=== PATIENT | female | born 1965 | race Caucasian/White ===

== ENCOUNTER 2020-07-16 18:09 | Emergency (ER) | payer OTHER, SELFPAY ==
[2020-07-17 07:05] LABS: Glucose, Whole Blood 120 mg/dL (60-115)
== END 2020-07-16 18:28 | disposition left against medical advice (07) ==
PROVIDERS: Internal Medicine; Emergency Provider Emergency Medicine
DX: F41.9 Anxiety disorder, unspecified (principal); E16.2 Hypoglycemia, unspecified
CPT/HCPCS: 82947; 99281

== ENCOUNTER → 2020-08-09 10:41 | Outpatient (BNVA) | payer OTHER, SELFPAY | PROVIDERS: PCP Hospitalist; Referring Provider Hospitalist; Visit Provider Nurse Practitioner | DX: K59.04 Chronic idiopathic constipation (principal); K21.9 Gastro-esophageal reflux disease without esophagitis; Z79.899 Other long term (current) drug therapy | CPT/HCPCS: 99212 ==

== ENCOUNTER 2020-08-14 15:49 | Emergency (ER) | payer OTHER, SELFPAY ==
[2020-08-14 16:59] VITALS: BP 134/55; PULSE 75; RESP 18; TEMP 36.1; BMI 38.9
--- NOTE | 2020-08-14 17:08 | ECG_ITS ---
Test Reason : CHEST PAIN Blood Pressure : / mmHG Vent. Rate : 066 BPM Atrial Rate : 066 BPM P-R Int : 134 ms QRS Dur : 080 ms QT Int : 432 ms P-R-T Axes : -13 -05 005 degrees QTc Int : 452 ms Normal sinus rhythm Minimal voltage criteria for LVH, may be normal variant Borderline ECG When compared with ECG of 08-JAN-2020 12:45, No significant change was found Referred By: Opal Thomson Electronically Signed By:VINNIE MCKINLEY MD
[2020-08-14 19:42] VITALS: BP 147/72; PULSE 76; RESP 18; O2SAT 94
--- NOTE | 2020-08-14 19:43 | XR_ITS ---
EXAMINATION: XR CHEST CLINICAL INFORMATION: Chest pain COMPARISON: Chest x-ray 01/08/2020 TECHNIQUE: Frontal portable view of the chest was obtained. 7:58 PM FINDINGS: Asymmetric elevation of right diaphragm compared to left. No pulmonary vascular congestion. No airspace opacity or pleural effusion. Cardiac and mediastinal contours are unchanged. XR/XR chest 1V IMPRESSION: No acute abnormality the chest.
[2020-08-14 19:56] LABS: MANUAL DIFF FLAG NO
[2020-08-14 19:58] LABS: Basophils Percent Auto 0.4 % (0-2); Eosinophils Absolute Auto 0.4 X10*3/uL (0.0-0.4); Eosinophils Percent Auto 3.4 % (0-4); Hematocrit 42.5 % (37-47); Hemoglobin 12.8 g/dl (12.0-16.0); Imm Gran Abs Auto 0.03 X10*3/uL (0.00-0.03); Imm Gran Pct Auto 0.3 % (0.0-0.4); Lymphocytes Absolute Auto 2.7 X10*3/uL (1.2-4.9); Lymphocytes Percent Auto 25.1 % (20-40); Mean Corpuscular HGB Conc 30.1 g/dl (31.0-35.0); Mean Corpuscular Hemoglobin 23.8 pg (27.0-33.0); Mean Corpuscular Volume 79.1 fL (80-98); Mean Platelet Volume 11.1 fL (9.4-12.3); Monocytes Absolute Auto 0.7 X10*3/uL (0.1-1.2); Monocytes Percent Auto 6.2 % (2-11); Neutrophils Absolute Auto 6.8 X10*3/uL (2.0-8.3); Neutrophils Percent Auto 64.6 % (45-73); Platelet Count 233 X10*3/uL (160-400); Red Blood Count 5.37 X10*6/uL (4.20-5.50); Red Cell Distribution Width 16.9 % (11.0-16.0); White Blood Count 10.6 X10*3/uL (4.8-10.8)
[2020-08-14 20:31] LABS: Anion Gap 19 (12-20); Blood Urea Nitrogen 20 mg/dL (9-16); Calcium 8.2 mg/dL (8.4-10.2); Carbon Dioxide 23 mmol/L (22-29); Chloride 102 mmol/L (96-108); Creatinine Clr Calc Pharmacy 102.9; Estimated Glomerular Filt Rate > 60; Glucose Random 89 mg/dL (60-115); Potassium 4.1 mmol/l (3.3-5.1); Sodium 140 mmol/L (135-145)
[2020-08-14 20:39] LABS: Troponin-I High Sensitivity < 3.5 ng/L (<3.5-17.0)
--- NOTE | 2020-08-14 21:27 | CT_ITS ---
EXAMINATION: CT ABDOMEN AND PELVIS WITHOUT CONTRAST CLINICAL INFORMATION: Right upper quadrant pain and flank pain COMPARISON: Ultrasound abdomen 06/06/2020 CT abdomen pelvis 03/09/2018 TECHNIQUE: Multidetector volumetric imaging was performed from the superior aspect of the liver through the pubic symphysis. Sagittal and coronal reformatted images were obtained on the technologist's workstation. This CT examination was performed using dose optimization techniques as appropriate, variously including the following: *Automated exposure control *Adjustment of mA and/or kV according to patient size (this includes techniques or standardized protocols for targeted exams where dose is matched to indication/reason for exam; i.e. extremities or head) *Use of iterative reconstruction technique DLP: 1033 mGy-cm FINDINGS: LUNG BASES: The visualized lung bases are unremarkable. LIVER, GALLBLADDER, AND BILIARY TREE: The liver is enlarged measuring almost 19 cm in length and demonstrates marked hepatic steatosis. No focal liver mass or bile duct dilatation is seen. Status post cholecystectomy with clips in the gallbladder fossa. PANCREAS: Unremarkable. SPLEEN: Unremarkable. ADRENAL GLANDS: Unremarkable. KIDNEYS AND URETERS: The kidneys are normal in size, shape, and attenuation. No hydronephrosis, hydroureter, or calculi seen. No perinephric stranding. BLADDER: Empty and cannot be evaluated GASTROINTESTINAL TRACT: The small and large bowel are unremarkable. The appendix is unremarkable. ABDOMINAL WALL: No significant hernia is appreciated. LYMPH NODES: No retroperitoneal lymphadenopathy. VASCULAR: No aortic aneurysm. The left renal vein is retroaortic. PELVIC VISCERA: Unremarkable. OSSEOUS STRUCTURES: Mild degenerative changes noted in the visualized lower thoracic spine. CT/CT abdomen pelvis wo con IMPRESSION: 1. A cause for the patient's right upper quadrant pain and flank pain has not been found. 2. Mildly enlarged fatty liver.
[2020-08-14 21:42] VITALS: BP 145/77; PULSE 77; RESP 16
[2020-08-14 21:56] LABS: Glucose Urine UA NEG (NEG); Leukocyte Esterase Urine NEG (NEG); Nitrite Urine NEG (NEG); PH 5.5 (5.0-8.0); Specific Gravity - Urine >= 1.030 (1.005-1.025); Urine Blood NEG (NEG); Urine Ketones NEG (NEG); Urine Protein NEG (NEG-TRACE)
[2020-08-14 21:57] LABS: Appearance Urine CLEAR; Color Urine YELLOW
[2020-08-14 22:00] VITALS: PULSE 86; RESP 18; O2SAT 100
[2020-08-14 22:25] LABS: Alanine Aminotransferase 39 U/L (0-31); Alkaline Phosphatase 126 U/L (39-117); Aspartate Amino Transferase 28 U/L (5-31); Bilirubin Direct 0.2 mg/dL (0.0-0.5); Bilirubin Total 0.5 mg/dL (0.0-1.0); Lipase 53 U/L (8-78); Total Protein 7.2 g/dL (6.5-8.0)
--- NOTE | 2020-08-14 22:25 | ED_ITS ---
HPI - General Adult General Chief complaint: General Medical Stated complaint: chest pain Time Seen by Provider: 08/14/20 19:57 Source: patient Mode of arrival: ambulatory Limitations: language barrier History of Present Illness HPI narrative: 55-year-old female with past medical history of GERD, vertigo, edema, anxiety, migraines, hypertension, chronic pain, asthma and small-bowel motility disorder presents with chest pain, right upper quadrant abdominal pain, and right flank pain. she has had this pain for several days states the pain comes and goes, and cannot differentiate if the chest pain precedes the abdominal pain. She does have chronic history of abdominal pain and chest pain. she does not report any palpitations, shortness of breath, abdominal distention, dysuria, hematuria, fevers, chills, headaches and changes in vision. Onset (ago): day(s) Location: abdomen Radiation: non-radiation Severity: moderate and similar to prior episodes Severity scale (1-10): 6 Quality: aching Pain Consistency: constant Relieving factors: none Exacerbating factors: movement Associated symptoms: denies other symptoms Treatments prior to arrival: none Related Data Home Medications Medication Instructions Recorded Confirmed albuterol sulfate mg INHALATION TID PRN 07/04/20 07/04/20 buspirone 15 mg tablet 15 mg PO BID 07/04/20 07/04/20 diphenhydramine HCl 25 mg capsule 25 mg PO BEDTIME 07/04/20 07/04/20 fluticasone propionate 110 INHALATION 07/04/20 07/04/20 mcg/actuation HFA aerosol inhaler fluticasone propionate 50 INTRANASAL 07/04/20 07/04/20 mcg/actuation nasal spray,suspension hydrochlorothiazide 12.5 mg capsule 12.5 mg PO DAILY 07/04/20 07/04/20 hydrocortisone 1 % topical cream 1 applic TOPICAL TID PRN 07/04/20 07/04/20 loratadine 10 mg tablet 10 mg PO DAILY 07/04/20 07/04/20 metoprolol tartrate 50 mg tablet 50 mg PO BID 07/04/20 07/04/20 simethicone 180 mg capsule mg PO 07/04/20 07/04/20 zolmitriptan 5 mg tablet mg PO 07/04/20 07/04/20 famotidine 40 mg tablet 40 mg PO BID 08/09/20 08/09/20 metoclopramide HCl 10 mg tablet mg PO .tidac tab 08/09/20 08/09/20 Previous Rx's Medication Instructions Recorded metformin 500 mg tablet 500 mg PO BID 30 Days #60 tab 07/09/20 ondansetron HCl 8 mg tablet 8 mg PO DAILY PRN 30 Days #30 tab 07/10/20 furosemide 40 mg tablet 40 mg PO DAILY 30 Days #30 tab 07/19/20 meclizine 25 mg tablet 25 mg PO TID 30 Days #90 tab 08/05/20 hyoscyamine sulfate 0.125 mg tablet 0.125 mg PO QID #120 tab 08/09/20 Allergies Allergy/AdvReac Type Severity Reaction Status Date / Time Penicillins Allergy Severe swelling Verified 08/09/20 10:43 adhesive tape [ADHESIVE TAPE] Allergy Intermediate RASH Verified 08/09/20 10:43 amoxicillin [AMOXICILLIN] Allergy Intermediate RASH,SWELLING, Verified 08/09/20 10:43 RASH/SWELLING latex Allergy Intermediate Rash Verified 08/09/20 10:43 Motrin Allergy Intermediate hypertensio Verified 08/09/20 10:43 n ibuprofen [Ibuprofen] AdvReac Intermediate BP GOES UP Verified 08/09/20 10:43 Review of Systems Review of Systems: Constitutional: No Weight loss, No Fever, No Chills, No Night Sweats, No Fatigue, No Malaise ENT/Mouth: No Hearing loss, No Ear Pain, No Nasal Congestion, No Sinus Pain, No Hoarseness, No sore throat, No Rhinorrhea, No Swallowing Difficulty Eyes: No Eye Pain, No Swelling, No Redness, No Foreign Body, No Discharge, No Vision Changes Cardiovascular: pos Chest Pain, No SOB, no Dyspnea on Exertion, No Orthopnea, No Edema, No Palpitations Respiratory: No Cough, No Sputum, No Wheezing, No Smoke Exposure, No Dyspnea Gastrointestinal: no Nausea, No Vomiting, No Diarrhea, pos abdominal Pain, No Hematochezia, No Melena Genitourinary: No irregular bleeding, No Dysuria, No Urinary Frequency, No Hematuria, No Urinary Incontinence, No Urgency, pos right Flank Pain, No Urinary Flow Changes, No Hesitancy Musculoskeletal: No joint pain, No Myalgias, No Joint Swelling Skin: No Skin Lesions, No rash Neuro: No Weakness, No Numbness, No Paresthesias, No Loss of Consciousness, No Dizziness, No Headache Psych: No Anxiety/Panic, No Depression, No SI/HI/AH/VH Heme/Lymph: No Bruising, No Bleeding,No Lymphadenopathy Endocrine: No Polyuria, No Polydipsia, No Temperature Intolerance Yes all other systems are reviewed and are negative [facility] Past Medical History Attestation statement: The following information was validated with the patient. Medical History Asthma Chronic pain (Unknown) Surgical History Delivery by section History of cholecystectomy History of esophagogastroduodenoscopy (EGD) History of hysterectomy Hx of colonoscopy Family History Family History Father Past heart attack Anxiety Mother MOF (multiple organ failure) Brother HIV (human immunodeficiency virus infection) Sister Ovarian cancer Uterine cancer Bone cancer Lupus Daughter Guillain-Battiest Sister Lupus History of open heart surgery Family/Other FH: mental illness Depression Maternal Aunt Breast cancer Maternal Aunt Tumor Social History Social History Alcohol intake: current Alcohol intake frequency: holidays/special occasions only Smoking Status: Unknown if ever smoked Use of substances other than those prescribed or required for medical reasons: No Advance Directives: No Advance Directives Information Provided: No Physical Exam Vital Signs: Vital Signs: Last Vital Signs Temp 97 F 08/14/20 16:59 Pulse 86 08/14/20 22:00 Resp 18 08/14/20 22:00 BP 145/77 H 08/14/20 21:42 Pulse Ox 100 08/14/20 22:00 Body Mass Index 38.9 Appearance: Alert. Oriented X3. No acute distress. Eyes: Pupils equal, round and reactive to light. ENT: Pharynx normal. Neck: Normal inspection. Neck supple. CVS: Normal heart rate and rhythm. Pulses normal. Respiratory: No respiratory distress. Breath sounds normal. Abdomen: Soft and tender to deep palpation to the right upper quadrant, positive CVA tenderness to the right side. Skin: Skin warm and dry. Normal skin color. Normal skin turgor. Extremities: No lower extremity edema. Neuro: No motor deficit. No sensory deficit. Course Course Course Narrative: 55-year-old female with chronic abdominal and chest pain, hypertension, anxiety, asthma, and edema presents with chest pain, and right upper quadrant and right flank pain. Plan of care is to rule out ACS, and acute abdomen. CBC and Chem 7 are unremarkable, BUN elevated at 20 which could possibly be due to dehydration, patient was resuscitated with 1 L of fluid, ALT and alkaline phos mildly elevated, troponins are negative, EKG is normal sinus, CT scan of the abdomen is negative for acute findings needing emergent intervention at this time. Highly unlikely this is ACS, we ruled out acute abdomen with CT of abdomen. Plan of care is to discharge home and for patient to follow-up with primary care physician. Patient verbalized understanding of and agrees to plan of care to discharge home. Medical Decision Making Differential Diagnosis Differential Diagnosis: ACS, acute abdomen, renal colic, pneumonia Medical Records Medical records reviewed: Yes I reviewed the patient's medical records. Lab Data Lab results reviewed: Yes I reviewed the patient's lab results. Result diagrams: 08/14/20 19:45 08/14/20 19:45 Labs: Lab Results 08/14/20 08/14/20 08/14/20 Range/Units 19:45 19:45 19:45 WBC 10.6 (4.8-10.8) X10*3/uL RBC 5.37 (4.20-5.50) X10*6/uL Hgb 12.8 (12.0-16.0) g/dl Hct 42.5 (37-47) % MCV 79.1 L (80-98) fL MCH 23.8 L (27.0-33.0) pg MCHC 30.1 L (31.0-35.0) g/dl RDW 16.9 H (11.0-16.0) % Plt Count 233 (160-400) X10*3/uL MPV 11.1 (9.4-12.3) fL Immature Gran % (Auto) 0.3 (0.0-0.4) % Neut % (Auto) 64.6 (45-73) % Lymph % (Auto) 25.1 (20-40) % [place] % (Auto) 6.2 (2-11) % Eos % (Auto) 3.4 (0-4) % Baso % (Auto) 0.4 (0-2) % Lymph # (Auto) 2.7 (1.2-4.9) X10*3/uL [place] # (Auto) 0.7 (0.1-1.2) X10*3/uL Eos # (Auto) 0.4 (0.0-0.4) X10*3/uL Baso # (Auto) 0.0 (0.0-0.2) X10*3/uL Abs Immat Gran (auto) 0.03 (0.00-0.03) X10*3/uL Absolute Neuts (auto) 6.8 (2.0-8.3) X10*3/uL Absolute Nucleated RBC 0.000 (0.0-0.012) X10*3/uL Nucleated RBC % (auto) 0.0 (0.0-0.2) /100WBC Hold Blue Top SEE NOTE Sodium 140 (135-145) mmol/L Potassium 4.1 (3.3-5.1) mmol/l Chloride 102 (96-108) mmol/L Carbon Dioxide 23 (22-29) mmol/L Anion Gap 19 (12-20) BUN 20 H (9-16) mg/dL Creatinine 0.81 (0.5-1.4) mg/dL Estim Creat Clear Calc 102.9 Estimated GFR > 60 Random Glucose 89 (60-115) mg/dL Calcium 8.2 L (8.4-10.2) mg/dL Total Bilirubin 0.5 (0.0-1.0) mg/dL Direct Bilirubin 0.2 (0.0-0.5) mg/dL AST 28 (5-31) U/L ALT 39 H (0-31) U/L Alkaline Phosphatase 126 H (39-117) U/L Troponin I High Sens (<3.5-17.0) ng/L Total Protein 7.2 (6.5-8.0) g/dL Albumin 4.0 (3.5-5.0) g/dL Lipase 53 (8-78) U/L Urine Color Urine Appearance Urine pH (5.0-8.0) Ur Specific [place] (1.005-1.025) Urine Protein (NEG-TRACE) MG/DL Urine Glucose (UA) (NEG) MG/DL Urine Ketones (NEG) MG/DL Urine Blood (NEG) Urine Nitrite (NEG) Ur Leukocyte Esterase (NEG) 08/14/20 08/14/20 Range/Units 19:45 21:45 WBC (4.8-10.8) X10*3/uL RBC (4.20-5.50) X10*6/uL Hgb (12.0-16.0) g/dl Hct (37-47) % MCV (80-98) fL MCH (27.0-33.0) pg MCHC (31.0-35.0) g/dl RDW (11.0-16.0) % Plt Count (160-400) X10*3/uL MPV (9.4-12.3) fL Immature Gran % (Auto) (0.0-0.4) % Neut % (Auto) (45-73) % Lymph % (Auto) (20-40) % [place] % (Auto) (2-11) % Eos % (Auto) (0-4) % Baso % (Auto) (0-2) % Lymph # (Auto) (1.2-4.9) X10*3/uL [place] # (Auto) (0.1-1.2) X10*3/uL Eos # (Auto) (0.0-0.4) X10*3/uL Baso # (Auto) (0.0-0.2) X10*3/uL Abs Immat Gran (auto) (0.00-0.03) X10*3/uL Absolute Neuts (auto) (2.0-8.3) X10*3/uL Absolute Nucleated RBC (0.0-0.012) X10*3/uL Nucleated RBC % (auto) (0.0-0.2) /100WBC Hold Blue Top Sodium (135-145) mmol/L Potassium (3.3-5.1) mmol/l Chloride (96-108) mmol/L Carbon Dioxide (22-29) mmol/L Anion Gap (12-20) BUN (9-16) mg/dL Creatinine (0.5-1.4) mg/dL Estim Creat Clear Calc Estimated GFR Random Glucose (60-115) mg/dL Calcium (8.4-10.2) mg/dL Total Bilirubin (0.0-1.0) mg/dL Direct Bilirubin (0.0-0.5) mg/dL AST (5-31) U/L ALT (0-31) U/L Alkaline Phosphatase (39-117) U/L Troponin I High Sens < 3.5 (<3.5-17.0) ng/L Total Protein (6.5-8.0) g/dL Albumin (3.5-5.0) g/dL Lipase (8-78) U/L Urine Color YELLOW Urine Appearance CLEAR Urine pH 5.5 (5.0-8.0) Ur Specific [place] >= 1.030 H (1.005-1.025) Urine Protein NEG (NEG-TRACE) MG/DL Urine Glucose (UA) NEG (NEG) MG/DL Urine Ketones NEG (NEG) MG/DL Urine Blood NEG (NEG) Urine Nitrite NEG (NEG) Ur Leukocyte Esterase NEG (NEG) Imaging Data CT scan - abdomen: Attestation: I personally reviewed and interpreted this imaging study as follows: Radiologist's impression: FINDINGS: LUNG BASES: The visualized lung bases are unremarkable. LIVER, GALLBLADDER, AND BILIARY TREE: The liver is enlarged measuring almost 19 cm in length and demonstrates marked hepatic steatosis. No focal liver mass or bile duct dilatation is seen. Status post cholecystectomy with clips in the gallbladder fossa. PANCREAS: Unremarkable. SPLEEN: Unremarkable. ADRENAL GLANDS: Unremarkable. KIDNEYS AND URETERS: The kidneys are normal in size, shape, and attenuation. No hydronephrosis, hydroureter, or calculi seen. No perinephric stranding. BLADDER: Empty and cannot be evaluated GASTROINTESTINAL TRACT: The small and large bowel are unremarkable. The appendix is unremarkable. ABDOMINAL WALL: No significant hernia is appreciated. LYMPH NODES: No retroperitoneal lymphadenopathy. VASCULAR: No aortic aneurysm. The left renal vein is retroaortic. PELVIC VISCERA: Unremarkable. OSSEOUS STRUCTURES: Mild degenerative changes noted in the visualized lower thoracic spine. CT/CT abdomen pelvis wo con IMPRESSION: 1. A cause for the patient's right upper quadrant pain and flank pain has not been found. 2. Mildly enlarged fatty liver. Chest x-ray: Attestation: I personally reviewed and interpreted this imaging study as follows: Radiologist's impression: COMPARISON: Chest x-ray 01/08/2020 TECHNIQUE: Frontal portable view of the chest was obtained. 7:58 PM FINDINGS: Asymmetric elevation of right diaphragm compared to left. No pulmonary vascular congestion. No airspace opacity or pleural effusion. Cardiac and mediastinal contours are unchanged. XR/XR chest 1V IMPRESSION: No acute abnormality the chest. ECG Data Attestation: I personally reviewed and interpreted this ECG as follows: Prior ECG tracings: available for review Interpretation: Vent. rate 66 BPM OK interval 134 ms QRS duration 80 ms QT/QTc 432/452 ms P-R-T axes -13 -5 5 Normal sinus rhythm Minimal voltage criteria for LVH, may be normal variant Borderline ECG When compared with ECG of 08-JAN-2020 12:45, No significant change was found date August 14, 2020, time 5:08 p.m. Scores Heart Score History: -0- slightly suspicious ECG: -1- non specific repolarization disturbance Age: -1- >45 - <65 Risk factory: -1- 1 or 2 risk factors Troponin: -0- < or = normal limit Score: 3 Risk: 1.7% Discharge Plan Discharge Clinical Impression: Right sided abdominal pain, Atypical chest pain Patient Disposition: Home, Self-Care Instructions: Chest Pain (ED), Flank Pain (ED), Chronic Abdominal Pain (ED) Additional Instructions: you were evaluated for chest and abdominal pain. EKG is normal sinus rhythm, troponins are negative, lab values are normal. CT scan of the abdomen is negative for acute findings requiring emergent intervention at this time, chest x-ray is negative for acute findings. Thank you for choosing this emergency department for evaluation. Please fol low-up with primary care physician as needed. Return to the emergency department for any new, concerning, or worsening symptoms. Prescriptions: No Action metformin 500 mg tablet 500 mg PO BID 30 Days Qty: 60 RF: 6 ondansetron HCl 8 mg tablet 8 mg PO DAILY PRN (Reason: nausea and vomiting) 30 Days Qty: 30 RF: 3 furosemide 40 mg tablet 40 mg PO DAILY 30 Days Qty: 30 RF: 6 meclizine 25 mg tablet 25 mg PO TID 30 Days Qty: 90 RF: 5 buspirone 15 mg tablet 15 mg PO BID RF: 0 hydrochlorothiazide 12.5 mg capsule 12.5 mg PO DAILY RF: 0 albuterol sulfate 2.5 mg /3 mL (0.083 %) solution for nebulization inhalation TID PRNRF: 0 loratadine 10 mg tablet 10 mg PO DAILY RF: 0 simethicone 180 mg capsule PO RF: 0 fluticasone propionate 50 mcg/actuation spray,suspension intranasal RF: 0 metoprolol tartrate 50 mg tablet 50 mg PO BID RF: 0 zolmitriptan 5 mg tablet PO RF: 0 Flovent HFA 110 mcg/actuation HFA aerosol inhaler inhalation RF: 0 hydrocortisone [Anti-Itch (HC)] 1 % cream 1 applic topical TID PRNRF: 0 diphenhydramine HCl [Banophen] 25 mg capsule 25 mg PO BEDTIME RF: 0 famotidine 40 mg tablet 40 mg PO BID RF: 0 hyoscyamine sulfate [Levsin] 0.125 mg tablet 0.125 mg PO QID Qty: 120 RF: 4 metoclopramide HCl 10 mg tablet PO .tidac RF: 0 Interventions: ED Discharge Assessment Last Done: 08/14/20 23:25 Discharge Date/Time: 08/14/20 23:31
== END 2020-08-14 23:31 | disposition home or self-care (01) ==
PROVIDERS: Nurse Practitioner Family; Emergency Provider Emergency Medicine Emergency Medical Services; PCP Hospitalist
DX: R07.9 Chest pain, unspecified (principal); R10.11 Right upper quadrant pain; I10 Essential (primary) hypertension; Z79.899 Other long term (current) drug therapy
CPT/HCPCS: 36415; 71045; 74176; 80048; 80076; 81003; 83690; 84484; 85025; 93005; 99284

== ENCOUNTER → 2020-09-17 14:12 | Outpatient (BNVA) | payer OTHER, SELFPAY | PROVIDERS: PCP Hospitalist; Referring Provider Hospitalist; Visit Provider Nurse Practitioner | DX: Z76.89 Persons encountering health services in other specified circumstances (principal) ==

== ENCOUNTER → 2020-09-19 14:57 | Outpatient (BNVA) | payer OTHER, SELFPAY | PROVIDERS: PCP Hospitalist; Visit Provider Student in an Organized Health Care Education/Training Program | DX: Z76.89 Persons encountering health services in other specified circumstances (principal) ==

== ENCOUNTER → 2020-09-25 14:00 | Outpatient (BNVA) | payer OTHER, SELFPAY | PROVIDERS: PCP Hospitalist; Visit Provider Anesthesiology | DX: M79.7 Fibromyalgia (principal); M47.816 Spondylosis without myelopathy or radiculopathy, lumbar region; G89.4 Chronic pain syndrome; E66.01 Morbid (severe) obesity due to excess calories; Z68.38 Body mass index [BMI] 38.0-38.9, adult | CPT/HCPCS: 99212 ==

== ENCOUNTER 2021-02-17 18:18 | Emergency (ER) | payer OTHER, SELFPAY ==
--- NOTE | ~2021-02-17 | XR_ITS ---
EXAMINATION: XR CHEST CLINICAL INFORMATION: Cough. COMPARISON: Chest done on 08/14/2020. TECHNIQUE: 2 views of the chest were obtained. FINDINGS: Asymmetric elevated right hemidiaphragm and nonspecific linear airspace disease at right lung base appears stable since 08/14/2020. The aerated lung mac bilaterally otherwise appear clear, unchanged. The cardiac mediastinal silhouette is within normal limit. No evidence of any pleural effusion or pneumothorax. The visualized upper abdomen is unremarkable. XR/XR chest 2V IMPRESSION: Stable radiographic appearance of the chest. Specifically, previously identified asymmetric elevated right hemidiaphragm and nonspecific linear right lung base airspace disease appear unchanged since 08/14/2020. No new abnormalities.
[2021-02-17 20:06] VITALS: BP 174/92; PULSE 77; RESP 18; TEMP 37.2; O2SAT 96; BMI 39.9
[2021-02-17 21:59] VITALS: BP 156/76; PULSE 81; RESP 23; TEMP 36.9; O2SAT 96
--- NOTE | 2021-02-17 22:06 | ED.GENADULT ---
HPI - General Adult General Chief complaint: Upper Respiratory Symptoms Stated complaint: covid symptoms Time Seen by Provider: 02/17/21 21:56 Source: patient Mode of arrival: ambulatory Limitations: no limitations History of Present Illness HPI narrative: Patient comes to emergency room complaining diffuse body ache, cough for 5 days, subjective fevers, feeling weak and tired. Patient states she called her primary care physician she was instructed to come to the emergency room for further evaluation. Patient also states she has been having diffuse diarrhea for 5 days, she has been trying to take Pepto-Bismol but is not slow no diarrhea. Also, patient complaining of a migraine headache for which she has not taking any medication. Patient complaining of diffuse pain, states everything hurts from head to toe. Denies numbness and tingling of extremities Related Data Home Medications Medication Instructions Recorded Confirmed quetiapine 100 mg tablet 100 mg PO BEDTIME 10/10/20 11/14/20 quetiapine 50 mg tablet 50 mg PO BEDTIME 10/10/20 11/14/20 vaporizers #1 ea 10/10/20 11/14/20 alcohol swabs pad TOPICAL .3-4 times daily ea 11/14/20 11/14/20 miscellaneous medical supply #1 ea 12/11/20 Previous Rx's Medication Instructions Recorded blood pressure test kit-wrist #1 ea 09/13/20 water for irrigation, sterile 1 irrig IRRIGATION DAILY #8000 ml 09/13/20 acetaminophen 650 mg 650 mg PO Q12H PRN #60 tab 11/14/20 tablet,extended release albuterol sulfate 2.5 mg INHALATION TID PRN 30 Days 11/14/20 #180 ml baclofen 10 mg tablet 10 mg PO TID 30 Days #90 tab 11/14/20 buspirone 15 mg tablet 15 mg PO BID #60 tab 11/14/20 cyclobenzaprine 10 mg tablet 10 mg PO BID 30 Days #60 tab 11/14/20 diphenhydramine HCl 25 mg capsule 25 mg PO BEDTIME 90 Days #90 cap 11/14/20 duloxetine 60 mg capsule,delayed 60 mg PO DAILY 90 Days #90 cap 11/14/20 release famotidine 40 mg tablet 40 mg PO BEDTIME 30 Days #30 tab 11/14/20 fluticasone propionate 110 2 puff INHALATION BID 30 Days #12 g 11/14/20 mcg/actuation HFA aerosol inhaler fluticasone propionate 50 2 spray INTRANASAL DAILY 30 Days 11/14/20 mcg/actuation nasal #16 g spray,suspension furosemide 40 mg tablet 40 mg PO DAILY 30 Days #30 tab 11/14/20 gabapentin 300 mg capsule 300 mg PO TID 30 Days #90 cap 11/14/20 hydrochlorothiazide 12.5 mg capsule 12.5 mg PO DAILY 90 Days #90 cap 11/14/20 hydrocortisone 2.5 % topical cream 1 appl RI BID PRN #30 g 11/14/20 with perineal applicator hyoscyamine sulfate 0.125 mg tablet 0.125 mg PO QID #120 tab 11/14/20 loratadine 10 mg tablet 10 mg PO DAILY 90 Days #90 tab 11/14/20 meclizine 25 mg tablet 25 mg PO TID 30 Days #90 tab 11/14/20 metformin 500 mg tablet 500 mg PO BID 30 Days #60 tab 11/14/20 metoclopramide HCl 10 mg tablet 10 mg PO .tidac 90 Days #90 tab 11/14/20 metoprolol tartrate 50 mg tablet 50 mg PO BID 90 Days #180 tab 11/14/20 nabumetone 500 mg tablet 500 mg PO BID #60 tab 11/14/20 prochlorperazine maleate 10 mg 10 mg PO Q8H PRN #60 tab 11/14/20 tablet simethicone 180 mg capsule 180 mg PO .q 8 hours 30 Days #90 11/14/20 cap zolmitriptan 5 mg tablet 5 mg PO Q2-4H 30 Days #20 tab 11/14/20 miscellaneous medical supply #1 ea 12/11/20 hydroxyzine HCl 25 mg tablet 25 mg PO TID PRN 30 Days #90 tab 12/19/20 loperamide 2 mg PO Q4H PRN #10 cap 02/18/21 Allergies Allergy/AdvReac Type Severity Reaction Status Date / Time Penicillins Allergy Severe swelling Verified 02/17/21 22:04 adhesive tape [ADHESIVE TAPE] Allergy Intermediate RASH Verified 02/17/21 22:04 amoxicillin [AMOXICILLIN] Allergy Intermediate RASH,SWELLING, Verified 02/17/21 22:04 RASH/SWELLING latex Allergy Intermediate Rash Verified 02/17/21 22:04 Motrin Allergy Intermediate hypertensio Verified 02/17/21 22:04 n ibuprofen [Ibuprofen] AdvReac Intermediate BP GOES UP Verified 02/17/21 22:04 Review of Systems Review of Systems: Constitutional : No Weight loss, subjective fever, chills, fatigue, general malaise ENT/Mouth : No Hearing loss, No Ear Pain, No Nasal Congestion, No Sinus Pain, No Hoarseness, mild sore throat, No Rhinorrhea, No Swallowing Difficulty Eyes: No Eye Pain, No Swelling, No Redness, No Foreign Body, No Discharge, No Vision Changes Cardiovascular : No Chest Pain, No SOB, No Dyspnea on Exertion, No Orthopnea, No Edema, No Palpitations Respiratory : Dry Cough, No Sputum, No Wheezing, No Smoke Exposure, No Dyspnea Gastrointestinal : Complaining of Nausea, No Vomiting, complaining of Diarrhea, No Constipation, No abdominal Pain, No Hematochezia, No Melena Genitourinary : no irregular bleeding, No Dysuria, No Urinary Frequency, No Hematuria, No Urinary Incontinence, No Urgency, No Flank Pain, No Urinary Flow Changes, No Hesitancy Musculoskeletal : No joint pain, acute on chronic Myalgias, No Joint Swelling Skin : No Skin Lesions, No rash Neuro : No Weakness, No Numbness, No Paresthesias, No Loss of Consciousness, No Dizziness, No Headache Psych : No Anxiety/Panic, No Depression, No SI/HI/AH/VH, No Social Issues, Heme/Lymph: No Bruising, No Bleeding,No Lymphadenopathy Endocrine : No Polyuria, No Polydipsia, No Temperature Intolerance PMFSH Past Medical History Medical History Asthma Chronic pain (Unknown) Chronic pain syndrome Fibromyalgia Morbid (severe) obesity due to excess calories Spondylosis of lumbar region without myelopathy or radiculopathy Surgical History Delivery by section History of cholecystectomy History of esophagogastroduodenoscopy (EGD) History of hysterectomy Hx of colonoscopy Family History Family History Father Past heart attack Anxiety Mother MOF (multiple organ failure) Brother HIV (human immunodeficiency virus infection) Sister Ovarian cancer Uterine cancer Bone cancer Lupus Daughter Guillain-[place] Sister Lupus History of open heart surgery Family/Other FH: mental illness Depression Maternal Aunt Breast cancer Maternal Aunt Tumor Social History Social History Alcohol intake: current Alcohol intake frequency: holidays/special occasions only Smoking Status: Never smoker Second Hand Smoke Exposure: Yes Advance Directives: No Advance Directives Information Provided: Yes Patient : No Physical Exam Vital Signs: Vital Signs: Last Vital Signs Temp 98.2 F 02/17/21 23:39 Pulse 85 02/17/21 23:39 Resp 16 02/17/21 23:39 BP 122/74 02/17/21 23:39 Pulse Ox 96 02/17/21 23:39 Body Mass Index 39.9 Appearance: Alert. Oriented X3. No acute distress. Patient is well-appearing but anxious Eyes: Pupils equal, round and reactive to light. ENT: Pharynx normal. Palpation to the left side of the neck, patient able to flex and extend the neck with normal range of motion Neck: Normal inspection. Neck supple. No lymph nodes noted. No crepitus CVS: Normal heart rate and rhythm. Pulses normal. Normal S1 and S2 Respiratory: No respiratory distress. Breath sounds normal. No Wheezing. No rales Abdomen: Soft and nontender. No rigidity. No distention. good BS x4 Skin: Skin warm and dry. Normal skin color. Normal skin turgor. Extremities: No lower extremity edema. Pain to palpation in all extremities, states it is chronic Neuro: Oriented X 3. No motor deficit. No sensory deficit. Moving all extermities. No slurred speech. Course Course Course Narrative: I discussed the labs with the patient, patient tested negative for COVID, white blood cell count is elevated likely secondary to a viral infection causing vomiting and diarrhea. Chest x-ray remains unchanged. Patient did not have any diarrhea here in the emergency room. As mentioned above, patient does not have numbness and tingling of upper or lower extremities, only diffuse acute on chronic pain. Patient states that is the same say station that she has throughout her whole body, not specifically to extremities. At this time, Guillain-[place] is not suspected Medical Decision Making Lab Data Result diagrams: 02/17/21 22:27 02/17/21 22:27 Labs: Lab Results 02/17/21 02/17/21 02/17/21 Range/Units 22:08 22:27 22:27 WBC 13.5 H (4.8-10.8) X10*3/uL RBC 5.63 H (4.20-5.50) X10*6/uL Hgb 13.3 (12.0-16.0) g/dl Hct 45.0 (37-47) % MCV 79.9 L (80-98) fL MCH 23.6 L (27.0-33.0) pg MCHC 29.6 L (31.0-35.0) g/dl RDW 16.6 H (11.0-16.0) % Plt Count 292 D (160-400) X10*3/uL MPV 11.1 (9.4-12.3) fL Immature Gran % (Auto) 0.9 H (0.0-0.4) % Neut % (Auto) 70.4 (45-73) % Lymph % (Auto) 19.4 L (20-40) % [place] % (Auto) 5.3 (2-11) % Eos % (Auto) 3.6 (0-4) % Baso % (Auto) 0.4 (0-2) % Lymph # (Auto) 2.6 (1.2-4.9) X10*3/uL [place] # (Auto) 0.7 (0.1-1.2) X10*3/uL Eos # (Auto) 0.5 H (0.0-0.4) X10*3/uL Baso # (Auto) 0.1 (0.0-0.2) X10*3/uL Abs Immat Gran (auto) 0.12 H (0.00-0.03) X10*3/uL Absolute Neuts (auto) 9.5 H (2.0-8.3) X10*3/uL Absolute Nucleated RBC 0.000 (0.0-0.012) X10*3/uL Nucleated RBC % (auto) 0.0 (0.0-0.2) /100WBC Sodium 139 (135-145) mmol/L Potassium 4.6 (3.3-5.1) mmol/L Chloride 103 (96-108) mmol/L Carbon Dioxide 24 (22-29) mmol/L Anion Gap 17 (12-20) BUN 13 (9-16) mg/dL Creatinine 0.74 (0.5-1.4) mg/dL Estim Creat Clear Calc 114.2 Estimated GFR > 60 Random Glucose 79 (60-115) mg/dL Calcium 9.4 D (8.4-10.2) mg/dL Total Bilirubin 0.5 (0.0-1.0) mg/dL Direct Bilirubin 0.2 (0.0-0.5) mg/dL AST 25 (5-31) U/L ALT 44 H (0-31) U/L Alkaline Phosphatase 130 H (39-117) U/L Total Protein 8.0 (6.5-8.0) g/dL Albumin 4.4 (3.5-5.0) g/dL Urine Color Urine Appearance Urine pH (5.0-8.0) Ur Specific [place] (1.005-1.025) Urine Protein (NEG-TRACE) MG/DL Urine Glucose (UA) (NEG) MG/DL Urine Ketones (NEG) MG/DL Urine Blood (NEG) Urine Nitrite (NEG) Ur Leukocyte Esterase (NEG) Coronavirus (PCR) NEGATIVE (Negative) Influenza Type A (PCR) NEGATIVE (Negative) Influenza Type B (PCR) NEGATIVE (Negative) RSV RNA Qual (PCR) NEGATIVE (Negative) 02/17/21 Range/Units 22:39 WBC (4.8-10.8) X10*3/uL RBC (4.20-5.50) X10*6/uL Hgb (12.0-16.0) g/dl Hct (37-47) % MCV (80-98) fL MCH (27.0-33.0) pg MCHC (31.0-35.0) g/dl RDW (11.0-16.0) % Plt Count (160-400) X10*3/uL MPV (9.4-12.3) fL Immature Gran % (Auto) (0.0-0.4) % Neut % (Auto) (45-73) % Lymph % (Auto) (20-40) % [place] % (Auto) (2-11) % Eos % (Auto) (0-4) % Baso % (Auto) (0-2) % Lymph # (Auto) (1.2-4.9) X10*3/uL [place] # (Auto) (0.1-1.2) X10*3/uL Eos # (Auto) (0.0-0.4) X10*3/uL Baso # (Auto) (0.0-0.2) X10*3/uL Abs Immat Gran (auto) (0.00-0.03) X10*3/uL Absolute Neuts (auto) (2.0-8.3) X10*3/uL Absolute Nucleated RBC (0.0-0.012) X10*3/uL Nucleated RBC % (auto) (0.0-0.2) /100WBC Sodium (135-145) mmol/L Potassium (3.3-5.1) mmol/L Chloride (96-108) mmol/L Carbon Dioxide (22-29) mmol/L Anion Gap (12-20) BUN (9-16) mg/dL Creatinine (0.5-1.4) mg/dL Estim Creat Clear Calc Estimated GFR Random Glucose (60-115) mg/dL Calcium (8.4-10.2) mg/dL Total Bilirubin (0.0-1.0) mg/dL Direct Bilirubin (0.0-0.5) mg/dL AST (5-31) U/L ALT (0-31) U/L Alkaline Phosphatase (39-117) U/L Total Protein (6.5-8.0) g/dL Albumin (3.5-5.0) g/dL Urine Color YELLOW Urine Appearance CLEAR Urine pH 5.5 (5.0-8.0) Ur Specific [place] >= 1.030 H (1.005-1.025) Urine Protein NEG (NEG-TRACE) MG/DL Urine Glucose (UA) NEG (NEG) MG/DL Urine Ketones NEG (NEG) MG/DL Urine Blood NEG (NEG) Urine Nitrite NEG (NEG) Ur Leukocyte Esterase NEG (NEG) Coronavirus (PCR) (Negative) Influenza Type A (PCR) (Negative) Influenza Type B (PCR) (Negative) RSV RNA Qual (PCR) (Negative) Discharge Plan Discharge Clinical Impression: Malaise and fatigue, Acute viral syndrome Diarrhea Qualifiers: Diarrhea type: unspecified type Qualified Code(s): R19.7 - Diarrhea, unspecified Headache Qualifiers: Headache type: unspecified Headache chronicity pattern: unspecified pattern Patient Disposition: Home, Self-Care Instructions: Acute Headache (ED), Acute Diarrhea (ED) Additional Instructions: Please follow-up with your primary care physician tomorrow. If you have any worsening or new symptoms, please return to the emergency room or call 911 Prescriptions: New loperamide 2 mg capsule 2 mg PO Q4H PRN (Reason: loose stool) Qty: 10 RF: 0 No Action (DME) miscellaneous medical supply Misc See Rx Instructions .ROUTE .MEDSUPPLY Qty: 1 RF: 0 (DME) miscellaneous medical supply Misc See Rx Instructions .ROUTE .MEDSUPPLY Qty: 1 RF: 0 hydroxyzine HCl 25 mg tablet 25 mg PO TID PRN (Reason: anxiety) 30 Days Qty: 90 RF: 6 acetaminophen [Tylenol Arthritis Pain] 650 mg tablet extended release 650 mg PO Q12H PRN (Reason: pain) Qty: 60 RF: 3 albuterol sulfate 2.5 mg /3 mL (0.083 %) solution for nebulization 2.5 mg inhalation TID PRN (Reason: shortness of breath or wheezing) 30 Days Qty: 180 RF: 1 alcohol swabs Pads, Medicated topical .3-4 times daily RF: 0 baclofen 10 mg tablet 10 mg PO TID 30 Days Qty: 90 RF: 3 buspirone 15 mg tablet 15 mg PO BID Qty: 60 RF: 2 cyclobenzaprine 10 mg tablet 10 mg PO BID 30 Days Qty: 60 RF: 11 diphenhydramine HCl [Banophen] 25 mg capsule 25 mg PO BEDTIME 90 Days Qty: 90 RF: 1 duloxetine 60 mg capsule,delayed release(DR/EC) 60 mg PO DAILY 90 Days Qty: 90 RF: 1 famotidine 40 mg tablet 40 mg PO BEDTIME 30 Days Qty: 30 RF: 0 fluticasone propionate 50 mcg/actuation spray,suspension 2 spray intranasal DAILY 30 Days Qty: 16 RF: 4 fluticasone propionate 110 mcg/actuation HFA aerosol inhaler 2 puff inhalation BID 30 Days Qty: 12 RF: 5 furosemide 40 mg tablet 40 mg PO DAILY 30 Days Qty: 30 RF: 6 gabapentin 300 mg capsule 300 mg PO TID 30 Days Qty: 90 RF: 4 hydrochlorothiazide 12.5 mg capsule 12.5 mg PO DAILY 90 Days Qty: 90 RF: 1 hydrocortisone [Proctosol HC] 2.5 % cream with perineal applicator 1 appl RI BID PRN (Reason: hemorrhoids) Qty: 30 RF: 3 hyoscyamine sulfate [Levsin] 0.125 mg tablet 0.125 mg PO QID Qty: 120 RF: 4 loratadine 10 mg tablet 10 mg PO DAILY 90 Days Qty: 90 RF: 3 meclizine 25 mg tablet 25 mg PO TID 30 Days Qty: 90 RF: 5 metformin 500 mg tablet 500 mg PO BID 30 Days Qty: 60 RF: 6 metoclopramide HCl 10 mg tablet 10 mg PO .tidac 90 Days Qty: 90 RF: 1 metoprolol tartrate 50 mg tablet 50 mg PO BID 90 Days Qty: 180 RF: 1 nabumetone 500 mg tablet 500 mg PO BID Qty: 60 RF: 1 prochlorperazine maleate [Compazine] 10 mg tablet 10 mg PO Q8H PRN (Reason: nausea and vomiting) Qty: 60 RF: 1 simethicone 180 mg capsule 180 mg PO .q 8 hours 30 Days Qty: 90 RF: 1 zolmitriptan 5 mg tablet 5 mg PO Q2-4H 30 Days Qty: 20 RF: 4 water for irrigation, sterile Solution 1 irrig irrigation DAILY Qty: 8000 RF: 8 (DME) blood pressure test kit-wrist [Blood Pressure Unit-Wrist] Kit See Rx Instructions .ROUTE .MEDSUPPLY Qty: 1 RF: 0 quetiapine 100 mg tablet 100 mg PO BEDTIME RF: 0 quetiapine 50 mg tablet 50 mg PO BEDTIME RF: 0 (DME) vaporizers Misc See Rx Instructions ea .ROUTE .MEDSUPPLY Qty: 1 RF: 0
[2021-02-17 22:34] LABS: MANUAL DIFF FLAG NO
[2021-02-17 22:38] LABS: Basophils Absolute Auto 0.1 X10*3/uL (0.0-0.2); Basophils Percent Auto 0.4 % (0-2); Eosinophils Absolute Auto 0.5 X10*3/uL (0.0-0.4); Eosinophils Percent Auto 3.6 % (0-4); Hemoglobin 13.3 g/dl (12.0-16.0); Imm Gran Abs Auto 0.12 X10*3/uL (0.00-0.03); Imm Gran Pct Auto 0.9 % (0.0-0.4); Lymphocytes Absolute Auto 2.6 X10*3/uL (1.2-4.9); Lymphocytes Percent Auto 19.4 % (20-40); Mean Corpuscular HGB Conc 29.6 g/dl (31.0-35.0); Mean Corpuscular Hemoglobin 23.6 pg (27.0-33.0); Mean Corpuscular Volume 79.9 fL (80-98); Mean Platelet Volume 11.1 fL (9.4-12.3); Monocytes Absolute Auto 0.7 X10*3/uL (0.1-1.2); Monocytes Percent Auto 5.3 % (2-11); Neutrophils Absolute Auto 9.5 X10*3/uL (2.0-8.3); Neutrophils Percent Auto 70.4 % (45-73); Platelet Count 292 X10*3/uL (160-400); Red Blood Count 5.63 X10*6/uL (4.20-5.50); Red Cell Distribution Width 16.6 % (11.0-16.0); White Blood Count 13.5 X10*3/uL (4.8-10.8)
[2021-02-17] MEDS: Ketorolac Tromethamine 30 MG/ML VIAL IVPUSH (22:38)
[2021-02-17] MEDS: diphenhydrAMINE HCL 50 MG/ML VIAL IVPUSH (22:38)
[2021-02-17] MEDS: Metoclopramide HCl 10 MG/2 ML VIAL IVPUSH (22:38)
[2021-02-17] MEDS: Loperamide HCl 2 MG CAPSULE 4 MG PO (22:39)
[2021-02-17] MEDS: 0.9 % Sodium Chloride 1,000 ML 999 ML IVCONT (22:41)
[2021-02-17 23:04] LABS: Glucose Urine UA NEG (NEG); Leukocyte Esterase Urine NEG (NEG); Nitrite Urine NEG (NEG); PH 5.5 (5.0-8.0); Specific Gravity - Urine >= 1.030 (1.005-1.025); Urine Blood NEG (NEG); Urine Ketones NEG (NEG); Urine Protein NEG (NEG-TRACE)
[2021-02-17 23:04] LABS: Alanine Aminotransferase 44 U/L (0-31); Albumin Level 4.4 g/dL (3.5-5.0); Alkaline Phosphatase 130 U/L (39-117); Anion Gap 17 (12-20); Aspartate Amino Transferase 25 U/L (5-31); Bilirubin Direct 0.2 mg/dL (0.0-0.5); Bilirubin Total 0.5 mg/dL (0.0-1.0); Blood Urea Nitrogen 13 mg/dL (9-16); Calcium 9.4 mg/dL (8.4-10.2); Carbon Dioxide 24 mmol/L (22-29); Chloride 103 mmol/L (96-108); Creatinine Clr Calc Pharmacy 114.2; Estimated Glomerular Filt Rate > 60; Glucose Random 79 mg/dL (60-115); Potassium 4.6 mmol/L (3.3-5.1); Sodium 139 mmol/L (135-145)
[2021-02-17 23:17] LABS: Appearance Urine CLEAR; Color Urine YELLOW
[2021-02-17 23:18] LABS: Influenza A PCR NEGATIVE (Negative); Influenza B PCR NEGATIVE (Negative); Resp Syncy Virus RNA Qual PCR NEGATIVE (Negative); SARS COV2 PCR INHOUSE NEGATIVE (Negative)
[2021-02-17 23:39] VITALS: BP 122/74; PULSE 85; RESP 16; TEMP 36.8; O2SAT 96
== END 2021-02-18 00:43 | disposition home or self-care (01) ==
PROVIDERS: Emergency Provider Emergency Medicine; PCP Hospitalist
DX: B34.9 Viral infection, unspecified (principal); R05 Cough; R51.9 Headache, unspecified; R53.83 Other fatigue; Z20.822 Contact with and (suspected) exposure to COVID-19
CPT/HCPCS: 0241U; 36415; 71046; 80048; 80076; 81003; 85025; 96365; 96375; 99284; J1200; J1885; J2765

== ENCOUNTER 2021-02-19 07:50 | Outpatient (REF) | payer OTHER, SELFPAY ==
[2021-02-19 09:58] LABS: Free T4 (Free Thyroxine) 0.87 ng/dL (0.71-1.85)
== END 2021-02-19 07:51 | disposition home or self-care (01) ==
LOC: HO.LAB 07:50
PROVIDERS: Visit Provider Nurse Practitioner
DX: K59.04 Chronic idiopathic constipation (principal)
CPT/HCPCS: 36415; 84439

== ENCOUNTER 2021-04-23 11:40 | Outpatient (REF) | payer OTHER, SELFPAY ==
--- NOTE | ~2021-04-23 | XR_ITS ---
EXAMINATION: XR ABDOMEN WITH DECUBITUS VIEWS CLINICAL INDICATION: Abdominal pain COMPARISON: Previous CT of the abdomen and pelvis August 2020 TECHNIQUE: Supine and upright views of the abdomen and pelvis FINDINGS: There is a nonspecific bowel gas pattern. There are slightly distended loops of small bowel and colon/splenic flexure in the left upper and mid abdomen with air-fluid levels. There is no evidence of free air. There are no calcifications. There are surgical clips in the right upper quadrant suggestive of previous cholecystectomy. There are degenerative changes of the spine and hip joints. XR/XR abdomen w decubitus IMPRESSION: Nonspecific bowel gas pattern with slightly distended loops of small bowel and colon in the left upper and mid abdomen with air-fluid levels.
[2021-04-23 13:26] LABS: Thyroid Stimulating Hormone 1.89 uIU/mL (0.32-4.0)
== END 2021-04-23 11:41 | disposition home or self-care (01) ==
LOC: HO.XRAY 11:40
PROVIDERS: PCP Internal Medicine; Referring Provider Internal Medicine; Visit Provider Nurse Practitioner
DX: R10.9 Unspecified abdominal pain (principal); E03.9 Hypothyroidism, unspecified; K59.04 Chronic idiopathic constipation
CPT/HCPCS: 36415; 74021; 84443

== ENCOUNTER → 2021-05-06 09:24 | Outpatient (BNVA) | payer OTHER, SELFPAY | PROVIDERS: PCP Internal Medicine; Visit Provider Nurse Practitioner ==

== ENCOUNTER 2021-05-20 09:14 | Outpatient (REF) | payer OTHER, SELFPAY ==
[2021-05-21 09:43] LABS: BV Int Neg Control Negative (Negative); BV Int Pos Control Positive (Positive)
== END 2021-05-20 09:15 | disposition home or self-care (01) ==
LOC: HO.LAB 09:14
PROVIDERS: PCP Internal Medicine; Visit Provider Advanced Practice Midwife
DX: Z01.411 Encounter for gynecological examination (general) (routine) with abnormal findings (principal); R10.2 Pelvic and perineal pain; N90.89 Other specified noninflammatory disorders of vulva and perineum
CPT/HCPCS: 87480; 87510; 87660

== ENCOUNTER 2021-07-10 12:53 | Outpatient (REF) | payer OTHER, SELFPAY ==
--- NOTE | ~2021-07-10 | US_ITS ---
EXAMINATION: US PELVIS CLINICAL INFORMATION: Pain. The uterus has been removed. COMPARISON: Previous CT of the abdomen and pelvis August 2020, MR of the pelvis June 2020 and pelvic ultrasound November 2013 TECHNIQUE: Ultrasound of the pelvis is performed using both transabdominal and transvaginal transducers along with Doppler. Transvaginal imaging is performed due to inadequate visualization transabdominally. FINDINGS: The uterus has been removed. There are small nabothian cysts seen in the cervix. The right ovary is normal and measures 6 x 6 x 7 mm. The left ovary is not seen. There is no fluid in the pelvis. US/US pelvic and transvaginal IMPRESSION: Post supracervical hysterectomy. Normal-appearing right ovary. Left ovary not seen.
== END 2021-07-10 12:54 | disposition home or self-care (01) ==
LOC: HO.US 12:53
PROVIDERS: Visit Provider Advanced Practice Midwife
DX: R10.2 Pelvic and perineal pain (principal)
CPT/HCPCS: 76830; 76856

== ENCOUNTER 2021-07-23 12:42 | Outpatient (REF) | payer OTHER, SELFPAY | END 2021-07-23 12:43 | disposition home or self-care (01) | LOC: HO.MRI 12:42 | PROVIDERS: Visit Provider Internal Medicine | DX: M54.50 Low back pain, unspecified (principal) | CPT/HCPCS: 72148 ==

== ENCOUNTER → 2021-07-25 10:55 | Outpatient (BNVA) | payer OTHER, SELFPAY | PROVIDERS: PCP Internal Medicine; Visit Provider Advanced Practice Midwife ==

== ENCOUNTER → 2021-09-08 14:14 | Outpatient (BNVA) | payer OTHER, SELFPAY | PROVIDERS: PCP Internal Medicine; Visit Provider Anesthesiology | DX: M47.819 Spondylosis without myelopathy or radiculopathy, site unspecified (principal); M47.816 Spondylosis without myelopathy or radiculopathy, lumbar region; M51.36 Other intervertebral disc degeneration, lumbar region; G89.4 Chronic pain syndrome | CPT/HCPCS: 99212 ==

== ENCOUNTER 2021-09-19 13:00 | Outpatient (REF) | payer OTHER, SELFPAY ==
[2021-09-19 15:22] LABS: Alanine Aminotransferase 32 U/L (0-31); Albumin Level 4.1 g/dL (3.5-5.0); Alkaline Phosphatase 130 U/L (39-117); Anion Gap 14 (12-20); Aspartate Amino Transferase 21 U/L (5-31); Bilirubin Total 0.6 mg/dL (0.0-1.0); Blood Urea Nitrogen 13 mg/dL (9-16); Calcium 9.2 mg/dL (8.4-10.2); Carbon Dioxide 26 mmol/L (22-29); Chloride 106 mmol/L (96-108); Cholesterol 159 mg/dL; Estimated Glomerular Filt Rate > 60; Glucose Fasting 77 mg/dL (60-99); HDL Cholesterol 38 mg/dL; LDL Cholesterol Calculated 95 mg/dl; Potassium 4.8 mmol/L (3.3-5.1); Sodium 141 mmol/L (135-145); Total Protein 7.5 g/dL (6.5-8.0); Triglycerides 132 mg/dL
[2021-09-19 15:43] LABS: Free T4 (Free Thyroxine) 1.17 ng/dL (0.71-1.85); Thyroid Stimulating Hormone 0.89 uIU/mL (0.32-4.0)
[2021-09-22 17:02] LABS: Thyroid Peroxidase Antibodies 2 IU/mL (<9)
[2021-09-22 21:10] LABS: Thyroglobulin Antibodies <1 IU/mL (< or = 1)
[2021-09-24 14:15] LABS: Vitamin D 25-OH, D2 <4 ng/mL; Vitamin D 25-OH, D3 8 ng/mL; Vitamin D 25-OH, Total 8 ng/mL (30-100)
== END 2021-09-19 13:01 | disposition home or self-care (01) ==
LOC: HO.LAB 13:00
PROVIDERS: PCP Internal Medicine; Visit Provider Internal Medicine
DX: M79.7 Fibromyalgia (principal); M47.816 Spondylosis without myelopathy or radiculopathy, lumbar region; M25.561 Pain in right knee; M25.562 Pain in left knee; E55.9 Vitamin D deficiency, unspecified; E11.9 Type 2 diabetes mellitus without complications; E78.5 Hyperlipidemia, unspecified; E66.01 Morbid (severe) obesity due to excess calories; E03.9 Hypothyroidism, unspecified
CPT/HCPCS: 36415; 80053; 80061; 82306; 84439; 84443; 86376; 86800; 99212

== ENCOUNTER → 2021-09-24 12:52 | Outpatient (BNVA) | payer OTHER, SELFPAY | PROVIDERS: PCP Internal Medicine; Visit Provider Anesthesiology ==

== ENCOUNTER 2021-10-03 20:07 | Emergency (ER) | payer OTHER, SELFPAY ==
[2021-10-03 20:21] VITALS: BP 188/91; PULSE 92; RESP 15; TEMP 37; O2SAT 98; BMI 42.0
--- NOTE | 2021-10-03 21:29 | ED_ITS ---
HPI - Back Pain/Injury General Chief Complaint: Back Pain/Injury Stated Complaint: Back pain Time Seen by Provider: 10/03/21 21:21 Source: patient Mode of arrival: ambulatory Limitations: no limitations History of Present Illness HPI Narrative: Patient comes to the emergency room complaining of chronic back pain. Patient states that in the past used to follow up, patient has been seen by the Pain [facility], has an appointment coming up for back injections. Patient states that she has been diagnosed with osteoarthritis and sciatica. Patient states the pain is intense radiating down words to both legs. Patient states in time she flexes her hips, she has intense pain radiating all the way down. Patient denies urinary/fecal incontinence/retention Related Data Home Medications Medication Instructions Recorded Confirmed vaporizers #1 ea 10/10/20 09/24/21 miscellaneous medical supply #1 ea 12/11/20 09/24/21 zolpidem 10 mg tablet mg PO 05/08/21 09/24/21 buspirone 15 mg tablet 30 mg PO BID tab 09/19/21 09/24/21 clonidine HCl 0.1 mg tablet 0.1 mg PO DAILY tab 09/19/21 09/24/21 duloxetine 60 mg capsule,delayed 60 mg PO DAILY 09/19/21 09/24/21 release meclizine 25 mg tablet 25 mg PO BID tab 09/19/21 09/24/21 nabumetone 500 mg tablet 500 mg PO BID 09/19/21 09/24/21 Previous Rx's Medication Instructions Recorded blood pressure test kit-wrist #1 ea 09/13/20 (Blood Pressure Unit-Wrist) water for irrigation, sterile 1 irrig IRRIGATION DAILY #8000 ml 09/13/20 fluticasone propionate 50 2 spray INTRANASAL DAILY 30 Days 11/14/20 mcg/actuation nasal #16 g spray,suspension furosemide 40 mg tablet 40 mg PO DAILY 30 Days #30 tab 11/14/20 loratadine 10 mg tablet 10 mg PO DAILY 90 Days #90 tab 11/14/20 metoprolol tartrate 50 mg tablet 50 mg PO BID 90 Days #180 tab 11/14/20 prochlorperazine maleate 10 mg 10 mg PO Q8H PRN #60 tab 11/14/20 tablet (Compazine) fluticasone propionate 110 2 puff INHALATION BID 30 Days #12 g 05/22/21 mcg/actuation HFA aerosol inhaler alcohol swabs 2 pad TOPICAL BID #100 ea 05/23/21 lancets 28 gauge (FreeStyle #100 ea 05/23/21 Lancets) levothyroxine 112 mcg tablet 112 mcg PO DAILY #30 tab 06/12/21 pantoprazole 40 mg tablet,delayed 40 mg PO DAILY 30 Days #30 tab 06/30/21 release (Protonix) sennosides 8.6 mg capsule (senna) 17.2 mg PO BEDTIME 30 Days #60 cap 07/01/21 clotrimazole-betamethasone 1 1 appl TOPICAL BID PRN 7 Days #45 g 07/25/21 %-0.05 % topical cream luzwzd-mugttolr-ktoupdx 1 cap PO QID 30 Days #120 cap 08/08/21 24,000-76,000-120,000 unit capsule,delayed rel (Creon) metformin 500 mg tablet 500 mg PO BID #180 tab 08/26/21 albuterol sulfate 90 mcg/actuation 2 puff INHALATION Q6H PRN 30 Days 09/16/21 aerosol inhaler (Ventolin HFA) #6.7 g blood sugar diagnostic (FreeStyle #100 ea 09/16/21 Lite Strips) blood-glucose meter (FreeStyle #1 ea 09/16/21 Lite Meter) lancets 28 gauge (FreeStyle #100 ea 09/16/21 Lancets) acetaminophen 650 mg 650 mg PO Q12H PRN #60 tab 09/24/21 tablet,extended release (Tylenol Arthritis Pain) albuterol sulfate 2.5 mg (3 mL) INHALATION TID PRN 09/24/21 30 Days #180 ml ergocalciferol (vitamin D2) 1,250 1,250 mcg PO QWEEK 90 Days #13 cap 09/24/21 mcg (50,000 unit) capsule tramadol 50 mg tablet 50 mg PO BID PRN #6 tab 10/03/21 Allergies Allergy/AdvReac Type Severity Reaction Status Date / Time Penicillins Allergy Severe swelling Verified 09/24/21 12:53 adhesive tape [ADHESIVE TAPE] Allergy Intermediate RASH Verified 09/24/21 12:53 amoxicillin [AMOXICILLIN] Allergy Intermediate RASH,SWELLING, Verified 09/24/21 12:53 RASH/SWELLING latex Allergy Intermediate Rash Verified 09/24/21 12:53 Motrin Allergy Intermediate hypertensio Verified 09/24/21 12:53 n Review of Systems Review of Systems: Constitutional : No Weight loss, No Fever, No Chills, No Night Sweats, No Fatigue, No Malaise ENT/Mouth : No Hearing loss, No Ear Pain, No Nasal Congestion, No Sinus Pain, No Hoarseness, No sore throat, No Rhinorrhea, No Swallowing Difficulty Eyes: No Eye Pain, No Swelling, No Redness, No Foreign Body, No Discharge, No Vision Changes Cardiovascular : No Chest Pain, No SOB, No Dyspnea on Exertion, No Orthopnea, No Edema, No Palpitations Respiratory : No Cough, No Sputum, No Wheezing, No Smoke Exposure, No Dyspnea Gastrointestinal : No Nausea, No Vomiting, No Diarrhea, No Constipation, No abdominal Pain, No Hematochezia, No Melena Genitourinary : no irregular bleeding, No Dysuria, No Urinary Frequency, No Hematuria, No Urinary Incontinence, No Urgency, No Flank Pain, No Urinary Flow Changes, No Hesitancy Musculoskeletal : Complaining of lower back pain radiating towards bilateral heels. No joint pain, No Myalgias, No Joint Swelling Skin : No Skin Lesions, No rash Neuro : No Weakness, No Numbness, No Paresthesias, No Loss of Consciousness, No Dizziness, No Headache Psych : No Anxiety/Panic, No Depression, No SI/HI/AH/VH, No Social Issues, Heme/Lymph: No Bruising, No Bleeding,No Lymphadenopathy Endocrine : No Polyuria, No Polydipsia, No Temperature Intolerance PMFSH Past Medical History Medical History Arthropathy of facet joint Asthma Chronic pain (Unknown) Chronic pain syndrome Chronic pain syndrome Diabetes mellitus Disc degeneration, lumbar Fibromyalgia LUDY (generalized anxiety disorder) Goiter Incontinence Insomnia Lumbar pain Moderately severe recurrent major depression Morbid (severe) obesity due to excess calories Multiple air fluid levels of small intestine determined by X-ray Spondylosis of lumbar region without myelopathy or radiculopathy Spondylosis of lumbar region without myelopathy or radiculopathy Surgical History Delivery by section History of cholecystectomy History of esophagogastroduodenoscopy (EGD) History of hysterectomy Hx of colonoscopy Family History Family History Father Past heart attack Anxiety Mother MOF (multiple organ failure) Brother HIV (human immunodeficiency virus infection) Sister Ovarian cancer Uterine cancer Bone cancer Lupus Daughter Guillain-[place] Sister Lupus History of open heart surgery Family/Other FH: mental illness Depression Maternal Aunt Breast cancer Maternal Aunt Tumor Social History Social History Household Members Other:: Housing: Apartment Alcohol intake: current Alcohol intake frequency: holidays/special occasions only Alcohol type: wine Patient Tobacco Use Status: Never used Tobacco e-Cigarette/Vaping Use: Never Used Second Hand Smoke Exposure: Yes Advance Directives: No Patient : No service: No Current occupational status: disabled Physical Exam Vital Signs: Vital Signs: Last Vital Signs Temp 98.6 F 10/03/21 20:21 Pulse 92 10/03/21 20:21 Resp 15 10/03/21 20:21 BP 188/91 H 10/03/21 20:21 Pulse Ox 98 10/03/21 20:21 BMI result Body Mass Index 42.0 Const: Other: Appearance: Alert. Oriented X3. No acute distress. Eyes: Pupils equal, round and reactive to light. ENT: Pharynx normal. Neck: Normal inspection. Neck supple. No lymph nodes noted. No crepitus CVS: Normal heart rate and rhythm. Pulses normal. Normal S1 and S2 Respiratory: No respiratory distress. Breath sounds normal. No Wheezing. No rales Abdomen: Soft and nontender. No rigidity. No distention. Back: No pain to palpation over lumbar area or paraspinal muscles, frozen with straight leg raise test bilaterally. Patient has good E, uses a cane at baseline. Skin: Skin warm and dry. Normal skin color. Normal skin turgor. Extremities: No lower extremity edema. No lower extremity edema. No Lacerations. No Rash Neuro: Oriented X 3. No motor deficit. No sensory deficit. Moving all extermities. No slurred speech. Course Course Course Narrative: Patient was given 1 dose of IM hydromorphone in IM dexamethasone. Patient instructed to follow-up with the Pain Clinic as scheduled. Discharge Plan Discharge Clinical Impression: Bulging lumbar disc Patient Disposition: Home, Self-Care Instructions: Lumbar Radiculopathy (ED) Additional Instructions: Please follow-up with your primary care physician tomorrow. If you have any worsening or new symptoms, please return to the emergency room or call 911 Prescriptions: New tramadol 50 mg tablet 50 mg PO BID PRN (Reason: pain) Qty: 6 RF: 0 No Action (DME) miscellaneous medical supply Misc See Rx Instructions .ROUTE .MEDSUPPLY Qty: 1 RF: 0 fluticasone propionate 110 mcg/actuation HFA aerosol inhaler 2 puff inhalation BID 30 Days Qty: 12 RF: 5 alcohol swabs Pads, Medicated 2 pad topical BID Qty: 100 RF: 6 (DME) lancets [FreeStyle Lancets] 28 gauge misc See Rx Instructions .Route Qty: 100 RF: 6 levothyroxine 112 mcg tablet 112 mcg PO DAILY Qty: 30 RF: 2 pantoprazole [Protonix] 40 mg tablet,delayed release (DR/EC) 40 mg PO DAILY 30 Days Qty: 30 RF: 0 Creon 24,000-76,000 -120,000 unit capsule,delayed release(DR/EC) 1 cap PO QID 30 Days Qty: 120 RF: 0 metformin 500 mg tablet 500 mg PO BID Qty: 180 RF: 2 albuterol sulfate 2.5 mg /3 mL (0.083 %) solution for nebulization 2.5 mg inhalation TID PRN (Reason: shortness of breath or wheezing) 30 Days Qty: 180 RF: 1 ergocalciferol (vitamin D2) 1,250 mcg (50,000 unit) capsule 1,250 mcg PO QWEEK 90 Days Qty: 13 RF: 1 acetaminophen [Tylenol Arthritis Pain] 650 mg tablet extended release 650 mg PO Q12H PRN (Reason: pain) Qty: 60 RF: 3 fluticasone propionate 50 mcg/actuation spray,suspension 2 spray intranasal DAILY 30 Days Qty: 16 RF: 4 furosemide 40 mg tablet 40 mg PO DAILY 30 Days Qty: 30 RF: 6 loratadine 10 mg tablet 10 mg PO DAILY 90 Days Qty: 90 RF: 3 metoprolol tartrate 50 mg tablet 50 mg PO BID 90 Days Qty: 180 RF: 1 prochlorperazine maleate [Compazine] 10 mg tablet 10 mg PO Q8H PRN (Reason: nausea and vomiting) Qty: 60 RF: 1 zolpidem 10 mg tablet PO RF: 0 water for irrigation, sterile Solution 1 irrig irrigation DAILY Qty: 8000 RF: 8 (DME) blood pressure test kit-wrist [Blood Pressure Unit-Wrist] Kit See Rx Instructions .ROUTE .MEDSUPPLY Qty: 1 RF: 0 (DME) vaporizers Misc See Rx Instructions ea .ROUTE .MEDSUPPLY Qty: 1 RF: 0 albuterol sulfate [Ventolin HFA] 90 mcg/actuation HFA aerosol inhaler 2 puff inhalation Q6H PRN (Reason: shortness of breath or wheezing) 30 Days Qty: 6.7 RF: 1 (DME) lancets [FreeStyle Lancets] 28 gauge misc See Rx Instructions .Route Qty: 100 RF: 3 (DME) blood-glucose meter [FreeStyle Lite Meter] Kit See Rx Instructions .Route Qty: 1 RF: 0 (DME) FreeStyle Lite Strips Strip See Rx Instructions .Route Qty: 100 RF: 3 duloxetine 60 mg capsule,delayed release(DR/EC) 60 mg PO DAILY RF: 0 buspirone 15 mg tablet 30 mg PO BID RF: 0 meclizine 25 mg tablet 25 mg PO BID RF: 0 clonidine HCl 0.1 mg tablet 0.1 mg PO DAILY RF: 0 nabumetone 500 mg tablet 500 mg PO BID RF: 0 senna 8.6 mg capsule 17.2 mg PO BEDTIME 30 Days Qty: 60 RF: 3 clotrimazole-betamethasone 1-0.05 % cream 1 appl topical BID PRN (Reason: itching) 7 Days Qty: 45 RF: 0
[2021-10-03] MEDS: dexAMETHasone sod phosphate 4 MG/ML VIAL IM (22:10)
[2021-10-03 22:11] VITALS: RESP 17
[2021-10-03] MEDS: HYDROmorphone HCl 1 MG/ML SYRINGE IM (22:11)
[2021-10-03 22:20] VITALS: BP 154/76; PULSE 80; RESP 17; O2SAT 96
== END 2021-10-03 22:45 | disposition home or self-care (01) ==
PROVIDERS: Emergency Provider Emergency Medicine; PCP Internal Medicine
DX: M51.26 Other intervertebral disc displacement, lumbar region (principal); E11.9 Type 2 diabetes mellitus without complications; I10 Essential (primary) hypertension
CPT/HCPCS: 96372; 99284; J1100; J1170

== ENCOUNTER → 2021-10-09 09:36 | Outpatient (BNVA) | payer OTHER, SELFPAY | PROVIDERS: PCP Internal Medicine; Visit Provider Anesthesiology | DX: M47.819 Spondylosis without myelopathy or radiculopathy, site unspecified (principal); M47.816 Spondylosis without myelopathy or radiculopathy, lumbar region; M51.36 Other intervertebral disc degeneration, lumbar region; G89.4 Chronic pain syndrome | CPT/HCPCS: 99212 ==

== ENCOUNTER → 2021-10-29 08:58 | Outpatient (BNVA) | payer OTHER, SELFPAY | PROVIDERS: PCP Internal Medicine; Visit Provider Anesthesiology | DX: Z51.81 Encounter for therapeutic drug level monitoring (principal); F11.20 Opioid dependence, uncomplicated; M47.819 Spondylosis without myelopathy or radiculopathy, site unspecified; M47.816 Spondylosis without myelopathy or radiculopathy, lumbar region; M51.36 Other intervertebral disc degeneration, lumbar region; G89.4 Chronic pain syndrome | CPT/HCPCS: 99212 ==

== ENCOUNTER 2021-10-29 10:15 | Outpatient (REF) | payer OTHER, SELFPAY ==
[2021-10-29 10:43] LABS: MANUAL DIFF FLAG NO
[2021-10-29 10:47] LABS: Basophils Absolute Auto 0.1 X10*3/uL (0.0-0.2); Basophils Percent Auto 0.5 % (0-2); Eosinophils Absolute Auto 0.7 X10*3/uL (0.0-0.4); Eosinophils Percent Auto 5.3 % (0-4); Hematocrit 45.3 % (37.0-47.0); Hemoglobin 13.6 g/dl (12.0-16.0); Imm Gran Abs Auto 0.13 X10*3/uL (0.00-0.03); Lymphocytes Absolute Auto 2.8 X10*3/uL (1.2-4.9); Mean Corpuscular Hemoglobin 24.2 pg (27.0-33.0); Mean Corpuscular Volume 80.5 fL (80.0-98.0); Mean Platelet Volume 10.8 fL (9.4-12.3); Monocytes Absolute Auto 0.6 X10*3/uL (0.1-1.2); Monocytes Percent Auto 4.5 % (2-11); Neutrophils Absolute Auto 8.4 x10*3/uL (2.0-8.3); Neutrophils Percent Auto 66.7 % (45-73); Platelet Count 358 X10*3/uL (160-400); Red Blood Count 5.63 X10*6/uL (4.20-5.50); Red Cell Distribution Width 18.6 % (11.0-16.0); White Blood Count 12.6 X10*3/uL (4.8-10.8)
[2021-10-29 10:58] LABS: Estimated Average Glucose 151 mg/dL; Hemoglobin A1c % 6.9 %
[2021-10-29 11:39] LABS: Alanine Aminotransferase 48 U/L (0-31); Albumin Level 4.3 g/dL (3.5-5.0); Alkaline Phosphatase 131 U/L (39-117); Anion Gap 13 (12-20); Aspartate Amino Transferase 32 U/L (5-31); Bilirubin Total 0.4 mg/dL (0.0-1.0); Blood Urea Nitrogen 14 mg/dL (9-16); Carbon Dioxide 30 mmol/L (22-29); Chloride 103 mmol/L (96-108); Cholesterol 163 mg/dL; Estimated Glomerular Filt Rate > 60; Glucose Fasting 126 mg/dL (60-99); HDL Cholesterol 47 mg/dL; LDL Cholesterol Calculated 94 mg/dl; Potassium 4.4 mmol/L (3.3-5.1); Sodium 142 mmol/L (135-145); Triglycerides 114 mg/dL
[2021-10-29 12:06] LABS: Thyroid Stimulating Hormone 3.12 uIU/mL (0.32-4.0)
[2021-10-29 14:35] LABS: Appearance Urine CLEAR; Color Urine YELLOW; Glucose Urine UA NEG (NEG); Leukocyte Esterase Urine NEG (NEG); Nitrite Urine NEG (NEG); PH 5.5 (5.0-8.0); Urine Blood NEG (NEG); Urine Ketones NEG (NEG); Urine Protein NEG (NEG-TRACE)
[2021-10-29 14:48] LABS: Creatinine Urine 70.84 mg/dL; Microalbum/Creatinine Ratio Ur 43.7 ug/mg cr
[2021-11-03 14:22] LABS: Vitamin D 25-OH, D2 21 ng/mL; Vitamin D 25-OH, D3 6 ng/mL; Vitamin D 25-OH, Total 27 ng/mL (30-100)
== END 2021-10-29 10:16 | disposition home or self-care (01) ==
LOC: HO.10HDL 10:15
PROVIDERS: Absent Provider Internal Medicine; Visit Provider Nurse Practitioner Family
DX: R93.3 Abnormal findings on diagnostic imaging of other parts of digestive tract (principal); E55.9 Vitamin D deficiency, unspecified; E78.5 Hyperlipidemia, unspecified; E11.9 Type 2 diabetes mellitus without complications; E03.9 Hypothyroidism, unspecified
CPT/HCPCS: 36415; 80053; 80061; 81003; 82043; 82306; 83036; 84443; 85025

== ENCOUNTER 2021-11-17 07:59 | Outpatient (REF) | payer OTHER, SELFPAY ==
--- NOTE | ~2021-11-17 | MR_ITS ---
EXAMINATION: MR CERVICAL SPINE WITHOUT CONTRAST CLINICAL INFORMATION: 56-year-old with complaints of left-sided neck pain radiating to the left arm and left chest. Spondylosis without myelopathy or radiculopathy. COMPARISON: None TECHNIQUE: MRI of the cervical spine was obtained using routine sequences without contrast. Technical note: Axial images are degraded by motion artifact which limits the study. FINDINGS: ALIGNMENT: Slight lordotic reversal centered at C5-C6. Trace anterolisthesis at C5-C6 and C4-C5. CRANIOCERVICAL JUNCTION/C1-C2 ARTICULATIONS: Intact and aligned. VISUALIZED INTRACRANIAL STRUCTURES: Within normal limits. VERTEBRAL BODIES: Normal height. DISC SPACES AND ENDPLATES: Moderate disc space height loss at C5-C6 and C6-C7 with mild degrees of anterior marginal spondylosis. Minimal disc desiccation at these levels and at C2-C3. Endplates appear intact. BONE MARROW: No significant marrow-replacing process or bone marrow edema. C2-C3: Central to right paramedian disc osteophyte complex noted with slight flattening of the dural sac asymmetric to the right without cord impingement or significant canal stenosis. Mild facet arthropathy noted on the right without significant bony neural foraminal stenosis. C3-C4: Minimal posterior disc osteophyte complex noted with minimal flattening of the ventral dural sac without cord impingement or canal stenosis. Mild uncovertebral spurring is noted with minor facet arthropathy on the right and [id number] facet arthropathy on the left. There is moderate left-sided neural foraminal stenosis. Mild right-sided neural foraminal stenosis. C4-C5: Small left paramedian disc herniation noted with minimal indentation of the left ventral thecal sac. Uncovertebral spurring noted, right more than left without significant facet arthropathy. No significant canal stenosis. There is mild left-sided and [id number] right-sided neural foraminal stenosis. C5-C6: Posterolateral disc osteophyte complex noted with mild flattening of the ventral dural sac with associated anterolisthesis without significant spinal canal stenosis or cord impingement. There is uncovertebral spurring bilaterally with moderate right-sided and mild left-sided neural foraminal stenosis. C6-C7: Broad-based disc protrusion and mild flattening of the ventral dural sac without cord impingement or canal stenosis. No significant neural foraminal stenosis. C7-T1: No disc herniation. No significant DJD, canal or neural foraminal stenosis. The cervical and visualized upper thoracic spinal cord is normal in morphology, caliber and signal intensity throughout. Normal signal voids are seen in the visualized major arterial neck vessels. MR/MR cervical spine wo con IMPRESSION: 1. Mild lordotic reversal at C5-C6, with trace anterolisthesis at C4-C5 and C5-C6 and discogenic degenerative changes primarily at C5-C6 and C6-C7 with spondylosis. 2. Multilevel disc osteophyte complexes without cord impingement or significant spinal canal stenosis. Small left subarticular disc herniation at C4-C5 encroaching on the proximal left neural foramen. 3. Multilevel uncovertebral and facet arthropathy as described above, with multilevel mild, [id number] and moderate degrees of neural foraminal stenosis as detailed by level above.
[2021-11-17 08:58] LABS: Cholesterol 181 mg/dL; HDL Cholesterol 51 mg/dL; Iron 55 mcg/dL (30-160); LDL Cholesterol Calculated 100 mg/dl; Percent Iron Saturation 14 % (15-50); Total Iron Binding Capacity 407 mcg/dL (228-428); Triglycerides 153 mg/dL; Unsaturated Iron Binding 352 ug/dL
[2021-11-17 09:13] LABS: Ferritin 157 ng/mL (10-250)
[2021-11-17 10:36] LABS: Microalbum/Creatinine Ratio Ur 49.1 ug/mg cr
[2021-11-20 22:11] LABS: Hematocrit 46.2 % (35.0-45.0); Hemoglobin 14.4 g/dL (11.7-15.5); MCH 23.9 pg (27.0-33.0); MCV 76.6 fL (80.0-100.0); RBC 6.03 Million/uL (3.80-5.10); RDW 17.2 % (11.0-15.0)
== END 2021-11-17 08:00 | disposition home or self-care (01) ==
LOC: HO.MRI 07:59
PROVIDERS: Absent Provider Nurse Practitioner Family; PCP Nurse Practitioner Family; Visit Provider Anesthesiology
DX: Z13.220 Encounter for screening for lipoid disorders (principal); M47.812 Spondylosis without myelopathy or radiculopathy, cervical region; R71.8 Other abnormality of red blood cells; E11.9 Type 2 diabetes mellitus without complications
CPT/HCPCS: 36415; 72141; 80061; 82043; 82728; 83020; 83540; 85014; 85018; 85041

== ENCOUNTER 2021-12-05 10:55 | Day surgery (SDC) | payer OTHER, SELFPAY ==
[2021-12-01 10:23] VITALS: BMI 42.3
--- NOTE | ~2021-12-05 | FL_ITS ---
EXAMINATION: XR FLUOROSCOPY WITH IMAGES CLINICAL INFORMATION: Low back pain. COMPARISON: MRI lumbar spine 07/23/2021 TECHNIQUE: Fluoroscopy performed by Dr. Zeferino Yun. Fluoroscopy time: 0.7 minutes DAP: 16.1 Gycm2 Images: 5 FINDINGS: There are spinal needles overlying the bilateral outer L4 and L5 neural foramen. There is contrast seen in the respective nerve sheaths. Some early transforaminal epidural extension is suggested. No visible vascular communication. FL/FL guidance in OR IMPRESSION: Fluoroscopy for pain management procedures.
[2021-12-05 10:58] VITALS: BP 183/87; PULSE 70; RESP 18; TEMP 36.8; O2SAT 94
[2021-12-05 11:07] LABS: Glucose, Whole Blood 95 mg/dL (60-115)
--- NOTE | 2021-12-05 11:30 | MHC.SHP ---
Pre-Procedural Eval Section A Date of Service: 12/05/21 Section B Chief Complaint: Arthopathy of facet joint Details of Present Illness: as above Relevant Family History (Specify if Yes): No Relevant Social History: None Present Medications: see Short Stay Collaborative assessment Medical History: No relevant PMH History of Previous Operations: No relevant previous surgery Allergies: Allergies Allergy/AdvReac Type Severity Reaction Status Date / Time Penicillins Allergy Severe swelling Verified 11/18/21 11:12 adhesive tape [ADHESIVE TAPE] Allergy Intermediate RASH Verified 11/18/21 11:12 amoxicillin [AMOXICILLIN] Allergy Intermediate RASH,SWELLING, Verified 11/18/21 11:12 RASH/SWELLING latex Allergy Intermediate Rash Verified 11/18/21 11:12 Motrin Allergy Intermediate hypertensio Verified 11/18/21 11:12 n Review of Systems Sugical H&P ROS: Negative: Constitution, Cardiovascular, Respiratory, Neurological, Psychiatric, Hem-Onc, Allergic/Immunologic, Gastrointestinal, Genitourinary, Musculoskeletal, Integumentary, Endocrine and Eyes/Ears/Nose/Throat Exam Surgical H&P Exam: Normal: HEENT, Normal: Heart, Normal: Lungs, Normal: Extremities, Normal: Abdomen, Normal: Skin and Normal: Neurological Plan Diagnosis/Plan: Unchanged I have reviewed the history and physical and performed a pertinent physical examination on my patient. No changes have occurred unless specified.
--- NOTE | 2021-12-05 11:35 | HO.ANESPROP2 ---
[facility] Active Problems Active Problems: All Active Problems (Updated 12/04/21 @ 10:54 by Corrine Sorot RN) Hypertension (Acute) Migraine (Acute) Seasonal allergies (Acute) Anxiety with depression (Acute) Edema (Acute) Vertigo (Acute) Chronic idiopathic constipation (Acute) GERD (gastroesophageal reflux disease) (Acute) Right sided abdominal pain (Acute) Abdominal cramping (Acute) Small bowel motility disorder (Acute) Sleep apnea (Acute) Physical deconditioning (Acute) Hypothyroid (Acute) Abdominal bloating (Acute) Encounter for annual routine gynecological examination (Acute) Pelvic pain in female (Acute) Vulvar irritation (Acute) Chronic pain syndrome (Acute) Screening for hyperlipidemia (Acute) Elevated red blood cell count (Acute) Spondylosis of cervical spine at multiple levels without myelopathy (Acute) Renal calculi (Acute) Incontinence (Acute) Goiter (Acute) Disc degeneration, lumbar (Acute) Spondylosis of lumbar region without myelopathy or radiculopathy (Acute) Arthropathy of facet joint (Acute) Lumbar pain (Acute) Insomnia (Acute) LUDY (generalized anxiety disorder) (Acute) Moderately severe recurrent major depression (Acute) Multiple air fluid levels of small intestine determined by X-ray (Acute) Diabetes mellitus (Acute) Chronic pain syndrome (Acute) Morbid (severe) obesity due to excess calories (Acute) Spondylosis of lumbar region without myelopathy or radiculopathy (Acute) Fibromyalgia (Acute) Chronic pain (Acute Unknown) Asthma (Acute) Past Medical History Medical History Arthropathy of facet joint Asthma Chronic pain (Unknown) Chronic pain syndrome Diabetes mellitus Disc degeneration, lumbar Fibromyalgia LUDY (generalized anxiety disorder) Goiter Incontinence Insomnia Lumbar pain Moderately severe recurrent major depression Morbid (severe) obesity due to excess calories Multiple air fluid levels of small intestine determined by X-ray Renal calculi Sleep apnea Spondylosis of cervical spine at multiple levels without myelopathy Spondylosis of lumbar region without myelopathy or radiculopathy Family History Family History Father Past heart attack Anxiety Mother MOF (multiple organ failure) Brother HIV (human immunodeficiency virus infection) Sister Ovarian cancer Uterine cancer Bone cancer Lupus Daughter Guillain-[place] Sister Lupus History of open heart surgery Family/Other FH: mental illness Depression Maternal Aunt Breast cancer Maternal Aunt Tumor Surgical History Surgical History Delivery by section History of cholecystectomy History of esophagogastroduodenoscopy (EGD) History of hysterectomy Hx of colonoscopy History of Problems with Anesthesia: No Social History Social History Household Members Other:: Housing: Apartment Alcohol intake: current Alcohol intake frequency: holidays/special occasions only Alcohol type: wine Patient Tobacco Use Status: Never used Tobacco e-Cigarette/Vaping Use: Never Used Second Hand Smoke Exposure: Yes Advance Directives: Yes Advance Directives Information Provided: Yes Advance Directives on File: Yes Advance Directives Date on File: 07/03/15 service: No Current occupational status: disabled Meds Allergies Allergy/AdvReac Type Severity Reaction Status Date / Time Penicillins Allergy Severe swelling Verified 11/18/21 11:12 adhesive tape [ADHESIVE TAPE] Allergy Intermediate RASH Verified 11/18/21 11:12 amoxicillin [AMOXICILLIN] Allergy Intermediate RASH,SWELLING, Verified 11/18/21 11:12 RASH/SWELLING latex Allergy Intermediate Rash Verified 11/18/21 11:12 Motrin Allergy Intermediate hypertensio Verified 11/18/21 11:12 n Home Medications Medication Instructions Recorded Confirmed Last Taken Type vaporizers #1 ea 10/10/20 11/18/21 Unknown History miscellaneous medical supply #1 ea 12/11/20 11/18/21 Unknown History zolpidem 10 mg tablet 10 mg PO BEDTIME 05/08/21 12/01/21 Unknown History buspirone 15 mg tablet 30 mg PO BID tab 09/19/21 11/18/21 Unknown History clonidine HCl 0.1 mg tablet 0.1 mg PO DAILY tab 09/19/21 12/01/21 12/05/21 History duloxetine 60 mg capsule,delayed 60 mg PO DAILY 09/19/21 12/01/21 Unknown History release nabumetone 500 mg tablet 500 mg PO BID 09/19/21 12/01/21 Unknown History mirtazapine 7.5 mg tablet 7.5 mg PO BEDTIME 10/09/21 12/01/21 Unknown History buspirone 30 mg tablet 30 mg PO BID 10/29/21 12/01/21 Unknown History Exam Exam Date and Time: December 05, 2021 1135 Height,Weight and Vital Signs: Height 5 ft 7 in Weight 122.47 kg Last Vital Signs Temp 98.3 F 12/05/21 10:58 Pulse 70 12/05/21 10:58 Resp 18 12/05/21 10:58 BP 183/87 H 12/05/21 10:58 Pulse Ox 94 12/05/21 10:58 Pertinent Lab Results Pertinent Lab Results: Laboratory Tests 12/05/21 11:04 POC Glucose 95 Airway Mallampati Class: III TM Dist: >3cm Neck ROM: Full Loose/Missing/Broken Teeth: No Heart: RRR Lungs: CTA Assessment and Plan Assessment Anesthesia Assessment: Anesthesia Plan Discussed and Chart Reviewed Final Anesthetic Review History of Problems with Anesthesia: No NPO: Yes ASA Class: III Final Preanesthetic Review: Meds/Allgs Chart Reviewed, Consent Obtained/Reviewed and Anes Risks/Benef Reviewed Patient Risk: Intermediate Procedure Risk: Intermediate Anesthetic Plan Anesthetic Plan: MAC: Disposition: Standard PACU
--- NOTE | 2021-12-05 12:53 | P.BOP_ITS ---
Brief Operative Note Date of Service: 12/05/21 Pre-op diagnosis: facet joint arthritis Post-op diagnosis: same Procedure: L4- L5 and L5- S1 bilateral facet joint injection. Implants: none Surgeon: Zeferino Yun MD Anesthesia: MAC Was an Day Care Teacher used for this Procedure?: No Estimated blood loss (mL): 0 Pathology: none sent Condition: stable Disposition: PACU
[2021-12-05 13:00] VITALS: BP 158/71; PULSE 67; RESP 20; TEMP 36.4; O2SAT 99
[2021-12-05 13:15] VITALS: BP 129/68; PULSE 70; RESP 18; O2SAT 99
--- NOTE | 2021-12-05 14:01 | W.PM.OPN ---
Operative Note Operative Note Date of Service: 12/05/21 Narrative: Bonnie is very pleasant 56 years old female who came to OR for the bilateral intra-articular facet joint injections L4-5 and L5-S1 in the attempt to treat spondylosis of the lumbar spine and facet joint degeneration. After obtaining informed consent patient was brought to the operating room, HE was positioned prone on operating table, [employer] [employer] monitors were applied and patient was moderate sedated. ? Time-out was performed delineating correct site, side, the nature of the procedure, patient's allergy, preoperative antibiotic if needed.? All operating room staff was participating in OR time-out procedure. He received preoperatively clindamycin 900 mg IV approximately 20 minutes before the procedure. Patient's entire back was prepped with ChloraPrep twice and draped with sterile utility drapes.? Sterilely draped C-arm was brought over operating field and square picture of L4 and L5 vertebra as well as sacral bone were demonstrated on the screen.? The point of interest were determined as the articular spaces of L4-5 and L5-S1 bilateral vertebras. Each point of interest projection to the skin was injected with small amount of lidocaine 2%. After that 22 gauge 5 inch needle was driven to the each joint in tunnel vision fashion on anterior posterior and lateral views. Lateral views was used to determine that the needle did not advance to were the foramina or spinal canal. When tip of the needle was sense to enter the joint injection of the contrast was performed demonstrating intra-articular spread of the contrast. The injection of the Kenalog mixed with bupivacaine was followed. Total dose of Kenalog was 40 mg. The patient tolerated procedure well. Upon completion of the injections needle was removed sterile dressing was applied. The patient was taken to the recovery room where she recovered uneventfully. She went home without immediate complications.
== END 2021-12-05 14:01 | disposition home or self-care (01) ==
PROVIDERS: PCP Internal Medicine; Visit Provider Anesthesiology
PROC: (CPT 64493; principal; 2021-12-05 12:20)
DX: M47.816 Spondylosis without myelopathy or radiculopathy, lumbar region (principal); M51.36 Other intervertebral disc degeneration, lumbar region; G89.4 Chronic pain syndrome; M54.2 Cervicalgia; J45.909 Unspecified asthma, uncomplicated; E11.9 Type 2 diabetes mellitus without complications; E66.01 Morbid (severe) obesity due to excess calories; Z68.41 Body mass index [BMI] 40.0-44.9, adult; Z79.891 Long term (current) use of opiate analgesic; Z79.84 Long term (current) use of oral hypoglycemic drugs; Z79.51 Long term (current) use of inhaled steroids; Z88.0 Allergy status to penicillin; Z91.040 Latex allergy status; Z88.8 Allergy status to other drugs, medicaments and biological substances; Z96.651 Presence of right artificial knee joint
CPT/HCPCS: 64493; 64494; 82947; J2250; J3300; J3301

== ENCOUNTER → 2021-12-10 17:15 | Outpatient (BNVA) | payer OTHER, SELFPAY | PROVIDERS: PCP Internal Medicine; Visit Provider Anesthesiology ==

== ENCOUNTER 2022-01-08 14:07 | Outpatient (REF) | payer OTHER, SELFPAY ==
--- NOTE | ~2022-01-08 | US_ITS ---
EXAMINATION: US THYROID CLINICAL INFORMATION: Nontoxic goiter, unspecified. COMPARISON: Thyroid ultrasound 03/21/2013. TECHNIQUE: Linear transducer grayscale and color Doppler examination with attention to the region of the thyroid. FINDINGS: SIZE: Measurements of the thyroid lobes and nodules are given in sagittal, anteroposterior and transverse dimensions respectively. Right Thyroid Lobe: 3.79 x 1.27 x 1.49 cm, volume 3.77 mL. Previously 4.4 x 1.4 x 1.2 cm, volume 3.9 mL. Parenchyma: The gland echotexture is homogeneous. Thyroid vascularity is normal. Left Thyroid Lobe: 3.23 x 0.95 x 1.63 cm, volume 2.64 mL. Previously 3.3 x 1.0 x 1.2 cm, volume 2.1 mL. Parenchyma: The gland echotexture is homogeneous. Thyroid vascularity is normal. Isthmus: 0.31 cm in maximum AP dimension. Previously 0.14 cm. Estimated total number of nodules greater than or equal to 1 cm: 0. Torch Straightener nodules are described as follows: 1. Location: Right mid. Size: 0.42 x 0.20 x 0.19 cm, volume 0.19 mL. Previously Not seen on the previous study. Nodule characteristics: Composition: Cystic(0). ACR TI-RADS total points: 0 ACR TI-RADS category: 1 NODES: No lymphadenopathy is seen in the tissue surrounding the thyroid gland. US/US thyroid IMPRESSION: Unremarkable-appearing thyroid gland with a small cyst in the midpole right lobe. ACR TI-RADS RECOMMENDATION REFERENCE: Ultrasound-guided fine-needle aspiration, followup ultrasound, no further follow up. * TR1 (0 point) and TR 2 (2 points): No FNA or follow up * TR3 (3 points): FNA if more than or equal to 2.5 cm in maximum dimension, followup ultrasound in 1, 3 and 5 years if 1.5 to 2.4 cm in maximum dimension. * TR4 (4-6 points): FNA if more than or equal to 1.5 cm in maximum dimension, followup ultrasound in 1, 2, 3 and 5 years if 1 to 1.4 cm in maximum dimension. * TR5 (more than or equal to 7 points): FNA if more than or equal to 1 cm in maximum dimension, followup ultrasound every year for 5 years if 0.5 to 0.9 cm in maximum dimension. * TR3, TR4 or TR5 nodules that are below the size threshold for follow up receive no follow up.
== END 2022-01-08 14:08 | disposition home or self-care (01) ==
LOC: HO.HMGCX 14:07
PROVIDERS: PCP Internal Medicine; Visit Provider Internal Medicine
DX: E04.9 Nontoxic goiter, unspecified (principal)
CPT/HCPCS: 76536

== ENCOUNTER 2022-01-15 12:45 | Emergency (ER) | payer OTHER, SELFPAY ==
[2022-01-15] VITALS (11 sets, daily range): BP systolic 166–223; BP diastolic 80–116; PULSE 72–92; RESP 12–22; TEMP 36.6–37.2; O2SAT 90–99; BMI 42.3
--- NOTE | 2022-01-15 | ECG_ITS ---
Test Reason : Chest pain Blood Pressure : / mmHG Vent. Rate : 083 BPM Atrial Rate : 083 BPM P-R Int : 140 ms QRS Dur : 084 ms QT Int : 394 ms P-R-T Axes : 029 033 044 degrees QTc Int : 462 ms Sinus rhythm with frequent Premature ventricular complexes and Premature atrial complexes Otherwise normal ECG When compared with ECG of 14-AUG-2020 17:08, Premature ventricular complexes are now Present Premature atrial complexes are now Present Referred By: Generic ED Physician Electronically Signed By:Antonio Espinosa
--- NOTE | ~2022-01-15 | CT_ITS ---
EXAMINATION: CT HEAD WITHOUT CONTRAST CLINICAL INFORMATION: Dizziness and headache COMPARISON: None TECHNIQUE: Contiguous axial imaging was performed from the skull base to vertex without intravenous administration of contrast. This CT examination was performed using dose optimization techniques as appropriate, variously including the following: *Automated exposure control *Adjustment of mA and/or kV according to patient size (this includes techniques or standardized protocols for targeted exams where dose is matched to indication/reason for exam; i.e. extremities or head) *Use of iterative reconstruction technique DLP: 795 mGy-cm FINDINGS: There is no evidence of acute intracranial hemorrhage or territorial infarction. No abnormal mass effect or midline shift is seen. Harris to white matter differentiation is well preserved. No extra-axial fluid collections are identified. The ventricles are normal in size. There is no abnormal attenuation within the brain parenchyma. The osseous structures and soft tissues are normal. The mastoid air cells and visualized portions of the paranasal sinuses are well aerated. CT/CT head/brain wo con IMPRESSION: No acute intracranial process seen.
--- NOTE | ~2022-01-15 | XR_ITS ---
EXAMINATION: XR CHEST CLINICAL INFORMATION: Chest pain. COMPARISON: Chest 02/17/2021 TECHNIQUE: Frontal view of the chest was obtained. FINDINGS: There is elevated right hemidiaphragm with hypoexpanded lungs. There is mild atelectatic changes in the right lung base. Heart size and progress clarities normal. No gross bony abnormality seen. XR/XR chest 1V IMPRESSION: Hypoexpanded lungs with elevated right hemidiaphragm. Platelike atelectatic changes right lung base.
[2022-01-15] MEDS: Ondansetron ODT 4 MG TAB.RAPDIS TRANSLINGU (12:52)
--- NOTE | 2022-01-15 13:17 | ED.CHESTPAIN ---
HPI - Chest Pain General Chief Complaint: Chest Pain Stated Complaint: chest pain ,vomitting Time Seen by Provider: 01/15/22 13:03 Source: patient Mode of arrival: ambulatory Limitations: no limitations History of Present Illness HPI narrative: 56-year-old female came in for evaluation of multiple complaints. Feeling lightheadedness with headache since yesterday, patient feels like going to pass out, with this feeling feeling nauseous and patient vomited few times since yesterday. Chest pain started since this morning pain is localized to the left side of the chest, pain described as constant, moderate 5/10, radiate to the left shoulder and left arm, no shortness of breath. No aggravating factor, no relieving factors. Patient feels very anxious never had this symptoms in the past. Related Data Home Medications Medication Instructions Recorded Confirmed vaporizers #1 ea 10/10/20 12/10/21 miscellaneous medical supply #1 ea 12/11/20 12/10/21 zolpidem 10 mg tablet 10 mg PO BEDTIME 05/08/21 12/10/21 buspirone 15 mg tablet 30 mg PO BID tab 09/19/21 12/10/21 clonidine HCl 0.1 mg tablet 0.1 mg PO DAILY tab 09/19/21 12/10/21 duloxetine 60 mg capsule,delayed 60 mg PO DAILY 09/19/21 12/10/21 release nabumetone 500 mg tablet 500 mg PO BID 09/19/21 12/10/21 mirtazapine 7.5 mg tablet 7.5 mg PO BEDTIME 10/09/21 12/10/21 buspirone 30 mg tablet 30 mg PO BID 10/29/21 12/10/21 Previous Rx's Medication Instructions Recorded blood pressure test kit-wrist #1 ea 09/13/20 (Blood Pressure Unit-Wrist) fluticasone propionate 50 2 spray INTRANASAL DAILY 30 Days 11/14/20 mcg/actuation nasal #16 g spray,suspension prochlorperazine maleate 10 mg 10 mg PO Q8H PRN #60 tab 11/14/20 tablet (Compazine) fluticasone propionate 110 2 puff INHALATION BID 30 Days #12 g 05/22/21 mcg/actuation HFA aerosol inhaler alcohol swabs 2 pad TOPICAL BID #100 ea 05/23/21 lancets 28 gauge (FreeStyle #100 ea 05/23/21 Lancets) pantoprazole 40 mg tablet,delayed 40 mg PO DAILY 30 Days #30 tab 06/30/21 release (Protonix) sennosides 8.6 mg capsule (senna) 17.2 mg PO BEDTIME 30 Days #60 cap 07/01/21 clotrimazole-betamethasone 1 1 appl TOPICAL BID PRN 7 Days #45 g 07/25/21 %-0.05 % topical cream blood sugar diagnostic (FreeStyle #100 ea 09/16/21 Lite Strips) blood-glucose meter (FreeStyle #1 ea 09/16/21 Lite Meter) ergocalciferol (vitamin D2) 1,250 1,250 mcg PO QWEEK 90 Days #13 cap 09/24/21 mcg (50,000 unit) capsule metoprolol tartrate 50 mg tablet 50 mg PO BID 90 Days #180 tab 10/08/21 acetaminophen 650 mg 650 mg PO Q12H PRN #60 tab 10/11/21 tablet,extended release (Tylenol Arthritis Pain) water for irrigation, sterile 1 irrig IRRIGATION DAILY #8000 ml 10/14/21 levothyroxine 112 mcg tablet 112 mcg PO DAILY #30 tab 10/23/21 blood pressure monitor #1 ea 10/24/21 pyridoxine (vitamin B6) 100 mg 100 mg PO DAILY 90 Days #90 tab 10/27/21 tablet sumatriptan succinate 25 mg tablet See Rx Instructions PO .COMPLEX 11/10/21 #14 tab estradiol (Estrace) See Rx Instructions .ROUTE DAILY 11/11/21 30 Days #42.5 g furosemide 40 mg tablet 40 mg PO DAILY 30 Days #30 tab 11/12/21 lancets 28 gauge (FreeStyle #100 ea 11/12/21 Lancets) loratadine 10 mg tablet 10 mg PO DAILY 90 Days #90 tab 11/13/21 metformin 500 mg tablet 500 mg PO BID #180 tab 11/15/21 albuterol sulfate 2.5 mg (3 mL) INHALATION TID PRN 11/18/21 30 Days #180 ml albuterol sulfate 90 mcg/actuation 2 puff INHALATION Q6H PRN 30 Days 11/18/21 aerosol inhaler (Ventolin HFA) #6.7 g dulaglutide 0.75 mg/0.5 mL 0.75 mg (0.5 mL) SUBCUT QWEEK #2 ml 11/18/21 subcutaneous pen injector (Trulicity) meclizine 25 mg tablet 25 mg PO BID PRN #30 tab 11/18/21 diabetic supplies, miscellan. #1 ea 12/03/21 flash glucose sensor (FreeStyle #1 ea 12/03/21 Julianne 2 Sensor) oxycodone-acetaminophen 5 mg-325 1 tab PO BID PRN 28 Days #36 tab 12/08/21 mg tablet (Percocet) ojytih-ijdqrneu-ddtnwqa 1 cap PO QID #120 cap 12/10/21 24,000-76,000-120,000 unit capsule,delayed rel (Creon) baclofen 10 mg tablet 10 mg PO TID 30 Days #90 tab 01/03/22 Allergies Allergy/AdvReac Type Severity Reaction Status Date / Time Penicillins Allergy Severe swelling Verified 12/10/21 17:17 adhesive tape [ADHESIVE TAPE] Allergy Intermediate RASH Verified 12/10/21 17:17 amoxicillin [AMOXICILLIN] Allergy Intermediate RASH,SWELLING, Verified 12/10/21 17:17 RASH/SWELLING latex Allergy Intermediate Rash Verified 12/10/21 17:17 Motrin Allergy Intermediate hypertensio Verified 12/10/21 17:17 n Review of Systems Review of Systems: All other systems are reviewed and are negative Constitutional: Reports as per HPI and Reports no additional constitutional complaints Eyes: Reports as per HPI and Reports no additional eye complaints Reports system reviewed and no additional complaints, except as documented Cardiovascular: Reports as per HPI and Reports no additional cardiovascular complaints Respiratory: Reports as per HPI and Reports no additional respiratory complaints Gastrointestinal: Reports as per HPI and Reports no additional gastrointestinal complaints Genitourinary: Reports no additional female genitourinary complaints Musculoskeletal: Reports no additional musculoskeletal complaints Skin/Breast: Reports system reviewed and no additional complaints, except as docu Psychiatric: Reports no additional psychiatric complaints Endocrine: Reports no additional endocrine complaints Hematologic/Lymphatic: Reports no additional hematologic/lymphatic complaints Allergic/Immunologic: Reports no additional allergic/immunologic complaints Reports system reviewed and no additional complaints, except as documented and Reports Abnormal speech present [facility] Past Medical History Medical History Arthropathy of facet joint Asthma Chronic pain (Unknown) Chronic pain syndrome Degeneration, intervertebral disc, cervical Diabetes mellitus Disc degeneration, lumbar Fibromyalgia LUDY (generalized anxiety disorder) Goiter Incontinence Insomnia Lumbar pain Moderately severe recurrent major depression Morbid (severe) obesity due to excess calories Multiple air fluid levels of small intestine determined by X-ray Renal calculi Sleep apnea Spondylosis of cervical spine at multiple levels without myelopathy Spondylosis of cervical spine at multiple levels without myelopathy Spondylosis of lumbar region without myelopathy or radiculopathy Surgical History Delivery by section History of cholecystectomy History of esophagogastroduodenoscopy (EGD) History of hysterectomy Hx of colonoscopy Family History Family History Father Past heart attack Anxiety Mother MOF (multiple organ failure) Brother HIV (human immunodeficiency virus infection) Sister Ovarian cancer Uterine cancer Bone cancer Lupus Daughter Guillain-[place] Sister Lupus History of open heart surgery Family/Other FH: mental illness Depression Maternal Aunt Breast cancer Maternal Aunt Tumor Social History Social History Household Members Other:: Housing: Apartment Alcohol intake: current Alcohol intake frequency: holidays/special occasions only Alcohol type: wine Patient Tobacco Use Status: Never used Tobacco e-Cigarette/Vaping Use: Never Used Second Hand Smoke Exposure: Yes Advance Directives: Yes Advance Directives on File: Yes Advance Directives Date on File: 07/03/15 service: No Current occupational status: disabled Physical Exam Vital Signs: Vital Signs: Last Vital Signs Pulse 73 01/15/22 14:20 Resp 16 01/15/22 14:20 BP 204/116 H 01/15/22 14:20 Pulse Ox 94 01/15/22 14:20 BMI result Body Mass Index 42.3 Vital signs have been reviewed as appeared to be correct. Blood pressure elevated.Heart rate normal. Respiration rate normal. Temperature normal. Oxygen saturation normal. Appearance: Anxious, Alert. Oriented X3. No acute distress. Head: Normal external exam. Normocephalic. Atraumatic. No Hanson signs noted. No raccoon eyes noted Eyes: PERRLA. EOMI. Conjunctiva and sclera normal. Eyelids normal. ENT: TM's Normal. Pharynx normal. Uvula midline. Moist mucous membranes. No trismus noted. No drooling noted. No muffled voice noted. Neck: Normal inspection. Neck supple. FROM. No adenopathy. Thyroid Normal. No meningeal signs. No neck mass noted. CVS: Normal heart rate and rhythm. Heart sound normal. No murmurs noted. Pulses normal throughout. Respiratory: No respiratory distress. Painless inspiration. Breath sounds normal. No wheezes/rales/rhonchi noted. Chest nontender. No accessory muscle usage noted or decreased air movement noted. Abdomen: Soft and nontender. Bowel sounds normal in all 4 quadrants. No distention noted. No organomegaly noted. No visible injury noted. Back: No CVA tenderness. Full range of motion noted. Skin: Skin warm and dry. Normal skin color. Normal skin turgor. No rashes/lesions/lacerations noted. Extremities: No lower extremity edema. Extremities exhibit normal range of motion. Extremities nontender. Neuro: Oriented X 3. Cranial nerve exam: II-XII are grossly intact No motor deficit. No sensory deficit. Reflexes normal. Course Course Course Narrative: Assessment and plan. A 56-year-old female presented with headache, dizziness, chest pain since yesterday, patient with history of hypertension taking metoprolol 50 mg b.i.d. patient stated that she is compliant with her medication and took her medicine in the morning, found to have a high blood pressure thought to be underlying cause of patient's symptoms. Leukocytosis (patient did not produce urine for UA yet) patient was given amlodipine for high blood pressure need to be monitored in the ED , signed out to Dr. Neal to re-evaluate and this but accordingly. MDM - Chest Pain Lab Data Attestation: I reviewed the patient's lab results. Result diagrams: 01/15/22 13:44 01/15/22 13:44 Labs: Lab Results 01/15/22 01/15/22 01/15/22 Range/Units 13:44 13:44 13:44 WBC 18.3 H (4.8-10.8) X10*3/uL RBC 5.89 H (4.20-5.50) X10*6/uL Hgb 14.2 (12.0-16.0) g/dl Hct 46.1 (37.0-47.0) % MCV 78.3 L (80.0-98.0) fL MCH 24.1 L (27.0-33.0) pg MCHC 30.8 L (31.0-35.0) g/dl RDW 17.3 H (11.0-16.0) % Plt Count 355 (160-400) X10*3/uL MPV 10.8 (9.4-12.3) fL Immature Gran % (Auto) 0.7 H (0.0-0.4) % Neut % (Auto) 88.2 H (45-73) % Lymph % (Auto) 8.8 L (20-40) % [place] % (Auto) 2.0 (2-11) % Eos % (Auto) 0.1 (0-4) % Baso % (Auto) 0.2 (0-2) % Lymph # (Auto) 1.6 (1.2-4.9) X10*3/uL [place] # (Auto) 0.4 (0.1-1.2) X10*3/uL Eos # (Auto) 0.0 (0.0-0.4) X10*3/uL Baso # (Auto) 0.0 (0.0-0.2) X10*3/uL Abs Immat Gran (auto) 0.12 H (0.00-0.03) X10*3/uL Absolute Neuts (auto) 16.2 H (2.0-8.3) x10*3/uL Absolute Nucleated RBC 0.000 (0.0-0.012) X10*3/uL Nucleated RBC % (auto) 0.0 (0.0-0.2) /100WBC D-Dimer High Sensitivty NG/ML Sodium 142 (135-145) mmol/L Potassium 4.2 (3.3-5.1) mmol/L Chloride 105 (96-108) mmol/L Carbon Dioxide 22 (22-29) mmol/L Anion Gap 19 (12-20) BUN 11 (9-16) mg/dL Creatinine 0.72 (0.5-1.4) mg/dL Estim Creat Clear Calc 119.8 Estimated GFR > 60 Random Glucose 185 H (60-115) mg/dL Calcium 9.9 (8.4-10.2) mg/dL Total Bilirubin 0.7 (0.0-1.0) mg/dL Direct Bilirubin 0.3 (0.0-0.5) mg/dL AST 26 (5-31) U/L ALT 46 H (0-31) U/L Alkaline Phosphatase 125 H (39-117) U/L Troponin I High Sens < 3.5 (<3.5-17.0) ng/L Total Protein 8.4 H (6.5-8.0) g/dL Albumin 4.5 (3.5-5.0) g/dL Lipase 40 (8-78) U/L 01/15/22 Range/Units 13:44 WBC (4.8-10.8) X10*3/uL RBC (4.20-5.50) X10*6/uL Hgb (12.0-16.0) g/dl Hct (37.0-47.0) % MCV (80.0-98.0) fL MCH (27.0-33.0) pg MCHC (31.0-35.0) g/dl RDW (11.0-16.0) % Plt Count (160-400) X10*3/uL MPV (9.4-12.3) fL Immature Gran % (Auto) (0.0-0.4) % Neut % (Auto) (45-73) % Lymph % (Auto) (20-40) % [place] % (Auto) (2-11) % Eos % (Auto) (0-4) % Baso % (Auto) (0-2) % Lymph # (Auto) (1.2-4.9) X10*3/uL [place] # (Auto) (0.1-1.2) X10*3/uL Eos # (Auto) (0.0-0.4) X10*3/uL Baso # (Auto) (0.0-0.2) X10*3/uL Abs Immat Gran (auto) (0.00-0.03) X10*3/uL Absolute Neuts (auto) (2.0-8.3) x10*3/uL Absolute Nucleated RBC (0.0-0.012) X10*3/uL Nucleated RBC % (auto) (0.0-0.2) /100WBC D-Dimer High Sensitivty 190 NG/ML Sodium (135-145) mmol/L Potassium (3.3-5.1) mmol/L Chloride (96-108) mmol/L Carbon Dioxide (22-29) mmol/L Anion Gap (12-20) BUN (9-16) mg/dL Creatinine (0.5-1.4) mg/dL Estim Creat Clear Calc Estimated GFR Random Glucose (60-115) mg/dL Calcium (8.4-10.2) mg/dL Total Bilirubin (0.0-1.0) mg/dL Direct Bilirubin (0.0-0.5) mg/dL AST (5-31) U/L ALT (0-31) U/L Alkaline Phosphatase (39-117) U/L Troponin I High Sens (<3.5-17.0) ng/L Total Protein (6.5-8.0) g/dL Albumin (3.5-5.0) g/dL Lipase (8-78) U/L Imaging Data CT scan - head: Attestation: I personally reviewed and interpreted this imaging study as follows: Radiologist's impression: No acute intracranial process Chest x-ray: Attestation: I personally reviewed and interpreted this imaging study as follows: Radiologist's impression: Hypoexpanded lungs with elevated right hemidiaphragm. Platelike atelectatic changes right lung base. ? ECG Data ECG #1: Attestation: I personally reviewed and interpreted this ECG as follows: Interpretation: Normal sinus rhythm at 83 beats per minutes with frequent PVCs and PACs, normal intervals, nonspecific ST-T changes. Discharge Plan Discharge Clinical Impression: Hypertension, Dizziness Patient Disposition: Still a Patient Prescriptions: No Action (DME) miscellaneous medical supply Misc See Rx Instructions .ROUTE .MEDSUPPLY Qty: 1 0RF Rx Instructions: As directed fluticasone propionate 110 mcg/actuation HFA aerosol inhaler 2 puff inhalation BID 30 Days Qty: 12 5RF alcohol swabs Pads, Medicated 2 pad topical BID Qty: 100 6RF (DME) lancets [FreeStyle Lancets] 28 gauge misc See Rx Instructions .Route Qty: 100 6RF Rx Instructions: BID pantoprazole [Protonix] 40 mg tablet,delayed release (DR/EC) 40 mg PO DAILY 30 Days Qty: 30 0RF ergocalciferol (vitamin D2) 1,250 mcg (50,000 unit) capsule 1,250 mcg PO QWEEK 90 Days Qty: 13 1RF metoprolol tartrate 50 mg tablet 50 mg PO BID 90 Days Qty: 180 1RF acetaminophen [Tylenol Arthritis Pain] 650 mg tablet extended release 650 mg PO Q12H PRN (Reason: pain) Qty: 60 3RF water for irrigation, sterile Solution 1 irrig irrigation DAILY Qty: 8000 8RF levothyroxine 112 mcg tablet 112 mcg PO DAILY Qty: 30 2RF (DME) blood pressure monitor Kit See Rx Instructions .Route Qty: 1 0RF Rx Instructions: As directed sumatriptan succinate 25 mg tablet See Rx Instructions PO .COMPLEX Qty: 14 0RF Rx Instructions: take 1 tab at onset of headache; if no relief may repeat 1 tab after at least 2 hrs; max = 4 tabs/24 hr PO estradiol [Estrace] 0.01 % (0.1 mg/gram) cream See Rx Instructions .Route DAILY 30 Days Qty: 42.5 0RF Rx Instructions: pea sized amount per urethra daily; furosemide 40 mg tablet 40 mg PO DAILY 30 Days Qty: 30 6RF (DME) lancets [FreeStyle Lancets] 28 gauge misc See Rx Instructions .Route Qty: 100 3RF Rx Instructions: Use 1 lancet once a day loratadine 10 mg tablet 10 mg PO DAILY 90 Days Qty: 90 3RF metformin 500 mg tablet 500 mg PO BID Qty: 180 2RF albuterol sulfate [Ventolin HFA] 90 mcg/actuation HFA aerosol inhaler 2 puff inhalation Q6H PRN (Reason: shortness of breath or wheezing) 30 Days Qty: 6.7 1RF albuterol sulfate 2.5 mg /3 mL (0.083 %) solution for nebulization 2.5 mg inhalation TID PRN (Reason: shortness of breath or wheezing) 30 Days Qty: 180 1RF meclizine 25 mg tablet 25 mg PO BID PRN (Reason: vertigo) Qty: 30 0RF (DME) FreeStyle Julianne 2 Sensor Kit See Rx Instructions .Route Qty: 1 2RF Rx Instructions: As directed (DME) diabetic supplies, miscellan. Misc See Rx Instructions .Route Qty: 1 0RF Rx Instructions: As directed oxycodone-acetaminophen [Percocet] 5-325 mg tablet 1 tab PO BID PRN (Reason: pain) 28 Days Qty: 36 0RF Rx Instructions: taper down the medication dose by taking 2 pills a day for 1 week, 1.5 pills a day following week, 1 pill a day week after that and 0.5 pill a day at the final week Creon 24,000-76,000 -120,000 unit capsule,delayed release(DR/EC) 1 cap PO QID Qty: 120 0RF baclofen 10 mg tablet 10 mg PO TID 30 Days Qty: 90 1RF fluticasone propionate 50 mcg/actuation spray,suspension 2 spray intranasal DAILY 30 Days Qty: 16 4RF prochlorperazine maleate [Compazine] 10 mg tablet 10 mg PO Q8H PRN (Reason: nausea and vomiting) Qty: 60 1RF zolpidem 10 mg tablet 10 mg PO BEDTIME 0RF (DME) blood pressure test kit-wrist [Blood Pressure Unit-Wrist] Kit See Rx Instructions .ROUTE .MEDSUPPLY Qty: 1 0RF Rx Instructions: to check blood pressure (DME) vaporizers [facility] See Rx Instructions ea .ROUTE .MEDSUPPLY Qty: 1 0RF Rx Instructions: As directed (DME) blood-glucose meter [FreeStyle Lite Meter] Kit See Rx Instructions .Route Qty: 1 0RF Rx Instructions: As directed (DME) FreeStyle Lite Strips Strip See Rx Instructions .Route Qty: 100 3RF Rx Instructions: use 1 test strip once a day Trulicity 0.75 mg/0.5 mL pen injector 0.75 mg subcut QWEEK Qty: 2 2RF duloxetine 60 mg capsule,delayed release(DR/EC) 60 mg PO DAILY 0RF buspirone 15 mg tablet 30 mg PO BID 0RF clonidine HCl 0.1 mg tablet 0.1 mg PO DAILY 0RF nabumetone 500 mg tablet 500 mg PO BID 0RF senna 8.6 mg capsule 17.2 mg PO BEDTIME 30 Days Qty: 60 3RF clotrimazole-betamethasone 1-0.05 % cream 1 appl topical BID PRN (Reason: itching) 7 Days Qty: 45 0RF buspirone 30 mg tablet 30 mg PO BID 0RF pyridoxine (vitamin B6) 100 mg tablet 100 mg PO DAILY 90 Days Qty: 90 1RF mirtazapine 7.5 mg tablet 7.5 mg PO BEDTIME 0RF
[2022-01-15] MEDS: LORazepam 2 MG/ML VIAL 1 MG IVPUSH (13:44)
[2022-01-15] MEDS: amLODIPine Besylate 2.5 MG TABLET PO (13:46)
[2022-01-15] MEDS: Meclizine HCl 25 MG TABLET PO (13:46)
[2022-01-15] MEDS: 0.9 % Sodium Chloride 1,000 ML 999 ML IV (13:47)
[2022-01-15 14:01] LABS: MANUAL DIFF FLAG NO
[2022-01-15 14:03] LABS: Basophils Percent Auto 0.2 % (0-2); Eosinophils Percent Auto 0.1 % (0-4); Hematocrit 46.1 % (37.0-47.0); Hemoglobin 14.2 g/dl (12.0-16.0); Imm Gran Abs Auto 0.12 X10*3/uL (0.00-0.03); Imm Gran Pct Auto 0.7 % (0.0-0.4); Lymphocytes Absolute Auto 1.6 X10*3/uL (1.2-4.9); Lymphocytes Percent Auto 8.8 % (20-40); Mean Corpuscular HGB Conc 30.8 g/dl (31.0-35.0); Mean Corpuscular Hemoglobin 24.1 pg (27.0-33.0); Mean Corpuscular Volume 78.3 fL (80.0-98.0); Mean Platelet Volume 10.8 fL (9.4-12.3); Monocytes Absolute Auto 0.4 X10*3/uL (0.1-1.2); Neutrophils Absolute Auto 16.2 x10*3/uL (2.0-8.3); Neutrophils Percent Auto 88.2 % (45-73); Platelet Count 355 X10*3/uL (160-400); Red Blood Count 5.89 X10*6/uL (4.20-5.50); Red Cell Distribution Width 17.3 % (11.0-16.0); White Blood Count 18.3 X10*3/uL (4.8-10.8)
[2022-01-15 14:19] LABS: D Dimer High Sensitivity 190 NG/ML
[2022-01-15 14:21] LABS: Alanine Aminotransferase 46 U/L (0-31); Albumin Level 4.5 g/dL (3.5-5.0); Alkaline Phosphatase 125 U/L (39-117); Anion Gap 19 (12-20); Aspartate Amino Transferase 26 U/L (5-31); Bilirubin Direct 0.3 mg/dL (0.0-0.5); Bilirubin Total 0.7 mg/dL (0.0-1.0); Blood Urea Nitrogen 11 mg/dL (9-16); Calcium 9.9 mg/dL (8.4-10.2); Carbon Dioxide 22 mmol/L (22-29); Chloride 105 mmol/L (96-108); Creatinine Clr Calc Pharmacy 119.8; Estimated Glomerular Filt Rate > 60; Glucose Random 185 mg/dL (60-115); Lipase 40 U/L (8-78); Potassium 4.2 mmol/L (3.3-5.1); Sodium 142 mmol/L (135-145); Total Protein 8.4 g/dL (6.5-8.0)
[2022-01-15 14:24] LABS: Troponin-I High Sensitivity < 3.5 ng/L (<3.5-17.0)
[2022-01-15] MEDS: Acetaminophen 325 MG TABLET 650 MG PO (15:23)
[2022-01-15] MEDS: ondansetron HCL 4 MG/2 ML VIAL IVPUSH (15:23)
[2022-01-15] MEDS: amLODIPine Besylate 5 MG TABLET PO ×2 (15:23→16:57)
[2022-01-15 16:26] LABS: Appearance Urine CLEAR; Color Urine YELLOW; Glucose Urine UA NEG (NEG); Leukocyte Esterase Urine NEG (NEG); Nitrite Urine NEG (NEG); UACC Culture Trigger NO; Urine Blood NEG (NEG); Urine Ketones 15 MG/DL (NEG); Urine Protein 2+ MG/DL (NEG-TRACE)
[2022-01-15 16:44] LABS: Bacteria Urine 1+ /LPF; Squamous Epithelial Cell Urine 2+ /LPF
[2022-01-15] MEDS: Labetalol HCL 100 MG/20 ML VIAL 10 MG IVPUSH (17:54)
[2022-01-15] MEDS: Prochlorperazine Edisylate 10 MG/2 ML VIAL IVPUSH (17:54)
[2022-01-15 20:26] LABS: Troponin-I High Sensitivity < 3.5 ng/L (<3.5-17.0)
[2022-01-15] MEDS: Labetalol HCL 100 MG TABLET PO (22:08)
--- NOTE | 2022-01-16 00:05 | ED.CHESTPAIN ---
HPI - Chest Pain General Chief Complaint: Chest Pain Stated Complaint: chest pain ,vomitting Time Seen by Provider: 01/15/22 13:03 Source: patient Mode of arrival: ambulatory Limitations: no limitations Related Data Home Medications Medication Instructions Recorded Confirmed vaporizers #1 ea 10/10/20 12/10/21 miscellaneous medical supply #1 ea 12/11/20 12/10/21 zolpidem 10 mg tablet 10 mg PO BEDTIME 05/08/21 12/10/21 buspirone 15 mg tablet 30 mg PO BID tab 09/19/21 12/10/21 clonidine HCl 0.1 mg tablet 0.1 mg PO DAILY tab 09/19/21 12/10/21 duloxetine 60 mg capsule,delayed 60 mg PO DAILY 09/19/21 12/10/21 release nabumetone 500 mg tablet 500 mg PO BID 09/19/21 12/10/21 mirtazapine 7.5 mg tablet 7.5 mg PO BEDTIME 10/09/21 12/10/21 buspirone 30 mg tablet 30 mg PO BID 10/29/21 12/10/21 Previous Rx's Medication Instructions Recorded blood pressure test kit-wrist #1 ea 09/13/20 (Blood Pressure Unit-Wrist) fluticasone propionate 50 2 spray INTRANASAL DAILY 30 Days 11/14/20 mcg/actuation nasal #16 g spray,suspension prochlorperazine maleate 10 mg 10 mg PO Q8H PRN #60 tab 11/14/20 tablet (Compazine) fluticasone propionate 110 2 puff INHALATION BID 30 Days #12 g 05/22/21 mcg/actuation HFA aerosol inhaler alcohol swabs 2 pad TOPICAL BID #100 ea 05/23/21 lancets 28 gauge (FreeStyle #100 ea 05/23/21 Lancets) pantoprazole 40 mg tablet,delayed 40 mg PO DAILY 30 Days #30 tab 06/30/21 release (Protonix) sennosides 8.6 mg capsule (senna) 17.2 mg PO BEDTIME 30 Days #60 cap 07/01/21 clotrimazole-betamethasone 1 1 appl TOPICAL BID PRN 7 Days #45 g 07/25/21 %-0.05 % topical cream blood sugar diagnostic (FreeStyle #100 ea 09/16/21 Lite Strips) blood-glucose meter (FreeStyle #1 ea 09/16/21 Lite Meter) ergocalciferol (vitamin D2) 1,250 1,250 mcg PO QWEEK 90 Days #13 cap 09/24/21 mcg (50,000 unit) capsule metoprolol tartrate 50 mg tablet 50 mg PO BID 90 Days #180 tab 10/08/21 acetaminophen 650 mg 650 mg PO Q12H PRN #60 tab 10/11/21 tablet,extended release (Tylenol Arthritis Pain) water for irrigation, sterile 1 irrig IRRIGATION DAILY #8000 ml 10/14/21 levothyroxine 112 mcg tablet 112 mcg PO DAILY #30 tab 10/23/21 blood pressure monitor #1 ea 10/24/21 pyridoxine (vitamin B6) 100 mg 100 mg PO DAILY 90 Days #90 tab 10/27/21 tablet sumatriptan succinate 25 mg tablet See Rx Instructions PO .COMPLEX 11/10/21 #14 tab estradiol (Estrace) See Rx Instructions .ROUTE DAILY 11/11/21 30 Days #42.5 g furosemide 40 mg tablet 40 mg PO DAILY 30 Days #30 tab 11/12/21 lancets 28 gauge (FreeStyle #100 ea 11/12/21 Lancets) loratadine 10 mg tablet 10 mg PO DAILY 90 Days #90 tab 11/13/21 metformin 500 mg tablet 500 mg PO BID #180 tab 11/15/21 albuterol sulfate 2.5 mg (3 mL) INHALATION TID PRN 11/18/21 30 Days #180 ml albuterol sulfate 90 mcg/actuation 2 puff INHALATION Q6H PRN 30 Days 11/18/21 aerosol inhaler (Ventolin HFA) #6.7 g dulaglutide 0.75 mg/0.5 mL 0.75 mg (0.5 mL) SUBCUT QWEEK #2 ml 11/18/21 subcutaneous pen injector (Trulicity) meclizine 25 mg tablet 25 mg PO BID PRN #30 tab 11/18/21 diabetic supplies, miscellan. #1 ea 12/03/21 flash glucose sensor (FreeStyle #1 ea 12/03/21 Julianne 2 Sensor) oxycodone-acetaminophen 5 mg-325 1 tab PO BID PRN 28 Days #36 tab 12/08/21 mg tablet (Percocet) lohrls-ixrdlwhc-kgwpdch 1 cap PO QID #120 cap 12/10/21 24,000-76,000-120,000 unit capsule,delayed rel (Creon) baclofen 10 mg tablet 10 mg PO TID 30 Days #90 tab 01/03/22 Allergies Allergy/AdvReac Type Severity Reaction Status Date / Time Penicillins Allergy Severe swelling Verified 12/10/21 17:17 adhesive tape [ADHESIVE TAPE] Allergy Intermediate RASH Verified 12/10/21 17:17 amoxicillin [AMOXICILLIN] Allergy Intermediate RASH,SWELLING, Verified 12/10/21 17:17 RASH/SWELLING latex Allergy Intermediate Rash Verified 12/10/21 17:17 Motrin Allergy Intermediate hypertensio Verified 12/10/21 17:17 n PMFSH Past Medical History Medical History Arthropathy of facet joint Asthma Chronic pain (Unknown) Chronic pain syndrome Degeneration, intervertebral disc, cervical Diabetes mellitus Disc degeneration, lumbar Fibromyalgia LUDY (generalized anxiety disorder) Goiter Incontinence Insomnia Lumbar pain Moderately severe recurrent major depression Morbid (severe) obesity due to excess calories Multiple air fluid levels of small intestine determined by X-ray Renal calculi Sleep apnea Spondylosis of cervical spine at multiple levels without myelopathy Spondylosis of cervical spine at multiple levels without myelopathy Spondylosis of lumbar region without myelopathy or radiculopathy Surgical History Delivery by section History of cholecystectomy History of esophagogastroduodenoscopy (EGD) History of hysterectomy Hx of colonoscopy Family History Family History Father Past heart attack Anxiety Mother MOF (multiple organ failure) Brother HIV (human immunodeficiency virus infection) Sister Ovarian cancer Uterine cancer Bone cancer Lupus Daughter Guillain-Spring Sister Lupus History of open heart surgery Family/Other FH: mental illness Depression Maternal Aunt Breast cancer Maternal Aunt Tumor Social History Social History Household Members Other:: Housing: Apartment Alcohol intake: current Alcohol intake frequency: holidays/special occasions only Alcohol type: wine Patient Tobacco Use Status: Never used Tobacco e-Cigarette/Vaping Use: Never Used Second Hand Smoke Exposure: Yes Advance Directives: Yes Advance Directives on File: Yes Advance Directives Date on File: 07/03/15 service: No Current occupational status: disabled Physical Exam Vital Signs: Vital Signs: Last Vital Signs Temp 98.7 F 01/15/22 23:59 Pulse 88 01/15/22 23:59 Resp 12 01/15/22 23:59 BP 181/93 H 01/15/22 23:59 Pulse Ox 95 01/15/22 23:59 BMI result Body Mass Index 42.3 Course Course Course Narrative: Patient's blood pressure has been consistently above 180, complaining of headache as well. Patient received MDM - Chest Pain Lab Data Result diagrams: 01/15/22 13:44 01/15/22 13:44 Labs: Lab Results 01/15/22 01/15/22 01/15/22 Range/Units 13:44 13:44 13:44 WBC 18.3 H (4.8-10.8) X10*3/uL RBC 5.89 H (4.20-5.50) X10*6/uL Hgb 14.2 (12.0-16.0) g/dl Hct 46.1 (37.0-47.0) % MCV 78.3 L (80.0-98.0) fL MCH 24.1 L (27.0-33.0) pg MCHC 30.8 L (31.0-35.0) g/dl RDW 17.3 H (11.0-16.0) % Plt Count 355 (160-400) X10*3/uL MPV 10.8 (9.4-12.3) fL Immature Gran % (Auto) 0.7 H (0.0-0.4) % Neut % (Auto) 88.2 H (45-73) % Lymph % (Auto) 8.8 L (20-40) % Stevens % (Auto) 2.0 (2-11) % Eos % (Auto) 0.1 (0-4) % Baso % (Auto) 0.2 (0-2) % Lymph # (Auto) 1.6 (1.2-4.9) X10*3/uL Stevens # (Auto) 0.4 (0.1-1.2) X10*3/uL Eos # (Auto) 0.0 (0.0-0.4) X10*3/uL Baso # (Auto) 0.0 (0.0-0.2) X10*3/uL Abs Immat Gran (auto) 0.12 H (0.00-0.03) X10*3/uL Absolute Neuts (auto) 16.2 H (2.0-8.3) x10*3/uL Absolute Nucleated RBC 0.000 (0.0-0.012) X10*3/uL Nucleated RBC % (auto) 0.0 (0.0-0.2) /100WBC D-Dimer High Sensitivty NG/ML Sodium 142 (135-145) mmol/L Potassium 4.2 (3.3-5.1) mmol/L Chloride 105 (96-108) mmol/L Carbon Dioxide 22 (22-29) mmol/L Anion Gap 19 (12-20) BUN 11 (9-16) mg/dL Creatinine 0.72 (0.5-1.4) mg/dL Estim Creat Clear Calc 119.8 Estimated GFR > 60 Random Glucose 185 H (60-115) mg/dL Calcium 9.9 (8.4-10.2) mg/dL Total Bilirubin 0.7 (0.0-1.0) mg/dL Direct Bilirubin 0.3 (0.0-0.5) mg/dL AST 26 (5-31) U/L ALT 46 H (0-31) U/L Alkaline Phosphatase 125 H (39-117) U/L Troponin I High Sens < 3.5 (<3.5-17.0) ng/L Total Protein 8.4 H (6.5-8.0) g/dL Albumin 4.5 (3.5-5.0) g/dL Lipase 40 (8-78) U/L Urine Color Urine Appearance Urine pH (5.0-8.0) Ur Specific [place] (1.005-1.025) Urine Protein (NEG-TRACE) MG/DL Urine Glucose (UA) (NEG) MG/DL Urine Ketones (NEG) MG/DL Urine Blood (NEG) Urine Nitrite (NEG) Ur Leukocyte Esterase (NEG) Urine RBC (0) /HPF Urine WBC (0-4) /HPF Ur Squamous Epith Cells /LPF Urine Bacteria /LPF 0401/15/22 01/15/22 Range/Units 13:44 16:20 19:55 WBC (4.8-10.8) X10*3/uL RBC (4.20-5.50) X10*6/uL Hgb (12.0-16.0) g/dl Hct (37.0-47.0) % MCV (80.0-98.0) fL MCH (27.0-33.0) pg MCHC (31.0-35.0) g/dl RDW (11.0-16.0) % Plt Count (160-400) X10*3/uL MPV (9.4-12.3) fL Immature Gran % (Auto) (0.0-0.4) % Neut % (Auto) (45-73) % Lymph % (Auto) (20-40) % Stevens % (Auto) (2-11) % Eos % (Auto) (0-4) % Baso % (Auto) (0-2) % Lymph # (Auto) (1.2-4.9) X10*3/uL Stevens # (Auto) (0.1-1.2) X10*3/uL Eos # (Auto) (0.0-0.4) X10*3/uL Baso # (Auto) (0.0-0.2) X10*3/uL Abs Immat Gran (auto) (0.00-0.03) X10*3/uL Absolute Neuts (auto) (2.0-8.3) x10*3/uL Absolute Nucleated RBC (0.0-0.012) X10*3/uL Nucleated RBC % (auto) (0.0-0.2) /100WBC D-Dimer High Sensitivty 190 NG/ML Sodium (135-145) mmol/L Potassium (3.3-5.1) mmol/L Chloride (96-108) mmol/L Carbon Dioxide (22-29) mmol/L Anion Gap (12-20) BUN (9-16) mg/dL Creatinine (0.5-1.4) mg/dL Estim Creat Clear Calc Estimated GFR Random Glucose (60-115) mg/dL Calcium (8.4-10.2) mg/dL Total Bilirubin (0.0-1.0) mg/dL Direct Bilirubin (0.0-0.5) mg/dL AST (5-31) U/L ALT (0-31) U/L Alkaline Phosphatase (39-117) U/L Troponin I High Sens < 3.5 (<3.5-17.0) ng/L Total Protein (6.5-8.0) g/dL Albumin (3.5-5.0) g/dL Lipase (8-78) U/L Urine Color YELLOW Urine Appearance CLEAR Urine pH 8.0 (5.0-8.0) Ur Specific [place] 1.020 (1.005-1.025) Urine Protein 2+ H (NEG-TRACE) MG/DL Urine Glucose (UA) NEG (NEG) MG/DL Urine Ketones 15 (NEG) MG/DL Urine Blood NEG (NEG) Urine Nitrite NEG (NEG) Ur Leukocyte Esterase NEG (NEG) Urine RBC 1-4 (0) /HPF Urine WBC 1-4 (0-4) /HPF Ur Squamous Epith Cells 2+ /LPF Urine Bacteria 1+ /LPF Discharge Plan Discharge Clinical Impression: Hypertension, Dizziness Patient Disposition: Still a Patient Prescriptions: No Action (DME) miscellaneous medical supply Misc See Rx Instructions .ROUTE .MEDSUPPLY Qty: 1 0RF Rx Instructions: As directed fluticasone propionate 110 mcg/actuation HFA aerosol inhaler 2 puff inhalation BID 30 Days Qty: 12 5RF alcohol swabs Pads, Medicated 2 pad topical BID Qty: 100 6RF (DME) lancets [FreeStyle Lancets] 28 gauge misc See Rx Instructions .Route Qty: 100 6RF Rx Instructions: BID pantoprazole [Protonix] 40 mg tablet,delayed release (DR/EC) 40 mg PO DAILY 30 Days Qty: 30 0RF ergocalciferol (vitamin D2) 1,250 mcg (50,000 unit) capsule 1,250 mcg PO QWEEK 90 Days Qty: 13 1RF metoprolol tartrate 50 mg tablet 50 mg PO BID 90 Days Qty: 180 1RF acetaminophen [Tylenol Arthritis Pain] 650 mg tablet extended release 650 mg PO Q12H PRN (Reason: pain) Qty: 60 3RF water for irrigation, sterile Solution 1 irrig irrigation DAILY Qty: 8000 8RF levothyroxine 112 mcg tablet 112 mcg PO DAILY Qty: 30 2RF (DME) blood pressure monitor Kit See Rx Instructions .Route Qty: 1 0RF Rx Instructions: As directed sumatriptan succinate 25 mg tablet See Rx Instructions PO .COMPLEX Qty: 14 0RF Rx Instructions: take 1 tab at onset of headache; if no relief may repeat 1 tab after at least 2 hrs; max = 4 tabs/24 hr PO estradiol [Estrace] 0.01 % (0.1 mg/gram) cream See Rx Instructions .Route DAILY 30 Days Qty: 42.5 0RF Rx Instructions: pea sized amount per urethra daily; furosemide 40 mg tablet 40 mg PO DAILY 30 Days Qty: 30 6RF (DME) lancets [FreeStyle Lancets] 28 gauge misc See Rx Instructions .Route Qty: 100 3RF Rx Instructions: Use 1 lancet once a day loratadine 10 mg tablet 10 mg PO DAILY 90 Days Qty: 90 3RF metformin 500 mg tablet 500 mg PO BID Qty: 180 2RF albuterol sulfate [Ventolin HFA] 90 mcg/actuation HFA aerosol inhaler 2 puff inhalation Q6H PRN (Reason: shortness of breath or wheezing) 30 Days Qty: 6.7 1RF albuterol sulfate 2.5 mg /3 mL (0.083 %) solution for nebulization 2.5 mg inhalation TID PRN (Reason: shortness of breath or wheezing) 30 Days Qty: 180 1RF meclizine 25 mg tablet 25 mg PO BID PRN (Reason: vertigo) Qty: 30 0RF (DME) FreeStyle Julianne 2 Sensor Kit See Rx Instructions .Route Qty: 1 2RF Rx Instructions: As directed (DME) diabetic supplies, [facility]ellan. [facility] See Rx Instructions .Route Qty: 1 0RF Rx Instructions: As directed oxycodone-acetaminophen [Percocet] 5-325 mg tablet 1 tab PO BID PRN (Reason: pain) 28 Days Qty: 36 0RF Rx Instructions: taper down the medication dose by taking 2 pills a day for 1 week, 1.5 pills a day following week, 1 pill a day week after that and 0.5 pill a day at the final week Creon 24,000-76,000 -120,000 unit capsule,delayed release(DR/EC) 1 cap PO QID Qty: 120 0RF baclofen 10 mg tablet 10 mg PO TID 30 Days Qty: 90 1RF fluticasone propionate 50 mcg/actuation spray,suspension 2 spray intranasal DAILY 30 Days Qty: 16 4RF prochlorperazine maleate [Compazine] 10 mg tablet 10 mg PO Q8H PRN (Reason: nausea and vomiting) Qty: 60 1RF zolpidem 10 mg tablet 10 mg PO BEDTIME 0RF (DME) blood pressure test kit-wrist [Blood Pressure Unit-Wrist] Kit See Rx Instructions .ROUTE .MEDSUPPLY Qty: 1 0RF Rx Instructions: to check blood pressure (DME) vaporizers Misc See Rx Instructions ea .ROUTE .MEDSUPPLY Qty: 1 0RF Rx Instructions: As directed (DME) blood-glucose meter [FreeStyle Lite Meter] Kit See Rx Instructions .Route Qty: 1 0RF Rx Instructions: As directed (DME) FreeStyle Lite Strips Strip See Rx Instructions .Route Qty: 100 3RF Rx Instructions: use 1 test strip once a day Trulicity 0.75 mg/0.5 mL pen injector 0.75 mg subcut QWEEK Qty: 2 2RF duloxetine 60 mg capsule,delayed release(DR/EC) 60 mg PO DAILY 0RF buspirone 15 mg tablet 30 mg PO BID 0RF clonidine HCl 0.1 mg tablet 0.1 mg PO DAILY 0RF nabumetone 500 mg tablet 500 mg PO BID 0RF senna 8.6 mg capsule 17.2 mg PO BEDTIME 30 Days Qty: 60 3RF clotrimazole-betamethasone 1-0.05 % cream 1 appl topical BID PRN (Reason: itching) 7 Days Qty: 45 0RF buspirone 30 mg tablet 30 mg PO BID 0RF pyridoxine (vitamin B6) 100 mg tablet 100 mg PO DAILY 90 Days Qty: 90 1RF mirtazapine 7.5 mg tablet 7.5 mg PO BEDTIME 0RF
[2022-01-16] MEDS: hydrALAZINE HCl 20 MG/ML VIAL IVPUSH (00:13)
== END 2022-01-16 01:22 | disposition home or self-care (01) ==
PROVIDERS: Emergency Medicine; Emergency Provider Emergency Medicine; PCP Internal Medicine
DX: I10 Essential (primary) hypertension (principal); R42 Dizziness and giddiness; R51.9 Headache, unspecified; E11.9 Type 2 diabetes mellitus without complications
CPT/HCPCS: 36415; 70450; 71045; 80048; 80076; 81001; 83690; 84484; 85025; 85379; 93005; 96361; 96374; 96375; 99284; J2060; J2405

== ENCOUNTER 2022-01-18 17:19 | Emergency (ER) | payer OTHER, SELFPAY ==
--- NOTE | ~2022-01-18 | XR_ITS ---
EXAMINATION: XR CHEST CLINICAL INFORMATION: Chest pain COMPARISON: 01/15/2022 TECHNIQUE: Frontal view of the chest was obtained. FINDINGS: No focal consolidation, pulmonary edema, or pleural effusion. Chronic elevation of the right hemidiaphragm. Stable cardiomediastinal silhouette. XR/XR chest 1V IMPRESSION: No acute cardiopulmonary findings. No significant change.
[2022-01-18 17:23] VITALS: BP 172/77; PULSE 76; RESP 12; TEMP 36.3; O2SAT 95; BMI 42.3
--- NOTE | 2022-01-18 17:28 | ECG_ITS ---
Test Reason : CHEST PAIN Blood Pressure : / mmHG Vent. Rate : 072 BPM Atrial Rate : 072 BPM P-R Int : 130 ms QRS Dur : 080 ms QT Int : 410 ms P-R-T Axes : 010 -07 006 degrees QTc Int : 448 ms Normal sinus rhythm Moderate voltage criteria for LVH, may be normal variant ( R in aVL , Sam product ) Borderline ECG When compared with ECG of 15-JAN-2022 12:59, Premature ventricular complexes are no longer Present Premature atrial complexes are no longer Present Nonspecific T wave abnormality now evident in Inferior leads Referred By: Generic ED Physician Electronically Signed By:MARISA SCHAFER MD
[2022-01-18 18:01] LABS: MANUAL DIFF FLAG NO
[2022-01-18 18:02] LABS: Basophils Percent Auto 0.1 % (0-2); Hematocrit 44.4 % (37.0-47.0); Hemoglobin 13.7 g/dl (12.0-16.0); Imm Gran Abs Auto 0.17 X10*3/uL (0.00-0.03); Imm Gran Pct Auto 0.8 % (0.0-0.4); Lymphocytes Absolute Auto 2.5 X10*3/uL (1.2-4.9); Lymphocytes Percent Auto 11.6 % (20-40); Mean Corpuscular HGB Conc 30.9 g/dl (31.0-35.0); Mean Corpuscular Hemoglobin 24.2 pg (27.0-33.0); Mean Corpuscular Volume 78.6 fL (80.0-98.0); Mean Platelet Volume 10.5 fL (9.4-12.3); Monocytes Absolute Auto 0.9 X10*3/uL (0.1-1.2); Monocytes Percent Auto 4.3 % (2-11); Neutrophils Absolute Auto 18.2 x10*3/uL (2.0-8.3); Neutrophils Percent Auto 83.2 % (45-73); Platelet Count 347 X10*3/uL (160-400); Red Blood Count 5.65 X10*6/uL (4.20-5.50); Red Cell Distribution Width 16.7 % (11.0-16.0); White Blood Count 21.9 X10*3/uL (4.8-10.8)
[2022-01-18 18:17] LABS: Anion Gap 18 (12-20); Blood Urea Nitrogen 34 mg/dL (9-16); Calcium 9.4 mg/dL (8.4-10.2); Carbon Dioxide 26 mmol/L (22-29); Chloride 99 mmol/L (96-108); Creatinine Clr Calc Pharmacy 76.2; Estimated Glomerular Filt Rate 50; Glucose Random 167 mg/dL (60-115); Potassium 3.9 mmol/L (3.3-5.1); Sodium 139 mmol/L (135-145)
[2022-01-18 18:17] LABS: COVID-19 Test Negative (Negative); IDNOW Serial# 16C4AD1C; Influenza A Negative (Negative); Influenza B2 Negative (Negative)
[2022-01-18 18:25] VITALS: BP 167/85; PULSE 73; RESP 24; O2SAT 97
[2022-01-18 18:25] LABS: Troponin-I High Sensitivity 7.7 ng/L (<3.5-17.0)
--- NOTE | 2022-01-18 19:10 | ED_ITS ---
HPI - Chest Pain General Chief Complaint: Chest Pain Stated Complaint: chest pain, n/v Time Seen by Provider: 01/18/22 19:10 Source: patient Mode of arrival: ambulatory Limitations: no limitations History of Present Illness HPI narrative: 56-year-old female who presents emergency department for evaluation of chest pain, palpitations, neck pain headache shortness of breath. The patient was seen in the emergency department on 01/16/2022 with similar presentation. The patient states that today she was sitting in a recliner chair and was laughing with her grand children when she had a gradual onset of chest pain. She points to her anterior chest and sternum when asked to localize the pain. The pain is a constant, sharp pain which is 10/10 at its worst. She also points to her clavicular notch and states that she can feel like her heart is beating fast and that area. She states that the pain did radiate to her left arm into the back of her neck. She had nausea with 2 episodes of emesis. She felt diaphoretic and lightheaded. She states that the pain was still present at time of my evaluation (5.5 hours). She did not take any medications for the pain at home. She states she has been compliant with her other medications. She denied fever but she did have chills, rhinorrhea, shortness of breath and dyspnea on exertion. She denied sore throat or cough. Related Data Home Medications Medication Instructions Recorded Confirmed vaporizers #1 ea 10/10/20 12/10/21 miscellaneous medical supply #1 ea 12/11/20 12/10/21 zolpidem 10 mg tablet 10 mg PO BEDTIME 05/08/21 12/10/21 buspirone 15 mg tablet 30 mg PO BID tab 09/19/21 12/10/21 clonidine HCl 0.1 mg tablet 0.1 mg PO DAILY tab 09/19/21 12/10/21 duloxetine 60 mg capsule,delayed 60 mg PO DAILY 09/19/21 12/10/21 release nabumetone 500 mg tablet 500 mg PO BID 09/19/21 12/10/21 mirtazapine 7.5 mg tablet 7.5 mg PO BEDTIME 10/09/21 12/10/21 buspirone 30 mg tablet 30 mg PO BID 10/29/21 12/10/21 Previous Rx's Medication Instructions Recorded blood pressure test kit-wrist #1 ea 09/13/20 (Blood Pressure Unit-Wrist) fluticasone propionate 50 2 spray INTRANASAL DAILY 30 Days 11/14/20 mcg/actuation nasal #16 g spray,suspension prochlorperazine maleate 10 mg 10 mg PO Q8H PRN #60 tab 11/14/20 tablet (Compazine) fluticasone propionate 110 2 puff INHALATION BID 30 Days #12 g 05/22/21 mcg/actuation HFA aerosol inhaler alcohol swabs 2 pad TOPICAL BID #100 ea 05/23/21 lancets 28 gauge (FreeStyle #100 ea 05/23/21 Lancets) pantoprazole 40 mg tablet,delayed 40 mg PO DAILY 30 Days #30 tab 06/30/21 release (Protonix) sennosides 8.6 mg capsule (senna) 17.2 mg PO BEDTIME 30 Days #60 cap 07/01/21 clotrimazole-betamethasone 1 1 appl TOPICAL BID PRN 7 Days #45 g 07/25/21 %-0.05 % topical cream blood sugar diagnostic (FreeStyle #100 ea 09/16/21 Lite Strips) blood-glucose meter (FreeStyle #1 ea 09/16/21 Lite Meter) ergocalciferol (vitamin D2) 1,250 1,250 mcg PO QWEEK 90 Days #13 cap 09/24/21 mcg (50,000 unit) capsule metoprolol tartrate 50 mg tablet 50 mg PO BID 90 Days #180 tab 10/08/21 acetaminophen 650 mg 650 mg PO Q12H PRN #60 tab 10/11/21 tablet,extended release (Tylenol Arthritis Pain) water for irrigation, sterile 1 irrig IRRIGATION DAILY #8000 ml 10/14/21 levothyroxine 112 mcg tablet 112 mcg PO DAILY #30 tab 10/23/21 blood pressure monitor #1 ea 10/24/21 pyridoxine (vitamin B6) 100 mg 100 mg PO DAILY 90 Days #90 tab 10/27/21 tablet sumatriptan succinate 25 mg tablet See Rx Instructions PO .COMPLEX 11/10/21 #14 tab estradiol (Estrace) See Rx Instructions .ROUTE DAILY 11/11/21 30 Days #42.5 g furosemide 40 mg tablet 40 mg PO DAILY 30 Days #30 tab 11/12/21 lancets 28 gauge (FreeStyle #100 ea 11/12/21 Lancets) loratadine 10 mg tablet 10 mg PO DAILY 90 Days #90 tab 11/13/21 metformin 500 mg tablet 500 mg PO BID #180 tab 11/15/21 albuterol sulfate 2.5 mg (3 mL) INHALATION TID PRN 11/18/21 30 Days #180 ml albuterol sulfate 90 mcg/actuation 2 puff INHALATION Q6H PRN 30 Days 11/18/21 aerosol inhaler (Ventolin HFA) #6.7 g dulaglutide 0.75 mg/0.5 mL 0.75 mg (0.5 mL) SUBCUT QWEEK #2 ml 11/18/21 subcutaneous pen injector (Trulicity) meclizine 25 mg tablet 25 mg PO BID PRN #30 tab 11/18/21 diabetic supplies, miscellan. #1 ea 12/03/21 flash glucose sensor (FreeStyle #1 ea 12/03/21 Julianne 2 Sensor) oxycodone-acetaminophen 5 mg-325 1 tab PO BID PRN 28 Days #36 tab 12/08/21 mg tablet (Percocet) dycebt-qhahvfrc-uhbynev 1 cap PO QID #120 cap 12/10/21 24,000-76,000-120,000 unit capsule,delayed rel (Creon) baclofen 10 mg tablet 10 mg PO TID 30 Days #90 tab 01/03/22 amlodipine 10 mg tablet 10 mg PO DAILY #30 tab 01/16/22 acetaminophen 500 mg tablet 500 mg PO Q6H PRN #30 tab 01/18/22 (Tylenol Extra Strength) ondansetron 4 mg disintegrating 4 mg PO Q6-8H PRN #14 tab 01/18/22 tablet oxycodone 5 mg tablet 5 mg PO Q4H PRN #14 tab 01/18/22 Allergies Allergy/AdvReac Type Severity Reaction Status Date / Time Penicillins Allergy Severe swelling Verified 12/10/21 17:17 adhesive tape [ADHESIVE TAPE] Allergy Intermediate RASH Verified 12/10/21 17:17 amoxicillin [AMOXICILLIN] Allergy Intermediate RASH,SWELLING, Verified 12/10/21 17:17 RASH/SWELLING latex Allergy Intermediate Rash Verified 12/10/21 17:17 Motrin Allergy Intermediate hypertensio Verified 12/10/21 17:17 n Review of Systems Review of Systems: Yes all other systems are reviewed and are negative [facility] Past Medical History [facility] Narrative: Social history: She denies tobacco, alcohol and drug use. Medical History Arthropathy of facet joint Asthma Chronic pain (Unknown) Chronic pain syndrome Degeneration, intervertebral disc, cervical Diabetes mellitus Disc degeneration, lumbar Fibromyalgia LUDY (generalized anxiety disorder) Goiter Incontinence Insomnia Lumbar pain Moderately severe recurrent major depression Morbid (severe) obesity due to excess calories Multiple air fluid levels of small intestine determined by X-ray Renal calculi Sleep apnea Spondylosis of cervical spine at multiple levels without myelopathy Spondylosis of cervical spine at multiple levels without myelopathy Spondylosis of lumbar region without myelopathy or radiculopathy Surgical History Delivery by section History of cholecystectomy History of esophagogastroduodenoscopy (EGD) History of hysterectomy Hx of colonoscopy Family History Family History Father Past heart attack Anxiety Mother MOF (multiple organ failure) Brother HIV (human immunodeficiency virus infection) Sister Ovarian cancer Uterine cancer Bone cancer Lupus Daughter Guillain-[place] Sister Lupus History of open heart surgery Family/Other FH: mental illness Depression Maternal Aunt Breast cancer Maternal Aunt Tumor Social History Social History Household Members Other:: Housing: Apartment Alcohol intake: current Alcohol intake frequency: holidays/special occasions only Alcohol type: wine Patient Tobacco Use Status: Never used Tobacco e-Cigarette/Vaping Use: Never Used Second Hand Smoke Exposure: Yes Advance Directives: Yes Advance Directives on File: Yes Advance Directives Date on File: 07/03/15 Patient : No service: No Current occupational status: disabled Physical Exam Vital Signs: Vital Signs: Last Vital Signs Temp 97.4 F 01/18/22 17:23 Pulse 77 01/18/22 21:06 Resp 22 H 01/18/22 21:06 BP 124/62 01/18/22 21:06 Pulse Ox 95 01/18/22 21:06 BMI result Body Mass Index 42.3 Const: General: cooperative and no acute distress Orientation/consciousness: oriented to person and oriented to place Limitations: no limitations HEENT: Head: Yes normal to inspection, Yes normocephalic and Yes atraumatic Ears: external ears normal General nose exam: Normal external nose present Face and sinus: Yes normal facial exam Mouth: Normal oral and palatal mucosa present Throat: Yes posterior oropharynx normal Eyes: General: appearance normal, both eyes and all related structures Pupils: Equal, round and reactive pupils present Neck: Neck: Yes normal visual inspection, Yes no lymphadenopathy, Yes trachea midline and Yes supple Chest: Chest palpation & inspection: normal inspection of the chest and tenderness (Moderate costochondral tenderness and sternal tenderness) Resp: Effort & Inspection: normal respiratory effort and able to speak in complete sentences Auscultation: clear to auscultation bilaterally Cardio: Rate: regular rate Rhythm: regular rhythm Heart sounds: S1 normal heart sound present, S2 normal heart sound present and no murmurs GI: Inspection: Yes normal to inspection Palpation (GI): Soft to palpation, nontender and no guarding Auscultation: normal bowel sounds : General: Yes no CVA tenderness Back/Spine/Pelvis: Back: no CVA tenderness Skin: General skin exam: no rashes or lesions noted Neuro: General: oriented to person and oriented to place Cranial nerves: Yes CN's II-XII intact bilaterally and Yes Equal, round and reactive pupils present Cognition (Neuro): normal cognition Motor exam (neuro): 5/5 motor strength present throughout Extrem: General: Yes normal to inspection Psych: Appearance: grossly normal Speech and movement: Normal speech and movement present Affect: normal affect Attitude: cooperative Thought process: Normal thought process present Thought content: Normal thought content present Course Course Course Narrative: 56-year-old female who presents emergency department for evaluation chest pain, palpitations, lightheadedness, dizziness, nausea, vomiting, diaphoresis with symptoms beginning at 13:00 hours while she was sitting in a reclining chair laughing with her grand children. Patient had a similar presentation on 01/15/2022 and was seen here in the emergency department with an unremarkable workup. The patient was noted to have an elevated blood pressure and amlodipine 10 mg was added to her BP regimen. At that time she had a CT scan of the head which was negative, 2 negative high sensitivity troponin I's, negative high sensitive the D-dimer and unremarkable chest x-ray. Vital signs today did revealed elevated blood pressure of 172/77 otherwise were unremarkable. Exam did reveal costochondral and sternal tenderness otherwise was unremarkable. 1957: Laboratory evaluation: WBC elevated 21,900, BUN elevated 34 with normal creatinine 1.13. Glucose elevated 167. COVID negative, influenza negative. Troponin at 17:45 was 7.7 (elevated but not detectable). Radiology evaluation: Chest x-ray no acute disease on my review. EKG: No acute STEMI or ischemic abnormalities. Patient was ordered to get morphine 4 mg IV and Zofran 4 mg IV. 2130: Patient's repeat high sensitivity troponin I was unchanged at 6.9. Fredrick mace got some relief with the above medications. She is still having pain so she was given oxycodone 10 mg orally and I believe she is anxious so she was treated with Ativan 1 mg orally. Presentation is consistent with costochondritis with anxiety. She was given prescriptions for oxycodone, onda nsetron ODT and Tylenol. MDM - Chest Pain Lab Data Result diagrams: 01/18/22 17:47 01/18/22 17:47 Labs: Lab Results 01/18/22 01/18/22 01/18/22 Range/Units 17:47 17:47 17:47 WBC 21.9 H (4.8-10.8) X10*3/uL RBC 5.65 H (4.20-5.50) X10*6/uL Hgb 13.7 (12.0-16.0) g/dl Hct 44.4 (37.0-47.0) % MCV 78.6 L (80.0-98.0) fL MCH 24.2 L (27.0-33.0) pg MCHC 30.9 L (31.0-35.0) g/dl RDW 16.7 H (11.0-16.0) % Plt Count 347 (160-400) X10*3/uL MPV 10.5 (9.4-12.3) fL Immature Gran % (Auto) 0.8 H (0.0-0.4) % Neut % (Auto) 83.2 H (45-73) % Lymph % (Auto) 11.6 L (20-40) % Sequoyah % (Auto) 4.3 (2-11) % Eos % (Auto) 0.0 (0-4) % Baso % (Auto) 0.1 (0-2) % Lymph # (Auto) 2.5 (1.2-4.9) X10*3/uL Sequoyah # (Auto) 0.9 (0.1-1.2) X10*3/uL Eos # (Auto) 0.0 (0.0-0.4) X10*3/uL Baso # (Auto) 0.0 (0.0-0.2) X10*3/uL Abs Immat Gran (auto) 0.17 H (0.00-0.03) X10*3/uL Absolute Neuts (auto) 18.2 H (2.0-8.3) x10*3/uL Absolute Nucleated RBC 0.000 (0.0-0.012) X10*3/uL Nucleated RBC % (auto) 0.0 (0.0-0.2) /100WBC PT (9.9-13.0) SEC INR (0.9-1.1) Sodium 139 (135-145) mmol/L Potassium 3.9 (3.3-5.1) mmol/L Chloride 99 (96-108) mmol/L Carbon Dioxide 26 (22-29) mmol/L Anion Gap 18 (12-20) BUN 34 H D (9-16) mg/dL Creatinine 1.13 (0.5-1.4) mg/dL Estim Creat Clear Calc 76.2 Estimated GFR 50 Random Glucose 167 H (60-115) mg/dL Calcium 9.4 (8.4-10.2) mg/dL Troponin I High Sens 7.7 D (<3.5-17.0) ng/L Lipase (8-78) U/L COVID-19 (CORNELL) (Negative) COVID-19 Clin Com Influenza Type A (TAL) (Negative) Influenza Type B (TAL) (Negative) Influenza A & B Note 01/18/22 01/18/22 01/18/22 Range/Units 17:53 17:53 19:26 WBC (4.8-10.8) X10*3/uL RBC (4.20-5.50) X10*6/uL Hgb (12.0-16.0) g/dl Hct (37.0-47.0) % MCV (80.0-98.0) fL MCH (27.0-33.0) pg MCHC (31.0-35.0) g/dl RDW (11.0-16.0) % Plt Count (160-400) X10*3/uL MPV (9.4-12.3) fL Immature Gran % (Auto) (0.0-0.4) % Neut % (Auto) (45-73) % Lymph % (Auto) (20-40) % Sequoyah % (Auto) (2-11) % Eos % (Auto) (0-4) % Baso % (Auto) (0-2) % Lymph # (Auto) (1.2-4.9) X10*3/uL Sequoyah # (Auto) (0.1-1.2) X10*3/uL Eos # (Auto) (0.0-0.4) X10*3/uL Baso # (Auto) (0.0-0.2) X10*3/uL Abs Immat Gran (auto) (0.00-0.03) X10*3/uL Absolute Neuts (auto) (2.0-8.3) x10*3/uL Absolute Nucleated RBC (0.0-0.012) X10*3/uL Nucleated RBC % (auto) (0.0-0.2) /100WBC PT 12.9 (9.9-13.0) SEC INR 1.1 (0.9-1.1) Sodium (135-145) mmol/L Potassium (3.3-5.1) mmol/L Chloride (96-108) mmol/L Carbon Dioxide (22-29) mmol/L Anion Gap (12-20) BUN (9-16) mg/dL Creatinine (0.5-1.4) mg/dL Estim Creat Clear Calc Estimated GFR Random Glucose (60-115) mg/dL Calcium (8.4-10.2) mg/dL Troponin I High Sens (<3.5-17.0) ng/L Lipase (8-78) U/L COVID-19 (CORNELL) Negative (Negative) COVID-19 Clin Com See Note Influenza Type A (TAL) Negative (Negative) Influenza Type B (TAL) Negative (Negative) Influenza A & B Note See Note 01/18/22 01/18/22 Range/Units 20:13 20:13 WBC (4.8-10.8) X10*3/uL RBC (4.20-5.50) X10*6/uL Hgb (12.0-16.0) g/dl Hct (37.0-47.0) % MCV (80.0-98.0) fL MCH (27.0-33.0) pg MCHC (31.0-35.0) g/dl RDW (11.0-16.0) % Plt Count (160-400) X10*3/uL MPV (9.4-12.3) fL Immature Gran % (Auto) (0.0-0.4) % Neut % (Auto) (45-73) % Lymph % (Auto) (20-40) % Sequoyah % (Auto) (2-11) % Eos % (Auto) (0-4) % Baso % (Auto) (0-2) % Lymph # (Auto) (1.2-4.9) X10*3/uL Sequoyah # (Auto) (0.1-1.2) X10*3/uL Eos # (Auto) (0.0-0.4) X10*3/uL Baso # (Auto) (0.0-0.2) X10*3/uL Abs Immat Gran (auto) (0.00-0.03) X10*3/uL Absolute Neuts (auto) (2.0-8.3) x10*3/uL Absolute Nucleated RBC (0.0-0.012) X10*3/uL Nucleated RBC % (auto) (0.0-0.2) /100WBC PT (9.9-13.0) SEC INR (0.9-1.1) Sodium (135-145) mmol/L Potassium (3.3-5.1) mmol/L Chloride (96-108) mmol/L Carbon Dioxide (22-29) mmol/L Anion Gap (12-20) BUN (9-16) mg/dL Creatinine (0.5-1.4) mg/dL Estim Creat Clear Calc Estimated GFR Random Glucose (60-115) mg/dL Calcium (8.4-10.2) mg/dL Troponin I High Sens 6.9 (<3.5-17.0) ng/L Lipase 112 H (8-78) U/L COVID-19 (CORNELL) (Negative) COVID-19 Clin Com Influenza Type A (TAL) (Negative) Influenza Type B (TAL) (Negative) Influenza A & B Note ECG Data ECG #1: Interpretation: 1729: Normal sinus rhythm with a rate of 72, normal DE interval, QRS duration and QTC interval, no ST segment elevation, no ST segment depression. Compared to EKG dated 01/15/2022, no significant changes. Discharge Plan Discharge Clinical Impression: Acute costochondritis, Anxiety, Palpitations Patient Disposition: Home, Self-Care Instructions: Costochondritis (ED) Additional Instructions: Your chest pain is caused by inflammation of the joints of your chest (costochondritis). Your blood work did reveal an elevated white blood count of 21,900. Your other labs were consistent with dehydration with an elevated BUN and creatinine. Your treated here in the emergency department with normal saline IV x1 L, morphine 4 mg IV, Ativan 1 mg orally and oxycodone 10 mg orally. Take Zofran ODT 4 mg pills, 1 pill dissolved in your mouth every 8 hours as needed for nausea and vomiting. Take Tylenol (acetaminophen) 500 mg pills, 2 pills every 4-6 hours as needed for pain. For pain not relieved by ibuprofen or Tylenol take oxycodone 5 mg pills, 1 pill every 4 hours as needed for pain. Do not drive or work while taking this medication since they can cause sleepiness. Oxycodone is a narcotic medication that can be addicting. If you are concerned about addiction you can ask the pharmacist for less pills or do not get this prescription filled. Follow-up with your doctor in 2 days. Please return to the emergency department if your symptoms get worse or if you develop any symptoms that are concerning to you. Prescriptions: New acetaminophen [Tylenol Extra Strength] 500 mg tablet 500 mg PO Q6H PRN (Reason: fever or pain) Qty: 30 0RF ondansetron 4 mg tablet,disintegrating 4 mg PO Q6-8H PRN (Reason: nausea and vomiting) Qty: 14 0RF oxycodone 5 mg tablet 5 mg PO Q4H PRN (Reason: pain) Qty: 14 0RF Rx Instructions: Patient may request partial fill No Action (DME) miscellaneous medical supply [facility] See Rx Instructions .ROUTE .MEDSUPPLY Qty: 1 0RF Rx Instructions: As directed fluticasone propionate 110 mcg/actuation HFA aerosol inhaler 2 puff inhalation BID 30 Days Qty: 12 5RF alcohol swabs Pads, Medicated 2 pad topical BID Qty: 100 6RF (DME) lancets [FreeStyle Lancets] 28 gauge misc See Rx Instructions .Route Qty: 100 6RF Rx Instructions: BID pantoprazole [Protonix] 40 mg tablet,delayed release (DR/EC) 40 mg PO DAILY 30 Days Qty: 30 0RF ergocalciferol (vitamin D2) 1,250 mcg (50,000 unit) capsule 1,250 mcg PO QWEEK 90 Days Qty: 13 1RF metoprolol tartrate 50 mg tablet 50 mg PO BID 90 Days Qty: 180 1RF acetaminophen [Tylenol Arthritis Pain] 650 mg tablet extended release 650 mg PO Q12H PRN (Reason: pain) Qty: 60 3RF water for irrigation, sterile Solution 1 irrig irrigation DAILY Qty: 8000 8RF levothyroxine 112 mcg tablet 112 mcg PO DAILY Qty: 30 2RF (DME) blood pressure monitor Kit See Rx Instructions .Route Qty: 1 0RF Rx Instructions: As directed sumatriptan succinate 25 mg tablet See Rx Instructions PO .COMPLEX Qty: 14 0RF Rx Instructions: take 1 tab at onset of headache; if no relief may repeat 1 tab after at least 2 hrs; max = 4 tabs/24 hr PO estradiol [Estrace] 0.01 % (0.1 mg/gram) cream See Rx Instructions .Route DAILY 30 Days Qty: 42.5 0RF Rx Instructions: pea sized amount per urethra daily; furosemide 40 mg tablet 40 mg PO DAILY 30 Days Qty: 30 6RF (DME) lancets [FreeStyle Lancets] 28 gauge misc See Rx Instructions .Route Qty: 100 3RF Rx Instructions: Use 1 lancet once a day loratadine 10 mg tablet 10 mg PO DAILY 90 Days Qty: 90 3RF metformin 500 mg tablet 500 mg PO BID Qty: 180 2RF albuterol sulfate [Ventolin HFA] 90 mcg/actuation HFA aerosol inhaler 2 puff inhalation Q6H PRN (Reason: shortness of breath or wheezing) 30 Days Qty: 6.7 1RF albuterol sulfate 2.5 mg /3 mL (0.083 %) solution for nebulization 2.5 mg inhalation TID PRN (Reason: shortness of breath or wheezing) 30 Days Qty: 180 1RF meclizine 25 mg tablet 25 mg PO BID PRN (Reason: vertigo) Qty: 30 0RF (DME) FreeStyle Julianne 2 Sensor Kit See Rx Instructions .Route Qty: 1 2RF Rx Instructions: As directed (DME) diabetic supplies, miscellan. [facility] See Rx Instructions .Route Qty: 1 0RF Rx Instructions: As directed oxycodone-acetaminophen [Percocet] 5-325 mg tablet 1 tab PO BID PRN (Reason: pain) 28 Days Qty: 36 0RF Rx Instructions: taper down the medication dose by taking 2 pills a day for 1 week, 1.5 pills a day following week, 1 pill a day week after that and 0.5 pill a day at the final week Creon 24,000-76,000 -120,000 unit capsule,delayed release(DR/EC) 1 cap PO QID Qty: 120 0RF baclofen 10 mg tablet 10 mg PO TID 30 Days Qty: 90 1RF amlodipine 10 mg tablet 10 mg PO DAILY Qty: 30 0RF fluticasone propionate 50 mcg/actuation spray,suspension 2 spray intranasal DAILY 30 Days Qty: 16 4RF prochlorperazine maleate [Compazine] 10 mg tablet 10 mg PO Q8H PRN (Reason: nausea and vomiting) Qty: 60 1RF zolpidem 10 mg tablet 10 mg PO BEDTIME 0RF (DME) blood pressure test kit-wrist [Blood Pressure Unit-Wrist] Kit See Rx Instructions .ROUTE .MEDSUPPLY Qty: 1 0RF Rx Instructions: to check blood pressure (DME[place] [facility] [place] Instructions ea .ROUTE .MEDSUPPLY Qty: 1 0RF Rx Instructions: As directed (DME) blood-glucose meter [FreeStyle Lite Meter] Kit See Rx Instructions .Route Qty: 1 0RF Rx Instructions: As directed (DME) FreeStyle Lite Strips Strip See Rx Instructions .Route Qty: 100 3RF Rx Instructions: use 1 test strip once a day Trulicity 0.75 mg/0.5 mL pen injector 0.75 mg subcut QWEEK Qty: 2 2RF duloxetine 60 mg capsule,delayed release(DR/EC) 60 mg PO DAILY 0RF buspirone 15 mg tablet 30 mg PO BID 0RF clonidine HCl 0.1 mg tablet 0.1 mg PO DAILY 0RF nabumetone 500 mg tablet 500 mg PO BID 0RF senna 8.6 mg capsule 17.2 mg PO BEDTIME 30 Days Qty: 60 3RF clotrimazole-betamethasone 1-0.05 % cream 1 appl topical BID PRN (Reason: itching) 7 Days Qty: 45 0RF buspirone 30 mg tablet 30 mg PO BID 0RF pyridoxine (vitamin B6) 100 mg tablet 100 mg PO DAILY 90 Days Qty: 90 1RF mirtazapine 7.5 mg tablet 7.5 mg PO BEDTIME 0RF
[2022-01-18 19:42] LABS: INTERNATIONAL NORM RATIO 1.1 (0.9-1.1); Prothrombin Time 12.9 SEC (9.9-13.0)
[2022-01-18] MEDS: ondansetron HCL 4 MG/2 ML VIAL IVPUSH (20:10)
[2022-01-18] MEDS: 0.9 % Sodium Chloride 1,000 ML 999 ML IV (20:10)
[2022-01-18] MEDS: Morphine Sulfate 4 MG/ML CARTRIDGE IVPUSH (20:10)
--- NOTE | 2022-01-18 20:12 | PC.NURSE ---
IV established, pt medicated per MAR, IVF infusing. Call reyes within reach, continue to monitor.
[2022-01-18 20:45] LABS: Troponin-I High Sensitivity 6.9 ng/L (<3.5-17.0)
[2022-01-18 20:48] LABS: Lipase 112 U/L (8-78)
[2022-01-18 21:06] VITALS: BP 124/62; PULSE 77; RESP 22; O2SAT 95
[2022-01-18 21:24] LABS: Appearance Urine CLEAR; Color Urine YELLOW; Glucose Urine UA NEG (NEG); Leukocyte Esterase Urine NEG (NEG); Nitrite Urine NEG (NEG); Urine Blood NEG (NEG); Urine Ketones NEG (NEG); Urine Protein NEG (NEG-TRACE)
[2022-01-18] MEDS: LORazepam 1 MG TABLET PO (21:42)
[2022-01-18] MEDS: oxyCODONE HCl Immed Release 5 MG TABLET 10 MG PO (21:42)
== END 2022-01-18 22:55 | disposition home or self-care (01) ==
PROVIDERS: Emergency Provider Emergency Medicine Emergency Medical Services; PCP Internal Medicine
DX: M94.0 Chondrocostal junction syndrome [Tietze] (principal); F41.9 Anxiety disorder, unspecified; R00.2 Palpitations; E11.9 Type 2 diabetes mellitus without complications; J45.909 Unspecified asthma, uncomplicated; Z20.822 Contact with and (suspected) exposure to COVID-19
CPT/HCPCS: 36415; 71045; 80048; 81003; 83690; 84484; 85025; 85610; 87502; 87635; 93005; 96361; 96374; 96375; 99284; J2270; J2405

== ENCOUNTER 2022-01-25 16:16 | Emergency (ER) | payer OTHER, SELFPAY ==
[2022-01-25 16:26] VITALS: BP 112/67; PULSE 80; RESP 18; TEMP 37; O2SAT 96; BMI 41.5
[2022-01-25 16:40] LABS: MANUAL DIFF FLAG NO
[2022-01-25 16:45] LABS: Eosinophils Percent Auto 0.1 % (0-4); Hematocrit 41.7 % (37.0-47.0); Hemoglobin 12.8 g/dl (12.0-16.0); Imm Gran Abs Auto 0.12 X10*3/uL (0.00-0.03); Imm Gran Pct Auto 1.3 % (0.0-0.4); Lymphocytes Absolute Auto 1.8 X10*3/uL (1.2-4.9); Mean Corpuscular HGB Conc 30.7 g/dl (31.0-35.0); Mean Corpuscular Hemoglobin 24.3 pg (27.0-33.0); Mean Corpuscular Volume 79.3 fL (80.0-98.0); Mean Platelet Volume 11.1 fL (9.4-12.3); Monocytes Absolute Auto 0.6 X10*3/uL (0.1-1.2); Monocytes Percent Auto 6.5 % (2-11); Neutrophils Absolute Auto 6.8 x10*3/uL (2.0-8.3); Neutrophils Percent Auto 73.1 % (45-73); Platelet Count 302 X10*3/uL (160-400); Red Blood Count 5.26 X10*6/uL (4.20-5.50); White Blood Count 9.3 X10*3/uL (4.8-10.8)
[2022-01-25 17:06] LABS: Alanine Aminotransferase 80 U/L (0-31); Albumin Level 3.8 g/dL (3.5-5.0); Alkaline Phosphatase 89 U/L (39-117); Anion Gap 11 (12-20); Aspartate Amino Transferase 31 U/L (5-31); Bilirubin Total 0.3 mg/dL (0.0-1.0); Blood Urea Nitrogen 17 mg/dL (9-16); Calcium 8.7 mg/dL (8.4-10.2); Carbon Dioxide 32 mmol/L (22-29); Chloride 100 mmol/L (96-108); Creatinine Clr Calc Pharmacy 110.8; Estimated Glomerular Filt Rate > 60; Glucose Random 146 mg/dL (60-115); Potassium 4.1 mmol/L (3.3-5.1); Sodium 139 mmol/L (135-145); Total Protein 7.1 g/dL (6.5-8.0)
--- NOTE | 2022-01-25 20:23 | ED_ITS ---
HPI - General Adult General Chief complaint: General Medical Stated complaint: back pain/liver pain/weakness Time Seen by Provider: 01/25/22 20:23 Source: patient Mode of arrival: ambulatory Limitations: no limitations History of Present Illness HPI narrative: Patient with history of chronic constipation fatty liver depression coming here for right upper quadrant pain for last 1 week patient been here 3 times already for in last 10 days for different problems parent also complaining of nausea. No vomiting no fever no chills also patient has chronic back pain complaining of pain in the back no recent trauma no focal deficit patient had normal bowel movement today patient is status post cholecystectomy Related Data Home Medications Medication Instructions Recorded Confirmed vaporizers #1 ea 10/10/20 01/22/22 miscellaneous medical supply #1 ea 12/11/20 01/22/22 zolpidem 10 mg tablet 10 mg PO BEDTIME 05/08/21 01/22/22 buspirone 15 mg tablet 30 mg PO BID tab 09/19/21 01/25/22 clonidine HCl 0.1 mg tablet 0.1 mg PO DAILY tab 09/19/21 01/25/22 duloxetine 60 mg capsule,delayed 60 mg PO DAILY 09/19/21 01/25/22 release nabumetone 500 mg tablet 500 mg PO BID 09/19/21 01/22/22 mirtazapine 7.5 mg tablet 15 mg PO BEDTIME 10/09/21 01/25/22 buspirone 30 mg tablet 30 mg PO BID 10/29/21 01/22/22 Previous Rx's Medication Instructions Recorded blood pressure test kit-wrist #1 ea 09/13/20 (Blood Pressure Unit-Wrist) fluticasone propionate 50 2 spray INTRANASAL DAILY 30 Days 11/14/20 mcg/actuation nasal #16 g spray,suspension prochlorperazine maleate 10 mg 10 mg PO Q8H PRN #60 tab 11/14/20 tablet (Compazine) fluticasone propionate 110 2 puff INHALATION BID 30 Days #12 g 05/22/21 mcg/actuation HFA aerosol inhaler alcohol swabs 2 pad TOPICAL BID #100 ea 05/23/21 lancets 28 gauge (FreeStyle #100 ea 05/23/21 Lancets) pantoprazole 40 mg tablet,delayed 40 mg PO DAILY 30 Days #30 tab 06/30/21 release (Protonix) sennosides 8.6 mg capsule (senna) 17.2 mg PO BEDTIME 30 Days #60 cap 07/01/21 clotrimazole-betamethasone 1 1 appl TOPICAL BID PRN 7 Days #45 g 07/25/21 %-0.05 % topical cream blood sugar diagnostic (FreeStyle #100 ea 09/16/21 Lite Strips) blood-glucose meter (FreeStyle #1 ea 09/16/21 Lite Meter) ergocalciferol (vitamin D2) 1,250 1,250 mcg PO QWEEK 90 Days #13 cap 09/24/21 mcg (50,000 unit) capsule metoprolol tartrate 50 mg tablet 50 mg PO BID 90 Days #180 tab 10/08/21 acetaminophen 650 mg 650 mg PO Q12H PRN #60 tab 10/11/21 tablet,extended release (Tylenol Arthritis Pain) water for irrigation, sterile 1 irrig IRRIGATION DAILY #8000 ml 10/14/21 levothyroxine 112 mcg tablet 112 mcg PO DAILY #30 tab 10/23/21 pyridoxine (vitamin B6) 100 mg 100 mg PO DAILY 90 Days #90 tab 10/27/21 tablet sumatriptan succinate 25 mg tablet See Rx Instructions PO .COMPLEX 11/10/21 #14 tab estradiol (Estrace) See Rx Instructions .ROUTE DAILY 11/11/21 30 Days #42.5 g furosemide 40 mg tablet 40 mg PO DAILY 30 Days #30 tab 11/12/21 lancets 28 gauge (FreeStyle #100 ea 11/12/21 Lancets) loratadine 10 mg tablet 10 mg PO DAILY 90 Days #90 tab 11/13/21 metformin 500 mg tablet 500 mg PO BID #180 tab 11/15/21 albuterol sulfate 2.5 mg (3 mL) INHALATION TID PRN 11/18/21 30 Days #180 ml albuterol sulfate 90 mcg/actuation 2 puff INHALATION Q6H PRN 30 Days 11/18/21 aerosol inhaler (Ventolin HFA) #6.7 g dulaglutide 0.75 mg/0.5 mL 0.75 mg (0.5 mL) SUBCUT QWEEK #2 ml 11/18/21 subcutaneous pen injector (Trulicity) meclizine 25 mg tablet 25 mg PO BID PRN #30 tab 11/18/21 diabetic supplies, miscellan. #1 ea 12/03/21 flash glucose sensor (FreeStyle #1 ea 12/03/21 Julianne 2 Sensor) baclofen 10 mg tablet 10 mg PO TID 30 Days #90 tab 01/03/22 amlodipine 10 mg tablet 10 mg PO DAILY #30 tab 01/16/22 acetaminophen 500 mg tablet 500 mg PO Q6H PRN #30 tab 01/18/22 (Tylenol Extra Strength) ondansetron 4 mg disintegrating 4 mg PO Q6-8H PRN #14 tab 01/18/22 tablet heating pads #1 ea 01/21/22 prednisone 10 mg tablet 10 mg PO DAILY PRN 6 Days #12 tab 01/22/22 Shower Chair #1 ea 01/23/22 blood pressure monitor #1 ea 01/23/22 [id number] 1 cap PO QID #120 cap 01/23/22 24,000-76,000-120,000 unit capsule,delayed rel (Creon) Allergies Allergy/AdvReac Type Severity Reaction Status Date / Time Penicillins Allergy Severe swelling Verified 01/22/22 13:42 adhesive tape [ADHESIVE TAPE] Allergy Intermediate RASH Verified 01/22/22 13:42 amoxicillin [AMOXICILLIN] Allergy Intermediate RASH,SWELLING, Verified 01/22/22 13:42 RASH/SWELLING latex Allergy Intermediate Rash Verified 01/22/22 13:42 Motrin Allergy Intermediate hypertensio Verified 01/22/22 13:42 n Review of Systems Review of Systems: Yes all other systems are reviewed and are negative PMFSH Past Medical History Medical History Arthropathy of facet joint Asthma Chronic pain (Unknown) Chronic pain syndrome Degeneration, intervertebral disc, cervical Diabetes mellitus Disc degeneration, lumbar Fibromyalgia LUDY (generalized anxiety disorder) Goiter Incontinence Insomnia Lumbar pain Moderately severe recurrent major depression Morbid (severe) obesity due to excess calories Multiple air fluid levels of small intestine determined by X-ray Renal calculi Sleep apnea Spondylosis of cervical spine at multiple levels without myelopathy Spondylosis of cervical spine at multiple levels without myelopathy Spondylosis of lumbar region without myelopathy or radiculopathy Surgical History Delivery by section History of cholecystectomy History of esophagogastroduodenoscopy (EGD) History of hysterectomy Hx of colonoscopy Family History Family History Father Past heart attack Anxiety Mother MOF (multiple organ failure) Brother HIV (human immunodeficiency virus infection) Sister Ovarian cancer Uterine cancer Bone cancer Lupus Daughter Guillain-Luling Sister Lupus History of open heart surgery Family/Other FH: mental illness Depression Maternal Aunt Breast cancer Maternal Aunt Tumor Social History Social History Household Members Other:: Housing: Apartment Alcohol intake: current Alcohol intake frequency: holidays/special occasions only Alcohol type: wine Patient Tobacco Use Status: Never used Tobacco e-Cigarette/Vaping Use: Never Used Second Hand Smoke Exposure: Yes Advance Directives: Yes Advance Directives on File: Yes Advance Directives Date on File: 12/08/21 service: No Current occupational status: disabled Cognitive needs: No Hearing needs: No Vision needs: No Physical Exam ED Vital Signs: Vital Signs - 24 hr 01/25/22 16:26 01/25/22 20:26 Temperature 98.6 F 98.0 F Pulse Rate 80 81 Respiratory Rate 18 20 Blood Pressure 112/67 128/75 Pulse Oximetry 96 94 BMI result Body Mass Index 41.5 Appearance: Alert. Oriented X3. No acute distress. Eyes: No pallor or icterus ENT: Pharynx normal. Oral Mucosa moist Neck: Normal inspection. Neck supple. CVS: Normal heart rate and rhythm. Pulses normal. Respiratory: No respiratory distress. Equal air entry bilateral, no wheezing/rales/rhonchi Abdomen: Soft and slight tenderness right upper quadrant no rebound tenderness or guarding Bowel sounds are present, no mass palpable, no CVA tenderness Skin: Skin warm and dry. Normal skin color. Normal skin turgor. Extremities: No lower extremity edema. No calf tenderness back: Diffuse tenderness in the back no focal tenderness Neuro: Oriented X 3. Medical Decision Making MDM Narrative Medical decision making narrative: Patient with stable labs multiple visits for different reasons status post cholecystectomy discharge patient home for nonspecific abdominal pain Lab Data Lab results reviewed: Yes I reviewed the patient's lab results. Result diagrams: 01/25/22 16:35 01/25/22 16:35 Labs: Lab Results 01/25/22 01/25/22 Range/Units 16:35 16:35 WBC 9.3 (4.8-10.8) X10*3/uL RBC 5.26 (4.20-5.50) X10*6/uL Hgb 12.8 (12.0-16.0) g/dl Hct 41.7 (37.0-47.0) % MCV 79.3 L (80.0-98.0) fL MCH 24.3 L (27.0-33.0) pg MCHC 30.7 L (31.0-35.0) g/dl RDW 17.0 H (11.0-16.0) % Plt Count 302 (160-400) X10*3/uL MPV 11.1 (9.4-12.3) fL Immature Gran % (Auto) 1.3 H (0.0-0.4) % Neut % (Auto) 73.1 H (45-73) % Lymph % (Auto) 19.0 L (20-40) % [place] % (Auto) 6.5 (2-11) % Eos % (Auto) 0.1 (0-4) % Baso % (Auto) 0.0 (0-2) % Lymph # (Auto) 1.8 (1.2-4.9) X10*3/uL [place] # (Auto) 0.6 (0.1-1.2) X10*3/uL Eos # (Auto) 0.0 (0.0-0.4) X10*3/uL Baso # (Auto) 0.0 (0.0-0.2) X10*3/uL Abs Immat Gran (auto) 0.12 H (0.00-0.03) X10*3/uL Absolute Neuts (auto) 6.8 (2.0-8.3) x10*3/uL Absolute Nucleated RBC 0.000 (0.0-0.012) X10*3/uL Nucleated RBC % (auto) 0.0 (0.0-0.2) /100WBC Sodium 139 (135-145) mmol/L Potassium 4.1 (3.3-5.1) mmol/L Chloride 100 (96-108) mmol/L Carbon Dioxide 32 H (22-29) mmol/L Anion Gap 11 L (12-20) BUN 17 H (9-16) mg/dL Creatinine 0.77 (0.5-1.4) mg/dL Estim Creat Clear Calc 110.8 Estimated GFR > 60 Random Glucose 146 H (60-115) mg/dL Calcium 8.7 D (8.4-10.2) mg/dL Total Bilirubin 0.3 (0.0-1.0) mg/dL AST 31 (5-31) U/L ALT 80 H (0-31) U/L Alkaline Phosphatase 89 D (39-117) U/L Total Protein 7.1 (6.5-8.0) g/dL Albumin 3.8 (3.5-5.0) g/dL Discharge Plan Discharge Clinical Impression: Abdominal pain Patient Disposition: Home, Self-Care Instructions: Abdominal Pain (ED) Additional Instructions: Follow-up with a dairy equipment specialist/PCP Continue your medications Prescriptions: No Action (DME) miscellaneous medical supply Misc See Rx Instructions .ROUTE .MEDSUPPLY Qty: 1 0RF Rx Instructions: As directed fluticasone propionate 110 mcg/actuation HFA aerosol inhaler 2 puff inhalation BID 30 Days Qty: 12 5RF alcohol swabs Pads, Medicated 2 pad topical BID Qty: 100 6RF (DME) lancets [FreeStyle Lancets] 28 gauge misc See Rx Instructions .Route Qty: 100 6RF Rx Instructions: BID pantoprazole [Protonix] 40 mg tablet,delayed release (DR/EC) 40 mg PO DAILY 30 Days Qty: 30 0RF ergocalciferol (vitamin D2) 1,250 mcg (50,000 unit) capsule 1,250 mcg PO QWEEK 90 Days Qty: 13 1RF metoprolol tartrate 50 mg tablet 50 mg PO BID 90 Days Qty: 180 1RF acetaminophen [Tylenol Arthritis Pain] 650 mg tablet extended release 650 mg PO Q12H PRN (Reason: pain) Qty: 60 3RF water for irrigation, sterile Solution 1 irrig irrigation DAILY Qty: 8000 8RF levothyroxine 112 mcg tablet 112 mcg PO DAILY Qty: 30 2RF sumatriptan succinate 25 mg tablet See Rx Instructions PO .COMPLEX Qty: 14 0RF Rx Instructions: take 1 tab at onset of headache; if no relief may repeat 1 tab after at least 2 hrs; max = 4 tabs/24 hr PO estradiol [Estrace] 0.01 % (0.1 mg/gram) cream See Rx Instructions .Route DAILY 30 Days Qty: 42.5 0RF Rx Instructions: pea sized amount per urethra daily; furosemide 40 mg tablet 40 mg PO DAILY 30 Days Qty: 30 6RF (DME) lancets [FreeStyle Lancets] 28 gauge misc See Rx Instructions .Route Qty: 100 3RF Rx Instructions: Use 1 lancet once a day loratadine 10 mg tablet 10 mg PO DAILY 90 Days Qty: 90 3RF metformin 500 mg tablet 500 mg PO BID Qty: 180 2RF albuterol sulfate [Ventolin HFA] 90 mcg/actuation HFA aerosol inhaler 2 puff inhalation Q6H PRN (Reason: shortness of breath or wheezing) 30 Days Qty: 6.7 1RF albuterol sulfate 2.5 mg /3 mL (0.083 %) solution for nebulization 2.5 mg inhalation TID PRN (Reason: shortness of breath or wheezing) 30 Days Qty: 180 1RF meclizine 25 mg tablet 25 mg PO BID PRN (Reason: vertigo) Qty: 30 0RF (DME) FreeStyle Julianne 2 Sensor Kit See Rx Instructions .Route Qty: 1 2RF Rx Instructions: As directed (DME) diabetic supplies, miscellan. [facility] [place] Instructions .Route Qty: 1 0RF Rx Instructions: As directed baclofen 10 mg tablet 10 mg PO TID 30 Days Qty: 90 1RF (DME) heating pads Pad See Rx Instructions .Route Qty: 1 0RF Rx Instructions: As directed (DME) blood pressure monitor Kit See Rx Instructions .Route Qty: 1 0RF Rx Instructions: Use as needed (DME) Shower Chair [facility] [place] See Rx Instructions .Route Qty: 1 0RF Rx Instructions: As directed Creon 24,000-76,000 -120,000 unit capsule,delayed release(DR/EC) 1 cap PO QID Qty: 120 1RF acetaminophen [Tylenol Extra Strength] 500 mg tablet 500 mg PO Q6H PRN (Reason: fever or pain) Qty: 30 0RF ondansetron 4 mg tablet,disintegrating 4 mg PO Q6-8H PRN (Reason: nausea and vomiting) Qty: 14 0RF amlodipine 10 mg tablet 10 mg PO DAILY Qty: 30 0RF fluticasone propionate 50 mcg/actuation spray,suspension 2 spray intranasal DAILY 30 Days Qty: 16 4RF prochlorperazine maleate [Compazine] 10 mg tablet 10 mg PO Q8H PRN (Reason: nausea and vomiting) Qty: 60 1RF zolpidem 10 mg tablet 10 mg PO BEDTIME 0RF (DME) blood pressure test kit-wrist [Blood Pressure Unit-Wrist] Kit See Rx Instructions .ROUTE .MEDSUPPLY Qty: 1 0RF Rx Instructions: to check blood pressure (DME) vaporizers Misc See Rx Instructions ea .ROUTE .MEDSUPPLY Qty: 1 0RF Rx Instructions: As directed (DME) blood-glucose meter [FreeStyle Lite Meter] Kit See Rx Instructions .Route Qty: 1 0RF Rx Instructions: As directed (DME) FreeStyle Lite Strips Strip See Rx Instructions .Route Qty: 100 3RF Rx Instructions: use 1 test strip once a day prednisone 10 mg tablet 10 mg PO DAILY PRN (Reason: bronchospasm) 6 Days Qty: 12 0RF Rx Instructions: Take 3 tabs the first 2 days, then 2 tabs the next 2 days, then 1 tab the next 2 days Trulicity 0.75 mg/0.5 mL pen injector 0.75 mg subcut QWEEK Qty: 2 2RF duloxetine 60 mg capsule,delayed release(DR/EC) 60 mg PO DAILY 0RF buspirone 15 mg tablet 30 mg PO BID 0RF clonidine HCl 0.1 mg tablet 0.1 mg PO DAILY 0RF nabumetone 500 mg tablet 500 mg PO BID 0RF senna 8.6 mg capsule 17.2 mg PO BEDTIME 30 Days Qty: 60 3RF clotrimazole-betamethasone 1-0.05 % cream 1 appl topical BID PRN (Reason: itching) 7 Days Qty: 45 0RF buspirone 30 mg tablet 30 mg PO BID 0RF pyridoxine (vitamin B6) 100 mg tablet 100 mg PO DAILY 90 Days Qty: 90 1RF mirtazapine 7.5 mg tablet 15 mg PO BEDTIME 0RF Interventions: ED Discharge Assessment Last Done: 01/25/22 21:47 Discharge Date/Time: 01/25/22 21:47
[2022-01-25 20:26] VITALS: BP 128/75; PULSE 81; RESP 20; TEMP 36.7; O2SAT 94
[2022-01-25] MEDS: Ondansetron ODT 4 MG TAB.RAPDIS TRANSLINGU (20:46)
[2022-01-25] MEDS: oxyCODONE HCl Immed Release 5 MG TABLET 10 MG PO (20:47)
== END 2022-01-25 21:47 | disposition home or self-care (01) ==
PROVIDERS: Emergency Provider Internal Medicine; PCP Internal Medicine
DX: M54.50 Low back pain, unspecified (principal); K76.9 Liver disease, unspecified; R10.11 Right upper quadrant pain; Z79.899 Other long term (current) drug therapy
CPT/HCPCS: 36415; 80053; 85025; 99283; 99284

== ENCOUNTER → 2022-01-29 13:45 | Outpatient (BNVA) | payer OTHER, SELFPAY | PROVIDERS: PCP Internal Medicine; Referring Provider Internal Medicine; Visit Provider Internal Medicine Pulmonary Disease | DX: J40 Bronchitis, not specified as acute or chronic (principal); R91.8 Other nonspecific abnormal finding of lung field | CPT/HCPCS: 99202 ==

== ENCOUNTER 2022-02-06 08:46 | Emergency (ER) | payer OTHER, SELFPAY ==
--- NOTE | ~2022-02-06 | XR_ITS ---
EXAMINATION: XR SHOULDER, LEFT CLINICAL INFORMATION: Left shoulder pain. COMPARISON: None TECHNIQUE: Three views of the left shoulder. FINDINGS: The bones and soft tissues are normal. No fracture. Glenohumeral and acromioclavicular alignment is anatomic with normal joint space. No abnormal soft tissue calcifications. XR/XR shoulder LT min 2V IMPRESSION: Unremarkable left shoulder.
--- NOTE | ~2022-02-06 | NM_ITS ---
EXAMINATION: NM LUNG IMAGE PERFUSION CLINICAL INFORMATION: SOB, chest pain and leg swelling. COMPARISON: Chest x-ray 02/06/2022. TECHNIQUE: Following intravenous administration of 4 mCi of 99m Tc DTPA, imaging of both lungs were obtained in multiple projections. FINDINGS: There is normal perfusion seen to the entire left lung and the right upper lung. There is elevated right hemidiaphragm with likely atelectasis of right lower lobe hence no perfusion seen in the right lower lung. NM/NM pul perfusion IMPRESSION: No segmental or subsegmental defect seen in the left lung or the right upper lung.
--- NOTE | ~2022-02-06 | XR_ITS ---
EXAMINATION: XR CHEST CLINICAL INFORMATION: Chest discomfort. COMPARISON: 01/18/2022 chest radiographs. TECHNIQUE: Frontal view of the chest was obtained. FINDINGS: There is mild to moderate elevation of the right hemidiaphragm without significant change. The lungs are clear. The heart and mediastinal structures are unremarkable. XR/XR chest 1V IMPRESSION: No acute cardiopulmonary process.
--- NOTE | ~2022-02-06 | US_ITS ---
EXAMINATION: US VENOUS ULTRASOUND WITH DOPPLER LOWER EXTREMITY, BILATERAL CLINICAL INFORMATION: Bilateral leg swelling. COMPARISON: None TECHNIQUE: Ultrasound of the deep veins is performed from the hip to the calf with compression sonography and color and pulse Doppler assessment. Spectral analysis with color-flow imaging is performed. FINDINGS: RIGHT: There is normal venous compression and respiratory variation and augmented flow. The visualized common femoral vein, superficial femoral vein, profunda femoral vein, popliteal vein, and the trifurcation region shows no evidence of deep venous thrombosis. No right popliteal cyst. The subcutaneous soft tissues are unremarkable. LEFT: There is normal venous compression and respiratory variation and augmented flow. The visualized common femoral vein, superficial femoral vein, profunda femoral vein, popliteal vein, and the trifurcation region shows no evidence of deep venous thrombosis. No left popliteal cyst. The subcutaneous soft tissues are unremarkable. If the patient's symptoms persist, followup ultrasound in 5 days 7 days might be of value to exclude proximal propagation from a non-visualized calf vein. US/US venous duplex LE BI IMPRESSION: No evidence for deep venous thrombosis in the visualized veins of the bilateral lower extremities.
--- NOTE | ~2022-02-06 | XR_ITS ---
EXAMINATION: XR SHOULDER, RIGHT CLINICAL INFORMATION: Right shoulder pain. COMPARISON: None TECHNIQUE: Three views of the right shoulder. FINDINGS: The bones and soft tissues are normal. No fracture. Glenohumeral and acromioclavicular alignment is anatomic with normal joint space. No abnormal soft tissue calcifications. XR/XR shoulder RT min 2V IMPRESSION: Unremarkable right shoulder.
[2022-02-06 08:49] VITALS: BP 151/83; PULSE 110; RESP 16; TEMP 36.1; O2SAT 97; BMI 41.8
--- NOTE | 2022-02-06 08:54 | ECG_ITS ---
Test Reason : BILAT ARM PAIN Blood Pressure : / mmHG Vent. Rate : 105 BPM Atrial Rate : 105 BPM P-R Int : 150 ms QRS Dur : 074 ms QT Int : 340 ms P-R-T Axes : 027 010 013 degrees QTc Int : 449 ms Sinus tachycardia Otherwise normal ECG When compared with ECG of 18-JAN-2022 17:29, No significant change was found Referred By: Generic ED Physician Electronically Signed By:MARISA SCHAFER MD
[2022-02-06 09:08] LABS: MANUAL DIFF FLAG NO
[2022-02-06 09:11] LABS: Basophils Absolute Auto 0.1 X10*3/uL (0.0-0.2); Basophils Percent Auto 0.4 % (0-2); Eosinophils Absolute Auto 0.2 X10*3/uL (0.0-0.4); Eosinophils Percent Auto 1.9 % (0-4); Hematocrit 41.7 % (37.0-47.0); Hemoglobin 12.8 g/dl (12.0-16.0); Imm Gran Abs Auto 0.05 X10*3/uL (0.00-0.03); Imm Gran Pct Auto 0.4 % (0.0-0.4); Lymphocytes Absolute Auto 2.6 X10*3/uL (1.2-4.9); Mean Corpuscular HGB Conc 30.7 g/dl (31.0-35.0); Mean Corpuscular Hemoglobin 24.2 pg (27.0-33.0); Mean Platelet Volume 10.6 fL (9.4-12.3); Monocytes Absolute Auto 0.7 X10*3/uL (0.1-1.2); Monocytes Percent Auto 5.8 % (2-11); Neutrophils Absolute Auto 8.8 x10*3/uL (2.0-8.3); Neutrophils Percent Auto 70.5 % (45-73); Platelet Count 279 X10*3/uL (160-400); Red Blood Count 5.28 X10*6/uL (4.20-5.50); Red Cell Distribution Width 16.9 % (11.0-16.0); White Blood Count 12.4 X10*3/uL (4.8-10.8)
[2022-02-06 09:28] LABS: Anion Gap 14 (12-20); Blood Urea Nitrogen 16 mg/dL (9-16); Calcium 9.3 mg/dL (8.4-10.2); Carbon Dioxide 24 mmol/L (22-29); Chloride 107 mmol/L (96-108); Creatinine Clr Calc Pharmacy 112.7; Estimated Glomerular Filt Rate > 60; Glucose Random 142 mg/dL (60-115); Potassium 4.3 mmol/L (3.3-5.1); Sodium 141 mmol/L (135-145)
[2022-02-06 09:32] LABS: Troponin-I High Sensitivity < 3.5 ng/L (<3.5-17.0)
[2022-02-06] MEDS: traMADoL HCL 50 MG TABLET PO (10:02)
[2022-02-06 10:09] LABS: Alanine Aminotransferase 42 U/L (0-31); Alkaline Phosphatase 93 U/L (39-117); Aspartate Amino Transferase 21 U/L (5-31); Bilirubin Direct 0.2 mg/dL (0.0-0.5); Bilirubin Total 0.5 mg/dL (0.0-1.0); Total Protein 7.5 g/dL (6.5-8.0)
[2022-02-06 10:19] LABS: B Type Natriuretic Peptide < 10 pg/mL (<100)
[2022-02-06 11:07] VITALS: BP 131/59; PULSE 84; RESP 18; TEMP 37; O2SAT 96
[2022-02-06 11:37] LABS: COVID-19 Test Negative (Negative); IDNOW Serial# 16C4AD1C; Influenza A Negative (Negative); Influenza B2 Negative (Negative)
--- NOTE | 2022-02-06 11:54 | ED_ITS ---
HPI - Chest Pain General Chief Complaint: General Medical Stated Complaint: R&L arm pain/Swollen feet/Back pain Time Seen by Provider: 02/06/22 09:47 Source: patient Mode of arrival: ambulatory Limitations: no limitations History of Present Illness HPI narrative: 56-year-old female with a past medical history of GERD, vertigo, edema, anxiety, migraine headaches, hypertension, chronic pain syndrome, asthma and small-bowel motility disorder presenting to the ED with multiple complaints which include midsternal chest pain with associated shortness of breath/dyspnea on exertion/orthopnea since Wednesday 2 days ago worse today that has been constant. She also reports body aches/joint pain which include her bilateral shoulders, lower back and bilateral hips. She reports that she normally has chronic lower back and hip pain and she gets injections from pain management although that her shoulder pain is different and she reports that she is unable to lift her shoulders up because they hurt so much and she feels like her both arms and legs are swollen. She denies any fevers, chills, dizziness, headaches, neck pain/stiffness, trouble swallowing, palpitations, paresthesias, numbness/tingling, worsening back pain and her prior, urinary or bowel incontinence or retention, saddle anesthesia, dysuria, hematuria, abnormal vaginal discharge, recent travel or sick contacts, recent immobilization or surgery, history of PVD disease, recent illness, history of gout, history of PE or DVT, history of hypercoagulation disorder that she is aware or any other symptoms complaints or concerns at this time. Patient has been seen here in the past for chest pain. MD complaint: chest pain Pertinent past history: other (See above) Onset (ago): day(s) (2) Timing of current episode: constant Prior episodes: Yes Onset: other (Cannot recall) Pain location: other (She reports the entire anterior chest aspect) Pain radiation: none Severity: moderate Quality: aching Relieving factors: nothing Exacerbating factors: inspiration, palpation and movement Associated symptoms: cough and leg swelling Treatment prior to arrival: none Risk Factors Coronary artery disease risk factors: hypertension Thoracic aortic dissection risk factors: none Related Data Home Medications Medication Instructions Recorded Confirmed vaporizers #1 ea 10/10/20 01/22/22 miscellaneous medical supply #1 ea 12/11/20 01/22/22 zolpidem 10 mg tablet 10 mg PO BEDTIME 05/08/21 01/22/22 buspirone 15 mg tablet 30 mg PO BID tab 09/19/21 01/25/22 clonidine HCl 0.1 mg tablet 0.1 mg PO DAILY tab 09/19/21 01/25/22 duloxetine 60 mg capsule,delayed 60 mg PO DAILY 09/19/21 01/25/22 release nabumetone 500 mg tablet 500 mg PO BID 09/19/21 01/22/22 mirtazapine 7.5 mg tablet 15 mg PO BEDTIME 10/09/21 01/25/22 buspirone 30 mg tablet 30 mg PO BID 10/29/21 01/22/22 Previous Rx's Medication Instructions Recorded blood pressure test kit-wrist #1 ea 09/13/20 (Blood Pressure Unit-Wrist) fluticasone propionate 50 2 spray INTRANASAL DAILY 30 Days 11/14/20 mcg/actuation nasal #16 g spray,suspension prochlorperazine maleate 10 mg 10 mg PO Q8H PRN #60 tab 11/14/20 tablet (Compazine) fluticasone propionate 110 2 puff INHALATION BID 30 Days #12 g 05/22/21 mcg/actuation HFA aerosol inhaler alcohol swabs 2 pad TOPICAL BID #100 ea 05/23/21 lancets 28 gauge (FreeStyle #100 ea 05/23/21 Lancets) pantoprazole 40 mg tablet,delayed 40 mg PO DAILY 30 Days #30 tab 06/30/21 release (Protonix) clotrimazole-betamethasone 1 1 appl TOPICAL BID PRN 7 Days #45 g 07/25/21 %-0.05 % topical cream blood sugar diagnostic (FreeStyle #100 ea 09/16/21 Lite Strips) blood-glucose meter (FreeStyle #1 ea 09/16/21 Lite Meter) ergocalciferol (vitamin D2) 1,250 1,250 mcg PO QWEEK 90 Days #13 cap 09/24/21 mcg (50,000 unit) capsule metoprolol tartrate 50 mg tablet 50 mg PO BID 90 Days #180 tab 10/08/21 water for irrigation, sterile 1 irrig IRRIGATION DAILY #8000 ml 10/14/21 levothyroxine 112 mcg tablet 112 mcg PO DAILY #30 tab 10/23/21 pyridoxine (vitamin B6) 100 mg 100 mg PO DAILY 90 Days #90 tab 10/27/21 tablet sumatriptan succinate 25 mg tablet See Rx Instructions PO .COMPLEX 11/10/21 #14 tab estradiol (Estrace) See Rx Instructions .ROUTE DAILY 11/11/21 30 Days #42.5 g furosemide 40 mg tablet 40 mg PO DAILY 30 Days #30 tab 11/12/21 lancets 28 gauge (FreeStyle #100 ea 11/12/21 Lancets) loratadine 10 mg tablet 10 mg PO DAILY 90 Days #90 tab 11/13/21 metformin 500 mg tablet 500 mg PO BID #180 tab 11/15/21 albuterol sulfate 2.5 mg (3 mL) INHALATION TID PRN 11/18/21 30 Days #180 ml albuterol sulfate 90 mcg/actuation 2 puff INHALATION Q6H PRN 30 Days 11/18/21 aerosol inhaler (Ventolin HFA) #6.7 g dulaglutide 0.75 mg/0.5 mL 0.75 mg (0.5 mL) SUBCUT QWEEK #2 ml 11/18/21 subcutaneous pen injector (Trulicity) meclizine 25 mg tablet 25 mg PO BID PRN #30 tab 11/18/21 diabetic supplies, miscellan. #1 ea 12/03/21 flash glucose sensor (FreeStyle #1 ea 12/03/21 Julianne 2 Sensor) amlodipine 10 mg tablet 10 mg PO DAILY #30 tab 01/16/22 acetaminophen 500 mg tablet 500 mg PO Q6H PRN #30 tab 01/18/22 (Tylenol Extra Strength) ondansetron 4 mg disintegrating 4 mg PO Q6-8H PRN #14 tab 01/18/22 tablet heating pads #1 ea 01/21/22 prednisone 10 mg tablet 10 mg PO DAILY PRN 6 Days #12 tab 01/22/22 Shower Chair #1 ea 01/23/22 blood pressure monitor #1 ea 01/23/22 [id number] 1 cap PO QID #120 cap 01/23/22 24,000-76,000-120,000 unit capsule,delayed rel (Creon) sennosides 8.6 mg tablet (senna) 17.2 mg PO BEDTIME #60 tab 01/26/22 Gel mattress overlay #1 ea 01/28/22 levofloxacin 750 mg tablet 750 mg PO DAILY 7 Days #7 tab 01/29/22 baclofen 10 mg tablet 10 mg PO TID 30 Days #90 tab 02/04/22 cyclobenzaprine 10 mg tablet 10 mg PO Q8H PRN #14 tab 02/06/22 naproxen 500 mg tablet 500 mg PO BID PRN #14 tab 02/06/22 Allergies Allergy/AdvReac Type Severity Reaction Status Date / Time Penicillins Allergy Severe swelling Verified 01/29/22 13:47 adhesive tape [ADHESIVE TAPE] Allergy Intermediate RASH Verified 01/29/22 13:47 amoxicillin [AMOXICILLIN] Allergy Intermediate RASH,SWELLING, Verified 01/29/22 13:47 RASH/SWELLING latex Allergy Intermediate Rash Verified 01/29/22 13:47 Motrin Allergy Intermediate hypertensio Verified 01/29/22 13:47 n Review of Systems Review of Systems: Constitutional : No Weight loss, No Fever, No Chills, No Night Sweats, No Fatigue, No Malaise ENT/Mouth : No Hearing loss, No Ear Pain, No Nasal Congestion, No Sinus Pain, No Hoarseness, No sore throat, No Rhinorrhea, No Swallowing Difficulty Eyes: No Eye Pain, No Swelling, No Redness, No Foreign Body, No Discharge, No Vision Changes Cardiovascular : + Chest Pain, + SOB, + Dyspnea on Exertion, + Orthopnea, + Edema, No Palpitations Respiratory : + Cough, No Sputum, No Wheezing, No Smoke Exposure, No Dyspnea Gastrointestinal : No Nausea, No Vomiting, No Diarrhea, No Constipation, No abdominal Pain, No Hematochezia, No Melena Genitourinary : no irregular bleeding, No Dysuria, No Urinary Frequency, No Hematuria, No Urinary Incontinence, No Urgency, No Flank Pain, No Urinary Flow Changes, No Hesitancy Musculoskeletal : + joint pain, + Chronic back pain and hip pain, No Myalgias Skin : No Skin Lesions, No rash Neuro : No Weakness, No Numbness, No Paresthesias, No Loss of Consciousness, No Dizziness, No Headache Psych : No Anxiety/Panic, No Depression, No SI/HI/AH/VH, No Social Issues, Heme/Lymph: No Bruising, No Bleeding,No Lymphadenopathy Endocrine : No Polyuria, No Polydipsia, No Temperature Intolerance Yes all other systems are reviewed and are negative [facility] Past Medical History Attestation statement: The following information was validated with the patient. Medical History Arthropathy of facet joint Asthma Chronic pain (Unknown) Chronic pain syndrome Degeneration, intervertebral disc, cervical Diabetes mellitus Disc degeneration, lumbar Fibromyalgia LUDY (generalized anxiety disorder) Goiter Incontinence Insomnia Lumbar pain Moderately severe recurrent major depression Morbid (severe) obesity due to excess calories Multiple air fluid levels of small intestine determined by X-ray Renal calculi Sleep apnea Spondylosis of cervical spine at multiple levels without myelopathy Spondylosis of cervical spine at multiple levels without myelopathy Spondylosis of lumbar region without myelopathy or radiculopathy Surgical History Delivery by section History of cholecystectomy History of esophagogastroduodenoscopy (EGD) History of hysterectomy Hx of colonoscopy Family History Family History Father Past heart attack Anxiety Mother MOF (multiple organ failure) Brother HIV (human immunodeficiency virus infection) Sister Ovarian cancer Uterine cancer Bone cancer Lupus Daughter Guillain-[place] Sister Lupus History of open heart surgery Family/Other FH: mental illness Depression Maternal Aunt Breast cancer Maternal Aunt Tumor Social History Social History Household Members Other:: Housing: Apartment Alcohol intake: current Alcohol intake frequency: holidays/special occasions only Alcohol type: wine Patient Tobacco Use Status: Never used Tobacco e-Cigarette/Vaping Use: Never Used Second Hand Smoke Exposure: Yes Advance Directives: Yes Advance Directives on File: Yes Advance Directives Date on File: 12/08/21 Patient : No service: No Current occupational status: disabled Cognitive needs: No Hearing needs: No Vision needs: No Physical Exam Vital Signs: Vital Signs: Last Vital Signs Temp 98.6 F 02/06/22 11:07 Pulse 84 02/06/22 11:07 Resp 18 02/06/22 11:07 BP 131/59 L 02/06/22 11:07 Pulse Ox 96 02/06/22 11:07 BMI result Body Mass Index 41.8 vital signs have been reviewed as normal and appeared to be correct. Blood pressure normal. Heart rate normal. Respiration rate normal. Temperature normal. Oxygen saturation normal. Appearance: Alert. Oriented X3. No acute distress. Head: Normal external exam. Normocephalic. Atraumatic. No Hanson signs noted. No raccoon eyes noted Eyes: PERRLA. EOMI. Conjunctiva and sclera normal. Eyelids normal. ENT: EAC normal. TM's Normal. No septal hematoma noted. No hemotympanum noted. Pharynx normal. Uvula midline. Moist mucous membranes. No lesions/ulcerations or masses noted on the tongue. Normal voice. No trismus noted. No drooling noted. No muffled voice noted. Neck: Normal inspection. Neck supple. FROM. No adenopathy. Thyroid Normal. No tracheal deviation noted. No crepitus is noted. No meningeal signs. No neck mass noted. No signs of trauma noted. CVS: Normal heart rate and rhythm. Heart sound normal. Pulses normal throughout. No murmurs/rales/gallops. Respiratory: No respiratory distress. Painless inspiration. Breath sounds normal. No wheezes/rales/rhonchi noted. Chest nontender. No crepitus is noted. No signs of trauma noted. No accessory muscle usage noted or decreased air movement noted. No signs of trauma. Abdomen: Soft and nontender. Bowel sounds normal in all 4 quadrants. No distention noted. No organomegaly noted. No visible injury noted. Back: No CVA tenderness. Full range of motion noted. Nontender. No signs of trauma. Patient neuro intact bilaterally and distally on all 4 extremities. Patient's reflexes intact bilaterally and distally on all 4 extremities. No rashes/lesion/induration/fluctuance or signs of infection noted. Skin: Skin warm and dry. Normal skin color. Normal skin turgor. No rashes/lesions/lacerations noted. Extremities: No lower extremity edema. No calf tenderness is noted. Extremities exhibit normal range of motion and nontender. Neuro: Oriented X 3. No motor deficit. No sensory deficit. Reflexes normal. Normal steady gait. No focal neuro deficits noted. CN's II-XII intact bilaterally? Vascular: + radial pulses/+ 2 distal pedal pulses/+2 dorsalis pedis b/l. Normal cap refill. No cyanosis noted to upper extremity nails and lower extremity toes nails. Course Course Course Narrative: 10am - 56-year-old female with a past medical history of GERD, vertigo, edema, anxiety, migraine headaches, hypertension, chronic pain syndrome, asthma and small-bowel motility disorder presenting to the ED with multiple complaints which include midsternal chest pain with associated shortness of breath/dyspnea on exertion/orthopnea since Wednesday 2 days ago worse today that has been constant. She also reports body aches/joint pain which include her bilateral shoulders, lower back and bilateral hips. She reports that she normally has chronic lower back and hip pain although that her shoulder pain is different and she reports that she is unable to lift her shoulders up because they hurt so much and she feels like her both arms and legs are swollen. I reviewed the patient's chart and it appears that she was seen on 12/10/2021 by her pain management and they reported that she did not show up for her pill count and they instructed her to go to the ED for COVID testing due to she reported that she was not feeling well and she refused therefore they suspended her narcotic contract for 1 year. Patient had labs while she was in the waiting room she has an elevated white blood cell count at 12,000. Random glucose 142. Otherwise all other labs including troponin and BNP within normal limits. Patient negative for COVID and flu. Chest x-ray within normal limits no acute processes are noted. Plan: Will obtain a V/Q scan to evaluate for possible PE, duplex ultrasound of bilateral lower extremity to evaluate for possible DVT and x-rays of bilateral shoulders as patient continues to complain of shoulder pain provide some symptomatic relief and re-evaluate Reevaluation(s) Reevaluation #1: - bilateral x-ray imaging within normal limits no acute processes noted. Chest x-ray within normal limits. Venous duplex ultrasound of bilateral lower extremity negative for DVT. V/Q scan negative for PE or any other acute processes - therefore at this time patient most likely muscular skeletal pain. Every time I go into the patient's room she complains of another complaint where hurts I explained to her that there is nothing broken it is all muscular skeletal and there is no indication to give her a narcotic. Will DC home with symptomatic treatment will not sent home with any narcotics as per the pain management notes she was suspended for 1 year and should not receive any narcotics therefore I will not provide any further narcotics as well. Explained to follow-up with PCP and to return if any new or worsening symptoms. Patient understands agrees with this plan. Time: 14:40 MDM - Chest Pain Medical Records Data Attestation: I reviewed the patient's medical records. Lab Data Attestation: I reviewed the patient's lab results. Result diagrams: 02/06/22 09:05 02/06/22 09:05 Labs: Lab Results 02/06/22 02/06/22 02/06/22 Range/Units 09:05 09:05 09:05 WBC 12.4 H (4.8-10.8) X10*3/uL RBC 5.28 (4.20-5.50) X10*6/uL Hgb 12.8 (12.0-16.0) g/dl Hct 41.7 (37.0-47.0) % MCV 79.0 L (80.0-98.0) fL MCH 24.2 L (27.0-33.0) pg MCHC 30.7 L (31.0-35.0) g/dl RDW 16.9 H (11.0-16.0) % Plt Count 279 (160-400) X10*3/uL MPV 10.6 (9.4-12.3) fL Immature Gran % (Auto) 0.4 (0.0-0.4) % Neut % (Auto) 70.5 (45-73) % Lymph % (Auto) 21.0 (20-40) % [place] % (Auto) 5.8 (2-11) % Eos % (Auto) 1.9 (0-4) % Baso % (Auto) 0.4 (0-2) % Lymph # (Auto) 2.6 (1.2-4.9) X10*3/uL [place] # (Auto) 0.7 (0.1-1.2) X10*3/uL Eos # (Auto) 0.2 (0.0-0.4) X10*3/uL Baso # (Auto) 0.1 (0.0-0.2) X10*3/uL Abs Immat Gran (auto) 0.05 H (0.00-0.03) X10*3/uL Absolute Neuts (auto) 8.8 H (2.0-8.3) x10*3/uL Absolute Nucleated RBC 0.000 (0.0-0.012) X10*3/uL Nucleated RBC % (auto) 0.0 (0.0-0.2) /100WBC Sodium 141 (135-145) mmol/L Potassium 4.3 (3.3-5.1) mmol/L Chloride 107 (96-108) mmol/L Carbon Dioxide 24 (22-29) mmol/L Anion Gap 14 (12-20) BUN 16 (9-16) mg/dL Creatinine 0.76 (0.5-1.4) mg/dL Estim Creat Clear Calc 112.7 Estimated GFR > 60 Random Glucose 142 H (60-115) mg/dL Calcium 9.3 D (8.4-10.2) mg/dL Total Bilirubin 0.5 (0.0-1.0) mg/dL Direct Bilirubin 0.2 (0.0-0.5) mg/dL AST 21 (5-31) U/L ALT 42 H (0-31) U/L Alkaline Phosphatase 93 (39-117) U/L Troponin I High Sens < 3.5 (<3.5-17.0) ng/L B-Natriuretic Peptide < 10 (<100) pg/mL Total Protein 7.5 (6.5-8.0) g/dL Albumin 4.0 (3.5-5.0) g/dL COVID-19 (CORNELL) (Negative) COVID-19 Clin Com Influenza Type A (TAL) (Negative) Influenza Type B (TAL) (Negative) Influenza A & B Note 02/06/22 02/06/22 Range/Units 11:06 11:06 WBC (4.8-10.8) X10*3/uL RBC (4.20-5.50) X10*6/uL Hgb (12.0-16.0) g/dl Hct (37.0-47.0) % MCV (80.0-98.0) fL MCH (27.0-33.0) pg MCHC (31.0-35.0) g/dl RDW (11.0-16.0) % Plt Count (160-400) X10*3/uL MPV (9.4-12.3) fL Immature Gran % (Auto) (0.0-0.4) % Neut % (Auto) (45-73) % Lymph % (Auto) (20-40) % [place] % (Auto) (2-11) % Eos % (Auto) (0-4) % Baso % (Auto) (0-2) % Lymph # (Auto) (1.2-4.9) X10*3/uL [place] # (Auto) (0.1-1.2) X10*3/uL Eos # (Auto) (0.0-0.4) X10*3/uL Baso # (Auto) (0.0-0.2) X10*3/uL Abs Immat Gran (auto) (0.00-0.03) X10*3/uL Absolute Neuts (auto) (2.0-8.3) x10*3/uL Absolute Nucleated RBC (0.0-0.012) X10*3/uL Nucleated RBC % (auto) (0.0-0.2) /100WBC Sodium (135-145) mmol/L Potassium (3.3-5.1) mmol/L Chloride (96-108) mmol/L Carbon Dioxide (22-29) mmol/L Anion Gap (12-20) BUN (9-16) mg/dL Creatinine (0.5-1.4) mg/dL Estim Creat Clear Calc Estimated GFR Random Glucose (60-115) mg/dL Calcium (8.4-10.2) mg/dL Total Bilirubin (0.0-1.0) mg/dL Direct Bilirubin (0.0-0.5) mg/dL AST (5-31) U/L ALT (0-31) U/L Alkaline Phosphatase (39-117) U/L Troponin I High Sens (<3.5-17.0) ng/L B-Natriuretic Peptide (<100) pg/mL Total Protein (6.5-8.0) g/dL Albumin (3.5-5.0) g/dL COVID-19 (CORNELL) Negative (Negative) COVID-19 Clin Com See Note Influenza Type A (TAL) Negative (Negative) Influenza Type B (TAL) Negative (Negative) Influenza A & B Note See Note Imaging Data Chest x-ray: Attestation: I personally reviewed and interpreted this imaging study as follows: Radiologist's impression: FINDINGS: There is mild to moderate elevation of the right hemidiaphragm without significant change. The lungs are clear. The heart and mediastinal structures are unremarkable. XR/XR chest 1V IMPRESSION: No acute cardiopulmonary process. Ventilation/perfusion scan: Attestation: I personally reviewed and interpreted this imaging study as follows: Radiologist's impression: FINDINGS: There is normal perfusion seen to the entire left lung and the right upper lung. There is elevated right hemidiaphragm with likely atelectasis of right lower lobe hence no perfusion seen in the right lower lung. NM/NM pul perfusion IMPRESSION: No segmental or subsegmental defect seen in the left lung or the right upper lung. Bilateral shoulder x-rays: Attestation: I personally reviewed and interpreted this imaging study as follows: Radiologist's impression: FINDINGS: The bones and soft tissues are normal. No fracture. Glenohumeral and acromioclavicular alignment is anatomic with normal joint space. No abnormal soft tissue calcifications.? XR/XR shoulder RT min 2V IMPRESSION: Unremarkable right shoulder. ECG Data ECG #1: Attestation: I personally reviewed and interpreted this ECG as follows: ECG interpretation date: 02/06/22 ECG interpretation time: 08:50 Interpretation: Sinus tachycardia with ventricular rate of 105 with a normal NM interval normal QRS duration normal QT/QTC interval. No acute ischemic changes are noted. Similar compared to prior EKG on 01/18/2022. Critical Care Time Critical Care Time Critical Care Time: Yes Total Critical Care Time: 60 Attestation: I personally attest to this time spent taking care of the patient Discharge Plan Discharge Clinical Impression: Atypical chest pain, Pain on movement of skeletal muscle, Pedal edema Patient Disposition: Home, Self-Care Prescriptions: New naproxen 500 mg tablet 500 mg PO BID PRN (Reason: pain) Qty: 14 0RF cyclobenzaprine 10 mg tablet 10 mg PO Q8H PRN (Reason: Muscle spasm) Qty: 14 0RF No Action (DME) miscellaneous medical supply Misc See Rx Instructions .ROUTE .MEDSUPPLY Qty: 1 0RF Rx Instructions: As directed fluticasone propionate 110 mcg/actuation HFA aerosol inhaler 2 puff inhalation BID 30 Days Qty: 12 5RF alcohol swabs Pads, Medicated 2 pad topical BID Qty: 100 6RF (DME) lancets [FreeStyle Lancets] 28 gauge misc See Rx Instructions .Route Qty: 100 6RF Rx Instructions: BID pantoprazole [Protonix] 40 mg tablet,delayed release (DR/EC) 40 mg PO DAILY 30 Days Qty: 30 0RF ergocalciferol (vitamin D2) 1,250 mcg (50,000 unit) capsule 1,250 mcg PO QWEEK 90 Days Qty: 13 1RF metoprolol tartrate 50 mg tablet 50 mg PO BID 90 Days Qty: 180 1RF water for irrigation, sterile Solution 1 irrig irrigation DAILY Qty: 8000 8RF levothyroxine 112 mcg tablet 112 mcg PO DAILY Qty: 30 2RF sumatriptan succinate 25 mg tablet See Rx Instructions PO .COMPLEX Qty: 14 0RF Rx Instructions: take 1 tab at onset of headache; if no relief may repeat 1 tab after at least 2 hrs; max = 4 tabs/24 hr PO estradiol [Estrace] 0.01 % (0.1 mg/gram) cream See Rx Instructions .Route DAILY 30 Days Qty: 42.5 0RF Rx Instructions: pea sized amount per urethra daily; furosemide 40 mg tablet 40 mg PO DAILY 30 Days Qty: 30 6RF (DME) lancets [FreeStyle Lancets] 28 gauge misc See Rx Instructions .Route Qty: 100 3RF Rx Instructions: Use 1 lancet once a day loratadine 10 mg tablet 10 mg PO DAILY 90 Days Qty: 90 3RF metformin 500 mg tablet 500 mg PO BID Qty: 180 2RF albuterol sulfate [Ventolin HFA] 90 mcg/actuation HFA aerosol inhaler 2 puff inhalation Q6H PRN (Reason: shortness of breath or wheezing) 30 Days Qty: 6.7 1RF albuterol sulfate 2.5 mg /3 mL (0.083 %) solution for nebulization 2.5 mg inhalation TID PRN (Reason: shortness of breath or wheezing) 30 Days Qty: 180 1RF meclizine 25 mg tablet 25 mg PO BID PRN (Reason: vertigo) Qty: 30 0RF (DME) FreeStyle Julianne 2 Sensor Kit See Rx Instructions .Route Qty: 1 2RF Rx Instructions: As directed (DME) diabetic supplies, [place]an. [facility] Instructions .Route Qty: 1 0RF Rx Instructions: As directed (DME) heating pads Pad See Rx Instructions .Route Qty: 1 0RF Rx Instructions: As directed (DME) blood pressure monitor Kit See Rx Instructions .Route Qty: 1 0RF Rx Instructions: Use as needed (DME) Shower Chair [facility] [place] Rx Instructions .Route Qty: 1 0RF Rx Instructions: As directed Creon 24,000-76,000 -120,000 unit capsule,delayed release(DR/EC) 1 cap PO QID Qty: 120 1RF sennosides [senna] 8.6 mg tablet 17.2 mg PO BEDTIME Qty: 60 3RF (DME) Gel mattress overlay [facility] [place] [place] Rx Instructions .Route Qty: 1 0RF Rx Instructions: As directed baclofen 10 mg tablet 10 mg PO TID 30 Days Qty: 90 1RF acetaminophen [Tylenol Extra Strength] 500 mg tablet 500 mg PO Q6H PRN (Reason: fever or pain) Qty: 30 0RF ondansetron 4 mg tablet,disintegrating 4 mg PO Q6-8H PRN (Reason: nausea and vomiting) Qty: 14 0RF amlodipine 10 mg tablet 10 mg PO DAILY Qty: 30 0RF fluticasone propionate 50 mcg/actuation spray,suspension 2 spray intranasal DAILY 30 Days Qty: 16 4RF prochlorperazine maleate [Compazine] 10 mg tablet 10 mg PO Q8H PRN (Reason: nausea and vomiting) Qty: 60 1RF zolpidem 10 mg tablet 10 mg PO BEDTIME 0RF (DME) blood pressure test kit-wrist [Blood Pressure Unit-Wrist] Kit See Rx Instructions .ROUTE .MEDSUPPLY Qty: 1 0RF Rx Instructions: to check blood pressure (DME) vaporizers [facility] [place] Rx Instructions ea .ROUTE .MEDSUPPLY Qty: 1 0RF Rx Instructions: As directed (DME) blood-glucose meter [FreeStyle Lite Meter] Kit See Rx Instructions .Route Qty: 1 0RF Rx Instructions: As directed (DME) FreeStyle Lite Strips Strip See Rx Instructions .Route Qty: 100 3RF Rx Instructions: use 1 test strip once a day prednisone 10 mg tablet 10 mg PO DAILY PRN (Reason: bronchospasm) 6 Days Qty: 12 0RF Rx Instructions: Take 3 tabs the first 2 days, then 2 tabs the next 2 days, then 1 tab the next 2 days Trulicity 0.75 mg/0.5 mL pen injector 0.75 mg subcut QWEEK Qty: 2 2RF duloxetine 60 mg capsule,delayed release(DR/EC) 60 mg PO DAILY 0RF buspirone 15 mg tablet 30 mg PO BID 0RF clonidine HCl 0.1 mg tablet 0.1 mg PO DAILY 0RF nabumetone 500 mg tablet 500 mg PO BID 0RF clotrimazole-betamethasone 1-0.05 % cream 1 appl topical BID PRN (Reason: itching) 7 Days Qty: 45 0RF buspirone 30 mg tablet 30 mg PO BID 0RF pyridoxine (vitamin B6) 100 mg tablet 100 mg PO DAILY 90 Days Qty: 90 1RF mirtazapine 7.5 mg tablet 15 mg PO BEDTIME 0RF levofloxacin 750 mg tablet 750 mg PO DAILY 7 Days Qty: 7 0RF Referrals: Jenny Mendosa MD [Primary Care Provider] - 2 days Print Language: Thai
[2022-02-06] MEDS: diazePAM 2 MG TABLET 5 MG PO (14:15)
== END 2022-02-06 14:57 | disposition home or self-care (01) ==
PROVIDERS: Physician Assistant Medical; Emergency Provider Emergency Medicine Emergency Medical Services; PCP Internal Medicine
DX: R07.89 Other chest pain (principal); R60.0 Localized edema; R06.02 Shortness of breath; I10 Essential (primary) hypertension; E11.9 Type 2 diabetes mellitus without complications; G89.4 Chronic pain syndrome; J45.909 Unspecified asthma, uncomplicated; Z20.822 Contact with and (suspected) exposure to COVID-19
CPT/HCPCS: 36415; 71045; 73030; 78580; 80048; 80076; 83880; 84484; 85025; 87502; 87635; 93005; 93970; 99284; 99291; A9540

== ENCOUNTER → 2022-02-11 13:45 | Outpatient (BNV) | payer OTHER, SELFPAY | PROVIDERS: PCP Internal Medicine; Referring Provider Nurse Practitioner Family; Visit Provider Internal Medicine | DX: D72.829 Elevated white blood cell count, unspecified (principal) | CPT/HCPCS: 99204; 99212; 99213; 99214 ==

== ENCOUNTER 2022-03-03 12:40 | Outpatient (REF) | payer OTHER, SELFPAY ==
--- NOTE | ~2022-03-03 | CT_ITS ---
EXAMINATION: CT CHEST WITHOUT CONTRAST CLINICAL INFORMATION: Pulmonary nodule. COMPARISON: CTA chest 08/02/2016. TECHNIQUE: Multidetector volumetric CT imaging of the chest was done. Axial MIP volume rendering provided. Sagittal and coronal reformatted images were obtained. This CT examination was performed using dose optimization techniques as appropriate, variously including the following: *Automated exposure control *Adjustment of mA and/or kV according to patient size (this includes techniques or standardized protocols for targeted exams where dose is matched to indication/reason for exam; i.e. 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 The left lung is expanded. LUNGS: There is moderately elevated right hemidiaphragm with right basilar atelectasis. The left lung is expanded and clear of acute process. There is a 2 mm nodule along the right superior major fissure axial image 83/6 likely lymph node, 4 mm nodule left lower lobe superior segment axial image 184/6. No additional nodule seen. No acute consolidation. MEDIASTINUM: The thyroid lobes are symmetric and normal. The central trachea and the bronchi are widely patent. The heart size and the great vessels are normal caliber. No pericardial effusion seen. PLEURA: There is no pleural effusion. No pleural mass or thickening. AXILLA: No abnormal size axillary lymph node seen. UPPER ABDOMEN: Visualized liver is diffusely attenuated with mild hepatomegaly. The gallbladder has been surgically removed. Visualized spleen, pancreas and bilateral adrenal glands are unremarkable. OSSEOUS STRUCTURES: No aggressive lytic or sclerotic process seen. There is mild ventral spondylosis lower dorsal spine. CT/CT chest wo con IMPRESSION: Punctate nodule right superior major fissure is likely a fissural lymph node. 4 mm nodule left lower lobe superior segment. Fleischner guidelines were followed.
[2022-03-03 13:29] LABS: MANUAL DIFF FLAG NO
[2022-03-03 14:01] LABS: Basophils Absolute Auto 0.1 X10*3/uL (0.0-0.2); Basophils Percent Auto 0.4 % (0-2); Eosinophils Absolute Auto 0.4 X10*3/uL (0.0-0.4); Eosinophils Percent Auto 2.8 % (0-4); Hematocrit 41.2 % (37.0-47.0); Hemoglobin 12.4 g/dl (12.0-16.0); Imm Gran Abs Auto 0.19 X10*3/uL (0.00-0.03); Imm Gran Pct Auto 1.3 % (0.0-0.4); Lymphocytes Absolute Auto 2.3 X10*3/uL (1.2-4.9); Mean Corpuscular HGB Conc 30.1 g/dl (31.0-35.0); Mean Corpuscular Hemoglobin 24.3 pg (27.0-33.0); Mean Corpuscular Volume 80.6 fL (80.0-98.0); Mean Platelet Volume 10.9 fL (9.4-12.3); Monocytes Absolute Auto 0.5 X10*3/uL (0.1-1.2); Monocytes Percent Auto 3.5 % (2-11); Neutrophils Absolute Auto 10.8 x10*3/uL (2.0-8.3); Platelet Count 334 X10*3/uL (160-400); Red Blood Count 5.11 X10*6/uL (4.20-5.50); Red Cell Distribution Width 17.2 % (11.0-16.0); White Blood Count 14.2 X10*3/uL (4.8-10.8)
[2022-03-03 14:44] LABS: Alanine Aminotransferase 43 U/L (0-31); Alkaline Phosphatase 113 U/L (39-117); Anion Gap 16 (12-20); Aspartate Amino Transferase 32 U/L (5-31); Bilirubin Total 0.7 mg/dL (0.0-1.0); Blood Urea Nitrogen 15 mg/dL (9-16); Calcium 9.8 mg/dL (8.4-10.2); Carbon Dioxide 25 mmol/L (22-29); Chloride 104 mmol/L (96-108); Cholesterol 171 mg/dL; Estimated Glomerular Filt Rate > 60; Glucose Fasting 159 mg/dL (60-99); HDL Cholesterol 47 mg/dL; Potassium 4.8 mmol/L (3.3-5.1); Sodium 140 mmol/L (135-145); Total Protein 7.7 g/dL (6.5-8.0)
[2022-03-03 14:49] LABS: Estimated Average Glucose 151 mg/dL; Hemoglobin A1c % 6.9 %
[2022-03-03 14:51] LABS: LDL Cholesterol Calculated 99 mg/dl; Triglycerides 129 mg/dL
[2022-03-03 15:00] LABS: Vitamin D 25-OH Total 21.3 ng/mL (>30)
[2022-03-03 15:48] LABS: Creatinine Urine 184.83 mg/dL; Microalbum/Creatinine Ratio Ur 16.2 ug/mg cr
== END 2022-03-03 12:41 | disposition home or self-care (01) ==
LOC: HO.CT 12:40
PROVIDERS: PCP Internal Medicine; Referring Provider Nurse Practitioner Family; Visit Provider Internal Medicine Pulmonary Disease
DX: E11.9 Type 2 diabetes mellitus without complications (principal); E66.01 Morbid (severe) obesity due to excess calories; R91.8 Other nonspecific abnormal finding of lung field; E55.9 Vitamin D deficiency, unspecified; E78.5 Hyperlipidemia, unspecified; D64.9 Anemia, unspecified; R71.8 Other abnormality of red blood cells
CPT/HCPCS: 36415; 71250; 80053; 80061; 82043; 82306; 83036; 85025

== ENCOUNTER 2022-03-23 11:53 | Outpatient (REF) | payer OTHER, SELFPAY | END 2022-03-23 11:54 | disposition home or self-care (01) | LOC: HO.HOSX 11:53 | PROVIDERS: Visit Provider Orthopaedic Surgery | DX: Z13.89 Encounter for screening for other disorder (principal) ==

== ENCOUNTER 2022-04-02 01:04 | Emergency (ER) | payer OTHER, SELFPAY ==
--- NOTE | ~2022-04-02 | XR_ITS ---
EXAMINATION: XR CHEST CLINICAL INFORMATION: Short of breath COMPARISON: 02/06/2022 TECHNIQUE: Frontal view of the chest was obtained. FINDINGS: Chronic elevation of the diaphragm. No consolidation, edema, or effusion. No pneumothorax. The cardiomediastinal silhouette is within normal limits. No osseous abnormality. XR/XR chest 1V IMPRESSION: No acute pulmonary finding.
--- NOTE | ~2022-04-02 | CT_ITS ---
EXAMINATION: CT ABDOMEN AND PELVIS WITHOUT CONTRAST CLINICAL INFORMATION: Abdominal pain, lower COMPARISON: 08/14/2020 TECHNIQUE: Multidetector volumetric imaging was performed from the superior aspect of the liver through the pubic symphysis. Sagittal and coronal reformatted images were obtained on the technologist's workstation. This CT examination was performed using dose optimization techniques as appropriate, variously including the following: *Automated exposure control *Adjustment of mA and/or kV according to patient size (this includes techniques or standardized protocols for targeted exams where dose is matched to indication/reason for exam; i.e. extremities or head) *Use of iterative reconstruction technique DLP: 1364 mGy-cm FINDINGS: LUNG BASES: Right basilar opacity with air bronchograms, favoring atelectasis. Elevated right hemidiaphragm. LIVER, GALLBLADDER, AND BILIARY TREE: The liver is normal in size and shape with decreased attenuation. No focal hepatic lesion or biliary ductal dilatation is present. Cholecystectomy. PANCREAS: Unremarkable. SPLEEN: Unremarkable. ADRENAL GLANDS: Unremarkable. KIDNEYS AND URETERS: The kidneys are normal in size, shape, and attenuation. No hydronephrosis, hydroureter, or calculi seen. No perinephric stranding. BLADDER: Unremarkable. GASTROINTESTINAL TRACT: The stomach is unremarkable. Normal caliber small bowel. No obstruction. No colonic wall thickening or acute inflammation. Normal appendix. No free air or free fluid. ABDOMINAL WALL: No significant hernia is appreciated. LYMPH NODES: Normal. VASCULAR: Normal caliber aorta. Retroaortic left renal vein. PELVIC VISCERA: Unremarkable. OSSEOUS STRUCTURES: No acute or suspicious osseous abnormality. Mild degenerative change throughout the spine. CT/CT abdomen pelvis wo con IMPRESSION: Hepatic steatosis. Elevated right hemidiaphragm with overlying lung opacity favoring atelectasis. No acute inflammatory change in the abdomen or pelvis. Fleischner guidelines were followed.
[2022-04-02 01:16] VITALS: BP 188/88; PULSE 93; RESP 24; TEMP 36.6; O2SAT 97; BMI 42.5
[2022-04-02 01:28] LABS: Glucose, Whole Blood 233 mg/dL (60-115)
[2022-04-02] MEDS: Ondansetron ODT 4 MG TAB.RAPDIS TRANSLINGU (01:28)
--- NOTE | 2022-04-02 01:41 | ED.DIZZY ---
HPI - Dizziness General Chief Complaint: Abdominal Pain Stated Complaint: Vomiting/Dizziness Time Seen by Provider: 04/02/22 01:36 Source: patient Mode of arrival: ambulatory Limitations: no limitations History of Present Illness HPI Narrative: patient diabetic came here for sudden onset of dizziness started yesterday 1600 got worse today vomited several times feels more dizzy when turns her head to left side no headaches no focal weakness patient feel off balance has tinnitus in the right ear pt. had similar episodes in the past some of the complaining of diffuse abdominal pain no fever no chills no earache no sore throat Related Data Home Medications Medication Instructions Recorded Confirmed vaporizers #1 ea 10/10/20 03/16/22 zolpidem 10 mg tablet 10 mg PO BEDTIME 05/08/21 03/16/22 clonidine HCl 0.1 mg tablet 0.1 mg PO DAILY 09/19/21 03/16/22 duloxetine 60 mg capsule,delayed 60 mg PO DAILY 09/19/21 03/16/22 release mirtazapine 7.5 mg tablet 15 mg PO BEDTIME 10/09/21 03/16/22 Previous Rx's Medication Instructions Recorded blood pressure test kit-wrist #1 ea 09/13/20 (Blood Pressure Unit-Wrist) fluticasone propionate 50 2 spray intranasal DAILY 1 month 11/14/20 mcg/actuation nasal #16 grams spray,suspension fluticasone propionate 110 2 puff inhalation BID 1 month #12 05/22/21 mcg/actuation HFA aerosol inhaler grams alcohol swabs 2 pad topical BID #100 ea 05/23/21 lancets 28 gauge (FreeStyle #100 ea 05/23/21 Lancets) pantoprazole 40 mg tablet,delayed 40 mg PO DAILY 30 days #30 tabs 06/30/21 release (Protonix) blood sugar diagnostic (FreeStyle #100 ea 09/16/21 Lite Strips) blood-glucose meter (FreeStyle #1 ea 09/16/21 Lite Meter) ergocalciferol (vitamin D2) 1,250 1,250 mcg PO QWEEK 90 days #13 caps 09/24/21 mcg (50,000 unit) capsule metoprolol tartrate 50 mg tablet 50 mg PO BID 3 months #180 tabs 10/08/21 water for irrigation, sterile 1 irrig irrigation DAILY for use 10/14/21 with cpap #8,000 mL pyridoxine (vitamin B6) 100 mg 100 mg PO DAILY 90 days #90 tabs 10/27/21 tablet sumatriptan succinate 25 mg tablet See Rx Instructions PO .COMPLEX 11/10/21 #14 tabs furosemide 40 mg tablet 40 mg PO DAILY 1 month #30 tabs 11/12/21 lancets 28 gauge (FreeStyle #100 ea 11/12/21 Lancets) metformin 500 mg tablet 500 mg PO BID #180 tabs 11/15/21 albuterol sulfate 90 mcg/actuation 2 puff inhalation Q6H PRN 11/18/21 aerosol inhaler (Ventolin HFA) shortness of breath or wheezing 30 days #6.7 grams diabetic supplies, miscellan. #1 ea 12/03/21 flash glucose sensor (FreeStyle #1 ea 12/03/21 Julianne 2 Sensor) ondansetron 4 mg disintegrating 4 mg PO Q6-8H PRN nausea and 01/18/22 tablet vomiting #14 tabs heating pads #1 ea 01/21/22 [id number]-[id number]-[id number] 1 cap PO QID #120 caps 01/23/22 24,000-76,000-120,000 unit capsule,delayed rel (Creon) sennosides 8.6 mg tablet (senna) 17.2 mg PO BEDTIME #60 tabs 01/26/22 Gel mattress overlay #1 ea 01/28/22 baclofen 10 mg tablet 10 mg PO TID 30 days #90 tabs 02/04/22 cyclobenzaprine 10 mg tablet 10 mg PO Q8H PRN Muscle spasm #14 02/06/22 tabs albuterol sulfate 2.5 mg (3 mL) inhalation TID PRN 02/10/22 shortness of breath or wheezing 1 month #180 mL ferrous sulfate 325 mg (65 mg 325 mg PO BID #60 tabs 02/11/22 iron) tablet levothyroxine 112 mcg tablet 112 mcg PO DAILY #30 tabs 02/16/22 lidocaine 5 % topical patch 1 patch topical DAILY 30 days #30 02/16/22 ea dulaglutide 0.75 mg/0.5 mL 0.75 mg (0.5 mL) subcut QWEEK #2 mL 02/17/22 subcutaneous pen injector (Trulicity) Toilet seat riser #1 ea 03/05/22 walker #1 ea 03/05/22 Shower Chair #1 ea 03/09/22 meclizine 25 mg tablet 25 mg PO BID PRN vertigo #30 tabs 03/09/22 acetaminophen 500 mg tablet 500 mg PO Q6H PRN fever or pain 30 03/10/22 (Tylenol Extra Strength) days #120 tabs blood pressure monitor #1 ea 03/10/22 miscellaneous medical supply #1 ea 03/10/22 amlodipine 10 mg tablet 10 mg PO DAILY #90 tabs 03/12/22 atorvastatin 10 mg tablet 10 mg PO BEDTIME 90 days #90 tabs 03/16/22 tizanidine 4 mg tablet 4 mg PO BEDTIME PRN muscle 03/16/22 spasticity 7 days #7 tabs meclizine 25 mg tablet 25 mg PO TID PRN dizziness #20 tabs 04/02/22 Allergies Allergy/AdvReac Type Severity Reaction Status Date / Time Penicillins Allergy Severe swelling Verified 03/16/22 08:11 adhesive tape [ADHESIVE TAPE] Allergy Intermediate RASH Verified 03/16/22 08:11 amoxicillin [AMOXICILLIN] Allergy Intermediate RASH,SWELLING, Verified 03/16/22 08:11 RASH/SWELLING latex Allergy Intermediate Rash Verified 03/16/22 08:11 Motrin Allergy Intermediate hypertensio Verified 03/16/22 08:11 n Review of Systems Review of Systems: Yes all other systems are reviewed and are negative [facility] Past Medical History Medical History (Updated 04/02/22 @ 06:48 by Saul Chino MD) Arthropathy of facet joint Asthma Bilateral shoulder pain Chronic pain (Unknown) Chronic pain syndrome Degeneration, intervertebral disc, cervical Diabetes mellitus Disc degeneration, lumbar Fibromyalgia LUDY (generalized anxiety disorder) Goiter Hyperlipidemia LDL goal <70 Hypothyroidism Incontinence Insomnia Left knee pain Lumbar pain Moderately severe recurrent major depression Morbid (severe) obesity due to excess calories Multiple air fluid levels of small intestine determined by X-ray Renal calculi Sleep apnea Spondylosis of cervical spine at multiple levels without myelopathy Spondylosis of cervical spine at multiple levels without myelopathy Spondylosis of lumbar region without myelopathy or radiculopathy Surgical History Delivery by section History of cholecystectomy History of esophagogastroduodenoscopy (EGD) History of hernia surgery History of hysterectomy History of knee replacement procedure of right knee Hx of colonoscopy Family History Family History Father Past heart attack Anxiety Mother MOF (multiple organ failure) Brother HIV (human immunodeficiency virus infection) Sister Ovarian cancer Lupus Bone cancer Uterine cancer Tumor Daughter Guillain-[place] Sister Lupus History of open heart surgery Family/Other Depression FH: mental illness Maternal Aunt Breast cancer Maternal Aunt Tumor Social History Social History Household Members: None Household Members Other:: Housing: Apartment Are you a primary residential care officer to a significant other at home: No Do you presently have visiting nurse or other home services: Yes (manager of transportation) Alcohol intake: never Patient Tobacco Use Status: Never used Tobacco e-Cigarette/Vaping Use: Never Used Second Hand Smoke Exposure: Yes Use of substances other than those prescribed or required for medical reasons: No Advance Directives: Yes Advance Directives on File: Yes Advance Directives Date on File: 12/08/21 service: No Current occupational status: disabled Cognitive needs: No Hearing needs: No Vision needs: No Physical Exam Vital Signs: Vital Signs: Last Vital Signs Temp 97.9 F 04/02/22 01:16 Pulse 106 H 04/02/22 06:11 Resp 14 04/02/22 04:36 BP 145/63 H 04/02/22 06:11 Pulse Ox 94 04/02/22 06:11 O2 Del Method 04/02/22 06:11 BMI result Body Mass Index 42.5 Appearance: Alert. Oriented X3. No acute distress. obese feel nauseated Eyes: no pallor no nystagmus ENT: Pharynx normal. Oral Mucosa moist Neck: Normal inspection. Neck supple. CVS: Normal heart rate and rhythm. Pulses normal. Respiratory: No respiratory distress. Equal air entry bilateral, no wheezing/rales/rhonchi Abdomen: Soft and mild tenderness suprapubic area Bowel sounds are present, no mass palpable, no CVA tenderness Skin: Skin warm and dry. Normal skin color. Normal skin turgor. Extremities: No lower extremity edema. No calf tenderness Neuro: Oriented X 3. No motor deficit. No sensory deficit.No cerebellar signs , cranial nerves II-XII intact MDM - Dizziness MDM Narrative Medical decision making narrative: 06:00 patient with significant dizziness with multiple times patient vomited lab workup showed leukocytosis no signs of infection chest x-ray and CT abdomen is negative urine also negative likely from volume loss and demargination. Will continue to give more fluid and IV Zofran Medical Records Attestation: I reviewed the patient's medical records. Lab Data Attestation: I reviewed the patient's lab results. Result diagrams: 04/02/22 01:30 04/02/22 01:30 Labs: Lab Results 04/02/22 04/02/22 04/02/22 Range/Units 01:24 01:30 01:30 WBC 22.8 H (4.8-10.8) X10*3/uL RBC 5.46 (4.20-5.50) X10*6/uL Hgb 13.1 (12.0-16.0) g/dl Hct 42.5 (37.0-47.0) % MCV 77.8 L (80.0-98.0) fL MCH 24.0 L (27.0-33.0) pg MCHC 30.8 L (31.0-35.0) g/dl RDW 16.7 H (11.0-16.0) % Plt Count 326 (160-400) X10*3/uL MPV 10.7 (9.4-12.3) fL Immature Gran % (Auto) 0.6 H (0.0-0.4) % Neut % (Auto) 90.3 H (45-73) % Lymph % (Auto) 7.1 L (20-40) % [place] % (Auto) 1.6 L (2-11) % Eos % (Auto) 0.1 (0-4) % Baso % (Auto) 0.3 (0-2) % Lymph # (Auto) 1.6 (1.2-4.9) X10*3/uL [place] # (Auto) 0.4 (0.1-1.2) X10*3/uL Eos # (Auto) 0.0 (0.0-0.4) X10*3/uL Baso # (Auto) 0.1 (0.0-0.2) X10*3/uL Abs Immat Gran (auto) 0.13 H (0.00-0.03) X10*3/uL Absolute Neuts (auto) 20.6 H (2.0-8.3) x10*3/uL Absolute Nucleated RBC 0.000 (0.0-0.012) X10*3/uL Nucleated RBC % (auto) 0.0 (0.0-0.2) /100WBC Smear Tech's Comments VERIFIED Sodium 139 (135-145) mmol/L Potassium 4.1 (3.3-5.1) mmol/L Chloride 105 (96-108) mmol/L Carbon Dioxide 19 L (22-29) mmol/L Anion Gap 19 (12-20) BUN 14 (9-16) mg/dL Creatinine 0.81 (0.5-1.4) mg/dL Estim Creat Clear Calc 105.7 Estimated GFR > 60 POC Glucose 233 H (60-115) mg/dL Random Glucose 258 H (60-115) mg/dL Calcium 9.6 (8.4-10.2) mg/dL Total Bilirubin 0.6 (0.0-1.0) mg/dL Direct Bilirubin 0.4 (0.0-0.5) mg/dL AST 34 H (5-31) U/L ALT 52 H (0-31) U/L Alkaline Phosphatase 129 H (39-117) U/L Total Protein 8.1 H (6.5-8.0) g/dL Albumin 4.3 (3.5-5.0) g/dL Urine Color Urine Appearance Urine pH (5.0-8.0) Ur Specific Organ (1.005-1.025) Urine Protein (NEG-TRACE) MG/DL Urine Glucose (UA) (NEG) MG/DL Urine Ketones (NEG) MG/DL Urine Blood (NEG) Urine Nitrite (NEG) Ur Leukocyte Esterase (NEG) COVID-19 (CORNELL) (Negative) COVID-19 Clin Com Influenza Type A (TAL) (Negative) Influenza Type B (TAL) (Negative) Influenza A & B Note 04/02/22 04/02/22 04/02/22 Range/Units 01:30 01:30 03:43 WBC (4.8-10.8) X10*3/uL RBC (4.20-5.50) X10*6/uL Hgb (12.0-16.0) g/dl Hct (37.0-47.0) % MCV (80.0-98.0) fL MCH (27.0-33.0) pg MCHC (31.0-35.0) g/dl RDW (11.0-16.0) % Plt Count (160-400) X10*3/uL MPV (9.4-12.3) fL Immature Gran % (Auto) (0.0-0.4) % Neut % (Auto) (45-73) % Lymph % (Auto) (20-40) % [place] % (Auto) (2-11) % Eos % (Auto) (0-4) % Baso % (Auto) (0-2) % Lymph # (Auto) (1.2-4.9) X10*3/uL [place] # (Auto) (0.1-1.2) X10*3/uL Eos # (Auto) (0.0-0.4) X10*3/uL Baso # (Auto) (0.0-0.2) X10*3/uL Abs Immat Gran (auto) (0.00-0.03) X10*3/uL Absolute Neuts (auto) (2.0-8.3) x10*3/uL Absolute Nucleated RBC (0.0-0.012) X10*3/uL Nucleated RBC % (auto) (0.0-0.2) /100WBC Smear Tech's Comments Sodium (135-145) mmol/L Potassium (3.3-5.1) mmol/L Chloride (96-108) mmol/L Carbon Dioxide (22-29) mmol/L Anion Gap (12-20) BUN (9-16) mg/dL Creatinine (0.5-1.4) mg/dL Estim Creat Clear Calc Estimated GFR POC Glucose (60-115) mg/dL Random Glucose (60-115) mg/dL Calcium (8.4-10.2) mg/dL Total Bilirubin (0.0-1.0) mg/dL Direct Bilirubin (0.0-0.5) mg/dL AST (5-31) U/L ALT (0-31) U/L Alkaline Phosphatase (39-117) U/L Total Protein (6.5-8.0) g/dL Albumin (3.5-5.0) g/dL Urine Color YELLOW Urine Appearance CLEAR Urine pH 6.0 (5.0-8.0) Ur Specific Organ 1.015 (1.005-1.025) Urine Protein NEG (NEG-TRACE) MG/DL Urine Glucose (UA) NEG (NEG) MG/DL Urine Ketones >=80 (NEG) MG/DL Urine Blood NEG (NEG) Urine Nitrite NEG (NEG) Ur Leukocyte Esterase NEG (NEG) COVID-19 (CORNELL) Negative (Negative) COVID-19 Clin Com See Note Influenza Type A (TAL) Negative (Negative) Influenza Type B (TAL) Negative (Negative) Influenza A & B Note See Note Discharge Plan Discharge Clinical Impression: Benign paroxysmal positional vertigo Patient Disposition: Still a Patient Instructions: Benign Paroxysmal Positional Vertigo (ED) Additional Instructions: rest at home take medication as prescribed for severe dizziness follow with PCP if not better Prescriptions: New meclizine 25 mg tablet 25 mg PO TID PRN (Reason: dizziness) Qty: 20 0RF No Action fluticasone propionate 110 mcg/actuation HFA aerosol inhaler 2 puff inhalation BID 30 Days Qty: 12 5RF alcohol swabs Pads, Medicated 2 pad topical BID Qty: 100 6RF (DME) lancets [FreeStyle Lancets] 28 gauge misc See Rx Instructions .Route Qty: 100 6RF Rx Instructions: BID pantoprazole [Protonix] 40 mg tablet,delayed release (DR/EC) 40 mg PO DAILY 30 Days Qty: 30 0RF ergocalciferol (vitamin D2) 1,250 mcg (50,000 unit) capsule 1,250 mcg PO QWEEK 90 Days Qty: 13 1RF metoprolol tartrate 50 mg tablet 50 mg PO BID 90 Days Qty: 180 1RF water for irrigation, sterile Solution 1 irrig irrigation DAILY Qty: 8000 8RF sumatriptan succinate 25 mg tablet See Rx Instructions PO .COMPLEX Qty: 14 0RF Rx Instructions: take 1 tab at onset of headache; if no relief may repeat 1 tab after at least 2 hrs; max = 4 tabs/24 hr PO furosemide 40 mg tablet 40 mg PO DAILY 30 Days Qty: 30 6RF (DME) lancets [FreeStyle Lancets] 28 gauge misc See Rx Instructions .Route Qty: 100 3RF Rx Instructions: Use 1 lancet once a day metformin 500 mg tablet 500 mg PO BID Qty: 180 2RF albuterol sulfate [Ventolin HFA] 90 mcg/actuation HFA aerosol inhaler 2 puff inhalation Q6H PRN (Reason: shortness of breath or wheezing) 30 Days Qty: 6.7 1RF (DME) FreeStyle Julianne 2 Sensor Kit See Rx Instructions .Route Qty: 1 2RF Rx Instructions: As directed (DME) diabetic supplies[facility]. [facility] .Route Qty: 1 0RF Rx Instructions: As directed (DME) heating pads Pad See Rx Instructions .Route Qty: 1 0RF Rx Instructions: As directed Creon 24,000-76,000 -120,000 unit capsule,delayed release(DR/EC) 1 cap PO QID Qty: 120 1RF sennosides [senna] 8.6 mg tablet 17.2 mg PO BEDTIME Qty: 60 3RF (DME) Gel mattress overlay [facility] See [facility] Instructions .Route Qty: 1 0RF Rx Instructions: As directed baclofen 10 mg tablet 10 mg PO TID 30 Days Qty: 90 1RF Hold Instructions: Doctor's Order albuterol sulfate 2.5 mg /3 mL (0.083 %) solution for nebulization 2.5 mg inhalation TID PRN (Reason: shortness of breath or wheezing) 30 Days Qty: 180 1RF levothyroxine 112 mcg tablet 112 mcg PO DAILY Qty: 30 2RF lidocaine 5 % adhesive patch,medicated 1 patch topical DAILY 30 Days Qty: 30 1RF Rx Instructions: leave on most painful area for up to 12 hrs Trulicity 0.75 mg/0.5 mL pen injector 0.75 mg subcut QWEEK Qty: 2 2RF (DME) Toilet seat riser See Rx Instructions .Route .MEDSUPPLY Qty: 1 0RF Rx Instructions: As directed (DME) walker [facility] See Rx Instructions .Route Qty: 1 0RF Rx Instructions: As directed meclizine 25 mg tablet 25 mg PO BID PRN (Reason: vertigo) Qty: 30 0RF (DME) Shower Chair [facility] See Rx Instructions .Route Qty: 1 0RF Rx Instructions: As directed acetaminophen [Tylenol Extra Strength] 500 mg tablet 500 mg PO Q6H PRN (Reason: fever or pain) 30 Days Qty: 120 1RF (DME) miscellaneous medical supply [facility] See Rx Instructions .ROUTE .MEDSUPPLY Qty: 1 0RF Rx Instructions: toilet seat elevator (DME) blood pressure monitor Kit See Rx Instructions .Route Qty: 1 0RF Rx Instructions: Use as needed amlodipine 10 mg tablet 10 mg PO DAILY Qty: 90 1RF ferrous sulfate 325 mg (65 mg iron) Tablet 325 mg PO BID Qty: 60 3RF ondansetron 4 mg tablet,disintegrating 4 mg PO Q6-8H PRN (Reason: nausea and vomiting) Qty: 14 0RF cyclobenzaprine 10 mg tablet 10 mg PO Q8H PRN (Reason: Muscle spasm) Qty: 14 0RF Hold Instructions: Doctor's Order fluticasone propionate 50 mcg/actuation spray,suspension 2 spray intranasal DAILY 30 Days Qty: 16 4RF zolpidem 10 mg tablet 10 mg PO BEDTIME (DME) blood pressure test kit-wrist [Blood Pressure Unit-Wrist] Kit See Rx Instructions .ROUTE .MEDSUPPLY Qty: 1 0RF Rx Instructions: to check blood pressure ([facility]) vaporizers [facility] See Rx Instructions .ROUTE .MEDSUPPLY Qty: 1 Rx Instructions: As directed (DME) blood-glucose meter [FreeStyle Lite Meter] Kit See Rx Instructions .Route Qty: 1 0RF Rx Instructions: As directed (DME) FreeStyle Lite Strips Strip See Rx Instructions .Route Qty: 100 3RF Rx Instructions: use 1 test strip once a day tizanidine 4 mg tablet 4 mg PO BEDTIME PRN (Reason: muscle spasticity) 7 Days Qty: 7 0RF atorvastatin 10 mg tablet 10 mg PO BEDTIME 90 Days Qty: 90 1RF duloxetine 60 mg capsule,delayed release(DR/EC) 60 mg PO DAILY clonidine HCl 0.1 mg tablet 0.1 mg PO DAILY pyridoxine (vitamin B6) 100 mg tablet 100 mg PO DAILY 90 Days Qty: 90 1RF mirtazapine 7.5 mg tablet 15 mg PO BEDTIME
[2022-04-02 01:43] LABS: Basophils Absolute Auto 0.1 X10*3/uL (0.0-0.2); Basophils Percent Auto 0.3 % (0-2); Eosinophils Percent Auto 0.1 % (0-4); Hematocrit 42.5 % (37.0-47.0); Hemoglobin 13.1 g/dl (12.0-16.0); Imm Gran Abs Auto 0.13 X10*3/uL (0.00-0.03); Imm Gran Pct Auto 0.6 % (0.0-0.4); Lymphocytes Absolute Auto 1.6 X10*3/uL (1.2-4.9); Lymphocytes Percent Auto 7.1 % (20-40); MANUAL DIFF FLAG SCAN; Mean Corpuscular HGB Conc 30.8 g/dl (31.0-35.0); Mean Corpuscular Volume 77.8 fL (80.0-98.0); Mean Platelet Volume 10.7 fL (9.4-12.3); Monocytes Absolute Auto 0.4 X10*3/uL (0.1-1.2); Monocytes Percent Auto 1.6 % (2-11); Neutrophils Absolute Auto 20.6 x10*3/uL (2.0-8.3); Neutrophils Percent Auto 90.3 % (45-73); Platelet Count 326 X10*3/uL (160-400); Red Blood Count 5.46 X10*6/uL (4.20-5.50); Red Cell Distribution Width 16.7 % (11.0-16.0); SCAN SMEAR FLAG 1; White Blood Count 22.8 X10*3/uL (4.8-10.8)
[2022-04-02 02:00] LABS: COVID-19 Test Negative (Negative); IDNOW Serial# 16C4AD1C; Influenza A Negative (Negative); Influenza B2 Negative (Negative)
[2022-04-02] MEDS: Meclizine HCl 25 MG TABLET PO (02:03)
[2022-04-02] MEDS: 0.9 % Sodium Chloride 1,000 ML 999 ML IV ×2 (02:03→06:05)
[2022-04-02] MEDS: LORazepam 2 MG/ML VIAL 1 MG IVPUSH (02:03)
--- NOTE | 2022-04-02 02:07 | PC.NURSE ---
pt drowsy, orientedx3, vss, pt experiencing dizziness starting yesterday - near syncopal episodes, 20G IV placed right forearm, medicated per provider order, ivf running.
[2022-04-02 02:10] VITALS: BP 149/75; PULSE 97; RESP 16; O2SAT 93
[2022-04-02 02:31] LABS: SLIDE REVIEW VERIFIED
[2022-04-02 03:19] LABS: Alanine Aminotransferase 52 U/L (0-31); Albumin Level 4.3 g/dL (3.5-5.0); Alkaline Phosphatase 129 U/L (39-117); Anion Gap 19 (12-20); Aspartate Amino Transferase 34 U/L (5-31); Bilirubin Direct 0.4 mg/dL (0.0-0.5); Bilirubin Total 0.6 mg/dL (0.0-1.0); Blood Urea Nitrogen 14 mg/dL (9-16); Calcium 9.6 mg/dL (8.4-10.2); Carbon Dioxide 19 mmol/L (22-29); Chloride 105 mmol/L (96-108); Creatinine Clr Calc Pharmacy 105.7; Estimated Glomerular Filt Rate > 60; Glucose Random 258 mg/dL (60-115); Potassium 4.1 mmol/L (3.3-5.1); Sodium 139 mmol/L (135-145); Total Protein 8.1 g/dL (6.5-8.0)
[2022-04-02 03:49] LABS: Appearance Urine CLEAR; Color Urine YELLOW; Glucose Urine UA NEG (NEG); Leukocyte Esterase Urine NEG (NEG); Nitrite Urine NEG (NEG); Specific Gravity - Urine 1.015 (1.005-1.025); Urine Blood NEG (NEG); Urine Ketones >=80 MG/DL (NEG); Urine Protein NEG (NEG-TRACE)
[2022-04-02 04:08] VITALS: BP 143/75; PULSE 98; RESP 22; O2SAT 91
[2022-04-02] MEDS: Albuterol/Iprat 2.5/0.5MG 3 ML AMPUL.NEB INHALE (04:29)
[2022-04-02 04:36] VITALS: PULSE 95; RESP 14; O2SAT 93
[2022-04-02] MEDS: ondansetron HCL 4 MG/2 ML VIAL IVPUSH (05:18)
--- NOTE | 2022-04-02 05:20 | PC.NURSE ---
Per interventional tech, pt spitting into an emesis bag, reporting nausea, interventional tech requesting pt be medicated prior to CT. Pt sitting upright in bed, spitting saliva into emesis bag, -vomitus noted. Pt reporting nausea, medicated with Zofran per MAR. Pt aware of plan for CT and probable discharge. Continue to monitor.
[2022-04-02 06:11] VITALS: BP 145/63; PULSE 106; O2SAT 94
== END 2022-04-02 07:34 | disposition home or self-care (01) ==
PROVIDERS: Emergency Provider Internal Medicine; PCP Internal Medicine
DX: H81.11 Benign paroxysmal vertigo, right ear (principal); R10.9 Unspecified abdominal pain; R11.10 Vomiting, unspecified; Z20.822 Contact with and (suspected) exposure to COVID-19; E11.9 Type 2 diabetes mellitus without complications; E78.5 Hyperlipidemia, unspecified
CPT/HCPCS: 71045; 74176; 80053; 81003; 82248; 82947; 85025; 87502; 87635; 94640; 96361; 96374; 96375; 99284; J2060; J2405

== ENCOUNTER 2022-04-02 12:16 | Outpatient (REF) | payer OTHER, SELFPAY | END 2022-04-02 12:17 | disposition home or self-care (01) | LOC: HO.HOSX 12:16 | PROVIDERS: Visit Provider Orthopaedic Surgery | DX: Z13.89 Encounter for screening for other disorder (principal) ==

== ENCOUNTER → 2022-05-06 14:01 | Outpatient (BNVA) | payer OTHER, SELFPAY | PROVIDERS: PCP Internal Medicine; Visit Provider Internal Medicine Pulmonary Disease | DX: J45.40 Moderate persistent asthma, uncomplicated (principal); R91.8 Other nonspecific abnormal finding of lung field; Z91.09 Other allergy status, other than to drugs and biological substances | CPT/HCPCS: 99212 ==

== ENCOUNTER 2022-05-07 13:51 | Observation (INO) | payer OTHER, SELFPAY ==
--- NOTE | ~2022-05-07 | CT_ITS ---
EXAMINATION: CT ABDOMEN AND PELVIS WITH CONTRAST CLINICAL INFORMATION: Persistent nausea and vomiting. COMPARISON: None TECHNIQUE: Multidetector volumetric images were obtained from the superior aspect of the liver through the pubic symphysis following administration 85 mL of Omnipaque 350 intravenous contrast. Sagittal and coronal reformatted images were obtained on the technologist's workstation. Oral contrast: No This CT examination was performed using dose optimization techniques as appropriate, variously including the following: *Automated exposure control *Adjustment of mA and/or kV according to patient size (this includes techniques or standardized protocols for targeted exams where dose is matched to indication/reason for exam; i.e. extremities or head) *Use of iterative reconstruction technique DLP: 1116 mGy-cm FINDINGS: LUNG BASES: The lung bases are clear. The heart size is normal. LIVER, GALLBLADDER, AND BILIARY TREE: The liver is normal in size, shape, and diffuse hypoattenuation. No focal hepatic lesion or biliary ductal dilatation is present. The gallbladder has been surgically removed. PANCREAS: Unremarkable. SPLEEN: Unremarkable. ADRENAL GLANDS: There is a right adrenal 9 mm hypodense nodule likely adrenal myolipoma. The left adrenal gland is unremarkable.. KIDNEYS AND URETERS: The kidneys are normal in size, shape, and attenuation. No hydronephrosis, hydroureter, or calculi seen. No perinephric stranding. BLADDER: Unremarkable. GASTROINTESTINAL TRACT: There is scattered stool throughout the colon without any distention. The appendix and the small bowel loops are normal caliber. No inflammatory process, free air or free fluid. ABDOMINAL WALL: No significant hernia is appreciated. LYMPH NODES: Normal. VASCULAR: Unremarkable. PELVIC VISCERA: The uterus is midline. There is no adnexal mass. There is no free fluid or abnormal lymphadenopathy. OSSEOUS STRUCTURES: Degenerative disc changes with vacuum disc phenomena at L5-S1 disc level and mild ventral spondylosis lower dorsal spine. CT/CT abdomen pelvis w con IMPRESSION: No acute intra-abdominal process seen. Mild hepatic steatosis. 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 Fleischner guidelines were followed.
--- NOTE | ~2022-05-07 | NM_ITS ---
EXAMINATION: RI RADIONUCLIDE SOLID FOOD GASTRIC EMPTYING 4-HOUR STUDY CLINICAL INFORMATION: Nausea and vomiting. History of diabetes. COMPARISON: None TECHNIQUE: A standard meal consisting of 2 egg whites tagged with 0.7 mCi of Tc99 FSC, one slice of toast with jelly and 6 ounces of water was administered to the patient. Images were obtained using a dual head gamma camera in the anterior and posterior projections over of the stomach immediately post ingestion and at hourly intervals up to 4 hours post ingestion. The anterior and posterior counts at each time interval were averaged using the geometric mean and expressed as percentage of the immediate post ingestion counts. FINDINGS: There is good visualization of activity in the stomach immediately post ingestion. As the study progresses, there is delayed clearance of radiotracer from the stomach. Retention in the stomach at each time interval was: 1 hour 83% (normal 37%-90%) 2 hours 64% (normal 30%-60%) 3 hours 44% 4 hours 27% (normal 0%-10%) RI/RI gastric emptying study IMPRESSION: Delayed gastric emptying as described.
--- NOTE | ~2022-05-07 | CT_ITS ---
EXAMINATION: CT head/brain wo con CLINICAL INFORMATION: Reason for Exam continued dizziness COMPARISON: CT brain 01/15/2022 TECHNIQUE: Contiguous axial imaging was performed from the skull base to vertex without intravenous contrast. Sagittal and coronal reformatted images were obtained. This CT examination was performed using dose optimization techniques as appropriate, variously including the following: * Automated exposure control * Adjustment of mA and/or kV according to patient size (this includes techniques or standardized protocols for targeted exams where dose is matched to indication/reason for exam; i.e. extremities or head) Use of iterative reconstruction technique DLP: 852 mGy-cm FINDINGS: No acute osseous or soft tissue abnormality. The mastoid air cells and visualized portions of the paranasal sinuses are well aerated. There is no evidence of acute intracranial hemorrhage or territorial infarction. No abnormal mass effect or midline shift is seen. Harris to white matter differentiation is well preserved. No extra-axial fluid collections are identified. No hydrocephalus. Proportional prominence of the ventricles and sulcal spaces is consistent with mild volume loss. Patchy periventricular and deep white matter hypoattenuation is consistent with mild small vessel ischemic changes. CT/CT head/brain wo con IMPRESSION: 1. No acute intracranial abnormality.
--- NOTE | ~2022-05-07 | XR_ITS ---
EXAMINATION: XR CHEST CLINICAL INFORMATION: Shortness of breath, hypoxia. COMPARISON: 04/02/2022 chest radiograph. TECHNIQUE: Frontal view of the chest was obtained. FINDINGS: Moderate elevation right hemidiaphragm with mild superjacent atelectasis. The right upper lung field and left lung are clear. The heart and mediastinal structures are unremarkable. XR/XR chest 1V IMPRESSION: No acute cardiopulmonary process.
[2022-05-07 13:54] VITALS: BP 158/93; PULSE 108; RESP 20; TEMP 36.3; O2SAT 94; BMI 42.5
--- NOTE | 2022-05-07 14:42 | ED_ITS ---
HPI - General Adult General Chief complaint: Nausea/Vomiting/Diarrhea <KAYLA Ramos - Last Filed: 05/07/22 17:45> Stated complaint: Vommiting <KAYLA Ramos - Last Filed: 05/07/22 17:45> Time Seen by Provider: 05/07/22 14:42 <KAYLA Ramos Last Filed: 05/07/22 17:45> Source: patient <KAYLA Ramos Last Filed: 05/07/22 17:45> Mode of arrival: ambulatory <KAYLA Ramos Last Filed: 05/07/22 17:45> Limitations: no limitations <KAYLA Ramos Last Filed: 05/07/22 17:45> History of Present Illness HPI narrative: Patient is a 57 year old female presenting to the emergency department today with dizziness and nausea. Patient states that she has this happens at least once a month and is following up with her GI provider next week. Patient states that she usually takes Zoafran and Meclazine at home but she recently ran out of Zofran. Patient denies any lightheadedness, fever, chills, blurry vision, double vision, loss of vision, chest pain, difficulty breathing, shortness of breath, back pain, night sweats, pain with urination, increased urinary frequency, increased urinary urgency, blood in her urine or stool, syncope or a near syncopal episode, recent trauma or falls, bowel incontinence, bladder incontinence, bowel retention, bladder retention, or any other complaints at this time. <KAYLA Ramos - Last Filed: 05/07/22 17:45> Onset (ago): hour(s) <KAYLA Ramos - Last Filed: 05/07/22 17:45> Severity: mild <KAYLA Ramos Last Filed: 05/07/22 17:45> Severity scale (1-10): 2 <KAYLA Ramos Last Filed: 05/07/22 17:45> Relieving factors: none <KAYLA Ramos Last Filed: 05/07/22 17:45> Exacerbating factors: none <KAYLA Ramos Last Filed: 05/07/22 17:45> Associated symptoms: nausea/vomiting <KAYLA Ramos - Last Filed: 05/07/22 17:45> Treatments prior to arrival: none <KAYLA Ramos - Last Filed: 05/07/22 17:45> Related Data Home medications: Home Medications Medication Instructions Recorded Confirmed vaporizers #1 ea 10/10/20 04/09/22 zolpidem 10 mg tablet 10 mg PO BEDTIME 05/08/21 04/09/22 clonidine HCl 0.1 mg tablet 0.1 mg PO DAILY 09/19/21 04/09/22 duloxetine 60 mg capsule,delayed 60 mg PO DAILY 09/19/21 04/09/22 release lorazepam 0.5 mg tablet 0.5 mg PO DAILY PRN 04/09/22 04/09/22 mirtazapine 15 mg tablet 15 mg PO BEDTIME insomnia 04/09/22 04/09/22 prochlorperazine maleate 10 mg 10 mg PO Q8H PRN 04/09/22 04/09/22 tablet Previous Rx's Medication Instructions Recorded blood pressure test kit-wrist #1 ea 09/13/20 (Blood Pressure Unit-Wrist kit) fluticasone propionate 50 2 spray intranasal DAILY 1 month 11/14/20 mcg/actuation nasal #16 grams spray,suspension alcohol swabs 2 pad topical BID #100 ea 05/23/21 lancets 28 gauge (FreeStyle #100 ea 05/23/21 Lancets) pantoprazole 40 mg tablet,delayed 40 mg PO DAILY 30 days #30 tabs 06/30/21 release (Protonix) blood sugar diagnostic (FreeStyle #100 ea 09/16/21 Lite Strips) blood-glucose meter (FreeStyle #1 ea 09/16/21 Lite Meter kit) metoprolol tartrate 50 mg tablet 50 mg PO BID 3 months #180 tabs 10/08/21 furosemide 40 mg tablet 40 mg PO DAILY 1 month #30 tabs 11/12/21 lancets 28 gauge (FreeStyle #100 ea 11/12/21 Lancets) metformin 500 mg tablet 500 mg PO BID #180 tabs 11/15/21 diabetic supplies, miscellan. #1 ea 12/03/21 flash glucose sensor (FreeStyle #1 ea 12/03/21 Julianne 2 Sensor kit) heating pads #1 ea 01/21/22 sennosides 8.6 mg tablet (senna) 17.2 mg PO BEDTIME #60 tabs 01/26/22 Gel mattress overlay #1 ea 01/28/22 baclofen 10 mg tablet 10 mg PO TID 30 days #90 tabs 02/04/22 cyclobenzaprine 10 mg tablet 10 mg PO Q8H PRN Muscle spasm #14 02/06/22 tabs albuterol sulfate 2.5 mg/3 mL 2.5 mg (3 mL) inhalation TID PRN 02/10/22 (0.083 %) solution for nebulization shortness of breath or wheezing 1 month #180 mL levothyroxine 112 mcg tablet 112 mcg PO DAILY #30 tabs 02/16/22 Toilet seat riser #1 ea 03/05/22 walker #1 ea 03/05/22 Shower Chair #1 ea 03/09/22 acetaminophen 500 mg tablet 500 mg PO Q6H PRN fever or pain 30 03/10/22 (Tylenol Extra Strength) days #120 tabs blood pressure monitor #1 ea 03/10/22 miscellaneous medical supply #1 ea 03/10/22 amlodipine 10 mg tablet 10 mg PO DAILY #90 tabs 03/12/22 atorvastatin 10 mg tablet 10 mg PO BEDTIME 90 days #90 tabs 03/16/22 tizanidine 4 mg tablet 4 mg PO BEDTIME PRN muscle 03/16/22 spasticity 7 days #7 tabs ergocalciferol (vitamin D2) 1,250 1,250 mcg PO QWEEK 90 days #13 caps 04/08/22 mcg (50,000 unit) capsule albuterol sulfate 90 mcg/actuation 2 puff inhalation Q6H PRN 04/09/22 aerosol inhaler (Ventolin HFA) shortness of breath or wheezing 30 days #6.7 grams ferrous sulfate 325 mg (65 mg 325 mg PO DAILY 90 days #90 tabs 04/09/22 iron) tablet fluticasone propionate 110 2 puff inhalation BID 1 month #12 04/09/22 mcg/actuation HFA aerosol inhaler grams insulin lispro 100 unit/mL 5 unit (0.05 mL) subcut TID 30 04/09/22 subcutaneous solution (Humalog days #4.5 mL U-100 Insulin) lidocaine 5 % topical patch 1 patch topical DAILY 30 days #30 04/09/22 ea pen needle, diabetic 31 gauge x #100 ea 04/10/22 3/16 (BD Ultra-Fine Mini Pen Needle) insulin syringe-needle U-100 0.5 #100 ea 04/13/22 mL 31 gauge x 5/16 (BD Insulin Syringe Ultra-Fine) pyridoxine (vitamin B6) 100 mg 100 mg PO DAILY 90 days #90 tabs 04/20/22 tablet meclizine 25 mg tablet 25 mg PO TID PRN dizziness #20 tabs 04/29/22 water for irrigation, sterile 1 irrig irrigation DAILY for use 04/29/22 with cpap #8,000 mL dulaglutide 0.75 mg/0.5 mL 0.75 mg (0.5 mL) subcut QWEEK #2 mL 04/30/22 subcutaneous pen injector (Trulicity) sumatriptan succinate 25 mg tablet See Rx Instructions PO .COMPLEX 05/05/22 #14 tabs diabetic shoes and inserts #1 ea 05/06/22 ondansetron 4 mg disintegrating 4 mg PO Q6-8H PRN nausea and 05/07/22 tablet vomiting #14 tabs <KAYLA Ramos - Last Filed: 05/07/22 17:45> Allergies/adverse reactions: Allergies Allergy/AdvReac Type Severity Reaction Status Date / Time Penicillins Allergy Severe swelling Verified 05/07/22 13:58 adhesive tape [ADHESIVE TAPE] Allergy Intermediate RASH Verified 05/07/22 13:58 amoxicillin [AMOXICILLIN] Allergy Intermediate RASH,SWELLING, Verified 05/07/22 13:58 RASH/SWELLING latex Allergy Intermediate Rash Verified 05/07/22 13:58 Motrin Allergy Intermediate hypertensio Verified 05/07/22 13:58 n <KAYLA Ramos - Last Filed: 05/07/22 17:45> Review of Systems Constitutional: Constitutional: Reports no additional constitutional complaints, Denies chills, Denies fever(s) and Denies night sweats <KAYLA Ramos - Last Filed: 05/07/22 17:45> Eyes: Eyes: Reports no additional eye complaints, Denies blurry vision, Denies change in vision, Denies diplopia, Denies eye discharge, Denies loss of vision and Denies eye pain <KAYLA Ramos - Last Filed: 05/07/22 17:45> ENT: Reports dizziness <KAYLA Ramos - Last Filed: 05/07/22 17:45> Cardiovascular: Cardiovascular: Reports no additional cardiovascular complaints, Denies chest pain, Denies lightheadedness, Denies Loss of Consciousness and Denies dyspnea <KAYLA Ramos Last Filed: 05/07/22 17:45> Respiratory: Respiratory: Reports no additional respiratory complaints and Den ies dyspnea <KAYLA Ramos - Last Filed: 05/07/22 17:45> Gastrointestinal: Gastrointestinal: Reports no additional gastrointestinal complaints, Denies abdominal pain, Denies melena, Denies hematochezia, Denies ch surya in bowel habits, Denies change in stool character, Reports nausea and Reports vomiting <KAYLA Ramos Last Filed: 05/07/22 17:45> Genitourinary: Genitourinary: Denies hematuria, Denies urinary frequency, D enies dysuria, Denies urinary incontinence, Denies urinary hesitancy and Denies urinary urgency <KAYLA Ramos Last Filed: 05/07/22 17:45> Musculoskeletal: Musculoskeletal: Reports no additional musculoskeletal complaints, Denies numbness and Denies tingling <KAYLA Ramos Last Filed: 05/07/22 17:45> Neurologic: Reports dizziness, Denies loss of vision, Denies numbness and Denies tingling <KAYLA Ramos Last Filed: 05/07/22 17:45> Psychiatric: Psychiatric: Reports no additional psychiatric complaints <KAYLA Ramos Last Filed: 05/07/22 17:45> Endocrine: Endocrine: Reports no additional endocrine complaints <KAYLA Ramos Last Filed: 05/07/22 17:45> Hematologic/Lymphatic: Hematologic/Lymphatic: Reports no additional hematologic/lymphatic complaints <KAYLA Ramos - Last Filed: 05/07/22 17:45> Allergic/Immunologic: Allergic/Immunologic: Reports no additional allergic/immunologic complaints <KAYLA Ramos Last Filed: 05/07/22 17:45> PMFSH Past Medical History Attestation statement: The following information was validated with the patient. <KAYLA Ramos - Last Filed: 05/07/22 17:45> Source: old records reviewed <KAYLA Ramos - Last Filed: 05/07/22 17:45> Medical History: Medical History Arthropathy of facet joint Asthma Bilateral shoulder pain Chronic pain (Unknown) Chronic pain syndrome Degeneration, intervertebral disc, cervical Diabetes mellitus Disc degeneration, lumbar Fibromyalgia LUDY (generalized anxiety disorder) Goiter Hyperlipidemia LDL goal <70 Hypothyroidism Incontinence Insomnia Left knee pain Lumbar pain Moderately severe recurrent major depression Morbid (severe) obesity due to excess calories Multiple air fluid levels of small intestine determined by X-ray Renal calculi Sleep apnea Spondylosis of cervical spine at multiple levels without myelopathy Spondylosis of cervical spine at multiple levels without myelopathy Spondylosis of lumbar region without myelopathy or radiculopathy <KAYLA Ramos - Last Filed: 05/07/22 17:45> Surgical History: Surgical History Delivery by section History of cholecystectomy History of esophagogastroduodenoscopy (EGD) History of hernia surgery History of hysterectomy History of knee replacement procedure of right knee Hx of colonoscopy <KAYLA Ramos - Last Filed: 05/07/22 17:45> Family History Family History: Family History Father Past heart attack Anxiety Mother MOF (multiple organ failure) Brother HIV (human immunodeficiency virus infection) Sister Ovarian cancer Lupus Bone cancer Uterine cancer Tumor Daughter Guillain-Rayland Sister Lupus History of open heart surgery Family/Other Depression FH: mental illness Maternal Aunt Breast cancer Maternal Aunt Tumor <KAYLA Ramos - Last Filed: 05/07/22 17:45> Social History Social History: Social History Household Members: None Household Members Other:: Housing: Apartment Are you a primary career technical supervisor to a significant other at home: No 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) Alcohol intake: never Patient Tobacco Use Status: Never used Tobacco e-Cigarette/Vaping Use: Never Used Second Hand Smoke Exposure: Yes Advance Directives: Yes Advance Directives on File: Yes Advance Directives Date on File: 12/08/21 service: No Current occupational status: disabled Cognitive needs: No Hearing needs: No Vision needs: No <KAYLA Ramos - Last Filed: 05/07/22 17:45> Physical Exam ED Vital Signs: Vital Signs - 24 hr 05/07/22 13:54 05/07/22 23:22 Temperature 97.3 F 98.7 F Pulse Rate 108 H 113 H Respiratory Rate 20 20 Blood Pressure 158/93 H 156/79 H Pulse Oximetry 94 97 Oxygen Delivery Method Room Air Room Air BMI result Body Mass Index 42.5 <KAYLA Ramos Last Filed: 05/07/22 17:45> Vital Signs - 24 hr 05/07/22 13:54 05/07/22 23:22 Temperature 97.3 F 98.7 F Pulse Rate 108 H 113 H Respiratory Rate 20 20 Blood Pressure 158/93 H 156/79 H Pulse Oximetry 94 97 Oxygen Delivery Method Room Air Room Air BMI result Body Mass Index 42.5 <KAYLA Alcantara - Last Filed: 05/07/22 21:09> Vital Signs - 24 hr 05/07/22 13:54 05/07/22 23:22 Temperature 97.3 F 98.7 F Pulse Rate 108 H 113 H Respiratory Rate 20 20 Blood Pressure 158/93 H 156/79 H Pulse Oximetry 94 97 Oxygen Delivery Method Room Air Room Air BMI result Body Mass Index 42.5 <Elizabeth Rudd MD - Last Filed: 05/08/22 00:04> Const General: cooperative, no acute distress, alert and awake <KAYLA Ramos - Last Filed: 05/07/22 17:45> Nutritional Appearance: well nourished <KAYLA Ramos Last Filed: 05/07/22 17:45> Orientation/consciousness: patient oriented x3 <KAYLA Ramos Last Filed: 05/07/22 17:45> Limitations: no limitations <KAYLA Ramos Last Filed: 05/07/22 17:45> HENMT Head: Yes normal to inspection and Yes atraumatic <KAYLA Ramos Last Filed: 05/07/22 17:45> Ears: hearing grossly normal bilaterally and external ears normal <KAYLA Ramos Last Filed: 05/07/22 17:45> General nose exam: Normal external nose present, no nasal discharge noted and no epistaxis <KAYLA Ramos Last Filed: 05/07/22 17:45> Face and sinus: Yes normal facial exam, No abrasion and No laceration <Malgorzata Post [facility] Last Filed: 05/07/22 17:45> Mouth: Normal oral and palatal mucosa present, no drooling and no muffled voice <Malgorzata Post [facility] Last Filed: 05/07/22 17:45> Eyes General: appearance normal, both eyes and all related structures <KAYLA Ramos Last Filed: 05/07/22 17:45> Periorbital: periorbital findings normal <Malgorzata Post [facility] Last Filed: 05/07/22 17:45> Eyelids: Yes eyelids normal <KAYLA Ramos Last Filed: 05/07/22 17:45> Conjunctivae: conjunctivae normal <Malgorzata Post [facility] Last Filed: 05/07/22 17:45> Pupils: Equal, round and reactive pupils present <Malgorzata Post [facility] Last Filed: 05/07/22 17:45> EOM: EOMs intact bilaterally <KAYLA Ramos Last Filed: 05/07/22 17:45> Neck Neck: Yes normal visual inspection, Yes full ROM and Yes no lymphadenopathy <KAYLA Ramos Last Filed: 05/07/22 17:45> Chest Chest palpation & inspection: normal inspection of the chest <Malgorzata Post [facility] Last Filed: 05/07/22 17:45> Resp Effort & Inspection: normal respiratory effort and able to speak in complete sentences <KAYLA Ramos Last Filed: 05/07/22 17:45> Auscultation: clear to auscultation bilaterally <KAYLA Ramos Last Filed: 05/07/22 17:45> Cardio Rate: regular rate <KAYLA Ramos Last Filed: 05/07/22 17:45> Rhythm: regular rhythm <KAYLA Ramos Last Filed: 05/07/22 17:45> GI Inspection: Yes normal to inspection <Malgorzata PostKAYLA - Last Filed: 05/07/22 17:45> Palpation (GI): Soft to palpation, not firm, nontender, no guarding and not rigid <Malgorzata PostKAYLA - Last Filed: 05/07/22 17:45> Neuro General: patient oriented x3 and moves all extremities <Malgorzata AngelKAYLA hill - Last Filed: 05/07/22 17:45> Cranial nerves: Yes Equal, round and reactive pupils present <Malgorzata Post PA - Last Filed: 05/07/22 17:45> Cognition (Neuro): normal cognition <Malgorzata AngelKAYLA hill - Last Filed: 05/07/22 17:45> Motor exam (neuro): 5/5 motor strength present throughout <Malgorzata PostKAYLA - Last Filed: 05/07/22 17:45> Sensory Exam: Normal double simultaneous stimulation for sensation <Malgorzatabhargav AngelKAYLA hill - Last Filed: 05/07/22 17:45> Coordination: [id number] test normal <Malgorzata PostKAYLA - Last Filed: 05/07/22 17:45> Extrem General: Yes normal to inspection, Yes full ROM and Yes capillary refill normal <Malgorzata AngelKAYLA hill - Last Filed: 05/07/22 17:45> Psych Appearance: grossly normal <Malgorzata AngelKAYLA hill - Last Filed: 05/07/22 17:45> Mental Status: mental status grossly normal <Malgorzatabhargav AngelKAYLA hill - Last Filed: 05/07/22 17:45> Affect: normal affect <Malgorzatabhargav AngelKAYLA hill - Last Filed: 05/07/22 17:45> Attitude: cooperative <Malgorzata AngelKAYLA hill - Last Filed: 05/07/22 17:45> Thought process: Normal thought process present <KAYLA Ramos - Last Filed: 05/07/22 17:45> Thought content: Normal thought content present <Malgorzata KAYLA Post - Last Filed: 05/07/22 17:45> Insight: Good insight present (Psych) <KAYLA Ramos - Last Filed: 05/07/22 17:45> NIH Stroke Scale Internal: Initial- Upon Arrival <KAYLA Ramos - Last Filed: 05/07/22 17:45> Time: 14:42 <Malgorzata Post PA - Last Filed: 05/07/22 17:45> Level of Consciousness: Alert <Malgorzata Post PA - Last Filed: 05/07/22 17:45> Level of Consciousness Questions: Answers both questions correctly <Malgorzata Post PA - Last Filed: 05/07/22 17:45> Level of Consciousness Commands: Performs both tasks correctly <Malgorzata Post PA - Last Filed: 05/07/22 17:45> Best Gaze: Normal <Malgorzatabhargav Post PA - Last Filed: 05/07/22 17:45> Visual: No visual loss <Malgorzata Post PA - Last Filed: 05/07/22 17:45> Facial Palsy: Normal <Malgorzata Post PA - Last Filed: 05/07/22 17:45> Motor Arm (Right): No drift <Malgorzata Post PA - Last Filed: 05/07/22 17:45> Motor Arm (Left): No drift <Malgorzatabhargav Post PA - Last Filed: 05/07/22 17:45> Motor Leg (Right): No drift <Malgorzata Post PA - Last Filed: 05/07/22 17:45> Motor Leg (Left): No drift <Malgorzata Post PA - Last Filed: 05/07/22 17:45> Limb Ataxia: Absent <Malgorzata Post PA - Last Filed: 05/07/22 17:45> Sensory: Normal <Malgorzata Post PA - Last Filed: 05/07/22 17:45> Best Language: No aphasia <Malgorzata Post PA - Last Filed: 05/07/22 17:45> Dysarthia: Normal <Malgorzata Post PA - Last Filed: 05/07/22 17:45> Extinction and Inattention: No abnormality <Malgorzata Post PA - Last Filed: 05/07/22 17:45> Score: 0 <Malgorzata Post PA - Last Filed: 05/07/22 17:45> 0 <Chichi Sommers PA - Last Filed: 05/07/22 21:09> 0 <Elizabeth Rudd MD - Last Filed: 05/08/22 00:04> Course Course Course Narrative: -2008--on re-evaluation patient reports continued nausea and emesis. Patient is actively vomiting during my evaluation. Abdomen is soft with mild or LQ tenderness which patient reports is chronic, and per prior notes reported similar symptoms. >On review of labs there is noted leukocytosis which appears chronic and likely reactive from nausea/vomiting rather than severe sepsis. Slight anion gap of 21 likely from ketoacidosis/dehydration. Transaminitis appears chronic. Troponin negative. CT head/brain wo con IMPRESSION: 1.? No acute intracranial abnormality. > patient appears to be vomiting bile. CT scan reviewed from March 2020, due to continued symptoms since ED arrival will obtain repeat CT with IV contrast, give additional IVF, Reglan, and Ativan. Plan will be for admission for intractable nausea/vomiting -2108--lipase WNL. CT abdomen/pelvis pending. ED care transferred to [facility] pending CT and admission for intractable nausea/vomiting <KAYLA Alcantara - Last Filed: 05/07/22 21:09> Medical Decision Making MDM Narrative Medical decision making narrative: Patient is a 57 year old female presenting to the emergency department today with dizziness, nausea, and vomiting. Patient's physical exam was unremarkable. Patient's blood work was unremarkable. Patient's urine showed is pending. Patient's EKG was unremarkable. Patient's head CT is pending. I explained my physical exam findings as well as all test results to the patient. I answered all questions asked by the patient. Patient received IV Zofran, fluids, benadryl, and protonix which she stated helped her symptoms significantly. Patient signed out to [facility], pending head CT and PO challenge for discharge. <KAYLA Ramos - Last Filed: 05/07/22 17:45> Patient is a 57 year old female presenting to the emergency department today with dizziness, nausea, and vomiting. Patient's physical exam was unremarkable. Patient's blood work was unremarkable. Patient's urine showed is pending. Patient's EKG was unremarkable. Patient's head CT is pending. I explained my physical exam findings as well as all test results to the patient. I answered all questions asked by the patient. Patient received IV Zofran, fluids, benadryl, and protonix which she stated helped her symptoms significantly. Patient signed out to [facility], pending head CT and PO challenge for discharge. Took over patient's case when notified by nursing at 23:00 patient is still not disposed. Patient's CT scan of the abdomen pelvis wall grossly negative for any acute evidence of obstruction, abscess, perforation. CT scan of the head was grossly negative for any acute evidence of bleeding. Patient's electrolytes however showed an anion gap of 21. Only on Trulicity, metformin, insulin for diabetes. Patient's venous pH was 7.49. No evidence for euglycemic diabetic ketoacidosis. Additional electrolytes was sent. Given additional nausea medication. Patient will be admitted for possible gastroparesis. Case discussed with hospitalist team. Agree with plan. In stable condition. <Elizabeth Rudd MD - Last Filed: 05/08/22 00:04> Differential Diagnosis Differential Diagnosis: BPPV, chronic nausea and vomiting <KAYLA Ramos - Last Filed: 05/07/22 17:45> Medical Records Medical records reviewed: Yes I reviewed the patient's medical records. <KAYLA Ramos - Last Filed: 05/07/22 17:45> Lab Data Lab results reviewed: Yes I reviewed the patient's lab results. <KAYLA Ramos - Last Filed: 05/07/22 17:45> Result diagrams: : 05/07/22 15:13 05/07/22 15:13 <KAYLA Ramos - Last Filed: 05/07/22 17:45> Labs: Lab Results 05/07/22 05/07/22 05/07/22 Range/Units 15:13 15:13 15:13 WBC 16.1 H (4.8-10.8) X10*3/uL RBC 5.60 H (4.20-5.50) X10*6/uL Hgb 13.5 (12.0-16.0) g/dl Hct 43.8 (37.0-47.0) % MCV 78.2 L (80.0-98.0) fL MCH 24.1 L (27.0-33.0) pg MCHC 30.8 L (31.0-35.0) g/dl RDW 16.2 H (11.0-16.0) % Plt Count 341 (160-400) X10*3/uL MPV 10.8 (9.4-12.3) fL Immature Gran % (Auto) 0.6 H (0.0-0.4) % Neut % (Auto) 86.9 H (45-73) % Lymph % (Auto) 8.8 L (20-40) % Broome % (Auto) 3.2 (2-11) % Eos % (Auto) 0.2 (0-4) % Baso % (Auto) 0.3 (0-2) % Lymph # (Auto) 1.4 (1.2-4.9) X10*3/uL Broome # (Auto) 0.5 (0.1-1.2) X10*3/uL Eos # (Auto) 0.0 (0.0-0.4) X10*3/uL Baso # (Auto) 0.1 (0.0-0.2) X10*3/uL Abs Immat Gran (auto) 0.09 H (0.00-0.03) X10*3/uL Absolute Neuts (auto) 14.0 H (2.0-8.3) x10*3/uL Absolute Nucleated RBC 0.000 (0.0-0.012) X10*3/uL Nucleated RBC % (auto) 0.0 (0.0-0.2) /100WBC Cord VBG pH Sodium 143 (135-145) mmol/L Potassium 4.2 (3.3-5.1) mmol/L Chloride 103 (96-108) mmol/L Carbon Dioxide 23 (22-29) mmol/L Anion Gap 21 H (12-20) BUN 17 H (9-16) mg/dL Creatinine 0.87 (0.5-1.4) mg/dL Estim Creat Clear Calc 98.3 Estimated GFR > 60 Random Glucose 221 H (60-115) mg/dL Calcium 10.0 (8.4-10.2) mg/dL Magnesium 1.6 (1.6-2.6) mg/dL Total Bilirubin 0.8 (0.0-1.0) mg/dL AST 40 H (5-31) U/L ALT 50 H (0-31) U/L Alkaline Phosphatase 124 H (39-117) U/L Troponin I High Sens < 3.5 (<3.5-17.0) ng/L Total Protein 8.4 H (6.5-8.0) g/dL Albumin 4.7 (3.5-5.0) g/dL Lipase 79 H (8-78) U/L COVID-19 ([facility]) (Negative) COVID-19 Clin Com 05/07/22 05/07/22 Range/Units 15:21 23:29 WBC (4.8-10.8) X10*3/uL RBC (4.20-5.50) X10*6/uL Hgb (12.0-16.0) g/dl Hct (37.0-47.0) % MCV (80.0-98.0) fL MCH (27.0-33.0) pg MCHC (31.0-35.0) g/dl RDW (11.0-16.0) % Plt Count (160-400) X10*3/uL MPV (9.4-12.3) fL Immature Gran % (Auto) (0.0-0.4) % Neut % (Auto) (45-73) % Lymph % (Auto) (20-40) % Broome % (Auto) (2-11) % Eos % (Auto) (0-4) % Baso % (Auto) (0-2) % Lymph # (Auto) (1.2-4.9) X10*3/uL Broome # (Auto) (0.1-1.2) X10*3/uL Eos # (Auto) (0.0-0.4) X10*3/uL Baso # (Auto) (0.0-0.2) X10*3/uL Abs Immat Gran (auto) (0.00-0.03) X10*3/uL Absolute Neuts (auto) (2.0-8.3) x10*3/uL Absolute Nucleated RBC (0.0-0.012) X10*3/uL Nucleated RBC % (auto) (0.0-0.2) /100WBC Cord VBG pH 7.49 Sodium (135-145) mmol/L Potassium (3.3-5.1) mmol/L Chloride (96-108) mmol/L Carbon Dioxide (22-29) mmol/L Anion Gap (12-20) BUN (9-16) mg/dL Creatinine (0.5-1.4) mg/dL Estim Creat Clear Calc Estimated GFR Random Glucose (60-115) mg/dL Calcium (8.4-10.2) mg/dL Magnesium (1.6-2.6) mg/dL Total Bilirubin (0.0-1.0) mg/dL AST (5-31) U/L ALT (0-31) U/L Alkaline Phosphatase (39-117) U/L Troponin I High Sens (<3.5-17.0) ng/L Total Protein (6.5-8.0) g/dL Albumin (3.5-5.0) g/dL Lipase (8-78) U/L COVID-19 ([facility]) Negative (Negative) COVID-19 Clin Com See Note <KAYLA Ramos - Last Filed: 05/07/22 17:45> Lab Results 05/07/22 05/07/22 05/07/22 Range/Units 15:13 15:13 15:13 WBC 16.1 H (4.8-10.8) X10*3/uL RBC 5.60 H (4.20-5.50) X10*6/uL Hgb 13.5 (12.0-16.0) g/dl Hct 43.8 (37.0-47.0) % MCV 78.2 L (80.0-98.0) fL MCH 24.1 L (27.0-33.0) pg MCHC 30.8 L (31.0-35.0) g/dl RDW 16.2 H (11.0-16.0) % Plt Count 341 (160-400) X10*3/uL MPV 10.8 (9.4-12.3) fL Immature Gran % (Auto) 0.6 H (0.0-0.4) % Neut % (Auto) 86.9 H (45-73) % Lymph % (Auto) 8.8 L (20-40) % [place] % (Auto) 3.2 (2-11) % Eos % (Auto) 0.2 (0-4) % Baso % (Auto) 0.3 (0-2) % Lymph # (Auto) 1.4 (1.2-4.9) X10*3/uL [place] # (Auto) 0.5 (0.1-1.2) X10*3/uL Eos # (Auto) 0.0 (0.0-0.4) X10*3/uL Baso # (Auto) 0.1 (0.0-0.2) X10*3/uL Abs Immat Gran (auto) 0.09 H (0.00-0.03) X10*3/uL Absolute Neuts (auto) 14.0 H (2.0-8.3) x10*3/uL Absolute Nucleated RBC 0.000 (0.0-0.012) X10*3/uL Nucleated RBC % (auto) 0.0 (0.0-0.2) /100WBC Cord VBG pH Sodium 143 (135-145) mmol/L Potassium 4.2 (3.3-5.1) mmol/L Chloride 103 (96-108) mmol/L Carbon Dioxide 23 (22-29) mmol/L Anion Gap 21 H (12-20) BUN 17 H (9-16) mg/dL Creatinine 0.87 (0.5-1.4) mg/dL Estim Creat Clear Calc 98.3 Estimated GFR > 60 Random Glucose 221 H (60-115) mg/dL Calcium 10.0 (8.4-10.2) mg/dL Magnesium 1.6 (1.6-2.6) mg/dL Total Bilirubin 0.8 (0.0-1.0) mg/dL AST 40 H (5-31) U/L ALT 50 H (0-31) U/L Alkaline Phosphatase 124 H (39-117) U/L Troponin I High Sens < 3.5 (<3.5-17.0) ng/L Total Protein 8.4 H (6.5-8.0) g/dL Albumin 4.7 (3.5-5.0) g/dL Lipase 79 H (8-78) U/L COVID-19 ([facility]) (Negative) COVID-19 Clin Com 05/07/22 05/07/22 Range/Units 15:21 23:29 WBC (4.8-10.8) X10*3/uL RBC (4.20-5.50) X10*6/uL Hgb (12.0-16.0) g/dl Hct (37.0-47.0) % MCV (80.0-98.0) fL MCH (27.0-33.0) pg MCHC (31.0-35.0) g/dl RDW (11.0-16.0) % Plt Count (160-400) X10*3/uL MPV (9.4-12.3) fL Immature Gran % (Auto) (0.0-0.4) % Neut % (Auto) (45-73) % Lymph % (Auto) (20-40) % [place] % (Auto) (2-11) % Eos % (Auto) (0-4) % Baso % (Auto) (0-2) % Lymph # (Auto) (1.2-4.9) X10*3/uL [place] # (Auto) (0.1-1.2) X10*3/uL Eos # (Auto) (0.0-0.4) X10*3/uL Baso # (Auto) (0.0-0.2) X10*3/uL Abs Immat Gran (auto) (0.00-0.03) X10*3/uL Absolute Neuts (auto) (2.0-8.3) x10*3/uL Absolute Nucleated RBC (0.0-0.012) X10*3/uL Nucleated RBC % (auto) (0.0-0.2) /100WBC Cord VBG pH 7.49 Sodium (135-145) mmol/L Potassium (3.3-5.1) mmol/L Chloride (96-108) mmol/L Carbon Dioxide (22-29) mmol/L Anion Gap (12-20) BUN (9-16) mg/dL Creatinine (0.5-1.4) mg/dL Estim Creat Clear Calc Estimated GFR Random Glucose (60-115) mg/dL Calcium (8.4-10.2) mg/dL Magnesium (1.6-2.6) mg/dL Total Bilirubin (0.0-1.0) mg/dL AST (5-31) U/L ALT (0-31) U/L Alkaline Phosphatase (39-117) U/L Troponin I High Sens (<3.5-17.0) ng/L Total Protein (6.5-8.0) g/dL Albumin (3.5-5.0) g/dL Lipase (8-78) U/L COVID-19 ([facility]) Negative (Negative) COVID-19 Clin Com See Note <KAYLA Alcantara - Last Filed: 05/07/22 21:09> Lab Results 05/07/22 05/07/22 05/07/22 Range/Units 15:13 15:13 15:13 WBC 16.1 H (4.8-10.8) X10*3/uL RBC 5.60 H (4.20-5.50) X10*6/uL Hgb 13.5 (12.0-16.0) g/dl Hct 43.8 (37.0-47.0) % MCV 78.2 L (80.0-98.0) fL MCH 24.1 L (27.0-33.0) pg MCHC 30.8 L (31.0-35.0) g/dl RDW 16.2 H (11.0-16.0) % Plt Count 341 (160-400) X10*3/uL MPV 10.8 (9.4-12.3) fL Immature Gran % (Auto) 0.6 H (0.0-0.4) % Neut % (Auto) 86.9 H (45-73) % Lymph % (Auto) 8.8 L (20-40) % [place] % (Auto) 3.2 (2-11) % Eos % (Auto) 0.2 (0-4) % Baso % (Auto) 0.3 (0-2) % Lymph # (Auto) 1.4 (1.2-4.9) X10*3/uL [place] # (Auto) 0.5 (0.1-1.2) X10*3/uL Eos # (Auto) 0.0 (0.0-0.4) X10*3/uL Baso # (Auto) 0.1 (0.0-0.2) X10*3/uL Abs Immat Gran (auto) 0.09 H (0.00-0.03) X10*3/uL Absolute Neuts (auto) 14.0 H (2.0-8.3) x10*3/uL Absolute Nucleated RBC 0.000 (0.0-0.012) X10*3/uL Nucleated RBC % (auto) 0.0 (0.0-0.2) /100WBC Cord VBG pH Sodium 143 (135-145) mmol/L Potassium 4.2 (3.3-5.1) mmol/L Chloride 103 (96-108) mmol/L Carbon Dioxide 23 (22-29) mmol/L Anion Gap 21 H (12-20) BUN 17 H (9-16) mg/dL Creatinine 0.87 (0.5-1.4) mg/dL Estim Creat Clear Calc 98.3 Estimated GFR > 60 Random Glucose 221 H (60-115) mg/dL Calcium 10.0 (8.4-10.2) mg/dL Magnesium 1.6 (1.6-2.6) mg/dL Total Bilirubin 0.8 (0.0-1.0) mg/dL AST 40 H (5-31) U/L ALT 50 H (0-31) U/L Alkaline Phosphatase 124 H (39-117) U/L Troponin I High Sens < 3.5 (<3.5-17.0) ng/L Total Protein 8.4 H (6.5-8.0) g/dL Albumin 4.7 (3.5-5.0) g/dL Lipase 79 H (8-78) U/L COVID-19 ([facility]) (Negative) COVID-19 Clin Com 05/07/22 05/07/22 Range/Units 15:21 23:29 WBC (4.8-10.8) X10*3/uL RBC (4.20-5.50) X10*6/uL Hgb (12.0-16.0) g/dl Hct (37.0-47.0) % MCV (80.0-98.0) fL MCH (27.0-33.0) pg MCHC (31.0-35.0) g/dl RDW (11.0-16.0) % Plt Count (160-400) X10*3/uL MPV (9.4-12.3) fL Immature Gran % (Auto) (0.0-0.4) % Neut % (Auto) (45-73) % Lymph % (Auto) (20-40) % [place] % (Auto) (2-11) % Eos % (Auto) (0-4) % Baso % (Auto) (0-2) % Lymph # (Auto) (1.2-4.9) X10*3/uL [place] # (Auto) (0.1-1.2) X10*3/uL Eos # (Auto) (0.0-0.4) X10*3/uL Baso # (Auto) (0.0-0.2) X10*3/uL Abs Immat Gran (auto) (0.00-0.03) X10*3/uL Absolute Neuts (auto) (2.0-8.3) x10*3/uL Absolute Nucleated RBC (0.0-0.012) X10*3/uL Nucleated RBC % (auto) (0.0-0.2) /100WBC Cord VBG pH 7.49 Sodium (135-145) mmol/L Potassium (3.3-5.1) mmol/L Chloride (96-108) mmol/L Carbon Dioxide (22-29) mmol/L Anion Gap (12-20) BUN (9-16) mg/dL Creatinine (0.5-1.4) mg/dL Estim Creat Clear Calc Estimated GFR Random Glucose (60-115) mg/dL Calcium (8.4-10.2) mg/dL Magnesium (1.6-2.6) mg/dL Total Bilirubin (0.0-1.0) mg/dL AST (5-31) U/L ALT (0-31) U/L Alkaline Phosphatase (39-117) U/L Troponin I High Sens (<3.5-17.0) ng/L Total Protein (6.5-8.0) g/dL Albumin (3.5-5.0) g/dL Lipase (8-78) U/L COVID-19 ([facility]) Negative (Negative) COVID-19 Clin Com See Note <Elizabeth Rudd MD - Last Filed: 05/08/22 00:04> ECG Data Attestation: I personally reviewed and interpreted this ECG as follows: <KAYLA Ramos - Last Filed: 05/07/22 17:45> Prior ECG tracings: available for review <KAYLA Ramos - Last Filed: 05/07/22 17:45> Interpretation: Vent. Rate: 096 BPM ? ? Atrial Rate: 096 BPM P-R Int: 138 ms? QRS Dur: 076 ms QT Int: 384 ms ? ? ? P-R-T Axes: 016 013 004 degrees QTc Int: 485 ms ? Normal sinus rhythm Prolonged QT Abnormal ECG When compared with ECG of 06-FEB-2022 08:50, No significant change was found DD/ 1506 <KAYLA Ramos - Last Filed: 05/07/22 17:45> Discharge Plan Discharge Clinical Impression: Intractable nausea and vomiting, Vertigo <KAYLA Ramos - Last Filed: 05/07/22 17:45> Patient Disposition: Still a Patient <KAYLA Ramos - Last Filed: 05/07/22 17:45> Prescriptions: No Action alcohol swabs Pads, Medicated 2 pad topical BID Qty: 100 6RF (DME) lancets [FreeStyle Lancets] 28 gauge misc See Rx Instructions .Route Qty: 100 6RF Rx Instructions: BID pantoprazole [Protonix] 40 mg tablet,delayed release (DR/EC) 40 mg PO DAILY 30 Days Qty: 30 0RF metoprolol tartrate 50 mg tablet 50 mg PO BID 90 Days Qty: 180 1RF furosemide 40 mg tablet 40 mg PO DAILY 30 Days Qty: 30 6RF (DME) lancets [FreeStyle Lancets] 28 gauge misc See Rx Instructions .Route Qty: 100 3RF Rx Instructions: Use 1 lancet once a day metformin 500 mg tablet 500 mg PO BID Qty: 180 2RF (DME) FreeStyle Julianne 2 Sensor Kit See Rx Instructions .Route Qty: 1 2RF Rx Instructions: As directed (DME) diabetic supplies, miscellan. Misc See Rx Instructions .Route Qty: 1 0RF Rx Instructions: As directed (DME) heating pads Pad See Rx Instructions .Route Qty: 1 0RF Rx Instructions: As directed sennosides [senna] 8.6 mg tablet 17.2 mg PO BEDTIME Qty: 60 3RF (DME) Gel mattress overlay Misc See Rx Instructions .Route Qty: 1 0RF Rx Instructions: As directed baclofen 10 mg tablet 10 mg PO TID 30 Days Qty: 90 1RF Hold Instructions: Doctor's Order albuterol sulfate 2.5 mg /3 mL (0.083 %) solution for nebulization 2.5 mg inhalation TID PRN (Reason: shortness of breath or wheezing) 30 Days Qty: 180 1RF levothyroxine 112 mcg tablet 112 mcg PO DAILY Qty: 30 2RF (DME) Toilet seat riser See Rx Instructions .Route .MEDSUPPLY Qty: 1 0RF Rx Instructions: As directed (DME) walker Misc See Rx Instructions .Route Qty: 1 0RF Rx Instructions: As directed (DME) Shower Chair Misc See Rx Instructions .Route Qty: 1 0RF Rx Instructions: As directed acetaminophen [Tylenol Extra Strength] 500 mg tablet 500 mg PO Q6H PRN (Reason: fever or pain) 30 Days Qty: 120 1RF (DME) miscellaneous medical supply Misc See Rx Instructions .ROUTE .MEDSUPPLY Qty: 1 0RF Rx Instructions: toilet seat elevator (DME) blood pressure monitor Kit See Rx Instructions .Route Qty: 1 0RF Rx Instructions: Use as needed amlodipine 10 mg tablet 10 mg PO DAILY Qty: 90 1RF ergocalciferol (vitamin D2) 1,250 mcg (50,000 unit) capsule 1,250 mcg PO QWEEK 90 Days Qty: 13 1RF (DME) pen needle, diabetic [BD Ultra-Fine Mini Pen Needle] 31 gauge x 3/16 needle See Rx Instructions .Route Qty: 100 0RF Rx Instructions: As directed (DME) insulin syringe-needle U-100 [BD Insulin Syringe Ultra-Fine] 0.5 mL 31 gauge x 5/16 syringe See Rx Instructions .Route Qty: 100 3RF Rx Instructions: Use 1 three times a day pyridoxine (vitamin B6) 100 mg tablet 100 mg PO DAILY 90 Days Qty: 90 1RF water for irrigation, sterile Solution 1 irrig irrigation DAILY Qty: 8000 8RF meclizine 25 mg tablet 25 mg PO TID PRN (Reason: dizziness) Qty: 20 0RF Trulicity 0.75 mg/0.5 mL pen injector 0.75 mg subcut QWEEK Qty: 2 2RF sumatriptan succinate 25 mg tablet See Rx Instructions PO .COMPLEX Qty: 14 0RF Rx Instructions: take 1 tab at onset of headache; if no relief may repeat 1 tab after at least 2 hrs; max = 4 tabs/24 hr PO (DME) diabetic shoes and inserts See Rx Instructions .Route .MEDSUPPLY Qty: 1 1RF Rx Instructions: As directed ondansetron 4 mg tablet,disintegrating 4 mg PO Q6-8H PRN (Reason: nausea and vomiting) Qty: 14 0RF cyclobenzaprine 10 mg tablet 10 mg PO Q8H PRN (Reason: Muscle spasm) Qty: 14 0RF Hold Instructions: Doctor's Order fluticasone propionate 50 mcg/actuation spray,suspension 2 spray intranasal DAILY 30 Days Qty: 16 4RF zolpidem 10 mg tablet 10 mg PO BEDTIME (DME) blood pressure test kit-wrist [Blood Pressure Unit-Wrist] Kit See Rx Instructions .ROUTE .MEDSUPPLY Qty: 1 0RF Rx Instructions: to check blood pressure (DME) vaporizers Misc See Rx Instructions .ROUTE .MEDSUPPLY Qty: 1 Rx Instructions: As directed (DME) blood-glucose meter [FreeStyle Lite Meter] Kit See Rx Instructions .Route Qty: 1 0RF Rx Instructions: As directed (DME) FreeStyle Lite Strips Strip See Rx Instructions .Route Qty: 100 3RF Rx Instructions: use 1 test strip once a day lorazepam 0.5 mg tablet 0.5 mg PO DAILY PRN mirtazapine 15 mg tablet 15 mg PO BEDTIME prochlorperazine maleate 10 mg tablet 10 mg PO Q8H PRN ferrous sulfate 325 mg (65 mg iron) tablet 325 mg PO DAILY 90 Days Qty: 90 1RF insulin lispro [Humalog U-100 Insulin] 100 unit/mL solution 5 unit subcut TID 30 Days Qty: 4.5 2RF lidocaine 5 % adhesive patch,medicated 1 patch topical DAILY 30 Days Qty: 30 1RF Rx Instructions: leave on most painful area for up to 12 hrs fluticasone propionate 110 mcg/actuation HFA aerosol inhaler 2 puff inhalation BID 30 Days Qty: 12 5RF albuterol sulfate [Ventolin HFA] 90 mcg/actuation HFA aerosol inhaler 2 puff inhalation Q6H PRN (Reason: shortness of breath or wheezing) 30 Days Qty: 6.7 1RF tizanidine 4 mg tablet 4 mg PO BEDTIME PRN (Reason: muscle spasticity) 7 Days Qty: 7 0RF atorvastatin 10 mg tablet 10 mg PO BEDTIME 90 Days Qty: 90 1RF duloxetine 60 mg capsule,delayed release(DR/EC) 60 mg PO DAILY clonidine HCl 0.1 mg tablet 0.1 mg PO DAILY <KAYLA Ramos - Last Filed: 05/07/22 17:45>
--- NOTE | 2022-05-07 14:45 | ECG_ITS ---
Test Reason : DIZZINESS Blood Pressure : / mmHG Vent. Rate : 096 BPM Atrial Rate : 096 BPM P-R Int : 138 ms QRS Dur : 076 ms QT Int : 384 ms P-R-T Axes : 016 013 004 degrees QTc Int : 485 ms Normal sinus rhythm Prolonged QT Abnormal ECG When compared with ECG of 06-FEB-2022 08:50, No significant change was found Referred By: Malgorzata Post Electronically Signed By:MARISA SCHAFER MD
[2022-05-07] MEDS: 0.9 % Sodium Chloride 1,000 ML 999 ML IV ×2 (15:16→20:32)
[2022-05-07] MEDS: ondansetron HCL 4 MG/2 ML VIAL IVPUSH ×2 (15:18→23:26)
[2022-05-07 15:21] LABS: MANUAL DIFF FLAG NO
[2022-05-07 15:24] LABS: Basophils Absolute Auto 0.1 X10*3/uL (0.0-0.2); Basophils Percent Auto 0.3 % (0-2); Eosinophils Percent Auto 0.2 % (0-4); Hematocrit 43.8 % (37.0-47.0); Hemoglobin 13.5 g/dl (12.0-16.0); Imm Gran Abs Auto 0.09 X10*3/uL (0.00-0.03); Imm Gran Pct Auto 0.6 % (0.0-0.4); Lymphocytes Absolute Auto 1.4 X10*3/uL (1.2-4.9); Lymphocytes Percent Auto 8.8 % (20-40); Mean Corpuscular HGB Conc 30.8 g/dl (31.0-35.0); Mean Corpuscular Hemoglobin 24.1 pg (27.0-33.0); Mean Corpuscular Volume 78.2 fL (80.0-98.0); Mean Platelet Volume 10.8 fL (9.4-12.3); Monocytes Absolute Auto 0.5 X10*3/uL (0.1-1.2); Monocytes Percent Auto 3.2 % (2-11); Neutrophils Percent Auto 86.9 % (45-73); Platelet Count 341 X10*3/uL (160-400); Red Cell Distribution Width 16.2 % (11.0-16.0); White Blood Count 16.1 X10*3/uL (4.8-10.8)
[2022-05-07 15:42] LABS: Alanine Aminotransferase 50 U/L (0-31); Albumin Level 4.7 g/dL (3.5-5.0); Alkaline Phosphatase 124 U/L (39-117); Anion Gap 21 (12-20); Aspartate Amino Transferase 40 U/L (5-31); Bilirubin Total 0.8 mg/dL (0.0-1.0); Blood Urea Nitrogen 17 mg/dL (9-16); Carbon Dioxide 23 mmol/L (22-29); Chloride 103 mmol/L (96-108); Creatinine Clr Calc Pharmacy 98.3; Estimated Glomerular Filt Rate > 60; Glucose Random 221 mg/dL (60-115); Magnesium 1.6 mg/dL (1.6-2.6); Potassium 4.2 mmol/L (3.3-5.1); Sodium 143 mmol/L (135-145); Total Protein 8.4 g/dL (6.5-8.0); Troponin-I High Sensitivity < 3.5 ng/L (<3.5-17.0)
[2022-05-07 15:42] LABS: COVID-19 Test Negative (Negative); IDNOW Serial# 9DB6401D
[2022-05-07] MEDS: Magnesium Hydrox/Alum Hydrox 30 ML ORAL.SUSP PO (17:57)
[2022-05-07] MEDS: Sucralfate 1 GM TABLET PO (17:57)
[2022-05-07] MEDS: Pantoprazole Sodium 40 MG/10 ML VIAL IVPUSH (17:57)
[2022-05-07] MEDS: diphenhydrAMINE HCL 50 MG/ML VIAL IVPUSH (17:58)
[2022-05-07] MEDS: Meclizine HCl 12.5 MG TABLET PO (18:36)
[2022-05-07] MEDS: LORazepam 1 MG TABLET PO (20:31)
[2022-05-07] MEDS: Metoclopramide HCl 10 MG/2 ML VIAL IVPUSH (20:31)
[2022-05-07 20:46] LABS: Lipase 79 U/L (8-78)
[2022-05-07] MEDS: iohexoL 350 MG/ML 100 ML INFUS..BTL IV (21:15)
[2022-05-07 23:22] VITALS: BP 156/79; PULSE 113; RESP 20; TEMP 37.1; O2SAT 97
--- NOTE | 2022-05-07 23:26 | PC.NURSE ---
pt still nauseous, vomiting. diaphoretic. appears very uncomfortable. MD notified. 4mg zofran and 1000mL NS given per MD orders. pt tachycardic, HR 120. labs to be redrawn.
--- NOTE | 2022-05-07 23:58 | PM.IMHP ---
History of Present Illness Date of Service: 05/07/22 Chief Complaint: nausea/vomiting 57-year-old female with a past medical history of hypertension, hyperlipidemia, diabetes, generalized anxiety disorder, degenerative spine disease, depression, history of kidney stones, hypothyroidism, insomnia, fibromyalgia, goiter, asthma, arthritis; presented to the hospital today with a chief complaint of nausea / vomiting. Patient reports that over the past couple days she has been having multiple episodes of nausea and vomiting. Denies any blood in the vomitus. Denies any diarrhea. Mentions that she has poor oral intake. Denies any alcohol or illicit drug use. Denies any chest pain palpitations. Reports intermittent episodes of dizziness. Denies any loss of consciousness or falls or trauma. Review of all other systems is negative except mentioned above ER course: Per ER team patient noted to have benign abdominal examination; CT abdomen showed no acute findings; on labs noted to have elevated anion gap; does not seem to be in DKA. Presumed to be starvation ketosis in the setting of poor oral intake. Patient was given IV fluids and Zofran. Patient failed to tolerate p.o.. Admitted to the hospital for further management. [facility] Medical History Arthropathy of facet joint Asthma Bilateral shoulder pain Chronic pain (Unknown) Chronic pain syndrome Degeneration, intervertebral disc, cervical Diabetes mellitus Disc degeneration, lumbar Fibromyalgia LUDY (generalized anxiety disorder) Goiter Hyperlipidemia LDL goal <70 Hypothyroidism Incontinence Insomnia Left knee pain Lumbar pain Moderately severe recurrent major depression Morbid (severe) obesity due to excess calories Multiple air fluid levels of small intestine determined by X-ray Renal calculi Sleep apnea Spondylosis of cervical spine at multiple levels without myelopathy Spondylosis of cervical spine at multiple levels without myelopathy Spondylosis of lumbar region without myelopathy or radiculopathy Family History Father Past heart attack Anxiety Mother MOF (multiple organ failure) Brother HIV (human immunodeficiency virus infection) Sister Ovarian cancer Lupus Bone cancer Uterine cancer Tumor Daughter Guillain-Sebring Sister Lupus History of open heart surgery Family/Other Depression FH: mental illness Maternal Aunt Breast cancer Maternal Aunt Tumor Surgical History Delivery by section History of cholecystectomy History of esophagogastroduodenoscopy (EGD) History of hernia surgery History of hysterectomy History of knee replacement procedure of right knee Hx of colonoscopy Social History Household Members: None Household Members Other:: Housing: Apartment Are you a primary wound care coordinator to a significant other at home: No Do you presently have 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) Alcohol intake: never Patient Tobacco Use Status: Never used Tobacco e-Cigarette/Vaping Use: Never Used Second Hand Smoke Exposure: Yes Advance Directives Date on File: 12/08/21 service: No Current occupational status: disabled Cognitive needs: No Hearing needs: No Vision needs: No Meds Allergies Allergy/AdvReac Type Severity Reaction Status Date / Time Penicillins Allergy Severe swelling Verified 05/07/22 13:58 adhesive tape [ADHESIVE TAPE] Allergy Intermediate RASH Verified 05/07/22 13:58 amoxicillin [AMOXICILLIN] Allergy Intermediate RASH,SWELLING, Verified 05/07/22 13:58 RASH/SWELLING latex Allergy Intermediate Rash Verified 05/07/22 13:58 Motrin Allergy Intermediate hypertensio Verified 05/07/22 13:58 n Home Medications Medication Instructions Recorded Confirmed Last Taken Type vaporizers #1 ea 10/10/20 04/09/22 Unknown History zolpidem 10 mg tablet 10 mg PO BEDTIME PRN Insomnia 05/08/21 05/08/22 Unknown History clonidine HCl 0.1 mg tablet 0.1 mg PO DAILY 09/19/21 05/08/22 01/25/22 10:00 History duloxetine 60 mg capsule,delayed 60 mg PO DAILY 09/19/21 05/08/22 01/25/22 10:00 History release lorazepam 0.5 mg tablet 0.5 mg PO DAILY PRN Anxiety 04/09/22 05/08/22 Unknown History mirtazapine 15 mg tablet 15 mg PO BEDTIME insomnia 04/09/22 05/08/22 Unknown History prochlorperazine maleate 10 mg 10 mg PO Q8H PRN unknown 04/09/22 05/08/22 Unknown History tablet Physical Exam Vital Signs and Narrative: Vital Signs: Last Vital Signs Temp 98.7 F 05/07/22 23:22 Pulse 113 H 05/07/22 23:22 Resp 20 05/07/22 23:22 BP 156/79 H 05/07/22 23:22 Pulse Ox 97 05/07/22 23:22 O2 Del Method 05/07/22 23:22 BMI result Body Mass Index 42.5 Gen: Appears be in no acute distress HEENT: NCAT, Moist mucosa. Pulmonary: Vesicular breath sounds, fair air entry CVS: Normal S1-S2 Abdomen: BS+, Soft, Nontender Extremities: Warm well perfused Neuro: Alert and awake. Results Labs CBC and Chem 7: 05/08/22 05:58 05/08/22 05:58 Labs: Laboratory Results - last 24 hr 05/07/22 05/07/22 05/07/22 15:13 15:13 15:21 MCV 78.2 L MCH 24.1 L MCHC 30.8 L RDW 16.2 H Plt Count 341 MPV 10.8 Immature Gran % (Auto) 0.6 H Neut % (Auto) 86.9 H Lymph % (Auto) 8.8 L [place] % (Auto) 3.2 Eos % (Auto) 0.2 Baso % (Auto) 0.3 Lymph # (Auto) 1.4 [place] # (Auto) 0.5 Eos # (Auto) 0.0 Baso # (Auto) 0.1 Abs Immat Gran (auto) 0.09 H Absolute Neuts (auto) 14.0 H Absolute Nucleated RBC 0.000 Nucleated RBC % (auto) 0.0 Cord VBG pH Anion Gap 21 H Estim Creat Clear Calc 98.3 Estimated GFR > 60 Random Glucose 221 H Calcium 10.0 Magnesium 1.6 Total Bilirubin 0.8 AST 40 H ALT 50 H Alkaline Phosphatase 124 H Total Protein 8.4 H Albumin 4.7 Lipase 79 H COVID-19 ([facility]) Negative COVID-19 Clin Com See Note 05/07/22 23:29 MCV MCH MCHC RDW Plt Count MPV Immature Gran % (Auto) Neut % (Auto) Lymph % (Auto) [place] % (Auto) Eos % (Auto) Baso % (Auto) Lymph # (Auto) [place] # (Auto) Eos # (Auto) Baso # (Auto) Abs Immat Gran (auto) Absolute Neuts (auto) Absolute Nucleated RBC Nucleated RBC % (auto) Cord VBG pH 7.49 Anion Gap Estim Creat Clear Calc Estimated GFR Random Glucose Calcium Magnesium Total Bilirubin AST ALT Alkaline Phosphatase Total Protein Albumin Lipase COVID-19 ([facility]) COVID-19 Clin Com Imaging Radiologist's Impressions: Impressions Head CT 05/07/22 17:43 IMPRESSION: 1. No acute intracranial abnormality. Abdomen/Pelvis CT 05/07/22 21:30 IMPRESSION: No acute intra-abdominal process seen. Mild hepatic steatosis. 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 Fleischner guidelines were followed. Assessment and Plan (1) Intractable nausea and vomiting: Status: Acute Plan 57-year-old female with a past medical history of hypertension, hyperlipidemia, diabetes, generalized anxiety disorder, degenerative spine disease, depression, history of kidney stones, hypothyroidism, insomnia, fibromyalgia, goiter, asthma, arthritis; presented to the hospital today with a chief complaint of nausea / vomiting. Nausea/ vomiting: CT abdomen showed no acute intra-abdominal process Likely gastroparesis given history longstanding diabetes. will obtain gastric emptying study NPO Advanced diet as tolerated Supportive care Reglan p.r.n. starvation ketosis: Gentle IV fluids. History of hypertension /hyperlipidemia: Continue home Metoprolol, clonidine, statin . Hold home amlodipine for now. History of diabetes: Hold home insulin regimen. Continue insulin sliding scale History of hypothyroidism: Continue home levothyroxine DVT prophylaxis: Lovenox Code status: Full code Quality Stroke Does the patient have a stroke diagnosis?: No VTE Prior VTE?: No VTE Risk Level:: Medical - moderate - high VTE Device Contraindication: Treatment Not Indicated VTE Drug Contraindication: N/A - Med Ordered
[2022-05-08 00:02] LABS: Anion Gap 19 (12-20); Blood Urea Nitrogen 16 mg/dL (9-16); Calcium 9.2 mg/dL (8.4-10.2); Carbon Dioxide 23 mmol/L (22-29); Chloride 106 mmol/L (96-108); Creatinine Clr Calc Pharmacy 111.1; Estimated Glomerular Filt Rate > 60; Glucose Random 202 mg/dL (60-115); Potassium 3.9 mmol/L (3.3-5.1); Sodium 144 mmol/L (135-145)
[2022-05-08 00:06] LABS: Appearance Urine CLEAR; Color Urine YELLOW; Glucose Urine UA NEG (NEG); Leukocyte Esterase Urine NEG (NEG); Nitrite Urine NEG (NEG); PH 6.5 (5.0-8.0); Specific Gravity - Urine <= 1.005 (1.005-1.025); Urine Blood NEG (NEG); Urine Ketones 15 MG/DL (NEG); Urine Protein NEG (NEG-TRACE)
[2022-05-08] MEDS: 0.9 % Sodium Chloride Flush 3 ML SYRINGE IVFLUSH ×3 (00:40→20:54)
[2022-05-08] MEDS: Enoxaparin Sodium 40 MG/0.4 ML SYRINGE SUBCUT ×2 (00:40→23:22)
[2022-05-08] MEDS: ondansetron HCL 4 MG/2 ML VIAL IVPUSH (02:24)
[2022-05-08 04:21] VITALS: BP 122/64; PULSE 64; RESP 16; TEMP 36.6; O2SAT 94
[2022-05-08 06:11] LABS: MANUAL DIFF FLAG NO
[2022-05-08 06:14] LABS: Basophils Percent Auto 0.1 % (0-2); Hemoglobin 12.1 g/dl (12.0-16.0); Imm Gran Abs Auto 0.09 X10*3/uL (0.00-0.03); Imm Gran Pct Auto 0.5 % (0.0-0.4); Lymphocytes Absolute Auto 1.7 X10*3/uL (1.2-4.9); Lymphocytes Percent Auto 9.5 % (20-40); Mean Corpuscular HGB Conc 31.8 g/dl (31.0-35.0); Mean Corpuscular Hemoglobin 25.2 pg (27.0-33.0); Mean Platelet Volume 10.4 fL (9.4-12.3); Monocytes Absolute Auto 0.6 X10*3/uL (0.1-1.2); Monocytes Percent Auto 3.1 % (2-11); Neutrophils Absolute Auto 15.8 x10*3/uL (2.0-8.3); Neutrophils Percent Auto 86.8 % (45-73); Platelet Count 291 X10*3/uL (160-400); Red Blood Count 4.81 X10*6/uL (4.20-5.50); Red Cell Distribution Width 17.9 % (11.0-16.0); White Blood Count 18.3 X10*3/uL (4.8-10.8)
[2022-05-08 06:41] LABS: Anion Gap 17 (12-20); Blood Urea Nitrogen 10 mg/dL (9-16); Calcium 8.9 mg/dL (8.4-10.2); Carbon Dioxide 23 mmol/L (22-29); Chloride 107 mmol/L (96-108); Creatinine Clr Calc Pharmacy 131.7; Estimated Glomerular Filt Rate > 60; Glucose Random 173 mg/dL (60-115); Potassium 3.5 mmol/L (3.3-5.1); Sodium 143 mmol/L (135-145)
[2022-05-08 07:16] LABS: Glucose, Whole Blood 166 mg/dL (60-115)
[2022-05-08] MEDS: Insulin Lispro 100 UNIT/ML 3 ML VIAL SUBCUT (07:34)
--- NOTE | 2022-05-08 07:39 | PHA.MEDREC ---
Pharmacy Consult ? Medication Reconciliation Pharmacy has reviewed the medication reconciliation completed by Mona. Patient is on Flovent per David's note. Patient no longer filling baclofen, furosemide or pantoprazole. Ambien is also prn instead of racheal. Provider updated on changes. Jazmine Polanco, PharmD
[2022-05-08] MEDS: Lidocaine 4 % Patch ADH..PATCH 1 PATCH TRANSDERMA (08:54)
[2022-05-08 08:57] LABS: VBG Base Excess 0.3 mmol/L; VBG HCO3 22 mmol/L (22-26); VBG pCO2 28 mmHg; VBG pH 7.49 (7.32-7.43); VBG pO2 169 mmHg
[2022-05-08 09:19] VITALS: BP 154/82; PULSE 120; RESP 16; O2SAT 89
[2022-05-08 11:09] LABS: Glucose, Whole Blood 160 mg/dL (60-115)
[2022-05-08] MEDS: LORazepam 0.5 MG TABLET PO (11:10)
[2022-05-08] MEDS: Meclizine HCl 25 MG TABLET PO ×2 (11:10→20:52)
[2022-05-08] MEDS: Metoclopramide HCl 10 MG/2 ML VIAL 5 MG IVPUSH ×2 (11:34→20:53)
[2022-05-08] MEDS: Acetaminophen 325 MG TABLET 650 MG PO (12:08)
[2022-05-08 12:09] VITALS: BP 150/58; PULSE 113; RESP 22; TEMP 37.4; O2SAT 95
--- NOTE | 2022-05-08 12:21 | P.PNIM_ITS ---
Subjective Subjective Date of Service: 05/08/22 Interval History: cc: n/v interval history:now sob Cardiovascular Cardiovascular: Reports no additional cardiovascular complaints Respiratory Respiratory: Reports no additional respiratory complaints Physical Exam Vital Signs: Vital Signs: Last Vital Signs Temp 99.4 F 05/08/22 12:09 Pulse 113 H 05/08/22 12:09 Resp 22 H 05/08/22 12:09 BP 150/58 H 05/08/22 12:09 Pulse Ox 95 05/08/22 12:09 O2 Del Method 05/08/22 12:09 O2 Flow Rate 2 05/08/22 12:09 BMI result Body Mass Index 42.5 General: AO X 3, no acute distress Resp: CTA bilateral, no accessory muscles used CVS: S1,S2,RRR GI: soft, non tender, non distended Neuro: motor grossly intact, alert Psych: appropriate affect, appropriate insight Objective Data Active Medications Acetaminophen (Acetaminophen 325 Mg Tablet) 650 mg PO Q6H PRN PRN Reason: Pain, Mild (Pain Scale 1-3) Last Admin: 05/08/22 12:08 Dose: 650 mg Documented By: KIERAN Albuterol Sulfate (Albuterol Sulfate (0.083%) 2.5 Mg/3 Ml Vial.Neb) 2.5 mg INHALE TID PRN PRN Reason: shortness of breath or wheezing Albuterol Sulfate (Albuterol Sulfate 90 Mcg 8 Gm Inhaler) 2 puff INHALE Q6H PRN PRN Reason: shortness of breath or wheezing Atorvastatin Calcium (Atorvastatin Calcium 10 Mg Tablet) 10 mg PO BEDTIME RADHA Clonidine HCl (Clonidine Hcl 0.1 Mg Tablet) 0.1 mg PO DAILY [facility]; Protocol Last Admin: 05/08/22 08:24 Dose: Not Given Documented By: KIERAN Non-Admin Reason: NPO Dextrose (Dextrose 50 % 25 Gm/50 Ml Syringe) 25 gm IVPUSH Q15M PRN; Protocol PRN Reason: per Hypoglycemia Standing Ord. Duloxetine HCl (Duloxetine Hcl 60 Mg Capsule.Dr) 60 mg PO DAILY [facility] Last Admin: 05/08/22 08:24 Dose: Not Given Documented By: KIERAN Non-Admin Reason: NPO Enoxaparin Sodium (Enoxaparin Sodium 40 Mg/0.4 Ml Syringe) 40 mg SUBCUT Q24H [facility] Last Admin: 05/08/22 00:40 Dose: 40 mg Documented By: HERIBERTO Ferrous Sulfate (Ferrous Sulfate 324 Mg Tablet.Dr) 324 mg PO DAILY [facility] Last Admin: 05/08/22 08:24 Dose: Not Given Documented By: KIERAN Non-Admin Reason: NPO Fluticasone Propionate (Fluticasone Propionate 100 Mcg Blst.W.Dev) 2 puff INHALE RBID [facility] Last Admin: 05/08/22 08:27 Dose: Not Given Documented By: ROGER Non-Admin Reason: Med Not Available Glucose (Glucose Gel 15 Gm Gel..Gram.) 15 gm PO Q15M PRN; Protocol PRN Reason: per Hypoglycemia Standing Ord. Insulin Human Lispro (Insulin Lispro 100 Unit/Ml 3 Ml Vial) 0.1 - 10 unit SUBCUT QIDACHS [facility]; Protocol Last Admin: 05/08/22 12:02 Dose: Not Given Documented By: KIERAN Non-Admin Reason: NPO Levothyroxine Sodium (Levothyroxine Sodium 112 Mcg Tablet) 112 mcg PO DAILY@0600 [facility] Last Admin: 05/08/22 08:24 Dose: Not Given Documented By: KIERAN Non-Admin Reason: NPO Lidocaine (Lidocaine 4 % Patch Adh..Patch) 1 patch TRANSDERMA DAILY [facility] Last Admin: 05/08/22 08:54 Dose: 1 patch Documented By: ELVIN Lorazepam (Lorazepam 0.5 Mg Tablet) 0.5 mg PO DAILY PRN PRN Reason: Anxiety Last Admin: 05/08/22 11:10 Dose: 0.5 mg Documented By: KIERAN Meclizine HCl (Meclizine Hcl 25 Mg Tablet) 25 mg PO TID PRN PRN Reason: dizziness Last Admin: 05/08/22 11:10 Dose: 25 mg Documented By: KIERAN Melatonin (Melatonin 3 Mg Tablet) 6 mg PO BEDTIME PRN PRN Reason: Insomnia Metoclopramide HCl (Metoclopramide Hcl 10 Mg/2 Ml Vial) 5 mg IVPUSH Q6H PRN PRN Reason: Nausea and Vomiting Last Admin: 05/08/22 11:34 Dose: 5 mg Documented By: KIERAN Metoprolol Tartrate (Metoprolol Tartrate 50 Mg Tablet) 50 mg PO BID [facility]; Protocol Last Admin: 05/08/22 08:24 Dose: Not Given Documented By: KIERAN Non-Admin Reason: NPO Mirtazapine (Mirtazapine 15 Mg Tablet) 15 mg PO BEDTIME [facility] Omeprazole (Omeprazole 20 Mg Capsule.Dr) 20 mg PO DAILY [facility] Last Admin: 05/08/22 08:24 Dose: Not Given Documented By: KIERAN Non-Admin Reason: NPO Pyridoxine HCl (Pyridoxine Hcl (Vitamin B6) 50 Mg Tablet) 100 mg PO DAILY [facility] Last Admin: 05/08/22 08:25 Dose: Not Given Documented By: KIERAN Non-Admin Reason: NPO Senna (Sennosides 8.6 Mg Tablet) 17.2 mg PO BEDTIME PRN PRN Reason: Constipation Sodium Chloride (0.9 % Sodium Chloride Flush 3 Ml Syringe) 3 ml IVFLUSH QSHIFT [facility] Last Admin: 05/08/22 08:24 Dose: 3 ml Documented By: KIERAN Sumatriptan Succinate (Sumatriptan Succinate 25 Mg Tablet) 25 mg PO DAILY MRX1 PRN PRN Reason: Migraine Headache Tizanidine HCl (Tizanidine Hcl 4 Mg Tablet) 4 mg PO BEDTIME PRN PRN Reason: muscle spasticity Zolpidem Tartrate (Zolpidem Tartrate 5 Mg Tablet) 5 mg PO BEDTIME PRN PRN Reason: insomnia Labs CBC & Chem 7: 05/08/22 05:58 05/08/22 05:58 Labs: Laboratory Results - last 24 hr 05/07/22 05/07/22 05/07/22 15:13 15:13 15:21 MCV 78.2 L MCH 24.1 L MCHC 30.8 L RDW 16.2 H Plt Count 341 MPV 10.8 Immature Gran % (Auto) 0.6 H Neut % (Auto) 86.9 H Lymph % (Auto) 8.8 L Donley % (Auto) 3.2 Eos % (Auto) 0.2 Baso % (Auto) 0.3 Lymph # (Auto) 1.4 Donley # (Auto) 0.5 Eos # (Auto) 0.0 Baso # (Auto) 0.1 Abs Immat Gran (auto) 0.09 H Absolute Neuts (auto) 14.0 H Absolute Nucleated RBC 0.000 Nucleated RBC % (auto) 0.0 VBG pH VBG pCO2 VBG pO2 VBG HCO3 VBG O2 Saturation VBG Base Excess Cord VBG pH Anion Gap 21 H Estim Creat Clear Calc 98.3 Estimated GFR > 60 POC Glucose Random Glucose 221 H Calcium 10.0 Magnesium 1.6 Total Bilirubin 0.8 AST 40 H ALT 50 H Alkaline Phosphatase 124 H Total Protein 8.4 H Albumin 4.7 Lipase 79 H Urine Color Urine Appearance Urine pH Ur Specific Morgan Urine Protein Urine Glucose (UA) Urine Ketones Urine Blood Urine Nitrite Ur Leukocyte Esterase COVID-19 ([facility]) Negative COVID-19 Clin Com See Note 05/07/22 05/07/22 05/07/22 23:25 23:29 23:38 MCV MCH MCHC RDW Plt Count MPV Immature Gran % (Auto) Neut % (Auto) Lymph % (Auto) Donley % (Auto) Eos % (Auto) Baso % (Auto) Lymph # (Auto) Donley # (Auto) Eos # (Auto) Baso # (Auto) Abs Immat Gran (auto) Absolute Neuts (auto) Absolute Nucleated RBC Nucleated RBC % (auto) VBG pH 7.49 H VBG pCO2 28 VBG pO2 169 VBG HCO3 22 VBG O2 Saturation 99.0 VBG Base Excess 0.3 Cord VBG pH TNP Anion Gap 19 Estim Creat Clear Calc 111.1 Estimated GFR > 60 POC Glucose Random Glucose 202 H Calcium 9.2 D Magnesium Total Bilirubin AST ALT Alkaline Phosphatase Total Protein Albumin Lipase Urine Color Urine Appearance Urine pH Ur Specific Morgan Urine Protein Urine Glucose (UA) Urine Ketones Urine Blood Urine Nitrite Ur Leukocyte Esterase COVID-19 ([facility]) COVID-19 Clin Com 05/07/22 05/08/22 05/08/22 23:56 05:58 05:58 MCV 79.0 L MCH 25.2 L MCHC 31.8 RDW 17.9 H Plt Count 291 MPV 10.4 Immature Gran % (Auto) 0.5 H Neut % (Auto) 86.8 H Lymph % (Auto) 9.5 L Donley % (Auto) 3.1 Eos % (Auto) 0.0 Baso % (Auto) 0.1 Lymph # (Auto) 1.7 Donley # (Auto) 0.6 Eos # (Auto) 0.0 Baso # (Auto) 0.0 Abs Immat Gran (auto) 0.09 H Absolute Neuts (auto) 15.8 H Absolute Nucleated RBC 0.000 Nucleated RBC % (auto) 0.0 VBG pH VBG pCO2 VBG pO2 VBG HCO3 VBG O2 Saturation VBG Base Excess Cord VBG pH Anion Gap 17 Estim Creat Clear Calc 131.7 Estimated GFR > 60 POC Glucose Random Glucose 173 H Calcium 8.9 Magnesium Total Bilirubin AST ALT Alkaline Phosphatase Total Protein Albumin Lipase Urine Color YELLOW Urine Appearance CLEAR Urine pH 6.5 Ur Specific Morgan <= 1.005 Urine Protein NEG Urine Glucose (UA) NEG Urine Ketones 15 Urine Blood NEG Urine Nitrite NEG Ur Leukocyte Esterase NEG COVID-19 ([facility]) COVID-19 Clin Com 05/08/22 05/08/22 07:12 11:05 MCV MCH MCHC RDW Plt Count MPV Immature Gran % (Auto) Neut % (Auto) Lymph % (Auto) Donley % (Auto) Eos % (Auto) Baso % (Auto) Lymph # (Auto) Donley # (Auto) Eos # (Auto) Baso # (Auto) Abs Immat Gran (auto) Absolute Neuts (auto) Absolute Nucleated RBC Nucleated RBC % (auto) VBG pH VBG pCO2 VBG pO2 VBG HCO3 VBG O2 Saturation VBG Base Excess Cord VBG pH Anion Gap Estim Creat Clear Calc Estimated GFR POC Glucose 166 H 160 H Random Glucose Calcium Magnesium Total Bilirubin AST ALT Alkaline Phosphatase Total Protein Albumin Lipase Urine Color Urine Appearance Urine pH Ur Specific Morgan Urine Protein Urine Glucose (UA) Urine Ketones Urine Blood Urine Nitrite Ur Leukocyte Esterase COVID-19 ([facility]) COVID-19 Clin Com Assessment and Plan (1) Intractable nausea and vomiting: Status: Acute Plan 56F with pmh of MARY, DM, moderate persistent asthma, depression/anxiety, hypothryoid, morbid obesity, presented with N/V, now with acute hypoxia N/V suspect DM related gastroparesis follow up gastric emptying study reglan acute hypoxic respiratory failure suspect due to aspiration pneumonitis wean o2, monitor MARY cpap at night morbid obesity weight loss DM insulin htn metoprolol, clonidine, amlodipine hypothyroid synthroid hld statin chronic iron defeciency anemia ferrous sulfate dvt prophylaxis - Lovenox full code reason for continued hospitalization: hypoxia, not toelrating po Quality Stroke Does the patient have a stroke diagnosis?: No VTE Prior VTE?: No VTE Risk Level:: Medical - moderate - high VTE Device Contraindication: Treatment Not Indicated VTE Drug Contraindication: N/A - Med Ordered
[2022-05-08 19:01] LABS: Glucose, Whole Blood 125 mg/dL (60-115)
[2022-05-08] MEDS: Fluticasone Propionate 100 MCG BLST.W.DEV 2 PUFF INHALE (19:24)
[2022-05-08] MEDS: Mirtazapine 15 MG TABLET PO (19:29)
[2022-05-08] MEDS: Atorvastatin Calcium 10 MG TABLET PO (19:29)
[2022-05-08] MEDS: Metoprolol Tartrate 50 MG TABLET PO (19:29)
[2022-05-08] MEDS: Cyclobenzaprine HCl 10 MG TABLET PO (20:51)
[2022-05-08] MEDS: Zolpidem Tartrate 5 MG TABLET PO (20:52)
[2022-05-09] VITALS (8 sets, daily range): BP systolic 86–180; BP diastolic 49–85; PULSE 66–100; RESP 16–18; TEMP 36–36.9; O2SAT 90–97
[2022-05-09] MEDS: SUMAtriptan succinate 25 MG TABLET PO (03:32)
[2022-05-09] MEDS: Metoclopramide HCl 10 MG/2 ML VIAL 5 MG IVPUSH ×4 (04:14→17:31)
[2022-05-09] MEDS: Levothyroxine Sodium 112 MCG TABLET PO (05:11)
[2022-05-09] MEDS: Lidocaine 4 % Patch ADH..PATCH 1 PATCH TRANSDERMA ×2 (05:55→14:21)
[2022-05-09 06:56] LABS: B Type Natriuretic Peptide 28 pg/mL (<100)
[2022-05-09] MEDS: Fluticasone Propionate 100 MCG BLST.W.DEV 2 PUFF INHALE ×2 (08:10→19:22)
[2022-05-09 08:19] LABS: Glucose, Whole Blood 142 mg/dL (60-115)
[2022-05-09] MEDS: Ferrous Sulfate 324 MG TABLET.DR PO (08:27)
[2022-05-09] MEDS: Pyridoxine HCl (Vitamin B6) 50 MG TABLET 100 MG PO (08:27)
[2022-05-09] MEDS: amLODIPine Besylate 10 MG TABLET PO (08:27)
[2022-05-09] MEDS: Metoprolol Tartrate 50 MG TABLET PO ×2 (08:27→20:11)
[2022-05-09] MEDS: Omeprazole 20 MG CAPSULE.DR PO (08:27)
[2022-05-09] MEDS: DULoxetine HCl 60 MG CAPSULE.DR PO (08:27)
[2022-05-09] MEDS: cloNIDine HCL 0.1 MG TABLET PO (08:27)
[2022-05-09] MEDS: 0.9 % Sodium Chloride Flush 3 ML SYRINGE IVFLUSH ×2 (08:28→17:32)
--- NOTE | 2022-05-09 09:28 | P.PNIM_ITS ---
Subjective Subjective Date of Service: 05/09/22 Interval History: cc: n/v interval history:ongoing nausea Cardiovascular Cardiovascular: Reports no additional cardiovascular complaints Respiratory Respiratory: Reports no additional respiratory complaints Physical Exam Vital Signs: Vital Signs: Last Vital Signs Temp 98.5 F 05/09/22 08:00 Pulse 98 05/09/22 08:11 Resp 18 05/09/22 08:11 BP 180/85 H 05/09/22 08:00 Pulse Ox 97 05/09/22 08:00 O2 Del Method 05/09/22 08:00 O2 Flow Rate 3 05/09/22 08:00 BMI result Body Mass Index 42.5 General: AO X 3, no acute distress Resp: CTA bilateral, no accessory muscles used CVS: S1,S2,RRR GI: soft, non tender, non distended Neuro: motor grossly intact, alert Psych: appropriate affect, appropriate insight Objective Data Active Medications Acetaminophen (Acetaminophen 325 Mg Tablet) 650 mg PO Q6H PRN PRN Reason: Pain, Mild (Pain Scale 1-3) Last Admin: 05/08/22 12:08 Dose: 650 mg Documented By: KIERAN Albuterol Sulfate (Albuterol Sulfate (0.083%) 2.5 Mg/3 Ml Vial.Neb) 2.5 mg INHALE TID PRN PRN Reason: shortness of breath or wheezing Albuterol Sulfate (Albuterol Sulfate 90 Mcg 8 Gm Inhaler) 2 puff INHALE Q6H PRN PRN Reason: shortness of breath or wheezing Amlodipine Besylate (Amlodipine Besylate 10 Mg Tablet) 10 mg PO DAILY [facility]; Protocol Last Admin: 05/09/22 08:27 Dose: 10 mg Documented By: VERONICA Atorvastatin Calcium (Atorvastatin Calcium 10 Mg Tablet) 10 mg PO BEDTIME RADHA Last Admin: 05/08/22 19:29 Dose: 10 mg Documented By: PURA Clonidine HCl (Clonidine Hcl 0.1 Mg Tablet) 0.1 mg PO DAILY [facility]; Protocol Last Admin: 05/09/22 08:27 Dose: 0.1 mg Documented By: VERONICA Cyclobenzaprine HCl (Cyclobenzaprine Hcl 10 Mg Tablet) 10 mg PO Q8H PRN PRN Reason: Muscle spasm Last Admin: 05/08/22 20:51 Dose: 10 mg Documented By: PURA Dextrose (Dextrose 50 % 25 Gm/50 Ml Syringe) 25 gm IVPUSH Q15M PRN; Protocol PRN Reason: per Hypoglycemia Standing Ord. Duloxetine HCl (Duloxetine Hcl 60 Mg Capsule.) 60 mg PO DAILY [facility] Last Admin: 05/09/22 08:27 Dose: 60 mg Documented By: VERONICA Enoxaparin Sodium (Enoxaparin Sodium 40 Mg/0.4 Ml Syringe) 40 mg SUBCUT Q24H [facility] Last Admin: 05/08/22 23:22 Dose: 40 mg Documented By: PURA Ferrous Sulfate (Ferrous Sulfate 324 Mg Tablet.) 324 mg PO DAILY [facility] Last Admin: 05/09/22 08:27 Dose: 324 mg Documented By: VERONICA Fluticasone Propionate (Fluticasone Propionate 100 Mcg Blst.W.Dev) 2 puff INHALE RBID [facility] Last Admin: 05/09/22 08:10 Dose: 2 puff Documented By: LEIA Glucose (Glucose Gel 15 Gm Gel..Gram.) 15 gm PO Q15M PRN; Protocol PRN Reason: per Hypoglycemia Standing Ord. Insulin Human Lispro (Insulin Lispro 100 Unit/Ml 3 Ml Vial) 0.1 - 10 unit SUBCUT QIDACHS [facility]; Protocol Last Admin: 05/09/22 08:26 Dose: Not Given Documented By: VERONICA Non-Admin Reason: No Insulin Coverage Levothyroxine Sodium (Levothyroxine Sodium 112 Mcg Tablet) 112 mcg PO DAILY@0600 [facility] Last Admin: 05/09/22 05:11 Dose: 112 mcg Documented By: PURA Lidocaine (Lidocaine 4 % Patch Adh..Patch) 1 patch TRANSDERMA DAILY [facility] Last Admin: 05/09/22 05:55 Dose: 1 patch Documented By: PURA Lorazepam (Lorazepam 0.5 Mg Tablet) 0.5 mg PO Q8H PRN PRN Reason: Anxiety Meclizine HCl (Meclizine Hcl 25 Mg Tablet) 25 mg PO TID PRN PRN Reason: dizziness Last Admin: 05/08/22 20:52 Dose: 25 mg Documented By: PURA Melatonin (Melatonin 3 Mg Tablet) 6 mg PO BEDTIME PRN PRN Reason: Insomnia Metoclopramide HCl (Metoclopramide Hcl 10 Mg/2 Ml Vial) 5 mg IVPUSH TIDAC [facility] Last Admin: 05/09/22 08:28 Dose: 5 mg Documented By: VERONICA Metoprolol Tartrate (Metoprolol Tartrate 50 Mg Tablet) 50 mg PO BID [facility]; Protocol Last Admin: 05/09/22 08:27 Dose: 50 mg Documented By: VERONICA Mirtazapine (Mirtazapine 15 Mg Tablet) 15 mg PO BEDTIME [facility] Last Admin: 05/08/22 19:29 Dose: 15 mg Documented By: PURA Omeprazole (Omeprazole 20 Mg Capsule.Dr) 20 mg PO DAILY [facility] Last Admin: 05/09/22 08:27 Dose: 20 mg Documented By: VERONICA Pyridoxine HCl (Pyridoxine Hcl (Vitamin B6) 50 Mg Tablet) 100 mg PO DAILY [facility] Last Admin: 05/09/22 08:27 Dose: 100 mg Documented By: VERONICA Senna (Sennosides 8.6 Mg Tablet) 17.2 mg PO BEDTIME PRN PRN Reason: Constipation Sodium Chloride (0.9 % Sodium Chloride Flush 3 Ml Syringe) 3 ml IVFLUSH QSHIFT [facility] Last Admin: 05/09/22 08:28 Dose: 3 ml Documented By: VERONICA Sumatriptan Succinate (Sumatriptan Succinate 25 Mg Tablet) 25 mg PO DAILY MRX1 PRN PRN Reason: Migraine Headache Last Admin: 05/09/22 03:32 Dose: 25 mg Documented By: PURA Tizanidine HCl (Tizanidine Hcl 4 Mg Tablet) 4 mg PO BEDTIME PRN PRN Reason: muscle spasticity Zolpidem Tartrate (Zolpidem Tartrate 5 Mg Tablet) 5 mg PO BEDTIME PRN PRN Reason: insomnia Last Admin: 05/08/22 20:52 Dose: 5 mg Documented By: PURA Labs CBC & Chem 7: 05/08/22 05:58 05/08/22 05:58 Labs: Laboratory Results - last 24 hr 05/07/22 05/08/22 05/08/22 23:29 11:05 18:43 Cord VBG pH TNP POC Glucose 160 H 125 H B-Natriuretic Peptide 05/09/22 05/09/22 05:56 08:09 Cord VBG pH POC Glucose 142 H B-Natriuretic Peptide 28 Assessment and Plan (1) Intractable nausea and vomiting: Status: Acute Plan 56F with pmh of MARY, DM, moderate persistent asthma, depression/anxiety, hypothryoid, morbid obesity, presented with N/V, now with acute hypoxia N/V gastric emptying study positive for gastroparesis reglan tidac diabetes control small frequent meals acute hypoxic respiratory failure cxr with no significant pneumonitis, may be more related to obesity hypoventilation wean o2, monitor MARY cpap at night morbid obesity weight loss DM insulin htn metoprolol, clonidine, amlodipine hypothyroid synthroid hld statin chronic iron defeciency anemia ferrous sulfate dvt prophylaxis - Lovenox full code reason for continued hospitalization: hypoxia, not tolerating po Quality Stroke Does the patient have a stroke diagnosis?: No VTE Prior VTE?: No VTE Risk Level:: Medical - moderate - high VTE Device Contraindication: Treatment Not Indicated VTE Drug Contraindication: N/A - Med Ordered
[2022-05-09] MEDS: LORazepam 0.5 MG TABLET PO ×2 (11:06→22:55)
[2022-05-09 11:29] LABS: Glucose, Whole Blood 127 mg/dL (60-115)
[2022-05-09] MEDS: Acetaminophen 325 MG TABLET 650 MG PO ×2 (12:11→18:32)
[2022-05-09] MEDS: Cyclobenzaprine HCl 10 MG TABLET PO (14:20)
[2022-05-09] MEDS: Meclizine HCl 25 MG TABLET PO (14:25)
[2022-05-09 17:15] LABS: Glucose, Whole Blood 99 mg/dL (60-115)
[2022-05-09] MEDS: TiZANidine HCL 4 MG TABLET PO (20:10)
[2022-05-09] MEDS: Atorvastatin Calcium 10 MG TABLET PO (20:10)
[2022-05-09] MEDS: Mirtazapine 15 MG TABLET PO (20:11)
[2022-05-09 20:36] LABS: Glucose, Whole Blood 123 mg/dL (60-115)
[2022-05-09] MEDS: Enoxaparin Sodium 40 MG/0.4 ML SYRINGE SUBCUT (22:48)
[2022-05-10] MEDS: 0.9 % Sodium Chloride Flush 3 ML SYRINGE IVFLUSH ×3 (01:09→17:13)
[2022-05-10] MEDS: Levothyroxine Sodium 112 MCG TABLET PO (05:08)
[2022-05-10] MEDS: LORazepam 0.5 MG TABLET PO ×3 (05:14→21:38)
[2022-05-10] MEDS: Meclizine HCl 25 MG TABLET PO ×2 (05:23→20:04)
[2022-05-10] MEDS: Cyclobenzaprine HCl 10 MG TABLET PO ×2 (05:29→20:04)
[2022-05-10] MEDS: Acetaminophen 325 MG TABLET 650 MG PO ×3 (05:30→20:05)
[2022-05-10 06:40] LABS: Anion Gap 12 (12-20); Blood Urea Nitrogen 14 mg/dL (9-16); Calcium 8.5 mg/dL (8.4-10.2); Carbon Dioxide 26 mmol/L (22-29); Chloride 104 mmol/L (96-108); Creatinine Clr Calc Pharmacy 104.3; Estimated Glomerular Filt Rate > 60; Glucose Fasting 182 mg/dL (60-99); Potassium 3.3 mmol/L (3.3-5.1); Sodium 139 mmol/L (135-145)
[2022-05-10 06:45] LABS: Hematocrit 36.2 % (37.0-47.0); Mean Corpuscular HGB Conc 30.4 g/dl (31.0-35.0); Mean Corpuscular Hemoglobin 24.2 pg (27.0-33.0); Mean Corpuscular Volume 79.6 fL (80.0-98.0); Mean Platelet Volume 11.3 fL (9.4-12.3); Platelet Count 261 X10*3/uL (160-400); Red Blood Count 4.55 X10*6/uL (4.20-5.50); Red Cell Distribution Width 16.3 % (11.0-16.0); White Blood Count 11.5 X10*3/uL (4.8-10.8)
[2022-05-10 07:51] VITALS: BP 115/65; PULSE 97; RESP 16
[2022-05-10 07:53] LABS: Glucose, Whole Blood 115 mg/dL (60-115)
[2022-05-10] MEDS: Metoprolol Tartrate 50 MG TABLET PO ×2 (08:29→20:04)
[2022-05-10] MEDS: Pyridoxine HCl (Vitamin B6) 50 MG TABLET 100 MG PO (08:29)
[2022-05-10] MEDS: Lidocaine 4 % Patch ADH..PATCH 1 PATCH TRANSDERMA (08:30)
[2022-05-10] MEDS: amLODIPine Besylate 10 MG TABLET PO (08:30)
[2022-05-10] MEDS: Potassium Chloride ER 20 MEQ TAB.ER.PRT 40 MEQ PO (08:30)
[2022-05-10] MEDS: Omeprazole 20 MG CAPSULE.DR PO (08:30)
[2022-05-10] MEDS: DULoxetine HCl 60 MG CAPSULE.DR PO (08:30)
[2022-05-10] MEDS: Ferrous Sulfate 324 MG TABLET.DR PO (08:30)
[2022-05-10] MEDS: cloNIDine HCL 0.1 MG TABLET PO (08:30)
[2022-05-10] MEDS: Metoclopramide HCl 10 MG/2 ML VIAL 5 MG IVPUSH ×3 (08:31→17:13)
[2022-05-10 08:34] VITALS: PULSE 89; RESP 18; O2SAT 94
[2022-05-10] MEDS: Fluticasone Propionate 100 MCG BLST.W.DEV 2 PUFF INHALE ×2 (08:34→19:33)
--- NOTE | 2022-05-10 09:35 | HO.PM.IMPN ---
Subjective Subjective Date of Service: 05/10/22 Interval History: cc: n/v interval history:diarrhea Cardiovascular Cardiovascular: Reports no additional cardiovascular complaints Respiratory Respiratory: Reports no additional respiratory complaints Physical Exam Vital Signs: Vital Signs: Last Vital Signs Temp 96.8 F 05/09/22 23:09 Pulse 89 05/10/22 08:34 Resp 18 05/10/22 08:34 BP 115/65 05/10/22 07:51 Pulse Ox 92 05/09/22 23:15 O2 Del Method 05/10/22 07:51 O2 Flow Rate 2 05/10/22 07:51 BMI result Body Mass Index 42.5 General: AO X 3, no acute distress Resp: CTA bilateral, no accessory muscles used CVS: S1,S2,RRR GI: soft, non tender, non distended Neuro: motor grossly intact, alert Psych: appropriate affect, appropriate insight Objective Data Active Medications Acetaminophen (Acetaminophen 325 Mg Tablet) 650 mg PO Q6H PRN PRN Reason: Pain, Mild (Pain Scale 1-3) Last Admin: 05/10/22 05:30 Dose: 650 mg Documented By: PURA Albuterol Sulfate (Albuterol Sulfate (0.083%) 2.5 Mg/3 Ml Vial.Neb) 2.5 mg INHALE TID PRN PRN Reason: shortness of breath or wheezing Albuterol Sulfate (Albuterol Sulfate 90 Mcg 8 Gm Inhaler) 2 puff INHALE Q6H PRN PRN Reason: shortness of breath or wheezing Amlodipine Besylate (Amlodipine Besylate 10 Mg Tablet) 10 mg PO DAILY [facility]; Protocol Last Admin: 05/10/22 08:30 Dose: 10 mg Documented By: VERONICA Atorvastatin Calcium (Atorvastatin Calcium 10 Mg Tablet) 10 mg PO BEDTIME RADHA Last Admin: 05/09/22 20:10 Dose: 10 mg Documented By: PURA Clonidine HCl (Clonidine Hcl 0.1 Mg Tablet) 0.1 mg PO DAILY [facility]; Protocol Last Admin: 05/10/22 08:30 Dose: 0.1 mg Documented By: VERONICA Cyclobenzaprine HCl (Cyclobenzaprine Hcl 10 Mg Tablet) 10 mg PO Q8H PRN PRN Reason: Muscle spasm Last Admin: 05/10/22 05:29 Dose: 10 mg Documented By: PURA Dextrose (Dextrose 50 % 25 Gm/50 Ml Syringe) 25 gm IVPUSH Q15M PRN; Protocol PRN Reason: per Hypoglycemia Standing Ord. Duloxetine HCl (Duloxetine Hcl 60 Mg Capsule.) 60 mg PO DAILY [facility] Last Admin: 05/10/22 08:30 Dose: 60 mg Documented By: VERONICA Enoxaparin Sodium (Enoxaparin Sodium 40 Mg/0.4 Ml Syringe) 40 mg SUBCUT Q24H [facility] Last Admin: 05/09/22 22:48 Dose: 40 mg Documented By: PURA Ferrous Sulfate (Ferrous Sulfate 324 Mg Tablet.) 324 mg PO DAILY [facility] Last Admin: 05/10/22 08:30 Dose: 324 mg Documented By: VERONICA Fluticasone Propionate (Fluticasone Propionate 100 Mcg Blst.W.Dev) 2 puff INHALE RBID [facility] Last Admin: 05/10/22 08:34 Dose: 2 puff Documented By: LEIA Glucose (Glucose Gel 15 Gm Gel..Gram.) 15 gm PO Q15M PRN; Protocol PRN Reason: per Hypoglycemia Standing Ord. Insulin Human Lispro (Insulin Lispro 100 Unit/Ml 3 Ml Vial) 0.1 - 10 unit SUBCUT QIDACHS [facility]; Protocol Last Admin: 05/10/22 08:00 Dose: Not Given Documented By: VERONICA Non-Admin Reason: No Insulin Coverage Levothyroxine Sodium (Levothyroxine Sodium 112 Mcg Tablet) 112 mcg PO DAILY@0600 [facility] Last Admin: 05/10/22 05:08 Dose: 112 mcg Documented By: PURA Lidocaine (Lidocaine 4 % Patch Adh..Patch) 1 patch TRANSDERMA DAILY [facility] Last Admin: 05/10/22 08:30 Dose: 1 patch Documented By: VERONICA Lorazepam (Lorazepam 0.5 Mg Tablet) 0.5 mg PO Q8H PRN PRN Reason: Anxiety Last Admin: 05/10/22 05:14 Dose: 0.5 mg Documented By: PURA Meclizine HCl (Meclizine Hcl 25 Mg Tablet) 25 mg PO TID PRN PRN Reason: dizziness Last Admin: 05/10/22 05:23 Dose: 25 mg Documented By: PURA Melatonin (Melatonin 3 Mg Tablet) 6 mg PO BEDTIME PRN PRN Reason: Insomnia Metoclopramide HCl (Metoclopramide Hcl 10 Mg/2 Ml Vial) 5 mg IVPUSH TIDAC [facility] Last Admin: 05/10/22 08:31 Dose: 5 mg Documented By: VERONICA Metoprolol Tartrate (Metoprolol Tartrate 50 Mg Tablet) 50 mg PO BID [facility]; Protocol Last Admin: 05/10/22 08:29 Dose: 50 mg Documented By: VERONICA Mirtazapine (Mirtazapine 15 Mg Tablet) 15 mg PO BEDTIME [facility] Last Admin: 05/09/22 20:11 Dose: 15 mg Documented By: PURA Omeprazole (Omeprazole 20 Mg Capsule.Dr) 20 mg PO DAILY [facility] Last Admin: 05/10/22 08:30 Dose: 20 mg Documented By: VERONICA Pyridoxine HCl (Pyridoxine Hcl (Vitamin B6) 50 Mg Tablet) 100 mg PO DAILY [facility] Last Admin: 05/10/22 08:29 Dose: 100 mg Documented By: VERONICA Senna (Sennosides 8.6 Mg Tablet) 17.2 mg PO BEDTIME PRN PRN Reason: Constipation Sodium Chloride (0.9 % Sodium Chloride Flush 3 Ml Syringe) 3 ml IVFLUSH QSHIFT [facility] Last Admin: 05/10/22 08:31 Dose: 3 ml Documented By: VERONICA Sumatriptan Succinate (Sumatriptan Succinate 25 Mg Tablet) 25 mg PO DAILY MRX1 PRN PRN Reason: Migraine Headache Last Admin: 05/09/22 03:32 Dose: 25 mg Documented By: PURA Tizanidine HCl (Tizanidine Hcl 4 Mg Tablet) 4 mg PO BEDTIME PRN PRN Reason: muscle spasticity Last Admin: 05/09/22 20:10 Dose: 4 mg Documented By: PURA Zolpidem Tartrate (Zolpidem Tartrate 5 Mg Tablet) 5 mg PO BEDTIME PRN PRN Reason: insomnia Last Admin: 05/08/22 20:52 Dose: 5 mg Documented By: PURA Labs CBC & Chem 7: 05/10/22 06:07 05/10/22 06:07 Labs: Laboratory Results - last 24 hr 05/09/22 05/09/22 05/09/22 11:24 16:51 20:26 MCV MCH MCHC RDW Plt Count MPV Absolute Nucleated RBC Nucleated RBC % (auto) Anion Gap Estim Creat Clear Calc Estimated GFR POC Glucose 127 H 99 123 H Fasting Glucose Calcium 05/10/22 05/10/22 05/10/22 06:07 06:07 07:48 MCV 79.6 L MCH 24.2 L MCHC 30.4 L RDW 16.3 H Plt Count 261 MPV 11.3 Absolute Nucleated RBC 0.000 Nucleated RBC % (auto) 0.0 Anion Gap 12 Estim Creat Clear Calc 104.3 Estimated GFR > 60 POC Glucose 115 Fasting Glucose 182 H Calcium 8.5 Assessment and Plan (1) Intractable nausea and vomiting: Status: Acute Plan 56F with pmh of MARY, DM, moderate persistent asthma, depression/anxiety, hypothryoid, morbid obesity, presented with N/V, now with acute hypoxia N/V gastric emptying study positive for gastroparesis reglan tidac diabetes control small frequent meals reporting improved tolerance diarrhea ?due to reglan check cdif, gi panel acute hypoxic respiratory failure cxr with no significant pneumonitis, may be more related to obesity hypoventilation wean o2, monitor MARY cpap at night morbid obesity weight loss DM insulin htn metoprolol, clonidine, amlodipine hypothyroid synthroid hld statin chronic iron defeciency anemia ferrous sulfate dvt prophylaxis - Lovenox full code reason for continued hospitalization: ongoing abdominal pain and diarrhea requiring further work up and symptom control Quality Stroke Does the patient have a stroke diagnosis?: No VTE Prior VTE?: No VTE Risk Level:: Medical - moderate - high VTE Device Contraindication: Treatment Not Indicated VTE Drug Contraindication: N/A - Med Ordered
[2022-05-10 12:11] LABS: Glucose, Whole Blood 96 mg/dL (60-115)
[2022-05-10 13:08] LABS: CDiff Gene PCR NEGATIVE (Negative)
[2022-05-10 14:45] LABS: Adenovirus F 40/41 Not Detected (Not Detect.); Astrovirus Not Detected (Not Detect.); Campylobacter Not Detected (Not Detect.); Cryptosporidium Not Detected (Not Detect.); Cyclospora cayetanensis Not Detected (Not Detect.); E. coli EAEC Not Detected (Not Detect.); E. coli EPEC Not Detected (Not Detect.); E. coli ETEC Not Detected (Not Detect.); E. coli STEC Not Detected (Not Detect.); Entamoeba histolytica Not Detected (Not Detect.); Giardia lamblia Not Detected (Not Detect.); Norovirus GI/GII Not Detected (Not Detect.); Plesiomonas shigelloides Not Detected (Not Detect.); Rotavirus A Not Detected (Not Detect.); Salmonella Not Detected (Not Detect.); Sapovirus Not Detected (Not Detect.); Shigella sp./EIEC Not Detected (Not Detect.); Vibrio Not Detected (Not Detect.); Vibrio Cholerae Not Detected (Not Detect.); Yersinia enterocolitica Not Detected (Not Detect.)
[2022-05-10 15:06] VITALS: BP 104/56; PULSE 78; RESP 16; TEMP 36.3; O2SAT 95
--- NOTE | 2022-05-10 16:02 | MHC.CM.PN ---
PT REPORTS SHE LIVES ALONE AND HAS DAILY [employer] PT REPORTS SHE HAS A TUB BENCH, WALKER, CANE, CPAP, AND TOILET RISER AT HOME HCP ON FILE PT REPORTS SHE IS VACCINATED WITH PFIZER AND HAS RECEIVED TWO BOOSTERS PCP: CARLOS KRISHNAMURTHY CURRENT DC PLAN IS HOME WITH RESUMPTION OF [employer] FAMILY TO TRANSPORT
[2022-05-10] MEDS: HYDROmorphone HCl 0.5 MG/0.5 ML SYRINGE IVPUSH ×2 (16:14→20:35)
[2022-05-10 16:31] LABS: Glucose, Whole Blood 112 mg/dL (60-115)
[2022-05-10 19:51] VITALS: BP 106/59; PULSE 80; RESP 18; TEMP 36.2; O2SAT 94
[2022-05-10] MEDS: Mirtazapine 15 MG TABLET PO (20:04)
[2022-05-10] MEDS: Atorvastatin Calcium 10 MG TABLET PO (20:04)
[2022-05-10 20:18] LABS: Glucose, Whole Blood 122 mg/dL (60-115)
[2022-05-10 23:25] VITALS: BP 106/56; PULSE 78; RESP 17; TEMP 36; O2SAT 91
[2022-05-10] MEDS: Enoxaparin Sodium 40 MG/0.4 ML SYRINGE SUBCUT (23:59)
[2022-05-11] MEDS: 0.9 % Sodium Chloride Flush 3 ML SYRINGE IVFLUSH ×2 (00:01→07:54)
[2022-05-11] MEDS: HYDROmorphone HCl 0.5 MG/0.5 ML SYRINGE IVPUSH ×2 (01:17→06:18)
[2022-05-11 03:19] VITALS: BP 111/62; PULSE 75; RESP 19; TEMP 36.2; O2SAT 93
[2022-05-11] MEDS: Levothyroxine Sodium 112 MCG TABLET PO (05:23)
[2022-05-11 05:49] LABS: Hematocrit 34.5 % (37.0-47.0); Hemoglobin 10.5 g/dl (12.0-16.0); Mean Corpuscular HGB Conc 30.4 g/dl (31.0-35.0); Mean Corpuscular Hemoglobin 24.4 pg (27.0-33.0); Mean Platelet Volume 10.8 fL (9.4-12.3); Platelet Count 219 X10*3/uL (160-400); Red Blood Count 4.31 X10*6/uL (4.20-5.50); White Blood Count 12.1 X10*3/uL (4.8-10.8)
[2022-05-11 06:22] LABS: Anion Gap 14 (12-20); Blood Urea Nitrogen 14 mg/dL (9-16); Calcium 8.4 mg/dL (8.4-10.2); Carbon Dioxide 27 mmol/L (22-29); Chloride 103 mmol/L (96-108); Estimated Glomerular Filt Rate > 60; Glucose Fasting 93 mg/dL (60-99); Potassium 3.7 mmol/L (3.3-5.1); Sodium 140 mmol/L (135-145)
[2022-05-11 07:22] LABS: Glucose, Whole Blood 123 mg/dL (60-115)
[2022-05-11 07:23] VITALS: BP 125/59; PULSE 72; RESP 16; TEMP 35.9; O2SAT 92
[2022-05-11] MEDS: Metoclopramide HCl 10 MG/2 ML VIAL 5 MG IVPUSH (07:52)
[2022-05-11] MEDS: Acetaminophen 325 MG TABLET 650 MG PO (07:53)
[2022-05-11] MEDS: amLODIPine Besylate 10 MG TABLET PO (07:53)
[2022-05-11] MEDS: Pyridoxine HCl (Vitamin B6) 50 MG TABLET 100 MG PO (07:53)
[2022-05-11] MEDS: Meclizine HCl 25 MG TABLET PO (07:53)
[2022-05-11] MEDS: Metoprolol Tartrate 50 MG TABLET PO (07:53)
[2022-05-11] MEDS: DULoxetine HCl 60 MG CAPSULE.DR PO (07:54)
[2022-05-11] MEDS: Cyclobenzaprine HCl 10 MG TABLET PO (07:54)
[2022-05-11] MEDS: Omeprazole 20 MG CAPSULE.DR PO (07:54)
[2022-05-11] MEDS: cloNIDine HCL 0.1 MG TABLET PO (07:54)
[2022-05-11] MEDS: Ferrous Sulfate 324 MG TABLET.DR PO (07:54)
[2022-05-11] MEDS: Fluticasone Propionate 100 MCG BLST.W.DEV 2 PUFF INHALE (08:27)
[2022-05-11 08:30] VITALS: PULSE 77; RESP 18; O2SAT 96
[2022-05-11] MEDS: Lidocaine 4 % Patch ADH..PATCH 1 PATCH TRANSDERMA (09:20)
[2022-05-11] MEDS: Gabapentin 100 MG CAPSULE PO (09:20)
[2022-05-11] MEDS: SUMAtriptan succinate 25 MG TABLET PO (09:24)
--- NOTE | 2022-05-11 09:41 | PM.DS ---
DS: Providers Provider Date of Service: 05/11/22 Date of admission: 05/07/22 23:55 Primary care physician: Jenny Bell MD DS: Diagnosis Discharge Diagnosis (1) Intractable nausea and vomiting: Status: Acute DS: Summary Hospital Course Hospital Course: from initial hpi: Chief Complaint:? nausea/vomiting ?57-year-old female with a past medical history of hypertension, hyperlipidemia, diabetes, generalized anxiety disorder, degenerative spine disease, depression, history of kidney stones, hypothyroidism, insomnia, fibromyalgia, goiter, asthma, arthritis; presented to the hospital today with a chief complaint of nausea / vomiting.? Patient reports that over the past couple days she has been having multiple episodes of nausea and vomiting.? Denies any blood in the vomitus.? Denies any diarrhea.? Mentions that she has poor oral intake.? Denies any alcohol or illicit drug use.? Denies any chest pain palpitations. Reports intermittent episodes of dizziness.? Denies any loss of consciousness or falls or trauma.? Review of all other systems is negative except mentioned above ER course: Per ER team patient noted to have benign abdominal examination; CT abdomen showed no acute findings; on labs noted to have elevated anion gap; does not seem to be in DKA.? Presumed to be starvation ketosis in the setting of poor oral intake.? Patient was given IV fluids and Zofran.? Patient failed to tolerate p.o..? Admitted to the hospital for further management. hospital course: Patient was admitted for intractable nausea vomiting. she underwent gastric emptying study that was positive for gastroparesis related to her diabetes. She was started on Reglan and eventually was able to tolerate solid diet. Will continue Reglan pre meals and have small frequent meals instead of large once. Patient did start having diarrhea once on the Reglan, C diff and GI panel were negative. Course was complicated by hypoxic respiratory failure,probably from poor inspiratory effor t from her abd pain, on discharge no need for home o2. For her obstructive sleep apnea related to morbid obesity she was continue on CPAP at night and weight loss is recommended. For diabetes should continue on insulin, Her diabetes is complicated by diabetic neuropathy and will be started on gabapentin. For hypertension continue metoprolol, clonidine, amlodipine. For hypothyroidism she was continued on Synthroid. For hyperlipidemia she was continued on statin. For chronic iron deficiency anemia she was continued on iron supplement. patient is tolerating diet and feeling better she will be discharged home. Time Spent with Patient Time attestation: Total time spent providing and/or coordinating discharge services: Discharge coordination time: Greater than 30 minutes Quality: Safe Use of Opioids Does Pt have an Active Cancer Diagnosis on the Problem List?: No Quality: Stroke Does the patient have a stroke diagnosis?: No Physical Exam Vital Signs: Vital Signs: Last Vital Signs Temp 96.6 F L 05/11/22 07:23 Pulse 77 05/11/22 08:30 Resp 18 05/11/22 08:30 BP 125/59 L 05/11/22 07:23 Pulse Ox 92 05/11/22 07:23 O2 Del Method 05/11/22 07:23 O2 Flow Rate 2.0 05/11/22 07:23 BMI result Body Mass Index 42.5 General: AO X 3, no acute distress Resp: CTA bilateral, no accessory muscles used CVS: S1,S2,RRR GI: soft, non tender, non distended Neuro: motor grossly intact, alert Psych: appropriate affect, appropriate insight DS: Data Data Completed and Pending Labs on day of discharge: Laboratory Results - last 24 hr 05/10/22 05/10/22 05/10/22 10:11 10:11 11:21 WBC RBC Hgb Hct MCV MCH MCHC RDW Plt Count MPV Absolute Nucleated RBC Nucleated RBC % (auto) Sodium Potassium Chloride Carbon Dioxide Anion Gap BUN Creatinine Estim Creat Clear Calc Estimated GFR POC Glucose 96 Fasting Glucose Calcium Magnesium Stl C. cayetanensis PCR Not Detected Stool Rotavirus A PCR Not Detected Stl Adenov F 40/41 PCR Not Detected Stool Astrovirus (PCR) Not Detected Stool Campylobacter PCR Not Detected Stool Cryptosporidium PCR Not Detected Stl Sh Tox Pr E STEC PCR Not Detected Stool E coli O157 PCR Not applicable Stl Enterotoxigenic E PCR Not Detected Stool EPEC (PCR) Not Detected Stool EAEC (PCR) Not Detected Stl E. histolytica PCR Not Detected Stool Giardia Lamblia PCR Not Detected Stl P. shigelloides PCR Not Detected Stool Salmonella PCR Not Detected Stool Sapovirus (PCR) Not Detected Stl Shigella/EIEC PCR Not Detected St Y.enterocolitica PCR Not Detected Stool Vibrio (PCR) Not Detected Stl Vibrio cholerae PCR Not Detected Stl Norovirus GI/GII PCR Not Detected C. difficile Tox B Gene NEGATIVE 05/10/22 05/10/22 05/11/22 15:13 19:57 05:01 WBC 12.1 H RBC 4.31 Hgb 10.5 L Hct 34.5 L MCV 80.0 MCH 24.4 L MCHC 30.4 L RDW 16.0 Plt Count 219 MPV 10.8 Absolute Nucleated RBC 0.000 Nucleated RBC % (auto) 0.0 Sodium Potassium Chloride Carbon Dioxide Anion Gap BUN Creatinine Estim Creat Clear Calc Estimated GFR POC Glucose 112 122 H Fasting Glucose Calcium Magnesium Stl C. cayetanensis PCR Stool Rotavirus A PCR Stl Adenov F 40/ PCR Stool Astrovirus (PCR) Stool Campylobacter PCR Stool Cryptosporidium PCR Stl Sh Tox Pr E STEC PCR Stool E coli O157 PCR Stl Enterotoxigenic E PCR Stool EPEC (PCR) Stool EAEC (PCR) Stl E. histolytica PCR Stool Giardia Lamblia PCR Stl P. shigelloides PCR Stool Salmonella PCR Stool Sapovirus (PCR) Stl Shigella/EIEC PCR St Y.enterocolitica PCR Stool Vibrio (PCR) Stl Vibrio cholerae PCR Stl Norovirus GI/GII PCR C. difficile Tox B Gene 05/11/22 05/11/22 05:01 07:07 WBC RBC Hgb Hct MCV MCH MCHC RDW Plt Count MPV Absolute Nucleated RBC Nucleated RBC % (auto) Sodium 140 Potassium 3.7 Chloride 103 Carbon Dioxide 27 Anion Gap 14 BUN 14 Creatinine 0.69 Estim Creat Clear Calc 124.0 Estimated GFR > 60 POC Glucose 123 H Fasting Glucose 93 Calcium 8.4 Magnesium 2.0 Stl C. cayetanensis PCR Stool Rotavirus A PCR Stl Adenov F PCR Stool Astrovirus (PCR) Stool Campylobacter PCR Stool Cryptosporidium PCR Stl Sh Tox Pr E STEC PCR Stool E coli O157 PCR Stl Enterotoxigenic E PCR Stool EPEC (PCR) Stool EAEC (PCR) Stl E. histolytica PCR Stool Giardia Lamblia PCR Stl P. shigelloides PCR Stool Salmonella PCR Stool Sapovirus (PCR) Stl Shigella/EIEC PCR St Y.enterocolitica PCR Stool Vibrio (PCR) Stl Vibrio cholerae PCR Stl Norovirus GI/GII PCR C. difficile Tox B Gene Discharge Plan Discharge Patient Disposition: Home, Self-Care Discharge Diagnosis: gastroparesis Referrals: Jenny Mendosa MD [Primary Care Provider] - 1 Week Discharge Medications: New gabapentin 100 mg Capsule 100 mg PO TID Qty: 90 0RF metoclopramide HCl [Reglan] 5 mg tablet 5 mg PO TIDAC Qty: 90 0RF oxycodone 5 mg capsule 5 mg PO TID PRN (Reason: moderate pain (scale score 5-6)) Qty: 14 0RF Rx Instructions: Partial Fill upon patient request. lidocaine 5 % adhesive patch,medicated 1 patch topical DAILY Qty: 30 0RF Rx Instructions: leave on most painful area for up to 12 hrs Continued (DME) lancets [FreeStyle Lancets] 28 gauge misc See Rx Instructions .Route Qty: 100 6RF Rx Instructions: BID metoprolol tartrate 50 mg tablet 50 mg PO BID 90 Days Qty: 180 1RF (DME) lancets [FreeStyle Lancets] 28 gauge misc See Rx Instructions .Route Qty: 100 3RF Rx Instructions: Use 1 lancet once a day metformin 500 mg tablet 500 mg PO BID Qty: 180 2RF (DME) FreeStyle Julianne 2 Sensor Kit See Rx Instructions .Route Qty: 1 2RF Rx Instructions: As directed (DME) diabetic supplies, miscellan. Misc See Rx Instructions .Route Qty: 1 0RF Rx Instructions: As directed (DME) heating pads Pad See Rx Instructions .Route Qty: 1 0RF Rx Instructions: As directed sennosides [senna] 8.6 mg tablet 17.2 mg PO BEDTIME Qty: 60 3RF (DME) Gel mattress overlay Misc See Rx Instructions .Route Qty: 1 0RF Rx Instructions: As directed albuterol sulfate 2.5 mg /3 mL (0.083 %) solution for nebulization 2.5 mg inhalation TID PRN (Reason: shortness of breath or wheezing) 30 Days Qty: 180 1RF levothyroxine 112 mcg tablet 112 mcg PO DAILY Qty: 30 2RF (DME) Toilet seat riser See Rx Instructions .Route .MEDSUPPLY Qty: 1 0RF Rx Instructions: As directed (DME) walker Misc See Rx Instructions .Route Qty: 1 0RF Rx Instructions: As directed acetaminophen [Tylenol Extra Strength] 500 mg tablet 500 mg PO Q6H PRN (Reason: fever or pain) 30 Days Qty: 120 1RF (DME) miscellaneous medical supply [facility] See Rx Instructions .ROUTE .MEDSUPPLY Qty: 1 0RF Rx Instructions: toilet seat elevator (DME) blood pressure monitor Kit See Rx Instructions .Route Qty: 1 0RF Rx Instructions: Use as needed amlodipine 10 mg tablet 10 mg PO DAILY Qty: 90 1RF ergocalciferol (vitamin D2) 1,250 mcg (50,000 unit) capsule 1,250 mcg PO QWEEK 90 Days Qty: 13 1RF (DME) pen needle, diabetic [BD Ultra-Fine Mini Pen Needle] 31 gauge x 3/16 needle See Rx Instructions .Route Qty: 100 0RF Rx Instructions: As directed ([facility]) insulin syringe-needle U-100 [BD Insulin Syringe Ultra-Fine] 0.5 mL 31 gauge x 5/16 syringe See Rx Instructions .Route Qty: 100 3RF Rx Instructions: Use 1 three times a day pyridoxine (vitamin B6) 100 mg tablet 100 mg PO DAILY 90 Days Qty: 90 1RF meclizine 25 mg tablet 25 mg PO TID PRN (Reason: dizziness) Qty: 20 0RF Trulicity 0.75 mg/0.5 mL pen injector 0.75 mg subcut QWEEK Qty: 2 2RF sumatriptan succinate 25 mg tablet See Rx Instructions PO .COMPLEX Qty: 14 0RF Rx Instructions: take 1 tab at onset of headache; if no relief may repeat 1 tab after at least 2 hrs; max = 4 tabs/24 hr PO (DME) diabetic shoes and inserts See Rx Instructions .Route .MEDSUPPLY Qty: 1 1RF Rx Instructions: As directed ondansetron 4 mg tablet,disintegrating 4 mg PO Q6-8H PRN (Reason: nausea and vomiting) Qty: 14 0RF cyclobenzaprine 10 mg tablet 10 mg PO Q8H PRN (Reason: Muscle spasm) Qty: 14 0RF Hold Instructions: Doctor's Order ([facility]) Shower Chair Misc See Rx Instructions .Route Qty: 1 0RF Rx Instructions: As directed zolpidem 10 mg tablet 10 mg PO BEDTIME PRN (Reason: Insomnia) (DME) blood pressure test kit-wrist [Blood Pressure Unit-Wrist] Kit See Rx Instructions .ROUTE .MEDSUPPLY Qty: 1 0RF Rx Instructions: to check blood pressure (DME) vaporizers Misc See Rx Instructions .ROUTE .MEDSUPPLY Qty: 1 Rx Instructions: As directed (DME) blood-glucose meter [FreeStyle Lite Meter] Kit See Rx Instructions .Route Qty: 1 0RF Rx Instructions: As directed (DME) FreeStyle Lite Strips Strip See Rx Instructions .Route Qty: 100 3RF Rx Instructions: use 1 test strip once a day lorazepam 0.5 mg tablet 0.5 mg PO DAILY PRN (Reason: Anxiety) mirtazapine 15 mg tablet 15 mg PO BEDTIME prochlorperazine maleate 10 mg tablet 10 mg PO Q8H PRN (Reason: unknown) ferrous sulfate 325 mg (65 mg iron) tablet 325 mg PO DAILY 90 Days Qty: 90 1RF insulin lispro [Humalog U-100 Insulin] 100 unit/mL solution 5 unit subcut TID 30 Days Qty: 4.5 2RF lidocaine 5 % adhesive patch,medicated 1 patch topical DAILY 30 Days Qty: 30 1RF Rx Instructions: leave on most painful area for up to 12 hrs fluticasone propionate 110 mcg/actuation HFA aerosol inhaler 2 puff inhalation BID 30 Days Qty: 12 5RF albuterol sulfate [Ventolin HFA] 90 mcg/actuation HFA aerosol inhaler 2 puff inhalation Q6H PRN (Reason: shortness of breath or wheezing) 30 Days Qty: 6.7 1RF tizanidine 4 mg tablet 4 mg PO BEDTIME PRN (Reason: muscle spasticity) 7 Days Qty: 7 0RF atorvastatin 10 mg tablet 10 mg PO BEDTIME 90 Days Qty: 90 1RF duloxetine 60 mg capsule,delayed release(DR/EC) 60 mg PO DAILY clonidine HCl 0.1 mg tablet 0.1 mg PO DAILY Discharge Orders: Discharge Order (Routine); Ordered 05/11/22 Ordered By: Lucas Clark Diet: diabetic diet, small meal Activity on Discharge: As tolerated Stand Alone Forms: Patient Portal Discharge page Care Plan Goals: tolerate po Health Concerns: gastroparesis Plan of Treatment: reglan before meals, diabetes control, small meals Assessment: see above
[2022-05-11 10:48] VITALS: PULSE 77; PULSE 96; O2SAT 90; O2SAT 93
--- NOTE | 2022-05-11 11:06 | MHC.CM.PN ---
Patient has been medically cleared for discharge today; discharge is Home (self-care).
[2022-05-11 11:10] LABS: Glucose, Whole Blood 102 mg/dL (60-115)
== END 2022-05-11 11:38 | disposition home or self-care (01) ==
LOC: HO.ED 23:25 → HO.EDOVER 05-08 00:08 → HO.S3 05-08 12:51
PROVIDERS: Physician Assistant; Physician Assistant Medical; Admitting Provider Hospitalist; Emergency Provider Emergency Medicine Emergency Medical Services; PCP Internal Medicine; Visit Provider Internal Medicine
DX: E11.43 Type 2 diabetes mellitus with diabetic autonomic (poly)neuropathy (principal); K31.84 Gastroparesis; R11.2 Nausea with vomiting, unspecified; J96.91 Respiratory failure, unspecified with hypoxia; R42 Dizziness and giddiness; D50.9 Iron deficiency anemia, unspecified; R10.30 Lower abdominal pain, unspecified; D72.829 Elevated white blood cell count, unspecified; Z20.822 Contact with and (suspected) exposure to COVID-19; I10 Essential (primary) hypertension; E11.9 Type 2 diabetes mellitus without complications; E78.5 Hyperlipidemia, unspecified; F41.1 Generalized anxiety disorder; E03.9 Hypothyroidism, unspecified; M47.812 Spondylosis without myelopathy or radiculopathy, cervical region; M47.816 Spondylosis without myelopathy or radiculopathy, lumbar region; E66.01 Morbid (severe) obesity due to excess calories; Z68.41 Body mass index [BMI] 40.0-44.9, adult; Z87.442 Personal history of urinary calculi; Z79.899 Other long term (current) drug therapy; Z79.4 Long term (current) use of insulin; Z79.02 Long term (current) use of antithrombotics/antiplatelets
CPT/HCPCS: 36415; 70450; 71045; 74177; 78264; 80048; 80053; 81003; 82010; 82800; 82803; 82947; 83690; 83735; 83880; 84484; 85025; 85027; 87493; 87507; 87635; 93005; 96361; 96372; 96374; 96375; 96376; 99218; 99285; A9541; J1170; J1200; J1650; J1790; J2405; J2765; Q9967

== ENCOUNTER → 2022-05-12 12:19 | Outpatient (REF) | payer OTHER, SELFPAY ==
--- NOTE | ~2022-05-12 | XR_ITS ---
EXAMINATION: XR THORACOLUMBAR SPINE CLINICAL INFORMATION: Pain. COMPARISON: None TECHNIQUE: 2 views. FINDINGS: There is normal thoracic kyphosis. The vertebral heights, alignment and disc heights are normal. There is mild ventral spondylosis. There is an elevated right hemidiaphragm with likely diaphragmatic pleural calcification. No lytic or sclerotic process seen. XR/XR thoracic spine 2V IMPRESSION: Elevated right hemidiaphragm with decreased right lung volume. There is no visible acute fracture or dislocation dorsal spine except for mild ventral spondylosis. No lytic or sclerotic process.
[2022-05-12 12:56] LABS: MANUAL DIFF FLAG NO
[2022-05-12 13:00] LABS: Basophils Percent Auto 0.3 % (0-2); Eosinophils Absolute Auto 0.3 X10*3/uL (0.0-0.4); Eosinophils Percent Auto 2.2 % (0-4); Hematocrit 36.7 % (37.0-47.0); Hemoglobin 11.1 g/dl (12.0-16.0); Imm Gran Abs Auto 0.13 X10*3/uL (0.00-0.03); Imm Gran Pct Auto 0.9 % (0.0-0.4); Lymphocytes Absolute Auto 2.1 X10*3/uL (1.2-4.9); Lymphocytes Percent Auto 15.3 % (20-40); Mean Corpuscular HGB Conc 30.2 g/dl (31.0-35.0); Mean Corpuscular Volume 79.3 fL (80.0-98.0); Mean Platelet Volume 10.8 fL (9.4-12.3); Monocytes Absolute Auto 0.6 X10*3/uL (0.1-1.2); Monocytes Percent Auto 4.3 % (2-11); Neutrophils Absolute Auto 10.7 x10*3/uL (2.0-8.3); Platelet Count 265 X10*3/uL (160-400); Red Blood Count 4.63 X10*6/uL (4.20-5.50); Red Cell Distribution Width 16.1 % (11.0-16.0); White Blood Count 13.9 X10*3/uL (4.8-10.8)
[2022-05-13 13:44] LABS: Estimated Average Glucose 148 mg/dL; Hemoglobin A1c % 6.8 %
[2022-05-14 07:55] LABS: Rast Allergen SEE COMMENTS
== END ==
LOC: HO.SL 12:19
PROVIDERS: Absent Provider Nurse Practitioner; PCP Internal Medicine; Referring Provider Internal Medicine Pulmonary Disease; Visit Provider Internal Medicine
DX: G47.33 Obstructive sleep apnea (adult) (pediatric) (principal); M54.6 Pain in thoracic spine; J45.40 Moderate persistent asthma, uncomplicated; K31.84 Gastroparesis; E11.9 Type 2 diabetes mellitus without complications; R19.7 Diarrhea, unspecified; E03.9 Hypothyroidism, unspecified
CPT/HCPCS: 36415; 72070; 82785; 83036; 85025; 86003; 95806; 99212

== ENCOUNTER 2022-05-20 14:23 | Outpatient (REF) | payer OTHER, SELFPAY ==
--- NOTE | 2022-05-20 15:58 | PFT_ITS ---
FLOWS: FEV1 56% of predicted at 1.66 L. FVC 50% of predicted at 1.85 L. FEV1 to FVC ratio of 0.90. No bronchodilator response. LUNG VOLUMES: Total lung capacity 60% of predicted at 3.31 L. Residual volume 60% of predicted at 1.24 L. Slow vital capacity 60% of predicted at 2.07 L. Expiratory reserve volume 2% of predicted at 0.02 L. Diffusion capacity is mildly decreased, diffusion capacity corrects to normal after adjustment for alveolar ventilation. IMPRESSION: Moderate restrictive ventilatory defect with no bronchodilator response. Decreased expiratory reserve volume suggests extrathoracic restriction likely secondary to abdominal obesity. Kyle Hernandez MD AP/MODL / [id number]
== END 2022-05-20 14:24 | disposition home or self-care (01) ==
LOC: HO.RESP 14:23
PROVIDERS: PCP Internal Medicine; Visit Provider Internal Medicine Pulmonary Disease
DX: J45.40 Moderate persistent asthma, uncomplicated (principal)
CPT/HCPCS: 94060; 94727; 94729

== ENCOUNTER → 2022-05-29 13:07 | Outpatient (BNVA) | payer OTHER, SELFPAY | PROVIDERS: PCP Internal Medicine; Visit Provider Internal Medicine Pulmonary Disease | DX: J45.40 Moderate persistent asthma, uncomplicated (principal); R91.8 Other nonspecific abnormal finding of lung field; G47.34 Idiopathic sleep related nonobstructive alveolar hypoventilation; R06.01 Orthopnea; J40 Bronchitis, not specified as acute or chronic; Z79.899 Other long term (current) drug therapy | CPT/HCPCS: 99212 ==

== ENCOUNTER 2022-06-02 17:12 | Emergency (ER) | payer OTHER, SELFPAY ==
--- NOTE | ~2022-06-02 | CT_ITS ---
EXAMINATION: CT ABDOMEN AND PELVIS WITHOUT CONTRAST CLINICAL INFORMATION: Pain COMPARISON: Previous CT 05/07/2022 TECHNIQUE: Multidetector volumetric imaging was performed from the superior aspect of the liver through the pubic symphysis. Sagittal and coronal reformatted images were obtained on the technologist's workstation. This CT examination was performed using dose optimization techniques as appropriate, variously including the following: *Automated exposure control *Adjustment of mA and/or kV according to patient size (this includes techniques or standardized protocols for targeted exams where dose is matched to indication/reason for exam; i.e. extremities or head) *Use of iterative reconstruction technique DLP: 1090 mGy-cm FINDINGS: LUNG BASES: There is elevation of the right hemidiaphragm. There is subsegmental atelectasis at the right lung base. LIVER, GALLBLADDER, AND BILIARY TREE: The liver is enlarged. The liver is low in attenuation suggestive of fatty infiltration. Gallbladder is been removed. No focal liver lesion or biliary duct dilatation. PANCREAS: Unremarkable. SPLEEN: Unremarkable. ADRENAL GLANDS: Unremarkable. KIDNEYS AND URETERS: The kidneys are normal in size, shape, and attenuation. No hydronephrosis, hydroureter, or calculi seen. No perinephric stranding. BLADDER: Unremarkable. GASTROINTESTINAL TRACT: The small and large bowel are unremarkable. The appendix is unremarkable. ABDOMINAL WALL: No significant hernia is appreciated. LYMPH NODES: Normal. VASCULAR: Unremarkable. PELVIC VISCERA: Unremarkable. OSSEOUS STRUCTURES: There are degenerative changes of the spine. CT/CT abdomen pelvis wo IV con IMPRESSION: No acute findings. Enlarged fatty liver. Fleischner guidelines were followed.
--- NOTE | ~2022-06-02 | XR_ITS ---
EXAMINATION: XR CHEST CLINICAL INFORMATION: Chest pain COMPARISON: Chest x-ray 05/08/2022 TECHNIQUE: Frontal view of the chest was obtained. 5:41 PM FINDINGS: Asymmetric elevation of right diaphragm above the left. Linear atelectasis at the right lung base. Lungs are otherwise normally aerated. There is no pulmonary vascular congestion. There is no pleural effusion and no pneumothorax. XR/XR chest 1V IMPRESSION: No acute abnormality of the chest.
[2022-06-02 17:25] VITALS: BP 141/75; PULSE 111; RESP 18; TEMP 36.9; O2SAT 96; BMI 41.0
--- NOTE | 2022-06-02 17:27 | ECG_ITS ---
Test Reason : CP Blood Pressure : / mmHG Vent. Rate : 101 BPM Atrial Rate : 101 BPM P-R Int : 132 ms QRS Dur : 080 ms QT Int : 350 ms P-R-T Axes : 020 001 010 degrees QTc Int : 453 ms Sinus tachycardia Minimal voltage criteria for LVH, may be normal variant ( [place] product ) Borderline ECG When compared with ECG of 07-MAY-2022 15:06, QT has shortened Heart rate has increased Referred By: Generic ED Physician Electronically Signed By:CARLOS ARCEO
[2022-06-02 17:37] LABS: MANUAL DIFF FLAG NO
[2022-06-02 17:38] LABS: Basophils Absolute Auto 0.1 X10*3/uL (0.0-0.2); Basophils Percent Auto 0.4 % (0-2); Eosinophils Absolute Auto 0.4 X10*3/uL (0.0-0.4); Hematocrit 42.9 % (37.0-47.0); Hemoglobin 13.4 g/dl (12.0-16.0); Imm Gran Abs Auto 0.35 X10*3/uL (0.00-0.03); Imm Gran Pct Auto 1.6 % (0.0-0.4); Lymphocytes Absolute Auto 3.7 X10*3/uL (1.2-4.9); Mean Corpuscular HGB Conc 31.2 g/dl (31.0-35.0); Mean Corpuscular Hemoglobin 23.9 pg (27.0-33.0); Mean Corpuscular Volume 76.5 fL (80.0-98.0); Mean Platelet Volume 10.3 fL (9.4-12.3); Monocytes Percent Auto 4.7 % (2-11); Neutrophils Absolute Auto 15.9 x10*3/uL (2.0-8.3); Neutrophils Percent Auto 74.3 % (45-73); Platelet Count 410 X10*3/uL (160-400); Red Blood Count 5.61 X10*6/uL (4.20-5.50); Red Cell Distribution Width 17.4 % (11.0-16.0); White Blood Count 21.5 X10*3/uL (4.8-10.8)
[2022-06-02 17:58] LABS: Troponin-I High Sensitivity < 3.5 ng/L (<3.5-17.0)
[2022-06-02 18:26] VITALS: BP 120/76; PULSE 109; RESP 17; O2SAT 98
[2022-06-02 18:36] LABS: Anion Gap 21 (12-20); Blood Urea Nitrogen 18 mg/dL (9-16); Calcium 9.8 mg/dL (8.4-10.2); Carbon Dioxide 25 mmol/L (22-29); Chloride 98 mmol/L (96-108); Creatinine Clr Calc Pharmacy 80.5; Estimated Glomerular Filt Rate 55; Glucose Random 147 mg/dL (60-115); Potassium 3.8 mmol/L (3.3-5.1); Sodium 140 mmol/L (135-145)
--- NOTE | 2022-06-02 18:55 | ED_ITS ---
HPI - General Adult General Chief complaint: General Medical Stated complaint: chest pain/SOB/R side abd pain Time Seen by Provider: 06/02/22 18:31 Source: patient Mode of arrival: ambulatory Limitations: no limitations History of Present Illness HPI narrative: Patient comes to the emergency room complaining of headache, body aches, right upper and left upper abdominal pain, complaining of nausea, no vomiting or diarrhea. Occasional dysuria. No fever or chills. Patient states all her symptoms have been ongoing for about 2-3 days. Related Data Home Medications Medication Instructions Recorded Confirmed vaporizers #1 ea 10/10/20 04/09/22 zolpidem 10 mg tablet 10 mg PO BEDTIME PRN Insomnia 05/08/21 05/08/22 clonidine HCl 0.1 mg tablet 0.1 mg PO DAILY 09/19/21 05/08/22 duloxetine 60 mg capsule,delayed 60 mg PO DAILY 09/19/21 05/08/22 release lorazepam 0.5 mg tablet 0.5 mg PO DAILY PRN Anxiety 04/09/22 05/08/22 mirtazapine 15 mg tablet 15 mg PO BEDTIME insomnia 04/09/22 05/08/22 prochlorperazine maleate 10 mg 10 mg PO Q8H PRN unknown 04/09/22 05/08/22 tablet Previous Rx's Medication Instructions Recorded blood pressure test kit-wrist #1 ea 09/13/20 (Blood Pressure Unit-Wrist kit) lancets 28 gauge (FreeStyle #100 ea 05/23/21 Lancets) blood-glucose meter (FreeStyle #1 ea 09/16/21 Lite Meter kit) metoprolol tartrate 50 mg tablet 50 mg PO BID 3 months #180 tabs 10/08/21 lancets 28 gauge (FreeStyle #100 ea 11/12/21 Lancets) metformin 500 mg tablet 500 mg PO BID #180 tabs 11/15/21 diabetic supplies, [employer]. #1 ea 12/03/21 flash glucose sensor (FreeStyle #1 ea 12/03/21 Julianne 2 Sensor kit) heating pads #1 ea 01/21/22 sennosides 8.6 mg tablet (senna) 17.2 mg PO BEDTIME #60 tabs 01/26/22 Gel mattress overlay #1 ea 04/27/22 cyclobenzaprine 10 mg tablet 10 mg PO Q8H PRN Muscle spasm #14 02/06/22 tabs albuterol sulfate 2.5 mg/3 mL 2.5 mg (3 mL) inhalation TID PRN 02/10/22 (0.083 %) solution for nebulization shortness of breath or wheezing 1 month #180 mL levothyroxine 112 mcg tablet 112 mcg PO DAILY #30 tabs 02/16/22 Toilet seat riser #1 ea 03/05/22 walker #1 ea 03/05/22 acetaminophen 500 mg tablet 500 mg PO Q6H PRN fever or pain 30 03/10/22 (Tylenol Extra Strength) days #120 tabs blood pressure monitor #1 ea 03/10/22 miscellaneous medical supply #1 ea 03/10/22 amlodipine 10 mg tablet 10 mg PO DAILY #90 tabs 03/12/22 atorvastatin 10 mg tablet 10 mg PO BEDTIME 90 days #90 tabs 03/16/22 tizanidine 4 mg tablet 4 mg PO BEDTIME PRN muscle 03/16/22 spasticity 7 days #7 tabs ergocalciferol (vitamin D2) 1,250 1,250 mcg PO QWEEK 90 days #13 caps 04/08/22 mcg (50,000 unit) capsule albuterol sulfate 90 mcg/actuation 2 puff inhalation Q6H PRN 04/09/22 aerosol inhaler (Ventolin HFA) shortness of breath or wheezing 30 days #6.7 grams ferrous sulfate 325 mg (65 mg 325 mg PO DAILY 90 days #90 tabs 04/09/22 iron) tablet insulin lispro 100 unit/mL 5 unit (0.05 mL) subcut TID 30 04/09/22 subcutaneous solution (Humalog days #4.5 mL U-100 Insulin) pen needle, diabetic 31 gauge x #100 ea 04/10/22 3/16 (BD Ultra-Fine Mini Pen Needle) insulin syringe-needle U-100 0.5 #100 ea 04/13/22 mL 31 gauge x 5/16 (BD Insulin Syringe Ultra-Fine) pyridoxine (vitamin B6) 100 mg 100 mg PO DAILY 90 days #90 tabs 04/20/22 tablet dulaglutide 0.75 mg/0.5 mL 0.75 mg (0.5 mL) subcut QWEEK #2 mL 04/30/22 subcutaneous pen injector (Trulicity) sumatriptan succinate 25 mg tablet See Rx Instructions PO .COMPLEX 05/05/22 #14 tabs diabetic shoes and inserts #1 ea 05/06/22 ondansetron 4 mg disintegrating 4 mg PO Q6-8H PRN nausea and 05/07/22 tablet vomiting #14 tabs Shower Chair #1 ea 05/11/22 gabapentin 100 mg capsule 100 mg PO TID #90 caps 05/11/22 lidocaine 5 % topical patch 1 patch topical DAILY #30 ea 05/11/22 oxycodone 5 mg capsule 5 mg PO TID PRN moderate pain 05/11/22 (scale score 5-6) #14 caps [id number]-rlopjaqq-qksunxi 1 cap PO QID 30 days #120 caps 05/12/22 24,000-76,000-120,000 unit capsule,delayed rel (Creon) metoclopramide HCl 5 mg tablet 5 mg PO TIDAC #90 tabs 05/12/22 (Reglan) pantoprazole 40 mg tablet,delayed 40 mg PO DAILY 30 days #30 tabs 05/12/22 release (Protonix) guaifenesin 600 mg tablet, 600 mg PO Q12H PRN congestion 5 05/25/22 extended release 12 hr (Mucinex) days #10 tabs prednisone 10 mg tablet 10 mg PO DAILY PRN wheezing 6 days 05/25/22 #12 tabs prednisone 10 mg tablet 40 mg PO DAILY 5 days #20 tabs 05/26/22 benzonatate 100 mg capsule 100 mg PO TID PRN cough 7 days #21 05/27/22 caps meclizine 25 mg tablet 25 mg PO TID PRN dizziness 30 days 05/27/22 #90 tabs azithromycin 250 mg tablet See Rx Instructions PO .COMPLEX 5 05/29/22 days #6 tabs fluticasone propionate 230 2 puff inhalation Q12H 30 days #1 05/29/22 mcg-salmeterol 21 mcg/actuation ea HFA inhaler (Advair HFA) furosemide 40 mg tablet 60 mg PO QAM 30 days #45 tabs 05/29/22 blood sugar diagnostic (FreeStyle #100 ea 06/01/22 Lite Strips) Allergies Allergy/AdvReac Type Severity Reaction Status Date / Time Penicillins Allergy Severe swelling Verified 05/12/22 11:15 adhesive tape [ADHESIVE TAPE] Allergy Intermediate RASH Verified 05/12/22 11:15 amoxicillin [AMOXICILLIN] Allergy Intermediate RASH,SWELLING, Verified 05/12/22 11:15 RASH/SWELLING latex Allergy Intermediate Rash Verified 05/12/22 11:15 Motrin Allergy Intermediate hypertensio Verified 05/12/22 11:15 n Review of Systems Review of Systems: Constitutional : No Weight loss, No Fever, No Chills, No Night Sweats, complaining fatigue ENT/Mouth : No Hearing loss, No Ear Pain, No Nasal Congestion, No Sinus Pain, No Hoarseness, No sore throat, No Rhinorrhea, No Swallowing Difficulty Eyes: No Eye Pain, No Swelling, No Redness, No Foreign Body, No Discharge, No Vision Changes Cardiovascular : No Chest Pain, No SOB, No Dyspnea on Exertion, No Orthopnea, No Edema, No Palpitations Respiratory : No Cough, No Sputum, No Wheezing, No Smoke Exposure, No Dyspnea Gastrointestinal : No Nausea, No Vomiting, No Diarrhea, No Constipation, complaining of bilateral upper quadrant pain Genitourinary : no irregular bleeding, No Dysuria, No Urinary Frequency, No Hematuria, No Urinary Incontinence, No Urgency, No Flank Pain, No Urinary Flow Changes, No Hesitancy Musculoskeletal : No joint pain, No Myalgias, No Joint Swelling Skin : No Skin Lesions, No rash Neuro : No Weakness, No Numbness, No Paresthesias, No Loss of Consciousness, No Dizziness, complaining of Headache Psych : No Anxiety/Panic, No Depression, No SI/HI/AH/VH, No Social Issues, Heme/Lymph: No Bruising, No Bleeding,No Lymphadenopathy Endocrine : No Polyuria, No Polydipsia, No Temperature Intolerance [facility] Past Medical History Medical History Arthropathy of facet joint Asthma Bilateral shoulder pain Chronic idiopathic constipation Chronic pain (Unknown) Chronic pain syndrome Degeneration, intervertebral disc, cervical Diabetes mellitus Disc degeneration, lumbar Fibromyalgia LUDY (generalized anxiety disorder) Goiter Hyperlipidemia LDL goal <70 Hypothyroidism Incontinence Insomnia Left knee pain Lumbar pain Moderately severe recurrent major depression Morbid (severe) obesity due to excess calories Multiple air fluid levels of small intestine determined by X-ray Renal calculi Sleep apnea Small bowel motility disorder Spondylosis of cervical spine at multiple levels without myelopathy Spondylosis of cervical spine at multiple levels without myelopathy Spondylosis of lumbar region without myelopathy or radiculopathy Surgical History Delivery by section History of cholecystectomy History of esophagogastroduodenoscopy (EGD) History of hernia surgery History of hysterectomy History of knee replacement procedure of right knee Hx of colonoscopy Family History Family History Father Past heart attack Anxiety Mother MOF (multiple organ failure) Brother HIV (human immunodeficiency virus infection) Sister Ovarian cancer Lupus Bone cancer Uterine cancer Tumor Daughter Guillain-Alden Sister Lupus History of open heart surgery Family/Other Depression FH: mental illness Maternal Aunt Breast cancer Maternal Aunt Tumor Social History Social History Household Members: None Household Members Other:: Housing: Apartment Are you a primary personal care service provider to a significant other at home: No Do you presently have visiting nurse or other home services: Yes (team member) Alcohol intake: never Patient Tobacco Use Status: Never used Tobacco e-Cigarette/Vaping Use: Never Used Second Hand Smoke Exposure: Yes Advance Directives: No Advance Directives Information Provided: No Advance Directives Date on File: 12/08/21 Patient : No service: No Current occupational status: unemployed and disabled Cognitive needs: No Hearing needs: No Vision needs: No Physical Exam ED Vital Signs: Vital Signs - 24 hr 06/02/22 17:25 06/02/22 18:26 06/02/22 20:30 Temperature 98.5 F Pulse Rate 111 H 109 H 85 Respiratory Rate 18 17 17 Blood Pressure 141/75 H 120/76 126/70 Pulse Oximetry 96 98 97 Oxygen Delivery Method Room Air Room Air Room Air BMI result Body Mass Index 41.0 Const Other: Appearance: Alert. Oriented X3. No acute distress. Eyes: Pupils equal, round and reactive to light. ENT: Pharynx normal. Neck: Normal inspection. Neck supple. No lymph nodes noted. No crepitus CVS: Normal heart rate and rhythm. Pulses normal. Normal S1 and S2 Respiratory: No respiratory distress. Breath sounds normal. No Wheezing. No rales Abdomen: Soft and nontender. No rigidity. No distention. Skin: Skin warm and dry. Normal skin color. Normal skin turgor. Extremities: No lower extremity edema. No Lacerations. No Rash Neuro: Oriented X 3. No motor deficit. No sensory deficit. Moving all extremities. No slurred speech. CN 2 through 12 grossly intact Psych: calm, cooperative, normal affect Course Course Course Narrative: Patient received 1 dose of IM morphine for both abdominal pain and headache. Overall patient seems to be feeling a bit better. The CT scan and the urinal ysis are still pending. Sign-out given to Dr. Smyth Medical Decision Making Lab Data Result diagrams: 06/02/22 17:31 06/02/22 17:31 Labs: Lab Results 06/02/22 06/02/22 06/02/22 Range/Units 17:31 17:31 17:31 WBC 21.5 H (4.8-10.8) X10*3/uL RBC 5.61 H D (4.20-5.50) X10*6/uL Hgb 13.4 D (12.0-16.0) g/dl Hct 42.9 (37.0-47.0) % MCV 76.5 L (80.0-98.0) fL MCH 23.9 L (27.0-33.0) pg MCHC 31.2 (31.0-35.0) g/dl RDW 17.4 H (11.0-16.0) % Plt Count 410 H D (160-400) X10*3/uL MPV 10.3 (9.4-12.3) fL Immature Gran % (Auto) 1.6 H (0.0-0.4) % Neut % (Auto) 74.3 H (45-73) % Lymph % (Auto) 17.0 L (20-40) % Mitchell % (Auto) 4.7 (2-11) % Eos % (Auto) 2.0 (0-4) % Baso % (Auto) 0.4 (0-2) % Lymph # (Auto) 3.7 (1.2-4.9) X10*3/uL Mitchell # (Auto) 1.0 (0.1-1.2) X10*3/uL Eos # (Auto) 0.4 (0.0-0.4) X10*3/uL Baso # (Auto) 0.1 (0.0-0.2) X10*3/uL Abs Immat Gran (auto) 0.35 H (0.00-0.03) X10*3/uL Absolute Neuts (auto) 15.9 H (2.0-8.3) x10*3/uL Absolute Nucleated RBC 0.000 (0.0-0.012) X10*3/uL Nucleated RBC % (auto) 0.0 (0.0-0.2) /100WBC Sodium 140 (135-145) mmol/L Potassium 3.8 (3.3-5.1) mmol/L Chloride 98 (96-108) mmol/L Carbon Dioxide 25 (22-29) mmol/L Anion Gap 21 H (12-20) BUN 18 H (9-16) mg/dL Creatinine 1.04 (0.5-1.4) mg/dL Estim Creat Clear Calc 80.5 Estimated GFR 55 Random Glucose 147 H (60-115) mg/dL Calcium 9.8 D (8.4-10.2) mg/dL Total Bilirubin 0.6 (0.0-1.0) mg/dL Direct Bilirubin 0.3 (0.0-0.5) mg/dL AST 30 (5-31) U/L ALT 54 H (0-31) U/L Alkaline Phosphatase 132 H (39-117) U/L Troponin I High Sens < 3.5 (<3.5-17.0) ng/L Total Protein 8.2 H (6.5-8.0) g/dL Albumin 4.3 (3.5-5.0) g/dL COVID-19 ([facility]) (Negative) COVID-19 Clin Com 06/02/22 Range/Units 19:36 WBC (4.8-10.8) X10*3/uL RBC (4.20-5.50) X10*6/uL Hgb (12.0-16.0) g/dl Hct (37.0-47.0) % MCV (80.0-98.0) fL MCH (27.0-33.0) pg MCHC (31.0-35.0) g/dl RDW (11.0-16.0) % Plt Count (160-400) X10*3/uL MPV (9.4-12.3) fL Immature Gran % (Auto) (0.0-0.4) % Neut % (Auto) (45-73) % Lymph % (Auto) (20-40) % Mitchell % (Auto) (2-11) % Eos % (Auto) (0-4) % Baso % (Auto) (0-2) % Lymph # (Auto) (1.2-4.9) X10*3/uL Mitchell # (Auto) (0.1-1.2) X10*3/uL Eos # (Auto) (0.0-0.4) X10*3/uL Baso # (Auto) (0.0-0.2) X10*3/uL Abs Immat Gran (auto) (0.00-0.03) X10*3/uL Absolute Neuts (auto) (2.0-8.3) x10*3/uL Absolute Nucleated RBC (0.0-0.012) X10*3/uL Nucleated RBC % (auto) (0.0-0.2) /100WBC Sodium (135-145) mmol/L Potassium (3.3-5.1) mmol/L Chloride (96-108) mmol/L Carbon Dioxide (22-29) mmol/L Anion Gap (12-20) BUN (9-16) mg/dL Creatinine (0.5-1.4) mg/dL Estim Creat Clear Calc Estimated GFR Random Glucose (60-115) mg/dL Calcium (8.4-10.2) mg/dL Total Bilirubin (0.0-1.0) mg/dL Direct Bilirubin (0.0-0.5) mg/dL AST (5-31) U/L ALT (0-31) U/L Alkaline Phosphatase (39-117) U/L Troponin I High Sens (<3.5-17.0) ng/L Total Protein (6.5-8.0) g/dL Albumin (3.5-5.0) g/dL COVID-19 ([facility]) Negative (Negative) COVID-19 Clin Com See Note Discharge Plan Discharge Clinical Impression: Abdominal pain, Headache, Dysuria Patient Disposition: Still a Patient Prescriptions: No Action (DME) lancets [FreeStyle Lancets] [facility] See Rx Instructions .Route Qty: 100 6RF Rx Instructions: BID metoprolol tartrate 50 mg tablet 50 mg PO BID 90 Days Qty: 180 1RF (DME) lancets [FreeStyle Lancets] 28 gauge misc See Rx Instructions .Route Qty: 100 3RF Rx Instructions: Use 1 lancet once a day metformin 500 mg tablet 500 mg PO BID Qty: 180 2RF (DME) FreeStyle Julianne 2 Sensor Kit See Rx Instructions .Route Qty: 1 2RF Rx Instructions: As directed (DME) diabetic supplies, miscellan. Misc See Rx Instructions .Route Qty: 1 0RF Rx Instructions: As directed (DME) heating pads Pad See Rx Instructions .Route Qty: 1 0RF Rx Instructions: As directed sennosides [senna] 8.6 mg tablet 17.2 mg PO BEDTIME Qty: 60 3RF Hold Instructions: Doctor's Order (DME) Gel mattress overlay [facility] See Rx Instructions .Route Qty: 1 0RF Rx Instructions: As directed albuterol sulfate 2.5 mg /3 mL (0.083 %) solution for nebulization 2.5 mg inhalation TID PRN (Reason: shortness of breath or wheezing) 30 Days Qty: 180 1RF levothyroxine 112 mcg tablet 112 mcg PO DAILY Qty: 30 2RF (DME) Toilet seat riser See Rx Instructions .Route .MEDSUPPLY Qty: 1 0RF Rx Instructions: As directed (DME) walker [facility] [place] See Rx Instructions .Route Qty: 1 0RF Rx Instructions: As directed acetaminophen [Tylenol Extra Strength] 500 mg tablet 500 mg PO Q6H PRN (Reason: fever or pain) 30 Days Qty: 120 1RF (DME) miscellaneous medical supply [facility] [place] See Rx Instructions .ROUTE .MEDSUPPLY Qty: 1 0RF Rx Instructions: toilet seat elevator (DME) blood pressure monitor Kit See Rx Instructions .Route Qty: 1 0RF Rx Instructions: Use as needed amlodipine 10 mg tablet 10 mg PO DAILY Qty: 90 1RF ergocalciferol (vitamin D2) 1,250 mcg (50,000 unit) capsule 1,250 mcg PO QWEEK 90 Days Qty: 13 1RF (DME) pen needle, diabetic [BD Ultra-Fine Mini Pen Needle] 31 gauge x 3/16 needle See Rx Instructions .Route Qty: 100 0RF Rx Instructions: As directed (DME) insulin syringe-needle U-100 [BD Insulin Syringe Ultra-Fine] 0.5 mL 31 gauge x 5/16 syringe See Rx Instructions .Route Qty: 100 3RF Rx Instructions: Use 1 three times a day pyridoxine (vitamin B6) 100 mg tablet 100 mg PO DAILY 90 Days Qty: 90 1RF Trulicity 0.75 mg/0.5 mL pen injector 0.75 mg subcut QWEEK Qty: 2 2RF sumatriptan succinate 25 mg tablet See Rx Instructions PO .COMPLEX Qty: 14 0RF Rx Instructions: take 1 tab at onset of headache; if no relief may repeat 1 tab after at least 2 hrs; max = 4 tabs/24 hr PO (DME) diabetic shoes and inserts See Rx Instructions .Route .MEDSUPPLY Qty: 1 1RF Rx Instructions: As directed ondansetron 4 mg tablet,disintegrating 4 mg PO Q6-8H PRN (Reason: nausea and vomiting) Qty: 14 0RF guaifenesin [Mucinex] 600 mg tablet extended release 12hr 600 mg PO Q12H PRN (Reason: congestion) 5 Days Qty: 10 0RF prednisone 10 mg tablet 10 mg PO DAILY PRN (Reason: wheezing) 6 Days Qty: 12 0RF Rx Instructions: Take 3 tabs the first 2 days, then 2 tabs the next 2 days, then 1 tab the next 2 days prednisone 10 mg tablet 40 mg PO DAILY 5 Days Qty: 20 0RF meclizine 25 mg tablet 25 mg PO TID PRN (Reason: dizziness) 30 Days Qty: 90 1RF benzonatate 100 mg capsule 100 mg PO TID PRN (Reason: cough) 7 Days Qty: 21 0RF (DME) FreeStyle Lite Strips Strip See Rx Instructions .Route Qty: 100 3RF Rx Instructions: use 1 test strip once a day cyclobenzaprine 10 mg tablet 10 mg PO Q8H PRN (Reason: Muscle spasm) Qty: 14 0RF Hold Instructions: Doctor's Order gabapentin 100 mg Capsule 100 mg PO TID Qty: 90 0RF oxycodone 5 mg capsule 5 mg PO TID PRN (Reason: moderate pain (scale score 5-6)) Qty: 14 0RF Rx Instructions: Partial Fill upon patient request. lidocaine 5 % adhesive patch,medicated 1 patch topical DAILY Qty: 30 0RF Rx Instructions: leave on most painful area for up to 12 hrs (DME) Shower Chair Misc See Rx Instructions .Route Qty: 1 0RF Rx Instructions: As directed zolpidem 10 mg tablet 10 mg PO BEDTIME PRN (Reason: Insomnia) (DME) blood pressure test kit-wrist [Blood Pressure Unit-Wrist] Kit See Rx Instructions .ROUTE .MEDSUPPLY Qty: 1 0RF Rx Instructions: to check blood pressure (DME) vaporizers Misc See Rx Instructions .ROUTE .MEDSUPPLY Qty: 1 Rx Instructions: As directed (DME) blood-glucose meter [FreeStyle Lite Meter] Kit See Rx Instructions .Route Qty: 1 0RF Rx Instructions: As directed lorazepam 0.5 mg tablet 0.5 mg PO DAILY PRN (Reason: Anxiety) mirtazapine 15 mg tablet 15 mg PO BEDTIME prochlorperazine maleate 10 mg tablet 10 mg PO Q8H PRN (Reason: unknown) ferrous sulfate 325 mg (65 mg iron) tablet 325 mg PO DAILY 90 Days Qty: 90 1RF insulin lispro [Humalog U-100 Insulin] 100 unit/mL solution 5 unit subcut TID 30 Days Qty: 4.5 2RF albuterol sulfate [Ventolin HFA] 90 mcg/actuation HFA aerosol inhaler 2 puff inhalation Q6H PRN (Reason: shortness of breath or wheezing) 30 Days Qty: 6.7 1RF tizanidine 4 mg tablet 4 mg PO BEDTIME PRN (Reason: muscle spasticity) 7 Days Qty: 7 0RF atorvastatin 10 mg tablet 10 mg PO BEDTIME 90 Days Qty: 90 1RF duloxetine 60 mg capsule,delayed release(DR/EC) 60 mg PO DAILY clonidine HCl 0.1 mg tablet 0.1 mg PO DAILY metoclopramide HCl [Reglan] 5 mg tablet 5 mg PO TIDAC Qty: 90 6RF pantoprazole [Protonix] 40 mg tablet,delayed release (DR/EC) 40 mg PO DAILY 30 Days Qty: 30 6RF Creon 24,000-76,000 -120,000 unit capsule,delayed release(DR/EC) 1 cap PO QID 30 Days Qty: 120 6RF Rx Instructions: administer with meals and/or snacks azithromycin 250 mg tablet See Rx Instructions PO .COMPLEX 5 Days Qty: 6 0RF Rx Instructions: For 250 mg dose pack: take 500 mg today (day 1), then 250 mg for 4 days (days 2-5) PO furosemide 40 mg tablet 60 mg PO QAM 30 Days Qty: 45 3RF Advair HFA 230-21 mcg/actuation HFA aerosol inhaler 2 puff inhalation Q12H 30 Days Qty: 1 6RF
[2022-06-02 19:13] LABS: Alanine Aminotransferase 54 U/L (0-31); Albumin Level 4.3 g/dL (3.5-5.0); Alkaline Phosphatase 132 U/L (39-117); Aspartate Amino Transferase 30 U/L (5-31); Bilirubin Direct 0.3 mg/dL (0.0-0.5); Bilirubin Total 0.6 mg/dL (0.0-1.0); Total Protein 8.2 g/dL (6.5-8.0)
[2022-06-02] MEDS: Morphine Sulfate 2 MG/ML CARTRIDGE IM (19:33)
[2022-06-02 20:05] LABS: COVID-19 Test Negative (Negative)
[2022-06-02 20:30] VITALS: BP 126/70; PULSE 85; RESP 17; O2SAT 97
[2022-06-02 21:39] LABS: Appearance Urine Error; Color Urine Dark Yellow; Glucose Urine UA Negative (Negative); Leukocyte Esterase Urine Small (1+) (Negative); Nitrite Urine Negative (Negative); Specific Gravity - Urine 1.025 (1.005-1.025); Urine Blood Negative (Negative); Urine Ketones 15 mg/dL (Negative); Urine Protein Trace mg/dL (Neg-Trace)
[2022-06-02 21:40] LABS: Bacteria Urine 2+ (None Seen); Hyaline Casts Urine 0-2 /LPF (0-2); RBC Urine 0-2 /HPF (0-2); UACC Culture Trigger YES; WBC Urine 0-5 /HPF (0-5)
[2022-06-02] MEDS: HYDROmorphone HCl 1 MG/ML SYRINGE IVPUSH (22:18)
[2022-06-02] MEDS: Metoclopramide HCl 10 MG/2 ML VIAL IVPUSH (22:18)
[2022-06-02 22:26] VITALS: BP 127/52; PULSE 102; RESP 15; O2SAT 93
[2022-06-02] MEDS: Lidocaine HCl Viscous 2 % 15 ML SOLUTION 10 ML PO (23:13)
[2022-06-02] MEDS: Magnesium Hydrox/Alum Hydrox 30 ML ORAL.SUSP PO (23:13)
[2022-06-02] MEDS: PHENobarb/Hyoscy/Atropine/Scop 10 ML ELIXIR PO (23:13)
[2022-06-03 00:12] VITALS: BP 108/50; PULSE 105; RESP 18; TEMP 36.6; O2SAT 93
[2022-06-03] MEDS: HYDROmorphone HCl 1 MG/ML SYRINGE IVPUSH (00:27)
== END 2022-06-03 00:35 | disposition home or self-care (01) ==
PROVIDERS: Emergency Medicine; Emergency Provider Emergency Medicine Emergency Medical Services; PCP Internal Medicine
DX: R10.10 Upper abdominal pain, unspecified (principal); R51.9 Headache, unspecified; R30.0 Dysuria; R11.0 Nausea; K76.0 Fatty (change of) liver, not elsewhere classified; Z20.822 Contact with and (suspected) exposure to COVID-19; E11.9 Type 2 diabetes mellitus without complications; E78.5 Hyperlipidemia, unspecified; E66.9 Obesity, unspecified; Z68.41 Body mass index [BMI] 40.0-44.9, adult; Z79.4 Long term (current) use of insulin; Z79.899 Other long term (current) drug therapy
CPT/HCPCS: 36415; 71045; 74176; 80048; 80076; 81001; 84484; 85025; 87086; 87635; 93005; 96372; 96374; 96375; 96376; 99284; J1170; J2270; J2765

== ENCOUNTER 2022-06-23 10:34 | Outpatient (REF) | payer OTHER, SELFPAY ==
--- NOTE | ~2022-06-23 | MM_ITS ---
EXAMINATION: MM SCREENING DIGITAL BREAST TOMOSYNTHESIS, BILATERAL CLINICAL INFORMATION: Screening. Asymptomatic. The lifetime risk of breast cancer based on the Tyrer-Cuzick Model is 11%. COMPARISON: Mammography: 02/04/2018, 04/02/2016 TECHNIQUE: Digital breast tomosynthesis is performed in both the craniocaudal and mediolateral oblique views along with computer-aided detection (CAD). Synthesized 2D images are generated from the tomosynthesis. Additional bilateral CC and left MLO views are provided. FINDINGS: There are scattered areas of fibroglandular density (ACR BI-RADS breast composition Category b). Parenchymal pattern is similar to prior studies. There is scattered stable smooth nodularity. No developing density, significant mass, architectural abnormality, or abnormal calcifications. The axilla and skin contours are unremarkable. No significant changes. MM/MM tomosynthesis screening BI IMPRESSION: No mammographic evidence of malignancy. ASSESSMENT: BI-RADS 2: Benign RECOMMENDATION: Routine annual mammography screening. This patient's information was entered into a reminder system with a target due date for their next mammogram.
== END 2022-06-23 10:35 | disposition home or self-care (01) ==
LOC: HO.MAMMO 10:34
PROVIDERS: PCP Internal Medicine; Visit Provider Internal Medicine
DX: J45.40 Moderate persistent asthma, uncomplicated (principal); R06.01 Orthopnea; R60.0 Localized edema; Z12.31 Encounter for screening mammogram for malignant neoplasm of breast
CPT/HCPCS: 77063; 77067; 99212

== ENCOUNTER 2022-06-23 14:06 | Emergency (ER) | payer OTHER, SELFPAY ==
--- NOTE | ~2022-06-23 | XR_ITS ---
EXAMINATION: XR CHEST CLINICAL INFORMATION: Chest pain and shortness of breath COMPARISON: 06/02/2022 TECHNIQUE: 2 views of the chest were obtained. FINDINGS: Lung volumes are low. Right hemidiaphragm elevation is slightly improved compared with prior in the previously seen right-sided atelectasis remains. Heart size normal. There is mild upper zone redistribution suggesting mild pulmonary vascular congestion. No pleural effusions are seen. Again seen are surgical clips in the gallbladder fossa XR/XR chest 2V IMPRESSION: Mild upper zone redistribution suggesting mild pulmonary vascular congestion. Continued hypoinflated lungs with elevated right hemidiaphragm with right basilar atelectasis.
--- NOTE | ~2022-06-23 | CT_ITS ---
EXAMINATION: CT CHEST WITHOUT CONTRAST CLINICAL INFORMATION: Shortness of breath with normal d-dimer and BMP COMPARISON: Chest CT 03/03/2022 TECHNIQUE: Multidetector volumetric CT imaging of the chest was done. Axial MIP volume rendering provided. Sagittal and coronal reformatted images were obtained. This CT examination was performed using dose optimization techniques as appropriate, variously including the following: *Automated exposure control *Adjustment of mA and/or kV according to patient size (this includes techniques or standardized protocols for targeted exams where dose is matched to indication/reason for exam; i.e. extremities or head) *Use of iterative reconstruction technique DLP: 519 mGy-cm FINDINGS: LUNGS: Unchanged 3 mm subpleural left lower lobe pulmonary nodule in the superior segment on series 502 image 226. No new pulmonary nodules. Elevation the right hemidiaphragm with right basilar atelectasis. Minimal subsegmental atelectasis in the left lung base. No consolidation. Central airways are clear. MEDIASTINUM: No cardiomegaly or pericardial effusion. Normal caliber thoracic aorta. Nondilated central pulmonary trunk. No mediastinal or hilar lymphadenopathy.. CORONARY ARTERY CALCIFICATION: None visualized on this study. PLEURA: There is no pleural effusion. No pleural mass or thickening. AXILLA: No lymphadenopathy. UPPER ABDOMEN: Mild hepatomegaly with the right liver lobe measuring 17 cm in craniocaudal extent. Diffuse hepatic hypoattenuation/steatosis. Status post cholecystectomy. No biliary ductal dilation. Retroaortic left renal vein. Imaged upper abdominal viscera otherwise unremarkable. OSSEOUS STRUCTURES: No acute fracture or suspicious osseous lesion. Mild multilevel degenerative disc disease most prominent in the lower thoracic spine. CT/CT chest wo IV con IMPRESSION: 1. Unchanged elevation of the right hemidiaphragm with right basilar atelectasis. 2. No airspace consolidation or pleural effusions. 3. Hepatic steatosis.
[2022-06-23 14:40] VITALS: PULSE 100; RESP 18; TEMP 36.6; O2SAT 96; BMI 42.0
--- NOTE | 2022-06-23 14:45 | ECG_ITS ---
Test Reason : chests pain Blood Pressure : / mmHG Vent. Rate : 094 BPM Atrial Rate : 094 BPM P-R Int : 144 ms QRS Dur : 078 ms QT Int : 376 ms P-R-T Axes : 007 -02 004 degrees QTc Int : 470 ms Normal sinus rhythm Normal ECG When compared with ECG of 02-JUN-2022 17:28, No significant change was found Referred By: Generic ED Physician Electronically Signed By:CARLOS ARCEO
[2022-06-23] MEDS: Acetaminophen 325 MG TABLET 650 MG PO (14:53)
[2022-06-23 15:13] LABS: MANUAL DIFF FLAG NO
[2022-06-23 15:16] LABS: Basophils Absolute Auto 0.1 X10*3/uL (0.0-0.2); Basophils Percent Auto 0.4 % (0-2); Eosinophils Absolute Auto 0.6 X10*3/uL (0.0-0.4); Eosinophils Percent Auto 3.4 % (0-4); Hemoglobin 13.2 g/dl (12.0-16.0); Imm Gran Abs Auto 0.18 X10*3/uL (0.00-0.03); Imm Gran Pct Auto 1.1 % (0.0-0.4); Lymphocytes Absolute Auto 2.3 X10*3/uL (1.2-4.9); Lymphocytes Percent Auto 14.2 % (20-40); Mean Corpuscular HGB Conc 30.7 g/dl (31.0-35.0); Mean Corpuscular Hemoglobin 23.2 pg (27.0-33.0); Mean Corpuscular Volume 75.4 fL (80.0-98.0); Mean Platelet Volume 9.9 fL (9.4-12.3); Monocytes Absolute Auto 0.6 X10*3/uL (0.1-1.2); Monocytes Percent Auto 3.8 % (2-11); Neutrophils Absolute Auto 12.6 x10*3/uL (2.0-8.3); Neutrophils Percent Auto 77.1 % (45-73); Platelet Count 387 X10*3/uL (160-400); Red Cell Distribution Width 17.5 % (11.0-16.0); White Blood Count 16.4 X10*3/uL (4.8-10.8)
[2022-06-23 15:29] LABS: Anion Gap 18 (12-20); Blood Urea Nitrogen 12 mg/dL (9-16); Calcium 9.9 mg/dL (8.4-10.2); Carbon Dioxide 25 mmol/L (22-29); Chloride 101 mmol/L (96-108); Creatinine Clr Calc Pharmacy 113.1; Estimated Glomerular Filt Rate > 60; Glucose Random 126 mg/dL (60-115); Potassium 4.1 mmol/L (3.3-5.1); Sodium 140 mmol/L (135-145)
[2022-06-23 15:35] LABS: COVID-19 Test Negative (Negative); IDNOW Serial# 16C4AD1C
[2022-06-23 15:36] LABS: B Type Natriuretic Peptide < 10 pg/mL (<100); Troponin-I High Sensitivity < 3.5 ng/L (<3.5-17.0)
[2022-06-23 16:46] VITALS: BP 154/82; PULSE 93; RESP 18; O2SAT 95
--- NOTE | 2022-06-23 16:52 | ED.SOB ---
HPI - SOB/Dyspnea General Chief Complaint: Dyspnea Stated Complaint: sob, fluid in body, swollen feet Time Seen by Provider: 06/23/22 16:20 Source: patient Mode of arrival: ambulatory Limitations: no limitations History of Present Illness HPI Narrative: Patient comes to the emergency room from Dr. Hernandez's office. patient was being evaluated for shortness of breath with exertion, which has been present for approximately 1 month. Patient states that she has been taking Lasix 60 mg daily for lower extremity edema without any significant relief. Today, at the office visit, patient's oxygen saturation dropped to 87% with ambulation. Patient states that she feels short of breath all the time. She has an echocardiogram pending tomorrow. Patient denies any chest pain, Denies any coughing. Per Dr. Hernandez's note from today, patient's ambulation oxygenation dropped to 87%. At this time, patient is on room air saturating 96%. Related Data Home Medications Medication Instructions Recorded Confirmed vaporizers #1 ea 10/10/20 04/09/22 zolpidem 10 mg tablet 10 mg PO BEDTIME PRN Insomnia 05/08/21 05/08/22 clonidine HCl 0.1 mg tablet 0.1 mg PO DAILY 09/19/21 05/08/22 lorazepam 0.5 mg tablet 0.5 mg PO DAILY PRN Anxiety 04/09/22 05/08/22 mirtazapine 15 mg tablet 15 mg PO BEDTIME insomnia 04/09/22 05/08/22 prochlorperazine maleate 10 mg 10 mg PO Q8H PRN unknown 04/09/22 05/08/22 tablet mirtazapine 30 mg tablet 30 mg PO BEDTIME 06/23/22 Previous Rx's Medication Instructions Recorded blood pressure test kit-wrist #1 ea 09/13/20 (Blood Pressure Unit-Wrist kit) lancets 28 gauge (FreeStyle #100 ea 05/23/21 Lancets) blood-glucose meter (FreeStyle #1 ea 09/16/21 Lite Meter kit) lancets 28 gauge (FreeStyle #100 ea 11/12/21 Lancets) metformin 500 mg tablet 500 mg PO BID #180 tabs 11/15/21 diabetic supplies, [employer]. #1 ea 12/03/21 flash glucose sensor (FreeStyle #1 ea 12/03/21 Julianne 2 Sensor kit) heating pads #1 ea 01/21/22 sennosides 8.6 mg tablet (senna) 17.2 mg PO BEDTIME #60 tabs 01/26/22 Gel mattress overlay #1 ea 01/28/22 cyclobenzaprine 10 mg tablet 10 mg PO Q8H PRN Muscle spasm #14 02/06/22 tabs albuterol sulfate 2.5 mg/3 mL 2.5 mg (3 mL) inhalation TID PRN 02/10/22 (0.083 %) solution for nebulization shortness of breath or wheezing 1 month #180 mL Toilet seat riser #1 ea 03/05/22 walker #1 ea 03/05/22 acetaminophen 500 mg tablet 500 mg PO Q6H PRN fever or pain 30 03/10/22 (Tylenol Extra Strength) days #120 tabs blood pressure monitor #1 ea 03/10/22 miscellaneous medical supply #1 ea 03/10/22 amlodipine 10 mg tablet 10 mg PO DAILY #90 tabs 03/12/22 atorvastatin 10 mg tablet 10 mg PO BEDTIME 90 days #90 tabs 03/16/22 tizanidine 4 mg tablet 4 mg PO BEDTIME PRN muscle 03/16/22 spasticity 7 days #7 tabs ergocalciferol (vitamin D2) 1,250 1,250 mcg PO QWEEK 90 days #13 caps 04/08/22 mcg (50,000 unit) capsule albuterol sulfate 90 mcg/actuation 2 puff inhalation Q6H PRN 04/09/22 aerosol inhaler (Ventolin HFA) shortness of breath or wheezing 30 days #6.7 grams ferrous sulfate 325 mg (65 mg 325 mg PO DAILY 90 days #90 tabs 04/09/22 iron) tablet insulin lispro 100 unit/mL 5 unit (0.05 mL) subcut TID 30 04/09/22 subcutaneous solution (Humalog days #4.5 mL U-100 Insulin) pen needle, diabetic 31 gauge x #100 ea 04/10/22 3/16 (BD Ultra-Fine Mini Pen Needle) insulin syringe-needle U-100 0.5 #100 ea 04/13/22 mL 31 gauge x 5/16 (BD Insulin Syringe Ultra-Fine) pyridoxine (vitamin B6) 100 mg 100 mg PO DAILY 90 days #90 tabs 04/20/22 tablet dulaglutide 0.75 mg/0.5 mL 0.75 mg (0.5 mL) subcut QWEEK #2 mL 04/30/22 subcutaneous pen injector (Trulicity) diabetic shoes and inserts #1 ea 05/06/22 ondansetron 4 mg disintegrating 4 mg PO Q6-8H PRN nausea and 05/07/22 tablet vomiting #14 tabs Shower Chair #1 ea 05/11/22 gabapentin 100 mg capsule 100 mg PO TID #90 caps 05/11/22 oxycodone 5 mg capsule 5 mg PO TID PRN moderate pain 05/11/22 (scale score 5-6) #14 caps [id number] 1 cap PO QID 30 days #120 caps 05/12/22 24,000-76,000-120,000 unit capsule,delayed rel (Creon) metoclopramide HCl 5 mg tablet 5 mg PO TIDAC #90 tabs 05/12/22 (Reglan) pantoprazole 40 mg tablet,delayed 40 mg PO DAILY 30 days #30 tabs 05/12/22 release (Protonix) guaifenesin 600 mg tablet, 600 mg PO Q12H PRN congestion 5 05/25/22 extended release 12 hr (Mucinex) days #10 tabs benzonatate 100 mg capsule 100 mg PO TID PRN cough 7 days #21 05/27/22 caps meclizine 25 mg tablet 25 mg PO TID PRN dizziness 30 days 05/27/22 #90 tabs fluticasone propionate 230 2 puff inhalation Q12H 30 days #1 05/29/22 mcg-salmeterol 21 mcg/actuation ea HFA inhaler (Advair HFA) furosemide 40 mg tablet 60 mg PO QAM 30 days #45 tabs 05/29/22 blood sugar diagnostic (FreeStyle #100 ea 06/01/22 Lite Strips) clotrimazole 1 % topical cream 1 appl topical BID 4 weeks #30 06/04/22 grams levofloxacin 750 mg tablet 750 mg PO DAILY 7 days #7 tabs 06/04/22 metoprolol tartrate 50 mg tablet 50 mg PO BID 3 months #180 tabs 06/07/22 hydroxyzine HCl 25 mg tablet 25 mg PO BID PRN itching #10 tabs 06/10/22 lidocaine 4 % topical cream 1 appl topical BID PRN pain #30 06/10/22 grams duloxetine 60 mg capsule,delayed 60 mg PO DAILY 90 days #90 caps 06/15/22 release sumatriptan succinate 25 mg tablet See Rx Instructions PO .COMPLEX 06/16/22 #14 tabs levothyroxine 112 mcg tablet 112 mcg PO DAILY 90 days #90 tabs 06/21/22 furosemide 40 mg tablet (Lasix) 40 mg PO BID #20 tabs 06/23/22 Allergies Allergy/AdvReac Type Severity Reaction Status Date / Time Penicillins Allergy Severe swelling Verified 06/23/22 13:10 adhesive tape [ADHESIVE TAPE] Allergy Intermediate RASH Verified 06/23/22 13:10 amoxicillin [AMOXICILLIN] Allergy Intermediate RASH,SWELLING, Verified 06/23/22 13:10 RASH/SWELLING latex Allergy Intermediate Rash Verified 06/23/22 13:10 Motrin Allergy Intermediate hypertensio Verified 06/23/22 13:10 n Review of Systems Review of Systems: Constitutional : No Weight loss, No Fever, No Chills, No Night Sweats, No Fatigue, No Malaise ENT/Mouth : No Hearing loss, No Ear Pain, No Nasal Congestion, No Sinus Pain, No Hoarseness, No sore throat, No Rhinorrhea, No Swallowing Difficulty Eyes: No Eye Pain, No Swelling, No Redness, No Foreign Body, No Discharge, No Vision Changes Cardiovascular : No Chest Pain, Complaining of shortness of breath with exertion, complaining of orthopnea, complaining of lower extremity edema Respiratory : No Cough, No Sputum, No Wheezing, No Smoke Exposure, complaining shortness of breath with exertion Gastrointestinal : No Nausea, No Vomiting, No Diarrhea, No Constipation, No abdominal Pain, No Hematochezia, No Melena Genitourinary : no irregular bleeding, No Dysuria, No Urinary Frequency, No Hematuria, No Urinary Incontinence, No Urgency, No Flank Pain, No Urinary Flow Changes, No Hesitancy Musculoskeletal : No joint pain, No Myalgias, No Joint Swelling Skin : No Skin Lesions, No rash Neuro : No Weakness, No Numbness, No Paresthesias, No Loss of Consciousness, No Dizziness, No Headache Psych : No Anxiety/Panic, No Depression, No SI/HI/AH/VH, No Social Issues, Heme/Lymph: No Bruising, No Bleeding,No Lymphadenopathy Endocrine : No Polyuria, No Polydipsia, No Temperature Intolerance [facility] Past Medical History Medical History Arthropathy of facet joint Asthma Bilateral shoulder pain Chronic idiopathic constipation Chronic pain (Unknown) Chronic pain syndrome Degeneration, intervertebral disc, cervical Diabetes mellitus Disc degeneration, lumbar Fibromyalgia LUDY (generalized anxiety disorder) Goiter Hyperlipidemia LDL goal <70 Hypothyroidism Incontinence Insomnia Left knee pain Lumbar pain Moderately severe recurrent major depression Morbid (severe) obesity due to excess calories Multiple air fluid levels of small intestine determined by X-ray Renal calculi Sleep apnea Small bowel motility disorder Spondylosis of cervical spine at multiple levels without myelopathy Spondylosis of cervical spine at multiple levels without myelopathy Spondylosis of lumbar region without myelopathy or radiculopathy Surgical History Delivery by section History of cholecystectomy History of esophagogastroduodenoscopy (EGD) History of hernia surgery History of hysterectomy History of knee replacement procedure of right knee Hx of colonoscopy Family History Family History Father Past heart attack Anxiety Mother MOF (multiple organ failure) Brother HIV (human immunodeficiency virus infection) Sister Ovarian cancer Lupus Bone cancer Uterine cancer Tumor Daughter Guillain-[place] Sister Lupus History of open heart surgery Family/Other Depression FH: mental illness Maternal Aunt Breast cancer Maternal Aunt Tumor Social History Social History Household Members: None Household Members Other:: Housing: Apartment Are you a primary housekeeper child care to a significant other at home: No 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) Alcohol intake: never Patient Tobacco Use Status: Never used Tobacco e-Cigarette/Vaping Use: Never Used Second Hand Smoke Exposure: Yes Use of substances other than those prescribed or required for medical reasons: No Advance Directives: Yes Advance Directives on File: Yes Advance Directives Date on File: 12/08/21 service: No Current occupational status: unemployed and disabled Cognitive needs: No Hearing needs: No Vision needs: No Physical Exam Vital Signs: Vital Signs: Last Vital Signs Temp 97.7 F 06/23/22 16:55 Pulse 95 06/23/22 19:01 Resp 18 06/23/22 19:01 BP 140/68 H 06/23/22 19:01 Pulse Ox 93 06/23/22 19:01 O2 Del Method 06/23/22 19:01 BMI result Body Mass Index 42.0 Const: Other: Appearance: Alert. Oriented X3. No acute distress. well-appearing Eyes: Pupils equal, round and reactive to light. ENT: Pharynx normal. Neck: Normal inspection. Neck supple. No lymph nodes noted. No crepitus CVS: Normal heart rate and rhythm. Pulses normal. Normal S1 and S2 Respiratory: No respiratory distress. Breath sounds normal. No Wheezing. No rales Abdomen: Soft and nontender. No rigidity. No distention. Skin: Skin warm and dry. Normal skin color. Normal skin turgor. Extremities: Bilateral lower extremity +2 nonpitting edema Neuro: Oriented X 3. No motor deficit. No sensory deficit. Moving all extremities. No slurred speech. CN 2 through 12 grossly intact Psych: calm, cooperative, normal affect Course Course Course Narrative: patient has an echocardiogram pending for tomorrow. patient was ambulated in the emergency room, patient reported feeling short of breath, but her oxygen saturation remained at 93%, heart rate increased appropriately, and return to normal once patient sat down At this time, patient's vitals are stable, x-ray shows pulmonary congestion. BNP is negative, troponin negative, patient's white blood cell count is 16.4 which is chronic D-dimer is negative. I discussed with the patient that we will go ahead and scan her chest without contrast. CT scan did not show any abnormality that would explain the patient's chronic shortness of breath. I discussed the CT scan with the patient, patient will be referred back to her primary care physician and tissue recovery technician. Patient's renal function is within normal limits. We will increase the Lasix from 60 mg daily to 40 mg b.i.d. MDM - SOB/Dyspnea Lab Data Result diagrams: 06/23/22 14:55 06/23/22 14:55 Labs: Lab Results 06/23/22 06/23/22 06/23/22 Range/Units 14:55 14:55 14:55 WBC 16.4 H (4.8-10.8) X10*3/uL RBC 5.70 H (4.20-5.50) X10*6/uL Hgb 13.2 (12.0-16.0) g/dl Hct 43.0 (37.0-47.0) % MCV 75.4 L (80.0-98.0) fL MCH 23.2 L (27.0-33.0) pg MCHC 30.7 L (31.0-35.0) g/dl RDW 17.5 H (11.0-16.0) % Plt Count 387 (160-400) X10*3/uL MPV 9.9 (9.4-12.3) fL Immature Gran % (Auto) 1.1 H (0.0-0.4) % Neut % (Auto) 77.1 H (45-73) % Lymph % (Auto) 14.2 L (20-40) % Green % (Auto) 3.8 (2-11) % Eos % (Auto) 3.4 (0-4) % Baso % (Auto) 0.4 (0-2) % Lymph # (Auto) 2.3 (1.2-4.9) X10*3/uL Green # (Auto) 0.6 (0.1-1.2) X10*3/uL Eos # (Auto) 0.6 H (0.0-0.4) X10*3/uL Baso # (Auto) 0.1 (0.0-0.2) X10*3/uL Abs Immat Gran (auto) 0.18 H (0.00-0.03) X10*3/uL Absolute Neuts (auto) 12.6 H (2.0-8.3) x10*3/uL Absolute Nucleated RBC 0.000 (0.0-0.012) X10*3/uL Nucleated RBC % (auto) 0.0 (0.0-0.2) /100WBC D-Dimer High Sensitivty NG/ML Sodium 140 (135-145) mmol/L Potassium 4.1 (3.3-5.1) mmol/L Chloride 101 (96-108) mmol/L Carbon Dioxide 25 (22-29) mmol/L Anion Gap 18 (12-20) BUN 12 (9-16) mg/dL Creatinine 0.75 (0.5-1.4) mg/dL Estim Creat Clear Calc 113.1 Estimated GFR > 60 Random Glucose 126 H (60-115) mg/dL Calcium 9.9 (8.4-10.2) mg/dL Troponin I High Sens < 3.5 (<3.5-17.0) ng/L B-Natriuretic Peptide (<100) pg/mL TSH 2.65 (0.32-4.0) uIU/mL COVID-19 ([facility]) (Negative) COVID-19 Clin Com 06/23/22 06/23/22 06/23/22 Range/Units 14:55 14:55 17:15 WBC (4.8-10.8) X10*3/uL RBC (4.20-5.50) X10*6/uL Hgb (12.0-16.0) g/dl Hct (37.0-47.0) % MCV (80.0-98.0) fL MCH (27.0-33.0) pg MCHC (31.0-35.0) g/dl RDW (11.0-16.0) % Plt Count (160-400) X10*3/uL MPV (9.4-12.3) fL Immature Gran % (Auto) (0.0-0.4) % Neut % (Auto) (45-73) % Lymph % (Auto) (20-40) % Green % (Auto) (2-11) % Eos % (Auto) (0-4) % Baso % (Auto) (0-2) % Lymph # (Auto) (1.2-4.9) X10*3/uL Green # (Auto) (0.1-1.2) X10*3/uL Eos # (Auto) (0.0-0.4) X10*3/uL Baso # (Auto) (0.0-0.2) X10*3/uL Abs Immat Gran (auto) (0.00-0.03) X10*3/uL Absolute Neuts (auto) (2.0-8.3) x10*3/uL Absolute Nucleated RBC (0.0-0.012) X10*3/uL Nucleated RBC % (auto) (0.0-0.2) /100WBC D-Dimer High Sensitivty 208 NG/ML Sodium (135-145) mmol/L Potassium (3.3-5.1) mmol/L Chloride (96-108) mmol/L Carbon Dioxide (22-29) mmol/L Anion Gap (12-20) BUN (9-16) mg/dL Creatinine (0.5-1.4) mg/dL Estim Creat Clear Calc Estimated GFR Random Glucose (60-115) mg/dL Calcium (8.4-10.2) mg/dL Troponin I High Sens (<3.5-17.0) ng/L B-Natriuretic Peptide < 10 (<100) pg/mL TSH (0.32-4.0) uIU/mL COVID-19 ([facility]) Negative (Negative) COVID-19 Clin Com See Note Imaging Data CT scan - chest: Radiologist's impression: FINDINGS: LUNGS: Unchanged 3 mm subpleural left lower lobe pulmonary nodule in the superior segment on series 502 image 226. No new pulmonary nodules. Elevation the right hemidiaphragm with right basilar atelectasis. Minimal subsegmental atelectasis in the left lung base. No consolidation. Central airways are clear.? MEDIASTINUM: No cardiomegaly or pericardial effusion. Normal caliber thoracic aorta. Nondilated central pulmonary trunk. No mediastinal or hilar lymphadenopathy..? CORONARY ARTERY CALCIFICATION: None visualized on this study. PLEURA: There is no pleural effusion. No pleural mass or thickening.? AXILLA: No lymphadenopathy.? UPPER ABDOMEN: Mild hepatomegaly with the right liver lobe measuring 17 cm in craniocaudal extent. Diffuse hepatic hypoattenuation/steatosis. Status post cholecystectomy. No biliary ductal dilation. Retroaortic left renal vein. Imaged upper abdominal viscera otherwise unremarkable. ? OSSEOUS STRUCTURES: No acute fracture or suspicious osseous lesion. Mild multilevel degenerative disc disease most prominent in the lower thoracic spine.? CT/CT chest wo IV con IMPRESSION: ? 1. Unchanged elevation of the right hemidiaphragm with right basilar atelectasis. 2. No airspace consolidation or pleural effusions. 3. Hepatic steatosis. ? ? Discharge Plan Discharge Clinical Impression: Chronic dyspnea, Non-pitting edema Patient Disposition: Home, Self-Care Instructions: Leg Edema (ED), Dyspnea (ED) Additional Instructions: Please follow-up with your primary care physician tomorrow. If you have any worsening or new symptoms, please return to the emergency room or call 911 Prescriptions: New furosemide [Lasix] 40 mg tablet 40 mg PO BID Qty: 20 0RF No Action (DME) lancets [FreeStyle Lancets] [facility] See Rx Instructions .Route Qty: 100 6RF Rx Instructions: BID (DME) lancets [FreeStyle Lancets] 28 gauge [facility] See Rx Instructions .Route Qty: 100 3RF Rx Instructions: Use 1 lancet once a day metformin 500 mg tablet 500 mg PO BID Qty: 180 2RF (DME) FreeStyle Julianne 2 Sensor Kit See Rx Instructions .Route Qty: 1 2RF Rx Instructions: As directed (DME) diabetic supplies, miscellan. [facility] See Rx Instructions .Route Qty: 1 0RF Rx Instructions: As directed (DME) heating pads Pad See Rx Instructions .Route Qty: 1 0RF Rx Instructions: As directed sennosides [senna] 8.6 mg tablet 17.2 mg PO BEDTIME Qty: 60 3RF Hold Instructions: Doctor's Order (DME) Gel mattress overlay [facility] See Rx Instructions .Route Qty: 1 0RF Rx Instructions: As directed albuterol sulfate 2.5 mg /3 mL (0.083 %) solution for nebulization 2.5 mg inhalation TID PRN (Reason: shortness of breath or wheezing) 30 Days Qty: 180 1RF (DME) Toilet seat riser See Rx Instructions .Route .MEDSUPPLY Qty: 1 0RF Rx Instructions: As directed (DME) walker [facility] See Rx Instructions .Route Qty: 1 0RF Rx Instructions: As directed acetaminophen [Tylenol Extra Strength] 500 mg tablet 500 mg PO Q6H PRN (Reason: fever or pain) 30 Days Qty: 120 1RF (DME) miscellaneous medical supply [facility] See Rx Instructions .ROUTE .MEDSUPPLY Qty: 1 0RF Rx Instructions: toilet seat elevator (DME) blood pressure monitor Kit See Rx Instructions .Route Qty: 1 0RF Rx Instructions: Use as needed amlodipine 10 mg tablet 10 mg PO DAILY Qty: 90 1RF ergocalciferol (vitamin D2) 1,250 mcg (50,000 unit) capsule 1,250 mcg PO QWEEK 90 Days Qty: 13 1RF (DME) pen needle, diabetic [BD Ultra-Fine Mini Pen Needle] 31 gauge x 3/16 needle See Rx Instructions .Route Qty: 100 0RF Rx Instructions: As directed (DME) insulin syringe-needle U-100 [BD Insulin Syringe Ultra-Fine] 0.5 mL 31 gauge x 5/16 syringe See Rx Instructions .Route Qty: 100 3RF Rx Instructions: Use 1 three times a day pyridoxine (vitamin B6) 100 mg tablet 100 mg PO DAILY 90 Days Qty: 90 1RF Trulicity 0.75 mg/0.5 mL pen injector 0.75 mg subcut QWEEK Qty: 2 2RF (DME) diabetic shoes and inserts See Rx Instructions .Route .MEDSUPPLY Qty: 1 1RF Rx Instructions: As directed ondansetron 4 mg tablet,disintegrating 4 mg PO Q6-8H PRN (Reason: nausea and vomiting) Qty: 14 0RF guaifenesin [Mucinex] 600 mg tablet extended release 12hr 600 mg PO Q12H PRN (Reason: congestion) 5 Days Qty: 10 0RF meclizine 25 mg tablet 25 mg PO TID PRN (Reason: dizziness) 30 Days Qty: 90 1RF benzonatate 100 mg capsule 100 mg PO TID PRN (Reason: cough) 7 Days Qty: 21 0RF (DME) FreeStyle Lite Strips Strip See Rx Instructions .Route Qty: 100 3RF Rx Instructions: use 1 test strip once a day levofloxacin 750 mg tablet 750 mg PO DAILY 7 Days Qty: 7 0RF clotrimazole 1 % cream 1 appl topical BID 28 Days Qty: 30 1RF metoprolol tartrate 50 mg tablet 50 mg PO BID 90 Days Qty: 180 1RF duloxetine 60 mg capsule,delayed release(DR/EC) 60 mg PO DAILY 90 Days Qty: 90 1RF sumatriptan succinate 25 mg tablet See Rx Instructions PO .COMPLEX Qty: 14 0RF Rx Instructions: take 1 tab at onset of headache; if no relief may repeat 1 tab after at least 2 hrs; max = 4 tabs/24 hr PO levothyroxine 112 mcg tablet 112 mcg PO DAILY 90 Days Qty: 90 1RF cyclobenzaprine 10 mg tablet 10 mg PO Q8H PRN (Reason: Muscle spasm) Qty: 14 0RF Hold Instructions: Doctor's Order gabapentin 100 mg Capsule 100 mg PO TID Qty: 90 0RF oxycodone 5 mg capsule 5 mg PO TID PRN (Reason: moderate pain (scale score 5-6)) Qty: 14 0RF Rx Instructions: Partial Fill upon patient request. ([facility]) Shower Chair Misc See Rx Instructions .Route Qty: 1 0RF Rx Instructions: As directed zolpidem 10 mg tablet 10 mg PO BEDTIME PRN (Reason: Insomnia) ([facility]) blood pressure test kit-wrist [Blood Pressure Unit-Wrist] Kit See Rx Instructions .ROUTE .MEDSUPPLY Qty: 1 0RF Rx Instructions: to check blood pressure ([facility]) vaporizers Misc See Rx Instructions .ROUTE .MEDSUPPLY Qty: 1 Rx Instructions: As directed ([facility]) blood-glucose meter [FreeStyle Lite Meter] Kit See Rx Instructions .Route Qty: 1 0RF Rx Instructions: As directed lorazepam 0.5 mg tablet 0.5 mg PO DAILY PRN (Reason: Anxiety) mirtazapine 15 mg tablet 15 mg PO BEDTIME prochlorperazine maleate 10 mg tablet 10 mg PO Q8H PRN (Reason: unknown) ferrous sulfate 325 mg (65 mg iron) tablet 325 mg PO DAILY 90 Days Qty: 90 1RF insulin lispro [Humalog U-100 Insulin] 100 unit/mL solution 5 unit subcut TID 30 Days Qty: 4.5 2RF albuterol sulfate [Ventolin HFA] 90 mcg/actuation HFA aerosol inhaler 2 puff inhalation Q6H PRN (Reason: shortness of breath or wheezing) 30 Days Qty: 6.7 1RF hydroxyzine HCl 25 mg tablet 25 mg PO BID PRN (Reason: itching) Qty: 10 0RF lidocaine 4 % cream 1 appl topical BID PRN (Reason: pain) Qty: 30 1RF tizanidine 4 mg tablet 4 mg PO BEDTIME PRN (Reason: muscle spasticity) 7 Days Qty: 7 0RF atorvastatin 10 mg tablet 10 mg PO BEDTIME 90 Days Qty: 90 1RF clonidine HCl 0.1 mg tablet 0.1 mg PO DAILY mirtazapine 30 mg tablet 30 mg PO BEDTIME metoclopramide HCl [Reglan] 5 mg tablet 5 mg PO TIDAC Qty: 90 6RF pantoprazole [Protonix] 40 mg tablet,delayed release (DR/EC) 40 mg PO DAILY 30 Days Qty: 30 6RF Creon 24,000-76,000 -120,000 unit capsule,delayed release(DR/EC) 1 cap PO QID 30 Days Qty: 120 6RF Rx Instructions: administer with meals and/or snacks furosemide 40 mg tablet 60 mg PO QAM 30 Days Qty: 45 3RF Advair HFA 230-21 mcg/actuation HFA aerosol inhaler 2 puff inhalation Q12H 30 Days Qty: 1 6RF
[2022-06-23 16:55] VITALS: TEMP 36.5
--- NOTE | 2022-06-23 17:26 | PC.NURSE ---
Patient complains of SOB, lungs sound clear. +1 bilateral edema in lower extremities, patient also complains of swelling on her hands. NSR on monitor. Ambulatory Pulse ox done sat 93%, HR 118 and patient was short of breath, Dr. Neal is aware. skin warm, color adequate to ethnicity. C/O chest and shoulder pain, no effect from tylenol given in triage pain at 10/10. IV established, Ddimer sent, patient awaiting results.
[2022-06-23 17:31] LABS: D Dimer High Sensitivity 208 NG/ML
[2022-06-23 17:32] LABS: TSH reflex Free T4 2.65 uIU/mL (0.32-4.0)
[2022-06-23 19:01] VITALS: BP 140/68; PULSE 95; RESP 18; O2SAT 93
[2022-06-23] MEDS: Acetaminophen 325 MG TABLET 975 MG PO (20:00)
--- NOTE | 2022-06-23 20:12 | PC.NURSE ---
Pt a&o, no sob or chest pain. Medicated pt per Dec. Reviewed discharge instruction patient. patient verbalized understanding.
== END 2022-06-23 20:17 | disposition home or self-care (01) ==
PROVIDERS: Emergency Provider Emergency Medicine; PCP Internal Medicine
DX: R06.02 Shortness of breath (principal); R60.0 Localized edema; R07.89 Other chest pain; M54.6 Pain in thoracic spine; Z20.822 Contact with and (suspected) exposure to COVID-19; Z79.899 Other long term (current) drug therapy
CPT/HCPCS: 36415; 71046; 71250; 77063; 77067; 80048; 83880; 84443; 84484; 85025; 85379; 87635; 93005; 99212; 99284; 99285

== ENCOUNTER → 2022-06-26 10:09 | Outpatient (REF) | payer OTHER, SELFPAY ==
--- NOTE | 2022-06-26 10:12 | CA_ITS ---
Transthoracic Echocardiogram Patient (Last, First, Middle): Bonnie Hickman, Gender: Female Date of : 1965 Age: 57 Procedure Date: 06/26/2022 Procedure Type: Transthoracic Echocardiogram Location: OP Height: 170.18 cm Weight: 121.56 kg BSA: 2.29 m2 Heart Rate: 96 bpm BP: 142 / 74 mmHg Schedule Manager: SB Referring MD: Kyle Hernandez MD Symptoms: R06.01 - Orthopnea Study Quality: Technically Difficult/BSA/Contrast ECG Rhythm: Sinus Conclusions: - The left ventricular systolic function is normal. The calculated ejection fraction is 65% by biplane method. - There is mild to moderately decreased right ventricular systolic function. - No obvious valvular pathology seen on this study. - Tricuspid regurgitation envelope is inadequate for calculation of right ventricular systolic pressure. Findings Procedure Information Contrast agent, definity, is being given per protocol without apparent complications. Left Ventricle Normal left ventricular cavity size. There is normal left ventricular wall thickness. The left ventricular systolic function is normal. The calculated ejection fraction is 65% by biplane method. There is no evidence of regional wall motion abnormalities. Diastolic function is normal for age. Right Ventricle Normal right ventricular cavity size. There is mild to moderately decreased right ventricular systolic function. Atria Both atria are normal in size. Aortic Valve The aortic valve was not well visualized. There is no aortic valve stenosis. There is no aortic valve regurgitation. Mitral Valve The mitral valve appears normal. There is no mitral valve regurgitation. There is no mitral valve stenosis. Pulmonic Valve The pulmonic valve was not well visualized. Tricuspid Valve The tricuspid valve was not well visualized. There is no tricuspid valve regurgitation. Tricuspid regurgitation envelope is inadequate for calculation of right ventricular systolic pressure. Great Vessels The asc aorta is normal in size. Venous The inferior vena cava is normal in size and collapses less than 50% with inspiration. Pericardium/Pleural There is no evidence of pericardial effusion. Prior Study Comparison Changes noted compared to prior study dated: 01/21/2016. See comments on right ventricular systolic function. Recommendations, Care & Conclusions No obvious valvular pathology seen on this study. Measurements 2D Linear Measurements IVSd: 0.69 0.6-0.9/0.6-1.0 cm LVIDd: 4.08 3.9-5.3/4.2-5.9 cm LVIDd Index: 1.78 2.4-3.2/2.2-3.1 cm/m2 LVPWd: 0.68 0.7-1.1 cm LA Diam: 2.80 2.7-3.8/3.0-4.0 cm LAIDs Index: 1.22 1.5-2.3 cm/m2 LV Mass: 97.91 67-162/88-224 g LV Mass Index: 42.75 43-95/49-115 g/m2 LVOT Diam: 2.00 3.0+(-)1.3 cm 2D Systolic Function EF 4C: 55.60 >55% EF 2C: 70.70 >55% EF BiP: 64.50 >55% Mitral Valve MV Pk E: 0.51 MV PK A: 0.70 MV Decel Time: 158.00 E/A: 0.70 E'Lateral: 7.83 E'Medial: 5.11 E/E' Med: 10.00 E/E' Lat: 6.50 PHT: 46.00 MVA PHT: 4.78 Decel [place]: 3.24 Aortic Valve AoV Pk Star: 1.12 AoV Mn Star: 0.76 AoV VTI: 0.19 AoV Pk Grad: 5.00 Aov Mn Grad: 3.00 MARSHAL Cont.VTI: 2.38 LVOT LVOT Pk Star: 0.96 LVOT Mn Star: 0.64 LVOT VTI: 0.14 LVOT Pk Grad: 4.00 LVOT Mn Grad: 2.00 LVOT Diam: 2.00 LVOT Area: 3.14 Diastolic Function MV Pk E: 0.51 MV Pk A: 0.70 E/A: 0.70 E'Medial: 5.11 E/E' Med: 10.00 E' Laterial: 7.83 E/E' Lat: 6.50 Right Ventricle TAPSE (mm): 11.20 TVS' Star: 9.68 Tricuspid Valve RA Press: 8.00 Great Vessels Aorta Sinus of Valsalva: 2.80 2.0-3.5 cm Ao Asc: 3.20 2.1-3.4 cm Pulmonary Valve PV Pk Star: 0.76 Peak PV Grad: 2.00 Updated in Other Vendor System with Status of Final Jean Steel MD electronically signed on 06/27/2022 12:41:11 PM with status of Final
== END ==
LOC: HO.CARD 10:09
PROVIDERS: PCP Internal Medicine; Visit Provider Internal Medicine Pulmonary Disease
DX: R06.01 Orthopnea (principal)
CPT/HCPCS: 93306; Q9957

== ENCOUNTER → 2022-06-29 09:31 | Outpatient (BNVA) | payer OTHER, SELFPAY | PROVIDERS: PCP Internal Medicine; Visit Provider Anesthesiology | DX: M47.819 Spondylosis without myelopathy or radiculopathy, site unspecified (principal); M47.816 Spondylosis without myelopathy or radiculopathy, lumbar region; M51.36 Other intervertebral disc degeneration, lumbar region; G89.4 Chronic pain syndrome; M47.812 Spondylosis without myelopathy or radiculopathy, cervical region; M50.30 Other cervical disc degeneration, unspecified cervical region | CPT/HCPCS: 99212 ==

== ENCOUNTER 2022-07-03 08:00 | Outpatient (REF) | payer OTHER, SELFPAY | END 2022-07-03 08:01 | disposition home or self-care (01) | LOC: HO.HOSX 08:00 | PROVIDERS: Visit Provider Physician Assistant | DX: Z13.89 Encounter for screening for other disorder (principal) ==

== ENCOUNTER 2022-07-03 17:36 | Inpatient (IN) | payer OTHER, SELFPAY ==
--- NOTE | ~2022-07-03 | US_ITS ---
EXAMINATION: US ABDOMEN LIMITED CLINICAL INFORMATION: Abdominal pain. COMPARISON: CT scan of the abdomen and pelvis dated 07/03/2022. TECHNIQUE: Real-time imaging of the right upper quadrant abdominal viscera. FINDINGS: PANCREAS: Visualized portions unremarkable. LIVER: Diffuse increased echotexture without focal abnormality. GALLBLADDER: Status post cholecystectomy. COMMON BILE DUCT: Normal in caliber measuring 0.3 cm in diameter. FREE FLUID: None. US/US abdomen limited IMPRESSION: 1. Hepatic steatosis without focal abnormality. 2. No biliary ductal dilatation.
--- NOTE | ~2022-07-03 | CT_ITS ---
EXAMINATION: CT ABDOMEN AND PELVIS WITHOUT CONTRAST CLINICAL INFORMATION: Nausea and vomiting. COMPARISON: CT scan abdomen pelvis 06/02/2022 TECHNIQUE: Multidetector volumetric imaging was performed from the superior aspect of the liver through the pubic symphysis. Sagittal and coronal reformatted images were obtained on the technologist's workstation. This CT examination was performed using dose optimization techniques as appropriate, variously including the following: *Automated exposure control *Adjustment of mA and/or kV according to patient size (this includes techniques or standardized protocols for targeted exams where dose is matched to indication/reason for exam; i.e. extremities or head) *Use of iterative reconstruction technique DLP: 993 mGy-cm FINDINGS: LUNG BASES: Asymmetric elevation of right diaphragm above the left. Linear atelectasis at the right lung base above the diaphragm. There is no pleural effusion. LIVER, GALLBLADDER, AND BILIARY TREE: Low attenuation of liver parenchyma due to fatty change. No focal liver lesion or intrahepatic bile duct dilatation. Right lobe liver measures 21 cm superior inferior. Mildly enlarged. Status post cholecystectomy. The dilatation of the bile duct. CBD measuring 6 mm. No calcified stone in the bile duct. PANCREAS: Unremarkable. SPLEEN: Unremarkable. ADRENAL GLANDS: Unremarkable. KIDNEYS AND URETERS: The kidneys are normal in size, shape, and attenuation. No hydronephrosis, hydroureter, or calculi seen. No perinephric stranding. BLADDER: Unremarkable. GASTROINTESTINAL TRACT: The small and large bowel are unremarkable. The appendix is unremarkable. ABDOMINAL WALL: No significant hernia is appreciated. LYMPH NODES: Normal. VASCULAR: Unremarkable. PELVIC VISCERA: Unremarkable. OSSEOUS STRUCTURES: Vacuum disc phenomenon L5-S1. Degenerative endplate spurring of the thoracic vertebrae. No acute osseous abnormality. CT/CT abdomen pelvis wo IV con IMPRESSION: 1. No acute abnormality. 2. Hepatomegaly with diffuse fatty change of liver. Fleischner guidelines were followed.
--- NOTE | ~2022-07-03 | XR_ITS ---
EXAMINATION: XR CHEST CLINICAL INFORMATION: Shortness of breath COMPARISON: Previous chest x-ray and chest CT 06/23/2022 TECHNIQUE: Frontal view of the chest was obtained. FINDINGS: The cardiac and mediastinal contours are stable. The lung volumes are low. There is elevation of the right hemidiaphragm. There is atelectasis at the right lung base. Findings are unchanged. The left lung is clear. There is no pleural effusion or pneumothorax. Visualized bony structures are unremarkable. XR/XR chest 1V IMPRESSION: No evidence for acute disease in the chest. Low lung volumes, elevated right hemidiaphragm and atelectasis at the right lung base similar to previous exams.
--- NOTE | ~2022-07-03 | XR_ITS ---
EXAMINATION: XR CHEST CLINICAL INFORMATION: Dry cough COMPARISON: Examination of 2 days previous. TECHNIQUE: AP upright portable view of the chest was obtained. 0915 hours. FINDINGS: Elevation of the right diaphragm again observed. Atelectatic change previously seen at the right base appears to be slightly to mildly improved. Pulmonary vascularity appears to be stable. No new left-sided consolidations. XR/XR chest 1V IMPRESSION: Atelectasis previously seen at the right base slightly to mildly improved. Elevated right diaphragm. No other significant changes.
[2022-07-03 17:43] VITALS: BP 190/91; PULSE 114; RESP 18; TEMP 37.2; O2SAT 98; BMI 42.0
[2022-07-03 18:07] LABS: MANUAL DIFF FLAG NO
[2022-07-03 18:23] LABS: Basophils Percent Auto 0.3 % (0-2); Eosinophils Percent Auto 0.2 % (0-4); Hematocrit 46.6 % (37.0-47.0); Imm Gran Abs Auto 0.08 X10*3/uL (0.00-0.03); Imm Gran Pct Auto 0.5 % (0.0-0.4); Mean Corpuscular Hemoglobin 22.4 pg (27.0-33.0); Mean Corpuscular Volume 74.4 fL (80.0-98.0); Mean Platelet Volume 10.9 fL (9.4-12.3); Monocytes Absolute Auto 0.4 X10*3/uL (0.1-1.2); Monocytes Percent Auto 2.6 % (2-11); Neutrophils Absolute Auto 12.5 x10*3/uL (2.0-8.3); Neutrophils Percent Auto 83.4 % (45-73); Platelet Count 357 X10*3/uL (160-400); Red Blood Count 6.26 X10*6/uL (4.20-5.50); Red Cell Distribution Width 17.9 % (11.0-16.0)
[2022-07-03 18:34] LABS: Alanine Aminotransferase 34 U/L (0-31); Albumin Level 4.7 g/dL (3.5-5.0); Alkaline Phosphatase 138 U/L (39-117); Aspartate Amino Transferase 25 U/L (5-31); Bilirubin Direct 0.3 mg/dL (0.0-0.5); Bilirubin Total 0.8 mg/dL (0.0-1.0); Blood Urea Nitrogen 17 mg/dL (9-16); Calcium 10.3 mg/dL (8.4-10.2); Creatinine Clr Calc Pharmacy 80.8; Estimated Glomerular Filt Rate 54; Glucose Random 256 mg/dL (60-115); Lipase 181 U/L (8-78); Total Protein 8.5 g/dL (6.5-8.0)
--- NOTE | 2022-07-03 18:43 | ED_ITS ---
HPI - Nausea/Vomiting/Diarrhea General Chief complaint: Abdominal Pain <Uma YangMIKAYLA - Last Filed: 07/03/22 22:08> Stated complaint: vomitting, abd pain <Uma YangMIKAYLA - Last Filed: 07/03/22 22:08> Time Seen by Provider: 07/03/22 18:34 <Uma HarkinsMIKAYLA khan - Last Filed: 07/03/22 22:08> Source: patient <Uma YangMIKAYLA - Last Filed: 07/03/22 22:08> Mode of arrival: ambulatory <Uma YangMIKAYLA - Last Filed: 07/03/22 22:08> Limitations: no limitations <Uma YangMIKAYLA - Last Filed: 07/03/22 22:08> History of Present Illness HPI Narrative: Patient presents emergency department for evaluation of intractable nausea and vomiting. Reports onset of symptoms to be last night. She states that this is consistent with her gastroparesis. She states that she has been taking Reglan 3 times daily for the past month which has significantly helped her nausea and vomiting. However, she has been able to take the Reglan today due to her vomiting. She denies associated abdominal pain. Denies any fevers, chills, chest pain, palpitations, shortness of breath, difficulty breathing, dysuria, u rinary frequency/urgency/hesitancy. She does endorse diarrhea as well which she has chronically varying with bouts of constipation. She is followed by gastroenterology. Was advised by her electrical drafter to come to the emergency department today for evaluation. Denies any past history of bowel obstruction. <Uma HarkinsMIKAYLA khan - Last Filed: 07/03/22 22:08> Related Data Home medications: Home Medications Medication Instructions Recorded Confirmed vaporizers #1 ea 10/10/20 04/09/22 zolpidem 10 mg tablet 10 mg PO BEDTIME PRN Insomnia 05/08/21 05/08/22 clonidine HCl 0.1 mg tablet 0.1 mg PO DAILY 09/19/21 05/08/22 lorazepam 0.5 mg tablet 0.5 mg PO DAILY PRN Anxiety 04/09/22 05/08/22 mirtazapine 15 mg tablet 15 mg PO BEDTIME insomnia 04/09/22 05/08/22 prochlorperazine maleate 10 mg 10 mg PO Q8H PRN unknown 04/09/22 05/08/22 tablet mirtazapine 30 mg tablet 30 mg PO BEDTIME 06/23/22 Previous Rx's Medication Instructions Recorded blood pressure test kit-wrist #1 ea 09/13/20 (Blood Pressure Unit-Wrist kit) lancets 28 gauge (FreeStyle #100 ea 05/23/21 Lancets) blood-glucose meter (FreeStyle #1 ea 09/16/21 Lite Meter kit) lancets 28 gauge (FreeStyle #100 ea 11/12/21 Lancets) metformin 500 mg tablet 500 mg PO BID #180 tabs 11/15/21 diabetic supplies, Values of ncellan. #1 ea 12/03/21 flash glucose sensor (FreeStyle #1 ea 12/03/21 Julianne 2 Sensor kit) heating pads #1 ea 01/21/22 sennosides 8.6 mg tablet (senna) 17.2 mg PO BEDTIME #60 tabs 01/26/22 Gel mattress overlay #1 ea 01/28/22 cyclobenzaprine 10 mg tablet 10 mg PO Q8H PRN Muscle spasm #14 02/06/22 tabs albuterol sulfate 2.5 mg/3 mL 2.5 mg (3 mL) inhalation TID PRN 02/10/22 (0.083 %) solution for nebulization shortness of breath or wheezing 1 month #180 mL Toilet seat riser #1 ea 03/05/22 walker #1 ea 03/05/22 acetaminophen 500 mg tablet 500 mg PO Q6H PRN fever or pain 30 03/10/22 (Tylenol Extra Strength) days #120 tabs blood pressure monitor #1 ea 03/10/22 miscellaneous medical supply #1 ea 03/10/22 amlodipine 10 mg tablet 10 mg PO DAILY #90 tabs 03/12/22 atorvastatin 10 mg tablet 10 mg PO BEDTIME 90 days #90 tabs 03/16/22 tizanidine 4 mg tablet 4 mg PO BEDTIME PRN muscle 03/16/22 spasticity 7 days #7 tabs ergocalciferol (vitamin D2) 1,250 1,250 mcg PO QWEEK 90 days #13 caps 04/08/22 mcg (50,000 unit) capsule albuterol sulfate 90 mcg/actuation 2 puff inhalation Q6H PRN 04/09/22 aerosol inhaler (Ventolin HFA) shortness of breath or wheezing 30 days #6.7 grams ferrous sulfate 325 mg (65 mg 325 mg PO DAILY 90 days #90 tabs 04/09/22 iron) tablet pen needle, diabetic 31 gauge x #100 ea 04/10/22 3/16 (BD Ultra-Fine Mini Pen Needle) insulin syringe-needle U-100 0.5 #100 ea 04/13/22 mL 31 gauge x 5/16 (BD Insulin Syringe Ultra-Fine) pyridoxine (vitamin B6) 100 mg 100 mg PO DAILY 90 days #90 tabs 04/20/22 tablet dulaglutide 0.75 mg/0.5 mL 0.75 mg (0.5 mL) subcut QWEEK #2 mL 04/30/22 subcutaneous pen injector (Trulicity) diabetic shoes and inserts #1 ea 05/06/22 ondansetron 4 mg disintegrating 4 mg PO Q6-8H PRN nausea and 05/07/22 tablet vomiting #14 tabs Shower Chair #1 ea 05/11/22 oxycodone 5 mg capsule 5 mg PO TID PRN moderate pain 05/11/22 (scale score 5-6) #14 caps tzkzdp-jgqjtqtn-[id number] 1 cap PO QID 30 days #120 caps 05/12/22 24,000-76,000-120,000 unit capsule,delayed rel (Creon) metoclopramide HCl 5 mg tablet 5 mg PO TIDAC #90 tabs 05/12/22 (Reglan) pantoprazole 40 mg tablet,delayed 40 mg PO DAILY 30 days #30 tabs 05/12/22 release (Protonix) guaifenesin 600 mg tablet, 600 mg PO Q12H PRN congestion 5 05/25/22 extended release 12 hr (Mucinex) days #10 tabs benzonatate 100 mg capsule 100 mg PO TID PRN cough 7 days #21 05/27/22 caps meclizine 25 mg tablet 25 mg PO TID PRN dizziness 30 days 05/27/22 #90 tabs fluticasone propionate 230 2 puff inhalation Q12H 30 days #1 05/29/22 mcg-salmeterol 21 mcg/actuation ea HFA inhaler (Advair HFA) furosemide 40 mg tablet 60 mg PO QAM 30 days #45 tabs 05/29/22 blood sugar diagnostic (FreeStyle #100 ea 06/01/22 Lite Strips) clotrimazole 1 % topical cream 1 appl topical BID 4 weeks #30 06/04/22 grams levofloxacin 750 mg tablet 750 mg PO DAILY 7 days #7 tabs 06/04/22 metoprolol tartrate 50 mg tablet 50 mg PO BID 3 months #180 tabs 06/07/22 hydroxyzine HCl 25 mg tablet 25 mg PO BID PRN itching #10 tabs 06/10/22 lidocaine 4 % topical cream 1 appl topical BID PRN pain #30 06/10/22 grams sumatriptan succinate 25 mg tablet See Rx Instructions PO .COMPLEX 06/16/22 #14 tabs levothyroxine 112 mcg tablet 112 mcg PO DAILY 90 days #90 tabs 06/21/22 furosemide 40 mg tablet (Lasix) 40 mg PO BID #20 tabs 06/23/22 duloxetine 60 mg capsule,delayed 60 mg PO DAILY 90 days #90 caps 06/29/22 release gabapentin 800 mg tablet 800 mg PO TID 30 days #90 tabs 06/29/22 insulin lispro 100 unit/mL 5 unit (0.05 mL) subcut TID 30 07/01/22 subcutaneous solution (Humalog days #4.5 mL U-100 Insulin) <Uma Yang CNP - Last Filed: 07/03/22 22:08> Allergies/Adverse reactions: Allergies Allergy/AdvReac Type Severity Reaction Status Date / Time Penicillins Allergy Severe swelling Verified 06/29/22 09:43 adhesive tape [ADHESIVE TAPE] Allergy Intermediate RASH Verified 06/29/22 09:43 amoxicillin [AMOXICILLIN] Allergy Intermediate RASH,SWELLING, Verified 06/29/22 09:43 RASH/SWELLING latex Allergy Intermediate Rash Verified 06/29/22 09:43 Motrin Allergy Intermediate hypertensio Verified 06/29/22 09:43 n <Uma Yang CNP - Last Filed: 07/03/22 22:08> Review of Systems Review of Systems: Constitutional : No Weight loss, No Fever, No Chills ENT/Mouth :? No sore throat, No Rhinorrhea Eyes: No Swelling, No Redness Cardiovascular : No Chest Pain, No SOB, No Edema Respiratory : No Cough, No Sputum, No Wheezing Gastrointestinal : Positive Nausea, Positive Vomiting, positive Diarrhea, positive abdominal pain, No Hematochezia, No Melena Genitourinary : No Dysuria, No Urinary Frequency, No Hematuria, No Urgency? Musculoskeletal : No joint pain, No Myalgias, No Joint Swelling Skin : No Skin Lesions, No rash Neuro : No Weakness, No Numbness, No Dizziness, No Headache Psych : No Anxiety/Panic, No Depression Heme/Lymph: No Bruising, No Lymphadenopathy Endocrine : No Polyuria, No Polydipsia <Uma Yang CNP - Last Filed: 07/03/22 22:08> Yes all other systems are reviewed and are negative <Uma Yang CNP - Last Filed: 07/03/22 22:08> [facility] Past Medical History Attestation statement: The following information was validated with the patient. <Uma Yang CNP - Last Filed: 07/03/22 22:08> Source: old records reviewed <Uma Yang CNP - Last Filed: 07/03/22 22:08> Medical History: Medical History Arthropathy of facet joint Asthma Bilateral shoulder pain Chronic idiopathic constipation Chronic pain (Unknown) Chronic pain syndrome Degeneration, intervertebral disc, cervical Diabetes mellitus Disc degeneration, lumbar Fibromyalgia LUDY (generalized anxiety disorder) Goiter Hyperlipidemia LDL goal <70 Hypothyroidism Incontinence Insomnia Left knee pain Lumbar pain Moderately severe recurrent major depression Morbid (severe) obesity due to excess calories Multiple air fluid levels of small intestine determined by X-ray Renal calculi Sleep apnea Small bowel motility disorder Spondylosis of cervical spine at multiple levels without myelopathy Spondylosis of cervical spine at multiple levels without myelopathy Spondylosis of lumbar region without myelopathy or radiculopathy <Uma Yang CNP - Last Filed: 07/03/22 22:08> Surgical History: Surgical History Delivery by section History of cholecystectomy History of esophagogastroduodenoscopy (EGD) History of hernia surgery History of hysterectomy History of knee replacement procedure of right knee Hx of colonoscopy <Uma Yang CNP - Last Filed: 07/03/22 22:08> Family History Family History: Family History Father Past heart attack Anxiety Mother MOF (multiple organ failure) Brother HIV (human immunodeficiency virus infection) Sister Ovarian cancer Lupus Bone cancer Uterine cancer Tumor Daughter Guillain-Oracle Sister Lupus History of open heart surgery Family/Other Depression FH: mental illness Maternal Aunt Breast cancer Maternal Aunt Tumor <Uma Yang CNP - Last Filed: 07/03/22 22:08> Social History Social History: Social History Household Members: None Household Members Other:: Housing: Apartment Are you a primary ambulatory care nurse to a significant other at home: No Do you presently have visiting nurse or other home services: Yes (contract paralegal) Alcohol intake: never Patient Tobacco Use Status: Never used Tobacco e-Cigarette/Vaping Use: Never Used Second Hand Smoke Exposure: Yes Use of substances other than those prescribed or required for medical reasons: No Advance Directives: Yes Advance Directives on File: Yes Advance Directives Date on File: 12/08/21 Patient : No service: No Current occupational status: unemployed and disabled Cognitive needs: No Hearing needs: No Vision needs: No <Uma Yang CNP - Last Filed: 07/03/22 22:08> Physical Exam Vital Signs: Vital Signs: Last Vital Signs Temp 98.5 F 07/04/22 00:59 Pulse 112 H 07/04/22 00:59 Resp 24 H 07/04/22 00:59 BP 163/77 H 07/04/22 00:59 Pulse Ox 94 07/04/22 00:59 O2 Del Method 07/04/22 00:59 BMI result Body Mass Index 42.0 <Uma Yang CNP - Last Filed: 07/03/22 22:08> Vital Signs: Last Vital Signs Temp 98.5 F 07/04/22 00:59 Pulse 112 H 07/04/22 00:59 Resp 24 H 07/04/22 00:59 BP 163/77 H 07/04/22 00:59 Pulse Ox 94 07/04/22 00:59 O2 Del Method 07/04/22 00:59 BMI result Body Mass Index 42.0 <Opal Brandon NP - Last Filed: 07/04/22 01:29> Appearance: Alert.?Oriented to person, place and time. No acute distress.?Normal affect. Eyes: Pupils equal, round and reactive to light.? ENT: Pharynx normal.?? Neck: Normal inspection.? Neck supple.?? CVS: Heart sounds normal. Normal heart rate and rhythm.? Pulses normal.?? Respiratory: No respiratory distress.? Lung sounds clear to auscultation bilaterally?? Abdomen: Soft and non-tender. Normoactive bowel sounds. No pulsatile mass.?? Skin: Skin warm and dry.? Normal skin color.? Extremities: No lower extremity edema.? Neuro: Moves all extremities spontaneously. Sensation intact bilaterally. CN II- XII intact. No focal neuro deficits. Ambulates with normal steady gait. <Uma Yang CNP - Last Filed: 07/03/22 22:08> Course Course Course Narrative: Patient is a 57-year-old female with a past medical history of type 2 diabetes with gastroparesis, chronic constipation with variable episodes of diarrhea, hypothyroidism, fibromyalgia, anxiety, hyperlipidemia, asthma, and hysterectomy. Presents emergency department for evaluation of intractable nausea and vomiting since last night. Denies any take out food or abnormal food from her baseline diet. Has been unable to take her Reglan today. Abdominal exam was benign. No associated pain. She is afebrile. She is tachycardic but I suspect that this is secondary to vomiting as well as her anxiety. Will obtain CBC to evaluate for leukocytosis/ anemia, CMP and lipase to evaluate for abnormal electrolytes /abnormal renal function/ abnormal hepatic/biliary function, and Urinalysis. <Uma Yang CNP - Last Filed: 07/03/22 22:08> Reevaluation(s) Reevaluation #1: CBC indicates leukocytosis at 15.0, at this time suspect that this is reactive secondary to her vomiting as well as the tachycardia. Do not suspect sepsis or infection at this time. Nausea and vomiting is most likely secondary to her gastroparesis. CMP is overall unremarkable, mildly elevated ALT and Alk phos. Lipase is elevated at 181 which is up trending from prior levels obtained in May. At this time have a lower suspicion for acute pancreatitis or cholecystitis, however will obtain CT of the abdomen and pelvis to exclude. <Uma Yang CNP - Last Filed: 07/03/22 22:08> Time: 19:02 <Uma Yang CNP - Last Filed: 07/03/22 22:08> Reevaluation #2: CT reveals no acute intra-abdominal pathology. Patient continues to report persistent nausea and epigastric pressure. Will trial Compazine for nausea at this time, in addition to IV fluids. Patient signed out to Rossana Brandon NP pending re-evaluation <Uma Yang CNP - Last Filed: 07/03/22 22:08> Reevaluation #3: 01:25 review of records indicates that patient meets sepsis criteria. Patient does have a UTI. Fluids started at 21:00 by this ELECTRONIC CALIBRATION TECHNICIAN. Order for ceftriaxone, lactic, cultures. I did discuss this case with hospitalist, plan of care is to admit for sepsis UTI. <Opal Brandon NP - Last Filed: 07/04/22 01:29> MDM - Nausea/Vomiting/Diarrhea Medical Records Attestation: I reviewed the patient's medical records. <Uma Yang CNP - Last Filed: 07/03/22 22:08> Lab Data Attestation: I reviewed the patient's lab results. <Uma Yang CNP - Last Filed: 07/03/22 22:08> Result diagrams: : 07/03/22 17:49 07/03/22 17:49 <Uma Yang CNP - Last Filed: 07/03/22 22:08> Labs: Lab Results 07/03/22 07/03/22 07/03/22 Range/Units 17:49 17:49 19:03 WBC 15.0 H (4.8-10.8) X10*3/uL RBC 6.26 H (4.20-5.50) X10*6/uL Hgb 14.0 (12.0-16.0) g/dl Hct 46.6 (37.0-47.0) % MCV 74.4 L (80.0-98.0) fL MCH 22.4 L (27.0-33.0) pg MCHC 30.0 L (31.0-35.0) g/dl RDW 17.9 H (11.0-16.0) % Plt Count 357 (160-400) X10*3/uL MPV 10.9 (9.4-12.3) fL Immature Gran % (Auto) 0.5 H (0.0-0.4) % Neut % (Auto) 83.4 H (45-73) % Lymph % (Auto) 13.0 L (20-40) % Harnett % (Auto) 2.6 (2-11) % Eos % (Auto) 0.2 (0-4) % Baso % (Auto) 0.3 (0-2) % Lymph # (Auto) 2.0 (1.2-4.9) X10*3/uL Harnett # (Auto) 0.4 (0.1-1.2) X10*3/uL Eos # (Auto) 0.0 (0.0-0.4) X10*3/uL Baso # (Auto) 0.0 (0.0-0.2) X10*3/uL Abs Immat Gran (auto) 0.08 H (0.00-0.03) X10*3/uL Absolute Neuts (auto) 12.5 H (2.0-8.3) x10*3/uL Absolute Nucleated RBC 0.000 (0.0-0.012) X10*3/uL Nucleated RBC % (auto) 0.0 (0.0-0.2) /100WBC Sodium 140 (135-145) mmol/L Potassium 4.2 (3.3-5.1) mmol/L Chloride 98 (96-108) mmol/L Carbon Dioxide 22 (22-29) mmol/L Anion Gap 24 H (12-20) BUN 17 H (9-16) mg/dL Creatinine 1.05 (0.5-1.4) mg/dL Estim Creat Clear Calc 80.8 Estimated GFR 54 Random Glucose 256 H (60-115) mg/dL Calcium 10.3 H (8.4-10.2) mg/dL Total Bilirubin 0.8 (0.0-1.0) mg/dL Direct Bilirubin 0.3 (0.0-0.5) mg/dL AST 25 (5-31) U/L ALT 34 H (0-31) U/L Alkaline Phosphatase 138 H (39-117) U/L Total Protein 8.5 H (6.5-8.0) g/dL Albumin 4.7 (3.5-5.0) g/dL Lipase 181 H (8-78) U/L Urine Color Urine Appearance Urine pH (5.0-9.0) Ur Specific [place] (1.005-1.025) Urine Protein (Neg-Trace) mg/dL Urine Glucose (UA) (Negative) mg/dL Urine Ketones (Negative) mg/dL Urine Blood (Negative) Urine Nitrite (Negative) Ur Leukocyte Esterase (Negative) Urine RBC (0-2) /HPF Urine WBC (0-5) /HPF Ur Squamous Epith Cells (0-2) /HPF Urine Bacteria (None Seen) Hyaline Casts (0-2) /LPF COVID-19 ([facility]) Negative (Negative) COVID-19 Clin Com See Note 07/03/22 Range/Units 21:43 WBC (4.8-10.8) X10*3/uL RBC (4.20-5.50) X10*6/uL Hgb (12.0-16.0) g/dl Hct (37.0-47.0) % MCV (80.0-98.0) fL MCH (27.0-33.0) pg MCHC (31.0-35.0) g/dl RDW (11.0-16.0) % Plt Count (160-400) X10*3/uL MPV (9.4-12.3) fL Immature Gran % (Auto) (0.0-0.4) % Neut % (Auto) (45-73) % Lymph % (Auto) (20-40) % Harnett % (Auto) (2-11) % Eos % (Auto) (0-4) % Baso % (Auto) (0-2) % Lymph # (Auto) (1.2-4.9) X10*3/uL Harnett # (Auto) (0.1-1.2) X10*3/uL Eos # (Auto) (0.0-0.4) X10*3/uL Baso # (Auto) (0.0-0.2) X10*3/uL Abs Immat Gran (auto) (0.00-0.03) X10*3/uL Absolute Neuts (auto) (2.0-8.3) x10*3/uL Absolute Nucleated RBC (0.0-0.012) X10*3/uL Nucleated RBC % (auto) (0.0-0.2) /100WBC Sodium (135-145) mmol/L Potassium (3.3-5.1) mmol/L Chloride (96-108) mmol/L Carbon Dioxide (22-29) mmol/L Anion Gap (12-20) BUN (9-16) mg/dL Creatinine (0.5-1.4) mg/dL Estim Creat Clear Calc Estimated GFR Random Glucose (60-115) mg/dL Calcium (8.4-10.2) mg/dL Total Bilirubin (0.0-1.0) mg/dL Direct Bilirubin (0.0-0.5) mg/dL AST (5-31) U/L ALT (0-31) U/L Alkaline Phosphatase (39-117) U/L Total Protein (6.5-8.0) g/dL Albumin (3.5-5.0) g/dL Lipase (8-78) U/L Urine Color Dark Yellow Urine Appearance Cloudy Urine pH 5.5 (5.0-9.0) Ur Specific [place] 1.025 (1.005-1.025) Urine Protein 100 (2+) H (Neg-Trace) mg/dL Urine Glucose (UA) Negative (Negative) mg/dL Urine Ketones 40 (Negative) mg/dL Urine Blood Negative (Negative) Urine Nitrite Negative (Negative) Ur Leukocyte Esterase Trace H (Negative) Urine RBC 3-5 H (0-2) /HPF Urine WBC 0-5 (0-5) /HPF Ur Squamous Epith Cells >20 (0-2) /HPF Urine Bacteria 4+ (None Seen) Hyaline Casts 6-10 (0-2) /LPF COVID-19 ([facility]) (Negative) COVID-19 Clin Com <Uma Yang, MIKAYLA - Last Filed: 09/30/22 22:08> Lab Results 07/03/22 07/03/22 07/03/22 Range/Units 17:49 17:49 19:03 WBC 15.0 H (4.8-10.8) X10*3/uL RBC 6.26 H (4.20-5.50) X10*6/uL Hgb 14.0 (12.0-16.0) g/dl Hct 46.6 (37.0-47.0) % MCV 74.4 L (80.0-98.0) fL MCH 22.4 L (27.0-33.0) pg MCHC 30.0 L (31.0-35.0) g/dl RDW 17.9 H (11.0-16.0) % Plt Count 357 (160-400) X10*3/uL MPV 10.9 (9.4-12.3) fL Immature Gran % (Auto) 0.5 H (0.0-0.4) % Neut % (Auto) 83.4 H (45-73) % Lymph % (Auto) 13.0 L (20-40) % Harnett % (Auto) 2.6 (2-11) % Eos % (Auto) 0.2 (0-4) % Baso % (Auto) 0.3 (0-2) % Lymph # (Auto) 2.0 (1.2-4.9) X10*3/uL [place]arnett # (Auto) 0.4 (0.1-1.2) X10*3/uL Eos # (Auto) 0.0 (0.0-0.4) X10*3/uL Baso # (Auto) 0.0 (0.0-0.2) X10*3/uL Abs Immat Gran (auto) 0.08 H (0.00-0.03) X10*3/uL Absolute Neuts (auto) 12.5 H (2.0-8.3) x10*3/uL Absolute Nucleated RBC 0.000 (0.0-0.012) X10*3/uL Nucleated RBC % (auto) 0.0 (0.0-0.2) /100WBC Sodium 140 (135-145) mmol/L Potassium 4.2 (3.3-5.1) mmol/L Chloride 98 (96-108) mmol/L Carbon Dioxide 22 (22-29) mmol/L Anion Gap 24 H (12-20) BUN 17 H (9-16) mg/dL Creatinine 1.05 (0.5-1.4) mg/dL Estim Creat Clear Calc 80.8 Estimated GFR 54 Random Glucose 256 H (60-115) mg/dL Calcium 10.3 H (8.4-10.2) mg/dL Total Bilirubin 0.8 (0.0-1.0) mg/dL Direct Bilirubin 0.3 (0.0-0.5) mg/dL AST 25 (5-31) U/L ALT 34 H (0-31) U/L Alkaline Phosphatase 138 H (39-117) U/L Total Protein 8.5 H (6.5-8.0) g/dL Albumin 4.7 (3.5-5.0) g/dL Lipase 181 H (8-78) U/L Urine Color Urine Appearance Urine pH (5.0-9.0) Ur Specific [place] (1.005-1.025) Urine Protein (Neg-Trace) mg/dL Urine Glucose (UA) (Negative) mg/dL Urine Ketones (Negative) mg/dL Urine Blood (Negative) Urine Nitrite (Negative) Ur Leukocyte Esterase (Negative) Urine RBC (0-2) /HPF Urine WBC (0-5) /HPF Ur Squamous Epith Cells (0-2) /HPF Urine Bacteria (None Seen) Hyaline Casts (0-2) /LPF COVID-19 ([facility]) Negative (Negative) COVID-19 Clin Com See Note 07/03/22 Range/Units 21:43 WBC (4.8-10.8) X10*3/uL RBC (4.20-5.50) X10*6/uL Hgb (12.0-16.0) g/dl Hct (37.0-47.0) % MCV (80.0-98.0) fL MCH (27.0-33.0) pg MCHC (31.0-35.0) g/dl RDW (11.0-16.0) % Plt Count (160-400) X10*3/uL MPV (9.4-12.3) fL Immature Gran % (Auto) (0.0-0.4) % Neut % (Auto) (45-73) % Lymph % (Auto) (20-40) % [place]ett % (Auto) (2-11) % Eos % (Auto) (0-4) % Baso % (Auto) (0-2) % Lymph # (Auto) (1.2-4.9) X10*3/uL [place] # (Auto) (0.1-1.2) X10*3/uL Eos # (Auto) (0.0-0.4) X10*3/uL Baso # (Auto) (0.0-0.2) X10*3/uL Abs Immat Gran (auto) (0.00-0.03) X10*3/uL Absolute Neuts (auto) (2.0-8.3) x10*3/uL Absolute Nucleated RBC (0.0-0.012) X10*3/uL Nucleated RBC % (auto) (0.0-0.2) /100WBC Sodium (135-145) mmol/L Potassium (3.3-5.1) mmol/L Chloride (96-108) mmol/L Carbon Dioxide (22-29) mmol/L Anion Gap (12-20) BUN (9-16) mg/dL Creatinine (0.5-1.4) mg/dL Estim Creat Clear Calc Estimated GFR Random Glucose (60-115) mg/dL Calcium (8.4-10.2) mg/dL Total Bilirubin (0.0-1.0) mg/dL Direct Bilirubin (0.0-0.5) mg/dL AST (5-31) U/L ALT (0-31) U/L Alkaline Phosphatase (39-117) U/L Total Protein (6.5-8.0) g/dL Albumin (3.5-5.0) g/dL Lipase (8-78) U/L Urine Color Dark Yellow Urine Appearance Cloudy Urine pH 5.5 (5.0-9.0) Ur Specific [place] 1.025 (1.005-1.025) Urine Protein 100 (2+) H (Neg-Trace) mg/dL Urine Glucose (UA) Negative (Negative) mg/dL Urine Ketones 40 (Negative) mg/dL Urine Blood Negative (Negative) Urine Nitrite Negative (Negative) Ur Leukocyte Esterase Trace H (Negative) Urine RBC 3-5 H (0-2) /HPF Urine WBC 0-5 (0-5) /HPF Ur Squamous Epith Cells >20 (0-2) /HPF Urine Bacteria 4+ (None Seen) Hyaline Casts 6-10 (0-2) /LPF COVID-19 ([facility]) (Negative) COVID-19 Clin Com <Opal Brandon NP - Last Filed: 07/04/22 01:29> Imaging Data CT scan - abdomen: Radiologist's impression: CT/CT abdomen pelvis wo IV con IMPRESSION: ? 1. No acute abnormality. 2. Hepatomegaly with diffuse fatty change of liver.? <Uma Yang CNP - Last Filed: 07/03/22 22:08> Discharge Plan Discharge Patient Disposition: Admitted As Inpatient <Uma Yang CNP - Last Filed: 07/03/22 22:08> Additional Instructions: Please continue taking your medications as prescribed. Please contact your electrical drafter for further follow-up. You may return to the emergency department any new or worsening symptoms or concerns <Uma Yang CNP - Last Filed: 07/03/22 22:08> Prescriptions: No Action (DME) lancets [FreeStyle Lancets] 28 gauge misc See Rx Instructions .Route Qty: 100 6RF Rx Instructions: BID (DME) lancets [FreeStyle Lancets] 28 gauge misc See Rx Instructions .Route Qty: 100 3RF Rx Instructions: Use 1 lancet once a day metformin 500 mg tablet 500 mg PO BID Qty: 180 2RF (DME) FreeStyle Julianne 2 Sensor Kit See Rx Instructions .Route Qty: 1 2RF Rx Instructions: As directed (DME) diabetic supplies, miscellan. Misc See Rx Instructions .Route Qty: 1 0RF Rx Instructions: As directed (DME) heating pads Pad See Rx Instructions .Route Qty: 1 0RF Rx Instructions: As directed sennosides [senna] 8.6 mg tablet 17.2 mg PO BEDTIME Qty: 60 3RF Hold Instructions: Doctor's Order (DME) Gel mattress overlay Misc See Rx Instructions .Route Qty: 1 0RF Rx Instructions: As directed albuterol sulfate 2.5 mg /3 mL (0.083 %) solution for nebulization 2.5 mg inhalation TID PRN (Reason: shortness of breath or wheezing) 30 Days Qty: 180 1RF (DME) Toilet seat riser See Rx Instructions .Route .MEDSUPPLY Qty: 1 0RF Rx Instructions: As directed (DME) walker [facility] [place] See Rx Instructions .Route Qty: 1 0RF Rx Instructions: As directed acetaminophen [Tylenol Extra Strength] 500 mg tablet 500 mg PO Q6H PRN (Reason: fever or pain) 30 Days Qty: 120 1RF (DME) miscellaneous medical supply [facility] [place] See Rx Instructions .ROUTE .MEDSUPPLY Qty: 1 0RF Rx Instructions: toilet seat elevator ([facility]) blood pressure monitor Kit See Rx Instructions .Route Qty: 1 0RF Rx Instructions: Use as needed amlodipine 10 mg tablet 10 mg PO DAILY Qty: 90 1RF ergocalciferol (vitamin D2) 1,250 mcg (50,000 unit) capsule 1,250 mcg PO QWEEK 90 Days Qty: 13 1RF (DME) pen needle, diabetic [BD Ultra-Fine Mini Pen Needle] 31 gauge x 3/16 needle See Rx Instructions .Route Qty: 100 0RF Rx Instructions: As directed ([facility]) insulin syringe-needle U-100 [BD Insulin Syringe Ultra-Fine] 0.5 mL 31 gauge x 5/16 syringe See Rx Instructions .Route Qty: 100 3RF Rx Instructions: Use 1 three times a day pyridoxine (vitamin B6) 100 mg tablet 100 mg PO DAILY 90 Days Qty: 90 1RF Trulicity 0.75 mg/0.5 mL pen injector 0.75 mg subcut QWEEK Qty: 2 2RF (DME) diabetic shoes and inserts See Rx Instructions .Route .MEDSUPPLY Qty: 1 1RF Rx Instructions: As directed ondansetron 4 mg tablet,disintegrating 4 mg PO Q6-8H PRN (Reason: nausea and vomiting) Qty: 14 0RF guaifenesin [Mucinex] 600 mg tablet extended release 12hr 600 mg PO Q12H PRN (Reason: congestion) 5 Days Qty: 10 0RF meclizine 25 mg tablet 25 mg PO TID PRN (Reason: dizziness) 30 Days Qty: 90 1RF benzonatate 100 mg capsule 100 mg PO TID PRN (Reason: cough) 7 Days Qty: 21 0RF (DME) FreeStyle Lite Strips Strip See Rx Instructions .Route Qty: 100 3RF Rx Instructions: use 1 test strip once a day levofloxacin 750 mg tablet 750 mg PO DAILY 7 Days Qty: 7 0RF clotrimazole 1 % cream 1 appl topical BID 28 Days Qty: 30 1RF metoprolol tartrate 50 mg tablet 50 mg PO BID 90 Days Qty: 180 1RF sumatriptan succinate 25 mg tablet See Rx Instructions PO .COMPLEX Qty: 14 0RF Rx Instructions: take 1 tab at onset of headache; if no relief may repeat 1 tab after at least 2 hrs; max = 4 tabs/24 hr PO levothyroxine 112 mcg tablet 112 mcg PO DAILY 90 Days Qty: 90 1RF gabapentin 800 mg tablet 800 mg PO TID 30 Days Qty: 90 0RF duloxetine 60 mg capsule,delayed release(DR/EC) 60 mg PO DAILY 90 Days Qty: 90 1RF insulin lispro [Humalog U-100 Insulin] 100 unit/mL solution 5 unit subcut TID 30 Days Qty: 4.5 2RF cyclobenzaprine 10 mg tablet 10 mg PO Q8H PRN (Reason: Muscle spasm) Qty: 14 0RF Hold Instructions: Doctor's Order oxycodone 5 mg capsule 5 mg PO TID PRN (Reason: moderate pain (scale score 5-6)) Qty: 14 0RF Rx Instructions: Partial Fill upon patient request. (DME) Shower Chair Misc See Rx Instructions .Route Qty: 1 0RF Rx Instructions: As directed furosemide [Lasix] 40 mg tablet 40 mg PO BID Qty: 20 0RF zolpidem 10 mg tablet 10 mg PO BEDTIME PRN (Reason: Insomnia) (DME) blood pressure test kit-wrist [Blood Pressure Unit-Wrist] Kit See Rx Instructions .ROUTE .MEDSUPPLY Qty: 1 0RF Rx Instructions: to check blood pressure (DME) vaporizers Misc See Rx Instructions .ROUTE .MEDSUPPLY Qty: 1 Rx Instructions: As directed (DME) blood-glucose meter [FreeStyle Lite Meter] Kit See Rx Instructions .Route Qty: 1 0RF Rx Instructions: As directed lorazepam 0.5 mg tablet 0.5 mg PO DAILY PRN (Reason: Anxiety) mirtazapine 15 mg tablet 15 mg PO BEDTIME prochlorperazine maleate 10 mg tablet 10 mg PO Q8H PRN (Reason: unknown) ferrous sulfate 325 mg (65 mg iron) tablet 325 mg PO DAILY 90 Days Qty: 90 1RF albuterol sulfate [Ventolin HFA] 90 mcg/actuation HFA aerosol inhaler 2 puff inhalation Q6H PRN (Reason: shortness of breath or wheezing) 30 Days Qty: 6.7 1RF hydroxyzine HCl 25 mg tablet 25 mg PO BID PRN (Reason: itching) Qty: 10 0RF lidocaine 4 % cream 1 appl topical BID PRN (Reason: pain) Qty: 30 1RF tizanidine 4 mg tablet 4 mg PO BEDTIME PRN (Reason: muscle spasticity) 7 Days Qty: 7 0RF atorvastatin 10 mg tablet 10 mg PO BEDTIME 90 Days Qty: 90 1RF clonidine HCl 0.1 mg tablet 0.1 mg PO DAILY mirtazapine 30 mg tablet 30 mg PO BEDTIME metoclopramide HCl [Reglan] 5 mg tablet 5 mg PO TIDAC Qty: 90 6RF pantoprazole [Protonix] 40 mg tablet,delayed release (DR/EC) 40 mg PO DAILY 30 Days Qty: 30 6RF Creon 24,000-76,000 -120,000 unit capsule,delayed release(DR/EC) 1 cap PO QID 30 Days Qty: 120 6RF Rx Instructions: administer with meals and/or snacks furosemide 40 mg tablet 60 mg PO QAM 30 Days Qty: 45 3RF Advair HFA 230-21 mcg/actuation HFA aerosol inhaler 2 puff inhalation Q12H 30 Days Qty: 1 6RF <Uma Yang CNP - Last Filed: 07/03/22 22:08>
[2022-07-03 18:46] LABS: Anion Gap 24 (12-20); Carbon Dioxide 22 mmol/L (22-29); Chloride 98 mmol/L (96-108); Potassium 4.2 mmol/L (3.3-5.1); Sodium 140 mmol/L (135-145)
[2022-07-03] MEDS: Metoclopramide HCl 10 MG/2 ML VIAL IVPUSH (19:24)
[2022-07-03 19:40] LABS: COVID-19 Test Negative (Negative); IDNOW Serial# 16C4AD1C
--- NOTE | 2022-07-03 20:15 | PC.NURSE ---
pt to ct scan
[2022-07-03 20:23] VITALS: BP 173/95; PULSE 112; RESP 21; O2SAT 96
[2022-07-03 21:50] LABS: Appearance Urine Cloudy; Color Urine Dark Yellow; Glucose Urine UA Negative (Negative); Leukocyte Esterase Urine Trace (Negative); Nitrite Urine Negative (Negative); PH 5.5 (5.0-9.0); Specific Gravity - Urine 1.025 (1.005-1.025); UMIC TRIGGER UACC YES; Urine Blood Negative (Negative); Urine Ketones 40 mg/dL (Negative); Urine Protein 100 (2+) mg/dL (Neg-Trace)
[2022-07-03 22:00] VITALS: BP 154/76; PULSE 101; RESP 18; TEMP 36.6; O2SAT 94
[2022-07-03] MEDS: Prochlorperazine Edisylate 10 MG/2 ML VIAL 5 MG IVPUSH (22:02)
[2022-07-03 22:07] LABS: Bacteria Urine 4+ (None Seen); Squamous Epithelial Cell Urine >20 /HPF (0-2); WBC Urine 0-5 /HPF (0-5)
[2022-07-03] MEDS: 0.9 % Sodium Chloride 1,000 ML 999 ML IVCONT (22:20)
--- NOTE | 2022-07-03 22:21 | PC.NURSE ---
patient a&ox3, ivf started per order, pt c/o abd pain 05/13- will notify provider, pt medicated for nausea, manager monitoring ST, vvs, will continue to monitor.
[2022-07-03 23:51] VITALS: BP 185/89; PULSE 114; RESP 24; O2SAT 95
[2022-07-04] VITALS (12 sets, daily range): BP systolic 144–190; BP diastolic 62–84; PULSE 92–125; RESP 16–24; TEMP 36.3–37.6; O2SAT 91–99
--- NOTE | 2022-07-04 | ECG_ITS ---
Test Reason : cp Blood Pressure : / mmHG Vent. Rate : 118 BPM Atrial Rate : 118 BPM P-R Int : 134 ms QRS Dur : 074 ms QT Int : 340 ms P-R-T Axes : 038 033 020 degrees QTc Int : 476 ms Poor data quality, interpretation may be adversely affected Sinus tachycardia Abnormal ECG When compared with ECG of 23-JUN-2022 14:49, Heart rate has increased Referred By: Sabine Bauman Electronically Signed By:CARLOS ARCEO
--- NOTE | 2022-07-04 01:09 | PC.NURSE ---
Pt. c/o SOB. SPO2 sats 94-96% on RA. Put pt. on 1L NC for comfort - pt. stating to this RN that feelings of SOB improved with 1L. notified
--- NOTE | 2022-07-04 01:50 | PC.NURSE ---
Collected first set of blood cultures, lactic, and SST5
[2022-07-04] MEDS: 0.9 % Sodium Chloride 1,000 ML 999 ML IVCONT (01:59)
[2022-07-04] MEDS: cefTRIAXone sodium 1 GM in 0.9 % Sodium Chloride 50 ML IV ×2 (01:59→05:27)
[2022-07-04 02:09] LABS: Lactic Acid 1.9 mmol/L (0.5-2.0)
[2022-07-04 02:20] LABS: Anion Gap 19 (12-20); Blood Urea Nitrogen 19 mg/dL (9-16); Calcium 9.6 mg/dL (8.4-10.2); Carbon Dioxide 25 mmol/L (22-29); Chloride 102 mmol/L (96-108); Creatinine Clr Calc Pharmacy 106.1; Estimated Glomerular Filt Rate > 60; Glucose Random 281 mg/dL (60-115); Potassium 3.7 mmol/L (3.3-5.1); Sodium 142 mmol/L (135-145)
--- NOTE | 2022-07-04 04:33 | PC.NURSE ---
Second attempt to reach provider. Pt. vomiting and with severe abd. pain. No PRNs available
--- NOTE | 2022-07-04 05:11 | PM.IMHP ---
History of Present Illness Date of Service: 07/04/22 Chief Complaint: Abd pain, N/V this is a 57-year-old female with extensive past medical history of hypothyroidism, HLD, obesity, anxiety disorder, diabetes, chronic pain, asthma, depression, small-bowel motility disorder, among others who presents to the hospital with complaints of intractable nausea vomiting. Patient reports that her symptoms started 2 days ago, she has Zofran p.o. at home, tried it for several times with no relief of her nausea or vomiting, therefore her PCP as heard to come to the ED. She is also complaining of epigastric pain that is radiating to the back, as well as to the right and left, Pain is constant, a out of 10, no relieving or exacerbating factors. she reports no fever or chills. No diarrhea constipation. She reports no chest pain. She has right flank pain. Not radiating. Constant. Which also started today's ago. Patient denies any urinary symptoms including no urinary frequency, urgency, or dysuria. She has no headache or change in vision, no numbness weakness or tingling, no extremity edema. On arrival to the ED patient vitals are significant for heart rate of 114, blood pressure of 190/91, satting 98% on room air Labs are significant for WBC count of 15, hemoglobin of 14, hematocrit 46.6, left shift, lipase of 181, She has elevated alk-phos of 138, as well as ALT of 34, bilirubin and AST are normal.UA that is positive for leukocyte Estrace and WBC, abdominal pelvic CT shows no acute abnormality although there is mention of dilatation of the bile duct with CBD measuring 6 mm. Patient started on fluids and IV antibiotics will be admitted for further management Review of Systems Review of Systems: Yes all other systems are reviewed and are negative [facility] Medical History Arthropathy of facet joint Asthma Bilateral shoulder pain Chronic idiopathic constipation Chronic pain (Unknown) Chronic pain syndrome Degeneration, intervertebral disc, cervical Diabetes mellitus Disc degeneration, lumbar Fibromyalgia LUDY (generalized anxiety disorder) Goiter Hyperlipidemia LDL goal <70 Hypothyroidism Incontinence Insomnia Left knee pain Lumbar pain Moderately severe recurrent major depression Morbid (severe) obesity due to excess calories Multiple air fluid levels of small intestine determined by X-ray Renal calculi Sleep apnea Small bowel motility disorder Spondylosis of cervical spine at multiple levels without myelopathy Spondylosis of cervical spine at multiple levels without myelopathy Spondylosis of lumbar region without myelopathy or radiculopathy Family History Father Past heart attack Anxiety Mother MOF (multiple organ failure) Brother HIV (human immunodeficiency virus infection) Sister Ovarian cancer Lupus Bone cancer Uterine cancer Tumor Daughter Guillain-[place] Sister Lupus History of open heart surgery Family/Other Depression FH: mental illness Maternal Aunt Breast cancer Maternal Aunt Tumor Surgical History Delivery by section History of cholecystectomy History of esophagogastroduodenoscopy (EGD) History of hernia surgery History of hysterectomy History of knee replacement procedure of right knee Hx of colonoscopy Social History Household Members: None Household Members Other:: Housing: Apartment Are you a primary critical care nurse practitioner to a significant other at home: No Do you presently have visiting nurse or other home services: Yes (special procedure technologist) Alcohol intake: never Patient Tobacco Use Status: Never used Tobacco e-Cigarette/Vaping Use: Never Used Second Hand Smoke Exposure: Yes Use of substances other than those prescribed or required for medical reasons: No Advance Directives: Yes Advance Directives on File: Yes Advance Directives Date on File: 12/08/21 Patient : No service: No Current occupational status: unemployed and disabled Cognitive needs: No Hearing needs: No Vision needs: No Meds Allergies Allergy/AdvReac Type Severity Reaction Status Date / Time Penicillins Allergy Severe swelling Verified 06/29/22 09:43 adhesive tape [ADHESIVE TAPE] Allergy Intermediate RASH Verified 06/29/22 09:43 amoxicillin [AMOXICILLIN] Allergy Intermediate RASH,SWELLING, Verified 06/29/22 09:43 RASH/SWELLING latex Allergy Intermediate Rash Verified 06/29/22 09:43 Motrin Allergy Intermediate hypertensio Verified 06/29/22 09:43 n Active Medications: Current Medications Acetaminophen (Acetaminophen 325 Mg Tablet) 650 mg PO Q6H PRN PRN Reason: Pain, Mild (Pain Scale 1-3) Docusate Sodium (Docusate Sodium 100 Mg Capsule) 100 mg PO DAILY PRN PRN Reason: Constipation Enoxaparin Sodium (Enoxaparin Sodium 40 Mg/0.4 Ml Syringe) 40 mg SUBCUT Q24H [facility] Ceftriaxone Sodium 1 gm/ (Sodium Chloride) 50 mls @ 100 mls/hr IV Q24H [facility] Lactated Ringer's (Lr) 1,000 mls @ 200 mls/hr IVCONT .Q5H [facility] Morphine Sulfate (Morphine Sulfate 4 Mg/Ml Cartridge) 4 mg IVPUSH Q4H PRN; Protocol PRN Reason: Pain, Severe (Pain Scale 7-10) Prochlorperazine Edisylate (Prochlorperazine Edisylate 10 Mg/2 Ml Vial) 5 mg IVPUSH Q4H PRN PRN Reason: Nausea and Vomiting Sodium Chloride (0.9 % Sodium Chloride Flush 3 Ml Syringe) 3 ml IVFLUSH QSHIFT [facility] Home Medications Medication Instructions Recorded Confirmed Last Taken Type vaporizers #1 ea 10/10/20 04/09/22 Unknown History zolpidem 10 mg tablet 10 mg PO BEDTIME PRN Insomnia 05/08/21 05/08/22 Unknown History clonidine HCl 0.1 mg tablet 0.1 mg PO DAILY 09/19/21 05/08/22 01/25/22 10:00 History lorazepam 0.5 mg tablet 0.5 mg PO DAILY PRN Anxiety 04/09/22 05/08/22 Unknown History mirtazapine 15 mg tablet 15 mg PO BEDTIME insomnia 04/09/22 05/08/22 Unknown History prochlorperazine maleate 10 mg 10 mg PO Q8H PRN unknown 04/09/22 05/08/22 Unknown History tablet mirtazapine 30 mg tablet 30 mg PO BEDTIME 06/23/22 Unknown History Physical Exam Vital Signs and Narrative: Vital Signs: Last Vital Signs Temp 98.8 F 07/04/22 03:58 Pulse 109 H 07/04/22 03:58 Resp 19 07/04/22 03:58 BP 175/74 H 07/04/22 03:58 Pulse Ox 96 07/04/22 03:58 O2 Del Method 07/04/22 03:58 O2 Flow Rate 1 07/04/22 03:58 BMI result Body Mass Index 42.0 Const: Other: patient obese, appears uncomfortable General: cooperative and no acute distress Orientation/consciousness: patient oriented x3 Eyes: General: appearance normal, both eyes and all related structures Resp: Effort & Inspection: normal respiratory effort Auscultation: clear to auscultation bilaterally Cardio: Rate: regular rate Rhythm: regular rhythm GI: Other: obese abdomen, epigastric as well as right upper quadrant tenderness on deep palpation Palpation (GI): Soft to palpation Auscultation: normal bowel sounds Skin: General skin exam: no rashes or lesions noted Neuro: General: patient oriented x3 Cognition (Neuro): normal cognition Extrem: General: Yes normal to inspection and Yes no pedal edema Results Labs CBC and Chem 7: 07/03/22 17:49 07/04/22 01:48 Labs: Laboratory Results - last 24 hr 07/03/22 07/03/22 07/03/22 17:49 17:49 19:03 MCV 74.4 L MCH 22.4 L MCHC 30.0 L RDW 17.9 H Plt Count 357 MPV 10.9 Immature Gran % (Auto) 0.5 H Neut % (Auto) 83.4 H Lymph % (Auto) 13.0 L Cameron % (Auto) 2.6 Eos % (Auto) 0.2 Baso % (Auto) 0.3 Lymph # (Auto) 2.0 Cameron # (Auto) 0.4 Eos # (Auto) 0.0 Baso # (Auto) 0.0 Abs Immat Gran (auto) 0.08 H Absolute Neuts (auto) 12.5 H Absolute Nucleated RBC 0.000 Nucleated RBC % (auto) 0.0 Anion Gap 24 H Estim Creat Clear Calc 80.8 Estimated GFR 54 Random Glucose 256 H Lactic Acid Calcium 10.3 H Total Bilirubin 0.8 Direct Bilirubin 0.3 AST 25 ALT 34 H Alkaline Phosphatase 138 H Total Protein 8.5 H Albumin 4.7 Lipase 181 H Urine Color Urine Appearance Urine pH Ur Specific [place] Urine Protein Urine Glucose (UA) Urine Ketones Urine Blood Urine Nitrite Ur Leukocyte Esterase Urine RBC Urine WBC Ur Squamous Epith Cells Urine Bacteria Hyaline Casts COVID-19 ([facility]) Negative COVID-19 Clin Com See Note 07/03/22 07/04/22 07/04/22 21:43 01:48 01:48 MCV MCH MCHC RDW Plt Count MPV Immature Gran % (Auto) Neut % (Auto) Lymph % (Auto) Cameron % (Auto) Eos % (Auto) Baso % (Auto) Lymph # (Auto) Cameron # (Auto) Eos # (Auto) Baso # (Auto) Abs Immat Gran (auto) Absolute Neuts (auto) Absolute Nucleated RBC Nucleated RBC % (auto) Anion Gap 19 Estim Creat Clear Calc 106.1 Estimated GFR > 60 Random Glucose 281 H Lactic Acid 1.9 Calcium 9.6 D Total Bilirubin Direct Bilirubin AST ALT Alkaline Phosphatase Total Protein Albumin Lipase Urine Color Dark Yellow Urine Appearance Cloudy Urine pH 5.5 Ur Specific [place] 1.025 Urine Protein 100 (2+) H Urine Glucose (UA) Negative Urine Ketones 40 Urine Blood Negative Urine Nitrite Negative Ur Leukocyte Esterase Trace H Urine RBC 3-5 H Urine WBC 0-5 Ur Squamous Epith Cells >20 Urine Bacteria 4+ Hyaline Casts 6-10 COVID-19 ([facility]) COVID-19 Clin Com Imaging Radiologist's Impressions: Impressions Abdomen/Pelvis CT 07/03/22 20:24 IMPRESSION: 1. No acute abnormality. 2. Hepatomegaly with diffuse fatty change of liver. Fleischner guidelines were followed. Assessment and Plan (1) Sepsis: Status: Acute (2) Epigastric abdominal pain: Status: Acute (3) UTI (urinary tract infection): Status: Acute (4) Intractable nausea and vomiting: Status: Acute (5) Elevated lipase: Status: Acute (6) Dilated cbd, acquired: Status: Acute Plan 57-year-old female with extensive past medical history that includes obesity presents to the hospital with complaints of epigastric as well as right upper quadrant abdominal pain, nausea vomiting # sepsis - patient has tachycardia, tachypnea, as well as leukocytosis - source likely UTI versus choledocholithiasis - patient is status post cholecystectomy therefore cholecystitis is ruled out - at this time will treat with IV antibiotics - follow cultures - IV fluids # epigastric abdominal pain - radiating to the right upper quadrant - cannot rule out pancreatitis - elevated lipase, characteristic epigastric pain radiating to the back - at this time will treat as pancreatitis with aggressive IV fluids, NPO, and pain control - given the dilatation of CBD seen on CT of the abdomen, will also consult GI - NPO # UTI - has positive UA with right flank pain - at this time will treat with IV antibiotics - follow cultures # intractable nausea vomiting - possibly secondary to acute pancreatitis versus choledocholithiasis - will treat with antiemetics, IV fluids # elevated lipase - possibly secondary to acute pancreatitis versus reactive due to the abdominal pain, as well as nausea vomiting - will treat with IV fluids - GI consulted # diabetes - low-dose sliding scale insulin - diabetic diet # hypothyroidism - continue levothyroxine # anxiety depression - continue home medications DVT prophylaxis: Lovenox Pt will require a minimum 2 night hospital stay for IV fluids, and IV antibiotics Quality Stroke Does the patient have a stroke diagnosis?: No VTE Prior VTE?: No VTE Risk Level:: Medical - moderate - high VTE Device Contraindication: Treatment Not Indicated VTE Drug Contraindication: N/A - Med Ordered
--- NOTE | 2022-07-04 05:19 | PC.NURSE ---
Notified provider that pt.'s HR tachy. to 130s-140. Will continue to monitor and await new order(s)
[2022-07-04] MEDS: Morphine Sulfate 4 MG/ML CARTRIDGE IVPUSH ×2 (05:22→16:41)
[2022-07-04] MEDS: Lactated Ringers 1,000 ML 200 ML IVCONT (05:26)
[2022-07-04] MEDS: Enoxaparin Sodium 40 MG/0.4 ML SYRINGE SUBCUT (05:27)
[2022-07-04 05:46] LABS: Basophils Percent Auto 0.1 % (0-2); Eosinophils Percent Auto 0.3 % (0-4); Hematocrit 39.3 % (37.0-47.0); Hemoglobin 12.4 g/dl (12.0-16.0); Imm Gran Abs Auto 0.07 X10*3/uL (0.00-0.03); Imm Gran Pct Auto 0.5 % (0.0-0.4); Lymphocytes Absolute Auto 1.5 X10*3/uL (1.2-4.9); Lymphocytes Percent Auto 11.1 % (20-40); MANUAL DIFF FLAG NO; Mean Corpuscular HGB Conc 31.6 g/dl (31.0-35.0); Mean Corpuscular Hemoglobin 22.9 pg (27.0-33.0); Mean Corpuscular Volume 72.6 fL (80.0-98.0); Mean Platelet Volume 10.7 fL (9.4-12.3); Monocytes Absolute Auto 0.4 X10*3/uL (0.1-1.2); Monocytes Percent Auto 2.8 % (2-11); Neutrophils Absolute Auto 11.7 x10*3/uL (2.0-8.3); Neutrophils Percent Auto 85.2 % (45-73); Platelet Count 289 X10*3/uL (160-400); Red Blood Count 5.41 X10*6/uL (4.20-5.50); Red Cell Distribution Width 16.9 % (11.0-16.0); White Blood Count 13.7 X10*3/uL (4.8-10.8)
[2022-07-04 07:13] LABS: Anion Gap 20 (12-20); Blood Urea Nitrogen 18 mg/dL (9-16); Calcium 9.1 mg/dL (8.4-10.2); Carbon Dioxide 22 mmol/L (22-29); Chloride 106 mmol/L (96-108); Cholesterol 147 mg/dL; Creatinine Clr Calc Pharmacy 113.1; Estimated Glomerular Filt Rate > 60; Glucose Random 272 mg/dL (60-115); HDL Cholesterol 37 mg/dL; LDL Cholesterol Calculated 95 mg/dl; Potassium 3.8 mmol/L (3.3-5.1); Sodium 144 mmol/L (135-145); Triglycerides 79 mg/dL
[2022-07-04 07:29] LABS: Glucose, Whole Blood 232 mg/dL (60-115)
[2022-07-04] MEDS: 0.9 % Sodium Chloride Flush 3 ML SYRINGE IVFLUSH (07:38)
--- NOTE | 2022-07-04 07:52 | PC.NURSE ---
patient a/ox4 . pratima . heart rate 126 regular . lungs clear with dry non productive cough , skin moist and pink . abdomen round and distended . patient reports pain level of 9/10 pain in right lower quadrant / flank . patient able to ambulant with cane to bathroom with staff by side . Contacted regarding patients requests for ice chips , pain level not being resolved and blood pressure levels being elevated . patient has a history of hypertension and takes amlodipine 10mg at home , provider aware . Awaiting new orders . patient aware of plan of care .
[2022-07-04] MEDS: Insulin Lispro 100 UNIT/ML 3 ML VIAL SUBCUT (09:06)
[2022-07-04] MEDS: amLODIPine Besylate 10 MG TABLET PO (09:06)
--- NOTE | 2022-07-04 09:10 | PC.NURSE ---
Report given to Kimberley KELLEY . patient medicated and ready for transport to unit . patient aware of plan of care .
--- NOTE | 2022-07-04 09:48 | PHA.MEDREC ---
Pharmacy Consult ? Medication Reconciliation Pharmacy has completed the medication reconciliation. Patient brought incomplete list of medications with them. Cross-verified with patient and verified meds not on list. Except for trulicity and lorazepam, patient not sure when they last took their medications.
[2022-07-04] MEDS: Lactated Ringers 1,000 ML 125 ML IVCONT ×3 (09:55→23:47)
[2022-07-04] MEDS: Prochlorperazine Edisylate 10 MG/2 ML VIAL 5 MG IVPUSH ×2 (09:55→14:27)
[2022-07-04 11:16] LABS: Glucose, Whole Blood 246 mg/dL (60-115)
[2022-07-04 11:25] LABS: Glucose, Whole Blood 218 mg/dL (60-115)
[2022-07-04] MEDS: Metoclopramide HCl 5 MG TABLET PO ×2 (11:51→16:43)
[2022-07-04] MEDS: Metoprolol Tartrate 50 MG TABLET PO ×2 (11:51→20:11)
[2022-07-04] MEDS: Lipase/Prot/Amylase 24/76/120K 1 CAP CAPSULE.DR PO ×3 (11:59→20:10)
--- NOTE | 2022-07-04 12:21 | HO.PM.IMPN ---
Subjective Subjective Date of Service: 07/04/22 Interval History: seen and examined this morning Follow-up for abdominal pain Patient reports primarily mid abdominal pain with associated nausea and vomiting. She reports chronic diarrhea which is unchanged from baseline She denies any fever, chills. she states that her symptoms are the same as her previous admission for diabetic gastroparesis Review of Systems Review of Systems: Yes all other systems are reviewed and are negative Constitutional Constitutional: Denies chills and Denies fever(s) Cardiovascular Cardiovascular: Denies chest pain, Denies palpitations and Denies dyspnea Respiratory Respiratory: Denies cough and Denies dyspnea Gastrointestinal Gastrointestinal: Reports abdominal pain, Denies nausea and Denies vomiting Endocrine Endocrine: Denies palpitations Physical Exam Vital Signs: Vital Signs: Last Vital Signs Temp 98.4 F 07/04/22 11:24 Pulse 100 07/04/22 11:24 Resp 18 07/04/22 11:24 BP 176/70 H 07/04/22 11:24 Pulse Ox 93 07/04/22 11:24 O2 Del Method 07/04/22 11:24 O2 Flow Rate 1 07/04/22 05:49 BMI result Body Mass Index 42.0 Const: General: alert and awake Nutritional Appearance: obese Objective Data Active Medications Acetaminophen (Acetaminophen 325 Mg Tablet) 650 mg PO Q6H PRN PRN Reason: Pain, Mild (Pain Scale 1-3) Albuterol Sulfate (Albuterol Sulfate 90 Mcg 8 Gm Inhaler) 2 puff INHALE Q6H PRN PRN Reason: shortness of breath or wheezing Amlodipine Besylate (Amlodipine Besylate 10 Mg Tablet) 10 mg PO DAILY [facility]; Protocol Lipase/Protease/Amylase (Lipase/Prot/Amylase 24/76/120k 1 Cap Capsule.Dr) 1 cap PO QIDACHS [facility] Last Admin: 07/04/22 11:59 Dose: 1 cap Documented By: SYLWIA Clonidine HCl (Clonidine Hcl 0.1 Mg Tablet) 0.1 mg PO TID PRN; Protocol PRN Reason: Agitation or Anxiety Clotrimazole (Clotrimazole 1 % Cream 15 Gm Tube) 1 appl TOPICAL BID [facility]; Protocol Dextrose (Dextrose 50 % 25 Gm/50 Ml Syringe) 25 gm IVPUSH Q15M PRN; Protocol PRN Reason: per Hypoglycemia Standing Ord. Docusate Sodium (Docusate Sodium 100 Mg Capsule) 100 mg PO DAILY PRN PRN Reason: Constipation Duloxetine HCl (Duloxetine Hcl 60 Mg Capsule.Dr) 60 mg PO DAILY [facility] Enoxaparin Sodium (Enoxaparin Sodium 40 Mg/0.4 Ml Syringe) 40 mg SUBCUT Q24H [facility] Last Admin: 07/04/22 05:27 Dose: 40 mg Documented By: PEDRO Fluticasone/Vilanterol (Fluticasone/Vilanterol 200/25 Blst.W.Dev) 1 puff INHALE RDAILY [facility] Last Admin: 07/04/22 11:12 Dose: Not Given Documented By: RAF Non-Admin Reason: Med Not Available Gabapentin (Gabapentin 400 Mg Capsule) 800 mg PO TID [facility] Glucose (Glucose Gel 15 Gm Gel..Gram.) 15 gm PO Q15M PRN; Protocol PRN Reason: per Hypoglycemia Standing Ord. Ceftriaxone Sodium 1 gm/ (Sodium Chloride) 50 mls @ 100 mls/hr IV Q24H [facility] Last Infusion: 07/04/22 09:55 Dose: 0 mls/hr Documented By: SYLWIA Lactated Ringer's (Lr) 1,000 mls @ 125 mls/hr IVCONT .Q8H [facility] Last Admin: 07/04/22 09:55 Dose: 125 mls/hr Documented By: SYLWIA Insulin Human Lispro (Insulin Lispro 100 Unit/Ml 3 Ml Vial) 0 unit SUBCUT QIDACHS [facility]; Protocol Last Admin: 07/04/22 11:26 Dose: Not Given Documented By: SYLWIA Non-Admin Reason: NPO Levothyroxine Sodium (Levothyroxine Sodium 112 Mcg Tablet) 112 mcg PO DAILY [facility] Lorazepam (Lorazepam 0.5 Mg Tablet) 0.5 mg PO DAILY PRN PRN Reason: Severe Anxiety and Panic Disorder Meclizine HCl (Meclizine Hcl 25 Mg Tablet) 25 mg PO TID PRN PRN Reason: dizziness Metoclopramide HCl (Metoclopramide Hcl 5 Mg Tablet) 5 mg PO TIDAC [facility] Last Admin: 07/04/22 11:51 Dose: 5 mg Documented By: SYLWIA Metoprolol Tartrate (Metoprolol Tartrate 50 Mg Tablet) 50 mg PO BID [facility]; Protocol Last Admin: 07/04/22 11:51 Dose: 50 mg Documented By: SYLWIA Metronidazole (Metronidazole 500 Mg Tablet) 500 mg PO Q8H [facility] Last Admin: 07/04/22 07:15 Dose: Not Given Documented By: RIGOBERTO Non-Admin Reason: NPO Mirtazapine (Mirtazapine 30 Mg Tablet) 30 mg PO BEDTIME [facility] Morphine Sulfate (Morphine Sulfate 4 Mg/Ml Cartridge) 4 mg IVPUSH Q4H PRN; Protocol PRN Reason: Pain, Severe (Pain Scale 7-10) Last Admin: 07/04/22 05:22 Dose: 4 mg Documented By: PEDRO Pharmacy Consult (Consult Rx Perform Med Rec) 1 each MISCELLANE ONCE PRN PRN Reason: Consult order Prochlorperazine Edisylate (Prochlorperazine Edisylate 10 Mg/2 Ml Vial) 5 mg IVPUSH Q4H PRN PRN Reason: Nausea and Vomiting Last Admin: 07/04/22 09:55 Dose: 5 mg Documented By: SYLWIA Pyridoxine HCl (Pyridoxine Hcl (Vitamin B6) 50 Mg Tablet) 100 mg PO DAILY [facility] Senna (Sennosides 8.6 Mg Tablet) 17.2 mg PO BEDTIME [facility] Sodium Chloride (0.9 % Sodium Chloride Flush 3 Ml Syringe) 3 ml IVFLUSH QSHIFT [facility] Last Admin: 07/04/22 07:38 Dose: 3 ml Documented By: RIGOBERTO Labs CBC & Chem 7: 07/04/22 05:40 07/04/22 06:51 Labs: Laboratory Results - last 24 hr 07/03/22 07/03/22 07/03/22 17:49 17:49 19:03 MCV 74.4 L MCH 22.4 L MCHC 30.0 L RDW 17.9 H Plt Count 357 MPV 10.9 Immature Gran % (Auto) 0.5 H Neut % (Auto) 83.4 H Lymph % (Auto) 13.0 L [place] % (Auto) 2.6 Eos % (Auto) 0.2 Baso % (Auto) 0.3 Lymph # (Auto) 2.0 [place] # (Auto) 0.4 Eos # (Auto) 0.0 Baso # (Auto) 0.0 Abs Immat Gran (auto) 0.08 H Absolute Neuts (auto) 12.5 H Absolute Nucleated RBC 0.000 Nucleated RBC % (auto) 0.0 Anion Gap 24 H Estim Creat Clear Calc 80.8 Estimated GFR 54 POC Glucose Random Glucose 256 H Lactic Acid Calcium 10.3 H Total Bilirubin 0.8 Direct Bilirubin 0.3 AST 25 ALT 34 H Alkaline Phosphatase 138 H Total Protein 8.5 H Albumin 4.7 Triglycerides Cholesterol LDL Cholesterol, Calc HDL Cholesterol Lipase 181 H Urine Color Urine Appearance Urine pH Ur Specific [place] Urine Protein Urine Glucose (UA) Urine Ketones Urine Blood Urine Nitrite Ur Leukocyte Esterase Urine RBC Urine WBC Ur Squamous Epith Cells Urine Bacteria Hyaline Casts COVID-19 ([facility]) Negative COVID-19 Clin Com See Note 07/03/22 07/04/22 07/04/22 21:43 01:48 01:48 MCV MCH MCHC RDW Plt Count MPV Immature Gran % (Auto) Neut % (Auto) Lymph % (Auto) [place] % (Auto) Eos % (Auto) Baso % (Auto) Lymph # (Auto) [place] # (Auto) Eos # (Auto) Baso # (Auto) Abs Immat Gran (auto) Absolute Neuts (auto) Absolute Nucleated RBC Nucleated RBC % (auto) Anion Gap 19 Estim Creat Clear Calc 106.1 Estimated GFR > 60 POC Glucose Random Glucose 281 H Lactic Acid 1.9 Calcium 9.6 D Total Bilirubin Direct Bilirubin AST ALT Alkaline Phosphatase Total Protein Albumin Triglycerides Cholesterol LDL Cholesterol, Calc HDL Cholesterol Lipase Urine Color Dark Yellow Urine Appearance Cloudy Urine pH 5.5 Ur Specific [place] 1.025 Urine Protein 100 (2+) H Urine Glucose (UA) Negative Urine Ketones 40 Urine Blood Negative Urine Nitrite Negative Ur Leukocyte Esterase Trace H Urine RBC 3-5 H Urine WBC 0-5 Ur Squamous Epith Cells >20 Urine Bacteria 4+ Hyaline Casts 6-10 COVID-19 ([facility]) COVID-19 Clin Com 07/04/22 07/04/22 07/04/22 05:40 06:51 07:24 MCV 72.6 L MCH 22.9 L MCHC 31.6 RDW 16.9 H Plt Count 289 MPV 10.7 Immature Gran % (Auto) 0.5 H Neut % (Auto) 85.2 H Lymph % (Auto) 11.1 L [place] % (Auto) 2.8 Eos % (Auto) 0.3 Baso % (Auto) 0.1 Lymph # (Auto) 1.5 [place] # (Auto) 0.4 Eos # (Auto) 0.0 Baso # (Auto) 0.0 Abs Immat Gran (auto) 0.07 H Absolute Neuts (auto) 11.7 H Absolute Nucleated RBC 0.000 Nucleated RBC % (auto) 0.0 Anion Gap 20 Estim Creat Clear Calc 113.1 Estimated GFR > 60 POC Glucose 232 H Random Glucose 272 H Lactic Acid Calcium 9.1 Total Bilirubin Direct Bilirubin AST ALT Alkaline Phosphatase Total Protein Albumin Triglycerides 79 Cholesterol 147 LDL Cholesterol, Calc 95 HDL Cholesterol 37 D Lipase Urine Color Urine Appearance Urine pH Ur Specific [place] Urine Protein Urine Glucose (UA) Urine Ketones Urine Blood Urine Nitrite Ur Leukocyte Esterase Urine RBC Urine WBC Ur Squamous Epith Cells Urine Bacteria Hyaline Casts COVID-19 ([facility]) COVID-19 Clin Com 07/04/22 07/04/22 10:05 11:21 MCV MCH MCHC RDW Plt Count MPV Immature Gran % (Auto) Neut % (Auto) Lymph % (Auto) [place] % (Auto) Eos % (Auto) Baso % (Auto) Lymph # (Auto) [place] # (Auto) Eos # (Auto) Baso # (Auto) Abs Immat Gran (auto) Absolute Neuts (auto) Absolute Nucleated RBC Nucleated RBC % (auto) Anion Gap Estim Creat Clear Calc Estimated GFR POC Glucose 246 H 218 H Random Glucose Lactic Acid Calcium Total Bilirubin Direct Bilirubin AST ALT Alkaline Phosphatase Total Protein Albumin Triglycerides Cholesterol LDL Cholesterol, Calc HDL Cholesterol Lipase Urine Color Urine Appearance Urine pH Ur Specific [place] Urine Protein Urine Glucose (UA) Urine Ketones Urine Blood Urine Nitrite Ur Leukocyte Esterase Urine RBC Urine WBC Ur Squamous Epith Cells Urine Bacteria Hyaline Casts COVID-19 ([facility]) COVID-19 Clin Com Assessment and Plan (1) Intractable nausea and vomiting: Status: Acute Plan 57-year-old female with extensive past medical history that includes obesity presents to the hospital with complaints of epigastric as well as right upper quadrant abdominal pain, nausea vomiting sepsis meets sepsis criteria with tachycardia, tachypnea, and leukocytosis possible source UTI. CT scan also with ? of dilated CBD - continue empiric antibiotics - follow results of cultures epigastric abdominal pain likely related to diabetic gastroparesis. Pain similar as previous presentation although slight elevation in lipase, normal pancreas on CT scan - NPO, IVF, pain management - given the dilatation of CBD seen on CT of the abdomen, will also consult GI - Abdominal US pending UTI denies dysuria or urinary symptoms - continue IV ceftriaxone - follow results of urine culture diabetes with neuropathy Hold trulicity, metformin - continue sliding scale - continue gabapentin diabetic gastroparesis continue reglan with meals hypothyroidism - continue levothyroxine HTN continue Norvasc, metoprolol mood - continue home medications DVT prophylaxis: Lovenox attending - dr. obrien Pt will require a minimum 2 night hospital stay for IV fluids, and IV antibiotics Quality Stroke Does the patient have a stroke diagnosis?: No VTE Prior VTE?: No VTE Risk Level:: Medical - moderate - high VTE Device Contraindication: Treatment Not Indicated VTE Drug Contraindication: N/A - Med Ordered
[2022-07-04 15:32] LABS: Glucose, Whole Blood 197 mg/dL (60-115)
--- NOTE | 2022-07-04 15:44 | PC.NURSE ---
Gabapentin 800 mg, Tylenol 650 mg and Flagyl administered to patient orally. Immediately vomited after taking oral medications, unable to tolerate. Primary RN made aware
[2022-07-04] MEDS: Mirtazapine 30 MG TABLET PO (20:11)
[2022-07-04] MEDS: Sennosides 8.6 MG TABLET 17.2 MG PO (20:12)
[2022-07-04] MEDS: Gabapentin 400 MG CAPSULE 800 MG PO (20:15)
[2022-07-04 20:16] LABS: Glucose, Whole Blood 136 mg/dL (60-115)
[2022-07-04] MEDS: Meclizine HCl 25 MG TABLET PO (20:31)
[2022-07-04] MEDS: Clotrimazole 1 % Cream 15 GM TUBE 1 APPL TOPICAL (20:53)
[2022-07-04] MEDS: Acetaminophen 325 MG TABLET 650 MG PO (21:52)
[2022-07-05] VITALS (7 sets, daily range): BP systolic 109–180; BP diastolic 60–87; PULSE 63–87; RESP 16–20; TEMP 36–37.3; O2SAT 90–94
[2022-07-05 00:09] LABS: Glucose, Whole Blood 133 mg/dL (60-115)
[2022-07-05] MEDS: cefTRIAXone sodium 1 GM in 0.9 % Sodium Chloride 50 ML IV (03:55)
[2022-07-05] MEDS: Enoxaparin Sodium 40 MG/0.4 ML SYRINGE SUBCUT (05:01)
[2022-07-05 06:55] LABS: Hematocrit 38.6 % (37.0-47.0); Hemoglobin 11.6 g/dl (12.0-16.0); Mean Corpuscular HGB Conc 30.1 g/dl (31.0-35.0); Mean Corpuscular Hemoglobin 22.6 pg (27.0-33.0); Mean Corpuscular Volume 75.1 fL (80.0-98.0); Mean Platelet Volume 11.1 fL (9.4-12.3); Platelet Count 281 X10*3/uL (160-400); Red Blood Count 5.14 X10*6/uL (4.20-5.50); Red Cell Distribution Width 17.7 % (11.0-16.0); White Blood Count 12.3 X10*3/uL (4.8-10.8)
[2022-07-05 07:33] LABS: Anion Gap 18 (12-20); Blood Urea Nitrogen 13 mg/dL (9-16); Calcium 8.9 mg/dL (8.4-10.2); Carbon Dioxide 24 mmol/L (22-29); Chloride 106 mmol/L (96-108); Creatinine Clr Calc Pharmacy 136.9; Estimated Glomerular Filt Rate > 60; Glucose Random 124 mg/dL (60-115); Potassium 3.6 mmol/L (3.3-5.1); Sodium 144 mmol/L (135-145)
--- NOTE | 2022-07-05 07:36 | PM.GICN ---
History of Present Illness Data of Consult Service Date: 07/05/22 Requesting physician: Sabine Bauman Primary Care Provider: Jenny Bell MD HPI Reason for consult: nausea 57-year-old female with?past medical history of? hypothyroidism, HLD, obesity, anxiety disorder, diabetes, chronic pain, asthma, depression, small-bowel motility disorder, gastroparesis who I am seeing for assessment for nausea and epigastric pain Patient reports that her symptoms started 2 days ago, she has Zofran p.o. at home as well as reglan, tried it for several times with no relief of her nausea or vomiting. denies coffee ground emesis or hematochezia. She is also complaining of epigastric pain that is radiating to the back, as well as to the right and left, ? Pain is constant, a out of 10, no relieving or exacerbating factors. she reports no fever or chills.? No diarrhea constipation. Patient denies any urinary symptoms including no urinary frequency, urgency, or dysuria but does admit to lower abdominal diffuse cramping. her blood sugars had been high last several days as well. Today she also noted a worsening cough with yellowish sputum but her nausea and pain as better today. LAST EGD 2017 for abdominal pain: superficial gastritis, but bx were unremarkable, Also note; patient has had multiple CT scans over the years for c/o abdominal pain, 4 scans this year so far LABS: WBC count of 15, hemoglobin of 14, hematocrit 46.6, left shift, lipase of 181, ? She has elevated alk-phos of 138, as well as ALT of 34, bilirubin and AST are normal.UA that is positive for leukocyte Estrace and WBC Imaging: CT shows no acute abnormality US with nml CBD Review of Systems Review of Systems: Constitutional : No Weight loss, No Fever, + Chills ENT/Mouth : No sore throat, No Rhinorrhea Eyes: No Swelling, No Redness Cardiovascular : No Chest Pain, No SOB, No Edema Respiratory : + Cough, +Sputum, No Wheezing Gastrointestinal : see HPI Genitourinary : NO Dysuria, No Urinary Frequency, No Hematuria, No Urgency Musculoskeletal : No joint pain, No Myalgias, No Joint Swelling Skin : No Skin Lesions, No rash Neuro : No Weakness, No Numbness, No Dizziness, No Headache Psych : No Anxiety/Panic, No Depression Heme/Lymph: No Bruising, No Lymphadenopathy Endocrine : No Polyuria, No Polydipsia All other systems reviewed and are negative. [facility] Past Medical History Medical History Arthropathy of facet joint Asthma Bilateral shoulder pain Chronic idiopathic constipation Chronic pain (Unknown) Chronic pain syndrome Degeneration, intervertebral disc, cervical Diabetes mellitus Disc degeneration, lumbar Fibromyalgia LUDY (generalized anxiety disorder) Goiter Hyperlipidemia LDL goal <70 Hypothyroidism Incontinence Insomnia Left knee pain Lumbar pain Moderately severe recurrent major depression Morbid (severe) obesity due to excess calories Multiple air fluid levels of small intestine determined by X-ray Renal calculi Sleep apnea Small bowel motility disorder Spondylosis of cervical spine at multiple levels without myelopathy Spondylosis of cervical spine at multiple levels without myelopathy Spondylosis of lumbar region without myelopathy or radiculopathy Family History Family History Father Past heart attack Anxiety Mother MOF (multiple organ failure) Brother HIV (human immunodeficiency virus infection) Sister Ovarian cancer Lupus Bone cancer Uterine cancer Tumor Daughter Guillain-[place] Sister Lupus History of open heart surgery Family/Other Depression FH: mental illness Maternal Aunt Breast cancer Maternal Aunt Tumor Surgical History Surgical History Delivery by section History of cholecystectomy History of esophagogastroduodenoscopy (EGD) History of hernia surgery History of hysterectomy History of knee replacement procedure of right knee Hx of colonoscopy Social History Social History Household Members: None Household Members Other:: Housing: Apartment Are you a primary child care development specialist to a significant other at home: No Do you presently have visiting nurse or other home services: Yes ([employer]) Alcohol intake: former Patient Tobacco Use Status: Never used Tobacco e-Cigarette/Vaping Use: Never Used Second Hand Smoke Exposure: Yes Advance Directives Date on File: 12/08/21 service: No Current occupational status: unemployed and disabled Cognitive needs: No Hearing needs: No Vision needs: No Meds Allergies Allergy/AdvReac Type Severity Reaction Status Date / Time Penicillins Allergy Severe swelling Verified 06/29/22 09:43 adhesive tape [ADHESIVE TAPE] Allergy Intermediate RASH Verified 06/29/22 09:43 amoxicillin [AMOXICILLIN] Allergy Intermediate RASH,SWELLING, Verified 06/29/22 09:43 RASH/SWELLING latex Allergy Intermediate Rash Verified 06/29/22 09:43 Motrin Allergy Intermediate hypertensio Verified 06/29/22 09:43 n Active Medications: Current Medications Acetaminophen (Acetaminophen 325 Mg Tablet) 650 mg PO Q6H PRN PRN Reason: Pain, Mild (Pain Scale 1-3) Last Admin: 07/04/22 21:52 Dose: 650 mg Albuterol Sulfate (Albuterol Sulfate 90 Mcg 8 Gm Inhaler) 2 puff INHALE Q6H PRN PRN Reason: shortness of breath or wheezing Amlodipine Besylate (Amlodipine Besylate 10 Mg Tablet) 10 mg PO DAILY [facility]; Protocol Lipase/Protease/Amylase (Lipase/Prot/Amylase 24/76/120k 1 Cap Capsule.) 1 cap PO QIDACHS [facility] Last Admin: 07/04/22 20:10 Dose: 1 cap Clonidine HCl (Clonidine Hcl 0.1 Mg Tablet) 0.1 mg PO TID PRN; Protocol PRN Reason: Agitation or Anxiety Clotrimazole (Clotrimazole 1 % Cream 15 Gm Tube) 1 appl TOPICAL BID [facility]; Protocol Last Admin: 07/04/22 20:53 Dose: 1 appl Dextrose (Dextrose 50 % 25 Gm/50 Ml Syringe) 25 gm IVPUSH Q15M PRN; Protocol PRN Reason: per Hypoglycemia Standing Ord. Docusate Sodium (Docusate Sodium 100 Mg Capsule) 100 mg PO DAILY PRN PRN Reason: Constipation Duloxetine HCl (Duloxetine Hcl 60 Mg Capsule.) 60 mg PO DAILY [facility] Enoxaparin Sodium (Enoxaparin Sodium 40 Mg/0.4 Ml Syringe) 40 mg SUBCUT Q24H [facility] Last Admin: 07/05/22 05:01 Dose: 40 mg Fluticasone/Vilanterol (Fluticasone/Vilanterol 200/25 Blst.W.Dev) 1 puff INHALE RDAILY [facility] Last Admin: 07/04/22 11:12 Dose: Not Given Gabapentin (Gabapentin 400 Mg Capsule) 800 mg PO TID [facility] Last Admin: 07/04/22 20:15 Dose: 800 mg Glucose (Glucose Gel 15 Gm Gel..Gram.) 15 gm PO Q15M PRN; Protocol PRN Reason: per Hypoglycemia Standing Ord. Hydralazine HCl (Hydralazine Hcl 20 Mg/Ml Vial) 5 mg IVPUSH Q6H PRN; Protocol PRN Reason: SBP >180 Ceftriaxone Sodium 1 gm/ (Sodium Chloride) 50 mls @ 100 mls/hr IV Q24H [facility] Last Infusion: 07/05/22 04:29 Dose: Infused Lactated Ringer's (Lr) 1,000 mls @ 125 mls/hr IVCONT .Q8H [facility] Last Admin: 07/04/22 23:47 Dose: 125 mls/hr Insulin Human Lispro (Insulin Lispro 100 Unit/Ml 3 Ml Vial) 0 unit SUBCUT QIDACHS [facility]; Protocol Last Admin: 07/04/22 21:52 Dose: Not Given Levothyroxine Sodium (Levothyroxine Sodium 112 Mcg Tablet) 112 mcg PO DAILY [facility] Lorazepam (Lorazepam 0.5 Mg Tablet) 0.5 mg PO DAILY PRN PRN Reason: Severe Anxiety and Panic Disorder Metoclopramide HCl (Metoclopramide Hcl 5 Mg Tablet) 5 mg PO TIDAC [facility] Last Admin: 07/04/22 16:43 Dose: 5 mg Metoprolol Tartrate (Metoprolol Tartrate 50 Mg Tablet) 50 mg PO BID [facility]; Protocol Last Admin: 07/04/22 20:11 Dose: 50 mg Mirtazapine (Mirtazapine 30 Mg Tablet) 30 mg PO BEDTIME [facility] Last Admin: 07/04/22 20:11 Dose: 30 mg Morphine Sulfate (Morphine Sulfate 4 Mg/Ml Cartridge) 4 mg IVPUSH Q4H PRN; Protocol PRN Reason: Pain, Severe (Pain Scale 7-10) Last Admin: 07/04/22 16:41 Dose: 4 mg Pharmacy Consult (Consult Rx Perform Med Rec) 1 each MISCELLANE ONCE PRN PRN Reason: Consult order Prochlorperazine Edisylate (Prochlorperazine Edisylate 10 Mg/2 Ml Vial) 5 mg IVPUSH Q4H PRN PRN Reason: Nausea and Vomiting Last Admin: 07/04/22 14:27 Dose: 5 mg Pyridoxine HCl (Pyridoxine Hcl (Vitamin B6) 50 Mg Tablet) 100 mg PO DAILY [facility] Senna (Sennosides 8.6 Mg Tablet) 17.2 mg PO BEDTIME [facility] Last Admin: 07/04/22 20:12 Dose: 17.2 mg Sodium Chloride (0.9 % Sodium Chloride Flush 3 Ml Syringe) 3 ml IVFLUSH QSHIFT [facility] Last Admin: 07/05/22 07:29 Dose: Not Given Home Medications Medication Instructions Recorded Confirmed Last Taken Type vaporizers #1 ea 10/10/20 04/09/22 Unknown History clonidine HCl 0.1 mg tablet 0.1 mg PO TID PRN Agitation or 09/19/21 07/04/22 01/25/22 10:00 History Anxiety lorazepam 0.5 mg tablet 0.5 mg PO DAILY PRN Severe Anxiety 04/09/22 07/04/22 07/03/22 History and Panic Disorder prochlorperazine maleate 10 mg 10 mg PO Q8H PRN Nausea 04/09/22 07/04/22 Unknown History tablet mirtazapine 30 mg tablet 30 mg PO BEDTIME 06/23/22 07/04/22 Unknown History acetaminophen 650 mg 650 mg PO Q8H PRN arthritis pain 07/04/22 07/04/22 Unknown History tablet,extended release (Tylenol Arthritis Pain) dulaglutide 0.75 mg/0.5 mL 0.75 mg subcut WE 07/04/22 07/04/22 07/01/22 History subcutaneous pen injector (Trulicity) ergocalciferol (vitamin D2) 1,250 1,250 mcg PO Q2W 07/04/22 07/04/22 Unknown History mcg (50,000 unit) capsule furosemide 40 mg tablet 80 mg PO DAILY 07/04/22 07/04/22 Unknown History insulin lispro 100 unit/mL See Rx Instructions .Route .COMPLEX 07/04/22 07/04/22 Unknown History subcutaneous solution (Humalog U-100 Insulin) Physical Exam Vital Signs: Vital Signs: Last Vital Signs Temp 97.4 F 07/05/22 04:15 Pulse 73 07/05/22 04:15 Resp 20 07/05/22 04:15 BP 134/87 07/05/22 04:15 Pulse Ox 93 07/05/22 04:15 O2 Del Method 07/05/22 04:15 O2 Flow Rate 2 07/05/22 04:15 BMI result Body Mass Index 42.0 EXAM: GENERAL: The patient is obese, relaxed VITAL SIGNS:see workflow HEENT: Nonicteric sclerae, PERRLA, EOMI. Oropharynx clear. Moist mucous membranes. Conjunctivae appear well perfused. No thyroid mass. CHEST: Chest wall is nontender. HEART: Regular rate and rhythm without murmurs. LUNGS: mild polyphonic wheeze left side ABDOMEN: Soft, positive bowel sounds, tender epigastrium and suprapubic area, no organomegaly.no flank tenderness SKIN: No rash, no excessive bruising, petechiae, or purpura. NEUROLOGIC: Cranial nerves II-XII intact without motor/sensory deficit. psych-nml affect Extrem: General: Yes normal to inspection Results Labs CBC & Chem 7: 07/05/22 05:55 07/05/22 05:55 Labs: Short CBC 07/05/22 Range/Units 05:55 WBC 12.3 H (4.8-10.8) X10*3/uL Hgb 11.6 L (12.0-16.0) g/dl Hct 38.6 (37.0-47.0) % Plt Count 281 (160-400) X10*3/uL BMP 07/05/22 05:55 Sodium 144 Potassium 3.6 Chloride 106 Carbon Dioxide 24 BUN 13 Creatinine 0.62 Calcium 8.9 Microbiology Microbiology Results: Microbiology 07/04/22 01:54 Blood - Venous Blood Culture - Preliminary No growth after 24 hours. 07/04/22 01:48 Blood - Venous Blood Culture - Preliminary No growth after [address] scan - abdomen: My impression: steatosis, spinal degen with osteophytes in lower thoracic spine and loss of height Assessment and Plan (1) Epigastric abdominal pain: Status: Acute (2) Gastroparesis: Status: Acute (3) UTI (urinary tract infection): Status: Acute Plan 1/ Suspect patient has worsening nausea and pain from exacerbation of her gastroparesis from UTI, dehydration and high blood sugars. She may also have some referred pain from her spine. elevated liapse could be from this as well, abn LFT have been consistent in the past, prob 2/2 CARROLL PLAN: 1/cont with rx for uti 2/ can use erythromycin IV or azithromycin as pro motility agent, may also help her resp tract symptoms 3/ avoid narcotics 4/ can consider trial od TCA may help her alf pain issues and gastroparesis. 5/ monitor and improve glucose control, 6/ if sx persist then egd Procedures Date of Service Date of Service: 07/05/22
[2022-07-05 08:01] LABS: Glucose, Whole Blood 161 mg/dL (60-115)
[2022-07-05] MEDS: Lactated Ringers 1,000 ML 125 ML IVCONT (08:13)
[2022-07-05] MEDS: Metoclopramide HCl 5 MG TABLET PO ×3 (08:14→16:05)
[2022-07-05] MEDS: Levothyroxine Sodium 112 MCG TABLET PO (08:14)
[2022-07-05] MEDS: DULoxetine HCl 60 MG CAPSULE.DR PO (08:14)
[2022-07-05] MEDS: Lipase/Prot/Amylase 24/76/120K 1 CAP CAPSULE.DR PO ×4 (08:14→20:06)
[2022-07-05] MEDS: amLODIPine Besylate 10 MG TABLET PO (08:14)
[2022-07-05] MEDS: Metoprolol Tartrate 50 MG TABLET PO ×2 (08:14→20:05)
[2022-07-05] MEDS: Pyridoxine HCl (Vitamin B6) 50 MG TABLET 100 MG PO (08:14)
[2022-07-05] MEDS: Gabapentin 400 MG CAPSULE 800 MG PO ×3 (08:14→20:06)
[2022-07-05] MEDS: Fluticasone/Vilanterol 200/25 BLST.W.DEV 1 PUFF INHALE (08:42)
[2022-07-05] MEDS: Acetaminophen 325 MG TABLET 650 MG PO ×2 (09:47→20:12)
[2022-07-05] MEDS: LORazepam 0.5 MG TABLET PO (10:32)
[2022-07-05 11:12] LABS: Glucose, Whole Blood 164 mg/dL (60-115)
--- NOTE | 2022-07-05 11:38 | MHC.CM.PN ---
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
[2022-07-05] MEDS: Insulin Lispro 100 UNIT/ML 3 ML VIAL SUBCUT ×2 (12:07→21:46)
--- NOTE | 2022-07-05 13:50 | P.PNIM_ITS ---
Subjective Subjective Date of Service: 07/05/22 Interval History: seen and examined this morning Follow-up for abdominal pain nausea resolved, requesting to advance diet reporting suprapubic pain primarily reporting dry cough this morning, denies shortness of breath Review of Systems Review of Systems: Yes all other systems are reviewed and are negative Constitutional Constitutional: Denies chills and Denies fever(s) ENT Ears, Nose, Mouth, and Throat: Denies dizziness Cardiovascular Cardiovascular: Denies chest pain, Denies palpitations and Denies dyspnea Respiratory Respiratory: Reports cough and Denies dyspnea Gastrointestinal Gastrointestinal: Reports abdominal pain, Denies nausea and Denies vomiting Neurologic Neurologic: Denies dizziness Endocrine Endocrine: Denies palpitations Physical Exam Vital Signs: Vital Signs: Last Vital Signs Temp 97.6 F 07/05/22 11:58 Pulse 87 07/05/22 11:58 Resp 18 07/05/22 11:58 BP 150/70 H 07/05/22 11:58 Pulse Ox 93 07/05/22 11:58 O2 Del Method 07/05/22 11:58 O2 Flow Rate 2 07/05/22 04:15 BMI result Body Mass Index 42.0 Const: General: cooperative, comfortable, alert and awake Nutritional Appearance: obese Orientation/consciousness: patient oriented x3 Resp: Effort & Inspection: normal respiratory effort and able to speak in complete sentences Auscultation: clear to auscultation bilaterally Cardio: Rate: regular rate Heart sounds: S1 normal heart sound present and S2 normal heart sound present GI: Inspection: No distended Palpation (GI): Soft to palpation and nontender Neuro: General: patient oriented x3 and CN's II-XI intact bilaterally Extrem: General: Yes no pedal edema Objective Data Active Medications Acetaminophen (Acetaminophen 325 Mg Tablet) 650 mg PO Q6H PRN PRN Reason: Pain, Mild (Pain Scale 1-3) Last Admin: 07/05/22 09:47 Dose: 650 mg Documented By: SYLWIA Albuterol Sulfate (Albuterol Sulfate 90 Mcg 8 Gm Inhaler) 2 puff INHALE Q6H PRN PRN Reason: shortness of breath or wheezing Amlodipine Besylate (Amlodipine Besylate 10 Mg Tablet) 10 mg PO DAILY [facility]; Protocol Last Admin: 07/05/22 08:14 Dose: 10 mg Documented By: SYLWIA Lipase/Protease/Amylase (Lipase/Prot/Amylase 24/76/120k 1 Cap Capsule.) 1 cap PO QIDACHS [facility] Last Admin: 07/05/22 12:07 Dose: 1 cap Documented By: SYLWIA Clonidine HCl (Clonidine Hcl 0.1 Mg Tablet) 0.1 mg PO TID PRN; Protocol PRN Reason: Agitation or Anxiety Clotrimazole (Clotrimazole 1 % Cream 15 Gm Tube) 1 appl TOPICAL BID [facility]; Prot ocol Last Admin: 07/05/22 08:18 Dose: Not Given Documented By: SYLWIA Non-Admin Reason: Patient Refused Dextrose (Dextrose 50 % 25 Gm/50 Ml Syringe) 25 gm IVPUSH Q15M PRN; Protocol PRN Reason: per Hypoglycemia Standing Ord. Docusate Sodium (Docusate Sodium 100 Mg Capsule) 100 mg PO DAILY PRN PRN Reason: Constipation Duloxetine HCl (Duloxetine Hcl 60 Mg Capsule.) 60 mg PO DAILY [facility] Last Admin: 07/05/22 08:14 Dose: 60 mg Documented By: SYLWIA Enoxaparin Sodium (Enoxaparin Sodium 40 Mg/0.4 Ml Syringe) 40 mg SUBCUT Q24H [facility] Last Admin: 07/05/22 05:01 Dose: 40 mg Documented By: PURA Fluticasone/Vilanterol (Fluticasone/Vilanterol 200/25 Blst.W.Dev) 1 puff INHALE RDAILY [facility] Last Admin: 07/05/22 08:42 Dose: 1 puff Documented By: RAF Gabapentin (Gabapentin 400 Mg Capsule) 800 mg PO TID [facility] Last Admin: 07/05/22 08:14 Dose: 800 mg Documented By: SYLWIA Glucose (Glucose Gel 15 Gm Gel..Gram.) 15 gm PO Q15M PRN; Protocol PRN Reason: per Hypoglycemia Standing Ord. Hydralazine HCl (Hydralazine Hcl 20 Mg/Ml Vial) 5 mg IVPUSH Q6H PRN; Protocol PRN Reason: SBP >180 Ceftriaxone Sodium 1 gm/ (Sodium Chloride) 50 mls @ 100 mls/hr IV Q24H [facility] Last Infusion: 07/05/22 04:29 Dose: 0 mls/hr Documented By: PURA Lactated Ringer's (Lr) 1,000 mls @ 125 mls/hr IVCONT .Q8H [facility] Last Admin: 07/05/22 08:13 Dose: 125 mls/hr Documented By: SYLWIA Insulin Human Lispro (Insulin Lispro 100 Unit/Ml 3 Ml Vial) 0 unit SUBCUT Q IDACHS [facility]; Protocol Last Admin: 07/05/22 12:07 Dose: 2 unit Documented By: SYLWIA Levothyroxine Sodium (Levothyroxine Sodium 112 Mcg Tablet) 112 mcg PO DAILY [facility] Last Admin: 07/05/22 08:14 Dose: 112 mcg Documented By: SYLWIA Lorazepam (Lorazepam 0.5 Mg Tablet) 0.5 mg PO DAILY PRN PRN Reason: Severe Anxiety and Panic Disorder Last Admin: 07/05/22 10:32 Dose: 0.5 mg Documented By: SYLWIA Metoclopramide HCl (Metoclopramide Hcl 5 Mg Tablet) 5 mg PO TIDAC [facility] Last Admin: 07/05/22 12:07 Dose: 5 mg Documented By: SYLWIA Metoprolol Tartrate (Metoprolol Tartrate 50 Mg Tablet) 50 mg PO BID [facility]; Protocol Last Admin: 07/05/22 08:14 Dose: 50 mg Documented By: SYLWIA Mirtazapine (Mirtazapine 30 Mg Tablet) 30 mg PO BEDTIME [facility] Last Admin: 07/04/22 20:11 Dose: 30 mg Documented By: MORRINOsvaldo Morphine Sulfate (Morphine Sulfate 4 Mg/Ml Cartridge) 4 mg IVPUSH Q4H PRN; Protocol PRN Reason: Pain, Severe (Pain Scale 7-10) Last Admin: 07/04/22 16:41 Dose: 4 mg Documented By: SYLWIA Pharmacy Consult (Consult Rx Perform Med Rec) 1 each MISCELLANE ONCE PRN PRN Reason: Consult order Prochlorperazine Edisylate (Prochlorperazine Edisylate 10 Mg/2 Ml Vial) 5 mg IVPUSH Q4H PRN PRN Reason: Nausea and Vomiting Last Admin: 07/04/22 14:27 Dose: 5 mg Documented By: SYLWIA Pyridoxine HCl (Pyridoxine Hcl (Vitamin B6) 50 Mg Tablet) 100 mg PO DAILY [facility] Last Admin: 07/05/22 08:14 Dose: 100 mg Documented By: SYLWIA Senna (Sennosides 8.6 Mg Tablet) 17.2 mg PO BEDTIME [facility] Last Admin: 07/04/22 20:12 Dose: 17.2 mg Documented By: PURA Sodium Chloride (0.9 % Sodium Chloride Flush 3 Ml Syringe) 3 ml IVFLUSH QSHIFT [facility] Last Admin: 07/05/22 07:29 Dose: Not Given Documented By: SYLWIA Non-Admin Reason: IV Running Labs CBC & Chem 7: 07/05/22 05:55 07/05/22 05:55 Labs: Laboratory Results - last 24 hr 07/04/22 07/04/22 07/04/22 15:26 20:02 23:56 MCV MCH MCHC RDW Plt Count MPV Absolute Nucleated RBC Nucleated RBC % (auto) Anion Gap Estim Creat Clear Calc Estimated GFR POC Glucose 197 H 136 H 133 H Random Glucose Calcium 07/05/22 07/05/22 07/05/22 05:55 05:55 07:57 MCV 75.1 L MCH 22.6 L MCHC 30.1 L RDW 17.7 H Plt Count 281 MPV 11.1 Absolute Nucleated RBC 0.000 Nucleated RBC % (auto) 0.0 Anion Gap 18 Estim Creat Clear Calc 136.9 Estimated GFR > 60 POC Glucose 161 H Random Glucose 124 H Calcium 8.9 07/05/22 11:03 MCV MCH MCHC RDW Plt Count MPV Absolute Nucleated RBC Nucleated RBC % (auto) Anion Gap Estim Creat Clear Calc Estimated GFR POC Glucose 164 H Random Glucose Calcium Microbiology Microbiology Results: Microbiology 07/04/22 01:54 Blood Culture - Preliminary Blood - Venous No growth after 24 hours. 07/04/22 01:48 Blood Culture - Preliminary Blood - Venous No growth after 24 hours. Assessment and Plan (1) Intractable nausea and vomiting: Status: Acute Plan 57-year-old female with extensive past medical history that includes obesity presents to the hospital with complaints of epigastric as well as right upper quadrant abdominal pain, nausea vomiting sepsis meets sepsis criteria with tachycardia, tachypnea, and leukocytosis possible source UTI. - continue empiric antibiotics - follow results of cultures epigastric abdominal pain likely related to diabetic gastroparesis. Pain similar as previous presentation although slight elevation in lipase, normal pancreas on CT scan pain improving, nausea resolved, advanced to clear liquids abdominal US unremarkable -seen by GI - rec trial of erythromycin for a day or 2 to increase gastric motility -repeat EKG in am to monitor QTC -contiue reglan UTI UA not highly suggestive of UTI but reporting suprapubic pain - continue IV ceftriaxone - follow results of urine culture diabetes with neuropathy and proteinuria Hold trulicity, metformin - continue sliding scale, ADA diet - continue gabapentin for neuropathy - outpatient follow up for proteinuria hypothyroidism - continue levothyroxine HTN bp improving now that pt able to keep down po meds continue Norvasc, metoprolol chronic right heart failure lasix on hold monitor fluid status closely resume Lasix when tolerating regular diet and off IV fluid mood - continue home medications Morbid obesity BMI 42.0 weight loss encouraged DVT prophylaxis: Lovenox attending - dr. obrien Requires ongoing inpatient hospitalization for IV fluids, and IV antibiotics Quality Stroke Does the patient have a stroke diagnosis?: No VTE Prior VTE?: No VTE Risk Level:: Medical - moderate - high VTE Device Contraindication: Treatment Not Indicated VTE Drug Contraindication: N/A - Med Ordered
[2022-07-05 14:39] LABS: Magnesium 1.8 mg/dL (1.6-2.6)
[2022-07-05 16:05] LABS: Glucose, Whole Blood 146 mg/dL (60-115)
[2022-07-05] MEDS: Erythromycin Lactobionate 250 MG in 0.9 % Sodium Chloride 100 ML 100 MG IV ×2 (16:05→21:46)
[2022-07-05] MEDS: 0.9 % Sodium Chloride Flush 3 ML SYRINGE IVFLUSH ×2 (16:06→21:49)
[2022-07-05] MEDS: Lactated Ringers 1,000 ML 100 ML IVCONT (16:21)
[2022-07-05 19:56] LABS: Glucose, Whole Blood 196 mg/dL (60-115)
[2022-07-05] MEDS: Sennosides 8.6 MG TABLET 17.2 MG PO (20:05)
[2022-07-05] MEDS: Mirtazapine 30 MG TABLET PO (20:05)
[2022-07-06] VITALS (9 sets, daily range): BP systolic 97–190; BP diastolic 54–80; PULSE 69–93; RESP 16–18; TEMP 36–37.2; O2SAT 91–96
[2022-07-06] MEDS: Erythromycin Lactobionate 250 MG in 0.9 % Sodium Chloride 100 ML 100 MG IV ×4 (04:36→23:17)
[2022-07-06] MEDS: cefTRIAXone sodium 1 GM in 0.9 % Sodium Chloride 50 ML IV (04:36)
[2022-07-06] MEDS: Benzonatate 100 MG CAPSULE PO ×2 (04:43→21:02)
[2022-07-06] MEDS: Enoxaparin Sodium 40 MG/0.4 ML SYRINGE SUBCUT (05:45)
[2022-07-06] MEDS: LORazepam 0.5 MG TABLET PO (06:27)
[2022-07-06] MEDS: oxyCODONE HCl Immed Release 5 MG TABLET PO ×2 (06:39→23:54)
[2022-07-06 06:49] LABS: Glucose, Whole Blood 177 mg/dL (60-115)
[2022-07-06 07:06] LABS: Glucose, Whole Blood 190 mg/dL (60-115)
[2022-07-06] MEDS: hydrALAZINE HCl 20 MG/ML VIAL 5 MG IVPUSH (08:00)
[2022-07-06] MEDS: DULoxetine HCl 60 MG CAPSULE.DR PO (08:01)
[2022-07-06] MEDS: Lipase/Prot/Amylase 24/76/120K 1 CAP CAPSULE.DR PO ×4 (08:01→21:02)
[2022-07-06] MEDS: Pyridoxine HCl (Vitamin B6) 50 MG TABLET 100 MG PO (08:01)
[2022-07-06] MEDS: Levothyroxine Sodium 112 MCG TABLET PO (08:01)
[2022-07-06] MEDS: amLODIPine Besylate 10 MG TABLET PO (08:01)
[2022-07-06] MEDS: Metoprolol Tartrate 50 MG TABLET PO ×2 (08:01→21:02)
[2022-07-06] MEDS: Gabapentin 400 MG CAPSULE 800 MG PO ×3 (08:01→21:01)
[2022-07-06] MEDS: Metoclopramide HCl 5 MG TABLET PO ×3 (08:01→17:01)
[2022-07-06] MEDS: 0.9 % Sodium Chloride Flush 3 ML SYRINGE IVFLUSH ×3 (08:02→21:04)
[2022-07-06] MEDS: Fluticasone/Vilanterol 200/25 BLST.W.DEV 1 PUFF INHALE (09:04)
--- NOTE | 2022-07-06 10:12 | HO.PM.IMPN ---
Subjective Subjective Date of Service: 07/06/22 Interval History: Follow-up for abdominal pain nausea and pain resolved Now with headache Review of Systems Review of Systems: Yes all other systems are reviewed and are negative Constitutional Constitutional: Denies chills and Denies fever(s) ENT Ears, Nose, Mouth, and Throat: Denies dizziness Cardiovascular Cardiovascular: Denies chest pain, Denies palpitations and Denies dyspnea Respiratory Respiratory: Reports cough and Denies dyspnea Gastrointestinal Gastrointestinal: Reports abdominal pain, Denies nausea and Denies vomiting Neurologic Neurologic: Denies dizziness Endocrine Endocrine: Denies palpitations Physical Exam Vital Signs: Vital Signs: Last Vital Signs Temp 98.6 F 07/06/22 06:57 Pulse 84 07/06/22 09:06 Resp 18 07/06/22 09:06 BP 148/64 H 07/06/22 10:03 Pulse Ox 96 07/06/22 06:57 O2 Del Method 07/06/22 06:57 O2 Flow Rate 2 07/06/22 06:57 BMI result Body Mass Index 42.0 Appearing in no acute distress lung sounds are clear to auscultation heart regular rate rhythm, clear S1, S2 positive bowel sounds, abdomen is soft, nontender, obese neuro patient is alert x3, no focal deficits Objective Data Active Medications Acetaminophen (Acetaminophen 325 Mg Tablet) 650 mg PO Q6H PRN PRN Reason: Pain, Mild (Pain Scale 1-3) Last Admin: 07/05/22 20:12 Dose: 650 mg Documented By: FRANKIE Albuterol Sulfate (Albuterol Sulfate 90 Mcg 8 Gm Inhaler) 2 puff INHALE Q6H PRN PRN Reason: shortness of breath or wheezing Amlodipine Besylate (Amlodipine Besylate 10 Mg Tablet) 10 mg PO DAILY [facility]; Protocol Last Admin: 07/06/22 08:01 Dose: 10 mg Documented By: JIA Lipase/Protease/Amylase (Lipase/Prot/Amylase 24/76/120k [address] Caps[address].Dr) 1 cap PO QIDACHS [facility] Last Admin: 07/06/22 08:01 Dose: 1 cap Documented By: JIA Benzonatate (Benzonatate 100 Mg Capsule) 100 mg PO TID PRN PRN Reason: Cough Last Admin: 07/06/22 04:43 Dose: 100 mg Documented By: FRANKIE Clonidine HCl (Clonidine Hcl 0.1 Mg Tablet) 0.1 mg PO TID PRN; Protocol PRN Reason: Agitation or Anxiety Clotrimazole (Clotrimazole 1 % Cream 15 Gm Tube) 1 appl TOPICAL BID [facility]; Protocol Last Admin: 07/06/22 08:07 Dose: Not Given Documented By: JIA Non-Admin Reason: Patient Refused Dextrose (Dextrose 50 % 25 Gm/50 Ml Syringe) 25 gm IVPUSH Q15M PRN; Protocol PRN Reason: per Hypoglycemia Standing Ord. Docusate Sodium (Docusate Sodium 100 Mg Capsule) 100 mg PO DAILY PRN PRN Reason: Constipation Duloxetine HCl (Duloxetine Hcl 60 Mg Capsule.Dr) 60 mg PO DAILY [facility] Last Admin: 07/06/22 08:01 Dose: 60 mg Documented By: JIA Enoxaparin Sodium (Enoxaparin Sodium 40 Mg/0.4 Ml Syringe) 40 mg SUBCUT Q24H [facility] Last Admin: 07/06/22 05:45 Dose: 40 mg Documented By: FRANKIE Fluticasone/Vilanterol (Fluticasone/Vilanterol 200/25 Blst.W.Dev) 1 puff INHALE RDAILY [facility] Last Admin: 07/06/22 09:04 Dose: 1 puff Documented By: ZACH Gabapentin (Gabapentin 400 Mg Capsule) 800 mg PO TID [facility] Last Admin: 07/06/22 08:01 Dose: 800 mg Documented By: JIA Glucose (Glucose Gel 15 Gm Gel..Gram.) 15 gm PO Q15M PRN; Protocol PRN Reason: per Hypoglycemia Standing Ord. Hydralazine HCl (Hydralazine Hcl 20 Mg/Ml Vial) 5 mg IVPUSH Q6H PRN; Protocol PRN Reason: SBP >180 Last Admin: 07/06/22 08:00 Dose: 5 mg Documented By: JIA Ceftriaxone Sodium 1 gm/ (Sodium Chloride) 50 mls @ 100 mls/hr IV Q24H [facility] Last Infusion: 07/06/22 07:36 Dose: 100 mls/hr Documented By: FRANKIE Erythromycin Lactobionate 250 (mg/ Sodium Chloride) 100 mls @ 100 mls/hr IV Q6H [facility] Last Infusion: 07/06/22 07:35 Dose: 100 mls/hr Documented By: FRANKIE Insulin Human Lispro (Insulin Lispro 100 Unit/Ml 3 Ml Vial) 0 unit SUBCUT QIDACHS [facility]; Protocol Last Admin: 07/06/22 08:05 Dose: Not Given Documented By: JIA Non-Admin Reason: Nausea Comments: per sliding scale 2 units due - pt reported they will not be eating breakfast, insulin held at this time Levothyroxine Sodium (Levothyroxine Sodium 112 Mcg Tablet) 112 mcg PO DAILY [facility] Last Admin: 07/06/22 08:01 Dose: 112 mcg Documented By: JIA Lorazepam (Lorazepam 0.5 Mg Tablet) 0.5 mg PO DAILY PRN PRN Reason: Severe Anxiety and Panic Disorder Last Admin: 07/06/22 06:27 Dose: 0.5 mg Documented By: FRANKIE Metoclopramide HCl (Metoclopramide Hcl 5 Mg Tablet) 5 mg PO TIDAC [facility] Last Admin: 07/06/22 08:01 Dose: 5 mg Documented By: JIA Metoprolol Tartrate (Metoprolol Tartrate 50 Mg Tablet) 50 mg PO BID [facility]; Protocol Last Admin: 07/06/22 08:01 Dose: 50 mg Documented By: JIA Mirtazapine (Mirtazapine 30 Mg Tablet) 30 mg PO BEDTIME [facility] Last Admin: 07/05/22 20:05 Dose: 30 mg Documented By: FRANKIE Pharmacy Consult (Consult Rx Perform Med Rec) 1 each MISCELLANE ONCE PRN PRN Reason: Consult order Pyridoxine HCl (Pyridoxine Hcl (Vitamin B6) 50 Mg Tablet) 100 mg PO DAILY [facility] Last Admin: 07/06/22 08:01 Dose: 100 mg Documented By: JIA Senna (Sennosides 8.6 Mg Tablet) 17.2 mg PO BEDTIME [facility] Last Admin: 07/05/22 20:05 Dose: 17.2 mg Documented By: FRANKIE Sodium Chloride (0.9 % Sodium Chloride Flush 3 Ml Syringe) 3 ml IVFLUSH QSHIFT [facility] Last Admin: 07/06/22 08:02 Dose: 3 ml Documented By: JIA Labs CBC & Chem 7: 07/05/22 05:55 07/05/22 05:55 Labs: Laboratory Results - last 24 hr 07/05/22 07/05/22 07/05/22 05:55 11:03 15:49 POC Glucose 164 H 146 H Magnesium 1.8 07/05/22 07/06/22 07/06/22 19:11 06:45 06:57 POC Glucose 196 H 177 H 190 H Magnesium Microbiology Microbiology Results: Microbiology 07/04/22 01:54 Blood Culture - Preliminary Blood - Venous No growth after 48 hours. 07/04/22 01:48 Blood Culture - Preliminary Blood - Venous No growth after 48 hours. Assessment and Plan (1) Intractable nausea and vomiting: Status: Acute Plan 57-year-old female with extensive past medical history that includes obesity presents to the hospital with complaints of epigastric as well as right upper quadrant abdominal pain, nausea vomiting Sepsis meets sepsis criteria with tachycardia, tachypnea, and leukocytosis possible source UTI. continue empiric antibiotics follow results of cultures Epigastric abdominal pain with nausea secondary to diabetic gastroparesis although slight elevation in lipase, normal pancreas on CT scan, abdominal ultrasound unremarkable pain improving, nausea resolved, advanced to regular diet seen by GI - rec trial of erythromycin for 48 hours to increase gastric motility (started 07/05/22) continue reglan UTI continue IV ceftriaxone follow results of urine culture Diabetes with neuropathy and proteinuria Sliding scale, ADA diet Gabapentin for neuropathy outpatient follow up for proteinuria hypothyroidism continue levothyroxine HTN. Stable continue Norvasc, metoprolol Heart failure with preserved ejection fraction, chronic monitor fluid status closely resume Lasix when tolerating regular diet and off IV fluid Mental Health continue home medications Morbid obesity BMI 42.0 discussed importance of weight loss as this may be contributing to worsening of other comorbidities DVT prophylaxis: Lovenox Full code attending Dr. Ho Requires ongoing inpatient hospitalization for IV fluids, and IV antibiotics Quality Stroke Does the patient have a stroke diagnosis?: No VTE Prior VTE?: No VTE Risk Level:: Medical - moderate - high VTE Device Contraindication: Treatment Not Indicated VTE Drug Contraindication: N/A - Med Ordered
[2022-07-06 11:25] LABS: Glucose, Whole Blood 227 mg/dL (60-115)
[2022-07-06] MEDS: Insulin Lispro 100 UNIT/ML 3 ML VIAL SUBCUT (11:39)
--- NOTE | 2022-07-06 12:17 | P.CDIC_ITS ---
CDI Concurrent Query Documentation Clarification: PHYSICIAN'S DOCUMENTATION REQUEST Date of Query: 07/06/22 1217 Patient Name: Bonnie Hickman Admit Date: 07/04/22 Dear Doctor, A review of the medical record indicates additional documentation may be needed. Please review below and update the documentation accordingly. Clinical Indicators: Risk Factors/Clinical Indicators/Treatments PN 07/05 - Diabetes with neuropathy Hold Trulicity, Metformin. Please clarify the following regarding Diabetes Mellitus with Neuropathy: specifics * Autonomic neuropathy * Peripheral neuropathy * Mononeuropathy * Polyneuropathy * Other complication ? please specify * Unable to determine Use of terms such as suspected, likely, concern for, or probable (associated with a specific diagnosis that is being evaluated, monitored, or treated as if it exists) are acceptable and can be coded in the inpatient setting, when documented at the time of discharge. Thank you, Pascale Sewell [facility], CDIS Extension: [phone] Please use your independent medical judgment in providing your response. THIS QUERY IS PART OF THE PERMANENT MEDICAL RECORD Other Diagnosis: peripheral neuropathy
[2022-07-06] MEDS: cloNIDine HCL 0.1 MG TABLET PO ×2 (15:26→21:02)
[2022-07-06] MEDS: Acetaminophen 325 MG TABLET 650 MG PO (15:27)
[2022-07-06 15:51] LABS: Glucose, Whole Blood 160 mg/dL (60-115)
[2022-07-06 20:00] LABS: Glucose, Whole Blood 136 mg/dL (60-115)
[2022-07-06] MEDS: Butalb/Acetamin/Caff 50/325/40 TABLET 1 TAB PO (21:01)
[2022-07-06] MEDS: Sennosides 8.6 MG TABLET 17.2 MG PO (21:02)
[2022-07-06] MEDS: Mirtazapine 30 MG TABLET PO (21:02)
[2022-07-07 04:00] VITALS: BP 99/54; PULSE 69; RESP 18; TEMP 36.2; O2SAT 94
[2022-07-07] MEDS: Erythromycin Lactobionate 250 MG in 0.9 % Sodium Chloride 100 ML 100 MG IV (04:11)
[2022-07-07] MEDS: Enoxaparin Sodium 40 MG/0.4 ML SYRINGE SUBCUT (04:12)
[2022-07-07] MEDS: cefTRIAXone sodium 1 GM in 0.9 % Sodium Chloride 50 ML IV (04:12)
[2022-07-07] MEDS: Acetaminophen 325 MG TABLET 650 MG PO (04:19)
[2022-07-07] MEDS: Benzonatate 100 MG CAPSULE PO (06:32)
[2022-07-07 06:49] VITALS: BP 122/61; PULSE 74; RESP 18; TEMP 36.1; O2SAT 92
[2022-07-07 07:05] LABS: Glucose, Whole Blood 187 mg/dL (60-115)
[2022-07-07] MEDS: Lidocaine 4 % Patch ADH..PATCH 1 PATCH TRANSDERMA (07:37)
[2022-07-07] MEDS: Levothyroxine Sodium 112 MCG TABLET PO (07:38)
[2022-07-07] MEDS: Gabapentin 400 MG CAPSULE 800 MG PO (07:38)
[2022-07-07] MEDS: DULoxetine HCl 60 MG CAPSULE.DR PO (07:38)
[2022-07-07] MEDS: Metoclopramide HCl 5 MG TABLET PO (07:38)
[2022-07-07] MEDS: Insulin Lispro 100 UNIT/ML 3 ML VIAL SUBCUT (07:38)
[2022-07-07] MEDS: Pyridoxine HCl (Vitamin B6) 50 MG TABLET 100 MG PO (07:38)
[2022-07-07] MEDS: Lipase/Prot/Amylase 24/76/120K 1 CAP CAPSULE.DR PO (07:38)
[2022-07-07] MEDS: amLODIPine Besylate 10 MG TABLET PO (07:38)
[2022-07-07] MEDS: 0.9 % Sodium Chloride Flush 3 ML SYRINGE IVFLUSH (07:39)
[2022-07-07] MEDS: Metoprolol Tartrate 50 MG TABLET PO (07:39)
[2022-07-07] MEDS: cloNIDine HCL 0.1 MG TABLET PO (07:39)
[2022-07-07] MEDS: Fluticasone/Vilanterol 200/25 BLST.W.DEV 1 PUFF INHALE (07:46)
--- NOTE | 2022-07-07 09:07 | P.DS_ITS ---
DS: Providers Provider Date of Service: 07/07/22 Date of admission: 07/04/22 04:41 Primary care physician: Jenny Bell MD Consults: 07/04/22 05:17 Consult to Gastroenterology Routine Consulting Provider: Bunny Ballard Reason for consultation: intractable N/V, Dilatation of CBD on CT Attending physician on discharge: Justin Ho Discharging clinician: Josie Martin DS: Diagnosis Discharge Diagnosis (1) Intractable nausea and vomiting: Status: Acute DS: Summary Hospital Course Hospital Course: as admitting provider this is a 57-year-old female with? extensive past medical history of? hypothyroidism, HLD, obesity, anxiety disorder, diabetes, chronic pain, asthma, depression, small-bowel motility disorder, among others who presents to the hospital with complaints of intractable nausea vomiting.? Patient reports that her symptoms started 2 days ago, she has Zofran p.o. at home, tried it for several times with no relief of her nausea or vomiting, therefore her PCP as heard to come to the ED.? She is also complaining of epigastric pain that is radiating to the back, as well as to the right and left, ? Pain is constant, a out of 10, no relieving or exacerbating factors. she reports no fever or chills.? No diarrhea constipation.? She reports no chest pain.? She has? right flank pain. ? Not radiating.? Constant. ? Which also started today's ago.? Patient denies any urinary symptoms including no urinary frequency, urgency, or dysuria.? She has no headache or change in vision, no numbness weakness or tingling, no extremity edema.?On arrival to the ED patient? vitals are significant for? heart rate of 114, blood pressure of 190/91,? satting 98% on room air Labs are significant for? WBC count of 15, hemoglobin of 14, hematocrit 46.6, left shift, lipase of 181, ? She has elevated alk-phos of 138, as well as ALT of 34, bilirubin and AST are normal.UA that is positive for leukocyte Estrace and WBC, abdominal pelvic CT shows no acute abnormality although there is? mention of dilatation of the bile duct with CBD measuring 6 mm. Patient started on fluids and IV antibiotics will be admitted for further management . Sepsis. Could have all been related to respiratory difficulties met sepsis criteria with tachycardia, tachypnea, and leukocytosis possible source UTI, urine culture ruled out Treated with empiric antibiotics Negative cultures Epigastric abdominal pain with nausea secondary to diabetic gastroparesis although slight elevation in lipase, normal pancreas on CT scan, abdominal ultrasound unremarkable pain improved, nausea resolved and diet advanced to regular Seen evaluated by Gastroenterology with recommendation to try urethra mycin for 48 hour to decreased gastric motility with good effect, completed treatment UTI Initially treated with IV ceftriaxone Urine culture came back mixed, completed 2 days of IV antibiotics no need to continue Diabetes with neuropathy and proteinuria Sliding scale, ADA diet Gabapentin for neuropathy outpatient follow up for proteinuria hypothyroidism continue levothyroxine HTN.? Stable continue Norvasc, metoprolol Heart failure with preserved ejection fraction, chronic. No exacerbation Continue Lasix Mental Health continue home medications Morbid obesity BMI 42.0 discussed importance of weight loss as this may be contributing to worsening of other comorbidities Obstructive sleep apnea Continue CPAP at home Time Spent with Patient Time attestation: Total time spent providing and/or coordinating discharge services: Discharge coordination time: Greater than 30 minutes Quality: Safe Use of Opioids Does Pt have an Active Cancer Diagnosis on the Problem List?: No Quality: Stroke Does the patient have a stroke diagnosis?: No Physical Exam Vital Signs: Vital Signs: Last Vital Signs Temp 97 F 07/07/22 06:49 Pulse 74 07/07/22 06:49 Resp 18 07/07/22 06:49 BP 122/61 07/07/22 06:49 Pulse Ox 92 07/07/22 06:49 O2 Del Method 07/07/22 06:49 O2 Flow Rate 2 07/06/22 06:57 BMI result Body Mass Index 42.0 Appearing in no acute distress head is normocephalic atraumatic eyes pupils are PERRLA sclera is anicteric mouth throat mucous membranes are intact and moist neck is supple no lymphadenopathy, no JVD noted lung sounds are clear to auscultation heart regular rate rhythm, clear S1, S2 positive bowel sounds, abdomen is soft, nontender, obese neuro patient is alert x3, no focal deficits DS: Data Data Completed and Pending Labs on day of discharge: Laboratory Results - last 24 hr 07/06/22 07/06/22 07/06/22 11:08 15:19 19:31 POC Glucose 227 H 160 H 136 H 07/07/22 06:50 POC Glucose 187 H Preliminary micro results at discharge 07/04/22 01:54 Blood Culture - Preliminary Blood - Venous No growth after 48 hours. 07/04/22 01:48 Blood Culture - Preliminary Blood - Venous No growth after 48 hours. Discharge Plan Discharge Anticipated Discharge Date/Time: 07/07/22 09:04 Patient Disposition: Home, Self-Care Discharge Diagnosis: Sepsis Epigastric abdominal pain with nausea secondary to diabetic gastroparesis Referrals: Jenny Mendosa MD [Primary Care Provider] - 1 Week (CALL PCP OFFICE TO SCHEDULE FOLLOW UP) Discharge Medications: Continued (DME) lancets [FreeStyle Lancets] 28 gauge misc See Rx Instructions .Route Qty: 100 6RF Rx Instructions: BID (DME) lancets [FreeStyle Lancets] 28 gauge misc See Rx Instructions .Route Qty: 100 3RF Rx Instructions: Use 1 lancet once a day metformin 500 mg tablet 500 mg PO BID Qty: 180 2RF (DME) FreeStyle Julianne 2 Sensor Kit See Rx Instructions .Route Qty: 1 2RF Rx Instructions: As directed (DME) diabetic supplies, [facility]ellan. [facility] See Rx Instructions .Route Qty: 1 0RF Rx Instructions: As directed (DME) heating pads Pad See Rx Instructions .Route Qty: 1 0RF Rx Instructions: As directed sennosides [senna] 8.6 mg tablet 17.2 mg PO BEDTIME Qty: 60 3RF Hold Instructions: Doctor's Order (DME) Gel mattress overlay Misc See Rx Instructions .Route Qty: 1 0RF Rx Instructions: As directed (DME) Toilet seat riser See Rx Instructions .Route .MEDSUPPLY Qty: 1 0RF Rx Instructions: As directed (DME) walker [facility] [place] See Rx Instructions .Route Qty: 1 0RF Rx Instructions: As directed (DME) miscellaneous medical supply [facility] [place] See Rx Instructions .ROUTE .MEDSUPPLY Qty: 1 0RF Rx Instructions: toilet seat elevator (DME) blood pressure monitor Kit See Rx Instructions .Route Qty: 1 0RF Rx Instructions: Use as needed amlodipine 10 mg tablet 10 mg PO DAILY Qty: 90 1RF (DME) pen needle, diabetic [BD Ultra-Fine Mini Pen Needle] 31 gauge x 3/16 needle See Rx Instructions .Route Qty: 100 0RF Rx Instructions: As directed (DME) insulin syringe-needle U-100 [BD Insulin Syringe Ultra-Fine] 0.5 mL 31 gauge x 5/16 syringe See Rx Instructions .Route Qty: 100 3RF Rx Instructions: Use 1 three times a day pyridoxine (vitamin B6) 100 mg tablet 100 mg PO DAILY 90 Days Qty: 90 1RF (DME) diabetic shoes and inserts See Rx Instructions .Route .MEDSUPPLY Qty: 1 1RF Rx Instructions: As directed meclizine 25 mg tablet 25 mg PO TID PRN (Reason: dizziness) 30 Days Qty: 90 1RF (DME) FreeStyle Lite Strips Strip See Rx Instructions .Route Qty: 100 3RF Rx Instructions: use 1 test strip once a day clotrimazole 1 % cream 1 appl topical BID 28 Days Qty: 30 1RF metoprolol tartrate 50 mg tablet 50 mg PO BID 90 Days Qty: 180 1RF levothyroxine 112 mcg tablet 112 mcg PO DAILY 90 Days Qty: 90 1RF gabapentin 800 mg tablet 800 mg PO TID 30 Days Qty: 90 0RF duloxetine 60 mg capsule,delayed release(DR/EC) 60 mg PO DAILY 90 Days Qty: 90 1RF (DME) Shower Chair Misc See Rx Instructions .Route Qty: 1 0RF Rx Instructions: As directed furosemide 40 mg tablet 80 mg PO DAILY acetaminophen [Tylenol Arthritis Pain] 650 mg Tablet Extended Release 650 mg PO Q8H PRN (Reason: arthritis pain) ergocalciferol (vitamin D2) 1,250 mcg (50,000 unit) capsule 1,250 mcg PO Q2W insulin lispro [Humalog U-100 Insulin] 100 unit/mL solution See Rx Instructions .ROUTE .COMPLEX Rx Instructions: Patient takes per sliding scale Trulicity 0.75 mg/0.5 mL pen injector 0.75 mg subcut WE (DME) blood pressure test kit-wrist [Blood Pressure Unit-Wrist] Kit See Rx Instructions .ROUTE .MEDSUPPLY Qty: 1 0RF Rx Instructions: to check blood pressure (DME) vaporizers Misc See Rx Instructions .ROUTE .MEDSUPPLY Qty: 1 Rx Instructions: As directed (DME) blood-glucose meter [FreeStyle Lite Meter] Kit See Rx Instructions .Route Qty: 1 0RF Rx Instructions: As directed lorazepam 0.5 mg tablet 0.5 mg PO DAILY PRN (Reason: Severe Anxiety and Panic Disorder) prochlorperazine maleate 10 mg tablet 10 mg PO Q8H PRN (Reason: Nausea) ferrous sulfate 325 mg (65 mg iron) tablet 325 mg PO DAILY 90 Days Qty: 90 1RF albuterol sulfate [Ventolin HFA] 90 mcg/actuation HFA aerosol inhaler 2 puff inhalation Q6H PRN (Reason: shortness of breath or wheezing) 30 Days Qty: 6.7 1RF lidocaine 4 % cream 1 appl topical BID PRN (Reason: pain) Qty: 30 1RF atorvastatin 10 mg tablet 10 mg PO BEDTIME 90 Days Qty: 90 1RF clonidine HCl 0.1 mg tablet 0.1 mg PO TID PRN (Reason: Agitation or Anxiety) mirtazapine 30 mg tablet 30 mg PO BEDTIME metoclopramide HCl [Reglan] 5 mg tablet 5 mg PO TIDAC Qty: 90 6RF Creon 24,000-76,000 -120,000 unit capsule,delayed release(DR/EC) 1 cap PO QID 30 Days Qty: 120 6RF Rx Instructions: administer with meals and/or snacks Advair HFA 230-21 mcg/actuation HFA aerosol inhaler 2 puff inhalation Q12H 30 Days Qty: 1 6RF Diet: Advance to usual diet Activity on Discharge: As tolerated Stand Alone Forms: Patient Portal Discharge page Activity Restrictions/Additional Instructions: Please continue taking your medications as prescribed. Please contact your senior web architect for further follow-up. You may return to the emergency department any new or worsening symptoms or concerns Care Plan Goals: complete resolution of symptoms Health Concerns: Sepsis Epigastric abdominal pain with nausea secondary to diabetic gastroparesis Plan of Treatment: Follow-up with primary care provider as needed Take all medications as prescribed Assessment: see discharge summary
== END 2022-07-07 11:01 | disposition home or self-care (01) | DRG 720 ==
LOC: HO.ED 07-04 01:28 → HO.EDOVER 07-04 04:47 → HO.S3 07-04 07:22
PROVIDERS: Nurse Practitioner Family; Physician Assistant Medical; Student in an Organized Health Care Education/Training Program; Admitting Provider Internal Medicine; Emergency Provider Emergency Medicine; PCP Internal Medicine; Visit Provider Nurse Practitioner Acute Care
DX: A41.9 Sepsis, unspecified organism (principal); E11.42 Type 2 diabetes mellitus with diabetic polyneuropathy; I50.32 Chronic diastolic (congestive) heart failure; E03.9 Hypothyroidism, unspecified; E11.43 Type 2 diabetes mellitus with diabetic autonomic (poly)neuropathy; K31.84 Gastroparesis; G89.4 Chronic pain syndrome; F41.1 Generalized anxiety disorder; E66.01 Morbid (severe) obesity due to excess calories; G47.33 Obstructive sleep apnea (adult) (pediatric); E78.5 Hyperlipidemia, unspecified; Z20.822 Contact with and (suspected) exposure to COVID-19; Z68.41 Body mass index [BMI] 40.0-44.9, adult; Z96.651 Presence of right artificial knee joint; Z91.040 Latex allergy status; Z88.0 Allergy status to penicillin; Z88.6 Allergy status to analgesic agent; Z79.4 Long term (current) use of insulin; Z79.51 Long term (current) use of inhaled steroids; Z79.84 Long term (current) use of oral hypoglycemic drugs; Z79.899 Other long term (current) drug therapy
CPT/HCPCS: 36415; 71045; 74176; 76705; 80048; 80053; 80061; 81001; 82248; 82947; 83605; 83690; 83735; 85025; 85027; 87040; 87086; 87635; 93005; 94640; 94660; 94664; 96361; 96374; 96375; 99285; J0696; J1364; J1650; J2270; J2765

== ENCOUNTER 2022-07-12 20:00 | Emergency (ER) | payer OTHER, SELFPAY ==
--- NOTE | 2022-07-12 | ECG_ITS ---
Test Reason : CHEST PAIN Blood Pressure : / mmHG Vent. Rate : 092 BPM Atrial Rate : 092 BPM P-R Int : 128 ms QRS Dur : 070 ms QT Int : 378 ms P-R-T Axes : -05 033 024 degrees QTc Int : 467 ms Normal sinus rhythm Normal ECG When compared with ECG of 04-JUL-2022 11:54, Heart rate has decreased Referred By: Generic ED Physician Electronically Signed By:VINNIE MCKINLEY MD
[2022-07-12 20:32] VITALS: BP 210/107; PULSE 90; RESP 16; TEMP 35.9; O2SAT 98; BMI 42.0
--- NOTE | 2022-07-12 21:03 | ED_ITS ---
HPI - Chest Pain General Chief Complaint: Chest Pain Stated Complaint: Vomiting Time Seen by Provider: 07/12/22 21:03 Source: patient Mode of arrival: ambulatory Limitations: no limitations History of Present Illness HPI narrative: 57-year-old female who presents emergency department for evaluation of abdominal pain, nausea, vomiting. Patient has a history of gastroparesis and the patient was recently admitted from 07/04/2022 until 07/07/2022 with similar symptoms. she had a CT scan at that time which was unremarkable, abdominal ultrasound was also unremarkable. She was treated with erythromycin for 48 cassi rs with improvement of her symptoms. she initially was treated with antibiotics for urinary tract infection however she did not grow any significant organisms after 48 hours. The patient states she was doing well until last night at around 18:00 when she developed abdominal pain. She points to her right upper quadrant and mid epigastric area when asked to localize this pain. She describes the pain is a constant, pressure pain which is 10/10. She also states she had multiple episodes of vomiting, too numerous to count. She also had 1 loose diarrheal stool. She denied fever but she states she had occasional chills. She states that she had 1 loose bowel movement with no blood in the bowel movement. She has had urinary frequency and dysuria. At the time my evaluation she stated th at her abdominal pain is 10/10. Related Data Home Medications Medication Instructions Recorded Confirmed vaporizers #1 ea 10/10/20 04/09/22 clonidine HCl 0.1 mg tablet 0.1 mg PO TID PRN Agitation or 09/19/21 07/04/22 Anxiety lorazepam 0.5 mg tablet 0.5 mg PO DAILY PRN Severe Anxiety 04/09/22 07/04/22 and Panic Disorder prochlorperazine maleate 10 mg 10 mg PO Q8H PRN Nausea 04/09/22 07/04/22 tablet mirtazapine 30 mg tablet 30 mg PO BEDTIME 06/23/22 07/04/22 acetaminophen 650 mg 650 mg PO Q8H PRN arthritis pain 07/04/22 07/04/22 tablet,extended release (Tylenol Arthritis Pain) ergocalciferol (vitamin D2) 1,250 1,250 mcg PO Q2W 07/04/22 07/04/22 mcg (50,000 unit) capsule furosemide 40 mg tablet 80 mg PO DAILY 07/04/22 07/04/22 insulin lispro 100 unit/mL See Rx Instructions .Route .COMPLEX 07/04/22 07/04/22 subcutaneous solution (Humalog U-100 Insulin) Previous Rx's Medication Instructions Recorded blood pressure test kit-wrist #1 ea 09/13/20 (Blood Pressure Unit-Wrist kit) lancets 28 gauge (FreeStyle #100 ea 05/23/21 Lancets) blood-glucose meter (FreeStyle #1 ea 09/16/21 Lite Meter kit) lancets 28 gauge (FreeStyle #100 ea 11/12/21 Lancets) metformin 500 mg tablet 500 mg PO BID #180 tabs 11/15/21 diabetic supplies, miscellan. #1 ea 12/03/21 flash glucose sensor (FreeStyle #1 ea 12/03/21 Julianne 2 Sensor kit) heating pads #1 ea 01/21/22 sennosides 8.6 mg tablet (senna) 17.2 mg PO BEDTIME #60 tabs 01/26/22 Gel mattress overlay #1 ea 01/28/22 Toilet seat riser #1 ea 03/05/22 walker #1 ea 03/05/22 blood pressure monitor #1 ea 03/10/22 miscellaneous medical supply #1 ea 03/10/22 amlodipine 10 mg tablet 10 mg PO DAILY #90 tabs 03/12/22 atorvastatin 10 mg tablet 10 mg PO BEDTIME 90 days #90 tabs 03/16/22 albuterol sulfate 90 mcg/actuation 2 puff inhalation Q6H PRN 04/09/22 aerosol inhaler (Ventolin HFA) shortness of breath or wheezing 30 days #6.7 grams ferrous sulfate 325 mg (65 mg 325 mg PO DAILY 90 days #90 tabs 04/09/22 iron) tablet pen needle, diabetic 31 gauge x #100 ea 04/10/22 3/16 (BD Ultra-Fine Mini Pen Needle) insulin syringe-needle U-100 0.5 #100 ea 04/13/22 mL 31 gauge x 5/16 (BD Insulin Syringe Ultra-Fine) pyridoxine (vitamin B6) 100 mg 100 mg PO DAILY 90 days #90 tabs 04/20/22 tablet diabetic shoes and inserts #1 ea 05/06/22 Shower Chair #1 ea 05/11/22 fqbtwz-zqyrupul-gaxdsum 1 cap PO QID 30 days #120 caps 05/12/22 24,000-76,000-120,000 unit capsule,delayed rel (Creon) metoclopramide HCl 5 mg tablet 5 mg PO TIDAC #90 tabs 05/12/22 (Reglan) meclizine 25 mg tablet 25 mg PO TID PRN dizziness 30 days 05/27/22 #90 tabs fluticasone propionate 230 2 puff inhalation Q12H 30 days #1 05/29/22 mcg-salmeterol 21 mcg/actuation ea HFA inhaler (Advair HFA) blood sugar diagnostic (FreeStyle #100 ea 06/01/22 Lite Strips) clotrimazole 1 % topical cream 1 appl topical BID 4 weeks #30 06/04/22 grams metoprolol tartrate 50 mg tablet 50 mg PO BID 3 months #180 tabs 06/07/22 lidocaine 4 % topical cream 1 appl topical BID PRN pain #30 06/10/22 grams levothyroxine 112 mcg tablet 112 mcg PO DAILY 90 days #90 tabs 06/21/22 duloxetine 60 mg capsule,delayed 60 mg PO DAILY 90 days #90 caps 06/29/22 release gabapentin 800 mg tablet 800 mg PO TID 30 days #90 tabs 06/29/22 dulaglutide 0.75 mg/0.5 mL 0.75 mg (0.5 mL) subcut QWEEK 90 07/12/22 subcutaneous pen injector days #6.5 mL (Trulicity) lorazepam 1 mg tablet (Ativan) 1 mg PO TID PRN anxiety #10 tabs 07/13/22 ondansetron 4 mg disintegrating 4 mg PO Q6-8H PRN nausea and 07/13/22 tablet vomiting #14 tabs Allergies Allergy/AdvReac Type Severity Reaction Status Date / Time Penicillins Allergy Severe swelling Verified 06/29/22 09:43 adhesive tape [ADHESIVE TAPE] Allergy Intermediate RASH Verified 06/29/22 09:43 amoxicillin [AMOXICILLIN] Allergy Intermediate RASH,SWELLING, Verified 06/29/22 09:43 RASH/SWELLING latex Allergy Intermediate Rash Verified 06/29/22 09:43 Motrin Allergy Intermediate hypertensio Verified 06/29/22 09:43 n Review of Systems Review of Systems: Yes all other systems are reviewed and are negative PMFSH Past Medical History Medical History Arthropathy of facet joint Asthma Bilateral shoulder pain Chronic idiopathic constipation Chronic pain (Unknown) Chronic pain syndrome Degeneration, intervertebral disc, cervical Diabetes mellitus Disc degeneration, lumbar Fibromyalgia LUDY (generalized anxiety disorder) Gastroparesis Goiter Hyperlipidemia LDL goal <70 Hypothyroidism Incontinence Insomnia Left knee pain Lumbar pain Moderately severe recurrent major depression Morbid (severe) obesity due to excess calories Multiple air fluid levels of small intestine determined by X-ray Renal calculi Sleep apnea Small bowel motility disorder Spondylosis of cervical spine at multiple levels without myelopathy Spondylosis of cervical spine at multiple levels without myelopathy Spondylosis of lumbar region without myelopathy or radiculopathy Surgical History Delivery by section History of cholecystectomy History of esophagogastroduodenoscopy (EGD) History of hernia surgery History of hysterectomy History of knee replacement procedure of right knee Hx of colonoscopy Family History Family History Father Past heart attack Anxiety Mother MOF (multiple organ failure) Brother HIV (human immunodeficiency virus infection) Sister Ovarian cancer Lupus Bone cancer Uterine cancer Tumor Daughter Guillain-[place] Sister Lupus History of open heart surgery Family/Other Depression FH: mental illness Maternal Aunt Breast cancer Maternal Aunt Tumor Social History Social History Household Members: None Household Members Other:: Housing: Apartment Are you a primary customer care agent to a significant other at home: No Do you presently have visiting nurse or other home services: Yes (RETAIL CONSULTANT) Alcohol intake: former Patient Tobacco Use Status: Never used Tobacco e-Cigarette/Vaping Use: Never Used Second Hand Smoke Exposure: Yes Advance Directives: Yes Advance Directives on File: Yes Advance Directives Date on File: 12/08/21 service: No Current occupational status: unemployed and disabled Cognitive needs: No Hearing needs: No Vision needs: No Physical Exam Vital Signs: Vital Signs: Last Vital Signs Temp 98.1 F 07/12/22 23:44 Pulse 93 07/12/22 23:44 Resp 16 07/13/22 01:42 BP 181/79 H 07/12/22 23:44 Pulse Ox 96 07/12/22 23:44 O2 Del Method 07/12/22 23:44 BMI result Body Mass Index 42.0 Const: Other: Awake, alert, female patient, she appears be anxious, she does not appear to be in distress. HEENT: Head: Yes normal to inspection, Yes normocephalic and Yes atraumatic Ears: external ears normal General nose exam: Normal external nose present Face and sinus: Yes normal facial exam Mouth: Normal oral and palatal mucosa present Throat: Yes posterior oropharynx normal Eyes: General: appearance normal, both eyes and all related structures Pupils: Equal, round and reactive pupils present Neck: Neck: Yes normal visual inspection, Yes no lymphadenopathy, Yes trachea midline and Yes supple Chest: Chest palpation & inspection: normal inspection of the chest and normal palpation of entire chest wall Resp: Effort & Inspection: normal respiratory effort and able to speak in complete sentences Auscultation: clear to auscultation bilaterally Cardio: Rate: regular rate Rhythm: regular rhythm Heart sounds: S1 normal heart sound present, S2 normal heart sound present and no murmurs GI: Inspection: Yes normal to inspection Palpation (GI): Soft to palpation, Tenderness to palpation present (GI) in the epigastrum ( moderate) and in the RUQ ( moderate) and no guarding Auscultation: normal bowel sounds : General: Yes no CVA tenderness Back/Spine/Pelvis: Back: no CVA tenderness Skin: General skin exam: no rashes or lesions noted Neuro: Cranial nerves: Yes CN's II-XII intact bilaterally and Yes Equal, round and reactive pupils present Cognition (Neuro): normal cognition Motor exam (neuro): 5/5 motor strength present throughout Extrem: General: Yes normal to inspection Psych: Appearance: grossly normal Speech and movement: Normal speech and mo vement present Affect: Anxious affect present Attitude: cooperative Course Course Course Narrative: 57-year-old female who presents emergency department for evaluation nausea, vomiting, and abdominal pain which began yesterday at 16:00 hours. The patient states she has had too numerous to count episodes of vomiting. She has also had constant, 10/10 abdominal pain located in the right upper quadrant epigastric area of her abdomen . The patient's vital signs did reveal an elevated blood pressure of 210/107 otherwise were unremarkable. Abdominal exam did reveal moderate right upper quadrant and midepigastric tenderness. 2229: Laboratory evaluation was ordered at triage. WBC elevated 16,500. glucose elevated 235 with an anion gap of 22. AST and ALT are elevated 42 and 142. I did add a lipase. I did order normal saline IV x1 L, Zofran 4 mg IV and morphine 4 mg IV. 0037 : Patient states she did get some improvement with the above treatment however she still has nausea and pain. She has not had any vomiting since being in the emergency department. Patient was ordered to get regular and 10 mg IV, Benadryl 50 mg IV and morphine 4 mg IV. The patient's lipase was normal at 68. 0156: The patient did get some improvement with the above treatment. The patient was complaining anxiety and she was given Ativan 1 mg orally. The patient was able to drink some fluid here in the emergency department while she has been in the emergency department she only had 1 episode of vomiting, and only very small amount. The patient's presentation is consistent with a flare- up of her gastroparesis which is chronic for this patient. The patient will be discharged home with a prescription for Ativan 1 mg 3 times a day as needed for anxiety. She is also given prescription for Zofran be ODT 4 mg every 6 hours as needed for nausea and vomiting. MDM - Chest Pain Lab Data Result diagrams: 07/12/22 21:02 07/12/22 21:02 Labs: Lab Results 07/12/22 07/12/22 07/12/22 Range/Units 21:02 21:02 21:02 WBC 16.5 H (4.8-10.8) X10*3/uL RBC 6.24 H D (4.20-5.50) X10*6/uL Hgb 14.2 D (12.0-16.0) g/dl Hct 46.3 (37.0-47.0) % MCV 74.2 L (80.0-98.0) fL MCH 22.8 L (27.0-33.0) pg MCHC 30.7 L (31.0-35.0) g/dl RDW 18.8 H (11.0-16.0) % Plt Count 315 (160-400) X10*3/uL MPV 10.7 (9.4-12.3) fL Immature Gran % (Auto) 0.9 H (0.0-0.4) % Neut % (Auto) 86.5 H (45-73) % Lymph % (Auto) 9.3 L (20-40) % Whitman % (Auto) 2.5 (2-11) % Eos % (Auto) 0.4 (0-4) % Baso % (Auto) 0.4 (0-2) % Lymph # (Auto) 1.5 (1.2-4.9) X10*3/uL Whitman # (Auto) 0.4 (0.1-1.2) X10*3/uL Eos # (Auto) 0.1 (0.0-0.4) X10*3/uL Baso # (Auto) 0.1 (0.0-0.2) X10*3/uL Abs Immat Gran (auto) 0.15 H (0.00-0.03) X10*3/uL Absolute Neuts (auto) 14.3 H (2.0-8.3) x10*3/uL Absolute Nucleated RBC 0.000 (0.0-0.012) X10*3/uL Nucleated RBC % (auto) 0.0 (0.0-0.2) /100WBC Smear Tech's Comments VERIFIED Sodium 140 (135-145) mmol/L Potassium 4.7 D (3.3-5.1) mmol/L Chloride 101 (96-108) mmol/L Carbon Dioxide 22 (22-29) mmol/L Anion Gap 22 H (12-20) BUN 13 (9-16) mg/dL Creatinine 0.80 (0.5-1.4) mg/dL Estim Creat Clear Calc 106.1 Estimated GFR > 60 Random Glucose 235 H (60-115) mg/dL Calcium 10.0 D (8.4-10.2) mg/dL Total Bilirubin 0.6 (0.0-1.0) mg/dL AST 30 (5-31) U/L ALT 42 H (0-31) U/L Alkaline Phosphatase 142 H (39-117) U/L Troponin I High Sens < 3.5 (<3.5-17.0) ng/L Total Protein 8.5 H (6.5-8.0) g/dL Albumin 4.7 (3.5-5.0) g/dL Lipase 68 (8-78) U/L Urine Color Urine Appearance Urine pH (5.0-9.0) Ur Specific [place] (1.005-1.025) Urine Protein (Neg-Trace) mg/dL Urine Glucose (UA) (Negative) mg/dL Urine Ketones (Negative) mg/dL Urine Blood (Negative) Urine Nitrite (Negative) Ur Leukocyte Esterase (Negative) Urine RBC (0-2) /HPF Urine WBC (0-5) /HPF Ur Squamous Epith Cells (0-2) /HPF Urine Bacteria (None Seen) Hyaline Casts (0-2) /LPF COVID-19 ([facility]) (Negative) COVID-19 Clin Com 07/12/22 07/13/22 Range/Units 22:29 00:28 WBC (4.8-10.8) X10*3/uL RBC (4.20-5.50) X10*6/uL Hgb (12.0-16.0) g/dl Hct (37.0-47.0) % MCV (80.0-98.0) fL MCH (27.0-33.0) pg MCHC (31.0-35.0) g/dl RDW (11.0-16.0) % Plt Count (160-400) X10*3/uL MPV (9.4-12.3) fL Immature Gran % (Auto) (0.0-0.4) % Neut % (Auto) (45-73) % Lymph % (Auto) (20-40) % Whitman % (Auto) (2-11) % Eos % (Auto) (0-4) % Baso % (Auto) (0-2) % Lymph # (Auto) (1.2-4.9) X10*3/uL Whitman # (Auto) (0.1-1.2) X10*3/uL Eos # (Auto) (0.0-0.4) X10*3/uL Baso # (Auto) (0.0-0.2) X10*3/uL Abs Immat Gran (auto) (0.00-0.03) X10*3/uL Absolute Neuts (auto) (2.0-8.3) x10*3/uL Absolute Nucleated RBC (0.0-0.012) X10*3/uL Nucleated RBC % (auto) (0.0-0.2) /100WBC Smear Tech's Comments Sodium (135-145) mmol/L Potassium (3.3-5.1) mmol/L Chloride (96-108) mmol/L Carbon Dioxide (22-29) mmol/L Anion Gap (12-20) BUN (9-16) mg/dL Creatinine (0.5-1.4) mg/dL Estim Creat Clear Calc Estimated GFR Random Glucose (60-115) mg/dL Calcium (8.4-10.2) mg/dL Total Bilirubin (0.0-1.0) mg/dL AST (5-31) U/L ALT (0-31) U/L Alkaline Phosphatase (39-117) U/L Troponin I High Sens (<3.5-17.0) ng/L Total Protein (6.5-8.0) g/dL Albumin (3.5-5.0) g/dL Lipase (8-78) U/L Urine Color Yellow Urine Appearance Clear Urine pH 8.0 (5.0-9.0) Ur Specific [place] 1.015 (1.005-1.025) Urine Protein 30 (1+) H (Neg-Trace) mg/dL Urine Glucose (UA) 100 H (Negative) mg/dL Urine Ketones 15 (Negative) mg/dL Urine Blood Trace H (Negative) Urine Nitrite Negative (Negative) Ur Leukocyte Esterase Trace H (Negative) Urine RBC 11-20 H (0-2) /HPF Urine WBC 0-5 (0-5) /HPF Ur Squamous Epith Cells 0-2 (0-2) /HPF Urine Bacteria None Seen (None Seen) Hyaline Casts 0-2 (0-2) /LPF COVID-19 ([facility]) Negative (Negative) COVID-19 Clin Com See Note Discharge Plan Discharge Clinical Impression: Diabetes mellitus with gastroparesis, Anxiety Vomiting Qualifiers: Migraine intractability: nonintractable Patient Disposition: Home, Self-Care Instructions: Diabetic Gastroparesis (DC), Anxiety (ED) Additional Instructions: Your nausea, vomiting and abdominal pain is caused by gastroparesis (slow emptying of your stomach) which is caused by your diabetes mellitus. I also believe that your symptoms may be caused by anxiety is well. Take Ativan 1 mg pills, 1 pill every 6 hours as needed for anxiety and nausea. Take Zofran ODT 4 mg pills, 1 pill dissolved in your mouth every 8 hours as needed for nausea and vomiting. Follow-up with your doctor in 2 days. Please return to the emergency department if your symptoms get worse or if you develop any symptoms that are concerning to you. Prescriptions: New lorazepam [Ativan] 1 mg tablet 1 mg PO TID PRN (Reason: anxiety) Qty: 10 0RF Rx Instructions: Patient may request partial fill ondansetron 4 mg tablet,disintegrating 4 mg PO Q6-8H PRN (Reason: nausea and vomiting) Qty: 14 0RF No Action (DME) lancets [FreeStyle Lancets] 28 gauge misc See Rx Instructions .Route Qty: 100 6RF Rx Instructions: BID (DME) lancets [FreeStyle Lancets] 28 gauge misc See Rx Instructions .Route Qty: 100 3RF Rx Instructions: Use 1 lancet once a day metformin 500 mg tablet 500 mg PO BID Qty: 180 2RF (DME) FreeStyle Julianne 2 Sensor Kit See Rx Instructions .Route Qty: 1 2RF Rx Instructions: As directed (DME) diabetic supplies, miscellan. Misc See Rx Instructions .Route Qty: 1 0RF Rx Instructions: As directed (DME) heating pads Pad See Rx Instructions .Route Qty: 1 0RF Rx Instructions: As directed sennosides [senna] 8.6 mg tablet 17.2 mg PO BEDTIME Qty: 60 3RF Hold Instructions: Doctor's Order (DME) Gel mattress overlay Misc See Rx Instructions .Route Qty: 1 0RF Rx Instructions: As directed (DME) Toilet seat riser See Rx Instructions .Route .MEDSUPPLY Qty: 1 0RF Rx Instructions: As directed (DME) walker Misc See Rx Instructions .Route Qty: 1 0RF Rx Instructions: As directed (DME) miscellaneous medical supply Misc See Rx Instructions .ROUTE .MEDSUPPLY Qty: 1 0RF Rx Instructions: toilet seat elevator (DME) blood pressure monitor Kit See Rx Instructions .Route Qty: 1 0RF Rx Instructions: Use as needed amlodipine 10 mg tablet 10 mg PO DAILY Qty: 90 1RF (DME) pen needle, diabetic [BD Ultra-Fine Mini Pen Needle] 31 gauge x 3/16 needle See Rx Instructions .Route Qty: 100 0RF Rx Instructions: As directed (DME) insulin syringe-needle U-100 [BD Insulin Syringe Ultra-Fine] 0.5 mL 31 gauge x 5/16 syringe See Rx Instructions .Route Qty: 100 3RF Rx Instructions: Use 1 three times a day pyridoxine (vitamin B6) 100 mg tablet 100 mg PO DAILY 90 Days Qty: 90 1RF (DME) diabetic shoes and inserts See Rx Instructions .Route .MEDSUPPLY Qty: 1 1RF Rx Instructions: As directed meclizine 25 mg tablet 25 mg PO TID PRN (Reason: dizziness) 30 Days Qty: 90 1RF (DME) FreeStyle Lite Strips Strip See Rx Instructions .Route Qty: 100 3RF Rx Instructions: use 1 test strip once a day clotrimazole 1 % cream 1 appl topical BID 28 Days Qty: 30 1RF metoprolol tartrate 50 mg tablet 50 mg PO BID 90 Days Qty: 180 1RF levothyroxine 112 mcg tablet 112 mcg PO DAILY 90 Days Qty: 90 1RF gabapentin 800 mg tablet 800 mg PO TID 30 Days Qty: 90 0RF duloxetine 60 mg capsule,delayed release(DR/EC) 60 mg PO DAILY 90 Days Qty: 90 1RF Trulicity 0.75 mg/0.5 mL pen injector 0.75 mg subcut QWEEK 90 Days Qty: 6.5 1RF (DME) Shower Chair Misc See Rx Instructions .Route Qty: 1 0RF Rx Instructions: As directed furosemide 40 mg tablet 80 mg PO DAILY acetaminophen [Tylenol Arthritis Pain] 650 mg Tablet Extended Release 650 mg PO Q8H PRN (Reason: arthritis pain) ergocalciferol (vitamin D2) 1,250 mcg (50,000 unit) capsule 1,250 mcg PO Q2W insulin lispro [Humalog U-100 Insulin] 100 unit/mL solution See Rx Instructions .ROUTE .COMPLEX Rx Instructions: Patient takes per sliding scale (DME) blood pressure test kit-wrist [Blood Pressure Unit-Wrist] Kit See Rx Instructions .ROUTE .MEDSUPPLY Qty: 1 0RF Rx Instructions: to check blood pressure (DME) [place] [facility] [place] Instructions .ROUTE .MEDSUPPLY Qty: 1 Rx Instructions: As directed (DME) blood-glucose meter [FreeStyle Lite Meter] Kit See Rx Instructions .Route Qty: 1 0RF Rx Instructions: As directed lorazepam 0.5 mg tablet 0.5 mg PO DAILY PRN (Reason: Severe Anxiety and Panic Disorder) prochlorperazine maleate 10 mg tablet 10 mg PO Q8H PRN (Reason: Nausea) ferrous sulfate 325 mg (65 mg iron) tablet 325 mg PO DAILY 90 Days Qty: 90 1RF albuterol sulfate [Ventolin HFA] 90 mcg/actuation HFA aerosol inhaler 2 puff inhalation Q6H PRN (Reason: shortness of breath or wheezing) 30 Days Qty: 6.7 1RF lidocaine 4 % cream 1 appl topical BID PRN (Reason: pain) Qty: 30 1RF atorvastatin 10 mg tablet 10 mg PO BEDTIME 90 Days Qty: 90 1RF clonidine HCl 0.1 mg tablet 0.1 mg PO TID PRN (Reason: Agitation or Anxiety) mirtazapine 30 mg tablet 30 mg PO BEDTIME metoclopramide HCl [Reglan] 5 mg tablet 5 mg PO TIDAC Qty: 90 6RF Creon 24,000-76,000 -120,000 unit capsule,delayed release(DR/EC) 1 cap PO QID 30 Days Qty: 120 6RF Rx Instructions: administer with meals and/or snacks Advair HFA 230-21 mcg/actuation HFA aerosol inhaler 2 puff inhalation Q12H 30 Days Qty: 1 6RF
[2022-07-12 21:14] LABS: Basophils Absolute Auto 0.1 X10*3/uL (0.0-0.2); Basophils Percent Auto 0.4 % (0-2); Eosinophils Absolute Auto 0.1 X10*3/uL (0.0-0.4); Eosinophils Percent Auto 0.4 % (0-4); Hematocrit 46.3 % (37.0-47.0); Hemoglobin 14.2 g/dl (12.0-16.0); Imm Gran Abs Auto 0.15 X10*3/uL (0.00-0.03); Imm Gran Pct Auto 0.9 % (0.0-0.4); Lymphocytes Absolute Auto 1.5 X10*3/uL (1.2-4.9); Lymphocytes Percent Auto 9.3 % (20-40); MANUAL DIFF FLAG SCAN; Mean Corpuscular HGB Conc 30.7 g/dl (31.0-35.0); Mean Corpuscular Hemoglobin 22.8 pg (27.0-33.0); Mean Corpuscular Volume 74.2 fL (80.0-98.0); Mean Platelet Volume 10.7 fL (9.4-12.3); Monocytes Absolute Auto 0.4 X10*3/uL (0.1-1.2); Monocytes Percent Auto 2.5 % (2-11); Neutrophils Absolute Auto 14.3 x10*3/uL (2.0-8.3); Neutrophils Percent Auto 86.5 % (45-73); PLT CLUMP 1; Red Blood Count 6.24 X10*6/uL (4.20-5.50); Red Cell Distribution Width 18.8 % (11.0-16.0); SCAN SMEAR FLAG 1
[2022-07-12 21:15] LABS: White Blood Count 16.5 X10*3/uL (4.8-10.8)
[2022-07-12 21:36] LABS: Troponin-I High Sensitivity < 3.5 ng/L (<3.5-17.0)
[2022-07-12 21:45] LABS: Alanine Aminotransferase 42 U/L (0-31); Albumin Level 4.7 g/dL (3.5-5.0); Alkaline Phosphatase 142 U/L (39-117); Anion Gap 22 (12-20); Aspartate Amino Transferase 30 U/L (5-31); Bilirubin Total 0.6 mg/dL (0.0-1.0); Blood Urea Nitrogen 13 mg/dL (9-16); Carbon Dioxide 22 mmol/L (22-29); Chloride 101 mmol/L (96-108); Creatinine Clr Calc Pharmacy 106.1; Estimated Glomerular Filt Rate > 60; Glucose Random 235 mg/dL (60-115); Potassium 4.7 mmol/L (3.3-5.1); Sodium 140 mmol/L (135-145); Total Protein 8.5 g/dL (6.5-8.0)
[2022-07-12 21:47] LABS: Platelet Count 315 X10*3/uL (160-400); SLIDE REVIEW VERIFIED
[2022-07-12 22:14] VITALS: BP 181/80; PULSE 95; RESP 22; TEMP 36.9; O2SAT 95
[2022-07-12 22:39] LABS: Lipase 68 U/L (8-78)
[2022-07-12 22:52] LABS: COVID-19 Test Negative (Negative); IDNOW Serial# 55D5AD1C
[2022-07-12 23:25] VITALS: RESP 16
[2022-07-12] MEDS: Morphine Sulfate 4 MG/ML CARTRIDGE IVPUSH (23:25)
[2022-07-12] MEDS: ondansetron HCL 4 MG/2 ML VIAL IVPUSH (23:26)
[2022-07-12] MEDS: 0.9 % Sodium Chloride 1,000 ML 999 ML IV (23:26)
[2022-07-12 23:44] VITALS: BP 181/79; PULSE 93; RESP 11; TEMP 36.7; O2SAT 96
[2022-07-13 00:37] LABS: Appearance Urine Clear; Color Urine Yellow; Glucose Urine UA 100 mg/dL (Negative); Leukocyte Esterase Urine Trace (Negative); Nitrite Urine Negative (Negative); Specific Gravity - Urine 1.015 (1.005-1.025); UMIC TRIGGER UACC YES; Urine Blood Trace (Negative); Urine Ketones 15 mg/dL (Negative); Urine Protein 30 (1+) mg/dL (Neg-Trace)
[2022-07-13 00:42] LABS: Bacteria Urine None Seen (None Seen); Hyaline Casts Urine 0-2 /LPF (0-2); Squamous Epithelial Cell Urine 0-2 /HPF (0-2); WBC Urine 0-5 /HPF (0-5)
[2022-07-13 01:42] VITALS: RESP 16
[2022-07-13] MEDS: diphenhydrAMINE HCL 50 MG/ML VIAL IVPUSH (01:42)
[2022-07-13] MEDS: Morphine Sulfate 4 MG/ML CARTRIDGE IVPUSH (01:42)
[2022-07-13] MEDS: Metoclopramide HCl 10 MG/2 ML VIAL IVPUSH (01:59)
[2022-07-13] MEDS: LORazepam 1 MG TABLET PO (02:36)
== END 2022-07-13 03:22 | disposition home or self-care (01) ==
PROVIDERS: Emergency Provider Emergency Medicine Emergency Medical Services; PCP Internal Medicine
DX: E11.43 Type 2 diabetes mellitus with diabetic autonomic (poly)neuropathy (principal); G43.909 Migraine, unspecified, not intractable, without status migrainosus; K31.84 Gastroparesis; F41.1 Generalized anxiety disorder; F43.0 Acute stress reaction; R10.13 Epigastric pain; R07.89 Other chest pain; R10.11 Right upper quadrant pain; R11.10 Vomiting, unspecified; Z20.822 Contact with and (suspected) exposure to COVID-19; Z79.899 Other long term (current) drug therapy
CPT/HCPCS: 36415; 80053; 81001; 83690; 84484; 85025; 87635; 93005; 96374; 96375; 99284; J1200; J2270; J2405; J2765

== ENCOUNTER 2022-08-02 22:47 | Emergency (ER) | payer OTHER, SELFPAY ==
--- NOTE | 2022-08-02 | ECG_ITS ---
Test Reason : CHEST PAIN Blood Pressure : / mmHG Vent. Rate : 106 BPM Atrial Rate : 106 BPM P-R Int : 120 ms QRS Dur : 076 ms QT Int : 352 ms P-R-T Axes : -13 032 003 degrees QTc Int : 467 ms Sinus tachycardia Nonspecific T wave abnormality Inferior leads Abnormal ECG When compared with ECG of 12-JUL-2022 20:52, T wave inversion more evident in Inferior leads Referred By: Generic ED Physician Electronically Signed By:VINNIE MCKINLEY MD
[2022-08-02 22:50] VITALS: BP 159/80; PULSE 118; RESP 24; TEMP 37.3; O2SAT 99; BMI 42.0
[2022-08-02] MEDS: Ondansetron ODT 4 MG TAB.RAPDIS TRANSLINGU (23:01)
[2022-08-02 23:31] LABS: MANUAL DIFF FLAG NO
[2022-08-02 23:49] LABS: Basophils Percent Auto 0.2 % (0-2); Eosinophils Absolute Auto 0.1 X10*3/uL (0.0-0.4); Eosinophils Percent Auto 0.6 % (0-4); Hematocrit 44.3 % (37.0-47.0); Hemoglobin 13.3 g/dl (12.0-16.0); Imm Gran Abs Auto 0.06 X10*3/uL (0.00-0.03); Imm Gran Pct Auto 0.4 % (0.0-0.4); Lymphocytes Absolute Auto 1.5 X10*3/uL (1.2-4.9); Mean Corpuscular Hemoglobin 22.9 pg (27.0-33.0); Mean Corpuscular Volume 76.2 fL (80.0-98.0); Mean Platelet Volume 10.4 fL (9.4-12.3); Monocytes Absolute Auto 0.5 X10*3/uL (0.1-1.2); Monocytes Percent Auto 2.7 % (2-11); Neutrophils Absolute Auto 14.9 x10*3/uL (2.0-8.3); Neutrophils Percent Auto 87.1 % (45-73); Platelet Count 411 X10*3/uL (160-400); Red Blood Count 5.81 X10*6/uL (4.20-5.50); Red Cell Distribution Width 18.6 % (11.0-16.0); White Blood Count 17.1 X10*3/uL (4.8-10.8)
[2022-08-02 23:57] LABS: Alanine Aminotransferase 44 U/L (0-31); Albumin Level 4.6 g/dL (3.5-5.0); Alkaline Phosphatase 133 U/L (39-117); Anion Gap 21 (12-20); Aspartate Amino Transferase 31 U/L (5-31); Bilirubin Total 0.6 mg/dL (0.0-1.0); Blood Urea Nitrogen 15 mg/dL (9-16); Calcium 10.5 mg/dL (8.4-10.2); Carbon Dioxide 24 mmol/L (22-29); Chloride 103 mmol/L (96-108); Creatinine Clr Calc Pharmacy 96.4; Estimated Glomerular Filt Rate > 60; Glucose Random 215 mg/dL (60-115); Potassium 4.1 mmol/L (3.3-5.1); Sodium 144 mmol/L (135-145); Total Protein 8.2 g/dL (6.5-8.0); Troponin-I High Sensitivity < 3.5 ng/L (<3.5-17.0)
[2022-08-03 00:35] LABS: COVID-19 Test Negative (Negative)
[2022-08-03 02:10] VITALS: BP 153/84; PULSE 115; RESP 20; TEMP 36.7; O2SAT 96
[2022-08-03] MEDS: Metoclopramide HCl 10 MG/2 ML VIAL IVPUSH (03:08)
[2022-08-03] MEDS: Ketorolac Tromethamine 15 MG/ML VIAL IVPUSH (03:08)
[2022-08-03] MEDS: diphenhydrAMINE HCL 50 MG/ML VIAL IVPUSH (03:08)
[2022-08-03 04:00] VITALS: BP 165/75; PULSE 115; RESP 25; TEMP 37.4; O2SAT 95
--- NOTE | 2022-08-03 04:05 | PC.NURSE ---
Pt. upset, requesting to see and stating that she has been here all day. notified
--- NOTE | 2022-08-03 06:18 | PC.NURSE ---
Pt. upset, stating that she wants to leave because she has not been evaluated by MD yet. Roge Smyth MD notified and is aware- states will evaluate this pt. next.
--- NOTE | 2022-08-03 06:56 | ED.NAVMDI ---
HPI - Nausea/Vomiting/Diarrhea General Chief complaint: Nausea/Vomiting/Diarrhea Stated complaint: Vomiting x 3 days Time Seen by Provider: 08/03/22 06:46 Source: patient Mode of arrival: ambulatory History of Present Illness HPI Narrative: Patient 57 years old with history of hypothyroidism HLD obesity anxiety disorder, diabetes, chronic pain, asthma, depression, gastroparesis me to ER multiple times was seen here on 07/12 had so her for CT scan which were negative seen milker machine on 07/05 comes here for 4 days of nausea vomiting and diffuse abdominal discomfort for last 4 days Related Data Home Medications Medication Instructions Recorded Confirmed vaporizers #1 ea 10/10/20 04/09/22 clonidine HCl 0.1 mg tablet 0.1 mg PO TID PRN Agitation or 09/19/21 07/04/22 Anxiety lorazepam 0.5 mg tablet 0.5 mg PO DAILY PRN Severe Anxiety 04/09/22 07/04/22 and Panic Disorder prochlorperazine maleate 10 mg 10 mg PO Q8H PRN Nausea 04/09/22 07/04/22 tablet mirtazapine 30 mg tablet 30 mg PO BEDTIME 06/23/22 07/04/22 acetaminophen 650 mg 650 mg PO Q8H PRN arthritis pain 07/04/22 07/04/22 tablet,extended release (Tylenol Arthritis Pain) ergocalciferol (vitamin D2) 1,250 1,250 mcg PO Q2W 07/04/22 07/04/22 mcg (50,000 unit) capsule furosemide 40 mg tablet 80 mg PO DAILY 07/04/22 07/04/22 insulin lispro 100 unit/mL See Rx Instructions .Route .COMPLEX 07/04/22 07/04/22 subcutaneous solution (Humalog U-100 Insulin) Previous Rx's Medication Instructions Recorded blood pressure test kit-wrist #1 ea 09/13/20 (Blood Pressure Unit-Wrist kit) lancets 28 gauge (FreeStyle #100 ea 05/23/21 Lancets) blood-glucose meter (FreeStyle #1 ea 09/16/21 Lite Meter kit) lancets 28 gauge (FreeStyle #100 ea 11/12/21 Lancets) metformin 500 mg tablet 500 mg PO BID #180 tabs 11/15/21 diabetic supplies, miscellan. #1 ea 12/03/21 flash glucose sensor (FreeStyle #1 ea 12/03/21 Julianne 2 Sensor kit) heating pads #1 ea 01/21/22 sennosides 8.6 mg tablet (senna) 17.2 mg PO BEDTIME #60 tabs 01/26/22 Gel mattress overlay #1 ea 01/28/22 Toilet seat riser #1 ea 03/05/22 walker #1 ea 03/05/22 blood pressure monitor #1 ea 03/10/22 miscellaneous medical supply #1 ea 03/10/22 amlodipine 10 mg tablet 10 mg PO DAILY #90 tabs 03/12/22 atorvastatin 10 mg tablet 10 mg PO BEDTIME 90 days #90 tabs 03/16/22 albuterol sulfate 90 mcg/actuation 2 puff inhalation Q6H PRN 04/09/22 aerosol inhaler (Ventolin HFA) shortness of breath or wheezing 30 days #6.7 grams ferrous sulfate 325 mg (65 mg 325 mg PO DAILY 90 days #90 tabs 04/09/22 iron) tablet pen needle, diabetic 31 gauge x #100 ea 04/10/22 3/16 (BD Ultra-Fine Mini Pen Needle) insulin syringe-needle U-100 0.5 #100 ea 04/13/22 mL 31 gauge x 5/16 (BD Insulin Syringe Ultra-Fine) pyridoxine (vitamin B6) 100 mg 100 mg PO DAILY 90 days #90 tabs 04/20/22 tablet diabetic shoes and inserts #1 ea 05/06/22 Shower Chair #1 ea 05/11/22 [id number] 1 cap PO QID 30 days #120 caps 05/12/22 24,000-76,000-120,000 unit capsule,delayed rel (Creon) metoclopramide HCl 5 mg tablet 5 mg PO TIDAC #90 tabs 05/12/22 (Reglan) meclizine 25 mg tablet 25 mg PO TID PRN dizziness 30 days 05/27/22 #90 tabs fluticasone propionate 230 2 puff inhalation Q12H 30 days #1 05/29/22 mcg-salmeterol 21 mcg/actuation ea HFA inhaler (Advair HFA) blood sugar diagnostic (FreeStyle #100 ea 06/01/22 Lite Strips) clotrimazole 1 % topical cream 1 appl topical BID 4 weeks #30 06/04/22 grams metoprolol tartrate 50 mg tablet 50 mg PO BID 3 months #180 tabs 06/07/22 lidocaine 4 % topical cream 1 appl topical BID PRN pain #30 06/10/22 grams levothyroxine 112 mcg tablet 112 mcg PO DAILY 90 days #90 tabs 06/21/22 duloxetine 60 mg capsule,delayed 60 mg PO DAILY 90 days #90 caps 06/29/22 release gabapentin 800 mg tablet 800 mg PO TID 30 days #90 tabs 06/29/22 lorazepam 1 mg tablet (Ativan) 1 mg PO TID PRN anxiety #10 tabs 07/13/22 insulin glargine 100 unit/mL 10 unit (0.1 mL) subcut QPM 90 07/16/22 subcutaneous solution (Lant days #9 mL U-100 Insulin) insulin syr/ndl U100 half desean 0.3 #100 ea 07/16/22 mL 31 gauge x 5/16 (BD Insulin Syringe Ultra-Fine (half unit)) ondansetron 4 mg disintegrating 4 mg PO Q8H #60 tabs 07/16/22 tablet alcohol swabs (Alcohol Prep Pads) 1 pad topical .once a day 90 days 07/21/22 #100 ea omeprazole 20 mg capsule,delayed 20 mg PO DAILY 7 days #7 caps 07/21/22 release hydrocortisone 1 % topical cream 1 appl topical TID PRN skin 07/22/22 (Anti-Itch (hydrocortisone)) irritation 30 days #28.4 grams lorazepam 1 mg tablet (Ativan) 1 mg PO BID PRN anxiety #14 tabs 08/03/22 Allergies Allergy/AdvReac Type Severity Reaction Status Date / Time Penicillins Allergy Severe swelling Verified 08/02/22 22:57 adhesive tape [ADHESIVE TAPE] Allergy Intermediate RASH Verified 08/02/22 22:57 amoxicillin [AMOXICILLIN] Allergy Intermediate RASH,SWELLING, Verified 08/02/22 22:57 RASH/SWELLING latex Allergy Intermediate Rash Verified 08/02/22 22:57 Motrin Allergy Intermediate hypertensio Verified 08/02/22 22:57 n Review of Systems Review of Systems: Yes all other systems are reviewed and are negative PMFSH Past Medical History Medical History Arthropathy of facet joint Asthma Bilateral shoulder pain Chronic idiopathic constipation Chronic pain (Unknown) Chronic pain syndrome Degeneration, intervertebral disc, cervical Diabetes mellitus Disc degeneration, lumbar Fibromyalgia LUDY (generalized anxiety disorder) Gastroparesis Goiter Hyperlipidemia LDL goal <70 Hypothyroidism Incontinence Insomnia Left knee pain Lumbar pain Moderately severe recurrent major depression Morbid (severe) obesity due to excess calories Multiple air fluid levels of small intestine determined by X-ray Renal calculi Sleep apnea Small bowel motility disorder Spondylosis of cervical spine at multiple levels without myelopathy Spondylosis of cervical spine at multiple levels without myelopathy Spondylosis of lumbar region without myelopathy or radiculopathy Surgical History Delivery by section History of cholecystectomy History of esophagogastroduodenoscopy (EGD) History of hernia surgery History of hysterectomy History of knee replacement procedure of right knee Hx of colonoscopy Family History Family History Father Past heart attack Anxiety Mother MOF (multiple organ failure) Brother HIV (human immunodeficiency virus infection) Sister Ovarian cancer Lupus Bone cancer Uterine cancer Tumor Daughter Guillain-[place] Sister Lupus History of open heart surgery Family/Other Depression FH: mental illness Maternal Aunt Breast cancer Maternal Aunt Tumor Social History Social History Household Members: None Household Members Other:: Housing: Apartment Are you a primary career developer to a significant other at home: No Do you presently have visiting nurse or other home services: Yes ([employer]) Alcohol intake: never Patient Tobacco Use Status: Never used Tobacco e-Cigarette/Vaping Use: Never Used Second Hand Smoke Exposure: Yes Use of substances other than those prescribed or required for medical reasons: No Advance Directives: Yes Advance Directives on File: Yes Advance Directives Date on File: 12/08/21 Patient : No service: No Current occupational status: unemployed and disabled Cognitive needs: No Hearing needs: No Vision needs: No Physical Exam Vital Signs: Vital Signs: Last Vital Signs Temp 98.6 F 08/03/22 07:06 Pulse 119 H 08/03/22 07:06 Resp 12 08/03/22 07:06 BP 160/84 H 08/03/22 07:06 Pulse Ox 96 08/03/22 07:06 O2 Del Method 08/03/22 07:06 BMI result Body Mass Index 42.0 Appearance: Alert. Oriented X3. No acute distress. Anxious Eyes: No pallor or icterus ENT: Pharynx normal. Oral Mucosa moist Neck: Normal inspection. Neck supple. CVS: Normal heart rate and rhythm. Pulses normal. Respiratory: No respiratory distress. Equal air entry bilateral, no wheezing/rales/rhonchi Abdomen: Soft and diffuse tenderness no rebound tenderness or guarding Bowel sounds are present, no mass palpable, no CVA tenderness Skin: Skin warm and dry. Normal skin color. Normal skin turgor. Extremities: No lower extremity edema. No calf tenderness Neuro: Oriented X 3. MDM - Nausea/Vomiting/Diarrhea Lab Data Result diagrams: 08/02/22 23:25 08/02/22 23:25 Labs: Lab Results 08/02/22 08/02/22 08/02/22 Range/Units 23:25 23:25 23:25 WBC 17.1 H (4.8-10.8) X10*3/uL RBC 5.81 H (4.20-5.50) X10*6/uL Hgb 13.3 (12.0-16.0) g/dl Hct 44.3 (37.0-47.0) % MCV 76.2 L (80.0-98.0) fL MCH 22.9 L (27.0-33.0) pg MCHC 30.0 L (31.0-35.0) g/dl RDW 18.6 H (11.0-16.0) % Plt Count 411 H D (160-400) X10*3/uL MPV 10.4 (9.4-12.3) fL Immature Gran % (Auto) 0.4 (0.0-0.4) % Neut % (Auto) 87.1 H (45-73) % Lymph % (Auto) 9.0 L (20-40) % Lake % (Auto) 2.7 (2-11) % Eos % (Auto) 0.6 (0-4) % Baso % (Auto) 0.2 (0-2) % Lymph # (Auto) 1.5 (1.2-4.9) X10*3/uL Lake # (Auto) 0.5 (0.1-1.2) X10*3/uL Eos # (Auto) 0.1 (0.0-0.4) X10*3/uL Baso # (Auto) 0.0 (0.0-0.2) X10*3/uL Abs Immat Gran (auto) 0.06 H (0.00-0.03) X10*3/uL Absolute Neuts (auto) 14.9 H (2.0-8.3) x10*3/uL Absolute Nucleated RBC 0.000 (0.0-0.012) X10*3/uL Nucleated RBC % (auto) 0.0 (0.0-0.2) /100WBC Sodium 144 (135-145) mmol/L Potassium 4.1 (3.3-5.1) mmol/L Chloride 103 (96-108) mmol/L Carbon Dioxide 24 (22-29) mmol/L Anion Gap 21 H (12-20) BUN 15 (9-16) mg/dL Creatinine 0.88 (0.5-1.4) mg/dL Estim Creat Clear Calc 96.4 Estimated GFR > 60 Random Glucose 215 H (60-115) mg/dL Calcium 10.5 H (8.4-10.2) mg/dL Total Bilirubin 0.6 (0.0-1.0) mg/dL AST 31 (5-31) U/L ALT 44 H (0-31) U/L Alkaline Phosphatase 133 H (39-117) U/L Troponin I High Sens < 3.5 (<3.5-17.0) ng/L Total Protein 8.2 H (6.5-8.0) g/dL Albumin 4.6 (3.5-5.0) g/dL COVID-19 ([facility]) (Negative) COVID-19 Clin Com 08/02/22 Range/Units 23:25 WBC (4.8-10.8) X10*3/uL RBC (4.20-5.50) X10*6/uL Hgb (12.0-16.0) g/dl Hct (37.0-47.0) % MCV (80.0-98.0) fL MCH (27.0-33.0) pg MCHC (31.0-35.0) g/dl RDW (11.0-16.0) % Plt Count (160-400) X10*3/uL MPV (9.4-12.3) fL Immature Gran % (Auto) (0.0-0.4) % Neut % (Auto) (45-73) % Lymph % (Auto) (20-40) % Lake % (Auto) (2-11) % Eos % (Auto) (0-4) % Baso % (Auto) (0-2) % Lymph # (Auto) (1.2-4.9) X10*3/uL Lake # (Auto) (0.1-1.2) X10*3/uL Eos # (Auto) (0.0-0.4) X10*3/uL Baso # (Auto) (0.0-0.2) X10*3/uL Abs Immat Gran (auto) (0.00-0.03) X10*3/uL Absolute Neuts (auto) (2.0-8.3) x10*3/uL Absolute Nucleated RBC (0.0-0.012) X10*3/uL Nucleated RBC % (auto) (0.0-0.2) /100WBC Sodium (135-145) mmol/L Potassium (3.3-5.1) mmol/L Chloride (96-108) mmol/L Carbon Dioxide (22-29) mmol/L Anion Gap (12-20) BUN (9-16) mg/dL Creatinine (0.5-1.4) mg/dL Estim Creat Clear Calc Estimated GFR Random Glucose (60-115) mg/dL Calcium (8.4-10.2) mg/dL Total Bilirubin (0.0-1.0) mg/dL AST (5-31) U/L ALT (0-31) U/L Alkaline Phosphatase (39-117) U/L Troponin I High Sens (<3.5-17.0) ng/L Total Protein (6.5-8.0) g/dL Albumin (3.5-5.0) g/dL COVID-19 ([facility]) Negative (Negative) COVID-19 Clin Com See Note Discharge Plan Discharge Clinical Impression: Diabetic gastroparesis Patient Disposition: Home, Self-Care Instructions: Diabetic Gastroparesis (DC) Additional Instructions: Current taking medication follow-up with your milker machine Ativan for anxiety Prescriptions: New lorazepam [Ativan] 1 mg tablet 1 mg PO BID PRN (Reason: anxiety) Qty: 14 0RF No Action (DME) lancets [FreeStyle Lancets] 28 gauge misc See Rx Instructions .Route Qty: 100 6RF Rx Instructions: BID (DME) lancets [FreeStyle Lancets] 28 gauge misc See Rx Instructions .Route Qty: 100 3RF Rx Instructions: Use 1 lancet once a day metformin 500 mg tablet 500 mg PO BID Qty: 180 2RF (DME) FreeStyle Julianne 2 Sensor Kit See Rx Instructions .Route Qty: 1 2RF Rx Instructions: As directed (DME) diabetic supplies, miscellan. Misc See Rx Instructions .Route Qty: 1 0RF Rx Instructions: As directed (DME) heating pads Pad See Rx Instructions .Route Qty: 1 0RF Rx Instructions: As directed sennosides [senna] 8.6 mg tablet 17.2 mg PO BEDTIME Qty: 60 3RF Hold Instructions: Doctor's Order (DME) Gel mattress overlay Misc See Rx Instructions .Route Qty: 1 0RF Rx Instructions: As directed (DME) Toilet seat riser See Rx Instructions .Route .MEDSUPPLY Qty: 1 0RF Rx Instructions: As directed (DME) walker Misc See Rx Instructions .Route Qty: 1 0RF Rx Instructions: As directed (DME) miscellaneous medical supply Misc See Rx Instructions .ROUTE .MEDSUPPLY Qty: 1 0RF Rx Instructions: toilet seat elevator (DME) blood pressure monitor Kit See Rx Instructions .Route Qty: 1 0RF Rx Instructions: Use as needed amlodipine 10 mg tablet 10 mg PO DAILY Qty: 90 1RF (DME) pen needle, diabetic [BD Ultra-Fine Mini Pen Needle] 31 gauge x 3/16 needle See Rx Instructions .Route Qty: 100 0RF Rx Instructions: As directed (DME) insulin syringe-needle U-100 [BD Insulin Syringe Ultra-Fine] 0.5 mL 31 gauge x 5/16 syringe See Rx Instructions .Route Qty: 100 3RF Rx Instructions: Use 1 three times a day pyridoxine (vitamin B6) 100 mg tablet 100 mg PO DAILY 90 Days Qty: 90 1RF (DME) diabetic shoes and inserts See Rx Instructions .Route .MEDSUPPLY Qty: 1 1RF Rx Instructions: As directed meclizine 25 mg tablet 25 mg PO TID PRN (Reason: dizziness) 30 Days Qty: 90 1RF (DME) FreeStyle Lite Strips Strip See Rx Instructions .Route Qty: 100 3RF Rx Instructions: use 1 test strip once a day clotrimazole 1 % cream 1 appl topical BID 28 Days Qty: 30 1RF metoprolol tartrate 50 mg tablet 50 mg PO BID 90 Days Qty: 180 1RF levothyroxine 112 mcg tablet 112 mcg PO DAILY 90 Days Qty: 90 1RF gabapentin 800 mg tablet 800 mg PO TID 30 Days Qty: 90 0RF duloxetine 60 mg capsule,delayed release(DR/EC) 60 mg PO DAILY 90 Days Qty: 90 1RF ondansetron 4 mg tablet,disintegrating 4 mg PO Q8H Qty: 60 2RF insulin glargine [Lantus U-100 Insulin] 100 unit/mL solution 10 unit subcut QPM 90 Days Qty: 9 1RF (DME) BD Insulin Syringe (half unit) 0.3 mL 31 gauge x 5/16 syringe See Rx Instructions .Route Qty: 100 3RF Rx Instructions: Use 1 needle once a day omeprazole 20 mg capsule,delayed release(DR/EC) 20 mg PO DAILY 7 Days Qty: 7 0RF alcohol swabs [Alcohol Prep Pads] Pads, Medicated 1 pad topical .once a day 90 Days Qty: 100 0RF hydrocortisone [Anti-Itch (HC)] 1 % cream 1 appl topical TID PRN (Reason: skin irritation) 30 Days Qty: 28.4 0RF (DME) Shower Chair Misc See Rx Instructions .Route Qty: 1 0RF Rx Instructions: As directed furosemide 40 mg tablet 80 mg PO DAILY acetaminophen [Tylenol Arthritis Pain] 650 mg Tablet Extended Release 650 mg PO Q8H PRN (Reason: arthritis pain) ergocalciferol (vitamin D2) 1,250 mcg (50,000 unit) capsule 1,250 mcg PO Q2W insulin lispro [Humalog U-100 Insulin] 100 unit/mL solution See Rx Instructions .ROUTE .COMPLEX Rx Instructions: Patient takes per sliding scale lorazepam [Ativan] 1 mg tablet 1 mg PO TID PRN (Reason: anxiety) Qty: 10 0RF Rx Instructions: Patient may request partial fill (DME) blood pressure test kit-wrist [Blood Pressure Unit-Wrist] Kit See Rx Instructions .ROUTE .MEDSUPPLY Qty: 1 0RF Rx Instructions: to check blood pressure (DME) vaporizers Misc See Rx Instructions .ROUTE .MEDSUPPLY Qty: 1 Rx Instructions: As directed (DME) blood-glucose meter [FreeStyle Lite Meter] Kit See Rx Instructions .Route Qty: 1 0RF Rx Instructions: As directed lorazepam 0.5 mg tablet 0.5 mg PO DAILY PRN (Reason: Severe Anxiety and Panic Disorder) prochlorperazine maleate 10 mg tablet 10 mg PO Q8H PRN (Reason: Nausea) ferrous sulfate 325 mg (65 mg iron) tablet 325 mg PO DAILY 90 Days Qty: 90 1RF albuterol sulfate [Ventolin HFA] 90 mcg/actuation HFA aerosol inhaler 2 puff inhalation Q6H PRN (Reason: shortness of breath or wheezing) 30 Days Qty: 6.7 1RF lidocaine 4 % cream 1 appl topical BID PRN (Reason: pain) Qty: 30 1RF atorvastatin 10 mg tablet 10 mg PO BEDTIME 90 Days Qty: 90 1RF clonidine HCl 0.1 mg tablet 0.1 mg PO TID PRN (Reason: Agitation or Anxiety) mirtazapine 30 mg tablet 30 mg PO BEDTIME metoclopramide HCl [Reglan] 5 mg tablet 5 mg PO TIDAC Qty: 90 6RF Creon 24,000-76,000 -120,000 unit capsule,delayed release(DR/EC) 1 cap PO QID 30 Days Qty: 120 6RF Rx Instructions: administer with meals and/or snacks Advair HFA 230-21 mcg/actuation HFA aerosol inhaler 2 puff inhalation Q12H 30 Days Qty: 1 6RF
[2022-08-03 07:06] VITALS: BP 160/84; PULSE 119; RESP 12; TEMP 37; O2SAT 96
[2022-08-03] MEDS: Midazolam HCl/PF 2 MG/2 ML VIAL IVPUSH (07:13)
[2022-08-03] MEDS: Famotidine/PF 20 MG/2 ML VIAL IVPUSH (07:13)
[2022-08-03] MEDS: Prochlorperazine Edisylate 10 MG/2 ML VIAL IVPUSH (07:14)
[2022-08-03] MEDS: 0.9 % Sodium Chloride 1,000 ML 999 ML IV (07:26)
--- NOTE | 2022-08-03 07:29 | PC.NURSE ---
pt complains of abd pain 10/. N/V and a headache. Gave her GI meds and 1000mls NS. Patient fell asleep and now resting comfortably. HM tachy 117. BP 154/74 o2sat 88.
== END 2022-08-03 09:20 | disposition home or self-care (01) ==
PROVIDERS: Emergency Provider Internal Medicine; PCP Internal Medicine
DX: R11.2 Nausea with vomiting, unspecified (principal); E11.43 Type 2 diabetes mellitus with diabetic autonomic (poly)neuropathy; K31.84 Gastroparesis; R07.89 Other chest pain; Z79.4 Long term (current) use of insulin; Z20.822 Contact with and (suspected) exposure to COVID-19; Z79.899 Other long term (current) drug therapy
CPT/HCPCS: 36415; 80053; 84484; 85025; 87635; 93005; 96374; 96375; 99284; 99285; J1200; J1885; J2250; J2765

== ENCOUNTER 2022-08-07 07:57 | Outpatient (REF) | payer OTHER, SELFPAY | END 2022-08-07 07:58 | disposition home or self-care (01) | LOC: HO.HOSX 07:57 | PROVIDERS: Visit Provider Physician Assistant | DX: Z13.89 Encounter for screening for other disorder (principal) ==

== ENCOUNTER 2022-08-07 14:11 | Emergency (ER) | payer OTHER, SELFPAY ==
[2022-08-07 14:14] VITALS: BP 154/80; PULSE 124; RESP 20; TEMP 36.8; O2SAT 95; BMI 42.0
[2022-08-07 14:26] LABS: MANUAL DIFF FLAG NO
[2022-08-07 14:27] LABS: Basophils Absolute Auto 0.1 X10*3/uL (0.0-0.2); Basophils Percent Auto 0.4 % (0-2); Eosinophils Absolute Auto 0.3 X10*3/uL (0.0-0.4); Eosinophils Percent Auto 1.8 % (0-4); Hematocrit 40.7 % (37.0-47.0); Hemoglobin 12.3 g/dl (12.0-16.0); Imm Gran Abs Auto 0.08 X10*3/uL (0.00-0.03); Imm Gran Pct Auto 0.5 % (0.0-0.4); Lymphocytes Absolute Auto 1.8 X10*3/uL (1.2-4.9); Mean Corpuscular HGB Conc 30.2 g/dl (31.0-35.0); Mean Corpuscular Hemoglobin 23.1 pg (27.0-33.0); Mean Corpuscular Volume 76.4 fL (80.0-98.0); Mean Platelet Volume 10.6 fL (9.4-12.3); Monocytes Absolute Auto 0.5 X10*3/uL (0.1-1.2); Monocytes Percent Auto 3.7 % (2-11); Neutrophils Percent Auto 81.6 % (45-73); Platelet Count 359 X10*3/uL (160-400); Red Blood Count 5.33 X10*6/uL (4.20-5.50); Red Cell Distribution Width 17.7 % (11.0-16.0); White Blood Count 14.8 X10*3/uL (4.8-10.8)
[2022-08-07 14:41] LABS: COVID-19 Test Negative (Negative); IDNOW Serial# 16C4AD1C
[2022-08-07 14:56] LABS: Anion Gap 22 (12-20); Blood Urea Nitrogen 14 mg/dL (9-16); Calcium 9.3 mg/dL (8.4-10.2); Carbon Dioxide 21 mmol/L (22-29); Chloride 101 mmol/L (96-108); Creatinine Clr Calc Pharmacy 98.7; Estimated Glomerular Filt Rate > 60; Glucose Random 200 mg/dL (60-115); Potassium 3.8 mmol/L (3.3-5.1); Sodium 140 mmol/L (135-145)
[2022-08-07] MEDS: Ondansetron ODT 4 MG TAB.RAPDIS TRANSLINGU (17:16)
--- NOTE | 2022-08-07 18:18 | ED.NAVMDI ---
HPI - Nausea/Vomiting/Diarrhea General Chief complaint: Nausea/Vomiting/Diarrhea Stated complaint: vomiting Time Seen by Provider: 08/07/22 18:04 Source: patient Mode of arrival: ambulatory Limitations: no limitations History of Present Illness HPI Narrative: 57-year-old female presents for 2 days of nausea, vomiting, and right-sided abdominal pain. Patient presents to the emergency department on a weekly basis for similar circumstances secondary to gastroparesis. Patient has an established relationship Gastroenterology, she was at a gastroenterology appointment when they referred her to the emergency department for uncontrollable nausea and vomiting. MD elicited complaint: nausea, vomiting and abdominal pain Onset (ago): year(s) Description of vomiting: watery Associated nausea: Yes Associated abdominal pain: Yes Location of pain: diffuse Pain consistency: constant Severity: moderate Quality: cramping and aching Exacerbating factors: eating and vomiting Relieving factors: none Associated symptoms: nausea/vomiting Treatment prior to arrival: other (Antiemetic) Related Data Home Medications Medication Instructions Recorded Confirmed vaporizers #1 ea 10/10/20 04/09/22 clonidine HCl 0.1 mg tablet 0.1 mg PO TID PRN Agitation or 09/19/21 07/04/22 Anxiety lorazepam 0.5 mg tablet 0.5 mg PO DAILY PRN Severe Anxiety 04/09/22 07/04/22 and Panic Disorder prochlorperazine maleate 10 mg 10 mg PO Q8H PRN Nausea 04/09/22 07/04/22 tablet mirtazapine 30 mg tablet 30 mg PO BEDTIME 06/23/22 07/04/22 acetaminophen 650 mg 650 mg PO Q8H PRN arthritis pain 07/04/22 07/04/22 tablet,extended release (Tylenol Arthritis Pain) ergocalciferol (vitamin D2) 1,250 1,250 mcg PO Q2W 07/04/22 07/04/22 mcg (50,000 unit) capsule furosemide 40 mg tablet 80 mg PO DAILY 07/04/22 07/04/22 insulin lispro 100 unit/mL See Rx Instructions .Route .COMPLEX 07/04/22 07/04/22 subcutaneous solution (Humalog U-100 Insulin) Previous Rx's Medication Instructions Recorded blood pressure test kit-wrist #1 ea 09/13/20 (Blood Pressure Unit-Wrist kit) lancets 28 gauge (FreeStyle #100 ea 05/23/21 Lancets) blood-glucose meter (FreeStyle #1 ea 09/16/21 Lite Meter kit) lancets 28 gauge (FreeStyle #100 ea 11/12/21 Lancets) metformin 500 mg tablet 500 mg PO BID #180 tabs 11/15/21 diabetic supplies, miscellan. #1 ea 12/03/21 flash glucose sensor (FreeStyle #1 ea 12/03/21 Julianne 2 Sensor kit) heating pads #1 ea 01/21/22 sennosides 8.6 mg tablet (senna) 17.2 mg PO BEDTIME #60 tabs 01/26/22 Gel mattress overlay #1 ea 01/28/22 Toilet seat riser #1 ea 03/05/22 walker #1 ea 03/05/22 blood pressure monitor #1 ea 03/10/22 miscellaneous medical supply #1 ea 03/10/22 amlodipine 10 mg tablet 10 mg PO DAILY #90 tabs 03/12/22 atorvastatin 10 mg tablet 10 mg PO BEDTIME 90 days #90 tabs 03/16/22 albuterol sulfate 90 mcg/actuation 2 puff inhalation Q6H PRN 04/09/22 aerosol inhaler (Ventolin HFA) shortness of breath or wheezing 30 days #6.7 grams ferrous sulfate 325 mg (65 mg 325 mg PO DAILY 90 days #90 tabs 04/09/22 iron) tablet pen needle, diabetic 31 gauge x #100 ea 04/10/22 3/16 (BD Ultra-Fine Mini Pen Needle) insulin syringe-needle U-100 0.5 #100 ea 04/13/22 mL 31 gauge x 5/16 (BD Insulin Syringe Ultra-Fine) pyridoxine (vitamin B6) 100 mg 100 mg PO DAILY 90 days #90 tabs 04/20/22 tablet diabetic shoes and inserts #1 ea 05/06/22 Shower Chair #1 ea 05/11/22 diobdv-[id number] 1 cap PO QID 30 days #120 caps 05/12/22 24,000-76,000-120,000 unit capsule,delayed rel (Creon) metoclopramide HCl 5 mg tablet 5 mg PO TIDAC #90 tabs 05/12/22 (Reglan) meclizine 25 mg tablet 25 mg PO TID PRN dizziness 30 days 05/27/22 #90 tabs fluticasone propionate 230 2 puff inhalation Q12H 30 days #1 05/29/22 mcg-salmeterol 21 mcg/actuation ea HFA inhaler (Advair HFA) blood sugar diagnostic (FreeStyle #100 ea 06/01/22 Lite Strips) clotrimazole 1 % topical cream 1 appl topical BID 4 weeks #30 06/04/22 grams lidocaine 4 % topical cream 1 appl topical BID PRN pain #30 06/10/22 grams levothyroxine 112 mcg tablet 112 mcg PO DAILY 90 days #90 tabs 06/21/22 duloxetine 60 mg capsule,delayed 60 mg PO DAILY 90 days #90 caps 06/29/22 release gabapentin 800 mg tablet 800 mg PO TID 30 days #90 tabs 06/29/22 lorazepam 1 mg tablet (Ativan) 1 mg PO TID PRN anxiety #10 tabs 07/13/22 insulin glargine 100 unit/mL 10 unit (0.1 mL) subcut QPM 90 07/16/22 subcutaneous solution ( days #9 mL U-100 Insulin) insulin syr/ndl U100 half desean 0.3 #100 ea 07/16/22 mL 31 gauge x 5/16 (BD Insulin Syringe Ultra-Fine (half unit)) ondansetron 4 mg disintegrating 4 mg PO Q8H #60 tabs 07/16/22 tablet alcohol swabs (Alcohol Prep Pads) 1 pad topical .once a day 90 days 07/21/22 #100 ea omeprazole 20 mg capsule,delayed 20 mg PO DAILY 7 days #7 caps 07/21/22 release hydrocortisone 1 % topical cream 1 appl topical TID PRN skin 07/22/22 (Anti-Itch (hydrocortisone)) irritation 30 days #28.4 grams lorazepam 1 mg tablet (Ativan) 1 mg PO BID PRN anxiety #14 tabs 08/03/22 metoclopramide HCl 10 mg tablet 10 mg PO QIDACHS #120 tabs 08/05/22 (Reglan) ondansetron 4 mg disintegrating 4 mg PO Q8H PRN nausea and 08/07/22 tablet vomiting #30 tabs Allergies Allergy/AdvReac Type Severity Reaction Status Date / Time Penicillins Allergy Severe swelling Verified 08/02/22 22:57 adhesive tape [ADHESIVE TAPE] Allergy Intermediate RASH Verified 08/02/22 22:57 amoxicillin [AMOXICILLIN] Allergy Intermediate RASH,SWELLING, Verified 08/02/22 22:57 RASH/SWELLING latex Allergy Intermediate Rash Verified 08/02/22 22:57 Motrin Allergy Intermediate hypertensio Verified 08/02/22 22:57 n Review of Systems Review of Systems: Constitutional: No Fever, No Chills ENT/Mouth: No Ear Pain, No Hoarseness, No sore throat Eyes: No Eye Pain, No Swelling, No Redness, No Foreign Body Cardiovascular: No Chest Pain, No SOB Respiratory: No Cough, No Dyspnea Gastrointestinal: Positive Nausea, positive Vomiting, No Diarrhea, positive abdominal Pain Genitourinary: No Dysuria, No Hematuria Musculoskeletal: No joint pain, No Myalgias, No Joint Swelling Skin: No Skin lacerations, No rash Neuro: No Weakness, No Numbness, No Paresthesias, No Loss of Consciousness, No Dizziness, No Headache Psych: No Anxiety/Panic, No Depression Heme/Lymph: no easy bruising, no Lymphadenopathy Endocrine: No Polyuria, No Polydipsia Yes all other systems are reviewed and are negative Gastrointestinal: Gastrointestinal: Reports nausea PMFSH Past Medical History Attestation statement: The following information was validated with the patient. Source: old records reviewed Medical History Arthropathy of facet joint Asthma Bilateral shoulder pain Chronic idiopathic constipation Chronic pain (Unknown) Chronic pain syndrome Degeneration, intervertebral disc, cervical Diabetes mellitus Disc degeneration, lumbar Fibromyalgia LUDY (generalized anxiety disorder) Gastroparesis Goiter Hyperlipidemia LDL goal <70 Hypothyroidism Incontinence Insomnia Left knee pain Lumbar pain Moderately severe recurrent major depression Morbid (severe) obesity due to excess calories Multiple air fluid levels of small intestine determined by X-ray Renal calculi Sleep apnea Small bowel motility disorder Spondylosis of cervical spine at multiple levels without myelopathy Spondylosis of cervical spine at multiple levels without myelopathy Spondylosis of lumbar region without myelopathy or radiculopathy Surgical History Delivery by section History of cholecystectomy History of esophagogastroduodenoscopy (EGD) History of hernia surgery History of hysterectomy History of knee replacement procedure of right knee Hx of colonoscopy Family History Family History Father Past heart attack Anxiety Mother MOF (multiple organ failure) Brother HIV (human immunodeficiency virus infection) Sister Ovarian cancer Lupus Bone cancer Uterine cancer Tumor Daughter Guillain-[place] Sister Lupus History of open heart surgery Family/Other Depression FH: mental illness Maternal Aunt Breast cancer Maternal Aunt Tumor Social History Social History Household Members: None Household Members Other:: Housing: Apartment Are you a primary home care assistant to a significant other at home: No Do you presently have visiting nurse or other home services: Yes ([facility]) Alcohol intake: never Patient Tobacco Use Status: Never used Tobacco Smoked in Last 30 Days: No e-Cigarette/Vaping Use: Never Used Second Hand Smoke Exposure: Yes Advance Directives: Yes Advance Directives on File: Yes Advance Directives Date on File: 12/08/21 Patient : No service: No Current occupational status: unemployed and disabled Cognitive needs: No Hearing needs: No Vision needs: No Physical Exam Vital Signs: Vital Signs: Last Vital Signs Temp 98.0 F 08/07/22 18:40 Pulse 88 08/07/22 18:40 Resp 18 08/07/22 18:40 BP 146/79 H 08/07/22 18:40 Pulse Ox 98 08/07/22 18:40 O2 Del Method 08/07/22 18:40 BMI result Body Mass Index 42.0 Appearance: Alert. Oriented X3. No acute distress. Eyes: Pupils equal, round and reactive to light. Sclera nonicteric. ENT: Pharynx normal. Neck: Normal inspection. Neck supple. CVS: Normal heart rate and rhythm. Pulses normal. Respiratory: No respiratory distress. Breath sounds normal. Abdomen: Soft and right upper quadrant tenderness to palpation. No rigidity or rebound. Skin: Skin warm and dry. Normal skin color. Normal skin turgor. Extremities: No lower extremity edema. Moves all extremities against resistance. Neuro: No motor deficit. No sensory deficit. Cranial nerves 2-12 intact Course Course Course Narrative: 57-year-old female presents for chronic abdominal pain, nausea and vomiting from Gastroenterology appointment. Patient has been seen on a weekly basis for abdominal pain, nausea and vomiting, last seen on 08/03/2022 with similar presentation. Patient has had 10 CT scans since January this year. I did discuss in detail the risks of extensive radiation exposure with CT scans. She has also had abdominal ultrasounds, last being on 07/04/2022 with negative findings. At this time I will treat for intractable nausea and vomiting. Patient's lab values are consistent with her prior values. At this time I do not feel imaging would be beneficial. Patient will follow-up with Gastroenterology. I will prescribe a prescription for Zofran for home usage. Patient is able to tolerate p.o. fluids. Patient verbalized understanding of and agrees plan of care discharge home. Verbalized understanding of signs and symptoms indicating need for emergent intervention. MDM - Nausea/Vomiting/Diarrhea MDM Narrative Medical decision making narrative: Gastroparesis Differential Diagnosis Differential diagnosis: Likely gastroenteritis Medical Records Attestation: I reviewed the patient's medical records. Lab Data Attestation: I reviewed the patient's lab results. Result diagrams: 08/07/22 14:22 08/07/22 14:22 Labs: Lab Results 08/07/22 08/07/22 08/07/22 Range/Units 14:22 14:22 14:22 WBC 14.8 H (4.8-10.8) X10*3/uL RBC 5.33 (4.20-5.50) X10*6/uL Hgb 12.3 (12.0-16.0) g/dl Hct 40.7 (37.0-47.0) % MCV 76.4 L (80.0-98.0) fL MCH 23.1 L (27.0-33.0) pg MCHC 30.2 L (31.0-35.0) g/dl RDW 17.7 H (11.0-16.0) % Plt Count 359 (160-400) X10*3/uL MPV 10.6 (9.4-12.3) fL Immature Gran % (Auto) 0.5 H (0.0-0.4) % Neut % (Auto) 81.6 H (45-73) % Lymph % (Auto) 12.0 L (20-40) % Hale % (Auto) 3.7 (2-11) % Eos % (Auto) 1.8 (0-4) % Baso % (Auto) 0.4 (0-2) % Lymph # (Auto) 1.8 (1.2-4.9) X10*3/uL Hale # (Auto) 0.5 (0.1-1.2) X10*3/uL Eos # (Auto) 0.3 (0.0-0.4) X10*3/uL Baso # (Auto) 0.1 (0.0-0.2) X10*3/uL Abs Immat Gran (auto) 0.08 H (0.00-0.03) X10*3/uL Absolute Neuts (auto) 12.0 H (2.0-8.3) x10*3/uL Absolute Nucleated RBC 0.000 (0.0-0.012) X10*3/uL Nucleated RBC % (auto) 0.0 (0.0-0.2) /100WBC Sodium 140 (135-145) mmol/L Potassium 3.8 (3.3-5.1) mmol/L Chloride 101 (96-108) mmol/L Carbon Dioxide 21 L (22-29) mmol/L Anion Gap 22 H (12-20) BUN 14 (9-16) mg/dL Creatinine 0.86 (0.5-1.4) mg/dL Estim Creat Clear Calc 98.7 Estimated GFR > 60 Random Glucose 200 H (60-115) mg/dL Calcium 9.3 D (8.4-10.2) mg/dL Total Bilirubin (0.0-1.0) mg/dL Direct Bilirubin (0.0-0.5) mg/dL AST (5-31) U/L ALT (0-31) U/L Alkaline Phosphatase (39-117) U/L Total Protein (6.5-8.0) g/dL Albumin (3.5-5.0) g/dL Lipase (8-78) U/L COVID-19 ([facility]) Negative (Negative) COVID-19 Clin Com See Note 08/07/22 Range/Units 18:36 WBC (4.8-10.8) X10*3/uL RBC (4.20-5.50) X10*6/uL Hgb (12.0-16.0) g/dl Hct (37.0-47.0) % MCV (80.0-98.0) fL MCH (27.0-33.0) pg MCHC (31.0-35.0) g/dl RDW (11.0-16.0) % Plt Count (160-400) X10*3/uL MPV (9.4-12.3) fL Immature Gran % (Auto) (0.0-0.4) % Neut % (Auto) (45-73) % Lymph % (Auto) (20-40) % Hale % (Auto) (2-11) % Eos % (Auto) (0-4) % Baso % (Auto) (0-2) % Lymph # (Auto) (1.2-4.9) X10*3/uL Hale # (Auto) (0.1-1.2) X10*3/uL Eos # (Auto) (0.0-0.4) X10*3/uL Baso # (Auto) (0.0-0.2) X10*3/uL Abs Immat Gran (auto) (0.00-0.03) X10*3/uL Absolute Neuts (auto) (2.0-8.3) x10*3/uL Absolute Nucleated RBC (0.0-0.012) X10*3/uL Nucleated RBC % (auto) (0.0-0.2) /100WBC Sodium (135-145) mmol/L Potassium (3.3-5.1) mmol/L Chloride (96-108) mmol/L Carbon Dioxide (22-29) mmol/L Anion Gap (12-20) BUN (9-16) mg/dL Creatinine (0.5-1.4) mg/dL Estim Creat Clear Calc Estimated GFR Random Glucose (60-115) mg/dL Calcium (8.4-10.2) mg/dL Total Bilirubin 0.7 (0.0-1.0) mg/dL Direct Bilirubin 0.2 (0.0-0.5) mg/dL AST 43 H (5-31) U/L ALT 57 H (0-31) U/L Alkaline Phosphatase 137 H (39-117) U/L Total Protein 8.5 H (6.5-8.0) g/dL Albumin 4.5 (3.5-5.0) g/dL Lipase 53 (8-78) U/L COVID-19 ([facility]) (Negative) COVID-19 Clin Com Discharge Plan Discharge Clinical Impression: Diabetic gastroparesis, Right sided abdominal pain, Nausea & vomiting Patient Disposition: Home, Self-Care Instructions: Diabetic Gastroparesis (DC), Acute Nausea and Vomiting (ED), Abdominal Pain (ED) Additional Instructions: You were evaluated for chronic abdominal pain, nausea and vomiting. Please continue to take medications that were prescribed to you for nausea and vomiting. Follow-up with Gastroenterology as directed. Your lab values are within your normal limits. Thank you for choosing this emergency department for evaluation. Please follow-up with primary care physician as needed. Return to the emergency department for any new, concerning, or worsening symptoms. Prescriptions: New ondansetron 4 mg tablet,disintegrating 4 mg PO Q8H PRN (Reason: nausea and vomiting) Qty: 30 0RF No Action (DME) lancets [FreeStyle Lancets] 28 gauge misc See Rx Instructions .Route Qty: 100 6RF Rx Instructions: BID (DME) lancets [FreeStyle Lancets] 28 gauge misc See Rx Instructions .Route Qty: 100 3RF Rx Instructions: Use 1 lancet once a day metformin 500 mg tablet 500 mg PO BID Qty: 180 2RF (DME) FreeStyle Julianne 2 Sensor Kit See Rx Instructions .Route Qty: 1 2RF Rx Instructions: As directed (DME) diabetic supplies, miscellan. Misc See Rx Instructions .Route Qty: 1 0RF Rx Instructions: As directed (DME) heating pads Pad See Rx Instructions .Route Qty: 1 0RF Rx Instructions: As directed sennosides [senna] 8.6 mg tablet 17.2 mg PO BEDTIME Qty: 60 3RF Hold Instructions: Doctor's Order (DME) Gel mattress overlay Misc See Rx Instructions .Route Qty: 1 0RF Rx Instructions: As directed (DME) Toilet seat riser See Rx Instructions .Route .MEDSUPPLY Qty: 1 0RF Rx Instructions: As directed (DME) walker Misc See Rx Instructions .Route Qty: 1 0RF Rx Instructions: As directed (DME) miscellaneous medical supply Misc See Rx Instructions .ROUTE .MEDSUPPLY Qty: 1 0RF Rx Instructions: toilet seat elevator (DME) blood pressure monitor Kit See Rx Instructions .Route Qty: 1 0RF Rx Instructions: Use as needed amlodipine 10 mg tablet 10 mg PO DAILY Qty: 90 1RF (DME) pen needle, diabetic [BD Ultra-Fine Mini Pen Needle] 31 gauge x 3/16 needle See Rx Instructions .Route Qty: 100 0RF Rx Instructions: As directed (DME) insulin syringe-needle U-100 [BD Insulin Syringe Ultra-Fine] 0.5 mL 31 gauge x 5/16 syringe See Rx Instructions .Route Qty: 100 3RF Rx Instructions: Use 1 three times a day pyridoxine (vitamin B6) 100 mg tablet 100 mg PO DAILY 90 Days Qty: 90 1RF (DME) diabetic shoes and inserts See Rx Instructions .Route .MEDSUPPLY Qty: 1 1RF Rx Instructions: As directed meclizine 25 mg tablet 25 mg PO TID PRN (Reason: dizziness) 30 Days Qty: 90 1RF (DME) FreeStyle Lite Strips Strip See Rx Instructions .Route Qty: 100 3RF Rx Instructions: use 1 test strip once a day clotrimazole 1 % cream 1 appl topical BID 28 Days Qty: 30 1RF levothyroxine 112 mcg tablet 112 mcg PO DAILY 90 Days Qty: 90 1RF gabapentin 800 mg tablet 800 mg PO TID 30 Days Qty: 90 0RF duloxetine 60 mg capsule,delayed release(DR/EC) 60 mg PO DAILY 90 Days Qty: 90 1RF ondansetron 4 mg tablet,disintegrating 4 mg PO Q8H Qty: 60 2RF insulin glargine [Lantus U-100 Insulin] 100 unit/mL solution 10 unit subcut QPM 90 Days Qty: 9 1RF (DME) BD Insulin Syringe (half unit) 0.3 mL 31 gauge x 5/16 syringe See Rx Instructions .Route Qty: 100 3RF Rx Instructions: Use 1 needle once a day omeprazole 20 mg capsule,delayed release(DR/EC) 20 mg PO DAILY 7 Days Qty: 7 0RF alcohol swabs [Alcohol Prep Pads] Pads, Medicated 1 pad topical .once a day 90 Days Qty: 100 0RF hydrocortisone [Anti-Itch (HC)] 1 % cream 1 appl topical TID PRN (Reason: skin irritation) 30 Days Qty: 28.4 0RF metoclopramide HCl [Reglan] 10 mg tablet 10 mg PO QIDACHS Qty: 120 3RF Rx Instructions: Provider aware possible interactions and is monitoring patient lorazepam [Ativan] 1 mg tablet 1 mg PO BID PRN (Reason: anxiety) Qty: 14 0RF (DME) [facility] See Rx Instructions .Route Qty: 1 0RF Rx Instructions: As directed furosemide 40 mg tablet 80 mg PO DAILY acetaminophen [Tylenol Arthritis Pain] 650 mg Tablet Extended Release 650 mg PO Q8H PRN (Reason: arthritis pain) ergocalciferol (vitamin D2) 1,250 mcg (50,000 unit) capsule 1,250 mcg PO Q2W insulin lispro [Humalog U-100 Insulin] 100 unit/mL solution See Rx Instructions .ROUTE .COMPLEX Rx Instructions: Patient takes per sliding scale lorazepam [Ativan] 1 mg tablet 1 mg PO TID PRN (Reason: anxiety) Qty: 10 0RF Rx Instructions: Patient may request partial fill (DME) blood pressure test kit-wrist [Blood Pressure Unit-Wrist] Kit See Rx Instructions .ROUTE .MEDSUPPLY Qty: 1 0RF Rx Instructions: to check blood pressure (DME) [place] [facility] [place]ructions .ROUTE .MEDSUPPLY Qty: 1 Rx Instructions: As directed (DME) blood-glucose meter [FreeStyle Lite Meter] Kit See Rx Instructions .Route Qty: 1 0RF Rx Instructions: As directed lorazepam 0.5 mg tablet 0.5 mg PO DAILY PRN (Reason: Severe Anxiety and Panic Disorder) prochlorperazine maleate 10 mg tablet 10 mg PO Q8H PRN (Reason: Nausea) ferrous sulfate 325 mg (65 mg iron) tablet 325 mg PO DAILY 90 Days Qty: 90 1RF albuterol sulfate [Ventolin HFA] 90 mcg/actuation HFA aerosol inhaler 2 puff inhalation Q6H PRN (Reason: shortness of breath or wheezing) 30 Days Qty: 6.7 1RF lidocaine 4 % cream 1 appl topical BID PRN (Reason: pain) Qty: 30 1RF atorvastatin 10 mg tablet 10 mg PO BEDTIME 90 Days Qty: 90 1RF clonidine HCl 0.1 mg tablet 0.1 mg PO TID PRN (Reason: Agitation or Anxiety) mirtazapine 30 mg tablet 30 mg PO BEDTIME metoclopramide HCl [Reglan] 5 mg tablet 5 mg PO TIDAC Qty: 90 6RF Hold Instructions: Doctor's Order Creon 24,000-76,000 -120,000 unit capsule,delayed release(DR/EC) 1 cap PO QID 30 Days Qty: 120 6RF Rx Instructions: administer with meals and/or snacks Advair HFA 230-21 mcg/actuation HFA aerosol inhaler 2 puff inhalation Q12H 30 Days Qty: 1 6RF Referrals: Anna Eddy ANP-C [Nurse Practitioner] - 2 weeks (Gastroparesis) Interventions: ED Discharge Assessment Last Done: 08/07/22 22:08 Discharge Date/Time: 08/07/22 22:09
[2022-08-07 18:40] VITALS: BP 146/79; PULSE 88; RESP 18; TEMP 36.7; O2SAT 98
[2022-08-07] MEDS: LORazepam 1 MG TABLET PO (18:40)
[2022-08-07] MEDS: Metoclopramide HCl 10 MG/2 ML VIAL IVPUSH (18:40)
[2022-08-07] MEDS: diphenhydrAMINE HCL 50 MG/ML VIAL 25 MG IVPUSH (18:40)
--- NOTE | 2022-08-07 18:51 | PC.NURSE ---
patient a/ox4 . allyrla . heart rate regular at 88 . lungs clear throughout , breathing even and unlabored . skin pink warm and dry . patient frequently belching , reports vomiting , diarrhea for 3 days . abdomen soft . positive bowel sounds throughout patient reports 10 out of 10 pain in mid upper abdomen . no rebound tenderness noted . IV placed in left AC . Labs obtained and sent . Patient medicated with Benadryl , Reglan and Ativan as ordered . patient aware of plan of care .
[2022-08-07 19:06] LABS: Alanine Aminotransferase 57 U/L (0-31); Albumin Level 4.5 g/dL (3.5-5.0); Alkaline Phosphatase 137 U/L (39-117); Aspartate Amino Transferase 43 U/L (5-31); Bilirubin Direct 0.2 mg/dL (0.0-0.5); Bilirubin Total 0.7 mg/dL (0.0-1.0); Lipase 53 U/L (8-78); Total Protein 8.5 g/dL (6.5-8.0)
== END 2022-08-07 22:09 | disposition home or self-care (01) ==
PROVIDERS: Nurse Practitioner Family; Emergency Provider Student in an Organized Health Care Education/Training Program; PCP Internal Medicine
DX: E11.43 Type 2 diabetes mellitus with diabetic autonomic (poly)neuropathy (principal); K31.84 Gastroparesis; Z79.4 Long term (current) use of insulin; R11.2 Nausea with vomiting, unspecified; Z20.822 Contact with and (suspected) exposure to COVID-19; Z79.899 Other long term (current) drug therapy
CPT/HCPCS: 36415; 80048; 80076; 83690; 85025; 87635; 96374; 96375; 99284; J1200; J2550; J2765

== ENCOUNTER → 2022-08-13 13:40 | Outpatient (BNVA) | payer OTHER, SELFPAY | PROVIDERS: PCP Internal Medicine; Visit Provider Nurse Practitioner | DX: K31.84 Gastroparesis (principal); E11.43 Type 2 diabetes mellitus with diabetic autonomic (poly)neuropathy; R19.7 Diarrhea, unspecified | CPT/HCPCS: 99212 ==

== ENCOUNTER 2022-08-18 10:21 | Outpatient (REF) | payer OTHER, SELFPAY ==
[2022-08-18 10:37] LABS: MANUAL DIFF FLAG NO
[2022-08-18 11:07] LABS: Basophils Absolute Auto 0.1 X10*3/uL (0.0-0.2); Basophils Percent Auto 0.5 % (0-2); Eosinophils Absolute Auto 0.4 X10*3/uL (0.0-0.4); Hematocrit 42.7 % (37.0-47.0); Hemoglobin 12.6 g/dl (12.0-16.0); Imm Gran Abs Auto 0.13 X10*3/uL (0.00-0.03); Imm Gran Pct Auto 0.9 % (0.0-0.4); Lymphocytes Absolute Auto 2.1 X10*3/uL (1.2-4.9); Lymphocytes Percent Auto 14.1 % (20-40); Mean Corpuscular HGB Conc 29.5 g/dl (31.0-35.0); Mean Corpuscular Volume 77.8 fL (80.0-98.0); Monocytes Absolute Auto 0.7 X10*3/uL (0.1-1.2); Monocytes Percent Auto 4.9 % (2-11); Neutrophils Absolute Auto 11.1 x10*3/uL (2.0-8.3); Neutrophils Percent Auto 76.6 % (45-73); Platelet Count 361 X10*3/uL (160-400); Red Blood Count 5.49 X10*6/uL (4.20-5.50); Red Cell Distribution Width 17.8 % (11.0-16.0); White Blood Count 14.6 X10*3/uL (4.8-10.8)
[2022-08-18 11:42] LABS: Alanine Aminotransferase 37 U/L (0-31); Albumin Level 4.2 g/dL (3.5-5.0); Alkaline Phosphatase 131 U/L (39-117); Anion Gap 18 (12-20); Aspartate Amino Transferase 25 U/L (5-31); Bilirubin Total 0.3 mg/dL (0.0-1.0); Blood Urea Nitrogen 11 mg/dL (9-16); C Reactive Protein 1.33 mg/dL (< or = 0.50); Calcium 9.9 mg/dL (8.4-10.2); Carbon Dioxide 24 mmol/L (22-29); Chloride 100 mmol/L (96-108); Cholesterol 161 mg/dL; Estimated Glomerular Filt Rate > 60; Glucose Random 224 mg/dL (60-115); HDL Cholesterol 47 mg/dL; LDL Cholesterol Calculated 78 mg/dl; Sodium 137 mmol/L (135-145); Total Protein 7.5 g/dL (6.5-8.0); Triglycerides 180 mg/dL
[2022-08-18 11:46] LABS: Estimated Average Glucose 160 mg/dL; Hemoglobin A1c % 7.2 %
[2022-08-18 12:01] LABS: Thyroid Stimulating Hormone 3.35 uIU/mL (0.32-4.0)
[2022-08-18 12:03] LABS: Vitamin D 25-OH Total 13.8 ng/mL (>30)
[2022-08-18 16:11] LABS: Creatinine Urine 398.97 mg/dL; Microalbum/Creatinine Ratio Ur 20.3 ug/mg cr
[2022-08-19 14:06] LABS: Immunoglobulin E 39 kU/L (<OR=114)
== END 2022-08-18 10:22 | disposition home or self-care (01) ==
LOC: HO.LAB 10:21
PROVIDERS: Internal Medicine Pulmonary Disease; PCP Internal Medicine; Visit Provider Nurse Practitioner
DX: R11.2 Nausea with vomiting, unspecified (principal); E11.43 Type 2 diabetes mellitus with diabetic autonomic (poly)neuropathy; K31.84 Gastroparesis; J45.40 Moderate persistent asthma, uncomplicated; E78.5 Hyperlipidemia, unspecified; E55.9 Vitamin D deficiency, unspecified; E03.9 Hypothyroidism, unspecified
CPT/HCPCS: 36415; 80053; 80061; 82043; 82306; 82785; 83036; 84443; 85025; 86140

== ENCOUNTER 2022-08-20 10:11 | Outpatient (REF) | payer OTHER, SELFPAY ==
[2022-08-20 11:12] LABS: CDiff Gene PCR NEGATIVE (Negative)
== END 2022-08-20 10:12 | disposition home or self-care (01) ==
LOC: HO.LNP 10:11
PROVIDERS: Visit Provider Nurse Practitioner
DX: E11.43 Type 2 diabetes mellitus with diabetic autonomic (poly)neuropathy (principal); K31.84 Gastroparesis; R19.7 Diarrhea, unspecified; K21.9 Gastro-esophageal reflux disease without esophagitis
CPT/HCPCS: 87493; 99212

== ENCOUNTER 2022-09-25 17:39 | Emergency (ER) | payer OTHER, SELFPAY ==
[2022-09-25 17:57] VITALS: BP 148/78; PULSE 96; RESP 18; TEMP 36.6; O2SAT 96; BMI 39.4
--- NOTE | 2022-09-25 17:58 | ED.GENADULT ---
HPI - General Adult General Chief complaint: General Medical Stated complaint: numbness is arm into shoulder Time Seen by Provider: 09/25/22 21:28 Related Data Home Medications Medication Instructions Recorded Confirmed vaporizers #1 ea 10/10/20 08/10/22 clonidine HCl 0.1 mg tablet 0.1 mg PO TID PRN Agitation or 09/19/21 08/10/22 Anxiety prochlorperazine maleate 10 mg 10 mg PO Q8H PRN Nausea 04/09/22 08/10/22 tablet mirtazapine 30 mg tablet 30 mg PO BEDTIME 06/23/22 08/10/22 acetaminophen 650 mg 650 mg PO Q8H PRN arthritis pain 07/04/22 08/10/22 tablet,extended release (Tylenol Arthritis Pain) ergocalciferol (vitamin D2) 1,250 1,250 mcg PO Q2W 07/04/22 08/10/22 mcg (50,000 unit) capsule furosemide 40 mg tablet 80 mg PO DAILY 07/04/22 08/10/22 insulin lispro 100 unit/mL See Rx Instructions .Route .COMPLEX 07/04/22 08/10/22 subcutaneous solution (Humalog U-100 Insulin) lorazepam 0.5 mg tablet 0.5 mg PO DAILY PRN 08/13/22 pantoprazole 40 mg tablet,delayed 40 mg PO DAILY 08/13/22 release Previous Rx's Medication Instructions Recorded lancets 28 gauge (FreeStyle #100 ea 05/23/21 Lancets) lancets 28 gauge (FreeStyle #100 ea 11/12/21 Lancets) diabetic supplies, miscellan. #1 ea 12/03/21 flash glucose sensor (FreeStyle #1 ea 12/03/21 Julianne 2 Sensor kit) heating pads #1 ea 01/21/22 sennosides 8.6 mg tablet (senna) 17.2 mg PO BEDTIME #60 tabs 01/26/22 Gel mattress overlay #1 ea 01/28/22 Toilet seat riser #1 ea 03/05/22 blood pressure monitor #1 ea 03/10/22 miscellaneous medical supply #1 ea 03/10/22 atorvastatin 10 mg tablet 10 mg PO BEDTIME 90 days #90 tabs 03/16/22 albuterol sulfate 90 mcg/actuation 2 puff inhalation Q6H PRN 04/09/22 aerosol inhaler (Ventolin HFA) shortness of breath or wheezing 30 days #6.7 grams ferrous sulfate 325 mg (65 mg 325 mg PO DAILY 90 days #90 tabs 04/09/22 iron) tablet pen needle, diabetic 31 gauge x #100 ea 04/10/22 3/16 (BD Ultra-Fine Mini Pen Needle) insulin syringe-needle U-100 0.5 #100 ea 04/13/22 mL 31 gauge x 5/16 (BD Insulin Syringe Ultra-Fine) pyridoxine (vitamin B6) 100 mg 100 mg PO DAILY 90 days #90 tabs 04/20/22 tablet diabetic shoes and inserts #1 ea 05/06/22 Shower Chair #1 ea 05/11/22 [id number] 1 cap PO QID 30 days #120 caps 05/12/22 24,000-76,000-120,000 unit capsule,delayed rel (Creon) metoclopramide HCl 5 mg tablet 5 mg PO TIDAC #90 tabs 05/12/22 (Reglan) fluticasone propionate 230 2 puff inhalation Q12H 30 days #1 05/29/22 mcg-salmeterol 21 mcg/actuation ea HFA inhaler (Advair HFA) lidocaine 4 % topical cream 1 appl topical BID PRN pain #30 06/10/22 grams levothyroxine 112 mcg tablet 112 mcg PO DAILY 90 days #90 tabs 06/21/22 insulin glargine 100 unit/mL 10 unit (0.1 mL) subcut QPM 90 07/16/22 subcutaneous solution (Lantus days #9 mL U-100 Insulin) insulin syr/ndl U100 half desean 0.3 #100 ea 07/16/22 mL 31 gauge x 5/16 (BD Insulin Syringe Ultra-Fine (half unit)) hydrocortisone 1 % topical cream 1 appl topical TID PRN skin 07/22/22 (Anti-Itch (hydrocortisone)) irritation 30 days #28.4 grams lorazepam 1 mg tablet (Ativan) 1 mg PO BID PRN anxiety #14 tabs 08/03/22 metoclopramide HCl 10 mg tablet 10 mg PO QIDACHS #120 tabs 08/05/22 (Reglan) ondansetron 4 mg disintegrating 4 mg PO Q8H PRN nausea and 08/07/22 tablet vomiting #30 tabs diclofenac sodium 1 % topical gel 2 g topical QID PRN pain #100 grams 08/10/22 (Arthritis Pain (diclofenac)) ammonium lactate 12 % topical cream 1 appl topical BID #385 grams 08/13/22 blood pressure test kit-wrist #1 ea 08/13/22 hydrocortisone 2.5 % topical cream 1 appl [place] BID PRN hemorrhoids #30 08/13/22 with perineal applicator grams (Proctosol HC) loperamide 2 mg capsule 2 mg PO TID PRN loose stool #90 08/13/22 (Anti-Diarrheal (loperamide)) caps peg 3350-electrolytes 236 240 ml PO Q10M 1 day #4,000 mL 08/13/22 gram-22.74 gram-6.74 gram-5.86 gram solution (Golytely) cyclobenzaprine 10 mg tablet 10 mg PO TID #90 tabs 08/20/22 sulfamethoxazole 800 1 tab PO BID 5 days #10 tabs 08/20/22 mg-trimethoprim 160 mg tablet (Bactrim DS) duloxetine 60 mg capsule,delayed 90 mg PO DAILY 90 days #135 caps 08/24/22 release blood sugar diagnostic (FreeStyle #100 ea 09/01/22 Lite Strips) blood-glucose meter (FreeStyle #1 ea 09/01/22 Lite Meter kit) walker #1 ea 09/01/22 alcohol swabs (Alcohol Prep Pads) 1 pad topical .once a day 90 days 09/04/22 #100 ea clotrimazole 1 % topical cream 1 appl topical BID 4 weeks #30 09/04/22 grams gabapentin 800 mg tablet 800 mg PO TID 30 days #90 tabs 09/04/22 metformin 500 mg tablet 500 mg PO BID #180 tabs 09/04/22 amlodipine 10 mg tablet 10 mg PO DAILY #90 tabs 09/15/22 meclizine 25 mg tablet 25 mg PO TID PRN dizziness 30 days 09/23/22 #90 tabs water for irrigation, sterile 1 irrig irrigation DAILY 30 days 09/25/22 #500 mL Allergies Allergy/AdvReac Type Severity Reaction Status Date / Time Penicillins Allergy Severe swelling Verified 08/20/22 13:58 adhesive tape [ADHESIVE TAPE] Allergy Intermediate RASH Verified 08/20/22 13:58 amoxicillin [AMOXICILLIN] Allergy Intermediate RASH,SWELLING, Verified 08/20/22 13:58 RASH/SWELLING latex Allergy Intermediate Rash Verified 08/20/22 13:58 Motrin Allergy Intermediate hypertensio Verified 08/20/22 13:58 n [facility] Past Medical History Medical History (Updated 09/26/22 @ 00:00 by Dede [place]) Arthropathy of facet joint Asthma Bilateral shoulder pain Chronic idiopathic constipation Chronic pain (Unknown) Chronic pain syndrome Degeneration, intervertebral disc, cervical Diabetes mellitus Disc degeneration, lumbar Fibromyalgia LUDY (generalized anxiety disorder) Gastroparesis Goiter Hyperlipidemia LDL goal <70 Hypothyroidism Incontinence Insomnia Left knee pain Lumbar pain Moderately severe recurrent major depression Morbid (severe) obesity due to excess calories Multiple air fluid levels of small intestine determined by X-ray Renal calculi Sleep apnea Small bowel motility disorder Spondylosis of cervical spine at multiple levels without myelopathy Spondylosis of cervical spine at multiple levels without myelopathy Spondylosis of lumbar region without myelopathy or radiculopathy Surgical History Delivery by section History of cholecystectomy History of esophagogastroduodenoscopy (EGD) History of hernia surgery History of hysterectomy History of knee replacement procedure of right knee Hx of colonoscopy Family History Family History Father Past heart attack Anxiety Mother MOF (multiple organ failure) Brother HIV (human immunodeficiency virus infection) Sister Ovarian cancer Lupus Bone cancer Uterine cancer Tumor Daughter Guillain-Pearl Sister Lupus History of open heart surgery Family/Other Depression FH: mental illness Maternal Aunt Breast cancer Maternal Aunt Tumor Social History Social History Household Members: None Household Members Other:: Housing: Apartment Are you a primary manager urgent care to a significant other at home: No Do you presently have visiting nurse or other home services: Yes (TELEPHONE AD TAKER) Alcohol intake: never Patient Tobacco Use Status: Never used Tobacco e-Cigarette/Vaping Use: Never Used Second Hand Smoke Exposure: Yes Advance Directives: Yes Advance Directives on File: Yes Advance Directives Date on File: 12/08/21 service: No Current occupational status: unemployed and disabled Cognitive needs: No Hearing needs: No Vision needs: No Physical Exam ED Vital Signs: BMI result Body Mass Index 39.4 Course Course Course Narrative: RME - 57 y/o right hand dominant female with history of obesity, MARY, DM, hypothyroidism, HTN, HLD, anxiety/depression, vertigo, GERD among other comorbidities who presents to the ER for evaluation of 2-3 days of intermittent and now progressive LUE numbness, weakness and pain. She states her symptoms started in the left hand with tingling and now weakness and pain all along her left upper extremity to shoulder, neck and now left chest. She also has a left sided headache. Will get CT head, labs and EKG. Plan per provider in the Main ED. Medical Decision Making Lab Data Result Diagrams: 09/25/22 19:53 09/25/22 19:39 Labs: Lab Results 09/25/22 09/25/22 09/25/22 Range/Units 19:39 19:39 19:53 WBC 14.8 H (4.8-10.8) X10*3/uL RBC 5.74 H (4.20-5.50) X10*6/uL Hgb 12.9 (12.0-16.0) g/dl Hct 43.2 (37.0-47.0) % MCV 75.3 L (80.0-98.0) fL MCH 22.5 L (27.0-33.0) pg MCHC 29.9 L (31.0-35.0) g/dl RDW 17.6 H (11.0-16.0) % Plt Count 280 (160-400) X10*3/uL MPV 10.6 (9.4-12.3) fL Immature Gran % (Auto) 0.7 H (0.0-0.4) % Neut % (Auto) 77.2 H (45-73) % Lymph % (Auto) 15.3 L (20-40) % [place] % (Auto) 4.6 (2-11) % Eos % (Auto) 1.9 (0-4) % Baso % (Auto) 0.3 (0-2) % Lymph # (Auto) 2.3 (1.2-4.9) X10*3/uL [place] # (Auto) 0.7 (0.1-1.2) X10*3/uL Eos # (Auto) 0.3 (0.0-0.4) X10*3/uL Baso # (Auto) 0.0 (0.0-0.2) X10*3/uL Abs Immat Gran (auto) 0.11 H (0.00-0.03) X10*3/uL Absolute Neuts (auto) 11.5 H (2.0-8.3) x10*3/uL Absolute Nucleated RBC 0.000 (0.0-0.012) X10*3/uL Nucleated RBC % (auto) 0.0 (0.0-0.2) /100WBC Sodium Cancelled 142 Potassium Cancelled 5.1 Chloride Cancelled 106 Carbon Dioxide Cancelled 26 Anion Gap Cancelled 15 BUN Cancelled 14 Creatinine Cancelled 0.67 Estim Creat Clear Calc Cancelled 122.3 Estimated GFR Cancelled > 60 Random Glucose Cancelled 88 Calcium Cancelled 9.6 Magnesium Cancelled 2.0 Total Bilirubin Cancelled 0.3 Direct Bilirubin Cancelled < 0.2 AST Cancelled 20 ALT Cancelled 26 Alkaline Phosphatase Cancelled 133 H Troponin I High Sens (<3.5-17.0) ng/L Total Protein Cancelled 7.5 Albumin Cancelled 4.2 TSH 2.83 (0.32-4.0) uIU/mL Influenza Type A (PCR) (Negative) Influenza Type B (PCR) (Negative) RSV RNA Qual (PCR) (Negative) SARS-CoV-2 RNA (RT-PCR) (Negative) 09/25/22 09/25/22 Range/Units 19:53 21:50 WBC (4.8-10.8) X10*3/uL RBC (4.20-5.50) X10*6/uL Hgb (12.0-16.0) g/dl Hct (37.0-47.0) % MCV (80.0-98.0) fL MCH (27.0-33.0) pg MCHC (31.0-35.0) g/dl RDW (11.0-16.0) % Plt Count (160-400) X10*3/uL MPV (9.4-12.3) fL Immature Gran % (Auto) (0.0-0.4) % Neut % (Auto) (45-73) % Lymph % (Auto) (20-40) % [place] % (Auto) (2-11) % Eos % (Auto) (0-4) % Baso % (Auto) (0-2) % Lymph # (Auto) (1.2-4.9) X10*3/uL [place] # (Auto) (0.1-1.2) X10*3/uL Eos # (Auto) (0.0-0.4) X10*3/uL Baso # (Auto) (0.0-0.2) X10*3/uL Abs Immat Gran (auto) (0.00-0.03) X10*3/uL Absolute Neuts (auto) (2.0-8.3) x10*3/uL Absolute Nucleated RBC (0.0-0.012) X10*3/uL Nucleated RBC % (auto) (0.0-0.2) /100WBC Sodium Potassium Chloride Carbon Dioxide Anion Gap BUN Creatinine Estim Creat Clear Calc Estimated GFR Random Glucose Calcium Magnesium Total Bilirubin Direct Bilirubin AST ALT Alkaline Phosphatase Troponin I High Sens 6.3 (<3.5-17.0) ng/L Total Protein Albumin TSH (0.32-4.0) uIU/mL Influenza Type A (PCR) NEGATIVE (Negative) Influenza Type B (PCR) NEGATIVE (Negative) RSV RNA Qual (PCR) NEGATIVE (Negative) SARS-CoV-2 RNA (RT-PCR) NEGATIVE (Negative) Discharge Plan Discharge Clinical Impression: Arm paresthesia, left, Cervical arthritis Patient Disposition: Home, Self-Care Instructions: Paresthesia (ED), Chronic Neck Pain (DC) Additional Instructions: Your workup in the emergency department showed a normal CT scan without evidence of stroke. Your cardiac workup was negative with normal cardiac enzymes. Your viral swab showed no evidence of influenza, COVID-19, or RSV. Follow-up with your primary care physician for further treatment. Physical therapy for the paresthesias. [facility]. Call [phone] Prescriptions: No Action (DME) lancets [FreeStyle Lancets] 28 gauge misc See Rx Instructions .Route Qty: 100 6RF Rx Instructions: BID (DME) lancets [FreeStyle Lancets] 28 gauge misc See Rx Instructions .Route Qty: 100 3RF Rx Instructions: Use 1 lancet once a day (DME) FreeStyle Julianne 2 Sensor Kit See Rx Instructions .Route Qty: 1 2RF Rx Instructions: As directed (DME) diabetic supplies, miscellan. Misc See Rx Instructions .Route Qty: 1 0RF Rx Instructions: As directed (DME) heating pads Pad See Rx Instructions .Route Qty: 1 0RF Rx Instructions: As directed sennosides [senna] 8.6 mg tablet 17.2 mg PO BEDTIME Qty: 60 3RF Hold Instructions: Doctor's Order (DME) Gel mattress overlay Misc See Rx Instructions .Route Qty: 1 0RF Rx Instructions: As directed ([facility] [place] Toilet seat riser See Rx Instructions .Route .MEDSUPPLY Qty: 1 0RF Rx Instructions: As directed ([facility] [place]) miscellaneous medical supply Misc See Rx Instructions .ROUTE .MEDSUPPLY Qty: 1 0RF Rx Instructions: toilet seat elevator (DME) blood pressure monitor Kit See Rx Instructions .Route Qty: 1 0RF Rx Instructions: Use as needed (DME) pen needle, diabetic [BD Ultra-Fine Mini Pen Needle] 31 gauge x 3/16 needle See Rx Instructions .Route Qty: 100 0RF Rx Instructions: As directed (DME) insulin syringe-needle U-100 [BD Insulin Syringe Ultra-Fine] 0.5 mL 31 gauge x 5/16 syringe See Rx Instructions .Route Qty: 100 3RF Rx Instructions: Use 1 three times a day pyridoxine (vitamin B6) 100 mg tablet 100 mg PO DAILY 90 Days Qty: 90 1RF (DME) diabetic shoes and inserts See Rx Instructions .Route .MEDSUPPLY Qty: 1 1RF Rx Instructions: As directed levothyroxine 112 mcg tablet 112 mcg PO DAILY 90 Days Qty: 90 1RF insulin glargine [Lantus U-100 Insulin] 100 unit/mL solution 10 unit subcut QPM 90 Days Qty: 9 1RF (DME) BD Insulin Syringe (half unit) 0.3 mL 31 gauge x 5/16 syringe See Rx Instructions .Route Qty: 100 3RF Rx Instructions: Use 1 needle once a day hydrocortisone [Anti-Itch (HC)] 1 % cream 1 appl topical TID PRN (Reason: skin irritation) 30 Days Qty: 28.4 0RF metoclopramide HCl [Reglan] 10 mg tablet 10 mg PO QIDACHS Qty: 120 3RF Rx Instructions: Provider aware possible interactions and is monitoring patient duloxetine 60 mg capsule,delayed release(DR/EC) 90 mg PO DAILY 90 Days Qty: 135 1RF (DME) blood-glucose meter [FreeStyle Lite Meter] Kit See Rx Instructions .Route Qty: 1 0RF Rx Instructions: As directed (DME) FreeStyle Lite Strips Strip See Rx Instructions .Route Qty: 100 3RF Rx Instructions: use 1 test strip once a day (DME) walker [facility] [place] See Rx Instructions .Route Qty: 1 0RF Rx Instructions: walker with seat and wheels metformin 500 mg tablet 500 mg PO BID Qty: 180 2RF clotrimazole 1 % cream 1 appl topical BID 28 Days Qty: 30 1RF alcohol swabs [Alcohol Prep Pads] Pads, Medicated 1 pad topical .once a day 90 Days Qty: 100 0RF gabapentin 800 mg tablet 800 mg PO TID 30 Days Qty: 90 0RF amlodipine 10 mg tablet 10 mg PO DAILY Qty: 90 1RF meclizine 25 mg tablet 25 mg PO TID PRN (Reason: dizziness) 30 Days Qty: 90 0RF water for irrigation, sterile Solution 1 irrig irrigation DAILY 30 Days Qty: 500 6RF lorazepam [Ativan] 1 mg tablet 1 mg PO BID PRN (Reason: anxiety) Qty: 14 0RF ondansetron 4 mg tablet,disintegrating 4 mg PO Q8H PRN (Reason: nausea and vomiting) Qty: 30 0RF (DME) Shower Chair [facility] [place] See Rx Instructions .Route Qty: 1 0RF Rx Instructions: As directed furosemide 40 mg tablet 80 mg PO DAILY acetaminophen [Tylenol Arthritis Pain] 650 mg Tablet Extended Release 650 mg PO Q8H PRN (Reason: arthritis pain) ergocalciferol (vitamin D2) 1,250 mcg (50,000 unit) capsule 1,250 mcg PO Q2W insulin lispro [Humalog U-100 Insulin] 100 unit/mL solution See Rx Instructions .ROUTE .COMPLEX Rx Instructions: Patient takes per sliding scale (DME) vaporizers [facility] [place] See Rx Instructions .ROUTE .MEDSUPPLY Qty: 1 Rx Instructions: As directed prochlorperazine maleate 10 mg tablet 10 mg PO Q8H PRN (Reason: Nausea) ferrous sulfate 325 mg (65 mg iron) tablet 325 mg PO DAILY 90 Days Qty: 90 1RF albuterol sulfate [Ventolin HFA] 90 mcg/actuation HFA aerosol inhaler 2 puff inhalation Q6H PRN (Reason: shortness of breath or wheezing) 30 Days Qty: 6.7 1RF lidocaine 4 % cream 1 appl topical BID PRN (Reason: pain) Qty: 30 1RF atorvastatin 10 mg tablet 10 mg PO BEDTIME 90 Days Qty: 90 1RF diclofenac sodium [Arthritis Pain (diclofenac)] 1 % gel 2 g topical QID PRN (Reason: pain) Qty: 100 0RF Rx Instructions: apply to neck clonidine HCl 0.1 mg tablet 0.1 mg PO TID PRN (Reason: Agitation or Anxiety) mirtazapine 30 mg tablet 30 mg PO BEDTIME metoclopramide HCl [Reglan] 5 mg tablet 5 mg PO TIDAC Qty: 90 6RF Hold Instructions: Doctor's Order Creon 24,000-76,000 -120,000 unit capsule,delayed release(DR/EC) 1 cap PO QID 30 Days Qty: 120 6RF Rx Instructions: administer with meals and/or snacks Advair HFA 230-21 mcg/actuation HFA aerosol inhaler 2 puff inhalation Q12H 30 Days Qty: 1 6RF pantoprazole 40 mg tablet,delayed release (DR/EC) 40 mg PO DAILY lorazepam 0.5 mg tablet 0.5 mg PO DAILY PRN peg 3350-electrolytes [Golytely] 236-22.74-6.74 -5.86 gram recon soln 240 ml PO Q10M 1 Days Qty: 4000 0RF Rx Instructions: until fecal effluent is clear; do not exceed a total volume of 2,000 mL hydrocortisone [Proctosol HC] 2.5 % cream with perineal applicator 1 appl WI BID PRN (Reason: hemorrhoids) Qty: 30 3RF loperamide [Anti-Diarrheal (loperamide)] 2 mg capsule 2 mg PO TID PRN (Reason: loose stool) Qty: 90 0RF ammonium lactate 12 % cream 1 appl topical BID Qty: 385 6RF (DME) blood pressure test kit-wrist Kit See Rx Instructions .ROUTE .MEDSUPPLY Qty: 1 0RF Rx Instructions: to check blood pressure sulfamethoxazole-trimethoprim [Bactrim DS] 800-160 mg tablet 1 tab PO BID 5 Days Qty: 10 0RF cyclobenzaprine 10 mg tablet 10 mg PO TID Qty: 90 0RF Interventions: ED Discharge Assessment Last Done: 09/25/22 23:58 Discharge Date/Time: 09/25/22 23:58
--- NOTE | 2022-09-25 18:01 | ECG_ITS ---
Test Reason : NUMBNESS Blood Pressure : / mmHG Vent. Rate : 087 BPM Atrial Rate : 087 BPM P-R Int : 140 ms QRS Dur : 076 ms QT Int : 382 ms P-R-T Axes : -06 -04 001 degrees QTc Int : 459 ms Normal sinus rhythm Normal ECG When compared with ECG of 02-AUG-2022 23:12, No significant change was found Referred By: Yvonne Treviño Electronically Signed By:Antonio Espinosa
[2022-09-25 20:03] LABS: MANUAL DIFF FLAG NO
[2022-09-25 20:04] LABS: Basophils Percent Auto 0.3 % (0-2); Eosinophils Absolute Auto 0.3 X10*3/uL (0.0-0.4); Eosinophils Percent Auto 1.9 % (0-4); Hematocrit 43.2 % (37.0-47.0); Hemoglobin 12.9 g/dl (12.0-16.0); Imm Gran Abs Auto 0.11 X10*3/uL (0.00-0.03); Imm Gran Pct Auto 0.7 % (0.0-0.4); Lymphocytes Absolute Auto 2.3 X10*3/uL (1.2-4.9); Lymphocytes Percent Auto 15.3 % (20-40); Mean Corpuscular HGB Conc 29.9 g/dl (31.0-35.0); Mean Corpuscular Hemoglobin 22.5 pg (27.0-33.0); Mean Corpuscular Volume 75.3 fL (80.0-98.0); Mean Platelet Volume 10.6 fL (9.4-12.3); Monocytes Absolute Auto 0.7 X10*3/uL (0.1-1.2); Monocytes Percent Auto 4.6 % (2-11); Neutrophils Absolute Auto 11.5 x10*3/uL (2.0-8.3); Neutrophils Percent Auto 77.2 % (45-73); Platelet Count 280 X10*3/uL (160-400); Red Blood Count 5.74 X10*6/uL (4.20-5.50); Red Cell Distribution Width 17.6 % (11.0-16.0); White Blood Count 14.8 X10*3/uL (4.8-10.8)
[2022-09-25 20:28] LABS: Troponin-I High Sensitivity 6.3 ng/L (<3.5-17.0)
[2022-09-25 20:30] LABS: Alanine Aminotransferase 26 U/L (0-31); Albumin Level 4.2 g/dL (3.5-5.0); Alkaline Phosphatase 133 U/L (39-117); Anion Gap 15 (12-20); Aspartate Amino Transferase 20 U/L (5-31); Bilirubin Direct < 0.2 mg/dL (0.0-0.5); Bilirubin Total 0.3 mg/dL (0.0-1.0); Blood Urea Nitrogen 14 mg/dL (9-16); Calcium 9.6 mg/dL (8.4-10.2); Carbon Dioxide 26 mmol/L (22-29); Chloride 106 mmol/L (96-108); Creatinine Clr Calc Pharmacy 122.3; Estimated Glomerular Filt Rate > 60; Glucose Random 88 mg/dL (60-115); Potassium 5.1 mmol/L (3.3-5.1); Sodium 142 mmol/L (135-145); TSH reflex Free T4 2.83 uIU/mL (0.32-4.0); Total Protein 7.5 g/dL (6.5-8.0)
--- NOTE | 2022-09-25 21:44 | ED.GENADULT ---
HPI - General Adult General Chief complaint: General Medical Stated complaint: numbness is arm into shoulder Time Seen by Provider: 09/25/22 21:28 Source: patient and old records reviewed History of Present Illness HPI narrative: Patient with a history of diabetes, neuropathy, C-spine degenerative changes, migraine, bronchitis, presents with left neck, arm, hand paresthesias. She describes it as pins and needle sensation. It affects her ring and middle finger up into her neck. It radiates into her head. No weakness. No history of similar issues despite her prior history of C-spine degenerative changes. She called her PCP who recommended she come to the emergency department for further workup. She denies chest pain but states over last few days she has been coughing and having dyspnea especially when laying flat. No history of congestive heart failure. She took a home COVID test was negative. Related Data Home Medications Medication Instructions Recorded Confirmed vaporizers #1 ea 10/10/20 08/10/22 clonidine HCl 0.1 mg tablet 0.1 mg PO TID PRN Agitation or 09/19/21 08/10/22 Anxiety prochlorperazine maleate 10 mg 10 mg PO Q8H PRN Nausea 04/09/22 08/10/22 tablet mirtazapine 30 mg tablet 30 mg PO BEDTIME 06/23/22 08/10/22 acetaminophen 650 mg 650 mg PO Q8H PRN arthritis pain 07/04/22 08/10/22 tablet,extended release (Tylenol Arthritis Pain) ergocalciferol (vitamin D2) 1,250 1,250 mcg PO Q2W 07/04/22 08/10/22 mcg (50,000 unit) capsule furosemide 40 mg tablet 80 mg PO DAILY 07/04/22 08/10/22 insulin lispro 100 unit/mL See Rx Instructions .Route .COMPLEX 07/04/22 08/10/22 subcutaneous solution (Humalog U-100 Insulin) lorazepam 0.5 mg tablet 0.5 mg PO DAILY PRN 08/13/22 pantoprazole 40 mg tablet,delayed 40 mg PO DAILY 08/13/22 release Previous Rx's Medication Instructions Recorded lancets 28 gauge (FreeStyle #100 ea 05/23/21 Lancets) lancets 28 gauge (FreeStyle #100 ea 11/12/21 Lancets) diabetic supplies, miscellan. #1 ea 12/03/21 flash glucose sensor (FreeStyle #1 ea 12/03/21 Julianne 2 Sensor kit) heating pads #1 ea 01/21/22 sennosides 8.6 mg tablet (senna) 17.2 mg PO BEDTIME #60 tabs 01/26/22 Gel mattress overlay #1 ea 01/28/22 Toilet seat riser #1 ea 03/05/22 blood pressure monitor #1 ea 03/10/22 miscellaneous medical supply #1 ea 03/10/22 atorvastatin 10 mg tablet 10 mg PO BEDTIME 90 days #90 tabs 03/16/22 albuterol sulfate 90 mcg/actuation 2 puff inhalation Q6H PRN 04/09/22 aerosol inhaler (Ventolin HFA) shortness of breath or wheezing 30 days #6.7 grams ferrous sulfate 325 mg (65 mg 325 mg PO DAILY 90 days #90 tabs 04/09/22 iron) tablet pen needle, diabetic 31 gauge x #100 ea 04/10/22 3/16 (BD Ultra-Fine Mini Pen Needle) insulin syringe-needle U-100 0.5 #100 ea 04/13/22 mL 31 gauge x 5/16 (BD Insulin Syringe Ultra-Fine) pyridoxine (vitamin B6) 100 mg 100 mg PO DAILY 90 days #90 tabs 04/20/22 tablet diabetic shoes and inserts #1 ea 05/06/22 Shower Chair #1 ea 05/11/22 [id number] 1 cap PO QID 30 days #120 caps 05/12/22 24,000-76,000-120,000 unit capsule,delayed rel (Creon) metoclopramide HCl 5 mg tablet 5 mg PO TIDAC #90 tabs 05/12/22 (Reglan) fluticasone propionate 230 2 puff inhalation Q12H 30 days #1 05/29/22 mcg-salmeterol 21 mcg/actuation ea HFA inhaler (Advair HFA) lidocaine 4 % topical cream 1 appl topical BID PRN pain #30 06/10/22 grams levothyroxine 112 mcg tablet 112 mcg PO DAILY 90 days #90 tabs 06/21/22 insulin glargine 100 unit/mL 10 unit (0.1 mL) subcut QPM 90 07/16/22 subcutaneous solution (Lantus days #9 mL U-100 Insulin) insulin syr/ndl U100 half desean 0.3 #100 ea 07/16/22 mL 31 gauge x 5/16 (BD Insulin Syringe Ultra-Fine (half unit)) hydrocortisone 1 % topical cream 1 appl topical TID PRN skin 07/22/22 (Anti-Itch (hydrocortisone)) irritation 30 days #28.4 grams lorazepam 1 mg tablet (Ativan) 1 mg PO BID PRN anxiety #14 tabs 08/03/22 metoclopramide HCl 10 mg tablet 10 mg PO QIDACHS #120 tabs 08/05/22 (Reglan) ondansetron 4 mg disintegrating 4 mg PO Q8H PRN nausea and 08/07/22 tablet vomiting #30 tabs diclofenac sodium 1 % topical gel 2 g topical QID PRN pain #100 grams 08/10/22 (Arthritis Pain (diclofenac)) ammonium lactate 12 % topical cream 1 appl topical BID #385 grams 08/13/22 blood pressure test kit-wrist #1 ea 08/13/22 hydrocortisone 2.5 % topical cream 1 appl [place] BID PRN hemorrhoids #30 08/13/22 with perineal applicator grams (Proctosol HC) loperamide 2 mg capsule 2 mg PO TID PRN loose stool #90 08/13/22 (Anti-Diarrheal (loperamide)) caps peg 3350-electrolytes 236 240 ml PO Q10M 1 day #4,000 mL 08/13/22 gram-22.74 gram-6.74 gram-5.86 gram solution (Golytely) cyclobenzaprine 10 mg tablet 10 mg PO TID #90 tabs 08/20/22 sulfamethoxazole 800 1 tab PO BID 5 days #10 tabs 08/20/22 mg-trimethoprim 160 mg tablet (Bactrim DS) duloxetine 60 mg capsule,delayed 90 mg PO DAILY 90 days #135 caps 08/24/22 release blood sugar diagnostic (FreeStyle #100 ea 09/01/22 Lite Strips) blood-glucose meter (FreeStyle #1 ea 09/01/22 Lite Meter kit) walker #1 ea 09/01/22 alcohol swabs (Alcohol Prep Pads) 1 pad topical .once a day 90 days 09/04/22 #100 ea clotrimazole 1 % topical cream 1 appl topical BID 4 weeks #30 09/04/22 grams gabapentin 800 mg tablet 800 mg PO TID 30 days #90 tabs 09/04/22 metformin 500 mg tablet 500 mg PO BID #180 tabs 09/04/22 amlodipine 10 mg tablet 10 mg PO DAILY #90 tabs 09/15/22 meclizine 25 mg tablet 25 mg PO TID PRN dizziness 30 days 09/23/22 #90 tabs water for irrigation, sterile 1 irrig irrigation DAILY 30 days 09/25/22 #500 mL Allergies Allergy/AdvReac Type Severity Reaction Status Date / Time Penicillins Allergy Severe swelling Verified 08/20/22 13:58 adhesive tape [ADHESIVE TAPE] Allergy Intermediate RASH Verified 08/20/22 13:58 amoxicillin [AMOXICILLIN] Allergy Intermediate RASH,SWELLING, Verified 08/20/22 13:58 RASH/SWELLING latex Allergy Intermediate Rash Verified 08/20/22 13:58 Motrin Allergy Intermediate hypertensio Verified 08/20/22 13:58 n Review of Systems Constitutional: Comments: No fevers or chills. Positive malaise ENT: Comments: Paresthesias to left side of head Cardiovascular: Comments: No chest pain. Respiratory: Comments: Dyspnea, coughing, orthopnea Gastrointestinal: Comments: No nausea vomiting diarrhea constipation Musculoskeletal: Comments: No extremity swelling. Right foot itchy. Integumentary/Breasts: Comments: Skin changes bilateral feet per patient Neurologic: Comments: No focal weakness. Paresthesias as described Psychiatric: Comments: Diabetes PMFSH Past Medical History Medical History (Updated 09/25/22 @ 23:40 by Eusebio Jimenes MD) Arthropathy of facet joint Asthma Bilateral shoulder pain Chronic idiopathic constipation Chronic pain (Unknown) Chronic pain syndrome Degeneration, intervertebral disc, cervical Diabetes mellitus Disc degeneration, lumbar Fibromyalgia LUDY (generalized anxiety disorder) Gastroparesis Goiter Hyperlipidemia LDL goal <70 Hypothyroidism Incontinence Insomnia Left knee pain Lumbar pain Moderately severe recurrent major depression Morbid (severe) obesity due to excess calories Multiple air fluid levels of small intestine determined by X-ray Renal calculi Sleep apnea Small bowel motility disorder Spondylosis of cervical spine at multiple levels without myelopathy Spondylosis of cervical spine at multiple levels without myelopathy Spondylosis of lumbar region without myelopathy or radiculopathy Surgical History Delivery by section History of cholecystectomy History of esophagogastroduodenoscopy (EGD) History of hernia surgery History of hysterectomy History of knee replacement procedure of right knee Hx of colonoscopy Family History Family History Father Past heart attack Anxiety Mother MOF (multiple organ failure) Brother HIV (human immunodeficiency virus infection) Sister Ovarian cancer Lupus Bone cancer Uterine cancer Tumor Daughter Guillain-Blaine Sister Lupus History of open heart surgery Family/Other Depression FH: mental illness Maternal Aunt Breast cancer Maternal Aunt Tumor Social History Social History Household Members: None Household Members Other:: Housing: Apartment Are you a primary career technical education teacher to a significant other at home: No Do you presently have visiting nurse or other home services: Yes ([employer]) Alcohol intake: never Patient Tobacco Use Status: Never used Tobacco e-Cigarette/Vaping Use: Never Used Second Hand Smoke Exposure: Yes Advance Directives: Yes Advance Directives on File: Yes Advance Directives Date on File: 12/08/21 service: No Current occupational status: unemployed and disabled Cognitive needs: No Hearing needs: No Vision needs: No Physical Exam ED Vital Signs: Vital Signs - 24 hr 09/25/22 17:57 Temperature 97.9 F Pulse Rate 96 Respiratory Rate 18 Blood Pressure 148/78 H Pulse Oximetry 96 Oxygen Delivery Method Room Air BMI result Body Mass Index 39.4 Const Other: Awake and alert. No acute distress. HENMT Other: Normocephalic atraumatic. Sensation intact to scalp Resp Other: Clear and equal bilaterally without wheezes rales or rhonchi Cardio Other: Regular rate and rhythm without murmurs rubs or gallops GI Other: Soft nontender nondistended Skin Other: Mild pigmentation of dorsum of bilateral feet consistent with early venous stasis changes. Circulation is intact. No evidence for cellulitis Neuro Other: Neurologically nonfocal. No weakness. No sensory deficits. Paresthesias as described in C7-8 distribution Extrem Other: Bilateral 1 to 2+ edema. Course Course Course Narrative: Workup in the emergency department shows a CBC with a white count of 14.8 1000. This is consistent with her baseline however. No acute abnormalities noted. Chemistries are normal. Troponin is normal. TSH is normal. Head CT shows no evidence of stroke. Chest x-ray is clear without infiltrate. Await serology. Final diagnosis for presenting symptoms are radiculopathy without evidence of stroke. Dyspnea with viral syndrome, without desaturation or respiratory distress. 23:37. Viral panel negative for influenza, COVID-19, RSV. Medical Decision Making Medical Decision Making [facility] Narrative: Patient with new onset of paresthesias. Sent in by PCP presumably to rule out stroke. Although more consistent with peripheral neuropathic pain. Likely secondary to known known history of cervical spine DJD. Also with recent infectious symptoms consistent with URI. Differential would include pneumonia. Lab Data Result Diagrams: 09/25/22 19:53 09/25/22 19:39 Labs: Lab Results 09/25/22 09/25/22 09/25/22 Range/Units 19:39 19:39 19:53 WBC 14.8 H (4.8-10.8) X10*3/uL RBC 5.74 H (4.20-5.50) X10*6/uL Hgb 12.9 (12.0-16.0) g/dl Hct 43.2 (37.0-47.0) % MCV 75.3 L (80.0-98.0) fL MCH 22.5 L (27.0-33.0) pg MCHC 29.9 L (31.0-35.0) g/dl RDW 17.6 H (11.0-16.0) % Plt Count 280 (160-400) X10*3/uL MPV 10.6 (9.4-12.3) fL Immature Gran % (Auto) 0.7 H (0.0-0.4) % Neut % (Auto) 77.2 H (45-73) % Lymph % (Auto) 15.3 L (20-40) % [place] % (Auto) 4.6 (2-11) % Eos % (Auto) 1.9 (0-4) % Baso % (Auto) 0.3 (0-2) % Lymph # (Auto) 2.3 (1.2-4.9) X10*3/uL [place] # (Auto) 0.7 (0.1-1.2) X10*3/uL Eos # (Auto) 0.3 (0.0-0.4) X10*3/uL Baso # (Auto) 0.0 (0.0-0.2) X10*3/uL Abs Immat Gran (auto) 0.11 H (0.00-0.03) X10*3/uL Absolute Neuts (auto) 11.5 H (2.0-8.3) x10*3/uL Absolute Nucleated RBC 0.000 (0.0-0.012) X10*3/uL Nucleated RBC % (auto) 0.0 (0.0-0.2) /100WBC Sodium Cancelled 142 Potassium Cancelled 5.1 Chloride Cancelled 106 Carbon Dioxide Cancelled 26 Anion Gap Cancelled 15 BUN Cancelled 14 Creatinine Cancelled 0.67 Estim Creat Clear Calc Cancelled 122.3 Estimated GFR Cancelled > 60 Random Glucose Cancelled 88 Calcium Cancelled 9.6 Magnesium Cancelled 2.0 Total Bilirubin Cancelled 0.3 Direct Bilirubin Cancelled < 0.2 AST Cancelled 20 ALT Cancelled 26 Alkaline Phosphatase Cancelled 133 H Troponin I High Sens (<3.5-17.0) ng/L Total Protein Cancelled 7.5 Albumin Cancelled 4.2 TSH 2.83 (0.32-4.0) uIU/mL Influenza Type A (PCR) (Negative) Influenza Type B (PCR) (Negative) RSV RNA Qual (PCR) (Negative) SARS-CoV-2 RNA (RT-PCR) (Negative) 09/25/22 09/25/22 Range/Units 19:53 21:50 WBC (4.8-10.8) X10*3/uL RBC (4.20-5.50) X10*6/uL Hgb (12.0-16.0) g/dl Hct (37.0-47.0) % MCV (80.0-98.0) fL MCH (27.0-33.0) pg MCHC (31.0-35.0) g/dl RDW (11.0-16.0) % Plt Count (160-400) X10*3/uL MPV (9.4-12.3) fL Immature Gran % (Auto) (0.0-0.4) % Neut % (Auto) (45-73) % Lymph % (Auto) (20-40) % [place] % (Auto) (2-11) % Eos % (Auto) (0-4) % Baso % (Auto) (0-2) % Lymph # (Auto) (1.2-4.9) X10*3/uL [place] # (Auto) (0.1-1.2) X10*3/uL Eos # (Auto) (0.0-0.4) X10*3/uL Baso # (Auto) (0.0-0.2) X10*3/uL Abs Immat Gran (auto) (0.00-0.03) X10*3/uL Absolute Neuts (auto) (2.0-8.3) x10*3/uL Absolute Nucleated RBC (0.0-0.012) X10*3/uL Nucleated RBC % (auto) (0.0-0.2) /100WBC Sodium Potassium Chloride Carbon Dioxide Anion Gap BUN Creatinine Estim Creat Clear Calc Estimated GFR Random Glucose Calcium Magnesium Total Bilirubin Direct Bilirubin AST ALT Alkaline Phosphatase Troponin I High Sens 6.3 (<3.5-17.0) ng/L Total Protein Albumin TSH (0.32-4.0) uIU/mL Influenza Type A (PCR) NEGATIVE (Negative) Influenza Type B (PCR) NEGATIVE (Negative) RSV RNA Qual (PCR) NEGATIVE (Negative) SARS-CoV-2 RNA (RT-PCR) NEGATIVE (Negative) Discharge Plan Discharge Clinical Impression: Arm paresthesia, left, Cervical arthritis Patient Disposition: Home, Self-Care Instructions: Paresthesia (ED), Chronic Neck Pain (DC) Additional Instructions: Your workup in the emergency department showed a normal CT scan without evidence of stroke. Your cardiac workup was negative with normal cardiac enzymes. Your viral swab showed no evidence of influenza, COVID-19, or RSV. Follow-up with your primary care physician for further treatment. Physical therapy for the paresthesias. [facility]. Call [phone] Prescriptions: No Action (DME) lancets [FreeStyle Lancets] 28 gauge misc See Rx Instructions .Route Qty: 100 6RF Rx Instructions: BID (DME) lancets [FreeStyle Lancets] 28 gauge misc See Rx Instructions .Route Qty: 100 3RF Rx Instructions: Use 1 lancet once a day (DME) FreeStyle Julianne 2 Sensor Kit See Rx Instructions .Route Qty: 1 2RF Rx Instructions: As directed (DME) diabetic supplies, miscellan. Misc See Rx Instructions .Route Qty: 1 0RF Rx Instructions: As directed (DME) heating pads Pad See Rx Instructions .Route Qty: 1 0RF Rx Instructions: As directed sennosides [senna] 8.6 mg tablet 17.2 mg PO BEDTIME Qty: 60 3RF Hold Instructions: Doctor's Order (DME) Gel mattress overlay Misc See Rx Instructions .Route Qty: 1 0RF Rx Instructions: As directed (DME) Toilet seat riser See Rx Instructions .Route .MEDSUPPLY Qty: 1 0RF Rx Instructions: As directed (DME) miscellaneous medical supply Misc See Rx Instructions .ROUTE .MEDSUPPLY Qty: 1 0RF Rx Instructions: toilet seat elevator (DME) blood pressure monitor Kit See Rx Instructions .Route Qty: 1 0RF Rx Instructions: Use as needed (DME) pen needle, diabetic [BD Ultra-Fine Mini Pen Needle] 31 gauge x 3/16 needle See Rx Instructions .Route Qty: 100 0RF Rx Instructions: As directed (DME) insulin syringe-needle U-100 [BD Insulin Syringe Ultra-Fine] 0.5 mL 31 gauge x 5/16 syringe See Rx Instructions .Route Qty: 100 3RF Rx Instructions: Use 1 three times a day pyridoxine (vitamin B6) 100 mg tablet 100 mg PO DAILY 90 Days Qty: 90 1RF (DME) diabetic shoes and inserts See Rx Instructions .Route .MEDSUPPLY Qty: 1 1RF Rx Instructions: As directed levothyroxine 112 mcg tablet 112 mcg PO DAILY 90 Days Qty: 90 1RF insulin glargine [Lantus U-100 Insulin] 100 unit/mL solution 10 unit subcut QPM 90 Days Qty: 9 1RF (DME) BD Insulin Syringe (half unit) 0.3 mL 31 gauge x 5/16 syringe See Rx Instructions .Route Qty: 100 3RF Rx Instructions: Use 1 needle once a day hydrocortisone [Anti-Itch (HC)] 1 % cream 1 appl topical TID PRN (Reason: skin irritation) 30 Days Qty: 28.4 0RF metoclopramide HCl [Reglan] 10 mg tablet 10 mg PO QIDACHS Qty: 120 3RF Rx Instructions: Provider aware possible interactions and is monitoring patient duloxetine 60 mg capsule,delayed release(DR/EC) 90 mg PO DAILY 90 Days Qty: 135 1RF (DME) blood-glucose meter [FreeStyle Lite Meter] Kit See Rx Instructions .Route Qty: 1 0RF Rx Instructions: As directed (DME) FreeStyle Lite Strips Strip See Rx Instructions .Route Qty: 100 3RF Rx Instructions: use 1 test strip once a day (DME) walker [facility] See Rx Instructions .Route Qty: 1 0RF Rx Instructions: walker with seat and wheels metformin 500 mg tablet 500 mg PO BID Qty: 180 2RF clotrimazole 1 % cream 1 appl topical BID 28 Days Qty: 30 1RF alcohol swabs [Alcohol Prep Pads] Pads, Medicated 1 pad topical .once a day 90 Days Qty: 100 0RF gabapentin 800 mg tablet 800 mg PO TID 30 Days Qty: 90 0RF amlodipine 10 mg tablet 10 mg PO DAILY Qty: 90 1RF meclizine 25 mg tablet 25 mg PO TID PRN (Reason: dizziness) 30 Days Qty: 90 0RF water for irrigation, sterile Solution 1 irrig irrigation DAILY 30 Days Qty: 500 6RF lorazepam [Ativan] 1 mg tablet 1 mg PO BID PRN (Reason: anxiety) Qty: 14 0RF ondansetron 4 mg tablet,disintegrating 4 mg PO Q8H PRN (Reason: nausea and vomiting) Qty: 30 0RF (DME) Shower Chair [facility] [place] See Rx Instructions .Route Qty: 1 0RF Rx Instructions: As directed furosemide 40 mg tablet 80 mg PO DAILY acetaminophen [Tylenol Arthritis Pain] 650 mg Tablet Extended Release 650 mg PO Q8H PRN (Reason: arthritis pain) ergocalciferol (vitamin D2) 1,250 mcg (50,000 unit) capsule 1,250 mcg PO Q2W insulin lispro [Humalog U-100 Insulin] 100 unit/mL solution See Rx Instructions .ROUTE .COMPLEX Rx Instructions: Patient takes per sliding scale (DME) vaporizers [facility] [place] See Rx Instructions .ROUTE .MEDSUPPLY Qty: 1 Rx Instructions: As directed prochlorperazine maleate 10 mg tablet 10 mg PO Q8H PRN (Reason: Nausea) ferrous sulfate 325 mg (65 mg iron) tablet 325 mg PO DAILY 90 Days Qty: 90 1RF albuterol sulfate [Ventolin HFA] 90 mcg/actuation HFA aerosol inhaler 2 puff inhalation Q6H PRN (Reason: shortness of breath or wheezing) 30 Days Qty: 6.7 1RF lidocaine 4 % cream 1 appl topical BID PRN (Reason: pain) Qty: 30 1RF atorvastatin 10 mg tablet 10 mg PO BEDTIME 90 Days Qty: 90 1RF diclofenac sodium [Arthritis Pain (diclofenac)] 1 % gel 2 g topical QID PRN (Reason: pain) Qty: 100 0RF Rx Instructions: apply to neck clonidine HCl 0.1 mg tablet 0.1 mg PO TID PRN (Reason: Agitation or Anxiety) mirtazapine 30 mg tablet 30 mg PO BEDTIME metoclopramide HCl [Reglan] 5 mg tablet 5 mg PO TIDAC Qty: 90 6RF Hold Instructions: Doctor's Order Creon 24,000-76,000 -120,000 unit capsule,delayed release(DR/EC) 1 cap PO QID 30 Days Qty: 120 6RF Rx Instructions: administer with meals and/or snacks Advair HFA 230-21 mcg/actuation HFA aerosol inhaler 2 puff inhalation Q12H 30 Days Qty: 1 6RF pantoprazole 40 mg tablet,delayed release (DR/EC) 40 mg PO DAILY lorazepam 0.5 mg tablet 0.5 mg PO DAILY PRN peg 3350-electrolytes [Golytely] 236-22.74-6.74 -5.86 gram recon soln 240 ml PO Q10M 1 Days Qty: 4000 0RF Rx Instructions: until fecal effluent is clear; do not exceed a total volume of 2,000 mL hydrocortisone [Proctosol HC] 2.5 % cream with perineal applicator 1 appl [place] BID PRN (Reason: hemorrhoids) Qty: 30 3RF loperamide [Anti-Diarrheal (loperamide)] 2 mg capsule 2 mg PO TID PRN (Reason: loose stool) Qty: 90 0RF ammonium lactate 12 % cream 1 appl topical BID Qty: 385 6RF (DME) blood pressure test kit-wrist Kit See Rx Instructions .ROUTE .MEDSUPPLY Qty: 1 0RF Rx Instructions: to check blood pressure sulfamethoxazole-trimethoprim [Bactrim DS] 800-160 mg tablet 1 tab PO BID 5 Days Qty: 10 0RF cyclobenzaprine 10 mg tablet 10 mg PO TID Qty: 90 0RF
[2022-09-25 22:34] LABS: Influenza A PCR NEGATIVE (Negative); Influenza B PCR NEGATIVE (Negative); Resp Syncy Virus RNA Qual PCR NEGATIVE (Negative); SARS COV2 PCR INHOUSE NEGATIVE (Negative)
[2022-09-25 23:41] VITALS: BP 172/100; PULSE 99; RESP 18; TEMP 36.8; O2SAT 96
== END 2022-09-25 23:58 | disposition home or self-care (01) ==
PROVIDERS: Physician Assistant; Emergency Provider Emergency Medicine; PCP Internal Medicine
DX: R20.2 Paresthesia of skin (principal); M47.812 Spondylosis without myelopathy or radiculopathy, cervical region; R51.9 Headache, unspecified; Z20.822 Contact with and (suspected) exposure to COVID-19; Z79.899 Other long term (current) drug therapy
CPT/HCPCS: 0241U; 36415; 70450; 71046; 80048; 80076; 83735; 84443; 84484; 85025; 93005; 99284

== ENCOUNTER → 2022-10-01 12:50 | Outpatient (BNVA) | payer OTHER, SELFPAY | PROVIDERS: PCP Internal Medicine; Visit Provider Nurse Practitioner | DX: K21.9 Gastro-esophageal reflux disease without esophagitis (principal); R10.9 Unspecified abdominal pain; R19.7 Diarrhea, unspecified; R21 Rash and other nonspecific skin eruption; B37.9 Candidiasis, unspecified; J45.40 Moderate persistent asthma, uncomplicated | CPT/HCPCS: 99212 ==

== ENCOUNTER → 2022-10-06 10:27 | Outpatient (BNVA) | payer OTHER, SELFPAY | PROVIDERS: PCP Internal Medicine; Visit Provider Internal Medicine Pulmonary Disease | DX: J45.40 Moderate persistent asthma, uncomplicated (principal); G47.33 Obstructive sleep apnea (adult) (pediatric); R60.0 Localized edema; R06.01 Orthopnea; Z99.89 Dependence on other enabling machines and devices | CPT/HCPCS: 99212 ==

== ENCOUNTER 2022-10-17 22:11 | Emergency (ER) | payer OTHER, SELFPAY ==
--- NOTE | ~2022-10-17 | XR_ITS ---
EXAMINATION: XR CHEST CLINICAL INFORMATION: Cough COMPARISON: 09/25/2022 TECHNIQUE: Frontal view of the chest was obtained. FINDINGS: Once again elevated right hemidiaphragm with subsegmental atelectasis at the right base. The left lung is grossly clear. Low lung volumes. No infiltrate is seen on the left. There is no effusion. The cardiac silhouette is comparable. XR/XR chest 1V IMPRESSION: No acute finding. Elevated right hemidiaphragm is once again seen with adjacent atelectasis
--- NOTE | ~2022-10-17 | CT_ITS ---
EXAMINATION: CT ABDOMEN AND PELVIS WITH CONTRAST CLINICAL INFORMATION: Left upper quadrant pain. Elevated WBC. COMPARISON: 07/03/2022 TECHNIQUE: Multidetector volumetric images were obtained from the superior aspect of the liver through the pubic symphysis following administration 85 mL of Omnipaque 350 intravenous contrast. Sagittal and coronal reformatted images were obtained on the technologist's workstation. Oral contrast: No This CT examination was performed using dose optimization techniques as appropriate, variously including the following: *Automated exposure control *Adjustment of mA and/or kV according to patient size (this includes techniques or standardized protocols for targeted exams where dose is matched to indication/reason for exam; i.e. extremities or head) *Use of iterative reconstruction technique DLP: 1291 mGy-cm FINDINGS: LUNG BASES: Focal consolidation at the left lung base. Elevated right hemidiaphragm. LIVER, GALLBLADDER, AND BILIARY TREE: The liver is normal in size and shape with decreased attenuation. No focal hepatic lesion or biliary ductal dilatation is present. Cholecystectomy. PANCREAS: Unremarkable. SPLEEN: Unremarkable. ADRENAL GLANDS: Unremarkable. KIDNEYS AND URETERS: The kidneys are normal in size, shape, and attenuation. No hydronephrosis, hydroureter, or calculi seen. No perinephric stranding. BLADDER: Unremarkable. GASTROINTESTINAL TRACT: The small and large bowel are unremarkable. The appendix is unremarkable. ABDOMINAL WALL: No significant hernia is appreciated. LYMPH NODES: Normal. VASCULAR: Normal caliber aorta. Retroaortic left renal vein. PELVIC VISCERA: Uterus not seen. No adnexal mass. OSSEOUS STRUCTURES: No acute or suspicious osseous abnormality. Mild degenerative change throughout the spine. CT/CT abdomen pelvis w IV con IMPRESSION: 1. No acute findings in the abdomen or pelvis. No inflammatory changes. 2. Hepatic steatosis. 3. Left lower lobe consolidation may represent pneumonia. Fleischner guidelines were followed.
[2022-10-17 22:12] VITALS: BP 162/84; PULSE 130; RESP 20; TEMP 35.9; O2SAT 96; BMI 40.2
[2022-10-17 22:29] LABS: MANUAL DIFF FLAG NO
[2022-10-17 22:30] LABS: Basophils Absolute Auto 0.1 X10*3/uL (0.0-0.2); Basophils Percent Auto 0.3 % (0-2); Eosinophils Absolute Auto 0.2 X10*3/uL (0.0-0.4); Eosinophils Percent Auto 0.9 % (0-4); Hematocrit 38.7 % (37.0-47.0); Hemoglobin 11.8 g/dl (12.0-16.0); Imm Gran Abs Auto 0.17 X10*3/uL (0.00-0.03); Imm Gran Pct Auto 0.8 % (0.0-0.4); Lymphocytes Absolute Auto 2.3 X10*3/uL (1.2-4.9); Lymphocytes Percent Auto 10.8 % (20-40); Mean Corpuscular HGB Conc 30.5 g/dl (31.0-35.0); Mean Corpuscular Hemoglobin 22.2 pg (27.0-33.0); Mean Corpuscular Volume 72.9 fL (80.0-98.0); Monocytes Percent Auto 4.5 % (2-11); Neutrophils Absolute Auto 17.8 x10*3/uL (2.0-8.3); Neutrophils Percent Auto 82.7 % (45-73); Platelet Count 373 X10*3/uL (160-400); Red Blood Count 5.31 X10*6/uL (4.20-5.50); Red Cell Distribution Width 17.1 % (11.0-16.0); White Blood Count 21.5 X10*3/uL (4.8-10.8)
[2022-10-17 22:50] LABS: Alanine Aminotransferase 24 U/L (0-31); Albumin Level 4.2 g/dL (3.5-5.0); Alkaline Phosphatase 120 U/L (39-117); Anion Gap 14 (12-20); Aspartate Amino Transferase 18 U/L (5-31); Bilirubin Total 0.5 mg/dL (0.0-1.0); Blood Urea Nitrogen 13 mg/dL (9-16); Calcium 9.2 mg/dL (8.4-10.2); Carbon Dioxide 23 mmol/L (22-29); Chloride 105 mmol/L (96-108); Creatinine Clr Calc Pharmacy 110.5; Estimated Glomerular Filt Rate > 60; Glucose Random 104 mg/dL (60-115); Lipase 35 U/L (8-78); Potassium 3.8 mmol/L (3.3-5.1); Sodium 138 mmol/L (135-145); Total Protein 8.2 g/dL (6.5-8.0)
[2022-10-17 23:11] LABS: Influenza A PCR NEGATIVE (Negative); Influenza B PCR NEGATIVE (Negative); Resp Syncy Virus RNA Qual PCR NEGATIVE (Negative); SARS COV2 PCR INHOUSE NEGATIVE (Negative)
[2022-10-17] MEDS: 0.9 % Sodium Chloride 1,000 ML 999 ML IV (23:22)
--- NOTE | 2022-10-17 23:36 | ED_ITS ---
HPI - Abdominal Pain General Chief Complaint: Upper Respiratory Symptoms Stated Complaint: abdominal pain/ flu symptoms Time Seen by Provider: 10/17/22 22:35 Source: patient Mode of arrival: ambulatory Limitations: no limitations History of Present Illness HPI narrative: Patient is sick with cold symptoms cough for last 1 week since yesterday noticed pain in the left upper abdomen no nausea no vomiting no diarrhea pain radiates to the back never had similar in the past no urinary symptoms no hematuria Related Data Home Medications Medication Instructions Recorded Confirmed vaporizers #1 ea 10/10/20 08/10/22 clonidine HCl 0.1 mg tablet 0.1 mg PO TID PRN Agitation or 09/19/21 08/10/22 Anxiety prochlorperazine maleate 10 mg 10 mg PO Q8H PRN Nausea 04/09/22 08/10/22 tablet mirtazapine 30 mg tablet 30 mg PO BEDTIME 06/23/22 08/10/22 ergocalciferol (vitamin D2) 1,250 1,250 mcg PO Q2W 07/04/22 08/10/22 mcg (50,000 unit) capsule insulin lispro 100 unit/mL See Rx Instructions .Route .COMPLEX 07/04/22 08/10/22 subcutaneous solution (Humalog U-100 Insulin) lorazepam 0.5 mg tablet 0.5 mg PO DAILY PRN 08/13/22 pantoprazole 40 mg tablet,delayed 40 mg PO DAILY 08/13/22 release metoprolol tartrate 50 mg tablet 50 mg PO BID 10/01/22 Previous Rx's Medication Instructions Recorded lancets 28 gauge (FreeStyle #100 ea 05/23/21 Lancets) diabetic supplies, miscellan. #1 ea 12/03/21 flash glucose sensor (FreeStyle #1 ea 12/03/21 Julianne 2 Sensor kit) heating pads #1 ea 01/21/22 sennosides 8.6 mg tablet (senna) 17.2 mg PO BEDTIME #60 tabs 01/26/22 Gel mattress overlay #1 ea 01/28/22 Toilet seat riser #1 ea 03/05/22 miscellaneous medical supply #1 ea 03/10/22 atorvastatin 10 mg tablet 10 mg PO BEDTIME 90 days #90 tabs 03/16/22 albuterol sulfate 90 mcg/actuation 2 puff inhalation Q6H PRN 04/09/22 aerosol inhaler (Ventolin HFA) shortness of breath or wheezing 30 days #6.7 grams ferrous sulfate 325 mg (65 mg 325 mg PO DAILY 90 days #90 tabs 04/09/22 iron) tablet pen needle, diabetic 31 gauge x #100 ea 04/10/22 3/16 (BD Ultra-Fine Mini Pen Needle) diabetic shoes and inserts #1 ea 05/06/22 Shower Chair #1 ea 05/11/22 [id number] 1 cap PO QID 30 days #120 caps 05/12/22 24,000-76,000-120,000 unit capsule,delayed rel (Creon) metoclopramide HCl 5 mg tablet 5 mg PO TIDAC #90 tabs 05/12/22 (Reglan) fluticasone propionate 230 2 puff inhalation Q12H 30 days #1 05/29/22 mcg-salmeterol 21 mcg/actuation ea HFA inhaler (Advair HFA) lidocaine 4 % topical cream 1 appl topical BID PRN pain #30 06/10/22 grams levothyroxine 112 mcg tablet 112 mcg PO DAILY 90 days #90 tabs 06/21/22 insulin syr/ndl U100 half desean 0.3 #100 ea 07/16/22 mL 31 gauge x 5/16 (BD Insulin Syringe Ultra-Fine (half unit)) hydrocortisone 1 % topical cream 1 appl topical TID PRN skin 07/22/22 (Anti-Itch (hydrocortisone)) irritation 30 days #28.4 grams lorazepam 1 mg tablet (Ativan) 1 mg PO BID PRN anxiety #14 tabs 08/03/22 metoclopramide HCl 10 mg tablet 10 mg PO QIDACHS #120 tabs 08/05/22 (Reglan) ondansetron 4 mg disintegrating 4 mg PO Q8H PRN nausea and 08/07/22 tablet vomiting #30 tabs diclofenac sodium 1 % topical gel 2 g topical QID PRN pain #100 grams 08/10/22 (Arthritis Pain (diclofenac)) ammonium lactate 12 % topical cream 1 appl topical BID #385 grams 08/13/22 blood pressure test kit-wrist #1 ea 08/13/22 hydrocortisone 2.5 % topical cream 1 appl TN BID PRN hemorrhoids #30 08/13/22 with perineal applicator grams (Proctosol HC) loperamide 2 mg capsule 2 mg PO TID PRN loose stool #90 08/13/22 (Anti-Diarrheal (loperamide)) caps peg 3350-electrolytes 236 240 ml PO Q10M 1 day #4,000 mL 08/13/22 gram-22.74 gram-6.74 gram-5.86 gram solution (Golytely) cyclobenzaprine 10 mg tablet 10 mg PO TID #90 tabs 08/20/22 duloxetine 60 mg capsule,delayed 90 mg PO DAILY 90 days #135 caps 08/24/22 release blood sugar diagnostic (FreeStyle #100 ea 09/01/22 Lite Strips) blood-glucose meter (FreeStyle #1 ea 09/01/22 Lite Meter kit) walker #1 ea 09/01/22 alcohol swabs (Alcohol Prep Pads) 1 pad topical .once a day 90 days 09/04/22 #100 ea clotrimazole 1 % topical cream 1 appl topical BID 4 weeks #30 09/04/22 grams gabapentin 800 mg tablet 800 mg PO TID 30 days #90 tabs 09/04/22 metformin 500 mg tablet 500 mg PO BID #180 tabs 09/04/22 amlodipine 10 mg tablet 10 mg PO DAILY #90 tabs 09/15/22 meclizine 25 mg tablet 25 mg PO TID PRN dizziness 30 days 09/23/22 #90 tabs water for irrigation, sterile 1 irrig irrigation DAILY 30 days 09/25/22 #500 mL albuterol sulfate 2.5 mg/3 mL 2.5 mg (3 mL) inhalation QID PRN 10/01/22 (0.083 %) solution for nebulization shortness of breath or wheezing #75 mL dicyclomine 10 mg capsule 10 mg PO BID PRN cramping #60 caps 10/01/22 hydroxyzine HCl 50 mg tablet 50 mg PO BEDTIME #30 tabs 10/01/22 nystatin 100,000 unit/gram topical 1 appl topical TID #30 grams 10/01/22 ointment sumatriptan succinate 25 mg tablet 25 mg PO ONCE PRN migraine 10/02/22 headache #12 tabs torsemide 20 mg tablet 20 mg PO BID 30 days #60 tabs 10/06/22 acetaminophen 650 mg 650 mg PO Q8H PRN arthritis pain 10/12/22 tablet,extended release (Tylenol #90 tabs Arthritis Pain) guaifenesin 600 mg tablet, 600 mg PO Q12H PRN congestion 10 10/12/22 extended release 12 hr (Mucinex) days #20 tabs benzonatate 100 mg capsule 100 mg PO TID PRN cough 7 days #21 10/13/22 caps guaifenesin 100 mg/5 mL oral 200 mg (10 mL) PO Q4H PRN cough 5 10/17/22 liquid (Cough Syrup) days #300 mL insulin glargine 100 unit/mL 10 unit (0.1 mL) subcut QPM 90 10/17/22 subcutaneous solution (Lantus days #9 mL U-100 Insulin) insulin syringe-needle U-100 0.5 #100 ea 10/17/22 mL 31 gauge x 5/16 (BD Insulin Syringe Ultra-Fine) azithromycin 250 mg tablet 250 mg PO DAILY 4 days #4 tabs 10/18/22 (Zithromax Z-Naga) benzonatate 200 mg capsule 200 mg PO TID PRN cough #30 caps 10/18/22 cefuroxime axetil 500 mg tablet 500 mg PO BID #20 tabs 10/18/22 tramadol 50 mg tablet 50 mg PO Q6H PRN pain #20 tabs 10/18/22 Allergies Allergy/AdvReac Type Severity Reaction Status Date / Time Penicillins Allergy Severe swelling Verified 10/06/22 10:31 adhesive tape [ADHESIVE TAPE] Allergy Intermediate RASH Verified 10/06/22 10:31 amoxicillin [AMOXICILLIN] Allergy Intermediate RASH,SWELLI Verified 10/06/22 12:24 NG latex Allergy Intermediate Rash Verified 10/06/22 10:31 Motrin Allergy Intermediate hypertensio Verified 10/06/22 10:31 n Review of Systems Review of Systems Yes all other systems are reviewed and are negative [facility] Past Medical History Medical History Arthropathy of facet joint Asthma Bilateral shoulder pain Chronic idiopathic constipation Chronic pain (Unknown) Chronic pain syndrome Degeneration, intervertebral disc, cervical Diabetes mellitus Disc degeneration, lumbar Fibromyalgia LUDY (generalized anxiety disorder) Gastroparesis Goiter Hyperlipidemia LDL goal <70 Hypothyroidism Incontinence Insomnia Left knee pain Lumbar pain Moderately severe recurrent major depression Morbid (severe) obesity due to excess calories Multiple air fluid levels of small intestine determined by X-ray Renal calculi Sleep apnea Small bowel motility disorder Spondylosis of cervical spine at multiple levels without myelopathy Spondylosis of cervical spine at multiple levels without myelopathy Spondylosis of lumbar region without myelopathy or radiculopathy Surgical History Delivery by section History of cholecystectomy History of esophagogastroduodenoscopy (EGD) History of hernia surgery History of hysterectomy History of knee replacement procedure of right knee Hx of colonoscopy Family History Family History Father Past heart attack Anxiety Mother MOF (multiple organ failure) Brother HIV (human immunodeficiency virus infection) Sister Ovarian cancer Lupus Bone cancer Uterine cancer Tumor Daughter Guillain-Kent Sister Lupus History of open heart surgery Family/Other Depression FH: mental illness Maternal Aunt Breast cancer Maternal Aunt Tumor Social History Social History Household Members: None Household Members Other:: Housing: Apartment Are you a primary healthcare business analyst to a significant other at home: No Do you presently have visiting nurse or other home services: Yes ([employer]) Alcohol intake: never Patient Tobacco Use Status: Never used Tobacco Smoked in Last 30 Days: No e-Cigarette/Vaping Use: Never Used Second Hand Smoke Exposure: Yes Use of substances other than those prescribed or required for medical reasons: No Advance Directives: Yes Advance Directives on File: Yes Advance Directives Date on File: 12/08/21 Patient : No service: No Current occupational status: unemployed and disabled Cognitive needs: No Hearing needs: No Vision needs: No Physical Exam ED Vital Signs: Vital Signs - 24 hr 10/17/22 22:12 10/18/22 01:13 10/18/22 01:56 Temperature 96.6 F L 99.6 F Pulse Rate 130 H 100 Respiratory Rate 20 20 Blood Pressure 162/84 H 121/55 L Pulse Oximetry 96 94 96 Oxygen Delivery Method Room Air Nasal Cannula Nasal Cannula Oxygen Flow Rate 2 BMI result Body Mass Index 40.2 Appearance: Alert. Oriented X3. In moderate distress. Eyes: No pallor/ icterus ENT: Pharynx normal. Oral Mucosa moist Neck: Normal inspection. Neck supple. CVS: Normal heart rate and rhythm. Pulses normal. Respiratory: No respiratory distress. Equal air entry bilateral, no wheezing/rales/rhonchi Abdomen: Soft, tenderness left upper abdomen no rebound tenderness guarding Bowel sounds are present, no mass palpable, left CVA tenderness Skin: Skin warm and dry. Normal skin color. Normal skin turgor. Extremities: No lower extremity edema. No calf tenderness Neuro: Oriented X 3. No motor deficit. Medical Decision Making Medical Decision Making [facility] [place] Narrative: Patient with left upper quadrant significant pain etiology not very clear to the lab stool or pancreatitis/kidney stone/UTI/diverticulitis patient leukocytosis will give IV fluids check lactic acid blood culture checked for the COVID/influenza Workup showed left lower lobe pneumonia likely pleurisy as the cause of the pain CT scan of the abdomen otherwise negative patient received IV antibiotics discharge patient home on Ceftin and Zithromax Differential Diagnosis Kidney stone/pyelonephritis/pneumonia/pleurisy Lab Data [facility] [place] Lab Attestation statement: I reviewed the patient's lab results. 10/17/22 22:20 10/17/22 22:20 Labs: Lab Results 10/17/22 10/17/22 10/17/22 Range/Units 22:20 22:20 22:20 WBC 21.5 H (4.8-10.8) X10*3/uL RBC 5.31 (4.20-5.50) X10*6/uL Hgb 11.8 L (12.0-16.0) g/dl Hct 38.7 (37.0-47.0) % MCV 72.9 L (80.0-98.0) fL MCH 22.2 L (27.0-33.0) pg MCHC 30.5 L (31.0-35.0) g/dl RDW 17.1 H (11.0-16.0) % Plt Count 373 D (160-400) X10*3/uL MPV 10.0 (9.4-12.3) fL Immature Gran % (Auto) 0.8 H (0.0-0.4) % Neut % (Auto) 82.7 H (45-73) % Lymph % (Auto) 10.8 L (20-40) % [place] % (Auto) 4.5 (2-11) % Eos % (Auto) 0.9 (0-4) % Baso % (Auto) 0.3 (0-2) % Lymph # (Auto) 2.3 (1.2-4.9) X10*3/uL [place] # (Auto) 1.0 (0.1-1.2) X10*3/uL Eos # (Auto) 0.2 (0.0-0.4) X10*3/uL Baso # (Auto) 0.1 (0.0-0.2) X10*3/uL Abs Immat Gran (auto) 0.17 H (0.00-0.03) X10*3/uL Absolute Neuts (auto) 17.8 H (2.0-8.3) x10*3/uL Absolute Nucleated RBC 0.000 (0.0-0.012) X10*3/uL Nucleated RBC % (auto) 0.0 (0.0-0.2) /100WBC Sodium 138 (135-145) mmol/L Potassium 3.8 D (3.3-5.1) mmol/L Chloride 105 (96-108) mmol/L Carbon Dioxide 23 (22-29) mmol/L Anion Gap 14 (12-20) BUN 13 (9-16) mg/dL Creatinine 0.75 (0.5-1.4) mg/dL Estim Creat Clear Calc 110.5 Estimated GFR > 60 Random Glucose 104 (60-115) mg/dL Lactic Acid (0.5-2.0) mmol/L Calcium 9.2 (8.4-10.2) mg/dL Total Bilirubin 0.5 (0.0-1.0) mg/dL AST 18 (5-31) U/L ALT 24 (0-31) U/L Alkaline Phosphatase 120 H (39-117) U/L Total Protein 8.2 H (6.5-8.0) g/dL Albumin 4.2 (3.5-5.0) g/dL Lipase 35 (8-78) U/L Urine Color Urine Appearance Urine pH (5.0-9.0) Ur Specific [place] (1.005-1.025) Urine Protein (Neg-Trace) mg/dL Urine Glucose (UA) (Negative) mg/dL Urine Ketones (Negative) mg/dL Urine Blood (Negative) Urine Nitrite (Negative) Ur Leukocyte Esterase (Negative) Influenza Type A (PCR) NEGATIVE (Negative) Influenza Type B (PCR) NEGATIVE (Negative) RSV RNA Qual (PCR) NEGATIVE (Negative) SARS-CoV-2 RNA (RT-PCR) NEGATIVE (Negative) 10/17/22 10/18/22 Range/Units 23:17 01:33 WBC (4.8-10.8) X10*3/uL RBC (4.20-5.50) X10*6/uL Hgb (12.0-16.0) g/dl Hct (37.0-47.0) % MCV (80.0-98.0) fL MCH (27.0-33.0) pg MCHC (31.0-35.0) g/dl RDW (11.0-16.0) % Plt Count (160-400) X10*3/uL MPV (9.4-12.3) fL Immature Gran % (Auto) (0.0-0.4) % Neut % (Auto) (45-73) % Lymph % (Auto) (20-40) % [place] % (Auto) (2-11) % Eos % (Auto) (0-4) % Baso % (Auto) (0-2) % Lymph # (Auto) (1.2-4.9) X10*3/uL [place] # (Auto) (0.1-1.2) X10*3/uL Eos # (Auto) (0.0-0.4) X10*3/uL Baso # (Auto) (0.0-0.2) X10*3/uL Abs Immat Gran (auto) (0.00-0.03) X10*3/uL Absolute Neuts (auto) (2.0-8.3) x10*3/uL Absolute Nucleated RBC (0.0-0.012) X10*3/uL Nucleated RBC % (auto) (0.0-0.2) /100WBC Sodium (135-145) mmol/L Potassium (3.3-5.1) mmol/L Chloride (96-108) mmol/L Carbon Dioxide (22-29) mmol/L Anion Gap (12-20) BUN (9-16) mg/dL Creatinine (0.5-1.4) mg/dL Estim Creat Clear Calc Estimated GFR Random Glucose (60-115) mg/dL Lactic Acid 1.4 (0.5-2.0) mmol/L Calcium (8.4-10.2) mg/dL Total Bilirubin (0.0-1.0) mg/dL AST (5-31) U/L ALT (0-31) U/L Alkaline Phosphatase (39-117) U/L Total Protein (6.5-8.0) g/dL Albumin (3.5-5.0) g/dL Lipase (8-78) U/L Urine Color Yellow Urine Appearance Clear Urine pH 5.0 (5.0-9.0) Ur Specific [place] >= 1.030 H (1.005-1.025) Urine Protein Negative (Neg-Trace) mg/dL Urine Glucose (UA) Negative (Negative) mg/dL Urine Ketones 15 (Negative) mg/dL Urine Blood Negative (Negative) Urine Nitrite Negative (Negative) Ur Leukocyte Esterase Negative (Negative) Influenza Type A (PCR) (Negative) Influenza Type B (PCR) (Negative) RSV RNA Qual (PCR) (Negative) SARS-CoV-2 RNA (RT-PCR) (Negative) Medications Administered Discontinued Medications Generic Name Dose Route Start Last Admin Trade Name Freq PRN Reason Stop Dose Admin Guaifenesin/Codeine Phosphate 10 ml 10/18/22 02:15 10/18/22 02:36 Guaifen/Codeine Sf 200/20/10ml 10 Ml Liquid PO 10/18/22 02:16 10 ml ONCE ONE Administration Hydromorphone HCl 1 mg 10/18/22 01:27 10/18/22 01:50 Hydromorphone Hcl 1 Mg/Ml Syringe IVPUSH 10/18/22 01:28 1 mg ONCE ONE Administration Protocol Sodium Chloride 1,000 mls @ 999 mls/hr 10/17/22 22:59 10/18/22 01:32 Ns IV 10/17/22 23:59 Infused .Q1H1M ONE Infusion Ceftriaxone Sodium 1 gm/ 50 mls @ 100 mls/hr 10/18/22 01:27 10/18/22 03:34 Sodium Chloride IV 10/18/22 01:56 Infused ONCE ONE Infusion Azithromycin 500 mg/ Sodium 250 mls @ 125 mls/hr 10/18/22 01:27 10/18/22 02:16 Chloride IV 10/18/22 03:26 125 mls/hr ONCE ONE Administration Iohexol 85 ml 10/18/22 00:50 10/18/22 00:51 Iohexol 350 Mg/Ml 100 Ml Infus..Btl IV 10/18/22 00:51 85 ml ONCE ONE Administration Ketorolac Tromethamine 30 mg 10/18/22 02:15 10/18/22 02:36 Ketorolac Tromethamine 30 Mg/Ml Vial IVPUSH 10/18/22 02:16 30 mg ONCE ONE Administration Morphine Sulfate 4 mg 10/17/22 23:34 10/18/22 00:00 Morphine Sulfate 4 Mg/Ml Cartridge IVPUSH 10/17/22 23:35 4 mg ONCE ONE Administration Protocol Ondansetron HCl 4 mg 10/17/22 23:34 10/18/22 00:00 Ondansetron Hcl 4 Mg/2 Ml Vial IVPUSH 10/17/22 23:35 4 mg ONCE ONE Administration Discharge Plan Discharge Clinical Impression: Pneumonia, Pleurisy Patient Disposition: Home, Self-Care Instructions: Pleurisy (ED), Community Acquired Pneumonia (ED) Additional Instructions: Take antibiotic as prescribed Cough drops as prescribed Take your pain medication Follow with PCP if not better Prescriptions: New azithromycin [Zithromax Z-Naga] 250 mg tablet 250 mg PO DAILY 4 Days Qty: 4 0RF Rx Instructions: start on day 2 of therapy benzonatate 200 mg capsule 200 mg PO TID PRN (Reason: cough) Qty: 30 0RF tramadol 50 mg tablet 50 mg PO Q6H PRN (Reason: pain) Qty: 20 0RF cefuroxime axetil 500 mg tablet 500 mg PO BID Qty: 20 0RF No Action (DME) lancets [FreeStyle Lancets] 28 gauge misc See Rx Instructions .Route Qty: 100 6RF Rx Instructions: BID (DME) FreeStyle Julianne 2 Sensor Kit See Rx Instructions .Route Qty: 1 2RF Rx Instructions: As directed (DME) diabetic supplies, miscellan. Misc See Rx Instructions .Route Qty: 1 0RF Rx Instructions: As directed (DME) heating pads Pad See Rx Instructions .Route Qty: 1 0RF Rx Instructions: As directed sennosides [senna] 8.6 mg tablet 17.2 mg PO BEDTIME Qty: 60 3RF Hold Instructions: Doctor's Order (DME) Gel mattress overlay [facility] [place] See Rx Instructions .Route Qty: 1 0RF Rx Instructions: As directed (DME) Toilet seat riser See Rx Instructions .Route .MEDSUPPLY Qty: 1 0RF Rx Instructions: As directed (DME) miscellaneous medical supply [facility] [place] See Rx Instructions .ROUTE .MEDSUPPLY Qty: 1 0RF Rx Instructions: toilet seat elevator (DME) pen needle, diabetic [BD Ultra-Fine Mini Pen Needle] 31 gauge x 3/16 needle See Rx Instructions .Route Qty: 100 0RF Rx Instructions: As directed (DME) diabetic shoes and inserts See Rx Instructions .Route .MEDSUPPLY Qty: 1 1RF Rx Instructions: As directed levothyroxine 112 mcg tablet 112 mcg PO DAILY 90 Days Qty: 90 1RF (DME) BD Insulin Syringe (half unit) 0.3 mL 31 gauge x 5/16 syringe See Rx Instructions .Route Qty: 100 3RF Rx Instructions: Use 1 needle once a day hydrocortisone [Anti-Itch (HC)] 1 % cream 1 appl topical TID PRN (Reason: skin irritation) 30 Days Qty: 28.4 0RF metoclopramide HCl [Reglan] 10 mg tablet 10 mg PO QIDACHS Qty: 120 3RF Rx Instructions: Provider aware possible interactions and is monitoring patient duloxetine 60 mg capsule,delayed release(DR/EC) 90 mg PO DAILY 90 Days Qty: 135 1RF (DME) blood-glucose meter [FreeStyle Lite Meter] Kit See Rx Instructions .Route Qty: 1 0RF Rx Instructions: As directed (DME) FreeStyle Lite Strips Strip See Rx Instructions .Route Qty: 100 3RF Rx Instructions: use 1 test strip once a day (DME) walker [facility] [place] See Rx Instructions .Route Qty: 1 0RF Rx Instructions: walker with seat and wheels metformin 500 mg tablet 500 mg PO BID Qty: 180 2RF clotrimazole 1 % cream 1 appl topical BID 28 Days Qty: 30 1RF alcohol swabs [Alcohol Prep Pads] Pads, Medicated 1 pad topical .once a day 90 Days Qty: 100 0RF gabapentin 800 mg tablet 800 mg PO TID 30 Days Qty: 90 0RF amlodipine 10 mg tablet 10 mg PO DAILY Qty: 90 1RF meclizine 25 mg tablet 25 mg PO TID PRN (Reason: dizziness) 30 Days Qty: 90 0RF water for irrigation, sterile Solution 1 irrig irrigation DAILY 30 Days Qty: 500 6RF sumatriptan succinate 25 mg tablet 25 mg PO ONCE PRN (Reason: migraine headache) Qty: 12 1RF guaifenesin [Mucinex] 600 mg tablet extended release 12hr 600 mg PO Q12H PRN (Reason: congestion) 10 Days Qty: 20 0RF acetaminophen [Tylenol Arthritis Pain] 650 mg tablet extended release 650 mg PO Q8H PRN (Reason: arthritis pain) Qty: 90 3RF benzonatate 100 mg capsule 100 mg PO TID PRN (Reason: cough) 7 Days Qty: 21 0RF insulin glargine [Lantus U-100 Insulin] 100 unit/mL solution 10 unit subcut QPM 90 Days Qty: 9 1RF guaifenesin [Cough Syrup] 100 mg/5 mL liquid 200 mg PO Q4H PRN (Reason: cough) 5 Days Qty: 300 0RF (DME) insulin syringe-needle U-100 [BD Insulin Syringe Ultra-Fine] 0.5 mL 31 gauge x 5/16 syringe See Rx Instructions .Route Qty: 100 3RF Rx Instructions: Use 1 three times a day lorazepam [Ativan] 1 mg tablet 1 mg PO BID PRN (Reason: anxiety) Qty: 14 0RF ondansetron 4 mg tablet,disintegrating 4 mg PO Q8H PRN (Reason: nausea and vomiting) Qty: 30 0RF (DME) Shower Chair Misc See Rx Instructions .Route Qty: 1 0RF Rx Instructions: As directed ergocalciferol (vitamin D2) 1,250 mcg (50,000 unit) capsule 1,250 mcg PO Q2W insulin lispro [Humalog U-100 Insulin] 100 unit/mL solution See Rx Instructions .ROUTE .COMPLEX Rx Instructions: Patient takes per sliding scale (DME) vaporizers Misc See Rx Instructions .ROUTE .MEDSUPPLY Qty: 1 Rx Instructions: As directed prochlorperazine maleate 10 mg tablet 10 mg PO Q8H PRN (Reason: Nausea) ferrous sulfate 325 mg (65 mg iron) tablet 325 mg PO DAILY 90 Days Qty: 90 1RF albuterol sulfate [Ventolin HFA] 90 mcg/actuation HFA aerosol inhaler 2 puff inhalation Q6H PRN (Reason: shortness of breath or wheezing) 30 Days Qty: 6.7 1RF lidocaine 4 % cream 1 appl topical BID PRN (Reason: pain) Qty: 30 1RF atorvastatin 10 mg tablet 10 mg PO BEDTIME 90 Days Qty: 90 1RF diclofenac sodium [Arthritis Pain (diclofenac)] 1 % gel 2 g topical QID PRN (Reason: pain) Qty: 100 0RF Rx Instructions: apply to neck clonidine HCl 0.1 mg tablet 0.1 mg PO TID PRN (Reason: Agitation or Anxiety) mirtazapine 30 mg tablet 30 mg PO BEDTIME metoprolol tartrate 50 mg tablet 50 mg PO BID nystatin 100,000 unit/gram ointment 1 appl topical TID Qty: 30 3RF hydroxyzine HCl 50 mg tablet 50 mg PO BEDTIME Qty: 30 3RF dicyclomine 10 mg capsule 10 mg PO BID PRN (Reason: cramping) Qty: 60 3RF albuterol sulfate 2.5 mg /3 mL (0.083 %) solution for nebulization 2.5 mg inhalation QID PRN (Reason: shortness of breath or wheezing) Qty: 75 0RF torsemide 20 mg tablet 20 mg PO BID 30 Days Qty: 60 6RF metoclopramide HCl [Reglan] 5 mg tablet 5 mg PO TIDAC Qty: 90 6RF Hold Instructions: Doctor's Order Creon 24,000-76,000 -120,000 unit capsule,delayed release(DR/EC) 1 cap PO QID 30 Days Qty: 120 6RF Rx Instructions: administer with meals and/or snacks Advair HFA 230-21 mcg/actuation HFA aerosol inhaler 2 puff inhalation Q12H 30 Days Qty: 1 6RF pantoprazole 40 mg tablet,delayed release (DR/EC) 40 mg PO DAILY lorazepam 0.5 mg tablet 0.5 mg PO DAILY PRN peg 3350-electrolytes [Golytely] 236-22.74-6.74 -5.86 gram recon soln 240 ml PO Q10M 1 Days Qty: 4000 0RF Rx Instructions: until fecal effluent is clear; do not exceed a total volume of 2,000 mL hydrocortisone [Proctosol HC] 2.5 % cream with perineal applicator 1 appl TN BID PRN (Reason: hemorrhoids) Qty: 30 3RF loperamide [Anti-Diarrheal (loperamide)] 2 mg capsule 2 mg PO TID PRN (Reason: loose stool) Qty: 90 0RF ammonium lactate 12 % cream 1 appl topical BID Qty: 385 6RF (DME) blood pressure test kit-wrist Kit See Rx Instructions .ROUTE .MEDSUPPLY Qty: 1 0RF Rx Instructions: to check blood pressure cyclobenzaprine 10 mg tablet 10 mg PO TID Qty: 90 0RF Interventions: ED Discharge Assessment Last Done: 10/18/22 05:07 Discharge Date/Time: 10/18/22 05:08
[2022-10-17 23:39] LABS: Lactic Acid 1.4 mmol/L (0.5-2.0)
[2022-10-18] MEDS: Morphine Sulfate 4 MG/ML CARTRIDGE IVPUSH
[2022-10-18] MEDS: ondansetron HCL 4 MG/2 ML VIAL IVPUSH
--- NOTE | 2022-10-18 00:18 | PC.NURSE ---
Pt. lying in bed, reporting pain at 10/10 in her abdomen. Pt. was medicated with morphine and zofran per DEC. Pt. needing to urinate. Obtained commode for room and helped pt. onto commode. At this time patient is awaiting their CT scan.
[2022-10-18] MEDS: iohexoL 350 MG/ML 100 ML INFUS..BTL 85 ML IV (00:51)
[2022-10-18 01:13] VITALS: BP 121/55; PULSE 100; RESP 20; TEMP 37.6; O2SAT 94
[2022-10-18 01:47] LABS: Appearance Urine Clear; Color Urine Yellow; Glucose Urine UA Negative (Negative); Leukocyte Esterase Urine Negative (Negative); Nitrite Urine Negative (Negative); Specific Gravity - Urine >= 1.030 (1.005-1.025); Urine Blood Negative (Negative); Urine Ketones 15 mg/dL (Negative); Urine Protein Negative (Neg-Trace)
[2022-10-18] MEDS: cefTRIAXone sodium 1 GM in 0.9 % Sodium Chloride 50 ML IV (01:49)
[2022-10-18] MEDS: HYDROmorphone HCl 1 MG/ML SYRINGE IVPUSH (01:50)
[2022-10-18 01:56] VITALS: O2SAT 96
[2022-10-18] MEDS: Azithromycin 500 MG in 0.9 % Sodium Chloride 250 ML 125 MG IV (02:16)
--- NOTE | 2022-10-18 02:24 | PC.NURSE ---
Pt. lying in bed, reporting pain at 10/10 in her abdomen as well as her head. Abx were hung per DEC and pain medication administered.
[2022-10-18] MEDS: guaiFEN/Codeine SF 200/20/10ML 10 ML LIQUID PO (02:36)
[2022-10-18] MEDS: Ketorolac Tromethamine 30 MG/ML VIAL IVPUSH (02:36)
--- NOTE | 2022-10-18 03:26 | PC.NURSE ---
Pt. sleeping, respirations even and unlabored. No distress noted. Will continue to monitor.
== END 2022-10-18 05:08 | disposition home or self-care (01) ==
PROVIDERS: Emergency Provider Internal Medicine; PCP Internal Medicine
DX: R09.1 Pleurisy (principal); J18.8 Other pneumonia, unspecified organism; R10.12 Left upper quadrant pain; Z20.822 Contact with and (suspected) exposure to COVID-19; Z20.828 Contact with and (suspected) exposure to other viral communicable diseases; E11.9 Type 2 diabetes mellitus without complications; E78.5 Hyperlipidemia, unspecified; E66.9 Obesity, unspecified; Z68.41 Body mass index [BMI] 40.0-44.9, adult; Z79.4 Long term (current) use of insulin; Z79.899 Other long term (current) drug therapy; Z79.02 Long term (current) use of antithrombotics/antiplatelets
CPT/HCPCS: 0241U; 36415; 71045; 74177; 80053; 81003; 83605; 83690; 85025; 87040; 96361; 96365; 96375; 99284; J0456; J0696; J1170; J1885; J2270; J2405; Q9967

== ENCOUNTER → 2022-10-20 14:20 | Outpatient (BNVA) | payer OTHER, SELFPAY | PROVIDERS: PCP Internal Medicine; Visit Provider Internal Medicine Endocrinology, Diabetes & Metabolism | DX: E03.9 Hypothyroidism, unspecified (principal); E11.9 Type 2 diabetes mellitus without complications | CPT/HCPCS: 82947; 99202 ==

== ENCOUNTER 2022-10-20 18:47 | Emergency (ER) | payer OTHER, SELFPAY ==
--- NOTE | ~2022-10-20 | XR_ITS ---
EXAMINATION: XR CHEST CLINICAL INFORMATION: Left lower lobe pneumonia recently COMPARISON: Chest x-ray on 10/17/2022 TECHNIQUE: Frontal view of the chest was obtained. FINDINGS: No significant abnormality is noted involving the heart, lungs, mediastinum, bony thorax or soft tissues. Chronic elevation of the right hemidiaphragm. XR/XR chest 1V IMPRESSION: Unremarkable examination. Small area of consolidation at the medial left base seen on the recent CT of the abdomen and pelvis is not well evaluated on this exam.
--- NOTE | 2022-10-20 18:58 | ECG_ITS ---
Test Reason : CHEST PAIN Blood Pressure : / mmHG Vent. Rate : 063 BPM Atrial Rate : 063 BPM P-R Int : 152 ms QRS Dur : 076 ms QT Int : 434 ms P-R-T Axes : -02 -01 003 degrees QTc Int : 444 ms Normal sinus rhythm Normal ECG When compared with ECG of 25-SEP-2022 19:09, No significant change was found Referred By: Generic ED Physician Electronically Signed By:MARISA SCHAFER MD
[2022-10-20 19:22] VITALS: BP 136/71; PULSE 79; RESP 18; TEMP 36.9; O2SAT 95; BMI 41.8
--- NOTE | 2022-10-20 19:22 | ED_ITS ---
HPI - General Adult General Chief complaint: Upper Respiratory Symptoms <KAYLA Wharton - Last Filed: 11/02/22 09:44> Stated complaint: chest pain/ sob/ headache <KAYLA Wharton - Last Filed: 11/02/22 09:44> Time Seen by Provider: 10/20/22 23:17 <KAYLA Wharton - Last Filed: 11/02/22 09:44> Source: patient <Saul Chino MD - Last Filed: 10/21/22 02:31> Mode of arrival: ambulatory <Saul Chino MD - Last Filed: 10/21/22 02:31> Limitations: no limitations <Saul Chino MD - Last Filed: 10/21/22 02:31> History of Present Illness HPI narrative: Patient with acute bronchitis and left lower lobe pneumonia was seen here on 10/18 on Ceftin and Zithromax comes here as she is still coughing and having headache no fever no chills asking for pain medication <Saul Chino MD - Last Filed: 10/21/22 02:31> Related Data Home medications: Home Medications Medication Instructions Recorded Confirmed vaporizers #1 ea 10/10/20 08/10/22 clonidine HCl 0.1 mg tablet 0.1 mg PO TID PRN Agitation or 09/19/21 10/20/22 Anxiety prochlorperazine maleate 10 mg 10 mg PO Q8H PRN Nausea 04/09/22 08/10/22 tablet mirtazapine 30 mg tablet 30 mg PO BEDTIME 06/23/22 08/10/22 ergocalciferol (vitamin D2) 1,250 1,250 mcg PO Q2W 07/04/22 08/10/22 mcg (50,000 unit) capsule lorazepam 0.5 mg tablet 0.5 mg PO DAILY PRN 08/13/22 10/20/22 pantoprazole 40 mg tablet,delayed 40 mg PO DAILY 08/13/22 release metoprolol tartrate 50 mg tablet 50 mg PO BID 10/01/22 10/20/22 insulin syringe-needle U-100 0.3 #10 ea 10/20/22 10/20/22 mL 31 gauge x 5/16 (BD Insulin Syringe Ultra-Fine) Previous Rx's Medication Instructions Recorded lancets 28 gauge (FreeStyle #100 ea 05/23/21 Lancets) diabetic supplies, miscellan. #1 ea 12/03/21 flash glucose sensor (FreeStyle #1 ea 12/03/21 Julianne 2 Sensor kit) heating pads #1 ea 01/21/22 sennosides 8.6 mg tablet (senna) 17.2 mg PO BEDTIME #60 tabs 01/26/22 Gel mattress overlay #1 ea 01/28/22 Toilet seat riser #1 ea 03/05/22 miscellaneous medical supply #1 ea 03/10/22 atorvastatin 10 mg tablet 10 mg PO BEDTIME 90 days #90 tabs 03/16/22 albuterol sulfate 90 mcg/actuation 2 puff inhalation Q6H PRN 04/09/22 aerosol inhaler (Ventolin HFA) shortness of breath or wheezing 30 days #6.7 grams ferrous sulfate 325 mg (65 mg 325 mg PO DAILY 90 days #90 tabs 04/09/22 iron) tablet pen needle, diabetic 31 gauge x #100 ea 04/10/22 3/16 (BD Ultra-Fine Mini Pen Needle) diabetic shoes and inserts #1 ea 05/06/22 Shower Chair #1 ea 05/11/22 [id number] 1 cap PO QID 30 days #120 caps 05/12/22 24,000-76,000-120,000 unit capsule,delayed rel (Creon) metoclopramide HCl 5 mg tablet 5 mg PO TIDAC #90 tabs 05/12/22 (Reglan) fluticasone propionate 230 2 puff inhalation Q12H 30 days #1 05/29/22 mcg-salmeterol 21 mcg/actuation ea HFA inhaler (Advair HFA) lidocaine 4 % topical cream 1 appl topical BID PRN pain #30 06/10/22 grams levothyroxine 112 mcg tablet 112 mcg PO DAILY 90 days #90 tabs 06/21/22 insulin syr/ndl U100 half desean 0.3 #100 ea 07/16/22 mL 31 gauge x 5/16 (BD Insulin Syringe Ultra-Fine (half unit)) hydrocortisone 1 % topical cream 1 appl topical TID PRN skin 07/22/22 (Anti-Itch (hydrocortisone)) irritation 30 days #28.4 grams lorazepam 1 mg tablet (Ativan) 1 mg PO BID PRN anxiety #14 tabs 08/03/22 metoclopramide HCl 10 mg tablet 10 mg PO QIDACHS #120 tabs 08/05/22 (Reglan) ondansetron 4 mg disintegrating 4 mg PO Q8H PRN nausea and 08/07/22 tablet vomiting #30 tabs diclofenac sodium 1 % topical gel 2 g topical QID PRN pain #100 grams 08/10/22 (Arthritis Pain (diclofenac)) ammonium lactate 12 % topical cream 1 appl topical BID #385 grams 08/13/22 blood pressure test kit-wrist #1 ea 08/13/22 hydrocortisone 2.5 % topical cream 1 appl RI BID PRN hemorrhoids #30 08/13/22 with perineal applicator grams (Proctosol HC) loperamide 2 mg capsule 2 mg PO TID PRN loose stool #90 08/13/22 (Anti-Diarrheal (loperamide)) caps peg 3350-electrolytes 236 240 ml PO Q10M 1 day #4,000 mL 08/13/22 gram-22.74 gram-6.74 gram-5.86 gram solution (Golytely) cyclobenzaprine 10 mg tablet 10 mg PO TID #90 tabs 08/20/22 duloxetine 60 mg capsule,delayed 90 mg PO DAILY 90 days #135 caps 08/24/22 release blood sugar diagnostic (FreeStyle #100 ea 09/01/22 Lite Strips) blood-glucose meter (FreeStyle #1 ea 09/01/22 Lite Meter kit) walker #1 ea 09/01/22 alcohol swabs (Alcohol Prep Pads) 1 pad topical .once a day 90 days 09/04/22 #100 ea clotrimazole 1 % topical cream 1 appl topical BID 4 weeks #30 09/04/22 grams gabapentin 800 mg tablet 800 mg PO TID 30 days #90 tabs 09/04/22 metformin 500 mg tablet 500 mg PO BID #180 tabs 09/04/22 amlodipine 10 mg tablet 10 mg PO DAILY #90 tabs 09/15/22 meclizine 25 mg tablet 25 mg PO TID PRN dizziness 30 days 09/23/22 #90 tabs water for irrigation, sterile 1 irrig irrigation DAILY 30 days 12/23/22 #500 mL albuterol sulfate 2.5 mg/3 mL 2.5 mg (3 mL) inhalation QID PRN 10/01/22 (0.083 %) solution for nebulization shortness of breath or wheezing #75 mL dicyclomine 10 mg capsule 10 mg PO BID PRN cramping #60 caps 10/01/22 hydroxyzine HCl 50 mg tablet 50 mg PO BEDTIME #30 tabs 10/01/22 nystatin 100,000 unit/gram topical 1 appl topical TID #30 grams 10/01/22 ointment sumatriptan succinate 25 mg tablet 25 mg PO ONCE PRN migraine 10/02/22 headache #12 tabs acetaminophen 650 mg 650 mg PO Q8H PRN arthritis pain 10/12/22 tablet,extended release (Tylenol #90 tabs Arthritis Pain) guaifenesin 600 mg tablet, 600 mg PO Q12H PRN congestion 10 10/12/22 extended release 12 hr (Mucinex) days #20 tabs benzonatate 100 mg capsule 100 mg PO TID PRN cough 7 days #21 10/13/22 caps guaifenesin 100 mg/5 mL oral 200 mg (10 mL) PO Q4H PRN cough 5 10/17/22 liquid (Cough Syrup) days #300 mL insulin glargine 100 unit/mL 10 unit (0.1 mL) subcut QPM 90 10/17/22 subcutaneous solution (Lantus days #9 mL U-100 Insulin) insulin syringe-needle U-100 0.5 #100 ea 10/17/22 mL 31 gauge x 5/16 (BD Insulin Syringe Ultra-Fine) azithromycin 250 mg tablet 250 mg PO DAILY 4 days #4 tabs 10/18/22 (Zithromax Z-Naga) benzonatate 200 mg capsule 200 mg PO TID PRN cough #30 caps 10/18/22 cefuroxime axetil 500 mg tablet 500 mg PO BID #20 tabs 10/18/22 tramadol 50 mg tablet 50 mg PO Q6H PRN pain #20 tabs 10/18/22 insulin lispro 100 unit/mL 5 unit (0.05 mL) subcut TID 90 10/19/22 subcutaneous solution days #13.5 mL dulaglutide 0.75 mg/0.5 mL 0.75 mg (0.5 mL) subcut QWEEK #2 mL 10/20/22 subcutaneous pen injector (Trulicity) codeine 10 mg-guaifenesin 100 mg/5 10 ml PO Q6H PRN cough #237 mL 10/21/22 mL oral liquid metolazone 2.5 mg tablet 2.5 mg PO MOWEFR 30 days #13 tabs 10/21/22 torsemide 20 mg tablet 40 mg PO BID 30 days #120 tabs 10/21/22 <KAYLA Wharton - Last Filed: 11/02/22 09:44> Allergies/adverse reactions: Allergies Allergy/AdvReac Type Severity Reaction Status Date / Time Penicillins Allergy Severe swelling Verified 10/21/22 10:52 adhesive tape [ADHESIVE TAPE] Allergy Intermediate RASH Verified 10/21/22 10:52 amoxicillin [AMOXICILLIN] Allergy Intermediate RASH,SWELLI Verified 10/21/22 10:52 NG latex Allergy Intermediate Rash Verified 10/21/22 10:52 Motrin Allergy Intermediate hypertensio Verified 10/21/22 10:52 n <KAYLA Wharton - Last Filed: 11/02/22 09:44> Review of Systems Review of Systems: Yes all other systems are reviewed and are negative <Saul Chino MD - Last Filed: 10/21/22 02:31> [facility] Past Medical History Medical History: Medical History Arthropathy of facet joint Asthma Bilateral shoulder pain Chronic idiopathic constipation Chronic pain (Unknown) Chronic pain syndrome Degeneration, intervertebral disc, cervical Diabetes mellitus Disc degeneration, lumbar Fibromyalgia LUDY (generalized anxiety disorder) Gastroparesis Goiter Hyperlipidemia LDL goal <70 Hypothyroidism Incontinence Insomnia Left knee pain Lumbar pain Moderately severe recurrent major depression Morbid (severe) obesity due to excess calories Multiple air fluid levels of small intestine determined by X-ray Renal calculi Sleep apnea Small bowel motility disorder Spondylosis of cervical spine at multiple levels without myelopathy Spondylosis of cervical spine at multiple levels without myelopathy Spondylosis of lumbar region without myelopathy or radiculopathy <KAYLA Wharton - Last Filed: 11/02/22 09:44> Surgical History: Surgical History Delivery by section History of cholecystectomy History of esophagogastroduodenoscopy (EGD) History of hernia surgery History of hysterectomy History of knee replacement procedure of right knee Hx of colonoscopy <KAYLA Wharton - Last Filed: 11/02/22 09:44> Family History Family History: Family History Father Past heart attack Anxiety Mother MOF (multiple organ failure) Brother HIV (human immunodeficiency virus infection) Sister Ovarian cancer Lupus Bone cancer Uterine cancer Tumor Daughter Guillain-[place] Sister Lupus History of open heart surgery Family/Other Depression FH: mental illness Maternal Aunt Breast cancer Maternal Aunt Tumor <KAYLA Wharton - Last Filed: 11/02/22 09:44> Social History Social History: Social History Household Members: None Household Members Other:: Housing: Apartment Are you a primary dog day care attendant to a significant other at home: No Do you presently have visiting nurse or other home 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) Alcohol intake: never Patient Tobacco Use Status: Never used Tobacco e-Cigarette/Vaping Use: Never Used Second Hand Smoke Exposure: Yes Advance Directives Date on File: 12/08/21 service: No Current occupational status: unemployed and disabled Cognitive needs: No Hearing needs: No Vision needs: No <KAYLA Wharton - Last Filed: 11/02/22 09:44> Physical Exam ED Vital Signs: Vital Signs - 24 hr 10/20/22 19:22 10/20/22 23:40 10/20/22 23:47 Temperature 98.4 F 98.1 F Pulse Rate 79 76 62 Respiratory Rate 18 17 18 Blood Pressure 136/71 121/77 Pulse Oximetry 95 96 Oxygen Delivery Method Room Air BMI result Body Mass Index 41.8 <KAYLA Wharton - Last Filed: 11/02/22 09:44> Vital Signs - 24 hr 10/20/22 19:22 10/20/22 23:40 10/20/22 23:47 Temperature 98.4 F 98.1 F Pulse Rate 79 76 62 Respiratory Rate 18 17 18 Blood Pressure 136/71 121/77 Pulse Oximetry 95 96 Oxygen Delivery Method Room Air BMI result Body Mass Index 41.8 <Saul Chino MD - Last Filed: 10/21/22 02:31> Appearance: Alert. Oriented X3. No acute distress. Dry cough Eyes: PERRLA, No Nystagmus ENT: Pharynx normal. Oral Mucosa moist Neck: Normal inspection. Neck supple. CVS: Normal heart rate and rhythm. Pulses normal. Respiratory: No respiratory distress. Equal air entry bilateral, no wheezing/rales/rhonchi Abdomen: Soft and nontender. Bowel sounds are present, no mass palpable, no CVA tenderness Skin: Skin warm and dry. Normal skin color. Normal skin turgor. Extremities: No lower extremity edema. No calf tenderness Neuro: Oriented X 3. No motor deficit. <Saul Chino MD - Last Filed: 10/21/22 02:31> Course Course Course Narrative: RME: patient with known pneumonia presents to the ED for same cough and bodyaches since diagnosed with pneumonia. Patient has had pneumonia for four days and taking antibiotics. repeat labs and chest xray. <KAYLA Wharton - Last Filed: 11/02/22 09:44> Medications Administered Discontinued Medications Generic Name Dose Route Start Last Admin Trade Name Freq PRN Reason Stop Dose Admin Albuterol Sulfate 2.5 mg/ 0 mg 10/20/22 23:36 10/20/22 23:45 Ipratropium Cadott 0.5 mg INHALE 10/20/22 23:37 2.5 each ONCE ONE Administration Guaifenesin/Codeine Phosphate 10 ml 10/20/22 23:35 10/21/22 01:11 Guaifen/Codeine Sf 200/20/10ml 10 Ml Liquid PO 10/20/22 23:36 10 ml ONCE ONE Administration Hydromorphone HCl 1 mg 10/20/22 23:36 10/21/22 01:11 Hydromorphone Hcl 2 Mg Tablet PO 10/20/22 23:37 1 mg ONCE ONE Administration <KAYLA Wharton - Last Filed: 11/02/22 09:44> Medications Administered Discontinued Medications Generic Name Dose Route Start Last Admin Trade Name Freq PRN Reason Stop Dose Admin Albuterol Sulfate 2.5 mg/ 0 mg 10/20/22 23:36 10/20/22 23:45 Ipratropium Cadott 0.5 mg INHALE 10/20/22 23:37 2.5 each ONCE ONE Administration Guaifenesin/Codeine Phosphate 10 ml 10/20/22 23:35 10/21/22 01:11 Guaifen/Codeine Sf 200/20/10ml 10 Ml Liquid PO 10/20/22 23:36 10 ml ONCE ONE Administration Hydromorphone HCl 1 mg 10/20/22 23:36 10/21/22 01:11 Hydromorphone Hcl 2 Mg Tablet PO 10/20/22 23:37 1 mg ONCE ONE Administration <Saul Chino MD - Last Filed: 10/21/22 02:31> Medical Decision Making Medical Decision Making MDM Narrative: Patient chest x-ray negative for any infiltrate. Patient afebrile vital stable discharge patient home on codeine cough syrup <Saul Chino MD - Last Filed: 10/21/22 02:31> Discharge Plan Discharge Clinical Impression: Acute bronchitis, Community acquired pneumonia <KAYLA Wharton - Last Filed: 11/02/22 09:44> Patient Disposition: Home, Self-Care <KAYLA Wharton - Last Filed: 11/02/22 09:44> Instructions: Acute Bronchitis (ED), Community Acquired Pneumonia (ED) <KAYLA Wharton - Last Filed: 11/02/22 09:44> Additional Instructions: Continue antibiotics as prescribed Cough syrup for increased cough Use nebulizing treatment every 4-6 hours as needed <KAYLA Wharton - Last Filed: 11/02/22 09:44> Prescriptions: New codeine-guaifenesin 10-100 mg/5 mL liquid 10 ml PO Q6H PRN (Reason: cough) Qty: 237 0RF No Action (DME) lancets [FreeStyle Lancets] 28 gauge misc See Rx Instructions .Route Qty: 100 6RF Rx Instructions: BID (DME) FreeStyle Julianne 2 Sensor Kit See Rx Instructions .Route Qty: 1 2RF Rx Instructions: As directed (DME) diabetic supplies, miscellan. Misc See Rx Instructions .Route Qty: 1 0RF Rx Instructions: As directed (DME) heating pads Pad See Rx Instructions .Route Qty: 1 0RF Rx Instructions: As directed sennosides [senna] 8.6 mg tablet 17.2 mg PO BEDTIME Qty: 60 3RF Hold Instructions: Doctor's Order (DME) Gel mattress overlay [facility]ending [facility] To [facility] See Rx Instructions .Route Qty: 1 0RF Rx Instructions: As directed (DME) Toilet seat riser See Rx Instructions .Route .MEDSUPPLY Qty: 1 0RF Rx Instructions: As directed (DME) miscellaneous medical supply [facility] [place] See Rx Instructions .ROUTE .MEDSUPPLY Qty: 1 0RF Rx Instructions: toilet seat elevator (DME) pen needle, diabetic [BD Ultra-Fine Mini Pen Needle] 31 gauge x 3/16 needle See Rx Instructions .Route Qty: 100 0RF Rx Instructions: As directed (DME) diabetic shoes and inserts See Rx Instructions .Route .MEDSUPPLY Qty: 1 1RF Rx Instructions: As directed levothyroxine 112 mcg tablet 112 mcg PO DAILY 90 Days Qty: 90 1RF (DME) BD Insulin Syringe (half unit) 0.3 mL 31 gauge x 5/16 syringe See Rx Instructions .Route Qty: 100 3RF Rx Instructions: Use 1 needle once a day hydrocortisone [Anti-Itch (HC)] 1 % cream 1 appl topical TID PRN (Reason: skin irritation) 30 Days Qty: 28.4 0RF metoclopramide HCl [Reglan] 10 mg tablet 10 mg PO QIDACHS Qty: 120 3RF Rx Instructions: Provider aware possible interactions and is monitoring patient duloxetine 60 mg capsule,delayed release(DR/EC) 90 mg PO DAILY 90 Days Qty: 135 1RF (DME) blood-glucose meter [FreeStyle Lite Meter] Kit See Rx Instructions .Route Qty: 1 0RF Rx Instructions: As directed (DME) FreeStyle Lite Strips Strip See Rx Instructions .Route Qty: 100 3RF Rx Instructions: use 1 test strip once a day (DME) walker [facility] [place] See Rx Instructions .Route Qty: 1 0RF Rx Instructions: walker with seat and wheels metformin 500 mg tablet 500 mg PO BID Qty: 180 2RF clotrimazole 1 % cream 1 appl topical BID 28 Days Qty: 30 1RF alcohol swabs [Alcohol Prep Pads] Pads, Medicated 1 pad topical .once a day 90 Days Qty: 100 0RF gabapentin 800 mg tablet 800 mg PO TID 30 Days Qty: 90 0RF amlodipine 10 mg tablet 10 mg PO DAILY Qty: 90 1RF meclizine 25 mg tablet 25 mg PO TID PRN (Reason: dizziness) 30 Days Qty: 90 0RF water for irrigation, sterile Solution 1 irrig irrigation DAILY 30 Days Qty: 500 6RF sumatriptan succinate 25 mg tablet 25 mg PO ONCE PRN (Reason: migraine headache) Qty: 12 1RF guaifenesin [Mucinex] 600 mg tablet extended release 12hr 600 mg PO Q12H PRN (Reason: congestion) 10 Days Qty: 20 0RF acetaminophen [Tylenol Arthritis Pain] 650 mg tablet extended release 650 mg PO Q8H PRN (Reason: arthritis pain) Qty: 90 3RF benzonatate 100 mg capsule 100 mg PO TID PRN (Reason: cough) 7 Days Qty: 21 0RF insulin glargine [Lantus U-100 Insulin] 100 unit/mL solution 10 unit subcut QPM 90 Days Qty: 9 1RF guaifenesin [Cough Syrup] 100 mg/5 mL liquid 200 mg PO Q4H PRN (Reason: cough) 5 Days Qty: 300 0RF (DME) insulin syringe-needle U-100 [BD Insulin Syringe Ultra-Fine] 0.5 mL 31 gauge x 5/16 syringe See Rx Instructions .Route Qty: 100 3RF Rx Instructions: Use 1 three times a day insulin lispro 100 unit/mL solution 5 unit subcut TID 90 Days Qty: 13.5 2RF lorazepam [Ativan] 1 mg tablet 1 mg PO BID PRN (Reason: anxiety) Qty: 14 0RF ondansetron 4 mg tablet,disintegrating 4 mg PO Q8H PRN (Reason: nausea and vomiting) Qty: 30 0RF (DME) Shower Chair Misc See Rx Instructions .Route Qty: 1 0RF Rx Instructions: As directed ergocalciferol (vitamin D2) 1,250 mcg (50,000 unit) capsule 1,250 mcg PO Q2W azithromycin [Zithromax Z-Naga] 250 mg tablet 250 mg PO DAILY 4 Days Qty: 4 0RF Rx Instructions: start on day 2 of therapy benzonatate 200 mg capsule 200 mg PO TID PRN (Reason: cough) Qty: 30 0RF tramadol 50 mg tablet 50 mg PO Q6H PRN (Reason: pain) Qty: 20 0RF cefuroxime axetil 500 mg tablet 500 mg PO BID Qty: 20 0RF (DME) vaporizers Misc See Rx Instructions .ROUTE .MEDSUPPLY Qty: 1 Rx Instructions: As directed prochlorperazine maleate 10 mg tablet 10 mg PO Q8H PRN (Reason: Nausea) ferrous sulfate 325 mg (65 mg iron) tablet 325 mg PO DAILY 90 Days Qty: 90 1RF albuterol sulfate [Ventolin HFA] 90 mcg/actuation HFA aerosol inhaler 2 puff inhalation Q6H PRN (Reason: shortness of breath or wheezing) 30 Days Qty: 6.7 1RF lidocaine 4 % cream 1 appl topical BID PRN (Reason: pain) Qty: 30 1RF atorvastatin 10 mg tablet 10 mg PO BEDTIME 90 Days Qty: 90 1RF diclofenac sodium [Arthritis Pain (diclofenac)] 1 % gel 2 g topical QID PRN (Reason: pain) Qty: 100 0RF Rx Instructions: apply to neck clonidine HCl 0.1 mg tablet 0.1 mg PO TID PRN (Reason: Agitation or Anxiety) mirtazapine 30 mg tablet 30 mg PO BEDTIME metoprolol tartrate 50 mg tablet 50 mg PO BID nystatin 100,000 unit/gram ointment 1 appl topical TID Qty: 30 3RF hydroxyzine HCl 50 mg tablet 50 mg PO BEDTIME Qty: 30 3RF dicyclomine 10 mg capsule 10 mg PO BID PRN (Reason: cramping) Qty: 60 3RF albuterol sulfate 2.5 mg /3 mL (0.083 %) solution for nebulization 2.5 mg inhalation QID PRN (Reason: shortness of breath or wheezing) Qty: 75 0RF (DME) insulin syringe-needle U-100 [BD Insulin Syringe Ultra-Fine] 0.3 mL 31 gauge x 5/16 syringe See Rx Instructions .ROUTE .MEDSUPPLY Qty: 10 Rx Instructions: As directed Trulicity 0.75 mg/0.5 mL pen injector 0.75 mg subcut QWEEK Qty: 2 5RF metoclopramide HCl [Reglan] 5 mg tablet 5 mg PO TIDAC Qty: 90 6RF Hold Instructions: Doctor's Order Creon 24,000-76,000 -120,000 unit capsule,delayed release(DR/EC) 1 cap PO QID 30 Days Qty: 120 6RF Rx Instructions: administer with meals and/or snacks Advair HFA 230-21 mcg/actuation HFA aerosol inhaler 2 puff inhalation Q12H 30 Days Qty: 1 6RF pantoprazole 40 mg tablet,delayed release (DR/EC) 40 mg PO DAILY lorazepam 0.5 mg tablet 0.5 mg PO DAILY PRN peg 3350-electrolytes [Golytely] 236-22.74-6.74 -5.86 gram recon soln 240 ml PO Q10M 1 Days Qty: 4000 0RF Rx Instructions: until fecal effluent is clear; do not exceed a total volume of 2,000 mL hydrocortisone [Proctosol HC] 2.5 % cream with perineal applicator 1 appl RI BID PRN (Reason: hemorrhoids) Qty: 30 3RF loperamide [Anti-Diarrheal (loperamide)] 2 mg capsule 2 mg PO TID PRN (Reason: loose stool) Qty: 90 0RF ammonium lactate 12 % cream 1 appl topical BID Qty: 385 6RF (DME) blood pressure test kit-wrist Kit See Rx Instructions .ROUTE .MEDSUPPLY Qty: 1 0RF Rx Instructions: to check blood pressure cyclobenzaprine 10 mg tablet 10 mg PO TID Qty: 90 0RF torsemide 20 mg tablet 40 mg PO BID 30 Days Qty: 120 6RF metolazone 2.5 mg tablet 2.5 mg PO MOWEFR 30 Days Qty: 13 0RF <KAYLA Wharton - Last Filed: 11/02/22 09:44> Interventions: ED Discharge Assessment Last Done: 10/21/22 01:14 <KAYLA Wharton - Last Filed: 11/02/22 09:44> Discharge Date/Time: 10/21/22 01:15 <KAYLA Wharton - Last Filed: 11/02/22 09:44>
--- NOTE | 2022-10-20 22:57 | PC.NURSE ---
EKG obtained late due to ER machines being out of order.
[2022-10-20 23:40] VITALS: BP 121/77; PULSE 76; RESP 17; TEMP 36.7; O2SAT 96
[2022-10-20 23:47] VITALS: PULSE 62; RESP 18; O2SAT 100
[2022-10-21] MEDS: HYDROmorphone HCl 2 MG TABLET 1 MG PO (01:11)
[2022-10-21] MEDS: guaiFEN/Codeine SF 200/20/10ML 10 ML LIQUID PO (01:11)
== END 2022-10-21 01:15 | disposition home or self-care (01) ==
PROVIDERS: Emergency Provider Internal Medicine; PCP Student in an Organized Health Care Education/Training Program
DX: J20.9 Acute bronchitis, unspecified (principal); J18.9 Pneumonia, unspecified organism; R07.89 Other chest pain; R06.02 Shortness of breath; M79.10 Myalgia, unspecified site; R05.9 Cough, unspecified; Z79.899 Other long term (current) drug therapy
CPT/HCPCS: 71045; 93005; 94640; 99284

== ENCOUNTER → 2022-10-21 10:46 | Outpatient (BNVA) | payer OTHER, SELFPAY | PROVIDERS: PCP Internal Medicine; Visit Provider Internal Medicine Pulmonary Disease | DX: J81.1 Chronic pulmonary edema (principal); R06.01 Orthopnea; R60.0 Localized edema; G47.33 Obstructive sleep apnea (adult) (pediatric); Z99.89 Dependence on other enabling machines and devices | CPT/HCPCS: 99212 ==

== ENCOUNTER 2022-11-02 10:54 | Emergency (ER) | payer OTHER, SELFPAY ==
--- NOTE | ~2022-11-02 | CT_ITS ---
CT HEAD WITHOUT CONTRAST CLINICAL INFORMATION: Headache/hypertensive. COMPARISON: Head CT 09/25/2022. TECHNIQUE: Contiguous axial imaging was performed from the skull base to vertex without intravenous administration of contrast. This CT examination was performed using dose optimization techniques as appropriate, variously including the following: *Automated exposure control *Adjustment of mA and/or kV according to patient size (this includes techniques or standardized protocols for targeted exams where dose is matched to indication/reason for exam; i.e. extremities or head) *Use of iterative reconstruction technique FINDINGS: There is no intracranial hemorrhage, hydrocephalus, extra-axial surface collection, midline shift, or other herniation pattern. Harris to white matter differentiation is diffusely maintained without evidence of an evolved acute territorial infarct. The basilar cisterns are preserved. No significant soft tissue abnormality. No acute osseous abnormality. The paranasal sinuses and the mastoid air cells are well aerated. CT/CT head/brain wo IV con IMPRESSION: No acute intracranial abnormality.
--- NOTE | ~2022-11-02 | XR_ITS ---
EXAMINATION: XR CHEST CLINICAL INFORMATION: Pneumonia. COMPARISON: Chest x-ray 10/20/[address] 10/18/2022 TECHNIQUE: Frontal view of the chest was obtained. FINDINGS: There is a chronically elevated right hemidiaphragm with right basilar atelectasis. Rest of the lungs are expanded and clear. The heart size and pulmonary vascularity is normal. No gross bony abnormalities seen. XR/XR chest 1V IMPRESSION: Chronic elevated right hemidiaphragm with underlying right basilar atelectasis, stable compared to previous CT 10/18/2022 and chest x-ray 10/20/2022.
[2022-11-02 11:26] VITALS: BP 150/89; PULSE 100; RESP 18; O2SAT 98; BMI 40.2
--- NOTE | 2022-11-02 12:16 | ED.GENADULT ---
HPI - General Adult General Chief complaint: General Medical <Anayeli Bauer NP - Last Filed: 11/04/22 11:07> Stated complaint: high bp <Anayeli Bauer NP - Last Filed: 11/04/22 11:07> Time Seen by Provider: 11/02/22 14:54 <Anayeli Bauer NP - Last Filed: 11/04/22 11:07> Source: patient <KAYLA Wharton - Last Filed: 11/09/22 11:22> Mode of arrival: ambulatory <KAYLA Wharton - Last Filed: 11/09/22 11:22> Limitations: no limitations <KAYLA Wharton Last Filed: 11/09/22 11:22> History of Present Illness HPI narrative: 57-year-old female history of hypertension, fibromyalgia, sleep apnea, migraine , chronic pain syndrome, presents to the ED for couple of days of headache and elevated blood pressure. Patient states at home for the past couple of days of blood pressure diastolic has been at least 112 and systolic 177. Patient states she is compliant with her blood pressure medications which are metoprolol and amlodipine. Patient states nausea with headache. Patient denies any chest pain, shortness of breath, facial droop, slurred speech, paralysis of extremities, dizziness, or loss of vision. Patient denies any photophobia, neck stiffness, fever, chills, rash, chest pain, or shortness of breath. Patient denies any abdominal pain, dysuria, hematuria, leg swelling, calf pain, or any recent trauma. <KAYLA Wharton - Last Filed: 11/09/22 11:22> Related Data Home medications: Home Medications Medication Instructions Recorded Confirmed vaporizers #1 ea 10/10/20 08/10/22 clonidine HCl 0.1 mg tablet 0.1 mg PO TID PRN Agitation or 09/19/21 10/20/22 Anxiety prochlorperazine maleate 10 mg 10 mg PO Q8H PRN Nausea 04/09/22 08/10/22 tablet mirtazapine 30 mg tablet 30 mg PO BEDTIME 06/23/22 08/10/22 ergocalciferol (vitamin D2) 1,250 1,250 mcg PO Q2W 07/04/22 08/10/22 mcg (50,000 unit) capsule lorazepam 0.5 mg tablet 0.5 mg PO DAILY PRN 08/13/22 10/20/22 metoprolol tartrate 50 mg tablet 50 mg PO BID 10/01/22 10/20/22 insulin syringe-needle U-100 0.3 #10 ea 10/20/22 10/20/22 mL 31 gauge x 5/16 (BD Insulin Syringe Ultra-Fine) Previous Rx's Medication Instructions Recorded lancets 28 gauge (FreeStyle #100 ea 05/23/21 Lancets) diabetic supplies, miscellan. #1 ea 12/03/21 flash glucose sensor (FreeStyle #1 ea 12/03/21 Julianne 2 Sensor kit) heating pads #1 ea 01/21/22 sennosides 8.6 mg tablet (senna) 17.2 mg PO BEDTIME #60 tabs 01/26/22 Gel mattress overlay #1 ea 01/28/22 Toilet seat riser #1 ea 03/05/22 miscellaneous medical supply #1 ea 03/10/22 atorvastatin 10 mg tablet 10 mg PO BEDTIME 90 days #90 tabs 03/16/22 albuterol sulfate 90 mcg/actuation 2 puff inhalation Q6H PRN 04/09/22 aerosol inhaler (Ventolin HFA) shortness of breath or wheezing 30 days #6.7 grams ferrous sulfate 325 mg (65 mg 325 mg PO DAILY 90 days #90 tabs 04/09/22 iron) tablet pen needle, diabetic 31 gauge x #100 ea 04/10/22 3/16 (BD Ultra-Fine Mini Pen Needle) diabetic shoes and inserts #1 ea 05/06/22 Shower Chair #1 ea 05/11/22 dkpizz-cuvhhczn-xywdrcz 1 cap PO QID 30 days #120 caps 05/12/22 24,000-76,000-120,000 unit capsule,delayed rel (Creon) metoclopramide HCl 5 mg tablet 5 mg PO TIDAC #90 tabs 05/12/22 (Reglan) fluticasone propionate 230 2 puff inhalation Q12H 30 days #1 05/29/22 mcg-salmeterol 21 mcg/actuation ea HFA inhaler (Advair HFA) lidocaine 4 % topical cream 1 appl topical BID PRN pain #30 06/10/22 grams levothyroxine 112 mcg tablet 112 mcg PO DAILY 90 days #90 tabs 06/21/22 insulin syr/ndl U100 half desean 0.3 #100 ea 07/16/22 mL 31 gauge x 5/16 (BD Insulin Syringe Ultra-Fine (half unit)) hydrocortisone 1 % topical cream 1 appl topical TID PRN skin 07/22/22 (Anti-Itch (hydrocortisone)) irritation 30 days #28.4 grams lorazepam 1 mg tablet (Ativan) 1 mg PO BID PRN anxiety #14 tabs 08/03/22 metoclopramide HCl 10 mg tablet 10 mg PO QIDACHS #120 tabs 08/05/22 (Reglan) ondansetron 4 mg disintegrating 4 mg PO Q8H PRN nausea and 08/07/22 tablet vomiting #30 tabs diclofenac sodium 1 % topical gel 2 g topical QID PRN pain #100 grams 08/10/22 (Arthritis Pain (diclofenac)) ammonium lactate 12 % topical cream 1 appl topical BID #385 grams 08/13/22 blood pressure test kit-wrist #1 ea 08/13/22 hydrocortisone 2.5 % topical cream 1 appl HI BID PRN hemorrhoids #30 08/13/22 with perineal applicator grams (Proctosol HC) loperamide 2 mg capsule 2 mg PO TID PRN loose stool #90 08/13/22 (Anti-Diarrheal (loperamide)) caps peg 3350-electrolytes 236 240 ml PO Q10M 1 day #4,000 mL 08/13/22 gram-22.74 gram-6.74 gram-5.86 gram solution (Golytely) cyclobenzaprine 10 mg tablet 10 mg PO TID #90 tabs 08/20/22 duloxetine 60 mg capsule,delayed 90 mg PO DAILY 90 days #135 caps 08/24/22 release blood sugar diagnostic (FreeStyle #100 ea 09/01/22 Lite Strips) blood-glucose meter (FreeStyle #1 ea 09/01/22 Lite Meter kit) walker #1 ea 09/01/22 alcohol swabs (Alcohol Prep Pads) 1 pad topical .once a day 90 days 09/04/22 #100 ea clotrimazole 1 % topical cream 1 appl topical BID 4 weeks #30 09/04/22 grams gabapentin 800 mg tablet 800 mg PO TID 30 days #90 tabs 09/04/22 metformin 500 mg tablet 500 mg PO BID #180 tabs 09/04/22 amlodipine 10 mg tablet 10 mg PO DAILY #90 tabs 09/15/22 meclizine 25 mg tablet 25 mg PO TID PRN dizziness 30 days 09/23/22 #90 tabs water for irrigation, sterile 1 irrig irrigation DAILY 30 days 09/25/22 #500 mL albuterol sulfate 2.5 mg/3 mL 2.5 mg (3 mL) inhalation QID PRN 10/01/22 (0.083 %) solution for nebulization shortness of breath or wheezing #75 mL dicyclomine 10 mg capsule 10 mg PO BID PRN cramping #60 caps 10/01/22 hydroxyzine HCl 50 mg tablet 50 mg PO BEDTIME #30 tabs 10/01/22 nystatin 100,000 unit/gram topical 1 appl topical TID #30 grams 10/01/22 ointment sumatriptan succinate 25 mg tablet 25 mg PO ONCE PRN migraine 10/02/22 headache #12 tabs acetaminophen 650 mg 650 mg PO Q8H PRN arthritis pain 10/12/22 tablet,extended release (Tylenol #90 tabs Arthritis Pain) guaifenesin 600 mg tablet, 600 mg PO Q12H PRN congestion 10 10/12/22 extended release 12 hr (Mucinex) days #20 tabs benzonatate 100 mg capsule 100 mg PO TID PRN cough 7 days #21 10/13/22 caps guaifenesin 100 mg/5 mL oral 200 mg (10 mL) PO Q4H PRN cough 5 10/17/22 liquid (Cough Syrup) days #300 mL insulin glargine 100 unit/mL 10 unit (0.1 mL) subcut QPM 90 10/17/22 subcutaneous solution (Lantus days #9 mL U-100 Insulin) insulin syringe-needle U-100 0.5 #100 ea 10/17/22 mL 31 gauge x 5/16 (BD Insulin Syringe Ultra-Fine) azithromycin 250 mg tablet 250 mg PO DAILY 4 days #4 tabs 10/18/22 (Zithromax Z-Naga) benzonatate 200 mg capsule 200 mg PO TID PRN cough #30 caps 10/18/22 cefuroxime axetil 500 mg tablet 500 mg PO BID #20 tabs 10/18/22 tramadol 50 mg tablet 50 mg PO Q6H PRN pain #20 tabs 10/18/22 insulin lispro 100 unit/mL 5 unit (0.05 mL) subcut TID 90 10/19/22 subcutaneous solution days #13.5 mL dulaglutide 0.75 mg/0.5 mL 0.75 mg (0.5 mL) subcut QWEEK #2 mL 10/20/22 subcutaneous pen injector (Trulicity) codeine 10 mg-guaifenesin 100 mg/5 10 ml PO Q6H PRN cough #237 mL 10/21/22 mL oral liquid metolazone 2.5 mg tablet 2.5 mg PO MOWEFR 30 days #13 tabs 10/21/22 torsemide 20 mg tablet 40 mg PO BID 30 days #120 tabs 10/21/22 pantoprazole 40 mg tablet,delayed 40 mg PO DAILY #30 tabs 11/03/22 release <Anayeli Bauer NP - Last Filed: 11/04/22 11:07> Allergies/adverse reactions: Allergies Allergy/AdvReac Type Severity Reaction Status Date / Time Penicillins Allergy Severe swelling Verified 10/21/22 10:52 adhesive tape [ADHESIVE TAPE] Allergy Intermediate RASH Verified 10/21/22 10:52 amoxicillin [AMOXICILLIN] Allergy Intermediate RASH,SWELLI Verified 10/21/22 10:52 NG ibuprofen [From Motrin] Allergy Intermediate Hypertensio Verified 11/05/22 13:47 n latex Allergy Intermediate Rash Verified 10/21/22 10:52 <Anayeli Bauer NP - Last Filed: 11/04/22 11:07> Review of Systems Review of Systems: headache and nause. elevated blood pressure <KAYLA Wharton - Last Filed: 11/09/22 11:22> Yes all other systems are reviewed and are negative <KAYLA Wharton - Last Filed: 11/09/22 11:22> PMFSH Past Medical History Medical History: Medical History Arthropathy of facet joint Asthma Bilateral shoulder pain Chronic idiopathic constipation Chronic pain (Unknown) Chronic pain syndrome Degeneration, intervertebral disc, cervical Diabetes mellitus Disc degeneration, lumbar Fibromyalgia LUDY (generalized anxiety disorder) Gastroparesis Goiter Hyperlipidemia LDL goal <70 Hypothyroidism Incontinence Insomnia Left knee pain Lumbar pain Moderately severe recurrent major depression Morbid (severe) obesity due to excess calories Multiple air fluid levels of small intestine determined by X-ray Renal calculi Sleep apnea Small bowel motility disorder Spondylosis of cervical spine at multiple levels without myelopathy Spondylosis of cervical spine at multiple levels without myelopathy Spondylosis of lumbar region without myelopathy or radiculopathy <Anayeli Bauer NP - Last Filed: 11/04/22 11:07> Surgical History: Surgical History Delivery by section History of cholecystectomy History of esophagogastroduodenoscopy (EGD) History of hernia surgery History of hysterectomy History of knee replacement procedure of right knee Hx of colonoscopy <Anayeli Bauer NP - Last Filed: 11/04/22 11:07> Family History Family History: Family History Father Past heart attack Anxiety Mother MOF (multiple organ failure) Brother HIV (human immunodeficiency virus infection) Sister Ovarian cancer Lupus Bone cancer Uterine cancer Tumor Daughter Guillain-Ansted Sister Lupus History of open heart surgery Family/Other Depression FH: mental illness Maternal Aunt Breast cancer Maternal Aunt Tumor <Anayeli Bauer NP - Last Filed: 11/04/22 11:07> Social History Social History: Social History Household Members: None Household Members Other:: Housing: Apartment Are you a primary childcare attendant to a significant other at home: No Do you presently have visiting nurse or other home services: Yes ([employer]) Alcohol intake: never Patient Tobacco Use Status: Never used Tobacco e-Cigarette/Vaping Use: Never Used Second Hand Smoke Exposure: Yes Advance Directives Date on File: 12/08/21 service: No Current occupational status: unemployed and disabled Cognitive needs: No Hearing needs: No Vision needs: No <Anayeli Bauer NP - Last Filed: 11/04/22 11:07> Physical Exam ED Vital Signs: Vital Signs - 24 hr 11/02/22 11:26 11/02/22 13:23 11/02/22 15:30 Temperature 97.9 F 98.2 F Pulse Rate 100 98 91 Respiratory Rate 18 18 18 Blood Pressure 150/89 H 172/100 H 156/99 H Pulse Oximetry 98 97 94 Oxygen Delivery Method Room Air Room Air Room Air 11/02/22 18:32 Temperature Pulse Rate 99 Respiratory Rate 18 Blood Pressure 144/71 H Pulse Oximetry 94 Oxygen Delivery Method Room Air BMI result Body Mass Index 40.2 <Anayeli Bauer NP - Last Filed: 11/04/22 11:07> Vital Signs - 24 hr 11/02/22 11:26 11/02/22 13:23 11/02/22 15:30 Temperature 97.9 F 98.2 F Pulse Rate 100 98 91 Respiratory Rate 18 18 18 Blood Pressure 150/89 H 172/100 H 156/99 H Pulse Oximetry 98 97 94 Oxygen Delivery Method Room Air Room Air Room Air 11/02/22 18:32 Temperature Pulse Rate 99 Respiratory Rate 18 Blood Pressure 144/71 H Pulse Oximetry 94 Oxygen Delivery Method Room Air BMI result Body Mass Index 40.2 <KAYLA Wharton - Last Filed: 11/09/22 11:22> Const General: cooperative, healthy appearing, comfortable, no acute distress, well developed, alert, awake and Physically active <KAYLA Wharton Last Filed: 11/09/22 11:22> Orientation/consciousness: oriented to person, oriented to place and oriented to time <KAYLA Wharton - Last Filed: 11/09/22 11:22> [facility] Head: Yes normal to inspection, Yes No palpable skull fracture present, Yes normocephalic, Yes atraumatic and No abrasion <KAYLA Wharton Last Filed: 11/09/22 11:22> Ears: hearing grossly normal bilaterally, external ears normal, TM's normal bilaterally, TM normal on the right, mastoids normal and no periauricular adenopathy <KAYLA Wharton Last Filed: 11/09/22 11:22> General nose exam: Normal external nose present and Normal nares present <KAYLA Wharton Last Filed: 11/09/22 11:22> Face and sinus: Yes normal facial exam and Yes sinuses nontender <Agustin RamónKAYLA Colby Last Filed: 11/09/22 11:22> Throat: Yes posterior oropharynx normal, Yes tonsils normal and Yes uvula midline <Agustin Ramón, PA Last Filed: 11/09/22 11:22> Eyes Other: negative photophobia <Agustin Ramón, PA Colby Last Filed: 11/09/22 11:22> General: appearance normal, both eyes and all related structures <Agustin Ramón, PA Last Filed: 11/09/22 11:22> Neck Neck: Yes normal visual inspection, Yes full ROM, Yes no lymphadenopathy, Yes no meningeal signs, Yes trachea midline, Yes supple, No anterior neck swelling and No tender <Agustin RamónKAYLA Last Filed: 11/09/22 11:22> Chest Chest palpation & inspection: normal inspection of the chest and normal palpation of entire chest wall <Agustin RamónKAYLA Last Filed: 11/09/22 11:22> Resp Effort & Inspection: normal respiratory effort and able to speak in complete sentences <Agustin Ramón, PA Last Filed: 11/09/22 11:22> Auscultation: clear to auscultation bilaterally <Agustin Ramón, PA Last Filed: 11/09/22 11:22> Cardio Jugular venous distension: no JVD <Agustin RamónKAYLA Last Filed: 11/09/22 11:22> Heart sounds: S1 normal heart sound present and S2 normal heart sound present <Agustin Ramón, PA Last Filed: 11/09/22 11:22> GI Inspection: Yes normal to inspection and No abdominal wall ecchymosis <Agustin Ramón, PA Last Filed: 11/09/22 11:22> Palpation (GI): nontender, no guarding and not rigid <Agustin Ramón, PA Last Filed: 11/09/22 11:22> General: No CVA tenderness and Yes no CVA tenderness <Agustin Ramón, PA Last Filed: 11/09/22 11:22> Back/Spine/Pelvis Back: no CVA tenderness, No CVA tenderness and No back tenderness <KAYLA Wharton Last Filed: 11/09/22 11:22> Skin General skin exam: no rashes or lesions noted and elasticity normal <KAYLA Wharton - Last Filed: 11/09/22 11:22> Neuro Other: Negative for facial droop or slurred speech. <KAYLA Wharton Last Filed: 11/09/22 11:22> General: oriented to person, oriented to place, oriented to time, gait normal, tone normal, moves all extremities, Normal light touch and pain sensation, no meningeal signs, no focal motor deficits, CN's II-XI intact bilaterally and normal sensation to monofilament <KAYLA Wharton - Last Filed: 11/09/22 11:22> Extrem Other: Lower extremities negative for swelling, pitting edema, calf tenderness <KAYLA Wharton Last Filed: 11/09/22 11:22> General: Yes normal to inspection and Yes full ROM <KAYLA Wharton Last Filed: 11/09/22 11:22> Psych Appearance: grossly normal, well kempt and not disheveled <KAYLA Wharton Last Filed: 11/09/22 11:22> Course Course Course Narrative: This is a rapid medical exam. Defer additional HPI, ROS, P to primary provider. Patient reports discharge her blood pressure this morning her blood pressure was 172/112 and patient had headache and nausea. Patient has history of hypertension and did take her morning medications. In triage blood pressure 150/80. <Anayeli Bauer NP - Last Filed: 11/04/22 11:07> Reevaluation(s) Reevaluation #1: EKG negative STEMI. Head CT scan normal. First troponin negative. Rest of labs normal and at baseline.Waiting for second troponin. Negative for any neuro deficits. History physical exam does not indicate any meningitis <KAYLA Wharton Last Filed: 11/09/22 11:22> Time: 18:20 <KAYLA Wharton Last Filed: 11/09/22 11:22> Reevaluation #2: went to ree-valuate patient and she was lying down flat with 02 sat 93% and 94 %. patient was sat up straight and appropirately and started breathing normally and 02 sat was 95% and 96% on the monitor. Lungs clear. Will still do xray to make sure there is no atypical pneumonia. WBC awalys elevated. Patient does has history of sleep apnea. patient informed PCP should adjust her blood pressure medications. patient request meds for headache, and chronic back pain/myalgia. Patient has pmh of migraine. patient states no urinay/bowel incontinence or symptoms. <KAYLA Wharton - Last Filed: 11/09/22 11:22> Time: 18:54 <KAYLA Wharton - Last Filed: 11/09/22 11:22> Reevaluation #3: Head CT and chest x-ray ordered <KAYLA Wharton - Last Filed: 11/09/22 11:22> Medications Administered Discontinued Medications Generic Name Dose Route Start Last Admin Trade Name Freq PRN Reason Stop Dose Admin Acetaminophen 975 mg 11/02/22 15:04 11/02/22 15:28 Acetaminophen 325 Mg Tablet PO 11/02/22 15:05 975 mg ONCE ONE Administration Acetaminophen/Butalbital/Caffeine 1 tab 11/02/22 19:00 11/02/22 19:20 Butalb/Acetamin/Caff 50/325/40 Tablet PO 11/02/22 19:01 1 tab ONCE ONE Administration Diphenhydramine HCl 25 mg 11/02/22 19:01 11/02/22 19:20 Diphenhydramine Hcl 25 Mg Capsule PO 11/02/22 19:02 25 mg ONCE ONE Administration Metoclopramide HCl 10 mg 11/02/22 19:00 11/02/22 19:20 Metoclopramide Hcl 10 Mg Tablet PO 11/02/22 19:01 10 mg ONCE ONE Administration Oxycodone HCl 5 mg 11/02/22 18:59 11/02/22 19:20 Oxycodone Hcl Immed Release 5 Mg Tablet PO 11/02/22 19:00 5 mg ONCE ONE Administration <Anayeli Bauer NP - Last Filed: 11/04/22 11:07> Medications Administered Discontinued Medications Generic Name Dose Route Start Last Admin Trade Name Freq PRN Reason Stop Dose Admin Acetaminophen 975 mg 11/02/22 15:04 11/02/22 15:28 Acetaminophen 325 Mg Tablet PO 11/02/22 15:05 975 mg ONCE ONE Administration Acetaminophen/Butalbital/Caffeine 1 tab 11/02/22 19:00 11/02/22 19:20 Butalb/Acetamin/Caff 50/325/40 Tablet PO 11/02/22 19:01 1 tab ONCE ONE Administration Diphenhydramine HCl 25 mg 11/02/22 19:01 11/02/22 19:20 Diphenhydramine Hcl 25 Mg Capsule PO 11/02/22 19:02 25 mg ONCE ONE Administration Metoclopramide HCl 10 mg 11/02/22 19:00 11/02/22 19:20 Metoclopramide Hcl 10 Mg Tablet PO 11/02/22 19:01 10 mg ONCE ONE Administration Oxycodone HCl 5 mg 11/02/22 18:59 11/02/22 19:20 Oxycodone Hcl Immed Release 5 Mg Tablet PO 11/02/22 19:00 5 mg ONCE ONE Administration <KAYLA Wharton - Last Filed: 11/09/22 11:22> Medical Decision Making Medical Decision Making MDM Narrative: 57-year-old female history of high blood pressure, diabetes, and sleep apnea presents to ED for headache nausea and elevated blood pressure. History physical exam does not indicate stroke or meningitis. EKG negative STEMI 1st troponin negative <KAYLA Wharton - Last Filed: 11/09/22 11:22> Differential Diagnosis Differential Diagnoses: The differential diagnosis associated with the presentation includes (Hypertensive headache, myocardial infarction, rule out stroke, renal failure,) <KAYLA Wharton - Last Filed: 11/09/22 11:22> Lab Data [facility] Lab Attestation statement: I reviewed the patient's lab results. <KAYLA Wharton - Last Filed: 11/09/22 11:22> Result Diagrams: 11/02/22 15:24 11/02/22 15:24 <Anayeli Bauer NP - Last Filed: 11/04/22 11:07> Labs: Lab Results 11/02/22 11/02/22 11/02/22 Range/Units 15:12 15:24 15:24 WBC 15.6 H (4.8-10.8) X10*3/uL RBC 6.12 H (4.20-5.50) X10*6/uL Hgb 13.4 (12.0-16.0) g/dl Hct 44.8 (37.0-47.0) % MCV 73.2 L (80.0-98.0) fL MCH 21.9 L (27.0-33.0) pg MCHC 29.9 L (31.0-35.0) g/dl RDW 17.4 H (11.0-16.0) % Plt Count 335 (160-400) X10*3/uL MPV 10.6 (9.4-12.3) fL Immature Gran % (Auto) 0.5 H (0.0-0.4) % Neut % (Auto) 80.3 H (45-73) % Lymph % (Auto) 12.6 L (20-40) % [place] % (Auto) 5.7 (2-11) % Eos % (Auto) 0.6 (0-4) % Baso % (Auto) 0.3 (0-2) % Lymph # (Auto) 2.0 (1.2-4.9) X10*3/uL [place] # (Auto) 0.9 (0.1-1.2) X10*3/uL Eos # (Auto) 0.1 (0.0-0.4) X10*3/uL Baso # (Auto) 0.1 (0.0-0.2) X10*3/uL Abs Immat Gran (auto) 0.07 H (0.00-0.03) X10*3/uL Absolute Neuts (auto) 12.5 H (2.0-8.3) x10*3/uL Absolute Nucleated RBC 0.000 (0.0-0.012) X10*3/uL Nucleated RBC % (auto) 0.0 (0.0-0.2) /100WBC PT 13.3 H (10.0-13.1) SEC INR 1.2 H (0.9-1.1) APTT 29.2 (26.0-36.4) SEC Sodium (135-145) mmol/L Potassium (3.3-5.1) mmol/L Chloride (96-108) mmol/L Carbon Dioxide (22-29) mmol/L Anion Gap (12-20) BUN (9-16) mg/dL Creatinine (0.5-1.4) mg/dL Estim Creat Clear Calc Estimated GFR Random Glucose (60-115) mg/dL Calcium (8.4-10.2) mg/dL Magnesium (1.6-2.6) mg/dL Total Bilirubin (0.0-1.0) mg/dL AST (5-31) U/L ALT (0-31) U/L Alkaline Phosphatase (39-117) U/L Troponin I High Sens (<3.5-17.0) ng/L Total Protein (6.5-8.0) g/dL Albumin (3.5-5.0) g/dL Influenza Type A (PCR) NEGATIVE (Negative) Influenza Type B (PCR) NEGATIVE (Negative) RSV RNA Qual (PCR) NEGATIVE (Negative) SARS-CoV-2 RNA (RT-PCR) NEGATIVE (Negative) 11/02/22 11/02/22 11/02/22 Range/Units 15:24 15:24 18:48 WBC (4.8-10.8) X10*3/uL RBC (4.20-5.50) X10*6/uL Hgb (12.0-16.0) g/dl Hct (37.0-47.0) % MCV (80.0-98.0) fL MCH (27.0-33.0) pg MCHC (31.0-35.0) g/dl RDW (11.0-16.0) % Plt Count (160-400) X10*3/uL MPV (9.4-12.3) fL Immature Gran % (Auto) (0.0-0.4) % Neut % (Auto) (45-73) % Lymph % (Auto) (20-40) % [place] % (Auto) (2-11) % Eos % (Auto) (0-4) % Baso % (Auto) (0-2) % Lymph # (Auto) (1.2-4.9) X10*3/uL [place] # (Auto) (0.1-1.2) X10*3/uL Eos # (Auto) (0.0-0.4) X10*3/uL Baso # (Auto) (0.0-0.2) X10*3/uL Abs Immat Gran (auto) (0.00-0.03) X10*3/uL Absolute Neuts (auto) (2.0-8.3) x10*3/uL Absolute Nucleated RBC (0.0-0.012) X10*3/uL Nucleated RBC % (auto) (0.0-0.2) /100WBC PT (10.0-13.1) SEC INR (0.9-1.1) APTT (26.0-36.4) SEC Sodium 141 (135-145) mmol/L Potassium 3.3 (3.3-5.1) mmol/L Chloride 96 (96-108) mmol/L Carbon Dioxide 30 H (22-29) mmol/L Anion Gap 18 (12-20) BUN 22 H (9-16) mg/dL Creatinine 1.09 (0.5-1.4) mg/dL Estim Creat Clear Calc 76.0 Estimated GFR 52 Random Glucose 134 H (60-115) mg/dL Calcium 9.8 D (8.4-10.2) mg/dL Magnesium 1.7 (1.6-2.6) mg/dL Total Bilirubin 0.8 (0.0-1.0) mg/dL AST 22 (5-31) U/L ALT 31 (0-31) U/L Alkaline Phosphatase 124 H (39-117) U/L Troponin I High Sens < 3.5 < 3.5 (<3.5-17.0) ng/L Total Protein 8.6 H (6.5-8.0) g/dL Albumin 4.3 (3.5-5.0) g/dL Influenza Type A (PCR) (Negative) Influenza Type B (PCR) (Negative) RSV RNA Qual (PCR) (Negative) SARS-CoV-2 RNA (RT-PCR) (Negative) <Anayeli Bauer, [employer] - Last Filed: 11/04/22 11:07> Lab Results 11/02/22 11/02/22 11/02/22 Range/Units 15:12 15:24 15:24 WBC 15.6 H (4.8-10.8) X10*3/uL RBC 6.12 H (4.20-5.50) X10*6/uL Hgb 13.4 (12.0-16.0) g/dl Hct 44.8 (37.0-47.0) % MCV 73.2 L (80.0-98.0) fL MCH 21.9 L (27.0-33.0) pg MCHC 29.9 L (31.0-35.0) g/dl RDW 17.4 H (11.0-16.0) % Plt Count 335 (160-400) X10*3/uL MPV 10.6 (9.4-12.3) fL Immature Gran % (Auto) 0.5 H (0.0-0.4) % Neut % (Auto) 80.3 H (45-73) % Lymph % (Auto) 12.6 L (20-40) % [place] % (Auto) 5.7 (2-11) % Eos % (Auto) 0.6 (0-4) % Baso % (Auto) 0.3 (0-2) % Lymph # (Auto) 2.0 (1.2-4.9) X10*3/uL [place] # (Auto) 0.9 (0.1-1.2) X10*3/uL Eos # (Auto) 0.1 (0.0-0.4) X10*3/uL Baso # (Auto) 0.1 (0.0-0.2) X10*3/uL Abs Immat Gran (auto) 0.07 H (0.00-0.03) X10*3/uL Absolute Neuts (auto) 12.5 H (2.0-8.3) x10*3/uL Absolute Nucleated RBC 0.000 (0.0-0.012) X10*3/uL Nucleated RBC % (auto) 0.0 (0.0-0.2) /100WBC PT 13.3 H (10.0-13.1) SEC INR 1.2 H (0.9-1.1) APTT 29.2 (26.0-36.4) SEC Sodium (135-145) mmol/L Potassium (3.3-5.1) mmol/L Chloride (96-108) mmol/L Carbon Dioxide (22-29) mmol/L Anion Gap (12-20) BUN (9-16) mg/dL Creatinine (0.5-1.4) mg/dL Estim Creat Clear Calc Estimated GFR Random Glucose (60-115) mg/dL Calcium (8.4-10.2) mg/dL Magnesium (1.6-2.6) mg/dL Total Bilirubin (0.0-1.0) mg/dL AST (5-31) U/L ALT (0-31) U/L Alkaline Phosphatase (39-117) U/L Troponin I High Sens (<3.5-17.0) ng/L Total Protein (6.5-8.0) g/dL Albumin (3.5-5.0) g/dL Influenza Type A (PCR) NEGATIVE (Negative) Influenza Type B (PCR) NEGATIVE (Negative) RSV RNA Qual (PCR) NEGATIVE (Negative) SARS-CoV-2 RNA (RT-PCR) NEGATIVE (Negative) 11/02/22 11/02/22 11/02/22 Range/Units 15:24 15:24 18:48 WBC (4.8-10.8) X10*3/uL RBC (4.20-5.50) X10*6/uL Hgb (12.0-16.0) g/dl Hct (37.0-47.0) % MCV (80.0-98.0) fL MCH (27.0-33.0) pg MCHC (31.0-35.0) g/dl RDW (11.0-16.0) % Plt Count (160-400) X10*3/uL MPV (9.4-12.3) fL Immature Gran % (Auto) (0.0-0.4) % Neut % (Auto) (45-73) % Lymph % (Auto) (20-40) % [place] % (Auto) (2-11) % Eos % (Auto) (0-4) % Baso % (Auto) (0-2) % Lymph # (Auto) (1.2-4.9) X10*3/uL [place] # (Auto) (0.1-1.2) X10*3/uL Eos # (Auto) (0.0-0.4) X10*3/uL Baso # (Auto) (0.0-0.2) X10*3/uL Abs Immat Gran (auto) (0.00-0.03) X10*3/uL Absolute Neuts (auto) (2.0-8.3) x10*3/uL Absolute Nucleated RBC (0.0-0.012) X10*3/uL Nucleated RBC % (auto) (0.0-0.2) /100WBC PT (10.0-13.1) SEC INR (0.9-1.1) APTT (26.0-36.4) SEC Sodium 141 (135-145) mmol/L Potassium 3.3 (3.3-5.1) mmol/L Chloride 96 (96-108) mmol/L Carbon Dioxide 30 H (22-29) mmol/L Anion Gap 18 (12-20) BUN 22 H (9-16) mg/dL Creatinine 1.09 (0.5-1.4) mg/dL Estim Creat Clear Calc 76.0 Estimated GFR 52 Random Glucose 134 H (60-115) mg/dL Calcium 9.8 D (8.4-10.2) mg/dL Magnesium 1.7 (1.6-2.6) mg/dL Total Bilirubin 0.8 (0.0-1.0) mg/dL AST 22 (5-31) U/L ALT 31 (0-31) U/L Alkaline Phosphatase 124 H (39-117) U/L Troponin I High Sens < 3.5 < 3.5 (<3.5-17.0) ng/L Total Protein 8.6 H (6.5-8.0) g/dL Albumin 4.3 (3.5-5.0) g/dL Influenza Type A (PCR) (Negative) Influenza Type B (PCR) (Negative) RSV RNA Qual (PCR) (Negative) SARS-CoV-2 RNA (RT-PCR) (Negative) <KAYLA Wharton - Last Filed: 11/09/22 11:22> Independent Interpretation I performed an independent interpretation of an: EKG <KAYLA Wharton - Last Filed: 11/09/22 11:22> Interpretation: Normal sinus rhythm. Particular 81. Pr interval 134. QRS 86. QTC 569 Negative STEMI <KAYLA Wharton Last Filed: 11/09/22 11:22> Radiology Impression Discussion of test interpretation with radiology: I have reviewed the radiologist's reading. <KAYLA Wharton - Last Filed: 11/09/22 11:22> Prescription Management Patient inform primary care provider will need to readjust hypertensive medication. <KAYLA Wharton - Last Filed: 11/09/22 11:22> Chronic Conditions Patient?s care impacted by: Diabetes and Hypertension <KAYLA Wharton - Last Filed: 11/09/22 11:22> Discharge Plan Discharge Clinical Impression: Hypertension, Headache <Anayeli Bauer NP - Last Filed: 11/04/22 11:07> Patient Disposition: Home, Self-Care <Anayeli Bauer NP - Last Filed: 11/04/22 11:07> Instructions: Hypertension (ED), General Headache (ED) <Anayeli Bauer NP - Last Filed: 11/04/22 11:07> Additional Instructions: Your symptoms were most likely due to hypertension. Your lab work came back at baseline. EKG and blood test came back negative for heart attack. And CT scan came back negative for signs of bleed or stroke. Chest x-ray normal. Please follow-up with the primary care provider. Call him tomorrow for readjustment of medications. Return to the ED for any photophobia, slurred speech, facial droop, paralysis of extremities, neck stiffness, chest pain, shortness of breath, abdominal pain, nausea, vomiting, loss of vision, rash, or any other concerning symptoms. <Anayeli Bauer NP - Last Filed: 11/04/22 11:07> Prescriptions: No Action (DME) lancets [FreeStyle Lancets] 28 gauge misc See Rx Instructions .Route Qty: 100 6RF Rx Instructions: BID (DME) FreeStyle Julianne 2 Sensor Kit See Rx Instructions .Route Qty: 1 2RF Rx Instructions: As directed (DME) diabetic supplies, miscellan. Misc See Rx Instructions .Route Qty: 1 0RF Rx Instructions: As directed (DME) heating pads Pad See Rx Instructions .Route Qty: 1 0RF Rx Instructions: As directed sennosides [senna] 8.6 mg tablet 17.2 mg PO BEDTIME Qty: 60 3RF Hold Instructions: Doctor's Order (DME) Gel mattress overlay Misc See Rx Instructions .Route Qty: 1 0RF Rx Instructions: As directed (DME) Toilet seat riser See Rx Instructions .Route .MEDSUPPLY Qty: 1 0RF Rx Instructions: As directed (DME) miscellaneous medical supply [facility] See Rx Instructions .ROUTE .MEDSUPPLY Qty: 1 0RF Rx Instructions: toilet seat elevator (DME) pen needle, diabetic [BD Ultra-Fine Mini Pen Needle] 31 gauge x 3/16 needle See Rx Instructions .Route Qty: 100 0RF Rx Instructions: As directed (DME) diabetic shoes and inserts See Rx Instructions .Route .MEDSUPPLY Qty: 1 1RF Rx Instructions: As directed levothyroxine 112 mcg tablet 112 mcg PO DAILY 90 Days Qty: 90 1RF (DME) BD Insulin Syringe (half unit) 0.3 mL 31 gauge x 5/16 syringe See Rx Instructions .Route Qty: 100 3RF Rx Instructions: Use 1 needle once a day hydrocortisone [Anti-Itch (HC)] 1 % cream 1 appl topical TID PRN (Reason: skin irritation) 30 Days Qty: 28.4 0RF metoclopramide HCl [Reglan] 10 mg tablet 10 mg PO QIDACHS Qty: 120 3RF Rx Instructions: Provider aware possible interactions and is monitoring patient duloxetine 60 mg capsule,delayed release(DR/EC) 90 mg PO DAILY 90 Days Qty: 135 1RF (DME) blood-glucose meter [FreeStyle Lite Meter] Kit See Rx Instructions .Route Qty: 1 0RF Rx Instructions: As directed (DME) FreeStyle Lite Strips Strip See Rx Instructions .Route Qty: 100 3RF Rx Instructions: use 1 test strip once a day (DME) walker [facility] See Rx Instructions .Route Qty: 1 0RF Rx Instructions: walker with seat and wheels metformin 500 mg tablet 500 mg PO BID Qty: 180 2RF clotrimazole 1 % cream 1 appl topical BID 28 Days Qty: 30 1RF alcohol swabs [Alcohol Prep Pads] Pads, Medicated 1 pad topical .once a day 90 Days Qty: 100 0RF gabapentin 800 mg tablet 800 mg PO TID 30 Days Qty: 90 0RF amlodipine 10 mg tablet 10 mg PO DAILY Qty: 90 1RF meclizine 25 mg tablet 25 mg PO TID PRN (Reason: dizziness) 30 Days Qty: 90 0RF water for irrigation, sterile Solution 1 irrig irrigation DAILY 30 Days Qty: 500 6RF sumatriptan succinate 25 mg tablet 25 mg PO ONCE PRN (Reason: migraine headache) Qty: 12 1RF guaifenesin [Mucinex] 600 mg tablet extended release 12hr 600 mg PO Q12H PRN (Reason: congestion) 10 Days Qty: 20 0RF acetaminophen [Tylenol Arthritis Pain] 650 mg tablet extended release 650 mg PO Q8H PRN (Reason: arthritis pain) Qty: 90 3RF benzonatate 100 mg capsule 100 mg PO TID PRN (Reason: cough) 7 Days Qty: 21 0RF insulin glargine [Lantus U-100 Insulin] 100 unit/mL solution 10 unit subcut QPM 90 Days Qty: 9 1RF guaifenesin [Cough Syrup] 100 mg/5 mL liquid 200 mg PO Q4H PRN (Reason: cough) 5 Days Qty: 300 0RF (DME) insulin syringe-needle U-100 [BD Insulin Syringe Ultra-Fine] 0.5 mL 31 gauge x 5/16 syringe See Rx Instructions .Route Qty: 100 3RF Rx Instructions: Use 1 three times a day insulin lispro 100 unit/mL solution 5 unit subcut TID 90 Days Qty: 13.5 2RF pantoprazole 40 mg tablet,delayed release (DR/EC) 40 mg PO DAILY Qty: 30 0RF lorazepam [Ativan] 1 mg tablet 1 mg PO BID PRN (Reason: anxiety) Qty: 14 0RF ondansetron 4 mg tablet,disintegrating 4 mg PO Q8H PRN (Reason: nausea and vomiting) Qty: 30 0RF (DME) Shower Chair Misc See Rx Instructions .Route Qty: 1 0RF Rx Instructions: As directed ergocalciferol (vitamin D2) 1,250 mcg (50,000 unit) capsule 1,250 mcg PO Q2W azithromycin [Zithromax Z-Naga] 250 mg tablet 250 mg PO DAILY 4 Days Qty: 4 0RF Rx Instructions: start on day 2 of therapy benzonatate 200 mg capsule 200 mg PO TID PRN (Reason: cough) Qty: 30 0RF tramadol 50 mg tablet 50 mg PO Q6H PRN (Reason: pain) Qty: 20 0RF cefuroxime axetil 500 mg tablet 500 mg PO BID Qty: 20 0RF codeine-guaifenesin 10-100 mg/5 mL liquid 10 ml PO Q6H PRN (Reason: cough) Qty: 237 0RF (DME) vaporizers Misc See Rx Instructions .ROUTE .MEDSUPPLY Qty: 1 Rx Instructions: As directed prochlorperazine maleate 10 mg tablet 10 mg PO Q8H PRN (Reason: Nausea) ferrous sulfate 325 mg (65 mg iron) tablet 325 mg PO DAILY 90 Days Qty: 90 1RF albuterol sulfate [Ventolin HFA] 90 mcg/actuation HFA aerosol inhaler 2 puff inhalation Q6H PRN (Reason: shortness of breath or wheezing) 30 Days Qty: 6.7 1RF lidocaine 4 % cream 1 appl topical BID PRN (Reason: pain) Qty: 30 1RF atorvastatin 10 mg tablet 10 mg PO BEDTIME 90 Days Qty: 90 1RF diclofenac sodium [Arthritis Pain (diclofenac)] 1 % gel 2 g topical QID PRN (Reason: pain) Qty: 100 0RF Rx Instructions: apply to neck clonidine HCl 0.1 mg tablet 0.1 mg PO TID PRN (Reason: Agitation or Anxiety) mirtazapine 30 mg tablet 30 mg PO BEDTIME metoprolol tartrate 50 mg tablet 50 mg PO BID nystatin 100,000 unit/gram ointment 1 appl topical TID Qty: 30 3RF hydroxyzine HCl 50 mg tablet 50 mg PO BEDTIME Qty: 30 3RF dicyclomine 10 mg capsule 10 mg PO BID PRN (Reason: cramping) Qty: 60 3RF albuterol sulfate 2.5 mg /3 mL (0.083 %) solution for nebulization 2.5 mg inhalation QID PRN (Reason: shortness of breath or wheezing) Qty: 75 0RF (DME) insulin syringe-needle U-100 [BD Insulin Syringe Ultra-Fine] 0.3 mL 31 gauge x 5/16 syringe See Rx Instructions .ROUTE .MEDSUPPLY Qty: 10 Rx Instructions: As directed Trulicity 0.75 mg/0.5 mL pen injector 0.75 mg subcut QWEEK Qty: 2 5RF metoclopramide HCl [Reglan] 5 mg tablet 5 mg PO TIDAC Qty: 90 6RF Hold Instructions: Doctor's Order Creon 24,000-76,000 -120,000 unit capsule,delayed release(DR/EC) 1 cap PO QID 30 Days Qty: 120 6RF Rx Instructions: administer with meals and/or snacks Advair HFA 230-21 mcg/actuation HFA aerosol inhaler 2 puff inhalation Q12H 30 Days Qty: 1 6RF lorazepam 0.5 mg tablet 0.5 mg PO DAILY PRN peg 3350-electrolytes [Golytely] 236-22.74-6.74 -5.86 gram recon soln 240 ml PO Q10M 1 Days Qty: 4000 0RF Rx Instructions: until fecal effluent is clear; do not exceed a total volume of 2,000 mL hydrocortisone [Proctosol HC] 2.5 % cream with perineal applicator 1 appl HI BID PRN (Reason: hemorrhoids) Qty: 30 3RF loperamide [Anti-Diarrheal (loperamide)] 2 mg capsule 2 mg PO TID PRN (Reason: loose stool) Qty: 90 0RF ammonium lactate 12 % cream 1 appl topical BID Qty: 385 6RF (DME) blood pressure test kit-wrist Kit See Rx Instructions .ROUTE .MEDSUPPLY Qty: 1 0RF Rx Instructions: to check blood pressure cyclobenzaprine 10 mg tablet 10 mg PO TID Qty: 90 0RF torsemide 20 mg tablet 40 mg PO BID 30 Days Qty: 120 6RF metolazone 2.5 mg tablet 2.5 mg PO MOWEFR 30 Days Qty: 13 0RF <Anayeli Bauer NP - Last Filed: 11/04/22 11:07> Referrals: Jenny Mendosa MD [Primary Care Provider] - (Hypertension headache) <Anayeli Bauer NP - Last Filed: 11/04/22 11:07> Interventions: ED Discharge Assessment Last Done: 11/02/22 20:05 <Anayeli Bauer NP - Last Filed: 11/04/22 11:07> Discharge Date/Time: 11/02/22 20:20 <Anayeli Bauer NP - Last Filed: 11/04/22 11:07> Print Language: Cambodian <Anayeli Bauer [employer] - Last Filed: 11/04/22 11:07>
[2022-11-02 13:23] VITALS: BP 172/100; PULSE 98; RESP 18; TEMP 36.6; O2SAT 97
--- NOTE | 2022-11-02 15:01 | ECG_ITS ---
Test Reason : migraine Blood Pressure : / mmHG Vent. Rate : 081 BPM Atrial Rate : 081 BPM P-R Int : 134 ms QRS Dur : 086 ms QT Int : 490 ms P-R-T Axes : -14 002 008 degrees QTc Int : 569 ms Normal sinus rhythm Normal ECG When compared with ECG of 20-OCT-2022 22:59, Nonspecific T wave abnormality has replaced inverted T waves in Inferior leads QT has lengthened Referred By: Agustin Melgar Electronically Signed By:Antonio Espinosa
[2022-11-02] MEDS: Acetaminophen 325 MG TABLET 975 MG PO (15:28)
[2022-11-02 15:30] VITALS: BP 156/99; PULSE 91; RESP 18; TEMP 36.8; O2SAT 94
[2022-11-02 15:36] LABS: MANUAL DIFF FLAG NO
[2022-11-02 15:39] LABS: Basophils Absolute Auto 0.1 X10*3/uL (0.0-0.2); Basophils Percent Auto 0.3 % (0-2); Eosinophils Absolute Auto 0.1 X10*3/uL (0.0-0.4); Eosinophils Percent Auto 0.6 % (0-4); Hematocrit 44.8 % (37.0-47.0); Hemoglobin 13.4 g/dl (12.0-16.0); Imm Gran Abs Auto 0.07 X10*3/uL (0.00-0.03); Imm Gran Pct Auto 0.5 % (0.0-0.4); Lymphocytes Percent Auto 12.6 % (20-40); Mean Corpuscular HGB Conc 29.9 g/dl (31.0-35.0); Mean Corpuscular Hemoglobin 21.9 pg (27.0-33.0); Mean Corpuscular Volume 73.2 fL (80.0-98.0); Mean Platelet Volume 10.6 fL (9.4-12.3); Monocytes Absolute Auto 0.9 X10*3/uL (0.1-1.2); Monocytes Percent Auto 5.7 % (2-11); Neutrophils Absolute Auto 12.5 x10*3/uL (2.0-8.3); Neutrophils Percent Auto 80.3 % (45-73); Platelet Count 335 X10*3/uL (160-400); Red Blood Count 6.12 X10*6/uL (4.20-5.50); Red Cell Distribution Width 17.4 % (11.0-16.0); White Blood Count 15.6 X10*3/uL (4.8-10.8)
[2022-11-02 15:44] LABS: INTERNATIONAL NORM RATIO 1.2 (0.9-1.1); Prothrombin Time 13.3 SEC (10.0-13.1)
[2022-11-02 15:47] LABS: Partial Thromboplastin Time 29.2 SEC (26.0-36.4)
[2022-11-02 16:06] LABS: Troponin-I High Sensitivity < 3.5 ng/L (<3.5-17.0)
[2022-11-02 16:17] LABS: Influenza A PCR NEGATIVE (Negative); Influenza B PCR NEGATIVE (Negative); Resp Syncy Virus RNA Qual PCR NEGATIVE (Negative); SARS COV2 PCR INHOUSE NEGATIVE (Negative)
[2022-11-02 16:19] LABS: Alanine Aminotransferase 31 U/L (0-31); Albumin Level 4.3 g/dL (3.5-5.0); Alkaline Phosphatase 124 U/L (39-117); Anion Gap 18 (12-20); Aspartate Amino Transferase 22 U/L (5-31); Bilirubin Total 0.8 mg/dL (0.0-1.0); Blood Urea Nitrogen 22 mg/dL (9-16); Calcium 9.8 mg/dL (8.4-10.2); Carbon Dioxide 30 mmol/L (22-29); Chloride 96 mmol/L (96-108); Estimated Glomerular Filt Rate 52; Glucose Random 134 mg/dL (60-115); Potassium 3.3 mmol/L (3.3-5.1); Sodium 141 mmol/L (135-145); Total Protein 8.6 g/dL (6.5-8.0)
[2022-11-02 18:32] VITALS: BP 144/71; PULSE 99; RESP 18; O2SAT 94
[2022-11-02 19:19] LABS: Magnesium 1.7 mg/dL (1.6-2.6)
[2022-11-02] MEDS: Butalb/Acetamin/Caff 50/325/40 TABLET 1 TAB PO (19:20)
[2022-11-02] MEDS: oxyCODONE HCl Immed Release 5 MG TABLET PO (19:20)
[2022-11-02] MEDS: Metoclopramide HCl 10 MG TABLET PO (19:20)
[2022-11-02] MEDS: diphenhydrAMINE HCL 25 MG CAPSULE PO (19:20)
[2022-11-02 19:28] LABS: Troponin-I High Sensitivity < 3.5 ng/L (<3.5-17.0)
== END 2022-11-02 20:20 | disposition home or self-care (01) ==
PROVIDERS: Physician Assistant; Emergency Provider Student in an Organized Health Care Education/Training Program; PCP Internal Medicine
DX: R51.9 Headache, unspecified (principal); I10 Essential (primary) hypertension; Z20.822 Contact with and (suspected) exposure to COVID-19; Z20.828 Contact with and (suspected) exposure to other viral communicable diseases; Z79.899 Other long term (current) drug therapy
CPT/HCPCS: 0241U; 36415; 70450; 71045; 80053; 83735; 84484; 85025; 85610; 85730; 93005; 99284

== ENCOUNTER → 2022-11-10 10:52 | Outpatient (BNVA) | payer OTHER, SELFPAY | PROVIDERS: PCP Internal Medicine; Visit Provider Nurse Practitioner | DX: Z01.818 Encounter for other preprocedural examination (principal); K21.9 Gastro-esophageal reflux disease without esophagitis; K31.84 Gastroparesis; K59.04 Chronic idiopathic constipation; E11.43 Type 2 diabetes mellitus with diabetic autonomic (poly)neuropathy; G47.33 Obstructive sleep apnea (adult) (pediatric); E66.01 Morbid (severe) obesity due to excess calories; Z68.39 Body mass index [BMI] 39.0-39.9, adult | CPT/HCPCS: 99212 ==

== ENCOUNTER → 2022-11-25 11:28 | Outpatient (BNVA) | payer OTHER, SELFPAY | PROVIDERS: PCP Internal Medicine; Visit Provider Anesthesiology | DX: Z13.89 Encounter for screening for other disorder (principal) ==

== ENCOUNTER → 2023-01-06 13:48 | Outpatient (BNVA) | payer OTHER, SELFPAY | PROVIDERS: PCP Internal Medicine; Visit Provider Nurse Practitioner Family ==

== ENCOUNTER 2023-01-06 15:06 | Emergency (ER) | payer OTHER, SELFPAY ==
--- NOTE | ~2023-01-06 | CT_ITS ---
EXAMINATION: CT ABDOMEN AND PELVIS WITH CONTRAST CLINICAL INFORMATION: Hypotension. COMPARISON: CT scan of the abdomen and pelvis dated 10/18/2022. TECHNIQUE: Multidetector volumetric images were obtained from the superior aspect of the liver through the pubic symphysis following administration 85 mL of Omnipaque 350 intravenous contrast. Sagittal and coronal reformatted images were obtained on the technologist's workstation. Oral contrast: No This CT examination was performed using dose optimization techniques as appropriate, variously including the following: *Automated exposure control *Adjustment of mA and/or kV according to patient size (this includes techniques or standardized protocols for targeted exams where dose is matched to indication/reason for exam; i.e. extremities or head) *Use of iterative reconstruction technique DLP: 1367 mGy-cm along with a CTA of the chest from today. FINDINGS: LUNG BASES: Please refer to the report from the CTA of the chest obtained today for detailed findings. LIVER, GALLBLADDER, AND BILIARY TREE: Moderate elevation of the right hemidiaphragm. Diffuse decreased hepatic attenuation. Status post cholecystectomy. No biliary ductal dilatation. PANCREAS: Unremarkable. SPLEEN: Unremarkable. ADRENAL GLANDS: Unremarkable. KIDNEYS AND URETERS: The kidneys are normal in size, shape, and attenuation. No hydronephrosis, hydroureter, or calculi seen. No perinephric stranding. BLADDER: Unremarkable. GASTROINTESTINAL TRACT: There is a very small hiatal hernia. The remainder of the stomach as well as the small bowel and appendix are unremarkable. The colon and rectum are unremarkable. ABDOMINAL WALL: Mild midline ventral bulging without associated abnormality. LYMPH NODES: No lymphadenopathy. VASCULAR: Unremarkable. PELVIC VISCERA: Atrophic uterus versus subtotal hysterectomy. No adnexal abnormality. OSSEOUS STRUCTURES: Multilevel degenerative disc disease in the thoracic spine as well as at L5-S1. CT/CT abdomen pelvis w IV con IMPRESSION: 1. No acute intra-abdominal/pelvic abnormality to explain the patient's symptoms. 2. Hepatic steatosis. 3. Very small hiatal hernia. Fleischner guidelines were followed.
--- NOTE | ~2023-01-06 | CT_ITS ---
EXAMINATION: CT ANGIOGRAM OF THE CHEST WITH AND WITHOUT CONTRAST (CT PULMONARY ANGIOGRAM FOR PE) CLINICAL INFORMATION: Hypotension. COMPARISON: Chest CT scan dated 06/23/2022. TECHNIQUE: Prior to contrast administration, noncontrast localization images were obtained. Subsequently, multidetector volumetric imaging was performed from the thoracic inlet to below the diaphragms following the administration of 80 mL Omnipaque 350 intravenous contrast. No contrast reaction reported Sagittal, coronal, and MIP oblique sagittal reformatted images were obtained on the CT workstation, uploaded to PACS, and reviewed. This CT examination was performed using dose optimization techniques as appropriate, variously including the following: *Automated exposure control *Adjustment of mA and/or kV according to patient size (this includes techniques or standardized protocols for targeted exams where dose is matched to indication/reason for exam; i.e. extremities or head) *Use of iterative reconstruction technique Total exam dose-length product 1367 mGy-cm FINDINGS: QUALITY OF STUDY/CONTRAST BOLUS: Satisfactory. PULMONARY ARTERIES: No pulmonary emboli. THORACIC AORTA: No aneurysm. LUNGS/PLEURA/AIRWAYS: No focal consolidation, nodules or masses. Mild bibasilar atelectasis. Moderate elevation of the right hemidiaphragm. MEDIASTINUM: The thyroid gland is unremarkable. Normal heart size. No pericardial effusion. No hilar or mediastinal lymphadenopathy. No evidence of septal bowing or right heart strain. CORONARY ARTERY CALCIFICATION: None visualized on this study. CHEST WALL/AXILLA: No axillary or internal mammary lymphadenopathy. OSSEOUS STRUCTURES: Mild multilevel degenerative changes. No acute/suspicious abnormality. UPPER ABDOMEN: Please refer to the report from the CT scan of the abdomen and pelvis from today. No reflux of contrast into the hepatic veins to suggest elevated right heart pressures. CT/CT angio chest PE protocol IMPRESSION: 1. No evidence for pulmonary embolism. 2. Moderate elevation of the right hemidiaphragm with associated compressive atelectasis in the right middle and lower lobes. No acute abnormality. VTE: negative
--- NOTE | ~2023-01-06 | CT_ITS ---
EXAMINATION: CT HEAD WITHOUT CONTRAST CLINICAL INFORMATION: Tremors. COMPARISON: CT head 11/02/2022. TECHNIQUE: Contiguous axial imaging was performed from the skull base to vertex without intravenous administration of contrast. This CT examination was performed using dose optimization techniques as appropriate, variously including the following: *Automated exposure control *Adjustment of mA and/or kV according to patient size (this includes techniques or standardized protocols for targeted exams where dose is matched to indication/reason for exam; i.e. extremities or head) *Use of iterative reconstruction technique DLP: 774 mGy-cm FINDINGS: There is no acute intracranial hemorrhage or abnormal extra-axial collection. No intracranial mass effect or midline shift. Lateral and third ventricles are normal. No hydrocephalus. Harris-white matter differentiation is grossly preserved and there is no evidence of acute territorial infarct. The calvarium and skull base are intact. Mastoid air cells and middle ear cavities are well aerated. No active paranasal sinus disease. CT/CT head/brain wo IV con IMPRESSION: Unremarkable CT scan of the head. No evidence of acute territorial infarct or hemorrhage.
--- NOTE | ~2023-01-06 | US_ITS ---
EXAMINATION: US VENOUS ULTRASOUND WITH DOPPLER LOWER EXTREMITY, LEFT CLINICAL INFORMATION: Left lower extremity pain COMPARISON: None available. TECHNIQUE: Ultrasound of the deep veins is performed from the hip to the calf with compression sonography and color and pulse Doppler assessment. Spectral analysis with color-flow imaging is performed. FINDINGS: There is normal venous compression and respiratory variation and augmented flow. The visualized common femoral vein, superficial femoral vein, profunda femoral vein, popliteal vein, and the trifurcation region shows no evidence of deep venous thrombosis. There is no significant popliteal fossa cyst. If the patient's symptoms persist, followup ultrasound in 5 days 7 days might be of value to exclude proximal propagation from a non-visualized calf vein. US/US venous duplex LE IMPRESSION: No DVT demonstrated in the left lower extremity.
--- NOTE | ~2023-01-06 | XR_ITS ---
EXAMINATION: XR CHEST CLINICAL INFORMATION: Chest pain. COMPARISON: 11/02/2022 chest radiograph. TECHNIQUE: 2 views of the chest were obtained. FINDINGS: There is moderate elevation of the right hemidiaphragm. The lungs are otherwise clear. There are no pleural effusions. The heart and mediastinal structures are unremarkable. XR/XR chest 2V IMPRESSION: Moderate elevation of the right hemidiaphragm. No acute cardiopulmonary process.
[2023-01-06 15:12] VITALS: BP 106/80; PULSE 80; O2SAT 97
[2023-01-06 15:18] VITALS: BP 117/56; PULSE 86; RESP 18; TEMP 37.3; O2SAT 95; BMI 38.5
--- NOTE | 2023-01-06 15:56 | ECG_ITS ---
Test Reason : CHEST PAIN Blood Pressure : / mmHG Vent. Rate : 082 BPM Atrial Rate : 082 BPM P-R Int : 130 ms QRS Dur : 084 ms QT Int : 416 ms P-R-T Axes : -15 003 003 degrees QTc Int : 486 ms Sinus rhythm Prolonged QT Abnormal ECG When compared with ECG of 02-NOV-2022 17:12, QT has shortened Referred By: Eusebio Jimenes Electronically Signed By:MARISA SCHAFER MD
--- NOTE | 2023-01-06 15:58 | ED_ITS ---
HPI - General Adult General Chief complaint: General Medical Stated complaint: chest pain Time Seen by Provider: 01/06/23 15:44 Source: patient and RN notes reviewed Mode of arrival: EMS Limitations: no limitations History of Present Illness HPI narrative: Patient presents after a near syncopal episode in her transplant surgeon's office. States she has been having chest pain since that visit. Prior to this she has been having tremors over the past 2 months. She does not have a history of tremors in the past. They are faxing bilateral hands and feet equally. Prior to the onset of the tremor she did to medication or change in health status. She also complains of chest pain today day which she describes as sharp in left- sided. Worse with palpation and inspiration. No prior history of heart attack or thromboembolic disease. She does have a history of insulin-dependent diabetes. She typically takes her blood sugar daily in the morning and is usually in the 115 range. Today it is 240 according to the patient check her blood sugar this morning before giving herself insulin as she was going to the doctor's appointment. Is fevers chills cough or dyspnea. No nausea vomiting or diarrhea. No history of tremors or similar symptoms or syncope prior to this in her life. Her transplant surgeon center in with concern for so. She is tachycardic in our office. She is not tachycardic here Related Data Home Medications Medication Instructions Recorded Confirmed vaporizers #1 ea 10/10/20 01/06/23 clonidine HCl 0.1 mg tablet 0.1 mg PO TID PRN Agitation or 09/19/21 01/06/23 Anxiety prochlorperazine maleate 10 mg 10 mg PO Q8H PRN Nausea 04/09/22 01/06/23 tablet mirtazapine 30 mg tablet 30 mg PO BEDTIME 06/23/22 01/06/23 lorazepam 0.5 mg tablet 0.5 mg PO DAILY PRN 08/13/22 01/06/23 metoprolol tartrate 50 mg tablet 50 mg PO BID 10/01/22 01/06/23 insulin syringe-needle U-100 0.3 #10 ea 10/20/22 01/06/23 mL 31 gauge x 5/16 (BD Insulin Syringe Ultra-Fine) Previous Rx's Medication Instructions Recorded lancets 28 gauge (FreeStyle #100 ea 05/23/21 Lancets) diabetic supplies, miscellan. #1 ea 12/03/21 flash glucose sensor (FreeStyle #1 ea 12/03/21 Julianne 2 Sensor kit) heating pads #1 ea 01/21/22 sennosides 8.6 mg tablet (senna) 17.2 mg PO BEDTIME #60 tabs 01/26/22 Gel mattress overlay #1 ea 01/28/22 Toilet seat riser #1 ea 03/05/22 miscellaneous medical supply #1 ea 03/10/22 atorvastatin 10 mg tablet 10 mg PO BEDTIME 90 days #90 tabs 03/16/22 pen needle, diabetic 31 gauge x #100 ea 04/10/22 3/16 (BD Ultra-Fine Mini Pen Needle) diabetic shoes and inserts #1 ea 05/06/22 Shower Chair #1 ea 05/11/22 lidocaine 4 % topical cream 1 appl topical BID PRN pain #30 06/10/22 grams levothyroxine 112 mcg tablet 112 mcg PO DAILY 90 days #90 tabs 06/21/22 insulin syr/ndl U100 half desean 0.3 #100 ea 07/16/22 mL 31 gauge x 5/16 (BD Insulin Syringe Ultra-Fine (half unit)) hydrocortisone 1 % topical cream 1 appl topical TID PRN skin 07/22/22 (Anti-Itch (hydrocortisone)) irritation 30 days #28.4 grams lorazepam 1 mg tablet (Ativan) 1 mg PO BID PRN anxiety #14 tabs 08/03/22 ondansetron 4 mg disintegrating 4 mg PO Q8H PRN nausea and 08/07/22 tablet vomiting #30 tabs diclofenac sodium 1 % topical gel 2 g topical QID PRN pain #100 grams 08/10/22 (Arthritis Pain (diclofenac)) ammonium lactate 12 % topical cream 1 appl topical BID #385 grams 08/13/22 blood pressure test kit-wrist #1 ea 08/13/22 hydrocortisone 2.5 % topical cream 1 appl OK BID PRN hemorrhoids #30 08/13/22 with perineal applicator grams (Proctosol HC) cyclobenzaprine 10 mg tablet 10 mg PO TID #90 tabs 08/20/22 duloxetine 60 mg capsule,delayed 90 mg PO DAILY 90 days #135 caps 08/24/22 release blood sugar diagnostic (FreeStyle #100 ea 09/01/22 Lite Strips) blood-glucose meter (FreeStyle #1 ea 09/01/22 Lite Meter kit) walker #1 ea 09/01/22 alcohol swabs (Alcohol Prep Pads) 1 pad topical .once a day 90 days 09/04/22 #100 ea clotrimazole 1 % topical cream 1 appl topical BID 4 weeks #30 09/04/22 grams metformin 500 mg tablet 500 mg PO BID #180 tabs 09/04/22 amlodipine 10 mg tablet 10 mg PO DAILY #90 tabs 09/15/22 meclizine 25 mg tablet 25 mg PO TID PRN dizziness 30 days 09/23/22 #90 tabs albuterol sulfate 2.5 mg/3 mL 2.5 mg (3 mL) inhalation QID PRN 10/01/22 (0.083 %) solution for nebulization shortness of breath or wheezing #75 mL nystatin 100,000 unit/gram topical 1 appl topical TID #30 grams 10/01/22 ointment acetaminophen 650 mg 650 mg PO Q8H PRN arthritis pain 10/12/22 tablet,extended release (Tylenol #90 tabs Arthritis Pain) guaifenesin 600 mg tablet, 600 mg PO Q12H PRN congestion 10 10/12/22 extended release 12 hr (Mucinex) days #20 tabs insulin glargine 100 unit/mL 10 unit (0.1 mL) subcut QPM 90 10/17/22 subcutaneous solution (Lantus days #9 mL U-100 Insulin) insulin syringe-needle U-100 0.5 #100 ea 10/17/22 mL 31 gauge x 5/16 (BD Insulin Syringe Ultra-Fine) insulin lispro 100 unit/mL 5 unit (0.05 mL) subcut TID 90 10/19/22 subcutaneous solution days #13.5 mL dulaglutide 0.75 mg/0.5 mL 0.75 mg (0.5 mL) subcut QWEEK #2 mL 10/20/22 subcutaneous pen injector (Trulicity) torsemide 20 mg tablet 40 mg PO BID 30 days #120 tabs 10/21/22 metoclopramide HCl 10 mg tablet 10 mg PO QIDACHS #120 tabs 11/10/22 (Reglan) pantoprazole 40 mg tablet,delayed 40 mg PO DAILY #30 tabs 11/10/22 release sennosides 8.6 mg capsule (senna) 17.2 mg PO BEDTIME constipation 30 11/10/22 days #60 caps simethicone 180 mg capsule 180 mg PO QID 30 days #120 caps 11/10/22 metolazone 2.5 mg tablet 2.5 mg PO MOWEFR 30 days #13 tabs 11/26/22 sumatriptan succinate 25 mg tablet 25 mg PO ONCE PRN migraine 12/03/22 headache #12 tabs clindamycin HCl 300 mg capsule 300 mg PO Q8H 7 days #21 caps 12/07/22 fluticasone propionate 230 2 puff PO Q12H #12 grams 12/16/22 mcg-salmeterol 21 mcg/actuation HFA inhaler (Advair HFA) dicyclomine 10 mg capsule 10 mg PO BID PRN cramping #60 caps 12/28/22 gabapentin 800 mg tablet 800 mg PO TID 30 days #90 tabs 12/28/22 sod phos mono-sod phos dibasic 1.5 4 tab PO Q15M 5 doses #32 tabs 12/28/22 gram (1.102-0.398) tablet (OsmoPrep) peg-electrolyte solution 420 gram 240 ml PO Q10M #4,000 mL 12/31/22 oral solution water for irrigation, sterile 1 irrig irrigation DAILY 30 days 01/04/23 #500 mL albuterol sulfate 90 mcg/actuation 2 puff PO Q6H PRN for wheezing #18 01/05/23 aerosol inhaler (Ventolin HFA) ea Allergies Allergy/AdvReac Type Severity Reaction Status Date / Time Penicillins Allergy Severe swelling Verified 01/06/23 14:09 adhesive tape [ADHESIVE TAPE] Allergy Intermediate RASH Verified 01/06/23 14:09 amoxicillin [AMOXICILLIN] Allergy Intermediate RASH,SWELLI Verified 01/06/23 14:09 NG ibuprofen [From Motrin] Allergy Intermediate Hypertensio Verified 01/06/23 14:09 n latex Allergy Intermediate Rash Verified 01/06/23 14:09 Review of Systems Constitutional: Comments: Chills. Positive recent general malaise and increasing fatigue Eyes: Comments: Occasional blurred vision recently. No ocular pain. No visual field defects or diplopia. Cardiovascular: Comments: Chest pain is described Respiratory: Comments: No dyspnea or cough Gastrointestinal: Comments: No abdominal pain or nausea or vomiting Genitourinary: Comments: No urinary symptoms Musculoskeletal: Comments: Bilateral calf pain. Total body pain with a history of fibromyalgia. Recent changes only include chest pain. Integumentary/Breasts: Comments: No rash Neurologic: Comments: No focal weakness PMFSH Past Medical History Medical History Arthropathy of facet joint Asthma Bilateral shoulder pain Chronic idiopathic constipation Chronic pain syndrome Degeneration, intervertebral disc, cervical Diabetes mellitus Disc degeneration, lumbar Fibromyalgia LUDY (generalized anxiety disorder) Gastroparesis Goiter Hyperlipidemia LDL goal <70 Hypothyroidism Incontinence Insomnia Left knee pain Lumbar pain Moderately severe recurrent major depression Morbid (severe) obesity due to excess calories Multiple air fluid levels of small intestine determined by X-ray Renal calculi Sleep apnea Small bowel motility disorder Spondylosis of cervical spine at multiple levels without myelopathy Spondylosis of lumbar region without myelopathy or radiculopathy Surgical History Delivery by section History of cholecystectomy History of esophagogastroduodenoscopy (EGD) History of hernia surgery History of hysterectomy History of knee replacement procedure of right knee Hx of colonoscopy Family History Family History Father Past heart attack Anxiety Mother MOF (multiple organ failure) Brother HIV (human immunodeficiency virus infection) Sister Ovarian cancer Lupus Bone cancer Uterine cancer Tumor Daughter Guillain-[place] Sister Lupus History of open heart surgery Family/Other Depression FH: mental illness Maternal Aunt Breast cancer Maternal Aunt Tumor Social History Social History Household Members: None Household Members Other:: Housing: Apartment Are you a primary care director to a significant other at home: No Do you presently have visiting nurse or other home services: Yes (PROSTHODONTIST/EDUCATOR) Alcohol intake: never Patient Tobacco Use Status: Never used Tobacco e-Cigarette/Vaping Use: Never Used Second Hand Smoke Exposure: Yes Advance Directives: Yes Advance Directives on File: Yes Advance Directives Date on File: 12/08/21 service: No Current occupational status: unemployed and disabled Cognitive needs: No Hearing needs: No Vision needs: No Physical Exam ED Vital Signs: Vital Signs - 24 hr 01/06/23 15:18 01/06/23 19:49 01/06/23 22:50 Temperature 99.2 F 97.9 F Pulse Rate 86 85 73 Respiratory Rate 18 17 18 Blood Pressure 117/56 L 93/54 L 96/47 L Pulse Oximetry 95 93 95 Oxygen Delivery Method Room Air Room Air Room Air BMI result Body Mass Index 38.5 Const Other: Awake alert and oriented. No acute distress Eyes Other: Pupils equal round reactive to light. Extraocular muscles intact Neck Other: Supple, full range of motion Chest Other: Left sternal border tender to palpation which reproduces symptoms Resp Other: Clear and equal bilaterally without wheezes rales or rhonchi Cardio Other: Regular rate rhythm without murmurs rubs or gallops GI Other: Soft nontender nondistended Skin Other: Warm pink and dry without rash Neuro Other: Strength equal bilaterally. No pronator drift. Patient does have intermittent seem to affect bilateral feet equally. Bilateral hands intermittently as well. Extrem Other: Bilateral calf tenderness but patient states that is chronic. No significant edema Medications Administered Discontinued Medications Generic Name Dose Route Start Last Admin Trade Name Freq PRN Reason Stop Dose Admin Acetaminophen 650 mg 01/06/23 17:01 01/06/23 17:05 Acetaminophen 325 Mg Tablet PO 01/06/23 17:02 650 mg ONCE ONE Administration Hydromorphone HCl 1 mg 01/06/23 22:37 01/06/23 22:47 Hydromorphone Hcl 1 Mg/Ml Syringe IVPUSH 01/06/23 22:38 1 mg ONCE ONE Administration Protocol Sodium Chloride 1,000 mls @ 999 mls/hr 01/06/23 16:00 01/06/23 20:22 Ns IV 01/06/23 17:00 Infused .Q1H1M RADHA Infusion Sodium Chloride 1,000 mls @ 999 mls/hr 01/06/23 17:15 01/06/23 20:22 Ns IV 01/06/23 18:15 Infused .Q1H1M RADHA Infusion Sodium Chloride 1,000 mls @ 999 mls/hr 01/06/23 19:30 01/06/23 21:36 Ns IV 01/06/23 20:30 Infused .Q1H1M RADHA Infusion Sodium Chloride 1,000 mls @ 999 mls/hr 01/06/23 21:45 01/06/23 22:47 Ns IV 01/06/23 22:45 999 mls/hr .Q1H1M RADHA Administration Iohexol 100 ml 01/06/23 22:28 01/06/23 22:29 Iohexol 350 Mg/Ml 100 Ml Infus..Btl IV 01/06/23 22:29 85 ml ONCE ONE Administration Ondansetron HCl 4 mg 01/06/23 15:55 01/06/23 17:03 Ondansetron Hcl 4 Mg/2 Ml Vial IVPUSH 01/06/23 15:56 4 mg ONCE ONE Administration Medical Decision Making Medical Decision Making MDM Narrative: Patient with near syncope in the setting of chest pain with recent vague malaise and increasing tremors. No evidence for seizure activity. Will rule out cardiac ischemia or acute coronary syndrome. CT scan with concern for mass or hemorrhage Labs to look for electrolyte imbalance or other causes of general malaise and tremor. No clinical evidence for sepsis at the moment. 20:32. Workup in the emergency department shows CBC with hemoglobin of 11.6 which is similar to prior results. White count of 13 which is also slightly lower than her baseline. Chemistry showed normal BUN is 21 with a creatinine of 0.8 consistent with dehydration. Her lactic acid initially is 2.9. After IV fluid is 2.2. LFTs are normal. Urinalysis is normal. On re-evaluation, however, her blood pressure is not lower than when she got here despite the IV fluids she has a systolic of 82 with a diastolic of 50. Of left leg pain now more than other pain. She has continues to have vague abdominal and chest discomfort. Her D-dimer is negative however. It makes PE less likely although does not rule it out completely especially in this context. She could also have an intra-abdominal process. Given the severity of her hypotension, I will add on CT scan of chest and abdomen. Duplex of left leg as well. 23:23. Ultrasound of the leg is normal. CT scan of chest and abdomen show no acute abnormalities. Patient is feeling much better after IV fluids. She is seeing her home medications. All home medications ordered with the exception of hypertension meds. She is stable for discharge home Lab Data 01/06/23 16:34 01/06/23 16:34 Labs: Lab Results 01/06/23 01/06/23 01/06/23 Range/Units 16:34 16:34 16:34 WBC 13.0 H (4.8-10.8) X10*3/uL RBC 5.11 (4.20-5.50) X10*6/uL Hgb 11.6 L (12.0-16.0) g/dl Hct 38.0 (37.0-47.0) % MCV 74.4 L (80.0-98.0) fL MCH 22.7 L (27.0-33.0) pg MCHC 30.5 L (31.0-35.0) g/dl RDW 17.3 H (11.0-16.0) % Plt Count 288 (160-400) X10*3/uL MPV 10.9 (9.4-12.3) fL Immature Gran % (Auto) 0.4 (0.0-0.4) % Neut % (Auto) 74.3 H (45-73) % Lymph % (Auto) 16.9 L (20-40) % Leslie % (Auto) 6.0 (2-11) % Eos % (Auto) 2.2 (0-4) % Baso % (Auto) 0.2 (0-2) % Lymph # (Auto) 2.2 (1.2-4.9) X10*3/uL Leslie # (Auto) 0.8 (0.1-1.2) X10*3/uL Eos # (Auto) 0.3 (0.0-0.4) X10*3/uL Baso # (Auto) 0.0 (0.0-0.2) X10*3/uL Abs Immat Gran (auto) 0.05 H (0.00-0.03) X10*3/uL Absolute Neuts (auto) 9.7 H (2.0-8.3) x10*3/uL Absolute Nucleated RBC 0.000 (0.0-0.012) X10*3/uL Nucleated RBC % (auto) 0.0 (0.0-0.2) /100WBC PT 12.6 (10.0-13.1) SEC INR 1.1 (0.9-1.1) D-Dimer High Sensitivty 157 NG/ML Sodium 141 (135-145) mmol/L Potassium 3.4 (3.3-5.1) mmol/L Chloride 98 (96-108) mmol/L Carbon Dioxide 31 H (22-29) mmol/L Anion Gap 15 (12-20) BUN 21 H (9-16) mg/dL Creatinine 0.81 (0.5-1.4) mg/dL Estim Creat Clear Calc 99.9 Estimated GFR > 60 Random Glucose 107 (60-115) mg/dL Lactic Acid (0.5-2.0) mmol/L Lactic Acid F/U @ 2Hr (0.5-2.0) mmol/L Lactic Acid F/U @ 4Hr (0.5-2.0) mmol/L Calcium 9.3 (8.4-10.2) mg/dL Total Bilirubin 0.4 (0.0-1.0) mg/dL AST 16 (5-31) U/L ALT 19 (0-31) U/L Alkaline Phosphatase 102 (39-117) U/L Ammonia (13-55) umol/L Troponin I High Sens (<3.5-17.0) ng/L B-Natriuretic Peptide (<100) pg/mL Total Protein 6.8 (6.5-8.0) g/dL Albumin 3.7 (3.5-5.0) g/dL TSH (0.32-4.0) uIU/mL Urine Color Urine Appearance Urine pH (5.0-9.0) Ur Specific [place] (1.005-1.025) Urine Protein (Neg-Trace) mg/dL Urine Glucose (UA) (Negative) mg/dL Urine Ketones (Negative) mg/dL Urine Blood (Negative) Urine Nitrite (Negative) Ur Leukocyte Esterase (Negative) Urine RBC (0-2) /HPF Urine WBC (0-5) /HPF Ur Squamous Epith Cells (0-2) /HPF Urine Bacteria (None Seen) Hyaline Casts (0-2) /LPF COVID-19 ([facility]) (Negative) COVID-19 Clin Com 01/06/23 01/06/23 01/06/23 Range/Units 16:34 16:34 16:34 WBC (4.8-10.8) X10*3/uL RBC (4.20-5.50) X10*6/uL Hgb (12.0-16.0) g/dl Hct (37.0-47.0) % MCV (80.0-98.0) fL MCH (27.0-33.0) pg MCHC (31.0-35.0) g/dl RDW (11.0-16.0) % Plt Count (160-400) X10*3/uL MPV (9.4-12.3) fL Immature Gran % (Auto) (0.0-0.4) % Neut % (Auto) (45-73) % Lymph % (Auto) (20-40) % Leslie % (Auto) (2-11) % Eos % (Auto) (0-4) % Baso % (Auto) (0-2) % Lymph # (Auto) (1.2-4.9) X10*3/uL Leslie # (Auto) (0.1-1.2) X10*3/uL Eos # (Auto) (0.0-0.4) X10*3/uL Baso # (Auto) (0.0-0.2) X10*3/uL Abs Immat Gran (auto) (0.00-0.03) X10*3/uL Absolute Neuts (auto) (2.0-8.3) x10*3/uL Absolute Nucleated RBC (0.0-0.012) X10*3/uL Nucleated RBC % (auto) (0.0-0.2) /100WBC PT (10.0-13.1) SEC INR (0.9-1.1) D-Dimer High Sensitivty NG/ML Sodium (135-145) mmol/L Potassium (3.3-5.1) mmol/L Chloride (96-108) mmol/L Carbon Dioxide (22-29) mmol/L Anion Gap (12-20) BUN (9-16) mg/dL Creatinine (0.5-1.4) mg/dL Estim Creat Clear Calc Estimated GFR Random Glucose (60-115) mg/dL Lactic Acid 2.9 H* (0.5-2.0) mmol/L Lactic Acid F/U @ 2Hr (0.5-2.0) mmol/L Lactic Acid F/U @ 4Hr (0.5-2.0) mmol/L Calcium (8.4-10.2) mg/dL Total Bilirubin (0.0-1.0) mg/dL AST (5-31) U/L ALT (0-31) U/L Alkaline Phosphatase (39-117) U/L Ammonia (13-55) umol/L Troponin I High Sens < 2.7 (<3.5-17.0) ng/L B-Natriuretic Peptide (<100) pg/mL Total Protein (6.5-8.0) g/dL Albumin (3.5-5.0) g/dL TSH (0.32-4.0) uIU/mL Urine Color Urine Appearance Urine pH (5.0-9.0) Ur Specific [place] (1.005-1.025) Urine Protein (Neg-Trace) mg/dL Urine Glucose (UA) (Negative) mg/dL Urine Ketones (Negative) mg/dL Urine Blood (Negative) Urine Nitrite (Negative) Ur Leukocyte Esterase (Negative) Urine RBC (0-2) /HPF Urine WBC (0-5) /HPF Ur Squamous Epith Cells (0-2) /HPF Urine Bacteria (None Seen) Hyaline Casts (0-2) /LPF COVID-19 ([facility]) Negative (Negative) COVID-19 Clin Com See Note 01/06/23 01/06/23 01/06/23 Range/Units 16:34 16:34 16:34 WBC (4.8-10.8) X10*3/uL RBC (4.20-5.50) X10*6/uL Hgb (12.0-16.0) g/dl Hct (37.0-47.0) % MCV (80.0-98.0) fL MCH (27.0-33.0) pg MCHC (31.0-35.0) g/dl RDW (11.0-16.0) % Plt Count (160-400) X10*3/uL MPV (9.4-12.3) fL Immature Gran % (Auto) (0.0-0.4) % Neut % (Auto) (45-73) % Lymph % (Auto) (20-40) % Leslie % (Auto) (2-11) % Eos % (Auto) (0-4) % Baso % (Auto) (0-2) % Lymph # (Auto) (1.2-4.9) X10*3/uL Leslie # (Auto) (0.1-1.2) X10*3/uL Eos # (Auto) (0.0-0.4) X10*3/uL Baso # (Auto) (0.0-0.2) X10*3/uL Abs Immat Gran (auto) (0.00-0.03) X10*3/uL Absolute Neuts (auto) (2.0-8.3) x10*3/uL Absolute Nucleated RBC (0.0-0.012) X10*3/uL Nucleated RBC % (auto) (0.0-0.2) /100WBC PT (10.0-13.1) SEC INR (0.9-1.1) D-Dimer High Sensitivty NG/ML Sodium (135-145) mmol/L Potassium (3.3-5.1) mmol/L Chloride (96-108) mmol/L Carbon Dioxide (22-29) mmol/L Anion Gap (12-20) BUN (9-16) mg/dL Creatinine (0.5-1.4) mg/dL Estim Creat Clear Calc Estimated GFR Random Glucose (60-115) mg/dL Lactic Acid (0.5-2.0) mmol/L Lactic Acid F/U @ 2Hr (0.5-2.0) mmol/L Lactic Acid F/U @ 4Hr (0.5-2.0) mmol/L Calcium (8.4-10.2) mg/dL Total Bilirubin (0.0-1.0) mg/dL AST (5-31) U/L ALT (0-31) U/L Alkaline Phosphatase (39-117) U/L Ammonia 29 (13-55) umol/L Troponin I High Sens (<3.5-17.0) ng/L B-Natriuretic Peptide < 10 (<100) pg/mL Total Protein (6.5-8.0) g/dL Albumin (3.5-5.0) g/dL TSH 0.40 (0.32-4.0) uIU/mL Urine Color Urine Appearance Urine pH (5.0-9.0) Ur Specific [place] (1.005-1.025) Urine Protein (Neg-Trace) mg/dL Urine Glucose (UA) (Negative) mg/dL Urine Ketones (Negative) mg/dL Urine Blood (Negative) Urine Nitrite (Negative) Ur Leukocyte Esterase (Negative) Urine RBC (0-2) /HPF Urine WBC (0-5) /HPF Ur Squamous Epith Cells (0-2) /HPF Urine Bacteria (None Seen) Hyaline Casts (0-2) /LPF COVID-19 ([facility]) (Negative) COVID-19 Clin Com 01/06/23 01/06/23 01/06/23 Range/Units 20:07 20:07 22:35 WBC (4.8-10.8) X10*3/uL RBC (4.20-5.50) X10*6/uL Hgb (12.0-16.0) g/dl Hct (37.0-47.0) % MCV (80.0-98.0) fL MCH (27.0-33.0) pg MCHC (31.0-35.0) g/dl RDW (11.0-16.0) % Plt Count (160-400) X10*3/uL MPV (9.4-12.3) fL Immature Gran % (Auto) (0.0-0.4) % Neut % (Auto) (45-73) % Lymph % (Auto) (20-40) % Leslie % (Auto) (2-11) % Eos % (Auto) (0-4) % Baso % (Auto) (0-2) % Lymph # (Auto) (1.2-4.9) X10*3/uL Leslie # (Auto) (0.1-1.2) X10*3/uL Eos # (Auto) (0.0-0.4) X10*3/uL Baso # (Auto) (0.0-0.2) X10*3/uL Abs Immat Gran (auto) (0.00-0.03) X10*3/uL Absolute Neuts (auto) (2.0-8.3) x10*3/uL Absolute Nucleated RBC (0.0-0.012) X10*3/uL Nucleated RBC % (auto) (0.0-0.2) /100WBC PT (10.0-13.1) SEC INR (0.9-1.1) D-Dimer High Sensitivty NG/ML Sodium (135-145) mmol/L Potassium (3.3-5.1) mmol/L Chloride (96-108) mmol/L Carbon Dioxide (22-29) mmol/L Anion Gap (12-20) BUN (9-16) mg/dL Creatinine (0.5-1.4) mg/dL Estim Creat Clear Calc Estimated GFR Random Glucose (60-115) mg/dL Lactic Acid (0.5-2.0) mmol/L Lactic Acid F/U @ 2Hr 2.2 H* (0.5-2.0) mmol/L Lactic Acid F/U @ 4Hr 1.6 (0.5-2.0) mmol/L Calcium (8.4-10.2) mg/dL Total Bilirubin (0.0-1.0) mg/dL AST (5-31) U/L ALT (0-31) U/L Alkaline Phosphatase (39-117) U/L Ammonia (13-55) umol/L Troponin I High Sens (<3.5-17.0) ng/L B-Natriuretic Peptide (<100) pg/mL Total Protein (6.5-8.0) g/dL Albumin (3.5-5.0) g/dL TSH (0.32-4.0) uIU/mL Urine Color Yellow Urine Appearance Cloudy Urine pH 5.5 (5.0-9.0) Ur Specific [place] >= 1.030 H (1.005-1.025) Urine Protein Trace (Neg-Trace) mg/dL Urine Glucose (UA) Negative (Negative) mg/dL Urine Ketones Trace (Negative) mg/dL Urine Blood Negative (Negative) Urine Nitrite Negative (Negative) Ur Leukocyte Esterase Trace H (Negative) Urine RBC 0-2 (0-2) /HPF Urine WBC 0-5 (0-5) /HPF Ur Squamous Epith Cells 3-5 (0-2) /HPF Urine Bacteria Trace (None Seen) Hyaline Casts 3-5 (0-2) /LPF COVID-19 ([facility]) (Negative) COVID-19 Clin Com Discharge Plan Discharge Clinical Impression: Acute dehydration, Acute hypotension Patient Disposition: Home, Self-Care Instructions: Dehydration (ED), Hypotension (ED), How to Take a Blood Pressure (ED) Additional Instructions: Your workup today showed normal CT scans. Her blood pressure was low but improved after IV fluids. Your lab work showed some dehydration but otherwise has was negative for other acute abnormalities. Return if worse. Drink plenty of liquids Take your current medications as prescribed. We gave you your evening medications with the exception of anything lower your blood pressure. You may resume these tomorrow as long as her pressure at home is normal again. Prescriptions: No Action (DME) lancets [FreeStyle Lancets] 28 gauge misc See Rx Instructions .Route Qty: 100 6RF Rx Instructions: BID (DME) FreeStyle Julianne 2 Sensor Kit See Rx Instructions .Route Qty: 1 2RF Rx Instructions: As directed (DME) diabetic supplies, miscellan. Misc See Rx Instructions .Route Qty: 1 0RF Rx Instructions: As directed (DME) heating pads Pad See Rx Instructions .Route Qty: 1 0RF Rx Instructions: As directed sennosides [senna] 8.6 mg tablet 17.2 mg PO BEDTIME Qty: 60 3RF Hold Instructions: Doctor's Order (DME) Gel mattress overlay Misc See Rx Instructions .Route Qty: 1 0RF Rx Instructions: As directed (DME) Toilet seat riser See Rx Instructions .Route .MEDSUPPLY Qty: 1 0RF Rx Instructions: As directed (DME) misc[facility] See Rx Instructions .ROUTE .MEDSUPPLY Qty: 1 0RF Rx Instructions: toilet seat elevator (DME) pen needle, diabetic [BD Ultra-Fine Mini Pen Needle] 31 gauge x 3/16 needle See Rx Instructions .Route Qty: 100 0RF Rx Instructions: As directed (DME) diabetic shoes and inserts See Rx Instructions .Route .MEDSUPPLY Qty: 1 1RF Rx Instructions: As directed levothyroxine 112 mcg tablet 112 mcg PO DAILY 90 Days Qty: 90 1RF (DME) BD Insulin Syringe (half unit) 0.3 mL 31 gauge x 5/16 syringe See Rx Instructions .Route Qty: 100 3RF Rx Instructions: Use 1 needle once a day hydrocortisone [Anti-Itch (HC)] 1 % cream 1 appl topical TID PRN (Reason: skin irritation) 30 Days Qty: 28.4 0RF duloxetine 60 mg capsule,delayed release(DR/EC) 90 mg PO DAILY 90 Days Qty: 135 1RF (DME) blood-glucose meter [FreeStyle Lite Meter] Kit See Rx Instructions .Route Qty: 1 0RF Rx Instructions: As directed (DME) FreeStyle Lite Strips Strip See Rx Instructions .Route Qty: 100 3RF Rx Instructions: use 1 test strip once a day (DME) [place] [facility] [place] Instructions .Route Qty: 1 0RF Rx Instructions: walker with seat and wheels metformin 500 mg tablet 500 mg PO BID Qty: 180 2RF clotrimazole 1 % cream 1 appl topical BID 28 Days Qty: 30 1RF alcohol swabs [Alcohol Prep Pads] Pads, Medicated 1 pad topical .once a day 90 Days Qty: 100 0RF amlodipine 10 mg tablet 10 mg PO DAILY Qty: 90 1RF meclizine 25 mg tablet 25 mg PO TID PRN (Reason: dizziness) 30 Days Qty: 90 0RF guaifenesin [Mucinex] 600 mg tablet extended release 12hr 600 mg PO Q12H PRN (Reason: congestion) 10 Days Qty: 20 0RF acetaminophen [Tylenol Arthritis Pain] 650 mg tablet extended release 650 mg PO Q8H PRN (Reason: arthritis pain) Qty: 90 3RF insulin glargine [Lantus U-100 Insulin] 100 unit/mL solution 10 unit subcut QPM 90 Days Qty: 9 1RF (DME) insulin syringe-needle U-100 [BD Insulin Syringe Ultra-Fine] 0.5 mL 31 gauge x 5/16 syringe See Rx Instructions .Route Qty: 100 3RF Rx Instructions: Use 1 three times a day insulin lispro 100 unit/mL solution 5 unit subcut TID 90 Days Qty: 13.5 2RF metolazone 2.5 mg tablet 2.5 mg PO MOWEFR 30 Days Qty: 13 3RF sumatriptan succinate 25 mg tablet 25 mg PO ONCE PRN (Reason: migraine headache) Qty: 12 1RF clindamycin HCl 300 mg capsule 300 mg PO Q8H 7 Days Qty: 21 0RF Advair HFA 230-21 mcg/actuation HFA aerosol inhaler 2 puff PO Q12H Qty: 12 6RF dicyclomine 10 mg capsule 10 mg PO BID PRN (Reason: cramping) Qty: 60 3RF gabapentin 800 mg tablet 800 mg PO TID 30 Days Qty: 90 0RF OsmoPrep 1.5 gram tablet 4 tab PO Q15M Qty: 32 0RF Rx Instructions: administer with 240 mL of clear fluid peg-electrolyte soln 420 gram recon soln 240 ml PO Q10M Qty: 4000 0RF Rx Instructions: until fecal effluent is clear water for irrigation, sterile Solution 1 irrig irrigation DAILY 30 Days Qty: 500 6RF albuterol sulfate [Ventolin HFA] 90 mcg/actuation HFA aerosol inhaler 2 puff PO Q6H PRN (Reason: for wheezing) Qty: 18 1RF lorazepam [Ativan] 1 mg tablet 1 mg PO BID PRN (Reason: anxiety) Qty: 14 0RF ondansetron 4 mg tablet,disintegrating 4 mg PO Q8H PRN (Reason: nausea and vomiting) Qty: 30 0RF (DME) Shower Chair Misc See Rx Instructions .Route Qty: 1 0RF Rx Instructions: As directed (DME) vaporizers Misc See Rx Instructions .ROUTE .MEDSUPPLY Qty: 1 Rx Instructions: As directed prochlorperazine maleate 10 mg tablet 10 mg PO Q8H PRN (Reason: Nausea) lidocaine 4 % cream 1 appl topical BID PRN (Reason: pain) Qty: 30 1RF atorvastatin 10 mg tablet 10 mg PO BEDTIME 90 Days Qty: 90 1RF diclofenac sodium [Arthritis Pain (diclofenac)] 1 % gel 2 g topical QID PRN (Reason: pain) Qty: 100 0RF Rx Instructions: apply to neck clonidine HCl 0.1 mg tablet 0.1 mg PO TID PRN (Reason: Agitation or Anxiety) mirtazapine 30 mg tablet 30 mg PO BEDTIME metoprolol tartrate 50 mg tablet 50 mg PO BID nystatin 100,000 unit/gram ointment 1 appl topical TID Qty: 30 3RF albuterol sulfate 2.5 mg /3 mL (0.083 %) solution for nebulization 2.5 mg inhalation QID PRN (Reason: shortness of breath or wheezing) Qty: 75 0RF (DME) insulin syringe-needle U-100 [BD Insulin Syringe Ultra-Fine] 0.3 mL 31 gauge x 5/16 syringe See Rx Instructions .ROUTE .MEDSUPPLY Qty: 10 Rx Instructions: As directed Trulicity 0.75 mg/0.5 mL pen injector 0.75 mg subcut QWEEK Qty: 2 5RF lorazepam 0.5 mg tablet 0.5 mg PO DAILY PRN hydrocortisone [Proctosol HC] 2.5 % cream with perineal applicator 1 appl OK BID PRN (Reason: hemorrhoids) Qty: 30 3RF ammonium lactate 12 % cream 1 appl topical BID Qty: 385 6RF (DME) blood pressure test kit-wrist Kit See Rx Instructions .ROUTE .MEDSUPPLY Qty: 1 0RF Rx Instructions: to check blood pressure cyclobenzaprine 10 mg tablet 10 mg PO TID Qty: 90 0RF metoclopramide HCl [Reglan] 10 mg tablet 10 mg PO QIDACHS Qty: 120 6RF Rx Instructions: Provider aware possible interactions and is monitoring patient pantoprazole 40 mg tablet,delayed release (DR/EC) 40 mg PO DAILY Qty: 30 6RF senna 8.6 mg capsule 17.2 mg PO BEDTIME 30 Days Qty: 60 3RF simethicone 180 mg capsule 180 mg PO QID 30 Days Qty: 120 3RF Rx Instructions: after meals torsemide 20 mg tablet 40 mg PO BID 30 Days Qty: 120 6RF
[2023-01-06 16:45] LABS: MANUAL DIFF FLAG NO
[2023-01-06 16:46] LABS: Basophils Percent Auto 0.2 % (0-2); Eosinophils Absolute Auto 0.3 X10*3/uL (0.0-0.4); Eosinophils Percent Auto 2.2 % (0-4); Hemoglobin 11.6 g/dl (12.0-16.0); Imm Gran Abs Auto 0.05 X10*3/uL (0.00-0.03); Imm Gran Pct Auto 0.4 % (0.0-0.4); Lymphocytes Absolute Auto 2.2 X10*3/uL (1.2-4.9); Lymphocytes Percent Auto 16.9 % (20-40); Mean Corpuscular HGB Conc 30.5 g/dl (31.0-35.0); Mean Corpuscular Hemoglobin 22.7 pg (27.0-33.0); Mean Corpuscular Volume 74.4 fL (80.0-98.0); Mean Platelet Volume 10.9 fL (9.4-12.3); Monocytes Absolute Auto 0.8 X10*3/uL (0.1-1.2); Neutrophils Absolute Auto 9.7 x10*3/uL (2.0-8.3); Neutrophils Percent Auto 74.3 % (45-73); Platelet Count 288 X10*3/uL (160-400); Red Blood Count 5.11 X10*6/uL (4.20-5.50); Red Cell Distribution Width 17.3 % (11.0-16.0)
[2023-01-06 16:55] LABS: INTERNATIONAL NORM RATIO 1.1 (0.9-1.1); Prothrombin Time 12.6 SEC (10.0-13.1)
[2023-01-06 16:56] LABS: Ammonia 29 umol/L (13-55)
[2023-01-06 16:57] LABS: D Dimer High Sensitivity 157 NG/ML
[2023-01-06] MEDS: 0.9 % Sodium Chloride 1,000 ML 999 ML IV ×4 (17:02→22:47)
[2023-01-06] MEDS: ondansetron HCL 4 MG/2 ML VIAL IVPUSH (17:03)
[2023-01-06 17:04] LABS: Alanine Aminotransferase 19 U/L (0-31); Albumin Level 3.7 g/dL (3.5-5.0); Alkaline Phosphatase 102 U/L (39-117); Anion Gap 15 (12-20); Aspartate Amino Transferase 16 U/L (5-31); Bilirubin Total 0.4 mg/dL (0.0-1.0); Blood Urea Nitrogen 21 mg/dL (9-16); Calcium 9.3 mg/dL (8.4-10.2); Carbon Dioxide 31 mmol/L (22-29); Chloride 98 mmol/L (96-108); Creatinine Clr Calc Pharmacy 99.9; Estimated Glomerular Filt Rate > 60; Glucose Random 107 mg/dL (60-115); Potassium 3.4 mmol/L (3.3-5.1); Sodium 141 mmol/L (135-145); Total Protein 6.8 g/dL (6.5-8.0)
[2023-01-06] MEDS: Acetaminophen 325 MG TABLET 650 MG PO (17:05)
[2023-01-06 17:09] LABS: B Type Natriuretic Peptide < 10 pg/mL (<100); COVID-19 Test Negative (Negative); IDNOW Serial# 55D5AD1C
[2023-01-06 17:12] LABS: Lactic Acid 2.9 mmol/L (0.5-2.0); Troponin-I High Sensitivity < 2.7 ng/L (<3.5-17.0)
[2023-01-06 18:43] LABS: Reflex Lactate? Lactic Acid Added
[2023-01-06 19:49] VITALS: BP 93/54; PULSE 85; RESP 17; TEMP 36.6; O2SAT 93
[2023-01-06 20:15] LABS: Appearance Urine Cloudy; Color Urine Yellow; Glucose Urine UA Negative (Negative); Leukocyte Esterase Urine Trace (Negative); Nitrite Urine Negative (Negative); PH 5.5 (5.0-9.0); Specific Gravity - Urine >= 1.030 (1.005-1.025); UMIC TRIGGER UACC YES; Urine Blood Negative (Negative); Urine Ketones Trace mg/dL (Negative); Urine Protein Trace mg/dL (Neg-Trace)
[2023-01-06 20:17] LABS: Bacteria Urine Trace (None Seen); RBC Urine 0-2 /HPF (0-2); WBC Urine 0-5 /HPF (0-5)
[2023-01-06 20:25] LABS: ~Lactic Acid-LAB USE ONLY 2.2 mmol/L (0.5-2.0)
--- NOTE | 2023-01-06 21:00 | PC.NURSE ---
pt assessed, reported severe headache and pain behind both legs. b/p 80-90 sbp. Aware. 2nd liter of NS infusing. bedside ultrasound in progress
[2023-01-06 22:10] LABS: Reflex Lactate? 2 Y
[2023-01-06] MEDS: iohexoL 350 MG/ML 100 ML INFUS..BTL IV (22:29)
[2023-01-06] MEDS: HYDROmorphone HCl 1 MG/ML SYRINGE IVPUSH (22:47)
[2023-01-06 22:50] VITALS: BP 96/47; PULSE 73; RESP 18; O2SAT 95
[2023-01-06 22:50] LABS: ~Lactic Acid-LAB USE ONLY 1.6 mmol/L (0.5-2.0)
[2023-01-06] MEDS: Gabapentin 400 MG CAPSULE 800 MG PO (23:33)
[2023-01-06] MEDS: Cyclobenzaprine HCl 10 MG TABLET PO (23:33)
[2023-01-06] MEDS: metFORMIN HCl 500 MG TABLET PO (23:34)
[2023-01-06] MEDS: Meclizine HCl 25 MG TABLET PO (23:34)
[2023-01-06] MEDS: hydrOXYzine HCL 25 MG TABLET PO (23:34)
[2023-01-06] MEDS: Dicyclomine HCl 10 MG CAPSULE PO (23:34)
[2023-01-06] MEDS: Ondansetron ODT 4 MG TAB.RAPDIS TRANSLINGU (23:34)
[2023-01-06] MEDS: Mirtazapine 15 MG TABLET PO (23:34)
[2023-01-06] MEDS: LORazepam 1 MG TABLET PO (23:34)
[2023-01-06] MEDS: Metoclopramide HCl 10 MG TABLET PO (23:34)
== END 2023-01-06 23:48 | disposition home or self-care (01) ==
PROVIDERS: Emergency Provider Emergency Medicine; PCP Internal Medicine
DX: E86.0 Dehydration (principal); I95.9 Hypotension, unspecified; M79.605 Pain in left leg; R07.9 Chest pain, unspecified; Z20.822 Contact with and (suspected) exposure to COVID-19; E11.9 Type 2 diabetes mellitus without complications; E78.5 Hyperlipidemia, unspecified; E66.01 Morbid (severe) obesity due to excess calories; Z68.38 Body mass index [BMI] 38.0-38.9, adult; Z79.4 Long term (current) use of insulin; Z79.899 Other long term (current) drug therapy; Z79.02 Long term (current) use of antithrombotics/antiplatelets
CPT/HCPCS: 36415; 70450; 71046; 71275; 74177; 80053; 81001; 82140; 83605; 83880; 84443; 84484; 85025; 85379; 85610; 87040; 87635; 93005; 93971; 96361; 96374; 96375; 99212; 99285; J1170; J2405; Q9967

== ENCOUNTER 2023-01-12 14:09 | Emergency (ER) | payer OTHER, SELFPAY ==
[2023-01-12 14:18] VITALS: BP 157/82; PULSE 81; RESP 18; TEMP 36.6; O2SAT 98; BMI 38.5
--- NOTE | 2023-01-12 14:18 | ED_ITS ---
HPI - Headache General Chief Complaint: Head Injury <KAYLA Alcantara - Last Filed: 01/12/23 14:23> Stated Complaint: Migraine <KAYLA Alcantara - Last Filed: 01/12/23 14:23> Time Seen by Provider: 01/12/23 18:35 <KAYLA Alcantara - Last Filed: 01/12/23 14:23> Source: patient <Clau Neal MD - Last Filed: 01/12/23 22:11> Mode of arrival: ambulatory <Clau Neal MD - Last Filed: 01/12/23 22:11> Limitations: no limitations <Clau Neal MD - Last Filed: 01/12/23 22:11> History of Present Illness HPI Narrative: Patient comes to the emergency room complaining of a migraine headache that started approximately 1 week ago. Patient states that the pain is on top of the head radiating towards the front. Patient states that she is very sensitive to light, complaining of nausea. Patient has taken multiple doses of Imitrex, ibuprofen, Tylenol throughout the week with no relief. <Clau Neal MD - Last Filed: 01/12/23 22:11> Related Data Home Medications: Home Medications Medication Instructions Recorded Confirmed vaporizers #1 ea 10/10/20 01/07/23 clonidine HCl 0.1 mg tablet 0.1 mg PO TID PRN Agitation or 09/19/21 01/07/23 Anxiety mirtazapine 30 mg tablet 30 mg PO BEDTIME 06/23/22 01/07/23 metoprolol tartrate 50 mg tablet 50 mg PO BID 10/01/22 01/07/23 insulin syringe-needle U-100 0.3 #10 ea 10/20/22 01/07/23 mL 31 gauge x 5/16 (BD Insulin Syringe Ultra-Fine) hydroxyzine HCl 50 mg tablet 50 mg PO BEDTIME 01/07/23 01/07/23 Previous Rx's Medication Instructions Recorded lancets 28 gauge (FreeStyle #100 ea 05/23/21 Lancets) diabetic supplies, miscellan. #1 ea 12/03/21 flash glucose sensor (FreeStyle #1 ea 12/03/21 Julianne 2 Sensor kit) heating pads #1 ea 01/21/22 Gel mattress overlay #1 ea 01/28/22 Toilet seat riser #1 ea 03/05/22 miscellaneous medical supply #1 ea 03/10/22 atorvastatin 10 mg tablet 10 mg PO BEDTIME 90 days #90 tabs 03/16/22 pen needle, diabetic 31 gauge x #100 ea 04/10/22 3/16 (BD Ultra-Fine Mini Pen Needle) diabetic shoes and inserts #1 ea 05/06/22 Shower Chair #1 ea 05/11/22 levothyroxine 112 mcg tablet 112 mcg PO DAILY 90 days #90 tabs 06/21/22 insulin syr/ndl U100 half desean 0.3 #100 ea 07/16/22 mL 31 gauge x 5/16 (BD Insulin Syringe Ultra-Fine (half unit)) hydrocortisone 1 % topical cream 1 appl topical TID PRN skin 07/22/22 (Anti-Itch (hydrocortisone)) irritation 30 days #28.4 grams lorazepam 1 mg tablet (Ativan) 1 mg PO BID PRN anxiety #14 tabs 08/03/22 ondansetron 4 mg disintegrating 4 mg PO Q8H PRN nausea and 08/07/22 tablet vomiting #30 tabs blood pressure test kit-wrist #1 ea 08/13/22 hydrocortisone 2.5 % topical cream 1 appl [place] BID PRN hemorrhoids #30 08/13/22 with perineal applicator grams (Proctosol HC) cyclobenzaprine 10 mg tablet 10 mg PO TID #90 tabs 08/20/22 duloxetine 60 mg capsule,delayed 90 mg PO DAILY 90 days #135 caps 08/24/22 release blood sugar diagnostic (FreeStyle #100 ea 09/01/22 Lite Strips) blood-glucose meter (FreeStyle #1 ea 09/01/22 Lite Meter kit) walker #1 ea 09/01/22 alcohol swabs (Alcohol Prep Pads) 1 pad topical .once a day 90 days 09/04/22 #100 ea metformin 500 mg tablet 500 mg PO BID #180 tabs 09/04/22 amlodipine 10 mg tablet 10 mg PO DAILY #90 tabs 09/15/22 albuterol sulfate 2.5 mg/3 mL 2.5 mg (3 mL) inhalation QID PRN 10/01/22 (0.083 %) solution for nebulization shortness of breath or wheezing #75 mL acetaminophen 650 mg 650 mg PO Q8H PRN arthritis pain 10/12/22 tablet,extended release (Tylenol #90 tabs Arthritis Pain) insulin syringe-needle U-100 0.5 #100 ea 10/17/22 mL 31 gauge x 5/16 (BD Insulin Syringe Ultra-Fine) dulaglutide 0.75 mg/0.5 mL 0.75 mg (0.5 mL) subcut QWEEK #2 mL 10/20/22 subcutaneous pen injector (Trulicity) torsemide 20 mg tablet 40 mg PO BID 30 days #120 tabs 10/21/22 metoclopramide HCl 10 mg tablet 10 mg PO QIDACHS #120 tabs 11/10/22 (Reglan) sennosides 8.6 mg capsule (senna) 17.2 mg PO BEDTIME constipation 30 11/10/22 days #60 caps sumatriptan succinate 25 mg tablet 25 mg PO ONCE PRN migraine 12/03/22 headache #12 tabs fluticasone propionate 230 2 puff PO Q12H #12 grams 12/16/22 mcg-salmeterol 21 mcg/actuation HFA inhaler (Advair HFA) dicyclomine 10 mg capsule 10 mg PO BID PRN cramping #60 caps 12/28/22 gabapentin 800 mg tablet 800 mg PO TID 30 days #90 tabs 12/28/22 sod phos mono-sod phos dibasic 1.5 4 tab PO Q15M 5 doses #32 tabs 12/28/22 gram (1.102-0.398) tablet (OsmoPrep) peg-electrolyte solution 420 gram 240 ml PO Q10M #4,000 mL 12/31/22 oral solution water for irrigation, sterile 1 irrig irrigation DAILY 30 days 01/04/23 #500 mL albuterol sulfate 90 mcg/actuation 2 puff PO Q6H PRN for wheezing #18 01/05/23 aerosol inhaler (Ventolin HFA) ea cane #1 ea 01/07/23 insulin glargine 100 unit/mL 15 unit (0.15 mL) subcut QPM 90 01/07/23 subcutaneous solution (Lantus days #13.5 mL U-100 Insulin) meclizine 25 mg tablet 25 mg PO TID PRN dizziness 90 days 01/07/23 #270 tabs insulin lispro 100 unit/mL 5 unit (0.05 mL) subcut TID 90 01/08/23 subcutaneous solution days #13.5 mL metoclopramide HCl 5 mg tablet 5 mg PO BID PRN nausea and 01/12/23 (Reglan) vomiting #14 tabs sumatriptan succinate 50 mg tablet 50 mg PO Q2-4H PRN migraine 01/12/23 (Imitrex) headache #10 tabs <KAYLA Alcantara - Last Filed: 01/12/23 14:23> Allergies/Adverse Reactions: Allergies Allergy/AdvReac Type Severity Reaction Status Date / Time Penicillins Allergy Severe swelling Verified 01/12/23 14:21 adhesive tape [ADHESIVE TAPE] Allergy Intermediate RASH Verified 01/12/23 14:21 amoxicillin [AMOXICILLIN] Allergy Intermediate RASH,SWELLI Verified 01/12/23 14:21 NG ibuprofen [From Motrin] Allergy Intermediate Hypertensio Verified 01/12/23 14:21 n latex Allergy Intermediate Rash Verified 01/07/23 16:58 <KAYLA Alcantara Last Filed: 01/12/23 14:23> Review of Systems Review of Systems: Constitutional : No Weight loss, No Fever, No Chills, No Night Sweats, No Fatigue, No Malaise ENT/Mouth : Complaining of photophobia No Hearing loss, No Ear Pain, No Nasal Congestion, No Sinus Pain, No Hoarseness, No sore throat, No Rhinorrhea, No Swallowing Difficulty Eyes: No Eye Pain, No Swelling, No Redness, No Foreign Body, No Discharge, complaining of nonspecific visual changes with intense headache, no visual changes at this time Cardiovascular : No Chest Pain, No SOB, No Dyspnea on Exertion, No Orthopnea, No Edema, No Palpitations Respiratory : No Cough, No Sputum, No Wheezing, No Smoke Exposure, No Dyspnea Gastrointestinal : No Nausea, No Vomiting, No Diarrhea, No Constipation, No abd ominal Pain, No Hematochezia, No Melena Genitourinary : no irregular bleeding, No Dysuria, No Urinary Frequency, No Hematuria, No Urinary Incontinence, No Urgency, No Flank Pain, No Urinary Flow Changes, No Hesitancy Musculoskeletal : No joint pain, No Myalgias, No Joint Swelling Skin : No Skin Lesions, No rash Neuro : No Weakness, No Numbness, No Paresthesias, No Loss of Consciousness, No Dizziness, complaining of a migraine headache present for 1 week Psych : No Anxiety/Panic, No Depression, No SI/HI/AH/VH, No Social Issues, Heme/Lymph: No Bruising, No Bleeding,No Lymphadenopathy Endocrine : No Polyuria, No Polydipsia, No Temperature Intolerance <Clau Neal MD - Last Filed: 01/12/23 22:11> [facility] Past Medical History Medical History: Medical History Arthropathy of facet joint Asthma Bilateral shoulder pain Chronic idiopathic constipation Chronic pain syndrome Degeneration, intervertebral disc, cervical Diabetes mellitus Disc degeneration, lumbar Fibromyalgia LUDY (generalized anxiety disorder) Gastroparesis Goiter Hyperlipidemia LDL goal <70 Hypothyroidism Incontinence Insomnia Left knee pain Lumbar pain Moderately severe recurrent major depression Morbid (severe) obesity due to excess calories Multiple air fluid levels of small intestine determined by X-ray Renal calculi Sleep apnea Small bowel motility disorder Spondylosis of cervical spine at multiple levels without myelopathy Spondylosis of lumbar region without myelopathy or radiculopathy <KAYLA Alcantara - Last Filed: 01/12/23 14:23> Surgical History: Surgical History Delivery by section History of cholecystectomy History of esophagogastroduodenoscopy (EGD) History of hernia surgery History of hysterectomy History of knee replacement procedure of right knee Hx of colonoscopy <KAYLA Alcantara - Last Filed: 01/12/23 14:23> Family History Family History: Family History Father Past heart attack Anxiety Mother MOF (multiple organ failure) Brother HIV (human immunodeficiency virus infection) Sister Ovarian cancer Lupus Bone cancer Uterine cancer Tumor Daughter Guillain-[place]ton Sister Lupus History of open heart surgery Family/Other Depression FH: mental illness Maternal Aunt Breast cancer Maternal Aunt Tumor <KAYLA Alcantara - Last Filed: 01/12/23 14:23> Social History Social History: Social History Household Members: None Household Members Other:: Housing: Apartment Are you a primary multi care technician to a significant other at home: No Do you presently have visiting nurse or other home services: Yes ([employer]) Alcohol intake: never Patient Tobacco Use Status: Never used Tobacco e-Cigarette/Vaping Use: Never Used Second Hand Smoke Exposure: Yes Advance Directives: Yes Advance Directives on File: Yes Advance Directives Date on File: 12/08/21 service: No Current occupational status: unemployed and disabled Cognitive needs: No Hearing needs: No Vision needs: No <KAYLA Alcantara - Last Filed: 01/12/23 14:23> Physical Exam Vital Signs: Vital Signs: Last Vital Signs Temp 98 F 01/12/23 14:18 Pulse 82 01/12/23 19:38 Resp 18 01/12/23 19:38 BP 110/50 L 01/12/23 19:38 Pulse Ox 95 01/12/23 19:38 O2 Del Method Room Air 01/12/23 19:38 BMI result Body Mass Index 38.5 <KAYLA Alcantara - Last Filed: 01/12/23 14:23> Vital Signs: Last Vital Signs Temp 98 F 01/12/23 14:18 Pulse 82 01/12/23 19:38 Resp 18 01/12/23 19:38 BP 110/50 L 01/12/23 19:38 Pulse Ox 95 01/12/23 19:38 O2 Del Method Room Air 01/12/23 19:38 BMI result Body Mass Index 38.5 <Clau Neal MD - Last Filed: 01/12/23 22:11> Const: Other: Appearance: Alert. Oriented X3. No acute distress. Eyes: Pupils equal, round and reactive to light. Seems to have photophobia ENT: Pharynx normal. Neck: Normal inspection. Neck supple. No lymph nodes noted. No crepitus CVS: Normal heart rate and rhythm. Pulses normal. Normal S1 and S2 Respiratory: No respiratory distress. Breath sounds normal. No Wheezing. No rales Abdomen: Soft and nontender. No rigidity. No distention. Skin: Skin warm and dry. Normal skin color. Normal skin turgor. Extremities: No lower extremity edema. No Lacerations. No Rash Neuro: Oriented X 3. No motor deficit. No sensory deficit. Moving all extremities. No slurred speech. CN 2 through 12 grossly intact Psych: calm, cooperative, normal affect <Clau Neal MD - Last Filed: 01/12/23 22:11> Course Course Course Narrative: RME-- 57yo F w/PMHx migraines, LUDY, asthma, HLD, DM, c/o constant worsening WELCH x1 week with assoc myalgias. Takes Imitrex w/o relief. Admits to assoc loss of vision today for a second, photophobia, nausea and dizziness. WELCH not maximal at onset Vital signs stable, mildly hypertensive, ambulating with steady gait EKG, labs ordered <KAYLA Alcantara - Last Filed: 01/12/23 14:23> Medications Administered Discontinued Medications Generic Name Dose Route Start Last Admin Trade Name Freq PRN Reason Stop Dose Admin Diphenhydramine HCl 25 mg 01/12/23 19:33 01/12/23 19:48 Diphenhydramine Hcl 50 Mg/Ml Vial IVPUSH 01/12/23 19:34 25 mg ONCE ONE Administration Sodium Chloride 1,000 mls @ 999 mls/hr 01/12/23 19:33 01/12/23 20:44 Ns IVCONT 01/12/23 20:33 Infused .Q1H1M ONE Infusion Ketorolac Tromethamine 30 mg 01/12/23 21:04 01/12/23 21:14 Ketorolac Tromethamine 30 Mg/Ml Vial IVPUSH 01/12/23 21:05 30 mg ONCE ONE Administration Metoclopramide HCl 10 mg 01/12/23 19:33 01/12/23 19:51 Metoclopramide Hcl 10 Mg/2 Ml Vial IVPUSH 01/12/23 19:34 10 mg ONCE ONE Administration Morphine Sulfate 4 mg 01/12/23 19:33 01/12/23 19:50 Morphine Sulfate 4 Mg/Ml Cartridge IVPUSH 01/12/23 19:34 4 mg ONCE ONE Administration Protocol <KAYLA Alcantara - Last Filed: 01/12/23 14:23> Medications Administered Discontinued Medications Generic Name Dose Route Start Last Admin Trade Name Freq PRN Reason Stop Dose Admin Diphenhydramine HCl 25 mg 01/12/23 19:33 01/12/23 19:48 Diphenhydramine Hcl 50 Mg/Ml Vial IVPUSH 01/12/23 19:34 25 mg ONCE ONE Administration Sodium Chloride 1,000 mls @ 999 mls/hr 01/12/23 19:33 01/12/23 20:44 Ns IVCONT 01/12/23 20:33 Infused .Q1H1M ONE Infusion Ketorolac Tromethamine 30 mg 01/12/23 21:04 01/12/23 21:14 Ketorolac Tromethamine 30 Mg/Ml Vial IVPUSH 01/12/23 21:05 30 mg ONCE ONE Administration Metoclopramide HCl 10 mg 01/12/23 19:33 01/12/23 19:51 Metoclopramide Hcl 10 Mg/2 Ml Vial IVPUSH 01/12/23 19:34 10 mg ONCE ONE Administration Morphine Sulfate 4 mg 01/12/23 19:33 01/12/23 19:50 Morphine Sulfate 4 Mg/Ml Cartridge IVPUSH 01/12/23 19:34 4 mg ONCE ONE Administration Protocol <Clau Neal MD - Last Filed: 01/12/23 22:11> Medical Decision Making Medical Decision Making MDM Narrative: -patient received IV fluids, morphine, Reglan and Benadryl. -I reviewed patient's labs, which are at baseline. -patient states that the morphine did not help to alleviate the migraine. Patient receiving now 1 dose of ketorolac -patient states that she feels much better, but requesting something a little bit stronger for pain medication, patient given 1 dose of IV Dilaudid. Also, patient requesting for food, which will be provided for the patient. Patient still has photophobia, but has improved greatly since her arrival. Patient states that she has no visual changes at this time. No neurological deficits. <Clau Neal MD - Last Filed: 01/12/23 22:11> Differential Diagnosis Differential Diagnoses: The differential diagnosis associated with the presentation includes (Headache, migraine) <Clau Neal MD - Last Filed: 01/12/23 22:11> Lab Data Result Diagrams: 01/12/23 14:37 01/12/23 14:37 <KAYLA Alcantara - Last Filed: 01/12/23 14:23> Labs: Lab Results 01/12/23 01/12/23 01/12/23 Range/Units 14:37 14:37 14:37 WBC 13.2 H (4.8-10.8) X10*3/uL RBC 4.96 (4.20-5.50) X10*6/uL Hgb 11.5 L (12.0-16.0) g/dl Hct 37.3 (37.0-47.0) % MCV 75.2 L (80.0-98.0) fL MCH 23.2 L (27.0-33.0) pg MCHC 30.8 L (31.0-35.0) g/dl RDW 18.4 H (11.0-16.0) % Plt Count 332 (160-400) X10*3/uL MPV 10.3 (9.4-12.3) fL Immature Gran % (Auto) 0.8 H (0.0-0.4) % Neut % (Auto) 74.1 H (45-73) % Lymph % (Auto) 17.7 L (20-40) % Kimball % (Auto) 4.0 (2-11) % Eos % (Auto) 3.1 (0-4) % Baso % (Auto) 0.3 (0-2) % Lymph # (Auto) 2.3 (1.2-4.9) X10*3/uL Kimball # (Auto) 0.5 (0.1-1.2) X10*3/uL Eos # (Auto) 0.4 (0.0-0.4) X10*3/uL Baso # (Auto) 0.0 (0.0-0.2) X10*3/uL Abs Immat Gran (auto) 0.11 H (0.00-0.03) X10*3/uL Absolute Neuts (auto) 9.8 H (2.0-8.3) x10*3/uL Absolute Nucleated RBC 0.000 (0.0-0.012) X10*3/uL Nucleated RBC % (auto) 0.0 (0.0-0.2) /100WBC Sodium 143 (135-145) mmol/L Potassium 4.2 D (3.3-5.1) mmol/L Chloride 101 (96-108) mmol/L Carbon Dioxide 32 H (22-29) mmol/L Anion Gap 14 (12-20) BUN 9 (9-16) mg/dL Creatinine 0.74 (0.5-1.4) mg/dL Estim Creat Clear Calc 109.3 Estimated GFR > 60 Random Glucose 91 (60-115) mg/dL Calcium 9.2 (8.4-10.2) mg/dL Magnesium 1.5 L (1.6-2.6) mg/dL Total Bilirubin 0.4 (0.0-1.0) mg/dL Direct Bilirubin 0.1 (0.0-0.5) mg/dL AST 19 (5-31) U/L ALT 24 (0-31) U/L Alkaline Phosphatase 94 (39-117) U/L Total Protein 6.7 (6.5-8.0) g/dL Albumin 3.7 (3.5-5.0) g/dL COVID-19 (CORNELL) (Negative) COVID-19 Clin Com Influenza Type A (TAL) Negative (Negative) Influenza Type B (TAL) Negative (Negative) Influenza A & B Note See Note 01/12/23 Range/Units 14:37 WBC (4.8-10.8) X10*3/uL RBC (4.20-5.50) X10*6/uL Hgb (12.0-16.0) g/dl Hct (37.0-47.0) % MCV (80.0-98.0) fL MCH (27.0-33.0) pg MCHC (31.0-35.0) g/dl RDW (11.0-16.0) % Plt Count (160-400) X10*3/uL MPV (9.4-12.3) fL Immature Gran % (Auto) (0.0-0.4) % Neut % (Auto) (45-73) % Lymph % (Auto) (20-40) % Kimball % (Auto) (2-11) % Eos % (Auto) (0-4) % Baso % (Auto) (0-2) % Lymph # (Auto) (1.2-4.9) X10*3/uL Kimball # (Auto) (0.1-1.2) X10*3/uL Eos # (Auto) (0.0-0.4) X10*3/uL Baso # (Auto) (0.0-0.2) X10*3/uL Abs Immat Gran (auto) (0.00-0.03) X10*3/uL Absolute Neuts (auto) (2.0-8.3) x10*3/uL Absolute Nucleated RBC (0.0-0.012) X10*3/uL Nucleated RBC % (auto) (0.0-0.2) /100WBC Sodium (135-145) mmol/L Potassium (3.3-5.1) mmol/L Chloride (96-108) mmol/L Carbon Dioxide (22-29) mmol/L Anion Gap (12-20) BUN (9-16) mg/dL Creatinine (0.5-1.4) mg/dL Estim Creat Clear Calc Estimated GFR Random Glucose (60-115) mg/dL Calcium (8.4-10.2) mg/dL Magnesium (1.6-2.6) mg/dL Total Bilirubin (0.0-1.0) mg/dL Direct Bilirubin (0.0-0.5) mg/dL AST (5-31) U/L ALT (0-31) U/L Alkaline Phosphatase (39-117) U/L Total Protein (6.5-8.0) g/dL Albumin (3.5-5.0) g/dL COVID-19 (CORNELL) Negative (Negative) COVID-19 Clin Com See Note Influenza Type A (TAL) (Negative) Influenza Type B (TAL) (Negative) Influenza A & B Note <KAYLA Alcantara - Last Filed: 01/12/23 14:23> Lab Results 01/12/23 01/12/23 01/12/23 Range/Units 14:37 14:37 14:37 WBC 13.2 H (4.8-10.8) X10*3/uL RBC 4.96 (4.20-5.50) X10*6/uL Hgb 11.5 L (12.0-16.0) g/dl Hct 37.3 (37.0-47.0) % MCV 75.2 L (80.0-98.0) fL MCH 23.2 L (27.0-33.0) pg MCHC 30.8 L (31.0-35.0) g/dl RDW 18.4 H (11.0-16.0) % Plt Count 332 (160-400) X10*3/uL MPV 10.3 (9.4-12.3) fL Immature Gran % (Auto) 0.8 H (0.0-0.4) % Neut % (Auto) 74.1 H (45-73) % Lymph % (Auto) 17.7 L (20-40) % Kimball % (Auto) 4.0 (2-11) % Eos % (Auto) 3.1 (0-4) % Baso % (Auto) 0.3 (0-2) % Lymph # (Auto) 2.3 (1.2-4.9) X10*3/uL Kimball # (Auto) 0.5 (0.1-1.2) X10*3/uL Eos # (Auto) 0.4 (0.0-0.4) X10*3/uL Baso # (Auto) 0.0 (0.0-0.2) X10*3/uL Abs Immat Gran (auto) 0.11 H (0.00-0.03) X10*3/uL Absolute Neuts (auto) 9.8 H (2.0-8.3) x10*3/uL Absolute Nucleated RBC 0.000 (0.0-0.012) X10*3/uL Nucleated RBC % (auto) 0.0 (0.0-0.2) /100WBC Sodium 143 (135-145) mmol/L Potassium 4.2 D (3.3-5.1) mmol/L Chloride 101 (96-108) mmol/L Carbon Dioxide 32 H (22-29) mmol/L Anion Gap 14 (12-20) BUN 9 (9-16) mg/dL Creatinine 0.74 (0.5-1.4) mg/dL Estim Creat Clear Calc 109.3 Estimated GFR > 60 Random Glucose 91 (60-115) mg/dL Calcium 9.2 (8.4-10.2) mg/dL Magnesium 1.5 L (1.6-2.6) mg/dL Total Bilirubin 0.4 (0.0-1.0) mg/dL Direct Bilirubin 0.1 (0.0-0.5) mg/dL AST 19 (5-31) U/L ALT 24 (0-31) U/L Alkaline Phosphatase 94 (39-117) U/L Total Protein 6.7 (6.5-8.0) g/dL Albumin 3.7 (3.5-5.0) g/dL COVID-19 ([facility]NELL) (Negative) COVID-19 Clin Com Influenza Type A (TAL) Negative (Negative) Influenza Type B (TAL) Negative (Negative) Influenza A & B Note See Note 01/12/23 Range/Units 14:37 WBC (4.8-10.8) X10*3/uL RBC (4.20-5.50) X10*6/uL Hgb (12.0-16.0) g/dl Hct (37.0-47.0) % MCV (80.0-98.0) fL MCH (27.0-33.0) pg MCHC (31.0-35.0) g/dl RDW (11.0-16.0) % Plt Count (160-400) X10*3/uL MPV (9.4-12.3) fL Immature Gran % (Auto) (0.0-0.4) % Neut % (Auto) (45-73) % Lymph % (Auto) (20-40) % Kimball % (Auto) (2-11) % Eos % (Auto) (0-4) % Baso % (Auto) (0-2) % Lymph # (Auto) (1.2-4.9) X10*3/uL Kimball # (Auto) (0.1-1.2) X10*3/uL Eos # (Auto) (0.0-0.4) X10*3/uL Baso # (Auto) (0.0-0.2) X10*3/uL Abs Immat Gran (auto) (0.00-0.03) X10*3/uL Absolute Neuts (auto) (2.0-8.3) x10*3/uL Absolute Nucleated RBC (0.0-0.012) X10*3/uL Nucleated RBC % (auto) (0.0-0.2) /100WBC Sodium (135-145) mmol/L Potassium (3.3-5.1) mmol/L Chloride (96-108) mmol/L Carbon Dioxide (22-29) mmol/L Anion Gap (12-20) BUN (9-16) mg/dL Creatinine (0.5-1.4) mg/dL Estim Creat Clear Calc Estimated GFR Random Glucose (60-115) mg/dL Calcium (8.4-10.2) mg/dL Magnesium (1.6-2.6) mg/dL Total Bilirubin (0.0-1.0) mg/dL Direct Bilirubin (0.0-0.5) mg/dL AST (5-31) U/L ALT (0-31) U/L Alkaline Phosphatase (39-117) U/L Total Protein (6.5-8.0) g/dL Albumin (3.5-5.0) g/dL COVID-19 ([facility]NELL) Negative (Negative) COVID-19 Clin Com See Note Influenza Type A (TAL) (Negative) Influenza Type B (TAL) (Negative) Influenza A & B Note <Clau Neal MD - Last Filed: 01/12/23 22:11> Discharge Plan Discharge Clinical Impression: Headache, migraine <KAYLA Alcantara - Last Filed: 01/12/23 14:23> Patient Disposition: Home, Self-Care <KAYLA Alcantara - Last Filed: 01/12/23 14:23> Instructions: Migraine Headache (ED) <KAYLA Alcantara - Last Filed: 01/12/23 14:23> Additional Instructions: Please follow-up with your primary care physician tomorrow. If you have any worsening or new symptoms, please return to the emergency room or call 911 <KAYLA Alcantara - Last Filed: 01/12/23 14:23> Prescriptions: New sumatriptan succinate [Imitrex] 50 mg tablet 50 mg PO Q2-4H PRN (Reason: migraine headache) Qty: 10 0RF Rx Instructions: do not exceed 4 doses per 24 hrs metoclopramide HCl [Reglan] 5 mg tablet 5 mg PO BID PRN (Reason: nausea and vomiting) Qty: 14 0RF No Action (DME) lancets [FreeStyle Lancets] 28 gauge misc See Rx Instructions .Route Qty: 100 6RF Rx Instructions: BID (DME) FreeStyle Julianne 2 Sensor Kit See Rx Instructions .Route Qty: 1 2RF Rx Instructions: As directed (DME) diabetic supplies, miscellan. [facility] See Rx Instructions .Route Qty: 1 0RF Rx Instructions: As directed (DME) heating pads Pad See Rx Instructions .Route Qty: 1 0RF Rx Instructions: As directed (DME) Gel mattress overlay Misc See Rx Instructions .Route Qty: 1 0RF Rx Instructions: As directed (DME) Toilet seat riser See Rx Instructions .Route .MEDSUPPLY Qty: 1 0RF Rx Instructions: As directed (DME) miscellaneous medical supply [facility] [place] See Rx Instructions .ROUTE .MEDSUPPLY Qty: 1 0RF Rx Instructions: toilet seat elevator (DME) pen needle, diabetic [BD Ultra-Fine Mini Pen Needle] 31 gauge x 3/16 needle See Rx Instructions .Route Qty: 100 0RF Rx Instructions: As directed (DME) diabetic shoes and inserts See Rx Instructions .Route .MEDSUPPLY Qty: 1 1RF Rx Instructions: As directed levothyroxine 112 mcg tablet 112 mcg PO DAILY 90 Days Qty: 90 1RF (DME) BD Insulin Syringe (half unit) 0.3 mL 31 gauge x 5/16 syringe See Rx Instructions .Route Qty: 100 3RF Rx Instructions: Use 1 needle once a day hydrocortisone [Anti-Itch (HC)] 1 % cream 1 appl topical TID PRN (Reason: skin irritation) 30 Days Qty: 28.4 0RF duloxetine 60 mg capsule,delayed release(DR/EC) 90 mg PO DAILY 90 Days Qty: 135 1RF (DME) blood-glucose meter [FreeStyle Lite Meter] Kit See Rx Instructions .Route Qty: 1 0RF Rx Instructions: As directed (DME) FreeStyle Lite Strips Strip See Rx Instructions .Route Qty: 100 3RF Rx Instructions: use 1 test strip once a day (DME) walker [facility] [place] See Rx Instructions .Route Qty: 1 0RF Rx Instructions: walker with seat and wheels metformin 500 mg tablet 500 mg PO BID Qty: 180 2RF alcohol swabs [Alcohol Prep Pads] Pads, Medicated 1 pad topical .once a day 90 Days Qty: 100 0RF amlodipine 10 mg tablet 10 mg PO DAILY Qty: 90 1RF acetaminophen [Tylenol Arthritis Pain] 650 mg tablet extended release 650 mg PO Q8H PRN (Reason: arthritis pain) Qty: 90 3RF (DME) insulin syringe-needle U-100 [BD Insulin Syringe Ultra-Fine] 0.5 mL 31 gauge x 5/16 syringe See Rx Instructions .Route Qty: 100 3RF Rx Instructions: Use 1 three times a day sumatriptan succinate 25 mg tablet 25 mg PO ONCE PRN (Reason: migraine headache) Qty: 12 1RF Advair HFA 230-21 mcg/actuation HFA aerosol inhaler 2 puff PO Q12H Qty: 12 6RF dicyclomine 10 mg capsule 10 mg PO BID PRN (Reason: cramping) Qty: 60 3RF gabapentin 800 mg tablet 800 mg PO TID 30 Days Qty: 90 0RF OsmoPrep 1.5 gram tablet 4 tab PO Q15M Qty: 32 0RF Rx Instructions: administer with 240 mL of clear fluid peg-electrolyte soln 420 gram recon soln 240 ml PO Q10M Qty: 4000 0RF Rx Instructions: until fecal effluent is clear water for irrigation, sterile Solution 1 irrig irrigation DAILY 30 Days Qty: 500 6RF albuterol sulfate [Ventolin HFA] 90 mcg/actuation HFA aerosol inhaler 2 puff PO Q6H PRN (Reason: for wheezing) Qty: 18 1RF insulin lispro 100 unit/mL solution 5 unit subcut TID 90 Days Qty: 13.5 2RF lorazepam [Ativan] 1 mg tablet 1 mg PO BID PRN (Reason: anxiety) Qty: 14 0RF ondansetron 4 mg tablet,disintegrating 4 mg PO Q8H PRN (Reason: nausea and vomiting) Qty: 30 0RF (DME) Shower Chair Misc See Rx Instructions .Route Qty: 1 0RF Rx Instructions: As directed (DME) vaporizers Misc See Rx Instructions .ROUTE .MEDSUPPLY Qty: 1 Rx Instructions: As directed atorvastatin 10 mg tablet 10 mg PO BEDTIME 90 Days Qty: 90 1RF hydroxyzine HCl 50 mg tablet 50 mg PO BEDTIME meclizine 25 mg tablet 25 mg PO TID PRN (Reason: dizziness) 90 Days Qty: 270 0RF (DME) cane Device See Rx Instructions .Route Qty: 1 0RF Rx Instructions: As directed insulin glargine [Lantus U-100 Insulin] 100 unit/mL solution 15 unit subcut QPM 90 Days Qty: 13.5 1RF clonidine HCl 0.1 mg tablet 0.1 mg PO TID PRN (Reason: Agitation or Anxiety) mirtazapine 30 mg tablet 30 mg PO BEDTIME metoprolol tartrate 50 mg tablet 50 mg PO BID albuterol sulfate 2.5 mg /3 mL (0.083 %) solution for nebulization 2.5 mg inhalation QID PRN (Reason: shortness of breath or wheezing) Qty: 75 0RF (DME) insulin syringe-needle U-100 [BD Insulin Syringe Ultra-Fine] 0.3 mL 31 gauge x 5/16 syringe See Rx Instructions .ROUTE .MEDSUPPLY Qty: 10 Rx Instructions: As directed Trulicity 0.75 mg/0.5 mL pen injector 0.75 mg subcut QWEEK Qty: 2 5RF hydrocortisone [Proctosol HC] 2.5 % cream with perineal applicator 1 appl [place] BID PRN (Reason: hemorrhoids) Qty: 30 3RF (DME) blood pressure test kit-wrist Kit See Rx Instructions .ROUTE .MEDSUPPLY Qty: 1 0RF Rx Instructions: to check blood pressure cyclobenzaprine 10 mg tablet 10 mg PO TID Qty: 90 0RF metoclopramide HCl [Reglan] 10 mg tablet 10 mg PO QIDACHS Qty: 120 6RF Rx Instructions: Provider aware possible interactions and is monitoring patient senna 8.6 mg capsule 17.2 mg PO BEDTIME 30 Days Qty: 60 3RF torsemide 20 mg tablet 40 mg PO BID 30 Days Qty: 120 6RF <KAYLA Alcantara - Last Filed: 01/12/23 14:23>
--- NOTE | 2023-01-12 14:21 | ECG_ITS ---
Test Reason : dizziness Blood Pressure : / mmHG Vent. Rate : 073 BPM Atrial Rate : 073 BPM P-R Int : 146 ms QRS Dur : 078 ms QT Int : 410 ms P-R-T Axes : 007 002 008 degrees QTc Int : 451 ms Normal sinus rhythm Normal ECG When compared with ECG of 06-JAN-2023 16:47, No significant change was found Referred By: Chichi Sommers Electronically Signed By:MARISA SCHAFER MD
[2023-01-12 14:44] LABS: MANUAL DIFF FLAG NO
[2023-01-12 14:46] LABS: Basophils Percent Auto 0.3 % (0-2); Eosinophils Absolute Auto 0.4 X10*3/uL (0.0-0.4); Eosinophils Percent Auto 3.1 % (0-4); Hematocrit 37.3 % (37.0-47.0); Hemoglobin 11.5 g/dl (12.0-16.0); Imm Gran Abs Auto 0.11 X10*3/uL (0.00-0.03); Imm Gran Pct Auto 0.8 % (0.0-0.4); Lymphocytes Absolute Auto 2.3 X10*3/uL (1.2-4.9); Lymphocytes Percent Auto 17.7 % (20-40); Mean Corpuscular HGB Conc 30.8 g/dl (31.0-35.0); Mean Corpuscular Hemoglobin 23.2 pg (27.0-33.0); Mean Corpuscular Volume 75.2 fL (80.0-98.0); Mean Platelet Volume 10.3 fL (9.4-12.3); Monocytes Absolute Auto 0.5 X10*3/uL (0.1-1.2); Neutrophils Absolute Auto 9.8 x10*3/uL (2.0-8.3); Neutrophils Percent Auto 74.1 % (45-73); Platelet Count 332 X10*3/uL (160-400); Red Blood Count 4.96 X10*6/uL (4.20-5.50); Red Cell Distribution Width 18.4 % (11.0-16.0); White Blood Count 13.2 X10*3/uL (4.8-10.8)
[2023-01-12 15:01] LABS: Alanine Aminotransferase 24 U/L (0-31); Albumin Level 3.7 g/dL (3.5-5.0); Alkaline Phosphatase 94 U/L (39-117); Anion Gap 14 (12-20); Aspartate Amino Transferase 19 U/L (5-31); Bilirubin Direct 0.1 mg/dL (0.0-0.5); Bilirubin Total 0.4 mg/dL (0.0-1.0); Blood Urea Nitrogen 9 mg/dL (9-16); Calcium 9.2 mg/dL (8.4-10.2); Carbon Dioxide 32 mmol/L (22-29); Chloride 101 mmol/L (96-108); Creatinine Clr Calc Pharmacy 109.3; Estimated Glomerular Filt Rate > 60; Glucose Random 91 mg/dL (60-115); Magnesium 1.5 mg/dL (1.6-2.6); Potassium 4.2 mmol/L (3.3-5.1); Sodium 143 mmol/L (135-145); Total Protein 6.7 g/dL (6.5-8.0)
[2023-01-12 15:07] LABS: IDNOW Serial# 55D5AD1C; Influenza A Negative (Negative); Influenza B2 Negative (Negative)
[2023-01-12 15:10] LABS: COVID-19 Test Negative (Negative); IDNOW Serial# BCCEAD1C
[2023-01-12 19:38] VITALS: BP 110/50; PULSE 82; RESP 18; O2SAT 95
[2023-01-12] MEDS: 0.9 % Sodium Chloride 1,000 ML 999 ML IVCONT (19:44)
[2023-01-12] MEDS: diphenhydrAMINE HCL 50 MG/ML VIAL 25 MG IVPUSH (19:48)
[2023-01-12] MEDS: Morphine Sulfate 4 MG/ML CARTRIDGE IVPUSH (19:50)
[2023-01-12] MEDS: Metoclopramide HCl 10 MG/2 ML VIAL IVPUSH (19:51)
[2023-01-12] MEDS: Ketorolac Tromethamine 30 MG/ML VIAL IVPUSH (21:14)
[2023-01-12] MEDS: HYDROmorphone HCl 0.5 MG/0.5 ML SYRINGE IVPUSH (22:10)
[2023-01-12 22:36] VITALS: PULSE 80; RESP 17; O2SAT 94
== END 2023-01-12 22:37 | disposition home or self-care (01) ==
PROVIDERS: Physician Assistant; Emergency Provider Emergency Medicine; PCP Internal Medicine
DX: G43.909 Migraine, unspecified, not intractable, without status migrainosus (principal); R42 Dizziness and giddiness; Z20.822 Contact with and (suspected) exposure to COVID-19; Z20.828 Contact with and (suspected) exposure to other viral communicable diseases; Z79.899 Other long term (current) drug therapy
CPT/HCPCS: 80048; 80076; 83735; 85025; 87502; 87635; 93005; 96361; 96374; 96375; 99284; 99285; J1170; J1200; J1885; J2270; J2765

== ENCOUNTER 2023-01-14 10:48 | Day surgery (SDC) | payer OTHER, SELFPAY ==
[2023-01-12 14:25] VITALS: BMI 39.6
--- NOTE | 2023-01-13 12:58 | P.CONAN_ITS ---
Documented by User: Gina Prince NP 01/13/23 13:03 HPI - Anesthesia Eval Consult details Narrative: 57yo F for Colonoscopy Pulmo [place] [facility] with migraine x 1 week PMFSH Active Problems Active Problems: All Active Problems (Updated 01/13/23 @ 00:00 by Background Daemon) Urinary incontinence (Acute) Chronic pain (Acute Unknown) Hypertension (Acute) Migraine (Acute) Seasonal allergies (Acute) Anxiety with depression (Acute) Edema (Acute) Vertigo (Acute) GERD (gastroesophageal reflux disease) (Acute) Right sided abdominal pain (Acute) Abdominal cramping (Acute) Sleep apnea (Acute) Physical deconditioning (Acute) Spondylosis of lumbar region without myelopathy or radiculopathy (Acute) Hypothyroid (Acute) Abdominal bloating (Acute) Encounter for annual routine gynecological examination (Acute) Pelvic pain in female (Acute) Vulvar irritation (Acute) Chronic pain syndrome (Acute) Screening for hyperlipidemia (Acute) Elevated red blood cell count (Acute) Microcytosis (Chronic) Pulmonary nodules (Acute) Bronchitis (Acute) MARY on CPAP (Acute) Flank pain (Acute) Hospital discharge follow-up (Acute) Environmental allergies (Acute) Thoracic back pain (Acute) Diarrhea (Acute) Left shoulder pain (Acute) Nocturnal hypoxemia (Acute) Orthopnea (Acute) Leg edema (Acute) Arthritis of shoulder region, left (Acute) Cervicalgia (Acute) Diabetic gastroparesis (Acute) MARY (obstructive sleep apnea) (Acute) Kiera albicans infection (Acute) Rash of foot (Acute) Cervical radiculopathy (Acute) Cervical radiculopathy at C8 (Acute) Pulmonary edema (Acute) Pre-op examination (Acute) Chronic idiopathic constipation (Acute) Left knee pain (Acute) Hypothyroidism (Acute) Bilateral shoulder pain (Acute) Hyperlipidemia LDL goal <70 (Acute) Degeneration, intervertebral disc, cervical (Acute) Spondylosis of cervical spine at multiple levels without myelopathy (Acute) Spondylosis of cervical spine at multiple levels without myelopathy (Acute) Renal calculi (Acute) Incontinence (Acute) Goiter (Acute) Disc degeneration, lumbar (Acute) Spondylosis of lumbar region without myelopathy or radiculopathy (Acute) Arthropathy of facet joint (Acute) Lumbar pain (Acute) Insomnia (Acute) LUDY (generalized anxiety disorder) (Acute) Moderately severe recurrent major depression (Acute) Multiple air fluid levels of small intestine determined by X-ray (Acute) Diabetes mellitus (Acute) Chronic pain syndrome (Acute) Morbid (severe) obesity due to excess calories (Acute) Fibromyalgia (Acute) Asthma (Acute) Past Medical History Medical History Arthropathy of facet joint Asthma Bilateral shoulder pain Chronic idiopathic constipation Chronic pain syndrome Degeneration, intervertebral disc, cervical Diabetes mellitus Disc degeneration, lumbar Fibromyalgia LUDY (generalized anxiety disorder) Gastroparesis Goiter Hyperlipidemia LDL goal <70 Hypothyroidism Incontinence Insomnia Left knee pain Lumbar pain Moderately severe recurrent major depression Morbid (severe) obesity due to excess calories Multiple air fluid levels of small intestine determined by X-ray Renal calculi Sleep apnea Small bowel motility disorder Spondylosis of cervical spine at multiple levels without myelopathy Spondylosis of lumbar region without myelopathy or radiculopathy Family History Family History Father Past heart attack Anxiety Mother MOF (multiple organ failure) Brother HIV (human immunodeficiency virus infection) Sister Ovarian cancer Lupus Bone cancer Uterine cancer Tumor Daughter Guillain-[place] Sister Lupus History of open heart surgery Family/Other Depression FH: mental illness Maternal Aunt Breast cancer Maternal Aunt Tumor Surgical History Surgical History Delivery by section History of cholecystectomy History of esophagogastroduodenoscopy (EGD) History of hernia surgery History of hysterectomy History of knee replacement procedure of right knee Hx of colonoscopy History of Problems with Anesthesia: No Social History Social History Household Members: None Household Members Other:: Housing: Apartment Are you a primary healthcare advisory services manager to a significant other at home: No Do you presently have visiting nurse or other home services: Yes ([employer]) Alcohol intake: never Patient Tobacco Use Status: Never used Tobacco e-Cigarette/Vaping Use: Never Used Second Hand Smoke Exposure: Yes Use of substances other than those prescribed or required for medical reasons: No Advance Directives: Yes Advance Directives on File: Yes Advance Directives Date on File: 12/08/21 service: No Current occupational status: unemployed and disabled Cognitive needs: No Hearing needs: No Vision needs: No Meds Allergies Allergy/AdvReac Type Severity Reaction Status Date / Time Penicillins Allergy Severe swelling Verified 01/12/23 14:21 adhesive tape [ADHESIVE TAPE] Allergy Intermediate RASH Verified 01/12/23 14:21 amoxicillin [AMOXICILLIN] Allergy Intermediate RASH,SWELLI Verified 01/12/23 14:21 NG ibuprofen [From Motrin] Allergy Intermediate Hypertensio Verified 01/12/23 14:21 n latex Allergy Intermediate Rash Verified 01/07/23 16:58 Home Medications Medication Instructions Recorded Confirmed Last Taken Type vaporizers #1 ea 10/10/20 01/07/23 Unknown History clonidine HCl 0.1 mg tablet 0.1 mg PO TID PRN Agitation or 09/19/21 01/07/23 01/25/22 10:00 History Anxiety mirtazapine 30 mg tablet 30 mg PO BEDTIME 06/23/22 01/07/23 Unknown History metoprolol tartrate 50 mg tablet 50 mg PO BID 10/01/22 01/07/23 Unknown History insulin syringe-needle U-100 0.3 #10 ea 10/20/22 01/07/23 Unknown History mL 31 gauge x 5/16 (BD Insulin Syringe Ultra-Fine) hydroxyzine HCl 50 mg tablet 50 mg PO BEDTIME 01/07/23 01/07/23 Unknown History Exam Exam Date and Time: January 13, 2023 1258 Height,Weight and Vital Signs: Height 5 ft 7 in Weight 114.759 kg Pertinent Lab Results Pertinent Lab Results: Laboratory Tests 01/12/23 01/12/23 14:37 14:37 WBC 13.2 H Hgb 11.5 L Hct 37.3 Plt Count 332 Sodium 143 Potassium 4.2 D Chloride 101 Carbon Dioxide 32 H BUN 9 Creatinine 0.74 Narrative Narrative: EKG 01/2023 Vent. Rate : 073 BPM ? ? Atrial Rate : 073 BPM ?? P-R Int : 146 ms? QRS Dur : 078 ms ? ? QT Int : 410 ms ? ? ? P-R-T Axes : 007 002 008 degrees ?? QTc Int : 451 ms ? Normal sinus rhythm Normal ECG When compared with ECG of 06-JAN-2023 16:47, No significant change was found Assessment and Plan Assessment Anesthesia Assessment: Chart Reviewed Final Anesthetic Review History of Problems with Anesthesia: No Documented by User: Teresa Blanco MD 01/14/23 12:30 PMFSH Past Medical History Medical History Arthropathy of facet joint Asthma Bilateral shoulder pain Chronic idiopathic constipation Chronic pain syndrome Degeneration, intervertebral disc, cervical Diabetes mellitus Disc degeneration, lumbar Fibromyalgia LUDY (generalized anxiety disorder) Gastroparesis Goiter Hyperlipidemia LDL goal <70 Hypothyroidism Incontinence Insomnia Left knee pain Lumbar pain Moderately severe recurrent major depression Morbid (severe) obesity due to excess calories Multiple air fluid levels of small intestine determined by X-ray Renal calculi Sleep apnea Small bowel motility disorder Spondylosis of cervical spine at multiple levels without myelopathy Spondylosis of lumbar region without myelopathy or radiculopathy Family History Family History Father Past heart attack Anxiety Mother MOF (multiple organ failure) Brother HIV (human immunodeficiency virus infection) Sister Ovarian cancer Lupus Bone cancer Uterine cancer Tumor Daughter Guillain-[place] Sister Lupus History of open heart surgery Family/Other Depression FH: mental illness Maternal Aunt Breast cancer Maternal Aunt Tumor Family history of problems with anesthesia: No Surgical History Surgical History Delivery by section History of cholecystectomy History of esophagogastroduodenoscopy (EGD) History of hernia surgery History of hysterectomy History of knee replacement procedure of right knee Hx of colonoscopy Social History Social History Household Members: None Household Members Other:: Housing: Apartment Are you a primary healthcare advisory services manager to a significant other at home: No Do you presently have visiting nurse or other home services: Yes ([employer]) Alcohol intake: never Patient Tobacco Use Status: Never used Tobacco e-Cigarette/Vaping Use: Never Used Second Hand Smoke Exposure: Yes Use of substances other than those prescribed or required for medical reasons: No Advance Directives: Yes Advance Directives on File: Yes Advance Directives Date on File: 12/08/21 service: No Current occupational status: unemployed and disabled Cognitive needs: No Hearing needs: No Vision needs: No Meds Allergies Allergy/AdvReac Type Severity Reaction Status Date / Time Penicillins Allergy Severe swelling Verified 01/12/23 14:21 adhesive tape [ADHESIVE TAPE] Allergy Intermediate RASH Verified 01/12/23 14:21 amoxicillin [AMOXICILLIN] Allergy Intermediate RASH,SWELLI Verified 01/12/23 14:21 NG ibuprofen [From Motrin] Allergy Intermediate Hypertensio Verified 01/12/23 14:21 n latex Allergy Intermediate Rash Verified 01/07/23 16:58 Home Medications Medication Instructions Recorded Confirmed Last Taken Type vaporizers #1 ea 10/10/20 01/07/23 Unknown History clonidine HCl 0.1 mg tablet 0.1 mg PO TID PRN Agitation or 09/19/21 01/07/23 01/25/22 10:00 History Anxiety mirtazapine 30 mg tablet 30 mg PO BEDTIME 06/23/22 01/07/23 Unknown History metoprolol tartrate 50 mg tablet 50 mg PO BID 10/01/22 01/07/23 Unknown History insulin syringe-needle U-100 0.3 #10 ea 10/20/22 01/07/23 Unknown History mL 31 gauge x 5/16 (BD Insulin Syringe Ultra-Fine) hydroxyzine HCl 50 mg tablet 50 mg PO BEDTIME 01/07/23 01/07/23 Unknown History Exam Airway Mallampati Class: II (right top loose cap) TM Dist: >3cm Neck ROM: Full Heart: rrr Lungs: cta Assessment and Plan Assessment Anesthesia Assessment: Anesthesia Plan Discussed Final Anesthetic Review Family History of Problems with Anesthesia: No NPO: Yes ASA Class: III Final Preanesthetic Review: No Changes in Pt Med Stat, Meds/Allgs Chart Reviewed and Consent Obtained/Reviewed Patient Risk: Intermediate Procedure Risk: Intermediate Anesthetic Plan Anesthetic Plan: MAC: Disposition: Standard PACU
[2023-01-14 11:38] LABS: Glucose, Whole Blood 156 mg/dL (60-115)
--- NOTE | 2023-01-14 11:39 | P.HPSUR_ITS ---
Pre-Procedural Eval Section A Date of Service: 01/14/23 Section B Chief Complaint: Diarrhea, unspecified. abdominal pain Relevant Family History (Specify if Yes): No Relevant Social History: None Present Medications: see Short Stay Collaborative assessment Medical History: Significant History (Arthropathy of facet joint Asthma Bilateral shoulder pain Chronic idiopathic constipation Chronic pain (Unknown) Chronic pain syndrome Degeneration, intervertebral disc, cervical Diabetes mellitus Disc degeneration, lumbar Fibromyalgia LUDY (generalized anxiety disorder) Gastroparesis Goiter Hyperlip) History of Previous Operations: Relevant previous surgery/procedure and date(s) (Delivery by section History of cholecystectomy History of esophagogastroduodenoscopy (EGD) History of hernia surgery History of hysterectomy History of knee replacement procedure of right knee Hx of colonoscopy) Allergies: Allergies Allergy/AdvReac Type Severity Reaction Status Date / Time Penicillins Allergy Severe swelling Verified 01/12/23 14:21 adhesive tape [ADHESIVE TAPE] Allergy Intermediate RASH Verified 01/12/23 14:21 amoxicillin [AMOXICILLIN] Allergy Intermediate RASH,SWELLI Verified 01/12/23 14:21 NG ibuprofen [From Motrin] Allergy Intermediate Hypertensio Verified 01/12/23 14:21 n latex Allergy Intermediate Rash Verified 01/07/23 16:58 Review of Systems Sugical H&P ROS: Negative: Constitution, Cardiovascular, Respiratory, Neurologic al, Psychiatric, Hem-Onc, Allergic/Immunologic, Gastrointestinal, Genitourinary, Musculoskeletal, Integumentary, Endocrine and Eyes/Ears/Nose/Throat Exam Surgical H&P Exam: Normal: HEENT, Normal: Heart, Normal: Lungs, Normal: Extremities, Normal: Abdomen, Normal: Skin and Normal: Neurological Plan Diagnosis/Plan: Unchanged I have reviewed the history and physical and performed a pertinent physical examination on my patient. No changes have occurred unless specified. Time Spent With Patient Time: Total time managing care of this patient today ____ minutes.
[2023-01-14 11:59] VITALS: BP 128/52; PULSE 89; RESP 16; TEMP 36.2; O2SAT 97; BMI 38.5
--- NOTE | 2023-01-14 12:53 | W.PM.OPN ---
Operative Note Operative Note Date of Service: 01/14/23 Narrative: Operative Information Procedure Description: EGD, Colonoscopy Indication: abdominal pain, altered bowel habits Anesthesia: MAC FLEXIBLE TRANSORAL UPPER GASTROINTESTINAL ENDOSCOPY AND COLONOSCOPY PROCEDURE NOTE UPPER ENDOSCOPY Consent: Indications for the procedure and potential complications of bleeding, perforation, reaction to medications and missed diagnosis were discussed with the patient and informed consent was obtained. Instrument: Olympus GIF H 190 J mid size upper endoscope Monitoring: Vital signs and clinical assessment, continuous EKG monitoring, Pulse oximetry, Carbon Dioxide monitoring and blood pressure monitoring were done throughout the procedure. Procedure: The patient was placed in the left lateral decubitis position and pre-procedure medications were administered and a bite block was placed. The endoscope was inserted into the mouth and advanced under direct vision to the third part of duodenum. A careful inspection was made as the upper endoscope was withdrawn including a retroflexed examination of the proximal stomach; Findings and interventions are described below. Findings: Larynx:normal Esophagus: GE junction at 37 cm, diaphragm hiatus at 37 cm, bogginess and erythema at GEJ, bx taken Stomach: Patchy erythema. Biopsies were obtained. Grade 2 flap valve on retroflexed examination of the cardia. Few small fundic gland polyps noted. The pylori outlet seemed tight, dilated with 20 mm balloon, no tears seen. Gastric movement seemed normal. Duodenum: 6-8 mm polypoid lesion in bulb removed with cold forceps -random bx also taken Intervention: Biopsies as noted above COLONOSCOPY Instrument: Olympus variable stiffness pediatric scope 190L Colonoscopy Monitoring: Vital signs and clinical assessment, continuous EKG monitoring, Pulse oximetry, Carbon Dioxide monitoring and blood pressure monitoring were done throughout the procedure. Colon withdrawal time was 10 minutes. Procedure: The patient was placed in the left lateral decubitis position and pre-procedure medications were administered. After a digital rectal examination of the ano-rectum, the video colonoscope was inserted into the rectum and advanced through the colon to the cecum/TI. The colonoscope was slowly withdrawn in a retrograde panoramic fashion and the colon mucosa was carefully examined including a retroflexed view of the rectum. Findings and interventions are described below. Procedure Difficulty: easy Findings: Terminal Ileum-not seen Random colon bx taken Cecum:not seen due to poor prep Ascending Colon: normal Transverse Colon -normal Descending Colon:normal Sigmoid Colon: normal Rectum: Retroflexion not done due to poor prep Anorectum - normal Colon preparation: [place] Bowel Preparation Scale Right colon; 0-1 Transverse colon: 1 Left colon; 1 (0 = Unprepared colon segment with mucosa not seen due to solid stool that cannot be cleared. 1 = Portion of mucosa of the colon segment seen, but other areas of the colon segment not well seen due to staining, residual stool and/or opaque liquid. 2 = Minor amount of residual staining, small fragments of stool and/or opaque liquid, but mucosa of colon segment seen well. 3 = Entire mucosa of colon segment seen well with no residual staining, small fragments of stool or opaque liquid) Impression and Post Procedure Diagnosis: Endoscopy Findings: gastritis esophagitis Colonoscopy Findings: poor prep Plan: Await Pathology results Repeat Colonoscopy in 6-12 months or earlier if clinically indicated, emphasize compliance with prep High fiber diet leaflet Above findings were reviewed with the patient and relevant handouts were provided if indicated.
[2023-01-14 13:27] VITALS: BP 106/61; PULSE 82; RESP 16; TEMP 36.2; O2SAT 92
[2023-01-14 13:42] VITALS: BP 103/58; PULSE 81; RESP 20; TEMP 37.3; O2SAT 92
== END 2023-01-14 14:40 | disposition home or self-care (01) ==
PROVIDERS: PCP Internal Medicine; Visit Provider Internal Medicine Gastroenterology
PROC: (CPT 43245; principal; 2023-01-14 12:30)
DX: R10.9 Unspecified abdominal pain (principal); R19.4 Change in bowel habit; K29.70 Gastritis, unspecified, without bleeding; K21.00 Gastro-esophageal reflux disease with esophagitis, without bleeding; K31.7 Polyp of stomach and duodenum; E11.43 Type 2 diabetes mellitus with diabetic autonomic (poly)neuropathy; K31.84 Gastroparesis; J45.40 Moderate persistent asthma, uncomplicated; G47.33 Obstructive sleep apnea (adult) (pediatric); Z79.899 Other long term (current) drug therapy; Z99.89 Dependence on other enabling machines and devices; Z88.0 Allergy status to penicillin; Z91.040 Latex allergy status
CPT/HCPCS: 43245; 43239; 45380; 82947; 88305; 88342; C1726; J2250

== ENCOUNTER 2023-02-04 12:12 | Outpatient (REF) | payer OTHER, SELFPAY | END 2023-02-04 12:13 | disposition home or self-care (01) | LOC: HO.HOSX 12:12 | PROVIDERS: Visit Provider Orthopaedic Surgery | DX: Z13.89 Encounter for screening for other disorder (principal) ==

== ENCOUNTER 2023-02-17 06:48 | Emergency (ER) | payer OTHER, SELFPAY ==
--- NOTE | ~2023-02-17 | XR_ITS ---
EXAMINATION: XR ABDOMEN KUB CLINICAL INDICATION: Left flank pain COMPARISON: CT abdomen of January 06, 2023 TECHNIQUE: AP view of the abdomen. FINDINGS: The bowel gas pattern is normal with no evidence of ileus or obstruction. No unusual soft tissue calcifications are noted. There is degenerative disc disease and facet arthropathy seen at the L5-S1 level. Sacroiliac joints unremarkable. Hip joints appear unremarkable. Status post cholecystectomy. XR/XR KUB IMPRESSION: No definite renal or ureteral calculi appreciated.
[2023-02-17 06:52] VITALS: BP 127/86; PULSE 76; RESP 18; TEMP 36.9; O2SAT 99; BMI 40.1
[2023-02-17 07:34] VITALS: BP 109/45; PULSE 75; RESP 19; TEMP 37.3; O2SAT 97
[2023-02-17 07:54] LABS: Basophils Absolute Auto 0.1 X10*3/uL (0.0-0.2); Basophils Percent Auto 0.4 % (0-2); Eosinophils Absolute Auto 0.4 X10*3/uL (0.0-0.4); Eosinophils Percent Auto 2.8 % (0-4); Hematocrit 36.2 % (37.0-47.0); Hemoglobin 11.2 g/dl (12.0-16.0); Imm Gran Abs Auto 0.09 X10*3/uL (0.00-0.03); Imm Gran Pct Auto 0.7 % (0.0-0.4); Lymphocytes Absolute Auto 2.6 X10*3/uL (1.2-4.9); Lymphocytes Percent Auto 19.7 % (20-40); MANUAL DIFF FLAG SCAN; Mean Corpuscular HGB Conc 30.9 g/dl (31.0-35.0); Mean Corpuscular Hemoglobin 22.8 pg (27.0-33.0); Mean Corpuscular Volume 73.6 fL (80.0-98.0); Monocytes Absolute Auto 0.7 X10*3/uL (0.1-1.2); Monocytes Percent Auto 5.4 % (2-11); Neutrophils Absolute Auto 9.5 x10*3/uL (2.0-8.3); PLT CLUMP 1; Red Blood Count 4.92 X10*6/uL (4.20-5.50); Red Cell Distribution Width 17.5 % (11.0-16.0); SCAN SMEAR FLAG 1
[2023-02-17 07:58] LABS: White Blood Count 13.4 X10*3/uL (4.8-10.8)
--- NOTE | 2023-02-17 07:59 | ED.GENADULT ---
HPI - General Adult General Chief complaint: Back Pain/Injury Stated complaint: lower back pain, knee & elbow pain Time Seen by Provider: 02/17/23 07:17 Source: patient Mode of arrival: ambulatory History of Present Illness HPI narrative: 57-year-old female with history of chronic back pain comes in with lower back pain without history of traumatic injury and not associated with fever, chills but patient also endorses she has a history of renal colic and states that the pain wraps around to her abdomen now and she also complains of right elbow pain and bilateral knee pain. She denies any shortness of breath, chest pain and denies any GI or symptoms. Related Data Home Medications Medication Instructions Recorded Confirmed vaporizers #1 ea 10/10/20 01/07/23 clonidine HCl 0.1 mg tablet 0.1 mg PO TID PRN Agitation or 09/19/21 01/07/23 Anxiety mirtazapine 30 mg tablet 30 mg PO BEDTIME 06/23/22 01/07/23 metoprolol tartrate 50 mg tablet 50 mg PO BID 10/01/22 01/07/23 insulin syringe-needle U-100 0.3 #10 ea 10/20/22 01/07/23 mL 31 gauge x 5/16 (BD Insulin Syringe Ultra-Fine) Previous Rx's Medication Instructions Recorded lancets 28 gauge (FreeStyle #100 ea 05/23/21 Lancets) diabetic supplies, miscellan. #1 ea 12/03/21 flash glucose sensor (FreeStyle #1 ea 12/03/21 Julianne 2 Sensor kit) heating pads #1 ea 01/21/22 Gel mattress overlay #1 ea 01/28/22 Toilet seat riser #1 ea 03/05/22 miscellaneous medical supply #1 ea 03/10/22 atorvastatin 10 mg tablet 10 mg PO BEDTIME 90 days #90 tabs 03/16/22 pen needle, diabetic 31 gauge x #100 ea 04/10/22 3/16 (BD Ultra-Fine Mini Pen Needle) diabetic shoes and inserts #1 ea 05/06/22 Shower Chair #1 ea 05/11/22 levothyroxine 112 mcg tablet 112 mcg PO DAILY 90 days #90 tabs 06/21/22 insulin syr/ndl U100 half desean 0.3 #100 ea 10/13/22 mL 31 gauge x 5/16 (BD Insulin Syringe Ultra-Fine (half unit)) hydrocortisone 1 % topical cream 1 appl topical TID PRN skin 07/22/22 (Anti-Itch (hydrocortisone)) irritation 30 days #28.4 grams lorazepam 1 mg tablet (Ativan) 1 mg PO BID PRN anxiety #14 tabs 08/03/22 ondansetron 4 mg disintegrating 4 mg PO Q8H PRN nausea and 08/07/22 tablet vomiting #30 tabs blood pressure test kit-wrist #1 ea 08/13/22 hydrocortisone 2.5 % topical cream 1 appl [place] BID PRN hemorrhoids #30 08/13/22 with perineal applicator grams (Proctosol HC) cyclobenzaprine 10 mg tablet 10 mg PO TID #90 tabs 08/20/22 duloxetine 60 mg capsule,delayed 90 mg PO DAILY 90 days #135 caps 08/24/22 release blood sugar diagnostic (FreeStyle #100 ea 09/01/22 Lite Strips) blood-glucose meter (FreeStyle #1 ea 09/01/22 Lite Meter kit) walker #1 ea 09/01/22 alcohol swabs (Alcohol Prep Pads) 1 pad topical .once a day 90 days 09/04/22 #100 ea metformin 500 mg tablet 500 mg PO BID #180 tabs 09/04/22 amlodipine 10 mg tablet 10 mg PO DAILY #90 tabs 09/15/22 albuterol sulfate 2.5 mg/3 mL 2.5 mg (3 mL) inhalation QID PRN 10/01/22 (0.083 %) solution for nebulization shortness of breath or wheezing #75 mL acetaminophen 650 mg 650 mg PO Q8H PRN arthritis pain 10/12/22 tablet,extended release (Tylenol #90 tabs Arthritis Pain) insulin syringe-needle U-100 0.5 #100 ea 10/17/22 mL 31 gauge x 5/16 (BD Insulin Syringe Ultra-Fine) dulaglutide 0.75 mg/0.5 mL 0.75 mg (0.5 mL) subcut QWEEK #2 mL 10/20/22 subcutaneous pen injector ([facility] [place]) torsemide 20 mg tablet 40 mg PO BID 30 days #120 tabs 10/21/22 metoclopramide HCl 10 mg tablet 10 mg PO QIDACHS #120 tabs 11/10/22 (Reglan) sennosides 8.6 mg capsule (senna) 17.2 mg PO BEDTIME constipation 30 11/10/22 days #60 caps fluticasone propionate 230 2 puff PO Q12H #12 grams 12/16/22 mcg-salmeterol 21 mcg/actuation HFA inhaler (Advair HFA) dicyclomine 10 mg capsule 10 mg PO BID PRN cramping #60 caps 12/28/22 gabapentin 800 mg tablet 800 mg PO TID 30 days #90 tabs 12/28/22 sod phos mono-sod phos dibasic 1.5 4 tab PO Q15M 5 doses #32 tabs 12/28/22 gram (1.102-0.398) tablet (OsmoPrep) peg-electrolyte solution 420 gram 240 ml PO Q10M #4,000 mL 12/31/22 oral solution water for irrigation, sterile 1 irrig irrigation DAILY 30 days 01/04/23 #500 mL albuterol sulfate 90 mcg/actuation 2 puff PO Q6H PRN for wheezing #18 01/05/23 aerosol inhaler (Ventolin HFA) ea cane #1 ea 01/07/23 insulin glargine 100 unit/mL 15 unit (0.15 mL) subcut QPM 90 01/07/23 subcutaneous solution (Lantus days #13.5 mL U-100 Insulin) meclizine 25 mg tablet 25 mg PO TID PRN dizziness 90 days 01/07/23 #270 tabs insulin lispro 100 unit/mL 5 unit (0.05 mL) subcut TID 90 01/08/23 subcutaneous solution days #13.5 mL metoclopramide HCl 5 mg tablet 5 mg PO BID PRN nausea and 01/12/23 (Reglan) vomiting #14 tabs sumatriptan succinate 50 mg tablet 50 mg PO Q2-4H PRN migraine 01/12/23 (Imitrex) headache #10 tabs sumatriptan succinate 25 mg tablet 25 mg PO ONCE PRN migraine 01/24/23 headache #12 tabs hydroxyzine HCl 50 mg tablet 50 mg PO BEDTIME #30 tabs 01/25/23 Allergies Allergy/AdvReac Type Severity Reaction Status Date / Time Penicillins Allergy Severe swelling Verified 02/17/23 06:54 adhesive tape [ADHESIVE TAPE] Allergy Intermediate RASH Verified 02/17/23 06:54 amoxicillin [AMOXICILLIN] Allergy Intermediate RASH,SWELLI Verified 02/17/23 06:54 NG ibuprofen [From Motrin] Allergy Intermediate Hypertensio Verified 02/17/23 06:54 n latex Allergy Intermediate Rash Verified 02/17/23 06:54 Review of Systems Review of Systems: Pertinent positives and negatives as stated in HPI [facility] Past Medical History Source: nursing notes reviewed Medical History Arthropathy of facet joint Asthma Bilateral shoulder pain Chronic idiopathic constipation Chronic pain syndrome Degeneration, intervertebral disc, cervical Diabetes mellitus Disc degeneration, lumbar Fibromyalgia LUDY (generalized anxiety disorder) Gastroparesis Goiter Hyperlipidemia LDL goal <70 Hypothyroidism Incontinence Insomnia Left knee pain Lumbar pain Moderately severe recurrent major depression Morbid (severe) obesity due to excess calories Multiple air fluid levels of small intestine determined by X-ray Renal calculi Sleep apnea Small bowel motility disorder Spondylosis of cervical spine at multiple levels without myelopathy Spondylosis of lumbar region without myelopathy or radiculopathy Surgical History Delivery by section History of cholecystectomy History of esophagogastroduodenoscopy (EGD) History of hernia surgery History of hysterectomy History of knee replacement procedure of right knee Hx of colonoscopy Family History Family History Father Past heart attack Anxiety Mother MOF (multiple organ failure) Brother HIV (human immunodeficiency virus infection) Sister Ovarian cancer Lupus Bone cancer Uterine cancer Tumor Daughter Guillain-[place] Sister Lupus History of open heart surgery Family/Other Depression FH: mental illness Maternal Aunt Breast cancer Maternal Aunt Tumor Social History Social History Household Members: None Household Members Other:: Housing: Apartment Are you a primary intensive care specialist to a significant other at home: No Do you presently have visiting nurse or other home services: Yes ([employer]IST) Alcohol intake: never Patient Tobacco Use Status: Never used Tobacco Smoked in Last 30 Days: No e-Cigarette/Vaping Use: Never Used Second Hand Smoke Exposure: Yes Advance Directives: Yes Advance Directives on File: Yes Advance Directives Date on File: 12/08/21 Patient : No service: No Current occupational status: unemployed and disabled Cognitive needs: No Hearing needs: No Vision needs: No Physical Exam ED Vital Signs: Vital Signs - 24 hr 02/17/23 06:52 02/17/23 07:34 02/17/23 08:05 Temperature 98.5 F 99.1 F 96.2 F L Pulse Rate 76 75 69 Respiratory Rate 18 19 14 Blood Pressure 127/86 109/45 L 100/60 Pulse Oximetry 99 97 96 Oxygen Delivery Method Room Air Room Air Room Air 02/17/23 08:43 Temperature 96.2 F L Pulse Rate 68 Respiratory Rate 22 H Blood Pressure 104/54 L Pulse Oximetry 97 Oxygen Delivery Method Room Air BMI result Body Mass Index 40.1 VITAL SIGNS: Reviewed. GENERAL: Well developed, well nourished, in no acute distress. HEAD: Normocephalic/atraumatic EYES: PERRLA, EOMI EARS: Ext canals without abnormality NOSE: Nares patent bilateral OROPHARYNX: no oral lesions noted, posterior pharynx clear NECK: Supple, no adenopathy LUNGS: Normal breath sounds. No adventitious sounds or accessory muscle use. SpO2<97> CARDIOVASCULAR: Regular rate and rhythm without noted murmurs, no JVD or lower extremity edema. ABDOMEN: Soft, non-tender, non-distended with bowel sounds. MUSCULOSKELETAL: No tenderness, deformities, or effusions noted on gross inspection. BACK: No midline vertebral tenderness or step-offs noted EXTREMITIES: No cyanosis, clubbing or edema. SKIN: Inspection of the skin reveals no rashes NEUROLOGIC: Alert and oriented x 4. Strength and sensation to light touch were grossly intact x 4. Medications Administered Discontinued Medications Generic Name Dose Route Start Last Admin Trade Name Freq PRN Reason Stop Dose Admin Acetaminophen 975 mg 02/17/23 08:59 02/17/23 09:09 Acetaminophen 325 Mg Tablet PO 02/17/23 09:00 975 mg ONCE ONE Administration Ibuprofen 400 mg 02/17/23 08:59 02/17/23 09:19 Ibuprofen 400 Mg Tablet PO 02/17/23 09:00 Not Given ONCE ONE Medical Decision Making Medical Decision Making MDM Narrative: 57-year-old female with history and clinical presentation suggestive of possible acute on chronic back pain with radicular symptoms given the radiation into abdominal wall no evidence to suggest acute infection, will ensure no urinary tract infection/pyelonephritis or renal colic. 0855: BP noted to be low without dizziness and pt states she took her clonidine prior to coming in. She denies taking any prescribed Ativan. Review of all investigations my interpretation is that patient has acute on chronic back pain there is no evidence to suggest acute intra-abdominal pathology, infectious etiology. Patient received combination analgesics but is allergic to adhesives so lidocaine patch was not provided. Patient is otherwise discharged home in stable condition with instructions to follow-up with primary care provider and ask for referral for physical therapy. Differential Diagnosis Please see the discussion above Lab Data Please see the discussion above 02/17/23 07:44 02/17/23 07:44 Labs: Lab Results 02/17/23 02/17/23 02/17/23 Range/Units 07:44 07:44 07:53 WBC 13.4 H (4.8-10.8) X10*3/uL RBC 4.92 (4.20-5.50) X10*6/uL Hgb 11.2 L (12.0-16.0) g/dl Hct 36.2 L (37.0-47.0) % MCV 73.6 L (80.0-98.0) fL MCH 22.8 L (27.0-33.0) pg MCHC 30.9 L (31.0-35.0) g/dl RDW 17.5 H (11.0-16.0) % Plt Count 263 (160-400) X10*3/uL MPV 11.4 (9.4-12.3) fL Immature Gran % (Auto) 0.7 H (0.0-0.4) % Neut % (Auto) 71.0 (45-73) % Lymph % (Auto) 19.7 L (20-40) % Tift % (Auto) 5.4 (2-11) % Eos % (Auto) 2.8 (0-4) % Baso % (Auto) 0.4 (0-2) % Lymph # (Auto) 2.6 (1.2-4.9) X10*3/uL Tift # (Auto) 0.7 (0.1-1.2) X10*3/uL Eos # (Auto) 0.4 (0.0-0.4) X10*3/uL Baso # (Auto) 0.1 (0.0-0.2) X10*3/uL Abs Immat Gran (auto) 0.09 H (0.00-0.03) X10*3/uL Absolute Neuts (auto) 9.5 H (2.0-8.3) x10*3/uL Absolute Nucleated RBC 0.000 (0.0-0.012) X10*3/uL Nucleated RBC % (auto) 0.0 (0.0-0.2) /100WBC Smear Tech's Comments VERIFIED Sodium 140 (135-145) mmol/L Potassium 4.2 (3.3-5.1) mmol/L Chloride 105 (96-108) mmol/L Carbon Dioxide 28 (22-29) mmol/L Anion Gap 11 L (12-20) BUN 12 (9-16) mg/dL Creatinine 0.75 (0.5-1.4) mg/dL Estim Creat Clear Calc 110.2 Estimated GFR > 60 Random Glucose 109 (60-115) mg/dL Calcium 9.3 (8.4-10.2) mg/dL Total Bilirubin 0.5 (0.0-1.0) mg/dL AST 13 (5-31) U/L ALT 17 (0-31) U/L Alkaline Phosphatase 111 (39-117) U/L Total Protein 7.2 (6.5-8.0) g/dL Albumin 4.0 (3.5-5.0) g/dL Lipase 38 (8-78) U/L Urine Color Yellow Urine Appearance Clear Urine pH 5.5 (5.0-9.0) Ur Specific [place] 1.025 (1.005-1.025) Urine Protein Negative (Neg-Trace) mg/dL Urine Glucose (UA) Negative (Negative) mg/dL Urine Ketones Negative (Negative) mg/dL Urine Blood Negative (Negative) Urine Nitrite Negative (Negative) Ur Leukocyte Esterase Small (1+) H (Negative) Urine RBC 0-2 (0-2) /HPF Urine WBC 6-10 H (0-5) /HPF Ur Squamous Epith Cells 6-10 (0-2) /HPF Urine Bacteria Trace (None Seen) Hyaline Casts 0-2 (0-2) /LPF Radiology Impression Radiologist Impression: My interpretation is in agreement with radiology's impression. External Record Review External record reviewed: Outpatient record and Prior outpatient labs Discharge Plan Discharge Clinical Impression: Acute exacerbation of chronic low back pain Patient Disposition: Home, Self-Care Instructions: Lower Back Exercises (ED) Additional Instructions: 1. Resume all home medications as prescribed. 2. Tylenol 1000 mg, orally, every 6 hours as needed for pain control. Do not exceed 4000 mg within 24 hours. 3. Follow-up with your primary care provider and discuss possible physical therapy referral for your chronic pain. Return to the ER for any worsening symptoms. Prescriptions: No Action (DME) lancets [FreeStyle Lancets] 28 gauge misc See Rx Instructions .Route Qty: 100 6RF Rx Instructions: BID (DME) FreeStyle Julianne 2 Sensor Kit See Rx Instructions .Route Qty: 1 2RF Rx Instructions: As directed (DME) diabetic supplies, miscellan. Misc See Rx Instructions .Route Qty: 1 0RF Rx Instructions: As directed (DME) heating pads Pad See Rx Instructions .Route Qty: 1 0RF Rx Instructions: As directed (DME) Gel mattress overlay Misc See Rx Instructions .Route Qty: 1 0RF Rx Instructions: As directed (DME) Toilet seat riser See Rx Instructions .Route .MEDSUPPLY Qty: 1 0RF Rx Instructions: As directed (DME) miscellaneous medical supply [facility] See Rx Instructions .ROUTE .MEDSUPPLY Qty: 1 0RF Rx Instructions: toilet seat elevator (DME) pen needle, diabetic [BD Ultra-Fine Mini Pen Needle] 31 gauge x 3/16 needle See Rx Instructions .Route Qty: 100 0RF Rx Instructions: As directed (DME) diabetic shoes and inserts See Rx Instructions .Route .MEDSUPPLY Qty: 1 1RF Rx Instructions: As directed levothyroxine 112 mcg tablet 112 mcg PO DAILY 90 Days Qty: 90 1RF (DME) BD Insulin Syringe (half unit) 0.3 mL 31 gauge x 5/16 syringe See Rx Instructions .Route Qty: 100 3RF Rx Instructions: Use 1 needle once a day hydrocortisone [Anti-Itch (HC)] 1 % cream 1 appl topical TID PRN (Reason: skin irritation) 30 Days Qty: 28.4 0RF duloxetine 60 mg capsule,delayed release(DR/EC) 90 mg PO DAILY 90 Days Qty: 135 1RF (DME) blood-glucose meter [FreeStyle Lite Meter] Kit See Rx Instructions .Route Qty: 1 0RF Rx Instructions: As directed (DME) FreeStyle Lite Strips Strip See Rx Instructions .Route Qty: 100 3RF Rx Instructions: use 1 test strip once a day (DME) walker Misc See Rx Instructions .Route Qty: 1 0RF Rx Instructions: walker with seat and wheels metformin 500 mg tablet 500 mg PO BID Qty: 180 2RF alcohol swabs [Alcohol Prep Pads] Pads, Medicated 1 pad topical .once a day 90 Days Qty: 100 0RF amlodipine 10 mg tablet 10 mg PO DAILY Qty: 90 1RF acetaminophen [Tylenol Arthritis Pain] 650 mg tablet extended release 650 mg PO Q8H PRN (Reason: arthritis pain) Qty: 90 3RF (DME) insulin syringe-needle U-100 [BD Insulin Syringe Ultra-Fine] 0.5 mL 31 gauge x 5/16 syringe See Rx Instructions .Route Qty: 100 3RF Rx Instructions: Use 1 three times a day Advair HFA 230-21 mcg/actuation HFA aerosol inhaler 2 puff PO Q12H Qty: 12 6RF dicyclomine 10 mg capsule 10 mg PO BID PRN (Reason: cramping) Qty: 60 3RF gabapentin 800 mg tablet 800 mg PO TID 30 Days Qty: 90 0RF OsmoPrep 1.5 gram tablet 4 tab PO Q15M Qty: 32 0RF Rx Instructions: administer with 240 mL of clear fluid peg-electrolyte soln 420 gram recon soln 240 ml PO Q10M Qty: 4000 0RF Rx Instructions: until fecal effluent is clear water for irrigation, sterile Solution 1 irrig irrigation DAILY 30 Days Qty: 500 6RF albuterol sulfate [Ventolin HFA] 90 mcg/actuation HFA aerosol inhaler 2 puff PO Q6H PRN (Reason: for wheezing) Qty: 18 1RF insulin lispro 100 unit/mL solution 5 unit subcut TID 90 Days Qty: 13.5 2RF sumatriptan succinate 25 mg tablet 25 mg PO ONCE PRN (Reason: migraine headache) Qty: 12 1RF hydroxyzine HCl 50 mg tablet 50 mg PO BEDTIME Qty: 30 3RF lorazepam [Ativan] 1 mg tablet 1 mg PO BID PRN (Reason: anxiety) Qty: 14 0RF ondansetron 4 mg tablet,disintegrating 4 mg PO Q8H PRN (Reason: nausea and vomiting) Qty: 30 0RF (DME) Shower Chair Misc See Rx Instructions .Route Qty: 1 0RF Rx Instructions: As directed sumatriptan succinate [Imitrex] 50 mg tablet 50 mg PO Q2-4H PRN (Reason: migraine headache) Qty: 10 0RF Rx Instructions: do not exceed 4 doses per 24 hrs metoclopramide HCl [Reglan] 5 mg tablet 5 mg PO BID PRN (Reason: nausea and vomiting) Qty: 14 0RF (DME) vaporizers Misc See Rx Instructions .ROUTE .MEDSUPPLY Qty: 1 Rx Instructions: As directed atorvastatin 10 mg tablet 10 mg PO BEDTIME 90 Days Qty: 90 1RF meclizine 25 mg tablet 25 mg PO TID PRN (Reason: dizziness) 90 Days Qty: 270 0RF (DME) cane Device See Rx Instructions .Route Qty: 1 0RF Rx Instructions: As directed insulin glargine [Lantus U-100 Insulin] 100 unit/mL solution 15 unit subcut QPM 90 Days Qty: 13.5 1RF clonidine HCl 0.1 mg tablet 0.1 mg PO TID PRN (Reason: Agitation or Anxiety) mirtazapine 30 mg tablet 30 mg PO BEDTIME metoprolol tartrate 50 mg tablet 50 mg PO BID albuterol sulfate 2.5 mg /3 mL (0.083 %) solution for nebulization 2.5 mg inhalation QID PRN (Reason: shortness of breath or wheezing) Qty: 75 0RF (DME) insulin syringe-needle U-100 [BD Insulin Syringe Ultra-Fine] 0.3 mL 31 gauge x 5/16 syringe See Rx Instructions .ROUTE .MEDSUPPLY Qty: 10 Rx Instructions: As directed Trulicity 0.75 mg/0.5 mL pen injector 0.75 mg subcut QWEEK Qty: 2 5RF hydrocortisone [Proctosol HC] 2.5 % cream with perineal applicator 1 appl [place] BID PRN (Reason: hemorrhoids) Qty: 30 3RF (DME) blood pressure test kit-wrist Kit See Rx Instructions .ROUTE .MEDSUPPLY Qty: 1 0RF Rx Instructions: to check blood pressure cyclobenzaprine 10 mg tablet 10 mg PO TID Qty: 90 0RF metoclopramide HCl [Reglan] 10 mg tablet 10 mg PO QIDACHS Qty: 120 6RF Rx Instructions: Provider aware possible interactions and is monitoring patient senna 8.6 mg capsule 17.2 mg PO BEDTIME 30 Days Qty: 60 3RF torsemide 20 mg tablet 40 mg PO BID 30 Days Qty: 120 6RF Referrals: Jenny Mendosa MD [Primary Care Provider] -
[2023-02-17 08:01] LABS: Appearance Urine Clear; Color Urine Yellow; Glucose Urine UA Negative (Negative); Leukocyte Esterase Urine Small (1+) (Negative); Nitrite Urine Negative (Negative); PH 5.5 (5.0-9.0); Specific Gravity - Urine 1.025 (1.005-1.025); UMIC TRIGGER UACC YES; Urine Blood Negative (Negative); Urine Ketones Negative (Negative); Urine Protein Negative (Neg-Trace)
[2023-02-17 08:05] VITALS: BP 100/60; PULSE 69; RESP 14; TEMP 35.7; O2SAT 96
[2023-02-17 08:07] LABS: Bacteria Urine Trace (None Seen); Hyaline Casts Urine 0-2 /LPF (0-2); RBC Urine 0-2 /HPF (0-2); UACC Culture Trigger YES
[2023-02-17 08:12] LABS: Alanine Aminotransferase 17 U/L (0-31); Alkaline Phosphatase 111 U/L (39-117); Anion Gap 11 (12-20); Aspartate Amino Transferase 13 U/L (5-31); Bilirubin Total 0.5 mg/dL (0.0-1.0); Blood Urea Nitrogen 12 mg/dL (9-16); Calcium 9.3 mg/dL (8.4-10.2); Carbon Dioxide 28 mmol/L (22-29); Chloride 105 mmol/L (96-108); Creatinine Clr Calc Pharmacy 110.2; Estimated Glomerular Filt Rate > 60; Glucose Random 109 mg/dL (60-115); Lipase 38 U/L (8-78); Potassium 4.2 mmol/L (3.3-5.1); Sodium 140 mmol/L (135-145); Total Protein 7.2 g/dL (6.5-8.0)
[2023-02-17 08:21] LABS: Mean Platelet Volume 11.4 fL (9.4-12.3); Platelet Count 263 X10*3/uL (160-400)
[2023-02-17 08:22] LABS: SLIDE REVIEW VERIFIED
[2023-02-17 08:43] VITALS: BP 104/54; PULSE 68; RESP 22; TEMP 36.8; O2SAT 97
[2023-02-17] MEDS: Acetaminophen 325 MG TABLET 975 MG PO (09:09)
[2023-02-17 10:24] VITALS: BP 95/50; PULSE 64; RESP 17; TEMP 36.8; O2SAT 97
== END 2023-02-17 10:42 | disposition home or self-care (01) ==
PROVIDERS: Emergency Provider Student in an Organized Health Care Education/Training Program; PCP Internal Medicine
DX: M54.50 Low back pain, unspecified (principal); R10.2 Pelvic and perineal pain; M25.521 Pain in right elbow; M25.562 Pain in left knee; E11.9 Type 2 diabetes mellitus without complications; M25.561 Pain in right knee; Z79.899 Other long term (current) drug therapy; Z79.4 Long term (current) use of insulin
CPT/HCPCS: 36415; 74018; 80053; 81001; 81003; 83690; 85025; 87086; 99283; 99284

== ENCOUNTER 2023-03-07 21:03 | Emergency (ER) | payer OTHER, SELFPAY ==
[2023-03-07 21:36] VITALS: BP 151/70; PULSE 97; RESP 18; TEMP 36.3; O2SAT 97; BMI 39.0
[2023-03-08 01:08] VITALS: BP 110/68; PULSE 88; RESP 18; TEMP 37.2; O2SAT 95
--- NOTE | 2023-03-08 01:26 | ED_ITS ---
HPI - General Adult General Chief complaint: Back Pain/Injury Stated complaint: lower back pain Time Seen by Provider: 03/08/23 00:48 Source: patient, RN notes reviewed and old records reviewed Mode of arrival: ambulatory Limitations: no limitations History of Present Illness HPI narrative: 58-year-old female with past medical history significant for chronic back pain, hypertension, anxiety, GERD, vertigo, sleep apnea, obesity presents for evaluation of back pain. Patient reports 3 weeks of lower back pain Patient reports that her pain management doctor used to prescribe her Percocet She states that she missed an appointment and now her pain management doctor will no longer see her Patient states that she has 7/10 lower back pain. She denies any new injury, fevers, chills, numbness, tingling. She ambulates with a walker at baseline and is still able to do so She states that she takes tramadol and Tylenol at home without any improvement She states that lidocaine patches do not help No other complaints or concerns at this time Related Data Home Medications Medication Instructions Recorded Confirmed vaporizers #1 ea 10/10/20 01/07/23 clonidine HCl 0.1 mg tablet 0.1 mg PO TID PRN Agitation or 09/19/21 01/07/23 Anxiety mirtazapine 30 mg tablet 30 mg PO BEDTIME 06/23/22 01/07/23 insulin syringe-needle U-100 0.3 #10 ea 10/20/22 01/07/23 mL 31 gauge x 5/16 (BD Insulin Syringe Ultra-Fine) Previous Rx's Medication Instructions Recorded lancets 28 gauge (FreeStyle #100 ea 05/23/21 Lancets) diabetic supplies, miscellan. #1 ea 12/03/21 flash glucose sensor (FreeStyle #1 ea 12/03/21 Julianne 2 Sensor kit) heating pads #1 ea 01/21/22 Gel mattress overlay #1 ea 01/28/22 Toilet seat riser #1 ea 03/05/22 miscellaneous medical supply #1 ea 03/10/22 pen needle, diabetic 31 gauge x #100 ea 04/10/22 3/16 (BD Ultra-Fine Mini Pen Needle) Shower Chair #1 ea 05/11/22 insulin syr/ndl U100 half desean 0.3 #100 ea 07/16/22 mL 31 gauge x 5/16 (BD Insulin Syringe Ultra-Fine (half unit)) hydrocortisone 1 % topical cream 1 appl topical TID PRN skin 07/22/22 (Anti-Itch (hydrocortisone)) irritation 30 days #28.4 grams lorazepam 1 mg tablet (Ativan) 1 mg PO BID PRN anxiety #14 tabs 08/03/22 ondansetron 4 mg disintegrating 4 mg PO Q8H PRN nausea and 08/07/22 tablet vomiting #30 tabs blood pressure test kit-wrist #1 ea 08/13/22 hydrocortisone 2.5 % topical cream 1 appl AR BID PRN hemorrhoids #30 08/13/22 with perineal applicator grams (Proctosol HC) cyclobenzaprine 10 mg tablet 10 mg PO TID #90 tabs 08/20/22 duloxetine 60 mg capsule,delayed 90 mg PO DAILY 90 days #135 caps 08/24/22 release blood sugar diagnostic (FreeStyle #100 ea 09/01/22 Lite Strips) blood-glucose meter (FreeStyle #1 ea 09/01/22 Lite Meter kit) walker #1 ea 09/01/22 metformin 500 mg tablet 500 mg PO BID #180 tabs 09/04/22 albuterol sulfate 2.5 mg/3 mL 2.5 mg (3 mL) inhalation QID PRN 10/01/22 (0.083 %) solution for nebulization shortness of breath or wheezing #75 mL insulin syringe-needle U-100 0.5 #100 ea 10/17/22 mL 31 gauge x 5/16 (BD Insulin Syringe Ultra-Fine) dulaglutide 0.75 mg/0.5 mL 0.75 mg (0.5 mL) subcut QWEEK #2 mL 10/20/22 subcutaneous [facility] torsemide 20 mg tablet 40 mg PO BID 30 days #120 tabs 10/21/22 metoclopramide HCl 10 mg tablet 10 mg PO QIDACHS #120 tabs 11/10/22 (Reglan) fluticasone propionate 230 2 puff PO Q12H #12 grams 12/16/22 mcg-salmeterol 21 mcg/actuation HFA inhaler (Advair HFA) dicyclomine 10 mg capsule 10 mg PO BID PRN cramping #60 caps 12/28/22 sod phos mono-sod phos dibasic 1.5 4 tab PO Q15M 5 doses #32 tabs 12/28/22 gram (1.102-0.398) tablet (OsmoPrep) peg-electrolyte solution 420 gram 240 ml PO Q10M #4,000 mL 12/31/22 oral solution water for irrigation, sterile 1 irrig irrigation DAILY 30 days 01/04/23 #500 mL cane #1 ea 01/07/23 insulin glargine 100 unit/mL 15 unit (0.15 mL) subcut QPM 90 01/07/23 subcutaneous solution (Lantus days #13.5 mL U-100 Insulin) meclizine 25 mg tablet 25 mg PO TID PRN dizziness 90 days 01/07/23 #270 tabs insulin lispro 100 unit/mL 5 unit (0.05 mL) subcut TID 90 01/08/23 subcutaneous solution days #13.5 mL metoclopramide HCl 5 mg tablet 5 mg PO BID PRN nausea and 01/12/23 (Reglan) vomiting #14 tabs sumatriptan succinate 50 mg tablet 50 mg PO Q2-4H PRN migraine 01/12/23 (Imitrex) headache #10 tabs sumatriptan succinate 25 mg tablet 25 mg PO ONCE PRN migraine 01/24/23 headache #12 tabs hydroxyzine HCl 50 mg tablet 50 mg PO BEDTIME #30 tabs 01/25/23 alcohol swabs (Alcohol Prep Pads) 1 pad topical .once a day 90 days 02/18/23 #100 ea sennosides 8.6 mg capsule (senna) 17.2 mg PO BEDTIME constipation 90 02/18/23 days #180 tabs amlodipine 10 mg tablet 10 mg PO DAILY #90 tabs 02/22/23 metoprolol tartrate 50 mg tablet 50 mg PO BID 90 days #180 tabs 02/22/23 acetaminophen 650 mg 650 mg PO Q8H PRN arthritis pain 02/23/23 tablet,extended release (Tylenol #90 tabs Arthritis Pain) atorvastatin 10 mg tablet 10 mg PO BEDTIME 90 days #90 tabs 02/23/23 gabapentin 800 mg tablet 800 mg PO TID 30 days #90 tabs 02/23/23 levothyroxine 112 mcg tablet 112 mcg PO DAILY 90 days #90 tabs 02/23/23 metolazone 2.5 mg tablet 2.5 mg PO 3XW #39 tabs 02/23/23 albuterol sulfate 90 mcg/actuation 2 puff PO Q6H PRN for wheezing #18 02/28/23 aerosol inhaler (Ventolin HFA) ea diabetic shoes and inserts #1 ea 03/04/23 methocarbamol 750 mg tablet 750 mg PO QID muscle spasm #20 tabs 03/08/23 Allergies Allergy/AdvReac Type Severity Reaction Status Date / Time Penicillins Allergy Severe swelling Verified 02/17/23 06:54 adhesive tape [ADHESIVE TAPE] Allergy Intermediate RASH Verified 02/17/23 06:54 amoxicillin [AMOXICILLIN] Allergy Intermediate RASH,SWELLI Verified 02/17/23 06:54 NG ibuprofen [From Motrin] Allergy Intermediate Hypertensio Verified 02/17/23 06:54 n latex Allergy Intermediate Rash Verified 02/17/23 06:54 Review of Systems Constitutional: Constitutional: Reports as per HPI, Denies chills, Denies fatigue, Denies fever(s) and Denies headache(s) ENT: Denies headache(s) Cardiovascular: Cardiovascular: Denies chest pain and Denies dyspnea Respiratory: Respiratory: Denies cough and Denies dyspnea Gastrointestinal: Gastrointestinal: Denies abdominal pain, Denies constipation and Denies vomiting Genitourinary: Genitourinary: Denies dysuria Musculoskeletal: Musculoskeletal: Reports back pain Neurologic: Denies headache(s) and Denies focal weakness Endocrine: Endocrine: Denies fatigue PMFSH Past Medical History Medical History Arthropathy of facet joint Asthma Bilateral shoulder pain Chronic idiopathic constipation Chronic pain syndrome Degeneration, intervertebral disc, cervical Diabetes mellitus Disc degeneration, lumbar Fibromyalgia LUDY (generalized anxiety disorder) Gastroparesis Goiter Hyperlipidemia LDL goal <70 Hypothyroidism Incontinence Insomnia Left knee pain Lumbar pain Moderately severe recurrent major depression Morbid (severe) obesity due to excess calories Multiple air fluid levels of small intestine determined by X-ray Renal calculi Sleep apnea Small bowel motility disorder Spondylosis of cervical spine at multiple levels without myelopathy Spondylosis of lumbar region without myelopathy or radiculopathy Surgical History Delivery by section History of cholecystectomy History of esophagogastroduodenoscopy (EGD) History of hernia surgery History of hysterectomy History of knee replacement procedure of right knee Hx of colonoscopy Family History Family History Father Past heart attack Anxiety Mother MOF (multiple organ failure) Brother HIV (human immunodeficiency virus infection) Sister Ovarian cancer Lupus Bone cancer Uterine cancer Tumor Daughter Guillain-[place] Sister Lupus History of open heart surgery Family/Other Depression FH: mental illness Maternal Aunt Breast cancer Maternal Aunt Tumor Social History Social History Household Members: None Household Members Other:: Housing: Apartment Are you a primary director of managed care to a significant other at home: No Do you presently have visiting nurse or other home services: Yes ([employer]) Alcohol intake: never Patient Tobacco Use Status: Never used Tobacco Smoked in Last 30 Days: No e-Cigarette/Vaping Use: Never Used Second Hand Smoke Exposure: Yes Use of substances other than those prescribed or required for medical reasons: No Advance Directives: Yes Advance Directives on File: Yes Advance Directives Date on File: 12/08/21 service: No Current occupational status: unemployed and disabled Cognitive needs: No Hearing needs: No Vision needs: No Physical Exam ED Vital Signs: Vital Signs - 24 hr 03/07/23 21:36 03/08/23 01:08 Temperature 97.3 F 98.9 F Pulse Rate 97 88 Respiratory Rate 18 18 Blood Pressure 151/70 H 110/68 Pulse Oximetry 97 95 Oxygen Delivery Method Room Air Room Air BMI result Body Mass Index 39.0 Const General: healthy appearing, comfortable, no acute distress, alert and awake Nutritional Appearance: well nourished Orientation/consciousness: patient oriented x3 Eyes Eyelids: Yes eyelids normal Conjunctivae: conjunctivae normal Sclerae: sclerae normal Corneas: corneas normal Pupils: Equal, round and reactive pupils present EOM: EOMs intact bilaterally Neck Neck: Yes full ROM Resp Effort & Inspection: normal respiratory effort, able to speak in complete sentences and not labored Back/Spine/Pelvis Other: Right lumbar paraspinous muscle tenderness. Negative straight leg raise Skin General skin exam: no rashes or lesions noted and elasticity normal Neuro General: patient oriented x3 Cranial nerves: Yes Equal, round and reactive pupils present and Yes Bilaterally intact EOM present Cognition (Neuro): normal cognition Extrem Other: Moving all extremities well without any obvious deformities Medical Decision Making Medical Decision Making MDM Narrative: Patient has chronic back pain. She denies any new injury, there are no warning flags for cauda equina syndrome. No fevers or chills, no history of IV drug abuse. Will trial methocarbamol. I explained to the patient that I will not be prescribing opiates for chronic pain and she has Tylenol and tramadol at home. The patient will be referred to [facility]. She reports a history of corticosteroid injections that did help her pain Differential Diagnosis Acute on chronic lower back pain Sciatica Radiculopathy Chronic back pain Vertebral fracture Compression fracture Muscle spasms Discharge Plan Discharge Clinical Impression: Acute low back pain Patient Disposition: Home, Self-Care Instructions: Acute Low Back Pain (ED) Additional Instructions: Continue your home medications as prescribed. You may use methocarbamol up to 4 times daily as needed for muscle spasms and lower back pain Follow-up with your primary doctor You may also follow-up with [facility] at in [place], [place] Prescriptions: New methocarbamol 750 mg tablet 750 mg PO QID Qty: 20 0RF No Action (DME) lancets [FreeStyle Lancets] [facility] See Rx Instructions .Route Qty: 100 6RF Rx Instructions: BID (DME) FreeStyle Julianne 2 Sensor Kit See Rx Instructions .Route Qty: 1 2RF Rx Instructions: As directed (DME) diabetic supplies, miscellan. Misc See Rx Instructions .Route Qty: 1 0RF Rx Instructions: As directed (DME) heating pads Pad See Rx Instructions .Route Qty: 1 0RF Rx Instructions: As directed (DME) Gel mattress overlay Misc See Rx Instructions .Route Qty: 1 0RF Rx Instructions: As directed (DME) Toilet seat riser See Rx Instructions .Route .MEDSUPPLY Qty: 1 0RF Rx Instructions: As directed (DME) miscellaneous medical supply [facility] [place] See Rx Instructions .ROUTE .MEDSUPPLY Qty: 1 0RF Rx Instructions: toilet seat elevator (DME) pen needle, diabetic [BD Ultra-Fine Mini Pen Needle] 31 gauge x 3/16 needle See Rx Instructions .Route Qty: 100 0RF Rx Instructions: As directed (DME) BD Insulin Syringe (half unit) 0.3 mL 31 gauge x 5/16 syringe See Rx Instructions .Route Qty: 100 3RF Rx Instructions: Use 1 needle once a day hydrocortisone [Anti-Itch (HC)] 1 % cream 1 appl topical TID PRN (Reason: skin irritation) 30 Days Qty: 28.4 0RF duloxetine 60 mg capsule,delayed release(DR/EC) 90 mg PO DAILY 90 Days Qty: 135 1RF (DME) blood-glucose meter [FreeStyle Lite Meter] Kit See Rx Instructions .Route Qty: 1 0RF Rx Instructions: As directed (DME) FreeStyle Lite Strips Strip See Rx Instructions .Route Qty: 100 3RF Rx Instructions: use 1 test strip once a day (DME) walker Misc See Rx Instructions .Route Qty: 1 0RF Rx Instructions: walker with seat and wheels metformin 500 mg tablet 500 mg PO BID Qty: 180 2RF (DME) insulin syringe-needle U-100 [BD Insulin Syringe Ultra-Fine] 0.5 mL 31 gauge x 5/16 syringe See Rx Instructions .Route Qty: 100 3RF Rx Instructions: Use 1 three times a day Advair HFA 230-21 mcg/actuation HFA aerosol inhaler 2 puff PO Q12H Qty: 12 6RF dicyclomine 10 mg capsule 10 mg PO BID PRN (Reason: cramping) Qty: 60 3RF OsmoPrep 1.5 gram tablet 4 tab PO Q15M Qty: 32 0RF Rx Instructions: administer with 240 mL of clear fluid peg-electrolyte soln 420 gram recon soln 240 ml PO Q10M Qty: 4000 0RF Rx Instructions: until fecal effluent is clear water for irrigation, sterile Solution 1 irrig irrigation DAILY 30 Days Qty: 500 6RF insulin lispro 100 unit/mL solution 5 unit subcut TID 90 Days Qty: 13.5 2RF sumatriptan succinate 25 mg tablet 25 mg PO ONCE PRN (Reason: migraine headache) Qty: 12 1RF hydroxyzine HCl 50 mg tablet 50 mg PO BEDTIME Qty: 30 3RF senna 8.6 mg capsule 17.2 mg PO BEDTIME 90 Days Qty: 180 3RF alcohol swabs [Alcohol Prep Pads] Pads, Medicated 1 pad topical .once a day 90 Days Qty: 100 0RF metoprolol tartrate 50 mg tablet 50 mg PO BID 90 Days Qty: 180 1RF amlodipine 10 mg tablet 10 mg PO DAILY Qty: 90 1RF levothyroxine 112 mcg tablet 112 mcg PO DAILY 90 Days Qty: 90 1RF atorvastatin 10 mg tablet 10 mg PO BEDTIME 90 Days Qty: 90 1RF acetaminophen [Tylenol Arthritis Pain] 650 mg tablet extended release 650 mg PO Q8H PRN (Reason: arthritis pain) Qty: 90 3RF gabapentin 800 mg tablet 800 mg PO TID 30 Days Qty: 90 0RF metolazone 2.5 mg tablet 2.5 mg PO 3XW Qty: 39 1RF albuterol sulfate [Ventolin HFA] 90 mcg/actuation HFA aerosol inhaler 2 puff PO Q6H PRN (Reason: for wheezing) Qty: 18 1RF (DME) diabetic shoes and inserts See Rx Instructions .Route .MEDSUPPLY Qty: 1 1RF Rx Instructions: As directed lorazepam [Ativan] 1 mg tablet 1 mg PO BID PRN (Reason: anxiety) Qty: 14 0RF ondansetron 4 mg tablet,disintegrating 4 mg PO Q8H PRN (Reason: nausea and vomiting) Qty: 30 0RF (DME) Shower Chair Misc See Rx Instructions .Route Qty: 1 0RF Rx Instructions: As directed sumatriptan succinate [Imitrex] 50 mg tablet 50 mg PO Q2-4H PRN (Reason: migraine headache) Qty: 10 0RF Rx Instructions: do not exceed 4 doses per 24 hrs metoclopramide HCl [Reglan] 5 mg tablet 5 mg PO BID PRN (Reason: nausea and vomiting) Qty: 14 0RF (DME) vaporizers Misc See Rx Instructions .ROUTE .MEDSUPPLY Qty: 1 Rx Instructions: As directed meclizine 25 mg tablet 25 mg PO TID PRN (Reason: dizziness) 90 Days Qty: 270 0RF (DME) cane Device See Rx Instructions .Route Qty: 1 0RF Rx Instructions: As directed insulin glargine [Lantus U-100 Insulin] 100 unit/mL solution 15 unit subcut QPM 90 Days Qty: 13.5 1RF clonidine HCl 0.1 mg tablet 0.1 mg PO TID PRN (Reason: Agitation or Anxiety) mirtazapine 30 mg tablet 30 mg PO BEDTIME albuterol sulfate 2.5 mg /3 mL (0.083 %) solution for nebulization 2.5 mg inhalation QID PRN (Reason: shortness of breath or wheezing) Qty: 75 0RF (DME) insulin syringe-needle U-100 [BD Insulin Syringe Ultra-Fine] 0.3 mL 31 gauge x 5/16 syringe See Rx Instructions .ROUTE .MEDSUPPLY Qty: 10 Rx Instructions: As directed Trulicity 0.75 mg/0.5 mL pen injector 0.75 mg subcut QWEEK Qty: 2 5RF hydrocortisone [Proctosol HC] 2.5 % cream with perineal applicator 1 appl AR BID PRN (Reason: hemorrhoids) Qty: 30 3RF (DME) blood pressure test kit-wrist Kit See Rx Instructions .ROUTE .MEDSUPPLY Qty: 1 0RF Rx Instructions: to check blood pressure cyclobenzaprine 10 mg tablet 10 mg PO TID Qty: 90 0RF metoclopramide HCl [Reglan] 10 mg tablet 10 mg PO QIDACHS Qty: 120 6RF Rx Instructions: Provider aware possible interactions and is monitoring patient torsemide 20 mg tablet 40 mg PO BID 30 Days Qty: 120 6RF
[2023-03-08] MEDS: methocarbamoL 750 MG TABLET PO (01:35)
== END 2023-03-08 01:40 | disposition home or self-care (01) ==
PROVIDERS: Emergency Provider Emergency Medicine; PCP Internal Medicine
DX: M54.50 Low back pain, unspecified (principal); Z79.899 Other long term (current) drug therapy
CPT/HCPCS: 99283; 99284

== ENCOUNTER 2023-04-02 19:47 | Emergency (ER) | payer OTHER, SELFPAY ==
[2023-04-02 19:49] VITALS: BP 176/88; PULSE 103; RESP 18; TEMP 36.1; O2SAT 95; BMI 38.5
--- NOTE | 2023-04-02 19:51 | ED_ITS ---
HPI - General Adult General Chief complaint: Headache Stated complaint: severe back pain , dizziness Time Seen by Provider: 04/02/23 22:38 Source: patient Mode of arrival: ambulatory Limitations: no limitations History of Present Illness HPI narrative: Patient comes to the emergency room complaining of headache, lightheadedness with standing. Patient denies chest pain abdominal pain, no shortness of breath. Patient also complaining of right lower back pain, denies any falls or any injuries. Related Data Home Medications Medication Instructions Recorded Confirmed vaporizers #1 ea 10/10/20 01/07/23 clonidine HCl 0.1 mg tablet 0.1 mg PO TID PRN Agitation or 09/19/21 01/07/23 Anxiety mirtazapine 30 mg tablet 30 mg PO BEDTIME 06/23/22 01/07/23 insulin syringe-needle U-100 0.3 #10 ea 10/20/22 01/07/23 mL 31 gauge x 5/16 (BD Insulin Syringe Ultra-Fine) Previous Rx's Medication Instructions Recorded lancets 28 gauge (FreeStyle #100 ea 05/23/21 Lancets) diabetic supplies, miscellan. #1 ea 12/03/21 flash glucose sensor (FreeStyle #1 ea 12/03/21 Julianne 2 Sensor kit) heating pads #1 ea 01/21/22 Gel mattress overlay #1 ea 01/28/22 Toilet seat riser #1 ea 03/05/22 miscellaneous medical supply #1 ea 03/10/22 pen needle, diabetic 31 gauge x #100 ea 04/10/22 3/16 (BD Ultra-Fine Mini Pen Needle) Shower Chair #1 ea 05/11/22 insulin syr/ndl U100 half desean 0.3 #100 ea 07/16/22 mL 31 gauge x 5/16 (BD Insulin Syringe Ultra-Fine (half unit)) hydrocortisone 1 % topical cream 1 appl topical TID PRN skin 07/22/22 (Anti-Itch (hydrocortisone)) irritation 30 days #28.4 grams lorazepam 1 mg tablet (Ativan) 1 mg PO BID PRN anxiety #14 tabs 08/03/22 ondansetron 4 mg disintegrating 4 mg PO Q8H PRN nausea and 08/07/22 tablet vomiting #30 tabs blood pressure test kit-wrist #1 ea 08/13/22 hydrocortisone 2.5 % topical cream 1 appl ME BID PRN hemorrhoids #30 08/13/22 with perineal applicator grams (Proctosol HC) cyclobenzaprine 10 mg tablet 10 mg PO TID #90 tabs 08/20/22 duloxetine 60 mg capsule,delayed 90 mg PO DAILY 90 days #135 caps 08/24/22 release blood sugar diagnostic (FreeStyle #100 ea 09/01/22 Lite Strips) blood-glucose meter (FreeStyle #1 ea 09/01/22 Lite Meter kit) walker #1 ea 09/01/22 metformin 500 mg tablet 500 mg PO BID #180 tabs 09/04/22 albuterol sulfate 2.5 mg/3 mL 2.5 mg (3 mL) inhalation QID PRN 10/01/22 (0.083 %) solution for nebulization shortness of breath or wheezing #75 mL insulin syringe-needle U-100 0.5 #100 ea 10/17/22 mL 31 gauge x 5/16 (BD Insulin Syringe Ultra-Fine) dulaglutide 0.75 mg/0.5 mL 0.75 mg (0.5 mL) subcut QWEEK #2 mL 10/20/22 subcutaneous pen injector ([facility]) torsemide 20 mg tablet 40 mg PO BID 30 days #120 tabs 10/21/22 metoclopramide HCl 10 mg tablet 10 mg PO QIDACHS #120 tabs 11/10/22 (Reglan) fluticasone propionate 230 2 puff PO Q12H #12 grams 12/16/22 mcg-salmeterol 21 mcg/actuation HFA inhaler (Advair HFA) sod phos mono-sod phos dibasic 1.5 4 tab PO Q15M 5 doses #32 tabs 12/28/22 gram (1.102-0.398) tablet (OsmoPrep) peg-electrolyte solution 420 gram 240 ml PO Q10M #4,000 mL 12/31/22 oral solution water for irrigation, sterile 1 irrig irrigation DAILY 30 days 01/04/23 #500 mL cane #1 ea 01/07/23 meclizine 25 mg tablet 25 mg PO TID PRN dizziness 90 days 01/07/23 #270 tabs insulin lispro 100 unit/mL 5 unit (0.05 mL) subcut TID 90 01/08/23 subcutaneous solution days #13.5 mL metoclopramide HCl 5 mg tablet 5 mg PO BID PRN nausea and 01/12/23 (Reglan) vomiting #14 tabs sumatriptan succinate 50 mg tablet 50 mg PO Q2-4H PRN migraine 01/12/23 (Imitrex) headache #10 tabs sumatriptan succinate 25 mg tablet 25 mg PO ONCE PRN migraine 01/24/23 headache #12 tabs hydroxyzine HCl 50 mg tablet 50 mg PO BEDTIME #30 tabs 01/25/23 alcohol swabs (Alcohol Prep Pads) 1 pad topical .once a day 90 days 02/18/23 #100 ea sennosides 8.6 mg capsule (senna) 17.2 mg PO BEDTIME constipation 90 02/18/23 days #180 tabs amlodipine 10 mg tablet 10 mg PO DAILY #90 tabs 02/22/23 metoprolol tartrate 50 mg tablet 50 mg PO BID 90 days #180 tabs 02/22/23 acetaminophen 650 mg 650 mg PO Q8H PRN arthritis pain 02/23/23 tablet,extended release (Tylenol #90 tabs Arthritis Pain) atorvastatin 10 mg tablet 10 mg PO BEDTIME 90 days #90 tabs 02/23/23 gabapentin 800 mg tablet 800 mg PO TID 30 days #90 tabs 02/23/23 levothyroxine 112 mcg tablet 112 mcg PO DAILY 90 days #90 tabs 02/23/23 metolazone 2.5 mg tablet 2.5 mg PO 3XW #39 tabs 02/23/23 albuterol sulfate 90 mcg/actuation 2 puff PO Q6H PRN for wheezing #18 02/28/23 aerosol inhaler (Ventolin HFA) ea diabetic shoes and inserts #1 ea 03/04/23 methocarbamol 750 mg tablet 750 mg PO QID muscle spasm #20 tabs 03/09/23 insulin glargine 100 unit/mL 15 unit (0.15 mL) subcut QPM 90 03/16/23 subcutaneous solution (Lantus days #13.5 mL U-100 Insulin) dicyclomine 10 mg capsule 10 mg PO BID PRN for cramps #180 03/25/23 caps Allergies Allergy/AdvReac Type Severity Reaction Status Date / Time Penicillins Allergy Severe swelling Verified 02/17/23 06:54 adhesive tape [ADHESIVE TAPE] Allergy Intermediate RASH Verified 02/17/23 06:54 amoxicillin [AMOXICILLIN] Allergy Intermediate RASH,SWELLI Verified 02/17/23 06:54 NG ibuprofen [From Motrin] Allergy Intermediate Hypertensio Verified 02/17/23 06:54 n latex Allergy Intermediate Rash Verified 02/17/23 06:54 Review of Systems Review of Systems: Constitutional : No Weight loss, No Fever, No Chills, No Night Sweats, complaint fatigue and generalized weakness ENT/Mouth : No Hearing loss, No Ear Pain, No Nasal Congestion, No Sinus Pain, No Hoarseness, No sore throat, No Rhinorrhea, No Swallowing Difficulty Eyes: No Eye Pain, No Swelling, No Redness, No Foreign Body, No Discharge, No Vision Changes Cardiovascular : No Chest Pain, No SOB, No Dyspnea on Exertion, No Orthopnea, No Edema, No Palpitations Respiratory : No Cough, No Sputum, No Wheezing, No Smoke Exposure, No Dyspnea Gastrointestinal : No Nausea, No Vomiting, No Diarrhea, No Constipation, No abdominal Pain, No Hematochezia, No Melena Genitourinary : no irregular bleeding, No Dysuria, No Urinary Frequency, No Hematuria, No Urinary Incontinence, No Urgency, No Flank Pain, No Urinary Flow Changes, No Hesitancy Musculoskeletal : No joint pain, No Myalgias, No Joint Swelling, complaining of right lower back pain Skin : No Skin Lesions, No rash Neuro : No Weakness, No Numbness, No Paresthesias, No Loss of Consciousness, complaining of mild headache, complaining of lightheadedness with standing Psych : No Anxiety/Panic, No Depression, No SI/HI/AH/VH, No Social Issues, Heme/Lymph: No Bruising, No Bleeding,No Lymphadenopathy Endocrine : No Polyuria, No Polydipsia, No Temperature Intolerance [facility] Past Medical History Medical History Arthropathy of facet joint Asthma Bilateral shoulder pain Chronic idiopathic constipation Chronic pain syndrome Degeneration, intervertebral disc, cervical Diabetes mellitus Disc degeneration, lumbar Fibromyalgia LUDY (generalized anxiety disorder) Gastroparesis Goiter Hyperlipidemia LDL goal <70 Hypothyroidism Incontinence Insomnia Left knee pain Lumbar pain Moderately severe recurrent major depression Morbid (severe) obesity due to excess calories Multiple air fluid levels of small intestine determined by X-ray Renal calculi Sleep apnea Small bowel motility disorder Spondylosis of cervical spine at multiple levels without myelopathy Spondylosis of lumbar region without myelopathy or radiculopathy Surgical History Delivery by section History of cholecystectomy History of esophagogastroduodenoscopy (EGD) History of hernia surgery History of hysterectomy History of knee replacement procedure of right knee Hx of colonoscopy Family History Family History Father Past heart attack Anxiety Mother MOF (multiple organ failure) Brother HIV (human immunodeficiency virus infection) Sister Ovarian cancer Lupus Bone cancer Uterine cancer Tumor Daughter Guillain-Bethelridge Sister Lupus History of open heart surgery Family/Other Depression FH: mental illness Maternal Aunt Breast cancer Maternal Aunt Tumor Social History Social History Household Members: None Household Members Other:: Housing: Apartment Are you a primary acute care occupational therapist to a significant other at home: No Do you presently have visiting nurse or other home services: Yes ([employer]) Alcohol intake: never Patient Tobacco Use Status: Never used Tobacco e-Cigarette/Vaping Use: Never Used Second Hand Smoke Exposure: Yes Advance Directives: Yes Advance Directives on File: Yes Advance Directives Date on File: 12/08/21 service: No Current occupational status: unemployed and disabled Cognitive needs: No Hearing needs: No Vision needs: No Physical Exam ED Vital Signs: Vital Signs - 24 hr 04/02/23 19:49 04/02/23 20:23 04/02/23 20:24 Temperature 97 F Pulse Rate 103 H 98 96 Respiratory Rate 18 Blood Pressure 176/88 H 133/76 131/70 Pulse Oximetry 95 Oxygen Delivery Method Room Air 04/02/23 20:26 04/02/23 20:28 Temperature 99.2 F Pulse Rate 111 H 99 Respiratory Rate 17 Blood Pressure 159/91 H 155/78 H Pulse Oximetry 96 Oxygen Delivery Method Room Air BMI result Body Mass Index 38.5 Const Other: Appearance: Alert. Oriented X3. No acute distress. Eyes: Pupils equal, round and reactive to light. ENT: Pharynx normal. Neck: Normal inspection. Neck supple. No lymph nodes noted. No crepitus CVS: Normal heart rate and rhythm. Pulses normal. Normal S1 and S2 Respiratory: No respiratory distress. Breath sounds normal. No Wheezing. No rales Abdomen: Soft and nontender. No rigidity. No distention. Back: Pain to palpation in paraspinal muscles on the right side, no thoracic/lumbar spine tenderness Skin: Skin warm and dry. Normal skin color. Normal skin turgor. Extremities: No lower extremity edema. No Lacerations. No Rash Neuro: Oriented X 3. No motor deficit. No sensory deficit. Moving all extremities. No slurred speech. CN 2 through 12 grossly intact Psych: calm, cooperative, normal affect Course Course Course Narrative: This is an RME: Additional HPI, ROS, PE not included below will be deferred to primary provider. 58-year-old female history of GERD, sleep apnea, diabetes, hypertension presenting to the emergency department for evaluation of nausea, vomiting, weakness, severe lower back pain without red flag symptoms, headache, dizziness the past few days, patient reports global weakness. According to son he has never seen is mother this week. Last known well times a few days ago. No falls or trauma On exam patient dry heaving. Plan labs, urine. Medications Administered Discontinued Medications Generic Name Dose Route Start Last Admin Trade Name Freq PRN Reason Stop Dose Admin Acetaminophen 975 mg 04/02/23 19:50 04/02/23 20:38 Acetaminophen 325 Mg Tablet PO 04/02/23 19:51 975 mg ONCE ONE Administration Sodium Chloride 1,000 mls @ 999 mls/hr 04/02/23 20:00 04/02/23 20:36 Ns IV 04/02/23 21:00 999 mls/hr .Q1H1M RADHA Administration Lidocaine 1 patch 04/02/23 19:50 04/02/23 20:39 Lidocaine 4 % Patch Adh..Patch TRANSDERMA 04/02/23 19:51 1 patch ONCE ONE Administration Protocol Ondansetron HCl 4 mg 04/02/23 19:52 04/02/23 20:37 Ondansetron Hcl 4 Mg/2 Ml Vial IVPUSH 04/02/23 19:53 4 mg ONCE ONE Administration Medical Decision Making Medical Decision Making [facility] Narrative: -who reviewed patient's labs. Patient has an elevated white blood cell count, however it is chronic for the patient. Patient's chemistry is unremarkable, LFTs within normal limits -I reviewed patient's urinalysis. Patient has trace leukocyte esterase in white blood cell counts in the urine. This may be a UTI. However, reviewing yoel mace's microbiology reports, patient has grown mixed bacterial felix characteristic of urogenital contamination. Patient denies UTI symptoms -troponin, EKG and orthostatic vitals pending -troponin is negative -interpretation of EKG: Normal sinus rhythm, heart rate 82, no ST segment depression or elevation, nonspecific T-wave inversion in lead 3, QTC 486 -orthostatic vitals negative -patient complaining of pain with certain movements, this is likely musculoskeletal pain. Patient was given 1 dose of Toradol, lidocaine patch, Zofran, Tylenol -patient ready for discharge Differential Diagnosis Differential Diagnoses: The differential diagnosis associated with the presentation includes (UTI, musculoskeletal pain, pyelonephritis) Lab Data MDM Lab Attestation statement: I reviewed the patient's lab results. 04/02/23 20:14 04/02/23 20:14 Labs: Lab Results 04/02/23 04/02/23 04/02/23 Range/Units 20:14 20:14 20:14 WBC 15.7 H (4.8-10.8) X10*3/uL RBC 5.67 H (4.20-5.50) X10*6/uL Hgb 12.5 (12.0-16.0) g/dl Hct 41.7 (37.0-47.0) % MCV 73.5 L (80.0-98.0) fL MCH 22.0 L (27.0-33.0) pg MCHC 30.0 L (31.0-35.0) g/dl RDW 17.7 H (11.0-16.0) % Plt Count 331 D (160-400) X10*3/uL MPV 10.9 (9.4-12.3) fL Immature Gran % (Auto) 0.6 H (0.0-0.4) % Neut % (Auto) 78.8 H (45-73) % Lymph % (Auto) 13.8 L (20-40) % Coke % (Auto) 4.2 (2-11) % Eos % (Auto) 2.3 (0-4) % Baso % (Auto) 0.3 (0-2) % Lymph # (Auto) 2.2 (1.2-4.9) X10*3/uL Coke # (Auto) 0.7 (0.1-1.2) X10*3/uL Eos # (Auto) 0.4 (0.0-0.4) X10*3/uL Baso # (Auto) 0.1 (0.0-0.2) X10*3/uL Abs Immat Gran (auto) 0.09 H (0.00-0.03) X10*3/uL Absolute Neuts (auto) 12.3 H (2.0-8.3) x10*3/uL Absolute Nucleated RBC 0.000 (0.0-0.012) X10*3/uL Nucleated RBC % (auto) 0.0 (0.0-0.2) /100WBC Sodium 142 (135-145) mmol/L Potassium 4.3 (3.3-5.1) mmol/L Chloride 109 H (96-108) mmol/L Carbon Dioxide 24 (22-29) mmol/L Anion Gap 13 (12-20) BUN 13 (9-16) mg/dL Creatinine 0.67 (0.5-1.4) mg/dL Estim Creat Clear Calc 119.3 Estimated GFR > 60 Random Glucose 122 H (60-115) mg/dL Calcium 10.0 D (8.4-10.2) mg/dL Magnesium 1.9 (1.6-2.6) mg/dL Total Bilirubin 0.5 (0.0-1.0) mg/dL AST 14 (5-31) U/L ALT 16 (0-31) U/L Alkaline Phosphatase 111 (39-117) U/L Troponin I High Sens (<3.5-17.0) ng/L Total Protein 8.0 (6.5-8.0) g/dL Albumin 3.9 (3.5-5.0) g/dL Lipase 32 (8-78) U/L Urine Color Urine Appearance Urine pH (5.0-9.0) Ur Specific [place] (1.005-1.025) Urine Protein (Neg-Trace) mg/dL Urine Glucose (UA) (Negative) mg/dL Urine Ketones (Negative) mg/dL Urine Blood (Negative) Urine Nitrite (Negative) Ur Leukocyte Esterase (Negative) Urine RBC (0-2) /HPF Urine WBC (0-5) /HPF Ur Squamous Epith Cells (0-2) /HPF Urine Bacteria (None Seen) Hyaline Casts (0-2) /LPF B-Hydroxybutyrate 0.11 (0.02-0.27) mmol/L 04/02/23 04/02/23 Range/Units 20:14 23:47 WBC (4.8-10.8) X10*3/uL RBC (4.20-5.50) X10*6/uL Hgb (12.0-16.0) g/dl Hct (37.0-47.0) % MCV (80.0-98.0) fL MCH (27.0-33.0) pg MCHC (31.0-35.0) g/dl RDW (11.0-16.0) % Plt Count (160-400) X10*3/uL MPV (9.4-12.3) fL Immature Gran % (Auto) (0.0-0.4) % Neut % (Auto) (45-73) % Lymph % (Auto) (20-40) % Coke % (Auto) (2-11) % Eos % (Auto) (0-4) % Baso % (Auto) (0-2) % Lymph # (Auto) (1.2-4.9) X10*3/uL Coke # (Auto) (0.1-1.2) X10*3/uL Eos # (Auto) (0.0-0.4) X10*3/uL Baso # (Auto) (0.0-0.2) X10*3/uL Abs Immat Gran (auto) (0.00-0.03) X10*3/uL Absolute Neuts (auto) (2.0-8.3) x10*3/uL Absolute Nucleated RBC (0.0-0.012) X10*3/uL Nucleated RBC % (auto) (0.0-0.2) /100WBC Sodium (135-145) mmol/L Potassium (3.3-5.1) mmol/L Chloride (96-108) mmol/L Carbon Dioxide (22-29) mmol/L Anion Gap (12-20) BUN (9-16) mg/dL Creatinine (0.5-1.4) mg/dL Estim Creat Clear Calc Estimated GFR Random Glucose (60-115) mg/dL Calcium (8.4-10.2) mg/dL Magnesium (1.6-2.6) mg/dL Total Bilirubin (0.0-1.0) mg/dL AST (5-31) U/L ALT (0-31) U/L Alkaline Phosphatase (39-117) U/L Troponin I High Sens < 2.7 (<3.5-17.0) ng/L Total Protein (6.5-8.0) g/dL Albumin (3.5-5.0) g/dL Lipase (8-78) U/L Urine Color Yellow Urine Appearance Clear Urine pH 7.5 (5.0-9.0) Ur Specific [place] 1.020 (1.005-1.025) Urine Protein 30 (1+) H (Neg-Trace) mg/dL Urine Glucose (UA) Negative (Negative) mg/dL Urine Ketones Trace (Negative) mg/dL Urine Blood Negative (Negative) Urine Nitrite Negative (Negative) Ur Leukocyte Esterase Trace H (Negative) Urine RBC 0-2 (0-2) /HPF Urine WBC 6-10 H (0-5) /HPF Ur Squamous Epith Cells 6-10 (0-2) /HPF Urine Bacteria 1+ (None Seen) Hyaline Casts 0-2 (0-2) /LPF B-Hydroxybutyrate (0.02-0.27) mmol/L Discharge Plan Discharge Clinical Impression: Dizziness Patient Disposition: Home, Self-Care Instructions: Dizziness (ED) Additional Instructions: Please follow-up with your primary care physician tomorrow. If you have any worsening or new symptoms, please return to the emergency room or call 911 Prescriptions: No Action (DME) lancets [FreeStyle Lancets] 28 gauge misc See Rx Instructions .Route Qty: 100 6RF Rx Instructions: BID (DME) FreeStyle Julianne 2 Sensor Kit See Rx Instructions .Route Qty: 1 2RF Rx Instructions: As directed (DME) diabetic supplies, miscellan. Misc See Rx Instructions .Route Qty: 1 0RF Rx Instructions: As directed (DME) heating pads Pad See Rx Instructions .Route Qty: 1 0RF Rx Instructions: As directed (DME) Gel mattress overlay [facility] See Rx Instructions .Route Qty: 1 0RF Rx Instructions: As directed (DME) Toilet seat riser See Rx Instructions .Route .MEDSUPPLY Qty: 1 0RF Rx Instructions: As directed (DME) miscellaneous medical supply [facility] See Rx Instructions .ROUTE .MEDSUPPLY Qty: 1 0RF Rx Instructions: toilet seat elevator (DME) pen needle, diabetic [BD Ultra-Fine Mini Pen Needle] 31 gauge x 3/16 needle See Rx Instructions .Route Qty: 100 0RF Rx Instructions: As directed (DME) BD Insulin Syringe (half unit) 0.3 mL 31 gauge x 5/16 syringe See Rx Instructions .Route Qty: 100 3RF Rx Instructions: Use 1 needle once a day hydrocortisone [Anti-Itch (HC)] 1 % cream 1 appl topical TID PRN (Reason: skin irritation) 30 Days Qty: 28.4 0RF duloxetine 60 mg capsule,delayed release(DR/EC) 90 mg PO DAILY 90 Days Qty: 135 1RF (DME) blood-glucose meter [FreeStyle Lite Meter] Kit See Rx Instructions .Route Qty: 1 0RF Rx Instructions: As directed (DME) FreeStyle Lite Strips Strip See Rx Instructions .Route Qty: 100 3RF Rx Instructions: use 1 test strip once a day (DME) walker [facility] See Rx Instructions .Route Qty: 1 0RF Rx Instructions: walker with seat and wheels metformin 500 mg tablet 500 mg PO BID Qty: 180 2RF (DME) insulin syringe-needle U-100 [BD Insulin Syringe Ultra-Fine] 0.5 mL 31 gauge x 5/16 syringe See Rx Instructions .Route Qty: 100 3RF Rx Instructions: Use 1 three times a day Advair HFA 230-21 mcg/actuation HFA aerosol inhaler 2 puff PO Q12H Qty: 12 6RF OsmoPrep 1.5 gram tablet 4 tab PO Q15M Qty: 32 0RF Rx Instructions: administer with 240 mL of clear fluid peg-electrolyte soln 420 gram recon soln 240 ml PO Q10M Qty: 4000 0RF Rx Instructions: until fecal effluent is clear water for irrigation, sterile Solution 1 irrig irrigation DAILY 30 Days Qty: 500 6RF insulin lispro 100 unit/mL solution 5 unit subcut TID 90 Days Qty: 13.5 2RF sumatriptan succinate 25 mg tablet 25 mg PO ONCE PRN (Reason: migraine headache) Qty: 12 1RF hydroxyzine HCl 50 mg tablet 50 mg PO BEDTIME Qty: 30 3RF senna 8.6 mg capsule 17.2 mg PO BEDTIME 90 Days Qty: 180 3RF alcohol swabs [Alcohol Prep Pads] Pads, Medicated 1 pad topical .once a day 90 Days Qty: 100 0RF metoprolol tartrate 50 mg tablet 50 mg PO BID 90 Days Qty: 180 1RF amlodipine 10 mg tablet 10 mg PO DAILY Qty: 90 1RF levothyroxine 112 mcg tablet 112 mcg PO DAILY 90 Days Qty: 90 1RF atorvastatin 10 mg tablet 10 mg PO BEDTIME 90 Days Qty: 90 1RF acetaminophen [Tylenol Arthritis Pain] 650 mg tablet extended release 650 mg PO Q8H PRN (Reason: arthritis pain) Qty: 90 3RF gabapentin 800 mg tablet 800 mg PO TID 30 Days Qty: 90 0RF metolazone 2.5 mg tablet 2.5 mg PO 3XW Qty: 39 1RF albuterol sulfate [Ventolin HFA] 90 mcg/actuation HFA aerosol inhaler 2 puff PO Q6H PRN (Reason: for wheezing) Qty: 18 1RF (DME) diabetic shoes and inserts See Rx Instructions .Route .MEDSUPPLY Qty: 1 1RF Rx Instructions: As directed methocarbamol 750 mg tablet 750 mg PO QID Qty: 20 0RF insulin glargine [Lantus U-100 Insulin] 100 unit/mL solution 15 unit subcut QPM 90 Days Qty: 13.5 1RF dicyclomine 10 mg capsule 10 mg PO BID PRN (Reason: for cramps) Qty: 180 1RF lorazepam [Ativan] 1 mg tablet 1 mg PO BID PRN (Reason: anxiety) Qty: 14 0RF ondansetron 4 mg tablet,disintegrating 4 mg PO Q8H PRN (Reason: nausea and vomiting) Qty: 30 0RF (DME) Shower Chair Misc See Rx Instructions .Route Qty: 1 0RF Rx Instructions: As directed sumatriptan succinate [Imitrex] 50 mg tablet 50 mg PO Q2-4H PRN (Reason: migraine headache) Qty: 10 0RF Rx Instructions: do not exceed 4 doses per 24 hrs metoclopramide HCl [Reglan] 5 mg tablet 5 mg PO BID PRN (Reason: nausea and vomiting) Qty: 14 0RF (DME) vaporizers Misc See Rx Instructions .ROUTE .MEDSUPPLY Qty: 1 Rx Instructions: As directed meclizine 25 mg tablet 25 mg PO TID PRN (Reason: dizziness) 90 Days Qty: 270 0RF (DME) cane Device See Rx Instructions .Route Qty: 1 0RF Rx Instructions: As directed clonidine HCl 0.1 mg tablet 0.1 mg PO TID PRN (Reason: Agitation or Anxiety) mirtazapine 30 mg tablet 30 mg PO BEDTIME albuterol sulfate 2.5 mg /3 mL (0.083 %) solution for nebulization 2.5 mg inhalation QID PRN (Reason: shortness of breath or wheezing) Qty: 75 0RF (DME) insulin syringe-needle U-100 [BD Insulin Syringe Ultra-Fine] 0.3 mL 31 gauge x 5/16 syringe See Rx Instructions .ROUTE .MEDSUPPLY Qty: 10 Rx Instructions: As directed Trulicity 0.75 mg/0.5 mL pen injector 0.75 mg subcut QWEEK Qty: 2 5RF hydrocortisone [Proctosol HC] 2.5 % cream with perineal applicator 1 appl ME BID PRN (Reason: hemorrhoids) Qty: 30 3RF (DME) blood pressure test kit-wrist Kit See Rx Instructions .ROUTE .MEDSUPPLY Qty: 1 0RF Rx Instructions: to check blood pressure cyclobenzaprine 10 mg tablet 10 mg PO TID Qty: 90 0RF metoclopramide HCl [Reglan] 10 mg tablet 10 mg PO QIDACHS Qty: 120 6RF Rx Instructions: Provider aware possible interactions and is monitoring patient torsemide 20 mg tablet 40 mg PO BID 30 Days Qty: 120 6RF
--- NOTE | 2023-04-02 20:09 | MHC.EDTECH ---
This tech obtained labs,and a UA in triage area, Unable to get Ortho's due to area. 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
[2023-04-02 20:23] VITALS: BP 133/76; PULSE 98
[2023-04-02 20:24] VITALS: BP 131/70; PULSE 96
[2023-04-02 20:25] LABS: MANUAL DIFF FLAG NO
[2023-04-02 20:26] VITALS: BP 159/91; PULSE 111
[2023-04-02 20:26] LABS: Appearance Urine Clear; Basophils Absolute Auto 0.1 X10*3/uL (0.0-0.2); Basophils Percent Auto 0.3 % (0-2); Color Urine Yellow; Eosinophils Absolute Auto 0.4 X10*3/uL (0.0-0.4); Eosinophils Percent Auto 2.3 % (0-4); Glucose Urine UA Negative (Negative); Hematocrit 41.7 % (37.0-47.0); Hemoglobin 12.5 g/dl (12.0-16.0); Imm Gran Abs Auto 0.09 X10*3/uL (0.00-0.03); Imm Gran Pct Auto 0.6 % (0.0-0.4); Leukocyte Esterase Urine Trace (Negative); Lymphocytes Absolute Auto 2.2 X10*3/uL (1.2-4.9); Lymphocytes Percent Auto 13.8 % (20-40); Mean Corpuscular Volume 73.5 fL (80.0-98.0); Mean Platelet Volume 10.9 fL (9.4-12.3); Monocytes Absolute Auto 0.7 X10*3/uL (0.1-1.2); Monocytes Percent Auto 4.2 % (2-11); Neutrophils Absolute Auto 12.3 x10*3/uL (2.0-8.3); Neutrophils Percent Auto 78.8 % (45-73); Nitrite Urine Negative (Negative); PH 7.5 (5.0-9.0); Platelet Count 331 X10*3/uL (160-400); Red Blood Count 5.67 X10*6/uL (4.20-5.50); Red Cell Distribution Width 17.7 % (11.0-16.0); UMIC TRIGGER UACC YES; Urine Blood Negative (Negative); Urine Ketones Trace mg/dL (Negative); Urine Protein 30 (1+) mg/dL (Neg-Trace); White Blood Count 15.7 X10*3/uL (4.8-10.8)
[2023-04-02 20:28] VITALS: BP 155/78; PULSE 99; RESP 17; TEMP 37.3; O2SAT 96
[2023-04-02 20:28] LABS: Bacteria Urine 1+ (None Seen); Hyaline Casts Urine 0-2 /LPF (0-2); RBC Urine 0-2 /HPF (0-2); UACC Culture Trigger YES
[2023-04-02] MEDS: 0.9 % Sodium Chloride 1,000 ML 999 ML IV (20:36)
[2023-04-02] MEDS: ondansetron HCL 4 MG/2 ML VIAL IVPUSH (20:37)
[2023-04-02] MEDS: Acetaminophen 325 MG TABLET 975 MG PO (20:38)
[2023-04-02 20:39] LABS: Beta-Hydroxybutyrate 0.11 mmol/L (0.02-0.27)
[2023-04-02] MEDS: Lidocaine 4 % Patch ADH..PATCH 1 PATCH TRANSDERMA (20:39)
[2023-04-02 20:40] LABS: Alanine Aminotransferase 16 U/L (0-31); Albumin Level 3.9 g/dL (3.5-5.0); Alkaline Phosphatase 111 U/L (39-117); Anion Gap 13 (12-20); Aspartate Amino Transferase 14 U/L (5-31); Bilirubin Total 0.5 mg/dL (0.0-1.0); Blood Urea Nitrogen 13 mg/dL (9-16); Carbon Dioxide 24 mmol/L (22-29); Chloride 109 mmol/L (96-108); Creatinine Clr Calc Pharmacy 119.3; Estimated Glomerular Filt Rate > 60; Glucose Random 122 mg/dL (60-115); Lipase 32 U/L (8-78); Magnesium 1.9 mg/dL (1.6-2.6); Potassium 4.3 mmol/L (3.3-5.1); Sodium 142 mmol/L (135-145)
[2023-04-03 00:23] LABS: Troponin-I High Sensitivity < 2.7 ng/L (<3.5-17.0)
[2023-04-03] MEDS: Ketorolac Tromethamine 15 MG/ML VIAL IVPUSH (00:58)
== END 2023-04-03 01:09 | disposition home or self-care (01) ==
PROVIDERS: Physician Assistant; Emergency Provider Emergency Medicine; PCP Internal Medicine
DX: R42 Dizziness and giddiness (principal); R51.9 Headache, unspecified; E11.9 Type 2 diabetes mellitus without complications; I10 Essential (primary) hypertension; E78.5 Hyperlipidemia, unspecified; E66.9 Obesity, unspecified; Z68.38 Body mass index [BMI] 38.0-38.9, adult; Z79.4 Long term (current) use of insulin; Z79.899 Other long term (current) drug therapy
CPT/HCPCS: 36415; 80053; 81001; 82010; 83690; 83735; 84484; 85025; 87086; 93005; 96361; 96374; 96375; 99284; J1885; J2405

== ENCOUNTER 2023-04-28 20:44 | Emergency (ER) | payer OTHER, SELFPAY ==
--- NOTE | ~2023-04-28 | US_ITS ---
EXAMINATION: US ABDOMEN LIMITED CLINICAL INFORMATION: Right upper quadrant pain. COMPARISON: 01/06/2023 TECHNIQUE: Real-time imaging of the right upper quadrant abdominal viscera. FINDINGS: PANCREAS: Normal. LIVER: The liver is normal in size. The liver contour is normal. There is diffuse increased liver parenchymal echogenicity, consistent with hepatic steatosis. No focal hepatic lesion. There is no intrahepatic biliary duct dilatation seen. GALLBLADDER: Surgically absent. COMMON BILE DUCT: Normal in caliber measuring 0.5 cm in diameter. RIGHT KIDNEY: Normal. No hydronephrosis. No renal calculi or focal parenchymal lesions. The kidney measures 10.7 cm in maximum dimension. FREE FLUID: None. US/US abdomen limited IMPRESSION: Hepatic steatosis. Otherwise unremarkable right upper quadrant ultrasound.
--- NOTE | ~2023-04-28 | XR_ITS ---
EXAMINATION: XR CHEST CLINICAL INFORMATION: Chest pain. COMPARISON: 01/06/2023 chest radiographs. TECHNIQUE: Frontal view of the chest was obtained. FINDINGS: Mild elevation of the right hemidiaphragm. The lungs are clear. The heart and mediastinal structures are unremarkable. XR/XR chest 1V IMPRESSION: No acute cardiopulmonary process.
--- NOTE | 2023-04-28 20:46 | ED_ITS ---
HPI - Chest Pain General Chief Complaint: Chest Pain Stated Complaint: Chest pain/right rib pain/severe headache Time Seen by Provider: 04/28/23 21:40 Source: patient Mode of arrival: ambulatory History of Present Illness HPI narrative: 58-year-old female who has complaints of right rib pain as well as back and right-sided chest pain associated with shortness of breath without subjective fevers but reports chills and nausea and worsening pain on deep inspiration for 2 days. She otherwise denies any diarrhea and states she has had urinary frequency. Related Data Home Medications Medication Instructions Recorded Confirmed vaporizers #1 ea 10/10/20 01/07/23 clonidine HCl 0.1 mg tablet 0.1 mg PO TID PRN Agitation or 09/19/21 01/07/23 Anxiety mirtazapine 30 mg tablet 30 mg PO BEDTIME 06/23/22 01/07/23 insulin syringe-needle U-100 0.3 #10 ea 10/20/22 01/07/23 mL 31 gauge x 5/16 (BD Insulin Syringe Ultra-Fine) Previous Rx's Medication Instructions Recorded lancets 28 gauge (FreeStyle #100 ea 05/23/21 Lancets) diabetic supplies, miscellan. #1 ea 12/03/21 flash glucose sensor (FreeStyle #1 ea 12/03/21 Julianne 2 Sensor kit) heating pads #1 ea 01/21/22 Gel mattress overlay #1 ea 01/28/22 Toilet seat riser #1 ea 03/05/22 miscellaneous medical supply #1 ea 03/10/22 pen needle, diabetic 31 gauge x #100 ea 04/10/22 3/16 (BD Ultra-Fine Mini Pen Needle) Shower Chair #1 ea 05/11/22 insulin syr/ndl U100 half desean 0.3 #100 ea 07/16/22 mL 31 gauge x 5/16 (BD Insulin Syringe Ultra-Fine (half unit)) hydrocortisone 1 % topical cream 1 appl topical TID PRN skin 07/22/22 (Anti-Itch (hydrocortisone)) irritation 30 days #28.4 grams lorazepam 1 mg tablet (Ativan) 1 mg PO BID PRN anxiety #14 tabs 08/03/22 ondansetron 4 mg disintegrating 4 mg PO Q8H PRN nausea and 08/07/22 tablet vomiting #30 tabs blood pressure test kit-wrist #1 ea 08/13/22 hydrocortisone 2.5 % topical cream 1 appl [place] BID PRN hemorrhoids #30 08/13/22 with perineal applicator grams (Proctosol HC) cyclobenzaprine 10 mg tablet 10 mg PO TID #90 tabs 08/20/22 duloxetine 60 mg capsule,delayed 90 mg PO DAILY 90 days #135 caps 08/24/22 release blood sugar diagnostic (FreeStyle #100 ea 09/01/22 Lite Strips) blood-glucose meter (FreeStyle #1 ea 09/01/22 Lite Meter kit) walker #1 ea 09/01/22 metformin 500 mg tablet 500 mg PO BID #180 tabs 09/04/22 albuterol sulfate 2.5 mg/3 mL 2.5 mg (3 mL) inhalation QID PRN 10/01/22 (0.083 %) solution for nebulization shortness of breath or wheezing #75 mL insulin syringe-needle U-100 0.5 #100 ea 10/17/22 mL 31 gauge x 5/16 (BD Insulin Syringe Ultra-Fine) dulaglutide 0.75 mg/0.5 mL 0.75 mg (0.5 mL) subcut QWEEK #2 mL 10/20/22 subcutaneous pen injector ([facility]) torsemide 20 mg tablet 40 mg PO BID 30 days #120 tabs 10/21/22 metoclopramide HCl 10 mg tablet 10 mg PO QIDACHS #120 tabs 11/10/22 (Reglan) fluticasone propionate 230 2 puff PO Q12H #12 grams 12/16/22 mcg-salmeterol 21 mcg/actuation HFA inhaler (Advair HFA) sod phos mono-sod phos dibasic 1.5 4 tab PO Q15M 5 doses #32 tabs 12/28/22 gram (1.102-0.398) tablet (OsmoPrep) peg-electrolyte solution 420 gram 240 ml PO Q10M #4,000 mL 12/31/22 oral solution water for irrigation, sterile 1 irrig irrigation DAILY 30 days 01/04/23 #500 mL cane #1 ea 01/07/23 meclizine 25 mg tablet 25 mg PO TID PRN dizziness 90 days 01/07/23 #270 tabs insulin lispro 100 unit/mL 5 unit (0.05 mL) subcut TID 90 01/08/23 subcutaneous solution days #13.5 mL metoclopramide HCl 5 mg tablet 5 mg PO BID PRN nausea and 01/12/23 (Reglan) vomiting #14 tabs sumatriptan succinate 50 mg tablet 50 mg PO Q2-4H PRN migraine 01/12/23 (Imitrex) headache #10 tabs hydroxyzine HCl 50 mg tablet 50 mg PO BEDTIME #30 tabs 01/25/23 alcohol swabs (Alcohol Prep Pads) 1 pad topical .once a day 90 days 02/18/23 #100 ea sennosides 8.6 mg capsule (senna) 17.2 mg PO BEDTIME constipation 90 02/18/23 days #180 tabs amlodipine 10 mg tablet 10 mg PO DAILY #90 tabs 02/22/23 metoprolol tartrate 50 mg tablet 50 mg PO BID 90 days #180 tabs 02/22/23 acetaminophen 650 mg 650 mg PO Q8H PRN arthritis pain 02/23/23 tablet,extended release (Tylenol #90 tabs Arthritis Pain) atorvastatin 10 mg tablet 10 mg PO BEDTIME 90 days #90 tabs 02/23/23 levothyroxine 112 mcg tablet 112 mcg PO DAILY 90 days #90 tabs 02/23/23 metolazone 2.5 mg tablet 2.5 mg PO 3XW #39 tabs 02/23/23 albuterol sulfate 90 mcg/actuation 2 puff PO Q6H PRN for wheezing #18 02/28/23 aerosol inhaler (Ventolin HFA) ea diabetic shoes and inserts #1 ea 03/04/23 methocarbamol 750 mg tablet 750 mg PO QID muscle spasm #20 tabs 03/09/23 insulin glargine 100 unit/mL 15 unit (0.15 mL) subcut QPM 90 03/16/23 subcutaneous solution (Lantus days #13.5 mL U-100 Insulin) dicyclomine 10 mg capsule 10 mg PO BID PRN for cramps #180 03/25/23 caps sumatriptan succinate 25 mg tablet 25 mg PO ONCE PRN migraine 04/07/23 headache #12 tabs gabapentin 800 mg tablet 800 mg PO TID 30 days #90 tabs 04/19/23 lidocaine 5 % topical patch 1 patch topical DAILY PRN pain 30 04/28/23 days #30 ea Allergies Allergy/AdvReac Type Severity Reaction Status Date / Time Penicillins Allergy Severe swelling Verified 02/17/23 06:54 adhesive tape [ADHESIVE TAPE] Allergy Intermediate RASH Verified 02/17/23 06:54 amoxicillin [AMOXICILLIN] Allergy Intermediate RASH,SWELLI Verified 02/17/23 06:54 NG ibuprofen [From Motrin] Allergy Intermediate Hypertensio Verified 02/17/23 06:54 n latex Allergy Intermediate Rash Verified 02/17/23 06:54 Review of Systems Review of Systems: Pertinent positives and negatives as stated in HPI [facility] [place] Past Medical History Source: nursing notes reviewed Medical History Arthropathy of facet joint Asthma Bilateral shoulder pain Chronic idiopathic constipation Chronic pain syndrome Degeneration, intervertebral disc, cervical Diabetes mellitus Disc degeneration, lumbar Fibromyalgia LUDY (generalized anxiety disorder) Gastroparesis Goiter Hyperlipidemia LDL goal <70 Hypothyroidism Incontinence Insomnia Left knee pain Lumbar pain Moderately severe recurrent major depression Morbid (severe) obesity due to excess calories Multiple air fluid levels of small intestine determined by X-ray Renal calculi Sleep apnea Small bowel motility disorder Spondylosis of cervical spine at multiple levels without myelopathy Spondylosis of lumbar region without myelopathy or radiculopathy Surgical History Delivery by section History of cholecystectomy History of esophagogastroduodenoscopy (EGD) History of hernia surgery History of hysterectomy History of knee replacement procedure of right knee Hx of colonoscopy Family History Family History Father Past heart attack Anxiety Mother MOF (multiple organ failure) Brother HIV (human immunodeficiency virus infection) Sister Ovarian cancer Lupus Bone cancer Uterine cancer Tumor Daughter Guillain-Interior Sister Lupus History of open heart surgery Family/Other Depression FH: mental illness Maternal Aunt Breast cancer Maternal Aunt Tumor Social History Social History Household Members: None Household Members Other:: Housing: Apartment Are you a primary managed care director to a significant other at home: No Do you presently have visiting nurse or other home services: Yes ([employer]) Alcohol intake: never Patient Tobacco Use Status: Never used Tobacco e-Cigarette/Vaping Use: Never Used Second Hand Smoke Exposure: Yes Advance Directives: Yes Advance Directives on File: Yes Advance Directives Date on File: 12/08/21 Patient : No service: No Current occupational status: unemployed and disabled Cognitive needs: No Hearing needs: No Vision needs: No Physical Exam Vital Signs: Vital Signs: Last Vital Signs Temp 98.6 F 04/29/23 00:00 Pulse 74 04/29/23 00:00 Resp 14 04/29/23 00:00 BP 109/63 04/29/23 00:00 Pulse Ox 96 04/29/23 00:00 O2 Del Method Room Air 04/29/23 00:00 BMI result Body Mass Index 38.3 VITAL SIGNS: Reviewed. GENERAL: Well developed, well nourished, in no acute distress. HEAD: Normocephalic/atraumatic EYES: PERRLA, EOMI OROPHARYNX: no oral lesions noted, posterior pharynx clear LUNGS: Normal breath sounds. No adventitious sounds or accessory muscle use. SpO2<98> CARDIOVASCULAR: Regular rate and rhythm without noted murmurs, no JVD or lower extremity edema. ABDOMEN: Soft, right upper quadrant tenderness to palpation, non-distended with bowel sounds. MUSCULOSKELETAL: No tenderness, deformities, or effusions noted on gross inspection. EXTREMITIES: No cyanosis, clubbing or edema. SKIN: Inspection of the skin reveals no rashes NEUROLOGIC: Alert and oriented x 4. Strength and sensation to light touch were grossly intact x 4. Course Course Course Narrative: RME - 58 yo female with history of MARY, migraines, HTN, anxiety/depression, DM, asthma, fibromyalgia who presents to the ER for evaluation of right lower chest pain/rib pain and worsening SOB for the last 2-3 days. +nausea, dizzy. no sick contacts. VSS in triage. Plan: CXR, EKG, labs, viral swabs Medications Administered Discontinued Medications Generic Name Dose Route Start Last Admin Trade Name Presley PRN Reason Stop Dose Admin Acetaminophen 975 mg 04/29/23 01:29 04/29/23 01:34 Acetaminophen 325 Mg Tablet PO 04/29/23 01:30 975 mg ONCE ONE Administration Albuterol Sulfate 2 puff 04/29/23 01:40 04/29/23 01:44 Albuterol Sulfate 90 Mcg 8 Gm Inhaler INHALE 04/29/23 01:41 2 puff ONCE ONE Administration Lidocaine/Diphenhydr/Alum/Mg/Simeth 10 ml 04/29/23 01:28 04/29/23 01:35 Mag&Al/Sim/Diphenhyd/Lidocaine 10 Ml Oral.Susp PO 04/29/23 01:29 10 ml ONCE ONE Administration Protocol Medical Decision Making Medical Decision Making [facility] Narrative: 58-year-old female with history and clinical presentation, DDX: Musculoskeletal, cholecystitis, gastritis, less likely felt to be pneumonia, ACS, or pancreatitis. I reviewed all investigations and my interpretation is this patient has acid reflux as hematologic indices demonstrate a chronic leukocytosis without thrombocytopenia and a chronic left shift. Chemistry indices do not demonstrate any electrolyte derangements, no RE, liver enzymes are grossly within normal limits, troponin is undetectable in conjunction with an EKG that does not demonstrate any acute changes. I have no clinical suspicion for PE and although patient informed me that she still had her gallbladder the upper abdominal ultrasound seems to indicate that it has been surgically removed ruling out the possibility of cholecystitis, CBD appears to be within normal limits and no roselia dence to suggest choledocholithiasis. Urinalysis negative for evidence of UTI or hematuria and chest x-ray negative for pneumonia and otherwise my interpretation is in agreement with radiology's impression. Patient was provided with Tylenol, Magic mouthwash (GI cocktail), as well as 2 puffs on a ventolin inhaler. Patient is otherwise discharged home and my interpretation is that she has a combination of musculoskeletal pain likely secondary to underlying fibromyalgia diagnosis and possible in activity as well as a component of acid reflux. Differential Diagnosis Differential Diagnoses: The differential diagnosis associated with the presentation includes Please see the discussion above Admission/Observation Consideration of admission/observation: Escalation of care including admission/observation considered Please see the discussion above Lab Data [facility] Lab Attestation statement: I reviewed the patient's lab results. Please see the discussion above 04/28/23 21:36 04/28/23 21:36 Labs: Lab Results 04/28/23 04/28/23 04/28/23 Range/Units 21:05 21:36 21:36 WBC 15.9 H (4.8-10.8) X10*3/uL RBC 5.62 H (4.20-5.50) X10*6/uL Hgb 12.5 (12.0-16.0) g/dl Hct 41.3 (37.0-47.0) % MCV 73.5 L (80.0-98.0) fL MCH 22.2 L (27.0-33.0) pg MCHC 30.3 L (31.0-35.0) g/dl RDW 18.2 H (11.0-16.0) % Plt Count 319 (160-400) X10*3/uL MPV 11.1 (9.4-12.3) fL Immature Gran % (Auto) 0.5 H (0.0-0.4) % Neut % (Auto) 79.7 H (45-73) % Lymph % (Auto) 12.7 L (20-40) % [place] % (Auto) 3.6 (2-11) % Eos % (Auto) 3.1 (0-4) % Baso % (Auto) 0.4 (0-2) % Lymph # (Auto) 2.0 (1.2-4.9) X10*3/uL [place] # (Auto) 0.6 (0.1-1.2) X10*3/uL Eos # (Auto) 0.5 H (0.0-0.4) X10*3/uL Baso # (Auto) 0.1 (0.0-0.2) X10*3/uL Abs Immat Gran (auto) 0.08 H (0.00-0.03) X10*3/uL Absolute Neuts (auto) 12.7 H (2.0-8.3) x10*3/uL Absolute Nucleated RBC 0.000 (0.0-0.012) X10*3/uL Nucleated RBC % (auto) 0.0 (0.0-0.2) /100WBC Sodium 140 (135-145) mmol/L Potassium 3.9 (3.3-5.1) mmol/L Chloride 98 (96-108) mmol/L Carbon Dioxide 25 (22-29) mmol/L Anion Gap 21 H (12-20) BUN 13 (9-16) mg/dL Creatinine 0.81 (0.5-1.4) mg/dL Estim Creat Clear Calc 98.3 Estimated GFR > 60 POC Glucose 153 H (60-115) mg/dL Random Glucose 162 H (60-115) mg/dL Calcium 10.3 H (8.4-10.2) mg/dL Magnesium 1.7 (1.6-2.6) mg/dL Total Bilirubin 0.6 (0.0-1.0) mg/dL Direct Bilirubin 0.2 (0.0-0.5) mg/dL AST 15 (5-31) U/L ALT 21 (0-31) U/L Alkaline Phosphatase 113 (39-117) U/L Troponin I High Sens (<3.5-17.0) ng/L Total Protein 8.4 H (6.5-8.0) g/dL Albumin 4.1 (3.5-5.0) g/dL Urine Color Urine Appearance Urine pH (5.0-9.0) Ur Specific [place] (1.005-1.025) Urine Protein (Neg-Trace) mg/dL Urine Glucose (UA) (Negative) mg/dL Urine Ketones (Negative) mg/dL Urine Blood (Negative) Urine Nitrite (Negative) Ur Leukocyte Esterase (Negative) Urine RBC (0-2) /HPF Urine WBC (0-5) /HPF Ur Squamous Epith Cells (0-2) /HPF Urine Bacteria (None Seen) Hyaline Casts (0-2) /LPF COVID-19 ([facility]) (Negative) COVID-19 Clin Com Influenza Type A (TAL) (Negative) Influenza Type B (TAL) (Negative) Influenza A & B Note 04/28/23 04/28/23 04/28/23 Range/Units 21:36 22:03 22:03 WBC (4.8-10.8) X10*3/uL RBC (4.20-5.50) X10*6/uL Hgb (12.0-16.0) g/dl Hct (37.0-47.0) % MCV (80.0-98.0) fL MCH (27.0-33.0) pg MCHC (31.0-35.0) g/dl RDW (11.0-16.0) % Plt Count (160-400) X10*3/uL MPV (9.4-12.3) fL Immature Gran % (Auto) (0.0-0.4) % Neut % (Auto) (45-73) % Lymph % (Auto) (20-40) % [place] % (Auto) (2-11) % Eos % (Auto) (0-4) % Baso % (Auto) (0-2) % Lymph # (Auto) (1.2-4.9) X10*3/uL [place] # (Auto) (0.1-1.2) X10*3/uL Eos # (Auto) (0.0-0.4) X10*3/uL Baso # (Auto) (0.0-0.2) X10*3/uL Abs Immat Gran (auto) (0.00-0.03) X10*3/uL Absolute Neuts (auto) (2.0-8.3) x10*3/uL Absolute Nucleated RBC (0.0-0.012) X10*3/uL Nucleated RBC % (auto) (0.0-0.2) /100WBC Sodium (135-145) mmol/L Potassium (3.3-5.1) mmol/L Chloride (96-108) mmol/L Carbon Dioxide (22-29) mmol/L Anion Gap (12-20) BUN (9-16) mg/dL Creatinine (0.5-1.4) mg/dL Estim Creat Clear Calc Estimated GFR POC Glucose (60-115) mg/dL Random Glucose (60-115) mg/dL Calcium (8.4-10.2) mg/dL Magnesium (1.6-2.6) mg/dL Total Bilirubin (0.0-1.0) mg/dL Direct Bilirubin (0.0-0.5) mg/dL AST (5-31) U/L ALT (0-31) U/L Alkaline Phosphatase (39-117) U/L Troponin I High Sens < 2.7 (<3.5-17.0) ng/L Total Protein (6.5-8.0) g/dL Albumin (3.5-5.0) g/dL Urine Color Urine Appearance Urine pH (5.0-9.0) Ur Specific [place] (1.005-1.025) Urine Protein (Neg-Trace) mg/dL Urine Glucose (UA) (Negative) mg/dL Urine Ketones (Negative) mg/dL Urine Blood (Negative) Urine Nitrite (Negative) Ur Leukocyte Esterase (Negative) Urine RBC (0-2) /HPF Urine WBC (0-5) /HPF Ur Squamous Epith Cells (0-2) /HPF Urine Bacteria (None Seen) Hyaline Casts (0-2) /LPF COVID-19 ([facility]) Negative (Negative) COVID-19 Clin Com See Note Influenza Type A (TAL) Negative (Negative) Influenza Type B (TAL) Negative (Negative) Influenza A & B Note See Note 04/28/23 Range/Units 23:10 WBC (4.8-10.8) X10*3/uL RBC (4.20-5.50) X10*6/uL Hgb (12.0-16.0) g/dl Hct (37.0-47.0) % MCV (80.0-98.0) fL MCH (27.0-33.0) pg MCHC (31.0-35.0) g/dl RDW (11.0-16.0) % Plt Count (160-400) X10*3/uL MPV (9.4-12.3) fL Immature Gran % (Auto) (0.0-0.4) % Neut % (Auto) (45-73) % Lymph % (Auto) (20-40) % [place] % (Auto) (2-11) % Eos % (Auto) (0-4) % Baso % (Auto) (0-2) % Lymph # (Auto) (1.2-4.9) X10*3/uL [place] # (Auto) (0.1-1.2) X10*3/uL Eos # (Auto) (0.0-0.4) X10*3/uL Baso # (Auto) (0.0-0.2) X10*3/uL Abs Immat Gran (auto) (0.00-0.03) X10*3/uL Absolute Neuts (auto) (2.0-8.3) x10*3/uL Absolute Nucleated RBC (0.0-0.012) X10*3/uL Nucleated RBC % (auto) (0.0-0.2) /100WBC Sodium (135-145) mmol/L Potassium (3.3-5.1) mmol/L Chloride (96-108) mmol/L Carbon Dioxide (22-29) mmol/L Anion Gap (12-20) BUN (9-16) mg/dL Creatinine (0.5-1.4) mg/dL Estim Creat Clear Calc Estimated GFR POC Glucose (60-115) mg/dL Random Glucose (60-115) mg/dL Calcium (8.4-10.2) mg/dL Magnesium (1.6-2.6) mg/dL Total Bilirubin (0.0-1.0) mg/dL Direct Bilirubin (0.0-0.5) mg/dL AST (5-31) U/L ALT (0-31) U/L Alkaline Phosphatase (39-117) U/L Troponin I High Sens (<3.5-17.0) ng/L Total Protein (6.5-8.0) g/dL Albumin (3.5-5.0) g/dL Urine Color Yellow Urine Appearance Clear Urine pH 5.5 (5.0-9.0) Ur Specific [place] 1.020 (1.005-1.025) Urine Protein Negative (Neg-Trace) mg/dL Urine Glucose (UA) Negative (Negative) mg/dL Urine Ketones Trace (Negative) mg/dL Urine Blood Negative (Negative) Urine Nitrite Negative (Negative) Ur Leukocyte Esterase Trace H (Negative) Urine RBC 0-2 (0-2) /HPF Urine WBC 0-5 (0-5) /HPF Ur Squamous Epith Cells 0-2 (0-2) /HPF Urine Bacteria Trace (None Seen) Hyaline Casts 0-2 (0-2) /LPF COVID-19 ([facility]) (Negative) COVID-19 Clin Com Influenza Type A (TAL) (Negative) Influenza Type B (TAL) (Negative) Influenza A & B Note Independent Interpretation I performed an independent interpretation of an: EKG Interpretation: Normal sinus rhythm, HR -77, no STEMI, [place]/QRS/QTC is within normal limits. Radiology Impression Radiologist Impression: There is no pneumonia, gallbladder has been removed and otherwise my interpreta tion is in agreement with radiology's impression. External Record Review External record reviewed: Outpatient record and Prior outpatient labs Chronic Conditions Patient?s care impacted by: Hypertension Discharge Plan Discharge Clinical Impression: RUQ discomfort, Acid reflux Patient Disposition: Home, Self-Care Instructions: Abdominal Pain (ED), Diet for Stomach Ulcers and Gastritis (ED), Indigestion (ED), Gastroesophageal Reflux Disease (ED) Additional Instructions: 1. Resume all home medications as prescribed. 2. Follow-up with your primary care provider in the next 1-2 days. Return to the ER for any worsening symptoms. Prescriptions: No Action (DME) lancets [FreeStyle Lancets] 28 gauge misc See Rx Instructions .Route Qty: 100 6RF Rx Instructions: BID (DME) FreeStyle Julianne 2 Sensor Kit See Rx Instructions .Route Qty: 1 2RF Rx Instructions: As directed (DME) diabetic supplies, miscellan. Misc See Rx Instructions .Route Qty: 1 0RF Rx Instructions: As directed (DME) heating pads Pad See Rx Instructions .Route Qty: 1 0RF Rx Instructions: As directed (DME) Gel mattress overlay Misc See Rx Instructions .Route Qty: 1 0RF Rx Instructions: As directed (DME) Toilet seat riser See Rx Instructions .Route .MEDSUPPLY Qty: 1 0RF Rx Instructions: As directed (DME) miscellaneous medical supply [facility] See Rx Instructions .ROUTE .MEDSUPPLY Qty: 1 0RF Rx Instructions: toilet seat elevator (DME) pen needle, diabetic [BD Ultra-Fine Mini Pen Needle] 31 gauge x 3/16 needle See Rx Instructions .Route Qty: 100 0RF Rx Instructions: As directed (DME) BD Insulin Syringe (half unit) 0.3 mL 31 gauge x 5/16 syringe See Rx Instructions .Route Qty: 100 3RF Rx Instructions: Use 1 needle once a day hydrocortisone [Anti-Itch (HC)] 1 % cream 1 appl topical TID PRN (Reason: skin irritation) 30 Days Qty: 28.4 0RF duloxetine 60 mg capsule,delayed release(DR/EC) 90 mg PO DAILY 90 Days Qty: 135 1RF (DME) blood-glucose meter [FreeStyle Lite Meter] Kit See Rx Instructions .Route Qty: 1 0RF Rx Instructions: As directed (DME) FreeStyle Lite Strips Strip See Rx Instructions .Route Qty: 100 3RF Rx Instructions: use 1 test strip once a day (DME) walker [facility] See Rx Instructions .Route Qty: 1 0RF Rx Instructions: walker with seat and wheels metformin 500 mg tablet 500 mg PO BID Qty: 180 2RF (DME) insulin syringe-needle U-100 [BD Insulin Syringe Ultra-Fine] 0.5 mL 31 gauge x 5/16 syringe See Rx Instructions .Route Qty: 100 3RF Rx Instructions: Use 1 three times a day Advair HFA 230-21 mcg/actuation HFA aerosol inhaler 2 puff PO Q12H Qty: 12 6RF OsmoPrep 1.5 gram tablet 4 tab PO Q15M Qty: 32 0RF Rx Instructions: administer with 240 mL of clear fluid peg-electrolyte soln 420 gram recon soln 240 ml PO Q10M Qty: 4000 0RF Rx Instructions: until fecal effluent is clear water for irrigation, sterile Solution 1 irrig irrigation DAILY 30 Days Qty: 500 6RF insulin lispro 100 unit/mL solution 5 unit subcut TID 90 Days Qty: 13.5 2RF hydroxyzine HCl 50 mg tablet 50 mg PO BEDTIME Qty: 30 3RF senna 8.6 mg capsule 17.2 mg PO BEDTIME 90 Days Qty: 180 3RF alcohol swabs [Alcohol Prep Pads] Pads, Medicated 1 pad topical .once a day 90 Days Qty: 100 0RF metoprolol tartrate 50 mg tablet 50 mg PO BID 90 Days Qty: 180 1RF amlodipine 10 mg tablet 10 mg PO DAILY Qty: 90 1RF levothyroxine 112 mcg tablet 112 mcg PO DAILY 90 Days Qty: 90 1RF atorvastatin 10 mg tablet 10 mg PO BEDTIME 90 Days Qty: 90 1RF acetaminophen [Tylenol Arthritis Pain] 650 mg tablet extended release 650 mg PO Q8H PRN (Reason: arthritis pain) Qty: 90 3RF metolazone 2.5 mg tablet 2.5 mg PO 3XW Qty: 39 1RF albuterol sulfate [Ventolin HFA] 90 mcg/actuation HFA aerosol inhaler 2 puff PO Q6H PRN (Reason: for wheezing) Qty: 18 1RF (DME) diabetic shoes and inserts See Rx Instructions .Route .MEDSUPPLY Qty: 1 1RF Rx Instructions: As directed methocarbamol 750 mg tablet 750 mg PO QID Qty: 20 0RF insulin glargine [Lantus U-100 Insulin] 100 unit/mL solution 15 unit subcut QPM 90 Days Qty: 13.5 1RF dicyclomine 10 mg capsule 10 mg PO BID PRN (Reason: for cramps) Qty: 180 1RF sumatriptan succinate 25 mg tablet 25 mg PO ONCE PRN (Reason: migraine headache) Qty: 12 1RF gabapentin 800 mg tablet 800 mg PO TID 30 Days Qty: 90 0RF lidocaine 5 % adhesive patch,medicated 1 patch topical DAILY PRN (Reason: pain) 30 Days Qty: 30 2RF Rx Instructions: leave on most painful area for up to 12 hrs lorazepam [Ativan] 1 mg tablet 1 mg PO BID PRN (Reason: anxiety) Qty: 14 0RF ondansetron 4 mg tablet,disintegrating 4 mg PO Q8H PRN (Reason: nausea and vomiting) Qty: 30 0RF (DME) Shower Chair Misc See Rx Instructions .Route Qty: 1 0RF Rx Instructions: As directed sumatriptan succinate [Imitrex] 50 mg tablet 50 mg PO Q2-4H PRN (Reason: migraine headache) Qty: 10 0RF Rx Instructions: do not exceed 4 doses per 24 hrs metoclopramide HCl [Reglan] 5 mg tablet 5 mg PO BID PRN (Reason: nausea and vomiting) Qty: 14 0RF (DME) vaporizers Misc See Rx Instructions .ROUTE .MEDSUPPLY Qty: 1 Rx Instructions: As directed meclizine 25 mg tablet 25 mg PO TID PRN (Reason: dizziness) 90 Days Qty: 270 0RF (DME) cane Device See Rx Instructions .Route Qty: 1 0RF Rx Instructions: As directed clonidine HCl 0.1 mg tablet 0.1 mg PO TID PRN (Reason: Agitation or Anxiety) mirtazapine 30 mg tablet 30 mg PO BEDTIME albuterol sulfate 2.5 mg /3 mL (0.083 %) solution for nebulization 2.5 mg inhalation QID PRN (Reason: shortness of breath or wheezing) Qty: 75 0RF (DME) insulin syringe-needle U-100 [BD Insulin Syringe Ultra-Fine] 0.3 mL 31 gauge x 5/16 syringe See Rx Instructions .ROUTE .MEDSUPPLY Qty: 10 Rx Instructions: As directed Trulicity 0.75 mg/0.5 mL pen injector 0.75 mg subcut QWEEK Qty: 2 5RF hydrocortisone [Proctosol HC] 2.5 % cream with perineal applicator 1 appl [place] BID PRN (Reason: hemorrhoids) Qty: 30 3RF (DME) blood pressure test kit-wrist Kit See Rx Instructions .ROUTE .MEDSUPPLY Qty: 1 0RF Rx Instructions: to check blood pressure cyclobenzaprine 10 mg tablet 10 mg PO TID Qty: 90 0RF metoclopramide HCl [Reglan] 10 mg tablet 10 mg PO QIDACHS Qty: 120 6RF Rx Instructions: Provider aware possible interactions and is monitoring patient torsemide 20 mg tablet 40 mg PO BID 30 Days Qty: 120 6RF Referrals: Jenny Mendosa MD [Primary Care Provider] -
[2023-04-28 20:47] VITALS: BP 152/78; PULSE 90; RESP 16; TEMP 36.5; O2SAT 98; BMI 38.3
--- NOTE | 2023-04-28 20:48 | ECG_ITS ---
Test Reason : CHEST PAIN Blood Pressure : / mmHG Vent. Rate : 089 BPM Atrial Rate : 089 BPM P-R Int : 128 ms QRS Dur : 078 ms QT Int : 382 ms P-R-T Axes : 020 000 -17 degrees QTc Int : 464 ms Normal sinus rhythm Normal ECG When compared with ECG of 02-APR-2023 23:11, No significant change was found Referred By: Yvonne Treviño Electronically Signed By:MARISA SCHAFER MD
[2023-04-28 21:09] LABS: Glucose, Whole Blood 153 mg/dL (60-115)
--- NOTE | 2023-04-28 21:41 | ECG_ITS ---
Test Reason : REPEAT Blood Pressure : / mmHG Vent. Rate : 077 BPM Atrial Rate : 077 BPM P-R Int : 126 ms QRS Dur : 078 ms QT Int : 398 ms P-R-T Axes : -17 012 002 degrees QTc Int : 450 ms Normal sinus rhythm Normal ECG When compared with ECG of 28-APR-2023 21:28, No significant change was found Referred By: Maria Fernanda Dang Electronically Signed By:MARISA SCHAFER MD
[2023-04-28 21:43] LABS: MANUAL DIFF FLAG NO
[2023-04-28 21:45] LABS: Basophils Absolute Auto 0.1 X10*3/uL (0.0-0.2); Basophils Percent Auto 0.4 % (0-2); Eosinophils Absolute Auto 0.5 X10*3/uL (0.0-0.4); Eosinophils Percent Auto 3.1 % (0-4); Hematocrit 41.3 % (37.0-47.0); Hemoglobin 12.5 g/dl (12.0-16.0); Imm Gran Abs Auto 0.08 X10*3/uL (0.00-0.03); Imm Gran Pct Auto 0.5 % (0.0-0.4); Lymphocytes Percent Auto 12.7 % (20-40); Mean Corpuscular HGB Conc 30.3 g/dl (31.0-35.0); Mean Corpuscular Hemoglobin 22.2 pg (27.0-33.0); Mean Corpuscular Volume 73.5 fL (80.0-98.0); Mean Platelet Volume 11.1 fL (9.4-12.3); Monocytes Absolute Auto 0.6 X10*3/uL (0.1-1.2); Monocytes Percent Auto 3.6 % (2-11); Neutrophils Absolute Auto 12.7 x10*3/uL (2.0-8.3); Neutrophils Percent Auto 79.7 % (45-73); Platelet Count 319 X10*3/uL (160-400); Red Blood Count 5.62 X10*6/uL (4.20-5.50); Red Cell Distribution Width 18.2 % (11.0-16.0); White Blood Count 15.9 X10*3/uL (4.8-10.8)
[2023-04-28 22:11] LABS: Carbon Dioxide 25 mmol/L (22-29)
[2023-04-28 22:12] LABS: Alanine Aminotransferase 21 U/L (0-31); Albumin Level 4.1 g/dL (3.5-5.0); Alkaline Phosphatase 113 U/L (39-117); Anion Gap 21 (12-20); Aspartate Amino Transferase 15 U/L (5-31); Bilirubin Direct 0.2 mg/dL (0.0-0.5); Bilirubin Total 0.6 mg/dL (0.0-1.0); Blood Urea Nitrogen 13 mg/dL (9-16); Calcium 10.3 mg/dL (8.4-10.2); Chloride 98 mmol/L (96-108); Creatinine Clr Calc Pharmacy 98.3; Estimated Glomerular Filt Rate > 60; Glucose Random 162 mg/dL (60-115); Magnesium 1.7 mg/dL (1.6-2.6); Potassium 3.9 mmol/L (3.3-5.1); Sodium 140 mmol/L (135-145); Total Protein 8.4 g/dL (6.5-8.0)
[2023-04-28 22:21] LABS: Troponin-I High Sensitivity < 2.7 ng/L (<3.5-17.0)
[2023-04-28 22:26] LABS: IDNOW Serial# 08D9AD1C
[2023-04-28 22:27] LABS: Influenza A Negative (Negative); Influenza B2 Negative (Negative)
[2023-04-28 22:33] LABS: COVID-19 Test Negative (Negative); IDNOW Serial# BCCEAD1C
[2023-04-28 22:44] VITALS: PULSE 89
--- NOTE | 2023-04-28 23:04 | PC.NURSE ---
Pt ambulated to bathroom with walker and one assist. Pt complaining of pain in her head and her right side as well as dizziness. Pt is giving a urine sample at this time. Pt is A&Ox4, GCS 15.
[2023-04-28 23:20] LABS: Appearance Urine Clear; Color Urine Yellow; Glucose Urine UA Negative (Negative); Leukocyte Esterase Urine Trace (Negative); Nitrite Urine Negative (Negative); PH 5.5 (5.0-9.0); UMIC TRIGGER UACC YES; Urine Blood Negative (Negative); Urine Ketones Trace mg/dL (Negative); Urine Protein Negative (Neg-Trace)
[2023-04-28 23:23] LABS: Bacteria Urine Trace (None Seen); Hyaline Casts Urine 0-2 /LPF (0-2); RBC Urine 0-2 /HPF (0-2); Squamous Epithelial Cell Urine 0-2 /HPF (0-2); WBC Urine 0-5 /HPF (0-5)
[2023-04-29] VITALS: BP 109/63; PULSE 74; RESP 14; TEMP 37; O2SAT 96
--- NOTE | 2023-04-29 01:28 | PC.NURSE ---
Pt ambulated to bathroom with walker and one assist. Pt then complaining of increased pain and pressure in her chest, requesting pain medicine. Dr. Dang aware, stated pt can have magic mouthwash and tylenol.
[2023-04-29] MEDS: Acetaminophen 325 MG TABLET 975 MG PO (01:34)
[2023-04-29] MEDS: Mag&Al/Sim/Diphenhyd/Lidocaine 10 ML ORAL.SUSP PO (01:35)
--- NOTE | 2023-04-29 01:39 | PC.NURSE ---
Pt complaining of a headache and pressure in her chest which is making it feel hard to breathe. Pt has hx of asthma, uses CPAP at night, and takes treatments regularly at home. Pt O2 sats good in high 90's. aware.
[2023-04-29] MEDS: Albuterol Sulfate 90 MCG 8 GM INHALER 2 PUFF INHALE (01:44)
[2023-04-29 02:05] VITALS: BP 104/52; PULSE 75; RESP 12; TEMP 36.9; O2SAT 93
== END 2023-04-29 02:24 | disposition home or self-care (01) ==
PROVIDERS: Physician Assistant; Emergency Provider Student in an Organized Health Care Education/Training Program; PCP Internal Medicine
DX: R10.11 Right upper quadrant pain (principal); K21.9 Gastro-esophageal reflux disease without esophagitis; R06.02 Shortness of breath; E11.9 Type 2 diabetes mellitus without complications; I10 Essential (primary) hypertension; E78.5 Hyperlipidemia, unspecified; Z79.4 Long term (current) use of insulin; Z79.899 Other long term (current) drug therapy; Z20.822 Contact with and (suspected) exposure to COVID-19
CPT/HCPCS: 36415; 71045; 76705; 80048; 80076; 81001; 82947; 83735; 84484; 85025; 87502; 87635; 93005; 99285

== ENCOUNTER → 2023-04-28 20:48 | Outpatient (BNV) | payer OTHER, SELFPAY | PROVIDERS: Emergency Provider Student in an Organized Health Care Education/Training Program; PCP Internal Medicine; Visit Provider Internal Medicine Cardiovascular Disease | DX: R07.9 Chest pain, unspecified (principal) | CPT/HCPCS: 93010 ==

== ENCOUNTER 2023-05-12 16:18 | Outpatient (AMB) | payer OTHER, SELFPAY ==
--- NOTE | 2023-05-12 16:36 | MHC.PC.OV ---
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 Required: No Accompanied by: Self / Same As Patient Allergies Penicillins Allergy (Severe, Verified 05/12/23 16:48) swelling adhesive tape [ADHESIVE TAPE] Allergy (Intermediate, Verified 05/12/23 16:48) RASH amoxicillin [AMOXICILLIN] Allergy (Intermediate, Verified 05/12/23 16:48) RASH,SWELLING ibuprofen [From Motrin] Allergy (Intermediate, Verified 05/12/23 16:48) Hypertension latex Allergy (Intermediate, Verified 05/12/23 16:48) Rash Medication List - Last Reconciled 05/12/23 by Jenny Bell MD acetaminophen ER (Tylenol Arthritis Pain) 650 mg PO Q8H PRN albuterol sulfate 90 mcg/actuation (Ventolin HFA) 2 puffs PO Q6H PRN albuterol sulfate 2.5 mg (3 mL) inhalation QID PRN alcohol swabs (Alcohol Prep Pads) 1 pad topical .once a day 90 days amlodipine 10 mg PO DAILY atorvastatin 10 mg PO BEDTIME 90 days blood pressure test kit-wrist to check blood pressure blood sugar diagnostic (FreeStyle Lite Strips) use 1 test strip once a day blood-glucose meter (FreeStyle Lite Meter kit) As directed cane As directed clonidine HCl 0.1 mg PO TID PRN cyclobenzaprine 10 mg PO TID [diabetic shoes and inserts As directed] diabetic supplies, miscellan. As directed dicyclomine 10 mg PO BID PRN dulaglutide (Trulicity) 0.75 mg (0.5 mL) subcut QWEEK duloxetine 90 mg (1.5 x 60 mg) PO DAILY 90 days flash glucose sensor (FreeStyle Julianne 2 Sensor kit) As directed fluticasone propion-salmeterol 230-21 mcg/actuation (Advair HFA) 2 puffs PO Q12H gabapentin 800 mg PO TID 30 days Gel mattress overlay As directed heating pads As directed hydrocortisone 1% (Anti-Itch (hydrocortisone)) 1 appl topical TID PRN 30 days hydrocortisone 2.5% (Proctosol HC) 1 appl TX BID PRN hydroxyzine HCl 50 mg PO BEDTIME insulin glargine (Lantus U-100 Insulin) 15 units (0.15 mL) subcut QPM 90 days insulin lispro 5 units (0.05 mL) subcut TID 90 days insulin syr/ndl U100 half desean (BD Insulin Syringe Ultra-Fine (half unit)) Use 1 needle once a day insulin syringe-needle U-100 (BD Insulin Syringe Ultra-Fine) Use 1 three times a day insulin syringe-needle U-100 (BD Insulin Syringe Ultra-Fine) As directed lancets (FreeStyle Lancets) BID levothyroxine 112 mcg PO DAILY 90 days lidocaine 5% 1 patch topical DAILY PRN 30 days lorazepam (Ativan) 1 mg PO BID PRN meclizine 25 mg PO TID PRN 90 days metformin 500 mg PO BID methocarbamol 750 mg PO QID metoclopramide HCl (Reglan) 5 mg PO BID PRN metoclopramide HCl (Reglan) 10 mg PO QIDACHS metolazone 2.5 mg PO 3XW metoprolol tartrate 50 mg PO BID 90 days mirtazapine 30 mg PO BEDTIME miscellaneous medical supply toilet seat elevator ondansetron 4 mg PO Q8H PRN peg-electrolyte soln 420 gram 240 mL PO Q10M pen needle, diabetic (BD Ultra-Fine Mini Pen Needle) As directed sennosides (senna) 17.2 mg (2 x 8.6 mg) PO BEDTIME 90 days Shower Chair As directed sod phos mono-sod phos dibasic 1.5 gram (OsmoPrep) 4 tabs PO Q15M 5 doses sumatriptan succinate (Imitrex) 50 mg PO Q2-4H PRN sumatriptan succinate 25 mg PO ONCE PRN [Toilet seat riser As directed NS] torsemide 40 mg (2 x 20 mg) PO BID 30 days vaporizers As directed walker walker with seat and wheels water for irrigation, sterile 1 irrig irrigation DAILY 30 days Tobacco use date assessed: 01/07/23 Dental Screening Dental Screen Date: 05/12/23 Did you have a dental visit in the last 12 months?: Yes Did you have a dental problem in the last 6 months where you did not have access to dental care?: No Was dental information given to patient?: Patient has dentist HPI HPI Comments History of Present Illness Details This is a 58-year-old female with diabetes mellitus type 2 on long-term current use of insulin, hypertension, hyperlipidemia, hypothyroidism and moderate major depression that comes today for follow-up on her conditions. A1c within goal. Blood pressure elevated and will be recheck in 3 weeks by nurse navigator. Lipid panel will be order and her LDL goal should be less than 70. TSH will also be ordered to check her hypothyroidism. Depression somewhat stable with mirtazapine. Complains of diffuse joint pain and headaches. I will increase sumatriptan from 25 mg to 50 mg. [facility] Medical History (Updated 05/12/23 @ 19:11 by Jenny Bell MD) Arthropathy of facet joint Asthma Bilateral shoulder pain Chronic idiopathic constipation Chronic pain syndrome Degeneration, intervertebral disc, cervical Diabetes mellitus Disc degeneration, lumbar Fibromyalgia LUDY (generalized anxiety disorder) Gastroparesis Goiter Hyperlipidemia LDL goal <70 Hypothyroidism Incontinence Insomnia Left knee pain Lumbar pain Moderately severe recurrent major depression Morbid (severe) obesity due to excess calories Multiple air fluid levels of small intestine determined by X-ray Renal calculi Sleep apnea Small bowel motility disorder Spondylosis of cervical spine at multiple levels without myelopathy Spondylosis of lumbar region without myelopathy or radiculopathy Surgical History Delivery by section History of cholecystectomy History of esophagogastroduodenoscopy (EGD) History of hernia surgery History of hysterectomy History of knee replacement procedure of right knee Hx of colonoscopy Family History Father Past heart attack Anxiety Mother MOF (multiple organ failure) Brother HIV (human immunodeficiency virus infection) Sister Ovarian cancer Lupus Bone cancer Uterine cancer Tumor Daughter Guillain-[place] Sister Lupus History of open heart surgery Family/Other Depression FH: mental illness Maternal Aunt Breast cancer Maternal Aunt Tumor Social History Household Members: None Household Members Other:: Housing: Apartment Are you a primary furnace caretaker to a significant other at home: No 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 Shaquille Hitchcock, Janae Devlin, Avery Cutler and colleagues, with an educational carlos from [employer] Review of Systems Const All systems reviewed & are unremarkable except as noted in HPI and below Eyes Reports no additional complaints, Denies change in vision and Denies other visual disturbances Card Denies chest pain at rest, Denies chest pain with activity, Denies edema, Denies irregular heart rhythm, Denies claudication, Denies dyspnea, Denies dyspnea on exertion, Denies orthopnea, Denies paroxysmal nocturnal dyspnea and Denies slow heart rate Resp Denies cough, Denies dyspnea and Denies dyspnea on exertion GI Denies abdominal pain, Denies change in bowel habits, Denies excessive flatus, Denies nausea and Denies vomiting Denies urinary incontinence, Denies urinary hesitancy and Denies urinary urgency Musc Denies abnormal gait, Denies atrophy, Denies deformity and Denies limited range of motion Skin/Breast Denies bleeding lesions, Denies changing lesions and Denies rash Neuro Denies abnormal gait and Denies lack of coordination Physical exam (Primary Care) Vital Signs: Last Vital Signs Pulse 101 H 05/12/23 16:37 BP 146/94 H 05/12/23 16:37 Pulse Ox 94 05/12/23 16:37 Oxygen Delivery Method Room Air 05/12/23 16:37 BMI result Body Mass Index 38.7 Tobacco/Smoking Status: Tobacco use Status Tobacco use date assessed 01/07/23 05/12/23 16:42 Patient Tobacco Use Status Never used Tobacco 05/12/23 16:42 Tobacco use type 04/30/23 09:38 e-Cigarette/Vaping Use Never Used 05/12/23 16:42 Thrive Assessment: Date of Thrive Assessment Date Thrive assessed 01/07/23 05/12/23 16:42 Eyes General: appearance normal, both eyes and all related structures Eyelids: Yes eyelids normal Conjunctivae: conjunctivae normal Neck Neck: Yes normal visual inspection and Yes supple Resp Effort & Inspection: normal respiratory effort Auscultation: clear to auscultation bilaterally Cardio Jugular venous distension: no JVD Rate: regular rate Rhythm: regular rhythm Heart sounds: S1 normal heart sound present and S2 normal heart sound present Extrem General: Yes full ROM Results AMB Hemoglobin A1c AMB Hemoglobin A1c 6.3 % Last Edit by SUHAS Oneill on 05/12/23 16:49 Results Reviewed Results Reviewed: Laboratory Last Values Hgb A1c (Clinic) 6.3 % (4.0-6.0) H 05/12/23 16:42 Assessment and Plan Assessment & Plan (1) Hypothyroid: Code(s): E03.9 - Hypothyroidism, unspecified Plan: Continue levothyroxine. Monitor TSH. (2) Diabetes mellitus: Code(s): E11.9 - Type 2 diabetes mellitus without complications Qualifiers: Diabetes mellitus type: type 2 Diabetes mellitus termite technician insulin use: without penitentiary use Diabetes mellitus complication status: without complication Qualified Code(s): E11.9 - Type 2 diabetes mellitus without complications Plan: Continue insulin, metformin and Trulicity. A1c goal is equal or less than 7%. (3) Moderately severe recurrent major depression: Code(s): F33.2 - Major depressive disorder, recurrent severe without psychotic features Plan: Continue mirtazapine (4) Hypertension: Code(s): I10 - Essential (primary) hypertension Qualifiers: Hypertension type: essential hypertension Qualified Code(s): I10 - Essential (primary) hypertension Plan: Continue amlodipine. Recheck blood pressure with nurse navigator in 3 weeks. Blood pressure goal is equal or less than 130/80. (5) Hyperlipidemia LDL goal <70: Code(s): E78.5 - Hyperlipidemia, unspecified Plan: Continue statins. LDL goal is less than 70. Orders: Orders Comprehensive [place]. Panel Fast Today E11.43 - Type 2 diabetes mellitus with diabetic autonomic (poly)neuropathy, K31.84 - Gastroparesis Lipid Panel Today E78.5 - Hyperlipidemia, unspecified Thyroid Stimulating Hormone Today E03.9 - Hypothyroidism, unspecified Vitamin D 25-OH Total Today E55.9 - Vitamin D deficiency, unspecified Microalbumin, Random (w Creat) Today E11.9 - Type 2 diabetes mellitus without complications Complete Blood Count Auto Diff Today D64.9 - Anemia, unspecified AMB Hemoglobin A1c Today E11.9 - Type 2 diabetes mellitus without complications Medications: Refilled sumatriptan succinate (Imitrex) do not exceed 4 doses per 24 hrs 50 mg PO Q2-4H PRN 10 tabs 0RF migraine headache Discontinued sumatriptan succinate Discontinued Reason: Patient Completed Course 25 mg PO ONCE PRN 12 tabs 1RF migraine headache Coding Level of Care Code Est Pt Level 4 (16155) Diagnoses Hypothyroid E03.9 Diabetes mellitus E11.9 Diabetes mellitus type: type 2 Diabetes mellitus termite technician insulin use: without termite technician use Diabetes mellitus complication status: without complication Moderately severe recurrent major depression F33.2 Hypertension I10 Hypertension type: essential hypertension Hyperlipidemia LDL goal <70 E78.5 Time Spent (min) 21
[2023-05-12 16:37] VITALS: BP 146/94; PULSE 101; O2SAT 94; BMI 38.7
[2023-05-12 19:03] VITALS: BP 150/90
== END 2023-05-12 16:57 | disposition home or self-care (01) ==
PROVIDERS: PCP Internal Medicine; Visit Provider Internal Medicine
DX: E03.9 Hypothyroidism, unspecified (principal); E11.9 Type 2 diabetes mellitus without complications; F33.2 Major depressive disorder, recurrent severe without psychotic features; I10 Essential (primary) hypertension; E78.5 Hyperlipidemia, unspecified
CPT/HCPCS: 83036; 99214

== ENCOUNTER 2023-06-02 12:15 | Outpatient (REF) | payer OTHER, SELFPAY ==
[2023-06-02 12:33] LABS: MANUAL DIFF FLAG NO
[2023-06-02 13:59] LABS: Basophils Absolute Auto 0.1 X10*3/uL (0.0-0.2); Basophils Percent Auto 0.4 % (0-2); Eosinophils Absolute Auto 0.6 X10*3/uL (0.0-0.4); Eosinophils Percent Auto 3.2 % (0-4); Hematocrit 48.4 % (37.0-47.0); Imm Gran Abs Auto 0.21 X10*3/uL (0.00-0.03); Imm Gran Pct Auto 1.1 % (0.0-0.4); Lymphocytes Absolute Auto 2.7 X10*3/uL (1.2-4.9); Lymphocytes Percent Auto 13.8 % (20-40); Mean Corpuscular HGB Conc 28.9 g/dl (31.0-35.0); Mean Corpuscular Hemoglobin 21.5 pg (27.0-33.0); Mean Corpuscular Volume 74.5 fL (80.0-98.0); Mean Platelet Volume 11.4 fL (9.4-12.3); Monocytes Absolute Auto 0.8 X10*3/uL (0.1-1.2); Monocytes Percent Auto 4.3 % (2-11); Neutrophils Percent Auto 77.2 % (45-73); Platelet Count 401 X10*3/uL (160-400); White Blood Count 19.4 X10*3/uL (4.8-10.8)
[2023-06-02 14:38] LABS: Alanine Aminotransferase 21 U/L (0-31); Albumin Level 4.5 g/dL (3.5-5.0); Alkaline Phosphatase 108 U/L (39-117); Anion Gap 17 (12-20); Aspartate Amino Transferase 17 U/L (5-31); Bilirubin Total 0.4 mg/dL (0.0-1.0); Blood Urea Nitrogen 15 mg/dL (9-16); Calcium 10.8 mg/dL (8.4-10.2); Carbon Dioxide 28 mmol/L (22-29); Chloride 101 mmol/L (96-108); Cholesterol 127 mg/dL (<200); Estimated Glomerular Filt Rate > 60; Glucose Fasting 118 mg/dL (60-99); HDL Cholesterol 53 mg/dL (>40); Iron 37 mcg/dL (30-160); LDL Cholesterol Calculated 48 mg/dL (<100); Percent Iron Saturation 11 % (15-50); Potassium 4.2 mmol/L (3.3-5.1); Sodium 142 mmol/L (135-145); Total Iron Binding Capacity 339 mcg/dL (228-428); Total Protein 9.1 g/dL (6.5-8.0); Triglycerides 133 mg/dL (<150); Unsaturated Iron Binding 302 ug/dL
[2023-06-02 14:57] LABS: Vitamin D 25-OH Total 18.2 ng/mL (>30)
[2023-06-02 15:00] LABS: Folate 7.7 ng/mL (> or = 4.0); Vitamin B12 780 pg/mL (200-900)
== END 2023-06-02 12:16 | disposition home or self-care (01) ==
LOC: HO.LAB 12:15
PROVIDERS: PCP Internal Medicine; Visit Provider Internal Medicine
DX: D64.9 Anemia, unspecified (principal); E78.5 Hyperlipidemia, unspecified; E11.43 Type 2 diabetes mellitus with diabetic autonomic (poly)neuropathy; K31.84 Gastroparesis; E03.9 Hypothyroidism, unspecified; E53.8 Deficiency of other specified B group vitamins; E55.9 Vitamin D deficiency, unspecified
CPT/HCPCS: 36415; 80053; 80061; 82306; 82607; 82746; 83540; 84443; 85025

== ENCOUNTER 2023-06-10 10:33 | Outpatient (REF) | payer OTHER, SELFPAY ==
--- NOTE | ~2023-06-10 | CT_ITS ---
EXAMINATION: CT CHEST WITHOUT CONTRAST CLINICAL INFORMATION: Pulmonary nodules. COMPARISON: CT scans dating between January 06, 2023 and August 02, 2015. More remote chest CTs TECHNIQUE: Multidetector volumetric CT imaging of the chest was done. Axial MIP volume rendering provided. Sagittal and coronal reformatted images were obtained. This CT examination was performed using dose optimization techniques as appropriate, variously including the following: *Automated exposure control *Adjustment of mA and/or kV according to patient size (this includes techniques or standardized protocols for targeted exams where dose is matched to indication/reason for exam; i.e. extremities or head) *Use of iterative reconstruction technique DLP: 234 mGy-cm FINDINGS: LUNGS: Elevation of the right hemidiaphragm. Associated right basilar atelectasis. No evidence of inflammation or suspicious nodule. MEDIASTINUM: The mediastinum is normal. CORONARY ARTERY CALCIFICATION: None visualized on this study. PLEURA: There is no pleural effusion. No pleural mass or thickening. AXILLA: No lymphadenopathy by size criteria. UPPER ABDOMEN: Status post cholecystectomy. Question mild fatty infiltration of the liver. OSSEOUS STRUCTURES: Unremarkable. CT/CT chest wo IV con IMPRESSION: No suspicious lung nodule identified.
[2023-06-10 11:31] LABS: MANUAL DIFF FLAG NO
[2023-06-10 13:54] LABS: Basophils Absolute Auto 0.1 X10*3/uL (0.0-0.2); Basophils Percent Auto 0.4 % (0-2); Eosinophils Absolute Auto 0.5 X10*3/uL (0.0-0.4); Eosinophils Percent Auto 3.4 % (0-4); Hemoglobin 11.9 g/dl (12.0-16.0); Imm Gran Abs Auto 0.07 X10*3/uL (0.00-0.03); Imm Gran Pct Auto 0.5 % (0.0-0.4); Lymphocytes Absolute Auto 3.1 X10*3/uL (1.2-4.9); Mean Corpuscular Hemoglobin 21.6 pg (27.0-33.0); Mean Corpuscular Volume 74.3 fL (80.0-98.0); Mean Platelet Volume 11.3 fL (9.4-12.3); Monocytes Absolute Auto 0.6 X10*3/uL (0.1-1.2); Monocytes Percent Auto 4.4 % (2-11); Neutrophils Absolute Auto 9.2 x10*3/uL (2.0-8.3); Neutrophils Percent Auto 68.3 % (45-73); Platelet Count 322 X10*3/uL (160-400); Red Blood Count 5.52 X10*6/uL (4.20-5.50); Red Cell Distribution Width 19.4 % (11.0-16.0); White Blood Count 13.4 X10*3/uL (4.8-10.8)
[2023-06-10 14:33] LABS: Albumin Level 3.8 g/dL (3.5-5.0)
[2023-06-11 15:54] LABS: Calcium (PTHI) 8.9 mg/dL (8.6-10.4); PTHI 85 pg/mL (16-77)
[2023-06-16 19:03] LABS: Calcium, Ionized 4.9 mg/dL (4.7-5.5)
== END 2023-06-10 10:34 | disposition home or self-care (01) ==
LOC: HO.CT 10:33
PROVIDERS: Absent Provider Internal Medicine; PCP Internal Medicine; Visit Provider Internal Medicine Pulmonary Disease
DX: R91.8 Other nonspecific abnormal finding of lung field (principal); D64.9 Anemia, unspecified; E83.52 Hypercalcemia
CPT/HCPCS: 36415; 71250; 82040; 82330; 83970; 85025; 99212

== ENCOUNTER 2023-06-10 13:58 | Outpatient (AMB) | payer OTHER, SELFPAY ==
[2023-06-10 14:04] VITALS: BP 146/72; PULSE 93; O2SAT 97; BMI 38.7
--- NOTE | 2023-06-10 14:04 | A.OFFVIS_ITS ---
Intake Vital Signs 06/10/23 14:04 Height 5 ft 7 in Weight 246 lb 14.684 oz BMI 38.7 BP 146/72 H Blood Pressure Location Lt brachial Position Sitting Pulse 93 Pulse Source Doppler Pulse Oximetry (%) 97 Oxygen Delivery Method Room Air Intake Visit Reasons: ct follow up Allergies Penicillins Allergy (Severe, Verified 06/10/23 14:08) swelling adhesive tape [ADHESIVE TAPE] Allergy (Intermediate, Verified 06/10/23 14:08) RASH amoxicillin [AMOXICILLIN] Allergy (Intermediate, Verified 06/10/23 14:08) RASH,SWELLING ibuprofen [From Motrin] Allergy (Intermediate, Verified 06/10/23 14:08) Hypertension latex Allergy (Intermediate, Verified 06/10/23 14:08) Rash HPI ct follow up HPI Details 57-year-old lady, nonsmoker but with exp osure to secondhand smoke, with underlying history of elevated right-sided diaphragm, now followed for asthma, MARY, and dyspnea on exertion. She continues to use Advair 230 and albuterol MDI with reasonable control of her asthma symptoms. Until recently her orthopnea and lower extremity edema was controlled on her torsemide, however over the last several weeks she started getting more orthopnea and lower extremity edema, also with worsening dyspnea on exertion. [facility] History Arthropathy of facet joint Asthma Bilateral shoulder pain Chronic idiopathic constipation Chronic pain syndrome Degeneration, intervertebral disc, cervical Diabetes mellitus Disc degeneration, lumbar Fibromyalgia LUDY (generalized anxiety disorder) Gastroparesis Goiter Hyperlipidemia LDL goal <70 Hypothyroidism Incontinence Insomnia Left knee pain Lumbar pain Moderately severe recurrent major depression Morbid (severe) obesity due to excess calories Multiple air fluid levels of small intestine determined by X-ray Renal calculi Sleep apnea Small bowel motility disorder Spondylosis of cervical spine at multiple levels without myelopathy Spondylosis of lumbar region without myelopathy or radiculopathy Surgical History Delivery by section History of cholecystectomy History of esophagogastroduodenoscopy (EGD) History of hernia surgery History of hysterectomy History of knee replacement procedure of right knee Hx of colonoscopy Family History Father Past heart attack Anxiety Mother MOF (multiple organ failure) Brother HIV (human immunodeficiency virus infection) Sister Ovarian cancer Lupus Bone cancer Uterine cancer Tumor Daughter Guillain-[place] Sister Lupus History of open heart surgery Family/Other Depression FH: mental illness Maternal Aunt Breast cancer Maternal Aunt Tumor Social History Household Members: None Household Members Other:: Housing: Apartment Are you a primary associate director career services to a significant other at home: No Do you 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 have 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) Alcohol intake: never Patient Tobacco Use Status: Never used Tobacco e-Cigarette/Vaping Use: Never Used Second Hand Smoke Exposure: Yes Advance Directives Date on File: 12/08/21 service: No Current occupational status: unemployed and disabled Cognitive needs: No Hearing needs: No Vision needs: No Review of Systems Const Denies daytime sleepiness, Denies excessive sweating, Denies fatigue, Denies fever(s), Denies lethargy, Denies malaise, Denies night sweats, Denies snoring and Denies weight loss Eyes Denies blurry vision and Denies itchy eyes ENT Denies nasal congestion, Denies post nasal drip, Denies sinus pain, Denies sinus pressure and Denies other ( Thrush) Card Denies chest pain, Reports pedal edema, Denies dyspnea, Reports dyspnea on exertion, Reports orthopnea and Reports paroxysmal nocturnal dyspnea Resp Denies cough, Denies hemoptysis, Denies excessive phlegm production, Denies dys pnea, Reports dyspnea on exertion, Denies snoring and Denies wheezing GI Denies abdominal pain and Denies heartburn Musc Denies myalgias, Denies arthralgias and Denies joint swelling Skin/Breast Denies rash Neuro Denies memory loss and Denies seizure-like activity Psych Denies abnormal sleep pattern, Denies anxiety and Denies memory loss Endo Denies excessive sweating, Denies fatigue and Denies heat intolerance Dalton/Lymph Denies easy bruising Aller/Immun Denies itchy eyes, Denies seasonal rhinorrhea and Denies wheezing Physical Exam Vital Signs: Last Vital Signs Pulse 93 06/10/23 14:04 BP 146/72 H 06/10/23 14:04 Pulse Ox 97 06/10/23 14:04 Oxygen Delivery Method Room Air 06/10/23 14:04 BMI result Body Mass Index 38.7 Const General: no acute distress and alert Nutritional Appearance: obese Orientation/consciousness: Other orientation findings ( oriented) HEENT Head: Yes atraumatic Eyes General: appearance normal, both eyes and all related structures Sclerae: sclerae normal EOM: EOMs intact bilaterally Neck Neck: Yes supple Lymphatic: no lymphadenopathy noted Resp Effort & Inspection: normal respiratory effort and no use of accessory muscles Auscultation: clear to auscultation bilaterally Cardio Rate: regular rate Rhythm: regular rhythm Heart sounds: no gallops, no murmurs and no rubs Skin General skin exam: other ( warm) Extrem General: No clubbing, No cyanosis and Yes edema (2+ bilateral) Assessment & Plan Assessment & Plan (1) Asthma: Code(s): J45.909 - Unspecified asthma, uncomplicated Qualifiers: Asthma severity: moderate Asthma persistence: persistent Asthma complication type: uncomplicated Qualified Code(s): J45.40 - Moderate persistent asthma, uncomplicated Plan: Well controlled on baseline regimen of Advair and albuterol MDI. Continue current regimen. (2) Orthopnea: Code(s): R06.01 - Orthopnea Plan: Now with worsening orthopnea, paroxysmal nocturnal dyspnea, and dyspnea on exertion. Will switch torsemide to Bumex 2 mg twice a day. Medications: New bumetanide 2 mg PO BID 30 days 60 tabs 6RF Discontinued torsemide Discontinued Reason: Doctor's Order 40 mg (2 x 20 mg) PO BID 90 days 360 tabs 2RF Coding Level of Care Code Est Pt Level 4 (37524) Diagnoses Moderate persistent asthma without complication J45.40 Asthma severity: moderate Asthma persistence: persistent Asthma complication type: uncomplicated Orthopnea R06.01
== END 2023-06-10 14:23 | disposition home or self-care (01) ==
PROVIDERS: PCP Internal Medicine; Visit Provider Internal Medicine Pulmonary Disease
DX: J45.40 Moderate persistent asthma, uncomplicated (principal); R06.01 Orthopnea
CPT/HCPCS: 99214

== ENCOUNTER 2023-06-17 10:20 | Outpatient (AMB) | payer OTHER, SELFPAY ==
--- NOTE | 2023-06-17 10:28 | A.OFFVIS_ITS ---
Intake Vital Signs 3 06/17/23 10:32 Height 5 ft 7 in Weight 242 lb 15.19 oz BMI 38.0 BP 157/87 H Blood Pressure Location Lt brachial Position Sitting Pulse 91 Intake Visit Reasons: s/p EGD/colo -abd pain Intake Note: Patient presents to in office visit today s/p EGD and colonoscopy. CC: Patient c/o RLQ abdominal pain and reports she noticed that her RLQ abdomen and flank seems bigger than left side. She also c/o nausea, headache x 3 days, and lower back pain. 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 ? Dictated By:Anatoly Montez MDSigned By:<Electronically signed by Anatoly Montez MD in [place]>05/08/22 ?Code(s): E11.43 - Type 2 diabetes mellitus with diabetic autonomic (poly)neuropathy; K31.84 - Gastroparesis ?Plan: She is doing quite well on the Reglan in terms of control of her GI symptoms.? She does have some areas of excoriation on her lower extremities but these do not look like a drug eruption more like dry skin from diabetes. Her problem with the prep was the amount and the taste and her insurance seems to cover OsmoPrep so will see if we can get this for her and get her successfully prepped and rescheduled for colonoscopy so we can protect her future Colon Health.? I described the prep to her and she is agreeable to this.? Since we resolve most of her symptoms by treating her gastroparesis I do not think any an endoscopy along with the colonoscopy at this time. She still complaining of some bloating but I think will take a conservative approach this and try prescribing simethicone.? I do tell her that if it is not covered by insurance she may need to buy it [id number]. She denies any prior problems with anesthesia or sedation. She denies any severe cardiac or respiratory problems. There are no infectious disease problems. There is no known family history of colon cancer. Return office visit in 6 weeks to see if the simethicone alleviates her remaining symptoms and of course I will see her after the colonoscopy. (2) Chronic idiopathic constipation: ?Code(s): K59.04 - Chronic idiopathic constipation (3) MARY (obstructive sleep apnea): ?Code(s): G47.33 - Obstructive sleep apnea (adult) (pediatric) (4) GERD (gastroesophageal reflux diseas e): ?Code(s): K21.9 - Gastro-esophageal reflux disease without esophagitis (5) Morbid (severe) obesity due to exces s calories: ?Code(s): E66.01 - Morbid (severe) obesity due to excess calories (6) Pre-op examination: ?Code(s): Z01.818 - Encounter for other preprocedural examination ? ? ? Medications: New Bsod phos mono-sod phos dibasic 1.5 g john (OsmoPrep) ?? administer with 24 0 mL of clear flui d 4 tabs PO Q15M 32 tabs 0RF 5 doses K ? ? 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 Bsimethicone ?? aft er meals 180 mg PO QID 120 caps 3RF 30 days K ? ? Refilled Emetoclopramide HCl (Reglan) ?? Provi javier aware possible interactions and is monitoring joaquin ent 10 mg PO QIDACHS 120 tabs 6RF E11.43 - Type 2 di abetes mellitus wi th diabetic autono evan (poly)neuropat hy, K31.84 - Gastr oparesis ? Epantoprazole 40 mg PO DAILY 30 tabs 6RF ? ? Discontinued Fbenzonatate ?? Dis continued Reason:? Doctor's Order 200 mg? PO TID CA N 30 caps 0RF coug h ? ? Ftramadol ?? Discon tinued Reason:? Pa tient no longer ta yudith 50 mg? PO Q6H PRN 20 tabs 0RF pain F ? ? Fferrous sulfate ?? Discontinued Reas on:? Patient Compl eted Course 325 mg? PO DAILY 90 days 90 tabs 1R F ? ? Fgabapentin ?? Disc ontinued Reason:? Patient no longer taking 800 mg? PO TID 30 days 90 tabs 0RF F ? ? Fmetoclopramide HCl ?? Discontinued R sunshine:? Doctor's O rder 5 mg? PO TIDAC 90 tabs 6RF K31.84 - Gastropar esis ? Fpeg 3350-electroly victorino 236-22.74-6.74 -5.86 gram ?? unt il fecal effluent is clear; do not e xceed a total volu me of 2,000 mL ?? Discontinued Reaso n:? Doctor's Order B 240 mL? PO Q10M 1 day 4,000 mL 0RF F Z12.11 - Encounter for screening for malignant neoplas m of colon ? Floperamide ?? Disc ontinued Reason:? Patient no longer taking 2 mg? PO TID PRN 90 caps 0RF loose stool R19.7 - Diarrhea, unspecified ? Mzqluuk-kopoyasb-gf ylase 24,000-76,00 0 -120,000 unit ?? administer with m eals and/or snacks ?? Discontinued R sunshine:? Doctor's O rder 1 cap? PO QID 30 days 120 caps 6RF F K58.9 - Irritable bowel syndrome wit hout diarrhea ? Fhydroxyzine HCl ?? Discontinued Reas on:? Patient no lo nger taking 50 mg? PO BEDTIME 30 tabs 3RF B37.9 - Candidiasi s, unspecified, R2 1 - Rash and other nonspecific skin eruption ? Fmetolazone ?? Disc ontinued Reason:? Patient no longer taking 2.5 mg? PO MOWEFR 30 days 13 tabs 0 RF ? COLONOSCOPY/EGD 01/14/23 Findings: Larynx:normal Esophagus: GE junction at 37? cm, diaphragm hiatus at 37 cm, bogginess and erythema at GEJ, bx taken Stomach: Patchy erythema. Biopsies were obtained. Grade 2 flap valve on retroflexed examination of the cardia. Few small fundic gland polyps noted. The pylori outlet seemed tight, dilated with 20 mm balloon, no tears seen. Gastric movement seemed normal. Duodenum: 6-8 mm polypoid lesion in bulb removed with cold forceps -random bx also taken Intervention: Biopsies as noted above Findings: Terminal Ileum-not seen Random colon bx taken Cecum:not seen due to poor prep Ascending Colon: normal Transverse Colon -normal Descending Colon:normal Sigmoid Colon: normal Rectum: Retroflexion not done due to poor prep Anorectum - normal Impression and Post Procedure Diagnosis: Endoscopy Findings: gastritis esophagitis Colonoscopy Findings: poor prep Plan: Await Pathology results Repeat Colonoscopy in 6-12 months or earlier if clinically indicated, emphasize compliance with prep High fiber diet leaflet BIOPSY Received: 01/14/23 Diagnosis A.? Duodenum, biopsy:? Chronic inactive duodenitis. B.? Duodenum, bulb, biopsy:? Chronic inactive duodenitis. C.? Stomach, biopsy:? Oxyntic mucosa with mild chronic inactive inflammation; no Helicobacter organisms seen. D.? GE junction, biopsy: - Cardiac-type mucosa with moderate chronic, focally active, inflammation; no intestinal metaplasia seen. - Squamous mucosa within normal limits. E.? Colon, random, biopsy:? Colonic mucosa within normal limits.. * REVIEW OF ER NOTES 04/28/2023 Medical Decision Making MDM Narrative: 58-year-old female with history and clin ical presentation, DDX:? Musculoskeletal, cholecystitis, gastritis, less likely felt to be pneumonia, ACS, or pancreatitis. I reviewed all investigations and my interpretation is this patient has acid reflux as hematologic indices demonstrate a chronic leukocytosis without thrombocytopenia and a chronic left shift.? Chemistry indices do not demonstrate any electrolyte derangements, no RE, liver enzymes are grossly within normal limits, troponin is undetectable in conjunction with an EKG that does not demonstrate any acute changes.? I have no clinical suspicion for PE and although patient informed me that she still had her gallbladder the upper abdominal ultrasound seems to indicate that it has been surgically removed ruling out the possibility of cholecystitis, CBD appears to be within normal limits and no evidence to suggest choledocholithiasis.? Urinalysis negative for evidence of UTI or hematuria and chest x-ray negative for pneumonia and otherwise my interpretation is in agreement with radiology's impression. Patient was provided with Tylenol, Magic mouthwash (GI cocktail), as well as 2 puffs on a ventolin inhaler.? Patient is otherwise discharged home and my interpretation is that she has a combination of musculoskeletal pain likely secondary to underlying fibromyalgia diagnosis and possible in activity as well as a component of acid reflux. Differential Diagnosis Differential Diagnoses: The differential diagnosis associated with the presentation includes Please see the discussion above Admission/Observation Consideration of admission/observation: Escalation of care including admission/observation considered Please see the discussion above Lab Data TODAYS VISIT She tolerated the procedure well and did not have trouble but admits that she ate the day before the procedure. She is agreeable to the 1-2 year repeat. The procedure was well tolerated. The results were explained and the patient is agreeable to the follow-up interval as stated. The bowel pattern has returned to normal. Education was provided to tell any 1st degree relatives about their findings to be sure that they are screened by age 45. Educated that they will be put on a recall list when it is time for their repeat scope but should they move out of state or away from the hospital they will need to remember along with their primary to repeat the procedure in a timely fashion to avoid any adverse complications. She tells me she has missed several visits because she has been very sick. She is having quite a lot of trouble with severe headaches that are not responsive to either her gabapentin (which is for her fibromyalgia) or to her sumatriptan. She has been apparently discharged by Neurology and Rheumatology. She says the gabapentin is not helping her at all. She also sees pain management for injections of her lumbar spine and she recently had 1 that was not helpful with the pain. With this she continues to have epigastric discomfort which does not surprise me given the findings of focal active inflammation on her last EGD in January. We review all of the results for this and her colonoscopy. I want to get her on twice a day PPI as I really believe she would benefit from a but this may be restricted according to her insurance. We may need to consider doing an a.m. PPI and in evening dose of famotidine depending on what happens with the PA. she also complains of intermittent nausea that seems to be triggered by swallowing her own saliva despite being adherent to her 10 mg of Reglan 4 times a day. She has senna for occasional constipation but she has not been struggling much with diarrhea or constipation at this time., Return office visit after the ultrasound which was ordered to explore a painful lump in her right lower quadrant and a 6 month appointment so that we do not was track of each other. ON LICENSE OF [facility] Medical History Gastroparesis Left knee pain Hypothyroidism Bilateral shoulder pain Hyperlipidemia LDL goal <70 Degeneration, intervertebral disc, cervical Spondylosis of cervical spine at multiple levels without myelopathy Sleep apnea Renal calculi Incontinence Goiter Disc degeneration, lumbar Spondylosis of lumbar region without myelopathy or radiculopathy Arthropathy of facet joint Lumbar pain Insomnia LUDY (generalized anxiety disorder) Moderately severe recurrent major depression Multiple air fluid levels of small intestine determined by X-ray Diabetes mellitus Chronic pain syndrome Morbid (severe) obesity due to excess calories Fibromyalgia Small bowel motility disorder Chronic idiopathic constipation Asthma Surgical History History of knee replacement procedure of right knee History of hernia surgery Hx of colonoscopy History of esophagogastroduodenoscopy (EGD) History of cholecystectomy Delivery by section History of hysterectomy Family History Father Past heart attack Anxiety Mother MOF (multiple organ failure) Brother HIV (human immunodeficiency virus infection) Sister Ovarian cancer Lupus Bone cancer Uterine cancer Tumor Daughter Guillain-[place] Sister Lupus History of open heart surgery Family/Other Depression FH: mental illness Maternal Aunt Breast cancer Maternal Aunt Tumor Social History Household Members: None Household Members Other:: Housing: Apartment Are you a primary healthcare translator to a significant other at home: No Do you presently have visiting 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 If so, by whom?: No Do you feel safe in your current relationship?: Yes Is there a partner from a previous relationship who is making you feel unsafe now?: No Are you made to feel afraid or neglected: No Advance Directives: Yes Advance Directives on File: Yes Advance Directives Date on File: 12/08/21 Do you have thoughts of harming others: None Do you have a plan to hurt others: No Plan Recently lost weight without trying: No Nutrition Risks: No Nutritional Risk Patient : No : No Poor oral hygiene: No service: No Current occupational status: unemployed and disabled Cognitive needs: No Hearing needs: No Vision needs: No Review of Systems Const Reports body aches, Denies fatigue, Denies fever(s), Reports headache(s), Denies night sweats, Denies poor appetite and Denies weight loss ENT Reports Normal hearing present, Denies dysphagia, Reports headache(s), Reports neck pain, Denies odynophagia, Denies throat swelling and Denies tongue swelling Card Reports no additional complaints Resp Reports no additional complaints GI Reports abdominal pain, Denies melena, Denies bloating, Denies hematochezia, Reports constipation, Denies GI cramping, Denies dysphagia, Denies excessive flatus, Denies early satiety, Reports heartburn, Denies diarrhea, Reports nausea, Denies odynophagia, Denies vomiting and Denies hematemesis Musc Reports back pain, Reports myalgias, Reports arthralgias, Reports neck pain and Reports stiffness Skin/Breast Denies pruritus, Denies lesions, Denies rash and Denies jaundice Neuro Reports Normal hearing present, Denies Abnormal speech present, Reports headache(s) and Reports Other visual disturbances Psych Reports anxiety Endo Denies fatigue Aller/Immun Denies throat swelling and Denies tongue swelling Physical Exam Vital Signs: Last Vital Signs Pulse 91 06/17/23 10:32 BP 157/87 H 06/17/23 10:32 BMI result Body Mass Index 38.0 Const General: cooperative, no acute distress, well developed and well groomed Nutritional Appearance: well nourished and obese morbidly obese Orientation/consciousness: oriented to person, oriented to place and oriented to time Limitations: No language barrier and ambulation with cane HEENT Head: Yes normocephalic and Yes atraumatic Eyes General: appearance normal, both eyes and all related structures Pupils: Equal, round and reactive pupils present Neck Neck: Yes normal visual inspection and Yes no lymphadenopathy Thyroid: Thyroid normal Resp Effort & Inspection: normal respiratory effort and able to speak in complete sentences Auscultation: clear to auscultation bilaterally Cardio Rate: regular rate Rhythm: regular rhythm Heart sounds: Normal, physiologic split S2 sound present Peripheral pulses: radial pulses present and posterior tibial pulses present GI Inspection: No distended, Yes Abdominal panniculus present and Yes obesity Palpation (GI): Soft to palpation, Tenderness to palpation present (GI) in the epigastrum and in the RLQ, no guarding, not rigid and No hepatosplenomegaly present Percussion: Yes normal to percussion Auscultation: normal bowel sounds Rectal Exam - Female: deferred Abdomen image: 2 1. Bulge which could be uneven fat distribution Skin General skin exam: no rashes or lesions noted, turgor normal, skin not dry, no jaundice, No spider nevi and no striae Rashes: no rashes Nails: normal Neuro General: oriented to person, oriented to place and oriented to time Cranial nerves: Yes Equal, round and reactive pupils present and Yes Normal hearing present Speech: No Abnormal speech present Extrem General: Yes normal to inspection, No clubbing, No cyanosis and No edema Psych Appearance: grossly normal and well kempt Mental Status: mental status grossly normal Speech and movement: Normal speech and movement present Affect: normal affect Attitude: cooperative Thought process: Normal thought process present and not confabulating Thought content: Normal thought content present Insight: Limited insight present (Psych) Judgement: Limited judgement present (Psych) Results Reviewed Results Reviewed: COLONOSCOPY/EGD 01/14/23 Findings: Larynx:normal Esophagus: GE junction at 37? cm, diaphragm hiatus at 37 cm, bogginess and erythema at GEJ, bx taken Stomach: Patchy erythema. Biopsies were obtained. Grade 2 flap valve on retroflexed examination of the cardia. Few small fundic gland polyps noted. The pylori outlet seemed tight, dilated with 20 mm balloon, no tears seen. Gastric movement seemed normal. Duodenum: 6-8 mm polypoid lesion in bulb removed with cold forceps -random bx also taken Intervention: Biopsies as noted above Findings: Terminal Ileum-not seen Random colon bx taken Cecum:not seen due to poor prep Ascending Colon: normal Transverse Colon -normal Descending Colon:normal Sigmoid Colon: normal Rectum: Retroflexion not done due to poor prep Anorectum - normal Impression and Post Procedure Diagnosis: Endoscopy Findings: gastritis esophagitis Colonoscopy Findings: poor prep Plan: Await Pathology results Repeat Colonoscopy in 6-12 months or earlier if clinically indicated, emphasize compliance with prep High fiber diet leaflet BIOPSY Received: 01/14/23 Diagnosis A.? Duodenum, biopsy:? Chronic inactive duodenitis. B.? Duodenum, bulb, biopsy:? Chronic inactive duodenitis. C.? Stomach, biopsy:? Oxyntic mucosa with mild chronic inactive inflammation; no Helicobacter organisms seen. D.? GE junction, biopsy: - Cardiac-type mucosa with moderate chronic, focally active, inflammation; no intestinal metaplasia seen. - Squamous mucosa within normal limits. E.? Colon, random, biopsy:? Colonic mucosa within normal limits.. * REVIEW OF ER NOTES 04/28/2023 Medical Decision Making MDM Narrative: 58-year-old female with history and clinical presentation, DDX:? Musculoskeletal, cholecystitis, gastritis, less likely felt to be pneumonia, ACS, or pancreatitis. I reviewed all investigations and my interpretation is this patient has acid reflux as hematologic indices demonstrate a chronic leukocytosis without thrombocytopenia and a chronic left shift.? Chemistry indices do not demonstrate any electrolyte derangements, no RE, liver enzymes are grossly within normal limits, troponin is undetectable in conjunction with an EKG that does not demonstrate any acute changes.? I have no clinical suspicion for PE and although patient informed me that she still had her gallbladder the upper abdominal ultrasound seems to indicate that it has been surgically removed ruling out the possibility of cholecystitis, CBD appears to be within normal limits and no evidence to suggest choledocholithiasis.? Urinalysis negative for evidence of UTI or hematuria and chest x-ray negative for pneumonia and otherwise my interpretation is in agreement with radiology's impression. Patient was provided with Tylenol, Magic mouthwash (GI cocktail), as well as 2 puffs on a ventolin inhaler.? Patient is otherwise discharged home and my interpretation is that she has a combination of musculoskeletal pain likely secondary to underlying fibromyalgia diagnosis and possible in activity as well as a component of acid reflux. Differential Diagnosis Differential Diagnoses: The differential diagnosis associated with the presentation includes Please see the discussion above Admission/Observation Consideration of admission/observation: Escalation of care including admission/observation considered Please see the discussion above Assessment & Plan Assessment & Plan (1) GERD (gastroesophageal reflux disease): Code(s): K21.9 - Gastro-esophageal reflux disease without esophagitis (2) Right sided abdominal pain: Comment: Seems related to bloating and cramping Code(s): R10.9 - Unspecified abdominal pain (3) Abdominal cramping: Code(s): R10.9 - Unspecified abdominal pain (4) Morbid (severe) obesity due to excess calories: Code(s): E66.01 - Morbid (severe) obesity due to excess calories (5) Erosive esophagitis: Code(s): K22.10 - Ulcer of esophagus without bleeding (6) Abdominal wall bulge: Code(s): R19.00 - Intra-abdominal and pelvic swelling, mass and lump, unspecified site Orders: Orders 2 US abdomen complete 06/17/23 R19.00 - Intra-abdominal and pelvic swelling, mass and lump, unspecified site Medications: New 2 pantoprazole (Protonix) 40 mg PO BID 60 tabs 6RF 30 days K22.10 - Ulcer of esophagus without bleeding Refilled 2 sennosides (senna) 17.2 mg (2 x 8.6 mg) PO BEDTIME 180 tabs 3RF constipation 90 days K59.04 - Chronic idiopathic constipation, G47.33 - Obstructive sleep apnea (adult) (pediatric), E11.43 - Type 2 diabetes mellitus with diabetic autonomic (poly)neuropathy, K31.84 - Gastroparesis, K21.9 - Gastro-esophageal reflux disease without esophagitis, E66.01 - Morbid (severe) obesity due to excess calories metoclopramide HCl (Reglan) Provider aware possible interactions and is monitoring patient 10 mg PO QIDACHS 120 tabs 6RF E11.43 - Type 2 diabetes mellitus with diabetic autonomic (poly)neuropathy, K31.84 - Gastroparesis Discontinued 2 ondansetron Discontinued Reason: Doctor's Order 4 mg PO Q8H PRN 30 tabs 0RF nausea and vomiting sod phos mono-sod phos dibasic 1.5 gram administer with 240 mL of clear fluid Discontinued Reason: Patient Completed Course 4 tabs PO Q15M 32 tabs 0RF peg-electrolyte soln 420 gram until fecal effluent is clear Discontinued Reason: Patient Completed Course 240 mL PO Q10M 4,000 mL 0RF Coding Level of Care Code Est Pt Level 4 (95872) Diagnoses GERD (gastroesophageal reflux disease) K21.9 Right sided abdominal pain R10.9 Abdominal cramping R10.9 Morbid (severe) obesity due to excess calories E66.01 Erosive esophagitis K22.10 Abdominal wall bulge R19.00
[2023-06-17 10:32] VITALS: BP 157/87; PULSE 91; BMI 38.0
== END 2023-06-17 11:11 | disposition home or self-care (01) ==
PROVIDERS: PCP Internal Medicine; Visit Provider Nurse Practitioner
DX: K21.9 Gastro-esophageal reflux disease without esophagitis (principal); R10.9 Unspecified abdominal pain; E66.01 Morbid (severe) obesity due to excess calories; K22.10 Ulcer of esophagus without bleeding; R19.00 Intra-abdominal and pelvic swelling, mass and lump, unspecified site
CPT/HCPCS: 99214

== ENCOUNTER → 2023-06-17 10:20 | Outpatient (BNVA) | payer OTHER, SELFPAY | PROVIDERS: PCP Internal Medicine; Visit Provider Nurse Practitioner | DX: K21.9 Gastro-esophageal reflux disease without esophagitis (principal); R10.9 Unspecified abdominal pain; E66.01 Morbid (severe) obesity due to excess calories; Z68.38 Body mass index [BMI] 38.0-38.9, adult; K22.10 Ulcer of esophagus without bleeding; R19.00 Intra-abdominal and pelvic swelling, mass and lump, unspecified site; Z98.890 Other specified postprocedural states | CPT/HCPCS: 99212 ==

== ENCOUNTER 2023-06-30 09:56 | Outpatient (AMB) | payer OTHER, SELFPAY ==
[2023-06-30 10:02] VITALS: BP 142/76; PULSE 100; O2SAT 96; BMI 38.8
--- NOTE | 2023-06-30 10:02 | A.OFFVIS_ITS ---
Intake Vital Signs 06/30/23 10:02 Height 5 ft 7 in Weight 248 lb 0.321 oz BMI 38.8 BP 142/76 H Blood Pressure Location Lt brachial Position Sitting Pulse 100 Pulse Source Doppler Pulse Oximetry (%) 96 Oxygen Delivery Method Room Air Intake Visit Reasons: dyspnea and CPAP Allergies Penicillins Allergy (Severe, Verified 06/30/23 10:06) swelling adhesive tape [ADHESIVE TAPE] Allergy (Intermediate, Verified 06/30/23 10:06) RASH amoxicillin [AMOXICILLIN] Allergy (Intermediate, Verified 06/30/23 10:06) RASH,SWELLING ibuprofen [From Motrin] Allergy (Intermediate, Verified 06/30/23 10:06) Hypertension latex Allergy (Intermediate, Verified 06/30/23 10:06) Rash HPI dyspnea and CPAP HPI Details 57-year-old lady, nonsmoker but with exp osure to secondhand smoke, with underlying history of elevated right-sided diaphragm, now followed for asthma, MARY, and dyspnea on exertion. She continues to use Advair 230 and albuterol MDI with reasonable control of her asthma symptoms. Until recently her orthopnea and lower extremity edema was controlled on her torsemide, however over the last several weeks she started getting more orthopnea and lower extremity edema, also with worsening dyspnea on exertion. After the last office visit she has been switched to Bumex, however still with poor response and with persistent significant lower extremity edema and dyspnea on minimal exertion up to the pointed patient has been using CPAP during the daytime to help her dyspnea. Patient has been transferred to emergency room for evaluation for IV diuresis. [facility] Medical History Gastroparesis Left knee pain Hypothyroidism Bilateral shoulder pain Hyperlipidemia LDL goal <70 Degeneration, intervertebral disc, cervical Spondylosis of cervical spine at multiple levels without myelopathy Sleep apnea Renal calculi Incontinence Goiter Disc degeneration, lumbar Spondylosis of lumbar region without myelopathy or radiculopathy Arthropathy of facet joint Lumbar pain Insomnia LUDY (generalized anxiety disorder) Moderately severe recurrent major depression Multiple air fluid levels of small intestine determined by X-ray Diabetes mellitus Chronic pain syndrome Morbid (severe) obesity due to excess calories Fibromyalgia Small bowel motility disorder Chronic idiopathic constipation Asthma Surgical History Delivery by section History of cholecystectomy History of esophagogastroduodenoscopy (EGD) History of hernia surgery History of hysterectomy History of knee replacement procedure of right knee Hx of colonoscopy Family History Father Past heart attack Anxiety Mother MOF (multiple organ failure) Brother HIV (human immunodeficiency virus infection) Sister Ovarian cancer Lupus Bone cancer Uterine cancer Tumor Daughter Guillain-[place] Sister Lupus History of open heart surgery Family/Other Depression FH: mental illness Maternal Aunt Breast cancer Maternal Aunt Tumor Social History Household Members: None Household Members Other:: Housing: Apartment Are you a primary critical care cns to a significant other at home: No 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) Alcohol intake: never Patient Tobacco Use Status: Never used Tobacco e-Cigarette/Vaping Use: Never Used Second Hand Smoke Exposure: Yes Advance Directives Date on File: 12/08/21 service: No Current occupational status: unemployed and disabled Cognitive needs: No Hearing needs: No Vision needs: No Review of Systems Const Denies daytime sleepiness, Denies excessive sweating, Denies fatigue, Denies fever(s), Denies lethargy, Denies malaise, Denies night sweats, Denies snoring and Denies weight loss Eyes Denies blurry vision and Denies itchy eyes ENT Denies nasal congestion, Denies post nasal drip, Denies sinus pain, Denies sinus pressure and Denies other ( Thrush) Card Denies chest pain, Reports pedal edema, Denies dyspnea, Reports dyspnea on exertion, Reports orthopnea and Reports paroxysmal nocturnal dyspnea Resp Denies cough, Denies hemoptysis, Denies excessive phlegm production, Denies dyspnea, Reports dyspnea on exertion, Denies snoring and Denies wheezing GI Denies abdominal pain and Denies heartburn Musc Denies myalgias, Denies arthralgias and Denies joint swelling Skin/Breast Denies rash Neuro Denies memory loss and Denies seizure-like activity Psych Denies abnormal sleep pattern, Denies anxiety and Denies memory loss Endo Denies excessive sweating, Denies fatigue and Denies heat intolerance Dalton/Lymph Denies easy bruising Aller/Immun Denies itchy eyes, Denies seasonal rhinorrhea and Denies wheezing Physical Exam Vital Signs: Last Vital Signs Pulse 100 06/30/23 10:02 BP 142/76 H 06/30/23 10:02 Pulse Ox 96 06/30/23 10:02 Oxygen Delivery Method Room Air 06/30/23 10:02 BMI result Body Mass Index 38.8 Const General: no acute distress and alert Nutritional Appearance: not obese Orientation/consciousness: Other orientation findings ( oriented) HEENT Head: Yes atraumatic Eyes General: appearance normal, both eyes and all related structures Sclerae: sclerae normal EOM: EOMs intact bilaterally Neck Neck: Yes supple Lymphatic: no lymphadenopathy noted Resp Effort & Inspection: normal respiratory effort and no use of accessory muscles Auscultation: crackles (Bibasilar) Cardio Rate: regular rate Rhythm: regular rhythm Heart sounds: no gallops, no murmurs and no rubs Skin General skin exam: other ( warm) Extrem General: No clubbing, No cyanosis and Yes edema (2+ bilateral) Assessment & Plan Assessment & Plan (1) Asthma: Code(s): J45.909 - Unspecified asthma, uncomplicated Qualifiers: Asthma severity: moderate Asthma persistence: persistent Asthma complication type: uncomplicated Qualified Code(s): J45.40 - Moderate persistent asthma, uncomplicated Plan: Baseline well controlled on current regimen of Advair, Incruse, and albuterol MDI. Continue current regimen. (2) Pulmonary edema: Code(s): J81.1 - Chronic pulmonary edema Plan: Worsen pulmonary edema despite increasing diuretic to Bumex 2 mg twice a day with metolazone. Patient referred to emergency room for evaluation for IV diuresis. Coding Level of Care Code Est Pt Level 4 (30082) Diagnoses Moderate persistent asthma without complication J45.40 Asthma severity: moderate Asthma persistence: persistent Asthma complication type: uncomplicated Pulmonary edema J81.1
== END 2023-06-30 10:26 | disposition home or self-care (01) ==
PROVIDERS: PCP Internal Medicine; Visit Provider Internal Medicine Pulmonary Disease
DX: J45.40 Moderate persistent asthma, uncomplicated (principal); J81.1 Chronic pulmonary edema
CPT/HCPCS: 99214

== ENCOUNTER → 2023-06-30 09:56 | Outpatient (BNVA) | payer OTHER, SELFPAY | PROVIDERS: PCP Internal Medicine; Visit Provider Internal Medicine Pulmonary Disease | DX: J45.40 Moderate persistent asthma, uncomplicated (principal); J81.1 Chronic pulmonary edema | CPT/HCPCS: 99212 ==

== ENCOUNTER 2023-06-30 10:33 | Inpatient (IN) | payer OTHER, SELFPAY ==
--- NOTE | ~2023-06-30 | XR_ITS ---
EXAMINATION: XR CHEST CLINICAL INFORMATION: Shortness of breath COMPARISON: 01/06/2023 TECHNIQUE: Frontal view of the chest was obtained. FINDINGS: There is stable elevation of the right hemidiaphragm with atelectasis lungs are clear and cardiomediastinal silhouette is normal XR/XR chest 1V IMPRESSION: Right lower lobe atelectasis
[2023-06-30 10:36] VITALS: BP 145/77; PULSE 70; RESP 16; TEMP 36.6; O2SAT 99; BMI 38.8
--- NOTE | 2023-06-30 13:30 | ECG_ITS ---
Test Reason : Chest Pain Blood Pressure : / mmHG Vent. Rate : 074 BPM Atrial Rate : 074 BPM P-R Int : 148 ms QRS Dur : 078 ms QT Int : 422 ms P-R-T Axes : -13 009 004 degrees QTc Int : 468 ms Normal sinus rhythm Nonspecific T wave abnormality Prolonged QT Abnormal ECG When compared with ECG of 28-APR-2023 21:52, T wave inversion more evident in Anterior leads Referred By: Kyle Steward Electronically Signed By:CARLOS ARCEO
--- NOTE | 2023-06-30 13:46 | ED_ITS ---
HPI - General Adult General Chief complaint: General Medical Stated complaint: SOB Retaining Fluid Time Seen by Provider: 06/30/23 13:30 Source: patient Mode of arrival: ambulatory Limitations: no limitations History of Present Illness HPI narrative: 58-year-old female with history asthma for of with Dr. Hernandez patient was sent from his office today for further evaluation of CHF. Patient has been on Lasix and switch to Bumex at with poor response patient still gaining weight and having exertional dyspnea and PND at night. Patient also is complaining of generalized body ache. No chest pain, no fever, chills. Patient is compliant with her medication. Related Data Home Medications Medication Instructions Recorded Confirmed vaporizers #1 ea 10/10/20 06/02/23 clonidine HCl 0.1 mg tablet 0.1 mg PO TID PRN Agitation or 09/19/21 06/02/23 Anxiety mirtazapine 30 mg tablet 30 mg PO BEDTIME 06/23/22 06/02/23 insulin syringe-needle U-100 0.3 #10 ea 10/20/22 06/02/23 mL 31 gauge x 5/16 (BD Insulin Syringe Ultra-Fine) Previous Rx's Medication Instructions Recorded lancets 28 gauge (FreeStyle #100 ea 05/23/21 Lancets) diabetic supplies, miscellan. #1 ea 12/03/21 flash glucose sensor (FreeStyle #1 ea 12/03/21 Julianne 2 Sensor kit) heating pads #1 ea 01/21/22 Gel mattress overlay #1 ea 01/28/22 miscellaneous medical supply #1 ea 03/10/22 pen needle, diabetic 31 gauge x #100 ea 04/10/22 3/16 (BD Ultra-Fine Mini Pen Needle) insulin syr/ndl U100 half desean 0.3 #100 ea 07/16/22 mL 31 gauge x 5/16 (BD Insulin Syringe Ultra-Fine (half unit)) hydrocortisone 1 % topical cream 1 appl topical TID PRN skin 07/22/22 (Anti-Itch (hydrocortisone)) irritation 30 days #28.4 grams lorazepam 1 mg tablet (Ativan) 1 mg PO BID PRN anxiety #14 tabs 08/03/22 blood pressure test kit-wrist #1 ea 08/13/22 hydrocortisone 2.5 % topical cream 1 appl NV BID PRN hemorrhoids #30 08/13/22 with perineal applicator grams (Proctosol HC) cyclobenzaprine 10 mg tablet 10 mg PO TID #90 tabs 08/20/22 duloxetine 60 mg capsule,delayed 90 mg (1.5 x 60 mg) PO DAILY 90 08/24/22 release days #135 caps blood sugar diagnostic (FreeStyle #100 ea 09/01/22 Lite Strips) blood-glucose meter (FreeStyle #1 ea 09/01/22 Lite Meter kit) walker #1 ea 09/01/22 insulin syringe-needle U-100 0.5 #100 ea 10/17/22 mL 31 gauge x 5/16 (BD Insulin Syringe Ultra-Fine) dulaglutide 0.75 mg/0.5 mL 0.75 mg (0.5 mL) subcut QWEEK #2 mL 10/20/22 subcutaneous pen injector [facility]) fluticasone propionate 230 2 puff PO Q12H #12 grams 12/16/22 mcg-salmeterol 21 mcg/actuation HFA inhaler (Respiair HFA) water for irrigation, sterile 1 irrig irrigation DAILY 30 days 01/04/23 #500 mL cane #1 ea 01/07/23 alcohol swabs (Alcohol Prep Pads) 1 pad topical .once a day 90 days 02/18/23 #100 ea amlodipine 10 mg tablet 10 mg PO DAILY #90 tabs 02/22/23 metoprolol tartrate 50 mg tablet 50 mg PO BID 90 days #180 tabs 02/22/23 acetaminophen 650 mg 650 mg PO Q8H PRN arthritis pain 02/23/23 tablet,extended release (Tylenol #90 tabs Arthritis Pain) atorvastatin 10 mg tablet 10 mg PO BEDTIME 90 days #90 tabs 02/23/23 levothyroxine 112 mcg tablet 112 mcg PO DAILY 90 days #90 tabs 02/23/23 metolazone 2.5 mg tablet 2.5 mg PO 3XW #39 tabs 02/23/23 diabetic shoes and inserts #1 ea 03/04/23 methocarbamol 750 mg tablet 750 mg PO QID muscle spasm #20 tabs 03/09/23 dicyclomine 10 mg capsule 10 mg PO BID PRN for cramps #180 03/25/23 caps lidocaine 5 % topical patch 1 patch topical DAILY PRN pain 30 04/28/23 days #30 ea albuterol sulfate 2.5 mg/3 mL 2.5 mg (3 mL) inhalation QID PRN 04/30/23 (0.083 %) solution for nebulization shortness of breath or wheezing #75 mL hydroxyzine HCl 50 mg tablet 50 mg PO BEDTIME #90 tabs 05/03/23 insulin glargine 100 unit/mL 15 unit (0.15 mL) subcut QPM 90 05/10/23 subcutaneous solution (Lantus days #13.5 mL U-100 Insulin) Shower Chair #1 ea 05/15/23 Toilet seat riser #1 ea 05/15/23 albuterol sulfate 90 mcg/actuation 2 puff PO Q6H PRN for wheezing #18 05/15/23 aerosol inhaler (Ventolin HFA) ea insulin lispro 100 unit/mL 5 unit (0.05 mL) subcut TID 90 05/15/23 subcutaneous solution days #13.5 mL meclizine 25 mg tablet 25 mg PO TID PRN dizziness 90 days 05/15/23 #270 tabs metformin 500 mg tablet 500 mg PO BID #180 tabs 05/15/23 gabapentin 800 mg tablet 800 mg PO TID 30 days #90 tabs 05/16/23 bumetanide 2 mg tablet 2 mg PO BID 30 days #60 tabs 06/10/23 metoclopramide HCl 10 mg tablet 10 mg PO QIDACHS #120 tabs 06/17/23 (Reglan) pantoprazole 40 mg tablet,delayed 40 mg PO BID 30 days #60 tabs 06/17/23 release (Protonix) sennosides 8.6 mg capsule (senna) 17.2 mg (2 x 8.6 mg) PO BEDTIME 06/17/23 constipation 90 days #180 tabs sumatriptan succinate 50 mg tablet 50 mg PO Q2-4H PRN migraine 06/17/23 (Imitrex) headache #10 tabs umeclidinium 62.5 mcg/actuation 1 inh inhalation DAILY 30 days #1 06/17/23 blister powder for inhalation ea (Incruse Ellipta) rizatriptan 5 mg tablet See Rx Instructions PO .COMPLEX 30 06/29/23 days #9 tabs Allergies Allergy/AdvReac Type Severity Reaction Status Date / Time Penicillins Allergy Severe swelling Verified 06/30/23 10:36 adhesive tape [ADHESIVE TAPE] Allergy Intermediate RASH Verified 06/30/23 10:36 amoxicillin [AMOXICILLIN] Allergy Intermediate RASH,SWELLI Verified 06/30/23 10:36 NG ibuprofen [From Motrin] Allergy Intermediate Hypertensio Verified 06/30/23 10:36 n latex Allergy Intermediate Rash Verified 06/30/23 10:36 Review of Systems 2 Review of Systems: all other systems are reviewed and are negative Constitutional: Reports as per HPI and Reports no additional constitutional complaints Eyes: Reports as per HPI and Reports no additional eye complaints Reports system reviewed and no additional complaints, except as documented Cardiovascular: Reports as per HPI and Reports no additional cardiovascular complaints Respiratory: Reports as per HPI and Reports no additional respiratory complaints Gastrointestinal: Reports as per HPI and Reports no additional gastrointestinal complaints Genitourinary: Reports no additional female genitourinary complaints Musculoskeletal: Reports no additional musculoskeletal complaints Skin/Breast: Reports system reviewed and no additional complaints, except as docu Psychiatric: Reports no additional psychiatric complaints Endocrine: Reports no additional endocrine complaints Hematologic/Lymphatic: Reports no additional hematologic/lymphatic complaints Allergic/Immunologic: Reports no additional allergic/immunologic complaints Reports system reviewed and no additional complaints, except as documented and Reports Abnormal speech present [facility] Past Medical History Medical History Gastroparesis Left knee pain Hypothyroidism Bilateral shoulder pain Hyperlipidemia LDL goal <70 Degeneration, intervertebral disc, cervical Spondylosis of cervical spine at multiple levels without myelopathy Sleep apnea Renal calculi Incontinence Goiter Disc degeneration, lumbar Spondylosis of lumbar region without myelopathy or radiculopathy Arthropathy of facet joint Lumbar pain Insomnia LUDY (generalized anxiety disorder) Moderately severe recurrent major depression Multiple air fluid levels of small intestine determined by X-ray Diabetes mellitus Chronic pain syndrome Morbid (severe) obesity due to excess calories Fibromyalgia Small bowel motility disorder Chronic idiopathic constipation Asthma Surgical History History of knee replacement procedure of right knee History of hernia surgery Hx of colonoscopy History of esophagogastroduodenoscopy (EGD) History of cholecystectomy Delivery by section History of hysterectomy Family History Family History Father Past heart attack Anxiety Mother MOF (multiple organ failure) Brother HIV (human immunodeficiency virus infection) Sister Ovarian cancer Lupus Bone cancer Uterine cancer Tumor Daughter Guillain-[place] Sister Lupus History of open heart surgery Family/Other Depression FH: mental illness Maternal Aunt Breast cancer Maternal Aunt Tumor Social History Social History Household Members: None Household Members Other:: Housing: Apartment Are you a primary insurance healthcare representative to a significant other at home: No Do you 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) Alcohol intake: never Patient Tobacco Use Status: Never used Tobacco e-Cigarette/Vaping Use: Never Used Second Hand Smoke Exposure: Yes Advance Directives: Yes Advance Directives on File: Yes Advance Directives Date on File: 12/08/21 service: No Current occupational status: unemployed and disabled Cognitive needs: No Hearing needs: No Vision needs: No Physical Exam ED Vital Signs: Vital Signs - 24 hr 06/30/23 10:36 06/30/23 14:34 Temperature 98 F 98.2 F Pulse Rate 70 80 Respiratory Rate 16 20 Blood Pressure 145/77 H 143/82 H Pulse Oximetry 99 96 Oxygen Delivery Method Room Air Room Air BMI result Body Mass Index 38.8 Vital signs have been reviewed and appear to be correct. Blood pressure elevated. Heart rate normal. Respiratory rate normal. Temperature normal. Oxygen saturation normal. Appearance: Alert. Oriented X3. No acute distress. Head: Normal external exam. Normocephalic. Atraumatic. No Hanson signs noted. No raccoon eyes noted Eyes: PERRLA. EOMI. Conjunctiva and sclera normal. Eyelids normal. ENT: TM's Normal. Pharynx normal. Uvula midline. Moist mucous membranes. No trismus noted. No drooling noted. No muffled voice noted. Neck: Normal inspection. Neck supple. FROM. No adenopathy. Thyroid Normal. No meningeal signs. No neck mass noted. CVS: Normal heart rate and rhythm. Heart sound normal. No murmurs noted. Pulses normal throughout. Respiratory: No respiratory distress. Painless inspiration. Breath sounds normal. bilateral basilar rales. Chest nontender. No accessory muscle usage noted or decreased air movement noted. Abdomen: Soft and nontender. Bowel sounds normal in all 4 quadrants. No distention noted. No organomegaly noted. No visible injury noted. Back: No CVA tenderness. Full range of motion noted. Skin: Skin warm and dry. Normal skin color. Normal skin turgor. No rashes/lesions/lacerations noted. Extremities: +2 bilateral lower extremity edema. Extremities exhibit normal range of motion. Extremities nontender. Neuro: Oriented X 3. Cranial nerve exam: II-XII are grossly intact No motor deficit. No sensory deficit. Reflexes normal. Course Course Course Narrative: A 58-year-old female history of asthma, CHF taking Bumex at home sent from Dr. Hernandez's office for evaluation of gaining weight, PND, SOB. Will admit for further diuresis. Medical Decision Making Differential Diagnosis Differential Diagnoses: The differential diagnosis associated with the presentation includes ( CHF, ACS, pneumonia, pneumothorax, pleural effusion severe electrolyte abnormality, severe anemia.) Admission/Observation Consideration of admission/observation: Escalation of care including admission/observation considered Consult Healthcare Provider Management of the patient was discussed with: Hospitalist (Dr. Clark) Lab Data MDM Lab Attestation statement: I reviewed the patient's lab results. 06/30/23 14:24 06/30/23 14:24 Labs: Lab Results 06/30/23 Range/Units 14:24 WBC 12.3 H (4.8-10.8) X10*3/uL RBC 5.17 (4.20-5.50) X10*6/uL Hgb 11.3 L (12.0-16.0) g/dl Hct 38.5 (37.0-47.0) % MCV 74.5 L (80.0-98.0) fL MCH 21.9 L (27.0-33.0) pg MCHC 29.4 L (31.0-35.0) g/dl RDW 18.8 H (11.0-16.0) % Plt Count 304 (160-400) X10*3/uL MPV 10.9 (9.4-12.3) fL Immature Gran % (Auto) 0.6 H (0.0-0.4) % Neut % (Auto) 70.9 (45-73) % Lymph % (Auto) 19.3 L (20-40) % Rincon % (Auto) 4.9 (2-11) % Eos % (Auto) 4.0 (0-4) % Baso % (Auto) 0.3 (0-2) % Lymph # (Auto) 2.4 (1.2-4.9) X10*3/uL R[place]con # (Auto) 0.6 (0.1-1.2) X10*3/uL Eos # (Auto) 0.5 H (0.0-0.4) X10*3/uL Baso # (Auto) 0.0 (0.0-0.2) X10*3/uL Abs Immat Gran (auto) 0.08 H (0.00-0.03) X10*3/uL Absolute Neuts (auto) 8.7 H (2.0-8.3) x10*3/uL Absolute Nucleated RBC 0.000 (0.0-0.012) X10*3/uL Nucleated RBC % (auto) 0.0 (0.0-0.2) /100WBC Sodium 143 (135-145) mmol/L Potassium 4.1 (3.3-5.1) mmol/L Chloride 108 (96-108) mmol/L Carbon Dioxide 26 (22-29) mmol/L Anion Gap 13 (12-20) BUN 16 (9-16) mg/dL Creatinine 0.78 (0.5-1.4) mg/dL Estim Creat Clear Calc 102.9 Estimated GFR > 60 Random Glucose 99 (60-115) mg/dL Calcium 9.7 D (8.4-10.2) mg/dL Total Bilirubin 0.5 (0.0-1.0) mg/dL Direct Bilirubin 0.2 (0.0-0.5) mg/dL AST 16 (5-31) U/L ALT 18 (0-31) U/L Alkaline Phosphatase 98 (39-117) U/L Troponin I High Sens < 2.7 (<3.5-17.0) ng/L B-Natriuretic Peptide < 10 (<100) pg/mL Total Protein 7.9 (6.5-8.0) g/dL Albumin 3.8 (3.5-5.0) g/dL Lipase 22 (8-78) U/L Urine Color Dark Yellow Urine Appearance Clear Urine pH 5.5 (5.0-9.0) Ur Specific Lipan >= 1.030 H (1.005-1.025) Urine Protein Trace (Neg-Trace) mg/dL Urine Glucose (UA) Negative (Negative) mg/dL Urine Ketones Negative (Negative) mg/dL Urine Blood Negative (Negative) Urine Nitrite Negative (Negative) Ur Leukocyte Esterase Trace H (Negative) Urine RBC 0-2 (0-2) /HPF Urine WBC 0-5 (0-5) /HPF Ur Squamous Epith Cells 3-5 (0-2) /HPF Urine Bacteria Trace (None Seen) Hyaline Casts 0-2 (0-2) /LPF Independent Interpretation I performed an independent interpretation of an: Plain X-Ray Radiology Impression Discussion of test interpretation with radiology: I have reviewed the radiologist's reading. Discharge Plan Discharge Clinical Impression: Edema, Exertional dyspnea, CHF (congestive heart failure) Patient Disposition: Admitted As Inpatient
[2023-06-30 14:29] LABS: MANUAL DIFF FLAG NO
[2023-06-30 14:32] LABS: Appearance Urine Clear; Color Urine Dark Yellow; Glucose Urine UA Negative (Negative); Leukocyte Esterase Urine Trace (Negative); Nitrite Urine Negative (Negative); PH 5.5 (5.0-9.0); Specific Gravity - Urine >= 1.030 (1.005-1.025); UMIC TRIGGER UACC YES; Urine Blood Negative (Negative); Urine Ketones Negative (Negative); Urine Protein Trace mg/dL (Neg-Trace)
[2023-06-30 14:34] VITALS: BP 143/82; PULSE 80; RESP 20; TEMP 36.8; O2SAT 96
[2023-06-30 14:34] LABS: Bacteria Urine Trace (None Seen); Basophils Percent Auto 0.3 % (0-2); Eosinophils Absolute Auto 0.5 X10*3/uL (0.0-0.4); Hematocrit 38.5 % (37.0-47.0); Hemoglobin 11.3 g/dl (12.0-16.0); Hyaline Casts Urine 0-2 /LPF (0-2); Imm Gran Abs Auto 0.08 X10*3/uL (0.00-0.03); Imm Gran Pct Auto 0.6 % (0.0-0.4); Lymphocytes Absolute Auto 2.4 X10*3/uL (1.2-4.9); Lymphocytes Percent Auto 19.3 % (20-40); Mean Corpuscular HGB Conc 29.4 g/dl (31.0-35.0); Mean Corpuscular Hemoglobin 21.9 pg (27.0-33.0); Mean Corpuscular Volume 74.5 fL (80.0-98.0); Mean Platelet Volume 10.9 fL (9.4-12.3); Monocytes Absolute Auto 0.6 X10*3/uL (0.1-1.2); Monocytes Percent Auto 4.9 % (2-11); Neutrophils Absolute Auto 8.7 x10*3/uL (2.0-8.3); Neutrophils Percent Auto 70.9 % (45-73); Platelet Count 304 X10*3/uL (160-400); RBC Urine 0-2 /HPF (0-2); Red Blood Count 5.17 X10*6/uL (4.20-5.50); Red Cell Distribution Width 18.8 % (11.0-16.0); WBC Urine 0-5 /HPF (0-5); White Blood Count 12.3 X10*3/uL (4.8-10.8)
[2023-06-30 14:51] LABS: Alanine Aminotransferase 18 U/L (0-31); Albumin Level 3.8 g/dL (3.5-5.0); Alkaline Phosphatase 98 U/L (39-117); Anion Gap 13 (12-20); Aspartate Amino Transferase 16 U/L (5-31); Bilirubin Direct 0.2 mg/dL (0.0-0.5); Bilirubin Total 0.5 mg/dL (0.0-1.0); Blood Urea Nitrogen 16 mg/dL (9-16); Calcium 9.7 mg/dL (8.4-10.2); Carbon Dioxide 26 mmol/L (22-29); Chloride 108 mmol/L (96-108); Creatinine Clr Calc Pharmacy 102.9; Estimated Glomerular Filt Rate > 60; Glucose Random 99 mg/dL (60-115); Lipase 22 U/L (8-78); Potassium 4.1 mmol/L (3.3-5.1); Sodium 143 mmol/L (135-145); Total Protein 7.9 g/dL (6.5-8.0)
[2023-06-30 14:52] LABS: B Type Natriuretic Peptide < 10 pg/mL (<100)
[2023-06-30 14:54] LABS: Troponin-I High Sensitivity < 2.7 ng/L (<3.5-17.0)
[2023-06-30 15:08] LABS: Influenza A PCR NEGATIVE (Negative); Influenza B PCR NEGATIVE (Negative); Resp Syncy Virus RNA Qual PCR NEGATIVE (Negative); SARS COV2 PCR INHOUSE NEGATIVE (Negative)
--- NOTE | 2023-06-30 15:19 | P.HPHOSP_ITS ---
History of Present Illness Date of Service: 06/30/23 Attending physician on admission: Vinod [facility] Chief Complaint: Increasing SOB, edema Pt is a 58-year-old female with a PMH significant for?HFpEF, HLD, insulin- dependent diabetes type 2, hypothyroidism, asthma, MARY, chronic pain, small- bowel motility disorder, anxiety, and depression who presents to the ED from her pulmonology office visit for evaluation of worsening SOB and KEITH. Patient was seen by Dr. Hernandez in pulmonology?earlier in the day. Was recently switched from torsemide to Bumex for worsening SOB and lower leg edema, however continues to have increased lower leg edema, dyspnea on minimal exertion, and orthopnea despite medication change. She has also experienced significant weight gain during the past month despite not eating much, so much so that she states her clothes now seem tight . Patient also has multiple other complaints: Has developed a resting tremor of right upper and lower extremities for the past month. States she has not seen anyone or had this evaluated yet. Also complains of central belly pain and right sided abdominal swelling for which she is scheduled to get an outpatient ultrasound on Wednesday. Also complains of 5 days of severe headache that is different from her normal migraines. PCP States headache is centered around her right eye and radiates to the back of her head where she also experiences numbness. Some nausea, no vomiting. Denies chest pain or palpitations. No change in ambulation. In the ED patient was afebrile but slightly hypertensive up to 145/77, satting at 96% on RA. Labs were significant for chronically elevated WBC at 12.3, otherwise largely unremarkable. Electrolytes WNL. Renal function, hepatic function WNL. Troponin negative. BNP negative. CXR showed right lower lobe atelectasis. EKG demonstrated normal sinus rhythm with nonspecific T-wave abnormality with QTc 468. Last echocardiogram on 06/26/2022 showed normal LV systolic function with EF 65% with mild to moderately decreased right ventricular systolic function. Pt was treated with Lasix IV 40mg. Pt will be admitted to the hospital for acute HFpEF exacerbation. Review of Systems 2 Review of Systems: Increased SOB Increased weight gain Increased lower leg edema Orthopnea Right sided headache Right upper and lower extremity resting tremor Central abdominal pain PMFSH Medical History Gastroparesis Left knee pain Hypothyroidism Bilateral shoulder pain Hyperlipidemia LDL goal <70 Degeneration, intervertebral disc, cervical Spondylosis of cervical spine at multiple levels without myelopathy Sleep apnea Renal calculi Incontinence Goiter Disc degeneration, lumbar Spondylosis of lumbar region without myelopathy or radiculopathy Arthropathy of facet joint Lumbar pain Insomnia LUDY (generalized anxiety disorder) Moderately severe recurrent major depression Multiple air fluid levels of small intestine determined by X-ray Diabetes mellitus Chronic pain syndrome Morbid (severe) obesity due to excess calories Fibromyalgia Small bowel motility disorder Chronic idiopathic constipation Asthma Family History Father Past heart attack Anxiety Mother MOF (multiple organ failure) Brother HIV (human immunodeficiency virus infection) Sister Ovarian cancer Lupus Bone cancer Uterine cancer Tumor Daughter Guillain-[place] Sister Lupus History of open heart surgery Family/Other Depression FH: mental illness Maternal Aunt Breast cancer Maternal Aunt Tumor Surgical History History of knee replacement procedure of right knee History of hernia surgery Hx of colonoscopy History of esophagogastroduodenoscopy (EGD) History of cholecystectomy Delivery by section History of hysterectomy Social History Household Members: None Household Members Other:: Housing: Apartment Are you a primary clinical care manager to a significant other at home: No Do you presently have visiting nurse or other home services: Yes ([employer]) Alcohol intake: never Patient Tobacco Use Status: Never used Tobacco Smoked in Last 30 Days: No e-Cigarette/Vaping Use: Never Used Second Hand Smoke Exposure: Yes Use of substances other than those prescribed or required for medical reasons: No Currently Displaying Signs/Symptoms of Drug Intoxication Withdrawal: No Have you been hit, kicked, punched, or otherwise hurt by someone within the past year? If so, by whom?: No Do you feel safe in your current relationship?: Yes Is there a partner from a previous relationship who is making you feel unsafe now?: No Are you made to feel afraid or neglected: No Advance Directives: Yes Advance Directives on File: Yes Advance Directives Date on File: 12/08/21 Do you have thoughts of harming others: None Do you have a plan to hurt others: No Plan Recently lost weight without trying: No Nutrition Risks: No Nutritional Risk Patient : No : No Poor oral hygiene: No service: No Current occupational status: unemployed and disabled Cognitive needs: No Hearing needs: No Vision needs: No Meds Allergies Allergy/AdvReac Type Severity Reaction Status Date / Time Penicillins Allergy Severe swelling Verified 06/30/23 10:36 adhesive tape [ADHESIVE TAPE] Allergy Intermediate RASH Verified 06/30/23 10:36 amoxicillin [AMOXICILLIN] Allergy Intermediate RASH,SWELLI Verified 06/30/23 10:36 NG ibuprofen [From Motrin] Allergy Intermediate Hypertensio Verified 06/30/23 10:36 n latex Allergy Intermediate Rash Verified 06/30/23 10:36 Home Medications Medication Instructions Recorded Confirmed Last Taken Type vaporizers #1 ea 10/10/20 06/02/23 Unknown History clonidine HCl 0.1 mg tablet 0.1 mg PO TID PRN Agitation or 09/19/21 06/30/23 01/25/22 10:00 History Anxiety mirtazapine 30 mg tablet 30 mg PO BEDTIME 06/23/22 06/30/23 Unknown History insulin syringe-needle U-100 0.3 #10 ea 10/20/22 06/02/23 Unknown History mL 31 gauge x 5/16 (BD Insulin Syringe Ultra-Fine) dulaglutide 0.75 mg/0.5 mL 0.75 mg subcut CLAYTON 06/30/23 06/30/23 Unknown History subcutaneous pen injector (Trulicity) insulin lispro 100 unit/mL 7 unit subcut TID 06/30/23 06/30/23 Unknown History subcutaneous solution lorazepam 1 mg tablet (Ativan) 1 mg PO BID anxiety 06/30/23 06/30/23 Unknown History methocarbamol 750 mg tablet 750 mg PO QID PRN muscle spasm 06/30/23 06/30/23 Unknown History metolazone 2.5 mg tablet 2.5 mg PO MOWEFR 06/30/23 06/30/23 Unknown History Physical Exam 2 Vital Signs and Narrative: Vital Signs: Last Vital Signs Temp 98.2 F 06/30/23 14:34 Pulse 80 06/30/23 14:34 Resp 20 06/30/23 14:34 BP 143/82 H 06/30/23 14:34 Pulse Ox 96 06/30/23 14:34 O2 Del Method Room Air 06/30/23 14:34 BMI result Body Mass Index 38.8 Constitutional: Alert, in no acute distress. Mental Status: Oriented to person, place and time. Eyes: Pupils are equal, round, and reactive to light. Ear, Nose, and Throat: Oropharynx clear, mucous membranes moist. Ears and nose without deformities. Trachea midline. Respiratory: Mild diffuse wheezing. Cardiovascular: S1, S2 regular. No murmurs, rubs, or gallops. No JVD. Gastrointestinal: Abdomen soft, non-distended, obese, with central and right- sided tenderness. Normal bowel sounds. Neurologic: Cranial nerves II-XII are grossly intact bilaterally. Moves all extremities spontaneously. 5/5 strength of upper and lower extrmeties bilaterally. Decreased sensation to light touch on right side of face and upper and lower extremities. Resting tremor or right upper and lower extremities noted. Skin: No rashes or lesions noted. Musculoskeletal: No cyanosis or clubbing. Extremities: 1+ bilateral pitting lower leg edema Psychiatric: Normal mood and affect. Results Labs 07/01/23 06:53 07/01/23 06:53 Labs: Laboratory Results - last 24 hr 06/30/23 14:24 MCV 74.5 L MCH 21.9 L MCHC 29.4 L RDW 18.8 H Plt Count 304 MPV 10.9 Immature Gran % (Auto) 0.6 H Neut % (Auto) 70.9 Lymph % (Auto) 19.3 L Mcmullen % (Auto) 4.9 Eos % (Auto) 4.0 Baso % (Auto) 0.3 Lymph # (Auto) 2.4 Mcmullen # (Auto) 0.6 Eos # (Auto) 0.5 H Baso # (Auto) 0.0 Abs Immat Gran (auto) 0.08 H Absolute Neuts (auto) 8.7 H Absolute Nucleated RBC 0.000 Nucleated RBC % (auto) 0.0 Anion Gap 13 Estim Creat Clear Calc 102.9 Estimated GFR > 60 Random Glucose 99 Calcium 9.7 D Total Bilirubin 0.5 Direct Bilirubin 0.2 AST 16 ALT 18 Alkaline Phosphatase 98 B-Natriuretic Peptide < 10 Total Protein 7.9 Albumin 3.8 Lipase 22 Urine Color Dark Yellow Urine Appearance Clear Urine pH 5.5 Ur Specific [place] >= 1.030 H Urine Protein Trace Urine Glucose (UA) Negative Urine Ketones Negative Urine Blood Negative Urine Nitrite Negative Ur Leukocyte Esterase Trace H Urine RBC 0-2 Urine WBC 0-5 Ur Squamous Epith Cells 3-5 Urine Bacteria Trace Hyaline Casts 0-2 Influenza Type A (PCR) NEGATIVE Influenza Type B (PCR) NEGATIVE RSV RNA Qual (PCR) NEGATIVE SARS-CoV-2 RNA (RT-PCR) NEGATIVE Assessment and Plan (1) Acute CHF: Qualifiers: Heart failure type: diastolic Qualified Code(s): I50.31 - Acute diastolic (congestive) heart failure Status: Acute Plan Pt is a 58-year-old female with a PMH significant for?HFpEF, HLD, insulin- dependent diabetes type 2, hypothyroidism, asthma, MAYR, chronic pain, small- bowel motility disorder, anxiety, and depression who presents to the ED from her pulmonology office visit for evaluation of worsening SOB and KEITH. Pt will be admitted to the hospital for acute HFpEF exacerbation. Acute HFpEF exacerbation Increasing SOB, bilateral pitting edema, weight gain, orthopnea despite changing p.o. diuretics from torsemide to Bumex Furosemide 40 mg IV b.i.d. Follow lytes, MG, I/O Daily weights, low-salt diet Follow on telemetry Right-sided resting tremor Pt with resting tremor of right upper and lower extremities for the past month Has not seen anyone yet for evaluation Physical examination reveals diminished sensation to light touch on right side of face, arms, and legs, preserved strength Neurology consult Migraine Pt with right-sided migraine for past 5 days, says different from previous since also invoves eye Recently switched from sumatriptan to rizatriptan Will give Fioricet Leukocytosis Slight leukocytosis of 12.3 Chronically elevated, likely secondary to steroid use Insulin-dependent diabetes type 2 Hold home meds SSI, Lantus Diabetic diet Hypothyroidism Continue levothyroxine Anxiety/depression Continue home meds Obesity class II Encourage weight loss Full Code Attending:?Dr. Scanlon DVT Prophylaxis: Lovenox Pt will require a hospitalization of at least two nights for treatment of?acute HFpEF exacerbation with IV diuetics and close monitoring. Time Spent With Patient Time: Total time managing care of this patient today ____ minutes. Quality Stroke Does the patient have a stroke diagnosis?: No VTE Prior VTE?: No VTE Risk Level:: Medical - moderate - high VTE Device Contraindication: Treatment Not Indicated VTE Drug Contraindication: N/A - Med Ordered
--- NOTE | 2023-06-30 15:45 | PHA.MEDREC ---
Pharmacy Consult ? Medication Reconciliation Pharmacy has completed the medication reconciliation. Patient confirmed medications. Reports the 2 inhalers she use in Albuterol and Incruse. Reports she takes insulin lispro 7 units with meals. Patient unsure about Lantus dose. I told her the prescriptions states 15 units, she said they was right. Jazmine Polanco, PharmD
[2023-06-30] MEDS: Furosemide 40 MG/4 ML VIAL IVPUSH (16:12)
[2023-06-30] MEDS: Enoxaparin Sodium 40 MG/0.4 ML SYRINGE SUBCUT (16:38)
[2023-06-30] MEDS: Butalb/Acetamin/Caff 50/325/40 TABLET 1 TAB PO (16:39)
--- NOTE | 2023-06-30 17:33 | PC.NURSE ---
report to janie on C
[2023-06-30 17:58] VITALS: BP 144/72; PULSE 87; RESP 16; O2SAT 97
[2023-06-30 18:21] VITALS: BP 136/68; PULSE 101; RESP 20; TEMP 36.1; O2SAT 96
[2023-06-30 19:03] VITALS: BP 173/71; PULSE 100; RESP 20; TEMP 36.1; O2SAT 95
[2023-06-30] MEDS: Metoprolol Tartrate 50 MG TABLET PO (19:49)
[2023-06-30] MEDS: Gabapentin 400 MG CAPSULE 800 MG PO (19:50)
[2023-06-30] MEDS: LORazepam 1 MG TABLET PO (19:50)
[2023-06-30] MEDS: hydrOXYzine HCL 50 MG TABLET PO (19:50)
[2023-06-30] MEDS: Atorvastatin Calcium 10 MG TABLET PO (19:50)
[2023-06-30] MEDS: Omeprazole 20 MG CAPSULE.DR PO (19:51)
[2023-06-30] MEDS: methocarbamoL 750 MG TABLET PO (19:51)
[2023-06-30 19:55] LABS: Glucose, Whole Blood 140 mg/dL (60-115)
[2023-06-30] MEDS: metOLazone 2.5 MG TABLET PO (20:21)
[2023-06-30] MEDS: Mirtazapine 30 MG TABLET PO (20:21)
[2023-06-30] MEDS: Insulin Glargine,Hum.rec.anlog 100 UNIT/ML 10 ML VIAL 10 UNIT SUBCUT (20:22)
[2023-06-30] MEDS: Lidocaine 4 % Patch ADH..PATCH 1 PATCH TRANSDERMA (20:24)
[2023-06-30] MEDS: Albuterol Sulfate (0.083%) 2.5 MG/3 ML VIAL.NEB INHALE (22:01)
[2023-06-30 22:16] VITALS: PULSE 100; O2SAT 95
[2023-06-30] MEDS: oxyCODONE HCl Immed Release 5 MG TABLET PO (22:49)
[2023-06-30] MEDS: Metoclopramide HCl 10 MG TABLET PO (22:49)
[2023-06-30] MEDS: 0.9 % Sodium Chloride Flush 3 ML SYRINGE IVFLUSH (23:20)
[2023-07-01] VITALS (8 sets, daily range): BP systolic 136–185; BP diastolic 61–99; PULSE 87–110; RESP 16–20; TEMP 36–36.9; O2SAT 91–96
[2023-07-01] MEDS: SUMAtriptan succinate 50 MG TABLET PO (02:01)
[2023-07-01] MEDS: cloNIDine HCL 0.1 MG TABLET PO (02:14)
[2023-07-01] MEDS: methocarbamoL 750 MG TABLET PO (05:31)
[2023-07-01] MEDS: Levothyroxine Sodium 112 MCG TABLET PO (05:31)
[2023-07-01] MEDS: Omeprazole 20 MG CAPSULE.DR PO ×2 (05:31→16:43)
--- NOTE | 2023-07-01 07:00 | CA_ITS ---
Transthoracic Echocardiogram Patient (Last, First, Middle): Bonnie Hickman, Gender: Female Date of : 1965 Age: 58 Procedure Date: 07/01/2023 Procedure Type: Transthoracic Echocardiogram Location[place] [facility] [place] Height: 170.18 cm Weight: 111.59 kg BSA: 2.21 m2 Heart Rate: 93 bpm BP: 165 / 83 mmHg Radiation Oncology Nurse: BRIAN Referring MD: Vinod Scanlon MD Wall Steamer: Paresh Layne MD Symptoms: KEITH Study Quality: Technically Difficult ECG Rhythm: Sinus Conclusions: - 1. Technically limited study despite use of contrast agent 2. Hyperdynamic LV ejection fraction greater than 70% 3. Limited visualization cardiac valve with normal cardiac valvular Doppler Findings Procedure Information Contrast agent, definity, is being given per protocol without apparent complications. Left Ventricle Normal left ventricular cavity size. There is normal left ventricular wall thickness. The left ventricular systolic function is hyperdynamic. The visually estimated ejection fraction is >70%. Spectral Doppler is indicative of an impaired relaxation filling pattern. E/E prime ratio is between 8 and 15 consistent with indeterminate filling pressures. Right Ventricle The right ventricle was not well visualized. Atria The left atrium is normal in size. Interatrial shunt cannot be excluded. The right atrium was not well visualized. Aortic Valve The aortic valve was not well visualized. There is no aortic valve stenosis. There is no aortic valve regurgitation. Mitral Valve The mitral valve was not well visualized. There is no mitral valve regurgitation. There is no mitral valve stenosis. Pulmonic Valve The pulmonic valve was not well visualized. Tricuspid Valve The tricuspid valve was not well visualized. Tricuspid regurgitation envelope is inadequate for calculation of right ventricular systolic pressure. Great Vessels All visible segments of the aorta are normal in size. The pulmonary artery was not well visualized. Venous The inferior vena cava was not well visualized. Pericardium/Pleural The pericardium was not well visualized. Prior Study Comparison No significant change compared to prior study dated: 06/26/2022. Measurements 2D Linear Measurements IVSd: 1.22 0.6-0.9/0.6-1.0 cm LVIDd: 4.42 3.9-5.3/4.2-5.9 cm LVIDd Index: 2.00 2.4-3.2/2.2-3.1 cm/m2 LVIDs: 2.51 2.0-3.6 cm LVPWd: 0.79 0.7-1.1 cm LA Diam: 3.60 2.7-3.8/3.0-4.0 cm LAIDs Index: 1.63 1.5-2.3 cm/m2 LV Mass: 186.93 67-162/88-224 g LV Mass Index: 84.59 43-95/49-115 g/m2 LVOT Diam: 2.00 3.0+(-)1.3 cm 2D Systolic Function EF 4C: 78.30 >55% EF 2C: 73.40 >55% EF BiP: 77.20 >55% Mitral Valve MV Pk E: 0.75 MV PK A: 0.91 MV Decel Time: 167.00 E/A: 0.80 E'Medial: 5.66 E/E' Med: 13.20 PHT: 49.00 MVA PHT: 4.49 Decel Zavala: 4.47 Aortic Valve AoV Pk Star: 1.20 AoV Pk Grad: 6.00 MARSHAL: 2.76 LVOT LVOT Pk Star: 1.09 LVOT Mn Star: 0.74 LVOT VTI: 0.22 LVOT Pk Grad: 5.00 LVOT Mn Grad: 3.00 LVOT Diam: 2.00 LVOT Area: 3.14 Diastolic Function MV Pk E: 0.75 MV Pk A: 0.91 E/A: 0.80 E'Medial: 5.66 E/E' Med: 13.20 Right Ventricle TAPSE (mm): 16.60 TVS' Star: 13.10 Great Vessels Aorta Sinus of Valsalva: 3.00 2.0-3.5 cm Ao Asc: 3.40 2.1-3.4 cm Pulmonary Valve PV Pk Star: 0.91 Peak PV Grad: 3.00 Updated in Other Vendor System with Status of Final Paresh Layne MD electronically signed on 07/01/2023 3:33:15 PM with status of Final
[2023-07-01 07:15] LABS: Hematocrit 39.9 % (37.0-47.0); Hemoglobin 11.8 g/dl (12.0-16.0); Mean Corpuscular HGB Conc 29.6 g/dl (31.0-35.0); Mean Corpuscular Hemoglobin 21.7 pg (27.0-33.0); Mean Corpuscular Volume 73.2 fL (80.0-98.0); Mean Platelet Volume 10.8 fL (9.4-12.3); Platelet Count 312 X10*3/uL (160-400); Red Blood Count 5.45 X10*6/uL (4.20-5.50); White Blood Count 13.4 X10*3/uL (4.8-10.8)
[2023-07-01 07:19] LABS: Glucose, Whole Blood 162 mg/dL (60-115)
[2023-07-01 07:33] LABS: Anion Gap 14 (12-20); Blood Urea Nitrogen 11 mg/dL (9-16); Calcium 9.8 mg/dL (8.4-10.2); Carbon Dioxide 27 mmol/L (22-29); Chloride 101 mmol/L (96-108); Creatinine Clr Calc Pharmacy 99.1; Estimated Glomerular Filt Rate > 60; Glucose Random 151 mg/dL (60-115); Magnesium 1.9 mg/dL (1.6-2.6); Potassium 3.4 mmol/L (3.3-5.1); Sodium 139 mmol/L (135-145)
[2023-07-01] MEDS: Metoclopramide HCl 10 MG TABLET PO ×4 (08:33→21:32)
[2023-07-01] MEDS: Gabapentin 400 MG CAPSULE 800 MG PO ×3 (08:33→21:31)
[2023-07-01] MEDS: DULoxetine HCl 30 MG CAPSULE.DR 90 MG PO (08:33)
[2023-07-01] MEDS: amLODIPine Besylate 10 MG TABLET PO (08:33)
[2023-07-01] MEDS: Metoprolol Tartrate 50 MG TABLET PO ×2 (08:33→21:31)
[2023-07-01] MEDS: 0.9 % Sodium Chloride Flush 3 ML SYRINGE IVFLUSH ×3 (08:34→21:34)
[2023-07-01] MEDS: Insulin Lispro 100 UNIT/ML 3 ML VIAL SUBCUT ×2 (08:34→12:11)
[2023-07-01] MEDS: LORazepam 1 MG TABLET PO ×2 (08:34→21:31)
[2023-07-01 11:17] LABS: Glucose, Whole Blood 161 mg/dL (60-115)
--- NOTE | 2023-07-01 11:35 | MHC.CM.PN ---
Pt lives alone in apt. has services from [facility] out of [facility], assist with ADL's 12 hours a week. HCP on file, daughter will transport home upon d/c. Plan is home with services. CM to follow and assist with d/c.
--- NOTE | 2023-07-01 11:42 | P.PNIM_ITS ---
Subjective Subjective Date of Service: 07/01/23 Interval History: f/u on sob,headache still c/o being sob with activity and has headach Physical Exam 2 Vital Signs: Vital Signs: Last Vital Signs Temp 97.8 F 07/01/23 11:33 Pulse 91 07/01/23 11:33 Resp 18 07/01/23 11:33 BP 165/83 H 07/01/23 11:33 Pulse Ox 96 07/01/23 11:33 O2 Del Method Room Air 07/01/23 11:33 BMI result Body Mass Index 38.8 Const: Other: . General: AO X 3, no acute distress Resp: CTA bilateral CVS: S1,S2,RRR GI: +BS, NT, no distention Skin: No rash Neuro: motor grossly intact Psych: appropriate affect Objective Data Active Medications Acetaminophen/Butalbital/Caffeine (Butalb/Acetamin/Caff 50/325/40 Tablet) 1 tab PO Q4H PRN PRN Reason: Headache Albuterol Sulfate (Albuterol Sulfate (0.083%) 2.5 Mg/3 Ml Vial.Neb) 2.5 mg INHALE QID PRN PRN Reason: shortness of breath or wheezing Last Admin: 06/30/23 22:01 Dose: 2.5 mg Documented By: HERMINIA Albuterol Sulfate (Albuterol Sulfate 90 Mcg 8 Gm Inhaler) 2 puff INHALE Q6H PRN PRN Reason: for wheezing Amlodipine Besylate (Amlodipine Besylate 10 Mg Tablet) 10 mg PO DAILY [facility]; Protocol Last Admin: 07/01/23 08:33 Dose: 10 mg Documented By: SUKH Atorvastatin Calcium (Atorvastatin Calcium 10 Mg Tablet) 10 mg PO BEDTIME COUNT INCLUDES THE [facility] Last Admin: 06/30/23 19:50 Dose: 10 mg Documented By: BURKE Clonidine HCl (Clonidine Hcl 0.1 Mg Tablet) 0.1 mg PO TID PRN; Protocol PRN Reason: Agitation or Anxiety Last Admin: 07/01/23 02:14 Dose: 0.1 mg Documented By: ANTOIC Dextrose (Dextrose 50 % 25 Gm/50 Ml Syringe) 25 gm IVPUSH Q15M PRN; Protocol PRN Reason: per Hypoglycemia Standing Ord. Dicyclomine HCl (Dicyclomine Hcl 10 Mg Capsule) 10 mg PO BID PRN PRN Reason: cramps Duloxetine HCl (Duloxetine Hcl 30 Mg Capsule.) 90 mg PO DAILY COUNT INCLUDES [facility] Last Admin: 07/01/23 08:33 Dose: 90 mg Documented By: SUKH Enoxaparin Sodium (Enoxaparin Sodium 40 Mg/0.4 Ml Syringe) 40 mg SUBCUT Q24H COUNT INCLUDES THE [facility] Last Admin: 06/30/23 16:38 Dose: 40 mg Documented By: SUKHWINDER Furosemide (Furosemide 40 Mg/4 Ml Vial) 40 mg IVPUSH BID@0900,1800 COUNT INCLUDES THE [facility]; Protocol Last Admin: 07/01/23 08:43 Dose: Not Given Documented By: SUKH Non-Admin Reason: No Access Gabapentin (Gabapentin 400 Mg Capsule) 800 mg PO TID COUNT INCLUDES [facility] Last Admin: 07/01/23 08:33 Dose: 800 mg Documented By: SUKH Glucose (Glucose Gel 15 Gm Gel..Gram.) 15 gm PO Q15M PRN; Protocol PRN Reason: per Hypoglycemia Standing Ord. Hydroxyzine HCl (Hydroxyzine Hcl 50 Mg Tablet) 50 mg PO BEDTIME COUNT INCLUDES [facility] Last Admin: 06/30/23 19:50 Dose: 50 mg Documented By: BURKE Insulin Glargine (Insulin Glargine,Hum.Rec.Anlog 100 Unit/Ml 10 Ml Vial) 10 unit SUBCUT BEDTIME COUNT INCLUDES THE [facility] Last Admin: 06/30/23 20:22 Dose: 10 unit Documented By: BURKE Insulin Human Lispro (Insulin Lispro 100 Unit/Ml 3 Ml Vial) 0 unit SUBCUT QIDACHS COUNT INCLUDES THE [facility]; Protocol Last Admin: 07/01/23 08:34 Dose: 2 unit Documented By: SUKH Levothyroxine Sodium (Levothyroxine Sodium 112 Mcg Tablet) 112 mcg PO DAILY@0600 COUNT INCLUDES [facility] Last Admin: 07/01/23 05:31 Dose: 112 mcg Documented By: KATE Lidocaine (Lidocaine 4 % Patch Adh..Patch) 1 patch TRANSDERMA DAILY PRN PRN Reason: pain Last Admin: 06/30/23 20:24 Dose: 1 patch Documented By: BURKE Lorazepam (Lorazepam 1 Mg Tablet) 1 mg PO BID COUNT INCLUDES [facility] Last Admin: 07/01/23 08:34 Dose: 1 mg Documented By: SUKH Meclizine HCl (Meclizine Hcl 25 Mg Tablet) 25 mg PO TID PRN PRN Reason: dizziness Methocarbamol (Methocarbamol 750 Mg Tablet) 750 mg PO QID PRN PRN Reason: muscle spasm Last Admin: 07/01/23 05:31 Dose: 750 mg Documented By: KATE Metoclopramide HCl (Metoclopramide Hcl 10 Mg Tablet) 10 mg PO QIDACHS COUNT INCLUDES [facility] Last Admin: 07/01/23 08:33 Dose: 10 mg Documented By: SUKH Metolazone (Metolazone 2.5 Mg Tablet) 2.5 mg PO MOWEFR COUNT INCLUDES THE [facility] Last Admin: 06/30/23 20:21 Dose: 2.5 mg Documented By: BURKE Metoprolol Tartrate (Metoprolol Tartrate 50 Mg Tablet) 50 mg PO BID COUNT INCLUDES [facility]; Protocol Last Admin: 07/01/23 08:33 Dose: 50 mg Documented By: SUKH Mirtazapine (Mirtazapine 30 Mg Tablet) 30 mg PO BEDTIME COUNT INCLUDES [facility] Last Admin: 06/30/23 20:21 Dose: 30 mg Documented By: BURKE Omeprazole (Omeprazole 20 Mg Capsule.Dr) 20 mg PO BID@0630,1630 COUNT INCLUDES [facility] Last Admin: 07/01/23 05:31 Dose: 20 mg Documented By: KATE Senna (Sennosides 8.6 Mg Tablet) 17.2 mg PO BEDTIME COUNT INCLUDES [facility] Last Admin: 06/30/23 20:23 Dose: Not Given Documented By: BURKE Non-Admin Reason: Patient Refused Sodium Chloride (0.9 % Sodium Chloride Flush 3 Ml Syringe) 3 ml IVFLUSH QSHIFT COUNT INCLUDES THE [facility] Last Admin: 07/01/23 08:34 Dose: 3 ml Documented By: SUKH Tiotropium Bath (Tiotropium Bath 2.5 Mcg Inhaler) 2 puff INHALE RDAILY COUNT INCLUDES THE [facility] Last Admin: 07/01/23 07:47 Dose: 2 puff Documented By: MATTHIEU Labs 07/01/23 06:53 07/01/23 06:53 Labs: Laboratory Results - last 24 hr 06/30/23 06/30/23 07/01/23 14:24 19:51 06:53 MCV 74.5 L 73.2 L MCH 21.9 L 21.7 L MCHC 29.4 L 29.6 L RDW 18.8 H 19.0 H Plt Count 304 312 MPV 10.9 10.8 Immature Gran % (Auto) 0.6 H Neut % (Auto) 70.9 Lymph % (Auto) 19.3 L [place] % (Auto) 4.9 Eos % (Auto) 4.0 Baso % (Auto) 0.3 Lymph # (Auto) 2.4 [place] # (Auto) 0.6 Eos # (Auto) 0.5 H Baso # (Auto) 0.0 Abs Immat Gran (auto) 0.08 H Absolute Neuts (auto) 8.7 H Absolute Nucleated RBC 0.000 0.000 Nucleated RBC % (auto) 0.0 0.0 Anion Gap 13 14 Estim Creat Clear Calc 102.9 99.1 Estimated GFR > 60 > 60 POC Glucose 140 H Random Glucose 99 151 H Calcium 9.7 D 9.8 Magnesium 1.9 Total Bilirubin 0.5 Direct Bilirubin 0.2 AST 16 ALT 18 Alkaline Phosphatase 98 B-Natriuretic Peptide < 10 Total Protein 7.9 Albumin 3.8 Lipase 22 Urine Color Dark Yellow Urine Appearance Clear Urine pH 5.5 Ur Specific [place] >= 1.030 H Urine Protein Trace Urine Glucose (UA) Negative Urine Ketones Negative Urine Blood Negative Urine Nitrite Negative Ur Leukocyte Esterase Trace H Urine RBC 0-2 Urine WBC 0-5 Ur Squamous Epith Cells 3-5 Urine Bacteria Trace Hyaline Casts 0-2 Influenza Type A (PCR) NEGATIVE Influenza Type B (PCR) NEGATIVE RSV RNA Qual (PCR) NEGATIVE SARS-CoV-2 RNA (RT-PCR) NEGATIVE 07/01/23 07/01/23 07:14 11:06 MCV MCH MCHC RDW Plt Count MPV Immature Gran % (Auto) Neut % (Auto) Lymph % (Auto) [place] % (Auto) Eos % (Auto) Baso % (Auto) Lymph # (Auto) [place] # (Auto) Eos # (Auto) Baso # (Auto) Abs Immat Gran (auto) Absolute Neuts (auto) Absolute Nucleated RBC Nucleated RBC % (auto) Anion Gap Estim Creat Clear Calc Estimated GFR POC Glucose 162 H 161 H Random Glucose Calcium Magnesium Total Bilirubin Direct Bilirubin AST ALT Alkaline Phosphatase B-Natriuretic Peptide Total Protein Albumin Lipase Urine Color Urine Appearance Urine pH Ur Specific [place] Urine Protein Urine Glucose (UA) Urine Ketones Urine Blood Urine Nitrite Ur Leukocyte Esterase Urine RBC Urine WBC Ur Squamous Epith Cells Urine Bacteria Hyaline Casts Influenza Type A (PCR) Influenza Type B (PCR) RSV RNA Qual (PCR) SARS-CoV-2 RNA (RT-PCR) Assessment and Plan (1) Acute CHF: Status: Acute Plan Pt is a 58-year-old female with a PMH significant for?HFpEF, HLD, insulin- dependent diabetes type 2, hypothyroidism, asthma, MARY, chronic pain, small- bowel motility disorder, anxiety, and depression who presents to the ED from her pulmonology office visit for evaluation of worsening SOB and KEITH. Pt will be admitted to the hospital for acute HFpEF exacerbation. Acute HFpEF exacerbation--presently no sings of heart failure (no leg edema, lungs clear and bnp normal), stop IV Lasix. I think her feeling sob is mostly due to hypoventilation, nonetheless I will get an echo to be sure Right-sided resting tremor Pt with resting tremor of right upper and lower extremities for the past month Has not seen anyone yet for evaluation Physical examination reveals diminished sensation to light touch on right side of face, arms, and legs, preserved strength Neurology consult Migraine--Fiorocet PRN for pain Leukocytosis Slight leukocytosis of 12.3 Chronically elevated, likely secondary to steroid use Insulin-dependent diabetes type 2 Hold home meds SSI, Lantus Diabetic diet Hypothyroidism Continue levothyroxine Anxiety/depression Continue home meds Obesity class II Encourage weight loss Full Code Attending:?Dr. Scanlon DVT Prophylaxis: Lovenox Pt will require a hospitalization of at least two nights for treatment of?acute HFpEF exacerbation with IV diuetics and close monitoring. Time Spent With Patient Time: Total time managing care of this patient today ____ minutes. Quality Stroke Does the patient have a stroke diagnosis?: No VTE Prior VTE?: No VTE Risk Level:: Medical - moderate - high VTE Device Contraindication: Treatment Not Indicated VTE Drug Contraindication: N/A - Med Ordered
--- NOTE | 2023-07-01 12:27 | P.CNNE_ITS ---
History of Present Illness Data of Consult Service Date: 07/01/23 Primary Care Provider: Jenny Bell MD HPI Reason for consult: Tremor 58 years old woman with COPD who was admitted in hospital for worsening of her pulmonary symptoms reported to her the hospitalist that she was also having some right-sided tremor for a while. This consultation was requested for that. She denied any aches previous psychiatric disease or exposure to psychiatric medicines but stated that she was getting some counseling Review of Systems 2 Review of Systems: No hand pain numbness or tingling or complain of neck pain. [facility] Past Medical History Medical History Gastroparesis Left knee pain Hypothyroidism Bilateral shoulder pain Hyperlipidemia LDL goal <70 Degeneration, intervertebral disc, cervical Spondylosis of cervical spine at multiple levels without myelopathy Sleep apnea Renal calculi Incontinence Goiter Disc degeneration, lumbar Spondylosis of lumbar region without myelopathy or radiculopathy Arthropathy of facet joint Lumbar pain Insomnia LUDY (generalized anxiety disorder) Moderately severe recurrent major depression Multiple air fluid levels of small intestine determined by X-ray Diabetes mellitus Chronic pain syndrome Morbid (severe) obesity due to excess calories Fibromyalgia Small bowel motility disorder Chronic idiopathic constipation Asthma Family History Family History Father Past heart attack Anxiety Mother MOF (multiple organ failure) Brother HIV (human immunodeficiency virus infection) Sister Ovarian cancer Lupus Bone cancer Uterine cancer Tumor Daughter Guillain-[place] Sister Lupus History of open heart surgery Family/Other Depression FH: mental illness Maternal Aunt Breast cancer Maternal Aunt Tumor Surgical History Surgical History History of knee replacement procedure of right knee History of hernia surgery Hx of colonoscopy History of esophagogastroduodenoscopy (EGD) History of cholecystectomy Delivery by section History of hysterectomy Social History Social History Household Members: None Household Members Other:: Housing: Apartment Are you a primary progressive care unit registered nurse to a significant other at home: No Do you presently have visiting nurse or other home services: Yes ([employer]) Alcohol intake: never Patient Tobacco Use Status: Never used Tobacco Smoked in Last 30 Days: No e-Cigarette/Vaping Use: Never Used Second Hand Smoke Exposure: Yes Use of substances other than those prescribed or required for medical reasons: No Currently Displaying Signs/Symptoms of Drug Intoxication Withdrawal: No Have you been hit, kicked, punched, or otherwise hurt by someone within the past year? If so, by whom?: No Do you feel safe in your current relationship?: Yes Is there a partner from a previous relationship who is making you feel unsafe now?: No Are you made to feel afraid or neglected: No Advance Directives: Yes Advance Directives on File: Yes Advance Directives Date on File: 12/08/21 Do you have thoughts of harming others: None Do you have a plan to hurt others: No Plan Recently lost weight without trying: No Nutrition Risks: No Nutritional Risk Patient : No : No Poor oral hygiene: No service: No Current occupational status: unemployed and disabled Cognitive needs: No Hearing needs: No Vision needs: No Meds Allergies Allergy/AdvReac Type Severity Reaction Status Date / Time Penicillins Allergy Severe swelling Verified 06/30/23 10:36 adhesive tape [ADHESIVE TAPE] Allergy Intermediate RASH Verified 06/30/23 10:36 amoxicillin [AMOXICILLIN] Allergy Intermediate RASH,SWELLI Verified 06/30/23 10:36 NG ibuprofen [From Motrin] Allergy Intermediate Hypertensio Verified 06/30/23 10:36 n latex Allergy Intermediate Rash Verified 06/30/23 10:36 Active Medications: Current Medications Acetaminophen/Butalbital/Caffeine (Butalb/Acetamin/Caff 50/325/40 Tablet) 1 tab PO Q4H PRN PRN Reason: Headache Albuterol Sulfate (Albuterol Sulfate (0.083%) 2.5 Mg/3 Ml Vial.Neb) 2.5 mg INHALE QID PRN PRN Reason: shortness of breath or wheezing Last Admin: 06/30/23 22:01 Dose: 2.5 mg Albuterol Sulfate (Albuterol Sulfate 90 Mcg 8 Gm Inhaler) 2 puff INHALE Q6H PRN PRN Reason: for wheezing Amlodipine Besylate (Amlodipine Besylate 10 Mg Tablet) 10 mg PO DAILY [facility]; Protocol Last Admin: 07/01/23 08:33 Dose: 10 mg Atorvastatin Calcium (Atorvastatin Calcium 10 Mg Tablet) 10 mg PO BEDTIME [facility] Last Admin: 06/30/23 19:50 Dose: 10 mg Clonidine HCl (Clonidine Hcl 0.1 Mg Tablet) 0.1 mg PO TID PRN; Protocol PRN Reason: Agitation or Anxiety Last Admin: 07/01/23 02:14 Dose: 0.1 mg Dextrose (Dextrose 50 % 25 Gm/50 Ml Syringe) 25 gm IVPUSH Q15M PRN; Protocol PRN Reason: per Hypoglycemia Standing Ord. Dicyclomine HCl (Dicyclomine Hcl 10 Mg Capsule) 10 mg PO BID PRN PRN Reason: cramps Duloxetine HCl (Duloxetine Hcl 30 Mg Capsule.Dr) 90 mg PO DAILY [facility] Last Admin: 07/01/23 08:33 Dose: 90 mg Enoxaparin Sodium (Enoxaparin Sodium 40 Mg/0.4 Ml Syringe) 40 mg SUBCUT Q24H [facility] Last Admin: 06/30/23 16:38 Dose: 40 mg Gabapentin (Gabapentin 400 Mg Capsule) 800 mg PO TID [facility] Last Admin: 07/01/23 08:33 Dose: 800 mg Glucose (Glucose Gel 15 Gm Gel..Gram.) 15 gm PO Q15M PRN; Protocol PRN Reason: per Hypoglycemia Standing Ord. Hydroxyzine HCl (Hydroxyzine Hcl 50 Mg Tablet) 50 mg PO BEDTIME [facility] Last Admin: 06/30/23 19:50 Dose: 50 mg Insulin Glargine (Insulin Glargine,Hum.Rec.Anlog 100 Unit/Ml 10 Ml Vial) 10 unit SUBCUT BEDTIME [facility] Last Admin: 06/30/23 20:22 Dose: 10 unit Insulin Human Lispro (Insulin Lispro 100 Unit/Ml 3 Ml Vial) 0 unit SUBCUT QIDACHS [facility]; Protocol Last Admin: 07/01/23 12:11 Dose: 2 unit Levothyroxine Sodium (Levothyroxine Sodium 112 Mcg Tablet) 112 mcg PO DAILY@0600 [facility] Last Admin: 07/01/23 05:31 Dose: 112 mcg Lidocaine (Lidocaine 4 % Patch Adh..Patch) 1 patch TRANSDERMA DAILY PRN PRN Reason: pain Last Admin: 06/30/23 20:24 Dose: 1 patch Lorazepam (Lorazepam 1 Mg Tablet) 1 mg PO BID [facility] Last Admin: 07/01/23 08:34 Dose: 1 mg Meclizine HCl (Meclizine Hcl 25 Mg Tablet) 25 mg PO TID PRN PRN Reason: dizziness Methocarbamol (Methocarbamol 750 Mg Tablet) 750 mg PO QID PRN PRN Reason: muscle spasm Last Admin: 07/01/23 05:31 Dose: 750 mg Metoclopramide HCl (Metoclopramide Hcl 10 Mg Tablet) 10 mg PO QIDACHS [facility] Last Admin: 07/01/23 12:11 Dose: 10 mg Metolazone (Metolazone 2.5 Mg Tablet) 2.5 mg PO MOWEFR [facility] Last Admin: 06/30/23 20:21 Dose: 2.5 mg Metoprolol Tartrate (Metoprolol Tartrate 50 Mg Tablet) 50 mg PO BID [facility]; Protocol Last Admin: 07/01/23 08:33 Dose: 50 mg Mirtazapine (Mirtazapine 30 Mg Tablet) 30 mg PO BEDTIME [facility] Last Admin: 06/30/23 20:21 Dose: 30 mg Omeprazole (Omeprazole 20 Mg Capsule.Dr) 20 mg PO BID@0630,1630 [facility] Last Admin: 07/01/23 05:31 Dose: 20 mg Senna (Sennosides 8.6 Mg Tablet) 17.2 mg PO BEDTIME [facility] Last Admin: 06/30/23 20:23 Dose: Not Given Sodium Chloride (0.9 % Sodium Chloride Flush 3 Ml Syringe) 3 ml IVFLUSH QSHIFT [facility] Last Admin: 07/01/23 08:34 Dose: 3 ml Tiotropium Mio (Tiotropium Mio 2.5 Mcg Inhaler) 2 puff INHALE RDAILY [facility] Last Admin: 07/01/23 07:47 Dose: 2 puff Home Medications Medication Instructions Recorded Confirmed Last Taken Type vaporizers #1 ea 10/10/20 06/02/23 Unknown History clonidine HCl 0.1 mg tablet 0.1 mg PO TID PRN Agitation or 09/19/21 06/30/23 01/25/22 10:00 History Anxiety mirtazapine 30 mg tablet 30 mg PO BEDTIME 06/23/22 06/30/23 Unknown History insulin syringe-needle U-100 0.3 #10 ea 10/20/22 06/02/23 Unknown History mL 31 gauge x 5/16 (BD Insulin Syringe Ultra-Fine) dulaglutide 0.75 mg/0.5 mL 0.75 mg subcut [place] 06/30/23 06/30/23 Unknown History subcutaneous pen injector (Trulicity) insulin lispro 100 unit/mL 7 unit subcut TID 06/30/23 06/30/23 Unknown History subcutaneous solution lorazepam 1 mg tablet (Ativan) 1 mg PO BID anxiety 06/30/23 06/30/23 Unknown History methocarbamol 750 mg tablet 750 mg PO QID PRN muscle spasm 06/30/23 06/30/23 Unknown History metolazone 2.5 mg tablet 2.5 mg PO MOWEFR 06/30/23 06/30/23 Unknown History Physical Exam 2 Vital Signs: Vital Signs: Last Vital Signs Temp 97.8 F 07/01/23 11:33 Pulse 91 07/01/23 11:33 Resp 18 07/01/23 11:33 BP 165/83 H 07/01/23 11:33 Pulse Ox 96 07/01/23 11:33 O2 Del Method Room Air 07/01/23 11:33 BMI result Body Mass Index 38.8 Neuro: Other: She is alert and awake with normal spontaneity of speech fluency comprehension and affect. There is no particular tremor at rest or at action that I saw. Face was symmetrical. Facial expressions were maintained. Examination was also limited as she was in the bed. Results Labs 07/01/23 06:53 07/01/23 06:53 Labs: Short CBC 06/30/23 07/01/23 Range/Units 14:24 06:53 WBC 12.3 H 13.4 H (4.8-10.8) X10*3/uL Hgb 11.3 L 11.8 L (12.0-16.0) g/dl Hct 38.5 39.9 (37.0-47.0) % Plt Count 304 312 (160-400) X10*3/uL BMP 06/30/23 07/01/23 14:24 06:53 Sodium 143 139 Potassium 4.1 3.4 Chloride 108 101 Carbon Dioxide 26 27 BUN 16 11 Creatinine 0.78 0.81 Calcium 9.7 D 9.8 Liver Function 06/30/23 Range/Units 14:24 Total Bilirubin 0.5 (0.0-1.0) mg/dL Direct Bilirubin 0.2 (0.0-0.5) mg/dL AST 16 (5-31) U/L ALT 18 (0-31) U/L Alkaline Phosphatase 98 (39-117) U/L Albumin 3.8 (3.5-5.0) g/dL Urine 06/30/23 Range/Units 14:24 Urine Color Dark Yellow Urine Appearance Clear Urine pH 5.5 (5.0-9.0) Ur Specific [place] >= 1.030 H (1.005-1.025) Urine Protein Trace (Neg-Trace) mg/dL Urine Glucose (UA) Negative (Negative) mg/dL Her head CT in October revealed mild cortical atrophy. Assessment and Plan (1) Tremor: Status: Acute 58 years old woman who reported that she was having right-sided tremor for a while. She is admitted in hospital with worsening of COPD pathology. Her examination did not reveal any overt tremor. My recommendation is outpatient follow-up and evaluation for tremor Time Spent With Patient Time: Total time managing care of this patient today ____ minutes. Procedures Date of Service Date of Service: 07/01/23
[2023-07-01] MEDS: SUMAtriptan succinate 25 MG TABLET PO (14:49)
[2023-07-01 16:08] LABS: Glucose, Whole Blood 146 mg/dL (60-115)
[2023-07-01] MEDS: Enoxaparin Sodium 40 MG/0.4 ML SYRINGE SUBCUT (16:43)
[2023-07-01 19:50] LABS: Glucose, Whole Blood 109 mg/dL (60-115)
[2023-07-01] MEDS: Butalb/Acetamin/Caff 50/325/40 TABLET 1 TAB PO (21:31)
[2023-07-01] MEDS: Mirtazapine 30 MG TABLET PO (21:31)
[2023-07-01] MEDS: Atorvastatin Calcium 10 MG TABLET PO (21:31)
[2023-07-01] MEDS: hydrOXYzine HCL 50 MG TABLET PO (21:31)
[2023-07-01] MEDS: Insulin Glargine,Hum.rec.anlog 100 UNIT/ML 10 ML VIAL 10 UNIT SUBCUT (21:34)
[2023-07-02 04:00] VITALS: BP 140/67; PULSE 83; RESP 18; TEMP 36.4; O2SAT 92
[2023-07-02] MEDS: Butalb/Acetamin/Caff 50/325/40 TABLET 1 TAB PO (05:29)
[2023-07-02] MEDS: Omeprazole 20 MG CAPSULE.DR PO (05:29)
[2023-07-02] MEDS: Levothyroxine Sodium 112 MCG TABLET PO (05:29)
[2023-07-02] MEDS: cloNIDine HCL 0.1 MG TABLET PO (05:35)
[2023-07-02 07:06] LABS: Glucose, Whole Blood 153 mg/dL (60-115)
[2023-07-02 07:10] VITALS: BP 156/81; PULSE 95; RESP 20; TEMP 36.3; O2SAT 93
[2023-07-02] MEDS: amLODIPine Besylate 10 MG TABLET PO (09:03)
[2023-07-02] MEDS: Gabapentin 400 MG CAPSULE 800 MG PO (09:03)
[2023-07-02] MEDS: Insulin Lispro 100 UNIT/ML 3 ML VIAL SUBCUT (09:03)
[2023-07-02] MEDS: Metoprolol Tartrate 50 MG TABLET PO (09:03)
[2023-07-02] MEDS: Metoclopramide HCl 10 MG TABLET PO (09:04)
[2023-07-02] MEDS: 0.9 % Sodium Chloride Flush 3 ML SYRINGE IVFLUSH (09:04)
[2023-07-02] MEDS: LORazepam 1 MG TABLET PO (09:04)
[2023-07-02] MEDS: DULoxetine HCl 30 MG CAPSULE.DR 90 MG PO (09:04)
[2023-07-02] MEDS: Lidocaine 4 % Patch ADH..PATCH 1 PATCH TRANSDERMA (09:10)
--- NOTE | 2023-07-02 09:17 | PM.DS ---
DS: Providers Provider Date of Service: 07/02/23 Date of admission: 06/30/23 16:22 Primary care physician: Jenny Bell MD Consults: 06/30/23 16:26 Consult to Neurology Routine Consulting Provider: [facility] Reason for consultation: New resting tremor of RUE and RLE x1 month DS: Diagnosis Discharge Diagnosis (1) Tremor: Status: Resolved DS: Summary Hospital Course Hospital Course: Chief Complaint: Increasing SOB, edema Pt is a 58-year-old female with a PMH significant for?HFpEF, HLD, insulin-dependent diabetes type 2, hypothyroidism, asthma, MARY, chronic pain, small-bowel motility disorder, anxiety, and depression who presents to the ED from her pulmonology office visit for evaluation of worsening SOB and KEITH. Patient was seen by Dr. Hernandez in pulmonology?earlier in the day. Was recently switched from torsemide to Bumex for worsening SOB and lower leg edema, however continues to have increased lower leg edema, dyspnea on minimal exertion, and orthopnea despite medication change. She has also experienced significant weight gain during the past month despite not eating much, so much so that she states her clothes now seem tight . Patient also has multiple other complaints: Has developed a resting tremor of right upper and lower extremities for the past month. States she has not seen anyone or had this evaluated yet. Also complains of central belly pain and right sided abdominal swelling for which she is scheduled to get an outpatient ultrasound on Wednesday. Also complains of 5 days of severe headache that is different from her normal migraines. PCP States headache is centered around her right eye and radiates to the back of her head where she also experiences numbness. Some nausea, no vomiting. Denies chest pain or palpitations. No change in ambulation. In the ED patient was afebrile but slightly hypertensive up to 145/77, satting at 96% on RA. Labs were significant for chronically elevated WBC at 12.3, otherwise largely unremarkable. Electrolytes WNL. Renal function, hepatic function WNL. Troponin negative. BNP negative. CXR showed right lower lobe atelectasis. EKG demonstrated normal sinus rhythm with nonspecific T-wave abnormality with QTc 468. Last echocardiogram on 06/26/2022 showed normal LV systolic function with EF 65% with mild to moderately decreased right ventricular systolic function. Pt was treated with Lasix IV 40mg. Pt will be admitted to the hospital for acute HFpEF exacerbation. Hospital course: Patient was admitted and was given IV Lasix for presume heart failure but closer reviewd show no evidence of heart, she had no leg edema, normal bnp, clear lungs and echo showed normal EF, some of her sob maybe due to obesity hypoventilation. As for tremors, she was evaluated by Dr. Aden with recommendation for outpatient evaluation. She has also been having Migraine headahe--not new and treated with imitrex Time Spent with Patient Time attestation: Total time managing care of this patient today ____ minutes. Discharge coordination time: Greater than 30 minutes Quality: Safe Use of Opioids Does Pt have an Active Cancer Diagnosis on the Problem List?: No Quality: Stroke Does the patient have a stroke diagnosis?: No Physical Exam Vital Signs: Vital Signs: Last Vital Signs Temp 97.3 F 07/02/23 07:10 Pulse 95 07/02/23 07:10 Resp 20 07/02/23 07:10 BP 156/81 H 07/02/23 07:10 Pulse Ox 93 07/02/23 07:10 O2 Del Method Room Air 07/02/23 07:10 BMI result Body Mass Index 38.8 DS: Data Data Completed and Pending Completed studies during hospitalization [Text1]: Procedures Assistance with Respiratory Ventilation, Less than 24 Consecutive Hours, Continuous Positive Airway Pressure (07/04/22) Labs on day of discharge: Laboratory Results - last 24 hr 07/01/23 07/01/23 07/01/23 11:06 16:03 19:47 POC Glucose 161 H 146 H 109 07/02/23 06:59 POC Glucose 153 H Discharge Plan Discharge Anticipated Discharge Date/Time: 07/02/23 09:16 Patient Disposition: Home, Self-Care Discharge Diagnosis: shortness of breath Referrals: Jenny Mendosa MD [Primary Care Provider] - 1 Week Discharge Medications: Continued (DME) lancets [FreeStyle Lancets] 28 gauge misc See Rx Instructions .Route Qty: 100 6RF Rx Instructions: BID (DME) FreeStyle Julianne 2 Sensor Kit See Rx Instructions .Route Qty: 1 2RF Rx Instructions: As directed (DME) diabetic supplies, miscellan. Misc See Rx Instructions .Route Qty: 1 0RF Rx Instructions: As directed (DME) heating pads Pad See Rx Instructions .Route Qty: 1 0RF Rx Instructions: As directed (DME) [facility] See [facility]ructions .Route Qty: 1 0RF Rx Instructions: As directed (DME) miscellaneous medical supply [facility] See Rx Instructions .ROUTE .MEDSUPPLY Qty: 1 0RF Rx Instructions: toilet seat elevator (DME) pen needle, diabetic [BD Ultra-Fine Mini Pen Needle] 31 gauge x 3/16 needle See Rx Instructions .Route Qty: 100 0RF Rx Instructions: As directed (DME) BD Insulin Syringe (half unit) 0.3 mL 31 gauge x 5/16 syringe See Rx Instructions .Route Qty: 100 3RF Rx Instructions: Use 1 needle once a day duloxetine 60 mg capsule,delayed release(DR/EC) 90 mg PO DAILY 90 Days Qty: 135 1RF (DME) blood-glucose meter [FreeStyle Lite Meter] Kit See Rx Instructions .Route Qty: 1 0RF Rx Instructions: As directed (DME) FreeStyle Lite Strips Strip See Rx Instructions .Route Qty: 100 3RF Rx Instructions: use 1 test strip once a day (DME) walker [facility] [place] See Rx Instructions .Route Qty: 1 0RF Rx Instructions: walker with seat and wheels (DME) insulin syringe-needle U-100 [BD Insulin Syringe Ultra-Fine] 0.5 mL 31 gauge x 5/16 syringe See Rx Instructions .Route Qty: 100 3RF Rx Instructions: Use 1 three times a day metoprolol tartrate 50 mg tablet 50 mg PO BID 90 Days Qty: 180 1RF amlodipine 10 mg tablet 10 mg PO DAILY Qty: 90 1RF levothyroxine 112 mcg tablet 112 mcg PO DAILY 90 Days Qty: 90 1RF atorvastatin 10 mg tablet 10 mg PO BEDTIME 90 Days Qty: 90 1RF acetaminophen [Tylenol Arthritis Pain] 650 mg tablet extended release 650 mg PO Q8H PRN (Reason: arthritis pain) Qty: 90 3RF (DME) diabetic shoes and inserts See Rx Instructions .Route .MEDSUPPLY Qty: 1 1RF Rx Instructions: As directed dicyclomine 10 mg capsule 10 mg PO BID PRN (Reason: for cramps) Qty: 180 1RF lidocaine 5 % adhesive patch,medicated 1 patch topical DAILY PRN (Reason: pain) 30 Days Qty: 30 2RF Rx Instructions: leave on most painful area for up to 12 hrs albuterol sulfate 2.5 mg /3 mL (0.083 %) solution for nebulization 2.5 mg inhalation QID PRN (Reason: shortness of breath or wheezing) Qty: 75 0RF hydroxyzine HCl 50 mg tablet 50 mg PO BEDTIME Qty: 90 1RF insulin glargine [Lantus U-100 Insulin] 100 unit/mL solution 15 unit subcut QPM 90 Days Qty: 13.5 1RF (DME) Toilet seat riser See Rx Instructions .Route .MEDSUPPLY Qty: 1 0RF Rx Instructions: As directed (DME) Shower Chair Mis See Rx Instructions .Route Qty: 1 0RF Rx Instructions: As directed metformin 500 mg tablet 500 mg PO BID Qty: 180 2RF meclizine 25 mg tablet 25 mg PO TID PRN (Reason: dizziness) 90 Days Qty: 270 0RF gabapentin 800 mg tablet 800 mg PO TID 30 Days Qty: 90 0RF Incruse Ellipta 62.5 mcg/actuation blister with device 1 inh inhalation DAILY 30 Days Qty: 1 6RF rizatriptan 5 mg tablet See Rx Instructions PO .COMPLEX 30 Days Qty: 9 0RF Rx Instructions: take 1 tablet at onset of headache; if no relief, may repeat 1 tablet after at least 2 hrs PO metolazone 2.5 mg tablet 2.5 mg PO MOWEFR methocarbamol 750 mg tablet 750 mg PO QID PRN (Reason: muscle spasm) lorazepam [Ativan] 1 mg tablet 1 mg PO BID insulin lispro 100 unit/mL solution 7 unit subcut TID (DME) vaporizers Mis See Rx Instructions .ROUTE .MEDSUPPLY Qty: 1 Rx Instructions: As directed (DME) cane Device See Rx Instructions .Route Qty: 1 0RF Rx Instructions: As directed clonidine HCl 0.1 mg tablet 0.1 mg PO TID PRN (Reason: Agitation or Anxiety) mirtazapine 30 mg tablet 30 mg PO BEDTIME (DME) insulin syringe-needle U-100 [BD Insulin Syringe Ultra-Fine] 0.3 mL 31 gauge x 5/16 syringe See Rx Instructions .ROUTE .MEDSUPPLY Qty: 10 Rx Instructions: As directed (DME) blood pressure test kit-wrist Kit See Rx Instructions .ROUTE .MEDSUPPLY Qty: 1 0RF Rx Instructions: to check blood pressure pantoprazole [Protonix] 40 mg tablet,delayed release (DR/EC) 40 mg PO BID 30 Days Qty: 60 6RF metoclopramide HCl [Reglan] 10 mg tablet 10 mg PO QIDACHS Qty: 120 6RF Rx Instructions: Provider aware possible interactions and is monitoring patient senna 8.6 mg capsule 17.2 mg PO BEDTIME 90 Days Qty: 180 3RF bumetanide 2 mg tablet 2 mg PO BID 30 Days Qty: 60 6RF No Action albuterol sulfate [Ventolin HFA] 90 mcg/actuation HFA aerosol inhaler 2 puff PO Q6H PRN (Reason: for wheezing) Qty: 18 1RF Trulicity 0.75 mg/0.5 mL pen injector 0.75 mg subcut QWEEK Discharge Orders: Discharge Order (Routine); Ordered 07/02/23 Ordered By: Vinod Scanlon Diet: Diabetic diet Activity on Discharge: As tolerated Stand Alone Forms: Patient Portal Discharge page Care Plan Goals: resolution of shortness of breath Health Concerns: shortness of breath, tremors on one side Plan of Treatment: continue your usual medications and follow up with your doctor and if you continue to have tremors, you will need to have your doctor make a referal to dr. aden for further evaluation Assessment: as above Discharge Date/Time: 07/02/23 10:58
--- NOTE | 2023-07-02 10:48 | MHC.CM.PN ---
Pt is medically cleared for D/C home with resumption of previous [facility] services. Pts daughter will transport her home.
== END 2023-07-02 10:58 | disposition home or self-care (01) | DRG 143 ==
LOC: HO.ED 15:08 → HO.EDOVER 16:32 → HO.IMC 17:09
PROVIDERS: Admitting Provider Student in an Organized Health Care Education/Training Program; Emergency Provider Emergency Medicine; PCP Internal Medicine; Visit Provider Internal Medicine
DX: E66.2 Morbid (severe) obesity with alveolar hypoventilation (principal); I50.32 Chronic diastolic (congestive) heart failure; E03.9 Hypothyroidism, unspecified; E11.9 Type 2 diabetes mellitus without complications; E78.5 Hyperlipidemia, unspecified; G47.33 Obstructive sleep apnea (adult) (pediatric); F41.1 Generalized anxiety disorder; G25.2 Other specified forms of tremor; J45.909 Unspecified asthma, uncomplicated; F41.9 Anxiety disorder, unspecified; F32.A Depression, unspecified; Z68.38 Body mass index [BMI] 38.0-38.9, adult; M79.7 Fibromyalgia; Z20.822 Contact with and (suspected) exposure to COVID-19; Z91.040 Latex allergy status; Z79.4 Long term (current) use of insulin; Z79.890 Hormone replacement therapy; Z79.899 Other long term (current) drug therapy
CPT/HCPCS: 0241U; 36415; 71045; 80048; 80076; 81001; 82947; 83690; 83735; 83880; 84484; 85025; 85027; 93005; 93306; 94640; 94660; 97161; 99285; J1650; J1940; Q9957

== ENCOUNTER 2023-06-30 16:22 | Outpatient (BNV) | payer OTHER, SELFPAY | END 2023-07-01 07:00 | PROVIDERS: Admitting Provider Student in an Organized Health Care Education/Training Program; Emergency Provider Emergency Medicine; PCP Internal Medicine; Visit Provider Internal Medicine Cardiovascular Disease | DX: I50.31 Acute diastolic (congestive) heart failure (principal) | CPT/HCPCS: 93306 ==

== ENCOUNTER → 2023-06-30 16:22 | Outpatient (BNV) | payer OTHER, SELFPAY | PROVIDERS: Admitting Provider Student in an Organized Health Care Education/Training Program; Emergency Provider Emergency Medicine; PCP Internal Medicine; Visit Provider Student in an Organized Health Care Education/Training Program | DX: R25.1 Tremor, unspecified (principal) | CPT/HCPCS: 99223; 99232; 99239 ==

== ENCOUNTER 2023-07-07 13:33 | Outpatient (AMB) | payer OTHER, SELFPAY ==
--- NOTE | 2023-07-07 13:35 | A.OFFVIS_ITS ---
Intake Vital Signs 07/07/23 13:41 Height 5 ft 7 in Weight 238 lb 8.642 oz BMI 37.4 BP 126/68 Blood Pressure Location Rt brachial Position Sitting Pulse 78 Intake Visit Reasons: follow up r/s from 07/06/2023 Intake Note: Patient presents to in office visit today in follow up of abdominal pain. CC: Patient c/o dizziness, abdominal pain, headache, heartburn, and lower back pain. She also reports and episode of blood in the stool about a week and a half ago. Caregiver Services Home Required: No Accompanied by: Self / Same As Patient Allergies Penicillins Allergy (Severe, Verified 07/07/23 13:47) swelling adhesive tape [ADHESIVE TAPE] Allergy (Intermediate, Verified 07/07/23 13:47) RASH amoxicillin [AMOXICILLIN] Allergy (Intermediate, Verified 07/07/23 13:47) RASH,SWELLING ibuprofen [From Motrin] Allergy (Intermediate, Verified 07/07/23 13:47) Hypertension latex Allergy (Intermediate, Verified 07/07/23 13:47) Rash HPI follow up r/s from 07/06/2023 HPI Details Assessment & Plan (1) GERD (gastroesophageal reflux diseas e): Code(s): K21.9 - Gastro-esophageal reflux disease without esophagitis (2) Right sided abdominal pain: Comment: Seems related to bloating and cramping Code(s): R10.9 - Unspecified abdominal pain (3) Abdominal cramping: Code(s): R10.9 - Unspecified abdominal pain (4) Morbid (severe) obesity due to exces s calories: Code(s): E66.01 - Morbid (severe) obesity due to excess calories (5) Erosive esophagitis: Code(s): K22.10 - Ulcer of esophagus without bleeding (6) Abdominal wall bulge: Code(s): R19.00 - Intra-abdominal and pelvic swelling, mass and lump, unspecified site Orders: Orders US abdomen complet e 06/17/23 R19.00 - Intra-abd ominal and pelvic swelling, mass and lump, unspecified site Medications: New pantoprazole (Prot amor) 40 mg PO BID 60 ta bs 6RF 30 days K22.10 - Ulcer of esophagus without bleeding Refilled sennosides (senna) 17.2 mg (2 x 8.6 m g) PO BEDTIME 180 tabs 3RF constipat ion 90 days K59.04 - Chronic i diopathic constipa tion, 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) (pediat zohaib), E11.43 - Typ e 2 diabetes melli tus with diabetic autonomic (poly)ne uropathy, K31.84 - Gastroparesis, K2 1.9 - Gastro-esoph ageal reflux disea se without esophag itis, E66.01 - Mor bid (severe) obesi ty due to excess c alories metoclopramide HCl (Reglan) Provi javier aware possible interactions and is monitoring joaquin ent 10 mg PO QIDACHS 1 20 tabs 6RF E11.43 - Type 2 di abetes mellitus wi th diabetic autono evan (poly)neuropat hy, K31.84 - Gastr oparesis Discontinued ondansetron Dis continued Reason: Doctor's Order 4 mg PO Q8H PRN 3 0 tabs 0RF nausea and vomiting sod phos mono-sod phos dibasic 1.5 g john administer with 240 mL of simeon ar fluid Discon tinued Reason: Fredrick mace Completed Co urse 4 tabs PO Q15M 32 tabs 0RF peg-electrolyte so ln 420 gram unt il fecal effluent is clear Discon tinued Reason: Fredrick mace Completed Co urse 240 mL PO Q10M 4, 000 mL 0RF She tolerated the procedure well and did not have trouble but admits that she ate the day before the procedure. She is agreeable to the 1-2 year repeat. The procedure was well tolerated. The results were explained and the patient is agreeable to the follow-up interval as stated. The bowel pattern has returned to normal. Education was provided to tell any 1st degree relatives about their findings to be sure that they are screened by age 45. Educated that they will be put on a recall list when it is time for their repeat scope but should they move out of state or away from the hospital they will need to remember along with their primary to repeat the procedure in a timely fashion to avoid any adverse complications. She tells me she has missed several visits because she has been very sick. She is having quite a lot of trouble with severe headaches that are not responsive to either her gabapentin (which is for her fibromyalgia) or to her sumatriptan. She has been apparently discharged by Neurology and Rheumatology. She says the gabapentin is not helping her at all. She also sees pain management for injec tions of her lumbar spine and she recently had 1 that was not helpful with the pain. With this she continues to have epigastric discomfort which does not surprise me given the findings of focal active inflammation on her last EGD in January. We review all of the results for this and her colonoscopy. I want to get her on twice a day PPI as I really believe she would benefit from a but this may be restricted according to her insurance. We may need to consider doing an a.m. PPI and in evening dose of famotidine depending on what happens with the PA. she also complains of intermittent nausea that seems to be triggered by swallowing her own saliva despite being adherent to her 10 mg of Reglan 4 times a day. She has senna for occasional constipation but she has not been struggling much with diarrhea or constipation at this time., Return office visit after the ultrasound which was ordered to explore a painful lump in her right lower quadrant and a 6 month appointment so that we do not was track of each other. ULTRASOUND OF THE ABDOMEN 04/29/23 FINDINGS: PANCREAS: Normal. LIVER: The liver is normal in size. The liver contour is normal. There is diffuse increased liver parenchymal echogenicity, consistent with hepatic steatosis. No focal hepatic lesion. There is no intrahepatic biliary duct dilatation seen. GALLBLADDER: Surgically absent. COMMON BILE DUCT: Normal in caliber measuring 0.5 cm in diameter. RIGHT KIDNEY: Normal. No hydronephrosis. No renal calculi or focal parenchymal lesions. The kidney measures 10.7 cm in maximum dimension. FREE FLUID: None. US/US abdomen limited IMPRESSION: Hepatic steatosis. Otherwise unremarkable right upper quadrant ultrasound. THE CORRESPONDENCE On 06/29/23 @ 15:43 Lin Mcgill Wrote To SurjitJanuary Appt was moved to 07/06/23. On 06/29/23 @ 10:17 SurjitAnna Wrote To Lin Mcgill She was post to have a 6 week appointment with me and it looks like she was scheduled for 6 months. Please try to get her in in the next couple of weeks. On 06/29/23 @ 09:49 Fadumo Bennett Wrote To Anna Eddy (3) Patient called saying she is been with a lot of rectal bleeding and also chronic abdominal pain. I see that she saw Anna Eddy at the office on 06/17/2024 and also she is having a follow up on 12/16/2023. Anna order an US but the appt is not made yet. Patient phone # is [phone] TODAYS VISIT She was recently hospitalized for CHF, this and gastropathy may be the source of her past pain?? Will review records. Review of the record seems to show some doubt as to whether she actually had CHF although the echo did show a hyperdynamic left ventricular ejection volume that could indicate a lack of relaxation which I suppose could lead to right-sided heart failure. It does not appear that any coagulating bath mixer was consulted for an opinion so I am uncertain if this is contributing to her gastric issues. She continues to have right flank pain that goes around to her back. This is worse in the afternoon and evening and is worse with prolonged sitting. She is eating well and the pain has no r/t eating, she also is moving her bowels well. Again this sounds more musculoskeletal than GI in nature as I had suspected in the past. She has the US upcoming that was ordered specifically for her RLQ abd lump. This is scheduled for 07/11. She does not know if she has been getting her protonix for bid. I ask her to bring her meds to her next visit. ROV 4 weeks. [facility] Medical History Essential hypertension Acute diarrhea Pre-op examination Cervical radiculopathy Rash of foot Kiera albicans infection Cervicalgia Left shoulder pain Environmental allergies Hospital discharge follow-up MARY on CPAP Elevated red blood cell count Screening for hyperlipidemia Chronic pain syndrome Lumbar pain Encounter for annual routine gynecological examination Multiple air fluid levels of small intestine determined by X-ray Abdominal bloating Hypothyroid Sleep apnea Abdominal cramping Edema Anxiety with depression Chronic pain (Unknown) Gastroparesis Left knee pain Hypothyroidism Bilateral shoulder pain Hyperlipidemia LDL goal <70 Degeneration, intervertebral disc, cervical Spondylosis of cervical spine at multiple levels without myelopathy Sleep apnea Renal calculi Incontinence Goiter Disc degeneration, lumbar Spondylosis of lumbar region without myelopathy or radiculopathy Arthropathy of facet joint Insomnia LUDY (generalized anxiety disorder) Moderately severe recurrent major depression Diabetes mellitus Chronic pain syndrome Morbid (severe) obesity due to excess calories Fibromyalgia Small bowel motility disorder Chronic idiopathic constipation Asthma Surgical History History of knee replacement procedure of right knee History of hernia surgery Hx of colonoscopy History of esophagogastroduodenoscopy (EGD) History of cholecystectomy Delivery by section History of hysterectomy Family History Father Past heart attack Anxiety Mother MOF (multiple organ failure) Brother HIV (human immunodeficiency virus infection) Sister Ovarian cancer Lupus Bone cancer Uterine cancer Tumor Daughter Guillain-[place] Sister Lupus History of open heart surgery Family/Other Depression FH: mental illness Maternal Aunt Breast cancer Maternal Aunt Tumor Social History Household Members: None Household Members Other:: Housing: Apartment Are you a primary care program director to a significant other at home: No 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) Alcohol intake: never Patient Tobacco Use Status: Never used Tobacco e-Cigarette/Vaping Use: Never Used Second Hand Smoke Exposure: Yes Advance Directives Date on File: 12/08/21 service: No Current occupational status: unemployed and disabled Cognitive needs: No Hearing needs: No Vision needs: No Review of Systems Const Reports fatigue, Denies fever(s), Reports headache(s), Denies night sweats, Denies poor appetite and Denies weight loss ENT Reports Normal hearing present, Denies dental pain, Denies dysphagia, Reports headache(s), Denies hearing loss, Denies mouth pain, Denies odynophagia, Denies throat swelling, Denies tongue swelling and Reports other (Dentition adequate) Card Reports chest pain, Reports leg edema and Reports dyspnea Resp Reports dyspnea GI Reports abdominal pain, Denies melena, Denies bloating, Denies hematochezia, Denies constipation, Denies GI cramping, Denies dysphagia, Denies excessive flatus, Denies early satiety, Reports heartburn, Denies diarrhea, Denies nausea, Denies odynophagia, Denies vomiting and Denies hematemesis Reports flank pain Musc Reports back pain and Reports myalgias Skin/Breast Denies pruritus, Denies lesions, Denies rash and Denies jaundice Neuro Reports Normal hearing present, Denies Abnormal speech present, Reports he adache(s) and Reports tremor(s) Psych Reports anxiety Endo Reports fatigue Aller/Immun Denies throat swelling and Denies tongue swelling Physical Exam Vital Signs: Last Vital Signs Pulse 78 07/07/23 13:41 BP 126/68 07/07/23 13:41 BMI result Body Mass Index 37.4 Const General: cooperative, no acute distress, well developed and well groomed Nutritional Appearance: well nourished and obese Orientation/consciousness: oriented to person, oriented to place and oriented to time Limitations: No language barrier and ambulation with cane HEENT Head: Yes normocephalic and Yes atraumatic Eyes General: appearance normal, both eyes and all related structures Pupils: Equal, round and reactive pupils present Neck Neck: Yes normal visual inspection and Yes no lymphadenopathy Thyroid: Thyroid normal Resp Effort & Inspection: normal respiratory effort and able to speak in complete sentences Auscultation: clear to auscultation bilaterally Cardio Rate: regular rate Rhythm: regular rhythm Heart sounds: Normal, physiologic split S2 sound present Peripheral pulses: radial pulses present and posterior tibial pulses present GI Inspection: No distended, Yes Abdominal panniculus present and Yes obesity Palpation (GI): Soft to palpation, Tenderness to palpation present (GI) in the RLQ, no guarding, not rigid and No hepatosplenomegaly present Percussion: Yes normal to percussion Auscultation: normal bowel sounds Rectal Exam - Female: deferred Skin General skin exam: no rashes or lesions noted, turgor normal, skin not dry, no jaundice, No spider nevi and no striae Rashes: no rashes Nails: normal Neuro General: oriented to person, oriented to place and oriented to time Cranial nerves: Yes Equal, round and reactive pupils present and Yes Normal hearing present Speech: No Abnormal speech present Extrem General: Yes normal to inspection, No clubbing, No cyanosis and No edema Psych Appearance: grossly normal and well kempt Mental Status: mental status grossly normal Speech and movement: Normal speech and movement present Affect: normal affect Attitude: cooperative Thought process: Normal thought process present and not confabulating Thought content: Normal thought content present Insight: Limited insight present (Psych) Judgement: Limited judgement present (Psych) Assessment & Plan Assessment & Plan (1) Erosive esophagitis: Code(s): K22.10 - Ulcer of esophagus without bleeding Plan: She was recently hospitalized for CHF, this and gastropathy may be the source of her past pain?? Will review records. Review of the record seems to show some doubt as to whether she actually had CHF although the echo did show a hyperdynamic left ventricular ejection volume that could indicate a lack of relaxation which I suppose could lead to right-sided heart failure. It does not appear that any coagulating bath mixer was consulted for an opinion so I am uncertain if this is contributing to her gastric issues. She continues to have right flank pain that goes around to her back. This is worse in the afternoon and evening and is worse with prolonged sitting. She is eating well and the pain has no r/t eating, she also is moving her bowels well. Again this sounds more musculoskeletal than GI in nature as I had suspected in the past. She has the US upcoming that was ordered specifically for her RLQ abd lump. This is scheduled for 07/11. She does not know if she has been getting her protonix for bid. I ask her to bring her meds to her next visit. ROV 4 weeks. (2) GERD (gastroesophageal reflux disease): Code(s): K21.9 - Gastro-esophageal reflux disease without esophagitis (3) Right sided abdominal pain: Comment: Seems related to bloating and cramping Code(s): R10.9 - Unspecified abdominal pain (4) Diabetic gastroparesis: Comment: IMPRESSION: Delayed gastric emptying as described. Dictated By:Anatoly Montez MDSigned By:<Electronically signed by Anatoly Montez MD in [place]>05/08/22 Code(s): E11.43 - Type 2 diabetes mellitus with diabetic autonomic (poly)neuropathy; K31.84 - Gastroparesis (5) Chronic idiopathic constipation: Code(s): K59.04 - Chronic idiopathic constipation Coding Level of Care Code Est Pt Level 3 (50089) Diagnoses Erosive esophagitis K22.10 GERD (gastroesophageal reflux disease) K21.9 Right sided abdominal pain R10.9 Diabetic gastroparesis E11.43; K31.84 Chronic idiopathic constipation K59.04
[2023-07-07 13:41] VITALS: BP 126/68; PULSE 78; BMI 37.4
== END 2023-07-07 14:05 | disposition home or self-care (01) ==
PROVIDERS: PCP Internal Medicine; Visit Provider Nurse Practitioner
DX: K22.10 Ulcer of esophagus without bleeding (principal); K21.9 Gastro-esophageal reflux disease without esophagitis; R10.9 Unspecified abdominal pain; E11.43 Type 2 diabetes mellitus with diabetic autonomic (poly)neuropathy; K31.84 Gastroparesis; K59.04 Chronic idiopathic constipation
CPT/HCPCS: 99213

== ENCOUNTER → 2023-07-07 13:33 | Outpatient (BNVA) | payer OTHER, SELFPAY | PROVIDERS: PCP Internal Medicine; Visit Provider Nurse Practitioner | DX: K22.10 Ulcer of esophagus without bleeding (principal); K21.9 Gastro-esophageal reflux disease without esophagitis; R10.9 Unspecified abdominal pain; E11.43 Type 2 diabetes mellitus with diabetic autonomic (poly)neuropathy; K31.84 Gastroparesis; K59.04 Chronic idiopathic constipation | CPT/HCPCS: 99212 ==

== ENCOUNTER 2023-08-24 19:29 | Inpatient (IN) | payer OTHER, SELFPAY ==
--- NOTE | 2023-08-24 | ECG_ITS ---
Test Reason : CHESTPAIN Blood Pressure : / mmHG Vent. Rate : 119 BPM Atrial Rate : 119 BPM P-R Int : 134 ms QRS Dur : 068 ms QT Int : 326 ms P-R-T Axes : 031 048 053 degrees QTc Int : 458 ms Sinus tachycardia Nonspecific ST abnormality Abnormal ECG When compared with ECG of 30-JUN-2023 13:46, Vent. rate has increased BY [address] now depressed in Lateral leads Nonspecific T wave abnormality has replaced inverted T waves in Inferior leads T wave inversion no longer evident in Anterior leads QRS axis Shifted right Referred By: Generic ED Physician Electronically Signed By:VINNIE MCKINLEY MD
--- NOTE | ~2023-08-24 | CT_ITS ---
EXAMINATION: CT ABDOMEN AND PELVIS WITH CONTRAST CLINICAL INFORMATION: Right lower quadrant pain, question appendicitis COMPARISON: 01/06/2023 TECHNIQUE: Multidetector volumetric images were obtained from the superior aspect of the liver through the pubic symphysis following administration 85 mL of Omnipaque 350 intravenous contrast. Sagittal and coronal reformatted images were obtained on the technologist's workstation. Oral contrast: No This CT examination was performed using dose optimization techniques as appropriate, variously including the following: *Automated exposure control *Adjustment of mA and/or kV according to patient size (this includes techniques or standardized protocols for targeted exams where dose is matched to indication/reason for exam; i.e. extremities or head) *Use of iterative reconstruction technique DLP: 907 mGy-cm FINDINGS: LUNG BASES: Elevated right hemidiaphragm. Bibasilar subsegmental atelectasis. LIVER, GALLBLADDER, AND BILIARY TREE: The liver demonstrates hypoattenuation consistent with steatosis. No focal hepatic lesion or biliary ductal dilatation is identified. Patient is status post cholecystectomy. PANCREAS: Unremarkable. SPLEEN: Unremarkable. ADRENAL GLANDS: Unremarkable. KIDNEYS AND URETERS: Bilateral nephrograms are symmetric. No hydronephrosis or obstructing calculus identified. BLADDER: Mildly distended with mild adjacent stranding anteriorly. GASTROINTESTINAL TRACT: No evidence of bowel obstruction or significant wall thickening. The appendix is unremarkable. No free fluid or free air is seen. ABDOMINAL WALL: No significant hernia is appreciated. LYMPH NODES: Normal. VASCULAR: Unremarkable. PELVIC VISCERA: Patient appears to be status post hysterectomy. OSSEOUS STRUCTURES: Scattered degenerative changes in the spine. CT/CT abdomen pelvis w IV con IMPRESSION: 1. Normal appendix. 2. Mild stranding adjacent to the anterior urinary bladder, which could reflect cystitis in the proper clinical setting. Correlation with urinalysis is advised. 3. Hepatic steatosis.
--- NOTE | ~2023-08-24 | XR_ITS ---
EXAMINATION: XR CHEST, 2 VIEWS CLINICAL INFORMATION: Shortness of breath COMPARISON: 06/30/[address] dated 08/25/2023 TECHNIQUE: PA and lateral views of the chest were obtained. FINDINGS: Mild elevation of the right hemidiaphragm, unchanged. Linear platelike atelectasis is present at the right lung base posteriorly. Additional atelectasis in the medial aspect of the left lung base. No consolidation, pneumothorax, or pleural effusion. Cardiac and mediastinal contours are normal. Pulmonary vasculature is unremarkable. Trachea is midline. Osseous structures are unremarkable. XR/XR chest 2V IMPRESSION: Mild bibasilar atelectasis. No acute pulmonary findings. Mild elevation of the right hemidiaphragm, unchanged.
--- NOTE | 2023-08-24 19:52 | ED_ITS ---
HPI - General Adult General Chief complaint: Abdominal Pain Stated complaint: headache, dizzy, vomiting since yesterday Time Seen by Provider: 08/24/23 22:42 History of Present Illness HPI narrative: Patient 58 years old obese comes here for not feeling well since yesterday started with pain in the right lower abdomen radiating to the right flank with nausea and vomiting , diaphoresis history of diabetes and hypertension on metformin. Patient did have subjective fever at home with chills unable to eat anything all day no history of similar pain in the past Related Data Home Medications Medication Instructions Recorded Confirmed vaporizers #1 ea 10/10/20 07/16/23 clonidine HCl 0.1 mg tablet 0.1 mg PO TID PRN Agitation or 09/19/21 07/16/23 Anxiety mirtazapine 30 mg tablet 30 mg PO BEDTIME 06/23/22 07/16/23 insulin syringe-needle U-100 0.3 #10 ea 10/20/22 07/16/23 mL 31 gauge x 5/16 (BD Insulin Syringe Ultra-Fine) insulin lispro 100 unit/mL 7 unit subcut TID 06/30/23 07/16/23 subcutaneous solution lorazepam 1 mg tablet (Ativan) 1 mg PO BID anxiety 06/30/23 07/16/23 methocarbamol 750 mg tablet 750 mg PO QID PRN muscle spasm 06/30/23 07/16/23 metolazone 2.5 mg tablet 2.5 mg PO MOWEFR 06/30/23 07/16/23 dulaglutide 0.75 mg/0.5 mL 0.75 mg subcut QWEEK 07/07/23 07/16/23 [facility] Previous Rx's Medication Instructions Recorded lancets 28 gauge (FreeStyle #100 ea 05/23/21 Lancets) diabetic supplies, miscellan. #1 ea 12/03/21 flash glucose sensor (FreeStyle #1 ea 12/03/21 Julianne 2 Sensor kit) heating pads #1 ea 01/21/22 Gel mattress overlay #1 ea 01/28/22 miscellaneous medical supply #1 ea 03/10/22 pen needle, diabetic 31 gauge x #100 ea 04/10/22 3/16 (BD Ultra-Fine Mini Pen Needle) insulin syr/ndl U100 half desean 0.3 #100 ea 07/16/22 mL 31 gauge x 5/16 (BD Insulin Syringe Ultra-Fine (half unit)) blood pressure test kit-wrist #1 ea 08/13/22 duloxetine 60 mg capsule,delayed 90 mg (1.5 x 60 mg) PO DAILY 90 08/24/22 release days #135 caps blood sugar diagnostic (FreeStyle #100 ea 09/01/22 Lite Strips) blood-glucose meter (FreeStyle #1 ea 09/01/22 Lite Meter kit) walker #1 ea 09/01/22 insulin syringe-needle U-100 0.5 #100 ea 10/17/22 mL 31 gauge x 5/16 (BD Insulin Syringe Ultra-Fine) cane #1 ea 01/07/23 amlodipine 10 mg tablet 10 mg PO DAILY #90 tabs 02/22/23 metoprolol tartrate 50 mg tablet 50 mg PO BID 90 days #180 tabs 02/22/23 acetaminophen 650 mg 650 mg PO Q8H PRN arthritis pain 02/23/23 tablet,extended release (Tylenol #90 tabs Arthritis Pain) diabetic shoes and inserts #1 ea 03/04/23 dicyclomine 10 mg capsule 10 mg PO BID PRN for cramps #180 03/25/23 caps lidocaine 5 % topical patch 1 patch topical DAILY PRN pain 30 04/28/23 days #30 ea albuterol sulfate 2.5 mg/3 mL 2.5 mg (3 mL) inhalation QID PRN 04/30/23 (0.083 %) solution for nebulization shortness of breath or wheezing #75 mL hydroxyzine HCl 50 mg tablet 50 mg PO BEDTIME #90 tabs 05/03/23 Shower Chair #1 ea 05/15/23 Toilet seat riser #1 ea 05/15/23 meclizine 25 mg tablet 25 mg PO TID PRN dizziness 90 days 05/15/23 #270 tabs metformin 500 mg tablet 500 mg PO BID #180 tabs 05/15/23 gabapentin 800 mg tablet 800 mg PO TID 30 days #90 tabs 05/16/23 bumetanide 2 mg tablet 2 mg PO BID 30 days #60 tabs 06/10/23 metoclopramide HCl 10 mg tablet 10 mg PO QIDACHS #120 tabs 09/14/23 (Reglan) pantoprazole 40 mg tablet,delayed 40 mg PO BID 30 days #60 tabs 06/17/23 release (Protonix) sennosides 8.6 mg capsule (senna) 17.2 mg (2 x 8.6 mg) PO BEDTIME 06/17/23 constipation 90 days #180 tabs albuterol sulfate 90 mcg/actuation 2 puff PO Q6H PRN for wheezing #18 07/06/23 aerosol inhaler (Ventolin HFA) ea insulin glargine 100 unit/mL 15 unit (0.15 mL) subcut QPM 90 07/11/23 subcutaneous solution (Lantus days #13.5 mL U-100 Insulin) umeclidinium 62.5 mcg/actuation 1 inh inhalation DAILY 30 days #1 07/27/23 blister powder for inhalation ea (Incruse Ellipta) atorvastatin 10 mg tablet 10 mg PO BEDTIME 90 days #90 tabs 08/16/23 levothyroxine 112 mcg tablet 112 mcg PO DAILY 90 days #90 tabs 08/16/23 rizatriptan 5 mg tablet See Rx Instructions PO .COMPLEX 30 08/18/23 days #9 tabs Allergies Allergy/AdvReac Type Severity Reaction Status Date / Time Penicillins Allergy Severe swelling Verified 07/16/23 14:01 adhesive tape [ADHESIVE TAPE] Allergy Intermediate RASH Verified 07/16/23 14:01 amoxicillin [AMOXICILLIN] Allergy Intermediate RASH,SWELLI Verified 07/16/23 14:01 NG ibuprofen [From Motrin] Allergy Intermediate Hypertensio Verified 07/16/23 14:01 n latex Allergy Intermediate Rash Verified 07/16/23 14:01 Review of Systems 2 Review of Systems: Yes all other systems are reviewed and are negative [facility] Past Medical History Medical History Essential hypertension Acute diarrhea Pre-op examination Cervical radiculopathy Rash of foot Kiera albicans infection Cervicalgia Left shoulder pain Environmental allergies Hospital discharge follow-up MARY on CPAP Elevated red blood cell count Screening for hyperlipidemia Chronic pain syndrome Lumbar pain Encounter for annual routine gynecological examination Multiple air fluid levels of small intestine determined by X-ray Abdominal bloating Hypothyroid Sleep apnea Abdominal cramping Edema Anxiety with depression Chronic pain (Unknown) Gastroparesis Left knee pain Hypothyroidism Bilateral shoulder pain Hyperlipidemia LDL goal <70 Degeneration, intervertebral disc, cervical Spondylosis of cervical spine at multiple levels without myelopathy Sleep apnea Renal calculi Incontinence Goiter Disc degeneration, lumbar Spondylosis of lumbar region without myelopathy or radiculopathy Arthropathy of facet joint Insomnia LUDY (generalized anxiety disorder) Moderately severe recurrent major depression Diabetes mellitus Chronic pain syndrome Morbid (severe) obesity due to excess calories Fibromyalgia Small bowel motility disorder Chronic idiopathic constipation Asthma Surgical History History of knee replacement procedure of right knee History of hernia surgery Hx of colonoscopy History of esophagogastroduodenoscopy (EGD) History of cholecystectomy Delivery by section History of hysterectomy Family History Family History Father Past heart attack Anxiety Mother MOF (multiple organ failure) Brother HIV (human immunodeficiency virus infection) Sister Ovarian cancer Lupus Bone cancer Uterine cancer Tumor Daughter Guillain-[place] Sister Lupus History of open heart surgery Family/Other Depression FH: mental illness Maternal Aunt Breast cancer Maternal Aunt Tumor Social History Household Members: None Household Members Other:: Housing: Apartment Are you a primary childbirth and infant care teacher to a significant other at home: No Do you presently have visiting nurse or other home services: Yes ([employer]) Alcohol intake: never Patient Tobacco Use Status: Never used Tobacco Smoked in Last 30 Days: No e-Cigarette/Vaping Use: Never Used Second Hand Smoke Exposure: Yes Use of substances other than those prescribed or required for medical reasons: No Advance Directives: Yes Advance Directives on File: Yes Advance Directives Date on File: 12/08/21 Patient : No service: No Current occupational status: unemployed and disabled Cognitive needs: No Hearing needs: No Vision needs: No Physical Exam ED Vital Signs: Vital Signs - 24 hr 08/24/23 19:53 08/24/23 22:26 08/25/23 00:00 Temperature 98.4 F 98.4 F 97.5 F Pulse Rate 116 H 127 H 94 Respiratory Rate 20 22 H 19 Blood Pressure 165/103 H 122/89 157/88 H Pulse Oximetry 94 92 94 Oxygen Delivery Method Room Air Room Air BMI result Body Mass Index 39.8 Appearance: Alert. Oriented X3. In moderate distress. Eyes: PERRLA, No Nystagmus ENT: Pharynx normal. Oral Mucosa moist Neck: Normal inspection. Neck supple. CVS: Normal heart rate and rhythm. Pulses normal. Respiratory: No respiratory distress. Equal air entry bilateral, no wheezing/rales/rhonchi Abdomen: Soft , tenderness right lower abdomen with guarding diffuse tenderness suprapubic area Bowel sounds are present, no mass palpable, no CVA tenderness Skin: Skin warm and dry. Normal skin color. Normal skin turgor. Extremities: No lower extremity edema. No calf tenderness Neuro: Oriented X 3. No motor deficit. Course Course Course Narrative: This is an RME: Additional HPI, ROS, PE not included below will be deferred to primary provider. This is a 35-sxel-lpy-female, with a hx of asthma, diabetes, HLD, LUDY, fibromyalgia, presenting to the ER with complaints of nausea, vomiting, and abdominal pain. Patient endorsing subjective fevers and chills. Endorsing some constipation. Endorsing urinary frequency. Patient tachycardic in the 110s- 120s, patient afebrile. Hypertensive 165/103 tenderness palpation along the right lower quadrant. Also endorsing history of kidney stones, reports pain started in a right flank and has radiated forward. Plan: Labs, viral swabs, point of care glucose. Medications Administered Discontinued Medications Generic Name Dose Route Start Last Admin Trade Name Freq PRN Reason Stop Dose Admin Sodium Chloride 3,500 mls @ 1,166.6666 mls/hr 08/24/23 22:43 08/25/23 02:14 Ns IV 08/25/23 01:42 Infused .Q3H STA Infusion Ceftriaxone Sodium 2 gm/ 50 mls @ 100 mls/hr 08/24/23 22:44 08/24/23 23:42 Sodium Chloride IV 08/24/23 23:13 Infused ONCE ONE Infusion Metronidazole 500 mg in 100 mls @ 100 mls/hr 08/24/23 22:44 08/25/23 02:14 Flagyl IV 08/24/23 23:43 Infused ONCE ONE Infusion Iohexol 85 ml 08/25/23 01:02 08/25/23 01:05 Iohexol 350 Mg/Ml 100 Ml Infus..Btl IV 08/25/23 01:03 85 ml ONCE ONE Administration Morphine Sulfate 4 mg 08/24/23 23:53 08/25/23 00:30 Morphine Sulfate 4 Mg/Ml Cartridge IVPUSH 08/24/23 23:54 4 mg ONCE ONE Administration Protocol Ondansetron HCl 4 mg 08/24/23 23:53 08/25/23 00:30 Ondansetron Hcl 4 Mg/2 Ml Vial IVPUSH 08/24/23 23:54 4 mg ONCE ONE Administration Medical Decision Making Medical Decision Making [facility] Narrative: Patient with sepsis with lower abdominal pain etiology not clear received IV antibiotics and IV fluids patient also does take metformin may be the cause for lactic acidosis patient signed out to Dr. Rudd pending CT scan and urine result Patient's urine showed no evidence of infection. CT scan of the abdomen pelvis show question cystitis. There is no evidence of obstruction no evidence of appendicitis no evidence for perforation no evidence for abscess no evidence for diverticulitis question etiology of patient's elevated white count and abdominal pain. Given the setting will admit patient for closer monitoring. Case discussed with hospitalist. In stable condition Differential Diagnosis Differential Diagnoses: The differential diagnosis associated with the presentation includes Acute appendicitis/perforated appendicitis/11/perforated bowel/abscess/ovarian cyst/kidney stone/UTI with sepsis Admission/Observation Consideration of admission/observation: Escalation of care including admission/observation considered Consult Healthcare Provider Management of the patient was discussed with: Hospitalist Lab Data [facility] Lab Attestation statement: I reviewed the patient's lab results. 08/24/23 21:11 08/24/23 21:11 Labs: Lab Results 08/24/23 08/24/23 08/25/23 Range/Units 19:59 21:11 02:13 WBC 30.5 H* (4.8-10.8) X10*3/uL RBC 7.11 H D (4.20-5.50) X10*6/uL Hgb 15.3 D (12.0-16.0) g/dl Hct 51.3 H D (37.0-47.0) % MCV 72.2 L (80.0-98.0) fL MCH 21.5 L (27.0-33.0) pg MCHC 29.8 L (31.0-35.0) g/dl RDW 19.8 H (11.0-16.0) % Plt Count 525 H D (160-400) X10*3/uL MPV 10.3 (9.4-12.3) fL Immature Gran % (Auto) 1.0 H (0.0-0.4) % Neut % (Auto) 86.5 H (45-73) % Lymph % (Auto) 7.9 L (20-40) % [place] % (Auto) 4.0 (2-11) % Eos % (Auto) 0.4 (0-4) % Baso % (Auto) 0.2 (0-2) % Lymph # (Auto) 2.4 (1.2-4.9) X10*3/uL [place] # (Auto) 1.2 (0.1-1.2) X10*3/uL Eos # (Auto) 0.1 (0.0-0.4) X10*3/uL Baso # (Auto) 0.1 (0.0-0.2) X10*3/uL Abs Immat Gran (auto) 0.31 H (0.00-0.03) X10*3/uL Absolute Neuts (auto) 26.4 H (2.0-8.3) x10*3/uL Absolute Nucleated RBC 0.000 (0.0-0.012) X10*3/uL Nucleated RBC % (auto) 0.0 (0.0-0.2) /100WBC Smear Tech's Comments VERIFIED Sodium 140 (135-145) mmol/L Potassium 4.7 D (3.3-5.1) mmol/L Chloride 97 (96-108) mmol/L Carbon Dioxide 29 (22-29) mmol/L Anion Gap 19 (12-20) BUN 18 H (9-16) mg/dL Creatinine 1.33 (0.5-1.4) mg/dL Estim Creat Clear Calc 61.1 Estimated GFR 41 POC Glucose 182 H (60-115) mg/dL Random Glucose 173 H (60-115) mg/dL Lactic Acid 5.0 H* (0.5-2.0) mmol/L Lactic Acid F/U @ 2Hr 1.1 (0.5-2.0) mmol/L Calcium 11.1 H D (8.4-10.2) mg/dL Total Bilirubin 0.8 (0.0-1.0) mg/dL Direct Bilirubin 0.3 (0.0-0.5) mg/dL AST 17 (5-31) U/L ALT 18 (0-31) U/L Alkaline Phosphatase 129 H (39-117) U/L Total Protein 10.2 H (6.5-8.0) g/dL Albumin 4.9 (3.5-5.0) g/dL Lipase 28 (8-78) U/L Urine Color Urine Appearance Urine pH (5.0-9.0) Ur Specific [place] (1.005-1.025) Urine Protein (Neg-Trace) mg/dL Urine Glucose (UA) (Negative) mg/dL Urine Ketones (Negative) mg/dL Urine Blood (Negative) Urine Nitrite (Negative) Ur Leukocyte Esterase (Negative) Urine RBC (0-2) /HPF Urine WBC (0-5) /HPF Ur Squamous Epith Cells (0-2) /HPF Urine Bacteria (None Seen) Hyaline Casts (0-2) /LPF Influenza Type A (PCR) NEGATIVE (Negative) Influenza Type B (PCR) NEGATIVE (Negative) RSV RNA Qual (PCR) NEGATIVE (Negative) SARS-CoV-2 RNA (RT-PCR) NEGATIVE (Negative) 08/25/23 Range/Units 02:40 WBC (4.8-10.8) X10*3/uL RBC (4.20-5.50) X10*6/uL Hgb (12.0-16.0) g/dl Hct (37.0-47.0) % MCV (80.0-98.0) fL MCH (27.0-33.0) pg MCHC (31.0-35.0) g/dl RDW (11.0-16.0) % Plt Count (160-400) X10*3/uL MPV (9.4-12.3) fL Immature Gran % (Auto) (0.0-0.4) % Neut % (Auto) (45-73) % Lymph % (Auto) (20-40) % [place] % (Auto) (2-11) % Eos % (Auto) (0-4) % Baso % (Auto) (0-2) % Lymph # (Auto) (1.2-4.9) X10*3/uL [place] # (Auto) (0.1-1.2) X10*3/uL Eos # (Auto) (0.0-0.4) X10*3/uL Baso # (Auto) (0.0-0.2) X10*3/uL Abs Immat Gran (auto) (0.00-0.03) X10*3/uL Absolute Neuts (auto) (2.0-8.3) x10*3/uL Absolute Nucleated RBC (0.0-0.012) X10*3/uL Nucleated RBC % (auto) (0.0-0.2) /100WBC Smear Tech's Comments Sodium (135-145) mmol/L Potassium (3.3-5.1) mmol/L Chloride (96-108) mmol/L Carbon Dioxide (22-29) mmol/L Anion Gap (12-20) BUN (9-16) mg/dL Creatinine (0.5-1.4) mg/dL Estim Creat Clear Calc Estimated GFR POC Glucose (60-115) mg/dL Random Glucose (60-115) mg/dL Lactic Acid (0.5-2.0) mmol/L Lactic Acid F/U @ 2Hr (0.5-2.0) mmol/L Calcium (8.4-10.2) mg/dL Total Bilirubin (0.0-1.0) mg/dL Direct Bilirubin (0.0-0.5) mg/dL AST (5-31) U/L ALT (0-31) U/L Alkaline Phosphatase (39-117) U/L Total Protein (6.5-8.0) g/dL Albumin (3.5-5.0) g/dL Lipase (8-78) U/L Urine Color Yellow Urine Appearance Clear Urine pH 5.5 (5.0-9.0) Ur Specific [place] >= 1.030 H (1.005-1.025) Urine Protein 100 (2+) H (Neg-Trace) mg/dL Urine Glucose (UA) Negative (Negative) mg/dL Urine Ketones Negative (Negative) mg/dL Urine Blood Negative (Negative) Urine Nitrite Negative (Negative) Ur Leukocyte Esterase Negative (Negative) Urine RBC 0-2 (0-2) /HPF Urine WBC 0-5 (0-5) /HPF Ur Squamous Epith Cells 6-10 (0-2) /HPF Urine Bacteria Trace (None Seen) Hyaline Casts 0-2 (0-2) /LPF Influenza Type A (PCR) (Negative) Influenza Type B (PCR) (Negative) RSV RNA Qual (PCR) (Negative) SARS-CoV-2 RNA (RT-PCR) (Negative) Independent Interpretation I performed an independent interpretation of an: CT Scan Radiology Impression Discussion of test interpretation with radiology: I have reviewed the radiologist's reading. Discharge Plan Discharge Clinical Impression: Abdominal pain in female Patient Disposition: Admitted As Inpatient
[2023-08-24 19:53] VITALS: BP 165/103; PULSE 116; RESP 20; TEMP 36.9; O2SAT 94; BMI 39.8
[2023-08-24 20:04] LABS: Glucose, Whole Blood 182 mg/dL (60-115)
[2023-08-24 21:28] LABS: Basophils Absolute Auto 0.1 X10*3/uL (0.0-0.2); Basophils Percent Auto 0.2 % (0-2); Eosinophils Absolute Auto 0.1 X10*3/uL (0.0-0.4); Eosinophils Percent Auto 0.4 % (0-4); Hematocrit 51.3 % (37.0-47.0); Hemoglobin 15.3 g/dl (12.0-16.0); Imm Gran Abs Auto 0.31 X10*3/uL (0.00-0.03); Lymphocytes Absolute Auto 2.4 X10*3/uL (1.2-4.9); Lymphocytes Percent Auto 7.9 % (20-40); Mean Corpuscular HGB Conc 29.8 g/dl (31.0-35.0); Mean Corpuscular Hemoglobin 21.5 pg (27.0-33.0); Mean Corpuscular Volume 72.2 fL (80.0-98.0); Mean Platelet Volume 10.3 fL (9.4-12.3); Monocytes Absolute Auto 1.2 X10*3/uL (0.1-1.2); Neutrophils Absolute Auto 26.4 x10*3/uL (2.0-8.3); Neutrophils Percent Auto 86.5 % (45-73); Platelet Count 525 X10*3/uL (160-400); Red Blood Count 7.11 X10*6/uL (4.20-5.50); Red Cell Distribution Width 19.8 % (11.0-16.0); SCAN SMEAR FLAG 1
[2023-08-24 21:42] LABS: Alanine Aminotransferase 18 U/L (0-31); Albumin Level 4.9 g/dL (3.5-5.0); Alkaline Phosphatase 129 U/L (39-117); Anion Gap 19 (12-20); Aspartate Amino Transferase 17 U/L (5-31); Bilirubin Direct 0.3 mg/dL (0.0-0.5); Bilirubin Total 0.8 mg/dL (0.0-1.0); Blood Urea Nitrogen 18 mg/dL (9-16); Calcium 11.1 mg/dL (8.4-10.2); Carbon Dioxide 29 mmol/L (22-29); Chloride 97 mmol/L (96-108); Creatinine Clr Calc Pharmacy 61.1; Estimated Glomerular Filt Rate 41; Glucose Random 173 mg/dL (60-115); Lipase 28 U/L (8-78); Potassium 4.7 mmol/L (3.3-5.1); Sodium 140 mmol/L (135-145); Total Protein 10.2 g/dL (6.5-8.0)
--- NOTE | 2023-08-24 21:57 | PC.NURSE ---
critical lactic, 5.0, noticed Charge nurse Kendy and provide Dr Ordaz aware.
[2023-08-24 22:05] LABS: Influenza A PCR NEGATIVE (Negative); Influenza B PCR NEGATIVE (Negative); Resp Syncy Virus RNA Qual PCR NEGATIVE (Negative); SARS COV2 PCR INHOUSE NEGATIVE (Negative)
[2023-08-24 22:15] LABS: MANUAL DIFF FLAG SCAN; White Blood Count 30.5 X10*3/uL (4.8-10.8)
--- NOTE | 2023-08-24 22:21 | PC.NURSE ---
critical lab of wbc 30.5 reported to WARREN Coffman, charge nurse germaine and dr Montelongo.
[2023-08-24 22:22] LABS: SLIDE REVIEW VERIFIED
[2023-08-24 22:26] VITALS: BP 122/89; PULSE 127; RESP 22; TEMP 36.9; O2SAT 92
--- NOTE | 2023-08-24 22:40 | PC.NURSE ---
Patient was brought back from waiting room, probable sepsis protocol. MD Ordaz made aware of patient at 1041, MD aware of WBC, Lactic, and HR. Patient is resting on stretcher, respirations even and unlabored, skin pink warm and diaphoretic. Patient reports she is anxious and scared. This RN validated patient's feelings and stated that we will take good care of her. This RN placed 20g in RW
[2023-08-24] MEDS: SODIUM CHLORIDE 1166.67 ML IV (22:55)
[2023-08-24] MEDS: cefTRIAXone sodium 2 GM in 0.9 % Sodium Chloride 50 ML IV (23:00)
[2023-08-24 23:25] LABS: Reflex Lactate? Lactic Acid Added
[2023-08-25] VITALS (8 sets, daily range): BP systolic 106–157; BP diastolic 58–88; PULSE 94–128; RESP 18–20; TEMP 36.1–37.1; O2SAT 90–94
[2023-08-25] MEDS: Morphine Sulfate 4 MG/ML CARTRIDGE IVPUSH ×5 (00:30→17:26)
[2023-08-25] MEDS: ondansetron HCL 4 MG/2 ML VIAL IVPUSH (00:30)
[2023-08-25] MEDS: metroNIDAZOLE/NS 500 MG/100 ML PIGGYBACK 100 MG IV ×4 (00:31→21:22)
[2023-08-25] MEDS: iohexoL 350 MG/ML 100 ML INFUS..BTL 85 ML IV (01:05)
[2023-08-25 02:32] LABS: ~Lactic Acid-LAB USE ONLY 1.1 mmol/L (0.5-2.0)
[2023-08-25 02:46] LABS: Appearance Urine Clear; Color Urine Yellow; Glucose Urine UA Negative (Negative); Leukocyte Esterase Urine Negative (Negative); Nitrite Urine Negative (Negative); PH 5.5 (5.0-9.0); Specific Gravity - Urine >= 1.030 (1.005-1.025); UMIC TRIGGER UACC YES; Urine Blood Negative (Negative); Urine Ketones Negative (Negative); Urine Protein 100 (2+) mg/dL (Neg-Trace)
[2023-08-25 03:32] LABS: Bacteria Urine Trace (None Seen); Hyaline Casts Urine 0-2 /LPF (0-2); RBC Urine 0-2 /HPF (0-2); WBC Urine 0-5 /HPF (0-5)
--- NOTE | 2023-08-25 04:00 | P.HPHOSP_ITS ---
History of Present Illness Date of Service: 08/25/23 Chief Complaint: Abdominal Pain, Nausea/vomiting This is a 58-year-old female with pertinent history of essential hypertension, mixed hyperlipidemia, mood disorder, insulin-dependent diabetes mellitus, hypothyroidism, gastroesophageal reflux disease, congestive heart failure with preserved ejection fraction, MARY on CPAP, asthma not on home oxygen who presents to the emergency department for evaluation of abdominal pain. Patient states that the right lower quadrant abdominal pain started 2 days prior to presentation. It is worse with p.o. intake, radiating to the back, constant and without any relieving factors. She also has associated nausea and multiple episodes of nonbloody emesis. Unable to tolerate p.o. intake. Does endorse chills. No diarrhea. Patient has a history of cholecystectomy. No chest discomfort, palpitations, shortness of breath, changes in urinary or bowel habits. In the emergency department, patient had elevated white blood cell count and was SIRS+ Review of Systems 2 Constitutional: Constitutional: Reports fatigue, Reports lethargy, Reports poor appetite and Reports weakness Cardiovascular: Cardiovascular: Reports no additional cardiovascular complaints Respiratory: Respiratory: Reports no additional respiratory complaints Gastrointestinal: Gastrointestinal: Reports abdominal pain, Reports nausea and Reports vomiting Neurologic: Reports weakness Endocrine: Endocrine: Reports fatigue PMFSH Medical History Essential hypertension Acute diarrhea Pre-op examination Cervical radiculopathy Rash of foot [place] albicans infection Cervicalgia Left shoulder pain Environmental allergies Hospital discharge follow-up MARY on CPAP Elevated red blood cell count Screening for hyperlipidemia Chronic pain syndrome Lumbar pain Encounter for annual routine gynecological examination Multiple air fluid levels of small intestine determined by X-ray Abdominal bloating Hypothyroid Sleep apnea Abdominal cramping Edema Anxiety with depression Chronic pain (Unknown) Gastroparesis Left knee pain Hypothyroidism Bilateral shoulder pain Hyperlipidemia LDL goal <70 Degeneration, intervertebral disc, cervical Spondylosis of cervical spine at multiple levels without myelopathy Sleep apnea Renal calculi Incontinence Goiter Disc degeneration, lumbar Spondylosis of lumbar region without myelopathy or radiculopathy Arthropathy of facet joint Insomnia LUDY (generalized anxiety disorder) Moderately severe recurrent major depression Diabetes mellitus Chronic pain syndrome Morbid (severe) obesity due to excess calories Fibromyalgia Small bowel motility disorder Chronic idiopathic constipation Asthma Family History Father Past heart attack Anxiety Mother MOF (multiple organ failure) Brother HIV (human immunodeficiency virus infection) Sister Ovarian cancer Lupus Bone cancer Uterine cancer Tumor Daughter Guillain-[place] Sister Lupus History of open heart surgery Family/Other Depression FH: mental illness Maternal Aunt Breast cancer Maternal Aunt Tumor Surgical History History of knee replacement procedure of right knee History of hernia surgery Hx of colonoscopy History of esophagogastroduodenoscopy (EGD) History of cholecystectomy Delivery by section History of hysterectomy Household Members: None Household Members Other:: Housing: Apartment Are you a primary critical care clinical nurse specialist to a significant other at home: No Do you presently have visiting nurse or other home services: 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) Alcohol intake: never Patient Tobacco Use Status: Never used Tobacco Smoked in Last 30 Days: No e-Cigarette/Vaping Use: Never Used Second Hand Smoke Exposure: Yes Use of substances other than those prescribed or required for medical reasons: No Advance Directives: Yes Advance Directives on File: Yes Advance Directives Date on File: 12/08/21 Patient : No service: No Current occupational status: unemployed and disabled Cognitive needs: No Hearing needs: No Vision needs: No Meds Allergies Allergy/AdvReac Type Severity Reaction Status Date / Time Penicillins Allergy Severe swelling Verified 07/16/23 14:01 adhesive tape [ADHESIVE TAPE] Allergy Intermediate RASH Verified 07/16/23 14:01 amoxicillin [AMOXICILLIN] Allergy Intermediate RASH,SWELLI Verified 07/16/23 14:01 NG ibuprofen [From Motrin] Allergy Intermediate Hypertensio Verified 07/16/23 14:01 n latex Allergy Intermediate Rash Verified 07/16/23 14:01 Home Medications Medication Instructions Recorded Confirmed Last Taken Type albuterol sulfate 90 mcg/actuation inhalation 08/25/23 Unknown History aerosol inhaler (Ventolin HFA) atorvastatin 10 mg tablet 10 mg PO BEDTIME 08/25/23 08/25/23 Unknown History clonidine HCl 0.1 mg tablet 08/25/23 Unknown History doxepin 25 mg capsule 25 - 50 mg PO BEDTIME insomnia 08/25/23 08/25/23 Unknown History dulaglutide 0.75 mg/0.5 mL 0.75 mg subcut QWEEK 08/25/23 08/25/23 Unknown History subcutaneous pen injector (Trulicity) hydroxyzine HCl 25 mg tablet 25 mg PO TID PRN itch 08/25/23 08/25/23 Unknown History hydroxyzine HCl 50 mg tablet 50 mg PO TID itch 08/25/23 08/25/23 Unknown History insulin glargine 100 unit/mL 15 unit subcut QPM 08/25/23 08/25/23 Unknown History subcutaneous solution (Lantus U-100 Insulin) insulin lispro 100 unit/mL 5 unit subcut TID 08/25/23 08/25/23 Unknown History subcutaneous solution levothyroxine 112 mcg tablet 112 mcg PO DAILY 08/25/23 08/25/23 Unknown History metformin 500 mg tablet 500 mg PO BID 08/25/23 08/25/23 Unknown History rizatriptan 5 mg tablet mg 08/25/23 Unknown History torsemide 20 mg tablet 40 mg PO BID 08/25/23 08/25/23 Unknown History trazodone 150 mg tablet 150 mg PO BEDTIME PRN insomnia 08/25/23 08/25/23 Unknown History umeclidinium 62.5 mcg/actuation 1 inh inhalation DAILY 08/25/23 08/25/23 Unknown History blister powder for inhalation (Incruse Ellipta) Physical Exam 2 Vital Signs and Narrative: Vital Signs: Last Vital Signs Temp 97.5 F 08/25/23 00:00 Pulse 94 08/25/23 00:00 Resp 19 08/25/23 00:00 BP 157/88 H 08/25/23 00:00 Pulse Ox 94 08/25/23 00:00 O2 Del Method Room Air 08/25/23 00:00 BMI result Body Mass Index 39.8 Middle-aged female lying in bed in mild distress Neck supple, no JVD Regular rate and rhythm, S1-S2 heard Decreased breath sounds at bases Abdomen with right lower quadrant tenderness, no guarding, no rigidity, no rebound tenderness Patient is awake, alert and oriented to self, place, time and person ; no focal motor deficit Psych: Normal mood No pedal edema Results Labs 08/24/23 21:11 08/24/23 21:11 Labs: Laboratory Results - last 24 hr 08/24/23 08/24/23 08/25/23 19:59 21:11 02:13 MCV 72.2 L MCH 21.5 L MCHC 29.8 L RDW 19.8 H Plt Count 525 H D MPV 10.3 Immature Gran % (Auto) 1.0 H Neut % (Auto) 86.5 H Lymph % (Auto) 7.9 L [place] % (Auto) 4.0 Eos % (Auto) 0.4 Baso % (Auto) 0.2 Lymph # (Auto) 2.4 [place] # (Auto) 1.2 Eos # (Auto) 0.1 Baso # (Auto) 0.1 Abs Immat Gran (auto) 0.31 H Absolute Neuts (auto) 26.4 H Absolute Nucleated RBC 0.000 Nucleated RBC % (auto) 0.0 Smear Tech's Comments VERIFIED Anion Gap 19 Estim Creat Clear Calc 61.1 Estimated GFR 41 POC Glucose 182 H Random Glucose 173 H Lactic Acid 5.0 H* Lactic Acid F/U @ 2Hr 1.1 Calcium 11.1 H D Total Bilirubin 0.8 Direct Bilirubin 0.3 AST 17 ALT 18 Alkaline Phosphatase 129 H Total Protein 10.2 H Albumin 4.9 Lipase 28 Urine Color Urine Appearance Urine pH Ur Specific [place] Urine Protein Urine Glucose (UA) Urine Ketones Urine Blood Urine Nitrite Ur Leukocyte Esterase Urine RBC Urine WBC Ur Squamous Epith Cells Urine Bacteria Hyaline Casts Influenza Type A (PCR) NEGATIVE Influenza Type B (PCR) NEGATIVE RSV RNA Qual (PCR) NEGATIVE SARS-CoV-2 RNA (RT-PCR) NEGATIVE 08/25/23 02:40 MCV MCH MCHC RDW Plt Count MPV Immature Gran % (Auto) Neut % (Auto) Lymph % (Auto) [place] % (Auto) Eos % (Auto) Baso % (Auto) Lymph # (Auto) [place] # (Auto) Eos # (Auto) Baso # (Auto) Abs Immat Gran (auto) Absolute Neuts (auto) Absolute Nucleated RBC Nucleated RBC % (auto) Smear Tech's Comments Anion Gap Estim Creat Clear Calc Estimated GFR POC Glucose Random Glucose Lactic Acid Lactic Acid F/U @ 2Hr Calcium Total Bilirubin Direct Bilirubin AST ALT Alkaline Phosphatase Total Protein Albumin Lipase Urine Color Yellow Urine Appearance Clear Urine pH 5.5 Ur Specific [place] >= 1.030 H Urine Protein 100 (2+) H Urine Glucose (UA) Negative Urine Ketones Negative Urine Blood Negative Urine Nitrite Negative Ur Leukocyte Esterase Negative Urine RBC 0-2 Urine WBC 0-5 Ur Squamous Epith Cells 6-10 Urine Bacteria Trace Hyaline Casts 0-2 Influenza Type A (PCR) Influenza Type B (PCR) RSV RNA Qual (PCR) SARS-CoV-2 RNA (RT-PCR) Imaging Radiologist's Impressions: Impressions Abdomen/Pelvis CT 08/25/23 01:10 IMPRESSION: 1. Normal appendix. 2. Mild stranding adjacent to the anterior urinary bladder, which could reflect cystitis in the proper clinical setting. Correlation with urinalysis is advised. 3. Hepatic steatosis. Assessment and Plan (1) Abdominal pain in female: Status: Acute (2) SIRS (systemic inflammatory response syndrome): Status: Acute Plan This is a 58-year-old female with pertinent history of essential hypertension, mixed hyperlipidemia, mood disorder, insulin-dependent diabetes mellitus, hypothyroidism, gastroesophageal reflux disease, congestive heart failure with preserved ejection fraction, MARY on CPAP, asthma not on home oxygen who presents to the emergency department for evaluation of abdominal pain. #. Abdominal pain, nausea, vomiting with SIRS+: Resuscitated with IV crystalloids. Will admit patient and initiate empiric IV antibiotics. Lactic acid and blood culture obtained. Imaging without acute abnormality and UA not concerning for acute UTI. Unclear etiology, may need specialist consult if symptoms continue. Obtaining TSH and a.m. cortisol #. Acute lactic acidosis due to sepsis #. Insulin-dependent diabetes mellitus with hyperglycemia: Initiating basal bolus insulin regimen #. Congestive heart failure with preserved ejection fraction: Hold diuretics in the setting of sepsis. No decompensation during admission #. Essential hypertension: Hold antihypertensives in the setting of sepsis. Resume as appropriate #. MARY on CPAP at bedtime #. Hypothyroidism: On Synthroid. TSH pending #. Mood disorder: Continue home mood stabilizers #. Asthma: No exacerbation during admission. Continue home inhalers #. Mixed hyperlipidemia: On statin Med rec pending DVT prophylaxis: Lovenox Admit as inpatient and will require two night minimum hospital stay for IV antibiotics (as above), which is not possible in a lesser acute setting. Quality Stroke Does the patient have a stroke diagnosis?: No VTE Prior VTE?: No VTE Risk Level:: Medical - moderate - high VTE Device Contraindication: Treatment Not Indicated VTE Drug Contraindication: N/A - Med Ordered
--- NOTE | 2023-08-25 04:38 | PC.NURSE ---
Med Rec completed at bedside with patient. Patient uncertain of exact doses, names and when her medications were last taken. Per patient, she has no list and noone to call who would have more information. Pt medicated for 10/10 abdominal pain, aware of plan to admit.
[2023-08-25] MEDS: Insulin Glargine,Hum.rec.anlog 100 UNIT/ML 10 ML VIAL 15 UNIT SUBCUT ×2 (05:19→19:37)
[2023-08-25 05:31] LABS: Glucose, Whole Blood 133 mg/dL (60-115)
[2023-08-25 05:37] LABS: Thyroid Stimulating Hormone 1.62 uIU/mL (0.32-4.0)
[2023-08-25] MEDS: Enoxaparin Sodium 40 MG/0.4 ML SYRINGE SUBCUT (05:59)
[2023-08-25 06:06] LABS: Basophils Absolute Auto 0.1 X10*3/uL (0.0-0.2); Basophils Percent Auto 0.2 % (0-2); Hemoglobin 13.2 g/dl (12.0-16.0); Imm Gran Abs Auto 0.23 X10*3/uL (0.00-0.03); Imm Gran Pct Auto 0.9 % (0.0-0.4); Lymphocytes Absolute Auto 3.5 X10*3/uL (1.2-4.9); Lymphocytes Percent Auto 13.1 % (20-40); MANUAL DIFF FLAG SCAN; Mean Corpuscular Hemoglobin 21.4 pg (27.0-33.0); Mean Corpuscular Volume 71.2 fL (80.0-98.0); Mean Platelet Volume 10.3 fL (9.4-12.3); Monocytes Absolute Auto 1.6 X10*3/uL (0.1-1.2); Monocytes Percent Auto 6.1 % (2-11); Neutrophils Percent Auto 79.7 % (45-73); Platelet Count 404 X10*3/uL (160-400); Red Blood Count 6.18 X10*6/uL (4.20-5.50); Red Cell Distribution Width 19.1 % (11.0-16.0); SCAN SMEAR FLAG 1; White Blood Count 26.3 X10*3/uL (4.8-10.8)
[2023-08-25 06:32] LABS: SLIDE REVIEW VERIFIED
[2023-08-25 06:39] LABS: Cortisol Random 14.4 ug/dL
[2023-08-25 06:43] LABS: Anion Gap 17 (12-20); Blood Urea Nitrogen 24 mg/dL (9-16); Calcium 9.4 mg/dL (8.4-10.2); Carbon Dioxide 25 mmol/L (22-29); Chloride 102 mmol/L (96-108); Creatinine Clr Calc Pharmacy 65.6; Estimated Glomerular Filt Rate 45; Glucose Random 122 mg/dL (60-115); Potassium 4.1 mmol/L (3.3-5.1); Sodium 140 mmol/L (135-145)
--- NOTE | 2023-08-25 07:46 | PHA.MEDREC ---
Pharmacy Consult ? Medication Reconciliation Pharmacy has completed the medication reconciliation. Reviewed med rec done by nursing, per nursing note she spoke to patient directly regarding medications
[2023-08-25 08:03] LABS: Glucose, Whole Blood 108 mg/dL (60-115)
[2023-08-25] MEDS: hydrOXYzine HCL 50 MG TABLET PO ×3 (09:37→19:37)
[2023-08-25] MEDS: Torsemide 20 MG TABLET 40 MG PO ×2 (09:37→19:36)
[2023-08-25] MEDS: Levothyroxine Sodium 112 MCG TABLET PO (09:38)
--- NOTE | 2023-08-25 09:46 | PC.NURSE ---
patient has paper work order to hold metformin due to CT scan contrast. see MAR
--- NOTE | 2023-08-25 11:02 | PM.EVENT ---
Event Note Date of Service: 08/25/23 Event Note: Pt seen and examined, she was admitted this morning with abdominal pain, WBC of 26, lactic acidosis, no diarrhea and no fever, HR 128. CT shows some Mild stranding adjacent to the anterior urinary bladder, she has persistent pain of 8/10, Abdomen is soft, no distention no tenderness with + bowel sounds, no guarding--eesentially non surgical abdomen. Plan continue empiric Abx (Ceftriaxone + Flagyl), request Gi consult, IVF. Med rec completed. Time Spent With Patient Time: Total time managing care of this patient today ____ minutes.
[2023-08-25 11:20] LABS: Glucose, Whole Blood 137 mg/dL (60-115)
[2023-08-25] MEDS: 0.9 % Sodium Chloride 1,000 ML 100 ML IVCONT ×2 (11:21→19:46)
[2023-08-25] MEDS: Butalb/Acetamin/Caff 50/325/40 TABLET 1 TAB PO ×2 (14:37→19:38)
--- NOTE | 2023-08-25 14:58 | MHC.CM.PN ---
CM MET WITH PT TO COMPLETE CUSTOMER SERVICE VOICE [facility] WAS PRESENT, HOWEVER NOT REQUIRED PT REPORTS SHE LIVES ALONE AND HAS 2 HRS OF [employer] SERVICES PER DAY SHE USES A CPAP FOR DME PT DECLINES TO COMPLETE A HCP PCP: CARLOS KRISHNAMURTHY DCP: HOME RESUME [employer] PT WILL ARRANGE TRANSPORT
[2023-08-25 16:09] LABS: Glucose, Whole Blood 120 mg/dL (60-115)
--- NOTE | 2023-08-25 16:56 | PM.GICN ---
History of Present Illness Data of Consult Service Date: 08/25/23 Requesting physician: Vinod [facility] Primary Care Provider: Jenny Bell MD HPI Reason for consult: brea arora 58-year-old female with history of essential hypertension, mixed hyperlipidemia, mood disorder, insulin-dependent diabetes mellitus, hypothyroidism, gastroesophageal reflux disease, congestive heart failure with preserved ejection fraction, MARY on CPAP, asthma who I am seeing for assessment for abdominal pain. Patient noted 5 d of gradually worsening pain in LLQ and suprapubic area, crampy, 10/10 in severity without releiving or exacerbating factors and associated with nausea and non bloody emesis. she is unable to tolerate PO intake. Admits to constipation for several days, no diarrhea, no bloody stools. She denies chest discomfort, palpitations, shortness of breath, changes in urinary or bowel habits. LABS: WCC:30 HGB 15 MCV 72 ca; 11 alk phos: 127 Total protein: 10.2 lactate: 5 CT: inflammed loop of bowel adjacent to bladder with surrounding stranding, possible diverticulosis, constipation Review of Systems Review of Systems: Constitutional : No Weight loss, No Fever, No Chills ENT/Mouth : No sore throat, No Rhinorrhea Eyes: No Swelling, No Redness Cardiovascular : No Chest Pain, No SOB, No Edema Respiratory :+ Cough, No Sputum, No Wheezing Gastrointestinal : see HPI Genitourinary : NO Dysuria, No Urinary Frequency, No Hematuria, No Urgency Musculoskeletal : No joint pain, No Myalgias, No Joint Swelling Skin : No Skin Lesions, No rash Neuro : No Weakness, No Numbness, No Dizziness, No Headache Psych : No Anxiety/Panic, No Depression Heme/Lymph: No Bruising, No Lymphadenopathy Endocrine : No Polyuria, No Polydipsia All other systems reviewed and are negative. [facility] Past Medical History Medical History Essential hypertension Acute diarrhea Pre-op examination Cervical radiculopathy Rash of foot Kiera albicans infection Cervicalgia Left shoulder pain Environmental allergies Hospital discharge follow-up MARY on CPAP Elevated red blood cell count Screening for hyperlipidemia Chronic pain syndrome Lumbar pain Encounter for annual routine gynecological examination Multiple air fluid levels of small intestine determined by X-ray Abdominal bloating Hypothyroid Sleep apnea Abdominal cramping Edema Anxiety with depression Chronic pain (Unknown) Gastroparesis Left knee pain Hypothyroidism Bilateral shoulder pain Hyperlipidemia LDL goal <70 Degeneration, intervertebral disc, cervical Spondylosis of cervical spine at multiple levels without myelopathy Sleep apnea Renal calculi Incontinence Goiter Disc degeneration, lumbar Spondylosis of lumbar region without myelopathy or radiculopathy Arthropathy of facet joint Insomnia LUDY (generalized anxiety disorder) Moderately severe recurrent major depression Diabetes mellitus Chronic pain syndrome Morbid (severe) obesity due to excess calories Fibromyalgia Small bowel motility disorder Chronic idiopathic constipation Asthma Family History Family History Father Past heart attack Anxiety Mother MOF (multiple organ failure) Brother HIV (human immunodeficiency virus infection) Sister Ovarian cancer Lupus Bone cancer Uterine cancer Tumor Daughter Guillain-Lac[place] Sister Lupus History of open heart surgery Family/Other Depression FH: mental illness Maternal Aunt Breast cancer Maternal Aunt Tumor Surgical History Surgical History History of knee replacement procedure of right knee History of hernia surgery Hx of colonoscopy History of esophagogastroduodenoscopy (EGD) History of cholecystectomy Delivery by section History of hysterectomy Social History Household Members: None Household Members Other:: Housing: Apartment Are you a primary geriatric personal care aide to a significant other at home: No Do you presently have visiting nurse or other home services: Yes ([employer]) Alcohol intake: never Patient Tobacco Use Status: Never used Tobacco e-Cigarette/Vaping Use: Never Used Second Hand Smoke Exposure: Yes Advance Directives Date on File: 12/08/21 service: No Current occupational status: unemployed and disabled Cognitive needs: No Hearing needs: No Vision needs: No Meds Allergies Allergy/AdvReac Type Severity Reaction Status Date / Time Penicillins Allergy Severe swelling Verified 07/16/23 14:01 adhesive tape [ADHESIVE TAPE] Allergy Intermediate RASH Verified 07/16/23 14:01 amoxicillin [AMOXICILLIN] Allergy Intermediate RASH,SWELLI Verified 07/16/23 14:01 NG ibuprofen [From Motrin] Allergy Intermediate Hypertensio Verified 07/16/23 14:01 n latex Allergy Intermediate Rash Verified 07/16/23 14:01 Active Medications: Current Medications Acetaminophen (Acetaminophen 325 Mg Tablet) 650 mg PO Q6H PRN PRN Reason: Pain, Mild (Pain Scale 1-3) Acetaminophen/Butalbital/Caffeine (Butalb/Acetamin/Caff 50/325/40 Tablet) 1 tab PO Q4H PRN PRN Reason: Pain, Moderate(Pain Scale 4-6) Last Admin: 08/25/23 14:37 Dose: 1 tab Albuterol Sulfate (Albuterol Sulfate 90 Mcg 8 Gm Inhaler) 1 puff INHALE Q4H PRN PRN Reason: Shortness Of Breath Or Wheezing Atorvastatin Calcium (Atorvastatin Calcium 10 Mg Tablet) 10 mg PO BEDTIME RADHA Clonidine HCl (Clonidine Hcl 0.1 Mg Tablet) 0.1 mg PO TID PRN; Protocol PRN Reason: Anxiety Dextrose (Dextrose 50 % 25 Gm/50 Ml Syringe) 25 gm IVPUSH Q15M PRN; Protocol PRN Reason: per Hypoglycemia Standing Ord. Doxepin HCl (Doxepin Hcl 25 Mg Capsule) 25 mg PO BEDTIME [facility] Enoxaparin Sodium (Enoxaparin Sodium 40 Mg/0.4 Ml Syringe) 40 mg SUBCUT Q24H [facility] Last Admin: 08/25/23 05:59 Dose: 40 mg Glucose (Glucose Gel 15 Gm Gel..Gram.) 15 gm PO Q15M PRN; Protocol PRN Reason: per Hypoglycemia Standing Ord. Hydroxyzine HCl (Hydroxyzine Hcl 25 Mg Tablet) 25 mg PO TID PRN PRN Reason: itch Hydroxyzine HCl (Hydroxyzine Hcl 50 Mg Tablet) 50 mg PO TID [facility] Last Admin: 08/25/23 14:37 Dose: 50 mg Ceftriaxone Sodium 1 gm/ (Sodium Chloride) 50 mls @ 100 mls/hr IV Q24H [facility] Metronidazole (Flagyl) 500 mg in 100 mls @ 100 mls/hr IV Q8H [facility] Last Infusion: 08/25/23 14:45 Dose: Infused Sodium Chloride (Ns) 1,000 mls @ 100 mls/hr IVCONT .Q10H [facility] Last Admin: 08/25/23 11:21 Dose: 100 mls/hr Insulin Glargine (Insulin Glargine,Hum.Rec.Anlog 100 Unit/Ml 10 Ml Vial) 15 unit SUBCUT BEDTIME [facility] Insulin Human Lispro (Insulin Lispro 100 Unit/Ml 3 Ml Vial) 0 unit SUBCUT QIDACHS [facility]; Protocol Last Admin: 08/25/23 11:26 Dose: Not Given Levothyroxine Sodium (Levothyroxine Sodium 112 Mcg Tablet) 112 mcg PO DAILY@0600 [facility] Last Admin: 08/25/23 09:38 Dose: 112 mcg Melatonin (Melatonin 3 Mg Tablet) 6 mg PO BEDTIME PRN PRN Reason: Insomnia Metformin HCl (Metformin Hcl 500 Mg Tablet) 500 mg PO BID [facility] Last Admin: 08/25/23 09:46 Dose: Not Given Morphine Sulfate (Morphine Sulfate 4 Mg/Ml Cartridge) 4 mg IVPUSH Q4H PRN; Protocol PRN Reason: Pain, Severe (Pain Scale 7-10) Last Admin: 08/25/23 13:45 Dose: 4 mg Ondansetron HCl (Ondansetron Hcl 4 Mg/2 Ml Vial) 4 mg IVPUSH Q8H PRN PRN Reason: Nausea and Vomiting Sodium Chloride (0.9 % Sodium Chloride Flush 3 Ml Syringe) 3 ml IVFLUSH QSHIFT [facility] Last Admin: 08/25/23 14:37 Dose: Not Given Tiotropium [place] (Tiotropium [place] 2.5 Mcg 1 Puff/2.5 Mcg Mist.Inhal) 2 puff [facility] Torsemide (Torsemide 20 Mg Tablet) 40 mg PO BID [facility]; Protocol Last Admin: 08/25/23 09:37 Dose: 40 mg Trazodone HCl (Trazodone Hcl 50 Mg Tablet) 150 mg PO BEDTIME PRN PRN Reason: insomnia Home Medications Medication Instructions Recorded Confirmed Last Taken Type albuterol sulfate 90 mcg/actuation 1 inh inhalation Q4H PRN Shortness 08/25/23 08/25/23 Unknown History aerosol inhaler (Ventolin HFA) Of Breath Or Wheezing atorvastatin 10 mg tablet 10 mg PO BEDTIME 08/25/23 08/25/23 Unknown History clonidine HCl 0.1 mg tablet 0.1 mg PO TID PRN Anxiety 08/25/23 08/25/23 Unknown History doxepin 25 mg capsule 25 - 50 mg PO BEDTIME insomnia 08/25/23 08/25/23 Unknown History dulaglutide 0.75 mg/0.5 mL 0.75 mg subcut QWEEK 08/25/23 08/25/23 Unknown History subcutaneous pen injector (Trulicity) hydroxyzine HCl 25 mg tablet 25 mg PO TID PRN itch 08/25/23 08/25/23 Unknown History hydroxyzine HCl 50 mg tablet 50 mg PO TID itch 08/25/23 08/25/23 Unknown History insulin glargine 100 unit/mL 15 unit subcut BEDTIME 08/25/23 08/25/23 Unknown History subcutaneous solution (Lantus U-100 Insulin) insulin lispro 100 unit/mL 5 unit subcut TID 08/25/23 08/25/23 Unknown History subcutaneous solution levothyroxine 112 mcg tablet 112 mcg PO DAILY@0600 08/25/23 08/25/23 Unknown History metformin 500 mg tablet 500 mg PO BID 08/25/23 08/25/23 Unknown History rizatriptan 5 mg tablet 5 mg PO ONCE PRN Migraine Headache 08/25/23 08/25/23 Unknown History torsemide 20 mg tablet 40 mg PO BID 08/25/23 08/25/23 Unknown History trazodone 150 mg tablet 150 mg PO BEDTIME PRN insomnia 08/25/23 08/25/23 Unknown History umeclidinium 62.5 mcg/actuation 1 inh inhalation DAILY 08/25/23 08/25/23 Unknown History blister powder for inhalation (Incruse Ellipta) Physical Exam Vital Signs: Vital Signs: Last Vital Signs Temp 97.0 F 08/25/23 15:12 Pulse 125 H 08/25/23 15:12 Resp 18 08/25/23 15:12 BP 128/61 08/25/23 15:12 Pulse Ox 94 08/25/23 15:12 O2 Del Method Room Air 08/25/23 15:12 BMI result Body Mass Index 39.8 EXAM: GENERAL: The patient is well developed and nontoxic. VITAL SIGNS:see workflow HEENT: Nonicteric sclerae, PERRLA, EOMI. Oropharynx clear. Moist mucous membranes. Conjunctivae appear well perfused. No thyroid mass. CHEST: Chest wall is nontender. HEART: Regular rate and rhythm without murmurs. LUNGS: Clear to auscultation bilaterally. ABDOMEN: Soft, positive bowel sounds, tender LLQ, no organomegaly.no flank tenderness SKIN: No rash, no excessive bruising, petechiae, or purpura. NEUROLOGIC: Cranial nerves II-XII intact without motor/sensory deficit. Psych: Appearance: grossly normal Results Labs 08/25/23 05:22 08/25/23 05:22 Labs: Short CBC 08/24/23 08/25/23 Range/Units 21:11 05:22 WBC 30.5 H* 26.3 H (4.8-10.8) X10*3/uL Hgb 15.3 D 13.2 (12.0-16.0) g/dl Hct 51.3 H D 44.0 (37.0-47.0) % Plt Count 525 H D 404 H (160-400) X10*3/uL BMP 08/24/23 08/25/23 21:11 05:22 Sodium 140 140 Potassium 4.7 D 4.1 Chloride 97 102 Carbon Dioxide 29 25 BUN 18 H 24 H Creatinine 1.33 1.24 Calcium 11.1 H D 9.4 D Liver Function 08/24/23 Range/Units 21:11 Total Bilirubin 0.8 (0.0-1.0) mg/dL Direct Bilirubin 0.3 (0.0-0.5) mg/dL AST 17 (5-31) U/L ALT 18 (0-31) U/L Alkaline Phosphatase 129 H (39-117) U/L Albumin 4.9 (3.5-5.0) g/dL Urine 08/25/23 Range/Units 02:40 Urine Color Yellow Urine Appearance Clear Urine pH 5.5 (5.0-9.0) Ur Specific [place] >= 1.030 H (1.005-1.025) Urine Protein 100 (2+) H (Neg-Trace) mg/dL Urine Glucose (UA) Negative (Negative) mg/dL Assessment and Plan (1) Abdominal pain in female: Status: Acute (2) SIRS (systemic inflammatory response syndrome): Status: Acute Plan 1/ Acute abdominal pain with stranding and thickening of colon in lower abdomen, could be diverticulitis vs colitis. 2/ Raised Ca, TP and alk phos, could be related to dehydration, multiple myeloma, bony lesions Plan: 1/ cont with antibiotics as helping 2/ check myeloma screen, fluids to drive down Ca--heme was already seeing for eval or leucocytosis -checking for CML etc 3/ repeat colo at future day as last colo with poor prep and unable to properly visualize colon Procedures Date of Service Date of Service: 08/25/23
--- NOTE | 2023-08-25 18:55 | PC.NURSE ---
Pt Hr has consistantly tachy. Pt arrived to me 110-124. At 4pm HR 125. MD Scanlon made aware. No further orders.
[2023-08-25] MEDS: cefTRIAXone sodium 1 GM in 0.9 % Sodium Chloride 50 ML IV (19:20)
[2023-08-25 19:28] LABS: Glucose, Whole Blood 133 mg/dL (60-115)
[2023-08-25] MEDS: traZODone HCL 50 MG TABLET 150 MG PO (19:36)
[2023-08-25] MEDS: Atorvastatin Calcium 10 MG TABLET PO (19:37)
[2023-08-25] MEDS: Doxepin HCl 25 MG CAPSULE PO (19:37)
--- NOTE | 2023-08-26 | ECG_ITS ---
Test Reason : high heart rate Blood Pressure : / mmHG Vent. Rate : 114 BPM Atrial Rate : 114 BPM P-R Int : 114 ms QRS Dur : 072 ms QT Int : 392 ms P-R-T Axes : -09 017 047 degrees QTc Int : 540 ms Sinus tachycardia Nonspecific T wave abnormality Abnormal ECG When compared with ECG of 24-AUG-2023 22:21, ST no longer depressed in T wave amplitude has decreased in Anterolateral leads Referred By: Vinod Scanlon Electronically Signed By:VINNIE MCKINLEY MD
[2023-08-26] MEDS: Morphine Sulfate 4 MG/ML CARTRIDGE IVPUSH ×4 (00:16→19:50)
[2023-08-26] MEDS: Butalb/Acetamin/Caff 50/325/40 TABLET 1 TAB PO ×3 (01:55→18:03)
[2023-08-26 03:01] VITALS: BP 121/60; PULSE 97; RESP 18; TEMP 36.1; O2SAT 94
[2023-08-26] MEDS: metroNIDAZOLE/NS 500 MG/100 ML PIGGYBACK 100 MG IV ×3 (04:41→21:35)
[2023-08-26] MEDS: Enoxaparin Sodium 40 MG/0.4 ML SYRINGE SUBCUT (04:41)
[2023-08-26] MEDS: Levothyroxine Sodium 112 MCG TABLET PO (04:41)
[2023-08-26] MEDS: hydrOXYzine HCL 25 MG TABLET PO (04:41)
[2023-08-26] MEDS: 0.9 % Sodium Chloride 1,000 ML 100 ML IVCONT ×2 (04:42→14:24)
[2023-08-26 07:03] LABS: Hematocrit 40.6 % (37.0-47.0); Hemoglobin 12.1 g/dl (12.0-16.0); Mean Corpuscular HGB Conc 29.8 g/dl (31.0-35.0); Mean Corpuscular Hemoglobin 21.6 pg (27.0-33.0); Mean Corpuscular Volume 72.4 fL (80.0-98.0); Mean Platelet Volume 10.1 fL (9.4-12.3); Platelet Count 299 X10*3/uL (160-400); Red Blood Count 5.61 X10*6/uL (4.20-5.50); Red Cell Distribution Width 18.2 % (11.0-16.0); White Blood Count 16.2 X10*3/uL (4.8-10.8)
[2023-08-26 07:25] VITALS: BP 131/71; PULSE 136; RESP 20; TEMP 36.1; O2SAT 94
[2023-08-26 07:31] LABS: Glucose, Whole Blood 142 mg/dL (60-115)
[2023-08-26] MEDS: hydrOXYzine HCL 50 MG TABLET PO ×3 (08:17→19:57)
[2023-08-26] MEDS: Docusate Sodium 100 MG CAPSULE PO ×2 (08:17→19:57)
--- NOTE | 2023-08-26 08:19 | ECG_ITS ---
Test Reason : high heart rate Blood Pressure : / mmHG Vent. Rate : 111 BPM Atrial Rate : 111 BPM P-R Int : 130 ms QRS Dur : 072 ms QT Int : 398 ms P-R-T Axes : 030 010 067 degrees QTc Int : 541 ms Sinus tachycardia Nonspecific T wave abnormality Abnormal ECG When compared with ECG of 26-AUG-2023 08:18, No significant change was found Referred By: Vinod [facility] Electronically Signed By:VINNIE MCKINLEY MD
[2023-08-26] MEDS: ondansetron HCL 4 MG/2 ML VIAL IVPUSH (08:28)
[2023-08-26] MEDS: Metoprolol Tartrate 50 MG TABLET PO ×2 (08:28→19:57)
[2023-08-26] MEDS: Tiotropium Bromide 2.5 mcg 1 PUFF/2.5 MCG MIST.INHAL 2 PUFF INHALE (08:38)
[2023-08-26 08:44] VITALS: PULSE 125; RESP 20; O2SAT 95
[2023-08-26 08:49] LABS: Anion Gap 13 (12-20); Blood Urea Nitrogen 19 mg/dL (9-16); Calcium 8.5 mg/dL (8.4-10.2); Carbon Dioxide 27 mmol/L (22-29); Chloride 102 mmol/L (96-108); Creatinine Clr Calc Pharmacy 82.1; Estimated Glomerular Filt Rate 58; Glucose Random 131 mg/dL (60-115); Potassium 3.1 mmol/L (3.3-5.1); Sodium 139 mmol/L (135-145)
--- NOTE | 2023-08-26 09:40 | HO.PM.IMPN ---
Subjective Subjective Date of Service: 08/27/23 Interval History: f/u on abdominal pain, believed to be acute diverticulitis, pain is better is better, WBC is trending down. Elevated HR today d/t not taking metoprolol which was not on med rec Physical Exam Vital Signs: Vital Signs: Last Vital Signs Temp 97.0 F 08/26/23 07:25 Pulse 125 H 08/26/23 08:44 Resp 20 08/26/23 08:44 BP 131/71 08/26/23 07:25 Pulse Ox 94 08/26/23 07:25 O2 Del Method Room Air 08/26/23 07:25 BMI result Body Mass Index 39.8 Const: Other: General: AO X 3, no acute distress Resp: CTA bilateral CVS: S1,S2,RRR GI: +BS, mild tendernes, no distention Skin: No rash Neuro: motor grossly intact Psych: appropriate affect Objective Data Active Medications Acetaminophen (Acetaminophen 325 Mg Tablet) 650 mg PO Q6H PRN PRN Reason: Pain, Mild (Pain Scale 1-3) Acetaminophen/Butalbital/Caffeine (Butalb/Acetamin/Caff 50/325/40 Tablet) 1 tab PO Q4H PRN PRN Reason: Pain, Moderate(Pain Scale 4-6) Last Admin: 08/26/23 01:55 Dose: 1 tab Documented By: CARLOS Albuterol Sulfate (Albuterol Sulfate 90 Mcg 8 Gm Inhaler) 1 puff INHALE Q4H PRN PRN Reason: Shortness Of Breath Or Wheezing Atorvastatin Calcium (Atorvastatin Calcium 10 Mg Tablet) 10 mg PO BEDTIME [facility] Last Admin: 08/25/23 19:37 Dose: 10 mg Documented By: CARLOS Clonidine HCl (Clonidine Hcl 0.1 Mg Tablet) 0.1 mg PO TID PRN; Protocol PRN Reason: Anxiety Dextrose (Dextrose 50 % 25 Gm/50 Ml Syringe) 25 gm IVPUSH Q15M PRN; Protocol PRN Reason: per Hypoglycemia Standing Ord. Docusate Sodium (Docusate Sodium 100 Mg Capsule) 100 mg PO BID [facility] Last Admin: 08/26/23 08:17 Dose: 100 mg Documented By: MADI Doxepin HCl (Doxepin Hcl 25 Mg Capsule) 25 mg PO BEDTIME [facility] Last Admin: 08/25/23 19:37 Dose: 25 mg Documented By: CARLOS Enoxaparin Sodium (Enoxaparin Sodium 40 Mg/0.4 Ml Syringe) 40 mg SUBCUT Q24H [facility] Last Admin: 08/26/23 04:41 Dose: 40 mg Documented By: CARLOS Glucose (Glucose Gel 15 Gm Gel..Gram.) 15 gm PO Q15M PRN; Protocol PRN Reason: per Hypoglycemia Standing Ord. Hydroxyzine HCl (Hydroxyzine Hcl 25 Mg Tablet) 25 mg PO TID PRN PRN Reason: itch Last Admin: 08/26/23 04:41 Dose: 25 mg Documented By: CARLOS Hydroxyzine HCl (Hydroxyzine Hcl 50 Mg Tablet) 50 mg PO TID [facility] Last Admin: 08/26/23 08:17 Dose: 50 mg Documented By: MADI Ceftriaxone Sodium 1 gm/ (Sodium Chloride) 50 mls @ 100 mls/hr IV Q24H [facility] Last Infusion: 08/25/23 19:57 Dose: Infused Documented By: CARLOS Metronidazole (Flagyl) 500 mg in 100 mls @ 100 mls/hr IV Q8H [facility] Last Infusion: 08/26/23 05:44 Dose: Infused Documented By: CARLOS Sodium Chloride (Ns) 1,000 mls @ 100 mls/hr IVCONT .Q10H [facility] Last Admin: 08/26/23 04:42 Dose: 100 mls/hr Documented By: CARLOS Insulin Glargine (Insulin Glargine,Hum.Rec.Anlog 100 Unit/Ml 10 Ml Vial) 15 unit SUBCUT BEDTIME [facility] Last Admin: 08/25/23 19:37 Dose: 15 unit Documented By: CARLOS Insulin Human Lispro (Insulin Lispro 100 Unit/Ml 3 Ml Vial) 0 unit SUBCUT QIDACHS [facility]; Protocol Last Admin: 08/26/23 07:33 Dose: Not Given Documented By: MADI Non-Admin Reason: No Insulin Coverage Levothyroxine Sodium (Levothyroxine Sodium 112 Mcg Tablet) 112 mcg PO DAILY@0600 [facility] Last Admin: 08/26/23 04:41 Dose: 112 mcg Documented By: CARLOS Magnesium Hydroxide (Milk Of Magnesia 30 Ml Oral.Susp) 30 ml PO DAILY PRN PRN Reason: Constipation Melatonin (Melatonin 3 Mg Tablet) 6 mg PO BEDTIME PRN PRN Reason: Insomnia Metoprolol Tartrate (Metoprolol Tartrate 50 Mg Tablet) 50 mg PO BID [facility]; Protocol Last Admin: 08/26/23 08:28 Dose: 50 mg Documented By: MADI Morphine Sulfate (Morphine Sulfate 4 Mg/Ml Cartridge) 4 mg IVPUSH Q4H PRN; Protocol PRN Reason: Pain, Severe (Pain Scale 7-10) Last Admin: 08/26/23 08:22 Dose: 4 mg Documented By: MADI Ondansetron HCl (Ondansetron Hcl 4 Mg/2 Ml Vial) 4 mg IVPUSH Q8H PRN PRN Reason: Nausea and Vomiting Last Admin: 08/26/23 08:28 Dose: 4 mg Documented By: MADI Polyethylene Glycol (Polyethylene Glycol 3350 17 Gm Powd.Pack) 17 gm PO DAILY PRN PRN Reason: Constipation Sodium Chloride (0.9 % Sodium Chloride Flush 3 Ml Syringe) 3 ml IVFLUSH QSHIFT [facility] Last Admin: 08/26/23 07:33 Dose: Not Given Documented By: MADI Non-Admin Reason: IV Running Tiotropium [place] (Tiotropium [place] 2.5 Mcg 1 Puff/2.5 Mcg Mist.Inhal) 2 puff INHALE RDAILY [facility] Last Admin: 08/26/23 08:38 Dose: 2 puff Documented By: RAF Trazodone HCl (Trazodone Hcl 50 Mg Tablet) 150 mg PO BEDTIME PRN PRN Reason: insomnia Last Admin: 08/25/23 19:36 Dose: 150 mg Documented By: CARLOS Labs 08/27/23 05:36 08/27/23 05:36 Labs: Laboratory Results - last 24 hr 08/25/23 08/25/23 08/25/23 11:12 16:05 19:24 MCV MCH MCHC RDW Plt Count MPV Absolute Nucleated RBC Nucleated RBC % (auto) Anion Gap Estim Creat Clear Calc Estimated GFR POC Glucose 137 H 120 H 133 H Random Glucose Calcium 08/26/23 08/26/23 06:35 07:27 MCV 72.4 L MCH 21.6 L MCHC 29.8 L RDW 18.2 H Plt Count 299 D MPV 10.1 Absolute Nucleated RBC 0.000 Nucleated RBC % (auto) 0.0 Anion Gap 13 Estim Creat Clear Calc 82.1 Estimated GFR 58 POC Glucose 142 H Random Glucose 131 H Calcium 8.5 D Microbiology Microbiology Results: Microbiology 08/24/23 22:56 Blood Culture - Preliminary Blood - Venous No growth after 24 hours. 08/24/23 22:56 Blood Culture - Preliminary Blood - Venous No growth after 24 hours. Assessment and Plan (1) Acute diverticulitis: Status: Acute Plan This is a 58-year-old female with pertinent history of essential hypertension, mixed hyperlipidemia, mood disorder, insulin-dependent diabetes mellitus, hypothyroidism, gastroesophageal reflux disease, congestive heart failure with preserved ejection fraction, MARY on CPAP, asthma not on home oxygen who presents to the emergency department for evaluation of abdominal pain. # Abdominal pain, nausea, vomiting, clinically appear to have diverticulitis, she's responding to Abx (Ceftriaxone + Flagyl), GI input noted. Follow Leukoytois, advance diet, bwel regimen for constipation. Met sepsis criteria on admission # Acute lactic acidosis due to sepsis # Hypokalemia--replace oraly # Insulin-dependent diabetes mellitus with hyperglycemia: better, continue Lantus + SSI, diabetic diet # Congestive heart failure with preserved ejection fraction: compensated, hold diuretic for now # Essential hypertension: Resume home metoprolol # MARY on CPAP at bedtime, continue # Hypothyroidism: On Synthroid. TSH pending # Mood disorder: Continue home mood stabilizers # Asthma: No exacerbation during admission. Inhalers PRN # Mixed hyperlipidemia: continue statin # Hypercalcemia of 11, elvated total protein and ALK likely from dehydriaon, calcium is now normal SPEP and UPEP pending, she's follow by hematology DVT prophylaxis: Lovenox need for inpt: sepsis, acute diverticulitis needing IV Abx at this time, Quality Stroke Does the patient have a stroke diagnosis?: No VTE Prior VTE?: No VTE Risk Level:: Medical - moderate - high VTE Device Contraindication: Treatment Not Indicated VTE Drug Contraindication: N/A - Med Ordered
[2023-08-26 10:17] LABS: Magnesium 1.5 mg/dL (1.6-2.6)
--- NOTE | 2023-08-26 10:20 | PC.NURSE ---
Patient has been consistently tachycardic overnight and into this AM, HR has been in the mid 120's-130's. Upon assessment of patient at 8:20am patient made this nurse aware they usually takes metoprolol 50mg BID, this medication was not ordered in DEC or listed on the medication reconciliation. MD Dr Scanlon made aware, Metoprolol 50mg BID ordered and administered to Pt by this RN. 10:30am recheck of HR is 102 beats per minute. Pt is resting in bed, respirations even and unlabored.
[2023-08-26 10:41] VITALS: PULSE 102; RESP 18
[2023-08-26] MEDS: Potassium Chloride ER 20 MEQ TAB.ER.PRT 40 MEQ PO (11:00)
[2023-08-26 11:12] LABS: Glucose, Whole Blood 113 mg/dL (60-115)
[2023-08-26] MEDS: Albuterol Sulfate 90 MCG 8 GM INHALER 1 PUFF INHALE (15:19)
[2023-08-26 15:34] VITALS: BP 129/59; PULSE 88; RESP 18; TEMP 36.6; O2SAT 93
[2023-08-26 15:44] LABS: Glucose, Whole Blood 102 mg/dL (60-115)
[2023-08-26 19:21] VITALS: BP 144/73; PULSE 95; RESP 14; TEMP 36.4; O2SAT 93
[2023-08-26] MEDS: Milk of Magnesia 30 ML ORAL.SUSP PO (19:47)
[2023-08-26] MEDS: Atorvastatin Calcium 10 MG TABLET PO (19:56)
[2023-08-26] MEDS: Doxepin HCl 25 MG CAPSULE PO (19:57)
[2023-08-26] MEDS: cefTRIAXone sodium 1 GM in 0.9 % Sodium Chloride 50 ML IV (20:01)
[2023-08-26 20:32] LABS: Glucose, Whole Blood 140 mg/dL (60-115)
[2023-08-26] MEDS: guaiFENesin DM 100/10/5 ML 5 ML SYRUP PO (21:32)
[2023-08-26] MEDS: Insulin Glargine,Hum.rec.anlog 100 UNIT/ML 10 ML VIAL 15 UNIT SUBCUT (21:32)
[2023-08-26] MEDS: Calcium Carbonate 750 MG TAB.CHEW PO (23:19)
[2023-08-26] MEDS: traZODone HCL 50 MG TABLET 150 MG PO (23:20)
[2023-08-26] MEDS: Throat Lozenge, Medicated LOZENGE 1 LOZENGE MUCOUS MEM (23:21)
--- NOTE | 2023-08-27 | ECG_ITS ---
Test Reason : chest pain Blood Pressure : / mmHG Vent. Rate : 074 BPM Atrial Rate : 074 BPM P-R Int : 124 ms QRS Dur : 076 ms QT Int : 438 ms P-R-T Axes : 033 037 036 degrees QTc Int : 486 ms Normal sinus rhythm Prolonged QT Abnormal ECG When compared with ECG of 26-AUG-2023 08:19, Vent. rate has decreased BY 37 BPM Nonspecific T wave abnormality no longer evident in Lateral leads Referred By: Vinod Scanlon Electronically Signed By:VINNIE MCKINLEY MD
[2023-08-27] MEDS: 0.9 % Sodium Chloride 1,000 ML 100 ML IVCONT ×2 (01:28→11:01)
[2023-08-27 03:10] VITALS: BP 109/61; PULSE 73; RESP 18; TEMP 36.1; O2SAT 93
[2023-08-27] MEDS: Acetaminophen 325 MG TABLET 650 MG PO (05:02)
[2023-08-27] MEDS: Levothyroxine Sodium 112 MCG TABLET PO (05:02)
[2023-08-27] MEDS: Enoxaparin Sodium 40 MG/0.4 ML SYRINGE SUBCUT (05:04)
[2023-08-27] MEDS: metroNIDAZOLE/NS 500 MG/100 ML PIGGYBACK 100 MG IV ×2 (05:13→15:29)
[2023-08-27 06:00] LABS: Hematocrit 35.4 % (37.0-47.0); Hemoglobin 10.4 g/dl (12.0-16.0); Mean Corpuscular HGB Conc 29.4 g/dl (31.0-35.0); Mean Corpuscular Hemoglobin 21.3 pg (27.0-33.0); Mean Corpuscular Volume 72.5 fL (80.0-98.0); Mean Platelet Volume 10.9 fL (9.4-12.3); NRBC Pct Auto 0.2 /100WBC (0.0-0.2); Platelet Count 264 X10*3/uL (160-400); Red Blood Count 4.88 X10*6/uL (4.20-5.50); Red Cell Distribution Width 17.8 % (11.0-16.0); White Blood Count 11.8 X10*3/uL (4.8-10.8)
[2023-08-27 06:11] LABS: Anion Gap 11 (12-20); Blood Urea Nitrogen 14 mg/dL (9-16); Calcium 8.4 mg/dL (8.4-10.2); Carbon Dioxide 28 mmol/L (22-29); Chloride 105 mmol/L (96-108); Creatinine Clr Calc Pharmacy 96.8; Estimated Glomerular Filt Rate > 60; Glucose Random 148 mg/dL (60-115); Sodium 140 mmol/L (135-145)
[2023-08-27 07:14] LABS: Glucose, Whole Blood 97 mg/dL (60-115)
[2023-08-27 07:19] VITALS: BP 113/62; PULSE 76; RESP 20; TEMP 36.1; O2SAT 92
[2023-08-27] MEDS: Tiotropium Bromide 2.5 mcg 1 PUFF/2.5 MCG MIST.INHAL 2 PUFF INHALE (07:53)
[2023-08-27 07:55] VITALS: PULSE 74; RESP 18; O2SAT 90
[2023-08-27] MEDS: hydrOXYzine HCL 50 MG TABLET PO ×2 (09:29→15:29)
[2023-08-27] MEDS: oxyCODONE HCl Immed Release 5 MG TABLET PO ×2 (09:29→15:29)
[2023-08-27] MEDS: Metoprolol Tartrate 50 MG TABLET PO (09:29)
[2023-08-27] MEDS: Docusate Sodium 100 MG CAPSULE PO (09:29)
--- NOTE | 2023-08-27 10:52 | PM.DS ---
DS: Providers Provider Date of Service: 08/27/23 Date of admission: 08/25/23 03:59 Primary care physician: Jenny Bell MD Consults: 08/25/23 11:01 Consult to Gastroenterology Routine Consulting Provider: Bunny Ballard Reason for consultation: Unexplained abdominal pain DS: Diagnosis Discharge Diagnosis (1) Acute diverticulitis: Status: Acute DS: Summary Hospital Course Hospital Course: Chief Complaint: Abdominal Pain, Nausea/vomiting This is a 58-year-old female with pertinent history of essential hypertension, mixed hyperlipidemia, mood disorder, insulin-dependent diabetes mellitus, hypothyroidism, gastroesophageal reflux disease, congestive heart failure with preserved ejection fraction, MARY on CPAP, asthma not on home oxygen who presents to the emergency department for evaluation of abdominal pain. Patient states that the right lower quadrant abdominal pain started 2 days prior to presentation. It is worse with p.o. intake, radiating to the back, constant and without any relieving factors. She also has associated nausea and multiple episodes of nonbloody emesis. Unable to tolerate p.o. intake. Does endorse chills. No diarrhea. Patient has a history of cholecystectomy. No chest discomfort, palpitations, shortness of breath, changes in urinary or bowel habits. In the emergency department, patient had elevated white blood cell count and was SIRS+ Hospital course: The patient presented with abdominal pain, nausea, and vomiting. Laboratory tests revealed an elevated white blood cell (WBC) count of 30. A CT scan of the abdomen and pelvis showed mild stranding adjacent to the anterior urinary bladder, which could be indicative of cystitis in the appropriate clinical setting. Correlation with urinalysis was advised. However, the urinalysis did not show any evidence of cystitis. Empiric antibiotics with ceftriaxone and Flagyl were initiated, and a gastroenterology consult was requested. The teacher vocational training concluded that the patient's presentation was more consistent with acute diverticulitis. The patient's symptoms improved, and her WBC count decreased to 11. She was tolerating a regular diet and will continue antibiotic treatment for a total of seven days. She would then switch to oral ceftin and oral Flagyl. The patient was also noted to have a calcium level of 11 and an alkaline phosphatase (ALP) level of 129. A serum protein electrophoresis (SPEP) and urine protein electrophoresis (UPEP) were requested to evaluate for myeloma. Due to chronic leukocytosis, the patient is being followed by oncology for a suspected myeloproliferative disorder. She should continue follow-up with her oncologist. Time Attestation Discharge coordination time: Greater than 30 minutes Quality: Safe Use of Opioids Does Pt have an Active Cancer Diagnosis on the Problem List?: No Quality: Stroke Does the patient have a stroke diagnosis?: No Physical Exam Vital Signs: Vital Signs: Last Vital Signs Temp 97.0 F 08/27/23 07:19 Pulse 74 08/27/23 07:55 Resp 18 08/27/23 07:55 BP 113/62 08/27/23 07:19 Pulse Ox 92 08/27/23 07:19 O2 Del Method Room Air 08/27/23 07:19 BMI result Body Mass Index 39.8 Const: Other: General: AO X 3, no acute distress Resp: CTA bilateral CVS: S1,S2,RRR GI: +BS, NT, no distention Skin: No rash Neuro: motor grossly intact Psych: appropriate affect DS: Data Data Completed and Pending Completed studies during hospitalization [Text1]: Procedures Assistance with Respiratory Ventilation, Less than 24 Consecutive Hours, Continuous Positive Airway Pressure (06/30/23) Labs on day of discharge: Laboratory Results - last 24 hr 08/26/23 08/26/23 08/26/23 11:08 15:37 20:28 WBC RBC Hgb Hct MCV MCH MCHC RDW Plt Count MPV Absolute Nucleated RBC Nucleated RBC % (auto) Sodium Potassium Chloride Carbon Dioxide Anion Gap BUN Creatinine Estim Creat Clear Calc Estimated GFR POC Glucose 113 102 140 H Random Glucose Calcium 08/27/23 08/27/23 05:36 07:09 WBC 11.8 H RBC 4.88 Hgb 10.4 L Hct 35.4 L MCV 72.5 L MCH 21.3 L MCHC 29.4 L RDW 17.8 H Plt Count 264 MPV 10.9 Absolute Nucleated RBC 0.020 H Nucleated RBC % (auto) 0.2 Sodium 140 Potassium 4.0 D Chloride 105 Carbon Dioxide 28 Anion Gap 11 L BUN 14 Creatinine 0.84 Estim Creat Clear Calc 96.8 Estimated GFR > 60 POC Glucose 97 Random Glucose 148 H Calcium 8.4 Preliminary micro results at discharge 08/24/23 22:56 Blood Culture - Preliminary Blood - Venous No growth after 48 hours. 08/24/23 22:56 Blood Culture - Preliminary Blood - Venous No growth after 48 hours. Discharge Plan Discharge Anticipated Discharge Date/Time: 08/27/23 11:07 Patient Disposition: Home, Self-Care Discharge Diagnosis: Acute diverticulitis Referrals: Jenny Mendosa MD [Primary Care Provider] - 1 Week Discharge Medications: Continued metformin 500 mg tablet 500 mg PO BID clonidine HCl 0.1 mg tablet 0.1 mg PO TID PRN (Reason: Anxiety) insulin glargine [Lantus U-100 Insulin] 100 unit/mL solution 15 unit subcut BEDTIME torsemide 20 mg tablet 40 mg PO BID atorvastatin 10 mg tablet 10 mg PO BEDTIME doxepin 25 mg capsule 25 - 50 mg PO BEDTIME hydroxyzine HCl 50 mg tablet 50 mg PO TID trazodone 150 mg tablet 150 mg PO BEDTIME PRN (Reason: insomnia) hydroxyzine HCl 25 mg tablet 25 mg PO TID PRN (Reason: itch) insulin lispro 100 unit/mL solution 5 unit subcut TID albuterol sulfate [Ventolin HFA] 90 mcg/actuation HFA aerosol inhaler 1 inh inhalation Q4H PRN (Reason: Shortness Of Breath Or Wheezing) levothyroxine 112 mcg tablet 112 mcg PO DAILY@0600 rizatriptan 5 mg tablet 5 mg PO ONCE PRN (Reason: Migraine Headache) Rx Instructions: may repeat in 2 hours Incruse Ellipta 62.5 mcg/actuation blister with device 1 inh INHALATION DAILY Trulicity 0.75 mg/0.5 mL pen injector 0.75 mg subcut QWEEK Discharge Orders: Discharge Order (Routine); Ordered 08/27/23 Ordered By: Vinod Scanlon Diet: Advance to usual diet Activity on Discharge: As tolerated Stand Alone Forms: Patient Portal Discharge page Care Plan Goals: full recovery fom diverticulitis Health Concerns: diverticulitis Plan of Treatment: Take Ceftn and Flagyl as recommended and follow up with your Doctor in a week Assessment: as follow
[2023-08-27 11:13] VITALS: RESP 18; O2SAT 91
[2023-08-27 11:18] LABS: Glucose, Whole Blood 98 mg/dL (60-115)
--- NOTE | 2023-08-27 11:23 | MHC.CM.PN ---
PT TO DC HOME TODAY WITH RESUMPTION OF [facility] PT TO ARRANGE TRANSPORT
[2023-08-27 12:19] LABS: Prot Elec - Albumin 3.6 g/dL (3.8-4.8); Prot Elec - Alpha1 0.4 g/dL (0.2-0.3); Prot Elec - Alpha2 0.9 g/dL (0.5-0.9); Prot Elec - Beta 1 0.5 g/dL (0.4-0.6); Prot Elec - Beta 2 0.5 g/dL (0.2-0.5); Prot Elec - Gamma 1.1 g/dL (0.8-1.7)
[2023-08-27 14:00] VITALS: O2SAT 88
[2023-08-27 15:21] VITALS: BP 130/65; PULSE 77; RESP 17; TEMP 35.9; O2SAT 97
[2023-08-27] MEDS: guaiFENesin DM 100/10/5 ML 5 ML SYRUP PO (15:29)
[2023-08-27] MEDS: Throat Lozenge, Medicated LOZENGE 1 LOZENGE MUCOUS MEM (15:29)
[2023-08-27 16:03] LABS: Glucose, Whole Blood 103 mg/dL (60-115)
[2023-08-30 16:03] LABS: Creatinine, 24Hr Urine 1.29 g/24 h (0.50-2.15); PEU-PROT/CRE Ratio mg/mg 0.134 (<0.150); PEU24-Albumin Urine 100 %; PEU24-Alpha 1 Globulin 0 %; PEU24-Alpha 2 Globulin 0 %; PEU24-Beta Globulin 0 %; PEU24-Gamma Globulin 0 %; Total Protein 24Hr Urine 173 mg/24 h (<150); Total Protein/Creat Ratio 24h 134 mg/g creat (<150)
== END 2023-08-27 17:56 | disposition home or self-care (01) | DRG 244 ==
LOC: HO.ED 08-25 02:19 → HO.EDOVER 08-25 04:04 → HO.S3 08-25 08:56
PROVIDERS: Physician Assistant Medical; Admitting Provider Student in an Organized Health Care Education/Training Program; Emergency Provider Internal Medicine; PCP Internal Medicine; Visit Provider Internal Medicine
DX: K57.92 Diverticulitis of intestine, part unspecified, without perforation or abscess without bleeding (principal); E87.21 Acute metabolic acidosis; I50.32 Chronic diastolic (congestive) heart failure; I11.0 Hypertensive heart disease with heart failure; E78.2 Mixed hyperlipidemia; G47.33 Obstructive sleep apnea (adult) (pediatric); E87.6 Hypokalemia; E66.9 Obesity, unspecified; E86.0 Dehydration; E83.52 Hypercalcemia; E03.9 Hypothyroidism, unspecified; J45.909 Unspecified asthma, uncomplicated; Z20.822 Contact with and (suspected) exposure to COVID-19; Z68.39 Body mass index [BMI] 39.0-39.9, adult; Z79.4 Long term (current) use of insulin; Z91.040 Latex allergy status; Z79.84 Long term (current) use of oral hypoglycemic drugs; Z79.890 Hormone replacement therapy; Z79.899 Other long term (current) drug therapy
CPT/HCPCS: 0241U; 36415; 71046; 74177; 80048; 80076; 81001; 82533; 82570; 82947; 83605; 83690; 83735; 84156; 84165; 84166; 84443; 85025; 85027; 87040; 93005; 94640; 94660; 99285; J0696; J1650; J1836; J2270; J2405; Q9967

== ENCOUNTER → 2023-08-25 03:59 | Outpatient (BNV) | payer OTHER, SELFPAY | PROVIDERS: Admitting Provider Student in an Organized Health Care Education/Training Program; Emergency Provider Internal Medicine; PCP Internal Medicine; Visit Provider Internal Medicine Gastroenterology | DX: R10.9 Unspecified abdominal pain (principal); R65.10 Systemic inflammatory response syndrome (SIRS) of non-infectious origin without acute organ dysfunction | CPT/HCPCS: 99223 ==

== ENCOUNTER → 2023-08-25 03:59 | Outpatient (BNV) | payer OTHER, SELFPAY | PROVIDERS: Admitting Provider Student in an Organized Health Care Education/Training Program; Emergency Provider Internal Medicine; PCP Internal Medicine; Visit Provider Student in an Organized Health Care Education/Training Program | DX: K57.92 Diverticulitis of intestine, part unspecified, without perforation or abscess without bleeding (principal) | CPT/HCPCS: 99223; 99232; 99239; 99499 ==

== ENCOUNTER 2023-09-10 22:19 | Inpatient (IN) | payer OTHER, SELFPAY ==
--- NOTE | 2023-09-10 | ECG_ITS ---
Test Reason : dizziness Blood Pressure : / mmHG Vent. Rate : 073 BPM Atrial Rate : 073 BPM P-R Int : 142 ms QRS Dur : 078 ms QT Int : 442 ms P-R-T Axes : -07 023 032 degrees QTc Int : 486 ms Normal sinus rhythm with sinus arrhythmia Nonspecific ST and T wave abnormality Prolonged QT Abnormal ECG When compared with ECG of 27-AUG-2023 13:13, No significant change was found Referred By: Generic ED Physician Electronically Signed By:FEI RADER
--- NOTE | ~2023-09-10 | CT_ITS ---
EXAMINATION: CT ABDOMEN AND PELVIS WITH CONTRAST CLINICAL INFORMATION: Abdominal pain. COMPARISON: None available. TECHNIQUE: Multidetector volumetric images were obtained from the superior aspect of the liver through the pubic symphysis following administration 99 mL of Omnipaque 350 intravenous contrast. Sagittal and coronal reformatted images were obtained on the technologist's workstation. Oral contrast: No This CT examination was performed using dose optimization techniques as appropriate, variously including the following: *Automated exposure control *Adjustment of mA and/or kV according to patient size (this includes techniques or standardized protocols for targeted exams where dose is matched to indication/reason for exam; i.e. extremities or head) *Use of iterative reconstruction technique DLP: 995 mGy-cm FINDINGS: LUNG BASES: There is atelectatic change and/or scarring at the lung bases greater on the right. LIVER, GALLBLADDER, AND BILIARY TREE: The liver is normal in size, shape, and attenuation. No focal hepatic lesion or biliary ductal dilatation is present. There has been a prior cholecystectomy. PANCREAS: Unremarkable. SPLEEN: Unremarkable. ADRENAL GLANDS: Unremarkable. KIDNEYS AND URETERS: The kidneys are normal in size, shape, and attenuation. No hydronephrosis, hydroureter, or calculi seen. No perinephric stranding. BLADDER: Unremarkable. GASTROINTESTINAL TRACT: The small and large bowel are unremarkable. The appendix is unremarkable. ABDOMINAL WALL: No significant hernia is appreciated. LYMPH NODES: Normal. VASCULAR: Unremarkable. PELVIC VISCERA: Unremarkable. OSSEOUS STRUCTURES: There is [id number] diffuse thoracolumbar disc degenerative change. CT/CT abdomen pelvis w IV con IMPRESSION: No acute intra-abdominal process. Fleischner guidelines were followed.
--- NOTE | ~2023-09-10 | CT_ITS ---
EXAMINATION: CT ABDOMEN AND PELVIS WITH CONTRAST CLINICAL INFORMATION: Abdominal pain, unclear etiology. COMPARISON: CT abdomen and pelvis 09/11/2023. TECHNIQUE: Multidetector volumetric images were obtained from the superior aspect of the liver through the pubic symphysis following administration 85 mL of Omnipaque 350 intravenous contrast. Sagittal and coronal reformatted images were obtained on the technologist's workstation. Oral contrast: Yes This CT examination was performed using dose optimization techniques as appropriate, variously including the following: *Automated exposure control *Adjustment of mA and/or kV according to patient size (this includes techniques or standardized protocols for targeted exams where dose is matched to indication/reason for exam; i.e. extremities or head) *Use of iterative reconstruction technique DLP: 1322 mGy-cm FINDINGS: LUNG BASES: Elevated right hemidiaphragm. LIVER, GALLBLADDER, AND BILIARY TREE: Suspect steatosis of the liver. No cirrhotic morphology. No discrete liver mass. No biliary ductal dilatation. Cholecystectomy. PANCREAS: No discrete mass. No ductal dilatation. No peripancreatic inflammation. SPLEEN: Unremarkable. ADRENAL GLANDS: No adrenal mass. KIDNEYS AND URETERS: The kidneys are normal in size, shape, and attenuation. No hydronephrosis, hydroureter, or calculi seen. No perinephric stranding. BLADDER: Unremarkable. GASTROINTESTINAL TRACT: No hiatal hernia. The stomach is decompressed and not well evaluated but appears normal. The small bowel is normal in caliber. No evidence of obstruction. No mesenteric mass or fluid. The appendix is normal. Soft tissue density in the cecum is surrounded by oral contrast and not present on the prior study and consistent with stool rather than a colonic mass. The large bowel is normal in caliber. No focal wall thickening or pericolonic inflammatory changes. ABDOMINAL WALL: No significant hernia is appreciated. LYMPH NODES: No lymphadenopathy. VASCULAR: Normal caliber abdominal aorta. Circumaortic left renal vein, the posterior limb is dominant. PELVIC VISCERA: Unremarkable. OSSEOUS STRUCTURES: Moderate degenerative disc disease at L5-S1. Moderate facet arthrosis L4-L5 and L5-S1. CT/CT abdomen pelvis w IV con IMPRESSION: Stable CT of the abdomen and pelvis compared to 09/11/2023. No explanation for abdominal pain. Fleischner guidelines were followed.
[2023-09-10 22:26] VITALS: BP 149/76; PULSE 79; RESP 18; TEMP 36.6; O2SAT 97; BMI 39.8
[2023-09-10 23:43] LABS: Influenza A PCR NEGATIVE (Negative); Influenza B PCR NEGATIVE (Negative); Resp Syncy Virus RNA Qual PCR NEGATIVE (Negative); SARS COV2 PCR INHOUSE NEGATIVE (Negative)
[2023-09-10 23:55] VITALS: BP 164/76; PULSE 73; RESP 13; TEMP 36.7; O2SAT 98
[2023-09-11] VITALS (13 sets, daily range): BP systolic 106–189; BP diastolic 52–92; PULSE 81–126; RESP 14–18; TEMP 36.2–37.1; O2SAT 92–98
--- NOTE | 2023-09-11 01:14 | PC.NURSE ---
architectural modeler at bedside attempting labs. pt a hard stick
[2023-09-11 01:29] LABS: Basophils Percent Auto 0.2 % (0-2); Hematocrit 43.5 % (37.0-47.0); Imm Gran Abs Auto 0.09 X10*3/uL (0.00-0.03); Imm Gran Pct Auto 0.4 % (0.0-0.4); Lymphocytes Percent Auto 4.9 % (20-40); MANUAL DIFF FLAG SCAN; Mean Corpuscular HGB Conc 29.9 g/dl (31.0-35.0); Mean Corpuscular Hemoglobin 21.9 pg (27.0-33.0); Mean Corpuscular Volume 73.4 fL (80.0-98.0); Mean Platelet Volume 10.3 fL (9.4-12.3); Monocytes Absolute Auto 0.4 X10*3/uL (0.1-1.2); Monocytes Percent Auto 1.7 % (2-11); Neutrophils Absolute Auto 19.4 x10*3/uL (2.0-8.3); Neutrophils Percent Auto 92.8 % (45-73); Platelet Count 333 X10*3/uL (160-400); Red Blood Count 5.93 X10*6/uL (4.20-5.50); SCAN SMEAR FLAG 1; White Blood Count 20.9 X10*3/uL (4.8-10.8)
[2023-09-11 01:47] LABS: SLIDE REVIEW VERIFIED
[2023-09-11 01:48] LABS: Alanine Aminotransferase 17 U/L (0-31); Albumin Level 4.4 g/dL (3.5-5.0); Alkaline Phosphatase 116 U/L (39-117); Anion Gap 17 (12-20); Aspartate Amino Transferase 15 U/L (5-31); Bilirubin Total 0.4 mg/dL (0.0-1.0); Blood Urea Nitrogen 17 mg/dL (9-16); Calcium 10.4 mg/dL (8.4-10.2); Carbon Dioxide 26 mmol/L (22-29); Chloride 102 mmol/L (96-108); Creatinine Clr Calc Pharmacy 101.7; Estimated Glomerular Filt Rate > 60; Glucose Random 218 mg/dL (60-115); Potassium 4.3 mmol/L (3.3-5.1); Sodium 141 mmol/L (135-145); Total Protein 9.1 g/dL (6.5-8.0)
[2023-09-11 02:06] LABS: Appearance Urine Cloudy; Color Urine Yellow; Glucose Urine UA Negative (Negative); Leukocyte Esterase Urine Small (1+) (Negative); Nitrite Urine Negative (Negative); PH 5.5 (5.0-9.0); Specific Gravity - Urine >= 1.030 (1.005-1.025); UMIC TRIGGER UACC YES; Urine Blood Trace (Negative); Urine Ketones 15 mg/dL (Negative); Urine Protein 30 (1+) mg/dL (Neg-Trace)
[2023-09-11 02:19] LABS: Bacteria Urine 2+ (None Seen); Calcium Oxalate Crystals Urine Present; UACC Culture Trigger YES
[2023-09-11] MEDS: iohexoL 350 MG/ML 100 ML INFUS..BTL IV (02:49)
--- NOTE | 2023-09-11 03:14 | ED.ABDPAIN ---
HPI - Abdominal Pain General Chief Complaint: Abdominal Pain Stated Complaint: dizziness Time Seen by Provider: 09/11/23 03:03 Source: patient Mode of arrival: ambulatory Limitations: no limitations History of Present Illness HPI narrative: Patient comes in the emergency room complaining of 3 days of nausea and diarrhea. Denies blood in the stool. Patient states that she is very nauseous but unable to vomit. Patient complaining of bilateral lower quadrant pain. According to the patient, she was recently discharged from the hospital 2 weeks ago, patient was diagnosed with diverticulitis. Patient denies chest pain or shortness of breath, no vomiting or diarrhea. Patient states that she has been coughing for a few days. Related Data Home Medications Medication Instructions Recorded Confirmed atorvastatin 10 mg tablet 10 mg PO BEDTIME 08/25/23 08/25/23 clonidine HCl 0.1 mg tablet 0.1 mg PO TID PRN Anxiety 08/25/23 08/25/23 doxepin 25 mg capsule 25 - 50 mg PO BEDTIME insomnia 08/25/23 08/25/23 dulaglutide 0.75 mg/0.5 mL 0.75 mg subcut QWEEK 08/25/23 08/25/23 subcutaneous pen injector (Trulicity) hydroxyzine HCl 25 mg tablet 25 mg PO TID PRN itch 08/25/23 08/25/23 hydroxyzine HCl 50 mg tablet 50 mg PO TID itch 08/25/23 08/25/23 insulin glargine 100 unit/mL 15 unit subcut BEDTIME 08/25/23 08/25/23 subcutaneous solution (Lantus U-100 Insulin) insulin lispro 100 unit/mL 5 unit subcut TID 08/25/23 08/25/23 subcutaneous solution levothyroxine 112 mcg tablet 112 mcg PO DAILY@0600 08/25/23 08/25/23 metformin 500 mg tablet 500 mg PO BID 08/25/23 08/25/23 rizatriptan 5 mg tablet 5 mg PO ONCE PRN Migraine Headache 08/25/23 08/25/23 torsemide 20 mg tablet 40 mg PO BID 08/25/23 08/25/23 trazodone 150 mg tablet 150 mg PO BEDTIME PRN insomnia 08/25/23 08/25/23 umeclidinium 62.5 mcg/actuation 1 inh inhalation DAILY 08/25/23 08/25/23 blister powder for inhalation (Incruse Ellipta) Previous Rx's Medication Instructions Recorded cefuroxime axetil 500 mg tablet 500 mg PO BID 5 days #10 tabs 08/27/23 metronidazole 500 mg tablet 500 mg PO BID 5 days #10 tabs 08/27/23 oxycodone 5 mg tablet 5 mg PO Q6H PRN pain (scale score 08/27/23 7-10) #12 tabs alcohol swabs (Alcohol Prep Pads) 1 pad topical .once a day 90 days 09/01/23 #100 ea albuterol sulfate 90 mcg/actuation 1 inh inhalation Q4H PRN Shortness 09/03/23 aerosol inhaler (Ventolin HFA) Of Breath Or Wheezing #8.5 grams Allergies Allergy/AdvReac Type Severity Reaction Status Date / Time Penicillins Allergy Severe swelling Verified 09/10/23 22:25 adhesive tape [ADHESIVE TAPE] Allergy Intermediate RASH Verified 09/10/23 22:25 amoxicillin [AMOXICILLIN] Allergy Intermediate RASH,SWELLI Verified 09/10/23 22:25 NG ibuprofen [From Motrin] Allergy Intermediate Hypertensio Verified 09/10/23 22:25 n latex Allergy Intermediate Rash Verified 09/10/23 22:25 Review of Systems Review of Systems Constitutional : No Weight loss, No Fever, No Chills, No Night Sweats, No Fatigue, No Malaise ENT/Mouth : No Hearing loss, No Ear Pain, No Nasal Congestion, No Sinus Pain, No Hoarseness, No sore throat, No Rhinorrhea, No Swallowing Difficulty Eyes: No Eye Pain, No Swelling, No Redness, No Foreign Body, No Discharge, No Vision Changes Cardiovascular : No Chest Pain, No SOB, No Dyspnea on Exertion, No Orthopnea, No Edema, No Palpitations Respiratory : Complaining of dry cough, No Sputum, No Wheezing, No Smoke Exposure, No Dyspnea Gastrointestinal : Complaining of nausea, unable to vomit, complaining of diarrhea, hematochezia or melena. Complaining of bilateral lower quadrant pain. Genitourinary : no irregular bleeding, No Dysuria, No Urinary Frequency, No Hematuria, No Urinary Incontinence, No Urgency, No Flank Pain, No Urinary Flow Changes, No Hesitancy Musculoskeletal : No joint pain, No Myalgias, No Joint Swelling Skin : No Skin Lesions, No rash Neuro : No Weakness, No Numbness, No Paresthesias, No Loss of Consciousness, No Dizziness, No Headache Psych : No Anxiety/Panic, No Depression, No SI/HI/AH/VH, No Social Issues, Heme/Lymph: No Bruising, No Bleeding,No Lymphadenopathy Endocrine : No Polyuria, No Polydipsia, No Temperature Intolerance [facility] Past Medical History Medical History Essential hypertension Acute diarrhea Pre-op examination Cervical radiculopathy Rash of foot Kiera albicans infection Cervicalgia Left shoulder pain Environmental allergies Hospital discharge follow-up MARY on CPAP Elevated red blood cell count Screening for hyperlipidemia Chronic pain syndrome Lumbar pain Encounter for annual routine gynecological examination Multiple air fluid levels of small intestine determined by X-ray Abdominal bloating Hypothyroid Sleep apnea Abdominal cramping Edema Anxiety with depression Chronic pain (Unknown) Gastroparesis Left knee pain Hypothyroidism Bilateral shoulder pain Hyperlipidemia LDL goal <70 Degeneration, intervertebral disc, cervical Spondylosis of cervical spine at multiple levels without myelopathy Sleep apnea Renal calculi Incontinence Goiter Disc degeneration, lumbar Spondylosis of lumbar region without myelopathy or radiculopathy Arthropathy of facet joint Insomnia LUDY (generalized anxiety disorder) Moderately severe recurrent major depression Diabetes mellitus Chronic pain syndrome Morbid (severe) obesity due to excess calories Fibromyalgia Small bowel motility disorder Chronic idiopathic constipation Asthma Surgical History History of knee replacement procedure of right knee History of hernia surgery Hx of colonoscopy History of esophagogastroduodenoscopy (EGD) History of cholecystectomy Delivery by section History of hysterectomy Family History Family History Father Past heart attack Anxiety Mother MOF (multiple organ failure) Brother HIV (human immunodeficiency virus infection) Sister Ovarian cancer Lupus Bone cancer Uterine cancer Tumor Daughter Guillain-Pierce Sister Lupus History of open heart surgery Family/Other Depression FH: mental illness Maternal Aunt Breast cancer Maternal Aunt Tumor Social History Social History Household Members: None Household Members Other:: Housing: Apartment Are you a primary acute care physical therapist to a significant other at home: No Do you presently have visiting nurse or other home services: Yes ([employer]) Alcohol intake: never Patient Tobacco Use Status: Never used Tobacco Smoked in Last 30 Days: No e-Cigarette/Vaping Use: Never Used Second Hand Smoke Exposure: Yes Use of substances other than those prescribed or required for medical reasons: No Advance Directives: Yes Advance Directives on File: Yes Advance Directives Date on File: 12/08/21 Patient : No service: No Current occupational status: unemployed and disabled Cognitive needs: No Hearing needs: No Vision needs: No Physical Exam ED Vital Signs: Vital Signs - 24 hr 09/10/23 22:26 09/10/23 23:55 09/11/23 01:55 Temperature 98 F 98.1 F Pulse Rate 79 73 87 Respiratory Rate 18 13 14 Blood Pressure 149/76 H 164/76 H 145/72 H Pulse Oximetry 97 98 97 Oxygen Delivery Method Room Air Room Air Room Air 09/11/23 03:49 Temperature 97.9 F Pulse Rate 87 Respiratory Rate 16 Blood Pressure 162/82 H Pulse Oximetry 97 Oxygen Delivery Method Room Air BMI result Body Mass Index 39.8 Const Other: Appearance: Alert. Oriented X3. No acute distress. Eyes: Pupils equal, round and reactive to light. ENT: Pharynx normal. Neck: Normal inspection. Neck supple. No lymph nodes noted. No crepitus CVS: Normal heart rate and rhythm. Pulses normal. Normal S1 and S2 Respiratory: No respiratory distress. Breath sounds normal. No Wheezing. No rales Abdomen: Soft does not seem to be particularly tender even with deep palpation in both lower quadrants, no rebound, no guarding Skin: Skin warm and dry. Normal skin color. Normal skin turgor. Extremities: No lower extremity edema. No Lacerations. No Rash Neuro: Oriented X 3. No motor deficit. No sensory deficit. Moving all extremities. No slurred speech. CN 2 through 12 grossly intact Psych: calm, cooperative, normal affect Course Course Course Narrative: -patient receiving IV fluids, Zofran and morphine Medical Decision Making Medical Decision Making MDM Narrative: -my interpretation of labs: Patient's white blood cell count 20.0. Lactic acid pending. Patient's vital stable, no fever, sepsis not suspected. Patient's chemistry does not show any significant electrolyte abnormality. Patient's calcium is 10.4 which has been elevated before. -I reviewed patient's labs from previous admission, patient is being worked up for multiple myeloma, no confirmation of diagnosis yet -at this time, 04:20, patient's lactic acid became available. Patient does not have any fever or chills, blood pressure stable. Sepsis not suspected. Patient may have diverticulitis. Patient's CT scan does not show acute diverticulitis. However, reviewing patient's records from previous admission. The last time that she was here she presented with similar symptoms, negative CT scan, GI consult was obtained, they were concerned the patient actually did have acute diverticulitis. Therefore, at this time we will start antibiotics. Patient already having fluids. -I discussed the patient with Dr. Alonzo, pt being admitted Differential Diagnosis Differential Diagnoses: The differential diagnosis associated with the presentation includes (Colitis, gastroenteritis, diverticulitis) Admission/Observation Consideration of admission/observation: Escalation of care including admission/observation considered Consult Healthcare Provider Management of the patient was discussed with: Hospitalist Lab Data MDM Lab Attestation statement: I reviewed the patient's lab results. 09/11/23 01:24 09/11/23 01:24 Labs: Lab Results 09/10/23 09/11/23 09/11/23 Range/Units 22:59 01:24 01:58 WBC 20.9 H (4.8-10.8) X10*3/uL RBC 5.93 H D (4.20-5.50) X10*6/uL Hgb 13.0 D (12.0-16.0) g/dl Hct 43.5 D (37.0-47.0) % MCV 73.4 L (80.0-98.0) fL MCH 21.9 L (27.0-33.0) pg MCHC 29.9 L (31.0-35.0) g/dl RDW 19.0 H (11.0-16.0) % Plt Count 333 D (160-400) X10*3/uL MPV 10.3 (9.4-12.3) fL Immature Gran % (Auto) 0.4 (0.0-0.4) % Neut % (Auto) 92.8 H (45-73) % Lymph % (Auto) 4.9 L (20-40) % [place] % (Auto) 1.7 L (2-11) % Eos % (Auto) 0.0 (0-4) % Baso % (Auto) 0.2 (0-2) % Lymph # (Auto) 1.0 L (1.2-4.9) X10*3/uL [place] # (Auto) 0.4 (0.1-1.2) X10*3/uL Eos # (Auto) 0.0 (0.0-0.4) X10*3/uL Baso # (Auto) 0.0 (0.0-0.2) X10*3/uL Abs Immat Gran (auto) 0.09 H (0.00-0.03) X10*3/uL Absolute Neuts (auto) 19.4 H (2.0-8.3) x10*3/uL Absolute Nucleated RBC 0.000 (0.0-0.012) X10*3/uL Nucleated RBC % (auto) 0.0 (0.0-0.2) /100WBC Smear Tech's Comments VERIFIED Sodium 141 (135-145) mmol/L Potassium 4.3 (3.3-5.1) mmol/L Chloride 102 (96-108) mmol/L Carbon Dioxide 26 (22-29) mmol/L Anion Gap 17 (12-20) BUN 17 H (9-16) mg/dL Creatinine 0.80 (0.5-1.4) mg/dL Estim Creat Clear Calc 101.7 Estimated GFR > 60 Random Glucose 218 H (60-115) mg/dL Lactic Acid (0.5-2.0) mmol/L Calcium 10.4 H D (8.4-10.2) mg/dL Total Bilirubin 0.4 (0.0-1.0) mg/dL AST 15 (5-31) U/L ALT 17 (0-31) U/L Alkaline Phosphatase 116 (39-117) U/L Total Protein 9.1 H (6.5-8.0) g/dL Albumin 4.4 (3.5-5.0) g/dL Urine Color Yellow Urine Appearance Cloudy Urine pH 5.5 (5.0-9.0) Ur Specific [place] >= 1.030 H (1.005-1.025) Urine Protein 30 (1+) H (Neg-Trace) mg/dL Urine Glucose (UA) Negative (Negative) mg/dL Urine Ketones 15 (Negative) mg/dL Urine Blood Trace H (Negative) Urine Nitrite Negative (Negative) Ur Leukocyte Esterase Small (1+) H (Negative) Urine RBC 3-5 H (0-2) /HPF Urine WBC 11-20 (0-5) /HPF Ur Squamous Epith Cells 6-10 (0-2) /HPF Calcium Oxalate Crystal Present Urine Bacteria 2+ (None Seen) Hyaline Casts 6-10 (0-2) /LPF Influenza Type A (PCR) NEGATIVE (Negative) Influenza Type B (PCR) NEGATIVE (Negative) RSV RNA Qual (PCR) NEGATIVE (Negative) SARS-CoV-2 RNA (RT-PCR) NEGATIVE (Negative) 09/11/23 Range/Units 03:40 WBC (4.8-10.8) X10*3/uL RBC (4.20-5.50) X10*6/uL Hgb (12.0-16.0) g/dl Hct (37.0-47.0) % MCV (80.0-98.0) fL MCH (27.0-33.0) pg MCHC (31.0-35.0) g/dl RDW (11.0-16.0) % Plt Count (160-400) X10*3/uL MPV (9.4-12.3) fL Immature Gran % (Auto) (0.0-0.4) % Neut % (Auto) (45-73) % Lymph % (Auto) (20-40) % [place] % (Auto) (2-11) % Eos % (Auto) (0-4) % Baso % (Auto) (0-2) % Lymph # (Auto) (1.2-4.9) X10*3/uL [place] # (Auto) (0.1-1.2) X10*3/uL Eos # (Auto) (0.0-0.4) X10*3/uL Baso # (Auto) (0.0-0.2) X10*3/uL Abs Immat Gran (auto) (0.00-0.03) X10*3/uL Absolute Neuts (auto) (2.0-8.3) x10*3/uL Absolute Nucleated RBC (0.0-0.012) X10*3/uL Nucleated RBC % (auto) (0.0-0.2) /100WBC Smear Tech's Comments Sodium (135-145) mmol/L Potassium (3.3-5.1) mmol/L Chloride (96-108) mmol/L Carbon Dioxide (22-29) mmol/L Anion Gap (12-20) BUN (9-16) mg/dL Creatinine (0.5-1.4) mg/dL Estim Creat Clear Calc Estimated GFR Random Glucose (60-115) mg/dL Lactic Acid 4.3 H* (0.5-2.0) mmol/L Calcium (8.4-10.2) mg/dL Total Bilirubin (0.0-1.0) mg/dL AST (5-31) U/L ALT (0-31) U/L Alkaline Phosphatase (39-117) U/L Total Protein (6.5-8.0) g/dL Albumin (3.5-5.0) g/dL Urine Color Urine Appearance Urine pH (5.0-9.0) Ur Specific [place] (1.005-1.025) Urine Protein (Neg-Trace) mg/dL Urine Glucose (UA) (Negative) mg/dL Urine Ketones (Negative) mg/dL Urine Blood (Negative) Urine Nitrite (Negative) Ur Leukocyte Esterase (Negative) Urine RBC (0-2) /HPF Urine WBC (0-5) /HPF Ur Squamous Epith Cells (0-2) /HPF Calcium Oxalate Crystal Urine Bacteria (None Seen) Hyaline Casts (0-2) /LPF Influenza Type A (PCR) (Negative) Influenza Type B (PCR) (Negative) RSV RNA Qual (PCR) (Negative) SARS-CoV-2 RNA (RT-PCR) (Negative) Independent Interpretation I performed an independent interpretation of an: CT Scan (Met with patient CT scan, no obvious abnormality, no SBO) Radiology Impression Discussion of test interpretation with radiology: I have reviewed the radiologist's reading. Radiologist Impression: FINDINGS: LUNG BASES: There is atelectatic change and/or scarring at the lung bases greater on the right. LIVER, GALLBLADDER, AND BILIARY TREE: The liver is normal in size, shape, and attenuation. No focal hepatic lesion or biliary ductal dilatation is present. There has been a prior cholecystectomy. PANCREAS: Unremarkable. SPLEEN: Unremarkable. ADRENAL GLANDS: Unremarkable. KIDNEYS AND URETERS: The kidneys are normal in size, shape, and attenuation. No hydronephrosis, hydroureter, or calculi seen. No perinephric stranding. BLADDER: Unremarkable. GASTROINTESTINAL TRACT: The small and large bowel are unremarkable. The appendix is unremarkable. ABDOMINAL WALL: No significant hernia is appreciated. LYMPH NODES: Normal. VASCULAR: Unremarkable. PELVIC VISCERA: Unremarkable. OSSEOUS STRUCTURES: There is [id number] diffuse thoracolumbar disc degenerative change. CT/CT abdomen pelvis w IV con IMPRESSION: No acute intra-abdominal process. Fleischner guidelines were followed. Medications Administered Discontinued Medications Generic Name Dose Route Start Last Admin Trade Name Freq PRN Reason Stop Dose Admin Sodium Chloride 1,000 mls @ 999 mls/hr 09/11/23 03:11 09/11/23 05:21 Ns IVCONT 09/11/23 04:11 Infused .Q1H1M ONE Infusion Levofloxacin 500 mg in 100 mls @ 100 mls/hr 09/11/23 04:19 09/11/23 05:28 Levaquin IV 09/11/23 05:18 100 mls/hr ONCE ONE Administration Metronidazole 500 mg in 100 mls @ 100 mls/hr 09/11/23 04:19 09/11/23 05:28 Flagyl IV 09/11/23 05:18 Infused ONCE ONE Infusion Iohexol 100 ml 09/11/23 02:48 09/11/23 02:49 Iohexol 350 Mg/Ml 100 Ml Infus..Btl IV 09/11/23 02:49 100 ml ONCE ONE Administration Morphine Sulfate 4 mg 09/11/23 03:11 09/11/23 03:24 Morphine Sulfate 4 Mg/Ml Cartridge IVPUSH 09/11/23 03:12 4 mg ONCE ONE Administration Protocol Ondansetron HCl 4 mg 09/11/23 03:11 09/11/23 03:24 Ondansetron Hcl 4 Mg/2 Ml Vial IVPUSH 09/11/23 03:12 4 mg ONCE ONE Administration Critical Care Time Critical Care Time Critical Care Time: Yes Total Critical Care Time: 60 Attestation: I have personally provided critical care time. Time includes review of lab data, radiology results, discussion with consultants, and monitoring for potential decompensation. Intervention performed as documented. Discharge Plan Discharge Clinical Impression: Abdominal pain Patient Disposition: Admitted As Inpatient Prescriptions: No Action alcohol swabs [Alcohol Prep Pads] Pads, Medicated 1 pad topical .once a day 90 Days Qty: 100 2RF albuterol sulfate [Ventolin HFA] 90 mcg/actuation HFA aerosol inhaler 1 inh inhalation Q4H PRN (Reason: Shortness Of Breath Or Wheezing) Qty: 8.5 3RF metformin 500 mg tablet 500 mg PO BID clonidine HCl 0.1 mg tablet 0.1 mg PO TID PRN (Reason: Anxiety) insulin glargine [Lantus U-100 Insulin] 100 unit/mL solution 15 unit subcut BEDTIME torsemide 20 mg tablet 40 mg PO BID atorvastatin 10 mg tablet 10 mg PO BEDTIME doxepin 25 mg capsule 25 - 50 mg PO BEDTIME hydroxyzine HCl 50 mg tablet 50 mg PO TID trazodone 150 mg tablet 150 mg PO BEDTIME PRN (Reason: insomnia) hydroxyzine HCl 25 mg tablet 25 mg PO TID PRN (Reason: itch) insulin lispro 100 unit/mL solution 5 unit subcut TID levothyroxine 112 mcg tablet 112 mcg PO DAILY@0600 rizatriptan 5 mg tablet 5 mg PO ONCE PRN (Reason: Migraine Headache) Rx Instructions: may repeat in 2 hours Incruse Ellipta 62.5 mcg/actuation blister with device 1 inh INHALATION DAILY Trulicity 0.75 mg/0.5 mL pen injector 0.75 mg subcut QWEEK oxycodone 5 mg tablet 5 mg PO Q6H PRN (Reason: pain (scale score 7-10)) Qty: 12 0RF Rx Instructions: Partial Fill upon patient request. metronidazole 500 mg tablet 500 mg PO BID 5 Days Qty: 10 0RF cefuroxime axetil 500 mg tablet 500 mg PO BID 5 Days Qty: 10 0RF
[2023-09-11] MEDS: Morphine Sulfate 4 MG/ML CARTRIDGE IVPUSH (03:24)
[2023-09-11] MEDS: ondansetron HCL 4 MG/2 ML VIAL IVPUSH ×2 (03:24→07:54)
[2023-09-11] MEDS: 0.9 % Sodium Chloride 1,000 ML 999 ML IVCONT (03:31)
--- NOTE | 2023-09-11 04:10 | PC.NURSE ---
critical labs: lactic 4.3
[2023-09-11 04:11] LABS: Lactic Acid 4.3 mmol/L (0.5-2.0)
[2023-09-11] MEDS: metroNIDAZOLE/NS 500 MG/100 ML PIGGYBACK 100 MG IV (04:30)
[2023-09-11] MEDS: levoFLOXacin/D5W 500 MG/100 ML PIGGYBACK 100 MG IV (05:28)
[2023-09-11 05:47] LABS: Reflex Lactate? Lactic Acid Added
[2023-09-11] MEDS: LORazepam 2 MG/ML VIAL 1 MG IVPUSH (05:58)
[2023-09-11] MEDS: Prochlorperazine Edisylate 10 MG/2 ML VIAL IVPUSH (05:58)
--- NOTE | 2023-09-11 06:02 | PC.NURSE ---
pt c/o headache, nausea and anxiety. provider aware. pt medicated per MAR. resting comfortably in bed at this time
--- NOTE | 2023-09-11 07:00 | PM.IMHP ---
History of Present Illness Date of Service: 09/11/23 Attending physician on admission: Tomy Alonzo Chief Complaint: RLQ abdominal pain x3 days 58-year-old female with pertinent history of essential hypertension, mixed hyperlipidemia, mood disorder, insulin-dependent diabetes mellitus, hypothyroidism, gastroesophageal reflux disease, congestive heart failure with preserved ejection fraction (HFpEF), obstructive sleep apnea on CPAP, asthma who presents to the emergency department for evaluation of abdominal pain. She was recently admitted (08/25-08/27) for the same symptoms and discharged home on oral antibiotics which she states she took and felt fine for a short while before the symptoms recurred. She rates the pain at a 10/10 at its worst and reports associated multiple episodes of non-projectile emesis and diarrhea since today with also intermittent episode of chills with no fevers. Initial work up done in the emergency room revealed a significant leucocytosis of 20.9 k/mm3 elevated serum lactate at 4.3. His vital signs were initially fairly stable with no tachycardia or tachypnea. An abdominal CT scan done did not reveal any intra-abdominal pathology to explain her symptoms. She received empiric Levaquin and Zosyn following which admission was requested for continued care. When I got to see her, she was still reporting pain despite having received a dose of IV Hydromorphone. Review of Systems Review of Systems: Yes all other systems are reviewed and are negative [facility] Medical History Essential hypertension Acute diarrhea Pre-op examination Cervical radiculopathy Rash of foot [place] albicans infection Cervicalgia Left shoulder pain Environmental allergies Hospital discharge follow-up MARY on CPAP Elevated red blood cell count Screening for hyperlipidemia Chronic pain syndrome Lumbar pain Encounter for annual routine gynecological examination Multiple air fluid levels of small intestine determined by X-ray Abdominal bloating Hypothyroid Sleep apnea Abdominal cramping Edema Anxiety with depression Chronic pain (Unknown) Gastroparesis Left knee pain Hypothyroidism Bilateral shoulder pain Hyperlipidemia LDL goal <70 Degeneration, intervertebral disc, cervical Spondylosis of cervical spine at multiple levels without myelopathy Sleep apnea Renal calculi Incontinence Goiter Disc degeneration, lumbar Spondylosis of lumbar region without myelopathy or radiculopathy Arthropathy of facet joint Insomnia LUDY (generalized anxiety disorder) Moderately severe recurrent major depression Diabetes mellitus Chronic pain syndrome Morbid (severe) obesity due to excess calories Fibromyalgia Small bowel motility disorder Chronic idiopathic constipation Asthma Family History Father Past heart attack Anxiety Mother MOF (multiple organ failure) Brother HIV (human immunodeficiency virus infection) Sister Ovarian cancer Lupus Bone cancer Uterine cancer Tumor Daughter Guillain-[place] Sister Lupus History of open heart surgery Family/Other Depression FH: mental illness Maternal Aunt Breast cancer Maternal Aunt Tumor Surgical History History of knee replacement procedure of right knee History of hernia surgery Hx of colonoscopy History of esophagogastroduodenoscopy (EGD) History of cholecystectomy Delivery by section History of hysterectomy Social History Household Members: None Household Members Other:: Housing: Apartment Are you a primary personal care assistant to a significant other at home: No Do you presently have visiting nurse or other home services: 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) Alcohol intake: never Patient Tobacco Use Status: Never used Tobacco Smoked in Last 30 Days: No e-Cigarette/Vaping Use: Never Used Second Hand Smoke Exposure: Yes Use of substances other than those prescribed or required for medical reasons: No Advance Directives: Yes Advance Directives on File: Yes Advance Directives Date on File: 12/08/21 Patient : No service: No Current occupational status: unemployed and disabled Cognitive needs: No Hearing needs: No Vision needs: No Meds Allergies Allergy/AdvReac Type Severity Reaction Status Date / Time Penicillins Allergy Severe swelling Verified 09/10/23 22:25 adhesive tape [ADHESIVE TAPE] Allergy Intermediate RASH Verified 09/10/23 22:25 amoxicillin [AMOXICILLIN] Allergy Intermediate RASH,SWELLI Verified 09/10/23 22:25 NG ibuprofen [From Motrin] Allergy Intermediate Hypertensio Verified 09/10/23 22:25 n latex Allergy Intermediate Rash Verified 09/10/23 22:25 Active Medications: Home Medications Medication Instructions Recorded Confirmed Last Taken Type atorvastatin 10 mg tablet 10 mg PO BEDTIME 08/25/23 08/25/23 Unknown History clonidine HCl 0.1 mg tablet 0.1 mg PO TID PRN Anxiety 08/25/23 08/25/23 Unknown History doxepin 25 mg capsule 25 - 50 mg PO BEDTIME insomnia 08/25/23 08/25/23 Unknown History dulaglutide 0.75 mg/0.5 mL 0.75 mg subcut QWEEK 08/25/23 08/25/23 Unknown History subcutaneous pen injector (Trulicity) hydroxyzine HCl 25 mg tablet 25 mg PO TID PRN itch 08/25/23 08/25/23 Unknown History hydroxyzine HCl 50 mg tablet 50 mg PO TID itch 08/25/23 08/25/23 Unknown History insulin glargine 100 unit/mL 15 unit subcut BEDTIME 08/25/23 08/25/23 Unknown History subcutaneous solution (Lantus U-100 Insulin) insulin lispro 100 unit/mL 5 unit subcut TID 08/25/23 08/25/23 Unknown History subcutaneous solution levothyroxine 112 mcg tablet 112 mcg PO DAILY@0600 08/25/23 08/25/23 Unknown History metformin 500 mg tablet 500 mg PO BID 08/25/23 08/25/23 Unknown History rizatriptan 5 mg tablet 5 mg PO ONCE PRN Migraine Headache 08/25/23 08/25/23 Unknown History torsemide 20 mg tablet 40 mg PO BID 08/25/23 08/25/23 Unknown History trazodone 150 mg tablet 150 mg PO BEDTIME PRN insomnia 08/25/23 08/25/23 Unknown History umeclidinium 62.5 mcg/actuation 1 inh inhalation DAILY 08/25/23 08/25/23 Unknown History blister powder for inhalation (Incruse Ellipta) Physical Exam Vital Signs and Narrative: Vital Signs: Last Vital Signs Temp 97.9 F 09/11/23 03:49 Pulse 102 H 09/11/23 05:57 Resp 18 09/11/23 05:57 BP 151/66 H 09/11/23 05:57 Pulse Ox 98 09/11/23 05:57 O2 Del Method Room Air 09/11/23 05:57 BMI result Body Mass Index 39.8 General: Obese female in bed. Awake and alert. In pain but not in any cardiorespiratory distress Eyes: No pallor or jaundice. PERRLA, EOMI HENT: Moist oral mucus membranes. No oropharyngeal lesions. Neck: Supple. No cervical adenopathy. No JVD Cardiovascular: Regular rate and rhythm. Normal heart sounds. No murmurs, rubs or gallops. No JVD. No peripheral edema. Respiratory: Normal respiratory effort with no accessory muscle use. CTAB. , CTA bilaterally Gastrointestinal: Abdomen is obese, flabby with tenderness in the RLQ and also the suprapubic area. NABS. No hepatosplenomegaly Extremities: No edema. No calf tenderness. Good peripheral pulses Skin - Warm/Dry. No rashes. No mottling. Capillary refill is < 2 seconds Neurological - AAOx4. Intact speech & cognition. Normal gait & balance. CN II - XII grossly intact but not individually tested. No motor or sensory deficits Hematologic: No bleeding. No ecchymosis. No swollen or tender lymph nodes. Psychiatric: Cooperative. Appropriate mood and affect. Results Labs 09/11/23 01:24 09/11/23 01:24 Labs: Laboratory Results - last 24 hr 09/10/23 09/11/23 09/11/23 22:59 01:24 01:58 MCV 73.4 L MCH 21.9 L MCHC 29.9 L RDW 19.0 H Plt Count 333 D MPV 10.3 Immature Gran % (Auto) 0.4 Neut % (Auto) 92.8 H Lymph % (Auto) 4.9 L [place] % (Auto) 1.7 L Eos % (Auto) 0.0 Baso % (Auto) 0.2 Lymph # (Auto) 1.0 L [place] # (Auto) 0.4 Eos # (Auto) 0.0 Baso # (Auto) 0.0 Abs Immat Gran (auto) 0.09 H Absolute Neuts (auto) 19.4 H Absolute Nucleated RBC 0.000 Nucleated RBC % (auto) 0.0 Smear Tech's Comments VERIFIED Anion Gap 17 Estim Creat Clear Calc 101.7 Estimated GFR > 60 Random Glucose 218 H Lactic Acid Calcium 10.4 H D Total Bilirubin 0.4 AST 15 ALT 17 Alkaline Phosphatase 116 Total Protein 9.1 H Albumin 4.4 Urine Color Yellow Urine Appearance Cloudy Urine pH 5.5 Ur Specific [place] >= 1.030 H Urine Protein 30 (1+) H Urine Glucose (UA) Negative Urine Ketones 15 Urine Blood Trace H Urine Nitrite Negative Ur Leukocyte Esterase Small (1+) H Urine RBC 3-5 H Urine WBC 11-20 Ur Squamous Epith Cells 6-10 Calcium Oxalate Crystal Present Urine Bacteria 2+ Hyaline Casts 6-10 Influenza Type A (PCR) NEGATIVE Influenza Type B (PCR) NEGATIVE RSV RNA Qual (PCR) NEGATIVE SARS-CoV-2 RNA (RT-PCR) NEGATIVE 09/11/23 03:40 MCV MCH MCHC RDW Plt Count MPV Immature Gran % (Auto) Neut % (Auto) Lymph % (Auto) [place] % (Auto) Eos % (Auto) Baso % (Auto) Lymph # (Auto) [place] # (Auto) Eos # (Auto) Baso # (Auto) Abs Immat Gran (auto) Absolute Neuts (auto) Absolute Nucleated RBC Nucleated RBC % (auto) Smear Tech's Comments Anion Gap Estim Creat Clear Calc Estimated GFR Random Glucose Lactic Acid 4.3 H* Calcium Total Bilirubin AST ALT Alkaline Phosphatase Total Protein Albumin Urine Color Urine Appearance Urine pH Ur Specific [place] Urine Protein Urine Glucose (UA) Urine Ketones Urine Blood Urine Nitrite Ur Leukocyte Esterase Urine RBC Urine WBC Ur Squamous Epith Cells Calcium Oxalate Crystal Urine Bacteria Hyaline Casts Influenza Type A (PCR) Influenza Type B (PCR) RSV RNA Qual (PCR) SARS-CoV-2 RNA (RT-PCR) Imaging Radiologist's Impressions: Impressions Abdomen/Pelvis CT 09/11/23 02:35 IMPRESSION: No acute intra-abdominal process. Fleischner guidelines were followed. Assessment and Plan (1) Abdominal pain: Qualifiers: Abdominal location: right lower quadrant Qualified Code(s): R10.31 - Right lower quadrant pain Status: Acute (2) Leucocytosis: Qualifiers: Leukocytosis type: leukemoid reaction Qualified Code(s): D72.823 - Leukemoid reaction Status: Acute (3) Elevated lactic acid level: Status: Acute (4) Type 2 diabetes mellitus: Qualifiers: Diabetes mellitus intermediate insulin use: with long lines operator use Diabetes mellitus complication status: without complication Qualified Code(s): E11.9 - Type 2 diabetes mellitus without complications; Z79.4 - USP (current) use of insulin Status: Acute Plan 58-year-old female with pertinent history of essential hypertension, mixed hyperlipidemia, mood disorder, insulin-dependent diabetes mellitus, hypothyroidism, gastroesophageal reflux disease, congestive heart failure with preserved ejection fraction, obstructive sleep apnea on CPAP, asthma here with 1. RLQ abdominal pain - reports very intense pain (10/10) in the RLQ radiating to the suprapubic area - pain not related to meals - labs show elevated lactic acid and a leucocytosis - CT scan with no acute pathology - differential diagnosis to include acute mesenteric ischemia - will continue with IV antibiotics for now (will trial a dose of Zosyn while she is in the ED) 2. Leucocytosis - likely reactive - no obvious signs of infection - monitor 3. Elevated serum lactate - differential diagnosis to include gut ischemia - continue IV fluids - hold torsemide - get surgery to see 4. Type 2 Diabetes Mellitus - she is reportedly on Lantus 15 units in AM and 5 units in PM - will switch to 10 units twice a day while she is NPO - hold metformin - closely monitor blood sugars 5. Hypothyroidism - resume Levothyroxine Total time managing care of this patient today: 75 minutes. Quality Stroke Does the patient have a stroke diagnosis?: No VTE Prior VTE?: No VTE Risk Level:: Medical - moderate - high VTE Device Contraindication: N/A - Device Ordered VTE Drug Contraindication: N/A - Med Ordered
[2023-09-11 07:26] LABS: ~Lactic Acid-LAB USE ONLY 4.5 mmol/L (0.5-2.0)
[2023-09-11] MEDS: HYDROmorphone HCl 1 MG/ML SYRINGE IVPUSH (07:40)
[2023-09-11] MEDS: Piperacillin Sodium/Tazobactam 3.375 GM in 0.9 % Sodium Chloride 50 ML IV ×3 (07:55→20:50)
[2023-09-11] MEDS: Enoxaparin Sodium 40 MG/0.4 ML SYRINGE SUBCUT (07:55)
--- NOTE | 2023-09-11 07:59 | P.CONGS_ITS ---
History of Present Illness Consult details Consult date: 09/11/23 Reason for consult: abdominal pain Narrative: The patient is a 58-year-old woman who I initially evaluated about 7:45 this morning due to leukocytosis, lactic acidosis abdominal pain and concern over possible intestinal ischemia. While the patient speaks some Slovenian, interpretive services was used in a follow-up full H&P to obtain the history. Patient notes several years of abdominal pain and this most recent episode started about a week ago, however she developed vomiting and diarrhea yesterday and presented to the emergency department for evaluation. At the time of re- evaluation just before dictation of this note, via interpretive services, she reports right lower quadrant pain. She denies any rectal bleeding or unexplained weight loss. She is unaware of any personal or family history of GI malignancy but notes a family history of coronary artery disease and type 2 diabetes. Gastroenterology notes including Dr. Ballard is a recent consultation from last month and possible diverticulitis was reviewed. GI consultation this admission is currently pending. Review of Systems 2 Review of Systems: Yes all other systems are reviewed and are negative Constitutional: Constitutional: Reports as per [facility] Past Medical History Medical History Essential hypertension Acute diarrhea Pre-op examination Cervical radiculopathy Rash of foot [place] albicans infection Cervicalgia Left shoulder pain Environmental allergies Hospital discharge follow-up MRAY on CPAP Elevated red blood cell count Screening for hyperlipidemia Chronic pain syndrome Lumbar pain Encounter for annual routine gynecological examination Multiple air fluid levels of small intestine determined by X-ray Abdominal bloating Hypothyroid Sleep apnea Abdominal cramping Edema Anxiety with depression Chronic pain (Unknown) Gastroparesis Left knee pain Hypothyroidism Bilateral shoulder pain Hyperlipidemia LDL goal <70 Degeneration, intervertebral disc, cervical Spondylosis of cervical spine at multiple levels without myelopathy Sleep apnea Renal calculi Incontinence Goiter Disc degeneration, lumbar Spondylosis of lumbar region without myelopathy or radiculopathy Arthropathy of facet joint Insomnia LUDY (generalized anxiety disorder) Moderately severe recurrent major depression Diabetes mellitus Chronic pain syndrome Morbid (severe) obesity due to excess calories Fibromyalgia Small bowel motility disorder Chronic idiopathic constipation Asthma Family History Family History Father Past heart attack Anxiety Mother MOF (multiple organ failure) Brother HIV (human immunodeficiency virus infection) Sister Ovarian cancer Lupus Bone cancer Uterine cancer Tumor Daughter Guillain-[place] Sister Lupus History of open heart surgery Family/Other Depression FH: mental illness Maternal Aunt Breast cancer Maternal Aunt Tumor Surgical History Surgical History History of knee replacement procedure of right knee History of hernia surgery Hx of colonoscopy History of esophagogastroduodenoscopy (EGD) History of cholecystectomy Delivery by section History of hysterectomy Social History Social History Household Members: None Household Members Other:: Housing: Apartment Are you a primary progressive care manager to a significant other at home: No Do you presently have visiting nurse or 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 home 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) Alcohol intake: never Patient Tobacco Use Status: Never used Tobacco Smoked in Last 30 Days: No e-Cigarette/Vaping Use: Never Used Second Hand Smoke Exposure: Yes Use of substances other than those prescribed or required for medical reasons: No Advance Directives: Yes Advance Directives on File: Yes Advance Directives Date on File: 12/08/21 Patient : No service: No Current occupational status: unemployed and disabled Cognitive needs: No Hearing needs: No Vision needs: No Meds Allergies Allergy/AdvReac Type Severity Reaction Status Date / Time Penicillins Allergy Severe swelling Verified 09/10/23 22:25 adhesive tape [ADHESIVE TAPE] Allergy Intermediate RASH Verified 09/10/23 22:25 amoxicillin [AMOXICILLIN] Allergy Intermediate RASH,SWELLI Verified 09/10/23 22:25 NG ibuprofen [From Motrin] Allergy Intermediate Hypertensio Verified 09/10/23 22:25 n latex Allergy Intermediate Rash Verified 09/10/23 22:25 Active Medications: Current Medications Acetaminophen (Acetaminophen 325 Mg Tablet) 650 mg PO Q6H PRN PRN Reason: Pain, Mild (Pain Scale 1-3) Al Hydroxide/Mg Hydroxide (Magnesium Hydrox/Alum Hydrox 30 Ml Oral.Susp) 30 ml PO Q4H PRN PRN Reason: Heartburn/Nausea Enoxaparin Sodium (Enoxaparin Sodium 40 Mg/0.4 Ml Syringe) 40 mg SUBCUT Q24H RADHA Last Admin: 09/11/23 07:55 Dose: 40 mg Hydromorphone HCl (Hydromorphone Hcl 1 Mg/Ml Syringe) 0.5 mg IVPUSH Q4H PRN; Protocol PRN Reason: Pain, Severe (Pain Scale 7-10) Melatonin (Melatonin 3 Mg Tablet) 6 mg PO BEDTIME PRN PRN Reason: Insomnia Ondansetron HCl (Ondansetron Hcl 4 Mg/2 Ml Vial) 4 mg IVPUSH Q8H PRN PRN Reason: Nausea and Vomiting Last Admin: 09/11/23 07:54 Dose: 4 mg Sodium Chloride (0.9 % Sodium Chloride Flush 3 Ml Syringe) 3 ml IVFLUSH [facility] Last Admin: 09/11/23 07:56 Dose: Not Given Home Medications Medication Instructions Recorded Confirmed Last Taken Type atorvastatin 10 mg tablet 10 mg PO BEDTIME 08/25/23 09/11/23 Unknown History clonidine HCl 0.1 mg tablet 0.1 mg PO TID PRN Anxiety 08/25/23 09/11/23 Unknown History doxepin 25 mg capsule 25 - 50 mg PO BEDTIME PRN insomnia 08/25/23 09/11/23 Unknown History dulaglutide 0.75 mg/0.5 mL 0.75 mg subcut QWEEK 08/25/23 09/11/23 Unknown History subcutaneous pen injector (Trulicity) hydroxyzine HCl 50 mg tablet 50 mg PO TID PRN itch 08/25/23 09/11/23 Unknown History insulin glargine 100 unit/mL 15 unit subcut BEDTIME 08/25/23 09/11/23 Unknown History subcutaneous solution (Lantus U-100 Insulin) insulin lispro 100 unit/mL 5 unit subcut TID 08/25/23 09/11/23 Unknown History subcutaneous solution levothyroxine 112 mcg tablet 112 mcg PO DAILY@0600 08/25/23 09/11/23 Unknown History metformin 500 mg tablet 500 mg PO BID 08/25/23 09/11/23 Unknown History rizatriptan 5 mg tablet 5 mg PO ONCE PRN Migraine Headache 08/25/23 09/11/23 Unknown History trazodone 150 mg tablet 150 mg PO BEDTIME PRN insomnia 08/25/23 09/11/23 Unknown History acetaminophen 650 mg 650 mg PO Q8H PRN arthritis 09/11/23 09/11/23 Unknown History tablet,extended release amlodipine 10 mg tablet 10 mg PO DAILY 09/11/23 09/11/23 Unknown History bumetanide 2 mg tablet 2 mg PO BID 09/11/23 09/11/23 Unknown History lorazepam 1 mg tablet 1 mg PO DAILY PRN ANXIETY 09/11/23 09/11/23 Unknown History metoclopramide HCl 10 mg tablet 10 mg PO QID 09/11/23 09/11/23 Unknown History umeclidinium 62.5 mcg/actuation 1 inh inhalation DAILY 09/11/23 09/11/23 Unknown History blister powder for inhalation (Incruse Ellipta) Physical Exam 2 Vital Signs: Vital Signs: Last Vital Signs Temp 97.9 F 09/11/23 03:49 Pulse 116 H 09/11/23 07:12 Resp 16 09/11/23 07:12 BP 177/76 H 09/11/23 07:12 Pulse Ox 93 09/11/23 07:12 O2 Del Method Room Air 09/11/23 07:12 BMI result Body Mass Index 39.8 The patient is non-toxic; she appears tired and uncomfortable but is in no acute distress NC/AT, PERRLA, EOMI Mood, affect & judgment all appear appropriate Sclera anicteric conjunctiva pink and moist Oropharynx is clear with no aphthous ulcers, Mallampati class 4, mucous membranes moist Heart is regular, normal S1-S2 no rubs or murmurs Lungs are clear and equal anteriorly with no audible wheezing, rubs or dullness to percussion Abdomen is obese with no demonstrable hernias. No HSM, rebound, rigidity, guarding, masses or bruits are present. Rectal exam is deferred Skin has good turgor and is free of rashes Extremities free of cyanosis clubbing edema Results Labs 09/11/23 01:24 09/11/23 01:24 Labs: Abnormal lab results 09/11/23 09/11/23 09/11/23 Range/Units 01:24 01:58 03:40 WBC 20.9 H (4.8-10.8) X10*3/uL RBC 5.93 H D (4.20-5.50) X10*6/uL MCV 73.4 L (80.0-98.0) fL MCH 21.9 L (27.0-33.0) pg MCHC 29.9 L (31.0-35.0) g/dl RDW 19.0 H (11.0-16.0) % Neut % (Auto) 92.8 H (45-73) % Lymph % (Auto) 4.9 L (20-40) % [place] % (Auto) 1.7 L (2-11) % Lymph # (Auto) 1.0 L (1.2-4.9) X10*3/uL Abs Immat Gran (auto) 0.09 H (0.00-0.03) X10*3/uL Absolute Neuts (auto) 19.4 H (2.0-8.3) x10*3/uL BUN 17 H (9-16) mg/dL Random Glucose 218 H (60-115) mg/dL Lactic Acid 4.3 H* (0.5-2.0) mmol/L Lactic Acid F/U @ 2Hr (0.5-2.0) mmol/L Calcium 10.4 H D (8.4-10.2) mg/dL Total Protein 9.1 H (6.5-8.0) g/dL Ur Specific [place] >= 1.030 H (1.005-1.025) Urine Protein 30 (1+) H (Neg-Trace) mg/dL Urine Blood Trace H (Negative) Ur Leukocyte Esterase Small (1+) H (Negative) Urine RBC 3-5 H (0-2) /HPF 09/11/23 Range/Units 06:37 WBC (4.8-10.8) X10*3/uL RBC (4.20-5.50) X10*6/uL MCV (80.0-98.0) fL MCH (27.0-33.0) pg MCHC (31.0-35.0) g/dl RDW (11.0-16.0) % Neut % (Auto) (45-73) % Lymph % (Auto) (20-40) % [place] % (Auto) (2-11) % Lymph # (Auto) (1.2-4.9) X10*3/uL Abs Immat Gran (auto) (0.00-0.03) X10*3/uL Absolute Neuts (auto) (2.0-8.3) x10*3/uL BUN (9-16) mg/dL Random Glucose (60-115) mg/dL Lactic Acid (0.5-2.0) mmol/L Lactic Acid F/U @ 2Hr 4.5 H* (0.5-2.0) mmol/L Calcium (8.4-10.2) mg/dL Total Protein (6.5-8.0) g/dL Ur Specific [place] (1.005-1.025) Urine Protein (Neg-Trace) mg/dL Urine Blood (Negative) Ur Leukocyte Esterase (Negative) Urine RBC (0-2) /HPF Short CBC 09/11/23 Range/Units 01:24 WBC 20.9 H (4.8-10.8) X10*3/uL Hgb 13.0 D (12.0-16.0) g/dl Hct 43.5 D (37.0-47.0) % Plt Count 333 D (160-400) X10*3/uL BMP 09/11/23 01:24 Sodium 141 Potassium 4.3 Chloride 102 Carbon Dioxide 26 BUN 17 H Creatinine 0.80 Calcium 10.4 H D Liver Function 09/11/23 Range/Units 01:24 Total Bilirubin 0.4 (0.0-1.0) mg/dL AST 15 (5-31) U/L ALT 17 (0-31) U/L Alkaline Phosphatase 116 (39-117) U/L Albumin 4.4 (3.5-5.0) g/dL Urine 09/11/23 Range/Units 01:58 Urine Color Yellow Urine Appearance Cloudy Urine pH 5.5 (5.0-9.0) Ur Specific [place] >= 1.030 H (1.005-1.025) Urine Protein 30 (1+) H (Neg-Trace) mg/dL Urine Glucose (UA) Negative (Negative) mg/dL All other labs normal. Imaging Abdomen CT scan report/results: report reviewed and image reviewed CT scan - pelvis: report reviewed and image reviewed Assessment and Plan (1) Type 2 diabetes mellitus: Qualifiers: Diabetes mellitus complication status: without complication Diabetes mellitus [facility] insulin use: with buttermaker helper use Qualified Code(s): E11.9 - Type 2 diabetes mellitus without complications; Z79.4 - senior care (current) use of insulin Status: Acute (2) Elevated lactic acid level: Status: Acute (3) Erosive esophagitis: Status: Acute (4) Leucocytosis: Status: Chronic (5) Hypertension: Qualifiers: Hypertension type: essential hypertension Qualified Code(s): I10 - Essential (primary) hypertension Status: Acute Plan I reviewed the CT images in can see IV contrast to the smaller vessels; clinically, I do not believe this is intestinal ischemia. Given the chronicity, alternating diarrhea and constipation, it is possible the patient has inflammatory bowel disease, but there has been no diarrhea/bloody diarrhea typical of mucosal sloughing in ischemic bowel. Given the patient's chronic issues intermittently involving diarrhea, GI input and discussion of possible inflammatory bowel disease is in order. Consideration to SMA ultrasonography is deferred after GI input. There was a subtype of diabetics who are ketosis prone to lactic acidosis, and this may be contributing to her acidosis if another issue such as gastroenteritis, inflammatory bowel disease is interfering with her physiology. I just re-examined the patient at 1330 and she is more comfortable and has not demonstrated peritoneal sign since evaluation around 07:45 compare to now. GI input is currently pending. Dr. Ballard had seen the patient during her last hospitalization for presumed diverticulitis few weeks ago and covering GI will see the patient later today. Will follow. Keep NPO except for meds, ice chips and sips for now. Please call me if there are significant changes that mandate re-evaluation. Procedures Date of Service Date of Service: 09/11/23
--- NOTE | 2023-09-11 08:02 | PHA.MEDREC ---
Pharmacy Consult ? Medication Reconciliation Pharmacy has completed the medication reconciliation.
--- NOTE | 2023-09-11 08:02 | PC.NURSE ---
ASSUMED CARE OF THIS PT FROM DAVID KELLEY. PT C/O ONGOING 07/13 RLQ PAIN, NAUSEA, DIZZINESS. ABD SOFT, TENDER. ASSISTED TO COMMODE, VOIDING WITH NO ISSUE. STATES FEELS LIKE ROOM IS SPINNING , DIZZINESS WORSENED WHEN SHE TURNS HER HEAD. ENDORSES HX VERTIGO, HAS TAKEN MECLIZINE AT HOME, ORTHOS NEGATIVE. SECOND PIV PLACED IN R HAND, IVF & ABX RUNNING, MEDICATED FOR PAIN. HOSPITALIST NOTIFIED OF ELEVATED LACTATE, ONGOING DIZZINESS.
[2023-09-11 08:42] LABS: Reflex Lactate? 2 Y
[2023-09-11 08:46] LABS: Estimated Average Glucose 137 mg/dL; Hemoglobin A1c % 6.4 % (<6.0)
[2023-09-11 08:54] LABS: D Dimer High Sensitivity 314 NG/ML
[2023-09-11 09:28] LABS: ~Lactic Acid-LAB USE ONLY 3.2 mmol/L (0.5-2.0)
[2023-09-11] MEDS: Magnesium Hydrox/Alum Hydrox 30 ML ORAL.SUSP PO (09:28)
[2023-09-11] MEDS: Acetaminophen 325 MG TABLET 650 MG PO ×3 (09:28→22:51)
[2023-09-11] MEDS: Levothyroxine Sodium 112 MCG TABLET PO (10:38)
[2023-09-11] MEDS: Bumetanide 1 MG TABLET 2 MG PO ×2 (10:38→20:55)
[2023-09-11] MEDS: amLODIPine Besylate 10 MG TABLET PO (10:38)
[2023-09-11] MEDS: Lactated Ringers 1,000 ML 125 ML IVCONT ×2 (10:39→19:03)
[2023-09-11] MEDS: Insulin Lispro 100 UNIT/ML 3 ML VIAL SUBCUT (12:27)
[2023-09-11] MEDS: HYDROmorphone HCl 1 MG/ML SYRINGE 0.5 MG IVPUSH ×3 (12:28→21:34)
[2023-09-11] MEDS: hydrOXYzine HCL 50 MG TABLET PO (14:39)
[2023-09-11] MEDS: 0.9 % Sodium Chloride Flush 3 ML SYRINGE IVFLUSH (15:42)
--- NOTE | 2023-09-11 16:04 | MHC.EDTECH ---
Applied lotion on patients feet.
[2023-09-11] MEDS: cloNIDine HCL 0.1 MG TABLET PO (18:59)
[2023-09-11] MEDS: Atorvastatin Calcium 10 MG TABLET PO (20:55)
[2023-09-11] MEDS: LORazepam 1 MG TABLET PO (23:51)
[2023-09-12] VITALS (8 sets, daily range): BP systolic 109–126; BP diastolic 46–72; PULSE 72–116; RESP 16–20; TEMP 36–37.2; O2SAT 90–96
[2023-09-12 00:04] LABS: Glucose, Whole Blood 98 mg/dL (60-115)
[2023-09-12 00:04] LABS: Glucose, Whole Blood 110 mg/dL (60-115)
[2023-09-12 00:04] LABS: Glucose, Whole Blood 155 mg/dL (60-115)
--- NOTE | 2023-09-12 00:30 | PC.NURSE ---
Pt reports wearing CPAP at home to sleep and would like to have one tonight. RT notified.
[2023-09-12] MEDS: 0.9 % Sodium Chloride Flush 3 ML SYRINGE IVFLUSH ×2 (00:34→09:02)
[2023-09-12] MEDS: Lactated Ringers 1,000 ML 125 ML IVCONT ×2 (02:27→10:49)
[2023-09-12] MEDS: Piperacillin Sodium/Tazobactam 3.375 GM in 0.9 % Sodium Chloride 50 ML IV (02:27)
[2023-09-12] MEDS: Levothyroxine Sodium 112 MCG TABLET PO (05:30)
[2023-09-12] MEDS: HYDROmorphone HCl 1 MG/ML SYRINGE 0.5 MG IVPUSH ×3 (05:30→22:22)
--- NOTE | 2023-09-12 05:33 | PC.NURSE ---
CPAP removed per patient as patient is awake. Reports generalized body pain /. Medicated as per the MAR. Pt tolerated well.
[2023-09-12 06:16] LABS: MANUAL DIFF FLAG NO
[2023-09-12 06:20] LABS: Basophils Percent Auto 0.3 % (0-2); Eosinophils Absolute Auto 0.2 X10*3/uL (0.0-0.4); Eosinophils Percent Auto 2.1 % (0-4); Hematocrit 33.4 % (37.0-47.0); Hemoglobin 9.9 g/dl (12.0-16.0); Imm Gran Abs Auto 0.04 X10*3/uL (0.00-0.03); Imm Gran Pct Auto 0.4 % (0.0-0.4); Lymphocytes Absolute Auto 2.6 X10*3/uL (1.2-4.9); Mean Corpuscular HGB Conc 29.6 g/dl (31.0-35.0); Mean Corpuscular Hemoglobin 22.1 pg (27.0-33.0); Mean Corpuscular Volume 74.7 fL (80.0-98.0); Mean Platelet Volume 10.6 fL (9.4-12.3); Monocytes Absolute Auto 0.5 X10*3/uL (0.1-1.2); Monocytes Percent Auto 5.4 % (2-11); Neutrophils Absolute Auto 6.5 x10*3/uL (2.0-8.3); Neutrophils Percent Auto 65.8 % (45-73); Platelet Count 268 X10*3/uL (160-400); Red Blood Count 4.47 X10*6/uL (4.20-5.50); Red Cell Distribution Width 18.3 % (11.0-16.0); White Blood Count 9.9 X10*3/uL (4.8-10.8)
[2023-09-12 06:38] LABS: Anion Gap 13 (12-20); Blood Urea Nitrogen 7 mg/dL (9-16); Calcium 8.6 mg/dL (8.4-10.2); Carbon Dioxide 28 mmol/L (22-29); Chloride 104 mmol/L (96-108); Estimated Glomerular Filt Rate > 60; Glucose Random 119 mg/dL (60-115); Magnesium 1.7 mg/dL (1.6-2.6); Potassium 3.2 mmol/L (3.3-5.1); Sodium 142 mmol/L (135-145)
[2023-09-12] MEDS: Enoxaparin Sodium 40 MG/0.4 ML SYRINGE SUBCUT (06:58)
--- NOTE | 2023-09-12 07:30 | PC.NURSE ---
DR. PATEL (SURGEON) AT BEDSIDE, PT AWARE OF PLAN OF CARE.
[2023-09-12 07:38] LABS: Glucose, Whole Blood 108 mg/dL (60-115)
--- NOTE | 2023-09-12 07:48 | P.PNGS_ITS ---
Subjective Subjective Date of Service: 09/12/23 Physical Exam 2 Vital Signs: Vital Signs: Last Vital Signs Temp 98.9 F 09/12/23 07:36 Pulse 96 09/12/23 07:36 Resp 18 09/12/23 07:36 BP 126/60 09/12/23 07:36 Pulse Ox 90 L 09/12/23 07:36 O2 Del Method Room Air 09/12/23 07:36 BMI result Body Mass Index 39.8 Objective Data Active Medications Acetaminophen (Acetaminophen 325 Mg Tablet) 650 mg PO Q6H PRN PRN Reason: Pain, Mild (Pain Scale 1-3) Last Admin: 09/11/23 22:51 Dose: 650 mg Documented By: ERASTO Al Hydroxide/Mg Hydroxide (Magnesium Hydrox/Alum Hydrox 30 Ml Oral.Susp) 30 ml PO Q4H PRN PRN Reason: Heartburn/Nausea Last Admin: 09/11/23 09:28 Dose: 30 ml Documented By: ARACELY Albuterol Sulfate (Albuterol Sulfate 90 Mcg 8 Gm Inhaler) 1 puff INHALE Q4H PRN PRN Reason: Shortness Of Breath Or Wheezing Amlodipine Besylate (Amlodipine Besylate 10 Mg Tablet) 10 mg PO DAILY [facility]; Protocol Last Admin: 09/11/23 10:38 Dose: 10 mg Documented By: ARACELY Atorvastatin Calcium (Atorvastatin Calcium 10 Mg Tablet) 10 mg PO BEDTIME [facility] Last Admin: 09/11/23 20:55 Dose: 10 mg Documented By: ERASTO Bumetanide (Bumetanide 1 Mg Tablet) 2 mg PO BID [facility]; Protocol Last Admin: 09/11/23 20:55 Dose: 2 mg Documented By: ERASTO Clonidine HCl (Clonidine Hcl 0.1 Mg Tablet) 0.1 mg PO TID PRN; Protocol PRN Reason: Anxiety Last Admin: 09/11/23 18:59 Dose: 0.1 mg Documented By: ERASTO Dextrose (Dextrose 50 % 25 Gm/50 Ml Syringe) 25 gm IVPUSH Q15M PRN; Protocol PRN Reason: per Hypoglycemia Standing Ord. Doxepin HCl (Doxepin Hcl 25 Mg Capsule) 25 mg PO BEDTIME PRN PRN Reason: insomnia Enoxaparin Sodium (Enoxaparin Sodium 40 Mg/0.4 Ml Syringe) 40 mg SUBCUT Q24H [facility] Last Admin: 09/12/23 06:58 Dose: 40 mg Documented By: QUANG Glucose (Glucose Gel 15 Gm Gel..Gram.) 15 gm PO Q15M PRN; Protocol PRN Reason: per Hypoglycemia Standing Ord. Hydromorphone HCl (Hydromorphone Hcl 1 Mg/Ml Syringe) 0.5 mg IVPUSH Q4H PRN; Protocol PRN Reason: Pain, Severe (Pain Scale 7-10) Last Admin: 09/12/23 05:30 Dose: 0.5 mg Documented By: QUANG Hydroxyzine HCl (Hydroxyzine Hcl 50 Mg Tablet) 50 mg PO TID PRN PRN Reason: itch Last Admin: 09/11/23 14:39 Dose: 50 mg Documented By: JIMMY Lactated Ringer's (Lr) 1,000 mls @ 125 mls/hr IVCONT .Q8H COUNTS INCLUDE 234 BEDS AT THE [facility] Last Admin: 09/12/23 02:27 Dose: 125 mls/hr Documented By: QUANG Piperacillin Sod/Tazobactam (Sod 3.375 gm/ Sodium Chloride) 50 mls @ 100 mls/hr IV Q6H COUNTS INCLUDE 234 BEDS AT THE [facility] Last Infusion: 09/12/23 03:08 Dose: Infused Documented By: QUANG Promethazine HCl 12.5 mg/ (Sodium Chloride) 50.5 mls @ 202 mls/hr IV Q6H PRN PRN Reason: Nausea and Vomiting Last Infusion: 09/11/23 13:10 Dose: Infused Documented By: JIMMY Insulin Glargine (Insulin Glargine,Hum.Rec.Anlog 100 Unit/Ml 10 Ml Vial) 15 unit SUBCUT BEDTIME COUNTS INCLUDE 234 BEDS AT THE [facility] Last Admin: 09/11/23 20:57 Dose: Not Given Documented By: ERASTO Non-Admin Reason: NPO Insulin Human Lispro (Insulin Lispro 100 Unit/Ml 3 Ml Vial) 0 unit SUBCUT QIDACHS COUNTS INCLUDE 234 BEDS AT THE [facility]; Protocol Last Admin: 09/11/23 21:19 Dose: Not Given Documented By: ERASTO Non-Admin Reason: No Insulin Coverage Levothyroxine Sodium (Levothyroxine Sodium 112 Mcg Tablet) 112 mcg PO DAILY@0600 COUNTS INCLUDE 234 BEDS AT THE [facility] Last Admin: 09/12/23 05:30 Dose: 112 mcg Documented By: QUANG Lorazepam (Lorazepam 1 Mg Tablet) 1 mg PO DAILY PRN PRN Reason: Anxiety Last Admin: 09/11/23 23:51 Dose: 1 mg Documented By: QUANG Meclizine HCl (Meclizine Hcl 25 Mg Tablet) 25 mg PO Q6H PRN PRN Reason: vertigo Melatonin (Melatonin 3 Mg Tablet) 6 mg PO BEDTIME PRN PRN Reason: Insomnia Non-Formulary Medication (Dulaglutide [Trulicity]) 0.75 mg SUBCUT Q7D [facility] Non-Formulary Medication (Rizatriptan) 5 mg PO ONCE PRN PRN Reason: Migraine Headache Ondansetron HCl (Ondansetron Hcl 4 Mg/2 Ml Vial) 4 mg IVPUSH Q8H PRN PRN Reason: Nausea and Vomiting Last Admin: 09/11/23 07:54 Dose: 4 mg Documented By: ARACELY Sodium Chloride (0.9 % Sodium Chloride Flush 3 Ml Syringe) 3 ml IVFLUSH QSHIFT [facility] Last Admin: 09/12/23 00:34 Dose: 3 ml Documented By: QUANG Tiotropium [place] (Tiotropium [place] 2.5 Mcg 1 Puff/2.5 Mcg Mist.Inhal) 2 puff INHALE RDAILY [facility] Trazodone HCl (Trazodone Hcl 50 Mg Tablet) 150 mg PO BEDTIME PRN PRN Reason: insomnia Labs 09/12/23 06:10 09/12/23 06:10 Labs: Laboratory Results - last 24 hr 09/11/23 09/11/23 09/11/23 07:29 08:22 09:09 MCV MCH MCHC RDW Plt Count MPV Immature Gran % (Auto) Neut % (Auto) Lymph % (Auto) [place] % (Auto) Eos % (Auto) Baso % (Auto) Lymph # (Auto) [place] # (Auto) Eos # (Auto) Baso # (Auto) Abs Immat Gran (auto) Absolute Neuts (auto) Absolute Nucleated RBC Nucleated RBC % (auto) D-Dimer High Sensitivty 314 Hold Blue Top SEE NOTE Anion Gap Estim Creat Clear Calc Estimated GFR POC Glucose Random Glucose Estimat Average Glucose 137 Hemoglobin A1c % 6.4 H Lactic Acid TNP Lactic Acid F/U @ 4Hr 3.2 H* Calcium Magnesium 1209/11/23 09/11/23 11:19 16:40 20:36 MCV MCH MCHC RDW Plt Count MPV Immature Gran % (Auto) Neut % (Auto) Lymph % (Auto) [place] % (Auto) Eos % (Auto) Baso % (Auto) Lymph # (Auto) [place] # (Auto) Eos # (Auto) Baso # (Auto) Abs Immat Gran (auto) Absolute Neuts (auto) Absolute Nucleated RBC Nucleated RBC % (auto) D-Dimer High Sensitivty Hold Blue Top Anion Gap Estim Creat Clear Calc Estimated GFR POC Glucose 155 H 98 110 Random Glucose Estimat Average Glucose Hemoglobin A1c % Lactic Acid Lactic Acid F/U @ 4Hr Calcium Magnesium 09/12/23 09/12/23 06:10 07:34 MCV 74.7 L MCH 22.1 L MCHC 29.6 L RDW 18.3 H Plt Count 268 MPV 10.6 Immature Gran % (Auto) 0.4 Neut % (Auto) 65.8 Lymph % (Auto) 26.0 [place] % (Auto) 5.4 Eos % (Auto) 2.1 Baso % (Auto) 0.3 Lymph # (Auto) 2.6 [place] # (Auto) 0.5 Eos # (Auto) 0.2 Baso # (Auto) 0.0 Abs Immat Gran (auto) 0.04 H Absolute Neuts (auto) 6.5 Absolute Nucleated RBC 0.000 Nucleated RBC % (auto) 0.0 D-Dimer High Sensitivty Hold Blue Top Anion Gap 13 Estim Creat Clear Calc 107.0 Estimated GFR > 60 POC Glucose 108 Random Glucose 119 H Estimat Average Glucose Hemoglobin A1c % Lactic Acid Lactic Acid F/U @ 4Hr Calcium 8.6 D Magnesium 1.7 Microbiology Microbiology Results: Microbiology 09/11/23 03:46 Blood Culture - Preliminary Blood - Venous No growth after 24 hours. 09/11/23 03:40 Blood Culture - Preliminary Blood - Venous No growth after 24 hours. Procedures Date of Service Date of Service: 09/12/23 Progress Note: A&P Assessment and plan (1) Elevated lactic acid level: Status: Acute (2) Type 2 diabetes mellitus: Status: Acute (3) Abdominal pain: Status: Acute (4) Hyperparathyroidism: Status: Acute (5) Acute diverticulitis: Status: Acute (6) Hypertension: Status: Acute Plan White blood cell count has normalized but subjectively, the patient reports ongoing abdominal pain about the same level as yesterday primarily in her right lower quadrant. CT from admission was bland and her history is inconsistent with ischemia. Await GI input She denies flatus and there is no peritoneal sign on abdominal exam. Await GI input. If the patient is interested in clears, that is okay from my perspective but we are awaiting GI input regarding this recurring problem. Would consider repeat CT with oral and IV contrast before considering operative intervention ( diagnostic laparoscopy) given the interval lab improvement and previous negative CT of the abdomen and pelvis. I suspect laparoscopy will be low yield. Time Spent With Patient Time: Total time managing care of this patient today ____ minutes. Quality Stroke Does the patient have a stroke diagnosis?: No VTE Prior VTE?: No VTE Risk Level:: Medical - moderate - high VTE Device Contraindication: N/A - Device Ordered VTE Drug Contraindication: N/A - Med Ordered
--- NOTE | 2023-09-12 08:40 | MHC.EDTECH ---
patient washed up and new ita and socks. patient independent for task.
[2023-09-12] MEDS: Tiotropium Bromide 2.5 mcg 1 PUFF/2.5 MCG MIST.INHAL 2 PUFF INHALE (08:42)
[2023-09-12] MEDS: Bumetanide 1 MG TABLET 2 MG PO ×2 (08:56→19:56)
[2023-09-12] MEDS: amLODIPine Besylate 10 MG TABLET PO (08:56)
--- NOTE | 2023-09-12 09:00 | PC.NURSE ---
PT IS A/O X 4 NO SOB/MEKHI NOTED SPEAKS IN FULL SENTENCES. PT HAD HER ADL CARE AT BEDSIDE. SITTING AT THE SIDE OF BED. IVF INFUSING PER ORDER. PT C/O RLQ ABD PAIN 10/10, HEADACHE 10/10 MED X 1 WITH APAP 650MG. BROOKE PLANTAR FEET PAIN/ITCHING MED X 1 WITH ATARAX PER PRN ORDER. C/O ANXIETY, MED X 1 WITH CLONIDINE 0.1MG PO PRN. PT CONTINUES TO BE NPO AT THIS TIME UNTIL DIET IS UPGRADED. PT AWARE OF PLAN OF CARE.
[2023-09-12] MEDS: cloNIDine HCL 0.1 MG TABLET PO (09:08)
[2023-09-12] MEDS: hydrOXYzine HCL 50 MG TABLET PO ×2 (09:09→19:58)
[2023-09-12] MEDS: Acetaminophen 325 MG TABLET 650 MG PO (09:09)
--- NOTE | 2023-09-12 09:43 | PC.NURSE ---
Addendum entered by Miya Torres 09/12/23 10:29: PT WAS SEEN BY GI DR. MINER AND NOT (DR. MILLER) Original Note: GI (DR. MILLER) AT BEDSIDE. PT AWARE OF PLAN OF CARE.
[2023-09-12] MEDS: metroNIDAZOLE/NS 500 MG/100 ML PIGGYBACK 100 MG IV ×2 (10:50→18:34)
[2023-09-12] MEDS: levoFLOXacin/D5W 500 MG/100 ML PIGGYBACK 100 MG IV (11:53)
[2023-09-12 12:08] LABS: Glucose, Whole Blood 122 mg/dL (60-115)
--- NOTE | 2023-09-12 12:52 | P.PNIM_ITS ---
Subjective Subjective Date of Service: 09/12/23 Interval History: f/u on abdominal pain, uclear etiology. Clinical appear better, WBC down to normal, vitals ok, yet still c/o lower abdominal pain. No fever. She is also c/o itching on legs and hand, no rash and so Zosyn is stopped, known history of pen allergy Review of Systems abd pain, no n/v Physical Exam 2 Vital Signs: Vital Signs: Last Vital Signs Temp 96.8 F 09/12/23 08:53 Pulse 102 H 09/12/23 08:53 Resp 16 09/12/23 08:53 BP 119/70 09/12/23 08:53 Pulse Ox 96 09/12/23 08:53 O2 Del Method Room Air 09/12/23 08:53 BMI result Body Mass Index 39.8 Const: Other: General: AO X 3, no acute distress Resp: CTA bilateral CVS: S1,S2,RRR GI: +BS, non specific lower abd tender, soft to palpation, no distention Skin: No rash Neuro: motor grossly intact Psych: appropriate affect Objective Data Active Medications Acetaminophen (Acetaminophen 325 Mg Tablet) 650 mg PO Q6H PRN PRN Reason: Pain, Mild (Pain Scale 1-3) Last Admin: 09/12/23 09:09 Dose: 650 mg Documented By: MARIAA Al Hydroxide/Mg Hydroxide (Magnesium Hydrox/Alum Hydrox 30 Ml Oral.Susp) 30 ml PO Q4H PRN PRN Reason: Heartburn/Nausea Last Admin: 09/11/23 09:28 Dose: 30 ml Documented By: ARACELY Albuterol Sulfate (Albuterol Sulfate 90 Mcg 8 Gm Inhaler) 1 puff INHALE Q4H PRN PRN Reason: Shortness Of Breath Or Wheezing Amlodipine Besylate (Amlodipine Besylate 10 Mg Tablet) 10 mg PO DAILY [facility]; Protocol Last Admin: 09/12/23 08:56 Dose: 10 mg Documented By: MARIAA Atorvastatin Calcium (Atorvastatin Calcium 10 Mg Tablet) 10 mg PO BEDTIME [facility] Last Admin: 09/11/23 20:55 Dose: 10 mg Documented By: ERASTO Bumetanide (Bumetanide 1 Mg Tablet) 2 mg PO BID [facility]; Protocol Last Admin: 09/12/23 08:56 Dose: 2 mg Documented By: HO.SCOC Clonidine HCl (Clonidine Hcl 0.1 Mg Tablet) 0.1 mg PO TID PRN; Protocol PRN Reason: Anxiety Last Admin: 09/12/23 09:08 Dose: 0.1 mg Documented By: MARIAA Dextrose (Dextrose 50 % 25 Gm/50 Ml Syringe) 25 gm IVPUSH Q15M PRN; Protocol PRN Reason: per Hypoglycemia Standing Ord. Dicyclomine HCl (Dicyclomine Hcl 10 Mg Capsule) 20 mg PO QIDACHS [facility] Doxepin HCl (Doxepin Hcl 25 Mg Capsule) 25 mg PO BEDTIME PRN PRN Reason: insomnia Enoxaparin Sodium (Enoxaparin Sodium 40 Mg/0.4 Ml Syringe) 40 mg SUBCUT Q24H [facility] Last Admin: 09/12/23 06:58 Dose: 40 mg Documented By: QUANG Glucose (Glucose Gel 15 Gm Gel..Gram.) 15 gm PO Q15M PRN; Protocol PRN Reason: per Hypoglycemia Standing Ord. Hydromorphone HCl (Hydromorphone Hcl 1 Mg/Ml Syringe) 0.5 mg IVPUSH Q4H PRN; Protocol PRN Reason: Pain, Severe (Pain Scale 7-10) Last Admin: 09/12/23 05:30 Dose: 0.5 mg Documented By: QUANG Hydroxyzine HCl (Hydroxyzine Hcl 50 Mg Tablet) 50 mg PO TID PRN PRN Reason: itch Last Admin: 09/12/23 09:09 Dose: 50 mg Documented By: MARIAA Lactated Ringer's (Lr) 1,000 mls @ 125 mls/hr IVCONT .Q8H [facility] Last Admin: 09/12/23 10:49 Dose: 125 mls/hr Documented By: MARIAA Promethazine HCl 12.5 mg/ (Sodium Chloride) 50.5 mls @ 202 mls/hr IV Q6H PRN PRN Reason: Nausea and Vomiting Last Infusion: 09/11/23 13:10 Dose: Infused Documented By: JIMMY Levofloxacin (Levaquin) 500 mg in 100 mls @ 100 mls/hr IV Q24H [facility] Last Admin: 09/12/23 11:53 Dose: 100 mls/hr Documented By: BRITTON Metronidazole (Flagyl) 500 mg in 100 mls @ 100 mls/hr IV Q8H [facility] Last Infusion: 09/12/23 11:57 Dose: Infused Documented By: BRITTON Insulin Glargine (Insulin Glargine,Hum.Rec.Anlog 100 Unit/Ml 10 Ml Vial) 15 unit SUBCUT BEDTIME [facility] Last Admin: 09/11/23 20:57 Dose: Not Given Documented By: ERASTO Non-Admin Reason: NPO Insulin Human Lispro (Insulin Lispro 100 Unit/Ml 3 Ml Vial) 0 unit SUBCUT QIDACHS [facility]; Protocol Last Admin: 09/12/23 12:13 Dose: Not Given Documented By: BRITTON Non-Admin Reason: poc-122 Levothyroxine Sodium (Levothyroxine Sodium 112 Mcg Tablet) 112 mcg PO DAILY@0600 [facility] Last Admin: 09/12/23 05:30 Dose: 112 mcg Documented By: QUANG Lorazepam (Lorazepam 1 Mg Tablet) 1 mg PO DAILY PRN PRN Reason: Anxiety Last Admin: 09/11/23 23:51 Dose: 1 mg Documented By: QUANG Meclizine HCl (Meclizine Hcl 25 Mg Tablet) 25 mg PO Q6H PRN PRN Reason: vertigo Melatonin (Melatonin 3 Mg Tablet) 6 mg PO BEDTIME PRN PRN Reason: Insomnia Non-Formulary Medication (Dulaglutide [Trulicity]) 0.75 mg SUBCUT Q7D [facility] Non-Formulary Medication (Rizatriptan) 5 mg PO ONCE PRN PRN Reason: Migraine Headache Ondansetron HCl (Ondansetron Hcl 4 Mg/2 Ml Vial) 4 mg IVPUSH Q8H PRN PRN Reason: Nausea and Vomiting Last Admin: 09/11/23 07:54 Dose: 4 mg Documented By: CESPEJoelle Sodium Chloride (0.9 % Sodium Chloride Flush 3 Ml Syringe) 3 ml IVFLUSH QSHIFT [facility] Last Admin: 09/12/23 09:02 Dose: 3 ml Documented By: MARIAA Tiotropium [place] (Tiotropium [place] 2.5 Mcg 1 Puff/2.5 Mcg Mist.Inhal) 2 puff INHALE RDAILY [facility] Last Admin: 09/12/23 08:42 Dose: 2 puff Documented By: HO.BRESNE Trazodone HCl (Trazodone Hcl 50 Mg Tablet) 150 mg PO BEDTIME PRN PRN Reason: insomnia Labs 09/12/23 06:10 09/12/23 06:10 Labs: Laboratory Results - last 24 hr 09/11/23 09/11/23 09/11/23 11:19 16:40 20:36 MCV MCH MCHC RDW Plt Count MPV Immature Gran % (Auto) Neut % (Auto) Lymph % (Auto) [place] % (Auto) Eos % (Auto) Baso % (Auto) Lymph # (Auto) [place] # (Auto) Eos # (Auto) Baso # (Auto) Abs Immat Gran (auto) Absolute Neuts (auto) Absolute Nucleated RBC Nucleated RBC % (auto) Anion Gap Estim Creat Clear Calc Estimated GFR POC Glucose 155 H 98 110 Random Glucose Calcium Magnesium 09/12/23 09/12/23 09/12/23 06:10 07:34 12:04 MCV 74.7 L MCH 22.1 L MCHC 29.6 L RDW 18.3 H Plt Count 268 MPV 10.6 Immature Gran % (Auto) 0.4 Neut % (Auto) 65.8 Lymph % (Auto) 26.0 [place] % (Auto) 5.4 Eos % (Auto) 2.1 Baso % (Auto) 0.3 Lymph # (Auto) 2.6 [place] # (Auto) 0.5 Eos # (Auto) 0.2 Baso # (Auto) 0.0 Abs Immat Gran (auto) 0.04 H Absolute Neuts (auto) 6.5 Absolute Nucleated RBC 0.000 Nucleated RBC % (auto) 0.0 Anion Gap 13 Estim Creat Clear Calc 107.0 Estimated GFR > 60 POC Glucose 108 122 H Random Glucose 119 H Calcium 8.6 D Magnesium 1.7 Microbiology Microbiology Results: Microbiology 09/11/23 06:39 Urine Culture - Final Urine clean catch - Clean Catch Midstream 09/11/23 03:46 Blood Culture - Preliminary Blood - Venous No growth after 24 hours. 09/11/23 03:40 Blood Culture - Preliminary Blood - Venous No growth after 24 hours. Assessment and Plan (1) Type 2 diabetes mellitus: Status: Acute (2) Elevated lactic acid level: Status: Acute (3) Leucocytosis: Status: Acute (4) Abdominal pain: Status: Acute Plan 58-year-old female with pertinent history of essential hypertension, mixed hyperlipidemia, mood disorder, insulin-dependent diabetes mellitus, hypothyroidism, gastroesophageal reflux disease, congestive heart failure with preserved ejection fraction, obstructive sleep apnea on CPAP, asthma here with RLQ abdominal pain + leukocytosis, WBC now normal but still c/o pain. -continue NPO, repeat CT with oral and IV contrast as suggested by surgery, seen by Elio Caal to follow up tomorrow -change Abx to Levaquin and Flagyl, she has been c/o itching on legs and hands, no rash and has history of Pen allergy -Continue IVF, replace K.. Start diet if CT unremarkable Leucocytosis--related to above or reactive went from 20K to now 9k Acute lactic acidosis, likely related , above, came down with IVF and not related to sepsis Type 2 Diabetes Mellitus, on Lantus and trulicity, on Lantus 15 bedtime, 5 am -continue Lantus at 15 at HS while NPO, -IVF will some glucose + K, monitor glucose level. - hold pre meal insulin, Metformin and Trulicity Hypothyroidism, levothyroxine Obesity class II Encourage weight loss Migraine headache--Fiorocet PRN if has headache Moderate Persistent Asthma without acute exacerbation -Continue inhalers Chronic fluid overload--continue Bumex twice (by Dr. Hernandez on outpatient basis), especially aggressive hydration and no hypotension Need for inpt: ongoing abdominal pain, NPO and requiring IV Abx for possible infectous component and further testing Quality Stroke Does the patient have a stroke diagnosis?: No VTE Prior VTE?: No VTE Risk Level:: Medical - moderate - high VTE Device Contraindication: N/A - Device Ordered VTE Drug Contraindication: N/A - Med Ordered
--- NOTE | 2023-09-12 12:55 | CONS_ITS ---
DATE OF SERVICE: 09/12/2023 REFERRING PHYSICIAN: Dr. Scanlon REASON FOR CONSULTATION: Abdominal pain. HISTORY OF PRESENT ILLNESS: The patient is a pleasant 58-year-old woman, who was admitted to the hospital on September 11 after presenting to the emergency room with complaints of abdominal pain. She has a longstanding history of abdominal pain and was recently admitted in August and at that time, was seen in consultation by Dr. Ballard. She had an elevated white blood cell count, which has been a chronic issue for her and has had a negative workup for hematologic malignancy. She was thought to have possible acute diverticulitis and treated with antibiotics. At the time of her evaluation in the emergency department yesterday, she did have an elevated white count, which has again been chronic, and CT scanning was obtained which showed no acute intraabdominal process. She does have a history of previously undergoing upper endoscopy and colonoscopy in January of this year, which showed a poor prep on the colonoscopy, for which, final repeat examination was recommended. The endoscopy showed got gastritis and esophagitis. Biopsies at the time of colonoscopy showed no evidence of inflammatory bowel disease. PAST MEDICAL HISTORY: 1. Hypertension. 2. Hyperlipidemia. 3. Mood disorder. 4. Diabetes mellitus. 5. Hypothyroidism. 6. Gastroesophageal reflux disease. 7. Heart failure. 8. Obstructive sleep apnea/CPAP. 9. Endoscopy and colonoscopy as above. CURRENT MEDICATIONS: Current medication list is reviewed in the chart. ALLERGIES: MULTIPLE MEDICATION ALLERGIES ARE REVIEWED. FAMILY HISTORY: This is reviewed with the patient and is noncontributory. SOCIAL HISTORY: There has been no substance abuse reported. REVIEW OF SYSTEMS: SKIN: No pruritus. HEENT: Negative. CARDIOPULMONARY: She denies shortness of breath or chest pain. GASTROINTESTINAL: As above. GENITOURINARY: Negative. NEUROPSYCHIATRIC: Negative. PHYSICAL EXAMINATION: GENERAL: Shows a pleasant female, lying comfortably in bed. VITAL SIGNS: Reviewed in the electronic medical record and are stable. SKIN: Anicteric. HEENT: Shows no scleral icterus. NECK: Without lymphadenopathy or thyromegaly. LUNGS: Clear. HEART: Shows a regular rate and rhythm. S1, S2. No murmur. ABDOMEN: Soft without focal masses or tenderness. Bowel sounds are present. No organomegaly is noted. EXTREMITIES: Without edema. DIAGNOSTIC DATA: Laboratory data and CT imaging reviewed. IMPRESSION: Abdominal pain. At this time, there does not appear to be any evidence of diverticulitis. She is scheduled for followup CT scan with contrast as recommended by Dr Winkler. If this is negative, then I would recommend advancing her diet and I would also start her on some dicyclomine to see if this helps her chronic GI complaints. She will follow up with Dr. Ballard for her GI issues. Thanks for asking me to see her. MD ALICIA Paredes/DESIRE / [phone] MTDD
--- NOTE | 2023-09-12 14:46 | PC.NURSE ---
PT IS SLEEPING RESP EVEN AND UNLABORED.
[2023-09-12] MEDS: KCl 20 mEq in 5% Dex/0.45% Sod 20 MEQ/1,000 ML IV.SOLN 100 MEQ IVCONT (15:10)
[2023-09-12] MEDS: ondansetron HCL 4 MG/2 ML VIAL IVPUSH (15:11)
--- NOTE | 2023-09-12 15:25 | PC.NURSE ---
PT IS DRINKING PO CONTRAST. ZOFRAN 4MG IVP GIVEN PRIOR.
--- NOTE | 2023-09-12 17:15 | PC.NURSE ---
Patient off to CT scan 10 mins ago. Stopped drip till she gets back.
[2023-09-12 17:16] LABS: Magnesium 1.6 mg/dL (1.6-2.6)
--- NOTE | 2023-09-12 17:17 | PC.NURSE ---
Patient just arrived from ct scan
[2023-09-12] MEDS: iohexoL 350 MG/ML 100 ML INFUS..BTL IV (17:19)
[2023-09-12] MEDS: Diatrizoate Meglumine, Sodium 30 ML SOLUTION PO (17:20)
[2023-09-12 17:25] LABS: Glucose, Whole Blood 115 mg/dL (60-115)
[2023-09-12] MEDS: Dicyclomine HCl 10 MG CAPSULE 20 MG PO ×2 (18:34→22:21)
[2023-09-12] MEDS: Atorvastatin Calcium 10 MG TABLET PO (19:57)
--- NOTE | 2023-09-12 21:45 | PM.EVENT ---
Event Note Date of Service: 09/12/23 Event Note: holding lantus for sugar level only 109 despites fluid with glucose Time Spent With Patient Time: Total time managing care of this patient today ____ minutes.
[2023-09-12 21:49] LABS: Glucose, Whole Blood 94 mg/dL (60-115)
[2023-09-12] MEDS: LORazepam 1 MG TABLET PO (22:22)
[2023-09-12] MEDS: traZODone HCL 50 MG TABLET 150 MG PO (22:23)
[2023-09-12] MEDS: Albuterol Sulfate 90 MCG 8 GM INHALER 1 PUFF INHALE (22:23)
--- NOTE | 2023-09-12 22:31 | PC.NURSE ---
Dayana ta [facility] ed overflow 10 Patient c/o left arm pain 10/10 and abdominal pain gave her dilaudid just wondering if you want an ekg? Patient was given dilaudid iv push. Patient did not have any chest pain. Did not want a ekg. Will continue with plan of care.
--- NOTE | 2023-09-12 23:39 | MHC.EDTECH ---
This tech resumed care for the patient @2300. Patient appears to be sleeping, comfortably. All set at this time.
[2023-09-13] MEDS: KCl 20 mEq in 5% Dex/0.45% Sod 20 MEQ/1,000 ML IV.SOLN 100 MEQ IVCONT ×2 (01:05→14:11)
[2023-09-13] MEDS: metroNIDAZOLE/NS 500 MG/100 ML PIGGYBACK 100 MG IV ×3 (01:12→18:16)
[2023-09-13] MEDS: cloNIDine HCL 0.1 MG TABLET PO (01:23)
[2023-09-13 01:24] VITALS: BP 109/59; PULSE 93; RESP 16; O2SAT 95
[2023-09-13] MEDS: Levothyroxine Sodium 112 MCG TABLET PO (05:04)
[2023-09-13] MEDS: HYDROmorphone HCl 1 MG/ML SYRINGE 0.5 MG IVPUSH ×2 (05:06→11:41)
--- NOTE | 2023-09-13 05:39 | PC.NURSE ---
This freelance writer assumed care of this Pt at 0300. Pt A&Ox3, reports 07/13 ABD pain. Pt medicated per DEC, IV fluids running per DEC. Pt using CPAP. Pt asking about diet upgrade, Pt updated on plan of care.
[2023-09-13 06:00] VITALS: BP 103/50; PULSE 84; RESP 17; TEMP 36.6; O2SAT 96
--- NOTE | 2023-09-13 06:44 | PM.PNGS ---
Subjective Subjective Date of Service: 09/13/23 Patient reports: still having pain and no flatus Interval history: The patient continues to report right-sided pain. Repeat CT with oral and IV contrast was performed and I reviewed the studies and agree with the radiologist that there is no evidence of acute intra-abdominal pathology to explain the patient's ongoing symptoms. Case discussed with GI yesterday and further input is pending today. Physical Exam Vital Signs: Vital Signs: Last Vital Signs Temp 98.6 F 09/12/23 14:59 Pulse 93 09/13/23 01:24 Resp 16 09/13/23 01:24 BP 109/59 L 09/13/23 01:24 Pulse Ox 95 09/13/23 01:24 O2 Del Method CPAP 09/13/23 01:24 O2 Flow Rate 2 09/12/23 20:24 BMI result Body Mass Index 39.8 On exam, the patient is resting comfortably with her CPAP mask on She is having no respiratory distress Her abdomen is unchanged and she reports right-sided/right lower quadrant pain with no rebound, rigidity or guarding. No peritoneal sign is demonstrated on exam. Objective Data Active Medications Acetaminophen (Acetaminophen 325 Mg Tablet) 650 mg PO Q6H PRN PRN Reason: Pain, Mild (Pain Scale 1-3) Last Admin: 09/12/23 09:09 Dose: 650 mg Documented By: MARIAA Al Hydroxide/Mg Hydroxide (Magnesium Hydrox/Alum Hydrox 30 Ml Oral.Susp) 30 ml PO Q4H PRN PRN Reason: Heartburn/Nausea Last Admin: 09/11/23 09:28 Dose: 30 ml Documented By: ARACELY Albuterol Sulfate (Albuterol Sulfate 90 Mcg 8 Gm Inhaler) 1 puff INHALE Q4H PRN PRN Reason: Shortness Of Breath Or Wheezing Last Admin: 09/12/23 22:23 Dose: 1 puff Documented By: BRITTON Amlodipine Besylate (Amlodipine Besylate 10 Mg Tablet) 10 mg PO DAILY [facility]; Protocol Last Admin: 09/12/23 08:56 Dose: 10 mg Documented By: MARIAA Atorvastatin Calcium (Atorvastatin Calcium 10 Mg Tablet) 10 mg PO BEDTIME [facility] Last Admin: 09/12/23 19:57 Dose: 10 mg Documented By: BRITTON Bumetanide (Bumetanide 1 Mg Tablet) 2 mg PO BID [facility]; Protocol Last Admin: 09/12/23 19:56 Dose: 2 mg Documented By: BRITTON Clonidine HCl (Clonidine Hcl 0.1 Mg Tablet) 0.1 mg PO TID PRN; Protocol PRN Reason: Anxiety Last Admin: 09/13/23 01:23 Dose: 0.1 mg Documented By: ROXANA Dextrose (Dextrose 50 % 25 Gm/50 Ml Syringe) 25 gm IVPUSH Q15M PRN; Protocol PRN Reason: per Hypoglycemia Standing Ord. Dicyclomine HCl (Dicyclomine Hcl 10 Mg Capsule) 20 mg PO QIDACHS [facility] Last Admin: 09/12/23 22:21 Dose: 20 mg Documented By: BRITTON Doxepin HCl (Doxepin Hcl 25 Mg Capsule) 25 mg PO BEDTIME PRN PRN Reason: insomnia Enoxaparin Sodium (Enoxaparin Sodium 40 Mg/0.4 Ml Syringe) 40 mg SUBCUT Q24H [facility] Last Admin: 09/12/23 06:58 Dose: 40 mg Documented By: QUANG Glucose (Glucose Gel 15 Gm Gel..Gram.) 15 gm PO Q15M PRN; Protocol PRN Reason: per Hypoglycemia Standing Ord. Hydromorphone HCl (Hydromorphone Hcl 1 Mg/Ml Syringe) 0.5 mg IVPUSH Q4H PRN; Protocol PRN Reason: Pain, Severe (Pain Scale 7-10) Last Admin: 09/13/23 05:06 Dose: 0.5 mg Documented By: SERRJOANN Hydroxyzine HCl (Hydroxyzine Hcl 50 Mg Tablet) 50 mg PO TID PRN PRN Reason: itch Last Admin: 09/12/23 19:58 Dose: 50 mg Documented By: BRITTON Promethazine HCl 12.5 mg/ (Sodium Chloride) 50.5 mls @ 202 mls/hr IV Q6H PRN PRN Reason: Nausea and Vomiting Last Infusion: 09/11/23 13:10 Dose: Infused Documented By: JIMMY Levofloxacin (Levaquin) 500 mg in 100 mls @ 100 mls/hr IV Q24H [facility] Last Infusion: 09/12/23 13:00 Dose: Infused Documented By: MARIAA Metronidazole (Flagyl) 500 mg in 100 mls @ 100 mls/hr IV Q8H [facility] Last Infusion: 09/13/23 02:12 Dose: Infused Documented By: ROXANA Potassium Chloride/Dextrose/Sod Cl (Kcl 20 Meq In 5% Dex/0.45% Sod) 20 meq in 1,000 mls @ 100 mls/hr IVCONT .Q10H [facility] Last Admin: 09/13/23 01:05 Dose: 100 mls/hr Documented By: ROXANA Insulin Glargine (Insulin Glargine,Hum.Rec.Anlog 100 Unit/Ml 10 Ml Vial) 15 unit SUBCUT BEDTIME [facility] Last Admin: 09/12/23 21:45 Dose: Not Given Documented By: BRITTON Non-Admin Reason: Physician Held Med Comments: Dr. Scanlon Insulin Human Lispro (Insulin Lispro 100 Unit/Ml 3 Ml Vial) 0 unit SUBCUT QIDACHS [facility]; Protocol Last Admin: 09/12/23 21:46 Dose: Not Given Documented By: BRITTON Non-Admin Reason: [id number] Levothyroxine Sodium (Levothyroxine Sodium 112 Mcg Tablet) 112 mcg PO DAILY@0600 [facility] Last Admin: 09/13/23 05:04 Dose: 112 mcg Documented By: SPIKE Lorazepam (Lorazepam 1 Mg Tablet) 1 mg PO DAILY PRN PRN Reason: Anxiety Last Admin: 09/12/23 22:22 Dose: 1 mg Documented By: BRITTON Meclizine HCl (Meclizine Hcl 25 Mg Tablet) 25 mg PO Q6H PRN PRN Reason: vertigo Melatonin (Melatonin 3 Mg Tablet) 6 mg PO BEDTIME PRN PRN Reason: Insomnia Ondansetron HCl (Ondansetron Hcl 4 Mg/2 Ml Vial) 4 mg IVPUSH Q8H PRN PRN Reason: Nausea and Vomiting Last Admin: 09/12/23 15:11 Dose: 4 mg Documented By: MARIAA Sodium Chloride (0.9 % Sodium Chloride Flush 3 Ml Syringe) 3 ml IVFLUSH QSHIFT [facility] Last Admin: 09/13/23 00:02 Dose: Not Given Documented By: ROXANA Non-Admin Reason: IV Running Tiotropium Mcpherson (Tiotropium Mcpherson 2.5 Mcg 1 Puff/2.5 Mcg Mist.Inhal) 2 puff INHALE RDAILY [facility] Last Admin: 09/12/23 08:42 Dose: 2 puff Documented By: RAF Trazodone HCl (Trazodone Hcl 50 Mg Tablet) 150 mg PO BEDTIME PRN PRN Reason: insomnia Last Admin: 09/12/23 22:23 Dose: 150 mg Documented By: BRITTON Labs 09/12/23 06:10 09/12/23 06:10 Labs: Laboratory Results - last 24 hr 09/12/23 09/12/23 09/12/23 07:34 12:04 16:43 POC Glucose 108 122 H Magnesium 1.6 09/12/23 09/12/23 17:21 21:43 POC Glucose [address] scan - abdomen: My impression: No surgical source for pain identified by my review of admission CT & 09/12/23 Radiologist's impression: Impressions Abdomen/Pelvis CT 09/12/23 17:13 IMPRESSION: Stable CT of the abdomen and pelvis compared to 09/11/2023. No explanation for abdominal pain. Fleischner guidelines were followed. Microbiology Microbiology Results: Microbiology 09/11/23 03:46 Blood Culture - Preliminary Blood - Venous No growth after 48 hours. 09/11/23 03:40 Blood Culture - Preliminary Blood - Venous No growth after 48 hours. 09/11/23 06:39 Urine Culture - Final Urine clean catch - Clean Catch Midstream Procedures Date of Service Date of Service: 09/13/23 Progress Note: A&P Assessment and plan (1) Abdominal pain: Status: Acute (2) Type 2 diabetes mellitus: Status: Acute (3) Elevated lactic acid level: Status: Acute (4) Hyperparathyroidism: Status: Acute (5) Erosive esophagitis: Status: Acute Plan There is no identifiable etiology that would be amenable to surgical correction to explain the patient's ongoing pain. Given the chronicity of her complaints, even less, etiologies like appendiceal diverticulitis would have likely clinically declared themselves or be visible on CT, so I am not convinced that there is a surgical etiology to her pain. The patient's presenting leukocytosis and lactic acidosis clearly demonstrate something is going on contributing to her symptoms, but it is not obviously correctable with surgery. Recommend discussion with endocrinology & GI since there is a subset of diabetics were very prone to lactic acidosis and her hyperparathyroidism can certainly cause abdominal complaints, but I am reluctant to recommend diagnostic laparoscopy without additional information excluding non surgical sources. Would recommend a trial of clear liquids and follow the patient. Time Spent With Patient Time: Total time managing care of this patient today ____ minutes. Quality Stroke Does the patient have a stroke diagnosis?: No VTE Prior VTE?: No VTE Risk Level:: Medical - moderate - high VTE Device Contraindication: N/A - Device Ordered VTE Drug Contraindication: N/A - Med Ordered
--- NOTE | 2023-09-13 07:23 | HO.PM.IMPN ---
Subjective Subjective Date of Service: 09/13/23 Interval History: f/u on abdominal pain, uclear etiology. Tolerating liquid diet from overnight, but still has persistent pain mostly in the area of RLQ are, no n/v Physical Exam Vital Signs: Vital Signs: Last Vital Signs Temp 97.9 F 09/13/23 06:00 Pulse 84 09/13/23 06:00 Resp 17 09/13/23 06:00 BP 103/50 L 09/13/23 06:00 Pulse Ox 96 09/13/23 06:00 O2 Del Method CPAP 09/13/23 06:00 O2 Flow Rate 2 09/12/23 20:24 BMI result Body Mass Index 39.8 Const: Other: General: AO X 3, no acute distress Resp: CTA bilateral CVS: S1,S2,RRR GI: +BS, non specific lower abd tender in rlq area, soft to palpation, no distention Skin: No rash Neuro: motor grossly intact Psych: appropriate affect Objective Data Active Medications Acetaminophen (Acetaminophen 325 Mg Tablet) 650 mg PO Q6H PRN PRN Reason: Pain, Mild (Pain Scale 1-3) Last Admin: 09/12/23 09:09 Dose: 650 mg Documented By: MARIAA Al Hydroxide/Mg Hydroxide (Magnesium Hydrox/Alum Hydrox 30 Ml Oral.Susp) 30 ml PO Q4H PRN PRN Reason: Heartburn/Nausea Last Admin: 09/11/23 09:28 Dose: 30 ml Documented By: ARACELY Albuterol Sulfate (Albuterol Sulfate 90 Mcg 8 Gm Inhaler) 1 puff INHALE Q4H PRN PRN Reason: Shortness Of Breath Or Wheezing Last Admin: 09/12/23 22:23 Dose: 1 puff Documented By: BRITTON Amlodipine Besylate (Amlodipine Besylate 10 Mg Tablet) 10 mg PO DAILY [facility]; Protocol Last Admin: 09/12/23 08:56 Dose: 10 mg Documented By: MARIAA Atorvastatin Calcium (Atorvastatin Calcium 10 Mg Tablet) 10 mg PO BEDTIME [facility] Last Admin: 09/12/23 19:57 Dose: 10 mg Documented By: BRITTON Bumetanide (Bumetanide 1 Mg Tablet) 2 mg PO BID [facility]; Protocol Last Admin: 09/12/23 19:56 Dose: 2 mg Documented By: BRITTON Clonidine HCl (Clonidine Hcl 0.1 Mg Tablet) 0.1 mg PO TID PRN; Protocol PRN Reason: Anxiety Last Admin: 09/13/23 01:23 Dose: 0.1 mg Documented By: ROXANA Dextrose (Dextrose 50 % 25 Gm/50 Ml Syringe) 25 gm IVPUSH Q15M PRN; Protocol PRN Reason: per Hypoglycemia Standing Ord. Dicyclomine HCl (Dicyclomine Hcl 10 Mg Capsule) 20 mg PO QIDACHS [facility] Last Admin: 09/12/23 22:21 Dose: 20 mg Documented By: BRITTON Doxepin HCl (Doxepin Hcl 25 Mg Capsule) 25 mg PO BEDTIME PRN PRN Reason: insomnia Enoxaparin Sodium (Enoxaparin Sodium 40 Mg/0.4 Ml Syringe) 40 mg SUBCUT Q24H [facility] Last Admin: 09/12/23 06:58 Dose: 40 mg Documented By: QUANG Glucose (Glucose Gel 15 Gm Gel..Gram.) 15 gm PO Q15M PRN; Protocol PRN Reason: per Hypoglycemia Standing Ord. Hydromorphone HCl (Hydromorphone Hcl 1 Mg/Ml Syringe) 0.5 mg IVPUSH Q4H PRN; Protocol PRN Reason: Pain, Severe (Pain Scale 7-10) Last Admin: 09/13/23 05:06 Dose: 0.5 mg Documented By: SPIKE Hydroxyzine HCl (Hydroxyzine Hcl 50 Mg Tablet) 50 mg PO TID PRN PRN Reason: itch Last Admin: 09/12/23 19:58 Dose: 50 mg Documented By: BRITTON Promethazine HCl 12.5 mg/ (Sodium Chloride) 50.5 mls @ 202 mls/hr IV Q6H PRN PRN Reason: Nausea and Vomiting Last Infusion: 09/11/23 13:10 Dose: Infused Documented By: JIMMY Levofloxacin (Levaquin) 500 mg in 100 mls @ 100 mls/hr IV Q24H [facility] Last Infusion: 09/12/23 13:00 Dose: Infused Documented By: MARIAA Metronidazole (Flagyl) 500 mg in 100 mls @ 100 mls/hr IV Q8H [facility] Last Infusion: 09/13/23 02:12 Dose: Infused Documented By: ROXANA Potassium Chloride/Dextrose/Sod Cl (Kcl 20 Meq In 5% Dex/0.45% Sod) 20 meq in 1,000 mls @ 100 mls/hr IVCONT .Q10H [facility] Last Admin: 09/13/23 01:05 Dose: 100 mls/hr Documented By: ROXANA Insulin Glargine (Insulin Glargine,Hum.Rec.Anlog 100 Unit/Ml 10 Ml Vial) 15 unit SUBCUT BEDTIME [facility] Last Admin: 09/12/23 21:45 Dose: Not Given Documented By: BRITTON Non-Admin Reason: Physician Held Med Comments: Dr. Scanlon Insulin Human Lispro (Insulin Lispro 100 Unit/Ml 3 Ml Vial) 0 unit SUBCUT QIDACHS [facility]; Protocol Last Admin: 09/12/23 21:46 Dose: Not Given Documented By: BRITTON Non-Admin Reason: poc-94 Levothyroxine Sodium (Levothyroxine Sodium 112 Mcg Tablet) 112 mcg PO DAILY@0600 [facility] Last Admin: 09/13/23 05:04 Dose: 112 mcg Documented By: SPIKE Lorazepam (Lorazepam 1 Mg Tablet) 1 mg PO DAILY PRN PRN Reason: Anxiety Last Admin: 09/12/23 22:22 Dose: 1 mg Documented By: BRITTON Meclizine HCl (Meclizine Hcl 25 Mg Tablet) 25 mg PO Q6H PRN PRN Reason: vertigo Melatonin (Melatonin 3 Mg Tablet) 6 mg PO BEDTIME PRN PRN Reason: Insomnia Ondansetron HCl (Ondansetron Hcl 4 Mg/2 Ml Vial) 4 mg IVPUSH Q8H PRN PRN Reason: Nausea and Vomiting Last Admin: 09/12/23 15:11 Dose: 4 mg Documented By: MARIAA Sodium Chloride (0.9 % Sodium Chloride Flush 3 Ml Syringe) 3 ml IVFLUSH QSHIFT [facility] Last Admin: 09/13/23 07:22 Dose: Not Given Documented By: SIMRAN Non-Admin Reason: Med Not Available Tiotropium [place] (Tiotropium [place] 2.5 Mcg 1 Puff/2.5 Mcg Mist.Inhal) 2 puff INHALE RDAILY [facility] Last Admin: 09/12/23 08:42 Dose: 2 puff Documented By: RAF Trazodone HCl (Trazodone Hcl 50 Mg Tablet) 150 mg PO BEDTIME PRN PRN Reason: insomnia Last Admin: 09/12/23 22:23 Dose: 150 mg Documented By: BRITTON Labs 09/12/23 06:10 09/13/23 07:09 Labs: Laboratory Results - last 24 hr 09/12/23 09/12/23 09/12/23 07:34 12:04 16:43 POC Glucose 108 122 H Magnesium 1.6 09/12/23 09/12/23 17:21 21:43 POC Glucose 115 94 Magnesium Microbiology Microbiology Results: Microbiology 09/11/23 03:46 Blood Culture - Preliminary Blood - Venous No growth after 48 hours. 09/11/23 03:40 Blood Culture - Preliminary Blood - Venous No growth after 48 hours. 09/11/23 06:39 Urine Culture - Final Urine clean catch - Clean Catch Midstream Assessment and Plan (1) Type 2 diabetes mellitus: Status: Acute (2) Elevated lactic acid level: Status: Acute (3) Leucocytosis: Status: Acute (4) Abdominal pain: Status: Acute Plan 58-year-old female with pertinent history of essential hypertension, mixed hyperlipidemia, mood disorder, insulin-dependent diabetes mellitus, hypothyroidism, gastroesophageal reflux disease, congestive heart failure with preserved ejection fraction, obstructive sleep apnea on CPAP, asthma here with RLQ abdominal pain + leukocytosis - initial CT withtout constrast no acute finding - repeat CT with PO and IV contrast 09/12 show no acute finding either. -Was started on Zosyn, normalized the next day, but had itchyness and so Zosyn stopped and started on Levauin + Flagyl 09/12 -still, c/o pain yet looks comfortable and exam fairly bening. - Tolerating liquid diet, so advance to full liquid -Surgery (Walko) and GI (Lisa) saw her over the weekend, with just above management. -her GI Doctor Elio to follow up today -Hydormorphone for pain. + C dif, started on PO Vanco Leucocytosis--related to above or reactive went from 20K to now 9k the next day Acute lactic acidosis, likely related , above, came down with IVF and not related to sepsis Type 2 Diabetes Mellitus, on Lantus and trulicity, on Lantus 15 bedtime, 5 am -continue Lantus at 15 at HS, hold if sugars low - hold pre meal insulin, Metformin and Trulicity Hypokalemia, replacing with IV Hypothyroidism, levothyroxine Obesity class II Encourage weight loss Migraine headache--Fiorocet PRN if has headache Moderate Persistent Asthma without acute exacerbation -Continue inhalers Chronic fluid overload--continue Bumex twice (by Dr. Hernandez on outpatient basis), especially aggressive hydration and no hypotension MARY--CPAP at night Need for inpt: ongoing abdominal pain, NPO and requiring IV Abx for possible infectous component and further testing Quality Stroke Does the patient have a stroke diagnosis?: No VTE Prior VTE?: No VTE Risk Level:: Medical - moderate - high VTE Device Contraindication: N/A - Device Ordered VTE Drug Contraindication: N/A - Med Ordered
[2023-09-13] MEDS: Dicyclomine HCl 10 MG CAPSULE 20 MG PO ×4 (07:35→20:11)
[2023-09-13] MEDS: Enoxaparin Sodium 40 MG/0.4 ML SYRINGE SUBCUT (07:36)
[2023-09-13 07:37] LABS: Glucose, Whole Blood 138 mg/dL (60-115)
[2023-09-13 07:41] LABS: Anion Gap 14 (12-20); Blood Urea Nitrogen 5 mg/dL (9-16); Calcium 8.8 mg/dL (8.4-10.2); Carbon Dioxide 31 mmol/L (22-29); Chloride 97 mmol/L (96-108); Creatinine Clr Calc Pharmacy 99.2; Estimated Glomerular Filt Rate > 60; Glucose Random 136 mg/dL (60-115); Potassium 3.1 mmol/L (3.3-5.1); Sodium 139 mmol/L (135-145)
[2023-09-13] MEDS: Acetaminophen 325 MG TABLET 650 MG PO ×2 (08:14→22:30)
[2023-09-13 08:18] VITALS: BP 139/67; PULSE 83; RESP 16; O2SAT 95
[2023-09-13] MEDS: Bumetanide 1 MG TABLET 2 MG PO ×2 (08:21→20:11)
[2023-09-13] MEDS: amLODIPine Besylate 10 MG TABLET PO (08:21)
[2023-09-13] MEDS: Tiotropium Bromide 2.5 mcg 1 PUFF/2.5 MCG MIST.INHAL 2 PUFF INHALE (08:23)
--- NOTE | 2023-09-13 08:43 | MHC.EDTECH ---
PT requesting assistance washing up at the bedside this morning. Warm wipes given, lotion applied, new katelyn and socks given. Pt complaining of severe pain in abdomen and all over. RN aware.
--- NOTE | 2023-09-13 09:21 | MHC.CM.PN ---
CM MET WITH PT WITH THE ASSISTANCE OF A ORAL HYGIENIST PT REPORTS SHE LIVES ALONE AND HAS 2 HOURS OF [employer] DAILY SHE REPORTS SHE HAS A CANE, WALKER, CPAP, SHOWER CHAIR, COMMODE, AND BEDSIDE TABLE FOR DME PT HAS A HCP ON FILE PCP: CARLOS KRISHNAMURTHY PT REPORTS SHE WOULD LIKE ASSISTANCE GETTING MORE [employer] CM INFORMED HER SHE SHOULD ADDRESS THSI WITH HER PCP SHE STATES UNDERSTANDING DCP: HOME, RESUME [employer] PT WILL ARRANGE TRANSPORT
--- NOTE | 2023-09-13 09:48 | PC.NURSE ---
assumed care of pt at 0700. pt a&o x4, pleasant, calm, and cooperative. pt c/o 10/10 pain all over. not yet due for dilaudid so given prn tylenol. pt took am medications and consumed breakfast. on all liquid diet xander. pt up out of bed to commode independently. pt has IV fluids running per dec. washed up and changed for day. pt currently resting quietly in hospital bed in no apparent distress. rr even/unlabored. pt on 2L O2 via NC, sating 95%. awaiting bed assignment. call reyes within pt reach. plan of care ongoing.
[2023-09-13 11:00] LABS: CDiff Gene PCR POSITIVE (Negative)
[2023-09-13 11:33] LABS: CDIFF Internal ctrl Dots and bkg OK (V); CDiff Toxin Negative (Negative)
[2023-09-13 11:34] LABS: Glucose, Whole Blood 120 mg/dL (60-115)
--- NOTE | 2023-09-13 11:56 | PM.GICN ---
History of Present Illness Data of Consult Service Date: 09/13/23 Requesting physician: Vinod Abbasi Primary Care Provider: Unknown Physician HPI Reason for consult: abdominal pain PMFSH Past Medical History Medical History Essential hypertension Acute diarrhea Pre-op examination Cervical radiculopathy Rash of foot Kiera albicans infection Cervicalgia Left shoulder pain Environmental allergies Hospital discharge follow-up MARY on CPAP Elevated red blood cell count Screening for hyperlipidemia Chronic pain syndrome Lumbar pain Encounter for annual routine gynecological examination Multiple air fluid levels of small intestine determined by X-ray Abdominal bloating Hypothyroid Sleep apnea Abdominal cramping Edema Anxiety with depression Chronic pain (Unknown) Gastroparesis Left knee pain Hypothyroidism Bilateral shoulder pain Hyperlipidemia LDL goal <70 Degeneration, intervertebral disc, cervical Spondylosis of cervical spine at multiple levels without myelopathy Sleep apnea Renal calculi Incontinence Goiter Disc degeneration, lumbar Spondylosis of lumbar region without myelopathy or radiculopathy Arthropathy of facet joint Insomnia LUDY (generalized anxiety disorder) Moderately severe recurrent major depression Diabetes mellitus Chronic pain syndrome Morbid (severe) obesity due to excess calories Fibromyalgia Small bowel motility disorder Chronic idiopathic constipation Asthma Family History Family History Father Past heart attack Anxiety Mother MOF (multiple organ failure) Brother HIV (human immunodeficiency virus infection) Sister Ovarian cancer Lupus Bone cancer Uterine cancer Tumor Daughter Guillain-[place] Sister Lupus History of open heart surgery Family/Other Depression FH: mental illness Maternal Aunt Breast cancer Maternal Aunt Tumor Surgical History Surgical History History of knee replacement procedure of right knee History of hernia surgery Hx of colonoscopy History of esophagogastroduodenoscopy (EGD) History of cholecystectomy Delivery by section History of hysterectomy Social History Social History Household Members: None Household Members Other:: Housing: Apartment Are you a primary school childcare attendant to a significant other at home: No Do you presently have visiting nurse or other home services: Yes ([employer]) Alcohol intake: never Patient Tobacco Use Status: Never used Tobacco Smoked in Last 30 Days: No e-Cigarette/Vaping Use: Never Used Second Hand Smoke Exposure: Yes Use of substances other than those prescribed or required for medical reasons: No Advance Directives: Yes Advance Directives on File: Yes Advance Directives Date on File: 12/08/21 Nutrition Risks: No Nutritional Risk Patient : No service: No Current occupational status: unemployed and disabled Cognitive needs: No Hearing needs: No Vision needs: No Meds Allergies Allergy/AdvReac Type Severity Reaction Status Date / Time Penicillins Allergy Severe swelling Verified 09/10/23 22:25 adhesive tape [ADHESIVE TAPE] Allergy Intermediate RASH Verified 09/10/23 22:25 amoxicillin [AMOXICILLIN] Allergy Intermediate RASH,SWELLI Verified 09/10/23 22:25 NG ibuprofen [From Motrin] Allergy Intermediate Hypertensio Verified 09/10/23 22:25 n latex Allergy Intermediate Rash Verified 09/10/23 22:25 Active Medications: Current Medications Acetaminophen (Acetaminophen 325 Mg Tablet) 650 mg PO Q6H PRN PRN Reason: Pain, Mild (Pain Scale 1-3) Last Admin: 09/13/23 08:14 Dose: 650 mg Al Hydroxide/Mg Hydroxide (Magnesium Hydrox/Alum Hydrox 30 Ml Oral.Susp) 30 ml PO Q4H PRN PRN Reason: Heartburn/Nausea Last Admin: 09/11/23 09:28 Dose: 30 ml Albuterol Sulfate (Albuterol Sulfate 90 Mcg 8 Gm Inhaler) 1 puff INHALE Q4H PRN PRN Reason: Shortness Of Breath Or Wheezing Last Admin: 09/12/23 22:23 Dose: 1 puff Amlodipine Besylate (Amlodipine Besylate 10 Mg Tablet) 10 mg PO DAILY RADHA; Protocol Last Admin: 09/13/23 08:21 Dose: 10 mg Atorvastatin Calcium (Atorvastatin Calcium 10 Mg Tablet) 10 mg PO BEDTIME RADHA Last Admin: 09/12/23 19:57 Dose: 10 mg Bumetanide (Bumetanide 1 Mg Tablet) 2 mg PO BID RADHA; Protocol Last Admin: 09/13/23 08:21 Dose: 2 mg Clonidine HCl (Clonidine Hcl 0.1 Mg Tablet) 0.1 mg PO TID PRN; Protocol PRN Reason: Anxiety Last Admin: 09/13/23 01:23 Dose: 0.1 mg Dextrose (Dextrose 50 % 25 Gm/50 Ml Syringe) 25 gm IVPUSH Q15M PRN; Protocol PRN Reason: per Hypoglycemia Standing Ord. Dicyclomine HCl (Dicyclomine Hcl 10 Mg Capsule) 20 mg PO QIDACHS [facility] Last Admin: 09/13/23 11:31 Dose: 20 mg Doxepin HCl (Doxepin Hcl 25 Mg Capsule) 25 mg PO BEDTIME PRN PRN Reason: insomnia Enoxaparin Sodium (Enoxaparin Sodium 40 Mg/0.4 Ml Syringe) 40 mg SUBCUT Q24H [facility] Last Admin: 09/13/23 07:36 Dose: 40 mg Glucose (Glucose Gel 15 Gm Gel..Gram.) 15 gm PO Q15M PRN; Protocol PRN Reason: per Hypoglycemia Standing Ord. Hydromorphone HCl (Hydromorphone Hcl 1 Mg/Ml Syringe) 0.5 mg IVPUSH Q4H PRN; Protocol PRN Reason: Pain, Severe (Pain Scale 7-10) Last Admin: 09/13/23 11:41 Dose: 0.5 mg Hydroxyzine HCl (Hydroxyzine Hcl 50 Mg Tablet) 50 mg PO TID PRN PRN Reason: itch Last Admin: 09/12/23 19:58 Dose: 50 mg Promethazine HCl 12.5 mg/ (Sodium Chloride) 50.5 mls @ 202 mls/hr IV Q6H PRN PRN Reason: Nausea and Vomiting Last Infusion: 09/11/23 13:10 Dose: Infused Levofloxacin (Levaquin) 500 mg in 100 mls @ 100 mls/hr IV Q24H [facility] Last Infusion: 09/12/23 13:00 Dose: Infused Metronidazole (Flagyl) 500 mg in 100 mls @ 100 mls/hr IV Q8H [facility] Last Admin: 09/13/23 11:32 Dose: 100 mls/hr Potassium Chloride/Dextrose/Sod Cl (Kcl 20 Meq In 5% Dex/0.45% Sod) 20 meq in 1,000 mls @ 100 mls/hr IVCONT .Q10H [facility] Last Admin: 09/13/23 01:05 Dose: 100 mls/hr Insulin Glargine (Insulin Glargine,Hum.Rec.Anlog 100 Unit/Ml 10 Ml Vial) 15 unit SUBCUT BEDTIME [facility] Last Admin: 09/12/23 21:45 Dose: Not Given Insulin Human Lispro (Insulin Lispro 100 Unit/Ml 3 Ml Vial) 0 unit SUBCUT QIDACHS [facility]; Protocol Last Admin: 09/13/23 11:37 Dose: Not Given Levothyroxine Sodium (Levothyroxine Sodium 112 Mcg Tablet) 112 mcg PO DAILY@0600 [facility] Last Admin: 09/13/23 05:04 Dose: 112 mcg Lorazepam (Lorazepam 1 Mg Tablet) 1 mg PO DAILY PRN PRN Reason: Anxiety Last Admin: 09/12/23 22:22 Dose: 1 mg Meclizine HCl (Meclizine Hcl 25 Mg Tablet) 25 mg PO Q6H PRN PRN Reason: vertigo Melatonin (Melatonin 3 Mg Tablet) 6 mg PO BEDTIME PRN PRN Reason: Insomnia Ondansetron HCl (Ondansetron Hcl 4 Mg/2 Ml Vial) 4 mg IVPUSH Q8H PRN PRN Reason: Nausea and Vomiting Last Admin: 09/12/23 15:11 Dose: 4 mg Sodium Chloride (0.9 % Sodium Chloride Flush 3 Ml Syringe) 3 ml IVFLUSH QSHIFT [facility] Last Admin: 09/13/23 07:22 Dose: Not Given Tiotropium [place] (Tiotropium [place] 2.5 Mcg 1 Puff/2.5 Mcg Mist.Inhal) 2 puff INHALE RDAILY [facility] Last Admin: 09/13/23 08:23 Dose: 2 puff Trazodone HCl (Trazodone Hcl 50 Mg Tablet) 150 mg PO BEDTIME PRN PRN Reason: insomnia Last Admin: 09/12/23 22:23 Dose: 150 mg Vancomycin HCl (Vancomycin Hcl 125 Mg Capsule) 125 mg PO Q6H [facility] Home Medications Medication Instructions Recorded Confirmed Last Taken Type atorvastatin 10 mg tablet 10 mg PO BEDTIME 08/25/23 09/11/23 Unknown History clonidine HCl 0.1 mg tablet 0.1 mg PO TID PRN Anxiety 08/25/23 09/11/23 Unknown History doxepin 25 mg capsule 25 - 50 mg PO BEDTIME PRN insomnia 08/25/23 09/11/23 Unknown History dulaglutide 0.75 mg/0.5 mL 0.75 mg subcut QWEEK 08/25/23 09/11/23 Unknown History subcutaneous pen injector (Trulicity) hydroxyzine HCl 50 mg tablet 50 mg PO TID PRN itch 08/25/23 09/11/23 Unknown History insulin glargine 100 unit/mL 15 unit subcut BEDTIME 08/25/23 09/11/23 Unknown History subcutaneous solution (Lantus U-100 Insulin) insulin lispro 100 unit/mL 5 unit subcut TID 08/25/23 09/11/23 Unknown History subcutaneous solution levothyroxine 112 mcg tablet 112 mcg PO DAILY@0600 08/25/23 09/11/23 Unknown History metformin 500 mg tablet 500 mg PO BID 08/25/23 09/11/23 Unknown History rizatriptan 5 mg tablet 5 mg PO ONCE PRN Migraine Headache 08/25/23 09/11/23 Unknown History trazodone 150 mg tablet 150 mg PO BEDTIME PRN insomnia 08/25/23 09/11/23 Unknown History acetaminophen 650 mg 650 mg PO Q8H PRN arthritis 09/11/23 09/11/23 Unknown History tablet,extended release amlodipine 10 mg tablet 10 mg PO DAILY 09/11/23 09/11/23 Unknown History bumetanide 2 mg tablet 2 mg PO BID 09/11/23 09/11/23 Unknown History lorazepam 1 mg tablet 1 mg PO DAILY PRN ANXIETY 09/11/23 09/11/23 Unknown History metoclopramide HCl 10 mg tablet 10 mg PO QID 09/11/23 09/11/23 Unknown History umeclidinium 62.5 mcg/actuation 1 inh inhalation DAILY 09/11/23 09/11/23 Unknown History blister powder for inhalation (Incruse Ellipta) Physical Exam Vital Signs: Vital Signs: Last Vital Signs Temp 97.9 F 09/13/23 06:00 Pulse 83 09/13/23 08:18 Resp 16 09/13/23 08:18 BP 139/67 09/13/23 08:18 Pulse Ox 95 09/13/23 08:18 O2 Del Method Nasal Cannula 09/13/23 08:18 O2 Flow Rate 2 09/13/23 08:18 BMI result Body Mass Index 39.8 Results Labs 09/12/23 06:10 09/13/23 07:09 Labs: BMP 09/13/23 07:09 Sodium 139 Potassium 3.1 L Chloride 97 Carbon Dioxide 31 H BUN 5 L Creatinine 0.82 Calcium 8.8 Microbiology Microbiology Results: Microbiology 09/11/23 03:46 Blood - Venous Blood Culture - Preliminary No growth after 48 hours. 09/11/23 03:40 Blood - Venous Blood Culture - Preliminary No growth after 48 hours. 09/11/23 06:39 Urine clean catch - Clean Catch Midstream Urine Culture - Final Procedures Date of Service Date of Service: 09/13/23
[2023-09-13 12:38] LABS: Adenovirus F 40/41 Not Detected (Not Detect.); Astrovirus Not Detected (Not Detect.); Campylobacter Not Detected (Not Detect.); Cryptosporidium Not Detected (Not Detect.); Cyclospora cayetanensis Not Detected (Not Detect.); E. coli EAEC Not Detected (Not Detect.); E. coli EPEC Not Detected (Not Detect.); E. coli ETEC Not Detected (Not Detect.); E. coli STEC Not Detected (Not Detect.); Entamoeba histolytica Not Detected (Not Detect.); Giardia lamblia Not Detected (Not Detect.); Norovirus GI/GII Not Detected (Not Detect.); Plesiomonas shigelloides Not Detected (Not Detect.); Rotavirus A Not Detected (Not Detect.); Salmonella Not Detected (Not Detect.); Sapovirus Not Detected (Not Detect.); Shigella sp./EIEC Not Detected (Not Detect.); Vibrio Not Detected (Not Detect.); Vibrio Cholerae Not Detected (Not Detect.); Yersinia enterocolitica Not Detected (Not Detect.)
[2023-09-13] MEDS: levoFLOXacin/D5W 500 MG/100 ML PIGGYBACK 100 MG IV (13:03)
--- NOTE | 2023-09-13 13:17 | P.PNGI_ITS ---
Subjective Subjective Date of Service: 09/13/23 Interval History: ongoing rlq pain with nausea and poor appetite she also has left frozen shoulder, with painful arc of movement slight cough, wiht clear mucous no blood in stools, small amnt of diarrhea today c diff PCR was pos Critical Care Time (minutes): 0 Physical Exam 2 Vital Signs: Vital Signs: Last Vital Signs Temp 97.9 F 09/13/23 06:00 Pulse 83 09/13/23 08:18 Resp 16 09/13/23 08:18 BP 139/67 09/13/23 08:18 Pulse Ox 95 09/13/23 08:18 O2 Del Method Nasal Cannula 09/13/23 08:18 O2 Flow Rate 2 09/13/23 08:18 BMI result Body Mass Index 39.8 EXAM: GENERAL: The patient is obese VITAL SIGNS:see workflow HEENT: Nonicteric sclerae, PERRLA, EOMI. Oropharynx clear. Moist mucous membranes. Conjunctivae appear well perfused. No thyroid mass. CHEST: Chest wall is nontender. HEART: Regular rate and rhythm without murmurs. LUNGS: Clear to auscultation bilaterally. ABDOMEN: Soft, positive bowel sounds,tender RLQ, no organomegaly.no flank tenderness SKIN: No rash, no excessive bruising, petechiae, or purpura. NEUROLOGIC: Cranial nerves II-XII intact without motor/sensory deficit. Objective Data Labs 09/12/23 06:10 09/13/23 07:09 Labs: Laboratory Results - last 24 hr 09/12/23 09/12/23 09/12/23 16:43 17:21 21:43 Sodium Potassium Chloride Carbon Dioxide Anion Gap BUN Creatinine Estim Creat Clear Calc Estimated GFR POC Glucose 115 94 Random Glucose Calcium Magnesium 1.6 C. difficile Tox B Gene C. difficile Toxin A&B C. difficile Interpret 09/13/23 09/13/23 09/13/23 07:09 07:33 09:56 Sodium 139 Potassium 3.1 L Chloride 97 Carbon Dioxide 31 H Anion Gap 14 BUN 5 L Creatinine 0.82 Estim Creat Clear Calc 99.2 Estimated GFR > 60 POC Glucose 138 H Random Glucose 136 H Calcium 8.8 Magnesium C. difficile Tox B Gene POSITIVE A* C. difficile Toxin A&B Negative C. difficile Interpret SEE NOTE 09/13/23 11:30 Sodium Potassium Chloride Carbon Dioxide Anion Gap BUN Creatinine Estim Creat Clear Calc Estimated GFR POC Glucose 120 H Random Glucose Calcium Magnesium C. difficile Tox B Gene C. difficile Toxin A&B C. difficile Interpret Imaging CT scan - abdomen: Attestation: I personally reviewed and interpreted this imaging study as follows: (distended right sided colon, ? outline of stool ball in the cecum vs a lesion, left side colon fairly decompressed but some thickened bowle noted) Microbiology Microbiology Results: Microbiology 09/11/23 03:46 Blood - Venous Blood Culture - Preliminary No growth after 48 hours. 09/11/23 03:40 Blood - Venous Blood Culture - Preliminary No growth after 48 hours. 09/11/23 06:39 Urine clean catch - Clean Catch Midstream Urine Culture - Final Procedures Date of Service Date of Service: 09/13/23 Progress Note: A&P Assessment and plan (1) RLQ abdominal pain: Status: Acute Plan 1/ RLQ abdominal pain, pos c diff PCR< unclear if just carrier vs active infection , ddx: IBD PLAN: 1/ d/w Dr Scanlon, he wants to try vanc first, if no improvement in next few days then colonoscopy Time Spent With Patient Time: Total time managing care of this patient today ____ minutes. Quality Stroke Does the patient have a stroke diagnosis?: No VTE Prior VTE?: No VTE Risk Level:: Medical - moderate - high VTE Device Contraindication: N/A - Device Ordered VTE Drug Contraindication: N/A - Med Ordered
[2023-09-13] MEDS: vancomycin HCL 125 MG CAPSULE PO ×2 (14:03→18:16)
[2023-09-13] MEDS: HYDROmorphone HCl 0.5 MG/0.5 ML SYRINGE IVPUSH ×2 (16:04→20:26)
[2023-09-13] MEDS: 0.9 % Sodium Chloride Flush 3 ML SYRINGE IVFLUSH ×2 (16:08→20:49)
[2023-09-13 16:39] LABS: Glucose, Whole Blood 111 mg/dL (60-115)
[2023-09-13] MEDS: hydrOXYzine HCL 50 MG TABLET PO (17:18)
[2023-09-13 18:00] VITALS: BP 121/68; PULSE 86; RESP 16; TEMP 36.8; O2SAT 97
--- NOTE | 2023-09-13 18:06 | PC.NURSE ---
Addendum entered by Romy Bond RN 09/13/23 18:42: Patient transferred to Med/Surg room 377. Nurse to nurse completed with Sarah. All needs met. Original Note: Assumed patient care at 1500. Patient alert and oriented x4. Pt reporting 10/10 R side abdominal pain, cramping-like, Dilaudid given per EMAR, per patient no change in pain. Tolerating full liquids. 2 episodes of diarrhea. Independent to commode. Contact precautions in place. Evening POC 111, no insulin coverage. IV fluids, D51/2NS w/ 40 mEq KCL running at 100ml/hr through IV in L AC. Call reyes within reach, all needs met.
[2023-09-13 18:38] LABS: Anion Gap 15 (12-20); Blood Urea Nitrogen 4 mg/dL (9-16); Calcium 9.1 mg/dL (8.4-10.2); Carbon Dioxide 32 mmol/L (22-29); Chloride 96 mmol/L (96-108); Creatinine Clr Calc Pharmacy 101.7; Estimated Glomerular Filt Rate > 60; Glucose Random 159 mg/dL (60-115); Magnesium 1.6 mg/dL (1.6-2.6); Potassium 3.2 mmol/L (3.3-5.1); Sodium 140 mmol/L (135-145)
[2023-09-13 19:37] VITALS: BP 116/65; PULSE 98; RESP 19; TEMP 36.3; O2SAT 91
[2023-09-13] MEDS: Atorvastatin Calcium 10 MG TABLET PO (20:11)
[2023-09-13] MEDS: Potassium Chloride Packet 20 MEQ PACKET 40 MEQ PO (20:11)
[2023-09-13] MEDS: Insulin Glargine,Hum.rec.anlog 100 UNIT/ML 10 ML VIAL 15 UNIT SUBCUT (20:49)
[2023-09-13 20:52] LABS: Glucose, Whole Blood 106 mg/dL (60-115)
[2023-09-13 20:53] VITALS: O2SAT 94
[2023-09-13] MEDS: LORazepam 1 MG TABLET PO (22:30)
[2023-09-14 00:04] VITALS: RESP 19
[2023-09-14] MEDS: metroNIDAZOLE/NS 500 MG/100 ML PIGGYBACK 100 MG IV (00:17)
[2023-09-14] MEDS: HYDROmorphone HCl 0.5 MG/0.5 ML SYRINGE IVPUSH ×3 (00:17→21:49)
[2023-09-14] MEDS: vancomycin HCL 125 MG CAPSULE PO ×4 (00:17→17:39)
[2023-09-14 06:21] VITALS: BP 130/77; PULSE 104; RESP 20; TEMP 36.3; O2SAT 95
[2023-09-14] MEDS: Dicyclomine HCl 10 MG CAPSULE 20 MG PO ×2 (06:25→11:23)
[2023-09-14] MEDS: Levothyroxine Sodium 112 MCG TABLET PO (06:25)
[2023-09-14] MEDS: Enoxaparin Sodium 40 MG/0.4 ML SYRINGE SUBCUT (06:25)
[2023-09-14] MEDS: hydrOXYzine HCL 50 MG TABLET PO ×2 (06:48→22:04)
[2023-09-14 07:30] VITALS: BP 120/62; PULSE 99; RESP 18; TEMP 37.3; O2SAT 94
[2023-09-14 07:42] LABS: Glucose, Whole Blood 146 mg/dL (60-115)
[2023-09-14] MEDS: Bumetanide 1 MG TABLET 2 MG PO (07:52)
[2023-09-14] MEDS: amLODIPine Besylate 10 MG TABLET PO (07:52)
[2023-09-14] MEDS: Acetaminophen 325 MG TABLET 650 MG PO (07:56)
[2023-09-14] MEDS: 0.9 % Sodium Chloride Flush 3 ML SYRINGE IVFLUSH ×3 (07:58→21:51)
[2023-09-14] MEDS: Tiotropium Bromide 2.5 mcg 1 PUFF/2.5 MCG MIST.INHAL 2 PUFF INHALE (08:14)
[2023-09-14 08:15] VITALS: PULSE 99; RESP 18; O2SAT 94
[2023-09-14 09:14] LABS: Anion Gap 15 (12-20); Blood Urea Nitrogen 4 mg/dL (9-16); Calcium 9.1 mg/dL (8.4-10.2); Carbon Dioxide 30 mmol/L (22-29); Chloride 97 mmol/L (96-108); Estimated Glomerular Filt Rate > 60; Glucose Random 182 mg/dL (60-115); Potassium 3.2 mmol/L (3.3-5.1); Sodium 139 mmol/L (135-145)
[2023-09-14 10:33] VITALS: O2SAT 95
--- NOTE | 2023-09-14 11:20 | PM.DS ---
DS: Providers Provider Date of Service: 09/14/23 Date of admission: 09/11/23 06:56 Primary care physician: Jenny Bell MD Consults: 09/11/23 07:43 Consult to General Surgery Routine Consulting Provider: [facility] [place] General Surgeons Reason for consultation: RLQ abdominal pain ddx acute mesenteric ischemia Has provider been notified: No 09/11/23 13:29 Consult to Gastroenterology Routine Consulting Provider: Bunny Ballard Reason for consultation: Abomdinal pain ? colitis Has provider been notified: Yes DS: Diagnosis Discharge Diagnosis (1) Type 2 diabetes mellitus: Status: Acute (2) Elevated lactic acid level: Status: Acute (3) Leucocytosis: Status: Acute (4) Abdominal pain: Status: Acute DS: Summary Hospital Course Hospital Course: Date of Service: 09/11/23 Attending physician on admission: Tomy Alonzo Chief Complaint: RLQ abdominal pain x3 days 58-year-old female with pertinent history of essential hypertension, mixed hyperlipidemia, mood disorder, insulin-dependent diabetes mellitus, hypothyroidism, gastroesophageal reflux disease, congestive heart failure with preserved ejection fraction (HFpEF), obstructive sleep apnea on CPAP, asthma who presents to the emergency department for evaluation of abdominal pain. She was recently admitted (08/25-08/27) for the same symptoms and discharged home on oral antibiotics which she states she took and felt fine for a short while before the symptoms recurred. She rates the pain at a 10/10 at its worst and reports associated multiple episodes of non-projectile emesis and diarrhea since today with also intermittent episode of chills with no fevers. Initial work up done in the emergency room revealed a significant leucocytosis of 20.9 k/mm3 elevated serum lactate at 4.3. His vital signs were initially fairly stable with no tachycardia or tachypnea. An abdominal CT scan done did not reveal any intra-abdominal pathology to explain her symptoms. She received empiric Levaquin and Zosyn following which admission was requested for continued care. When I got to see her, she was still reporting pain despite having received a dose of IV Hydromorphone. 58-year-old female with pertinent history of essential hypertension, mixed hyperlipidemia, mood disorder, insulin-dependent diabetes mellitus, hypothyroidism, gastroesophageal reflux disease, congestive heart failure with preserved ejection fraction, obstructive sleep apnea on CPAP, asthma here with RLQ abdominal pain + leukocytosis. persistent abdominal pain of several months duration, initial CT without contrast showed no acute finding, due to persistent abdominal pain repeat CT with PO and IV contrast 09/12 showed no acute finding,initially treated with Zosyn but was discontinued due to itching with history of penicillin allergy, later treated with Levaquin + Flagyl 09/12 for possible colitis, WBC normalized diet was gradually advanced,Surgery (Dr. Winkler) and GI () saw the patient, no surgical intervention was required GI recommended close outpatient follow-up by primary performance architect Dr. Baker, he also evaluated patient and recommended colonoscopy if no improvement, patient C diff toxin came back positive question colonization versus active infection due to persistent pain , loose stools and leukocytosis patient treated with vancomycin ,recommend total 10 days of vancomycin, since patient is clinically stable tolerating diet she will be discharged home and recommended follow-up with Dr. Baker Leucocytosis--related to above or reactive went from 20K to 9k, noted to have chronic intermittent leukocytosis. Acute lactic acidosis, likely related to above, came down with IVF and was not related to sepsis. Type 2 Diabetes Mellitus, continue Lantus Trulicity and pre meal insulin , hemoglobin A1c 6.4 continue diabetic diet Hypokalemia, repleted , recommend BMP in next 3 days question hypokalemia related to diuretics versus GI loss. Hypothyroidism,continue levothyroxine. Obesity class II Encourage weight loss, recommended low-calorie diabetic diet and exercise Moderate Persistent Asthma without acute exacerbation continue home inhalers Chronic fluid overload--continue Bumex twice (by Dr. Hernandez on outpatient basis) recommend outpatient follow-up with pulmonology. MARY--CPAP at night , oxygenation stable 95% on room air recommend weight loss Time Attestation Discharge coordination time: Greater than 30 minutes Quality: Safe Use of Opioids Does Pt have an Active Cancer Diagnosis on the Problem List?: No Quality: Stroke Does the patient have a stroke diagnosis?: No Physical Exam Vital Signs: Vital Signs: Last Vital Signs Temp 99.1 F 09/14/23 07:30 Pulse 99 09/14/23 08:15 Resp 18 09/14/23 08:15 BP 120/62 09/14/23 07:30 Pulse Ox 95 09/14/23 10:33 O2 Del Method Room Air 09/14/23 10:33 O2 Flow Rate 2.0 09/14/23 07:30 BMI result Body Mass Index 39.8 Const: Other: General: Ax O X 3, no acute distress neck no JVD Resp: CTA bilateral CVS: S1,S2,RRR GI: +BS, right lower quadrant tenderness to superficial touch, soft to palpation, no guarding, no rigidity, no distention Skin: No rash extremities no pitting edema Neuro: motor grossly intact Psych: appropriate affect DS: Data Data Completed and Pending Completed studies during hospitalization [Text1]: Procedures Assistance with Respiratory Ventilation, Less than 24 Consecutive Hours, Continuous Positive Airway Pressure (06/30/23) Labs on day of discharge: Laboratory Results - last 24 hr 09/13/23 09/13/23 09/13/23 09:56 11:30 16:29 Hold Purple Top Sodium Potassium Chloride Carbon Dioxide Anion Gap BUN Creatinine Estim Creat Clear Calc Estimated GFR POC Glucose 120 H 111 Random Glucose Calcium Magnesium Stl C. cayetanensis PCR Not Detected Stool Rotavirus A PCR Not Detected Stl Adenov F 40/ PCR Not Detected Stool Astrovirus (PCR) Not Detected Stool Campylobacter PCR Not Detected Stool Cryptosporidium PCR Not Detected Stl Sh Tox Pr E STEC PCR Not Detected Stool E coli O157 PCR Not applicable Stl Enterotoxigenic E PCR Not Detected Stool EPEC (PCR) Not Detected Stool EAEC (PCR) Not Detected Stl E. histolytica PCR Not Detected Stool Giardia Lamblia PCR Not Detected Stl P. shigelloides PCR Not Detected Stool Salmonella PCR Not Detected Stool Sapovirus (PCR) Not Detected Stl Shigella/EIEC PCR Not Detected St Y.enterocolitica PCR Not Detected Stool Vibrio (PCR) Not Detected Stl Vibrio cholerae PCR Not Detected Stl Norovirus GI/GII PCR Not Detected C. difficile Toxin A&B Negative C. difficile Interpret SEE NOTE 09/13/23 09/13/23 09/14/23 18:06 20:40 07:36 Hold Purple Top Sodium 140 Potassium 3.2 L Chloride 96 Carbon Dioxide 32 H Anion Gap 15 BUN 4 L Creatinine 0.80 Estim Creat Clear Calc 101.7 Estimated GFR > 60 POC Glucose 106 146 H Random Glucose 159 H Calcium 9.1 Magnesium 1.6 Stl C. cayetanensis PCR Stool Rotavirus A PCR Stl Adenov F 40/41 PCR Stool Astrovirus (PCR) Stool Campylobacter PCR Stool Cryptosporidium PCR Stl Sh Tox Pr E STEC PCR Stool E coli O157 PCR Stl Enterotoxigenic E PCR Stool EPEC (PCR) Stool EAEC (PCR) Stl E. histolytica PCR Stool Giardia Lamblia PCR Stl P. shigelloides PCR Stool Salmonella PCR Stool Sapovirus (PCR) Stl Shigella/EIEC PCR St Y.enterocolitica PCR Stool Vibrio (PCR) Stl Vibrio cholerae PCR Stl Norovirus GI/GII PCR C. difficile Toxin A&B C. difficile Interpret 09/14/23 08:42 Hold Purple Top SEE NOTE Sodium 139 Potassium 3.2 L Chloride 97 Carbon Dioxide 30 H Anion Gap 15 BUN 4 L Creatinine 0.83 Estim Creat Clear Calc 98.0 Estimated GFR > 60 POC Glucose Random Glucose 182 H Calcium 9.1 Magnesium Stl C. cayetanensis PCR Stool Rotavirus A PCR Stl Adenov F 40/41 PCR Stool Astrovirus (PCR) Stool Campylobacter PCR Stool Cryptosporidium PCR Stl Sh Tox Pr E STEC PCR Stool E coli O157 PCR Stl Enterotoxigenic E PCR Stool EPEC (PCR) Stool EAEC (PCR) Stl E. histolytica PCR Stool Giardia Lamblia PCR Stl P. shigelloides PCR Stool Salmonella PCR Stool Sapovirus (PCR) Stl Shigella/EIEC PCR St Y.enterocolitica PCR Stool Vibrio (PCR) Stl Vibrio cholerae PCR Stl Norovirus GI/GII PCR C. difficile Toxin A&B C. difficile Interpret Preliminary micro results at discharge 09/11/23 03:46 Blood Culture - Preliminary Blood - Venous No growth after 48 hours. 09/11/23 03:40 Blood Culture - Preliminary Blood - Venous No growth after 48 hours. Discharge Plan Discharge Anticipated Discharge Date/Time: 09/14/23 11:02 Patient Disposition: Home, Self-Care Discharge Diagnosis: abdominal pain leukocytosis obesity Referrals: Jneny Mendosa MD [Primary Care Provider] - 1 Week Discharge Medications: New vancomycin 125 mg Capsule 125 mg PO Q6H Qty: 36 0RF Continued albuterol sulfate [Ventolin HFA] 90 mcg/actuation HFA aerosol inhaler 1 inh inhalation Q4H PRN (Reason: Shortness Of Breath Or Wheezing) Qty: 8.5 3RF gabapentin 100 mg capsule 100 mg PO TID 30 Days Qty: 90 0RF insulin glargine [Lantus U-100 Insulin] 100 unit/mL solution 15 unit subcut BEDTIME 90 Days Qty: 13.5 1RF Trulicity 0.75 mg/0.5 mL pen injector 0.75 mg subcut QWEEK Qty: 2 5RF metformin 500 mg tablet 500 mg PO BID clonidine HCl 0.1 mg tablet 0.1 mg PO TID PRN (Reason: Anxiety) atorvastatin 10 mg tablet 10 mg PO BEDTIME doxepin 25 mg capsule 25 - 50 mg PO BEDTIME PRN (Reason: insomnia) hydroxyzine HCl 50 mg tablet 50 mg PO TID PRN (Reason: itch) trazodone 150 mg tablet 150 mg PO BEDTIME PRN (Reason: insomnia) insulin lispro 100 unit/mL solution 5 unit subcut TID levothyroxine 112 mcg tablet 112 mcg PO DAILY@0600 rizatriptan 5 mg tablet 5 mg PO ONCE PRN (Reason: Migraine Headache) Rx Instructions: may repeat in 2 hours bumetanide 2 mg tablet 2 mg PO BID acetaminophen 650 mg tablet extended release 650 mg PO Q8H PRN (Reason: arthritis) amlodipine 10 mg tablet 10 mg PO DAILY Incruse Ellipta 62.5 mcg/actuation blister with device 1 inh INHALATION DAILY lorazepam 1 mg tablet 1 mg PO DAILY PRN (Reason: ANXIETY) Discontinued metoclopramide HCl 10 mg tablet 10 mg PO QID Discharge Orders: Discharge Order (Routine); Ordered 09/14/23 Ordered By: Whitney Atwood Diet: Diabetic diet Activity on Discharge: As tolerated Stand Alone Forms: Patient Portal Discharge page Other Ambulatory Orders: Basic Metabolic Panel (Routine) Timeframe: [id number] Facility: [facility] - Location: Laboratory Ordered By: Whitney Atwood Care Plan Goals: ch.Abdominal pain, leukocytosis resolved , C diff positive likely carrier due to leukocytosis take by mouth vancomycin for 9 more days follow low-calorie diabetic diet, recommend wt. loss do left shoulder exercises for mobility check lab on 09/17 due to low potassium Health Concerns: diabetes mellitus, hypertension, obesity Plan of Treatment: follow-up with primary care physician and Dr. Baker call for appointment Assessment: as above
[2023-09-14] MEDS: Potassium Chloride ER 20 MEQ TAB.ER.PRT PO (11:23)
[2023-09-14 11:31] LABS: Glucose, Whole Blood 270 mg/dL (60-115)
[2023-09-14] MEDS: Insulin Lispro 100 UNIT/ML 3 ML VIAL SUBCUT ×3 (11:32→21:50)
--- NOTE | 2023-09-14 12:07 | MHC.CM.PN ---
Patient is discharged to home with resumption of [facility] services. Patient has arranged for transport home.
[2023-09-14] MEDS: ondansetron HCL 4 MG/2 ML VIAL IVPUSH ×2 (13:01→20:35)
[2023-09-14 15:35] VITALS: BP 144/67; PULSE 89; RESP 18; TEMP 36.6; O2SAT 95
--- NOTE | 2023-09-14 16:11 | PC.NURSE ---
Pt with Nausea and Vomiting , given zofran see DEC. Dr Atwood notified discharge postponed
--- NOTE | 2023-09-14 16:12 | HO.PM.IMPN ---
Subjective Subjective Date of Service: 09/14/23 Interval History: complaining of persistent right lower quadrant pain, in the morning tolerated breakfast but later vomited after lunch, no fevers no chills, had 2 small bowel movements no urinary symptoms of urgency frequency no other acute issues. Review of Systems All other system reviewed and negative Physical Exam Vital Signs: Vital Signs: Last Vital Signs Temp 98 F 09/14/23 15:35 Pulse 89 09/14/23 15:35 Resp 18 09/14/23 15:35 BP 144/67 H 09/14/23 15:35 Pulse Ox 95 09/14/23 15:35 O2 Del Method Room Air 09/14/23 10:33 O2 Flow Rate 2.0 09/14/23 07:30 BMI result Body Mass Index 39.8 Const: Other: General: Ax O X 3, no acute distress neck no JVD Resp: CTA bilateral CVS: S1,S2,RRR GI: +BS, right lower quadrant tenderness to superficial touch, soft to palpation, no guarding, no rigidity, no distention Skin: No rash extremities no pitting edema Neuro: motor grossly intact Psych: appropriate affect Objective Data Active Medications Acetaminophen (Acetaminophen 325 Mg Tablet) 650 mg PO Q6H PRN PRN Reason: Pain, Mild (Pain Scale 1-3) Last Admin: 09/14/23 07:56 Dose: 650 mg Al Hydroxide/Mg Hydroxide (Magnesium Hydrox/Alum Hydrox 30 Ml Oral.Susp) 30 ml PO Q4H PRN PRN Reason: Heartburn/Nausea Last Admin: 09/11/23 09:28 Dose: 30 ml Documented By: ARACELY Albuterol Sulfate (Albuterol Sulfate 90 Mcg 8 Gm Inhaler) 1 puff INHALE Q4H PRN PRN Reason: Shortness Of Breath Or Wheezing Last Admin: 09/12/23 22:23 Dose: 1 puff Documented By: BRITTON Amlodipine Besylate (Amlodipine Besylate 10 Mg Tablet) 10 mg PO DAILY [facility]; Protocol Last Admin: 09/14/23 07:52 Dose: 10 mg Documented By: LINO Atorvastatin Calcium (Atorvastatin Calcium 10 Mg Tablet) 10 mg PO BEDTIME RADHA Last Admin: 09/13/23 20:11 Dose: 10 mg Documented By: CATHY Bumetanide (Bumetanide 1 Mg Tablet) 2 mg PO BID [facility]; Protocol Last Admin: 09/14/23 07:52 Dose: 2 mg Documented By: LINO Clonidine HCl (Clonidine Hcl 0.1 Mg Tablet) 0.1 mg PO TID PRN; Protocol PRN Reason: Anxiety Last Admin: 09/13/23 01:23 Dose: 0.1 mg Documented By: ROXANA Dextrose (Dextrose 50 % 25 Gm/50 Ml Syringe) 25 gm IVPUSH Q15M PRN; Protocol PRN Reason: per Hypoglycemia Standing Ord. Dicyclomine HCl (Dicyclomine Hcl 10 Mg Capsule) 20 mg PO QIDACHS [facility] Last Admin: 09/14/23 11:23 Dose: 20 mg Documented By: LINO Doxepin HCl (Doxepin Hcl 25 Mg Capsule) 25 mg PO BEDTIME PRN PRN Reason: insomnia Enoxaparin Sodium (Enoxaparin Sodium 40 Mg/0.4 Ml Syringe) 40 mg SUBCUT Q24H [facility] Last Admin: 09/14/23 06:25 Dose: 40 mg Documented By: CATHY Glucose (Glucose Gel 15 Gm Gel..Gram.) 15 gm PO Q15M PRN; Protocol PRN Reason: per Hypoglycemia Standing Ord. Hydromorphone HCl (Hydromorphone Hcl 0.5 Mg/0.5 Ml Syringe) 0.5 mg IVPUSH Q4H PRN; Protocol PRN Reason: Pain, Severe (Pain Scale 7-10) Last Admin: 09/14/23 06:41 Dose: 0.5 mg Documented By: CATHY Hydroxyzine HCl (Hydroxyzine Hcl 50 Mg Tablet) 50 mg PO TID PRN PRN Reason: itch Last Admin: 09/14/23 06:48 Dose: 50 mg Documented By: CATHY Promethazine HCl 12.5 mg/ (Sodium Chloride) 50.5 mls @ 202 mls/hr IV Q6H PRN PRN Reason: Nausea and Vomiting Last Infusion: 09/11/23 13:10 Dose: Infused Documented By: JIMMY Insulin Glargine (Insulin Glargine,Hum.Rec.Anlog 100 Unit/Ml 10 Ml Vial) 15 unit SUBCUT BEDTIME [facility] Last Admin: 09/13/23 20:49 Dose: 15 unit Documented By: CATHY Insulin Human Lispro (Insulin Lispro 100 Unit/Ml 3 Ml Vial) 0 unit SUBCUT QIDACHS [facility]; Protocol Last Admin: 09/14/23 11:32 Dose: 6 unit Documented By: LINO Levothyroxine Sodium (Levothyroxine Sodium 112 Mcg Tablet) 112 mcg PO DAILY@0600 [facility] Last Admin: 09/14/23 06:25 Dose: 112 mcg Documented By: CATHY Lorazepam (Lorazepam 1 Mg Tablet) 1 mg PO DAILY PRN PRN Reason: Anxiety Last Admin: 09/13/23 22:30 Dose: 1 mg Documented By: CATHY Meclizine HCl (Meclizine Hcl 25 Mg Tablet) 25 mg PO Q6H PRN PRN Reason: vertigo Melatonin (Melatonin 3 Mg Tablet) 6 mg PO BEDTIME PRN PRN Reason: Insomnia Ondansetron HCl (Ondansetron Hcl 4 Mg/2 Ml Vial) 4 mg IVPUSH Q8H PRN PRN Reason: Nausea and Vomiting Last Admin: 09/14/23 13:01 Dose: 4 mg Documented By: LINO Sodium Chloride (0.9 % Sodium Chloride Flush 3 Ml Syringe) [facility] Last Admin: 09/14/23 07:58 Dose: 3 ml Documented By: LINO Tiotropium [place] (Tiotropium [place] 2.5 Mcg 1 Puff/2.5 Mcg Mist.Inhal) 2 puff INHALE RDAILY [facility] Last Admin: 09/14/23 08:14 Dose: 2 puff Documented By: MATTHIEU Trazodone HCl (Trazodone Hcl 50 Mg Tablet) 150 mg PO BEDTIME PRN PRN Reason: insomnia Last Admin: 09/12/23 22:23 Dose: 150 mg Documented By: BRITTON Vancomycin HCl (Vancomycin Hcl 125 Mg Capsule) 125 mg PO Q6H [facility] Last Admin: 09/14/23 11:23 Dose: 125 mg Documented By: LINO Labs 09/12/23 06:10 09/14/23 08:42 Labs: Laboratory Results - last 24 hr 09/13/23 09/13/23 09/13/23 16:29 18:06 20:40 Hold Purple Top Anion Gap 15 Estim Creat Clear Calc 101.7 Estimated GFR > 60 POC Glucose 111 106 Random Glucose 159 H Calcium 9.1 Magnesium 1.6 09/14/23 09/14/23 09/14/23 07:36 08:42 11:26 Hold Purple Top SEE NOTE Anion Gap 15 Estim Creat Clear Calc 98.0 Estimated GFR > 60 POC Glucose 146 H 270 H Random Glucose 182 H Calcium 9.1 Magnesium Assessment and Plan (1) Hypokalemia: Status: Acute (2) RLQ abdominal pain: Status: Acute (3) Type 2 diabetes mellitus: Status: Acute Plan 58-year-old female with pertinent history of essential hypertension, mixed hyperlipidemia, mood disorder, insulin-dependent diabetes mellitus, hypothyroidism, gastroesophageal reflux disease, congestive heart failure with preserved ejection fraction, obstructive sleep apnea on CPAP, asthma here with RLQ abdominal pain + leukocytosis. persistent abdominal pain of several months duration, initial CT without contrast showed no acute finding, due to persistent abdominal pain repeat CT with PO and IV contrast 09/12 showed no acute finding,initially treated with Zosyn but was discontinued due to itching with history of penicillin allergy, later treated with Levaquin + Flagyl 09/12 for possible colitis, WBC normalized diet was gradually advanced,Surgery (Dr. Winkler) and GI () saw the patient, no surgical intervention was required GI recommended close outpatient follow-up by primary laundry laborer Dr. Ballard, he also evaluated patient and recommended colonoscopy if no improvement, patient C diff toxin came back positive question colonization versus active infection due to persistent pain , loose stools and leukocytosis Will continue vancomycin for 10 days. due to recurrent nausea vomiting and persistent abdominal pain will monitor patient for 24 hours if symptoms persist will re-consult Dr. Levi for inpatient colonoscopy will DC IV Dilaudid and change Bentyl to q.i.d. as needed. Leucocytosis--related to above or reactive went from 20K to 9k, noted to have chronic intermittent leukocytosis. Acute lactic acidosis, likely related to above, came down with IVF and was not related to sepsis. Type 2 Diabetes Mellitus, continue Lantus Trulicity and pre meal insulin , hemoglobin A1c 6.4 continue diabetic diet Hypokalemia, repleted , follow labs at a.m. Hypothyroidism,continue levothyroxine. Obesity class II Encourage weight loss, recommended low-calorie diabetic diet and exercise Moderate Persistent Asthma without acute exacerbation continue home inhalers Chronic fluid overload--continue Bumex twice (by Dr. Hernandez on outpatient basis) recommend outpatient follow-up with pulmonology. MARY--CPAP at night , oxygenation stable 95% on room air recommend weight loss patient need continued inpatient hospitalization due to recurrent nausea vomiting and abdominal pain. Quality Stroke Does the patient have a stroke diagnosis?: No VTE Prior VTE?: No VTE Risk Level:: Medical - moderate - high VTE Device Contraindication: N/A - Device Ordered VTE Drug Contraindication: N/A - Med Ordered
[2023-09-14 16:27] LABS: Glucose, Whole Blood 203 mg/dL (60-115)
[2023-09-14 20:29] LABS: Glucose, Whole Blood 199 mg/dL (60-115)
[2023-09-14] MEDS: Atorvastatin Calcium 10 MG TABLET PO (21:49)
[2023-09-14] MEDS: Insulin Glargine,Hum.rec.anlog 100 UNIT/ML 10 ML VIAL 15 UNIT SUBCUT (21:50)
[2023-09-14] MEDS: cloNIDine HCL 0.1 MG TABLET PO (22:04)
--- NOTE | 2023-09-14 22:22 | PC.RT ---
pt has been vomiting, holding off on the CPAP fabiola, RN is aware. Pt is in no distress at this time and oxygenating appropriately.
[2023-09-15] VITALS: BP 179/96; PULSE 130; RESP 16; TEMP 36.7; O2SAT 97
[2023-09-15] MEDS: vancomycin HCL 125 MG CAPSULE PO ×5 (01:07→23:48)
[2023-09-15] MEDS: Prochlorperazine Edisylate 10 MG/2 ML VIAL IVPUSH (01:07)
--- NOTE | 2023-09-15 01:34 | PC.NURSE ---
pt vomiting several times this evening zofran was given first with very little relief, then dilaudid for pain and clonidine , and atarax for anxiety. pt slept for little while. at 0000 pt woke up vomiting again her hr is 130 bp 179/[address] Alonzo came to see pt , order for compazine given. pt resting now will recheck vs HR is in 120s but shes resting with eyes closed.
[2023-09-15] MEDS: HYDROmorphone HCl 1 MG/ML SYRINGE IVPUSH (04:12)
[2023-09-15] MEDS: Potassium Chloride/H20 10 MEQ/100 ML PIGGYBACK 100 MEQ IV ×2 (04:12→05:14)
[2023-09-15] MEDS: Magnesium Sulfate/H2O 2 GM/50 ML PIGGYBACK IV (04:30)
[2023-09-15 04:36] VITALS: BP 134/68; PULSE 124; RESP 16; TEMP 37.3; O2SAT 94
[2023-09-15] MEDS: Magnesium Hydrox/Alum Hydrox 30 ML ORAL.SUSP PO (05:14)
[2023-09-15] MEDS: Levothyroxine Sodium 112 MCG TABLET PO (05:14)
[2023-09-15 06:32] LABS: MANUAL DIFF FLAG NO
[2023-09-15] MEDS: Enoxaparin Sodium 40 MG/0.4 ML SYRINGE SUBCUT (06:44)
[2023-09-15 06:48] LABS: Basophils Percent Auto 0.1 % (0-2); Eosinophils Absolute Auto 0.1 X10*3/uL (0.0-0.4); Eosinophils Percent Auto 0.3 % (0-4); Hemoglobin 11.9 g/dl (12.0-16.0); Imm Gran Abs Auto 0.11 X10*3/uL (0.00-0.03); Imm Gran Pct Auto 0.6 % (0.0-0.4); Lymphocytes Absolute Auto 1.8 X10*3/uL (1.2-4.9); Lymphocytes Percent Auto 10.4 % (20-40); Mean Corpuscular HGB Conc 29.8 g/dl (31.0-35.0); Mean Corpuscular Hemoglobin 21.8 pg (27.0-33.0); Mean Corpuscular Volume 73.3 fL (80.0-98.0); Mean Platelet Volume 10.8 fL (9.4-12.3); Monocytes Absolute Auto 0.6 X10*3/uL (0.1-1.2); Monocytes Percent Auto 3.7 % (2-11); Neutrophils Absolute Auto 14.4 x10*3/uL (2.0-8.3); Neutrophils Percent Auto 84.9 % (45-73); Platelet Count 343 X10*3/uL (160-400); Red Blood Count 5.46 X10*6/uL (4.20-5.50); Red Cell Distribution Width 19.2 % (11.0-16.0)
[2023-09-15 07:05] LABS: Alanine Aminotransferase 14 U/L (0-31); Alkaline Phosphatase 97 U/L (39-117); Anion Gap 13 (12-20); Aspartate Amino Transferase 12 U/L (5-31); Bilirubin Total 0.4 mg/dL (0.0-1.0); Blood Urea Nitrogen 6 mg/dL (9-16); Calcium 9.5 mg/dL (8.4-10.2); Carbon Dioxide 31 mmol/L (22-29); Chloride 99 mmol/L (96-108); Estimated Glomerular Filt Rate > 60; Glucose Random 149 mg/dL (60-115); Magnesium 2.6 mg/dL (1.6-2.6); Phosphorus 3.2 mg/dL (2.7-4.5); Potassium 3.5 mmol/L (3.3-5.1); Sodium 139 mmol/L (135-145); Total Protein 8.1 g/dL (6.5-8.0)
[2023-09-15 07:34] LABS: Glucose, Whole Blood 137 mg/dL (60-115)
[2023-09-15 07:36] VITALS: BP 128/75; PULSE 106; RESP 17; TEMP 36.8; O2SAT 92
[2023-09-15 08:12] VITALS: PULSE 118; RESP 16; O2SAT 97
[2023-09-15] MEDS: Tiotropium Bromide 2.5 mcg 1 PUFF/2.5 MCG MIST.INHAL 2 PUFF INHALE (08:12)
[2023-09-15] MEDS: amLODIPine Besylate 10 MG TABLET PO (08:16)
[2023-09-15] MEDS: ondansetron HCL 4 MG/2 ML VIAL IVPUSH (08:16)
[2023-09-15] MEDS: LORazepam 1 MG TABLET PO (08:16)
[2023-09-15] MEDS: Bumetanide 1 MG TABLET 2 MG PO (08:16)
[2023-09-15] MEDS: 0.9 % Sodium Chloride Flush 3 ML SYRINGE IVFLUSH ×3 (08:17→20:56)
[2023-09-15] MEDS: Dicyclomine HCl 10 MG CAPSULE 20 MG PO ×2 (08:17→20:53)
--- NOTE | 2023-09-15 08:20 | MHC.CM.PN ---
Addendum entered by Sherie Arreguin 09/15/23 10:39: Per MD rounds today patient is not ready to discharge. DP Home with resumption of [facility] services. Patient will arrange for transportation home. Original Note: Discharge held yesterday. Patient vomiting.
[2023-09-15] MEDS: Acetaminophen 325 MG TABLET 650 MG PO ×3 (08:28→20:52)
[2023-09-15 11:21] LABS: Glucose, Whole Blood 143 mg/dL (60-115)
--- NOTE | 2023-09-15 13:22 | HO.PM.IMPN ---
Subjective Subjective Date of Service: 09/15/23 Interval History: events from last night noted patient noted to have nausea, vomiting, headache, this morning feels better continue to have persistent abdominal pain that she has for greater than 1 year and now worsened in last 1 month no associated weight loss no hematemesis, no melena. Review of Systems All other system reviewed and negative. Physical Exam Vital Signs: Vital Signs: Last Vital Signs Temp 98.3 F 09/15/23 07:36 Pulse 118 H 09/15/23 08:12 Resp 16 09/15/23 08:12 BP 128/75 09/15/23 07:36 Pulse Ox 92 09/15/23 07:36 O2 Del Method Nasal Cannula 09/15/23 07:36 O2 Flow Rate 2.0 09/15/23 07:36 BMI result Body Mass Index 39.8 Const: Other: General: Ax O X 3, no acute distress neck no JVD Resp: CTA bilateral CVS: S1,S2,RRR GI: +BS, diffuse tenderness to superficial touch, soft to palpation, no guarding, no rigidity, no distention Skin: No rash extremities no pitting edema Neuro: motor grossly intact Psych: appropriate affect Objective Data Active Medications Acetaminophen (Acetaminophen 325 Mg Tablet) 650 mg PO Q6H PRN PRN Reason: Pain, Mild (Pain Scale 1-3) Last Admin: 09/15/23 08:28 Dose: 650 mg Documented By: LINO Al Hydroxide/Mg Hydroxide (Magnesium Hydrox/Alum Hydrox 30 Ml Oral.Susp) 30 ml PO Q4H PRN PRN Reason: Heartburn/Nausea Last Admin: 09/15/23 05:14 Dose: 30 ml Documented By: RENATA Albuterol Sulfate (Albuterol Sulfate 90 Mcg 8 Gm Inhaler) 1 puff INHALE Q4H PRN PRN Reason: Shortness Of Breath Or Wheezing Last Admin: 09/12/23 22:23 Dose: 1 puff Documented By: BRITTON Amlodipine Besylate (Amlodipine Besylate 10 Mg Tablet) 10 mg PO DAILY [facility]; Protocol Last Admin: 09/15/23 08:16 Dose: 10 mg Documented By: LINO Atorvastatin Calcium (Atorvastatin Calcium 10 Mg Tablet) 10 mg PO BEDTIME [facility] Last Admin: 09/14/23 21:49 Dose: 10 mg Documented By: RENATA Bisacodyl (Bisacodyl 5 Mg Tablet.Dr) 20 mg PO ONCE ONE Stop: 09/15/23 14:42 Bumetanide (Bumetanide 1 Mg Tablet) 2 mg PO DAILY [facility]; Protocol Clonidine HCl (Clonidine Hcl 0.1 Mg Tablet) 0.1 mg PO TID PRN; Protocol PRN Reason: Anxiety Last Admin: 09/14/23 22:04 Dose: 0.1 mg Documented By: RENATA Dextrose (Dextrose 50 % 25 Gm/50 Ml Syringe) 25 gm IVPUSH Q15M PRN; Protocol PRN Reason: per Hypoglycemia Standing Ord. Dicyclomine HCl (Dicyclomine Hcl 10 Mg Capsule) 20 mg PO QIDACHS PRN PRN Reason: abdominal pain Last Admin: 09/15/23 08:17 Dose: 20 mg Documented By: LINO Doxepin HCl (Doxepin Hcl 25 Mg Capsule) 25 mg PO BEDTIME PRN PRN Reason: insomnia Enoxaparin Sodium (Enoxaparin Sodium 40 Mg/0.4 Ml Syringe) 40 mg SUBCUT Q24H [facility] Last Admin: 09/15/23 06:44 Dose: 40 mg Documented By: RENATA Glucose (Glucose Gel 15 Gm Gel..Gram.) 15 gm PO Q15M PRN; Protocol PRN Reason: per Hypoglycemia Standing Ord. Hydroxyzine HCl (Hydroxyzine Hcl 50 Mg Tablet) 50 mg PO TID PRN PRN Reason: itch Last Admin: 09/14/23 22:04 Dose: 50 mg Documented By: RENATA Promethazine HCl 12.5 mg/ (Sodium Chloride) 50.5 mls @ 202 mls/hr IV Q6H PRN PRN Reason: Nausea and Vomiting Last Infusion: 09/11/23 13:10 Dose: Infused Documented By: JIMMY Insulin Glargine (Insulin Glargine,Hum.Rec.Anlog 100 Unit/Ml 10 Ml Vial) 8 unit SUBCUT BEDTIME [facility] Insulin Human Lispro (Insulin Lispro 100 Unit/Ml 3 Ml Vial) 0 unit SUBCUT QIDACHS [facility]; Protocol Last Admin: 09/15/23 12:20 Dose: Not Given Documented By: LINO Non-Admin Reason: No Insulin Coverage Levothyroxine Sodium (Levothyroxine Sodium 112 Mcg Tablet) 112 mcg PO DAILY@0600 [facility] Last Admin: 09/15/23 05:14 Dose: 112 mcg Documented By: RENATA Lorazepam (Lorazepam 1 Mg Tablet) 1 mg PO DAILY PRN PRN Reason: Anxiety Last Admin: 09/15/23 08:16 Dose: 1 mg Documented By: LINO Meclizine HCl (Meclizine Hcl 25 Mg Tablet) 25 mg PO Q6H PRN PRN Reason: vertigo Melatonin (Melatonin 3 Mg Tablet) 6 mg PO BEDTIME PRN PRN Reason: Insomnia Ondansetron HCl (Ondansetron Hcl 4 Mg/2 Ml Vial) 4 mg IVPUSH Q8H PRN PRN Reason: Nausea and Vomiting Last Admin: 09/15/23 08:16 Dose: 4 mg Documented By: LINO Polyethylene Glycol/Electrolytes (Peg 3350/Na Sulf,Bicarb,Cl/Kcl 4,000 Ml Soln.Recon) 4,000 ml PO ONCE ONE Stop: 09/15/23 18:46 Sodium Biphosphate/Sodium Phosphate (Sodium Phosphate,[place]-Dibasic 133 Ml Enema) 133 ml AR ONCE PRN PRN Reason: Consult order Sodium Chloride (0.9 % Sodium Chloride Flush 3 Ml Syringe) 3 ml IVFLUSH QSHIFT [facility] Last Admin: 09/15/23 08:17 Dose: 3 ml Documented By: LINO Tiotropium [place] (Tiotropium [place] 2.5 Mcg 1 Puff/2.5 Mcg Mist.Inhal) 2 puff INHALE RDAILY [facility] Last Admin: 09/15/23 08:12 Dose: 2 puff Documented By: JESSICA Trazodone HCl (Trazodone Hcl 50 Mg Tablet) 150 mg PO BEDTIME PRN PRN Reason: insomnia Last Admin: 09/12/23 22:23 Dose: 150 mg Documented By: BRITTON Vancomycin HCl (Vancomycin Hcl 125 Mg Capsule) 125 mg PO Q6H [facility] Last Admin: 09/15/23 12:19 Dose: 125 mg Documented By: LINO Labs 09/15/23 05:53 09/15/23 05:53 Labs: Laboratory Results - last 24 hr 09/14/23 09/14/23 09/15/23 16:01 20:22 05:53 MCV 73.3 L MCH 21.8 L MCHC 29.8 L RDW 19.2 H Plt Count 343 D MPV 10.8 Immature Gran % (Auto) 0.6 H Neut % (Auto) 84.9 H Lymph % (Auto) 10.4 L [place] % (Auto) 3.7 Eos % (Auto) 0.3 Baso % (Auto) 0.1 Lymph # (Auto) 1.8 [place] # (Auto) 0.6 Eos # (Auto) 0.1 Baso # (Auto) 0.0 Abs Immat Gran (auto) 0.11 H Absolute Neuts (auto) 14.4 H Absolute Nucleated RBC 0.000 Nucleated RBC % (auto) 0.0 Anion Gap 13 Estim Creat Clear Calc 107.0 Estimated GFR > 60 POC Glucose 203 H 199 H Random Glucose 149 H Calcium 9.5 Phosphorus 3.2 Magnesium 2.6 Total Bilirubin 0.4 AST 12 ALT 14 Alkaline Phosphatase 97 C-Reactive Protein 4.10 H Total Protein 8.1 H Albumin 4.0 09/15/23 09/15/23 07:17 11:15 MCV MCH MCHC RDW Plt Count MPV Immature Gran % (Auto) Neut % (Auto) Lymph % (Auto) [place] % (Auto) Eos % (Auto) Baso % (Auto) Lymph # (Auto) [place] # (Auto) Eos # (Auto) Baso # (Auto) Abs Immat Gran (auto) Absolute Neuts (auto) Absolute Nucleated RBC Nucleated RBC % (auto) Anion Gap Estim Creat Clear Calc Estimated GFR POC Glucose 137 H 143 H Random Glucose Calcium Phosphorus Magnesium Total Bilirubin AST ALT Alkaline Phosphatase C-Reactive Protein Total Protein Albumin Assessment and Plan (1) Hypokalemia: Status: Acute (2) RLQ abdominal pain: Status: Acute (3) Type 2 diabetes mellitus: Status: Acute Plan 58-year-old female with pertinent history of essential hypertension, mixed hyperlipidemia, mood disorder, insulin-dependent diabetes mellitus, hypothyroidism, gastroesophageal reflux disease, congestive heart failure with preserved ejection fraction, obstructive sleep apnea on CPAP, asthma here with RLQ abdominal pain + leukocytosis. persistent abdominal pain of several months duration, initial CT without contrast showed no acute finding, due to persistent abdominal pain repeat CT with PO and IV contrast 09/12 showed no acute finding,initially treated with Zosyn but was discontinued due to itching with history of penicillin allergy, later treated with Levaquin + Flagyl 09/12 for possible colitis, WBC normalized diet was gradually advanced,Surgery (Dr. Winkler) and GI () saw the patient, no surgical intervention was required C diff toxin came back positive question colonization versus active infection due to intermittent leukocytosis loose stools patient being treated with vancomycin 125 q.6 hours for 10 days since patient continued to have abdominal pain with intermittent nausea vomiting therefore case discussed with Dr. Baker and patient will undergo upper endoscopy and colonoscopy scheduled for tomorrow. will avoid Dilaudid, continue as needed Bentyl, patient placed on clear liquid diet Leucocytosis--related to above or reactive noted to have chronic intermittent leukocytosis. Acute lactic acidosis, likely related to above, came down with IVF and was not related to sepsis. Type 2 Diabetes Mellitus, continue Lantus Trulicity and pre meal insulin , hemoglobin A1c 6.4 continue diabetic diet, will decrease dose of Lantus to have since patient is on clear liquid and will be NPO after midnight. Hypokalemia, repleted , follow labs at a.m. Hypothyroidism,continue levothyroxine. Obesity class II Encourage weight loss, recommended low-calorie diabetic diet and exercise Moderate Persistent Asthma without acute exacerbation continue home inhalers Chronic fluid overload--continue Bumex change dose to daily . MARY--CPAP at night , oxygenation stable 95% on room air recommend weight loss patient need continued inpatient hospitalization due to recurrent nausea vomiting and abdominal pain requiring upper and lower endoscopy. Quality Stroke Does the patient have a stroke diagnosis?: No VTE Prior VTE?: No VTE Risk Level:: Medical - moderate - high VTE Device Contraindication: N/A - Device Ordered VTE Drug Contraindication: N/A - Med Ordered
[2023-09-15] MEDS: bisacodyL 5 MG TABLET.DR 20 MG PO (15:03)
[2023-09-15] MEDS: cloNIDine HCL 0.1 MG TABLET PO (15:07)
[2023-09-15 15:16] VITALS: BP 148/64; PULSE 92; RESP 18; TEMP 36.3; O2SAT 92
[2023-09-15] MEDS: PEG 3350/Na Sulf,Bicarb,Cl/KCL 4,000 ML SOLN.RECON 4000 ML PO (17:43)
[2023-09-15 17:52] LABS: Glucose, Whole Blood 142 mg/dL (60-115)
[2023-09-15 20:36] LABS: Glucose, Whole Blood 147 mg/dL (60-115)
[2023-09-15] MEDS: hydrOXYzine HCL 50 MG TABLET PO (20:52)
[2023-09-15] MEDS: Atorvastatin Calcium 10 MG TABLET PO (20:52)
[2023-09-15 23:24] VITALS: BP 143/72; PULSE 100; RESP 18; TEMP 36; O2SAT 96
[2023-09-15] MEDS: Melatonin 3 MG TABLET 6 MG PO (23:48)
[2023-09-15] MEDS: traZODone HCL 50 MG TABLET 150 MG PO (23:49)
[2023-09-16] VITALS (9 sets, daily range): BP systolic 100–124; BP diastolic 59–72; PULSE 83–104; RESP 16–18; TEMP 36.1–37; O2SAT 92–99
--- NOTE | 2023-09-16 01:57 | PC.NURSE ---
pt was able to drink 2/3 of golytely she stated she wont drink any more because she doesn't want to get sick . stool is liquid but still brown.
[2023-09-16] MEDS: Acetaminophen 325 MG TABLET 650 MG PO ×3 (03:21→18:13)
[2023-09-16] MEDS: cloNIDine HCL 0.1 MG TABLET PO ×3 (03:24→21:29)
[2023-09-16] MEDS: Enoxaparin Sodium 40 MG/0.4 ML SYRINGE SUBCUT (06:13)
[2023-09-16] MEDS: vancomycin HCL 125 MG CAPSULE PO ×3 (06:13→17:02)
[2023-09-16] MEDS: Levothyroxine Sodium 112 MCG TABLET PO (06:13)
[2023-09-16 07:26] LABS: Glucose, Whole Blood 117 mg/dL (60-115)
[2023-09-16] MEDS: Bumetanide 1 MG TABLET 2 MG PO (07:56)
[2023-09-16] MEDS: 0.9 % Sodium Chloride Flush 3 ML SYRINGE IVFLUSH ×2 (07:56→21:31)
[2023-09-16] MEDS: amLODIPine Besylate 10 MG TABLET PO (07:56)
--- NOTE | 2023-09-16 08:16 | PC.NURSE ---
Pt bowel movement clear this AM.
--- NOTE | 2023-09-16 09:31 | PC.NURSE ---
Pt offered APAP and hot pack fro abd pain, refused. Per MD no Narcs.
--- NOTE | 2023-09-16 10:27 | PC.NURSE ---
Pt states she takes her Trulicity every Wednesday.
--- NOTE | 2023-09-16 10:36 | PC.NURSE ---
Telephone report given to SSS
--- NOTE | 2023-09-16 11:06 | MHC.CM.PN ---
PER MD ROUNDS, PT HAS PROCEDURE PLANNED FOR TODAY AND WILL NOT BE READY TO DC DCP REMAINS HOME WITH [employer] OF [employer]
[2023-09-16 11:19] LABS: Glucose, Whole Blood 135 mg/dL (60-115)
[2023-09-16] MEDS: Tiotropium Bromide 2.5 mcg 1 PUFF/2.5 MCG MIST.INHAL 2 PUFF INHALE (12:00)
--- NOTE | 2023-09-16 13:51 | P.PNGI_ITS ---
Subjective Subjective Date of Service: 09/16/23 Interval History: ongoing pain RLQ passing gas and stool no nausea appetite fair no fevers Critical Care Time (minutes): 0 Physical Exam 2 Vital Signs: Vital Signs: Last Vital Signs Temp 97.1 F 09/16/23 07:45 Pulse 103 H 09/16/23 12:02 Resp 18 09/16/23 12:02 BP 106/60 09/16/23 07:45 Pulse Ox 95 09/16/23 07:45 O2 Del Method CPAP 09/16/23 07:45 O2 Flow Rate 2.0 09/15/23 07:36 BMI result Body Mass Index 39.8 EXAM: GENERAL: The patient is obese VITAL SIGNS:see workflow HEENT: Nonicteric sclerae, PERRLA, EOMI. Oropharynx clear. Moist mucous membranes. Conjunctivae appear well perfused. No thyroid mass. CHEST: Chest wall is nontender. HEART: Regular rate and rhythm without murmurs. LUNGS: Clear to auscultation bilaterally. ABDOMEN: Soft, positive bowel sounds, tender RLQ, no organomegaly.no flank tenderness SKIN: No rash, no excessive bruising, petechiae, or purpura. NEUROLOGIC: Cranial nerves II-XII intact without motor/sensory deficit. Objective Data Labs 09/15/23 05:53 09/15/23 05:53 Labs: Laboratory Results - last 24 hr 09/15/23 09/15/23 09/16/23 17:47 20:28 07:20 POC Glucose 142 H 147 H 117 H 09/16/23 11:15 POC Glucose 135 H Microbiology Microbiology Results: Microbiology 09/11/23 03:46 Blood - Venous Blood Culture - Final No growth after 5 days. 09/11/23 03:40 Blood - Venous Blood Culture - Final No growth after 5 days. 09/11/23 06:39 Urine clean catch - Clean Catch Midstream Urine Culture - Final Procedures Date of Service Date of Service: 09/16/23 Progress Note: A&P Assessment and plan (1) RLQ abdominal pain: Status: Acute Plan 1/ Ongoing RLQ pain, need to r/o crohns jose with recent history last admission, also has anemia which maybe dilutional PLAN: /1 - EGD, colonoscopy today 2/ commence mesalamine if above studies neg 3/ can give trial of bentyl for pain as well Time Spent With Patient Time: Total time managing care of this patient today ____ minutes. Quality Stroke Does the patient have a stroke diagnosis?: No VTE Prior VTE?: No VTE Risk Level:: Medical - moderate - high VTE Device Contraindication: N/A - Device Ordered VTE Drug Contraindication: N/A - Med Ordered
--- NOTE | 2023-09-16 13:52 | MHC.SHP ---
Pre-Procedural Eval Section A Date of Service: 09/16/23 The patient is an INPATIENT: Yes The History & Physical has been completed within 30 days and I have reviewed it.: Yes Section B Chief Complaint: RLQ Abdominal Pain Elev Lactic Acid Allergies: Allergies Allergy/AdvReac Type Severity Reaction Status Date / Time Penicillins Allergy Severe swelling Verified 09/10/23 22:25 adhesive tape [ADHESIVE TAPE] Allergy Intermediate RASH Verified 09/10/23 22:25 amoxicillin [AMOXICILLIN] Allergy Intermediate RASH,SWELLI Verified 09/10/23 22:25 NG ibuprofen [From Motrin] Allergy Intermediate Hypertensio Verified 09/10/23 22:25 n latex Allergy Intermediate Rash Verified 09/10/23 22:25 Plan Diagnosis/Plan: Unchanged I have reviewed the history and physical and performed a pertinent physical examination on my patient. No changes have occurred unless specified. Time Spent With Patient Time: Total time managing care of this patient today ____ minutes.
--- NOTE | 2023-09-16 13:57 | PC.NURSE ---
This a.m. patient reported to her floor nurse that her last dose of Trulicity was Wednesday - 4 days ago and procedure was cancelled for today. Patient then spoke with GI doctor and stated that she missed her dose on this past Wednesday and last took Trulicity on 09/05/23 and that she had been mistaken. Dr. Strong aware as well. Patient RN stated patient has remained NPo and will be brought down to [facility].
[2023-09-16 14:25] LABS: Glucose, Whole Blood 131 mg/dL (60-115)
--- NOTE | 2023-09-16 14:57 | P.OP_ITS ---
Operative Note Operative Note Date of Service: 09/16/23 Narrative: Operative Information Procedure Description: EGD, Colonoscopy Indication: RLQ pain, raised CRP Anesthesia: GA FLEXIBLE TRANSORAL UPPER GASTROINTESTINAL ENDOSCOPY AND COLONOSCOPY PROCEDURE NOTE UPPER ENDOSCOPY Consent: Indications for the procedure and potential complications of bleeding, perforation, reaction to medications and missed diagnosis were discussed with the patient and informed consent was obtained. Instrument: Olympus GIF H 190 J mid size upper endoscope Monitoring: Vital signs and clinical assessment, continuous EKG monitoring, Pulse oximetry, Carbon Dioxide monitoring and blood pressure monitoring were done throughout the procedure. Procedure: The patient was placed in the left lateral decubitis position and pre-procedure medications were administered and a bite block was placed. The endoscope was inserted into the mouth and advanced under direct vision to the third part of duodenum. A careful inspection was made as the upper endoscope was withdrawn including a retroflexed examination of the proximal stomach; Findings and interventions are described below. Findings: Larynx:normal Esophagus: GE junction at 40 cm, diaphragm hiatus at 40 cm, mild-moderate esophagitis at GEJ noted Stomach: Normal mucosa. Grade 2 flap valve on retroflexed examination of the cardia. Duodenum: Normal bulb and descending duodenum, papilla seen and was normal Intervention: Biopsies as noted above COLONOSCOPY Instrument: Olympus variable stiffness pediatric scope 190L Colonoscopy Monitoring: Vital signs and clinical assessment, continuous EKG monitoring, Pulse oximetry, Carbon Dioxide monitoring and blood pressure monitoring were done throughout the procedure. Colon withdrawal time was 8 minutes. Procedure: The patient was placed in the left lateral decubitis position and pre-procedure medications were administered. After a digital rectal examination of the ano-rectum, the video colonoscope was inserted into the rectum and advanced through the colon to the cecum/TI. The colonoscope was slowly withdrawn in a retrograde panoramic fashion and the colon mucosa was carefully examined including a retroflexed view of the rectum. Findings and interventions are described below. Procedure Difficulty:easy Findings: Reduced colonic motility Terminal Ileum-normal, bx taken Cecum:normal, bx taken, 4-5 mm sessile polyp removed with cold biopsy forceps Ascending Colon: normal, random bx taken Transverse Colon -normal Descending Colon:normal Sigmoid Colon: normal Rectum: Retroflexion with small internal hemorrhoids, grade I Anorectum - normal Colon preparation: [place] Bowel Preparation Scale Right colon; 2 Transverse colon: 3 Left colon; 3 (0 = Unprepared colon segment with mucosa not seen due to solid stool that cannot be cleared. 1 = Portion of mucosa of the colon segment seen, but other areas of the colon segment not well seen due to staining, residual stool and/or opaque liquid. 2 = Minor amount of residual staining, small fragments of stool and/or opaque liquid, but mucosa of colon segment seen well. 3 = Entire mucosa of colon segment seen well with no residual staining, small fragments of stool or opaque liquid) Impression and Post Procedure Diagnosis: Endoscopy Findings: esophagitis Colonoscopy Findings: colonic dysmotility internal hemorrhoids cecal polyp Plan: Await Pathology results Repeat Colonoscopy in 5-7 years due to polyp or earlier if clinically indicated High fiber diet leaflet avoid straining at stool, epsom salts and sitz bath, anusol supps or cream trial of mesalamine consider o/p VCE Above findings were reviewed with the patient and relevant handouts were provided if indicated.
--- NOTE | 2023-09-16 15:07 | HO.PM.IMPN ---
Subjective Subjective Date of Service: 09/16/23 Interval History: Complaining of persistent abdominal pain and feeling cold this morning is NPO for EGD and colonoscopy, no nausea, no vomiting overnight, no fevers, no shortness of breath no other acute issues in last 24 hours. Review of Systems All other system reviewed and negative. Physical Exam Vital Signs: Vital Signs: Last Vital Signs Temp 98.6 F 09/16/23 14:13 Pulse 104 H 09/16/23 14:13 Resp 18 09/16/23 14:13 BP 124/69 09/16/23 14:13 Pulse Ox 95 09/16/23 14:13 O2 Del Method Room Air 09/16/23 14:13 O2 Flow Rate 2.0 09/15/23 07:36 BMI result Body Mass Index 39.8 Const: Other: General: A x O X 3, no acute distress neck no JVD Resp: CTA bilateral CVS: S1,S2,RRR GI: +BS, diffuse tenderness to superficial touch unchanged since yesterday cannot be consulted for this reason, soft to palpation, no guarding, no rigidity, no distention Skin: No rash extremities no pitting edema Neuro: motor grossly intact Psych: appropriate affect Objective Data Active Medications Acetaminophen (Acetaminophen 325 Mg Tablet) 650 mg PO Q6H PRN PRN Reason: Pain, Mild (Pain Scale 1-3) Last Admin: 09/16/23 12:02 Dose: 650 mg Documented By: MARILYN Al Hydroxide/Mg Hydroxide (Magnesium Hydrox/Alum Hydrox 30 Ml Oral.Susp) 30 ml PO Q4H PRN PRN Reason: Heartburn/Nausea Last Admin: 09/15/23 05:14 Dose: 30 ml Documented By: RENATA Albuterol Sulfate (Albuterol Sulfate 90 Mcg 8 Gm Inhaler) 1 puff INHALE Q4H PRN PRN Reason: Shortness Of Breath Or Wheezing Last Admin: 09/12/23 22:23 Dose: 1 puff Documented By: BRITTON Amlodipine Besylate (Amlodipine Besylate 10 Mg Tablet) 10 mg PO DAILY [facility]; Protocol Last Admin: 09/16/23 07:56 Dose: 10 mg Documented By: MARILYN Atorvastatin Calcium (Atorvastatin Calcium 10 Mg Tablet) 10 mg PO BEDTIME [facility] Last Admin: 09/15/23 20:52 Dose: 10 mg Documented By: RENATA Bumetanide (Bumetanide 1 Mg Tablet) 2 mg PO DAILY RADHA; Protocol Last Admin: 09/16/23 07:56 Dose: 2 mg Documented By: MARILYN Clonidine HCl (Clonidine Hcl 0.1 Mg Tablet) 0.1 mg PO TID PRN; Protocol PRN Reason: Anxiety Last Admin: 09/16/23 12:04 Dose: 0.1 mg Documented By: MARILYN Dextrose (Dextrose 50 % 25 Gm/50 Ml Syringe) 25 gm IVPUSH Q15M PRN; Protocol PRN Reason: per Hypoglycemia Standing Ord. Dicyclomine HCl (Dicyclomine Hcl 10 Mg Capsule) 20 mg PO QIDACHS PRN PRN Reason: abdominal pain Last Admin: 09/15/23 20:53 Dose: 20 mg Documented By: RENATA Doxepin HCl (Doxepin Hcl 25 Mg Capsule) 25 mg PO BEDTIME PRN PRN Reason: insomnia Enoxaparin Sodium (Enoxaparin Sodium 40 Mg/0.4 Ml Syringe) 40 mg SUBCUT Q24H RADHA Last Admin: 09/16/23 06:13 Dose: 40 mg Documented By: RENATA Glucose (Glucose Gel 15 Gm Gel..Gram.) 15 gm PO Q15M PRN; Protocol PRN Reason: per Hypoglycemia Standing Ord. Hydroxyzine HCl (Hydroxyzine Hcl 50 Mg Tablet) 50 mg PO TID PRN PRN Reason: itch Last Admin: 09/15/23 20:52 Dose: 50 mg Documented By: RENATA Promethazine HCl 12.5 mg/ (Sodium Chloride) 50.5 mls @ 202 mls/hr IV Q6H PRN PRN Reason: Nausea and Vomiting Last Infusion: 09/11/23 13:10 Dose: Infused Documented By: JIMMY Insulin Glargine (Insulin Glargine,Hum.Rec.Anlog 100 Unit/Ml 10 Ml Vial) 8 unit SUBCUT BEDTIME RADHA Last Admin: 09/15/23 22:22 Dose: Not Given Documented By: RENATA Non-Admin Reason: NPO Comments: pt npo after mn for procedure Insulin Human Lispro (Insulin Lispro 100 Unit/Ml 3 Ml Vial) 0 unit SUBCUT QIDACHS [facility]; Protocol Last Admin: 09/16/23 11:48 Dose: Not Given Documented By: MARILYN Non-Admin Reason: No Insulin Coverage Levothyroxine Sodium (Levothyroxine Sodium 112 Mcg Tablet) 112 mcg PO DAILY@0600 [facility] Last Admin: 09/16/23 06:13 Dose: 112 mcg Documented By: RENATA Meclizine HCl (Meclizine Hcl 25 Mg Tablet) 25 mg PO Q6H PRN PRN Reason: vertigo Melatonin (Melatonin 3 Mg Tablet) 6 mg PO BEDTIME PRN PRN Reason: Insomnia Last Admin: 09/15/23 23:48 Dose: 6 mg Documented By: RENATA Mesalamine (Mesalamine 400 Mg Cap.Drtab.) 800 mg PO TID [facility] Last Admin: 09/16/23 14:30 Dose: Not Given Documented By: MARILYN Non-Admin Reason: Off Unit: Surgery Ondansetron HCl (Ondansetron Hcl 4 Mg/2 Ml Vial) 4 mg IVPUSH Q8H PRN PRN Reason: Nausea and Vomiting Last Admin: 09/15/23 08:16 Dose: 4 mg Documented By: LINO Sodium Biphosphate/Sodium Phosphate (Sodium Phosphate,[place]-Dibasic 133 Ml Enema) 133 ml CA ONCE PRN PRN Reason: Consult order Sodium Chloride (0.9 % Sodium Chloride Flush 3 Ml Syringe) 3 ml IVFLUSH QSHIFT [facility] Last Admin: 09/16/23 14:30 Dose: Not Given Documented By: MARILYN Non-Admin Reason: Off Unit: Surgery Tiotropium [place] (Tiotropium [place] 2.5 Mcg 1 Puff/2.5 Mcg Mist.Inhal) 2 puff INHALE RDAILY [facility] Last Admin: 09/16/23 12:00 Dose: 2 puff Documented By: RAF Trazodone HCl (Trazodone Hcl 50 Mg Tablet) 150 mg PO BEDTIME PRN PRN Reason: insomnia Last Admin: 09/15/23 23:49 Dose: 150 mg Documented By: RENATA Vancomycin HCl (Vancomycin Hcl 125 Mg Capsule) 125 mg PO Q6H [facility] Last Admin: 09/16/23 12:02 Dose: 125 mg Documented By: MARILYN Labs 09/15/23 05:53 09/15/23 05:53 Labs: Laboratory Results - last 24 hr 09/15/23 09/15/23 09/16/23 17:47 20:28 07:20 POC Glucose 142 H 147 H 117 H 09/16/23 09/16/23 11:15 14:10 POC Glucose 135 H 131 H Microbiology Microbiology Results: Microbiology 09/11/23 03:46 Blood Culture - Final Blood - Venous No growth after 5 days. 09/11/23 03:40 Blood Culture - Final Blood - Venous No growth after 5 days. Assessment and Plan (1) Hypokalemia: Status: Acute (2) RLQ abdominal pain: Status: Acute (3) Type 2 diabetes mellitus: Status: Acute Plan 58-year-old female with pertinent history of essential hypertension, mixed hyperlipidemia, mood disorder, insulin-dependent diabetes mellitus, hypothyroidism, gastroesophageal reflux disease, congestive heart failure with preserved ejection fraction, obstructive sleep apnea on CPAP, asthma here with RLQ abdominal pain + leukocytosis. persistent abdominal pain of several months duration, initial CT without contrast showed no acute finding, due to persistent abdominal pain repeat CT with PO and IV contrast 09/12 showed no acute finding,initially treated with Zosyn but was discontinued due to itching with history of penicillin allergy, later treated with Levaquin + Flagyl 09/12 for possible colitis, WBC normalized diet was gradually advanced,Surgery (Dr. Winkler) and GI () saw the patient, no surgical intervention was required C diff toxin came back positive question colonization versus active infection due to intermittent leukocytosis loose stools patient being treated with vancomycin 125 q.6 hours for 10 days since patient continued to have abdominal pain with intermittent nausea vomiting therefore case discussed with Dr. Baker and patient underwent upper endoscopy and colonoscopy today Upper endoscopy showed esophagitis Colonoscopy showed colonic dysmotility, internal hemorrhoids and cecal polyp that was removed with cold biopsy forceps GI recommend trial of mesial in, avoid straining it is to, Epsom salts and Sitz bath, under sole suppository or cream and repeat colonoscopy in 5-7 years due to polyp or earlier if clinically indicated, will recommend high-fiber diet. Will place patient on mesalamine 500 mg t.i.d., continue Bentyl as needed Leucocytosis--related to above or reactive noted to have chronic intermittent leukocytosis. Repeat CBC at a.m. Acute lactic acidosis, likely related to above, came down with IVF and was not related to sepsis. Type 2 Diabetes Mellitus, continue Lantus and pre meal insulin , hemoglobin A1c 6.4 continue diabetic diet, Can resume Trulicity as outpatient, will place back on Lantus home dose Hypokalemia, repleted , follow lab. Hypothyroidism,continue levothyroxine. Obesity class II Encourage weight loss, recommended low-calorie diabetic diet and exercise Moderate Persistent Asthma without acute exacerbation continue home inhalers Chronic fluid overload--continue Bumex change dose to once daily . MARY--CPAP at night , oxygenation stable 95% on room air recommend weight loss patient need continued inpatient hospitalization due to persistent abdominal pain, underwent upper and lower endoscopy this afternoon need to placed back on diet. Quality Stroke Does the patient have a stroke diagnosis?: No VTE Prior VTE?: No VTE Risk Level:: Medical - moderate - high VTE Device Contraindication: N/A - Device Ordered VTE Drug Contraindication: N/A - Med Ordered
[2023-09-16 16:18] LABS: Glucose, Whole Blood 114 mg/dL (60-115)
[2023-09-16] MEDS: ondansetron HCL 4 MG/2 ML VIAL IVPUSH (17:25)
--- NOTE | 2023-09-16 18:26 | PC.NURSE ---
Pt education given about changing her diet, staying away from fried food, making better health decisions, weight management, exercise, pt states understanding.
[2023-09-16 19:59] LABS: Glucose, Whole Blood 151 mg/dL (60-115)
[2023-09-16] MEDS: Atorvastatin Calcium 10 MG TABLET PO (21:26)
[2023-09-16] MEDS: Mesalamine 400 MG CAP.DRTAB. 800 MG PO (21:27)
[2023-09-16] MEDS: Insulin Lispro 100 UNIT/ML 3 ML VIAL SUBCUT (21:28)
[2023-09-16] MEDS: hydrOXYzine HCL 50 MG TABLET PO (21:28)
[2023-09-16] MEDS: Insulin Glargine,Hum.rec.anlog 100 UNIT/ML 10 ML VIAL 12 UNIT SUBCUT (21:28)
[2023-09-16] MEDS: Melatonin 3 MG TABLET 6 MG PO (21:29)
[2023-09-16] MEDS: Doxepin HCl 25 MG CAPSULE PO (21:30)
[2023-09-16] MEDS: Dicyclomine HCl 10 MG CAPSULE 20 MG PO (21:30)
[2023-09-17] MEDS: vancomycin HCL 125 MG CAPSULE PO ×3 (00:22→11:44)
[2023-09-17] MEDS: Acetaminophen 325 MG TABLET 650 MG PO ×2 (00:22→05:56)
[2023-09-17 03:04] VITALS: BP 112/62; PULSE 94; RESP 19; TEMP 36.1; O2SAT 96
[2023-09-17] MEDS: Enoxaparin Sodium 40 MG/0.4 ML SYRINGE SUBCUT (05:49)
[2023-09-17] MEDS: Levothyroxine Sodium 112 MCG TABLET PO (05:49)
[2023-09-17 06:36] LABS: Anion Gap 16 (12-20); Blood Urea Nitrogen 14 mg/dL (9-16); Calcium 9.2 mg/dL (8.4-10.2); Carbon Dioxide 33 mmol/L (22-29); Chloride 94 mmol/L (96-108); Creatinine Clr Calc Pharmacy 94.6; Estimated Glomerular Filt Rate > 60; Glucose Random 112 mg/dL (60-115); Potassium 2.9 mmol/L (3.3-5.1); Sodium 140 mmol/L (135-145)
[2023-09-17 06:44] LABS: Hematocrit 40.2 % (37.0-47.0); Hemoglobin 12.2 g/dl (12.0-16.0); Mean Corpuscular HGB Conc 30.3 g/dl (31.0-35.0); Mean Corpuscular Hemoglobin 22.2 pg (27.0-33.0); Mean Corpuscular Volume 73.1 fL (80.0-98.0); Mean Platelet Volume 10.5 fL (9.4-12.3); Platelet Count 352 X10*3/uL (160-400); Red Cell Distribution Width 18.9 % (11.0-16.0); White Blood Count 14.8 X10*3/uL (4.8-10.8)
[2023-09-17 07:50] VITALS: BP 119/62; PULSE 85; RESP 16; TEMP 35.9; O2SAT 95
[2023-09-17 07:51] LABS: Glucose, Whole Blood 129 mg/dL (60-115)
[2023-09-17] MEDS: Tiotropium Bromide 2.5 mcg 1 PUFF/2.5 MCG MIST.INHAL 2 PUFF INHALE (08:19)
[2023-09-17 08:20] VITALS: PULSE 85; RESP 16; O2SAT 94
[2023-09-17] MEDS: Potassium Chloride ER 20 MEQ TAB.ER.PRT 60 MEQ PO (08:27)
[2023-09-17] MEDS: amLODIPine Besylate 10 MG TABLET PO (08:28)
[2023-09-17] MEDS: Mesalamine 400 MG CAP.DRTAB. 800 MG PO (08:28)
[2023-09-17] MEDS: 0.9 % Sodium Chloride Flush 3 ML SYRINGE IVFLUSH (08:28)
[2023-09-17] MEDS: Dicyclomine HCl 10 MG CAPSULE 20 MG PO ×2 (08:30→11:47)
[2023-09-17 11:31] VITALS: BP 102/60; PULSE 85; RESP 18; TEMP 36.1; O2SAT 93
--- NOTE | 2023-09-17 11:33 | HO.POSTANES ---
Post Anesthesia Evaluation Post Anesthesia Evaluation Date of Service: 09/17/23 Vital Signs: Vital Signs Temp Pulse Resp BP Pulse Ox O2 Del Method 09/17/23 11:31 97.0 F 85 18 102/60 93 Room Air 09/17/23 08:20 85 16 09/17/23 07:50 96.6 F L 85 16 119/62 95 Room Air 09/17/23 03:04 97 F 94 19 112/62 96 Room Air Anesthesia: General Endotracheal-GETA Mental Status: Awake Pain Control: Satisfactory Nausea/Vomiting: None Hydration: Adequate Anesthesia-Related Issues: No Anes. Related Issues
[2023-09-17 11:34] LABS: Glucose, Whole Blood 176 mg/dL (60-115)
[2023-09-17] MEDS: Insulin Lispro 100 UNIT/ML 3 ML VIAL SUBCUT (11:44)
[2023-09-17 12:24] LABS: Anion Gap 9 (12-20); Blood Urea Nitrogen 13 mg/dL (9-16); Calcium 9.1 mg/dL (8.4-10.2); Carbon Dioxide 36 mmol/L (22-29); Chloride 96 mmol/L (96-108); Creatinine Clr Calc Pharmacy 94.6; Estimated Glomerular Filt Rate > 60; Glucose Random 140 mg/dL (60-115); Potassium 3.2 mmol/L (3.3-5.1); Sodium 138 mmol/L (135-145)
--- NOTE | 2023-09-17 13:02 | PM.DS ---
DS: Providers Provider Date of Service: 09/17/23 Date of admission: 09/11/23 06:56 Primary care physician: Jenny Bell MD Consults: 09/11/23 07:43 Consult to General Surgery Routine Consulting Provider[place] [facility] Reason for consultation: RLQ abdominal pain ddx acute mesenteric ischemia Has provider been notified: No 09/11/23 13:29 Consult to Gastroenterology Routine Consulting Provider: Bunny Ballard Reason for consultation: Abomdinal pain ? colitis Has provider been notified: Yes DS: Diagnosis Discharge Diagnosis (1) Hypokalemia: Status: Acute (2) RLQ abdominal pain: Status: Acute (3) Type 2 diabetes mellitus: Status: Acute DS: Summary Hospital Course Hospital Course: Date of Service: 09/11/23 Attending physician on admission: Tomy Alonzo Chief Complaint: RLQ abdominal pain x3 days 58-year-old female with pertinent history of essential hypertension, mixed hyperlipidemia, mood disorder, insulin-dependent diabetes mellitus, hypothyroidism, gastroesophageal reflux disease, congestive heart failure with preserved ejection fraction (HFpEF), obstructive sleep apnea on CPAP, asthma who presents to the emergency department for evaluation of abdominal pain. She was recently admitted (08/25-08/27) for the same symptoms and discharged home on oral antibiotics which she states she took and felt fine for a short while before the symptoms recurred. She rates the pain at a 10/10 at its worst and reports associated multiple episodes of non-projectile emesis and diarrhea since today with also intermittent episode of chills with no fevers. Initial work up done in the emergency room revealed a significant leucocytosis of 20.9 k/mm3 elevated serum lactate at 4.3. His vital signs were initially fairly stable with no tachycardia or tachypnea. An abdominal CT scan done did not reveal any intra-abdominal pathology to explain her symptoms. She received empiric Levaquin and Zosyn following which admission was requested for continued care. When I got to see her, she was still reporting pain despite having received a dose of IV Hydromorphone. 58-year-old female with pertinent history of essential hypertension, mixed hyperlipidemia, mood disorder, insulin-dependent diabetes mellitus, hypothyroidism, gastroesophageal reflux disease, congestive heart failure with preserved ejection fraction, obstructive sleep apnea on CPAP, asthma here with RLQ abdominal pain + leukocytosis. persistent abdominal pain of several months duration, initial CT without contrast showed no acute finding, due to persistent abdominal pain repeat CT with PO and IV contrast 09/12 showed no acute finding,initially treated with Zosyn but was discontinued due to itching with history of penicillin allergy, later treated with Levaquin + Flagyl 09/12 for possible colitis, WBC normalized diet was gradually advanced,Surgery (Dr. Winkler) and GI () saw the patient, no surgical intervention was required due to persistent abdominal pain patient underwent upper endoscopy and colonoscopy by Dr. Baker, upper endoscopy showed esophagitis, colonoscopy showed internal hemorrhoids, colonic dysmotility and cecal polyp that was removed patient is instructed to follow high-fiber diet avoid constipation and has been started on mesalamine 800 mg t.i.d. as per GI recommendation, she has recommended close outpatient follow-up with Dr. Ballard. Leucocytosis--related to above or reactive, noted to have chronic intermittent leukocytosis. Acute lactic acidosis, likely related to above, came down with IVF and was not related to sepsis. Type 2 Diabetes Mellitus, continue Lantus Trulicity and pre meal insulin , hemoglobin A1c 6.4 continue diabetic diet, recommend to discontinue metformin due to abdominal pain. Hypokalemia, repleted , recommend BMP in next 3 days question hypokalemia related to diuretics versus GI loss. Hypothyroidism,continue levothyroxine. Obesity class II Encourage weight loss, recommended low-calorie diabetic diet and exercise Moderate Persistent Asthma without acute exacerbation continue home inhalers Chronic fluid overload-- noted to have contraction alkalosis and hypokalemia recommend to stop Bumex and resume low-dose 1 mg if noted to have recurrence of leg edema and follow-up with Dr. Hernandez on outpatient basis. MARY--CPAP at night , oxygenation stable 95% on room air recommend weight loss. Time Attestation Discharge coordination time: Greater than 30 minutes Quality: Safe Use of Opioids Does Pt have an Active Cancer Diagnosis on the Problem List?: No Quality: Stroke Does the patient have a stroke diagnosis?: No Physical Exam Vital Signs: Vital Signs: Last Vital Signs Temp 97.0 F 09/17/23 11:31 Pulse 85 09/17/23 11:31 Resp 18 09/17/23 11:31 BP 102/60 09/17/23 11:31 Pulse Ox 93 09/17/23 11:31 O2 Del Method Room Air 09/17/23 11:31 O2 Flow Rate 6 09/16/23 15:08 BMI result Body Mass Index 39.8 Const: Other: General: A x O X 3, no acute distress neck no JVD Resp: CTA bilateral CVS: S1,S2,RRR GI: +BS, persistent abdominal discomfort with superficial touch , soft to palpation, no guarding, no rigidity, no distention Skin: No rash extremities no pitting edema Neuro: motor grossly intact Psych: appropriate affect DS: Data Data Completed and Pending Completed studies during hospitalization [Text1]: Procedures Assistance with Respiratory Ventilation, Less than 24 Consecutive Hours, Continuous Positive Airway Pressure (06/30/23) Pending studies at discharge: Pending at discharge 09/16/23 14:41 Surgical [PTH] Routine 09/17/23 11:04 Surgical Path [Surgical] [PTH] Routine Labs on day of discharge: Laboratory Results - last 24 hr 09/16/23 09/16/23 09/16/23 14:10 15:48 19:19 WBC RBC Hgb Hct MCV MCH MCHC RDW Plt Count MPV Absolute Nucleated RBC Nucleated RBC % (auto) Sodium Potassium Chloride Carbon Dioxide Anion Gap BUN Creatinine Estim Creat Clear Calc Estimated GFR POC Glucose 131 H 114 151 H Random Glucose Calcium 09/17/23 09/17/23 09/17/23 06:10 07:47 11:23 WBC 14.8 H RBC 5.50 Hgb 12.2 Hct 40.2 MCV 73.1 L MCH 22.2 L MCHC 30.3 L RDW 18.9 H Plt Count 352 MPV 10.5 Absolute Nucleated RBC 0.000 Nucleated RBC % (auto) 0.0 Sodium 140 Potassium 2.9 L Chloride 94 L Carbon Dioxide 33 H Anion Gap 16 BUN 14 Creatinine 0.86 Estim Creat Clear Calc 94.6 Estimated GFR > 60 POC Glucose 129 H 176 H Random Glucose 112 Calcium 9.2 09/17/23 12:02 WBC RBC Hgb Hct MCV MCH MCHC RDW Plt Count MPV Absolute Nucleated RBC Nucleated RBC % (auto) Sodium 138 Potassium 3.2 L Chloride 96 Carbon Dioxide 36 H Anion Gap 9 L BUN 13 Creatinine 0.86 Estim Creat Clear Calc 94.6 Estimated GFR > 60 POC Glucose Random Glucose 140 H Calcium 9.1 Discharge Plan Discharge Anticipated Discharge Date/Time: 09/14/23 11:02 Patient Disposition: Home, Self-Care Discharge Diagnosis: abdominal pain leukocytosis obesity Referrals: Jenny Mendosa MD [Primary Care Provider] - 1 Week Discharge Medications: New dicyclomine 10 mg Capsule 20 mg PO QIDACHS PRN (Reason: abdominal pain) Qty: 120 0RF mesalamine [Delzicol] 400 mg Capsule (With Del Rel Tablets) 800 mg PO TID Qty: 180 0RF vancomycin 125 mg capsule 125 mg PO QID Qty: 20 0RF Continued albuterol sulfate [Ventolin HFA] 90 mcg/actuation HFA aerosol inhaler 1 inh inhalation Q4H PRN (Reason: Shortness Of Breath Or Wheezing) Qty: 8.5 3RF gabapentin 100 mg capsule 100 mg PO TID 30 Days Qty: 90 0RF insulin glargine [Lantus U-100 Insulin] 100 unit/mL solution 15 unit subcut BEDTIME 90 Days Qty: 13.5 1RF Trulicity 0.75 mg/0.5 mL pen injector 0.75 mg subcut QWEEK Qty: 2 5RF clonidine HCl 0.1 mg tablet 0.1 mg PO TID PRN (Reason: Anxiety) atorvastatin 10 mg tablet 10 mg PO BEDTIME doxepin 25 mg capsule 25 - 50 mg PO BEDTIME PRN (Reason: insomnia) hydroxyzine HCl 50 mg tablet 50 mg PO TID PRN (Reason: itch) trazodone 150 mg tablet 150 mg PO BEDTIME PRN (Reason: insomnia) insulin lispro 100 unit/mL solution 5 unit subcut TID levothyroxine 112 mcg tablet 112 mcg PO DAILY@0600 rizatriptan 5 mg tablet 5 mg PO ONCE PRN (Reason: Migraine Headache) Rx Instructions: may repeat in 2 hours acetaminophen 650 mg tablet extended release 650 mg PO Q8H PRN (Reason: arthritis) amlodipine 10 mg tablet 10 mg PO DAILY Incruse Ellipta 62.5 mcg/actuation blister with device 1 inh INHALATION DAILY lorazepam 1 mg tablet 1 mg PO DAILY PRN (Reason: ANXIETY) Discontinued metformin 500 mg tablet 500 mg PO BID bumetanide 2 mg tablet 2 mg PO BID metoclopramide HCl 10 mg tablet 10 mg PO QID Discharge Orders: Discharge Order (Routine); Ordered 09/17/23 Ordered By: Whitney Atwood Diet: Diabetic diet Activity on Discharge: As tolerated Stand Alone Forms: Patient Portal Discharge page Print Language: Kyrgyz Other Ambulatory Orders: Basic Metabolic Panel (Routine) Timeframe: [id number] Facility: [facility] - Location: Laboratory Ordered By: Whitney Atwood Care Plan Goals: ch.Abdominal pain, wbc fluctuating, C diff positive likely carrier due to leukocytosis take by mouth vancomycin for 5 more days upper endoscopy showed esophagitis colonoscopy showed colonic dysmotility, internal hemorrhoids and cecal polyp that was removed recommend high-fiber diet, avoid straining at stool take mesalamine as instructed stop Bumex if noted to have lower extremity swelling use Bumex 1 mg daily only ,follow-up with PCP Stop metformin some time it can cause abdominal pain follow low-calorie diabetic diet, recommend wt. loss do left shoulder exercises for mobility check lab on 09/20 due to low potassium Health Concerns: diabetes mellitus, hypertension, obesity Plan of Treatment: follow-up with primary care physician and Dr. Ballard call for appointment Assessment: as above Patient Instructions: Mesalamine (By mouth), Colorectal Polyps (DC), Esophagitis (DC)
[2023-09-17] MEDS: Potassium Chloride ER 20 MEQ TAB.ER.PRT PO (13:18)
--- NOTE | 2023-09-17 13:31 | MHC.CM.PN ---
PT WILL DC HOME TODAY WITH NO NEW SERVICES PT TO ARRANGE TRANSPORT
== END 2023-09-17 13:38 | disposition home or self-care (01) | DRG 248 ==
LOC: HO.ED 09-11 05:34 → HO.EDOVER 09-11 07:06 → HO.S3 09-13 17:30
PROVIDERS: Emergency Medicine; Internal Medicine; Internal Medicine Gastroenterology; Surgery; Admitting Provider Internal Medicine; Emergency Provider Emergency Medicine; PCP Internal Medicine; Visit Provider Hospitalist
PROC: 0DJ08ZZ Inspection of Upper Intestinal Tract, Via Natural or Artificial Opening Endoscopic (ICD-10-PCS; principal; 2023-09-16 15:20)
DX: A04.72 Enterocolitis due to Clostridium difficile, not specified as recurrent (principal); E87.21 Acute metabolic acidosis; E03.9 Hypothyroidism, unspecified; J45.40 Moderate persistent asthma, uncomplicated; G43.909 Migraine, unspecified, not intractable, without status migrainosus; K64.0 First degree hemorrhoids; E87.6 Hypokalemia; K59.9 Functional intestinal disorder, unspecified; K20.90 Esophagitis, unspecified without bleeding; D12.0 Benign neoplasm of cecum; G47.33 Obstructive sleep apnea (adult) (pediatric); E66.8 Other obesity; Z68.39 Body mass index [BMI] 39.0-39.9, adult; E11.9 Type 2 diabetes mellitus without complications; E78.2 Mixed hyperlipidemia; Z20.822 Contact with and (suspected) exposure to COVID-19; Z79.4 Long term (current) use of insulin; Z91.040 Latex allergy status; Z79.890 Hormone replacement therapy; Z79.899 Other long term (current) drug therapy
CPT/HCPCS: 0241U; 36415; 74174; 74177; 76830; 76856; 80048; 80053; 80307; 81001; 82803; 82947; 83036; 83605; 83690; 83735; 84100; 84443; 85025; 85027; 85379; 86140; 87040; 87086; 87147; 87324; 87493; 87507; 88305; 93005; 94640; 94660; 99285; C9113; J0131; J0330; J0737; J1170; J1200; J1650; J1790; J1836; J1956; J2060; J2270; J2405; J2543; J2550; J2704; J2765; J3475; J3480; J7120; Q9967

== ENCOUNTER → 2023-09-10 22:38 | Outpatient (BNV) | payer OTHER, SELFPAY | PROVIDERS: Admitting Provider Internal Medicine; Emergency Provider Emergency Medicine; Visit Provider Internal Medicine | DX: I49.9 Cardiac arrhythmia, unspecified (principal); I45.81 Long QT syndrome; R94.31 Abnormal electrocardiogram [ECG] [EKG] | CPT/HCPCS: 93010 ==

== ENCOUNTER → 2023-09-11 06:56 | Outpatient (BNV) | payer OTHER, SELFPAY | PROVIDERS: Admitting Provider Internal Medicine; Emergency Provider Emergency Medicine; PCP Internal Medicine; Visit Provider Internal Medicine Gastroenterology | DX: R10.31 Right lower quadrant pain (principal); R79.82 Elevated C-reactive protein (CRP); K20.90 Esophagitis, unspecified without bleeding; D12.0 Benign neoplasm of cecum; K64.0 First degree hemorrhoids; K59.89 Other specified functional intestinal disorders | CPT/HCPCS: 43239; 45380; 99232 ==

== ENCOUNTER → 2023-09-11 06:56 | Outpatient (BNV) | payer OTHER, SELFPAY | PROVIDERS: Admitting Provider Internal Medicine; Emergency Provider Emergency Medicine; Visit Provider Internal Medicine | DX: R10.31 Right lower quadrant pain (principal); D72.823 Leukemoid reaction; R79.89 Other specified abnormal findings of blood chemistry; E11.8 Type 2 diabetes mellitus with unspecified complications; Z79.4 Long term (current) use of insulin | CPT/HCPCS: 99223; 99232; 99233; 99239 ==

== ENCOUNTER → 2023-09-11 06:56 | Outpatient (BNV) | payer OTHER, SELFPAY | PROVIDERS: Admitting Provider Internal Medicine; Emergency Provider Emergency Medicine; Visit Provider Surgery | DX: E11.9 Type 2 diabetes mellitus without complications (principal); Z79.4 Long term (current) use of insulin; R10.31 Right lower quadrant pain; R79.89 Other specified abnormal findings of blood chemistry; E21.3 Hyperparathyroidism, unspecified; K22.10 Ulcer of esophagus without bleeding | CPT/HCPCS: 99222; 99232 ==

== ENCOUNTER 2023-09-21 22:58 | Inpatient (IN) | payer OTHER, SELFPAY ==
--- NOTE | ~2023-09-21 | US_ITS ---
EXAMINATION: US PELVIS CLINICAL INFORMATION: Right pelvic pain COMPARISON: None available. TECHNIQUE: Ultrasound of the pelvis is performed using both transabdominal and transvaginal transducers along with Doppler. Transvaginal imaging is performed due to inadequate visualization transabdominally. FINDINGS: The uterus has been surgically removed. There is minimal free fluid in the cervix Adnexa: Both ovaries are not visualized. There is no free fluid in the cul-de-sac US/US pelvic and transvaginal IMPRESSION: Uterus has been surgically removed. Small amount of free fluid in the cervical canal. Ovaries are not seen.
--- NOTE | ~2023-09-21 | CT_ITS ---
EXAMINATION: CT ANGIOGRAM ABDOMEN AND PELVIS CLINICAL INFORMATION: Intractable abdominal pain, nausea and vomiting with lactic acidosis. COMPARISON: None available. TECHNIQUE: Multiple axial images were obtained through the abdomen and pelvis following the administration of 100 mL of Omnipaque 350 intravenous contrast. Images were reviewed on a dedicated 3-D workstation. This CT examination was performed using dose optimization techniques as appropriate, variously including the following: *Automated exposure control *Adjustment of mA and/or kV according to patient size (this includes techniques or standardized protocols for targeted exams where dose is matched to indication/reason for exam; i.e. extremities or head) *Use of iterative reconstruction technique DLP: 872 mGy-cm FINDINGS: Vascular: The abdominal aorta is of normal caliber. There is normal bifurcation into common iliac which in turn bifurcates into bilateral normal external and internal iliac arteries. Origins of celiac, superior mesenteric and inferior mesenteric arteries are widely patent. There are 2 right renal arteries and solitary left renal artery on the left which are widely patent. Nonvascular: Lung bases: There is minimal right basal atelectasis.. Heart size is normal. There is elevated right hemidiaphragm. Liver, ducts and gallbladder: The liver is normal size, contour and density. No focal lesion or intrahepatic ductal dilatation seen. Gallbladder has been surgically removed. No perihepatic ascites. Spleen: Unremarkable. Pancreas: Unremarkable. Adrenal glands: Unremarkable. Kidneys and ureters: There is normal symmetry of bilateral kidney nephrograms. There is no radiopaque renal calculi, enhancing renal mass or hydronephrosis. GI tract: There is moderate scattered stool in the colon without any distention. The small bowel loops are normal caliber. Appendix is normal caliber. Abdominal wall: Unremarkable. Pelvis: The bladder is nondistended the uterus is midline. No free fluid seen. Osseous structures: There is mild degenerative vacuum disc phenomena L5-S1 disc level. No aggressive lytic or sclerotic process seen. CT/CT angio abdomen pelvis IMPRESSION: Unremarkable abdominal aorta and its branches. No evidence of a new is no dissection. Mild constipation without obstruction.. Normal appendix. Minimal right basilar atelectasis. Fleischner guidelines were followed.
[2023-09-21 23:25] VITALS: BP 186/104; PULSE 107; RESP 20; TEMP 36.6; O2SAT 95; BMI 39.2
[2023-09-22] VITALS (12 sets, daily range): BP systolic 118–205; BP diastolic 58–98; PULSE 91–114; RESP 16–20; TEMP 36.1–38.2; O2SAT 96–99; BMI 39.1
--- NOTE | 2023-09-22 00:34 | ECG_ITS ---
Test Reason : QTC Blood Pressure : / mmHG Vent. Rate : 090 BPM Atrial Rate : 090 BPM P-R Int : 122 ms QRS Dur : 072 ms QT Int : 360 ms P-R-T Axes : -08 011 023 degrees QTc Int : 440 ms Normal sinus rhythm Normal ECG When compared with ECG of 10-SEP-2023 22:38, No significant change was found Referred By: Marilynn Robles Electronically Signed By:MARISA SCHAFER MD
--- NOTE | 2023-09-22 00:36 | ED_ITS ---
HPI - Nausea/Vomiting/Diarrhea General Chief complaint: Abdominal Pain Stated complaint: Vomiting Time Seen by Provider: 09/22/23 00:33 Source: patient and old records reviewed Mode of arrival: ambulatory Limitations: no limitations History of Present Illness HPI Narrative: 58 yo female with PMH of HTN, HLD, mood disorder, IDDM, hypothyroidism, GERD, CHF (HFpEF), MARY on CPAP, asthma just admitted here 09/11 to 09/17 for abdominal pain, fevers and intractable n/v saw GI and surgery had CT scans x 2 no acute findings was treated initially with abx but held. Dr. Ballard did EGD which showed esophagitis. She comes back today with c/o abdominal pain, diarrhea, vomiting for 10 hours now her muscles are aching. She notes it started about 1 hour after eating hard clams which she boiled they were not fried. She states she has been eating okay and taking all over her medications - no one else got sick at home. MD elicited complaint: nausea, vomiting, diarrhea and abdominal pain Pertinent past history: other Onset (ago): hour(s) (12) Description of vomiting: watery and bilious Description of diarrhea: watery Associated nausea: Yes Associated abdominal pain: Yes Location of pain: diffuse Radiation: diffuse Pain consistency: constant Severity: severe Quality: aching and constant Exacerbating factors: eating Relieving factors: none Context: possible food poisoning Associated symptoms: loss of appetite, malaise and nausea/vomiting Related Data Home Medications Medication Instructions Recorded Confirmed atorvastatin 10 mg tablet 10 mg PO BEDTIME 08/25/23 09/11/23 clonidine HCl 0.1 mg tablet 0.1 mg PO TID PRN Anxiety 08/25/23 09/11/23 doxepin 25 mg capsule 25 - 50 mg PO BEDTIME PRN insomnia 08/25/23 09/11/23 hydroxyzine HCl 50 mg tablet 50 mg PO TID PRN itch 08/25/23 09/11/23 insulin lispro 100 unit/mL 5 unit subcut TID 08/25/23 09/11/23 subcutaneous solution levothyroxine 112 mcg tablet 112 mcg PO DAILY@0600 08/25/23 09/11/23 rizatriptan 5 mg tablet 5 mg PO ONCE PRN Migraine Headache 08/25/23 09/11/23 trazodone 150 mg tablet 150 mg PO BEDTIME PRN insomnia 08/25/23 09/11/23 acetaminophen 650 mg 650 mg PO Q8H PRN arthritis 09/11/23 09/11/23 tablet,extended release amlodipine 10 mg tablet 10 mg PO DAILY 09/11/23 09/11/23 lorazepam 1 mg tablet 1 mg PO DAILY PRN ANXIETY 09/11/23 09/11/23 umeclidinium 62.5 mcg/actuation 1 inh inhalation DAILY 09/11/23 09/11/23 blister powder for inhalation (Incruse Ellipta) Previous Rx's Medication Instructions Recorded albuterol sulfate 90 mcg/actuation 1 inh inhalation Q4H PRN Shortness 09/03/23 aerosol inhaler (Ventolin HFA) Of Breath Or Wheezing #8.5 grams gabapentin 100 mg capsule 100 mg PO TID 30 days #90 caps 09/12/23 dulaglutide 0.75 mg/0.5 mL 0.75 mg (0.5 mL) subcut QWEEK #2 mL 09/14/23 subcutaneous pen injector (Trulicity) insulin glargine 100 unit/mL 15 unit (0.15 mL) subcut BEDTIME 09/14/23 subcutaneous solution (Lantus 90 days #13.5 mL U-100 Insulin) mesalamine 400 mg capsule (with 800 mg (2 x 400 mg) PO TID #180 ea 09/17/23 delayed release tablets inside) (Delzicol) vancomycin 125 mg capsule 125 mg PO QID #20 caps 09/17/23 dicyclomine 10 mg capsule 10 mg PO BID PRN for cramps #180 09/21/23 caps Allergies Allergy/AdvReac Type Severity Reaction Status Date / Time Penicillins Allergy Severe swelling Verified 09/21/23 23:31 adhesive tape [ADHESIVE TAPE] Allergy Intermediate RASH Verified 09/21/23 23:31 amoxicillin [AMOXICILLIN] Allergy Intermediate RASH,SWELLI Verified 09/21/23 23:31 NG ibuprofen [From Motrin] Allergy Intermediate Hypertensio Verified 09/21/23 23:31 n latex Allergy Intermediate Rash Verified 09/21/23 23:31 Review of Systems 2 Review of Systems: Constitutional : No Weight loss, No Fever, No Chills ENT/Mouth : No sore throat, No Rhinorrhea Eyes: No Swelling, No Redness Cardiovascular : No Chest Pain, No SOB, NoEdema Respiratory : No Cough, No Sputum, No Wheezing Gastrointestinal : Positive Nausea, Positive Vomiting, positive Diarrhea, positive abdominal Pain, No Hematochezia, No Melena Genitourinary : No Dysuria, No Urinary Frequency, No Hematuria, No Urgency Musculoskeletal : No joint pain, No Myalgias, No Joint Swelling Skin : No Skin Lesions, No rash Neuro : No Weakness, No Numbness, No Dizziness, No Headache Psych : No Anxiety/Panic, No Depression Heme/Lymph: No Bruising, No Lymphadenopathy Endocrine : No Polyuria, No Polydipsia All other systems reviewed and are negative. Gastrointestinal: Gastrointestinal: Reports nausea PMFSH Past Medical History Source: old records reviewed Medical History Essential hypertension Acute diarrhea Pre-op examination Cervical radiculopathy Rash of foot [place] albicans infection Cervicalgia Left shoulder pain Environmental allergies Hospital discharge follow-up MARY on CPAP Elevated red blood cell count Screening for hyperlipidemia Chronic pain syndrome Lumbar pain Encounter for annual routine gynecological examination Multiple air fluid levels of small intestine determined by X-ray Abdominal bloating Hypothyroid Sleep apnea Abdominal cramping Edema Anxiety with depression Chronic pain (Unknown) Gastroparesis Left knee pain Hypothyroidism Bilateral shoulder pain Hyperlipidemia LDL goal <70 Degeneration, intervertebral disc, cervical Spondylosis of cervical spine at multiple levels without myelopathy Sleep apnea Renal calculi Incontinence Goiter Disc degeneration, lumbar Spondylosis of lumbar region without myelopathy or radiculopathy Arthropathy of facet joint Insomnia LUDY (generalized anxiety disorder) Moderately severe recurrent major depression Diabetes mellitus Chronic pain syndrome Morbid (severe) obesity due to excess calories Fibromyalgia Small bowel motility disorder Chronic idiopathic constipation Asthma Surgical History History of knee replacement procedure of right knee History of hernia surgery Hx of colonoscopy History of esophagogastroduodenoscopy (EGD) History of cholecystectomy Delivery by section History of hysterectomy Family History Family History Father Past heart attack Anxiety Mother MOF (multiple organ failure) Brother HIV (human immunodeficiency virus infection) Sister Ovarian cancer Lupus Bone cancer Uterine cancer Tumor Daughter Guillain-[place] Sister Lupus History of open heart surgery Family/Other Depression FH: mental illness Maternal Aunt Breast cancer Maternal Aunt Tumor Social History Social History Household Members: None Household Members Other:: Housing: Apartment Are you a primary healthcare translator to a significant other at home: No Do you presently have visiting nurse or other home services: Yes ([employer]) Alcohol intake: never Patient Tobacco Use Status: Never used Tobacco Smoked in Last 30 Days: No e-Cigarette/Vaping Use: Never Used Second Hand Smoke Exposure: Yes Use of substances other than those prescribed or required for medical reasons: No Advance Directives: Yes Advance Directives on File: Yes Advance Directives Date on File: 12/08/21 Nutrition Risks: Acute nausea or vomiting x1 week Patient : No service: No Current occupational status: unemployed and disabled Cognitive needs: No Hearing needs: No Vision needs: No Physical Exam 2 Vital Signs: Vital Signs: Last Vital Signs Temp 99.6 F 09/22/23 05:32 Pulse 109 H 09/22/23 04:34 Resp 18 09/22/23 04:34 BP 187/78 H 09/22/23 04:34 Pulse Ox 98 09/22/23 04:34 O2 Del Method Room Air 09/22/23 04:34 BMI result Body Mass Index 39.2 Appearance: Alert. Oriented X3. Mild acute distress. Active vomiting Eyes: Pupils equal, round and reactive to light. ENT: Pharynx normal. Neck: Normal inspection. Neck supple. CVS: Normal heart rate and rhythm. Pulses normal. Respiratory: No respiratory distress. Breath sounds normal. Abdomen: Soft and moderate diffuse ttp no rebound Skin: Skin warm and dry. Normal skin color. Normal skin turgor. Extremities: No lower extremity edema. No calf ttp Neuro: Oriented X 3. No motor deficit. No sensory deficit. Course Course Course Narrative: WBC is chronic and not due to infection or severe sepsis likely acute phase from vomiting tachycardia due to vomiting and not infection or severe sepsis Reevaluation(s) Reevaluation #1: unable to tolerate PO will admit for intractable n/v Reevaluation #2: fever started after patient was admitted to hospitalist team Medications Administered Generic Name Dose Route Start Last Admin Trade Name Freq PRN Reason Stop Dose Admin Acetaminophen 650 mg 09/22/23 02:30 09/22/23 02:48 Acetaminophen 325 Mg Tablet PO 650 mg Q6H PRN Administration Pain, Mild (Pain Scale 1-3) Levofloxacin 750 mg in 150 mls @ 100 mls/hr 09/22/23 02:45 09/22/23 04:40 Levaquin IV 100 mls/hr 2200 RADHA Administration Metronidazole 500 mg in 100 mls @ 100 mls/hr 09/22/23 02:45 09/22/23 04:29 Flagyl IV Infused 0600,1400,2200 RADHA Infusion Insulin Glargine 12 unit 09/22/23 02:50 09/22/23 03:33 Insulin Glargine,Hum.Rec.Anlog 100 Unit/Ml 10 Ml Vial SUBCUT 12 unit BEDTIME RADHA Administration Ondansetron HCl 4 mg 09/22/23 02:30 09/22/23 03:54 Ondansetron Hcl 4 Mg/2 Ml Vial IVPUSH 4 mg Q8H PRN Administration Nausea and Vomiting Discontinued Medications Generic Name Dose Route Start Last Admin Trade Name Freq PRN Reason Stop Dose Admin Diphenhydramine HCl 25 mg 09/22/23 00:34 09/22/23 00:57 Diphenhydramine Hcl 50 Mg/Ml Vial IVPUSH 09/22/23 00:35 25 mg ONCE ONE Administration Droperidol 1.25 mg 09/22/23 00:34 09/22/23 00:57 Droperidol 5 Mg/2 Ml Vial IVPUSH 09/22/23 00:35 1.25 mg ONCE ONE Administration Sodium Chloride 500 mls @ 500 mls/hr 09/22/23 00:45 09/22/23 02:17 Ns IV 09/22/23 01:44 Infused .Q1H RADHA Infusion Sodium Chloride 1,000 mls @ 75 mls/hr 09/22/23 01:45 09/22/23 03:50 Ns IVCONT Infused .[id number] RADHA Infusion Sodium Chloride 1,000 mls @ 500 mls/hr 09/22/23 03:30 09/22/23 06:19 Ns IV 09/22/23 05:29 Infused .Q2H RADHA Infusion Acetaminophen 1,000 mg in 100 mls @ 400 mls/hr 09/22/23 04:03 09/22/23 04:41 Ofirmev IV 09/22/23 04:17 Infused ONCE ONE Infusion Lorazepam 1 mg 09/22/23 01:31 09/22/23 01:40 Lorazepam 2 Mg/Ml Vial IVPUSH 09/22/23 01:32 1 mg STAT STA Administration Metoclopramide HCl 10 mg 09/22/23 04:03 09/22/23 04:31 Metoclopramide Hcl 10 Mg/2 Ml Vial IVPUSH 09/22/23 04:04 10 mg ONCE ONE Administration Medical Decision Making Medical Decision Making [facility] Narrative: 58 yo female with PMH of HTN, HLD, mood disorder, IDDM, hypothyroidism, GERD, CHF (HFpEF), MARY on CPAP, asthma here with recurrent abdominal pain n/v/d with just full workup states symptoms started after eating clams at this time will need basic labs, IVF, IV anti-emetics, if she cannot tolerate PO will admit. Just had CT scan x 2 with IV and oral contrast will defer imaging at this time Differential Diagnosis Differential Diagnoses: The differential diagnosis associated with the presentation includes intractable n/v, food poisoning Admission/Observation Consideration of admission/observation: Escalation of care including admission/observation considered will admit Consult Healthcare Provider Management of the patient was discussed with: Hospitalist (will admit) Lab Data [facility] Lab Attestation statement: I reviewed the patient's lab results. 09/22/23 03:32 09/22/23 03:32 Labs: Lab Results 09/22/23 09/22/23 09/22/23 Range/Units 00:42 00:46 00:46 WBC 24.5 H (4.8-10.8) X10*3/uL RBC 5.98 H (4.20-5.50) X10*6/uL Hgb 13.3 (12.0-16.0) g/dl Hct 43.3 (37.0-47.0) % MCV 72.4 L (80.0-98.0) fL MCH 22.2 L (27.0-33.0) pg MCHC 30.7 L (31.0-35.0) g/dl RDW 19.9 H (11.0-16.0) % Plt Count 449 H D (160-400) X10*3/uL MPV 9.9 (9.4-12.3) fL Immature Gran % (Auto) 0.8 H (0.0-0.4) % Neut % (Auto) 84.5 H (45-73) % Lymph % (Auto) 8.1 L (20-40) % [place] % (Auto) 5.1 (2-11) % Eos % (Auto) 1.1 (0-4) % Baso % (Auto) 0.4 (0-2) % Lymph # (Auto) 2.0 (1.2-4.9) X10*3/uL [place] # (Auto) 1.3 H (0.1-1.2) X10*3/uL Eos # (Auto) 0.3 (0.0-0.4) X10*3/uL Baso # (Auto) 0.1 (0.0-0.2) X10*3/uL Abs Immat Gran (auto) 0.19 H (0.00-0.03) X10*3/uL Absolute Neuts (auto) 20.7 H (2.0-8.3) x10*3/uL Absolute Nucleated RBC 0.000 (0.0-0.012) X10*3/uL Nucleated RBC % (auto) 0.0 (0.0-0.2) /100WBC Smear Tech's Comments VERIFIED Sodium 142 (135-145) mmol/L Potassium 4.6 D (3.3-5.1) mmol/L Chloride 107 (96-108) mmol/L Carbon Dioxide 24 (22-29) mmol/L Anion Gap 16 (12-20) BUN 15 (9-16) mg/dL Creatinine 0.95 (0.5-1.4) mg/dL Estim Creat Clear Calc 84.8 Estimated GFR > 60 Random Glucose 191 H (60-115) mg/dL Calcium 10.4 H D (8.4-10.2) mg/dL Total Bilirubin 0.5 (0.0-1.0) mg/dL AST 20 (5-31) U/L ALT 21 (0-31) U/L Alkaline Phosphatase 106 (39-117) U/L Total Protein 8.9 H (6.5-8.0) g/dL Albumin 4.3 (3.5-5.0) g/dL Lipase 78 Cancelled (8-78) U/L TSH 2.60 (0.32-4.0) uIU/mL Influenza Type A (PCR) NEGATIVE (Negative) Influenza Type B (PCR) NEGATIVE (Negative) RSV RNA Qual (PCR) NEGATIVE (Negative) SARS-CoV-2 RNA (RT-PCR) NEGATIVE (Negative) Independent Interpretation I performed an independent interpretation of an: EKG Interpretation: Rate: 90 Rhythm: NSR [place]: normal Normal P waves. Normal JOSE RAFAEL. Normal QRS complex. ST T wave : no LELIA, inverted t wave III qTC: normal prior studies: no acute ischemia The study has been interpreted contemporaneously by me. . External Record Review External record reviewed: Inpatient record Discharge Plan Discharge Clinical Impression: Vomiting Qualifiers: Vomiting type: unspecified Nausea presence: with nausea Qualified Code(s): R 11.2 - Nausea with vomiting, unspecified Elevated WBC count Qualifiers: Leukocytosis type: unspecified Qualified Code(s): D72.829 - Elevated white blood cell count, unspecified Patient Disposition: Admitted As Inpatient
[2023-09-22 00:52] LABS: Basophils Absolute Auto 0.1 X10*3/uL (0.0-0.2); Basophils Percent Auto 0.4 % (0-2); Eosinophils Absolute Auto 0.3 X10*3/uL (0.0-0.4); Eosinophils Percent Auto 1.1 % (0-4); Hematocrit 43.3 % (37.0-47.0); Hemoglobin 13.3 g/dl (12.0-16.0); Imm Gran Abs Auto 0.19 X10*3/uL (0.00-0.03); Imm Gran Pct Auto 0.8 % (0.0-0.4); Lymphocytes Percent Auto 8.1 % (20-40); Mean Corpuscular HGB Conc 30.7 g/dl (31.0-35.0); Mean Corpuscular Hemoglobin 22.2 pg (27.0-33.0); Mean Corpuscular Volume 72.4 fL (80.0-98.0); Mean Platelet Volume 9.9 fL (9.4-12.3); Monocytes Absolute Auto 1.3 X10*3/uL (0.1-1.2); Monocytes Percent Auto 5.1 % (2-11); Neutrophils Absolute Auto 20.7 x10*3/uL (2.0-8.3); Neutrophils Percent Auto 84.5 % (45-73); Platelet Count 449 X10*3/uL (160-400); Red Blood Count 5.98 X10*6/uL (4.20-5.50); Red Cell Distribution Width 19.9 % (11.0-16.0); SCAN SMEAR FLAG 1; White Blood Count 24.5 X10*3/uL (4.8-10.8)
[2023-09-22 00:53] LABS: MANUAL DIFF FLAG SCAN
[2023-09-22] MEDS: droPERidol 5 MG/2 ML VIAL 1.25 MG IVPUSH (00:57)
[2023-09-22] MEDS: diphenhydrAMINE HCL 50 MG/ML VIAL 25 MG IVPUSH (00:57)
[2023-09-22] MEDS: 0.9 % Sodium Chloride 500 ML IV (00:58)
[2023-09-22 01:06] LABS: Alanine Aminotransferase 21 U/L (0-31); Albumin Level 4.3 g/dL (3.5-5.0); Alkaline Phosphatase 106 U/L (39-117); Anion Gap 16 (12-20); Aspartate Amino Transferase 20 U/L (5-31); Bilirubin Total 0.5 mg/dL (0.0-1.0); Blood Urea Nitrogen 15 mg/dL (9-16); Calcium 10.4 mg/dL (8.4-10.2); Carbon Dioxide 24 mmol/L (22-29); Chloride 107 mmol/L (96-108); Creatinine Clr Calc Pharmacy 84.8; Estimated Glomerular Filt Rate > 60; Glucose Random 191 mg/dL (60-115); Lipase 78 U/L (8-78); Potassium 4.6 mmol/L (3.3-5.1); Sodium 142 mmol/L (135-145); Total Protein 8.9 g/dL (6.5-8.0)
--- NOTE | 2023-09-22 01:25 | PC.NURSE ---
pt medicated per DEC, pt now resting comfortably in bed with eyes closed, breathing even and unlabored, no longer vomiting
[2023-09-22 01:27] LABS: Influenza A PCR NEGATIVE (Negative); Influenza B PCR NEGATIVE (Negative); Resp Syncy Virus RNA Qual PCR NEGATIVE (Negative); SARS COV2 PCR INHOUSE NEGATIVE (Negative)
[2023-09-22 01:36] LABS: SLIDE REVIEW VERIFIED
[2023-09-22] MEDS: LORazepam 2 MG/ML VIAL 1 MG IVPUSH ×2 (01:40→10:19)
--- NOTE | 2023-09-22 01:44 | PC.NURSE ---
pt woke up vomiting again. MD aware, medicated per MAR
[2023-09-22] MEDS: 0.9 % Sodium Chloride 1,000 ML 75 ML IVCONT (02:18)
--- NOTE | 2023-09-22 02:24 | PC.NURSE ---
rectal temp 100.8, pt up to the bathroom independently with cane
--- NOTE | 2023-09-22 02:32 | P.HPHOSP_ITS ---
History of Present Illness Date of Service: 09/22/23 Chief Complaint: Vomiting and diarrhea This is a 58-year-old female with pertinent history of essential hypertension, mixed hyperlipidemia, mood disorder, insulin-dependent diabetes mellitus, hypothyroidism, gastroesophageal reflux disease, congestive heart failure with preserved ejection fraction, MARY on CPAP, asthma not on home oxygen who presents to the emergency department for evaluation of abdominal pain, intractable vomiting and diarrhea. Of note, patient was recently admitted on 09/11 and discharged on 09/17 with persistent abdominal pain, vomiting and diarrhea. Patient got 2 CT scans which did not show any acute finding. Patient was also seen by GI and surgery during previous admission and underwent upper endoscopy which showed esophagitis and colonoscopy which showed colonic dysmotility, internal hemorrhoids and cecal polyp. Patient was discharged with p.o. mesalamine and p.o. vancomycin. Patient states her symptoms began to come back after discharge. She had progressive worsening of her symptoms over the last 10 days. On the day of presentation, patient had severe right-sided abdominal pain which was associated with multiple episodes of nonbloody emesis and multiple episodes of nonbloody diarrhea. She stated that she was unable to tolerate p.o. intake. Ate bread and lemonade for lunch and boiled clams for dinner. No fever or chills. No chest discomfort, palpitations, shortness of breath, changes in urinary habits. In the emergency department, patient with multiple episodes of vomiting and diarrhea. Also was found to be febrile at 100.8 Review of Systems 2 Constitutional: Constitutional: Reports fatigue, Reports lethargy, Reports malaise and Reports poor appetite Cardiovascular: Cardiovascular: Reports no additional cardiovascular complaints Respiratory: Respiratory: Reports no additional respiratory complaints Gastrointestinal: Gastrointestinal: Reports abdominal pain, Reports tenesmus, Reports GI cramping, Reports diarrhea, Reports loose stools, Reports nausea and Reports vomiting Genitourinary: Genitourinary: Reports no additional female genitourinary complaints Endocrine: Endocrine: Reports fatigue PMFSH Medical History Essential hypertension Acute diarrhea Pre-op examination Cervical radiculopathy Rash of foot Kiera albicans infection Cervicalgia Left shoulder pain Environmental allergies Hospital discharge follow-up MARY on CPAP Elevated red blood cell count Screening for hyperlipidemia Chronic pain syndrome Lumbar pain Encounter for annual routine gynecological examination Multiple air fluid levels of small intestine determined by X-ray Abdominal bloating Hypothyroid Sleep apnea Abdominal cramping Edema Anxiety with depression Chronic pain (Unknown) Gastroparesis Left knee pain Hypothyroidism Bilateral shoulder pain Hyperlipidemia LDL goal <70 Degeneration, intervertebral disc, cervical Spondylosis of cervical spine at multiple levels without myelopathy Sleep apnea Renal calculi Incontinence Goiter Disc degeneration, lumbar Spondylosis of lumbar region without myelopathy or radiculopathy Arthropathy of facet joint Insomnia LUDY (generalized anxiety disorder) Moderately severe recurrent major depression Diabetes mellitus Chronic pain syndrome Morbid (severe) obesity due to excess calories Fibromyalgia Small bowel motility disorder Chronic idiopathic constipation Asthma Family History Father Past heart attack Anxiety Mother MOF (multiple organ failure) Brother HIV (human immunodeficiency virus infection) Sister Ovarian cancer Lupus Bone cancer Uterine cancer Tumor Daughter Guillain-[place] Sister Lupus History of open heart surgery Family/Other Depression FH: mental illness Maternal Aunt Breast cancer Maternal Aunt Tumor Surgical History History of knee replacement procedure of right knee History of hernia surgery Hx of colonoscopy History of esophagogastroduodenoscopy (EGD) History of cholecystectomy Delivery by section History of hysterectomy Social History Household Members: None Household Members Other:: Housing: Apartment Are you a primary health care legal assistant to a significant other at home: No Do you presently have visiting nurse or other home services: Yes (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) Alcohol intake: never Patient Tobacco Use Status: Never used Tobacco Smoked in Last 30 Days: No e-Cigarette/Vaping Use: Never Used Second Hand Smoke Exposure: Yes Use of substances other than those prescribed or required for medical reasons: No Advance Directives: Yes Advance Directives on File: Yes Advance Directives Date on File: 12/08/21 Patient : No service: No Current occupational status: unemployed and disabled Cognitive needs: No Hearing needs: No Vision needs: No Meds Allergies Allergy/AdvReac Type Severity Reaction Status Date / Time Penicillins Allergy Severe swelling Verified 09/21/23 23:31 adhesive tape [ADHESIVE TAPE] Allergy Intermediate RASH Verified 09/21/23 23:31 amoxicillin [AMOXICILLIN] Allergy Intermediate RASH,SWELLI Verified 09/21/23 23:31 NG ibuprofen [From Motrin] Allergy Intermediate Hypertensio Verified 09/21/23 23:31 n latex Allergy Intermediate Rash Verified 09/21/23 23:31 Active Medications: Current Medications Sodium Chloride (Ns) 1,000 mls @ 75 mls/hr IVCONT .[id number] RADHA Last Admin: 09/22/23 02:18 Dose: 75 mls/hr Home Medications Medication Instructions Recorded Confirmed Last Taken Type atorvastatin 10 mg tablet 10 mg PO BEDTIME 08/25/23 09/11/23 Unknown History clonidine HCl 0.1 mg tablet 0.1 mg PO TID PRN Anxiety 08/25/23 09/11/23 Unknown History doxepin 25 mg capsule 25 - 50 mg PO BEDTIME PRN insomnia 08/25/23 09/11/23 Unknown History hydroxyzine HCl 50 mg tablet 50 mg PO TID PRN itch 08/25/23 09/11/23 Unknown History insulin lispro 100 unit/mL 5 unit subcut TID 08/25/23 09/11/23 Unknown History subcutaneous solution levothyroxine 112 mcg tablet 112 mcg PO DAILY@0600 08/25/23 09/11/23 Unknown History rizatriptan 5 mg tablet 5 mg PO ONCE PRN Migraine Headache 08/25/23 09/11/23 Unknown History trazodone 150 mg tablet 150 mg PO BEDTIME PRN insomnia 08/25/23 09/11/23 Unknown History acetaminophen 650 mg 650 mg PO Q8H PRN arthritis 09/11/23 09/11/23 Unknown History tablet,extended release amlodipine 10 mg tablet 10 mg PO DAILY 09/11/23 09/11/23 Unknown History lorazepam 1 mg tablet 1 mg PO DAILY PRN ANXIETY 09/11/23 09/11/23 Unknown History umeclidinium 62.5 mcg/actuation 1 inh inhalation DAILY 09/11/23 09/11/23 Unknown History blister powder for inhalation (Incruse Ellipta) Physical Exam 2 Vital Signs and Narrative: Vital Signs: Last Vital Signs Temp 99.3 F 09/22/23 00:35 Pulse 107 H 09/22/23 00:35 Resp 20 09/22/23 00:35 BP 138/98 H 09/22/23 00:35 Pulse Ox 97 09/22/23 00:35 O2 Del Method Room Air 09/22/23 00:35 BMI result Body Mass Index 39.2 Middle-aged female lying in bed in mild distress Neck supple, no JVD Regular rate and rhythm, S1-S2 heard Regular breath sounds bilaterally, no wheezing or crackles appreciated Abdomen with generalized tenderness, no guarding, no rigidity, no rebound tenderness Patient is awake, alert and oriented to self, place, time and person ; no focal motor deficit Psych: Normal mood No pedal edema Results Labs 09/22/23 00:46 09/22/23 00:46 Labs: Laboratory Results - last 24 hr 09/22/23 09/22/23 09/22/23 00:42 00:46 00:46 MCV 72.4 L MCH 22.2 L MCHC 30.7 L RDW 19.9 H Plt Count 449 H D MPV 9.9 Immature Gran % (Auto) 0.8 H Neut % (Auto) 84.5 H Lymph % (Auto) 8.1 L [place] % (Auto) 5.1 Eos % (Auto) 1.1 Baso % (Auto) 0.4 Lymph # (Auto) 2.0 [place] # (Auto) 1.3 H Eos # (Auto) 0.3 Baso # (Auto) 0.1 Abs Immat Gran (auto) 0.19 H Absolute Neuts (auto) 20.7 H Absolute Nucleated RBC 0.000 Nucleated RBC % (auto) 0.0 Smear Tech's Comments VERIFIED Anion Gap 16 Estim Creat Clear Calc 84.8 Estimated GFR > 60 Random Glucose 191 H Calcium 10.4 H D Total Bilirubin 0.5 AST 20 ALT 21 Alkaline Phosphatase 106 Total Protein 8.9 H Albumin 4.3 Lipase 78 Cancelled Influenza Type A (PCR) NEGATIVE Influenza Type B (PCR) NEGATIVE RSV RNA Qual (PCR) NEGATIVE SARS-CoV-2 RNA (RT-PCR) NEGATIVE Assessment and Plan (1) Vomiting: Qualifiers: Nausea presence: with nausea Vomiting type: unspecified Qualified Code(s): R11.2 - Nausea with vomiting, unspecified Status: Acute (2) Abdominal pain: Qualifiers: Abdominal location: right lower quadrant Qualified Code(s): R10.31 - Right lower quadrant pain Status: Acute (3) Diarrhea: Status: Acute Plan This is a 58-year-old female with pertinent history of essential hypertension, mixed hyperlipidemia, mood disorder, insulin-dependent diabetes mellitus, hypothyroidism, gastroesophageal reflux disease, congestive heart failure with preserved ejection fraction, MARY on CPAP, asthma not on home oxygen who presents to the emergency department for evaluation of abdominal pain, intractable vomiting and diarrhea. #. Intractable vomiting with abdominal pain and diarrhea: Also found to be febrile and meets SIRS criteria. Will initiate empiric IV antibiotics and obtaining lactic acid. Resuscitated with IV crystalloids. Was initiated on p.o. mesalamine and p.o. vancomycin during previous admission. Consulting Gastroenterology, appreciate assistance. GI panel and repeat C diff pending. Clear liquid diet and advanced as tolerated #. Insulin-dependent diabetes mellitus with hyperglycemia: Initiating Accu- Cheks with sliding scale insulin. Reduce home basal insulin #. Hypothyroidism: Continue home Synthroid, obtaining TSH #. Moderate persistent asthma without acute exacerbation: Continue home inhalers #. Mood disorder: Continue home mood stabilizers #. Congestive heart failure with preserved ejection fraction: Bumex discontinued during previous hospitalization #. Mixed hyperlipidemia: On statin #. Essential hypertension: On amlodipine #. MARY: Will order and continue CPAP at bedtime #. Obesity: Counseled regarding diet and exercise Med rec pending DVT prophylaxis: Lovenox Full code Admit as inpatient and will require two night minimum hospital stay for persistent abdominal pain, intractable vomiting and monitoring of GI function, IV antibiotics (as above), which is not possible in a lesser acute setting. Specialist consult pending Quality Stroke Does the patient have a stroke diagnosis?: No VTE Prior VTE?: No VTE Risk Level:: Medical - moderate - high VTE Device Contraindication: Treatment Not Indicated VTE Drug Contraindication: N/A - Med Ordered
--- OUTSIDE RECORDS SUMMARY | 2023-09-22 02:35 | XMS_ITS | Patient Health Record ---
Author Name Unknown Organization [facility] Address [address] [place] [address] Care Team Providers Care Film Historian Name Role Phone Capo BOBBY, Cicero Primary Care Provider Shaquille Sofia [phone] REASON FOR REFERRAL No Information MEDICATIONS Medication SIG (Take, Route, Fr equency, Duration) Notes Start Date End Date Status Omeprazole 20 MG Take 1 capsule QD pr n heartburn for 30 Active SOCIAL HISTORY Sex Assigned At : Social History Observation Description Sex Assigned At Unknown PLAN OF TREATMENT No Information Insurance Providers Payer Name Payer Address Payer Phone Subscriber Number Group Number Insured Name Patient Relationship to Insured Coverage Start Date Coverage End Date [facility] [address] [address] [place], [place] [id number] LUCIANO ALONDRA Self - patient is the insured
[2023-09-22 02:45] LABS: Appearance Urine Cloudy; Color Urine Yellow; Glucose Urine UA Negative (Negative); Leukocyte Esterase Urine Small (1+) (Negative); Nitrite Urine Negative (Negative); PH 6.5 (5.0-9.0); UMIC TRIGGER UACC YES; Urine Blood Negative (Negative); Urine Ketones Trace mg/dL (Negative); Urine Protein 30 (1+) mg/dL (Neg-Trace)
[2023-09-22] MEDS: Acetaminophen 325 MG TABLET 650 MG PO ×3 (02:48→17:15)
[2023-09-22 02:56] LABS: Amphetamine Screen Urine Not Detected (Not Detect); Barbiturates, Urine Not Detected (Not Detect); Benzodiazepines Screen Urine Not Detected (Not Detect); Cannabinoid Screen Urine Not Detected (Not Detect); Cocaine Screen Urine Not Detected (Not Detect); Fentanyl, urine Not Detected (Not Detect); Opiate Screen Urine Not Detected (Not Detect); Phencyclidine Screen Urine Not Detected (Not Detect)
--- NOTE | 2023-09-22 03:01 | PC.NURSE ---
pt continues to vomit
--- NOTE | 2023-09-22 03:08 | PC.NURSE ---
pt medicated per MAR for temp
[2023-09-22 03:23] LABS: Lactic Acid 4.7 mmol/L (0.5-2.0)
[2023-09-22] MEDS: metroNIDAZOLE/NS 500 MG/100 ML PIGGYBACK 100 MG IV ×3 (03:33→20:31)
[2023-09-22] MEDS: Insulin Glargine,Hum.rec.anlog 100 UNIT/ML 10 ML VIAL 12 UNIT SUBCUT ×2 (03:33→20:36)
[2023-09-22 03:37] LABS: Basophils Percent Auto 0.2 % (0-2); Eosinophils Percent Auto 0.1 % (0-4); Hematocrit 40.7 % (37.0-47.0); Hemoglobin 12.3 g/dl (12.0-16.0); Imm Gran Abs Auto 0.19 X10*3/uL (0.00-0.03); Imm Gran Pct Auto 0.9 % (0.0-0.4); Lymphocytes Absolute Auto 1.1 X10*3/uL (1.2-4.9); Lymphocytes Percent Auto 5.4 % (20-40); MANUAL DIFF FLAG SCAN; Mean Corpuscular HGB Conc 30.2 g/dl (31.0-35.0); Mean Corpuscular Volume 72.8 fL (80.0-98.0); Mean Platelet Volume 9.7 fL (9.4-12.3); Monocytes Absolute Auto 0.5 X10*3/uL (0.1-1.2); Monocytes Percent Auto 2.3 % (2-11); Neutrophils Absolute Auto 18.8 x10*3/uL (2.0-8.3); Neutrophils Percent Auto 91.1 % (45-73); Platelet Count 392 X10*3/uL (160-400); Red Blood Count 5.59 X10*6/uL (4.20-5.50); Red Cell Distribution Width 19.8 % (11.0-16.0); SCAN SMEAR FLAG 1; White Blood Count 20.7 X10*3/uL (4.8-10.8)
[2023-09-22 03:37] LABS: Bacteria Urine Trace (None Seen); UACC Culture Trigger YES
[2023-09-22] MEDS: 0.9 % Sodium Chloride 1,000 ML 500 ML IV (03:52)
[2023-09-22 03:53] LABS: Anion Gap 15 (12-20); Blood Urea Nitrogen 15 mg/dL (9-16); Calcium 9.7 mg/dL (8.4-10.2); Carbon Dioxide 24 mmol/L (22-29); Chloride 108 mmol/L (96-108); Creatinine Clr Calc Pharmacy 100.8; Estimated Glomerular Filt Rate > 60; Glucose Random 216 mg/dL (60-115); Potassium 4.5 mmol/L (3.3-5.1); Sodium 142 mmol/L (135-145)
[2023-09-22] MEDS: ondansetron HCL 4 MG/2 ML VIAL IVPUSH ×2 (03:54→09:47)
--- NOTE | 2023-09-22 04:01 | PC.NURSE ---
temp down to 100.3 rectal. aware
[2023-09-22] MEDS: Acetaminophen 1,000 MG/100 ML PIGGYBACK 400 MG IV (04:21)
[2023-09-22] MEDS: Metoclopramide HCl 10 MG/2 ML VIAL IVPUSH (04:31)
[2023-09-22] MEDS: levoFLOXacin/D5W 750 MG/150 ML PIGGYBACK 100 MG IV ×2 (04:40→21:55)
[2023-09-22 05:05] LABS: Reflex Lactate? Lactic Acid Added
--- NOTE | 2023-09-22 05:30 | PC.NURSE ---
pt using commode at bedside.
--- NOTE | 2023-09-22 05:31 | PC.NURSE ---
rectal temp 99.6
[2023-09-22 06:29] LABS: ~Lactic Acid-LAB USE ONLY 4.5 mmol/L (0.5-2.0)
[2023-09-22] MEDS: Levothyroxine Sodium 112 MCG TABLET PO (07:01)
--- NOTE | 2023-09-22 07:10 | P.CNGI_ITS ---
History of Present Illness Data of Consult Service Date: 09/22/23 Requesting physician: Leonel Boothe Primary Care Provider: Jenny Bell MD HPI Reason for consult: nausea, pain, 58-year-old female with pertinent history of essential hypertension, mixed hyperlipidemia, mood disorder, insulin-dependent diabetes mellitus, hypothyroidism, gastroesophageal reflux disease, congestive heart failure with preserved ejection fraction, MARY on CPAP, asthma not on home oxygen who I am seeing for assessment for abdominal pain, intractable vomiting and diarrhea. Patient was discharged 5 d ago after prolonged admission with abdominal pain. she had EGD and colonoscopy with colonic dysmotility, internal hemorrhoids and cecal polyp noted. she also had stool pos for c diff PCR but neg for toxin. she was d/c'ed on vancomycin and mesalamine. she says that since d/c the symptoms have never really went away and she got worse these last few days so came back in with worsening nausea, non bloody emesis and diffuse abdominal pain, crampy and 10/10 in severity without any relieiving factors, worse with food. labs with worsening WCC and lactate elevation. Review of Systems 2 Review of Systems: Constitutional : No Weight loss, No Fever, No Chills ENT/Mouth : No sore throat, No Rhinorrhea Eyes: No Swelling, No Redness Cardiovascular : No Chest Pain, + SOB, No Edema Respiratory : No Cough, + Sputum, No Wheezing Gastrointestinal : see HPI Genitourinary : NO Dysuria, No Urinary Frequency, No Hematuria, No Urgency Musculoskeletal : No joint pain, No Myalgias, No Joint Swelling Skin : No Skin Lesions, No rash Neuro : + Weakness, No Numbness, No Dizziness, No Headache Psych : No Anxiety/Panic, No Depression Heme/Lymph: No Bruising, No Lymphadenopathy Endocrine : No Polyuria, No Polydipsia All other systems reviewed and are negative. [facility] Past Medical History Medical History Essential hypertension Acute diarrhea Pre-op examination Cervical radiculopathy Rash of foot Kiera albicans infection Cervicalgia Left shoulder pain Environmental allergies Hospital discharge follow-up MARY on CPAP Elevated red blood cell count Screening for hyperlipidemia Chronic pain syndrome Lumbar pain Encounter for annual routine gynecological examination Multiple air fluid levels of small intestine determined by X-ray Abdominal bloating Hypothyroid Sleep apnea Abdominal cramping Edema Anxiety with depression Chronic pain (Unknown) Gastroparesis Left knee pain Hypothyroidism Bilateral shoulder pain Hyperlipidemia LDL goal <70 Degeneration, intervertebral disc, cervical Spondylosis of cervical spine at multiple levels without myelopathy Sleep apnea Renal calculi Incontinence Goiter Disc degeneration, lumbar Spondylosis of lumbar region without myelopathy or radiculopathy Arthropathy of facet joint Insomnia LUDY (generalized anxiety disorder) Moderately severe recurrent major depression Diabetes mellitus Chronic pain syndrome Morbid (severe) obesity due to excess calories Fibromyalgia Small bowel motility disorder Chronic idiopathic constipation Asthma Family History Family History Father Past heart attack Anxiety Mother MOF (multiple organ failure) Brother HIV (human immunodeficiency virus infection) Sister Ovarian cancer Lupus Bone cancer Uterine cancer Tumor Daughter Guillain-[place] Sister Lupus History of open heart surgery Family/Other Depression FH: mental illness Maternal Aunt Breast cancer Maternal Aunt Tumor Surgical History Surgical History History of knee replacement procedure of right knee History of hernia surgery Hx of colonoscopy History of esophagogastroduodenoscopy (EGD) History of cholecystectomy Delivery by section History of hysterectomy Social History Social History Household Members: None Household Members Other:: Housing: Apartment Are you a primary restorative care technician to a significant other at home: No Do you presently have visiting nurse or other home services: Yes Alcohol intake: never Patient Tobacco Use Status: Never used Tobacco e-Cigarette/Vaping Use: Never Used Second Hand Smoke Exposure: Yes Advance Directives Date on File: 12/08/21 service: No Current occupational status: unemployed and disabled Cognitive needs: No Hearing needs: No Vision needs: No Meds Allergies Allergy/AdvReac Type Severity Reaction Status Date / Time Penicillins Allergy Severe swelling Verified 09/21/23 23:31 adhesive tape [ADHESIVE TAPE] Allergy Intermediate RASH Verified 09/21/23 23:31 amoxicillin [AMOXICILLIN] Allergy Intermediate RASH,SWELLI Verified 09/21/23 23:31 NG ibuprofen [From Motrin] Allergy Intermediate Hypertensio Verified 09/21/23 23:31 n latex Allergy Intermediate Rash Verified 09/21/23 23:31 Active Medications: Current Medications Acetaminophen (Acetaminophen 325 Mg Tablet) 650 mg PO Q6H PRN PRN Reason: Pain, Mild (Pain Scale 1-3) Last Admin: 09/22/23 02:48 Dose: 650 mg Dextrose (Dextrose 50 % 25 Gm/50 Ml Syringe) 25 gm IVPUSH Q15M PRN; Protocol PRN Reason: per Hypoglycemia Standing Ord. Enoxaparin Sodium (Enoxaparin Sodium 40 Mg/0.4 Ml Syringe) 40 mg SUBCUT Q24H [facility] Glucose (Glucose Gel 15 Gm Gel..Gram.) 15 gm PO Q15M PRN; Protocol PRN Reason: per Hypoglycemia Standing Ord. Levofloxacin (Levaquin) 750 mg in 150 mls @ 100 mls/hr IV 2200 [facility] Last Admin: 09/22/23 04:40 Dose: 100 mls/hr Metronidazole (Flagyl) 500 mg in 100 mls @ 100 mls/hr IV 0600,1400,2200 [facility] Last Infusion: 09/22/23 04:29 Dose: Infused Insulin Glargine (Insulin Glargine,Hum.Rec.Anlog 100 Unit/Ml 10 Ml Vial) 12 unit SUBCUT BEDTIME [facility] Last Admin: 09/22/23 03:33 Dose: 12 unit Insulin Human Lispro (Insulin Lispro 100 Unit/Ml 3 Ml Vial) 0 unit SUBCUT QIDACHS [facility]; Protocol Levothyroxine Sodium (Levothyroxine Sodium 112 Mcg Tablet) 112 mcg PO DAILY@0630 [facility] Last Admin: 09/22/23 07:01 Dose: 112 mcg Melatonin (Melatonin 3 Mg Tablet) 6 mg PO BEDTIME PRN PRN Reason: Insomnia Ondansetron HCl (Ondansetron Hcl 4 Mg/2 Ml Vial) 4 mg IVPUSH Q8H PRN PRN Reason: Nausea and Vomiting Last Admin: 09/22/23 03:54 Dose: 4 mg Sodium Chloride (0.9 % Sodium Chloride Flush 3 Ml Syringe) [facility] Home Medications Medication Instructions Recorded Confirmed Last Taken Type atorvastatin 10 mg tablet 10 mg PO BEDTIME 08/25/23 09/22/23 Unknown History clonidine HCl 0.1 mg tablet 0.1 mg PO TID PRN Anxiety 08/25/23 09/22/23 Unknown History doxepin 25 mg capsule 25 - 50 mg PO BEDTIME PRN insomnia 08/25/23 09/11/23 Unknown History hydroxyzine HCl 50 mg tablet 50 mg PO TID PRN itch 08/25/23 09/22/23 Unknown History insulin lispro 100 unit/mL 5 unit subcut TID 08/25/23 09/22/23 Unknown History subcutaneous solution levothyroxine 112 mcg tablet 112 mcg PO DAILY@0600 08/25/23 09/22/23 Unknown History rizatriptan 5 mg tablet 5 mg PO ONCE PRN Migraine Headache 08/25/23 09/22/23 Unknown History trazodone 150 mg tablet 150 mg PO BEDTIME PRN insomnia 08/25/23 09/22/23 Unknown History acetaminophen 650 mg 650 mg PO Q8H PRN arthritis 09/11/23 09/22/23 Unknown History tablet,extended release amlodipine 10 mg tablet 10 mg PO DAILY 09/11/23 09/22/23 Unknown History lorazepam 1 mg tablet 1 mg PO DAILY PRN ANXIETY 09/11/23 09/22/23 Unknown History umeclidinium 62.5 mcg/actuation 1 inh inhalation DAILY 09/11/23 09/22/23 Unknown History blister powder for inhalation (Incruse Ellipta) dicyclomine 10 mg capsule 20 mg PO QID PRN abdominal pain 09/22/23 09/22/23 Unknown History duloxetine 60 mg capsule,delayed 60 mg PO QAM 09/22/23 09/22/23 Unknown History release metoprolol tartrate 50 mg tablet 50 mg PO BID 09/22/23 09/22/23 Unknown History pantoprazole 40 mg tablet,delayed 40 mg PO BID 09/22/23 09/22/23 Unknown History release sennosides 8.6 mg tablet (senna) 17.2 mg PO BEDTIME PRN constipation 09/22/23 09/22/23 Unknown History Physical Exam 2 Vital Signs: Vital Signs: Last Vital Signs Temp 99.6 F 09/22/23 05:32 Pulse 109 H 09/22/23 04:34 Resp 18 09/22/23 04:34 BP 187/78 H 09/22/23 04:34 Pulse Ox 98 09/22/23 04:34 O2 Del Method Room Air 09/22/23 04:34 BMI result Body Mass Index 39.2 EXAM: GENERAL: The patient is obese, uncomfortable appearing VITAL SIGNS:see workflow HEENT: Nonicteric sclerae, PERRLA, EOMI. Oropharynx clear. Moist mucous membranes. Conjunctivae appear well perfused. No thyroid mass. CHEST: Chest wall is nontender. HEART: Regular rate and rhythm without murmurs. LUNGS: Clear to auscultation bilaterally. ABDOMEN: Soft, positive bowel sounds, gen tender jose mid abdo, no organomegaly.no flank tenderness SKIN: No rash, no excessive bruising, petechiae, or purpura. NEUROLOGIC: Cranial nerves II-XII intact without motor/sensory deficit. Psych: Appearance: grossly normal Results Labs 09/22/23 03:32 09/22/23 03:32 Labs: Short CBC 09/22/23 09/22/23 Range/Units 00:46 03:32 WBC 24.5 H 20.7 H (4.8-10.8) X10*3/uL Hgb 13.3 12.3 (12.0-16.0) g/dl Hct 43.3 40.7 (37.0-47.0) % Plt Count 449 H D 392 (160-400) X10*3/uL BMP 09/22/23 09/22/23 00:46 03:32 Sodium 142 142 Potassium 4.6 D 4.5 Chloride 107 108 Carbon Dioxide 24 24 BUN 15 15 Creatinine 0.95 0.80 Calcium 10.4 H D 9.7 D Liver Function 09/22/23 Range/Units 00:46 Total Bilirubin 0.5 (0.0-1.0) mg/dL AST 20 (5-31) U/L ALT 21 (0-31) U/L Alkaline Phosphatase 106 (39-117) U/L Albumin 4.3 (3.5-5.0) g/dL Urine 09/22/23 Range/Units 02:36 Urine Color Yellow Urine Appearance Cloudy Urine pH 6.5 (5.0-9.0) Ur Specific [place] 1.020 (1.005-1.025) Urine Protein 30 (1+) H (Neg-Trace) mg/dL Urine Glucose (UA) Negative (Negative) mg/dL Assessment and Plan (1) Vomiting: Qualifiers: Nausea presence: with nausea Vomiting type: unspecified Qualified Code(s): R11.2 - Nausea with vomiting, unspecified Status: Acute (2) Abdominal pain: Qualifiers: Abdominal location: right lower quadrant Qualified Code(s): R10.31 - Right lower quadrant pain Status: Acute (3) Elevated lactic acid level: Status: Acute Plan 1/ Worsening abdominal pain, leucocytosis, lactate acidosis ddx: mesenteric ischemia, vasculitis, IBD, enteropathy, much less likely porphyria, FMF. Recent colonoscopy with any colitis, c diff might be coloniser rather than active cause of her sx. PLAN: 1/ consider duplex vs CTA to r/o ischemia, vasculitis 2/ recheck c diff, pcr testing 3/ cont with ABX, vanco and mesalamine for the meantime Procedures Date of Service Date of Service: 09/22/23
--- NOTE | 2023-09-22 07:18 | PC.NURSE ---
Pt complaining of severe abdominal pain; No PRN pain medications available - contacting IP provider. Pt hypertensive, states that she takes 50mg Metoprolol at home, has not taken her meds since arriving in the hospital. Awaiting provider response.
[2023-09-22] MEDS: HYDROmorphone HCl 0.5 MG/0.5 ML SYRINGE 0.25 MG IVPUSH ×2 (07:28→10:20)
[2023-09-22 07:42] LABS: Glucose, Whole Blood 208 mg/dL (60-115)
[2023-09-22] MEDS: Insulin Lispro 100 UNIT/ML 3 ML VIAL SUBCUT ×2 (07:54→12:12)
[2023-09-22 08:13] LABS: Reflex Lactate? 2 Y
[2023-09-22 09:15] LABS: ~Lactic Acid-LAB USE ONLY 4.1 mmol/L (0.5-2.0)
[2023-09-22] MEDS: Enoxaparin Sodium 40 MG/0.4 ML SYRINGE SUBCUT (10:19)
[2023-09-22] MEDS: Metoprolol Tartrate 50 MG TABLET PO ×2 (10:19→20:36)
[2023-09-22] MEDS: amLODIPine Besylate 10 MG TABLET PO (10:19)
[2023-09-22] MEDS: 0.9 % Sodium Chloride Flush 3 ML SYRINGE IVFLUSH ×4 (10:19→23:37)
[2023-09-22] MEDS: 0.9 % Sodium Chloride 1,000 ML 999 ML IV (10:23)
--- NOTE | 2023-09-22 11:05 | HO.PM.IMPN ---
Subjective Subjective Date of Service: 09/22/23 Interval History: Seen in follow-up for intractable nausea and vomiting, abdominal pain Interval history: Admitted early this morning. Patient continues with 10/10 diffuse abdominal pain, worse in the epigastrium. Ongoing nausea/vomiting with p.o. intolerance. Reporting midsternal chest tightness that is reproducible to palpation, pleuritic in nature. No radiation, shortness of breath, lightheadedness, palpitations. Reports anxiety. Hypertensive to 181/88. Review of Systems Review of Systems: Yes all other systems are reviewed and are negative Physical Exam Vital Signs: Vital Signs: Last Vital Signs Temp 98.1 F 09/22/23 09:22 Pulse 97 09/22/23 09:22 Resp 20 09/22/23 09:22 BP 181/88 H 09/22/23 09:22 Pulse Ox 97 09/22/23 09:22 O2 Del Method Room Air 09/22/23 09:22 BMI result Body Mass Index 39.1 Constitutional - Awake and Alert, No apparent distress Eyes - PERRLA, EOMI Cardiovascular - S1S2, RRR, No edema Respiratory - Normal lung expansion, Normal respiratory effort, No respiratory distress, CTA bilaterally Gastrointestinal - diffuse ttp, greatest in epigastrium with voluntary guarding. ND; +BS, no rebound Extremities - no calf tenderness bilaterally, no swelling Skin - Warm/Dry Neurological - Alert & oriented x3 Psychological - Appropriate affect Objective Data Active Medications Acetaminophen (Acetaminophen 325 Mg Tablet) 650 mg PO Q6H PRN PRN Reason: Pain, Mild (Pain Scale 1-3) Last Admin: 09/22/23 10:02 Dose: 650 mg Documented By: CASS Amlodipine Besylate (Amlodipine Besylate 10 Mg Tablet) 10 mg PO DAILY [facility] [place]; Protocol Last Admin: 09/22/23 10:19 Dose: 10 mg Documented By: CASS Capsaicin (Capsaicin 0.025% Cream 60 Gm Tube) 1 appl TOPICAL TID PRN; Protocol PRN Reason: Nausea and Vomiting Clonidine HCl (Clonidine Hcl 0.1 Mg Tablet) 0.1 mg PO TID PRN; Protocol PRN Reason: anxiety Dextrose (Dextrose 50 % 25 Gm/50 Ml Syringe) 25 gm IVPUSH Q15M PRN; Protocol PRN Reason: per Hypoglycemia Standing Ord. Enoxaparin Sodium (Enoxaparin Sodium 40 Mg/0.4 Ml Syringe) 40 mg SUBCUT Q24H [facility] [place] Last Admin: 09/22/23 10:19 Dose: 40 mg Documented By: CASS Glucose (Glucose Gel 15 Gm Gel..Gram.) 15 gm PO Q15M PRN; Protocol PRN Reason: per Hypoglycemia Standing Ord. Levofloxacin (Levaquin) 750 mg in 150 mls @ 100 mls/hr IV 2200 [facility] [place] Last Infusion: 09/22/23 07:52 Dose: Infused Documented By: ARIANNA Metronidazole (Flagyl) 500 mg in 100 mls @ 100 mls/hr IV 0600,1400,2200 [facility] [place] Last Infusion: 09/22/23 04:29 Dose: Infused Documented By: RADHA Sodium Chloride (Ns) 1,000 mls @ 999 mls/hr IV .Q1H1M [facility] [place] Stop: 09/22/23 11:15 Last Admin: 09/22/23 10:23 Dose: 999 mls/hr Documented By: CASS Insulin Glargine (Insulin Glargine,Hum.Rec.Anlog 100 Unit/Ml 10 Ml Vial) 12 unit SUBCUT BEDTIME [facility] [place] Last Admin: 09/22/23 03:33 Dose: 12 unit Documented By: RADHA Insulin Human Lispro (Insulin Lispro 100 Unit/Ml 3 Ml Vial) 0 unit SUBCUT QIDACHS [facility] [place]; Protocol Last Admin: 09/22/23 07:54 Dose: 4 unit Documented By: ARIANNA Levothyroxine Sodium (Levothyroxine Sodium 112 Mcg Tablet) 112 mcg PO DAILY@0630 [facility] [place] Last Admin: 09/22/23 07:01 Dose: 112 mcg Documented By: ARIANNA Lorazepam (Lorazepam 1 Mg Tablet) 1 mg PO DAILY PRN PRN Reason: anxiety Melatonin (Melatonin 3 Mg Tablet) 6 mg PO BEDTIME PRN PRN Reason: Insomnia Metoprolol Tartrate (Metoprolol Tartrate 50 Mg Tablet) 50 mg PO BID [facility] [place]; Protocol Last Admin: 09/22/23 10:19 Dose: 50 mg Documented By: CASS Ondansetron HCl (Ondansetron Hcl 4 Mg/2 Ml Vial) 4 mg IVPUSH Q8H PRN PRN Reason: Nausea and Vomiting Last Admin: 09/22/23 09:47 Dose: 4 mg Documented By: CASS Pantoprazole Sodium (Pantoprazole Sodium 40 Mg/10 Ml Vial) 40 mg IVPUSH BID@0630,1630 [facility] [place] Sodium Chloride (0.9 % Sodium Chloride Flush 3 Ml Syringe) 3 ml IVFLUSH QSHIFT RADHA Last Admin: 09/22/23 10:19 Dose: 3 ml Documented By: CASS Labs 09/22/23 03:32 09/22/23 03:32 Labs: Laboratory Results - last 24 hr 09/22/23 09/22/23 09/22/23 00:42 00:46 00:46 MCV 72.4 L MCH 22.2 L MCHC 30.7 L RDW 19.9 H Plt Count 449 H D MPV 9.9 Immature Gran % (Auto) 0.8 H Neut % (Auto) 84.5 H Lymph % (Auto) 8.1 L [place] % (Auto) 5.1 Eos % (Auto) 1.1 Baso % (Auto) 0.4 Lymph # (Auto) 2.0 [place] # (Auto) 1.3 H Eos # (Auto) 0.3 Baso # (Auto) 0.1 Abs Immat Gran (auto) 0.19 H Absolute Neuts (auto) 20.7 H Absolute Nucleated RBC 0.000 Nucleated RBC % (auto) 0.0 Smear Tech's Comments VERIFIED Anion Gap 16 Estim Creat Clear Calc 84.8 Estimated GFR > 60 POC Glucose Random Glucose 191 H Lactic Acid Lactic Acid F/U @ 2Hr Lactic Acid F/U @ 4Hr Calcium 10.4 H D Total Bilirubin 0.5 AST 20 ALT 21 Alkaline Phosphatase 106 Total Protein 8.9 H Albumin 4.3 Lipase 78 Cancelled TSH 2.60 Urine Color Urine Appearance Urine pH Ur Specific Silver Urine Protein Urine Glucose (UA) Urine Ketones Urine Blood Urine Nitrite Ur Leukocyte Esterase Urine RBC Urine WBC Ur Squamous Epith Cells Urine Bacteria Hyaline Casts Urine Opiates Screen Urine Fentanyl Screen Ur Barbiturates Screen Ur Phencyclidine Scrn Ur Amphetamines Screen U Benzodiazepines Scrn Urine Cocaine Screen U Marijuana (THC) Screen Influenza Type A (PCR) NEGATIVE Influenza Type B (PCR) NEGATIVE RSV RNA Qual (PCR) NEGATIVE SARS-CoV-2 RNA (RT-PCR) NEGATIVE 09/22/23 09/22/23 09/22/23 02:36 03:00 03:32 MCV 72.8 L MCH 22.0 L MCHC 30.2 L RDW 19.8 H Plt Count 392 MPV 9.7 Immature Gran % (Auto) 0.9 H Neut % (Auto) 91.1 H Lymph % (Auto) 5.4 L [place] % (Auto) 2.3 Eos % (Auto) 0.1 Baso % (Auto) 0.2 Lymph # (Auto) 1.1 L [place] # (Auto) 0.5 Eos # (Auto) 0.0 Baso # (Auto) 0.0 Abs Immat Gran (auto) 0.19 H Absolute Neuts (auto) 18.8 H Absolute Nucleated RBC 0.000 Nucleated RBC % (auto) 0.0 Smear Tech's Comments Anion Gap 15 Estim Creat Clear Calc 100.8 Estimated GFR > 60 POC Glucose Random Glucose 216 H Lactic Acid 4.7 H* Lactic Acid F/U @ 2Hr Lactic Acid F/U @ 4Hr Calcium 9.7 D Total Bilirubin AST ALT Alkaline Phosphatase Total Protein Albumin Lipase TSH Urine Color Yellow Urine Appearance Cloudy Urine pH 6.5 Ur Specific Silver 1.020 Urine Protein 30 (1+) H Urine Glucose (UA) Negative Urine Ketones Trace Urine Blood Negative Urine Nitrite Negative Ur Leukocyte Esterase Small (1+) H Urine RBC 3-5 H Urine WBC 11-20 H Ur Squamous Epith Cells 11-20 Urine Bacteria Trace Hyaline Casts 11-20 Urine Opiates Screen Not Detected Urine Fentanyl Screen Not Detected Ur Barbiturates Screen Not Detected Ur Phencyclidine Scrn Not Detected Ur Amphetamines Screen Not Detected U Benzodiazepines Scrn Not Detected Urine Cocaine Screen Not Detected U Marijuana (THC) Screen Not Detected Influenza Type A (PCR) Influenza Type B (PCR) RSV RNA Qual (PCR) SARS-CoV-2 RNA (RT-PCR) 09/22/23 09/22/23 09/22/23 05:56 07:34 08:55 MCV MCH MCHC RDW Plt Count MPV Immature Gran % (Auto) Neut % (Auto) Lymph % (Auto) [place] % (Auto) Eos % (Auto) Baso % (Auto) Lymph # (Auto) [place] # (Auto) Eos # (Auto) Baso # (Auto) Abs Immat Gran (auto) Absolute Neuts (auto) Absolute Nucleated RBC Nucleated RBC % (auto) Smear Tech's Comments Anion Gap Estim Creat Clear Calc Estimated GFR POC Glucose 208 H Random Glucose Lactic Acid Lactic Acid F/U @ 2Hr 4.5 H* Lactic Acid F/U @ 4Hr 4.1 H* Calcium Total Bilirubin AST ALT Alkaline Phosphatase Total Protein Albumin Lipase TSH Urine Color Urine Appearance Urine pH Ur Specific Silver Urine Protein Urine Glucose (UA) Urine Ketones Urine Blood Urine Nitrite Ur Leukocyte Esterase Urine RBC Urine WBC Ur Squamous Epith Cells Urine Bacteria Hyaline Casts Urine Opiates Screen Urine Fentanyl Screen Ur Barbiturates Screen Ur Phencyclidine Scrn Ur Amphetamines Screen U Benzodiazepines Scrn Urine Cocaine Screen U Marijuana (THC) Screen Influenza Type A (PCR) Influenza Type B (PCR) RSV RNA Qual (PCR) SARS-CoV-2 RNA (RT-PCR) Assessment and Plan (1) SIRS (systemic inflammatory response syndrome): Status: Acute (2) Vomiting: Status: Acute (3) Abdominal pain: Status: Acute Plan 58-year-old female with pertinent history of essential hypertension, mixed hyperlipidemia, mood disorder, insulin-dependent diabetes mellitus, hypothyroidism, gastroesophageal reflux disease, congestive heart failure with preserved ejection fraction, MARY on CPAP, asthma not on home oxygen admitted early this morning for intractable nausea, vomiting, and abdominal pain. Still with 10/10 pain and po intolerance. # intractable N/V/D and abdominal pain with SIRS criteria -etiology unclear at this time -WBC trending down, mild techycardia. Afebrile -Given ongoing intractable abd pain with guarding and lactic acidosis, chest CTA abd/pelvis -Continue empiric levaquin and flagyl -Add IV PPI given PO intoleratance -Hold mesalamine.Resume p.o. vanco (pt discharged on 09/17 with positive cdiff gene but negative toxin). Repeat GI panel and CDiff PCR pending -Appreciate GI input -Clear liquid diet as tolerated, advance as tolerated -antiemetics prn -capsaicin cream. Pain management p.r.n. -follow CBC, cultures #lactic acidosis -appears chronic, etiology unclear. ?hypoperfusion from GI losses. Not likely severe sepsis -Check CTA abd/pelvis -Give 1L IV NS #CDiff -Cdiff gene positive, toxin negative 09/13 -No ongoing diarrhea, continue PO vancomycin for now # insulin-dependent type 2 diabetes with hyperglycemia -dose adjust basal insulin -POC glucose -advanced diabetic diet -Humalog on sliding scale # hypothyroidism -continue levothyroxine # moderate persistent asthma -no acute exacerbation -continue maintenance inhalers, albuterol p.r.n. # mood disorder -continue home meds # heart failure with preserved ejection fraction -clinically euvolemic # hypertension -blood pressure uncontrolled -resume amlodipine 10 mg and metoprolol 50 mg b.i.d. #GERD -on iv ppi, change to po as tolerated DVT prophylaxis- lovenox Full code Quality Stroke Does the patient have a stroke diagnosis?: No VTE Prior VTE?: No VTE Risk Level:: Medical - moderate - high VTE Device Contraindication: Treatment Not Indicated VTE Drug Contraindication: N/A - Med Ordered
[2023-09-22 11:30] LABS: Glucose, Whole Blood 180 mg/dL (60-115)
[2023-09-22] MEDS: Pantoprazole Sodium 40 MG/10 ML VIAL IVPUSH ×2 (12:12→17:16)
[2023-09-22 12:23] LABS: VBG Base Excess 1.6 mmol/L; VBG HCO3 25 mmol/L (22-26); VBG pCO2 35 mmHg; VBG pH 7.45 (7.32-7.43); VBG pO2 70 mmHg
[2023-09-22 12:27] LABS: Venous Blood Gas Refer to POC result
[2023-09-22 12:34] LABS: Lactic Acid 2.4 mmol/L (0.5-2.0)
[2023-09-22] MEDS: vancomycin HCL 125 MG CAPSULE PO ×3 (14:12→23:37)
[2023-09-22 14:16] LABS: Reflex Lactate? Lactic Acid Added
[2023-09-22] MEDS: Losartan Potassium 25 MG TABLET PO (14:32)
--- NOTE | 2023-09-22 14:36 | PHA.MEDREC ---
Pharmacy Consult ? Medication Reconciliation Pharmacy has completed the medication reconciliation. Unable to go over medications with patient. Called her [employer] Nancy ([phone]) and she asked to call back later when she is at her house to read off her medications however have not received a call back yet. Verified with [facility] that patient picked up the vancomycin and mesalamine on the 18th and the dicyclomine on the 15th after she was discharged from her last admission. Patient did confirm that she stopped the medications that were reported in her discharge packet (metformin, bumex, metoclopramide). Used discharge papers and claim history to verify medications.
[2023-09-22 14:52] LABS: ~Lactic Acid-LAB USE ONLY 2.4 mmol/L (0.5-2.0)
[2023-09-22 16:15] LABS: Glucose, Whole Blood 106 mg/dL (60-115)
[2023-09-22 16:32] LABS: Reflex Lactate? 2 Y
[2023-09-22] MEDS: Meclizine HCl 25 MG TABLET PO (17:15)
[2023-09-22 17:26] LABS: ~Lactic Acid-LAB USE ONLY 1.9 mmol/L (0.5-2.0)
[2023-09-22 20:00] LABS: Glucose, Whole Blood 99 mg/dL (60-115)
[2023-09-22] MEDS: Morphine Sulfate 2 MG/ML CARTRIDGE IVPUSH (20:36)
[2023-09-22] MEDS: cloNIDine HCL 0.1 MG TABLET PO (20:36)
[2023-09-22] MEDS: iohexoL 350 MG/ML 100 ML INFUS..BTL 85 ML IV (23:08)
[2023-09-23] MEDS: Morphine Sulfate 2 MG/ML CARTRIDGE IVPUSH ×6 (00:13→22:10)
[2023-09-23 03:31] VITALS: BP 91/56; PULSE 84; RESP 16; TEMP 36; O2SAT 93
[2023-09-23 04:00] VITALS: BP 111/61
--- NOTE | 2023-09-23 04:37 | MHC.PIE ---
p; pt c/o itchiness i; dr enriquez notified. new order prn camila e; will cont to monitor
[2023-09-23] MEDS: Pantoprazole Sodium 40 MG/10 ML VIAL IVPUSH ×2 (04:40→18:19)
[2023-09-23] MEDS: diphenhydrAMINE HCL 25 MG CAPSULE PO ×2 (04:40→10:58)
[2023-09-23] MEDS: Levothyroxine Sodium 112 MCG TABLET PO (04:40)
[2023-09-23] MEDS: vancomycin HCL 125 MG CAPSULE PO ×3 (04:40→18:20)
[2023-09-23] MEDS: metroNIDAZOLE/NS 500 MG/100 ML PIGGYBACK 100 MG IV ×3 (04:47→20:56)
[2023-09-23] MEDS: cloNIDine HCL 0.1 MG TABLET PO ×3 (05:40→21:55)
[2023-09-23 06:31] LABS: MANUAL DIFF FLAG NO
[2023-09-23 06:54] LABS: Anion Gap 13 (12-20); Blood Urea Nitrogen 10 mg/dL (9-16); Calcium 9.1 mg/dL (8.4-10.2); Carbon Dioxide 24 mmol/L (22-29); Chloride 105 mmol/L (96-108); Creatinine Clr Calc Pharmacy 113.6; Estimated Glomerular Filt Rate > 60; Glucose Random 78 mg/dL (60-115); Potassium 3.7 mmol/L (3.3-5.1); Sodium 138 mmol/L (135-145)
[2023-09-23 06:56] LABS: Basophils Percent Auto 0.3 % (0-2); Eosinophils Absolute Auto 0.3 X10*3/uL (0.0-0.4); Eosinophils Percent Auto 2.2 % (0-4); Hematocrit 34.6 % (37.0-47.0); Hemoglobin 10.5 g/dl (12.0-16.0); Imm Gran Pct Auto 0.9 % (0.0-0.4); Lymphocytes Percent Auto 25.8 % (20-40); Mean Corpuscular HGB Conc 30.3 g/dl (31.0-35.0); Mean Corpuscular Hemoglobin 22.2 pg (27.0-33.0); Mean Corpuscular Volume 73.3 fL (80.0-98.0); Mean Platelet Volume 10.4 fL (9.4-12.3); Monocytes Absolute Auto 0.7 X10*3/uL (0.1-1.2); Monocytes Percent Auto 5.7 % (2-11); Neutrophils Absolute Auto 7.6 x10*3/uL (2.0-8.3); Neutrophils Percent Auto 65.1 % (45-73); Platelet Count 336 X10*3/uL (160-400); Red Blood Count 4.72 X10*6/uL (4.20-5.50); Red Cell Distribution Width 19.4 % (11.0-16.0); White Blood Count 11.7 X10*3/uL (4.8-10.8)
[2023-09-23 07:23] VITALS: BP 121/75; PULSE 77; RESP 16; TEMP 36.4; O2SAT 96
[2023-09-23 07:35] LABS: Glucose, Whole Blood 88 mg/dL (60-115)
[2023-09-23] MEDS: Enoxaparin Sodium 40 MG/0.4 ML SYRINGE SUBCUT (07:44)
[2023-09-23] MEDS: Metoprolol Tartrate 50 MG TABLET PO ×2 (07:45→21:02)
[2023-09-23] MEDS: DULoxetine HCl 60 MG CAPSULE.DR PO (07:46)
[2023-09-23] MEDS: amLODIPine Besylate 10 MG TABLET PO (07:46)
[2023-09-23] MEDS: Gabapentin 100 MG CAPSULE PO ×3 (07:46→21:01)
[2023-09-23] MEDS: 0.9 % Sodium Chloride Flush 3 ML SYRINGE IVFLUSH ×2 (07:46→21:03)
[2023-09-23] MEDS: hydrOXYzine HCL 50 MG TABLET PO ×2 (08:59→21:07)
[2023-09-23] MEDS: LORazepam 1 MG TABLET PO (08:59)
[2023-09-23 09:20] LABS: C Reactive Protein 0.81 mg/dL (< or = 0.50)
[2023-09-23] MEDS: polyethylene glycoL 3350 17 GM POWD.PACK PO (10:52)
[2023-09-23] MEDS: Colchicine 0.6 MG TABLET PO ×2 (10:52→21:01)
[2023-09-23 11:29] LABS: Glucose, Whole Blood 102 mg/dL (60-115)
--- NOTE | 2023-09-23 12:01 | P.CDIM_ITS ---
PROVIDER RESPONSE TEXT: To clarify, the appropriate diagnosis supported by the clinical indicators: Acute QUERY TEXT: PHYSICIAN'S DOCUMENTATION REQUEST Date of Query: 09/23/2023 08:50 AM EST Patient Name: Bonnie Hickman Admit Date: 09/22/2023 Dear Bharti Horner, A review of the medical record indicates additional documentation may be needed. Please review below and update the documentation accordingly. Clinical Indicators: PN-Lactic acidosis, appears chronic LA 4.7 H Clarify which of the following accurately represents the acuity of the lactic acidosis: Possible options might include: Acute Acute on chronic Chronic Other (explain) Clinically unable to determine (explain) Thank you, Pascale Sewell, CCS, CDIS Use of terms such as suspected, likely, concern for, or probable (associated with a specific diagnosi s that is being evaluated, monitored, or treated as if it exists) are acceptable and can be coded in the inpatient se tting, when documented at the time of discharge. Please use your independent medical judgment in providing your response. THIS QUERY IS PART OF THE PERMANENT MEDICAL RECORD
--- NOTE | 2023-09-23 12:04 | P.CDIM_ITS ---
PROVIDER RESPONSE TEXT: To clarify, the appropriate diagnosis supported by the clinical indicators: Clinically unable to determine (explain): unable to identify infection source to confirm sepsis. QUERY TEXT: PHYSICIAN'S DOCUMENTATION REQUEST Date of Query: 09/23/2023 08:54 AM EST Patient Name: Bonnie Hickman Admit Date: 09/22/2023 Dear Bharti Horner, A review of the medical record indicates additional documentation may be needed. Please review below and update the documentation accordingly. Clinical indicators: WBC 24.5 Temp 100.8 HR 109/114 LA 4.7 RR 20 IV empiric antibiotics Found to be febrile and meets Sirs criteria Please clarify which of the following most accurately describes the above abnormalities: Sirs Sepsis suspected, possible, probable, resolved etc. Other (explain) Clinically unable to determine (explain) Thank you, Pascale Sewell, CCS, CDIS Use of terms such as suspected, likely, concern for, or probable (associated with a specific diagnosi s that is being evaluated, monitored, or treated as if it exists) are acceptable and can be coded in the inpatient se tting, when documented at the time of discharge. Please use your independent medical judgment in providing your response. THIS QUERY IS PART OF THE PERMANENT MEDICAL RECORD
[2023-09-23] MEDS: Fluconazole 150 MG TABLET PO (13:08)
--- NOTE | 2023-09-23 13:38 | PM.CNGS ---
History of Present Illness Consult details Consult date: 09/23/23 Narrative: Patient is a 58-year-old female with a plethora of the current medical problems which include a longstanding history of chronic right-sided abdominal pain. Patient has had extensive and exhaustive workup including multiple CT scans, upper lower endoscopy, gastric emptying study. She is status post laparoscopic cholecystectomy. Current complaint is recurrence/persistence of her right-sided abdominal pain with associated nausea vomiting. Patient is Has a history of beingconstipated but says she is passing loose stool and diarrhea. Chart was reviewed patient evaluated. Patient was admitted 1 week ago where she underwent a very extensive evaluation by hospitalists, Gastroenterology, and surgery. On admission, patient has significant leukocytosis which is now normalizing to 11. PMFSH Past Medical History Medical History Essential hypertension Acute diarrhea Pre-op examination Cervical radiculopathy Rash of foot Kiera albicans infection Cervicalgia Left shoulder pain Environmental allergies Hospital discharge follow-up MARY on CPAP Elevated red blood cell count Screening for hyperlipidemia Chronic pain syndrome Lumbar pain Encounter for annual routine gynecological examination Multiple air fluid levels of small intestine determined by X-ray Abdominal bloating Hypothyroid Sleep apnea Abdominal cramping Edema Anxiety with depression Chronic pain (Unknown) Gastroparesis Left knee pain Hypothyroidism Bilateral shoulder pain Hyperlipidemia LDL goal <70 Degeneration, intervertebral disc, cervical Spondylosis of cervical spine at multiple levels without myelopathy Sleep apnea Renal calculi Incontinence Goiter Disc degeneration, lumbar Spondylosis of lumbar region without myelopathy or radiculopathy Arthropathy of facet joint Insomnia LUDY (generalized anxiety disorder) Moderately severe recurrent major depression Diabetes mellitus Chronic pain syndrome Morbid (severe) obesity due to excess calories Fibromyalgia Small bowel motility disorder Chronic idiopathic constipation Asthma Family History Family History Father Past heart attack Anxiety Mother MOF (multiple organ failure) Brother HIV (human immunodeficiency virus infection) Sister Ovarian cancer Lupus Bone cancer Uterine cancer Tumor Daughter Guillain-Spalding Sister Lupus History of open heart surgery Family/Other Depression FH: mental illness Maternal Aunt Breast cancer Maternal Aunt Tumor Surgical History Surgical History History of knee replacement procedure of right knee History of hernia surgery Hx of colonoscopy History of esophagogastroduodenoscopy (EGD) History of cholecystectomy Delivery by section History of hysterectomy Social History Social History Household Members: None Household Members Other:: Housing: Apartment Are you a primary morning caregiver to a significant other at home: No Do you presently have visiting nurse or other home services: Yes Alcohol intake: never Patient Tobacco Use Status: Never used Tobacco e-Cigarette/Vaping Use: Never Used Second Hand Smoke Exposure: Yes Advance Directives Date on File: 12/08/21 service: No Current occupational status: unemployed and disabled Cognitive needs: No Hearing needs: No Vision needs: No Meds Allergies Allergy/AdvReac Type Severity Reaction Status Date / Time Penicillins Allergy Severe swelling Verified 09/21/23 23:31 adhesive tape [ADHESIVE TAPE] Allergy Intermediate RASH Verified 09/21/23 23:31 amoxicillin [AMOXICILLIN] Allergy Intermediate RASH,SWELLI Verified 09/21/23 23:31 NG ibuprofen [From Motrin] Allergy Intermediate Hypertensio Verified 09/21/23 23:31 n latex Allergy Intermediate Rash Verified 09/21/23 23:31 Active Medications: Current Medications Acetaminophen (Acetaminophen 325 Mg Tablet) 650 mg PO Q6H PRN PRN Reason: Pain, Mild (Pain Scale 1-3) Last Admin: 09/22/23 17:15 Dose: 650 mg Albuterol Sulfate (Albuterol Sulfate 90 Mcg 8 Gm Inhaler) 1 puff INHALE RQ4H PRN PRN Reason: Shortness Of Breath Or Wheezing Amlodipine Besylate (Amlodipine Besylate 10 Mg Tablet) 10 mg PO DAILY RADHA; Protocol Last Admin: 09/23/23 07:46 Dose: 10 mg Atorvastatin Calcium (Atorvastatin Calcium 10 Mg Tablet) 10 mg PO BEDTIME RADHA Capsaicin (Capsaicin 0.025% Cream 60 Gm Tube) 1 appl TOPICAL TID PRN; Protocol PRN Reason: Nausea and Vomiting Clonidine HCl (Clonidine Hcl 0.1 Mg Tablet) 0.1 mg PO TID PRN; Protocol PRN Reason: anxiety Last Admin: 09/23/23 13:28 Dose: 0.1 mg Colchicine (Colchicine 0.6 Mg Tablet) 0.6 mg PO BID RADHA Last Admin: 09/23/23 10:52 Dose: 0.6 mg Dextrose (Dextrose 50 % 25 Gm/50 Ml Syringe) 25 gm IVPUSH Q15M PRN; Protocol PRN Reason: per Hypoglycemia Standing Ord. Dicyclomine HCl (Dicyclomine Hcl 10 Mg Capsule) 20 mg PO QID PRN PRN Reason: abdominal pain Diphenhydramine HCl (Diphenhydramine Hcl 25 Mg Capsule) 25 mg PO Q6H PRN PRN Reason: Itching Last Admin: 09/23/23 10:58 Dose: 25 mg Duloxetine HCl (Duloxetine Hcl 60 Mg Capsule.Dr) 60 mg PO DAILY [facility] Last Admin: 09/23/23 07:53 Dose: Not Given Enoxaparin Sodium (Enoxaparin Sodium 40 Mg/0.4 Ml Syringe) 40 mg SUBCUT Q24H [facility] Last Admin: 09/23/23 07:44 Dose: 40 mg Gabapentin (Gabapentin 100 Mg Capsule) 100 mg PO TID [facility] Last Admin: 09/23/23 13:28 Dose: 100 mg Glucose (Glucose Gel 15 Gm Gel..Gram.) 15 gm PO Q15M PRN; Protocol PRN Reason: per Hypoglycemia Standing Ord. Hydroxyzine HCl (Hydroxyzine Hcl 50 Mg Tablet) 50 mg PO TID PRN PRN Reason: itch Last Admin: 09/23/23 08:59 Dose: 50 mg Levofloxacin (Levaquin) 750 mg in 150 mls @ 100 mls/hr IV 2200 [facility] Last Infusion: 09/23/23 01:03 Dose: Infused Metronidazole (Flagyl) 500 mg in 100 mls @ 100 mls/hr IV 0600,1400,2200 [facility] Last Admin: 09/23/23 13:28 Dose: 100 mls/hr Insulin Glargine (Insulin Glargine,Hum.Rec.Anlog 100 Unit/Ml 10 Ml Vial) 12 unit SUBCUT BEDTIME [facility] Last Admin: 09/22/23 20:36 Dose: 12 unit Insulin Human Lispro (Insulin Lispro 100 Unit/Ml 3 Ml Vial) 0 unit SUBCUT QIDACHS [facility]; Protocol Last Admin: 09/23/23 12:34 Dose: Not Given Levothyroxine Sodium (Levothyroxine Sodium 112 Mcg Tablet) 112 mcg PO DAILY@0630 [facility] Last Admin: 09/23/23 04:40 Dose: 112 mcg Lorazepam (Lorazepam 1 Mg Tablet) 1 mg PO DAILY PRN PRN Reason: anxiety Last Admin: 09/23/23 08:59 Dose: 1 mg Meclizine HCl (Meclizine Hcl 25 Mg Tablet) 25 mg PO Q6H PRN PRN Reason: Vertigo Last Admin: 09/22/23 17:15 Dose: 25 mg Melatonin (Melatonin 3 Mg Tablet) 6 mg PO BEDTIME PRN PRN Reason: Insomnia Metoprolol Tartrate (Metoprolol Tartrate 50 Mg Tablet) 50 mg PO BID [facility]; Protocol Last Admin: 09/23/23 07:45 Dose: 50 mg Morphine Sulfate (Morphine Sulfate 2 Mg/Ml Cartridge) 2 mg IVPUSH Q4H PRN; Protocol PRN Reason: Pain, Severe (Pain Scale 7-10) Last Admin: 09/23/23 12:29 Dose: 2 mg Non-Formulary Medication (Rizatriptan) 5 mg PO ONCE PRN PRN Reason: Migraine Headache Non-Formulary Medication (Umeclidinium [Incruse Ellipta]) 1 inhalation INHALE DAILY [facility] Ondansetron HCl (Ondansetron Hcl 4 Mg/2 Ml Vial) 4 mg IVPUSH Q8H PRN PRN Reason: Nausea and Vomiting Last Admin: 09/22/23 09:47 Dose: 4 mg Pantoprazole Sodium (Pantoprazole Sodium 40 Mg/10 Ml Vial) 40 mg IVPUSH BID@0630,1630 [facility] Last Admin: 09/23/23 04:40 Dose: 40 mg Polyethylene Glycol (Polyethylene Glycol 3350 17 Gm Powd.Pack) 17 gm PO DAILY [facility] Last Admin: 09/23/23 10:52 Dose: 17 gm Senna (Sennosides 8.6 Mg Tablet) 17.2 mg PO BEDTIME PRN PRN Reason: constipation Sodium Chloride (0.9 % Sodium Chloride Flush 3 Ml Syringe) 3 ml IVFLUSH QSHIFT [facility] Last Admin: 09/23/23 07:46 Dose: 3 ml Trazodone HCl (Trazodone Hcl 50 Mg Tablet) 150 mg PO BEDTIME PRN PRN Reason: insomnia Vancomycin HCl (Vancomycin Hcl 125 Mg Capsule) 125 mg PO Q6H [facility] Last Admin: 09/23/23 13:28 Dose: 125 mg Home Medications Medication Instructions Recorded Confirmed Last Taken Type atorvastatin 10 mg tablet 10 mg PO BEDTIME 08/25/23 09/22/23 Unknown History clonidine HCl 0.1 mg tablet 0.1 mg PO TID PRN Anxiety 08/25/23 09/22/23 Unknown History doxepin 25 mg capsule 25 - 50 mg PO BEDTIME PRN insomnia 08/25/23 09/11/23 Unknown History hydroxyzine HCl 50 mg tablet 50 mg PO TID PRN itch 08/25/23 09/22/23 Unknown History insulin lispro 100 unit/mL 5 unit subcut TID 08/25/23 09/22/23 Unknown History subcutaneous solution levothyroxine 112 mcg tablet 112 mcg PO DAILY@0600 08/25/23 09/22/23 Unknown History rizatriptan 5 mg tablet 5 mg PO ONCE PRN Migraine Headache 08/25/23 09/22/23 Unknown History trazodone 150 mg tablet 150 mg PO BEDTIME PRN insomnia 08/25/23 09/22/23 Unknown History acetaminophen 650 mg 650 mg PO Q8H PRN arthritis 09/11/23 09/22/23 Unknown History tablet,extended release amlodipine 10 mg tablet 10 mg PO DAILY 09/11/23 09/22/23 Unknown History lorazepam 1 mg tablet 1 mg PO DAILY PRN ANXIETY 09/11/23 09/22/23 Unknown History umeclidinium 62.5 mcg/actuation 1 inh inhalation DAILY 09/11/23 09/22/23 Unknown History blister powder for inhalation (Incruse Ellipta) dicyclomine 10 mg capsule 20 mg PO QID PRN abdominal pain 09/22/23 09/22/23 Unknown History duloxetine 60 mg capsule,delayed 60 mg PO QAM 09/22/23 09/22/23 Unknown History release metoprolol tartrate 50 mg tablet 50 mg PO BID 09/22/23 09/22/23 Unknown History pantoprazole 40 mg tablet,delayed 40 mg PO BID 09/22/23 09/22/23 Unknown History release sennosides 8.6 mg tablet (senna) 17.2 mg PO BEDTIME PRN constipation 09/22/23 09/22/23 Unknown History Physical Exam Vital Signs: Vital Signs: Last Vital Signs Temp 97.6 F 09/23/23 07:23 Pulse 77 09/23/23 07:23 Resp 16 09/23/23 07:23 BP 121/75 09/23/23 07:23 Pulse Ox 96 09/23/23 07:23 O2 Del Method Room Air 09/23/23 07:23 BMI result Body Mass Index 39.1 GI: Other: Very corpulent abdomen. Laparoscopic gallbladder scars well healed. Right lower quadrant /right flank tenderness but without any evidence of any guarding, rebound, or rigidity. Results Labs 09/23/23 05:28 09/23/23 05:28 Labs: Abnormal lab results 09/22/23 09/23/23 Range/Units 14:29 05:28 WBC 11.7 H (4.8-10.8) X10*3/uL Hgb 10.5 L (12.0-16.0) g/dl Hct 34.6 L (37.0-47.0) % MCV 73.3 L (80.0-98.0) fL MCH 22.2 L (27.0-33.0) pg MCHC 30.3 L (31.0-35.0) g/dl RDW 19.4 H (11.0-16.0) % Immature Gran % (Auto) 0.9 H (0.0-0.4) % Abs Immat Gran (auto) 0.10 H (0.00-0.03) X10*3/uL Lactic Acid F/U @ 2Hr 2.4 H* (0.5-2.0) mmol/L C-Reactive Protein 0.81 H (< or = 0.50) mg/dL Short CBC 09/23/23 Range/Units 05:28 WBC 11.7 H (4.8-10.8) X10*3/uL Hgb 10.5 L (12.0-16.0) g/dl Hct 34.6 L (37.0-47.0) % Plt Count 336 (160-400) X10*3/uL BMP 09/23/23 05:28 Sodium 138 Potassium 3.7 Chloride 105 Carbon Dioxide 24 BUN 10 Creatinine 0.71 Calcium 9.1 D Urine 09/22/23 Range/Units 02:36 Urine Color Yellow Urine Appearance Cloudy Urine pH 6.5 (5.0-9.0) Ur Specific [place] 1.020 (1.005-1.025) Urine Protein 30 (1+) H (Neg-Trace) mg/dL Urine Glucose (UA) Negative (Negative) mg/dL All other labs normal. Assessment and Plan (1) RLQ abdominal pain: Status: Acute Plan At present, no precise etiology to the patient's symptoms have been elucidated. My current evaluation demonstrates no acute surgical issues or complaints, very similar to the evaluation done just last week by 1 of the other general surgeon. Recommendation is continue supportive care, consider GI consultation, and direct further therapy interventions by the patient's clinical course. Procedures Date of Service Date of Service: 09/23/23
--- NOTE | 2023-09-23 14:31 | P.PNIM_ITS ---
Subjective Subjective Date of Service: 09/23/23 Interval History: Seen in follow-up for intractable nausea and vomiting, abdominal pain Interval history: Patient continues with 10/10 diffuse abdominal pain, worse in the epigastrium, RLQ. Ongoing nausea without vomiting. Tolerating clears but does continue to have persistent nausea and abd pain. MOved bowels yesterday, no ongoing diarrhea. No recurrent fevers. Review of Systems Review of Systems: Yes all other systems are reviewed and are negative Physical Exam 2 Vital Signs: Vital Signs: Last Vital Signs Temp 97.6 F 09/23/23 07:23 Pulse 77 09/23/23 07:23 Resp 16 09/23/23 07:23 BP 121/75 09/23/23 07:23 Pulse Ox 96 09/23/23 07:23 O2 Del Method Room Air 09/23/23 07:23 BMI result Body Mass Index 39.1 Constitutional - Awake and Alert, No apparent distress Eyes - PERRLA, EOMI Cardiovascular - S1S2, RRR, No edema Respiratory - Normal lung expansion, Normal respiratory effort, No respiratory distress, CTA bilaterally Gastrointestinal - diffuse ttp, greatest in RLQ with deep palpation with voluntary guarding. ND; +BS, no rebound Extremities - no calf tenderness bilaterally, no swelling Skin - Warm/Dry Neurological - Alert & oriented x3 Psychological - Appropriate affect Objective Data Active Medications Acetaminophen (Acetaminophen 325 Mg Tablet) 650 mg PO Q6H PRN PRN Reason: Pain, Mild (Pain Scale 1-3) Last Admin: 09/22/23 17:15 Dose: 650 mg Documented By: CASS Albuterol Sulfate (Albuterol Sulfate 90 Mcg 8 Gm Inhaler) 1 puff INHALE RQ4H PRN PRN Reason: Shortness Of Breath Or Wheezing Amlodipine Besylate (Amlodipine Besylate 10 Mg Tablet) 10 mg PO DAILY RADHA; Protocol Last Admin: 09/23/23 07:46 Dose: 10 mg Documented By: FLACO Atorvastatin Calcium (Atorvastatin Calcium 10 Mg Tablet) 10 mg PO BEDTIME [facility] Capsaicin (Capsaicin 0.025% Cream 60 Gm Tube) 1 appl TOPICAL TID PRN; Protocol PRN Reason: Nausea and Vomiting Clonidine HCl (Clonidine Hcl 0.1 Mg Tablet) 0.1 mg PO TID PRN; Protocol PRN Reason: anxiety Last Admin: 09/23/23 13:28 Dose: 0.1 mg Documented By: FLACO Colchicine (Colchicine 0.6 Mg Tablet) 0.6 mg PO BID [facility] Last Admin: 09/23/23 10:52 Dose: 0.6 mg Documented By: FLACO Dextrose (Dextrose 50 % 25 Gm/50 Ml Syringe) 25 gm IVPUSH Q15M PRN; Protocol PRN Reason: per Hypoglycemia Standing Ord. Dicyclomine HCl (Dicyclomine Hcl 10 Mg Capsule) 20 mg PO QID PRN PRN Reason: abdominal pain Diphenhydramine HCl (Diphenhydramine Hcl 25 Mg Capsule) 25 mg PO Q6H PRN PRN Reason: Itching Last Admin: 09/23/23 10:58 Dose: 25 mg Documented By: FLACO Duloxetine HCl (Duloxetine Hcl 60 Mg Capsule.Dr) 60 mg PO DAILY [facility] Last Admin: 09/23/23 07:53 Dose: Not Given Documented By: FLACO Non-Admin Reason: Duplicate Order Enoxaparin Sodium (Enoxaparin Sodium 40 Mg/0.4 Ml Syringe) 40 mg SUBCUT Q24H [facility] Last Admin: 09/23/23 07:44 Dose: 40 mg Documented By: FLACO Gabapentin (Gabapentin 100 Mg Capsule) 100 mg PO TID [facility] Last Admin: 09/23/23 13:28 Dose: 100 mg Documented By: FLACO Glucose (Glucose Gel 15 Gm Gel..Gram.) 15 gm PO Q15M PRN; Protocol PRN Reason: per Hypoglycemia Standing Ord. Hydroxyzine HCl (Hydroxyzine Hcl 50 Mg Tablet) 50 mg PO TID PRN PRN Reason: itch Last Admin: 09/23/23 08:59 Dose: 50 mg Documented By: FLACO Levofloxacin (Levaquin) 750 mg in 150 mls @ 100 mls/hr IV 2200 [facility] Last Infusion: 09/23/23 01:03 Dose: Infused Documented By: CARLOS Metronidazole (Flagyl) 500 mg in 100 mls @ 100 mls/hr IV 0600,1400,2200 [facility] Last Admin: 09/23/23 13:28 Dose: 100 mls/hr Documented By: FLACO Insulin Glargine (Insulin Glargine,Hum.Rec.Anlog 100 Unit/Ml 10 Ml Vial) 12 unit SUBCUT BEDTIME [facility] Last Admin: 09/22/23 20:36 Dose: 12 unit Documented By: CARLOS Insulin Human Lispro (Insulin Lispro 100 Unit/Ml 3 Ml Vial) 0 unit SUBCUT QIDACHS [facility]; Protocol Last Admin: 09/23/23 12:34 Dose: Not Given Documented By: FLACO Non-Admin Reason: No Insulin Coverage Levothyroxine Sodium (Levothyroxine Sodium 112 Mcg Tablet) 112 mcg PO DAILY@0630 [facility] Last Admin: 09/23/23 04:40 Dose: 112 mcg Documented By: CARLOS Lorazepam (Lorazepam 1 Mg Tablet) 1 mg PO DAILY PRN PRN Reason: anxiety Last Admin: 09/23/23 08:59 Dose: 1 mg Documented By: FLACO Meclizine HCl (Meclizine Hcl 25 Mg Tablet) 25 mg PO Q6H PRN PRN Reason: Vertigo Last Admin: 09/22/23 17:15 Dose: 25 mg Documented By: CASS Melatonin (Melatonin 3 Mg Tablet) 6 mg PO BEDTIME PRN PRN Reason: Insomnia Metoprolol Tartrate (Metoprolol Tartrate 50 Mg Tablet) 50 mg PO BID [facility]; Protocol Last Admin: 09/23/23 07:45 Dose: 50 mg Documented By: FLACO Morphine Sulfate (Morphine Sulfate 2 Mg/Ml Cartridge) 2 mg IVPUSH Q4H PRN; Protocol PRN Reason: Pain, Severe (Pain Scale 7-10) Last Admin: 09/23/23 12:29 Dose: 2 mg Documented By: FLACO Non-Formulary Medication (Rizatriptan) 5 mg PO ONCE PRN PRN Reason: Migraine Headache Non-Formulary Medication (Umeclidinium [Incruse Ellipta]) 1 inhalation INHALE DAILY [facility] Ondansetron HCl (Ondansetron Hcl 4 Mg/2 Ml Vial) 4 mg IVPUSH Q8H PRN PRN Reason: Nausea and Vomiting Last Admin: 09/22/23 09:47 Dose: 4 mg Documented By: CASS Pantoprazole Sodium (Pantoprazole Sodium 40 Mg/10 Ml Vial) 40 mg IVPUSH BID@0630,1630 [facility] Last Admin: 09/23/23 04:40 Dose: 40 mg Documented By: CARLOS Polyethylene Glycol (Polyethylene Glycol 3350 17 Gm Powd.Pack) 17 gm PO DAILY [facility] Last Admin: 09/23/23 10:52 Dose: 17 gm Documented By: FLACO Senna (Sennosides 8.6 Mg Tablet) 17.2 mg PO BEDTIME PRN PRN Reason: constipation Sodium Chloride (0.9 % Sodium Chloride Flush 3 Ml Syringe) 3 ml IVFLUSH QSHIFT [facility] Last Admin: 09/23/23 07:46 Dose: 3 ml Documented By: FLACO Trazodone HCl (Trazodone Hcl 50 Mg Tablet) 150 mg PO BEDTIME PRN PRN Reason: insomnia Vancomycin HCl (Vancomycin Hcl 125 Mg Capsule) 125 mg PO Q6H [facility] Last Admin: 09/23/23 13:28 Dose: 125 mg Documented By: FLACO Labs 09/23/23 05:28 09/23/23 05:28 Labs: Laboratory Results - last 24 hr 09/22/23 09/22/23 09/22/23 14:29 16:03 16:58 MCV MCH MCHC RDW Plt Count MPV Immature Gran % (Auto) Neut % (Auto) Lymph % (Auto) [place] % (Auto) Eos % (Auto) Baso % (Auto) Lymph # (Auto) [place] # (Auto) Eos # (Auto) Baso # (Auto) Abs Immat Gran (auto) Absolute Neuts (auto) Absolute Nucleated RBC Nucleated RBC % (auto) Anion Gap Estim Creat Clear Calc Estimated GFR POC Glucose 106 Random Glucose Lactic Acid F/U @ 2Hr 2.4 H* Lactic Acid F/U @ 4Hr 1.9 Calcium C-Reactive Protein 09/22/23 09/23/23 09/23/23 18:57 05:28 07:11 MCV 73.3 L MCH 22.2 L MCHC 30.3 L RDW 19.4 H Plt Count 336 MPV 10.4 Immature Gran % (Auto) 0.9 H Neut % (Auto) 65.1 Lymph % (Auto) 25.8 [place] % (Auto) 5.7 Eos % (Auto) 2.2 Baso % (Auto) 0.3 Lymph # (Auto) 3.0 [place] # (Auto) 0.7 Eos # (Auto) 0.3 Baso # (Auto) 0.0 Abs Immat Gran (auto) 0.10 H Absolute Neuts (auto) 7.6 Absolute Nucleated RBC 0.000 Nucleated RBC % (auto) 0.0 Anion Gap 13 Estim Creat Clear Calc 113.6 Estimated GFR > 60 POC Glucose 99 88 Random Glucose 78 Lactic Acid F/U @ 2Hr Lactic Acid F/U @ 4Hr Calcium 9.1 D C-Reactive Protein 0.81 H 09/23/23 11:22 MCV MCH MCHC RDW Plt Count MPV Immature Gran % (Auto) Neut % (Auto) Lymph % (Auto) [place] % (Auto) Eos % (Auto) Baso % (Auto) Lymph # (Auto) [place] # (Auto) Eos # (Auto) Baso # (Auto) Abs Immat Gran (auto) Absolute Neuts (auto) Absolute Nucleated RBC Nucleated RBC % (auto) Anion Gap Estim Creat Clear Calc Estimated GFR POC Glucose 102 Random Glucose Lactic Acid F/U @ 2Hr Lactic Acid F/U @ 4Hr Calcium C-Reactive Protein Microbiology Microbiology Results: Microbiology 09/22/23 Unknown Urine Culture - Final Urine clean catch - Clean Catch Midstream Strep agalactiae (Grp B) 09/22/23 03:29 Blood Culture - Preliminary Blood - Venous No growth after 24 hours. 09/22/23 03:29 Blood Culture - Preliminary Blood - Venous No growth after 24 hours. Assessment and Plan (1) SIRS (systemic inflammatory response syndrome): Status: Acute (2) Vomiting: Status: Acute (3) Abdominal pain: Status: Acute (4) Lactic acidosis: Status: Acute Plan 58-year-old female with pertinent history of essential hypertension, mixed hyperlipidemia, mood disorder, insulin-dependent diabetes mellitus, hypothyroidism, gastroesophageal reflux disease, congestive heart failure with preserved ejection fraction, MARY on CPAP, asthma not on home oxygen admitted early this morning for intractable nausea, vomiting, and abdominal pain. Patient represents this admission wiht similar symptoms to prior admission. Again has been evaluated by general surgery and gastrolenterology without definitive diagnosis. Pt continues with 10/10 abd pain, primarily rlq and has not had any recurrent fevers. Also continues with persistent nausea though no further vomiting. # intractable N/V/D and abdominal pain with SIRS criteria -etiology unclear at this time -WBC trending down, mild techycardia. Afebrile -Given ongoing intractable abd pain with guarding and lactic acidosis, chest CTA abd/pelvis -Continue empiric levaquin and flagyl as SIRS criteria have resolved -Add IV PPI given PO intoleratance -Hold mesalamine due to recurrence of symptoms per GI -Resume p.o. vanco (pt discharged on 09/17 with positive cdiff gene but negative toxin- last dose 09/24 noon). Repeat GI panel and CDiff PCR not collected as patient has not had recurrent diarrhea. Canceled -Appreciate GI input. Gen surgery input appreciated -Check transvaginal/pelvis u/s and gonorrhea/chlamydia -Clear liquid diet as tolerated, advance as tolerated -antiemetics prn -capsaicin cream. Pain management p.r.n. -follow CBC, cultures #Acute lactic acidosis -etiology unclear. Resolved with IVF -CTA abd/pelvis negative #CDiff -Cdiff gene positive, toxin negative 09/13 -No ongoing diarrhea, complete po vanco 09/24 as ordered # insulin-dependent type 2 diabetes with hyperglycemia -dose adjust basal insulin -POC glucose -advanced diabetic diet -Humalog on sliding scale # hypothyroidism -continue levothyroxine # moderate persistent asthma -no acute exacerbation -continue maintenance inhalers, albuterol p.r.n. # mood disorder -continue home meds # heart failure with preserved ejection fraction -clinically euvolemic # hypertension -blood pressure uncontrolled -resume amlodipine 10 mg and metoprolol 50 mg b.i.d. #GERD -on iv ppi, change to po as tolerated DVT prophylaxis- lovenox Full code Pt requires ongoing inpt stay due to intractable abd pain with sirs and lactic acidosis criteria of unclear etiology despite extensive workup and expert consultation. SIRS criteria has resolved but requires ongoing pain management and advancement of diet. Will likely require stabilization of clinical symptoms with further work up outpt to continue investigating etiology of recurrent symptoms. Quality Stroke Does the patient have a stroke diagnosis?: No VTE Prior VTE?: No VTE Risk Level:: Medical - moderate - high VTE Device Contraindication: Treatment Not Indicated VTE Drug Contraindication: N/A - Med Ordered
[2023-09-23 15:03] VITALS: BP 101/60; PULSE 78; RESP 18; TEMP 37; O2SAT 92
[2023-09-23 16:09] LABS: Glucose, Whole Blood 81 mg/dL (60-115)
[2023-09-23 19:03] VITALS: BP 109/68; PULSE 72; RESP 18; TEMP 37; O2SAT 92
[2023-09-23 19:45] LABS: Glucose, Whole Blood 104 mg/dL (60-115)
[2023-09-23] MEDS: Atorvastatin Calcium 10 MG TABLET PO (21:01)
[2023-09-23] MEDS: Insulin Glargine,Hum.rec.anlog 100 UNIT/ML 10 ML VIAL 12 UNIT SUBCUT (21:02)
[2023-09-23] MEDS: Melatonin 3 MG TABLET 6 MG PO (21:07)
[2023-09-23] MEDS: levoFLOXacin/D5W 750 MG/150 ML PIGGYBACK 100 MG IV (22:14)
[2023-09-23 22:28] VITALS: RESP 18; O2SAT 95
[2023-09-24] MEDS: Throat Lozenge, Medicated LOZENGE 1 LOZENGE MUCOUS MEM (02:29)
[2023-09-24 04:00] VITALS: BP 101/56; PULSE 73; RESP 16; TEMP 37; O2SAT 96
[2023-09-24 04:51] LABS: MANUAL DIFF FLAG NO
[2023-09-24 04:55] LABS: Basophils Absolute Auto 0.1 X10*3/uL (0.0-0.2); Basophils Percent Auto 0.5 % (0-2); Eosinophils Absolute Auto 0.4 X10*3/uL (0.0-0.4); Eosinophils Percent Auto 4.2 % (0-4); Hematocrit 35.7 % (37.0-47.0); Hemoglobin 10.6 g/dl (12.0-16.0); Imm Gran Abs Auto 0.05 X10*3/uL (0.00-0.03); Imm Gran Pct Auto 0.5 % (0.0-0.4); Lymphocytes Absolute Auto 1.7 X10*3/uL (1.2-4.9); Lymphocytes Percent Auto 17.6 % (20-40); Mean Corpuscular HGB Conc 29.7 g/dl (31.0-35.0); Mean Corpuscular Volume 74.2 fL (80.0-98.0); Mean Platelet Volume 10.1 fL (9.4-12.3); Monocytes Absolute Auto 0.7 X10*3/uL (0.1-1.2); Monocytes Percent Auto 6.6 % (2-11); Neutrophils Absolute Auto 6.9 x10*3/uL (2.0-8.3); Neutrophils Percent Auto 70.6 % (45-73); Platelet Count 270 X10*3/uL (160-400); Red Blood Count 4.81 X10*6/uL (4.20-5.50); Red Cell Distribution Width 18.9 % (11.0-16.0); White Blood Count 9.8 X10*3/uL (4.8-10.8)
[2023-09-24 05:16] LABS: Anion Gap 13 (12-20); Blood Urea Nitrogen 17 mg/dL (9-16); Calcium 9.1 mg/dL (8.4-10.2); Carbon Dioxide 19 mmol/L (22-29); Chloride 105 mmol/L (96-108); Creatinine Clr Calc Pharmacy 93.8; Estimated Glomerular Filt Rate > 60; Glucose Random 103 mg/dL (60-115); Potassium 4.9 mmol/L (3.3-5.1); Sodium 132 mmol/L (135-145)
[2023-09-24] MEDS: Pantoprazole Sodium 40 MG/10 ML VIAL IVPUSH (06:25)
[2023-09-24] MEDS: Levothyroxine Sodium 112 MCG TABLET PO (06:25)
[2023-09-24] MEDS: metroNIDAZOLE/NS 500 MG/100 ML PIGGYBACK 100 MG IV ×3 (06:32→21:25)
[2023-09-24] MEDS: Morphine Sulfate 2 MG/ML CARTRIDGE IVPUSH ×4 (06:36→21:32)
[2023-09-24 07:24] LABS: Glucose, Whole Blood 108 mg/dL (60-115)
[2023-09-24 07:31] VITALS: BP 90/50
[2023-09-24 07:33] VITALS: PULSE 73; RESP 12; TEMP 36.6; O2SAT 92
[2023-09-24] MEDS: Enoxaparin Sodium 40 MG/0.4 ML SYRINGE SUBCUT (08:34)
[2023-09-24] MEDS: polyethylene glycoL 3350 17 GM POWD.PACK PO (08:34)
[2023-09-24] MEDS: Acetaminophen 325 MG TABLET 650 MG PO ×2 (08:34→23:45)
[2023-09-24] MEDS: hydrOXYzine HCL 50 MG TABLET PO ×2 (08:35→14:43)
[2023-09-24] MEDS: DULoxetine HCl 60 MG CAPSULE.DR PO (08:35)
[2023-09-24] MEDS: Gabapentin 100 MG CAPSULE PO ×3 (08:35→19:59)
[2023-09-24] MEDS: LORazepam 1 MG TABLET PO (08:36)
[2023-09-24] MEDS: 0.9 % Sodium Chloride Flush 3 ML SYRINGE IVFLUSH ×3 (08:36→20:00)
[2023-09-24] MEDS: Colchicine 0.6 MG TABLET PO ×2 (08:36→19:59)
--- NOTE | 2023-09-24 09:11 | P.PNIM_ITS ---
Subjective Subjective Date of Service: 09/24/23 Interval History: This history was taken in [place] from the patient. RLQ pain unchanged, not worse with taking liquids, no N/V, would like to try solids Review of Systems Review of Systems: Yes all other systems are reviewed and are negative Physical Exam 2 Vital Signs: Vital Signs: Last Vital Signs Temp 97.9 F 09/24/23 07:33 Pulse 73 09/24/23 07:33 Resp 12 09/24/23 07:33 BP 90/50 L 09/24/23 07:31 Pulse Ox 92 09/24/23 07:33 O2 Del Method Room Air 09/24/23 07:33 BMI result Body Mass Index 39.1 Gen: in no acute distress HEENT: sclera anicteric, moist mucus membranes Neck: supple Lungs: clear to auscultation bilaterally Heart: regular rate and rhythm, no murmurs Abd: soft, tender RLQ without rebound, non-distended Ext: no edema Skin: warm/well-perfused Neuro: alert and oriented x3, no focal findings Psych: appropriate affect Objective Data Active Medications Acetaminophen (Acetaminophen 325 Mg Tablet) 650 mg PO Q6H PRN PRN Reason: Pain, Mild (Pain Scale 1-3) Last Admin: 09/24/23 08:34 Dose: 650 mg Documented By: FLACO Albuterol Sulfate (Albuterol Sulfate 90 Mcg 8 Gm Inhaler) 1 puff INHALE RQ4H PRN PRN Reason: Shortness Of Breath Or Wheezing Amlodipine Besylate (Amlodipine Besylate 10 Mg Tablet) 10 mg PO DAILY [facility]; Protocol Last Admin: 09/24/23 08:35 Dose: Not Given Documented By: FLACO Non-Admin Reason: Decreased Blood Pressure Atorvastatin Calcium (Atorvastatin Calcium 10 Mg Tablet) 10 mg PO BEDTIME [facility] Last Admin: 09/23/23 21:01 Dose: 10 mg Documented By: CARLOS Benzocaine (Throat Lozenge, Medicated Lozenge) 1 lozenge MUCOUS MEM Q2H PRN PRN Reason: Sore Throat Last Admin: 09/24/23 02:29 Dose: 1 lozenge Documented By: CARLOS Capsaicin (Capsaicin 0.025% Cream 60 Gm Tube) 1 appl TOPICAL TID PRN; Protocol PRN Reason: Nausea and Vomiting Clonidine HCl (Clonidine Hcl 0.1 Mg Tablet) 0.1 mg PO TID PRN; Protocol PRN Reason: anxiety Last Admin: 09/23/23 21:55 Dose: 0.1 mg Documented By: CARLOS Colchicine (Colchicine 0.6 Mg Tablet) 0.6 mg PO BID [facility] Last Admin: 09/24/23 08:36 Dose: 0.6 mg Documented By: FLACO Dextrose (Dextrose 50 % 25 Gm/50 Ml Syringe) 25 gm IVPUSH Q15M PRN; Protocol PRN Reason: per Hypoglycemia Standing Ord. Dicyclomine HCl (Dicyclomine Hcl 10 Mg Capsule) 20 mg PO QID PRN PRN Reason: abdominal pain Diphenhydramine HCl (Diphenhydramine Hcl 25 Mg Capsule) 25 mg PO Q6H PRN PRN Reason: Itching Last Admin: 09/23/23 10:58 Dose: 25 mg Documented By: FLACO Duloxetine HCl (Duloxetine Hcl 60 Mg Capsule.Dr) 60 mg PO DAILY [facility] Last Admin: 09/24/23 08:35 Dose: 60 mg Documented By: FLACO Enoxaparin Sodium (Enoxaparin Sodium 40 Mg/0.4 Ml Syringe) 40 mg SUBCUT Q24H [facility] Last Admin: 09/24/23 08:34 Dose: 40 mg Documented By: FLACO Gabapentin (Gabapentin 100 Mg Capsule) 100 mg PO TID [facility] Last Admin: 09/24/23 08:35 Dose: 100 mg Documented By: FLACO Glucose (Glucose Gel 15 Gm Gel..Gram.) 15 gm PO Q15M PRN; Protocol PRN Reason: per Hypoglycemia Standing Ord. Hydroxyzine HCl (Hydroxyzine Hcl 50 Mg Tablet) 50 mg PO TID PRN PRN Reason: itch Last Admin: 09/24/23 08:35 Dose: 50 mg Documented By: FLACO Levofloxacin (Levaquin) 750 mg in 150 mls @ 100 mls/hr IV 2200 [facility] Last Infusion: 09/24/23 00:41 Dose: Infused Documented By: CARLOS Metronidazole (Flagyl) 500 mg in 100 mls @ 100 mls/hr IV 0600,1400,2200 [facility] Last Infusion: 09/24/23 08:36 Dose: Infused Documented By: FLACO Insulin Glargine (Insulin Glargine,Hum.Rec.Anlog 100 Unit/Ml 10 Ml Vial) 12 unit SUBCUT BEDTIME [facility] Last Admin: 09/23/23 21:02 Dose: 12 unit Documented By: CARLOS Insulin Human Lispro (Insulin Lispro 100 Unit/Ml 3 Ml Vial) 0 unit SUBCUT QIDACHS [facility]; Protocol Last Admin: 09/24/23 08:22 Dose: Not Given Documented By: FLACO Non-Admin Reason: No Insulin Coverage Levothyroxine Sodium (Levothyroxine Sodium 112 Mcg Tablet) 112 mcg PO DAILY@0630 [facility] Last Admin: 09/24/23 06:25 Dose: 112 mcg Documented By: CARLOS Lorazepam (Lorazepam 1 Mg Tablet) 1 mg PO DAILY PRN PRN Reason: anxiety Last Admin: 09/24/23 08:36 Dose: 1 mg Documented By: FLACO Meclizine HCl (Meclizine Hcl 25 Mg Tablet) 25 mg PO Q6H PRN PRN Reason: Vertigo Last Admin: 09/22/23 17:15 Dose: 25 mg Documented By: CASS Melatonin (Melatonin 3 Mg Tablet) 6 mg PO BEDTIME PRN PRN Reason: Insomnia Last Admin: 09/23/23 21:07 Dose: 6 mg Documented By: CARLOS Metoprolol Tartrate (Metoprolol Tartrate 50 Mg Tablet) 50 mg PO BID [facility]; Protocol Last Admin: 09/24/23 08:37 Dose: Not Given Documented By: FLACO Non-Admin Reason: Decreased Blood Pressure Morphine Sulfate (Morphine Sulfate 2 Mg/Ml Cartridge) 2 mg IVPUSH Q4H PRN; Protocol PRN Reason: Pain, Severe (Pain Scale 7-10) Last Admin: 09/24/23 06:36 Dose: 2 mg Documented By: CARLOS Non-Formulary Medication (Rizatriptan) 5 mg PO ONCE PRN PRN Reason: Migraine Headache Non-Formulary Medication (Umeclidinium [Incruse Ellipta]) 1 inhalation INHALE DAILY [facility] Ondansetron HCl (Ondansetron Hcl 4 Mg/2 Ml Vial) 4 mg IVPUSH Q8H PRN PRN Reason: Nausea and Vomiting Last Admin: 09/22/23 09:47 Dose: 4 mg Documented By: CASS Pantoprazole Sodium (Pantoprazole Sodium 40 Mg/10 Ml Vial) 40 mg IVPUSH BID@0630,1630 [facility] Last Admin: 09/24/23 06:25 Dose: 40 mg Documented By: CARLOS Polyethylene Glycol (Polyethylene Glycol 3350 17 Gm Powd.Pack) 17 gm PO DAILY [facility] Last Admin: 09/24/23 08:34 Dose: 17 gm Documented By: FLACO Senna (Sennosides 8.6 Mg Tablet) 17.2 mg PO BEDTIME PRN PRN Reason: constipation Sodium Chloride (0.9 % Sodium Chloride Flush 3 Ml Syringe) 3 ml IVFLUSH QSHIFT [facility] Last Admin: 09/24/23 08:36 Dose: 3 ml Documented By: FLACO Trazodone HCl (Trazodone Hcl 50 Mg Tablet) 150 mg PO BEDTIME PRN PRN Reason: insomnia Vancomycin HCl (Vancomycin Hcl 125 Mg Capsule) 125 mg PO Q6H [facility] Labs 09/24/23 04:29 09/24/23 04:29 Labs: Laboratory Results - last 24 hr 09/23/23 09/23/23 09/23/23 05:28 11:22 16:05 MCV MCH MCHC RDW Plt Count MPV Immature Gran % (Auto) Neut % (Auto) Lymph % (Auto) Day % (Auto) Eos % (Auto) Baso % (Auto) Lymph # (Auto) Day # (Auto) Eos # (Auto) Baso # (Auto) Abs Immat Gran (auto) Absolute Neuts (auto) Absolute Nucleated RBC Nucleated RBC % (auto) Anion Gap Estim Creat Clear Calc Estimated GFR POC Glucose 102 81 Random Glucose Calcium C-Reactive Protein 0.81 H 09/23/23 09/24/23 09/24/23 19:40 04:29 07:17 MCV 74.2 L MCH 22.0 L MCHC 29.7 L RDW 18.9 H Plt Count 270 MPV 10.1 Immature Gran % (Auto) 0.5 H Neut % (Auto) 70.6 Lymph % (Auto) 17.6 L Day % (Auto) 6.6 Eos % (Auto) 4.2 H Baso % (Auto) 0.5 Lymph # (Auto) 1.7 Day # (Auto) 0.7 Eos # (Auto) 0.4 Baso # (Auto) 0.1 Abs Immat Gran (auto) 0.05 H Absolute Neuts (auto) 6.9 Absolute Nucleated RBC 0.000 Nucleated RBC % (auto) 0.0 Anion Gap 13 Estim Creat Clear Calc 93.8 Estimated GFR > 60 POC Glucose 104 108 Random Glucose 103 Calcium 9.1 C-Reactive Protein Microbiology Microbiology Results: Microbiology 09/22/23 03:29 Blood Culture - Preliminary Blood - Venous No growth after 48 hours. 09/22/23 03:29 Blood Culture - Preliminary Blood - Venous No growth after 48 hours. 09/22/23 Unknown Urine Culture - Final Urine clean catch - Clean Catch Midstream Strep agalactiae (Grp B) Assessment and Plan (1) SIRS (systemic inflammatory response syndrome): Status: Acute (2) Vomiting: Status: Acute (3) Abdominal pain: Status: Acute (4) Lactic acidosis: Status: Acute Plan d3 58yo F with HTN, HLD, mood disorder, DM2, hypothyroidism, GERD, HFpEF, MARY on CPAP, asthma admitted with intractable N/V/abd pain, recent admission with similar symptoms, evaluated by GI + Gen Surg without any definitive diagnosis found to have SIRS criteria intractable N/V/abd pain/diarrhea with SIRS criteria + lactic acidosis - ?etiology - WBCs coming down, lactate normalized - continue empiric levofloxacin/metronidazole d3 - change IV to PO PPI - hold mesalamine per GI - resumed PO vancomycin (had positive Cdiff gene but negative toxin), end date is today - trial of solid diabetic diet DM2 with hyperglycemia - basal-bolus insulin hypothyroidism - continue LT4 moderate persistent asthma without acute exacerbation - continue controller + rescue inhalers chronic HFpEF HTN - continue amlodipine + metoprolol GERD - PPI neuropathy - gabapentin, duloxetine VTE ppx - LMWH dispo - eventual home In my clinical judgment, the patient requires continued inpatient hospitalization for the following reasons: abd pain, SIRS criteria Total time managing care of this patient today: 35 minutes. Quality Stroke Does the patient have a stroke diagnosis?: No VTE Prior VTE?: No VTE Risk Level:: Medical - moderate - high VTE Device Contraindication: Treatment Not Indicated VTE Drug Contraindication: N/A - Med Ordered
--- NOTE | 2023-09-24 10:39 | PM.PNGS ---
Subjective Subjective Date of Service: 09/24/23 Interval history: Continues to c/o RLQ pain, no better or worse. Tolerating liquids. Passing flatus, no BM. Physical Exam Vital Signs: Vital Signs: Last Vital Signs Temp 97.9 F 09/24/23 07:33 Pulse 73 09/24/23 07:33 Resp 12 09/24/23 07:33 BP 90/50 L 09/24/23 07:31 Pulse Ox 92 09/24/23 07:33 O2 Del Method Room Air 09/24/23 07:33 BMI result Body Mass Index 39.1 Const: General: comfortable, no acute distress and alert GI: Inspection: No distended Palpation (GI): Soft to palpation, Tenderness to palpation present (GI) in the RLQ (very mild), no guarding and not rigid Skin: General skin exam: no rashes or lesions noted Objective Data Active Medications Acetaminophen (Acetaminophen 325 Mg Tablet) 650 mg PO Q6H PRN PRN Reason: Pain, Mild (Pain Scale 1-3) Last Admin: 09/24/23 08:34 Dose: 650 mg Documented By: FLACO Albuterol Sulfate (Albuterol Sulfate 90 Mcg 8 Gm Inhaler) 1 puff INHALE RQ4H PRN PRN Reason: Shortness Of Breath Or Wheezing Amlodipine Besylate (Amlodipine Besylate 10 Mg Tablet) 10 mg PO DAILY [facility]; Protocol Last Admin: 09/24/23 08:35 Dose: Not Given Documented By: FLACO Non-Admin Reason: Decreased Blood Pressure Atorvastatin Calcium (Atorvastatin Calcium 10 Mg Tablet) 10 mg PO BEDTIME [facility] Last Admin: 09/23/23 21:01 Dose: 10 mg Documented By: CARLOS Benzocaine (Throat Lozenge, Medicated Lozenge) 1 lozenge MUCOUS MEM Q2H PRN PRN Reason: Sore Throat Last Admin: 09/24/23 02:29 Dose: 1 lozenge Documented By: CARLOS Capsaicin (Capsaicin 0.025% Cream 60 Gm Tube) 1 appl TOPICAL TID PRN; Protocol PRN Reason: Nausea and Vomiting Clonidine HCl (Clonidine Hcl 0.1 Mg Tablet) 0.1 mg PO TID PRN; Protocol PRN Reason: anxiety Last Admin: 09/23/23 21:55 Dose: 0.1 mg Documented By: CARLOS Colchicine (Colchicine 0.6 Mg Tablet) 0.6 mg PO BID [facility] Last Admin: 09/24/23 08:36 Dose: 0.6 mg Documented By: FLACO Dextrose (Dextrose 50 % 25 Gm/50 Ml Syringe) 25 gm IVPUSH Q15M PRN; Protocol PRN Reason: per Hypoglycemia Standing Ord. Dicyclomine HCl (Dicyclomine Hcl 10 Mg Capsule) 20 mg PO QID PRN PRN Reason: abdominal pain Diphenhydramine HCl (Diphenhydramine Hcl 25 Mg Capsule) 25 mg PO Q6H PRN PRN Reason: Itching Last Admin: 09/23/23 10:58 Dose: 25 mg Documented By: FLACO Duloxetine HCl (Duloxetine Hcl 60 Mg Capsule.Dr) 60 mg PO DAILY [facility] Last Admin: 09/24/23 08:35 Dose: 60 mg Documented By: FLACO Enoxaparin Sodium (Enoxaparin Sodium 40 Mg/0.4 Ml Syringe) 40 mg SUBCUT Q24H [facility] Last Admin: 09/24/23 08:34 Dose: 40 mg Documented By: FLACO Gabapentin (Gabapentin 100 Mg Capsule) 100 mg PO TID [facility] Last Admin: 09/24/23 08:35 Dose: 100 mg Documented By: FLAOC Glucose (Glucose Gel 15 Gm Gel..Gram.) 15 gm PO Q15M PRN; Protocol PRN Reason: per Hypoglycemia Standing Ord. Hydroxyzine HCl (Hydroxyzine Hcl 50 Mg Tablet) 50 mg PO TID PRN PRN Reason: itch Last Admin: 09/24/23 08:35 Dose: 50 mg Documented By: FLACO Levofloxacin (Levaquin) 750 mg in 150 mls @ 100 mls/hr IV 2200 [facility] Last Infusion: 09/24/23 00:41 Dose: Infused Documented By: CARLOS Metronidazole (Flagyl) 500 mg in 100 mls @ 100 mls/hr IV 0600,1400,2200 [facility] Last Infusion: 09/24/23 08:36 Dose: Infused Documented By: FLACO Insulin Glargine (Insulin Glargine,Hum.Rec.Anlog 100 Unit/Ml 10 Ml Vial) 12 unit SUBCUT BEDTIME [facility] Last Admin: 09/23/23 21:02 Dose: 12 unit Documented By: CARLOS Insulin Human Lispro (Insulin Lispro 100 Unit/Ml 3 Ml Vial) 0 unit SUBCUT QIDAS [facility]; Protocol Last Admin: 09/24/23 08:22 Dose: Not Given Documented By: FLACO Non-Admin Reason: No Insulin Coverage Levothyroxine Sodium (Levothyroxine Sodium 112 Mcg Tablet) 112 mcg PO DAILY@0630 [facility] Last Admin: 09/24/23 06:25 Dose: 112 mcg Documented By: CARLOS Lorazepam (Lorazepam 1 Mg Tablet) 1 mg PO DAILY PRN PRN Reason: anxiety Last Admin: 09/24/23 08:36 Dose: 1 mg Documented By: FLACO Meclizine HCl (Meclizine Hcl 25 Mg Tablet) 25 mg PO Q6H PRN PRN Reason: Vertigo Last Admin: 09/22/23 17:15 Dose: 25 mg Documented By: CASS Melatonin (Melatonin 3 Mg Tablet) 6 mg PO BEDTIME PRN PRN Reason: Insomnia Last Admin: 09/23/23 21:07 Dose: 6 mg Documented By: CARLOS Metoprolol Tartrate (Metoprolol Tartrate 50 Mg Tablet) 50 mg PO BID [facility]; Protocol Last Admin: 09/24/23 08:37 Dose: Not Given Documented By: FLACO Non-Admin Reason: Decreased Blood Pressure Morphine Sulfate (Morphine Sulfate 2 Mg/Ml Cartridge) 2 mg IVPUSH Q4H PRN; Protocol PRN Reason: Pain, Severe (Pain Scale 7-10) Last Admin: 09/24/23 10:28 Dose: 2 mg Documented By: FLACO Non-Formulary Medication (Rizatriptan) 5 mg PO ONCE PRN PRN Reason: Migraine Headache Non-Formulary Medication (Umeclidinium [Incruse Ellipta]) 1 inhalation INHALE DAILY [facility] Omeprazole (Omeprazole 20 Mg Capsule.Dr) 20 mg PO BID@0630,1630 [facility] Ondansetron HCl (Ondansetron Hcl 4 Mg/2 Ml Vial) 4 mg IVPUSH Q8H PRN PRN Reason: Nausea and Vomiting Last Admin: 09/22/23 09:47 Dose: 4 mg Documented By: CASS Polyethylene Glycol (Polyethylene Glycol 3350 17 Gm Powd.Pack) 17 gm PO DAILY [facility] Last Admin: 09/24/23 08:34 Dose: 17 gm Documented By: FLACO Senna (Sennosides 8.6 Mg Tablet) 17.2 mg PO BEDTIME PRN PRN Reason: constipation Sodium Chloride (0.9 % Sodium Chloride Flush 3 Ml Syringe) 3 ml IVFLUSH QSHIFT [facility] Last Admin: 09/24/23 08:36 Dose: 3 ml Documented By: FLACO Trazodone HCl (Trazodone Hcl 50 Mg Tablet) 150 mg PO BEDTIME PRN PRN Reason: insomnia Vancomycin HCl (Vancomycin Hcl 125 Mg Capsule) 125 mg PO Q6H [facility] Labs 09/24/23 04:29 09/24/23 04:29 Labs: Laboratory Results - last 24 hr 09/23/23 09/23/23 09/23/23 11:22 16:05 19:40 MCV MCH MCHC RDW Plt Count MPV Immature Gran % (Auto) Neut % (Auto) Lymph % (Auto) [place] % (Auto) Eos % (Auto) Baso % (Auto) Lymph # (Auto) [place] # (Auto) Eos # (Auto) Baso # (Auto) Abs Immat Gran (auto) Absolute Neuts (auto) Absolute Nucleated RBC Nucleated RBC % (auto) Anion Gap Estim Creat Clear Calc Estimated GFR POC Glucose 102 81 104 Random Glucose Calcium 09/24/23 09/24/23 04:29 07:17 MCV 74.2 L MCH 22.0 L MCHC 29.7 L RDW 18.9 H Plt Count 270 MPV 10.1 Immature Gran % (Auto) 0.5 H Neut % (Auto) 70.6 Lymph % (Auto) 17.6 L [place] % (Auto) 6.6 Eos % (Auto) 4.2 H Baso % (Auto) 0.5 Lymph # (Auto) 1.7 [place] # (Auto) 0.7 Eos # (Auto) 0.4 Baso # (Auto) 0.1 Abs Immat Gran (auto) 0.05 H Absolute Neuts (auto) 6.9 Absolute Nucleated RBC 0.000 Nucleated RBC % (auto) 0.0 Anion Gap 13 Estim Creat Clear Calc 93.8 Estimated GFR > 60 POC Glucose 108 Random Glucose 103 Calcium 9.1 Microbiology Microbiology Results: Microbiology 09/22/23 03:29 Blood Culture - Preliminary Blood - Venous No growth after 48 hours. 09/22/23 03:29 Blood Culture - Preliminary Blood - Venous No growth after 48 hours. 09/22/23 Unknown Urine Culture - Final Urine clean catch - Clean Catch Midstream Strep agalactiae (Grp B) Procedures Date of Service Date of Service: 09/24/23 Progress Note: A&P Assessment and plan (1) RLQ abdominal pain: Status: Acute Plan Abdomen remains benign, unclear etiology of chronic RLQ abd pain. No surgical intervention currently warranted. Continue supportive measures, advance diet as tolerated, bowel regimen. Time Spent With Patient Time: Total time managing care of this patient today ____ minutes. Quality Stroke Does the patient have a stroke diagnosis?: No VTE Prior VTE?: No VTE Risk Level:: Medical - moderate - high VTE Device Contraindication: Treatment Not Indicated VTE Drug Contraindication: N/A - Med Ordered
--- NOTE | 2023-09-24 10:42 | P.PNGS_ITS ---
Subjective Subjective Date of Service: 09/24/23 Interval history: Patient complaining of multiple areas of pain including right side of abdomen, shoulders, and lower extremities. She passed some flatus. She is currently taking MiraLax. She tolerated her diet. Physical Exam 2 Vital Signs: Vital Signs: Last Vital Signs Temp 97.9 F 09/24/23 07:33 Pulse 73 09/24/23 07:33 Resp 12 09/24/23 07:33 BP 90/50 L 09/24/23 07:31 Pulse Ox 92 09/24/23 07:33 O2 Del Method Room Air 09/24/23 07:33 BMI result Body Mass Index 39.1 GI: Other: Abdomen corpulent, soft, mild right lower quadrant tenderness but without any evidence of any guarding, rebound, or rigidity. Objective Data Active Medications Acetaminophen (Acetaminophen 325 Mg Tablet) 650 mg PO Q6H PRN PRN Reason: Pain, Mild (Pain Scale 1-3) Last Admin: 09/24/23 08:34 Dose: 650 mg Documented By: FLACO Albuterol Sulfate (Albuterol Sulfate 90 Mcg 8 Gm Inhaler) 1 puff INHALE RQ4H PRN PRN Reason: Shortness Of Breath Or Wheezing Amlodipine Besylate (Amlodipine Besylate 10 Mg Tablet) 10 mg PO DAILY [facility]; Protocol Last Admin: 09/24/23 08:35 Dose: Not Given Documented By: FLACO Non-Admin Reason: Decreased Blood Pressure Atorvastatin Calcium (Atorvastatin Calcium 10 Mg Tablet) 10 mg PO BEDTIME [facility] Last Admin: 09/23/23 21:01 Dose: 10 mg Documented By: CARLOS Benzocaine (Throat Lozenge, Medicated Lozenge) 1 lozenge MUCOUS MEM Q2H PRN PRN Reason: Sore Throat Last Admin: 09/24/23 02:29 Dose: 1 lozenge Documented By: CARLOS Capsaicin (Capsaicin 0.025% Cream 60 Gm Tube) 1 appl TOPICAL TID PRN; Protocol PRN Reason: Nausea and Vomiting Clonidine HCl (Clonidine Hcl 0.1 Mg Tablet) 0.1 mg PO TID PRN; Protocol PRN Reason: anxiety Last Admin: 09/23/23 21:55 Dose: 0.1 mg Documented By: CARLOS Colchicine (Colchicine 0.6 Mg Tablet) 0.6 mg PO BID [facility] Last Admin: 09/24/23 08:36 Dose: 0.6 mg Documented By: FLACO Dextrose (Dextrose 50 % 25 Gm/50 Ml Syringe) 25 gm IVPUSH Q15M PRN; Protocol PRN Reason: per Hypoglycemia Standing Ord. Dicyclomine HCl (Dicyclomine Hcl 10 Mg Capsule) 20 mg PO QID PRN PRN Reason: abdominal pain Diphenhydramine HCl (Diphenhydramine Hcl 25 Mg Capsule) 25 mg PO Q6H PRN PRN Reason: Itching Last Admin: 09/23/23 10:58 Dose: 25 mg Documented By: FLACO Duloxetine HCl (Duloxetine Hcl 60 Mg Capsule.Dr) 60 mg PO DAILY [facility] Last Admin: 09/24/23 08:35 Dose: 60 mg Documented By: FLACO Enoxaparin Sodium (Enoxaparin Sodium 40 Mg/0.4 Ml Syringe) 40 mg SUBCUT Q24H [facility] Last Admin: 09/24/23 08:34 Dose: 40 mg Documented By: FLACO Gabapentin (Gabapentin 100 Mg Capsule) 100 mg PO TID [facility] Last Admin: 09/24/23 08:35 Dose: 100 mg Documented By: FLACO Glucose (Glucose Gel 15 Gm Gel..Gram.) 15 gm PO Q15M PRN; Protocol PRN Reason: per Hypoglycemia Standing Ord. Hydroxyzine HCl (Hydroxyzine Hcl 50 Mg Tablet) 50 mg PO TID PRN PRN Reason: itch Last Admin: 09/24/23 08:35 Dose: 50 mg Documented By: FLACO Levofloxacin (Levaquin) 750 mg in 150 mls @ 100 mls/hr IV 2200 [facility] Last Infusion: 09/24/23 00:41 Dose: Infused Documented By: CARLOS Metronidazole (Flagyl) 500 mg in 100 mls @ 100 mls/hr IV 0600,1400,2200 [facility] Last Infusion: 09/24/23 08:36 Dose: Infused Documented By: FLACO Insulin Glargine (Insulin Glargine,Hum.Rec.Anlog 100 Unit/Ml 10 Ml Vial) 12 unit SUBCUT BEDTIME [facility] Last Admin: 09/23/23 21:02 Dose: 12 unit Documented By: CARLOS Insulin Human Lispro (Insulin Lispro 100 Unit/Ml 3 Ml Vial) 0 unit SUBCUT QIDAS [facility]; Protocol Last Admin: 09/24/23 08:22 Dose: Not Given Documented By: FLACO Non-Admin Reason: No Insulin Coverage Levothyroxine Sodium (Levothyroxine Sodium 112 Mcg Tablet) 112 mcg PO DAILY@0630 [facility] Last Admin: 09/24/23 06:25 Dose: 112 mcg Documented By: CARLOS Lorazepam (Lorazepam 1 Mg Tablet) 1 mg PO DAILY PRN PRN Reason: anxiety Last Admin: 09/24/23 08:36 Dose: 1 mg Documented By: FLACO Meclizine HCl (Meclizine Hcl 25 Mg Tablet) 25 mg PO Q6H PRN PRN Reason: Vertigo Last Admin: 09/22/23 17:15 Dose: 25 mg Documented By: CASS Melatonin (Melatonin 3 Mg Tablet) 6 mg PO BEDTIME PRN PRN Reason: Insomnia Last Admin: 09/23/23 21:07 Dose: 6 mg Documented By: CARLOS Metoprolol Tartrate (Metoprolol Tartrate 50 Mg Tablet) 50 mg PO BID [facility]; Protocol Last Admin: 09/24/23 08:37 Dose: Not Given Documented By: FLACO Non-Admin Reason: Decreased Blood Pressure Morphine Sulfate (Morphine Sulfate 2 Mg/Ml Cartridge) 2 mg IVPUSH Q4H PRN; Protocol PRN Reason: Pain, Severe (Pain Scale 7-10) Last Admin: 09/24/23 10:28 Dose: 2 mg Documented By: FLACO Non-Formulary Medication (Rizatriptan) 5 mg PO ONCE PRN PRN Reason: Migraine Headache Non-Formulary Medication (Umeclidinium [Incruse Ellipta]) 1 inhalation INHALE DAILY [facility] Omeprazole (Omeprazole 20 Mg Capsule.Dr) 20 mg PO BID@0630,1630 [facility] Ondansetron HCl (Ondansetron Hcl 4 Mg/2 Ml Vial) 4 mg IVPUSH Q8H PRN PRN Reason: Nausea and Vomiting Last Admin: 09/22/23 09:47 Dose: 4 mg Documented By: CASS Polyethylene Glycol (Polyethylene Glycol 3350 17 Gm Powd.Pack) 17 gm PO DAILY [facility] Last Admin: 09/24/23 08:34 Dose: 17 gm Documented By: FLACO Senna (Sennosides 8.6 Mg Tablet) 17.2 mg PO BEDTIME PRN PRN Reason: constipation Sodium Chloride (0.9 % Sodium Chloride Flush 3 Ml Syringe) 3 ml IVFLUSH QSHIFT [facility] Last Admin: 09/24/23 08:36 Dose: 3 ml Documented By: FLACO Trazodone HCl (Trazodone Hcl 50 Mg Tablet) 150 mg PO BEDTIME PRN PRN Reason: insomnia Vancomycin HCl (Vancomycin Hcl 125 Mg Capsule) 125 mg PO Q6H [facility] Labs 09/24/23 04:29 09/24/23 04:29 Labs: Laboratory Results - last 24 hr 09/23/23 09/23/23 09/23/23 11:22 16:05 19:40 MCV MCH MCHC RDW Plt Count MPV Immature Gran % (Auto) Neut % (Auto) Lymph % (Auto) Carbon % (Auto) Eos % (Auto) Baso % (Auto) Lymph # (Auto) Carbon # (Auto) Eos # (Auto) Baso # (Auto) Abs Immat Gran (auto) Absolute Neuts (auto) Absolute Nucleated RBC Nucleated RBC % (auto) Anion Gap Estim Creat Clear Calc Estimated GFR POC Glucose 102 81 104 Random Glucose Calcium 09/24/23 09/24/23 04:29 07:17 MCV 74.2 L MCH 22.0 L MCHC 29.7 L RDW 18.9 H Plt Count 270 MPV 10.1 Immature Gran % (Auto) 0.5 H Neut % (Auto) 70.6 Lymph % (Auto) 17.6 L Carbon % (Auto) 6.6 Eos % (Auto) 4.2 H Baso % (Auto) 0.5 Lymph # (Auto) 1.7 Carbon # (Auto) 0.7 Eos # (Auto) 0.4 Baso # (Auto) 0.1 Abs Immat Gran (auto) 0.05 H Absolute Neuts (auto) 6.9 Absolute Nucleated RBC 0.000 Nucleated RBC % (auto) 0.0 Anion Gap 13 Estim Creat Clear Calc 93.8 Estimated GFR > 60 POC Glucose 108 Random Glucose 103 Calcium 9.1 Microbiology Microbiology Results: Microbiology 09/22/23 03:29 Blood Culture - Preliminary Blood - Venous No growth after 48 hours. 09/22/23 03:29 Blood Culture - Preliminary Blood - Venous No growth after 48 hours. 09/22/23 Unknown Urine Culture - Final Urine clean catch - Clean Catch Midstream Strep agalactiae (Grp B) Procedures Date of Service Date of Service: 09/24/23 Progress Note: A&P Assessment and plan (1) RLQ abdominal pain: Status: Acute Plan A present , no acute surgical issues. Advanced diet as tolerated, out of bed, incentive spirometry. Will follow-up p.r.n. Time Spent With Patient Time: Total time managing care of this patient today ____ minutes. Quality Stroke Does the patient have a stroke diagnosis?: No VTE Prior VTE?: No VTE Risk Level:: Medical - moderate - high VTE Device Contraindication: Treatment Not Indicated VTE Drug Contraindication: N/A - Med Ordered
[2023-09-24 11:33] LABS: Glucose, Whole Blood 87 mg/dL (60-115)
--- NOTE | 2023-09-24 12:25 | MHC.CM.PN ---
PLAN IS ADVANCE DIET DISCHARGE EXPECTED Wednesday09/25/23.
[2023-09-24] MEDS: vancomycin HCL 125 MG CAPSULE PO ×3 (13:25→23:45)
[2023-09-24] MEDS: cloNIDine HCL 0.1 MG TABLET PO ×2 (14:43→21:32)
[2023-09-24 15:17] VITALS: BP 102/60; PULSE 77; RESP 18; TEMP 36.4; O2SAT 95
[2023-09-24 16:02] LABS: Glucose, Whole Blood 110 mg/dL (60-115)
[2023-09-24] MEDS: Omeprazole 20 MG CAPSULE.DR PO (17:47)
[2023-09-24 18:43] VITALS: BP 104/55; PULSE 84; RESP 18; TEMP 36.3; O2SAT 94
[2023-09-24] MEDS: Atorvastatin Calcium 10 MG TABLET PO (19:59)
[2023-09-24 20:28] LABS: Glucose, Whole Blood 123 mg/dL (60-115)
[2023-09-24] MEDS: Insulin Glargine,Hum.rec.anlog 100 UNIT/ML 10 ML VIAL 12 UNIT SUBCUT (21:25)
[2023-09-24 22:23] VITALS: RESP 18; O2SAT 95
[2023-09-24] MEDS: levoFLOXacin/D5W 750 MG/150 ML PIGGYBACK 100 MG IV (22:46)
[2023-09-25] MEDS: Morphine Sulfate 2 MG/ML CARTRIDGE IVPUSH ×2 (02:39→06:33)
[2023-09-25 02:59] VITALS: BP 110/59; PULSE 88; RESP 18; TEMP 35.7; O2SAT 98
[2023-09-25] MEDS: vancomycin HCL 125 MG CAPSULE PO (05:29)
[2023-09-25] MEDS: metroNIDAZOLE/NS 500 MG/100 ML PIGGYBACK 100 MG IV (05:29)
[2023-09-25] MEDS: Levothyroxine Sodium 112 MCG TABLET PO (05:29)
[2023-09-25] MEDS: Omeprazole 20 MG CAPSULE.DR PO (05:29)
[2023-09-25 06:04] LABS: Alanine Aminotransferase 13 U/L (0-31); Albumin Level 3.3 g/dL (3.5-5.0); Alkaline Phosphatase 81 U/L (39-117); Anion Gap 12 (12-20); Aspartate Amino Transferase 15 U/L (5-31); Bilirubin Total 0.3 mg/dL (0.0-1.0); Blood Urea Nitrogen 14 mg/dL (9-16); Calcium 8.8 mg/dL (8.4-10.2); Carbon Dioxide 25 mmol/L (22-29); Chloride 104 mmol/L (96-108); Creatinine Clr Calc Pharmacy 104.7; Estimated Glomerular Filt Rate > 60; Glucose Random 97 mg/dL (60-115); Potassium 4.2 mmol/L (3.3-5.1); Sodium 137 mmol/L (135-145); Total Protein 6.4 g/dL (6.5-8.0)
[2023-09-25] MEDS: hydrOXYzine HCL 50 MG TABLET PO (06:39)
[2023-09-25 07:38] VITALS: BP 116/56; PULSE 80; RESP 20; TEMP 36.4; O2SAT 95
[2023-09-25 07:56] LABS: Glucose, Whole Blood 81 mg/dL (60-115)
--- NOTE | 2023-09-25 08:43 | PM.DS ---
DS: Providers Provider Date of Service: 09/25/23 Date of admission: 09/22/23 02:30 Date of discharge: 09/25/23 Primary care physician: Jenny Bell MD Consults: 09/22/23 02:30 Consult to Gastroenterology Routine Consulting Provider: Bunny Ballard Reason for consultation: Intractable vomiting and diarrhea 09/23/23 07:15 Consult to General Surgery Routine Consulting Provider: [facility] General Surgeons Reason for consultation: intractable abd pain, n/v DS: Diagnosis Discharge Diagnosis (1) RLQ abdominal pain: Status: Acute (2) SIRS (systemic inflammatory response syndrome): Status: Acute DS: Summary Hospital Course Hospital Course: From the history and physical by the admitting hospitalist, Re Boothe MD, 09/22/23: This is a 58-year-old female with pertinent history of essential hypertension, mixed hyperlipidemia, mood disorder, insulin-dependent diabetes mellitus, hypothyroidism, gastroesophageal reflux disease, congestive heart failure with preserved ejection fraction, MARY on CPAP, asthma not on home oxygen who presents to the emergency department for evaluation of abdominal pain, intractable vomiting and diarrhea. Of note, patient was recently admitted on 09/11 and discharged on 09/17 with persistent abdominal pain, vomiting and diarrhea. Patient got 2 CT scans which did not show any acute finding. Patient was also seen by GI and surgery during previous admission and underwent upper endoscopy which showed esophagitis and colonoscopy which showed colonic dysmotility, internal hemorrhoids and cecal polyp. Patient was discharged with p.o. mesalamine and p.o. vancomycin. Patient states her symptoms began to come back after discharge. She had progressive worsening of her symptoms over the last 10 days. On the day of presentation, patient had severe right-sided abdominal pain which was associated with multiple episodes of nonbloody emesis and multiple episodes of nonbloody diarrhea. She stated that she was unable to tolerate p.o. intake. Ate bread and lemonade for lunch and boiled clams for dinner. No fever or chills. No chest discomfort, palpitations, shortness of breath, changes in urinary habits. In the emergency department, patient with multiple episodes of vomiting and diarrhea. Also was found to be febrile at 100.8 58yo F with HTN, HLD, mood disorder, DM2 [recent A1c 6.4], hypothyroidism, GERD, HFpEF, MARY on CPAP, and asthma. She was admitted to the medical-surgical floor with intractable N/V/abd pain. She had recently been admitted with similar symptoms and evaluated by GI + Gen Surg without any definitive diagnosis. Colonoscopy on 09/17 had revealed only a tubular adenoma in the cecum; biopsies of colonic mucosa were otherwise negative. This time she was found to have SIRS criteria [tachycardia, leukocytosis with WBCs 24.5] and lactic acidosis. She was started on empiric levofloxacin + metronidazole and SIRS physiology, including leukocytosis, resolved, along with lactic acidosis. Again, Gastroenterology and Surgery were consulted but no specific diagnosis was made. Her diet was gradually advanced with good tolerance and her pain improved. She completed PO vancomycin as recommended from last admission, when she was found to have positive C.difficile gene but negative toxin, but ultimately, this was likely colonization rather than true infection. She was discharged on 3 more days of oral levofloxacin + metronidazole and should follow up with Gastroenterology and Primary Care in 1-2 weeks. Time Attestation Discharge coordination time: Greater than 30 minutes Quality: Safe Use of Opioids Does Pt have an Active Cancer Diagnosis on the Problem List?: No Quality: Stroke Does the patient have a stroke diagnosis?: No Physical Exam Vital Signs: Vital Signs: Last Vital Signs Temp 97.6 F 09/25/23 07:38 Pulse 80 09/25/23 07:38 Resp 20 09/25/23 07:38 BP 116/56 L 09/25/23 07:38 Pulse Ox 95 09/25/23 07:38 O2 Del Method Room Air 09/25/23 07:38 BMI result Body Mass Index 39.1 Gen: in no acute distress HEENT: sclera anicteric, moist mucus membranes Neck: supple Lungs: clear to auscultation bilaterally Heart: regular rate and rhythm, no murmurs Abd: soft, RLQ mildly tender without rebound, non-distended, obese Ext: no edema Skin: warm/well-perfused Neuro: alert and oriented x3, no focal findings Psych: appropriate affect DS: Data Data Completed and Pending Completed studies during hospitalization [Text1]: Laboratory Results WBC 9.8 X10*3/uL (4.8-10.8) 09/24/23 04:29 RBC 4.81 X10*6/uL (4.20-5.50) 09/24/23 04:29 Hgb 10.6 g/dl (12.0-16.0) L 09/24/23 04:29 Hct 35.7 % (37.0-47.0) L 09/24/23 04:29 MCV 74.2 fL (80.0-98.0) L 09/24/23 04:29 MCH 22.0 pg (27.0-33.0) L 09/24/23 04:29 MCHC 29.7 g/dl (31.0-35.0) L 09/24/23 04:29 RDW 18.9 % (11.0-16.0) H 09/24/23 04:29 Plt Count 270 X10*3/uL (160-400) 09/24/23 04:29 MPV 10.1 fL (9.4-12.3) 09/24/23 04:29 Immature Gran % (Auto) 0.5 % (0.0-0.4) H 09/24/23 04:29 Neut % (Auto) 70.6 % (45-73) 09/24/23 04:29 Lymph % (Auto) 17.6 % (20-40) L 09/24/23 04:29 [place] % (Auto) 6.6 % (2-11) 09/24/23 04:29 Eos % (Auto) 4.2 % (0-4) H 09/24/23 04:29 Baso % (Auto) 0.5 % (0-2) 09/24/23 04:29 Lymph # (Auto) 1.7 X10*3/uL (1.2-4.9) 09/24/23 04:29 [place] # (Auto) 0.7 X10*3/uL (0.1-1.2) 09/24/23 04:29 Eos # (Auto) 0.4 X10*3/uL (0.0-0.4) 09/24/23 04:29 Baso # (Auto) 0.1 X10*3/uL (0.0-0.2) 09/24/23 04:29 Abs Immat Gran (auto) 0.05 X10*3/uL (0.00-0.03) H 09/24/23 04:29 Absolute Neuts (auto) 6.9 x10*3/uL (2.0-8.3) 09/24/23 04:29 Absolute Nucleated RBC 0.000 X10*3/uL (0.0-0.012) 09/24/23 04:29 Nucleated RBC % (auto) 0.0 /100WBC (0.0-0.2) 09/24/23 04:29 Smear Tech's Comments VERIFIED 09/22/23 00:46 Hold Purple Top SEE NOTE 09/25/23 05:08 VBG pH 7.45 (7.32-7.43) H 09/22/23 12:17 VBG pCO2 35 mmHg 09/22/23 12:17 VBG pO2 70 mmHg 09/22/23 12:17 VBG HCO3 25 mmol/L (22-26) 09/22/23 12:17 VBG O2 Saturation 93.0 % 09/22/23 12:17 VBG Base Excess 1.6 mmol/L 09/22/23 12:17 Sodium 137 mmol/L (135-145) 09/25/23 05:08 Potassium 4.2 mmol/L (3.3-5.1) 09/25/23 05:08 Chloride 104 mmol/L (96-108) 09/25/23 05:08 Carbon Dioxide 25 mmol/L (22-29) 09/25/23 05:08 Anion Gap 12 (12-20) 09/25/23 05:08 BUN 14 mg/dL (9-16) 09/25/23 05:08 Creatinine 0.77 mg/dL (0.5-1.4) 09/25/23 05:08 Estim Creat Clear Calc 104.7 09/25/23 05:08 Estimated GFR > 60 09/25/23 05:08 POC Glucose 81 mg/dL (60-115) 09/25/23 07:32 Random Glucose 97 mg/dL (60-115) 09/25/23 05:08 Lactic Acid 2.4 mmol/L (0.5-2.0) H* 09/22/23 12:10 Lactic Acid F/U @ 2Hr 2.4 mmol/L (0.5-2.0) H* 09/22/23 14:29 Lactic Acid F/U @ 4Hr 1.9 mmol/L (0.5-2.0) 09/22/23 16:58 Calcium 8.8 mg/dL (8.4-10.2) 09/25/23 05:08 Total Bilirubin 0.3 mg/dL (0.0-1.0) 09/25/23 05:08 AST 15 U/L (5-31) 09/25/23 05:08 ALT 13 U/L (0-31) 09/25/23 05:08 Alkaline Phosphatase 81 U/L (39-117) 09/25/23 05:08 C-Reactive Protein 0.81 mg/dL (< or = 0.50) H 09/23/23 05:28 Total Protein 6.4 g/dL (6.5-8.0) L 09/25/23 05:08 Albumin 3.3 g/dL (3.5-5.0) L 09/25/23 05:08 Lipase 78 U/L (8-78) 09/22/23 00:46 Lipase Cancelled 09/22/23 00:46 TSH 2.60 uIU/mL (0.32-4.0) 09/22/23 00:46 Urine Color Yellow 09/22/23 02:36 Urine Appearance Cloudy 09/22/23 02:36 Urine pH 6.5 (5.0-9.0) 09/22/23 02:36 Ur Specific [place] 1.020 (1.005-1.025) 09/22/23 02:36 Urine Protein 30 (1+) mg/dL (Neg-Trace) H 09/22/23 02:36 Urine Glucose (UA) Negative mg/dL (Negative) 09/22/23 02:36 Urine Ketones Trace mg/dL (Negative) 09/22/23 02:36 Urine Blood Negative (Negative) 09/22/23 02:36 Urine Nitrite Negative (Negative) 09/22/23 02:36 Ur Leukocyte Esterase Small (1+) (Negative) H 09/22/23 02:36 Urine RBC 3-5 /HPF (0-2) H 09/22/23 02:36 Urine WBC 11-20 /HPF (0-5) H 09/22/23 02:36 Ur Squamous Epith Cells 11-20 /HPF (0-2) 09/22/23 02:36 Urine Bacteria Trace (None Seen) 09/22/23 02:36 Hyaline Casts - /LPF (0-2) 09/22/23 02:36 Urine Opiates Screen Not Detected (Not Detect) 09/22/23 02:36 Urine Fentanyl Screen Not Detected (Not Detect) 09/22/23 02:36 Ur Barbiturates Screen Not Detected (Not Detect) 09/22/23 02:36 Ur Phencyclidine Scrn Not Detected (Not Detect) 09/22/23 02:36 Ur Amphetamines Screen Not Detected (Not Detect) 09/22/23 02:36 U Benzodiazepines Scrn Not Detected (Not Detect) 09/22/23 02:36 Urine Cocaine Screen Not Detected (Not Detect) 09/22/23 02:36 U Marijuana (THC) Screen Not Detected (Not Detect) 09/22/23 02:36 Influenza Type A (PCR) NEGATIVE (Negative) 09/22/23 00:42 Influenza Type B (PCR) NEGATIVE (Negative) 09/22/23 00:42 RSV RNA Qual (PCR) NEGATIVE (Negative) 09/22/23 00:42 SARS-CoV-2 RNA (RT-PCR) NEGATIVE (Negative) 09/22/23 00:42 Impressions Abdomen/Pelvis CTA 09/22/23 23:09 IMPRESSION: Unremarkable abdominal aorta and its branches. No evidence of a new is no dissection. Mild constipation without obstruction.. Normal appendix. Minimal right basilar atelectasis. Fleischner guidelines were followed. Pelvic/Transvag US 09/23/23 11:40 IMPRESSION: Uterus has been surgically removed. Small amount of free fluid in the cervical canal. Ovaries are not seen. Discharge Plan Discharge Anticipated Discharge Date/Time: 09/25/23 08:37 Patient Disposition: Home, Self-Care Discharge Diagnosis: Abdominal pain, SIRS physiology, possible Clostridium difficile colonization Referrals: Bunny Ballard MD [Physician] - 2 Weeks Jenny Mendosa MD [Primary Care Provider] - 1 Week Discharge Medications: New metronidazole 500 mg tablet 500 mg PO Q8H Qty: 9 0RF levofloxacin 750 mg tablet 750 mg PO DAILY Qty: 3 0RF oxycodone 5 mg tablet 5 mg PO Q8H PRN (Reason: severe pain (scale score 7-10)) Qty: 9 0RF Rx Instructions: Partial Fill upon patient request. Continued albuterol sulfate [Ventolin HFA] 90 mcg/actuation HFA aerosol inhaler 1 inh inhalation Q4H PRN (Reason: Shortness Of Breath Or Wheezing) Qty: 8.5 3RF gabapentin 100 mg capsule 100 mg PO TID 30 Days Qty: 90 0RF insulin glargine [Lantus U-100 Insulin] 100 unit/mL solution 15 unit subcut BEDTIME 90 Days Qty: 13.5 1RF Trulicity 0.75 mg/0.5 mL pen injector 0.75 mg subcut QWEEK Qty: 2 5RF metoprolol succinate 50 mg tablet extended release 24 hr 50 mg PO DAILY 90 Days Qty: 90 1RF clonidine HCl 0.1 mg tablet 0.1 mg PO TID PRN (Reason: Anxiety) atorvastatin 10 mg tablet 10 mg PO BEDTIME doxepin 25 mg capsule 25 - 50 mg PO BEDTIME PRN (Reason: insomnia) hydroxyzine HCl 50 mg tablet 50 mg PO TID PRN (Reason: itch) trazodone 150 mg tablet 150 mg PO BEDTIME PRN (Reason: insomnia) insulin lispro 100 unit/mL solution 5 unit subcut TID levothyroxine 112 mcg tablet 112 mcg PO DAILY@0600 rizatriptan 5 mg tablet 5 mg PO ONCE PRN (Reason: Migraine Headache) Rx Instructions: may repeat in 2 hours acetaminophen 650 mg tablet extended release 650 mg PO Q8H PRN (Reason: arthritis) amlodipine 10 mg tablet 10 mg PO DAILY Incruse Ellipta 62.5 mcg/actuation blister with device 1 inh INHALATION DAILY lorazepam 1 mg tablet 1 mg PO DAILY PRN (Reason: ANXIETY) sennosides [senna] 8.6 mg tablet 17.2 mg PO BEDTIME PRN (Reason: constipation) pantoprazole 40 mg tablet,delayed release (DR/EC) 40 mg PO BID duloxetine 60 mg capsule,delayed release(DR/EC) 60 mg PO QAM dicyclomine 10 mg capsule 20 mg PO QID PRN (Reason: abdominal pain) Discontinued mesalamine [Delzicol] 400 mg Capsule (With Del Rel Tablets) 800 mg PO TID Qty: 180 0RF vancomycin 125 mg capsule 125 mg PO QID Qty: 20 0RF metoprolol tartrate 50 mg tablet 50 mg PO BID Discharge Orders: Discharge Order (Routine); Ordered 09/25/23 Ordered By: Goran Page Diet: Diabetic diet Activity on Discharge: As tolerated Stand Alone Forms: Patient Portal Discharge page Care Plan Goals: Resolution of abdominal pain Health Concerns: Abdominal pain, SIRS physiology, possible Clostridium difficile colonization Plan of Treatment: Ultimately the cause of your abdominal pain is not entirely clear. However, you did improve on antibiotic therapy and you should take 3 more days of antibiotics as follows: - levofloxacin 750 mg daily - metronidazole 500 mg 3x a day [avoid alcohol while on this medicaiton] You should follow up with [facility] Gastroenterology in 2 weeks. Stop mesalamine as it did not improve your symptoms. Please follow up with your primary care doctor within 1 week. Return to the hospital if you experience recurrent or worsening symptoms. Assessment: See Discharge Summary.
--- NOTE | 2023-09-25 09:07 | MHC.CM.PN ---
pt dcd home no services
[2023-09-25] MEDS: Gabapentin 100 MG CAPSULE PO (09:16)
[2023-09-25] MEDS: 0.9 % Sodium Chloride Flush 3 ML SYRINGE IVFLUSH (09:16)
[2023-09-25] MEDS: Colchicine 0.6 MG TABLET PO (09:17)
[2023-09-25] MEDS: amLODIPine Besylate 10 MG TABLET PO (09:17)
[2023-09-25] MEDS: Enoxaparin Sodium 40 MG/0.4 ML SYRINGE SUBCUT (09:17)
[2023-09-25] MEDS: DULoxetine HCl 60 MG CAPSULE.DR PO (09:18)
[2023-09-25] MEDS: Metoprolol Tartrate 50 MG TABLET PO (09:18)
== END 2023-09-25 11:40 | disposition home or self-care (01) | DRG 251 ==
LOC: HO.ED 09-22 01:19 → HO.EDOVER 09-22 02:33 → HO.S3 09-22 07:45
PROVIDERS: Physician Assistant; Admitting Provider Student in an Organized Health Care Education/Training Program; Emergency Provider Emergency Medicine; PCP Internal Medicine; Visit Provider Family Medicine
DX: R10.31 Right lower quadrant pain (principal); E87.21 Acute metabolic acidosis; I11.0 Hypertensive heart disease with heart failure; R65.10 Systemic inflammatory response syndrome (SIRS) of non-infectious origin without acute organ dysfunction; I50.32 Chronic diastolic (congestive) heart failure; E11.40 Type 2 diabetes mellitus with diabetic neuropathy, unspecified; R11.2 Nausea with vomiting, unspecified; E11.65 Type 2 diabetes mellitus with hyperglycemia; E66.9 Obesity, unspecified; Z68.39 Body mass index [BMI] 39.0-39.9, adult; E78.2 Mixed hyperlipidemia; G47.33 Obstructive sleep apnea (adult) (pediatric); Z22.1 Carrier of other intestinal infectious diseases; J45.40 Moderate persistent asthma, uncomplicated; E03.9 Hypothyroidism, unspecified; Z20.822 Contact with and (suspected) exposure to COVID-19; Z79.4 Long term (current) use of insulin; Z79.890 Hormone replacement therapy; Z79.899 Other long term (current) drug therapy
CPT/HCPCS: 0241U; 36415; 74174; 76830; 76856; 80048; 80053; 80307; 81001; 82803; 82947; 83605; 83690; 84443; 85025; 86140; 87040; 87086; 87147; 93005; 94660; 99285; C9113; J0131; J1170; J1200; J1650; J1790; J1836; J1956; J2060; J2270; J2405; J2765; Q9967

== ENCOUNTER → 2023-09-22 00:34 | Outpatient (BNV) | payer OTHER, SELFPAY | PROVIDERS: Admitting Provider Student in an Organized Health Care Education/Training Program; Emergency Provider Emergency Medicine; PCP Internal Medicine; Visit Provider Internal Medicine Cardiovascular Disease | DX: I45.81 Long QT syndrome (principal) | CPT/HCPCS: 93010 ==

== ENCOUNTER → 2023-09-22 02:30 | Outpatient (BNV) | payer OTHER, SELFPAY | PROVIDERS: Admitting Provider Student in an Organized Health Care Education/Training Program; Emergency Provider Emergency Medicine; PCP Internal Medicine; Visit Provider Student in an Organized Health Care Education/Training Program | DX: R65.10 Systemic inflammatory response syndrome (SIRS) of non-infectious origin without acute organ dysfunction (principal); R10.31 Right lower quadrant pain | CPT/HCPCS: 99223; 99232; 99239; 99499 ==

== ENCOUNTER → 2023-09-22 02:30 | Outpatient (BNV) | payer OTHER, SELFPAY | PROVIDERS: Admitting Provider Student in an Organized Health Care Education/Training Program; Emergency Provider Emergency Medicine; PCP Internal Medicine; Visit Provider Internal Medicine Gastroenterology | DX: R11.2 Nausea with vomiting, unspecified (principal); R10.31 Right lower quadrant pain; R79.89 Other specified abnormal findings of blood chemistry | CPT/HCPCS: 99223 ==

== ENCOUNTER → 2023-09-22 02:30 | Outpatient (BNV) | payer OTHER, SELFPAY | PROVIDERS: Admitting Provider Student in an Organized Health Care Education/Training Program; Emergency Provider Emergency Medicine; PCP Internal Medicine; Visit Provider Surgery | DX: R10.31 Right lower quadrant pain (principal) | CPT/HCPCS: 99222; 99232 ==

== ENCOUNTER 2023-10-14 13:43 | Outpatient (AMB) | payer OTHER, SELFPAY ==
[2023-10-14 13:44] VITALS: BP 122/72; PULSE 87; O2SAT 99; BMI 38.6
--- NOTE | 2023-10-14 13:44 | A.OFFVIS_ITS ---
Intake Vital Signs 10/14/23 13:44 Height 5 ft 7 in Weight 246 lb 5.231 oz BMI 38.6 BP 122/72 Blood Pressure Location Rt brachial Position Sitting Pulse 87 Pulse Source Doppler Pulse Oximetry (%) 99 Oxygen Delivery Method Room Air Intake Visit Reasons: asthma Allergies Penicillins Allergy (Severe, Verified 10/14/23 13:49) swelling adhesive tape [ADHESIVE TAPE] Allergy (Intermediate, Verified 10/14/23 13:49) RASH amoxicillin [AMOXICILLIN] Allergy (Intermediate, Verified 10/14/23 13:49) RASH,SWELLING ibuprofen [From Motrin] Allergy (Intermediate, Verified 10/14/23 13:49) Hypertension latex Allergy (Intermediate, Verified 10/14/23 13:49) Rash HPI asthma HPI Details 58-year-old lady, nonsmoker but with exp osure to secondhand smoke, with underlying history of elevated right-sided diaphragm, now followed for asthma, MARY, and dyspnea on exertion. She continues to use Advair 230 and albuterol MDI with reasonable control of her asthma symptoms. Until her recent hospitalizations patient was on diuretic with reasonable control of her orthopnea and lower extremity edema. Patient states that after hospital discharge she is no longer on diuretic. She is complaining of significant dyspnea and lower extremity edema. [facility] Medical History Essential hypertension Acute diarrhea Pre-op examination Cervical radiculopathy Rash of foot Kiera albicans infection Cervicalgia Left shoulder pain Environmental allergies Hospital discharge follow-up MARY on CPAP Elevated red blood cell count Screening for hyperlipidemia Chronic pain syndrome Lumbar pain Encounter for annual routine gynecological examination Multiple air fluid levels of small intestine determined by X-ray Abdominal bloating Hypothyroid Sleep apnea Abdominal cramping Edema Anxiety with depression Chronic pain (Unknown) Gastroparesis Left knee pain Hypothyroidism Bilateral shoulder pain Hyperlipidemia LDL goal <70 Degeneration, intervertebral disc, cervical Spondylosis of cervical spine at multiple levels without myelopathy Sleep apnea Renal calculi Incontinence Goiter Disc degeneration, lumbar Spondylosis of lumbar region without myelopathy or radiculopathy Arthropathy of facet joint Insomnia LUDY (generalized anxiety disorder) Moderately severe recurrent major depression Diabetes mellitus Chronic pain syndrome Morbid (severe) obesity due to excess calories Fibromyalgia Small bowel motility disorder Chronic idiopathic constipation Asthma Surgical History History of knee replacement procedure of right knee History of hernia surgery Hx of colonoscopy History of esophagogastroduodenoscopy (EGD) History of cholecystectomy Delivery by section History of hysterectomy Family History Father Past heart attack Anxiety Mother MOF (multiple organ failure) Brother HIV (human immunodeficiency virus infection) Sister Ovarian cancer Lupus Bone cancer Uterine cancer Tumor Daughter Guillain-[place] Sister Lupus History of open heart surgery Family/Other Depression FH: mental illness Maternal Aunt Breast cancer Maternal Aunt Tumor Social History Household Members: None Household Members Other:: Housing: Apartment Are you a primary care information associate to a significant other at home: No Do you presently have visiting nurse or other home services: Yes Alcohol intake: never Patient Tobacco Use Status: Never used Tobacco e-Cigarette/Vaping Use: Never Used Second Hand Smoke Exposure: Yes Advance Directives Date on File: 12/08/21 service: No Current occupational status: unemployed and disabled Cognitive needs: No Hearing needs: No Vision needs: No Review of Systems Const Denies daytime sleepiness, Denies excessive sweating, Denies fatigue, Denies fever(s), Denies lethargy, Denies malaise, Denies night sweats, Denies snoring and Denies weight loss Eyes Denies blurry vision and Denies itchy eyes ENT Denies nasal congestion, Denies post nasal drip, Denies sinus pain, Denies sinus pressure and Denies other ( Thrush) Card Denies chest pain, Reports pedal edema, Reports leg edema, Denies dyspnea, Reports dyspnea on exertion, Reports orthopnea and Denies paroxysmal nocturnal dyspnea Resp Denies cough, Denies hemoptysis, Denies excessive phlegm production, Denies dyspnea, Reports dyspnea on exertion, Denies snoring and Denies wheezing GI Denies abdominal pain and Denies heartburn Musc Denies myalgias, Denies arthralgias and Denies joint swelling Skin/Breast Denies rash Neuro Denies memory loss and Denies seizure-like activity Psych Denies abnormal sleep pattern, Denies anxiety and Denies memory loss Endo Denies excessive sweating, Denies fatigue and Denies heat intolerance Dalton/Lymph Denies easy bruising Aller/Immun Denies itchy eyes, Denies seasonal rhinorrhea and Denies wheezing Physical Exam Vital Signs: Last Vital Signs Pulse 87 10/14/23 13:44 BP 122/72 10/14/23 13:44 Pulse Ox 99 10/14/23 13:44 Oxygen Delivery Method Room Air 10/14/23 13:44 BMI result Body Mass Index 38.6 Const General: no acute distress and alert Nutritional Appearance: obese Orientation/consciousness: Other orientation findings ( oriented) HEENT Head: Yes atraumatic Eyes General: appearance normal, both eyes and all related structures Sclerae: sclerae normal EOM: EOMs intact bilaterally Neck Neck: Yes supple Lymphatic: no lymphadenopathy noted Resp Effort & Inspection: normal respiratory effort and no use of accessory muscles Auscultation: clear to auscultation bilaterally Cardio Rate: regular rate Rhythm: regular rhythm Heart sounds: no gallops, no murmurs and no rubs Skin General skin exam: other ( warm) Extrem General: No clubbing, No cyanosis and Yes edema (2+) Assessment & Plan Assessment & Plan (1) MARY (obstructive sleep apnea): Code(s): G47.33 - Obstructive sleep apnea (adult) (pediatric) Plan: Well controlled on current CPAP therapy. Continue CPAP therapy. (2) Asthma: Code(s): J45.909 - Unspecified asthma, uncomplicated Qualifiers: Asthma severity: moderate Asthma persistence: persistent Asthma complication type: uncomplicated Qualified Code(s): J45.40 - Moderate persistent asthma, uncomplicated Plan: Baseline controlled on Advair and albuterol MDI. Continue current regimen. (3) Orthopnea: Code(s): R06.01 - Orthopnea Plan: Worsening orthopnea of diuretic. Will obtain 6 minute walk test/oxygen evaluation. Orders: Orders AMB 6 minute walk Today R06.09 - Other forms of dyspnea Coding Level of Care Code Est Pt Level 4 (93642) Diagnoses MARY (obstructive sleep apnea) G47.33 Moderate persistent asthma without complication J45.40 Asthma severity: moderate Asthma persistence: persistent Asthma complication type: uncomplicated Orthopnea R06.01
== END 2023-10-14 14:15 | disposition home or self-care (01) ==
PROVIDERS: PCP Internal Medicine; Visit Provider Internal Medicine Pulmonary Disease
DX: G47.33 Obstructive sleep apnea (adult) (pediatric) (principal); J45.40 Moderate persistent asthma, uncomplicated; R06.01 Orthopnea
CPT/HCPCS: 99214

== ENCOUNTER → 2023-10-14 13:43 | Outpatient (BNVA) | payer OTHER, SELFPAY | PROVIDERS: PCP Internal Medicine; Visit Provider Internal Medicine Pulmonary Disease | DX: J45.909 Unspecified asthma, uncomplicated (principal); G47.33 Obstructive sleep apnea (adult) (pediatric); R06.01 Orthopnea | CPT/HCPCS: 99212 ==

== ENCOUNTER 2023-10-14 14:07 | Outpatient (AMB) | payer OTHER, SELFPAY ==
[2023-10-14 14:14] VITALS: BP 122/80; BMI 39.0
--- NOTE | 2023-10-14 14:14 | A.OFFPC_ITS ---
Vital Signs 10/14/23 14:14 Height 5 ft 7 in Weight 249 lb BMI 39.0 BP 122/80 Blood Pressure Location Rt brachial Position Sitting Intake Visit Reasons: follow up medication Intake Note: Patient here for a follow up medications Logistics Account Manager Required: No Accompanied by: Self / Same As Patient Allergies Penicillins Allergy (Severe, Verified 10/14/23 14:39) swelling adhesive tape [ADHESIVE TAPE] Allergy (Intermediate, Verified 10/14/23 14:39) RASH amoxicillin [AMOXICILLIN] Allergy (Intermediate, Verified 10/14/23 14:39) RASH,SWELLING ibuprofen [From Motrin] Allergy (Intermediate, Verified 10/14/23 14:39) Hypertension latex Allergy (Intermediate, Verified 10/14/23 14:39) Rash Medication List - Last Reconciled 10/14/23 by Jenny Bell MD acetaminophen ER 650 mg PO Q8H PRN albuterol sulfate 90 mcg/actuation (Ventolin HFA) 1 inh inhalation Q4H PRN amlodipine 10 mg PO DAILY atorvastatin 10 mg PO BEDTIME clonidine HCl 0.1 mg PO TID PRN dicyclomine 20 mg PO QID PRN doxepin 25 - 50 mg PO BEDTIME PRN dulaglutide (Trulicity) 0.75 mg (0.5 mL) subcut QWEEK duloxetine 60 mg PO QAM gabapentin 100 mg PO TID 30 days hydroxyzine HCl 50 mg PO TID PRN insulin glargine (Lantus U-100 Insulin) 15 units (0.15 mL) subcut BEDTIME 90 days insulin lispro 5 units subcut TID levothyroxine 112 mcg PO DAILY@0600 lorazepam 1 mg PO DAILY PRN metoclopramide HCl (Reglan) 10 mg PO QIDACHS metoprolol succinate ER 50 mg PO DAILY 90 days pantoprazole 40 mg PO BID sennosides (senna) 17.2 mg PO BEDTIME PRN trazodone 150 mg PO BEDTIME PRN trimethobenzamide 300 mg PO Q6H umeclidinium 62.5 mcg/actuation (Incruse Ellipta) 1 inh inhalation DAILY Tobacco use date assessed: 10/14/23 Dental Screening Dental Screen Date: 10/14/23 Did you have a dental visit in the last 12 months?: Yes Did you have a dental problem in the last 6 months where you did not have access to dental care?: No Was dental information given to patient?: Patient has dentist HPI HPI Comments History of Present Illness Details This is a 58-year-old female with diabetes mellitus type 2 on long-term current use of insulin, hypertension, hyperlipidemia and 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 She would like an increase in gabapentin for her fibromyalgia. She also complains of nausea, abdominal pain and diarrhea that has been present since last month. She was hospitalized last month due to abdominal pain and had CT scan of abdomen and p fantasma as well as endoscopy and colonoscopy. Was positive for C diff but negative to toxin. Was prescribed mesalamine and vancomycin. As per patient diarrhea still present. Colonoscopy revealed tubular adenoma. Has a follow-up appointment with Gastroenterology this month. Is asking for something for her nausea. A1c within goal. Blood pressure stable. Lipid panel was order and her LDL goal should be less than 70. She also has hypothyroidism and TSH was order. Depression stable with duloxetine. [facility] Medical History (Updated 10/14/23 @ 16:00 by Jenny Bell MD) Essential hypertension Left shoulder pain Type 2 diabetes mellitus Hyperparathyroidism Erosive esophagitis Hypertension Acute diarrhea Pre-op examination Cervical radiculopathy Rash of foot Kiera albicans infection Cervicalgia Environmental allergies Hospital discharge follow-up MARY on CPAP Elevated red blood cell count Screening for hyperlipidemia Chronic pain syndrome Lumbar pain Encounter for annual routine gynecological examination Multiple air fluid levels of small intestine determined by X-ray Abdominal bloating Hypothyroid Sleep apnea Abdominal cramping Edema Anxiety with depression Chronic pain (Unknown) Gastroparesis Left knee pain Hypothyroidism Bilateral shoulder pain Hyperlipidemia LDL goal <70 Degeneration, intervertebral disc, cervical Spondylosis of cervical spine at multiple levels without myelopathy Sleep apnea Renal calculi Incontinence Goiter Disc degeneration, lumbar Spondylosis of lumbar region without myelopathy or radiculopathy Arthropathy of facet joint Insomnia LUDY (generalized anxiety disorder) Moderately severe recurrent major depression Diabetes mellitus Chronic pain syndrome Morbid (severe) obesity due to excess calories Fibromyalgia Small bowel motility disorder Chronic idiopathic constipation Asthma Surgical History History of knee replacement procedure of right knee History of hernia surgery Hx of colonoscopy History of esophagogastroduodenoscopy (EGD) History of cholecystectomy Delivery by section History of hysterectomy Family History Father Past heart attack Anxiety Mother MOF (multiple organ failure) Brother HIV (human immunodeficiency virus infection) Sister Ovarian cancer Lupus Bone cancer Uterine cancer Tumor Daughter Guillain-[place] Sister Lupus History of open heart surgery Family/Other Depression FH: mental illness Maternal Aunt Breast cancer Maternal Aunt Tumor Social History Household Members: None Household Members Other:: Housing: Apartment Are you a primary care taker to a significant other at home: No Do you presently have visiting nurse or other home services: Yes Alcohol intake: never Patient Tobacco Use Status: Never used Tobacco e-Cigarette/Vaping Use: Never Used Second Hand Smoke Exposure: Yes Advance Directives Date on File: 12/08/21 service: No Current occupational status: unemployed and disabled Cognitive needs: Yes Hearing needs: No Vision needs: No Questionnaire PHQ-9 Over the last 2 weeks, how often have you been bothered by any of the following problems? 1. Little interest or pleasure in doing things: not at all 2. Feeling down, depressed, or hopeless: not at all 3. Trouble falling or staying asleep, or sleeping too much: not at all 4. Feeling tired or having little energy: not at all 5. Poor appetite or overeating: not at all 6. Feeling bad about yourself - or that you are a failure or have let yourself or your family down: not at all 7. Trouble concentrating on things, such as reading the newspaper or watching television: not at all 8. Moving or speaking so slowly that other people could have noticed. Or the opposite - being so fidgety or restless that you have been moving around a lot more than usual: not at all 9. Thoughts that you would be better off or of hurting yourself in some way: not at all Total score: 0 Depression Screening Interpretation: Negative Depression Screening Done: Yes 78722 - PHQ-9 Billing: Yes Source: Developed by Drs. Shaquille Hitchcock, Janae Devlin, Avery Cutler and colleagues, with an educational carlos from [place] [employer]. Thrive Questionnaire Date Thrive assessed: 10/14/23 I am a: Patient What is your living situation today?: I have a steady place to live Within the past 12 months, did the food you bought not last and you didn't have the money to get more?: Never true Within the past 12 months, did you worry whether your food would run out before you got money to buy more?: Never true Do you have trouble paying for medicines?: No Do you have trouble getting transportation to medical appointments?: No Do you have trouble paying your heating and electricity bill?: No Do you have trouble taking care of your child, family member or friend?: No Do you have trouble with day-to-day activities such as bathing, preparing meals, shopping, managing finances, etc.?: No Are you currently unemployed and looking for a job?: No Are you interested in more education?: No Please select the resources that you would like help with: None Currently or been in a relationship where the following occur: no concerns reported AUDIT C Alcohol Use Questionnaire (AUDIT-C) 1. How often do you have a drink containing alcohol?: Never Total Score: 0 Score Reviewed/Action Taken: No LUDY-7 AMB Questionnaire LUDY-7 Date LUDY - 7 assessed: 10/14/23 Feeling nervous, anxious, or on edge: 2 = More than half the days Not being able to stop or control worryin = Not at all Worrying too much about different things: 0 = Not at all Trouble relaxin = Several days Being so restless that it is hard to sit still: 1 = Several days Becoming easily annoyed or irritable: 0 = Not at all Feeling afraid as if something awful might happen: 0 = Not at all Total LUDY-7 score (0-4 normal; 5-9 mild; 10-14 moderate; 15-21 severe): 4 Source: Developed by Drs. Shaquille Hitchcock, Janea Devlin, Avery Cutler and colleagues, with an educational carlos from [place] [employer]. LUDY-7 Assessment Billing LUDY-7 Assessment Tool: LUDY-7 Assessment 08001 Review of Systems Const All systems reviewed & are unremarkable except as noted in HPI and below Eyes Reports no additional complaints, Denies change in vision and Denies other visual disturbances Card Denies chest pain at rest, Denies chest pain with activity, Denies edema, Denies irregular heart rhythm, Denies claudication, Denies dyspnea, Denies dyspnea on exertion, Denies orthopnea, Denies paroxysmal nocturnal dyspnea and Denies slow heart rate Resp Denies cough, Denies dyspnea and Denies dyspnea on exertion GI Reports abdominal pain, Denies change in bowel habits, Denies excessive flatus, Reports diarrhea, Reports nausea and Denies vomiting Denies urinary incontinence, Denies urinary hesitancy and Denies urinary urgency Musc Denies abnormal gait, Denies atrophy, Denies deformity, Reports arthralgias and Denies limited range of motion Skin/Breast Denies bleeding lesions, Denies changing lesions and Denies rash Neuro Denies abnormal gait, Denies behavioral changes and Denies lack of coordination Psych Denies behavioral changes Physical exam (Primary Care) Vital Signs: Last Vital Signs BP 122/80 10/14/23 14:14 BMI result Body Mass Index 39.0 Tobacco/Smoking Status: Tobacco use Status Tobacco use date assessed 10/14/23 10/14/23 14:29 Patient Tobacco Use Status Never used Tobacco 10/14/23 14:29 Tobacco use type 10/06/23 08:53 e-Cigarette/Vaping Use Never Used 10/14/23 14:29 PHQ-9: PHQ-9 Score PHQ-9: Total score 0 10/14/23 15:33 Depression Screening Interpretation: Negative Thrive Assessment: Date of Thrive Assessment Date Thrive assessed 10/14/23 10/14/23 14:29 Currently or been in a relationship where the following occur: no concerns reported Eyes General: appearance normal, both eyes and all related structures Eyelids: Yes eyelids normal Conjunctivae: conjunctivae normal Neck Neck: Yes normal visual inspection and Yes supple Resp Effort & Inspection: normal respiratory effort Auscultation: clear to auscultation bilaterally Cardio Jugular venous distension: no JVD Rate: regular rate Rhythm: regular rhythm Heart sounds: S1 normal heart sound present and S2 normal heart sound present GI Inspection: Yes normal to inspection Palpation (GI): Soft to palpation Extrem General: Yes full ROM Office Procedures Flu Questionnaire Does the patient have a severe egg allergy?: No Immunizations flu vacc [id number] 6mos up(PF) 60 mcg(15 mcgx4)/0.5 mL IM syringe Performing Provider: Jenny Bell MD [facility] Documented (not given) by: Sunil Farrell Mark on 10/14/23 14:37 Reason Not Given: Patient Refused Assessment and Plan Assessment & Plan (1) Diabetes mellitus: Code(s): E11.9 - Type 2 diabetes mellitus without complications Qualifiers: Diabetes mellitus type: type 2 Diabetes mellitus retirement insulin use: without retirement use Diabetes mellitus complication status: without com plication Qualified Code(s): E11.9 - Type 2 diabetes mellitus without complications Plan: Continue insulin and Trulicity. A1c goal is equal or less than 7%. (2) Moderately severe recurrent major depression: Code(s): F33.2 - Major depressive disorder, recurrent severe without psychotic features Plan: Continue duloxetine. (3) Hyperlipidemia LDL goal <70: Code(s): E78.5 - Hyperlipidemia, unspecified Plan: Continue statins. Repeat lipid panel. LDL goal is less than 70. (4) Hypothyroidism: Code(s): E03.9 - Hypothyroidism, unspecified Plan: Continue levothyroxine. Monitor TSH. (5) Essential hypertension: Code(s): I10 - Essential (primary) hypertension Plan: Continue amlodipine and clonidine. Blood pressure goal is equal or less than 130/80. Orders: Orders Influenza [id number] Immunization Today Z23 - Encounter for immunization Complete Blood Count Auto Diff Today D64.9 - Anemia, unspecified Lipid Panel Today E78.5 - Hyperlipidemia, unspecified Microalbumin, Random (w Creat) Today E11.9 - Type 2 diabetes mellitus without complications Vitamin B12 and Folate Today E53.8 - Deficiency of other specified B group vitamins Thyroid Stimulating Hormone Today E03.9 - Hypothyroidism, unspecified XR shoulder LT min 2V Today M25.512 - Pain in left shoulder IRON PROFILE Today D64.9 - Anemia, unspecified Vitamin D 25-OH Total Today E55.9 - Vitamin D deficiency, unspecified Comprehensive [place]. Panel Fast Today E11.9 - Type 2 diabetes mellitus without complications Medications: New ondansetron 4 mg PO BID 7 days PRN 14 tabs 0RF nausea and vomiting gabapentin 300 mg PO TID 30 days 90 caps 2RF Changed From dicyclomine 20 mg PO QID PRN abdominal pain To dicyclomine 20 mg (2 x 10 mg) PO QID 30 days PRN 120 caps 0RF abdominal pain Discontinued gabapentin Discontinued Reason: Patient Completed Course 100 mg PO TID 30 days 90 caps 0RF Coding Level of Care Code Est Pt Level 4 (73991) Diagnoses Type 2 diabetes mellitus without complication, without long-term current use of insulin E11.9 Diabetes mellitus type: type 2 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
== END 2023-10-14 14:54 | disposition home or self-care (01) ==
PROVIDERS: PCP Internal Medicine; Visit Provider Internal Medicine
DX: E11.9 Type 2 diabetes mellitus without complications (principal); F33.2 Major depressive disorder, recurrent severe without psychotic features; E78.5 Hyperlipidemia, unspecified; E03.9 Hypothyroidism, unspecified; I10 Essential (primary) hypertension
CPT/HCPCS: 99214

== ENCOUNTER 2023-10-20 10:24 | Outpatient (AMB) | payer OTHER, SELFPAY ==
[2023-10-20 10:50] VITALS: BP 138/72; PULSE 82; O2SAT 97
--- NOTE | 2023-10-20 10:50 | MHC.OFFVIS ---
Intake Vital Signs 10/20/23 10:50 Weight 249 lb 1.957 oz BP 138/72 Blood Pressure Location Rt brachial Position Sitting Pulse 82 Pulse Source Pulse Oximeter Pulse Oximetry (%) 97 Oxygen Delivery Method Room Air Intake Visit Reasons: 6MW Allergies Penicillins Allergy (Severe, Verified 10/20/23 10:51) swelling adhesive tape [ADHESIVE TAPE] Allergy (Intermediate, Verified 10/20/23 10:51) RASH amoxicillin [AMOXICILLIN] Allergy (Intermediate, Verified 10/20/23 10:51) RASH,SWELLING ibuprofen [From Motrin] Allergy (Intermediate, Verified 10/20/23 10:51) Hypertension latex Allergy (Intermediate, Verified 10/20/23 10:51) Rash Medication List - Last Reconciled 10/20/23 by Kimberley Stern LPN acetaminophen ER 650 mg PO Q8H PRN albuterol sulfate 90 mcg/actuation (Ventolin HFA) 1 inh inhalation Q4H PRN amlodipine 10 mg PO DAILY atorvastatin 10 mg PO BEDTIME clonidine HCl 0.1 mg PO TID PRN dicyclomine 20 mg (2 x 10 mg) PO QID PRN 30 days doxepin 25 - 50 mg PO BEDTIME PRN dulaglutide (Trulicity) 0.75 mg (0.5 mL) subcut QWEEK duloxetine 60 mg PO QAM gabapentin 300 mg PO TID 30 days hydroxyzine HCl 50 mg PO TID PRN insulin glargine (Lantus U-100 Insulin) 15 units (0.15 mL) subcut BEDTIME 90 days insulin lispro 5 units subcut TID levothyroxine 112 mcg PO DAILY@0600 lorazepam 1 mg PO DAILY PRN metoclopramide HCl (Reglan) 10 mg PO QIDACHS metoprolol succinate ER 50 mg PO DAILY 90 days ondansetron 4 mg PO BID PRN 7 days pantoprazole 40 mg PO BID sennosides (senna) 17.2 mg PO BEDTIME PRN trazodone 150 mg PO BEDTIME PRN trimethobenzamide 300 mg PO Q6H umeclidinium 62.5 mcg/actuation (Incruse Ellipta) 1 inh inhalation DAILY PFSH Medical History (Updated 10/14/23 @ 16:00 by Jenny Bell MD) Essential hypertension Left shoulder pain Type 2 diabetes mellitus Hyperparathyroidism Erosive esophagitis Hypertension Acute diarrhea Pre-op examination Cervical radiculopathy Rash of foot Kiera albicans infection Cervicalgia Environmental allergies Hospital discharge follow-up MARY on CPAP Elevated red blood cell count Screening for hyperlipidemia Chronic pain syndrome Lumbar pain Encounter for annual routine gynecological examination Multiple air fluid levels of small intestine determined by X-ray Abdominal bloating Hypothyroid Sleep apnea Abdominal cramping Edema Anxiety with depression Chronic pain (Unknown) Gastroparesis Left knee pain Hypothyroidism Bilateral shoulder pain Hyperlipidemia LDL goal <70 Degeneration, intervertebral disc, cervical Spondylosis of cervical spine at multiple levels without myelopathy Sleep apnea Renal calculi Incontinence Goiter Disc degeneration, lumbar Spondylosis of lumbar region without myelopathy or radiculopathy Arthropathy of facet joint Insomnia LUDY (generalized anxiety disorder) Moderately severe recurrent major depression Diabetes mellitus Chronic pain syndrome Morbid (severe) obesity due to excess calories Fibromyalgia Small bowel motility disorder Chronic idiopathic constipation Asthma Surgical History History of knee replacement procedure of right knee History of hernia surgery Hx of colonoscopy History of esophagogastroduodenoscopy (EGD) History of cholecystectomy Delivery by section History of hysterectomy Family History Father Past heart attack Anxiety Mother MOF (multiple organ failure) Brother HIV (human immunodeficiency virus infection) Sister Ovarian cancer Lupus Bone cancer Uterine cancer Tumor Daughter Guillain-[place] Sister Lupus History of open heart surgery Family/Other Depression FH: mental illness Maternal Aunt Breast cancer Maternal Aunt Tumor Social History Household Members: None Household Members Other:: Housing: Apartment Are you a primary childcare administrator to a significant other at home: No Do you presently have visiting nurse or other home services: Yes Alcohol intake: never Patient Tobacco Use Status: Never used Tobacco e-Cigarette/Vaping Use: Never Used Second Hand Smoke Exposure: Yes Advance Directives Date on File: 12/08/21 service: No Current occupational status: unemployed and disabled Cognitive needs: Yes Hearing needs: No Vision needs: No Physical Exam Vital Signs: Last Vital Signs Pulse 82 10/20/23 10:50 BP 138/72 10/20/23 10:50 Pulse Ox 97 10/20/23 10:50 Oxygen Delivery Method Room Air 10/20/23 10:50 Office Procedures 6 Minute Walk Time:: 10:30 SPO2 % at rest: 97 Pulse at rest: 82 SPO2 % during excercise: 92 Pulse during excercise: 102 SPO2 % after excercise: 96 Pulse after excercise: 90 Distance in yards walked: 180 Laci Score: 5 Performance Observations:: Bonnie walked on level ground with the use of a cane to her R hand, she walked on room air the entire walk. She maintained her SPO2 92-95%, no supplemental O2 needed. [id number] - 6 Minute Walk Assessment & Plan Assessment & Plan (1) Asthma: Code(s): J45.909 - Unspecified asthma, uncomplicated Qualifiers: Asthma complication type: uncomplicated Asthma persistence: persistent Asthma severity: moderate Qualified Code(s): J45.40 - Moderate persistent asthma, uncomplicated Plan 6MWT visit Coding Level of Care Code Established Pt Est Pt Level 1 (43331) Patient Type Established Diagnoses Moderate persistent asthma without complication J45.40 Asthma complication type: uncomplicated Asthma persistence: persistent Asthma severity: moderate CPT Codes Coding ([id number]) Comment NURSE VISIT ONLY
[2023-10-20 10:54] VITALS: PULSE 82; O2SAT 97
== END 2023-10-20 10:54 | disposition home or self-care (01) ==
PROVIDERS: PCP Internal Medicine; Visit Provider Internal Medicine Pulmonary Disease
DX: J45.40 Moderate persistent asthma, uncomplicated (principal)

== ENCOUNTER → 2023-10-20 10:24 | Outpatient (BNVA) | payer OTHER, SELFPAY | PROVIDERS: PCP Internal Medicine; Visit Provider Internal Medicine Pulmonary Disease | DX: J45.40 Moderate persistent asthma, uncomplicated (principal) | CPT/HCPCS: 94618; 99211 ==

== ENCOUNTER 2023-10-23 14:37 | Emergency (ER) | payer OTHER, SELFPAY ==
--- NOTE | ~2023-10-23 | XR_ITS ---
EXAMINATION: XR SHOULDER, LEFT CLINICAL INFORMATION: Pain COMPARISON: X-ray the left shoulder February 2022 TECHNIQUE: Three views of the left shoulder. FINDINGS: The bones and soft tissues are normal. No fracture. Glenohumeral and acromioclavicular alignment is anatomic with normal joint space. No abnormal soft tissue calcifications. XR/XR shoulder LT min 2V IMPRESSION: Normal left shoulder.
[2023-10-23 14:38] VITALS: BP 136/79; PULSE 85; RESP 16; TEMP 35.7; O2SAT 96; BMI 40.4
--- NOTE | 2023-10-23 14:38 | ED_ITS ---
HPI - General Adult General Chief complaint: General Medical Stated complaint: l shoulder pain Time Seen by Provider: 10/23/23 16:02 History of Present Illness HPI narrative: 58-year-old female with a past history of DM, GERD, MARY, pulmonary edema presents to emergency department complaints worsening left shoulder pain. She reports she has had pain for the last 1.5 months since being admitted here in the hospital. She reports that she was admitted in the middle of September for intractable nausea, vomiting, and diarrhea. She states she received an injection for her diabetes prior to being discharged and several days after the injection she began having discomfort and difficulty with range of motion. She describes the pain as sore and severe, 10/10. She denies noting any erythema, swelling, ecchymosis, fevers, or chills. She reports significant decrease in range of motion both the shoulder and elbow due to pain and reports intermittent paresthesias in the left hand and fingers. She denies noting any shortness of breath, chest pain, abdominal pain, nausea, vomiting diarrhea, constipation, dizziness, lightheadedness. She denies any known trauma or overuse injury to the arm Pertinent positives and negatives discussed in HPI Related Data Home Medications Medication Instructions Recorded Confirmed atorvastatin 10 mg tablet 10 mg PO BEDTIME 08/25/23 10/20/23 clonidine HCl 0.1 mg tablet 0.1 mg PO TID PRN Anxiety 08/25/23 10/20/23 doxepin 25 mg capsule 25 - 50 mg PO BEDTIME PRN insomnia 08/25/23 10/20/23 hydroxyzine HCl 50 mg tablet 50 mg PO TID PRN itch 08/25/23 10/20/23 insulin lispro 100 unit/mL 5 unit subcut TID 08/25/23 10/20/23 subcutaneous solution levothyroxine 112 mcg tablet 112 mcg PO DAILY@0600 08/25/23 10/20/23 trazodone 150 mg tablet 150 mg PO BEDTIME PRN insomnia 08/25/23 10/20/23 acetaminophen 650 mg 650 mg PO Q8H PRN arthritis 09/11/23 10/20/23 tablet,extended release amlodipine 10 mg tablet 10 mg PO DAILY 09/11/23 10/20/23 lorazepam 1 mg tablet 1 mg PO DAILY PRN ANXIETY 09/11/23 10/20/23 umeclidinium 62.5 mcg/actuation 1 inh inhalation DAILY 09/11/23 10/20/23 blister powder for inhalation (Incruse Ellipta) duloxetine 60 mg capsule,delayed 60 mg PO QAM 09/22/23 10/20/23 release pantoprazole 40 mg tablet,delayed 40 mg PO BID 09/22/23 10/20/23 release sennosides 8.6 mg tablet (senna) 17.2 mg PO BEDTIME PRN constipation 09/22/23 10/20/23 Previous Rx's Medication Instructions Recorded albuterol sulfate 90 mcg/actuation 1 inh inhalation Q4H PRN Shortness 09/03/23 aerosol inhaler (Ventolin HFA) Of Breath Or Wheezing #8.5 grams dulaglutide 0.75 mg/0.5 mL 0.75 mg (0.5 mL) subcut QWEEK #2 mL 09/14/23 subcutaneous pen injector (Trulicity) insulin glargine 100 unit/mL 15 unit (0.15 mL) subcut BEDTIME 09/14/23 subcutaneous solution (Lantus 90 days #13.5 mL U-100 Insulin) metoprolol succinate 50 mg 50 mg PO DAILY 90 days #90 tabs 09/29/23 tablet,extended release 24 hr metoclopramide HCl 10 mg tablet 10 mg PO QIDACHS #120 tabs 10/05/23 (Reglan) trimethobenzamide 300 mg capsule 300 mg PO Q6H #20 caps 10/08/23 dicyclomine 10 mg capsule 20 mg (2 x 10 mg) PO QID PRN 10/14/23 abdominal pain 30 days #120 caps gabapentin 300 mg capsule 300 mg PO TID 30 days #90 caps 10/14/23 ondansetron 4 mg disintegrating 4 mg PO BID PRN nausea and 10/14/23 tablet vomiting 7 days #14 tabs oxycodone 5 mg capsule 5 mg PO Q8H PRN pain #5 caps 10/23/23 Allergies Allergy/AdvReac Type Severity Reaction Status Date / Time Penicillins Allergy Severe swelling Verified 10/20/23 10:51 adhesive tape [ADHESIVE TAPE] Allergy Intermediate RASH Verified 10/20/23 10:51 amoxicillin [AMOXICILLIN] Allergy Intermediate RASH,SWELLI Verified 10/20/23 10:51 NG ibuprofen [From Motrin] Allergy Intermediate Hypertensio Verified 10/20/23 10:51 n latex Allergy Intermediate Rash Verified 10/20/23 10:51 PMFSH Past Medical History Onset Date is defined in the Problem List Problems that require an onset date and time if occurred within 24 hrs of arrival to the ED Aortic Dissection and Rupture; Neurologic impairment; Cardiopulmonary Arrest; Endotracheal Intubation; Insertion or Replacement of Mechanical Circulatory Assist Device Medical History (Updated 10/23/23 @ 16:57 by Sushma Jo NP) Essential hypertension Left shoulder pain Type 2 diabetes mellitus Hyperparathyroidism Erosive esophagitis Hypertension Acute diarrhea Pre-op examination Cervical radiculopathy Rash of foot Kiera albicans infection Cervicalgia Environmental allergies Hospital discharge follow-up MARY on CPAP Elevated red blood cell count Screening for hyperlipidemia Chronic pain syndrome Lumbar pain Encounter for annual routine gynecological examination Multiple air fluid levels of small intestine determined by X-ray Abdominal bloating Hypothyroid Sleep apnea Abdominal cramping Edema Anxiety with depression Chronic pain (Unknown) Gastroparesis Left knee pain Hypothyroidism Bilateral shoulder pain Hyperlipidemia LDL goal <70 Degeneration, intervertebral disc, cervical Spondylosis of cervical spine at multiple levels without myelopathy Sleep apnea Renal calculi Incontinence Goiter Disc degeneration, lumbar Spondylosis of lumbar region without myelopathy or radiculopathy Arthropathy of facet joint Insomnia LUDY (generalized anxiety disorder) Moderately severe recurrent major depression Diabetes mellitus Chronic pain syndrome Morbid (severe) obesity due to excess calories Fibromyalgia Small bowel motility disorder Chronic idiopathic constipation Asthma Surgical History History of knee replacement procedure of right knee History of hernia surgery Hx of colonoscopy History of esophagogastroduodenoscopy (EGD) History of cholecystectomy Delivery by section History of hysterectomy Family History Family History Father Past heart attack Anxiety Mother MOF (multiple organ failure) Brother HIV (human immunodeficiency virus infection) Sister Ovarian cancer Lupus Bone cancer Uterine cancer Tumor Daughter Guillain-[place] Sister Lupus History of open heart surgery Family/Other Depression FH: mental illness Maternal Aunt Breast cancer Maternal Aunt Tumor Social History Social History Household Members: None Household Members Other:: Housing: Apartment Are you a primary healthcare insurance sales agent to a significant other at home: No Do you presently have visiting nurse or other home services: Yes Alcohol intake: never Patient Tobacco Use Status: Never used Tobacco Smoked in Last 30 Days: No e-Cigarette/Vaping Use: Never Used Second Hand Smoke Exposure: Yes Use of substances other than those prescribed or required for medical reasons: No Advance Directives: Yes Advance Directives on File: Yes Advance Directives Date on File: 12/08/21 Patient : No service: No Current occupational status: unemployed and disabled Cognitive needs: Yes Hearing needs: No Vision needs: No Physical Exam ED Vital Signs: Vital Signs - 24 hr 10/23/23 14:38 10/23/23 15:25 10/23/23 17:20 Temperature 96.2 F L 98.5 F Pulse Rate 85 83 76 Respiratory Rate 16 18 18 Blood Pressure 136/79 132/77 148/70 H Pulse Oximetry 96 98 94 Oxygen Delivery Method Room Air Room Air Room Air BMI result Body Mass Index 40.4 Course Course Course Narrative: This is a rapid medical exam: Additional HPI, ROS, PE not included below will be deferred to primary provider. Patient is a 58-year-old female with history of HTN, asthma, fibromyalgia, T2DM, GERD, erosive esophagitis, MARY on CPAP, cervical radiculopathy, hypothyroid, chronic pain syndrome presenting to the ED with complaint of left lateral neck and shoulder pain radiating down her left arm to her hand. Was admitted to the hospital 3 months ago and states pain began at that time. Also complains of epigastric pain, dizziness, lightheadedness. Denies chest pain but does report some dyspnea. Plan: EKG, labs, x-ray Medications Administered Discontinued Medications Generic Name Dose Route Start Last Admin Trade Name Freq PRN Reason Stop Dose Admin Oxycodone HCl 5 mg 10/23/23 16:11 10/23/23 16:16 Oxycodone Hcl Immed Release 5 Mg Tablet PO 10/23/23 16:12 5 mg ONCE ONE Administration Medical Decision Making Medical Decision Making MDM Narrative: Old records reviewed including notes from pain management. Patient has a history of arthropathy in which previously followed by [facility] pain management center although last visit was on 11/05/2022. Patient had an opioid contract with a pain center that which was suspended in December of 2021 and she did not show her pill count as required. Records show she has a history of difficulty with mobility in the left shoulder as well as pain. Patient assessed in the Emergency Department with limited ROM of left shoulder noted. Blood work, EKG, and XR ordered. I have independently interpreted the pt's EKG as NSR with no signs of acute ischemia or ectopy. I have also independently interpreted the patient's left shoulder x-rays show no signs of acute fracture or dislocation. Hematology showing leukocytosis with WBCs 12.2 with stable anemia. Chemistries and coags studies unremarkable. Troponin less than 2.7. Heart Score 2, indicating low risk for ACS at this time. Patient's symptoms are consistent exacerbation of chronic left shoulder pain with a low suspicion for fracture, dislocation, sprain, contusion, septic joint, sepsis, malignancy. Patient updated with diagnostic results with no answer questions at this time. Patient educated to follow up with the primary care provider in addition to orthopedics in/or pain Management Center within 24-48 hours. Patient educated to use [id number] pain medication in addition to prescribed oxycodone for management of discomfort in addition to heat or ice. Patient is in agreement with plan Differential Diagnosis Differential Diagnoses: The differential diagnosis associated with the presentation includes Fracture, dislocation, septic joint, sprain, strain, contusion, malignancy Lab Data 10/23/23 14:59 10/23/23 14:59 Labs: Lab Results 10/23/23 10/23/23 Range/Units 14:59 16:49 WBC 12.2 H (4.8-10.8) X10*3/uL RBC 5.09 (4.20-5.50) X10*6/uL Hgb 11.1 L (12.0-16.0) g/dl Hct 37.4 (37.0-47.0) % MCV 73.5 L (80.0-98.0) fL MCH 21.8 L (27.0-33.0) pg MCHC 29.7 L (31.0-35.0) g/dl RDW 18.3 H (11.0-16.0) % Plt Count 293 (160-400) X10*3/uL MPV 10.2 (9.4-12.3) fL Immature Gran % (Auto) 0.6 H (0.0-0.4) % Neut % (Auto) 77.7 H (45-73) % Lymph % (Auto) 14.8 L (20-40) % Cannon % (Auto) 4.4 (2-11) % Eos % (Auto) 2.2 (0-4) % Baso % (Auto) 0.3 (0-2) % Lymph # (Auto) 1.8 (1.2-4.9) X10*3/uL Cannon # (Auto) 0.5 (0.1-1.2) X10*3/uL Eos # (Auto) 0.3 (0.0-0.4) X10*3/uL Baso # (Auto) 0.0 (0.0-0.2) X10*3/uL Abs Immat Gran (auto) 0.07 H (0.00-0.03) X10*3/uL Absolute Neuts (auto) 9.5 H (2.0-8.3) x10*3/uL Absolute Nucleated RBC 0.000 (0.0-0.012) X10*3/uL Nucleated RBC % (auto) 0.0 (0.0-0.2) /100WBC PT 12.5 (11.1-13.3) SEC INR 1.0 (0.9-1.1) Sodium 140 (135-145) mmol/L Potassium 4.5 (3.3-5.1) mmol/L Chloride 106 (96-108) mmol/L Carbon Dioxide 27 (22-29) mmol/L Anion Gap 12 (12-20) BUN 13 (9-16) mg/dL Creatinine 0.74 (0.5-1.4) mg/dL Estim Creat Clear Calc 110.8 Estimated GFR > 60 Random Glucose 150 H (60-115) mg/dL Calcium 9.6 D (8.4-10.2) mg/dL Total Bilirubin 0.3 (0.0-1.0) mg/dL AST 17 (5-31) U/L ALT 22 (0-31) U/L Alkaline Phosphatase 106 (39-117) U/L Troponin I High Sens < 2.7 < 2.7 (<3.5-17.0) ng/L Total Protein 7.6 (6.5-8.0) g/dL Albumin 3.8 (3.5-5.0) g/dL Discharge Plan Discharge Clinical Impression: Left shoulder strain, Chronic left shoulder pain Patient Disposition: Home, Self-Care Instructions: Shoulder Pain (ED), Warm Compress or Soak (ED) Additional Instructions: Please follow-up with your primary care provider in addition to pain management for further management of your chronic shoulder pain Prescriptions: New oxycodone 5 mg capsule 5 mg PO Q8H PRN (Reason: pain) Qty: 5 0RF Rx Instructions: Partial Fill upon patient request. No Action albuterol sulfate [Ventolin HFA] 90 mcg/actuation HFA aerosol inhaler 1 inh inhalation Q4H PRN (Reason: Shortness Of Breath Or Wheezing) Qty: 8.5 3RF insulin glargine [Lantus U-100 Insulin] 100 unit/mL solution 15 unit subcut BEDTIME 90 Days Qty: 13.5 1RF Trulicity 0.75 mg/0.5 mL pen injector 0.75 mg subcut QWEEK Qty: 2 5RF metoprolol succinate 50 mg tablet extended release 24 hr 50 mg PO DAILY 90 Days Qty: 90 1RF metoclopramide HCl [Reglan] 10 mg tablet 10 mg PO QIDACHS Qty: 120 1RF trimethobenzamide 300 mg capsule 300 mg PO Q6H Qty: 20 0RF clonidine HCl 0.1 mg tablet 0.1 mg PO TID PRN (Reason: Anxiety) atorvastatin 10 mg tablet 10 mg PO BEDTIME doxepin 25 mg capsule 25 - 50 mg PO BEDTIME PRN (Reason: insomnia) hydroxyzine HCl 50 mg tablet 50 mg PO TID PRN (Reason: itch) trazodone 150 mg tablet 150 mg PO BEDTIME PRN (Reason: insomnia) insulin lispro 100 unit/mL solution 5 unit subcut TID levothyroxine 112 mcg tablet 112 mcg PO DAILY@0600 acetaminophen 650 mg tablet extended release 650 mg PO Q8H PRN (Reason: arthritis) amlodipine 10 mg tablet 10 mg PO DAILY Incruse Ellipta 62.5 mcg/actuation blister with device 1 inh INHALATION DAILY lorazepam 1 mg tablet 1 mg PO DAILY PRN (Reason: ANXIETY) sennosides [senna] 8.6 mg tablet 17.2 mg PO BEDTIME PRN (Reason: constipation) pantoprazole 40 mg tablet,delayed release (DR/EC) 40 mg PO BID duloxetine 60 mg capsule,delayed release(DR/EC) 60 mg PO QAM dicyclomine 10 mg capsule 20 mg PO QID PRN (Reason: abdominal pain) 30 Days Qty: 120 0RF gabapentin 300 mg capsule 300 mg PO TID 30 Days Qty: 90 2RF ondansetron 4 mg tablet,disintegrating 4 mg PO BID PRN (Reason: nausea and vomiting) 7 Days Qty: 14 0RF Referrals: Zeferino Yun MD [Physician] - Jenny Mendosa MD [Primary Care Provider] - Print Language: Emirati
--- NOTE | 2023-10-23 14:42 | ECG_ITS ---
Test Reason : LEFT SHOULDER PAIN Blood Pressure : / mmHG Vent. Rate : 078 BPM Atrial Rate : 078 BPM P-R Int : 140 ms QRS Dur : 076 ms QT Int : 404 ms P-R-T Axes : 000 -01 003 degrees QTc Int : 460 ms Normal sinus rhythm Nonspecific ST and T wave abnormality Borderline ECG When compared with ECG of 22-SEP-2023 00:39, Nonspecific T wave abnormality now evident in Anterior leads Referred By: Alissa Clement Electronically Signed By:FEI RADER
[2023-10-23 15:05] LABS: MANUAL DIFF FLAG NO
[2023-10-23 15:07] LABS: Basophils Percent Auto 0.3 % (0-2); Eosinophils Absolute Auto 0.3 X10*3/uL (0.0-0.4); Eosinophils Percent Auto 2.2 % (0-4); Hematocrit 37.4 % (37.0-47.0); Hemoglobin 11.1 g/dl (12.0-16.0); Imm Gran Abs Auto 0.07 X10*3/uL (0.00-0.03); Imm Gran Pct Auto 0.6 % (0.0-0.4); Lymphocytes Absolute Auto 1.8 X10*3/uL (1.2-4.9); Lymphocytes Percent Auto 14.8 % (20-40); Mean Corpuscular HGB Conc 29.7 g/dl (31.0-35.0); Mean Corpuscular Hemoglobin 21.8 pg (27.0-33.0); Mean Corpuscular Volume 73.5 fL (80.0-98.0); Mean Platelet Volume 10.2 fL (9.4-12.3); Monocytes Absolute Auto 0.5 X10*3/uL (0.1-1.2); Monocytes Percent Auto 4.4 % (2-11); Neutrophils Absolute Auto 9.5 x10*3/uL (2.0-8.3); Neutrophils Percent Auto 77.7 % (45-73); Platelet Count 293 X10*3/uL (160-400); Red Blood Count 5.09 X10*6/uL (4.20-5.50); Red Cell Distribution Width 18.3 % (11.0-16.0); White Blood Count 12.2 X10*3/uL (4.8-10.8)
[2023-10-23 15:14] LABS: Prothrombin Time 12.5 SEC (11.1-13.3)
[2023-10-23 15:20] LABS: Alanine Aminotransferase 22 U/L (0-31); Albumin Level 3.8 g/dL (3.5-5.0); Alkaline Phosphatase 106 U/L (39-117); Anion Gap 12 (12-20); Aspartate Amino Transferase 17 U/L (5-31); Bilirubin Total 0.3 mg/dL (0.0-1.0); Blood Urea Nitrogen 13 mg/dL (9-16); Calcium 9.6 mg/dL (8.4-10.2); Carbon Dioxide 27 mmol/L (22-29); Chloride 106 mmol/L (96-108); Creatinine Clr Calc Pharmacy 110.8; Estimated Glomerular Filt Rate > 60; Glucose Random 150 mg/dL (60-115); Potassium 4.5 mmol/L (3.3-5.1); Sodium 140 mmol/L (135-145); Total Protein 7.6 g/dL (6.5-8.0)
[2023-10-23 15:25] VITALS: BP 132/77; PULSE 83; RESP 18; TEMP 36.9; O2SAT 98
[2023-10-23 15:28] LABS: Troponin-I High Sensitivity < 2.7 ng/L (<3.5-17.0)
--- NOTE | 2023-10-23 15:37 | PC.NURSE ---
a&ox4, vss and up to date. pt presents to the ED w/ left sided upper and lower extremity pain that radiates to upper back/neck. pt states pain has been present x 3 weeks - causing her difficulty to walk. pt states she uses cane to ambulate baseline but states that it has been more difficult lately. no sob/wob noted at this time. respirations even and unlabored. pt resting comfortably w/ the lights dimmed. call reyes placed within reach.
--- NOTE | 2023-10-23 15:40 | PC.NURSE ---
pt to xray at this time.
--- NOTE | 2023-10-23 16:08 | ED_ITS ---
HPI - General Adult General Chief complaint: General Medical Stated complaint: l shoulder pain Time Seen by Provider: 10/23/23 16:02 Source: patient Mode of arrival: ambulatory Limitations: no limitations History of Present Illness HPI narrative: 58-year-old female with a past history of DM, GERD, MARY, pulmonary edema presents to emergency department complaints worsening left shoulder pain. She reports she has had pain for the last 1.5 months since being admitted here in the hospital. She reports that she was admitted in the middle of September for intractable nausea, vomiting, and diarrhea. She states she received an injection for her diabetes prior to being discharged and several days after the injection she began having discomfort and difficulty with range of motion. She describes the pain as sore and severe, 10/10. She denies noting any erythema, swelling, ecchymosis, fevers, or chills. She reports significant decrease in range of motion both the shoulder and elbow due to pain and reports intermittent paresthesias in the left hand and fingers. She denies noting any shortness of breath, chest pain, abdominal pain, nausea, vomiting diarrhea, constipation, dizziness, lightheadedness. She denies any known trauma or overuse injury to the arm Pertinent positives and negatives discussed in HPI Related Data Home Medications Medication Instructions Recorded Confirmed atorvastatin 10 mg tablet 10 mg PO BEDTIME 08/25/23 10/20/23 clonidine HCl 0.1 mg tablet 0.1 mg PO TID PRN Anxiety 08/25/23 10/20/23 doxepin 25 mg capsule 25 - 50 mg PO BEDTIME PRN insomnia 08/25/23 10/20/23 hydroxyzine HCl 50 mg tablet 50 mg PO TID PRN itch 08/25/23 10/20/23 insulin lispro 100 unit/mL 5 unit subcut TID 08/25/23 10/20/23 subcutaneous solution levothyroxine 112 mcg tablet 112 mcg PO DAILY@0600 08/25/23 10/20/23 trazodone 150 mg tablet 150 mg PO BEDTIME PRN insomnia 08/25/23 10/20/23 acetaminophen 650 mg 650 mg PO Q8H PRN arthritis 09/11/23 10/20/23 tablet,extended release amlodipine 10 mg tablet 10 mg PO DAILY 09/11/23 10/20/23 lorazepam 1 mg tablet 1 mg PO DAILY PRN ANXIETY 09/11/23 10/20/23 umeclidinium 62.5 mcg/actuation 1 inh inhalation DAILY 09/11/23 10/20/23 blister powder for inhalation (Incruse Ellipta) duloxetine 60 mg capsule,delayed 60 mg PO QAM 09/22/23 10/20/23 release pantoprazole 40 mg tablet,delayed 40 mg PO BID 09/22/23 10/20/23 release sennosides 8.6 mg tablet (senna) 17.2 mg PO BEDTIME PRN constipation 09/22/23 10/20/23 Previous Rx's Medication Instructions Recorded albuterol sulfate 90 mcg/actuation 1 inh inhalation Q4H PRN Shortness 09/03/23 aerosol inhaler (Ventolin HFA) Of Breath Or Wheezing #8.5 grams dulaglutide 0.75 mg/0.5 mL 0.75 mg (0.5 mL) subcut QWEEK #2 mL 09/14/23 subcutaneous pen injector (Trulicity) insulin glargine 100 unit/mL 15 unit (0.15 mL) subcut BEDTIME 09/14/23 subcutaneous solution (Lantus 90 days #13.5 mL U-100 Insulin) metoprolol succinate 50 mg 50 mg PO DAILY 90 days #90 tabs 09/29/23 tablet,extended release 24 hr metoclopramide HCl 10 mg tablet 10 mg PO QIDACHS #120 tabs 10/05/23 (Reglan) trimethobenzamide 300 mg capsule 300 mg PO Q6H #20 caps 10/08/23 dicyclomine 10 mg capsule 20 mg (2 x 10 mg) PO QID PRN 10/14/23 abdominal pain 30 days #120 caps gabapentin 300 mg capsule 300 mg PO TID 30 days #90 caps 10/14/23 ondansetron 4 mg disintegrating 4 mg PO BID PRN nausea and 10/14/23 tablet vomiting 7 days #14 tabs Allergies Allergy/AdvReac Type Severity Reaction Status Date / Time Penicillins Allergy Severe swelling Verified 10/20/23 10:51 adhesive tape [ADHESIVE TAPE] Allergy Intermediate RASH Verified 10/20/23 10:51 amoxicillin [AMOXICILLIN] Allergy Intermediate RASH,SWELLI Verified 10/20/23 10:51 NG ibuprofen [From Motrin] Allergy Intermediate Hypertensio Verified 10/20/23 10:51 n latex Allergy Intermediate Rash Verified 10/20/23 10:51 Review of Systems 2 Review of Systems: Yes all other systems are reviewed and are negative [facility] Past Medical History Onset Date is defined in the Problem List Problems that require an onset date and time if occurred within 24 hrs of arrival to the ED Aortic Dissection and Rupture; Neurologic impairment; Cardiopulmonary Arrest; Endotracheal Intubation; Insertion or Replacement of Mechanical Circulatory Assist Device Medical History (Updated 10/14/23 @ 16:00 by Jenny Bell MD) Essential hypertension Left shoulder pain Type 2 diabetes mellitus Hyperparathyroidism Erosive esophagitis Hypertension Acute diarrhea Pre-op examination Cervical radiculopathy Rash of foot Kiera albicans infection Cervicalgia Environmental allergies Hospital discharge follow-up MARY on CPAP Elevated red blood cell count Screening for hyperlipidemia Chronic pain syndrome Lumbar pain Encounter for annual routine gynecological examination Multiple air fluid levels of small intestine determined by X-ray Abdominal bloating Hypothyroid Sleep apnea Abdominal cramping Edema Anxiety with depression Chronic pain (Unknown) Gastroparesis Left knee pain Hypothyroidism Bilateral shoulder pain Hyperlipidemia LDL goal <70 Degeneration, intervertebral disc, cervical Spondylosis of cervical spine at multiple levels without myelopathy Sleep apnea Renal calculi Incontinence Goiter Disc degeneration, lumbar Spondylosis of lumbar region without myelopathy or radiculopathy Arthropathy of facet joint Insomnia LUDY (generalized anxiety disorder) Moderately severe recurrent major depression Diabetes mellitus Chronic pain syndrome Morbid (severe) obesity due to excess calories Fibromyalgia Small bowel motility disorder Chronic idiopathic constipation Asthma Surgical History History of knee replacement procedure of right knee History of hernia surgery Hx of colonoscopy History of esophagogastroduodenoscopy (EGD) History of cholecystectomy Delivery by section History of hysterectomy Family History Family History Father Past heart attack Anxiety Mother MOF (multiple organ failure) Brother HIV (human immunodeficiency virus infection) Sister Ovarian cancer Lupus Bone cancer Uterine cancer Tumor Daughter Guillain-[place] Sister Lupus History of open heart surgery Family/Other Depression FH: mental illness Maternal Aunt Breast cancer Maternal Aunt Tumor Social History Social History Household Members: None Household Members Other:: Housing: Apartment Are you a primary child care center assistant director to a significant other at home: No Do you presently have visiting nurse or other home services: Yes Alcohol intake: never Patient Tobacco Use Status: Never used Tobacco Smoked in Last 30 Days: No e-Cigarette/Vaping Use: Never Used Second Hand Smoke Exposure: Yes Use of substances other than those prescribed or required for medical reasons: No Advance Directives: Yes Advance Directives on File: Yes Advance Directives Date on File: 12/08/21 Patient : No service: No Current occupational status: unemployed and disabled Cognitive needs: Yes Hearing needs: No Vision needs: No Physical Exam ED Vital Signs: Vital Signs - 24 hr 10/23/23 14:38 10/23/23 15:25 Temperature 96.2 F L 98.5 F Pulse Rate 85 83 Respiratory Rate 16 18 Blood Pressure 136/79 132/77 Pulse Oximetry 96 98 Oxygen Delivery Method Room Air Room Air BMI result Body Mass Index 40.4 Nursing notes and vital signs reviewed. GENERAL APPEARANCE: A&0 x 4, generally well appearing, no acute distress HENMT: Normal to inspection, atraumatic, face symmetrical. Normal external ears, nose, and oropharynx clear. EYE: PERRLA, EOM intact, structures appear normal NECK: Supple without lymphadenopathy. No stiffness or restricted ROM. CHEST: Normal to inspection HEART: Normal rate and regular rhythm, normal S1/S2, no M/R/G LUNGS: LS CTA, moving air well. Able to speak in complete sentences. No crackles, wheezes, or rhonchi auscultated ABDOMEN: Soft, nontender, nondistended. Normal bowel sounds noted BACK: No CVAT, no obvious deformity EXTREMITIES: Decreased range of motion of left shoulder. No cyanosis, clubbing, or edema. Normal capillary refill. NEUROLOGICAL: Alert and oriented, moving all 4 extremities with equal strength. CN not formally tested but appearing grossly intact. Observed to ambulate with normal gait. Cognition normal SKIN: Warm and dry without any lesions, rash, or visible sores PSYCH: Cooperative, normal affect, normal thought process Medications Administered Discontinued Medications Generic Name Dose Route Start Last Admin Trade Name Freq PRN Reason Stop Dose Admin Oxycodone HCl 5 mg 10/23/23 16:11 10/23/23 16:16 Oxycodone Hcl Immed Release 5 Mg Tablet PO 10/23/23 16:12 5 mg ONCE ONE Administration Medical Decision Making Medical Decision Making MDM Narrative: Old records reviewed. Patient assessed in the emergency department with no acute distress noted. Plan for x-ray left shoulder to assess for acute fractures or dislocations as well as blood work to assess for infection. Oxycodone ordered for complaints of severe pain. Lab Data 10/23/23 14:59 10/23/23 14:59 Labs: Lab Results 10/23/23 Range/Units 14:59 WBC 12.2 H (4.8-10.8) X10*3/uL RBC 5.09 (4.20-5.50) X10*6/uL Hgb 11.1 L (12.0-16.0) g/dl Hct 37.4 (37.0-47.0) % MCV 73.5 L (80.0-98.0) fL MCH 21.8 L (27.0-33.0) pg MCHC 29.7 L (31.0-35.0) g/dl RDW 18.3 H (11.0-16.0) % Plt Count 293 (160-400) X10*3/uL MPV 10.2 (9.4-12.3) fL Immature Gran % (Auto) 0.6 H (0.0-0.4) % Neut % (Auto) 77.7 H (45-73) % Lymph % (Auto) 14.8 L (20-40) % Ceiba % (Auto) 4.4 (2-11) % Eos % (Auto) 2.2 (0-4) % Baso % (Auto) 0.3 (0-2) % Lymph # (Auto) 1.8 (1.2-4.9) X10*3/uL Ceiba # (Auto) 0.5 (0.1-1.2) X10*3/uL Eos # (Auto) 0.3 (0.0-0.4) X10*3/uL Baso # (Auto) 0.0 (0.0-0.2) X10*3/uL Abs Immat Gran (auto) 0.07 H (0.00-0.03) X10*3/uL Absolute Neuts (auto) 9.5 H (2.0-8.3) x10*3/uL Absolute Nucleated RBC 0.000 (0.0-0.012) X10*3/uL Nucleated RBC % (auto) 0.0 (0.0-0.2) /100WBC PT 12.5 (11.1-13.3) SEC INR 1.0 (0.9-1.1) Sodium 140 (135-145) mmol/L Potassium 4.5 (3.3-5.1) mmol/L Chloride 106 (96-108) mmol/L Carbon Dioxide 27 (22-29) mmol/L Anion Gap 12 (12-20) BUN 13 (9-16) mg/dL Creatinine 0.74 (0.5-1.4) mg/dL Estim Creat Clear Calc 110.8 Estimated GFR > 60 Random Glucose 150 H (60-115) mg/dL Calcium 9.6 D (8.4-10.2) mg/dL Total Bilirubin 0.3 (0.0-1.0) mg/dL AST 17 (5-31) U/L ALT 22 (0-31) U/L Alkaline Phosphatase 106 (39-117) U/L Troponin I High Sens < 2.7 (<3.5-17.0) ng/L Total Protein 7.6 (6.5-8.0) g/dL Albumin 3.8 (3.5-5.0) g/dL Discharge Plan Discharge Prescriptions: No Action albuterol sulfate [Ventolin HFA] 90 mcg/actuation HFA aerosol inhaler 1 inh inhalation Q4H PRN (Reason: Shortness Of Breath Or Wheezing) Qty: 8.5 3RF insulin glargine [Lantus U-100 Insulin] 100 unit/mL solution 15 unit subcut BEDTIME 90 Days Qty: 13.5 1RF Trulicity 0.75 mg/0.5 mL pen injector 0.75 mg subcut QWEEK Qty: 2 5RF metoprolol succinate 50 mg tablet extended release 24 hr 50 mg PO DAILY 90 Days Qty: 90 1RF metoclopramide HCl [Reglan] 10 mg tablet 10 mg PO QIDACHS Qty: 120 1RF trimethobenzamide 300 mg capsule 300 mg PO Q6H Qty: 20 0RF clonidine HCl 0.1 mg tablet 0.1 mg PO TID PRN (Reason: Anxiety) atorvastatin 10 mg tablet 10 mg PO BEDTIME doxepin 25 mg capsule 25 - 50 mg PO BEDTIME PRN (Reason: insomnia) hydroxyzine HCl 50 mg tablet 50 mg PO TID PRN (Reason: itch) trazodone 150 mg tablet 150 mg PO BEDTIME PRN (Reason: insomnia) insulin lispro 100 unit/mL solution 5 unit subcut TID levothyroxine 112 mcg tablet 112 mcg PO DAILY@0600 acetaminophen 650 mg tablet extended release 650 mg PO Q8H PRN (Reason: arthritis) amlodipine 10 mg tablet 10 mg PO DAILY Incruse Ellipta 62.5 mcg/actuation blister with device 1 inh INHALATION DAILY lorazepam 1 mg tablet 1 mg PO DAILY PRN (Reason: ANXIETY) sennosides [senna] 8.6 mg tablet 17.2 mg PO BEDTIME PRN (Reason: constipation) pantoprazole 40 mg tablet,delayed release (DR/EC) 40 mg PO BID duloxetine 60 mg capsule,delayed release(DR/EC) 60 mg PO QAM dicyclomine 10 mg capsule 20 mg PO QID PRN (Reason: abdominal pain) 30 Days Qty: 120 0RF gabapentin 300 mg capsule 300 mg PO TID 30 Days Qty: 90 2RF ondansetron 4 mg tablet,disintegrating 4 mg PO BID PRN (Reason: nausea and vomiting) 7 Days Qty: 14 0RF
[2023-10-23] MEDS: oxyCODONE HCl Immed Release 5 MG TABLET PO (16:16)
--- NOTE | 2023-10-23 16:21 | PC.NURSE ---
pt tearful d/t pain increase at this time. hot pack applied to left shoulder. pt spoke with/assessed by ED provider. medication administered per provider order. will reassess. pt awaiting on xray results at this time. call reyes placed within reach.
[2023-10-23 17:20] VITALS: BP 148/70; PULSE 76; RESP 18; O2SAT 94
[2023-10-23 17:20] LABS: Troponin-I High Sensitivity < 2.7 ng/L (<3.5-17.0)
== END 2023-10-23 18:10 | disposition home or self-care (01) ==
PROVIDERS: Nurse Practitioner Family; Registered Nurse Emergency; Emergency Provider Emergency Medicine Emergency Medical Services; PCP Internal Medicine
DX: S46.912A Strain of unspecified muscle, fascia and tendon at shoulder and upper arm level, left arm, initial encounter (principal); X58.XXXA Exposure to other specified factors, initial encounter; G89.29 Other chronic pain; M25.512 Pain in left shoulder; Y93.9 Activity, unspecified; Y92.9 Unspecified place or not applicable; Y99.9 Unspecified external cause status
CPT/HCPCS: 36415; 73030; 80053; 84484; 85025; 85610; 93005; 99283; 99285

== ENCOUNTER → 2023-10-23 14:42 | Outpatient (BNV) | payer OTHER, SELFPAY | PROVIDERS: Emergency Provider Emergency Medicine Emergency Medical Services; PCP Internal Medicine; Visit Provider Internal Medicine | DX: M25.512 Pain in left shoulder (principal) | CPT/HCPCS: 93010 ==

== ENCOUNTER 2024-01-03 09:50 | Outpatient (AMB) | payer OTHER, SELFPAY ==
--- NOTE | 2024-01-03 09:50 | A.OFFVIS_ITS ---
Intake Intake Visit Reasons: 2nd opinion per January Intake Note: Bonnie presents as a video call for a 2nd opinion from January. CC: soft bowels, pains in her stomach. Not diarrhea. Data Communications Technician Required: No Allergies Penicillins Allergy (Severe, Verified 01/03/24 09:51) swelling adhesive tape [ADHESIVE TAPE] Allergy (Intermediate, Verified 01/03/24 09:51) RASH amoxicillin [AMOXICILLIN] Allergy (Intermediate, Verified 01/03/24 09:51) RASH,SWELLING ibuprofen [From Motrin] Allergy (Intermediate, Verified 01/03/24 09:51) Hypertension latex Allergy (Intermediate, Verified 01/03/24 09:51) Rash HPI 2nd opinion per January HPI Details 58-year-old female with pertinent histor y of essential hypertension, mixed hyperlipidemia, mood disorder, insulin-dependent diabetes mellitus, hypothyroidism, gastroesophageal reflux disease, congestive heart failure with preserved ejection fraction, MARY on CPAP, asthma not on home oxygen who I am seeing for f/u for abdominal pain, intractable vomiting and diarrhea. RECAP: I saw the patient as an in patient 09/25 Patient had prolonged admission with abdominal pain. she had EGD and colonoscopy with colonic dysmotility, internal hemorrhoids and cecal polyp noted. she also had stool pos for c diff PCR but neg for toxin. she was d/c'ed on vancomycin and mesalamine. she had worsening nausea, non bloody emesis and diffuse abdominal pain, crampy and 10/10 in severity without any relieving factors, worse with food. labs with worsening WCC and lactate elevation. Her diet was gradually advanced with good tolerance and her pain improved. She completed PO vancomycin as recommended from prior admission, when she was found to have positive C.difficile gene but negative toxin INTERIM: she has RLQ pain, ongoing as before for years the pain goes into the middle she denies nausea or vomiting she hardly eats but gains weight easily stool is almost like diarrhea no blood in stool she gets chills sometimes she denies apthous ulcers she has joint pains, in hands, feet, shoulders, improves as day progresses she has morning stiffness she has itching on skin , bruises on her skkin v easily strong Fh of lupus RF and JENNY neg from 2019 exaM: high BMI relaxed hand is swollen A/P: 1/ abdominal pain, polyarthropathy, stro ng Fh of Lupus she may have crohsn or other CTD--had C diff but f/u testing was negative PLAN: 1/ Capsule endo 2/ rheum referral 3/ labs in [facility], RF, JENNY, Igg, CRP, fecal lactoferrin , JACQUES, ANCA 4/ CXR to r/o sarcoid and hand X R PFSH Medical History (Updated 01/03/24 @ 10:29 by Bunny Ballard MD) Essential hypertension Left shoulder pain Type 2 diabetes mellitus Hyperparathyroidism Erosive esophagitis Hypertension Acute diarrhea Pre-op examination Cervical radiculopathy Rash of foot Kiera albicans infection Cervicalgia Environmental allergies Hospital discharge follow-up MARY on CPAP Elevated red blood cell count Screening for hyperlipidemia Chronic pain syndrome Lumbar pain Encounter for annual routine gynecological examination Multiple air fluid levels of small intestine determined by X-ray Abdominal bloating Hypothyroid Sleep apnea Abdominal cramping Edema Anxiety with depression Chronic pain (Unknown) Gastroparesis Left knee pain Hypothyroidism Bilateral shoulder pain Hyperlipidemia LDL goal <70 Degeneration, intervertebral disc, cervical Spondylosis of cervical spine at multiple levels without myelopathy Sleep apnea Renal calculi Incontinence Goiter Disc degeneration, lumbar Spondylosis of lumbar region without myelopathy or radiculopathy Arthropathy of facet joint Insomnia LUDY (generalized anxiety disorder) Moderately severe recurrent major depression Diabetes mellitus Chronic pain syndrome Morbid (severe) obesity due to excess calories Fibromyalgia Small bowel motility disorder Chronic idiopathic constipation Asthma Surgical History History of knee replacement procedure of right knee History of hernia surgery Hx of colonoscopy History of esophagogastroduodenoscopy (EGD) History of cholecystectomy Delivery by section History of hysterectomy Family History Father Past heart attack Anxiety Mother MOF (multiple organ failure) Brother HIV (human immunodeficiency virus infection) Sister Ovarian cancer Lupus Bone cancer Uterine cancer Tumor Daughter Guillain-[place] Sister Lupus History of open heart surgery Family/Other Depression FH: mental illness Maternal Aunt Breast cancer Maternal Aunt Tumor Social History Household Members: None Household Members Other:: Housing: Apartment Are you a primary personal care assistant to a significant other at home: No Do you presently have visiting nurse or other home services: Yes Alcohol intake: never Patient Tobacco Use Status: Never used Tobacco e-Cigarette/Vaping Use: Never Used Second Hand Smoke Exposure: Yes Advance Directives Date on File: 12/08/21 service: No Current occupational status: unemployed and disabled Cognitive needs: Yes Hearing needs: No Vision needs: No Assessment & Plan Assessment & Plan (1) Left shoulder pain: Code(s): M25.512 - Pain in left shoulder Plan: PLAN: 1/ Capsule endo 2/ rheum referral 3/ labs in [facility], RF, JENNY, Igg, CRP, fecal lactoferrin , JACQUES, ANCA 4/ CXR to r/o sarcoid and hand X R (2) Right shoulder pain: Code(s): M25.511 - Pain in right shoulder Plan: PLAN: 1/ Capsule endo 2/ rheum referral 3/ labs in [facility], RF, JENNY, Igg, CRP, fecal lactoferrin , JACQUES, ANCA 4/ CXR to r/o sarcoid and hand X R (3) Polyarthropathy: Code(s): M13.0 - Polyarthritis, unspecified Plan: PLAN: 1/ Capsule endo 2/ rheum referral 3/ labs in [facility], RF, JENNY, Igg, CRP, fecal lactoferrin , JACQUES, ANCA 4/ CXR to r/o sarcoid and hand X R Orders: Orders XR hand RT 2V Today M13.0 - Polyarthritis, unspecified, M25.511 - Pain in right shoulder, M25.512 - Pain in left shoulder C Reactive Protein Today M13.0 - Polyarthritis, unspecified, M25.511 - Pain in right shoulder, M25.512 - Pain in left shoulder Rheumatoid Factor Today M13.0 - Polyarthritis, unspecified, M25.511 - Pain in right shoulder, M25.512 - Pain in left shoulder Lyme IgG/IgM w/reflex to WB Today M13.0 - Polyarthritis, unspecified, M25.511 - Pain in right shoulder, M25.512 - Pain in left shoulder Cyclic Citrullinated Peptide Today M13.0 - Polyarthritis, unspecified, M25.511 - Pain in right shoulder, M25.512 - Pain in left shoulder XR hand LT 2V Today M13.0 - Polyarthritis, unspecified, M25.511 - Pain in right shoulder, M25.512 - Pain in left shoulder ANCA Vasculitides Today M13.0 - Polyarthritis, unspecified, M25.511 - Pain in right shoulder, M25.512 - Pain in left shoulder Angiotensin Converting Enzyme Today M13.0 - Polyarthritis, unspecified, M25.511 - Pain in right shoulder, M25.512 - Pain in left shoulder XR chest 2V Today M13.0 - Polyarthritis, unspecified, M25.511 - Pain in right shoulder, M25.512 - Pain in left shoulder Immunoglobulin G Subclasses Today M13.0 - Polyarthritis, unspecified, M25.511 - Pain in right shoulder, M25.512 - Pain in left shoulder Hepatitis A,B,C Profile Today M13.0 - Polyarthritis, unspecified, M25.511 - Pain in right shoulder, M25.512 - Pain in left shoulder Lactoferrin, Fecal, Quant. Today K51.50 - Left sided colitis without complications, M13.0 - Polyarthritis, unspecified, M25.511 - Pain in right shoulder, M25.512 - Pain in left shoulder Erythrocyte Sedimentation Rate Today M13.0 - Polyarthritis, unspecified, M25.511 - Pain in right shoulder, M25.512 - Pain in left shoulder Referrals Rheumatology Referral M13.0 - Polyarthritis, unspecified Telehealth Telehealth Location of provider rendering services: practice address Location of patient: address on file Patient Identification confirmed using: Name, : Yes Telehealth method: video Patient verbally consented to treatment: Yes Patient verbally consented to billing insurance company: Yes Patient informed of any privacy concerns related to visit: Yes Minutes spent on Phone/Video with Pt.: 11 Coding Level of Care Code Tele Est Pt Level 4 (77721) Diagnoses Left shoulder pain M25.512 Right shoulder pain M25.511 Polyarthropathy M13.0
== END 2024-01-03 11:32 | disposition home or self-care (01) ==
LOC: HO.HGI 09:50
PROVIDERS: PCP Internal Medicine; Visit Provider Internal Medicine Gastroenterology
DX: M25.512 Pain in left shoulder (principal); M25.511 Pain in right shoulder; M13.0 Polyarthritis, unspecified
CPT/HCPCS: 99214

== ENCOUNTER → 2024-01-03 09:50 | Outpatient (BNVA) | payer OTHER, SELFPAY | PROVIDERS: PCP Internal Medicine; Visit Provider Internal Medicine Gastroenterology ==

== ENCOUNTER 2024-02-14 14:47 | Outpatient (AMB) | payer OTHER, SELFPAY ==
--- NOTE | 2024-02-14 14:49 | A.OFFVIS_ITS ---
Vital Signs 02/14/24 15:00 Height 5 ft 7 in Weight 261 lb 2 oz BMI 40.9 BP 140/96 H Blood Pressure Location Lt brachial Position Sitting Respiration 16 Pulse 71 Pulse Source Pulse Oximeter Pulse Oximetry (%) 96 Oxygen Delivery Method Room Air Intake Visit Reasons: Injection Discussion Intake Note: Patient comes in for injection discussion. Reports pain 10/10. Allergies Penicillins Allergy (Severe, Verified 02/14/24 14:55) swelling adhesive tape [ADHESIVE TAPE] Allergy (Intermediate, Verified 02/14/24 14:55) RASH amoxicillin [AMOXICILLIN] Allergy (Intermediate, Verified 02/14/24 14:55) RASH,SWELLING ibuprofen [From Motrin] Allergy (Intermediate, Verified 02/14/24 14:55) Hypertension latex Allergy (Intermediate, Verified 02/14/24 14:55) Rash HPI Comments Details: Bonnie is back in my office with complains on mostly pain in the left shoulder. She reports that among all of her pains her left shoulder is bothering her the most. She reports that she can not sleep normally because of this pain. She reports her pain is 10/10. On examination there is no redness however there is significant tenderness on palpation in the anterior lateral and posterior surfaces of the shoulder. The range of motion is very limited. Last shoulder x-ray was done 1 year ago and did not demonstrate any shoulder arthritis. Nevertheless I would like to send her for the consultation with orthopedic surgery. I also will start her on moderate doses of the muscle relaxants to help her to sleep at night. Prior: ? I performed intra-articular steroid injections bilateral L4-5 and L5-S1- this injection did not help the patient.? This patient is suspended in our opioid program because she did not show here for her pill count.? She said that she was sick with headache, he was recommended to go to emergency room or to primary care physician and test herself for COVID-19 infection.? Unfortunately she adamantly refused to go for testing.? Therefore she will be suspended according to her risk for 1 year. ?She complains on pain in the cervical spine.? She reports radiation of the pain into the right shoulder.? She reports numbness and tingling sensation in the neck.? There is also positive Lhermitte sign on physical examination.? That may be evident of cervical spinal stenosis.? MRI dictation is as below and is evident for some moderate to severe or fply-ed-wqliycns foraminal stenosis un multiple levels, some advanced arthritis on multiple levels, no central canal stenosi PFSH Medical History (Updated 01/03/24 @ 10:29 by Bunny Ballard MD) Essential hypertension Left shoulder pain Type 2 diabetes mellitus Hyperparathyroidism Erosive esophagitis Hypertension Acute diarrhea Pre-op examination Cervical radiculopathy Rash of foot Kiera albicans infection Cervicalgia Environmental allergies Hospital discharge follow-up MARY on CPAP Elevated red blood cell count Screening for hyperlipidemia Chronic pain syndrome Lumbar pain Encounter for annual routine gynecological examination Multiple air fluid levels of small intestine determined by X-ray Abdominal bloating Hypothyroid Sleep apnea Abdominal cramping Edema Anxiety with depression Chronic pain (Unknown) Gastroparesis Left knee pain Hypothyroidism Bilateral shoulder pain Hyperlipidemia LDL goal <70 Degeneration, intervertebral disc, cervical Spondylosis of cervical spine at multiple levels without myelopathy Sleep apnea Renal calculi Incontinence Goiter Disc degeneration, lumbar Spondylosis of lumbar region without myelopathy or radiculopathy Arthropathy of facet joint Insomnia LUDY (generalized anxiety disorder) Moderately severe recurrent major depression Diabetes mellitus Chronic pain syndrome Morbid (severe) obesity due to excess calories Fibromyalgia Small bowel motility disorder Chronic idiopathic constipation Asthma Surgical History History of knee replacement procedure of right knee History of hernia surgery Hx of colonoscopy History of esophagogastroduodenoscopy (EGD) History of cholecystectomy Delivery by section History of hysterectomy Family History Father Past heart attack Anxiety Mother MOF (multiple organ failure) Brother HIV (human immunodeficiency virus infection) Sister Ovarian cancer Lupus Bone cancer Uterine cancer Tumor Daughter Guillain-[place] Sister Lupus History of open heart surgery Family/Other Depression FH: mental illness Maternal Aunt Breast cancer Maternal Aunt Tumor Social History Household Members: None Household Members Other:: Housing: Apartment Are you a primary youth care specialist to a significant other at home: No Do you presently have visiting nurse or other home services: Yes Alcohol intake: never Patient Tobacco Use Status: Never used Tobacco e-Cigarette/Vaping Use: Never Used Second Hand Smoke Exposure: Yes Advance Directives Date on File: 12/08/21 service: No Current occupational status: unemployed and disabled Cognitive needs: Yes Hearing needs: No Vision needs: No Review of Systems Const All systems reviewed & are unremarkable except as noted in HPI and below ENT Reports Normal hearing present Neuro Reports Normal hearing present, Denies Abnormal speech present, Denies confusion and Denies Sensory deficit (Neuro) Psych Denies confusion Physical Exam Const General: No confusion Nutritional Appearance: obese morbidly obese Orientation/consciousness: No confusion Eyes General: appearance normal, both eyes and all related structures Pupils: Equal, round and reactive pupils present EOM: EOMs intact bilaterally Neck Neck: Yes full ROM Chest Chest palpation & inspection: normal inspection of the chest Resp Effort & Inspection: normal respiratory effort, able to speak in complete sentences, normal respiratory pattern, no audible wheezes and no cough Cardio Jugular venous distension: no JVD GI Inspection: Yes normal to inspection Back/Spine/Pelvis Other: Left heel inspection has well-healed scar on the middle well-healed. Patient is complaining mostly on the pain in the lumbar spine with radiation in bilateral lower extremities on the posterior surfaces of both extremities to the level below the knees bilateral about 3 in but not lower than this level she reports the it bending forward as well as bending backwards aggravates her pain. Bending forward certain degree helps her pain sometimes. The strands of bilateral lower extremities symmetrical and equal. She is using cane for ambulation for knee instability. She had total knee replacement right knee 5 years ago. Reflexes of the lower extremities +1 and symmetrical patellar and Achilles. The sensation of the legs is not affected. She has of morbidly obese. Her obesity is truncal she also has large breasts. She has pain in in the neck which she may be related to macromastia. Neuro General: No confusion Cranial nerves: Yes Equal, round and reactive pupils present and Yes Normal hearing present Speech: No Abnormal speech present Gait exam (Neuro): Normal gait present Motor exam (neuro): 5/5 motor strength present throughout Sensory Exam: No Sensory deficit (Neuro) Extrem Other: Tenderness on palpation in the projection of the left shoulder anterior posterior and lateral surfaces of the shoulder exhibit allodynia Minimal radiation of the pain down to the left upper extremity as well as onto the anterior upper chest as well as into lateral left neck. Psych Speech and movement: Normal speech and movement present Affect: normal affect Attitude: cooperative Thought process: Normal thought process present Thought content: Normal thought content present Insight: Good insight present (Psych) Judgement: Good judgement present (Psych) Results Reviewed Results Reviewed: 12/01/2021 MRI lumbar spine Moderate disc space height loss at C5-C6 and C6-C7 with mild degrees of anterior marginal spondylosis. Minimal disc desiccation at these levels and at C2-C3. Endplates appear intact. BONE MARROW: No significant marrow-replacing process or bone marrow edema. C2-C3: Central to right paramedian disc osteophyte complex noted with slight flattening of the dural sac asymmetric to the right without cord impingement or significant canal stenosis. Mild facet arthropathy noted on the right without significant bony neural foraminal stenosis. C3-C4: Minimal posterior disc osteophyte complex noted with minimal flattening of the ventral dural sac without cord impingement or canal stenosis. Mild uncovertebral spurring is noted with minor facet arthropathy on the right and zjwo-zm-nbyddoyb facet arthropathy on the left. There is moderate left-sided neural foraminal stenosis. Mild right-sided neural foraminal stenosis. C4-C5: Small left paramedian disc herniation noted with minimal indentation of the left ventral thecal sac. Uncovertebral spurring noted, right more than left without significant facet arthropathy. No significant canal stenosis. There is mild left-sided and vfwl-tw-fkxtrkzm right-sided neural foraminal stenosis. C5-C6: Posterolateral disc osteophyte complex noted with mild flattening of the ventral dural sac with associated anterolisthesis without significant spinal canal stenosis or cord impingement. There is uncovertebral spurring bilaterally with moderate right-sided and mild left-sided neural foraminal stenosis. C6-C7: Broad-based disc protrusion and mild flattening of the ventral dural sac without cord impingement or canal stenosis. No significant neural foraminal stenosis. C7-T1: No disc herniation. No significant DJD, canal or neural foraminal stenosis. The cervical and visualized upper thoracic spinal cord is normal in morphology, caliber and signal intensity throughout. Normal signal voids are seen in the visualized major arterial neck vessels. IMPRESSION: 1. Mild lordotic reversal at C5-C6, with trace anterolisthesis at C4-C5 and C5-C6 and discogenic degenerative changes primarily at C5-C6 and C6-C7 with spondylosis. 2. Multilevel disc osteophyte complexes without cord impingement or significant spinal canal stenosis. Small left subarticular disc herniation at C4-C5 encroaching on the proximal left neural foramen. 3. Multilevel uncovertebral and facet arthropathy as described above, with multilevel mild, sony-jh-twxzsbbu and moderate degrees of neural foraminal stenosis as detailed by level above. Assessment & Plan Assessment & Plan (1) Arthropathy of facet joint: Code(s): M47.819 - Spondylosis without myelopathy or radiculopathy, site unspecified Category: Medical (2) Spondylosis of lumbar region without myelopathy or radiculopathy: Code(s): M47.816 - Spondylosis without myelopathy or radiculopathy, lumbar region Category: Medical (3) Disc degeneration, lumbar: Code(s): M51.36 - Other intervertebral disc degeneration, lumbar region Category: Medical (4) Chronic pain syndrome: Code(s): G89.4 - Chronic pain syndrome Category: Medical (5) Spondylosis of cervical spine at multiple levels without myelopathy: Code(s): M47.812 - Spondylosis without myelopathy or radiculopathy, cervical region Category: Medical (6) Degeneration, intervertebral disc, cervical: Code(s): M50.30 - Other cervical disc degeneration, unspecified cervical region Category: Medical (7) Left shoulder pain: Code(s): M25.512 - Pain in left shoulder Category: Medical Plan This patient is complaining today mostly on the left shoulder pain. She reports that this pain prevents her from getting good night's sleep and the pain is 10/10. I examined her shoulder today. See as above. Although there is no evidence of arthritis on the x-ray done 1 year ago I still believe that it probably is warranted to examine this patient by Orthopedic surgery. To help her to sleep at night I start her on methocarbamol 750 mg q.h.s.. I recommended her to give me a call the very moment she will finish her evaluation with orthopedic surgery and schedule appointment in this office. Orders: Referrals Orthopedics Referral M25.512 - Pain in left shoulder Medications: New methocarbamol 750 mg PO BEDTIME 30 days 30 tabs 1RF Coding Level of Care Code Est Pt Level 3 (91470) Diagnoses Arthropathy of facet joint M47.819 Spondylosis of lumbar region without myelopathy or radiculopathy M47.816 Disc degeneration, lumbar M51.36 Chronic pain syndrome G89.4 Spondylosis of cervical spine at multiple levels without myelopathy M47.812 Degeneration, intervertebral disc, cervical M50.30 Left shoulder pain M25.512
[2024-02-14 15:00] VITALS: BP 140/96; PULSE 71; RESP 16; O2SAT 96; BMI 40.9
== END 2024-02-14 15:07 | disposition home or self-care (01) ==
PROVIDERS: PCP Internal Medicine; Visit Provider Anesthesiology
DX: M47.819 Spondylosis without myelopathy or radiculopathy, site unspecified (principal); M47.816 Spondylosis without myelopathy or radiculopathy, lumbar region; M51.36 Other intervertebral disc degeneration, lumbar region; G89.4 Chronic pain syndrome; M47.812 Spondylosis without myelopathy or radiculopathy, cervical region; M50.30 Other cervical disc degeneration, unspecified cervical region; M25.512 Pain in left shoulder
CPT/HCPCS: 99213

== ENCOUNTER → 2024-02-14 14:47 | Outpatient (BNVA) | payer OTHER, SELFPAY | PROVIDERS: PCP Internal Medicine; Visit Provider Anesthesiology | DX: M25.512 Pain in left shoulder (principal); M47.819 Spondylosis without myelopathy or radiculopathy, site unspecified; M47.816 Spondylosis without myelopathy or radiculopathy, lumbar region; M47.812 Spondylosis without myelopathy or radiculopathy, cervical region; M51.36 Other intervertebral disc degeneration, lumbar region; M50.30 Other cervical disc degeneration, unspecified cervical region; G89.4 Chronic pain syndrome | CPT/HCPCS: 99212 ==

== ENCOUNTER 2024-02-17 10:25 | Outpatient (AMB) | payer OTHER, SELFPAY ==
--- OUTSIDE RECORDS SUMMARY | 2024-02-17 10:25 | XMS_ITS | Patient Health Record ---
Author Organization [facility] Address [address] [place] [address] Care Team Providers Care Subway Train Operator Name Role Phone Capo BOBBY, Vinod Primary Care Provider Shaquille Sofia [phone] REASON FOR REFERRAL No Information MEDICATIONS Medication [...] Insured Coverage Start Date Coverage End Date [facility] [address] [address] [place], [place] [id number] LUCIANO ALONDRA Self - patient is the insured
--- NOTE | 2024-02-17 10:30 | MHC.PC.OV ---
Vital Signs 02/17/24 10:34 Height 5 ft 7 in Weight 269 lb 2.951 oz BMI 42.2 BP 130/72 Blood Pressure Location Lt brachial Position Sitting Intake Visit Reasons: Annual Exam Intake Note: Patient here for an annual physical exam, c/o right side abdominal pain, weight, itch all over body Visual Display Associate Required: No Accompanied by: Self / Same As Patient Allergies Penicillins Allergy (Severe, Verified 02/17/24 10:51) swelling adhesive tape [ADHESIVE TAPE] Allergy (Intermediate, Verified 02/17/24 10:51) RASH amoxicillin [AMOXICILLIN] Allergy (Intermediate, Verified 02/17/24 10:51) RASH,SWELLING ibuprofen [From Motrin] Allergy (Intermediate, Verified 02/17/24 10:51) Hypertension latex Allergy (Intermediate, Verified 02/17/24 10:51) Rash Medication List - Last Reconciled 02/17/24 by Jenny Bell MD acetaminophen ER 650 mg PO Q8H PRN 30 days albuterol sulfate 90 mcg/actuation (Ventolin HFA) 1 puff PO Q4H PRN 30 days atorvastatin 10 mg PO BEDTIME blood sugar diagnostic (FreeStyle Test strips) Use 1 test strip once a day bumetanide 2 mg PO BID clonidine HCl 0.1 mg PO TID dicyclomine 20 mg (2 x 10 mg) PO QID PRN 30 days dulaglutide (Trulicity) 0.75 mg (0.5 mL) subcut QWEEK duloxetine 60 mg PO QAM gabapentin 300 mg PO TID 30 days hydroxyzine HCl mg PO insulin glargine (Lantus U-100 Insulin) 15 units (0.15 mL) subcut BEDTIME 90 days insulin lispro 5 units (0.05 mL) subcut TID 30 days levothyroxine 112 mcg PO DAILY@0600 lorazepam 1 mg PO DAILY PRN meclizine 25 mg PO BID PRN 30 days metoclopramide HCl (Reglan) 10 mg PO QIDACHS metoprolol succinate ER 50 mg PO DAILY 90 days sennosides (senna) 17.2 mg PO BEDTIME PRN tiotropium bromide 2.5 mcg/actuation (Spiriva Respimat) 2 puffs inhalation DAILY trazodone 150 mg PO BEDTIME PRN umeclidinium 62.5 mcg/actuation (Incruse Ellipta) 1 inh inhalation DAILY zolpidem 5 mg PO BEDTIME PRN Tobacco use date assessed: 10/14/23 Dental Screening Dental Screen Date: 10/14/23 HPI HPI Comments History of Present Illness Details This is a 58-year-old female with diabetes mellitus type 2 on long-term current use of insulin complicated by gastroparesis, morbid obesity and moderate to severe major depression that comes for her physical exam. Walks with a cane for gait stability. Last diabetic eye exam was 2023 as per patient. A1c within goal. Gastroparesis stable with metoclopramide and follow by Gastroenterology. She is morbidly obese with a BMI of 42.2 and would like weight loss surgery. Depression well controlled with meds and follow by counseling. Last mammogram was 2021 and this will be reordered. Colonoscopy done September 2023 showing tubular adenoma and follow by Gastroenterology. Occasional dyspnea on exertion but no chest pain. Occasional pruritus. [facility] Medical History (Updated 02/17/24 @ 12:17 by Jenny Bell MD) Essential hypertension Left shoulder pain Type 2 diabetes mellitus Hyperparathyroidism Erosive esophagitis Hypertension Acute diarrhea Pre-op examination Cervical radiculopathy Rash of foot Kiera albicans infection Cervicalgia Environmental allergies Hospital discharge follow-up MARY on CPAP Elevated red blood cell count Screening for hyperlipidemia Chronic pain syndrome Lumbar pain Encounter for annual routine gynecological examination Multiple air fluid levels of small intestine determined by X-ray Abdominal bloating Hypothyroid Sleep apnea Abdominal cramping Edema Anxiety with depression Chronic pain (Unknown) Gastroparesis Left knee pain Hypothyroidism Bilateral shoulder pain Hyperlipidemia LDL goal <70 Degeneration, intervertebral disc, cervical Spondylosis of cervical spine at multiple levels without myelopathy Sleep apnea Renal calculi Incontinence Goiter Disc degeneration, lumbar Spondylosis of lumbar region without myelopathy or radiculopathy Arthropathy of facet joint Insomnia LUDY (generalized anxiety disorder) Moderately severe recurrent major depression Diabetes mellitus Chronic pain syndrome Morbid (severe) obesity due to excess calories Fibromyalgia Small bowel motility disorder Chronic idiopathic constipation Asthma Surgical History History of knee replacement procedure of right knee History of hernia surgery Hx of colonoscopy History of esophagogastroduodenoscopy (EGD) History of cholecystectomy Delivery by section History of hysterectomy Family History Father Past heart attack Anxiety Mother MOF (multiple organ failure) Brother HIV (human immunodeficiency virus infection) Sister Ovarian cancer Lupus Bone cancer Uterine cancer Tumor Daughter Guillain-[place] Sister Lupus History of open heart surgery Family/Other Depression FH: mental illness Maternal Aunt Breast cancer Maternal Aunt Tumor Social History Household Members: None Household Members Other:: Housing: Apartment Are you a primary care provider to a significant other at home: No Do you presently have visiting nurse or other home services: Yes Alcohol intake: never Patient Tobacco Use Status: Never used Tobacco e-Cigarette/Vaping Use: Never Used Second Hand Smoke Exposure: Yes Advance Directives Date on File: 12/08/21 service: No Current occupational status: unemployed and disabled Cognitive needs: Yes Hearing needs: No Vision needs: No Questionnaire Thrive Questionnaire Date Thrive assessed: 10/14/23 LUDY-7 AMB Questionnaire LUDY-7 Date LUDY - 7 assessed: 10/14/23 Source: Developed by Drs. Shaquille Hitchcock, Janae Devlin, Avery Cutler and colleagues, with an educational carlos from [employer] & other things you bake. Review of Systems Const All systems reviewed & are unremarkable except as noted in HPI and below Card Denies chest pain at rest, Denies chest pain with activity, Denies edema, Denies irregular heart rhythm, Denies claudication, Denies dyspnea, Reports dyspnea on exertion, Denies orthopnea, Denies paroxysmal nocturnal dyspnea and Denies slow heart rate Resp Denies cough, Denies dyspnea and Reports dyspnea on exertion Aller/Immun Reports urticaria Physical exam (Primary Care) Vital Signs: Last Vital Signs BP 130/72 02/17/24 10:34 BMI result Body Mass Index 42.2 Tobacco/Smoking Status: Tobacco use Status Tobacco use date assessed 10/14/23 02/17/24 10:47 Patient Tobacco Use Status Never used Tobacco 02/17/24 10:47 Tobacco use type 12/31/23 15:40 e-Cigarette/Vaping Use Never Used 02/17/24 10:47 Thrive Assessment: Date of Thrive Assessment Date Thrive assessed 10/14/23 02/17/24 10:47 Const Orientation/consciousness: patient oriented x3 Limitations: ambulation with cane HENMT Head: Yes normal to inspection, Yes normocephalic and Yes atraumatic Ears: external ears normal Eyes General: appearance normal, both eyes and all related structures Eyelids: Yes eyelids normal Conjunctivae: conjunctivae normal Neck Neck: Yes normal visual inspection and Yes supple Resp Effort & Inspection: normal respiratory effort Auscultation: clear to auscultation bilaterally Cardio Jugular venous distension: no JVD Rate: regular rate Rhythm: regular rhythm Heart sounds: S1 normal heart sound present and S2 normal heart sound present GI Inspection: Yes normal to inspection Palpation (GI): Soft to palpation and nontender Auscultation: normal bowel sounds Skin General skin exam: no rashes or lesions noted Neuro General: patient oriented x3 and no focal motor deficits Extrem General: Yes full ROM Psych Appearance: grossly normal Results AMB Hemoglobin A1c AMB Hemoglobin A1c 6.8 % Last Edit by KAN De Jesus on 02/17/24 11:00 Results Reviewed Results Reviewed: Laboratory Last Values Hgb A1c (Clinic) 6.8 % (4.0-6.0) H 02/17/24 10:53 Assessment and Plan Assessment & Plan (1) Physical exam: Code(s): Z00.00 - Encounter for general adult medical examination without abnormal findings Plan: Repeat in a year. (2) Diabetes mellitus: Code(s): E11.9 - Type 2 diabetes mellitus without complications Qualifiers: Diabetes mellitus type: type 2 Diabetes mellitus detention insulin use: without intermodal customer service use Diabetes mellitus complication status: without complication Qualified Code(s): E11.9 - Type 2 diabetes mellitus without complications Plan: Continue insulin. A1c goal is equal or less than 7%. (3) Morbid (severe) obesity due to excess calories: Code(s): E66.01 - Morbid (severe) obesity due to excess calories Plan: Referred to weight management for evaluation of weight loss surgery. BMI goal is less than 30. (4) Moderately severe recurrent major depression: Code(s): F33.2 - Major depressive disorder, recurrent severe without psychotic features Plan: Continue duloxetine. (5) Diabetic gastroparesis: Comment: FINDINGS: There is good visualization of activity in the stomach immediately post ingestion. As the study progresses, there is delayed clearance of radiotracer from the stomach. Retention in the stomach at each time interval was: 1 hour 83% (normal 37%-90%) 2 hours 64% (normal 30%-60%) 3 hours 44% 4 hours 27% (normal 0%-10%) NM/NM gastric emptying study IMPRESSION: Delayed gastric emptying as described. Dictated By: Anatoly Montez MD Signed By: <Electronically signed by Anatoly Montez MD in OV> 05/08/22 Code(s): E11.43 - Type 2 diabetes mellitus with diabetic autonomic (poly)neuropathy; K31.84 - Gastroparesis Plan: Continue metoclopramide. Orders: Orders AMB Hemoglobin A1c Today E11.9 - Type 2 diabetes mellitus without complications Lipid Panel Today E78.5 - Hyperlipidemia, unspecified Microalbumin, Random (w Creat) Today E11.9 - Type 2 diabetes mellitus without complications Complete Blood Count Auto Diff Today D64.9 - Anemia, unspecified IRON PROFILE Today D64.9 - Anemia, unspecified Vitamin B12 and Folate Today E53.8 - Deficiency of other specified B group vitamins Vitamin D 25-OH Total Today E55.9 - Vitamin D deficiency, unspecified Thyroid Stimulating Hormone Today E03.9 - Hypothyroidism, unspecified Comprehensive [place]. Panel Fast Today E78.5 - Hyperlipidemia, unspecified MM screening mammo BI Today Z12.31 - Encounter for screening mammogram for malignant neoplasm of breast Referrals Medical Weight Management Referral E66.01 - Morbid (severe) obesity due to excess calories Medications: New cetirizine (Allergy Relief (cetirizine)) 10 mg PO DAILY 30 days PRN 30 tabs 0RF allergy symptoms Discontinued meclizine Discontinued Reason: Patient Completed Course 25 mg PO BID 30 days PRN 45 tabs 0RF dizziness Coding Level of Care Code Est Pt Prev Care 40-64y(58016) Diagnoses Physical exam Z00.00 Type 2 diabetes mellitus without complication, without long-term current use of insulin E11.9 Diabetes mellitus type: type 2 Diabetes mellitus detention insulin use: without intermodal customer service use Diabetes mellitus complication status: without complication Morbid (severe) obesity due to excess calories E66.01 Moderately severe recurrent major depression F33.2 Diabetic gastroparesis E11.43; K31.84 Time Spent (min) 36
[2024-02-17 10:34] VITALS: BP 130/72; BMI 42.2
== END 2024-02-17 11:09 | disposition home or self-care (01) ==
PROVIDERS: PCP Internal Medicine; Visit Provider Internal Medicine
DX: Z00.00 Encounter for general adult medical examination without abnormal findings (principal); E66.01 Morbid (severe) obesity due to excess calories; F33.2 Major depressive disorder, recurrent severe without psychotic features; Z68.41 Body mass index [BMI] 40.0-44.9, adult; E11.43 Type 2 diabetes mellitus with diabetic autonomic (poly)neuropathy; K31.84 Gastroparesis
CPT/HCPCS: 83036; 99396

== ENCOUNTER 2024-02-17 11:27 | Outpatient (REF) | payer OTHER, SELFPAY ==
--- NOTE | ~2024-02-17 | XR_ITS ---
EXAMINATION: XR CHEST CLINICAL INFORMATION: Pain in the left shoulder COMPARISON: Chest xray on 08/27/23 TECHNIQUE: 2 views of the chest were obtained. FINDINGS: No significant abnormality is noted involving the heart, lungs, mediastinum, bony thorax or soft tissues. XR/XR chest 2V IMPRESSION: Unremarkable examination.
--- NOTE | ~2024-02-17 | XR_ITS ---
EXAMINATION: Bilateral hand series CLINICAL INFORMATION: for Exam M25.512 - Pain in left shoulder COMPARISON: None. TECHNIQUE: 3 views of each hand FINDINGS: Right hand: There is minimal marginal osteophytes about the IP joint of the thumb in the second and fourth DIP joints indicative of mild osteoarthritis. First carpometacarpal joint there is joint space narrowing and marginal osteophytes indicative of moderate osteoarthritis. There are no erosions. No abnormal soft tissue calcifications. Left hand: Interphalangeal joints: There is some minimal marginal osteophytes about the second and third DIP joints indicative of minimal osteoarthritis. First carpometacarpal joint there is prominent joint space narrowing and marginal osteophytes indicative of moderate to severe osteoarthritis. No erosions. No abnormal soft tissue calcifications. XR/XR hand LT 2V IMPRESSION: RIGHT HAND: Mild osteoarthritis of the hand. [id number] osteoarthritis of the first carpometacarpal joint LEFT HAND: Osteoarthritis with degenerative changes most prominent and moderate to severe involving the first carpometacarpal joint.
--- NOTE | ~2024-02-17 | XR_ITS ---
EXAMINATION: Bilateral hand series CLINICAL INFORMATION: for Exam M25.512 - Pain in left shoulder COMPARISON: None. TECHNIQUE: 3 views of each hand FINDINGS: Right hand: There is minimal marginal osteophytes about the IP joint of the thumb in the second and fourth DIP joints indicative of mild osteoarthritis. First carpometacarpal joint there is joint space narrowing and marginal osteophytes indicative of moderate osteoarthritis. There are no erosions. No abnormal soft tissue calcifications. Left hand: Interphalangeal joints: There is some minimal marginal osteophytes about the second and third DIP joints indicative of minimal osteoarthritis. First carpometacarpal joint there is prominent joint space narrowing and marginal osteophytes indicative of moderate to severe osteoarthritis. No erosions. No abnormal soft tissue calcifications. XR/XR hand RT 2V IMPRESSION: RIGHT HAND: Mild osteoarthritis of the hand. [id number] osteoarthritis of the first carpometacarpal joint LEFT HAND: Osteoarthritis with degenerative changes most prominent and moderate to severe involving the first carpometacarpal joint.
[2024-02-17 12:26] LABS: MANUAL DIFF FLAG NO
[2024-02-17 12:56] LABS: Basophils Percent Auto 0.4 % (0-2); Eosinophils Absolute Auto 0.4 X10*3/uL (0.0-0.4); Eosinophils Percent Auto 3.4 % (0-4); Hematocrit 36.1 % (37.0-47.0); Hemoglobin 10.9 g/dl (12.0-16.0); Imm Gran Abs Auto 0.06 X10*3/uL (0.00-0.03); Imm Gran Pct Auto 0.5 % (0.0-0.4); Lymphocytes Absolute Auto 2.3 X10*3/uL (1.2-4.9); Lymphocytes Percent Auto 21.4 % (20-40); Mean Corpuscular HGB Conc 30.2 g/dl (31.0-35.0); Mean Corpuscular Hemoglobin 22.4 pg (27.0-33.0); Mean Corpuscular Volume 74.1 fL (80.0-98.0); Mean Platelet Volume 10.9 fL (9.4-12.3); Monocytes Absolute Auto 0.5 X10*3/uL (0.1-1.2); Monocytes Percent Auto 4.4 % (2-11); Neutrophils Absolute Auto 7.6 x10*3/uL (2.0-8.3); Neutrophils Percent Auto 69.9 % (45-73); Platelet Count 271 X10*3/uL (160-400); Red Blood Count 4.87 X10*6/uL (4.20-5.50); Red Cell Distribution Width 19.3 % (11.0-16.0); White Blood Count 10.9 X10*3/uL (4.8-10.8)
[2024-02-17 13:38] LABS: Erythrocyte Sedimentation Rate 31 MM/HR (0-20)
[2024-02-17 13:39] LABS: Rheumatoid Factor < 13.0 IU/mL (<15.0)
[2024-02-17 13:59] LABS: Alanine Aminotransferase 20 U/L (0-31); Albumin Level 3.8 g/dL (3.5-5.0); Alkaline Phosphatase 99 U/L (39-117); Anion Gap 12 (12-20); Aspartate Amino Transferase 15 U/L (5-31); Bilirubin Total 0.3 mg/dL (0.0-1.0); Blood Urea Nitrogen 14 mg/dL (9-16); C Reactive Protein 1.86 mg/dL (< or = 0.50); Calcium 9.2 mg/dL (8.4-10.2); Carbon Dioxide 26 mmol/L (22-29); Chloride 106 mmol/L (96-108); Cholesterol 122 mg/dL (<200); Estimated Glomerular Filt Rate > 60; Glucose Fasting 114 mg/dL (60-99); HDL Cholesterol 47 mg/dL (>40); Iron 24 mcg/dL (30-160); LDL Cholesterol Calculated 60 mg/dL (<100); Percent Iron Saturation 8 % (15-50); Potassium 3.6 mmol/L (3.3-5.1); Sodium 140 mmol/L (135-145); Total Iron Binding Capacity 311 mcg/dL (228-428); Total Protein 7.3 g/dL (6.5-8.0); Triglycerides 76 mg/dL (<150); Unsaturated Iron Binding 287 ug/dL
[2024-02-17 14:00] LABS: Thyroid Stimulating Hormone 1.63 uIU/mL (0.32-4.0)
[2024-02-17 14:03] LABS: Folate 7.1 ng/mL (> or = 4.0); Vitamin B12 655 pg/mL (200-900)
[2024-02-17 14:40] LABS: Creatinine Urine 305.65 mg/dL; Microalbum/Creatinine Ratio Ur 14.3 ug/mg cr (<30)
[2024-02-18 08:49] LABS: HBS Num1 5.33 mIU/mL (0-7.99); HBc Num1 0.15 S/CO (0.00-0.79); HBsAGNum1 0.28 S/CO (0.00-0.99); Hepatitis A Antibody IgM 0.35 Index (0-0.79); Hepatitis B Core Antibody Nonreactive (Nonreactive); Hepatitis B Surface Antigen Negative (Negative); ~HepC Num1 0.17 S/CO (0.00-0.79); ~Hepatitis A Antibody IgM Nonreactive (Nonreactive); ~Hepatitis B Surface Antibody NONREACTIVE (Nonreactive); ~Hepatitis C Antibody Nonreactive (Nonreactive)
[2024-02-18 12:27] LABS: Lyme Abs Screen <0.90 index
[2024-02-18 14:13] LABS: Myeloperoxidase Antibody <1.0 AI; Proteinase 3 PR3 Antibodies <1.0 AI
[2024-02-21 15:08] LABS: Cyclic Citrullinated Peptide <16 UNITS
[2024-02-21 17:09] LABS: Immunoglobulin G Subclass 1 643 mg/dL (382-929); Immunoglobulin G Subclass 2 416 mg/dL (241-700); Immunoglobulin G Subclass 3 76 mg/dL (22-178); Immunoglobulin G Subclass 4 44.4 mg/dL (4-86); Immunoglobulin G Total 1174 mg/dL (600-1640)
[2024-02-23 18:13] LABS: Angiotensin Converting Enzyme 28.8 U/L (9-67)
== END 2024-02-17 11:28 | disposition home or self-care (01) ==
LOC: HO.XRAY 11:27
PROVIDERS: Absent Provider Internal Medicine; PCP Internal Medicine; Visit Provider Internal Medicine Gastroenterology
DX: E03.9 Hypothyroidism, unspecified (principal); D64.9 Anemia, unspecified; E55.9 Vitamin D deficiency, unspecified; E78.5 Hyperlipidemia, unspecified; E11.9 Type 2 diabetes mellitus without complications; E53.8 Deficiency of other specified B group vitamins; M25.512 Pain in left shoulder; M25.511 Pain in right shoulder; M13.0 Polyarthritis, unspecified
CPT/HCPCS: 36415; 71046; 73120; 80053; 80061; 82043; 82164; 82306; 82570; 82607; 82746; 82784; 83540; 84443; 85025; 85652; 86021; 86140; 86200; 86431; 86617; 86618; 86704; 86706; 86709; 86803; 87340

== ENCOUNTER 2024-03-01 09:57 | Outpatient (AMB) | payer OTHER, SELFPAY ==
[2024-03-01 10:01] VITALS: BP 128/76; PULSE 88; O2SAT 96; BMI 42.2
--- NOTE | 2024-03-01 10:01 | A.OFFVIS_ITS ---
Vital Signs 03/01/24 10:01 Height 5 ft 7 in Weight 269 lb 2.951 oz BMI 42.2 BP 128/76 Blood Pressure Location Rt brachial Position Sitting Pulse 88 Pulse Source Pulse Oximeter Pulse Oximetry (%) 96 Oxygen Delivery Method Room Air Intake Visit Reasons: asthma Shipping And Receiving Associate Required: No Allergies Penicillins Allergy (Severe, Verified 03/01/24 10:03) swelling adhesive tape [ADHESIVE TAPE] Allergy (Intermediate, Verified 03/01/24 10:03) RASH amoxicillin [AMOXICILLIN] Allergy (Intermediate, Verified 03/01/24 10:03) RASH,SWELLING ibuprofen [From Motrin] Allergy (Intermediate, Verified 03/01/24 10:03) Hypertension latex Allergy (Intermediate, Verified 03/01/24 10:03) Rash HPI HPI asthma: Details: 59-year-old lady, nonsmoker but with exposure to secondhand smoke, with underlying history of elevated right-sided diaphragm, now followed for asthma, MARY, and dyspnea on exertion. She continues to use Advair 230 and albuterol MDI with reasonable control of her asthma symptoms. Patient states that she has not been using diuretic at this time and she is complain of significant orthopnea, lower extremity edema, and dyspnea on exertion. [facility] Medical History Essential hypertension Left shoulder pain Type 2 diabetes mellitus Hyperparathyroidism Erosive esophagitis Hypertension Acute diarrhea Pre-op examination Cervical radiculopathy Rash of foot Kiera albicans infection Cervicalgia Environmental allergies Hospital discharge follow-up MARY on CPAP Elevated red blood cell count Screening for hyperlipidemia Chronic pain syndrome Lumbar pain Encounter for annual routine gynecological examination Multiple air fluid levels of small intestine determined by X-ray Abdominal bloating Hypothyroid Sleep apnea Abdominal cramping Edema Anxiety with depression Chronic pain (Unknown) Gastroparesis Left knee pain Hypothyroidism Bilateral shoulder pain Hyperlipidemia LDL goal <70 Degeneration, intervertebral disc, cervical Spondylosis of cervical spine at multiple levels without myelopathy Sleep apnea Renal calculi Incontinence Goiter Disc degeneration, lumbar Spondylosis of lumbar region without myelopathy or radiculopathy Arthropathy of facet joint Insomnia LUDY (generalized anxiety disorder) Moderately severe recurrent major depression Diabetes mellitus Chronic pain syndrome Morbid (severe) obesity due to excess calories Fibromyalgia Small bowel motility disorder Chronic idiopathic constipation Asthma Surgical History History of knee replacement procedure of right knee History of hernia surgery Hx of colonoscopy History of esophagogastroduodenoscopy (EGD) History of cholecystectomy Delivery by section History of hysterectomy Family History Father Past heart attack Anxiety Mother MOF (multiple organ failure) Brother HIV (human immunodeficiency virus infection) Sister Ovarian cancer Lupus Bone cancer Uterine cancer Tumor Daughter Guillain-[place] Sister Lupus History of open heart surgery Family/Other Depression FH: mental illness Maternal Aunt Breast cancer Maternal Aunt Tumor Social History Household Members: None Household Members Other:: Housing: Apartment Are you a primary youth care specialist to a significant other at home: No Do you presently have visiting nurse or other home services: Yes Alcohol intake: never Patient Tobacco Use Status: Never used Tobacco e-Cigarette/Vaping Use: Never Used Second Hand Smoke Exposure: Yes Advance Directives Date on File: 12/08/21 service: No Current occupational status: unemployed and disabled Cognitive needs: Yes Hearing needs: No Vision needs: No Review of Systems Const Denies daytime sleepiness, Denies excessive sweating, Denies fatigue, Denies fever(s), Denies lethargy, Denies malaise, Denies night sweats, Denies snoring and Denies weight loss Eyes Denies blurry vision and Denies itchy eyes ENT Denies nasal congestion, Denies post nasal drip, Denies sinus pain, Denies sinus pressure and Denies other ( Thrush) Card Denies chest pain, Reports pedal edema, Denies dyspnea, Reports orthopnea and Reports paroxysmal nocturnal dyspnea Resp Denies cough, Denies hemoptysis, Denies excessive phlegm production, Denies d yspnea, Denies snoring and Denies wheezing GI Denies abdominal pain and Denies heartburn Musc Denies myalgias, Denies arthralgias and Denies joint swelling Skin/Breast Denies rash Neuro Denies memory loss and Denies seizure-like activity Psych Denies abnormal sleep pattern, Denies anxiety and Denies memory loss Endo Denies excessive sweating, Denies fatigue and Denies heat intolerance Dalton/Lymph Denies easy bruising Aller/Immun Denies itchy eyes, Denies seasonal rhinorrhea and Denies wheezing Physical Exam Vital Signs: Last Vital Signs Pulse 88 03/01/24 10:01 BP 128/76 03/01/24 10:01 Pulse Ox 96 03/01/24 10:01 Oxygen Delivery Method Room Air 03/01/24 10:01 BMI result Body Mass Index 42.2 Const General: no acute distress and alert Nutritional Appearance: obese Orientation/consciousness: Other orientation findings ( oriented) HEENT Head: Yes atraumatic Eyes General: appearance normal, both eyes and all related structures Sclerae: sclerae normal EOM: EOMs intact bilaterally Neck Neck: Yes supple Lymphatic: no lymphadenopathy noted Resp Effort & Inspection: normal respiratory effort and no use of accessory muscles Auscultation: clear to auscultation bilaterally Cardio Rate: regular rate Rhythm: regular rhythm Heart sounds: no gallops, no murmurs and no rubs Skin General skin exam: other ( warm) Extrem General: No clubbing, No cyanosis and Yes edema (1+ bilateral) Assessment & Plan Assessment & Plan (1) MARY (obstructive sleep apnea): Code(s): G47.33 - Obstructive sleep apnea (adult) (pediatric) Category: Medical Plan: Well controlled on current CPAP therapy. Continue CPAP therapy. (2) Asthma: Code(s): J45.909 - Unspecified asthma, uncomplicated Category: Medical Qualifiers: Asthma severity: moderate Asthma persistence: persistent Asthma compli cation type: uncomplicated Qualified Code(s): J45.40 - Moderate persistent asthma, uncomplicated Plan: Baseline well controlled on Breo and albuterol MDI. Continue current regimen. (3) Orthopnea: Code(s): R06.01 - Orthopnea Category: Medical Plan: Now with worsening control of diuretic. Will start on lower-dose of bumetanide at 1 mg twice a day. Medications: Changed From bumetanide 2 mg PO BID 180 tabs 2RF To bumetanide 1 mg PO BID 30 tabs 6RF Coding Level of Care Code Est Pt Level 4 (25648) Diagnoses MARY (obstructive sleep apnea) G47.33 Moderate persistent asthma without complication J45.40 Asthma severity: moderate Asthma persistence: persistent Asthma complication type: uncomplicated Orthopnea R06.01
== END 2024-03-01 10:28 | disposition home or self-care (01) ==
PROVIDERS: PCP Internal Medicine; Visit Provider Internal Medicine Pulmonary Disease
DX: G47.33 Obstructive sleep apnea (adult) (pediatric) (principal); J45.40 Moderate persistent asthma, uncomplicated; R06.01 Orthopnea
CPT/HCPCS: 99214

== ENCOUNTER → 2024-03-01 09:57 | Outpatient (BNVA) | payer OTHER, SELFPAY | PROVIDERS: PCP Internal Medicine; Visit Provider Internal Medicine Pulmonary Disease | DX: J45.40 Moderate persistent asthma, uncomplicated (principal); G47.33 Obstructive sleep apnea (adult) (pediatric); R06.01 Orthopnea | CPT/HCPCS: 99212 ==

== ENCOUNTER 2024-03-20 13:08 | Outpatient (AMB) | payer OTHER, SELFPAY ==
--- NOTE | 2024-03-20 13:35 | A.OFFVIS_ITS ---
Vital Signs 03/20/24 13:36 Height 5 ft 7 in Weight 256 lb BMI 40.1 Handedness Right Intake Visit Reasons: [employer] PRECINCT-Left shoulder pain Intake Note: Bonnie is a 59 year old right hand dominant female who presents today as a new patient for complaints of Left shoulder pain. Pain management sent a referral for her Left shoulder. Patient reports she has been having on going pains in her left shoulder for about three years but is noticing it getting worse. She is unable to lift her arm above head or lift without discomfort, ROM is limited. She explains a sharp pain that starts in the lateral aspect of her shoulder and radiates to the anterior aspect. She has tried and failed Tylenol and gabapentin stating it offered her no releif. She denies previous injuries, injections in shoulder and physical therapy. hx of DM Allergies Penicillins Allergy (Severe, Verified 03/20/24 14:20) swelling adhesive tape [ADHESIVE TAPE] Allergy (Intermediate, Verified 03/20/24 14:20) RASH amoxicillin [AMOXICILLIN] Allergy (Intermediate, Verified 03/20/24 14:20) RASH,SWELLING ibuprofen [From Motrin] Allergy (Intermediate, Verified 03/20/24 14:20) Hypertension latex Allergy (Intermediate, Verified 03/20/24 14:20) Rash HPI HPI [employer] PRECINCT-Left shoulder pain: Details: Bonnie is a 59 year old right hand dominant female who presents today as a new patient for complaints of Left shoulder pain. Pain management sent a referral for her Left shoulder. Patient reports she has been having on going pains in her left shoulder for about three years but is noticing it getting worse. She is unable to lift her arm above head or lift without discomfort, ROM is limited. She explains a sharp pain that starts in the lateral aspect of her shoulder and radiates to the anterior aspect. She has tried and failed Tylenol and gabapentin stating it offered her no releif. She denies previous injuries, injections in shoulder and physical therapy. Hx of DM PFSH Medical History Essential hypertension Left shoulder pain Type 2 diabetes mellitus Hyperparathyroidism Erosive esophagitis Hypertension Acute diarrhea Pre-op examination Cervical radiculopathy Rash of foot Kiera albicans infection Cervicalgia Environmental allergies Hospital discharge follow-up MARY on CPAP Elevated red blood cell count Screening for hyperlipidemia Chronic pain syndrome Lumbar pain Encounter for annual routine gynecological examination Multiple air fluid levels of small intestine determined by X-ray Abdominal bloating Hypothyroid Sleep apnea Abdominal cramping Edema Anxiety with depression Chronic pain (Unknown) Gastroparesis Left knee pain Hypothyroidism Bilateral shoulder pain Hyperlipidemia LDL goal <70 Degeneration, intervertebral disc, cervical Spondylosis of cervical spine at multiple levels without myelopathy Sleep apnea Renal calculi Incontinence Goiter Disc degeneration, lumbar Spondylosis of lumbar region without myelopathy or radiculopathy Arthropathy of facet joint Insomnia LUDY (generalized anxiety disorder) Moderately severe recurrent major depression Diabetes mellitus Chronic pain syndrome Morbid (severe) obesity due to excess calories Fibromyalgia Small bowel motility disorder Chronic idiopathic constipation Asthma Surgical History History of knee replacement procedure of right knee History of hernia surgery Hx of colonoscopy History of esophagogastroduodenoscopy (EGD) History of cholecystectomy Delivery by section History of hysterectomy Family History Father Past heart attack Anxiety Mother MOF (multiple organ failure) Brother HIV (human immunodeficiency virus infection) Sister Ovarian cancer Lupus Bone cancer Uterine cancer Tumor Daughter Guillain-[place] Sister Lupus History of open heart surgery Family/Other Depression FH: mental illness Maternal Aunt Breast cancer Maternal Aunt Tumor Social History Household Members: None Household Members Other:: Housing: Apartment Are you a primary health and social care teacher to a significant other at home: No Do you presently have visiting nurse or other home services: Yes Alcohol intake: never Patient Tobacco Use Status: Never used Tobacco e-Cigarette/Vaping Use: Never Used Second Hand Smoke Exposure: Yes Advance Directives Date on File: 12/08/21 service: No Current occupational status: unemployed and disabled Cognitive needs: Yes Hearing needs: No Vision needs: No Physical Exam Vital Signs: BMI result Body Mass Index 40.1 Extrem Other: 30/70/100/S1 + H/N EC c/b pain Results Reviewed Results Reviewed: I personally reviewed relevant radiographs. Nl left shoulder exam Assessment & Plan Assessment & Plan (1) Subacromial bursitis of left shoulder joint: Code(s): M75.52 - Bursitis of left shoulder Category: Medical Plan: Insidious left shoulder pain. It is bothering her at night and with overhead activity. We discussed injections, NSAIDs and PT. PT was ordered. Will consider injections if PT not helpful. NSAIDs cause htn. Orders: Orders PT Evaluation and Treatment 03/20/24 M25.512 - Pain in left shoulder, M75.52 - Bursitis of left shoulder Coding Level of Care Code New Pt Level 3 (42788) Diagnoses Subacromial bursitis of left shoulder joint M75.52
[2024-03-20 13:36] VITALS: BMI 40.1
== END 2024-03-20 15:02 | disposition home or self-care (01) ==
PROVIDERS: PCP Internal Medicine; Visit Provider Orthopaedic Surgery
DX: M75.52 Bursitis of left shoulder (principal)
CPT/HCPCS: 99203

== ENCOUNTER → 2024-03-20 13:08 | Outpatient (BNVA) | payer OTHER, SELFPAY | PROVIDERS: PCP Internal Medicine; Visit Provider Orthopaedic Surgery | DX: M75.52 Bursitis of left shoulder (principal) | CPT/HCPCS: 99202 ==

== ENCOUNTER 2024-03-21 15:17 | Emergency (ER) | payer OTHER, SELFPAY ==
--- NOTE | ~2024-03-21 | CT_ITS ---
EXAMINATION: CT ABDOMEN AND PELVIS WITHOUT CONTRAST CLINICAL INFORMATION: Abdominal pain. Diarrhea. COMPARISON: CT abdomen pelvis September 22, 2023 TECHNIQUE: Multidetector volumetric imaging was performed from the superior aspect of the liver through the pubic symphysis. Sagittal and coronal reformatted images were obtained on the technologist's workstation. This CT examination was performed using dose optimization techniques as appropriate, variously including the following: *Automated exposure control *Adjustment of mA and/or kV according to patient size (this includes techniques or standardized protocols for targeted exams where dose is matched to indication/reason for exam; i.e. extremities or head) *Use of iterative reconstruction technique DLP: 917 mGy-cm FINDINGS: LUNG BASES: Asymmetric elevation of the right diaphragm above the left. LIVER, GALLBLADDER, AND BILIARY TREE: Portions of the dome of the right lobe of liver not included in study due to the elevation of the diaphragm. No focal liver lesion. No intrahepatic bile duct dilatation. Status post cholecystectomy. PANCREAS: Unremarkable. SPLEEN: Unremarkable. ADRENAL GLANDS: Unremarkable. KIDNEYS AND URETERS: The kidneys are normal in size, shape, and attenuation. No hydronephrosis, hydroureter, or calculi seen. No perinephric stranding. BLADDER: Unremarkable. GASTROINTESTINAL TRACT: The small and large bowel are unremarkable. The appendix is unremarkable. ABDOMINAL WALL: No significant hernia is appreciated. LYMPH NODES: Normal. VASCULAR: Unremarkable. PELVIC VISCERA: Unremarkable. OSSEOUS STRUCTURES: No acute osteoporotic. Degenerative spondylosis of the lower thoracic and lumbar spine. CT/CT abdomen pelvis wo IV con IMPRESSION: No acute abnormality CT scan abdomen pelvis. Fleischner guidelines were followed.
[2024-03-21 15:56] VITALS: BP 176/80; PULSE 69; RESP 18; TEMP 37.1; O2SAT 96; BMI 41.7
--- NOTE | 2024-03-21 16:06 | ED_ITS ---
HPI - General Adult General Chief complaint: Abdominal Pain Stated complaint: NVD x3 days Time Seen by Provider: 03/21/24 19:32 Source: patient Mode of arrival: ambulatory History of Present Illness ED Provider: Dr Dang HPI narrative: 49-year-old female who is status post cholecystectomy presents with right upper quadrant, sharp pain that she states has been associated with bloating, she is currently followed by Dr. Ballard, she also reports 3 days of diarrhea but endorses that she has had this previously and has also been worked up. Related Data Home Medications ?Medication ?Instructions ?Recorded ?Confirmed trazodone 150 mg tablet 150 mg PO BEDTIME PRN insomnia 08/25/23 02/17/24 lorazepam 1 mg tablet 1 mg PO DAILY PRN ANXIETY 09/11/23 02/17/24 duloxetine 60 mg capsule,delayed 60 mg PO QAM 09/22/23 02/17/24 release sennosides 8.6 mg tablet (senna) 17.2 mg PO BEDTIME PRN constipation 09/22/23 02/17/24 zolpidem 5 mg tablet 5 mg PO BEDTIME PRN 02/14/24 02/17/24 CPAP (CPAP Machine/Device) 03/01/24 hydroxyzine HCl 25 mg tablet 25 mg PO BEDTIME 03/01/24 nebulizers 03/01/24 pantoprazole 40 mg tablet,delayed 40 mg PO DAILY 03/01/24 release clonidine HCl 0.1 mg tablet 1 mg PO TID 03/20/24 Previous Rx's ?Medication ?Instructions ?Recorded metoprolol succinate 50 mg 50 mg PO DAILY 90 days #90 tabs 09/29/23 tablet,extended release 24 hr metoclopramide HCl 10 mg tablet 10 mg PO QIDACHS #120 tabs 10/05/23 (Reglan) dicyclomine 10 mg capsule 20 mg (2 x 10 mg) PO QID PRN 10/14/23 abdominal pain 30 days #120 caps blood sugar diagnostic (FreeStyle #100 ea 11/07/23 Test strips) albuterol sulfate 90 mcg/actuation 1 puff PO Q4H PRN for wheezing 30 12/04/23 aerosol inhaler (Ventolin HFA) days #54 ea acetaminophen 650 mg 650 mg PO Q8H PRN arthritis 30 01/31/24 tablet,extended release days #90 tabs dulaglutide 0.75 mg/0.5 mL 0.75 mg (0.5 mL) subcut QWEEK #2 mL 01/31/24 subcutaneous pen injector (Trulicity) atorvastatin 10 mg tablet 10 mg PO BEDTIME #90 tabs 02/12/24 levothyroxine 112 mcg tablet 112 mcg PO DAILY@0600 #90 tabs 02/12/24 cholecalciferol (vitamin D3) 50 50 mcg PO DAILY 90 days #90 caps 02/17/24 mcg (2,000 unit) capsule ferrous sulfate 325 mg (65 mg 325 mg PO DAILY 90 days #90 tabs 02/17/24 iron) tablet blood pressure monitor #1 ea 02/21/24 insulin glargine 100 unit/mL 15 unit (0.15 mL) subcut BEDTIME 02/21/24 subcutaneous solution (Lantus 90 days #13.5 mL U-100 Insulin) insulin lispro 100 unit/mL 5 unit (0.05 mL) subcut TID 30 02/21/24 subcutaneous solution days #4.5 mL bumetanide 1 mg tablet 1 mg PO BID #30 tabs 03/01/24 fluticasone furoate 200 1 inh inhalation DAILY 30 days #1 03/01/24 mcg-vilanterol 25 mcg/dose ea inhalation powder (Breo Ellipta) gabapentin 800 mg tablet 800 mg PO TID 90 days #270 tabs 03/01/24 meclizine 25 mg tablet 25 mg PO DAILY PRN dizziness 90 03/15/24 days #90 tabs Allergies Allergy/AdvReac Type Severity Reaction Status Date / Time Penicillins Allergy Severe swelling Verified 03/21/24 15:59 adhesive tape [ADHESIVE TAPE] Allergy Intermediate RASH Verified 03/21/24 15:59 amoxicillin [AMOXICILLIN] Allergy Intermediate RASH,SWELLI Verified 03/21/24 15:59 NG ibuprofen [From Motrin] Allergy Intermediate Hypertensio Verified 03/21/24 15:59 n latex Allergy Intermediate Rash Verified 03/21/24 15:59 Review of Systems 2 Review of Systems: Pertinent positives and negatives as stated in [facility] Past Medical History Source: nursing notes reviewed Medical History Essential hypertension Left shoulder pain Type 2 diabetes mellitus Hyperparathyroidism Erosive esophagitis Hypertension Acute diarrhea Pre-op examination Cervical radiculopathy Rash of foot Kiera albicans infection Cervicalgia Environmental allergies Hospital discharge follow-up MARY on CPAP Elevated red blood cell count Screening for hyperlipidemia Chronic pain syndrome Lumbar pain Encounter for annual routine gynecological examination Multiple air fluid levels of small intestine determined by X-ray Abdominal bloating Hypothyroid Sleep apnea Abdominal cramping Edema Anxiety with depression Chronic pain (Unknown) Gastroparesis Left knee pain Hypothyroidism Bilateral shoulder pain Hyperlipidemia LDL goal <70 Degeneration, intervertebral disc, cervical Spondylosis of cervical spine at multiple levels without myelopathy Sleep apnea Renal calculi Incontinence Goiter Disc degeneration, lumbar Spondylosis of lumbar region without myelopathy or radiculopathy Arthropathy of facet joint Insomnia LUDY (generalized anxiety disorder) Moderately severe recurrent major depression Diabetes mellitus Chronic pain syndrome Morbid (severe) obesity due to excess calories Fibromyalgia Small bowel motility disorder Chronic idiopathic constipation Asthma Surgical History History of knee replacement procedure of right knee History of hernia surgery Hx of colonoscopy History of esophagogastroduodenoscopy (EGD) History of cholecystectomy Delivery by section History of hysterectomy Family History Family History Father Past heart attack Anxiety Mother MOF (multiple organ failure) Brother HIV (human immunodeficiency virus infection) Sister Ovarian cancer Lupus Bone cancer Uterine cancer Tumor Daughter Guillain-[place] Sister Lupus History of open heart surgery Family/Other Depression FH: mental illness Maternal Aunt Breast cancer Maternal Aunt Tumor Social History Social History Household Members: None Household Members Other:: Housing: Apartment Are you a primary director critical care to a significant other at home: No Do you presently have visiting nurse or other home services: Yes Alcohol intake: never Patient Tobacco Use Status: Never used Tobacco Smoked in Last 30 Days: No e-Cigarette/Vaping Use: Never Used Second Hand Smoke Exposure: Yes Use of substances other than those prescribed or required for medical reasons: No Advance Directives: Yes Advance Directives on File: Yes Advance Directives Date on File: 12/08/21 Patient : No service: No Current occupational status: unemployed and disabled Cognitive needs: Yes Hearing needs: No Vision needs: No Physical Exam ED Vital Signs: Vital Signs - 24 hr 03/21/24 15:56 03/21/24 19:41 03/21/24 21:27 Temperature 98.7 F 98.4 F Pulse Rate 69 69 68 Respiratory Rate 18 18 15 Blood Pressure 176/80 H 172/66 H 134/55 L Pulse Oximetry 96 95 96 Oxygen Delivery Method Room Air Room Air 03/21/24 23:16 03/22/24 00:33 Temperature 98.7 F 98.7 F Pulse Rate 66 66 Respiratory Rate 16 16 Blood Pressure 127/41 L 127/41 L Pulse Oximetry 96 96 Oxygen Delivery Method Room Air Room Air BMI result Body Mass Index 41.7 VITAL SIGNS: Reviewed. GENERAL: Elevated BMI, Well developed, well nourished, in no acute distress. HEAD: Normocephalic/atraumatic EYES: PERRLA, EOMI EARS: Ext canals without abnormality NOSE: Nares patent bilateral OROPHARYNX: no oral lesions noted, posterior pharynx clear NECK: Supple, no adenopathy LUNGS: Normal breath sounds. No adventitious sounds or accessory muscle use. SpO2<96> CARDIOVASCULAR: Regular rate and rhythm without noted murmurs ABDOMEN: Soft, non-tender, non-distended with bowel sounds. MUSCULOSKELETAL: No tenderness, deformities, or effusions noted on gross inspection. EXTREMITIES: No cyanosis, clubbing or edema. SKIN: Inspection of the skin reveals no rashes NEUROLOGIC: Alert and oriented x 4. Strength and sensation to light touch were grossly intact x 4. Course Course Course Narrative: RME: done by KAYLA Melgar. 59-year-old female presents to ED for right upper quadrant abdominal pain diarrhea and vomiting with chills and headache for the past 3 days. Patient denies any urinary symptoms. Patient denies any blood in stool. Patient states history of cholecystectomy. Positive for right upper quadrant tenderness. Labs are ordered. Medications Administered Discontinued Medications Generic Name Dose Route Start Last Admin Trade Name Freq PRN Reason Stop Dose Admin Acetaminophen 975 mg 03/21/24 20:43 03/21/24 20:52 Acetaminophen 325 Mg Tablet PO 03/21/24 20:44 975 mg ONCE ONE Administration Sodium Chloride 1,000 mls @ 999 mls/hr 03/21/24 20:45 03/21/24 22:05 Ns IV 03/21/24 21:45 Infused .Q1H1M RADHA Infusion Ketorolac Tromethamine 15 mg 03/21/24 20:43 03/21/24 20:52 Ketorolac Tromethamine 30 Mg/Ml Vial IVPUSH 03/21/24 20:44 15 mg ONCE ONE Administration Metoclopramide HCl 10 mg 03/21/24 22:54 03/21/24 23:05 Metoclopramide Hcl 10 Mg/2 Ml Vial IVPUSH 03/21/24 22:55 10 mg ONCE ONE Administration Ondansetron HCl 4 mg 03/21/24 22:59 03/21/24 23:05 Ondansetron Hcl 4 Mg/2 Ml Vial IVPUSH 03/21/24 23:00 4 mg ONCE ONE Administration Medical Decision Making Medical Decision Making MDM Narrative: 59-year-old female with history and clinical presentation, DDX: Viral illness, gastroparesis, she is otherwise afebrile and do not suspect intra-abdominal infection, she is status post cholecystectomy and do not suspect that the right upper quadrant pain is associated with hepatobiliary etiology and instead think that this is likely associated with underlying gastroparesis. I reviewed all investigations and hematologic indices demonstrates a noninfectious leukocytosis without anemia and there is no evidence of thrombocytopenia. Chemistry indices are negative for RE and electrolyte or liver enzyme derangements. Patient is not providing us with a urine sample despite having given her 1 L of IV fluids, bladder scan demonstrates 15 cc of urine. Also as patient described diarrhea requested stool sample, however she is unable to produce this as well. CT scan negative for any acute intra- abdominal findings such as renal colic, most notably there is no demonstrated gastric distention to suggest acute gastroparesis. Viral testing negative for influenza/RSV/COVID-19. Patient will receive Reglan and also received Toradol as well as Tylenol for her discomfort, the latter medication she states did not help her at all. Patient re-evaluated after receiving Reglan and Zofran, she reports feeling much better and urinalysis negative for UTI or hematuria. My interpretation is patient may have experienced a bout of gastroparesis that has improved. She was informed of all results and instructed to follow-up with Gastroenterology. Differential Diagnosis Differential Diagnoses: The differential diagnosis associated with the presentation includes Please see the discussion above Admission/Observation Consideration of admission/observation: Escalation of care including admission/observation considered Please see the discussion above Lab Data [facility] Lab Attestation statement: I reviewed the patient's lab results. Please see the discussion above 03/21/24 16:20 03/21/24 16:20 Labs: Lab Results 03/21/24 03/21/24 Range/Units 16:20 23:15 WBC 16.2 H (4.8-10.8) X10*3/uL RBC 5.18 (4.20-5.50) X10*6/uL Hgb 12.1 (12.0-16.0) g/dl Hct 38.7 (37.0-47.0) % MCV 74.7 L (80.0-98.0) fL MCH 23.4 L (27.0-33.0) pg MCHC 31.3 (31.0-35.0) g/dl RDW 19.5 H (11.0-16.0) % Plt Count 207 (160-400) X10*3/uL MPV 10.8 (9.4-12.3) fL Immature Gran % (Auto) 0.6 H (0.0-0.4) % Neut % (Auto) 72.0 (45-73) % Lymph % (Auto) 18.2 L (20-40) % Anson % (Auto) 5.6 (2-11) % Eos % (Auto) 3.2 (0-4) % Baso % (Auto) 0.4 (0-2) % Lymph # (Auto) 2.9 (1.2-4.9) X10*3/uL Anson # (Auto) 0.9 (0.1-1.2) X10*3/uL Eos # (Auto) 0.5 H (0.0-0.4) X10*3/uL Baso # (Auto) 0.1 (0.0-0.2) X10*3/uL Abs Immat Gran (auto) 0.10 H (0.00-0.03) X10*3/uL Absolute Neuts (auto) 11.7 H (2.0-8.3) x10*3/uL Absolute Nucleated RBC 0.000 (0.0-0.012) X10*3/uL Nucleated RBC % (auto) 0.0 (0.0-0.2) /100WBC Smear Tech's Comments VERIFIED Sodium 143 (135-145) mmol/L Potassium 4.2 (3.3-5.1) mmol/L Chloride 110 H (96-108) mmol/L Carbon Dioxide 25 (22-29) mmol/L Anion Gap 12 (12-20) BUN 17 H (9-16) mg/dL Creatinine 0.82 (0.5-1.4) mg/dL Estim Creat Clear Calc 100.7 Estimated GFR > 60 Random Glucose 99 (60-115) mg/dL Calcium 9.5 (8.4-10.2) mg/dL Total Bilirubin 0.6 (0.0-1.0) mg/dL AST 22 (5-31) U/L ALT 28 (0-31) U/L Alkaline Phosphatase 107 (39-117) U/L Total Protein 7.5 (6.5-8.0) g/dL Albumin 3.9 (3.5-5.0) g/dL Lipase 34 (8-78) U/L Beta HCG, Quant 4 mIU/mL Urine Color Dark Yellow Urine Appearance Clear Urine pH 5.0 (5.0-9.0) Ur Specific [place] >= 1.030 H (1.005-1.025) Urine Protein Negative (Neg-Trace) mg/dL Urine Glucose (UA) Negative (Negative) mg/dL Urine Ketones 15 (Negative) mg/dL Urine Blood Negative (Negative) Urine Nitrite Negative (Negative) Ur Leukocyte Esterase Negative (Negative) Urine Test NEGATIVE (NEGATIVE) Influenza Type A (PCR) NEGATIVE (Negative) Influenza Type B (PCR) NEGATIVE (Negative) RSV RNA Qual (PCR) NEGATIVE (Negative) SARS-CoV-2 RNA (RT-PCR) NEGATIVE (Negative) Radiology Impression Discussion of test interpretation with radiology: I have reviewed the radiologist's reading. Radiologist Impression: Please see the discussion above External Record Review External record reviewed: Office record, Outpatient record, Prior outpatient labs and Prior outpatient radiology Chronic Conditions Patient?s care impacted by: Diabetes and Hypertension Critical Care Time Critical Care Time Critical Care Time: Yes Total Critical Care Time: 45 Attestation: I personally attest to this time spent taking care of the patient. Discharge Plan Discharge Clinical Impression: Diabetic gastroparesis, Nausea & vomiting Patient Disposition: Home, Self-Care Instructions: Diabetic Gastroparesis (DC), Acute Nausea and Vomiting (ED) Additional Instructions: You should continue to take all prescribed medications. Follow-up with your primary care doctor as well as Gastroenterology. Return to the ER for any worsening symptoms. Prescriptions: No Action metoprolol succinate 50 mg tablet extended release 24 hr 50 mg PO DAILY 90 Days Qty: 90 1RF metoclopramide HCl [Reglan] 10 mg tablet 10 mg PO QIDACHS Qty: 120 1RF (DME) FreeStyle Test Strip See Rx Instructions .Route Qty: 100 3RF Rx Instructions: Use 1 test strip once a day albuterol sulfate [Ventolin HFA] 90 mcg/actuation HFA aerosol inhaler 1 puff PO Q4H PRN (Reason: for wheezing) 30 Days Qty: 54 1RF Trulicity 0.75 mg/0.5 mL pen injector 0.75 mg subcut QWEEK Qty: 2 5RF acetaminophen 650 mg tablet extended release 650 mg PO Q8H PRN (Reason: arthritis) 30 Days Qty: 90 1RF levothyroxine 112 mcg tablet 112 mcg PO DAILY@0600 Qty: 90 1RF atorvastatin 10 mg tablet 10 mg PO BEDTIME Qty: 90 1RF ferrous sulfate 325 mg (65 mg iron) tablet 325 mg PO DAILY 90 Days Qty: 90 1RF cholecalciferol (vitamin D3) 50 mcg (2,000 unit) capsule 50 mcg PO DAILY 90 Days Qty: 90 1RF insulin glargine [Lantus U-100 Insulin] 100 unit/mL solution 15 unit subcut BEDTIME 90 Days Qty: 13.5 1RF insulin lispro 100 unit/mL solution 5 unit subcut TID 30 Days Qty: 4.5 3RF (DME) blood pressure monitor Kit See Rx Instructions .Route Qty: 1 0RF Rx Instructions: Use as needed gabapentin 800 mg tablet 800 mg PO TID 90 Days Qty: 270 0RF meclizine 25 mg tablet 25 mg PO DAILY PRN (Reason: dizziness) 90 Days Qty: 90 0RF trazodone 150 mg tablet 150 mg PO BEDTIME PRN (Reason: insomnia) lorazepam 1 mg tablet 1 mg PO DAILY PRN (Reason: ANXIETY) sennosides [senna] 8.6 mg tablet 17.2 mg PO BEDTIME PRN (Reason: constipation) duloxetine 60 mg capsule,delayed release(DR/EC) 60 mg PO QAM dicyclomine 10 mg capsule 20 mg PO QID PRN (Reason: abdominal pain) 30 Days Qty: 120 0RF clonidine HCl 0.1 mg tablet 1 mg PO TID zolpidem 5 mg tablet 5 mg PO BEDTIME PRN pantoprazole 40 mg tablet,delayed release (DR/EC) 40 mg PO DAILY hydroxyzine HCl 25 mg tablet 25 mg PO BEDTIME (DME) nebulizers Kit See Rx Instructions .ROUTE Rx Instructions: As directed (DME) CPAP Machine/Device Device See Rx Instructions .ROUTE Rx Instructions: As directed bumetanide 1 mg tablet 1 mg PO BID Qty: 30 6RF fluticasone furoate-vilanterol [Breo Ellipta] 200-25 mcg/dose blister with device 1 inh inhalation DAILY 30 Days Qty: 1 6RF Referrals: Jenny Mendosa MD [Primary Care Provider] - Interventions: ED Discharge Assessment Last Done: 03/22/24 00:33 Discharge Date/Time: 03/22/24 00:34 Print Language: Tristanian
[2024-03-21 16:31] LABS: Basophils Absolute Auto 0.1 X10*3/uL (0.0-0.2); Basophils Percent Auto 0.4 % (0-2); Eosinophils Absolute Auto 0.5 X10*3/uL (0.0-0.4); Eosinophils Percent Auto 3.2 % (0-4); Hematocrit 38.7 % (37.0-47.0); Hemoglobin 12.1 g/dl (12.0-16.0); Imm Gran Pct Auto 0.6 % (0.0-0.4); Lymphocytes Absolute Auto 2.9 X10*3/uL (1.2-4.9); Lymphocytes Percent Auto 18.2 % (20-40); MANUAL DIFF FLAG SCAN; Mean Corpuscular HGB Conc 31.3 g/dl (31.0-35.0); Mean Corpuscular Hemoglobin 23.4 pg (27.0-33.0); Mean Corpuscular Volume 74.7 fL (80.0-98.0); Mean Platelet Volume 10.8 fL (9.4-12.3); Monocytes Absolute Auto 0.9 X10*3/uL (0.1-1.2); Monocytes Percent Auto 5.6 % (2-11); Neutrophils Absolute Auto 11.7 x10*3/uL (2.0-8.3); PLT CLUMP 1; Red Blood Count 5.18 X10*6/uL (4.20-5.50); Red Cell Distribution Width 19.5 % (11.0-16.0); SCAN SMEAR FLAG 1
[2024-03-21 17:07] LABS: Influenza A PCR NEGATIVE (Negative); Influenza B PCR NEGATIVE (Negative); Resp Syncy Virus RNA Qual PCR NEGATIVE (Negative); SARS COV2 PCR INHOUSE NEGATIVE (Negative)
[2024-03-21 17:09] LABS: HCG Quantitative 4 mIU/mL
[2024-03-21 17:21] LABS: Alanine Aminotransferase 28 U/L (0-31); Albumin Level 3.9 g/dL (3.5-5.0); Alkaline Phosphatase 107 U/L (39-117); Anion Gap 12 (12-20); Aspartate Amino Transferase 22 U/L (5-31); Bilirubin Total 0.6 mg/dL (0.0-1.0); Blood Urea Nitrogen 17 mg/dL (9-16); Calcium 9.5 mg/dL (8.4-10.2); Carbon Dioxide 25 mmol/L (22-29); Chloride 110 mmol/L (96-108); Creatinine Clr Calc Pharmacy 100.7; Estimated Glomerular Filt Rate > 60; Glucose Random 99 mg/dL (60-115); Lipase 34 U/L (8-78); Potassium 4.2 mmol/L (3.3-5.1); Sodium 143 mmol/L (135-145); Total Protein 7.5 g/dL (6.5-8.0)
[2024-03-21 17:58] LABS: Platelet Count 207 X10*3/uL (160-400); SLIDE REVIEW VERIFIED; White Blood Count 16.2 X10*3/uL (4.8-10.8)
[2024-03-21 19:41] VITALS: BP 172/66; PULSE 69; RESP 18; O2SAT 95
[2024-03-21] MEDS: Acetaminophen 325 MG TABLET 975 MG PO (20:52)
[2024-03-21] MEDS: Ketorolac Tromethamine 30 MG/ML VIAL 15 MG IVPUSH (20:52)
[2024-03-21] MEDS: 0.9 % Sodium Chloride 1,000 ML 999 ML IV (20:55)
[2024-03-21 21:27] VITALS: BP 134/55; PULSE 68; RESP 15; TEMP 36.9; O2SAT 96
[2024-03-21] MEDS: Metoclopramide HCl 10 MG/2 ML VIAL IVPUSH (23:05)
[2024-03-21] MEDS: ondansetron HCL 4 MG/2 ML VIAL IVPUSH (23:05)
[2024-03-21 23:16] VITALS: BP 127/41; PULSE 66; RESP 16; TEMP 37.1; O2SAT 96
[2024-03-21 23:27] LABS: Appearance Urine Clear; Color Urine Dark Yellow; Glucose Urine UA Negative (Negative); Leukocyte Esterase Urine Negative (Negative); Nitrite Urine Negative (Negative); Specific Gravity - Urine >= 1.030 (1.005-1.025); Urine Blood Negative (Negative); Urine Ketones 15 mg/dL (Negative); Urine Protein Negative (Neg-Trace)
[2024-03-21 23:31] LABS: UPreg QC Valid YES; Urine Pregnancy NEGATIVE (NEGATIVE)
[2024-03-22 00:33] VITALS: BP 127/41; PULSE 66; RESP 16; TEMP 37.1; O2SAT 96
== END 2024-03-22 00:34 | disposition home or self-care (01) ==
PROVIDERS: Physician Assistant; Emergency Provider Student in an Organized Health Care Education/Training Program; PCP Internal Medicine
DX: E11.43 Type 2 diabetes mellitus with diabetic autonomic (poly)neuropathy (principal); K31.84 Gastroparesis; R11.2 Nausea with vomiting, unspecified; R10.11 Right upper quadrant pain; Z03.818 Encounter for observation for suspected exposure to other biological agents ruled out; E78.5 Hyperlipidemia, unspecified; J45.909 Unspecified asthma, uncomplicated; Z79.85 Long-term (current) use of injectable non-insulin antidiabetic drugs; Z79.02 Long term (current) use of antithrombotics/antiplatelets; Z79.4 Long term (current) use of insulin; Z79.899 Other long term (current) drug therapy
CPT/HCPCS: 0241U; 51798; 74176; 80053; 81003; 81025; 83690; 84702; 85025; 96361; 96374; 96375; 99284; 99285; J1885; J2405; J2765

== ENCOUNTER 2024-05-12 14:05 | Outpatient (AMB) | payer OTHER, SELFPAY ==
--- NOTE | 2024-05-12 14:07 | A.OFFVIS_ITS ---
Vital Signs 05/12/24 14:15 Height 5 ft 7 in Weight 271 lb 2.697 oz BMI 42.5 BP 138/88 Blood Pressure Location Rt brachial Position Sitting Pulse 96 Pulse Source Pulse Oximeter Intake Visit Reasons: DM/CONFIRMED Intake Note: Patient presents today for [facility] follow up visit. Last Diabetic Eye exam: DUE Last Podiatry Visit: Does not see a Tube Builder Random Glucose: 143 mg/dL HgA1c: 7.8%, 05/12/2024 Master In Chancery Required: Yes Master In Chancery Language: Micronesian Accompanied by: Self / Same As Patient Allergies Penicillins Allergy (Severe, Verified 05/12/24 14:15) swelling adhesive tape [ADHESIVE TAPE] Allergy (Intermediate, Verified 05/12/24 14:15) RASH amoxicillin [AMOXICILLIN] Allergy (Intermediate, Verified 05/12/24 14:15) RASH,SWELLING ibuprofen [From Motrin] Allergy (Intermediate, Verified 05/12/24 14:15) Hypertension latex Allergy (Intermediate, Verified 05/12/24 14:15) Rash Medication List - Last Reconciled 05/12/24 by Monet Plata PA-C acetaminophen ER 650 mg PO Q8H PRN 30 days albuterol sulfate 90 mcg/actuation (Ventolin HFA) 1 puff PO Q4H PRN 30 days atorvastatin 10 mg PO BEDTIME blood pressure monitor Use as needed blood sugar diagnostic (FreeStyle Test strips) Use 1 test strip once a day [BP monitor As directed] bumetanide 1 mg PO BID cholecalciferol (vitamin D3) 50 mcg PO DAILY 90 days clonidine HCl 1 mg PO TID CPAP (CPAP Machine/Device) As directed dicyclomine 20 mg (2 x 10 mg) PO QID PRN 30 days diphenoxylate-atropine 2.5-0.025 mg (Lomotil) 1 tab PO BID PRN dulaglutide (Trulicity) 1.5 mg (0.5 mL) subcut QWEEK duloxetine 60 mg PO QAM ferrous sulfate 325 mg PO DAILY 90 days fluticasone furoate-vilanterol 200-25 mcg/dose (Breo Ellipta) 1 inh inhalation DAILY 30 days gabapentin 800 mg PO TID 90 days hydrocortisone 2.5% 1 appl [place] BID-QID PRN 2 weeks hydroxyzine HCl 25 mg PO BEDTIME insulin glargine (Lantus U-100 Insulin) 15 units (0.15 mL) subcut BEDTIME 90 days insulin lispro 5 units (0.05 mL) subcut TID 30 days levothyroxine 112 mcg PO DAILY@0600 lorazepam 1 mg PO DAILY PRN meclizine 25 mg PO DAILY PRN 90 days metoclopramide HCl 10 mg PO QID metoprolol succinate ER 50 mg PO DAILY 90 days nebulizers As directed pantoprazole 40 mg PO DAILY sennosides (senna) 17.2 mg PO BEDTIME PRN trazodone 150 mg PO BEDTIME PRN zolpidem 5 mg PO BEDTIME PRN HPI HPI DM/CONFIRMED: Details: Patient is a 59-year-old female with a significant past medical history of hypertension, hyperlipidemia, type 2 diabetes, gastroparesis, hypothyroidism and obstructive sleep apnea presenting today for her diabetes. Endo: Her A1c today is 7.8. She is currently on Lantus 15 units at bedtime, lispro 5 units with meals, and Trulicity 0.75 mg every week. Tolerates this well. States that her blood sugars have been more elevated CGM- 35% hypergylcemia, 65% in range, 0 hypoglycemic events -most of the elevated blood sugars are after meal times but she is also waking up high throughout the day. States hypoglycemia is rare. She does report feeling pain throughout her body. She states it is an achy/crampy sensation throughout her hands, feet, legs. This has been going on for years and has gotten worse. She is on gabapentin 100 mg 3 times a day for PCP is states is not that effective. She states that she was hoping today that we could prescribe something for her pain. At times she does get tingling but no numbness. Reports sensation in her hands and feet. No weakness. CV: Blood pressure today is 138/88. She is on metoprolol 50 mg daily. Cholesterol is managed with atorvastatin 10 mg. She does not believe the pains are related to when she start a cholesterol medication. She does have a history of fibromyalgia. [facility] Medical History (Updated 05/12/24 @ 14:59 by Monet Plata PA-C) Essential hypertension Left shoulder pain Type 2 diabetes mellitus Hyperparathyroidism Erosive esophagitis Hypertension Acute diarrhea Pre-op examination Cervical radiculopathy Rash of foot Kiera albicans infection Cervicalgia Environmental allergies Hospital discharge follow-up MARY on CPAP Elevated red blood cell count Screening for hyperlipidemia Chronic pain syndrome Lumbar pain Encounter for annual routine gynecological examination Multiple air fluid levels of small intestine determined by X-ray Abdominal bloating Hypothyroid Sleep apnea Abdominal cramping Edema Anxiety with depression Chronic pain (Unknown) Gastroparesis Left knee pain Hypothyroidism Bilateral shoulder pain Hyperlipidemia LDL goal <70 Degeneration, intervertebral disc, cervical Spondylosis of cervical spine at multiple levels without myelopathy Sleep apnea Renal calculi Incontinence Goiter Disc degeneration, lumbar Spondylosis of lumbar region without myelopathy or radiculopathy Arthropathy of facet joint Insomnia LUDY (generalized anxiety disorder) Moderately severe recurrent major depression Chronic pain syndrome Morbid (severe) obesity due to excess calories Fibromyalgia Small bowel motility disorder Chronic idiopathic constipation Asthma Surgical History History of knee replacement procedure of right knee History of hernia surgery Hx of colonoscopy History of esophagogastroduodenoscopy (EGD) History of cholecystectomy Delivery by section History of hysterectomy Family History Father Past heart attack Anxiety Mother MOF (multiple organ failure) Brother HIV (human immunodeficiency virus infection) Sister Ovarian cancer Lupus Bone cancer Uterine cancer Tumor Daughter Guillain-[place] Sister Lupus History of open heart surgery Family/Other Depression FH: mental illness Maternal Aunt Breast cancer Maternal Aunt Tumor Social History Household Members: None Household Members Other:: Housing: Apartment Are you a primary small animal caretaker to a significant other at home: No Do you presently have visiting nurse or other home services: Yes Alcohol intake: never Patient Tobacco Use Status: Never used Tobacco e-Cigarette/Vaping Use: Never Used Second Hand Smoke Exposure: Yes Advance Directives Date on File: 12/08/21 service: No Current occupational status: unemployed and disabled Cognitive needs: Yes Hearing needs: No Vision needs: No Physical Exam Vital Signs: Last Vital Signs Pulse 96 05/12/24 14:15 BP 138/88 05/12/24 14:15 BMI result Body Mass Index 42.5 Const Orientation/consciousness: patient oriented x3 Neck Neck: Yes no lymphadenopathy Thyroid: Thyroid normal Carotids: no bruits Resp Auscultation: clear to auscultation bilaterally Cardio Rate: regular rate Rhythm: regular rhythm Heart sounds: S1 normal heart sound present and S2 normal heart sound present Peripheral pulses: dorsalis pedis present Neuro General: patient oriented x3, gait normal and no focal motor deficits Extrem Other: Monofilament sensation intact bilaterally. Vibratory sensation intact bilaterally. Skin intact. General: Yes normal to inspection Results AMB Hemoglobin A1c AMB Hemoglobin A1c 7.8 % Last Edit by KAN Mendoza on 05/12/24 14:38 Results Reviewed Results Reviewed: Laboratory Last Values Glucose (Clinic) 141 mg/dL (60-115) H 05/12/24 14:22 Laboratory Tests 02/17/24 02/17/24 03/21/24 10:53 12:23 16:20 Sodium 143 Potassium 4.2 Chloride 110 H Carbon Dioxide 25 Anion Gap 12 BUN 17 H Creatinine 0.82 Estim Creat Clear Calc 100.7 Estimated GFR > 60 Random Glucose 99 Hgb A1c (Clinic) 6.8 H Total Bilirubin 0.6 AST 22 ALT 28 Triglycerides 76 Cholesterol 122 LDL Cholesterol, Calc 60 HDL Cholesterol 47 Assessment & Plan Assessment & Plan (1) Uncontrolled type 2 diabetes mellitus with hyperglycemia, with long-term current use of insulin: Code(s): E11.65 - Type 2 diabetes mellitus with hyperglycemia; Z79.4 - terminal makeup operator (current) use of insulin Category: Medical Plan: I will increase Lantus to 18 units. Increase Trulicity to 1.5 mg weekly. Continue with the lipro dosing. Glucose tabs ordered to use as needed for hypoglycemic events. Rule of 15 discussed. Follow-up in 3 months. Sooner if needed. Patient understands and agrees with the plan. (2) Essential hypertension: Code(s): I10 - Essential (primary) hypertension Category: Medical Plan: Continue current regimen (3) Polyarthropathy: Code(s): M13.0 - Polyarthritis, unspecified Category: Medical Plan: Advised follow-up with PCP , already has appointment booked on Wednesday, and continue with the gabapentin. Orders: Orders AMB Hemoglobin A1c Today E11.9 - Type 2 diabetes mellitus without complications Medications: New dulaglutide (Trulicity) 1.5 mg (0.5 mL) subcut QWEEK 2 mL 3RF glucose (Dex4 Glucose) until symptoms of low blood sugar are controlled 16 grams (4 x 4 gram) PO Q15M PRN 100 tabs 0RF hypoglycemia Changed From insulin glargine (Lantus U-100 Insulin) 15 units (0.15 mL) subcut BEDTIME 90 days 13.5 mL 1RF To insulin glargine (Lantus U-100 Insulin) 18 units (0.18 mL) subcut BEDTIME 90 days 16.2 mL 1RF Discontinued dulaglutide (Trulicity) Discontinued Reason: Doctor's Order 0.75 mg (0.5 mL) subcut QWEEK 2 mL 5RF E11.9 - Type 2 diabetes mellitus without complications, Z79.4 - terminal makeup operator (current) use of insulin Coding Level of Care Code Est Pt Level 4 (71440) Complex EM visit Add On G2211 Diagnoses Uncontrolled type 2 diabetes mellitus with hyperglycemia, with long-term current use of insulin E11.65; Z79.4 Essential hypertension I10 Polyarthropathy M13.0
[2024-05-12 14:15] VITALS: BP 138/88; PULSE 96; BMI 42.5
[2024-05-12 14:27] LABS: Glucose, Whole Blood 141 mg/dL (60-115)
== END 2024-05-12 14:55 | disposition home or self-care (01) ==
LOC: HO.ENCR 14:05
PROVIDERS: PCP Internal Medicine; Visit Provider Physician Assistant
DX: E11.65 Type 2 diabetes mellitus with hyperglycemia (principal); Z79.4 Long term (current) use of insulin; I10 Essential (primary) hypertension; M13.0 Polyarthritis, unspecified; E11.9 Type 2 diabetes mellitus without complications
CPT/HCPCS: 99214; G2211

== ENCOUNTER 2024-05-22 16:21 | Outpatient (AMB) | payer OTHER, SELFPAY ==
--- NOTE | 2024-05-22 17:01 | MHC.PC.OV ---
Intake Visit Reasons: dm Intake Note: Telehealth follow up DM, c/o back, hands and feet pain Elevator Operator Required: No Accompanied by: Self / Same As Patient Allergies Penicillins Allergy (Severe, Verified 05/22/24 20:05) swelling adhesive tape [ADHESIVE TAPE] Allergy (Intermediate, Verified 05/22/24 20:05) RASH amoxicillin [AMOXICILLIN] Allergy (Intermediate, Verified 05/22/24 20:05) RASH,SWELLING ibuprofen [From Motrin] Allergy (Intermediate, Verified 05/22/24 20:05) Hypertension latex Allergy (Intermediate, Verified 05/22/24 20:05) Rash Medication List - Last Reconciled 05/22/24 by Jenny Bell MD acetaminophen ER 650 mg PO Q8H PRN 30 days albuterol sulfate 90 mcg/actuation (Ventolin HFA) 1 puff PO Q4H PRN 30 days atorvastatin 10 mg PO BEDTIME blood pressure monitor Use as needed blood sugar diagnostic (FreeStyle Test strips) Use 1 test strip once a day [BP monitor As directed] bumetanide 1 mg PO BID cholecalciferol (vitamin D3) 50 mcg PO DAILY 90 days clonidine HCl 1 mg PO TID CPAP (CPAP Machine/Device) As directed dicyclomine 20 mg (2 x 10 mg) PO QID PRN 30 days diphenoxylate-atropine 2.5-0.025 mg (Lomotil) 1 tab PO BID PRN dulaglutide (Trulicity) 1.5 mg (0.5 mL) subcut QWEEK duloxetine 60 mg PO QAM ferrous sulfate 325 mg PO DAILY 90 days fluticasone furoate-vilanterol 200-25 mcg/dose (Breo Ellipta) 1 inh inhalation DAILY 30 days gabapentin 800 mg PO TID 90 days glucose (Dex4 Glucose) 16 grams (4 x 4 gram) PO Q15M PRN hydrocortisone 2.5% 1 appl [place] BID-QID PRN 2 weeks hydroxyzine HCl 25 mg PO BEDTIME PRN 10 days insulin glargine (Lantus U-100 Insulin) 18 units (0.18 mL) subcut BEDTIME 90 days insulin lispro 5 units (0.05 mL) subcut TID 30 days levothyroxine 112 mcg PO DAILY@0600 lorazepam 1 mg PO DAILY PRN meclizine 25 mg PO DAILY PRN 90 days metoclopramide HCl 10 mg PO QID metoprolol succinate ER 50 mg PO DAILY 90 days nebulizers As directed pantoprazole 40 mg PO DAILY pregabalin 50 mg PO BID 30 days sennosides (senna) 17.2 mg PO BEDTIME PRN tizanidine 2 mg PO BID 14 days trazodone 150 mg PO BEDTIME PRN zolpidem 5 mg PO BEDTIME PRN Tobacco use date assessed: 10/14/23 Dental Screening Dental Screen Date: 05/22/24 Did you have a dental visit in the last 12 months?: No Did you have a dental problem in the last 6 months where you did not have access to dental care?: No Was dental information given to patient?: Patient has dentist HPI HPI Comments History of Present Illness Details This is a 59-year-old female with diabetes mellitus type 2 on long-term current use of insulin, hypertension, hypothyroidism, hyperlipidemia and lumbar spondylosis that has tele health visit by phone complaining of low back pain that bothers her and gabapentin does not seem to do much. I will start her on Lyrica. 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 Last A1c was elevated but she does not follow diet. Blood pressure usually stable. Lipid panel and TSH will be order to check her hypothyroidism and hyperlipidemia. [facility] Medical History Essential hypertension Left shoulder pain Type 2 diabetes mellitus Hyperparathyroidism Erosive esophagitis Hypertension Acute diarrhea Pre-op examination Cervical radiculopathy Rash of foot Kiera albicans infection Cervicalgia Environmental allergies Hospital discharge follow-up MARY on CPAP Elevated red blood cell count Screening for hyperlipidemia Chronic pain syndrome Lumbar pain Encounter for annual routine gynecological examination Multiple air fluid levels of small intestine determined by X-ray Abdominal bloating Hypothyroid Sleep apnea Abdominal cramping Edema Anxiety with depression Chronic pain (Unknown) Gastroparesis Left knee pain Hypothyroidism Bilateral shoulder pain Hyperlipidemia LDL goal <70 Degeneration, intervertebral disc, cervical Spondylosis of cervical spine at multiple levels without myelopathy Sleep apnea Renal calculi Incontinence Goiter Disc degeneration, lumbar Spondylosis of lumbar region without myelopathy or radiculopathy Arthropathy of facet joint Insomnia LUDY (generalized anxiety disorder) Moderately severe recurrent major depression Chronic pain syndrome Morbid (severe) obesity due to excess calories Fibromyalgia Small bowel motility disorder Chronic idiopathic constipation Asthma Surgical History History of knee replacement procedure of right knee History of hernia surgery Hx of colonoscopy History of esophagogastroduodenoscopy (EGD) History of cholecystectomy Delivery by section History of hysterectomy Family History Father Past heart attack Anxiety Mother MOF (multiple organ failure) Brother HIV (human immunodeficiency virus infection) Sister Ovarian cancer Lupus Bone cancer Uterine cancer Tumor Daughter Guillain-[place] Sister Lupus History of open heart surgery Family/Other Depression FH: mental illness Maternal Aunt Breast cancer Maternal Aunt Tumor Social History Household Members: None Household Members Other:: Housing: Apartment Are you a primary healthcare sales representative to a significant other at home: No Do you presently have visiting nurse or other home services: Yes Alcohol intake: never Patient Tobacco Use Status: Never used Tobacco e-Cigarette/Vaping Use: Never Used Second Hand Smoke Exposure: Yes Advance Directives Date on File: 12/08/21 service: No Current occupational status: unemployed and disabled Cognitive needs: Yes Hearing needs: No Vision needs: No Questionnaire Thrive Questionnaire Date Thrive assessed: 10/14/23 LUDY-7 AMB Questionnaire LUDY-7 Date LUDY - 7 assessed: 10/14/23 Source: Developed by Drs. Shaquille Hitchcock, Janae Devlin, Avery Cutler and colleagues, with an educational carlos from [employer]. Review of Systems Const All systems reviewed & are unremarkable except as noted in HPI and below Card Denies chest pain at rest, Denies chest pain with activity, Denies edema, Denies irregular heart rhythm, Denies claudication, Denies dyspnea, Denies dyspnea on exertion, Denies orthopnea, Denies paroxysmal nocturnal dyspnea and Denies slow heart rate Resp Denies cough, Denies dyspnea and Denies dyspnea on exertion GI Denies abdominal pain, Denies change in bowel habits, Denies excessive flatus, Denies nausea and Denies vomiting Denies urinary incontinence, Denies urinary hesitancy and Denies urinary urgency Musc Reports back pain, Denies atrophy, Denies deformity and Denies limited range of motion Skin/Breast Denies bleeding lesions, Denies changing lesions and Denies rash Physical exam (Primary Care) Tobacco/Smoking Status: Tobacco use Status Tobacco use date assessed 10/14/23 05/22/24 17:06 Patient Tobacco Use Status Never used Tobacco 05/22/24 17:06 Tobacco use type 04/03/24 12:26 e-Cigarette/Vaping Use Never Used 05/22/24 17:06 Thrive Assessment: Date of Thrive Assessment Date Thrive assessed 10/14/23 05/22/24 17:06 Telehealth Telehealth Telehealth Platform: Telephone Location of provider rendering services: practice address Location of patient: address on file Patient Identification confirmed using: Name, : Yes Telehealth method: voice only Patient verbally consented to treatment: Yes Patient verbally consented to billing insurance company: Yes Patient informed of any privacy concerns related to visit: Yes Assessment and Plan Assessment & Plan (1) Uncontrolled type 2 diabetes mellitus with hyperglycemia, with long-term current use of insulin: Code(s): E11.65 - Type 2 diabetes mellitus with hyperglycemia; Z79.4 - prison (current) use of insulin Plan: Continue insulin. A1c goal is equal or less than 7%. (2) Essential hypertension: Code(s): I10 - Essential (primary) hypertension Plan: Continue clonidine. Blood pressure goal is equal or less than 130/80. (3) Hypothyroidism: Code(s): E03.9 - Hypothyroidism, unspecified Plan: Continue levothyroxine. Monitor TSH. (4) Hyperlipidemia LDL goal <70: Code(s): E78.5 - Hyperlipidemia, unspecified Plan: Continue statins. Repeat lipid panel. LDL goal is less than 70. (5) Spondylosis of lumbar region without myelopathy or radiculopathy: Code(s): M47.816 - Spondylosis without myelopathy or radiculopathy, lumbar region Plan: Start gabapentin. Start Lyrica. Orders: Orders Lipid Panel Today E78.5 - Hyperlipidemia, unspecified Microalbumin, Random (w Creat) Today E11.9 - Type 2 diabetes mellitus without complications Vitamin D 25-OH Total Today E55.9 - Vitamin D deficiency, unspecified IRON PROFILE Today D64.9 - Anemia, unspecified Vitamin B12 and Folate Today E53.8 - Deficiency of other specified B group vitamins Comprehensive [place]. Panel Fast Today E78.5 - Hyperlipidemia, unspecified Complete Blood Count Auto Diff Today D64.9 - Anemia, unspecified Thyroid Stimulating Hormone Today E03.9 - Hypothyroidism, unspecified Medications: New pregabalin 50 mg PO BID 30 days 60 caps 0RF Coding Level of Care Code Tele Est Pt Level 4 (60795) Diagnoses Uncontrolled type 2 diabetes mellitus with hyperglycemia, with long-term current use of insulin E11.65; Z79.4 Essential hypertension I10 Hypothyroidism E03.9 Hyperlipidemia LDL goal <70 E78.5 Spondylosis of lumbar region without myelopathy or radiculopathy M47.816 Time Spent (min) 15
== END 2024-05-22 17:38 | disposition home or self-care (01) ==
LOC: HO.HMGH 16:21
PROVIDERS: PCP Internal Medicine; Visit Provider Internal Medicine
DX: E11.65 Type 2 diabetes mellitus with hyperglycemia (principal); Z79.4 Long term (current) use of insulin; I10 Essential (primary) hypertension; E03.9 Hypothyroidism, unspecified; E78.5 Hyperlipidemia, unspecified; M47.816 Spondylosis without myelopathy or radiculopathy, lumbar region
CPT/HCPCS: 99214

== ENCOUNTER → 2024-05-23 12:57 | Outpatient (BNVA) | payer OTHER, SELFPAY | PROVIDERS: PCP Internal Medicine; Visit Provider Advanced Practice Midwife ==

== ENCOUNTER 2024-05-23 13:38 | Emergency (ER) | payer OTHER, SELFPAY ==
--- NOTE | ~2024-05-23 | XR_ITS ---
EXAMINATION: XR CHEST CLINICAL INFORMATION: Pain COMPARISON: 02/17/2024 TECHNIQUE: 2 views of the chest were obtained. FINDINGS: The cardiomediastinal silhouette is stable. There is stable elevation of the right hemidiaphragm. Some streaky atelectasis in the right lung base. There is no dense consolidation. No large effusion or pneumothorax. Surgical clips in the right upper quadrant. No acute osseous abnormalities. XR/XR chest 2V IMPRESSION: No acute cardiopulmonary process. Chronic elevation of the right hemidiaphragm. Electronically signed by: Shaquille Lennon MD 05/23/2024 03:29 PM EDT
--- NOTE | 2024-05-23 13:39 | ECG_ITS ---
Test Reason : CP Blood Pressure : / mmHG Vent. Rate : 069 BPM Atrial Rate : 069 BPM P-R Int : 150 ms QRS Dur : 078 ms QT Int : 412 ms P-R-T Axes : 000 003 012 degrees QTc Int : 441 ms Normal sinus rhythm Normal ECG When compared with ECG of 23-OCT-2023 14:53, No significant change was found Referred By: Alejandro Jacome Electronically Signed By:CARLOS ARCEO
--- NOTE | 2024-05-23 13:40 | ED.GENADULT ---
HPI - General Adult General Stated complaint: Chest discomfort, dizziness, nausea Related Data Home Medications ?Medication ?Instructions ?Recorded ?Confirmed trazodone 150 mg tablet 150 mg PO BEDTIME PRN insomnia 08/25/23 05/22/24 lorazepam 1 mg tablet 1 mg PO DAILY PRN ANXIETY 09/11/23 05/22/24 sennosides 8.6 mg tablet (senna) 17.2 mg PO BEDTIME PRN constipation 09/22/23 05/22/24 zolpidem 5 mg tablet 5 mg PO BEDTIME PRN 02/14/24 05/22/24 CPAP (CPAP Machine/Device) 03/01/24 05/22/24 nebulizers 03/01/24 05/22/24 pantoprazole 40 mg tablet,delayed 40 mg PO DAILY 03/01/24 05/22/24 release clonidine HCl 0.1 mg tablet 1 mg PO TID 03/20/24 05/22/24 Previous Rx's ?Medication ?Instructions ?Recorded metoprolol succinate 50 mg 50 mg PO DAILY 90 days #90 tabs 09/29/23 tablet,extended release 24 hr dicyclomine 10 mg capsule 20 mg (2 x 10 mg) PO QID PRN 10/14/23 abdominal pain 30 days #120 caps blood sugar diagnostic (FreeStyle #100 ea 11/07/23 Test strips) albuterol sulfate 90 mcg/actuation 1 puff PO Q4H PRN for wheezing 12/04/23 aerosol inhaler (Ventolin HFA) days #54 ea acetaminophen 650 mg 650 mg PO Q8H PRN arthritis 30 01/31/24 tablet,extended release days #90 tabs atorvastatin 10 mg tablet 10 mg PO BEDTIME #90 tabs 02/12/24 levothyroxine 112 mcg tablet 112 mcg PO DAILY@0600 #90 tabs 02/12/24 cholecalciferol (vitamin D3) 50 50 mcg PO DAILY 90 days #90 caps 02/17/24 mcg (2,000 unit) capsule ferrous sulfate 325 mg (65 mg 325 mg PO DAILY 90 days #90 tabs 02/17/24 iron) tablet blood pressure monitor #1 ea 02/21/24 insulin lispro 100 unit/mL 5 unit (0.05 mL) subcut TID 30 02/21/24 subcutaneous solution days #4.5 mL bumetanide 1 mg tablet 1 mg PO BID #30 tabs 03/01/24 fluticasone furoate 200 1 inh inhalation DAILY 30 days #1 03/01/24 mcg-vilanterol 25 mcg/dose ea inhalation powder (Breo Ellipta) meclizine 25 mg tablet 25 mg PO DAILY PRN dizziness 90 03/15/24 days #90 tabs BP monitor #1 ea 03/23/24 hydrocortisone 2.5 % topical cream 1 appl [place] BID-QID PRN hemorrhoids 03/27/24 with perineal applicator 2 weeks #30 grams metoclopramide HCl 10 mg tablet 10 mg PO QID #120 tabs 04/11/24 diphenoxylate-atropine 2.5 1 tab PO BID PRN diarrhea #14 tabs 05/05/24 mg-0.025 mg tablet (Lomotil) dulaglutide 1.5 mg/0.5 mL 1.5 mg (0.5 mL) subcut QWEEK #2 mL 05/12/24 subcutaneous pen injector (Trulicity) glucose 4 gram chewable tablet 16 g (4 x 4 gram) PO Q15M PRN 05/12/24 (Dex4 Glucose) hypoglycemia #100 tabs insulin glargine 100 unit/mL 18 unit (0.18 mL) subcut BEDTIME 05/12/24 subcutaneous solution (Lantus 90 days #16.2 mL U-100 Insulin) hydroxyzine HCl 25 mg tablet 25 mg PO BEDTIME PRN itching 10 05/16/24 days #10 tabs pregabalin 50 mg capsule 50 mg PO BID 30 days #60 caps 05/22/24 tizanidine 2 mg tablet 2 mg PO BID muscle spasticity 14 05/22/24 days #28 tabs Allergies Allergy/AdvReac Type Severity Reaction Status Date / Time Penicillins Allergy Severe swelling Verified 05/23/24 13:01 adhesive tape [ADHESIVE TAPE] Allergy Intermediate RASH Verified 05/23/24 13:01 amoxicillin [AMOXICILLIN] Allergy Intermediate RASH,SWELLI Verified 05/23/24 13:01 NG ibuprofen [From Motrin] Allergy Intermediate Hypertensio Verified 05/23/24 13:01 n latex Allergy Intermediate Rash Verified 05/23/24 13:01 [facility] Past Medical History Medical History Essential hypertension Left shoulder pain Type 2 diabetes mellitus Hyperparathyroidism Erosive esophagitis Hypertension Acute diarrhea Pre-op examination Cervical radiculopathy Rash of foot Kiera albicans infection Cervicalgia Environmental allergies Hospital discharge follow-up MARY on CPAP Elevated red blood cell count Screening for hyperlipidemia Chronic pain syndrome Lumbar pain Encounter for annual routine gynecological examination Multiple air fluid levels of small intestine determined by X-ray Abdominal bloating Hypothyroid Sleep apnea Abdominal cramping Edema Anxiety with depression Chronic pain (Unknown) Gastroparesis Left knee pain Hypothyroidism Bilateral shoulder pain Hyperlipidemia LDL goal <70 Degeneration, intervertebral disc, cervical Spondylosis of cervical spine at multiple levels without myelopathy Sleep apnea Renal calculi Incontinence Goiter Disc degeneration, lumbar Spondylosis of lumbar region without myelopathy or radiculopathy Arthropathy of facet joint Insomnia LUDY (generalized anxiety disorder) Moderately severe recurrent major depression Chronic pain syndrome Morbid (severe) obesity due to excess calories Fibromyalgia Small bowel motility disorder Chronic idiopathic constipation Asthma Surgical History History of knee replacement procedure of right knee History of hernia surgery Hx of colonoscopy History of esophagogastroduodenoscopy (EGD) History of cholecystectomy Delivery by section History of hysterectomy Family History Family History Father Past heart attack Anxiety Mother MOF (multiple organ failure) Brother HIV (human immunodeficiency virus infection) Sister Ovarian cancer Lupus Bone cancer Uterine cancer Tumor Daughter Guillain-[place] Sister Lupus History of open heart surgery Family/Other Depression FH: mental illness Maternal Aunt Breast cancer Maternal Aunt Tumor Social History Social History Household Members: None Household Members Other:: Housing: Apartment Are you a primary summer child caregiver to a significant other at home: No Do you presently have visiting nurse or other home services: Yes Alcohol intake: never Patient Tobacco Use Status: Never used Tobacco e-Cigarette/Vaping Use: Never Used Second Hand Smoke Exposure: Yes Advance Directives Date on File: 12/08/21 service: No Current occupational status: unemployed and disabled Cognitive needs: Yes Hearing needs: No Vision needs: No Course Course Course Narrative: RMSaranya, this is a rapid medical exam performed by Ilir Jacome please refer to primary provider for complete H&P- 59 year old female presents for evaluation of multiple complaints. She is presenting from an outpatient OBGYN office for a routine check up. She endorses RLQ abdominal pain, chest pain, dizziness, and shortness of breath. Plan for labs, UA, EKG, chest x-ray Discharge Plan Discharge Prescriptions: No Action metoprolol succinate 50 mg tablet extended release 24 hr 50 mg PO DAILY 90 Days Qty: 90 1RF (DME) FreeStyle Test Strip See Rx Instructions .Route Qty: 100 3RF Rx Instructions: Use 1 test strip once a day albuterol sulfate [Ventolin HFA] 90 mcg/actuation HFA aerosol inhaler 1 puff PO Q4H PRN (Reason: for wheezing) 30 Days Qty: 54 1RF acetaminophen 650 mg tablet extended release 650 mg PO Q8H PRN (Reason: arthritis) 30 Days Qty: 90 1RF levothyroxine 112 mcg tablet 112 mcg PO DAILY@0600 Qty: 90 1RF atorvastatin 10 mg tablet 10 mg PO BEDTIME Qty: 90 1RF ferrous sulfate 325 mg (65 mg iron) tablet 325 mg PO DAILY 90 Days Qty: 90 1RF cholecalciferol (vitamin D3) 50 mcg (2,000 unit) capsule 50 mcg PO DAILY 90 Days Qty: 90 1RF insulin lispro 100 unit/mL solution 5 unit subcut TID 30 Days Qty: 4.5 3RF (DME) blood pressure monitor Kit See Rx Instructions .Route Qty: 1 0RF Rx Instructions: Use as needed meclizine 25 mg tablet 25 mg PO DAILY PRN (Reason: dizziness) 90 Days Qty: 90 0RF (DME) BP monitor See Rx Instructions .Route .MEDSUPPLY Qty: 1 0RF Rx Instructions: As directed hydrocortisone 2.5 % cream with perineal applicator 1 appl VT BID-QID PRN (Reason: hemorrhoids) 14 Days Qty: 30 1RF metoclopramide HCl 10 mg tablet 10 mg PO QID Qty: 120 1RF diphenoxylate-atropine [Lomotil] 2.5-0.025 mg tablet 1 tab PO BID PRN (Reason: diarrhea) Qty: 14 0RF hydroxyzine HCl 25 mg tablet 25 mg PO BEDTIME PRN (Reason: itching) 10 Days Qty: 10 0RF tizanidine 2 mg tablet 2 mg PO BID 14 Days Qty: 28 0RF trazodone 150 mg tablet 150 mg PO BEDTIME PRN (Reason: insomnia) lorazepam 1 mg tablet 1 mg PO DAILY PRN (Reason: ANXIETY) sennosides [senna] 8.6 mg tablet 17.2 mg PO BEDTIME PRN (Reason: constipation) dicyclomine 10 mg capsule 20 mg PO QID PRN (Reason: abdominal pain) 30 Days Qty: 120 0RF clonidine HCl 0.1 mg tablet 1 mg PO TID pregabalin 50 mg capsule 50 mg PO BID 30 Days Qty: 60 0RF zolpidem 5 mg tablet 5 mg PO BEDTIME PRN pantoprazole 40 mg tablet,delayed release (DR/EC) 40 mg PO DAILY (DME) nebulizers Kit See Rx Instructions .Route Rx Instructions: As directed (DME) CPAP Machine/Device Device See Rx Instructions .Route Rx Instructions: As directed bumetanide 1 mg tablet 1 mg PO BID Qty: 30 6RF fluticasone furoate-vilanterol [Breo Ellipta] 200-25 mcg/dose blister with device 1 inh inhalation DAILY 30 Days Qty: 1 6RF Trulicity 1.5 mg/0.5 mL pen injector 1.5 mg subcut QWEEK Qty: 2 3RF insulin glargine [Lantus U-100 Insulin] 100 unit/mL solution 18 unit subcut BEDTIME 90 Days Qty: 16.2 1RF glucose [Dex4 Glucose] 4 gram tablet,chewable 16 g PO Q15M PRN (Reason: hypoglycemia) Qty: 100 0RF Rx Instructions: until symptoms of low blood sugar are controlled Print Language: Hungarian
[2024-05-23 13:51] VITALS: BP 135/71; PULSE 68; RESP 16; TEMP 37.1; BMI 41.8
[2024-05-23 15:05] LABS: MANUAL DIFF FLAG NO
[2024-05-23 15:07] LABS: Basophils Percent Auto 0.2 % (0-2); Eosinophils Absolute Auto 0.3 X10*3/uL (0.0-0.4); Eosinophils Percent Auto 2.5 % (0-4); Hematocrit 40.3 % (37.0-47.0); Hemoglobin 12.3 g/dl (12.0-16.0); Imm Gran Abs Auto 0.08 X10*3/uL (0.00-0.03); Imm Gran Pct Auto 0.6 % (0.0-0.4); Mean Corpuscular HGB Conc 30.5 g/dl (31.0-35.0); Mean Corpuscular Hemoglobin 22.8 pg (27.0-33.0); Mean Corpuscular Volume 74.8 fL (80.0-98.0); Monocytes Absolute Auto 0.6 X10*3/uL (0.1-1.2); Monocytes Percent Auto 4.5 % (2-11); Neutrophils Absolute Auto 9.5 x10*3/uL (2.0-8.3); Neutrophils Percent Auto 76.2 % (45-73); Platelet Count 249 X10*3/uL (160-400); Red Blood Count 5.39 X10*6/uL (4.20-5.50); Red Cell Distribution Width 16.5 % (11.0-16.0); White Blood Count 12.5 X10*3/uL (4.8-10.8)
[2024-05-23 15:14] LABS: INTERNATIONAL NORM RATIO 1.1 (0.9-1.1); Prothrombin Time 13.1 SEC (11.1-13.3)
[2024-05-23 15:19] LABS: COVID-19 Test Negative (Negative); IDNOW Serial# 58CA691E
[2024-05-23 15:23] LABS: Alanine Aminotransferase 18 U/L (0-31); Albumin Level 3.7 g/dL (3.5-5.0); Alkaline Phosphatase 130 U/L (39-117); Anion Gap 12 (12-20); Aspartate Amino Transferase 13 U/L (5-31); Bilirubin Total 0.5 mg/dL (0.0-1.0); Blood Urea Nitrogen 15 mg/dL (9-16); Calcium 9.6 mg/dL (8.4-10.2); Carbon Dioxide 25 mmol/L (22-29); Chloride 106 mmol/L (96-108); Creatinine Clr Calc Pharmacy 111.7; Estimated Glomerular Filt Rate > 60; Glucose Random 122 mg/dL (60-115); Lipase 28 U/L (8-78); Potassium 4.1 mmol/L (3.3-5.1); Sodium 139 mmol/L (135-145); Total Protein 7.5 g/dL (6.5-8.0)
[2024-05-23 15:32] LABS: Troponin-I High Sensitivity < 2.7 ng/L (<3.5-17.0)
== END 2024-05-23 21:30 | disposition left against medical advice (07) ==
PROVIDERS: Physician Assistant; Emergency Provider Emergency Medicine; PCP Internal Medicine
DX: R07.89 Other chest pain (principal); R11.2 Nausea with vomiting, unspecified; R42 Dizziness and giddiness; Z79.899 Other long term (current) drug therapy; Z11.52 Encounter for screening for COVID-19
CPT/HCPCS: 36415; 71046; 80053; 83690; 84484; 85025; 85610; 87635; 93005; 99283

== ENCOUNTER 2024-06-21 12:42 | Outpatient (AMB) | payer OTHER, SELFPAY ==
[2024-06-21 12:51] VITALS: BP 140/86; BMI 42.8
--- NOTE | 2024-06-21 12:51 | A.OFFPC_ITS ---
Vital Signs 06/21/24 12:51 06/21/24 16:31 Height 5 ft 7 in Weight 273 lb 5.971 oz BMI 42.8 BP 140/86 H 140/86 H Blood Pressure Location Lt brachial Lt brachial Position Sitting Sitting Intake Visit Reasons: Difficulty Sleeping Intake Note: patient here c/o stabbing pains on hands and feet, headaches, trouble sleeping, right side back pain radiating to front Vp Information Technology Required: No Accompanied by: Self / Same As Patient Allergies Penicillins Allergy (Severe, Verified 06/21/24 13:25) swelling adhesive tape [ADHESIVE TAPE] Allergy (Intermediate, Verified 06/21/24 13:25) RASH amoxicillin [AMOXICILLIN] Allergy (Intermediate, Verified 06/21/24 13:25) RASH,SWELLING ibuprofen [From Motrin] Allergy (Intermediate, Verified 06/21/24 13:25) Hypertension latex Allergy (Intermediate, Verified 06/21/24 13:25) Rash Medication List - Last Reconciled 06/21/24 by Jenny Bell MD acetaminophen ER 650 mg PO Q8H PRN 30 days albuterol sulfate 90 mcg/actuation (Ventolin HFA) 1 puff PO Q4H PRN 30 days atorvastatin 10 mg PO BEDTIME blood pressure monitor Use as needed blood sugar diagnostic (FreeStyle Test strips) Use 1 test strip once a day [BP monitor As directed] bumetanide 1 mg PO BID cholecalciferol (vitamin D3) 50 mcg PO DAILY 90 days clonidine HCl 1 mg PO TID CPAP (CPAP Machine/Device) As directed dicyclomine 20 mg (2 x 10 mg) PO QID PRN 30 days diphenoxylate-atropine 2.5-0.025 mg (Lomotil) 1 tab PO BID PRN dulaglutide (Trulicity) 1.5 mg (0.5 mL) subcut QWEEK ferrous sulfate 325 mg PO DAILY 90 days fluticasone furoate-vilanterol 200-25 mcg/dose (Breo Ellipta) 1 inh inhalation DAILY 30 days glucose (Dex4 Glucose) 16 grams (4 x 4 gram) PO Q15M PRN hydrocortisone 2.5% 1 appl ND BID-QID PRN 2 weeks hydroxyzine HCl 25 mg PO BEDTIME PRN 10 days insulin glargine (Lantus U-100 Insulin) 18 units (0.18 mL) subcut BEDTIME 90 days insulin lispro 5 units (0.05 mL) subcut TID 30 days levothyroxine 112 mcg PO DAILY@0600 lorazepam 1 mg PO DAILY PRN meclizine 25 mg PO DAILY PRN 90 days metoclopramide HCl 10 mg PO QID metoprolol succinate ER 50 mg PO DAILY 90 days nebulizers As directed pantoprazole 40 mg PO DAILY pregabalin 50 mg PO BID 30 days sennosides (senna) 17.2 mg PO BEDTIME PRN tizanidine 2 mg PO BID 14 days trazodone 150 mg PO BEDTIME PRN triamcinolone acetonide 0.5% 1 appl topical DAILY 2 weeks zolpidem 5 mg PO BEDTIME PRN Tobacco use date assessed: 10/14/23 Dental Screening Dental Screen Date: 05/22/24 HPI HPI Comments History of Present Illness Details This is a 59-year-old female with diabetes mellitus type 2 on long-term current use of insulin, hypertension, hyperlipidemia, hypothyroidism, morbid obesity and moderate recurrent major depression that comes today complaining of diffuse joint pain due to fibromyalgia. A1c still elevated and she follows with endocrinology. Blood pressure borderline stable and clonidine was refill. Lipid panel was order and her LDL goal should be less than 70. TSH was also ordered. She is morbidly obese with a BMI of 42.8 and was advised to do diet an d exercise to reach BMI goal less than 30. She does have diffuse itchiness in which is treated with hydroxyzine and needs refill. Depression is follow by Psychiatry and has been stable. [facility] Medical History Essential hypertension Left shoulder pain Type 2 diabetes mellitus Hyperparathyroidism Erosive esophagitis Hypertension Acute diarrhea Pre-op examination Cervical radiculopathy Rash of foot Kiera albicans infection Cervicalgia Environmental allergies Hospital discharge follow-up MARY on CPAP Elevated red blood cell count Screening for hyperlipidemia Chronic pain syndrome Lumbar pain Encounter for annual routine gynecological examination Multiple air fluid levels of small intestine determined by X-ray Abdominal bloating Hypothyroid Sleep apnea Abdominal cramping Edema Anxiety with depression Chronic pain (Unknown) Gastroparesis Left knee pain Hypothyroidism Bilateral shoulder pain Hyperlipidemia LDL goal <70 Degeneration, intervertebral disc, cervical Spondylosis of cervical spine at multiple levels without myelopathy Sleep apnea Renal calculi Incontinence Goiter Disc degeneration, lumbar Spondylosis of lumbar region without myelopathy or radiculopathy Arthropathy of facet joint Insomnia LUDY (generalized anxiety disorder) Moderately severe recurrent major depression Chronic pain syndrome Morbid (severe) obesity due to excess calories Fibromyalgia Small bowel motility disorder Chronic idiopathic constipation Asthma Surgical History History of knee replacement procedure of right knee History of hernia surgery Hx of colonoscopy History of esophagogastroduodenoscopy (EGD) History of cholecystectomy Delivery by section History of hysterectomy Family History Father Past heart attack Anxiety Mother MOF (multiple organ failure) Brother HIV (human immunodeficiency virus infection) Sister Ovarian cancer Lupus Bone cancer Uterine cancer Tumor Daughter Guillain-[place] Sister Lupus History of open heart surgery Family/Other Depression FH: mental illness Maternal Aunt Breast cancer Maternal Aunt Tumor Social History Household Members: None Household Members Other:: Housing: Apartment Are you a primary special needs child caregiver to a significant other at home: No Do you presently have visiting nurse or other home services: Yes Alcohol intake: never Patient Tobacco Use Status: Never used Tobacco e-Cigarette/Vaping Use: Never Used Second Hand Smoke Exposure: Yes Advance Directives Date on File: 12/08/21 service: No Current occupational status: unemployed and disabled Cognitive needs: Yes Hearing needs: No Vision needs: No Questionnaire Thrive Questionnaire Date Thrive assessed: 10/14/23 Are you currently unemployed and looking for a job?: Yes LUDY-7 AMB Questionnaire LUDY-7 Date LUDY - 7 assessed: 10/14/23 Source: Developed by Drs. Shaquille Hitchcock, Janae Devlin, Avery Cutler and colleagues, with an educational carlos from [employer]. Review of Systems Const All systems reviewed & are unremarkable except as noted in HPI and below Card Denies chest pain at rest, Denies chest pain with activity, Denies edema, Denies irregular heart rhythm, Denies claudication, Denies dyspnea, Denies dyspnea on exertion, Denies orthopnea, Denies paroxysmal nocturnal dyspnea and Denies slow heart rate Resp Denies cough, Denies dyspnea and Denies dyspnea on exertion GI Denies abdominal pain, Denies change in bowel habits, Denies excessive flatus, Denies nausea and Denies vomiting Physical exam (Primary Care) Vital Signs: Last Vital Signs BP 140/86 H 06/21/24 12:51 BMI result Body Mass Index 42.8 BMI Assessment/Plan discussion: High BMI High, discussed plan: lifestyle, weight reduction, dietary and physical activity Tobacco/Smoking Status: Tobacco use Status Tobacco use date assessed 10/14/23 06/21/24 12:55 Patient Tobacco Use Status Never used Tobacco 06/21/24 12:55 Tobacco use type 06/17/24 09:21 e-Cigarette/Vaping Use Never Used 06/21/24 12:55 Thrive Assessment: Date of Thrive Assessment Date Thrive assessed 10/14/23 06/21/24 12:55 Resp Effort & Inspection: normal respiratory effort Auscultation: clear to auscultation bilaterally Cardio Jugular venous distension: no JVD Rate: regular rate Rhythm: regular rhythm Heart sounds: S1 normal heart sound present and S2 normal heart sound present Extrem General: Yes full ROM Assessment and Plan Assessment & Plan (1) Uncontrolled type 2 diabetes mellitus with hyperglycemia, with long-term current use of insulin: Code(s): E11.65 - Type 2 diabetes mellitus with hyperglycemia; Z79.4 - nursing home (current) use of insulin Plan: Continue insulin and Trulicity. Follow-up with endocrinology. A1c goal is equal or less than 7%. (2) Essential hypertension: Code(s): I10 - Essential (primary) hypertension Plan: Continue clonidine and metoprolol. Blood pressure goal is equal or less than 130/80. (3) Hypothyroidism: Code(s): E03.9 - Hypothyroidism, unspecified Plan: Continue levothyroxine. Monitor TSH. (4) Hyperlipidemia LDL goal <70: Code(s): E78.5 - Hyperlipidemia, unspecified Plan: Continue statins. Repeat lipid panel. LDL goal is less than 70. (5) Moderately severe recurrent major depression: Code(s): F33.2 - Major depressive disorder, recurrent severe without psychotic features Plan: Continue trazodone. Follow-up with psychiatry (6) Morbid (severe) obesity due to excess calories: Code(s): E66.01 - Morbid (severe) obesity due to excess calories Plan: Start diet and exercise. BMI goal is less than 30. (7) Fibromyalgia: Code(s): M79.7 - Fibromyalgia Plan: Increase pregabalin. Orders: Orders IRON PROFILE Today D64.9 - Anemia, unspecified Lipid Panel Today E78.5 - Hyperlipidemia, unspecified Comprehensive [place]. Panel Fast Today E11.65 - Type 2 diabetes mellitus with hyperglycemia, Z79.4 - nursing home (current) use of insulin Complete Blood Count Auto Diff Today D64.9 - Anemia, unspecified Microalbumin, Random (w Creat) Today R80.9 - Proteinuria, unspecified Vitamin D 25-OH (D2 and D3) Today E55.9 - Vitamin D deficiency, unspecified Thyroid Stimulating Hormone Today E03.9 - Hypothyroidism, unspecified Medications: New pregabalin 100 mg PO BID 30 days 60 caps 0RF Changed From hydroxyzine HCl 25 mg PO BEDTIME 10 days PRN 10 tabs 0RF itching To hydroxyzine HCl 25 mg PO BEDTIME 30 days PRN 30 tabs 0RF itching From clonidine HCl 1 mg PO TID To clonidine HCl 1 mg (10 x 0.1 mg) PO TID 30 days 90 tabs 0RF Discontinued pregabalin Discontinued Reason: Patient Completed Course 50 mg PO BID 30 days 60 caps 0RF Coding Level of Care Code Est Pt Level 4 (10491) Complex EM visit Add On G2211 Diagnoses Uncontrolled type 2 diabetes mellitus with hyperglycemia, with long-term current use of insulin E11.65; Z79.4 Essential hypertension I10 Hypothyroidism E03.9 Hyperlipidemia LDL goal <70 E78.5 Moderately severe recurrent major depression F33.2 Morbid (severe) obesity due to excess calories E66.01 Fibromyalgia M79.7 Time Spent (min) 24
[2024-06-21 16:31] VITALS: BP 140/86
== END 2024-06-21 13:42 | disposition home or self-care (01) ==
PROVIDERS: PCP Internal Medicine; Visit Provider Internal Medicine
DX: E11.65 Type 2 diabetes mellitus with hyperglycemia (principal); Z79.4 Long term (current) use of insulin; F33.2 Major depressive disorder, recurrent severe without psychotic features; E66.01 Morbid (severe) obesity due to excess calories; Z68.41 Body mass index [BMI] 40.0-44.9, adult; I10 Essential (primary) hypertension; E03.9 Hypothyroidism, unspecified; E78.5 Hyperlipidemia, unspecified; M79.7 Fibromyalgia

== ENCOUNTER → 2024-06-21 12:42 | Outpatient (BNVA) | payer OTHER, SELFPAY | PROVIDERS: PCP Internal Medicine; Visit Provider Internal Medicine | DX: E11.65 Type 2 diabetes mellitus with hyperglycemia (principal); I10 Essential (primary) hypertension; E03.9 Hypothyroidism, unspecified; E78.5 Hyperlipidemia, unspecified; F33.2 Major depressive disorder, recurrent severe without psychotic features; Z79.4 Long term (current) use of insulin | CPT/HCPCS: 99212 ==

== ENCOUNTER 2024-06-23 12:43 | Outpatient (REF) | payer OTHER, SELFPAY ==
[2024-06-23 13:02] LABS: MANUAL DIFF FLAG NO
[2024-06-23 13:45] LABS: Basophils Absolute Auto 0.1 X10*3/uL (0.0-0.2); Basophils Percent Auto 0.5 % (0-2); Eosinophils Absolute Auto 0.4 X10*3/uL (0.0-0.4); Eosinophils Percent Auto 2.7 % (0-4); Hemoglobin 13.1 g/dl (12.0-16.0); Imm Gran Abs Auto 0.12 X10*3/uL (0.00-0.03); Imm Gran Pct Auto 0.9 % (0.0-0.4); Lymphocytes Absolute Auto 2.4 X10*3/uL (1.2-4.9); Lymphocytes Percent Auto 18.4 % (20-40); Mean Corpuscular HGB Conc 31.2 g/dl (31.0-35.0); Mean Corpuscular Hemoglobin 23.7 pg (27.0-33.0); Mean Corpuscular Volume 75.9 fL (80.0-98.0); Mean Platelet Volume 10.7 fL (9.4-12.3); Monocytes Absolute Auto 0.6 X10*3/uL (0.1-1.2); Monocytes Percent Auto 4.2 % (2-11); Neutrophils Absolute Auto 9.7 x10*3/uL (2.0-8.3); Neutrophils Percent Auto 73.3 % (45-73); Platelet Count 250 X10*3/uL (160-400); Red Blood Count 5.53 X10*6/uL (4.20-5.50); Red Cell Distribution Width 17.6 % (11.0-16.0); White Blood Count 13.2 X10*3/uL (4.8-10.8)
[2024-06-23 14:34] LABS: Alanine Aminotransferase 20 U/L (0-31); Albumin Level 3.9 g/dL (3.5-5.0); Alkaline Phosphatase 115 U/L (39-117); Anion Gap 12 (12-20); Aspartate Amino Transferase 14 U/L (5-31); Bilirubin Total 0.5 mg/dL (0.0-1.0); Blood Urea Nitrogen 12 mg/dL (9-16); Calcium 9.4 mg/dL (8.4-10.2); Carbon Dioxide 26 mmol/L (22-29); Chloride 105 mmol/L (96-108); Cholesterol 141 mg/dL (<200); Estimated Glomerular Filt Rate > 60; Glucose Fasting 136 mg/dL (60-99); HDL Cholesterol 48 mg/dL (>40); Iron 35 mcg/dL (30-160); LDL Cholesterol Calculated 74 mg/dL (<100); Percent Iron Saturation 12 % (15-50); Potassium 4.2 mmol/L (3.3-5.1); Sodium 139 mmol/L (135-145); Total Iron Binding Capacity 294 mcg/dL (228-428); Total Protein 7.8 g/dL (6.5-8.0); Triglycerides 99 mg/dL (<150); Unsaturated Iron Binding 259 ug/dL
[2024-06-23 14:41] LABS: Thyroid Stimulating Hormone 3.65 uIU/mL (0.32-4.0)
[2024-06-23 14:59] LABS: Folate 7.5 ng/mL (> or = 4.0); Vitamin B12 602 pg/mL (200-900)
[2024-06-28 14:38] LABS: Vitamin D 25-OH, D2 7 ng/mL; Vitamin D 25-OH, D3 13 ng/mL; Vitamin D 25-OH, Total 20 ng/mL (30-100)
== END 2024-06-23 12:44 | disposition home or self-care (01) ==
LOC: HO.LAB 12:43
PROVIDERS: PCP Internal Medicine; Visit Provider Internal Medicine
DX: E55.9 Vitamin D deficiency, unspecified (principal); E78.5 Hyperlipidemia, unspecified; E53.8 Deficiency of other specified B group vitamins; D64.9 Anemia, unspecified; E11.65 Type 2 diabetes mellitus with hyperglycemia; Z79.4 Long term (current) use of insulin; E03.9 Hypothyroidism, unspecified
CPT/HCPCS: 36415; 80053; 80061; 82306; 82607; 82746; 83540; 84443; 85025

== ENCOUNTER 2024-06-27 11:19 | Outpatient (AMB) | payer OTHER, SELFPAY ==
[2024-06-27 11:20] VITALS: BP 152/70; PULSE 95; O2SAT 95; BMI 42.8
--- NOTE | 2024-06-27 11:20 | A.OFFVIS_ITS ---
Vital Signs 06/27/24 11:20 Height 5 ft 7 in Weight 273 lb BMI 42.8 BP 152/70 H Blood Pressure Location Lt brachial Position Sitting Pulse 95 Pulse Source Doppler Pulse Oximetry (%) 95 Oxygen Delivery Method Room Air Intake Visit Reasons: asthma Allergies Penicillins Allergy (Severe, Verified 06/27/24 12:15) swelling adhesive tape [ADHESIVE TAPE] Allergy (Intermediate, Verified 06/27/24 12:15) RASH amoxicillin [AMOXICILLIN] Allergy (Intermediate, Verified 06/27/24 12:15) RASH,SWELLING ibuprofen [From Motrin] Allergy (Intermediate, Verified 06/27/24 12:15) Hypertension latex Allergy (Intermediate, Verified 06/27/24 12:15) Rash HPI HPI asthma: Details: 59-year-old lady, nonsmoker but with exposure to secondhand smoke, with underlying history of elevated right-sided diaphragm, now followed for asthma, MARY, and dyspnea on exertion. She continues to use Advair 230 and albuterol MDI with reasonable control of her asthma symptoms. Patient today complains of feeling dizzy in her fingerstick getting progressively elevated. Patient brought to emergency room for evaluation. COUNT INCLUDES THE [facility] Medical History Essential hypertension Left shoulder pain Type 2 diabetes mellitus Hyperparathyroidism Erosive esophagitis Hypertension Acute diarrhea Pre-op examination Cervical radiculopathy Rash of foot Kiera albicans infection Cervicalgia Environmental allergies Hospital discharge follow-up MARY on CPAP Elevated red blood cell count Screening for hyperlipidemia Chronic pain syndrome Lumbar pain Encounter for annual routine gynecological examination Multiple air fluid levels of small intestine determined by X-ray Abdominal bloating Hypothyroid Sleep apnea Abdominal cramping Edema Anxiety with depression Chronic pain (Unknown) Gastroparesis Left knee pain Hypothyroidism Bilateral shoulder pain Hyperlipidemia LDL goal <70 Degeneration, intervertebral disc, cervical Spondylosis of cervical spine at multiple levels without myelopathy Sleep apnea Renal calculi Incontinence Goiter Disc degeneration, lumbar Spondylosis of lumbar region without myelopathy or radiculopathy Arthropathy of facet joint Insomnia LUDY (generalized anxiety disorder) Moderately severe recurrent major depression Chronic pain syndrome Morbid (severe) obesity due to excess calories Fibromyalgia Small bowel motility disorder Chronic idiopathic constipation Asthma Surgical History History of knee replacement procedure of right knee History of hernia surgery Hx of colonoscopy History of esophagogastroduodenoscopy (EGD) History of cholecystectomy Delivery by section History of hysterectomy Family History Father Past heart attack Anxiety Mother MOF (multiple organ failure) Brother HIV (human immunodeficiency virus infection) Sister Ovarian cancer Lupus Bone cancer Uterine cancer Tumor Daughter Guillain-[place] Sister Lupus History of open heart surgery Family/Other Depression FH: mental illness Maternal Aunt Breast cancer Maternal Aunt Tumor Social History Household Members: None Household Members Other:: Housing: Apartment Are you a primary patient care nursing assistant to a significant other at home: No Do you presently have visiting nurse or other home services: Yes Alcohol intake: never Patient Tobacco Use Status: Never used Tobacco e-Cigarette/Vaping Use: Never Used Second Hand Smoke Exposure: Yes Advance Directives Date on File: 12/08/21 Do you have a plan to hurt others: No Plan service: No Current occupational status: unemployed and disabled Cognitive needs: Yes Hearing needs: No Vision needs: No Review of Systems Const Reports malaise Physical Exam Vital Signs: Last Vital Signs Pulse 95 06/27/24 11:20 BP 152/70 H 06/27/24 11:20 Pulse Ox 95 06/27/24 11:20 Oxygen Delivery Method Room Air 06/27/24 11:20 BMI result Body Mass Index 42.8 Const General: no acute distress and alert Nutritional Appearance: obese Orientation/consciousness: Other orientation findings ( oriented) HEENT Head: Yes atraumatic Eyes General: appearance normal, both eyes and all related structures Sclerae: sclerae normal EOM: EOMs intact bilaterally Neck Neck: Yes supple Lymphatic: no lymphadenopathy noted Resp Effort & Inspection: normal respiratory effort and no use of accessory muscles Auscultation: clear to auscultation bilaterally Cardio Rate: regular rate Rhythm: regular rhythm Heart sounds: no gallops, no murmurs and no rubs Skin General skin exam: other ( warm) Extrem General: No clubbing, No cyanosis and No edema Assessment & Plan Assessment & Plan (1) MARY (obstructive sleep apnea): Code(s): G47.33 - Obstructive sleep apnea (adult) (pediatric) Category: Medical Plan: Well controlled on current CPAP therapy. Continue CPAP therapy. (2) Asthma: Code(s): J45.909 - Unspecified asthma, uncomplicated Category: Medical Qualifiers: Asthma severity: moderate Asthma persistence: persistent Asthma complication type: uncomplicated Qualified Code(s): J45.40 - Moderate persistent asthma, uncomplicated Plan: Well controlled on Breo and albuterol MDI/nebs. Continue current regimen. Coding Level of Care Code Est Pt Level 4 (71043) Diagnoses MARY (obstructive sleep apnea) G47.33 Moderate persistent asthma without complication J45.40 Asthma severity: moderate Asthma persistence: persistent Asthma complication type: uncomplicated
== END 2024-06-27 13:35 | disposition home or self-care (01) ==
PROVIDERS: PCP Internal Medicine; Visit Provider Internal Medicine Pulmonary Disease
DX: G47.33 Obstructive sleep apnea (adult) (pediatric) (principal); J45.40 Moderate persistent asthma, uncomplicated
CPT/HCPCS: 99214

== ENCOUNTER → 2024-06-27 11:19 | Outpatient (BNVA) | payer OTHER, SELFPAY | PROVIDERS: PCP Internal Medicine; Visit Provider Internal Medicine Pulmonary Disease ==

== ENCOUNTER 2024-06-27 11:57 | Emergency (ER) | payer OTHER, SELFPAY ==
--- NOTE | ~2024-06-27 | XR_ITS ---
EXAMINATION: XR CHEST CLINICAL INFORMATION: Chest tightness, shortness of breath COMPARISON: 05/23/2024 TECHNIQUE: 2 views of the chest were obtained. FINDINGS: Similar elevation of the right hemidiaphragm. No consolidation, pleural effusion or pneumothorax. Some atelectasis overlying the right lung base. Cardiomediastinal silhouette is stable. No acute osseous abnormalities. XR/XR chest 2V IMPRESSION: Similar elevation of the right hemidiaphragm. No acute cardiopulmonary process. Electronically signed by: Shaquille Lennon MD 06/27/2024 01:54 PM EDT
--- NOTE | 2024-06-27 12:07 | ECG_ITS ---
Test Reason : chest pain Blood Pressure : / mmHG Vent. Rate : 078 BPM Atrial Rate : 078 BPM P-R Int : 140 ms QRS Dur : 082 ms QT Int : 402 ms P-R-T Axes : 042 003 020 degrees QTc Int : 458 ms Normal sinus rhythm Normal ECG When compared with ECG of 23-MAY-2024 13:37, No significant change was found Referred By: Dorothea Douglas Electronically Signed By:CARLOS ARCEO
[2024-06-27 12:14] VITALS: BP 156/77; PULSE 79; RESP 18; TEMP 36.9; O2SAT 95; BMI 26.8
--- NOTE | 2024-06-27 12:24 | ED.CHESTPAIN ---
HPI - Chest Pain General Chief Complaint: Chest Pain Stated Complaint: Chest pain, L arm numbness Time Seen by Provider: 06/27/24 21:21 Source: patient Mode of arrival: ambulatory Limitations: no limitations History of Present Illness ED Provider: marci LEON narrative: Patient with multiple comorbid condition including hypertension hyperlipidemia mood disorder diabetes hypothyroidism congestive heart failure with ejection fraction sleep apnea been to our hospital multiple times for multiple complaints came here at noon time with the chest pain which is going on for last few days pain is sharp in character lasting only for few seconds patient had 2 sets of troponin done prior to my evaluation which were currently patient does not have any chest pain complaining of headache EKG without any ischemic change Related Data Home Medications ?Medication ?Instructions ?Recorded ?Confirmed trazodone 150 mg tablet 150 mg PO BEDTIME PRN insomnia 08/25/23 06/21/24 lorazepam 1 mg tablet 1 mg PO DAILY PRN ANXIETY 09/11/23 06/21/24 sennosides 8.6 mg tablet (senna) 17.2 mg PO BEDTIME PRN constipation 09/22/23 06/21/24 zolpidem 5 mg tablet 5 mg PO BEDTIME PRN 02/14/24 06/21/24 CPAP (CPAP Machine/Device) 03/01/24 06/21/24 nebulizers 03/01/24 06/21/24 pantoprazole 40 mg tablet,delayed 40 mg PO DAILY 03/01/24 06/21/24 release Previous Rx's ?Medication ?Instructions ?Recorded metoprolol succinate 50 mg 50 mg PO DAILY 90 days #90 tabs 09/29/23 tablet,extended release 24 hr dicyclomine 10 mg capsule 20 mg (2 x 10 mg) PO QID PRN 10/14/23 abdominal pain 30 days #120 caps blood sugar diagnostic (FreeStyle #100 ea 11/07/23 Test strips) albuterol sulfate 90 mcg/actuation 1 puff PO Q4H PRN for wheezing 30 12/04/23 aerosol inhaler (Ventolin HFA) days #54 ea acetaminophen 650 mg 650 mg PO Q8H PRN arthritis 30 01/31/24 tablet,extended release days #90 tabs atorvastatin 10 mg tablet 10 mg PO BEDTIME #90 tabs 02/12/24 levothyroxine 112 mcg tablet 112 mcg PO DAILY@0600 #90 tabs 02/12/24 cholecalciferol (vitamin D3) 50 50 mcg PO DAILY 90 days #90 caps 02/17/24 mcg (2,000 unit) capsule ferrous sulfate 325 mg (65 mg 325 mg PO DAILY 90 days #90 tabs 02/17/24 iron) tablet blood pressure monitor #1 ea 02/21/24 insulin lispro 100 unit/mL 5 unit (0.05 mL) subcut TID 30 02/21/24 subcutaneous solution days #4.5 mL bumetanide 1 mg tablet 1 mg PO BID #30 tabs 03/01/24 fluticasone furoate 200 1 inh inhalation DAILY 30 days #1 03/01/24 mcg-vilanterol 25 mcg/dose ea inhalation powder (Breo Ellipta) meclizine 25 mg tablet 25 mg PO DAILY PRN dizziness 90 03/15/24 days #90 tabs BP monitor #1 ea 03/23/24 metoclopramide HCl 10 mg tablet 10 mg PO QID #120 tabs 04/11/24 diphenoxylate-atropine 2.5 1 tab PO BID PRN diarrhea #14 tabs 05/05/24 mg-0.025 mg tablet (Lomotil) dulaglutide 1.5 mg/0.5 mL 1.5 mg (0.5 mL) subcut QWEEK #2 mL 05/12/24 subcutaneous pen injector (Trulicity) glucose 4 gram chewable tablet 16 g (4 x 4 gram) PO Q15M PRN 05/12/24 (Dex4 Glucose) hypoglycemia #100 tabs insulin glargine 100 unit/mL 18 unit (0.18 mL) subcut BEDTIME 05/12/24 subcutaneous solution (Lantus 90 days #16.2 mL U-100 Insulin) hydrocortisone 2.5 % topical cream 1 appl VT BID-QID PRN hemorrhoids 05/27/24 with perineal applicator 2 weeks #30 grams triamcinolone acetonide 0.5 % 1 appl topical DAILY 2 weeks #15 05/27/24 topical cream grams tizanidine 2 mg tablet 2 mg PO BID muscle spasticity 14 05/30/24 days #28 tabs hydroxyzine HCl 25 mg tablet 25 mg PO BEDTIME PRN itching 30 06/21/24 days #30 tabs pregabalin 100 mg capsule 100 mg PO BID 30 days #60 caps 06/21/24 clonidine HCl 0.1 mg tablet 1 mg (10 x 0.1 mg) PO TID 30 days 06/26/24 #90 tabs sumatriptan succinate 50 mg tablet 50 mg PO .QD PRN migraine headache 06/28/24 (Imitrex) #14 tabs Allergies Allergy/AdvReac Type Severity Reaction Status Date / Time Penicillins Allergy Severe swelling Verified 06/27/24 12:15 adhesive tape [ADHESIVE TAPE] Allergy Intermediate RASH Verified 06/27/24 12:15 amoxicillin [AMOXICILLIN] Allergy Intermediate RASH,SWELLI Verified 06/27/24 12:15 NG ibuprofen [From Motrin] Allergy Intermediate Hypertensio Verified 06/27/24 12:15 n latex Allergy Intermediate Rash Verified 06/27/24 12:15 Review of Systems Review of Systems: Yes all other systems are reviewed and are negative [facility] [place] Past Medical History Medical History Essential hypertension Left shoulder pain Type 2 diabetes mellitus Hyperparathyroidism Erosive esophagitis Hypertension Acute diarrhea Pre-op examination Cervical radiculopathy Rash of foot Kiera albicans infection Cervicalgia Environmental allergies Hospital discharge follow-up MARY on CPAP Elevated red blood cell count Screening for hyperlipidemia Chronic pain syndrome Lumbar pain Encounter for annual routine gynecological examination Multiple air fluid levels of small intestine determined by X-ray Abdominal bloating Hypothyroid Sleep apnea Abdominal cramping Edema Anxiety with depression Chronic pain (Unknown) Gastroparesis Left knee pain Hypothyroidism Bilateral shoulder pain Hyperlipidemia LDL goal <70 Degeneration, intervertebral disc, cervical Spondylosis of cervical spine at multiple levels without myelopathy Sleep apnea Renal calculi Incontinence Goiter Disc degeneration, lumbar Spondylosis of lumbar region without myelopathy or radiculopathy Arthropathy of facet joint Insomnia LUDY (generalized anxiety disorder) Moderately severe recurrent major depression Chronic pain syndrome Morbid (severe) obesity due to excess calories Fibromyalgia Small bowel motility disorder Chronic idiopathic constipation Asthma Surgical History History of knee replacement procedure of right knee History of hernia surgery Hx of colonoscopy History of esophagogastroduodenoscopy (EGD) History of cholecystectomy Delivery by section History of hysterectomy Family History Family History Father Past heart attack Anxiety Mother MOF (multiple organ failure) Brother HIV (human immunodeficiency virus infection) Sister Ovarian cancer Lupus Bone cancer Uterine cancer Tumor Daughter Guillain-[place] Sister Lupus History of open heart surgery Family/Other Depression FH: mental illness Maternal Aunt Breast cancer Maternal Aunt Tumor Social History Social History Household Members: None Household Members Other:: Housing: Apartment Are you a primary date night caregiver to a significant other at home: No Do you presently have visiting nurse or other home services: Yes Alcohol intake: never Patient Tobacco Use Status: Never used Tobacco e-Cigarette/Vaping Use: Never Used Second Hand Smoke Exposure: Yes Advance Directives Date on File: 12/08/21 service: No Current occupational status: unemployed and disabled Cognitive needs: Yes Hearing needs: No Vision needs: No Physical Exam Vital Signs: Vital Signs: Last Vital Signs Temp 98.8 F 06/27/24 21:51 Pulse 76 06/27/24 21:51 Resp 12 06/27/24 21:51 BP 169/71 H 06/27/24 21:51 Pulse Ox 96 06/27/24 20:18 O2 Del Method Room Air 06/27/24 21:51 BMI result Body Mass Index 26.8 Appearance: Alert. Oriented X3. No acute distress. Eyes: No pallor or icterus ENT: Pharynx normal. Oral Mucosa moist Neck: Normal inspection. Neck supple. CVS: Normal heart rate and rhythm. Pulses normal. Respiratory: No respiratory distress. Equal air entry bilateral, no wheezing/rales/rhonchi Abdomen: Soft and nontender. Bowel sounds are present, Skin: Skin warm and dry. Normal skin color. Normal skin turgor. Extremities: No lower extremity edema. No calf tenderness Neuro: Oriented X 3. Course Course Course Narrative: This is a rapid medical exam performed by Dorothea Douglas PA-C. The patient is a 59-year-old female with history of morbid obesity, diabetes, hypertension, dependent edema, hyperlipidemia amongst other numerous comorbidities, presents with chest pain and shortness of breath since this morning. On exam she does have pitting edema, however her lungs are clear to auscultation she is not hypoxic. Screening labs including troponin, BNP, chest x-ray and EKG obtained. The patient will return to the weight room pending her full assessment. Medications Administered Discontinued Medications Generic Name Dose Route Start Last Admin Trade Name Presley PRN Reason Stop Dose Admin Tramadol HCl 50 mg 06/27/24 21:29 06/27/24 21:47 Tramadol Hcl 50 Mg Tablet PO 06/27/24 21:30 50 mg ONCE ONE Administration Medical Decision Making Medical Decision Making [facility] Narrative: Patient with atypical chest pain 2 sets of cardiac enzymes negative EKG without ischemic changes labs are stable discharge patient home advised to follow with PCP Differential Diagnosis Differential Diagnoses: The differential diagnosis associated with the presentation includes Chest wall pain/chronic pain/ACS/pneumonia/pneumothorax Lab Data [facility] Lab Attestation statement: I reviewed the patient's lab results. 06/27/24 13:45 06/27/24 13:45 Labs: Lab Results 06/27/24 06/27/24 06/27/24 Range/Units 13:45 15:39 17:21 WBC 13.8 H (4.8-10.8) X10*3/uL RBC 5.56 H (4.20-5.50) X10*6/uL Hgb 12.7 (12.0-16.0) g/dl Hct 42.0 (37.0-47.0) % MCV 75.5 L (80.0-98.0) fL MCH 22.8 L (27.0-33.0) pg MCHC 30.2 L (31.0-35.0) g/dl RDW 18.1 H (11.0-16.0) % Plt Count 258 (160-400) X10*3/uL MPV 10.2 (9.4-12.3) fL Immature Gran % (Auto) 0.7 H (0.0-0.4) % Neut % (Auto) 78.1 H (45-73) % Lymph % (Auto) 15.2 L (20-40) % [place] % (Auto) 3.8 (2-11) % Eos % (Auto) 1.9 (0-4) % Baso % (Auto) 0.3 (0-2) % Lymph # (Auto) 2.1 (1.2-4.9) X10*3/uL [place] # (Auto) 0.5 (0.1-1.2) X10*3/uL Eos # (Auto) 0.3 (0.0-0.4) X10*3/uL Baso # (Auto) 0.0 (0.0-0.2) X10*3/uL Abs Immat Gran (auto) 0.10 H (0.00-0.03) X10*3/uL Absolute Neuts (auto) 10.8 H (2.0-8.3) x10*3/uL Absolute Nucleated RBC 0.000 (0.0-0.012) X10*3/uL Nucleated RBC % (auto) 0.0 (0.0-0.2) /100WBC Sodium 137 (135-145) mmol/L Potassium 4.2 (3.3-5.1) mmol/L Chloride 107 (96-108) mmol/L Carbon Dioxide 23 (22-29) mmol/L Anion Gap 11 L (12-20) BUN 17 H (9-16) mg/dL Creatinine 0.75 (0.5-1.4) mg/dL Estim Creat Clear Calc 87.7 Estimated GFR > 60 POC Glucose 73 120 H (60-115) mg/dL Random Glucose 175 H (60-115) mg/dL Calcium 9.0 (8.4-10.2) mg/dL Troponin I High Sens < 2.7 (<3.5-17.0) ng/L B-Natriuretic Peptide < 10 (<100) pg/mL 06/27/24 Range/Units 17:28 WBC (4.8-10.8) X10*3/uL RBC (4.20-5.50) X10*6/uL Hgb (12.0-16.0) g/dl Hct (37.0-47.0) % MCV (80.0-98.0) fL MCH (27.0-33.0) pg MCHC (31.0-35.0) g/dl RDW (11.0-16.0) % Plt Count (160-400) X10*3/uL MPV (9.4-12.3) fL Immature Gran % (Auto) (0.0-0.4) % Neut % (Auto) (45-73) % Lymph % (Auto) (20-40) % [place] % (Auto) (2-11) % Eos % (Auto) (0-4) % Baso % (Auto) (0-2) % Lymph # (Auto) (1.2-4.9) X10*3/uL [place] # (Auto) (0.1-1.2) X10*3/uL Eos # (Auto) (0.0-0.4) X10*3/uL Baso # (Auto) (0.0-0.2) X10*3/uL Abs Immat Gran (auto) (0.00-0.03) X10*3/uL Absolute Neuts (auto) (2.0-8.3) x10*3/uL Absolute Nucleated RBC (0.0-0.012) X10*3/uL Nucleated RBC % (auto) (0.0-0.2) /100WBC Sodium (135-145) mmol/L Potassium (3.3-5.1) mmol/L Chloride (96-108) mmol/L Carbon Dioxide (22-29) mmol/L Anion Gap (12-20) BUN (9-16) mg/dL Creatinine (0.5-1.4) mg/dL Estim Creat Clear Calc Estimated GFR POC Glucose (60-115) mg/dL Random Glucose (60-115) mg/dL Calcium (8.4-10.2) mg/dL Troponin I High Sens < 2.7 (<3.5-17.0) ng/L B-Natriuretic Peptide (<100) pg/mL Independent Interpretation I performed an independent interpretation of an: EKG Interpretation: Normal sinus rhythm heart rate 78 beats per minute normal intervals normal axis no acute STT wave changes no acute impression normal EKG Discharge Plan Discharge Clinical Impression: Atypical chest pain Patient Disposition: Home, Self-Care Instructions: Noncardiac Chest Pain (ED) Additional Instructions: Take medication as prescribed follow up with your PCP Prescriptions: No Action metoprolol succinate 50 mg tablet extended release 24 hr 50 mg PO DAILY 90 Days Qty: 90 1RF (DME) FreeStyle Test Strip See Rx Instructions .Route Qty: 100 3RF Rx Instructions: Use 1 test strip once a day albuterol sulfate [Ventolin HFA] 90 mcg/actuation HFA aerosol inhaler 1 puff PO Q4H PRN (Reason: for wheezing) 30 Days Qty: 54 1RF acetaminophen 650 mg tablet extended release 650 mg PO Q8H PRN (Reason: arthritis) 30 Days Qty: 90 1RF levothyroxine 112 mcg tablet 112 mcg PO DAILY@0600 Qty: 90 1RF atorvastatin 10 mg tablet 10 mg PO BEDTIME Qty: 90 1RF ferrous sulfate 325 mg (65 mg iron) tablet 325 mg PO DAILY 90 Days Qty: 90 1RF cholecalciferol (vitamin D3) 50 mcg (2,000 unit) capsule 50 mcg PO DAILY 90 Days Qty: 90 1RF insulin lispro 100 unit/mL solution 5 unit subcut TID 30 Days Qty: 4.5 3RF (DME) blood pressure monitor Kit See Rx Instructions .Route Qty: 1 0RF Rx Instructions: Use as needed meclizine 25 mg tablet 25 mg PO DAILY PRN (Reason: dizziness) 90 Days Qty: 90 0RF (DME) BP monitor See Rx Instructions .Route .MEDSUPPLY Qty: 1 0RF Rx Instructions: As directed metoclopramide HCl 10 mg tablet 10 mg PO QID Qty: 120 1RF diphenoxylate-atropine [Lomotil] 2.5-0.025 mg tablet 1 tab PO BID PRN (Reason: diarrhea) Qty: 14 0RF hydrocortisone 2.5 % cream with perineal applicator 1 appl VT BID-QID PRN (Reason: hemorrhoids) 14 Days Qty: 30 1RF triamcinolone acetonide 0.5 % cream 1 appl topical DAILY 14 Days Qty: 15 0RF tizanidine 2 mg tablet 2 mg PO BID 14 Days Qty: 28 0RF clonidine HCl 0.1 mg tablet 1 mg PO TID 30 Days Qty: 90 0RF sumatriptan succinate [Imitrex] 50 mg tablet 50 mg PO .QD PRN (Reason: migraine headache) Qty: 14 0RF trazodone 150 mg tablet 150 mg PO BEDTIME PRN (Reason: insomnia) lorazepam 1 mg tablet 1 mg PO DAILY PRN (Reason: ANXIETY) sennosides [senna] 8.6 mg tablet 17.2 mg PO BEDTIME PRN (Reason: constipation) dicyclomine 10 mg capsule 20 mg PO QID PRN (Reason: abdominal pain) 30 Days Qty: 120 0RF zolpidem 5 mg tablet 5 mg PO BEDTIME PRN pantoprazole 40 mg tablet,delayed release (DR/EC) 40 mg PO DAILY (DME) nebulizers Kit See Rx Instructions .Route Rx Instructions: As directed (DME) CPAP Machine/Device Device See Rx Instructions .Route Rx Instructions: As directed bumetanide 1 mg tablet 1 mg PO BID Qty: 30 6RF fluticasone furoate-vilanterol [Breo Ellipta] 200-25 mcg/dose blister with device 1 inh inhalation DAILY 30 Days Qty: 1 6RF Trulicity 1.5 mg/0.5 mL pen injector 1.5 mg subcut QWEEK Qty: 2 3RF insulin glargine [Lantus U-100 Insulin] 100 unit/mL solution 18 unit subcut BEDTIME 90 Days Qty: 16.2 1RF glucose [Dex4 Glucose] 4 gram tablet,chewable 16 g PO Q15M PRN (Reason: hypoglycemia) Qty: 100 0RF Rx Instructions: until symptoms of low blood sugar are controlled pregabalin 100 mg capsule 100 mg PO BID 30 Days Qty: 60 0RF hydroxyzine HCl 25 mg tablet 25 mg PO BEDTIME PRN (Reason: itching) 30 Days Qty: 30 0RF Interventions: ED Discharge Assessment Last Done: 06/27/24 21:51 Discharge Date/Time: 06/27/24 21:52 Print Language: Cameroonian
[2024-06-27 13:53] LABS: MANUAL DIFF FLAG NO
[2024-06-27 13:56] LABS: Basophils Percent Auto 0.3 % (0-2); Eosinophils Absolute Auto 0.3 X10*3/uL (0.0-0.4); Eosinophils Percent Auto 1.9 % (0-4); Hemoglobin 12.7 g/dl (12.0-16.0); Imm Gran Pct Auto 0.7 % (0.0-0.4); Lymphocytes Absolute Auto 2.1 X10*3/uL (1.2-4.9); Lymphocytes Percent Auto 15.2 % (20-40); Mean Corpuscular HGB Conc 30.2 g/dl (31.0-35.0); Mean Corpuscular Hemoglobin 22.8 pg (27.0-33.0); Mean Corpuscular Volume 75.5 fL (80.0-98.0); Mean Platelet Volume 10.2 fL (9.4-12.3); Monocytes Absolute Auto 0.5 X10*3/uL (0.1-1.2); Monocytes Percent Auto 3.8 % (2-11); Neutrophils Absolute Auto 10.8 x10*3/uL (2.0-8.3); Neutrophils Percent Auto 78.1 % (45-73); Platelet Count 258 X10*3/uL (160-400); Red Blood Count 5.56 X10*6/uL (4.20-5.50); Red Cell Distribution Width 18.1 % (11.0-16.0); White Blood Count 13.8 X10*3/uL (4.8-10.8)
[2024-06-27 14:18] LABS: B Type Natriuretic Peptide < 10 pg/mL (<100)
[2024-06-27 14:34] LABS: Anion Gap 11 (12-20); Blood Urea Nitrogen 17 mg/dL (9-16); Carbon Dioxide 23 mmol/L (22-29); Chloride 107 mmol/L (96-108); Creatinine Clr Calc Pharmacy 87.7; Estimated Glomerular Filt Rate > 60; Glucose Random 175 mg/dL (60-115); Potassium 4.2 mmol/L (3.3-5.1); Sodium 137 mmol/L (135-145)
[2024-06-27 14:39] LABS: Troponin-I High Sensitivity < 2.7 ng/L (<3.5-17.0)
[2024-06-27 15:46] LABS: Glucose, Whole Blood 73 mg/dL (60-115)
[2024-06-27 17:48] LABS: Glucose, Whole Blood 120 mg/dL (60-115)
[2024-06-27 18:02] LABS: Troponin-I High Sensitivity < 2.7 ng/L (<3.5-17.0)
[2024-06-27 20:18] VITALS: BP 169/71; PULSE 76; RESP 12; TEMP 37.1; O2SAT 96
[2024-06-27] MEDS: traMADoL HCL 50 MG TABLET PO (21:47)
[2024-06-27 21:51] VITALS: BP 169/71; PULSE 76; RESP 12; TEMP 37.1
== END 2024-06-27 21:52 | disposition home or self-care (01) ==
PROVIDERS: Emergency Provider Internal Medicine; PCP Internal Medicine
DX: R07.89 Other chest pain (principal); I10 Essential (primary) hypertension; E78.5 Hyperlipidemia, unspecified; R06.02 Shortness of breath; Z79.899 Other long term (current) drug therapy
CPT/HCPCS: 36415; 71046; 80048; 82947; 83880; 84484; 85025; 93005; 99212; 99283; 99285

== ENCOUNTER → 2024-07-13 13:13 | Outpatient (BNVA) | payer OTHER, SELFPAY | PROVIDERS: PCP Internal Medicine ==

== ENCOUNTER 2024-07-14 11:22 | Outpatient (AMB) | payer OTHER, SELFPAY ==
[2024-07-14 11:23] VITALS: BP 168/88; PULSE 84; O2SAT 95; BMI 40.7
--- NOTE | 2024-07-14 11:23 | A.OFFPC_ITS ---
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 Required: No Accompanied by: Self / Same As Patient Allergies Penicillins Allergy (Severe, Verified 07/14/24 11:25) swelling adhesive tape [ADHESIVE TAPE] Allergy (Intermediate, Verified 07/14/24 11:25) RASH amoxicillin [AMOXICILLIN] Allergy (Intermediate, Verified 07/14/24 11:25) RASH,SWELLING ibuprofen [From Motrin] Allergy (Intermediate, Verified 07/14/24 11:25) Hypertension latex Allergy (Intermediate, Verified 07/14/24 11:25) Rash Tobacco use date assessed: 10/14/23 Dental Screening Dental Screen Date: 05/22/24 HPI HPI Comments History of Present Illness Details 59 y/o female patient who presents to [facility] for EDF. He was adm itted at [facility] on 06/27/24 and discharged home on the same day. He was evaluated for Chest Pains. Chest Xray and ECG done in ED normal. Today denies CP, SOB, or wheezing. [facility] Medical History Essential hypertension Left shoulder pain Type 2 diabetes mellitus Hyperparathyroidism Erosive esophagitis Hypertension Acute diarrhea Pre-op examination Cervical radiculopathy Rash of foot Kiera albicans infection Cervicalgia Environmental allergies Hospital discharge follow-up MARY on CPAP Elevated red blood cell count Screening for hyperlipidemia Chronic pain syndrome Lumbar pain Encounter for annual routine gynecological examination Multiple air fluid levels of small intestine determined by X-ray Abdominal bloating Hypothyroid Sleep apnea Abdominal cramping Edema Anxiety with depression Chronic pain (Unknown) Gastroparesis Left knee pain Hypothyroidism Bilateral shoulder pain Hyperlipidemia LDL goal <70 Degeneration, intervertebral disc, cervical Spondylosis of cervical spine at multiple levels without myelopathy Sleep apnea Renal calculi Incontinence Goiter Disc degeneration, lumbar Spondylosis of lumbar region without myelopathy or radiculopathy Arthropathy of facet joint Insomnia LUDY (generalized anxiety disorder) Moderately severe recurrent major depression Chronic pain syndrome Morbid (severe) obesity due to excess calories Fibromyalgia Small bowel motility disorder Chronic idiopathic constipation Asthma Surgical History History of knee replacement procedure of right knee History of hernia surgery Hx of colonoscopy History of esophagogastroduodenoscopy (EGD) History of cholecystectomy Delivery by section History of hysterectomy Family History Father Past heart attack Anxiety Mother MOF (multiple organ failure) Brother HIV (human immunodeficiency virus infection) Sister Ovarian cancer Lupus Bone cancer Uterine cancer Tumor Daughter Guillain-[place] Sister Lupus History of open heart surgery Family/Other Depression FH: mental illness Maternal Aunt Breast cancer Maternal Aunt Tumor Social History Household Members: None Household Members Other:: Housing: Apartment Are you a primary care transitions manager to a significant other at home: No Do you presently have visiting nurse or other home services: Yes Alcohol intake: never Patient Tobacco Use Status: Never used Tobacco Tobacco use type: Cigarette e-Cigarette/Vaping Use: Never Used Second Hand Smoke Exposure: Yes Advance Directives Date on File: 12/08/21 service: No Current occupational status: unemployed and disabled Cognitive needs: Yes Hearing needs: No Vision needs: No Questionnaire PHQ-9 Over the last 2 weeks, how often have you been bothered by any of the following problems? 1. Little interest or pleasure in doing things: not at all 2. Feeling down, depressed, or hopeless: not at all 3. Trouble falling or staying asleep, or sleeping too much: not at all 4. Feeling tired or having little energy: not at all 5. Poor appetite or overeating: not at all 6. Feeling bad about yourself - or that you are a failure or have let yourself or your family down: not at all 7. Trouble concentrating on things, such as reading the newspaper or watching television: not at all 8. Moving or speaking so slowly that other people could have noticed. Or the opposite - being so fidgety or restless that you have been moving around a lot more than usual: not at all 9. Thoughts that you would be better off or of hurting yourself in some way: not at all Total score: 0 Depression Screening Interpretation: Negative Depression Screening Done: Yes 26955 - PHQ-9 Billing: Yes Source: Developed by Drs. Shaquille Hitchcock, Janae Devlin, Avery Cutler and colleagues, with an educational carlos from [employer]. Thrive Questionnaire Date Thrive assessed: 10/14/23 Are you currently unemployed and looking for a job?: Yes AUDIT C Alcohol Use Questionnaire (AUDIT-C) 1. How often do you have a drink containing alcohol?: Never Total Score: 0 Score Reviewed/Action Taken: No LUDY-7 AMB Questionnaire LUDY-7 Date LUDY - 7 assessed: 10/14/23 Source: Developed by Drs. Shaquille Hitchcock, Avery Lewis and colleagues, with an educational carlos from [employer]. Review of Systems Const All systems reviewed & are unremarkable except as noted in HPI and below Physical exam (Primary Care) Vital Signs: Last Vital Signs Pulse 84 07/14/24 11:23 BP 168/88 H 07/14/24 11:23 Pulse Ox 95 07/14/24 11:23 Oxygen Delivery Method Room Air 07/14/24 11:23 BMI result Body Mass Index 40.7 Tobacco/Smoking Status: Tobacco use Status Tobacco use date assessed 10/14/23 07/14/24 11:27 Patient Tobacco Use Status Never used Tobacco 07/14/24 11:27 Tobacco use type Cigarette 07/14/24 11:27 e-Cigarette/Vaping Use Never Used 07/14/24 11:27 PHQ-9: PHQ-9 Score PHQ-9: Total score 0 07/14/24 11:27 Depression Screening Interpretation: Negative Thrive Assessment: Date of Thrive Assessment Date Thrive assessed 10/14/23 07/14/24 11:27 Const General: cooperative, comfortable and no acute distress Nutritional Appearance: obese Orientation/consciousness: patient oriented x3 HENMT Head: Yes normocephalic Chest Chest palpation & inspection: normal inspection of the chest Resp Effort & Inspection: normal respiratory effort and able to speak in complete sentences Auscultation: clear to auscultation bilaterally, no crackles, no rales, no rhonchi and no wheezes Cardio Heart sounds: S1 normal heart sound present and S2 normal heart sound present Neuro General: patient oriented x3 Coding Level of Care Code Est Pt Level 4 (62328) Diagnoses Atypical chest pain R07.89 Time Spent (min) 20 Comment Spent reviewing Hospital notes Assessment & Plan Assessment & Plan (1) Atypical chest pain: Code(s): R07.89 - Other chest pain Plan: CP more consistent with muscular vs Cardiac Currently no pain.
== END 2024-07-14 11:58 | disposition home or self-care (01) ==
PROVIDERS: PCP Internal Medicine; Visit Provider Nurse Practitioner Family
DX: R07.89 Other chest pain (principal)

== ENCOUNTER → 2024-07-14 11:22 | Outpatient (BNVA) | payer OTHER, SELFPAY | PROVIDERS: PCP Internal Medicine; Visit Provider Nurse Practitioner Family | DX: R07.89 Other chest pain (principal) | CPT/HCPCS: 96127; 99212 ==

== ENCOUNTER 2024-07-21 09:46 | Outpatient (AMB) | payer OTHER, SELFPAY ==
--- NOTE | 2024-07-21 09:53 | A.OFFVIS_ITS ---
Vital Signs 07/21/24 09:55 Height 5 ft 7 in Weight 266 lb 12.149 oz BMI 41.8 BP 137/67 Blood Pressure Location Lt radial Position Sitting Pulse 60 Intake Visit Reasons: Abdominal pain Intake Note: Bonnie presents in the office as a follow up abdominal pains. CC: pins and needle like feeling all over her body. Her feet itch a lot. She states that today she is having diarrhea from the moment she woke up and pains in the right flank area. Veneer Drier Feeder Required: No Allergies Penicillins Allergy (Severe, Verified 07/21/24 09:56) swelling adhesive tape [ADHESIVE TAPE] Allergy (Intermediate, Verified 07/21/24 09:56) RASH amoxicillin [AMOXICILLIN] Allergy (Intermediate, Verified 07/21/24 09:56) RASH,SWELLING ibuprofen [From Motrin] Allergy (Intermediate, Verified 07/21/24 09:56) Hypertension latex Allergy (Intermediate, Verified 07/21/24 09:56) Rash HPI HPI Abdominal pain: Details: 59-year-old female with pertinent history of essential hypertension, mixed hyperlipidemia, mood disorder, insulin-dependent diabetes mellitus, hypothyroidism, gastroesophageal reflux disease, congestive heart failure with preserved ejection fraction, MARY on CPAP, asthma not on home oxygen who I am seeing for f/u for abdominal pain, intractable vomiting and diarrhea. RECAP: I saw the patient as an in patient 09/25 Patient had prolonged admission with abdominal pain. she had EGD and colonoscopy with colonic dysmotility, internal hemorrhoids and cecal polyp noted. she also had stool pos for c diff PCR but neg for toxin. she was d/c'ed on vancomycin and mesalamine. she had worsening nausea, non bloody emesis and diffuse abdominal pain, crampy and 10/10 in severity without any relieving factors, worse with food. labs with worsening WCC and lactate elevation. Her diet was gradually advanced with good tolerance and her pain improved. She completed PO vancomycin as recommended from prior admission, when she was found to have positive C.difficile gene but negative toxin ongoing abn labs with persistent raised CRP, INTERIM: she has ongoing issues with joint pains, numbness and burning in the feet with swelling and pinching sensation chronic right sided mid abdo pain and cramps abn stools, on and off constipation and diarrhea but more diarrhea she has joint pains, in hands, feet, shoulders, improves as day progresses she has morning stiffness she has itching on skin , bruises on her skkin v easily strong Fh of lupus also has headaches, blurred vision RF and CARLOS neg from 2019 I gave a trial of colchicine but she has no benefit after using for about 4 weeks CXR with raised gal dipahragm, but no hilar fullness Hand XR with osteoarthritic changes EXAM: GENERAL: The patient is relaxed VITAL SIGNS:see workflow HEENT: Nonicteric sclerae, PERRLA, EOMI. Oropharynx clear. Moist mucous membranes. Conjunctivae appear well perfused. No thyroid mass. CHEST: Chest wall is nontender. HEART: Regular rate and rhythm without murmurs. LUNGS: Clear to auscultation bilaterally. ABDOMEN: Soft, positive bowel sounds, nontender, no organomegaly.no flank tenderness SKIN: No rash, no excessive bruising, petechiae, or purpura. NEUROLOGIC: Cranial nerves II-XII intact without motor/sensory deficit.--tremor right arm, reduced sensation, unsteady gait Psych: normal affect A/P: 1/ abdominal pain, polyarthropathy, strong Fh of Lupus she may have crohsn or other CTD--had C diff but f/u testing was negative PLAN: 1/ Capsule endo 2/ rheum referral 3/ check vitamins and fecal lactoferrin 4/ might need neuro referral as well, MRI brain [facility] Medical History Essential hypertension Left shoulder pain Type 2 diabetes mellitus Hyperparathyroidism Erosive esophagitis Hypertension Acute diarrhea Pre-op examination Cervical radiculopathy Rash of foot Kiera albicans infection Cervicalgia Environmental allergies Hospital discharge follow-up MARY on CPAP Elevated red blood cell count Screening for hyperlipidemia Chronic pain syndrome Lumbar pain Encounter for annual routine gynecological examination Multiple air fluid levels of small intestine determined by X-ray Abdominal bloating Hypothyroid Sleep apnea Abdominal cramping Edema Anxiety with depression Chronic pain (Unknown) Gastroparesis Left knee pain Hypothyroidism Bilateral shoulder pain Hyperlipidemia LDL goal <70 Degeneration, intervertebral disc, cervical Spondylosis of cervical spine at multiple levels without myelopathy Sleep apnea Renal calculi Incontinence Goiter Disc degeneration, lumbar Spondylosis of lumbar region without myelopathy or radiculopathy Arthropathy of facet joint Insomnia LUDY (generalized anxiety disorder) Moderately severe recurrent major depression Chronic pain syndrome Morbid (severe) obesity due to excess calories Fibromyalgia Small bowel motility disorder Chronic idiopathic constipation Asthma Surgical History History of knee replacement procedure of right knee History of hernia surgery Hx of colonoscopy History of esophagogastroduodenoscopy (EGD) History of cholecystectomy Delivery by section History of hysterectomy Family History Father Past heart attack Anxiety Mother MOF (multiple organ failure) Brother HIV (human immunodeficiency virus infection) Sister Ovarian cancer Lupus Bone cancer Uterine cancer Tumor Daughter Guillain-[place] Sister Lupus History of open heart surgery Family/Other Depression FH: mental illness Maternal Aunt Breast cancer Maternal Aunt Tumor Social History Household Members: None Household Members Other:: Housing: Apartment Are you a primary care management assistant to a significant other at home: No Do you presently have visiting nurse or other home services: Yes Alcohol intake: never Patient Tobacco Use Status: Never used Tobacco Tobacco use type: Cigarette e-Cigarette/Vaping Use: Never Used Second Hand Smoke Exposure: Yes Advance Directives Date on File: 12/08/21 service: No Current occupational status: unemployed and disabled Cognitive needs: Yes Hearing needs: No Vision needs: No Physical Exam Vital Signs: Last Vital Signs Pulse 60 07/21/24 09:55 BP 137/67 07/21/24 09:55 BMI result Body Mass Index 41.8 Assessment & Plan Assessment & Plan (1) Polyarthropathy: Code(s): M13.0 - Polyarthritis, unspecified Category: Medical Plan: see above (2) Malnutrition: Code(s): E46 - Unspecified protein-calorie malnutrition Category: Medical Plan: see above (3) Polyarthropathy: Code(s): M13.0 - Polyarthritis, unspecified Category: Medical Plan: see above Orders: Orders Vitamin A Today E46 - Unspecified protein-calorie malnutrition, M13.0 - Polyarthritis, unspecified Vitamin B12 and Folate Today E46 - Unspecified protein-calorie malnutrition, M13.0 - Polyarthritis, unspecified Vitamin B3 (Niacin) Today E46 - Unspecified protein-calorie malnutrition, M13.0 - Polyarthritis, unspecified Vitamin B5 (Pantothenic Acid) Today E46 - Unspecified protein-calorie malnutrition, M13.0 - Polyarthritis, unspecified Vitamin D 25-OH Total Today E46 - Unspecified protein-calorie malnutrition, M13.0 - Polyarthritis, unspecified Vitamin E Today E46 - Unspecified protein-calorie malnutrition, M13.0 - Polyarthritis, unspecified Zinc Today E46 - Unspecified protein-calorie malnutrition, M13.0 - Polyarthritis, unspecified Metanephrines, 24hr Urine Today E46 - Unspecified protein-calorie malnutrition, M13.0 - Polyarthritis, unspecified Hepatitis A,B,C Profile Today E46 - Unspecified protein-calorie malnutrition, M13.0 - Polyarthritis, unspecified CDiff Gene PCR Today E46 - Unspecified protein-calorie malnutrition, M13.0 - Polyarthritis, unspecified, R19.7 - Diarrhea, unspecified Immunoglobulins,IgG IgA IgM Today E46 - Unspecified protein-calorie malnutrition, M13.0 - Polyarthritis, unspecified HU Antibody Today E46 - Unspecified protein-calorie malnutrition, M13.0 - Polyarthritis, unspecified C Reactive Protein Today E46 - Unspecified protein-calorie malnutrition, M13.0 - Polyarthritis, unspecified Vitamin B1 Today E46 - Unspecified protein-calorie malnutrition, M13.0 - Polyarthritis, unspecified Vitamin B6 Today E46 - Unspecified protein-calorie malnutrition, M13.0 - Polyarthritis, unspecified Vitamin C Today E46 - Unspecified protein-calorie malnutrition, M13.0 - Polyarthritis, unspecified Vitamin K1 Today E46 - Unspecified protein-calorie malnutrition, M13.0 - Polyarthritis, unspecified Ferritin Today E46 - Unspecified protein-calorie malnutrition, M13.0 - Polyarthritis, unspecified Magnesium Today E46 - Unspecified protein-calorie malnutrition, M13.0 - Polyarthritis, unspecified Creatine Kinase Total Today E46 - Unspecified protein-calorie malnutrition, M13.0 - Polyarthritis, unspecified Lactoferrin, Fecal, Quant. Today E46 - Unspecified protein-calorie malnutri tion, K51.50 - Left sided colitis without complications, M13.0 - Polyarthritis, unspecified Metanephrines, Plasma Today E46 - Unspecified protein-calorie malnutrition, M13.0 - Polyarthritis, unspecified N-Methylhistamine 24Hr Today E46 - Unspecified protein-calorie malnutrition, M13.0 - Polyarthritis, unspecified Aldolase Today E46 - Unspecified protein-calorie malnutrition, M13.0 - Polyarthritis, unspecified Lyme IgG/IgM w/reflex to WB Today E46 - Unspecified protein-calorie malnutritio n, M13.0 - Polyarthritis, unspecified Histone Antibody Today E46 - Unspecified protein-calorie malnutrition, M13.0 - Polyarthritis, unspecified Cortisol, Free Today E46 - Unspecified protein-calorie malnutrition, M13.0 - Polyarthritis, unspecified Referrals Rheumatology Referral M13.0 - Polyarthritis, unspecified Medications: New sodium,potassium,mag sulfates 17.5-3.13-1.6 gram (Suprep Bowel Prep Kit) DILUTE; drink full amount early evening before AND next morning at least 2 hr before procedure; follow w 960 mL water PO 354 mL 0RF Coding Level of Care Code Est Pt Level 4 (39810) Diagnoses Polyarthropathy M13.0 Malnutrition E46
[2024-07-21 09:55] VITALS: BP 137/67; PULSE 60; BMI 41.8
== END 2024-07-21 11:00 | disposition home or self-care (01) ==
PROVIDERS: PCP Internal Medicine; Visit Provider Internal Medicine Gastroenterology
DX: M13.0 Polyarthritis, unspecified (principal); E46 Unspecified protein-calorie malnutrition
CPT/HCPCS: 99214

== ENCOUNTER → 2024-07-21 09:46 | Outpatient (BNVA) | payer OTHER, SELFPAY | PROVIDERS: PCP Internal Medicine; Visit Provider Internal Medicine Gastroenterology | DX: M13.0 Polyarthritis, unspecified (principal); E46 Unspecified protein-calorie malnutrition | CPT/HCPCS: 99212 ==

== ENCOUNTER 2024-08-08 10:49 | Outpatient (AMB) | payer OTHER, SELFPAY ==
[2024-08-08 10:58] VITALS: BP 148/82; PULSE 62; O2SAT 98; BMI 42.4
--- NOTE | 2024-08-08 10:58 | MHC.OFFVIS ---
Vital Signs 08/08/24 10:58 Height 5 ft 7 in Weight 271 lb BMI 42.4 BP 148/82 H Blood Pressure Location Lt brachial Position Sitting Pulse 62 Pulse Source Doppler Pulse Oximetry (%) 98 Oxygen Delivery Method Room Air Intake Visit Reasons: Asthma Allergies Penicillins Allergy (Severe, Verified 08/08/24 11:05) swelling adhesive tape [ADHESIVE TAPE] Allergy (Intermediate, Verified 08/08/24 11:05) RASH amoxicillin [AMOXICILLIN] Allergy (Intermediate, Verified 08/08/24 11:05) RASH,SWELLING ibuprofen [From Motrin] Allergy (Intermediate, Verified 08/08/24 11:05) Hypertension latex Allergy (Intermediate, Verified 08/08/24 11:05) Rash HPI HPI Asthma: Details: 59-year-old lady, nonsmoker but with exposure to secondhand smoke, with underlying history of elevated right-sided diaphragm, now followed for asthma, MARY, and dyspnea on exertion. She continues to use Advair 230 and albuterol MDI with reasonable control of her asthma symptoms. She denies recent exacerbations. [facility] Medical History Essential hypertension Left shoulder pain Type 2 diabetes mellitus Hyperparathyroidism Erosive esophagitis Hypertension Acute diarrhea Pre-op examination Cervical radiculopathy Rash of foot Kiera albicans infection Cervicalgia Environmental allergies Hospital discharge follow-up MARY on CPAP Elevated red blood cell count Screening for hyperlipidemia Chronic pain syndrome Lumbar pain Encounter for annual routine gynecological examination Multiple air fluid levels of small intestine determined by X-ray Abdominal bloating Hypothyroid Sleep apnea Abdominal cramping Edema Anxiety with depression Chronic pain (Unknown) Gastroparesis Left knee pain Hypothyroidism Bilateral shoulder pain Hyperlipidemia LDL goal <70 Degeneration, intervertebral disc, cervical Spondylosis of cervical spine at multiple levels without myelopathy Sleep apnea Renal calculi Incontinence Goiter Disc degeneration, lumbar Spondylosis of lumbar region without myelopathy or radiculopathy Arthropathy of facet joint Insomnia LUDY (generalized anxiety disorder) Moderately severe recurrent major depression Chronic pain syndrome Morbid (severe) obesity due to excess calories Fibromyalgia Small bowel motility disorder Chronic idiopathic constipation Asthma Surgical History History of knee replacement procedure of right knee History of hernia surgery Hx of colonoscopy History of esophagogastroduodenoscopy (EGD) History of cholecystectomy Delivery by section History of hysterectomy Family History Father Past heart attack Anxiety Mother MOF (multiple organ failure) Brother HIV (human immunodeficiency virus infection) Sister Ovarian cancer Lupus Bone cancer Uterine cancer Tumor Daughter Guillain-[place] Sister Lupus History of open heart surgery Family/Other Depression FH: mental illness Maternal Aunt Breast cancer Maternal Aunt Tumor Social History Household Members: None Household Members Other:: Housing: Apartment Are you a primary post anesthesia care unit nurse to a significant other at home: No Do you presently have visiting nurse or other home services: Yes Alcohol intake: never Patient Tobacco Use Status: Never used Tobacco Tobacco use type: Cigarette e-Cigarette/Vaping Use: Never Used Second Hand Smoke Exposure: Yes Advance Directives Date on File: 12/08/21 service: No Current occupational status: unemployed and disabled Cognitive needs: Yes Hearing needs: No Vision needs: No Review of Systems Const Denies daytime sleepiness, Denies excessive sweating, Denies fatigue, Denies fever(s), Denies lethargy, Denies malaise, Denies night sweats, Denies snoring and Denies weight loss Eyes Denies blurry vision and Denies itchy eyes ENT Denies nasal congestion, Denies post nasal drip, Denies sinus pain, Denies sinus pressure and Denies other ( Thrush) Card Denies chest pain, Denies pedal edema, Denies dyspnea, Denies orthopnea and Denies paroxysmal nocturnal dyspnea Resp Denies cough, Denies hemoptysis, Denies excessive phlegm production, Denies dyspnea, Denies snoring and Denies wheezing GI Denies abdominal pain and Denies heartburn Musc Denies myalgias, Denies arthralgias and Denies joint swelling Skin/Breast Denies rash Neuro Denies memory loss and Denies seizure-like activity Psych Denies abnormal sleep pattern, Denies anxiety and Denies memory loss Endo Denies excessive sweating, Denies fatigue and Denies heat intolerance Dalton/Lymph Denies easy bruising Aller/Immun Denies itchy eyes, Denies seasonal rhinorrhea and Denies wheezing Physical Exam Vital Signs: Last Vital Signs Pulse 62 08/08/24 10:58 BP 148/82 H 08/08/24 10:58 Pulse Ox 98 08/08/24 10:58 Oxygen Delivery Method Room Air 08/08/24 10:58 BMI result Body Mass Index 42.4 Const General: no acute distress and alert Nutritional Appearance: obese Orientation/consciousness: Other orientation findings ( oriented) HEENT Head: Yes atraumatic Eyes General: appearance normal, both eyes and all related structures Sclerae: sclerae normal EOM: EOMs intact bilaterally Neck Neck: Yes supple Lymphatic: no lymphadenopathy noted Resp Effort & Inspection: normal respiratory effort and no use of accessory muscles Auscultation: clear to auscultation bilaterally Cardio Rate: regular rate Rhythm: regular rhythm Heart sounds: no gallops, no murmurs and no rubs Skin General skin exam: other ( warm) Extrem General: No clubbing, No cyanosis and No edema Assessment & Plan Assessment & Plan (1) Asthma: Code(s): J45.909 - Unspecified asthma, uncomplicated Category: Medical Qualifiers: Asthma severity: moderate Asthma persistence: persistent Asthma complication type: uncomplicated Qualified Code(s): J45.40 - Moderate persistent asthma, uncomplicated Plan: Well controlled on current regimen of Breo and albuterol MDI/nebs. Continue current regimen. (2) MARY (obstructive sleep apnea): Code(s): G47.33 - Obstructive sleep apnea (adult) (pediatric) Category: Medical Plan: Well controlled on current CPAP therapy. Continue CPAP therapy. Coding Level of Care Code Est Pt Level 4 (87441) Diagnoses Moderate persistent asthma without complication J45.40 Asthma severity: moderate Asthma persistence: persistent Asthma complication type: uncomplicated MARY (obstructive sleep apnea) G47.33
== END 2024-08-08 11:21 | disposition home or self-care (01) ==
LOC: HO.HPS 10:50
PROVIDERS: PCP Internal Medicine; Visit Provider Internal Medicine Pulmonary Disease
DX: J45.40 Moderate persistent asthma, uncomplicated (principal); G47.33 Obstructive sleep apnea (adult) (pediatric)
CPT/HCPCS: 99214

== ENCOUNTER → 2024-08-08 10:49 | Outpatient (BNVA) | payer OTHER, SELFPAY | PROVIDERS: PCP Internal Medicine; Visit Provider Internal Medicine Pulmonary Disease | DX: J45.40 Moderate persistent asthma, uncomplicated (principal); G47.33 Obstructive sleep apnea (adult) (pediatric); Z99.89 Dependence on other enabling machines and devices | CPT/HCPCS: 99212 ==

== ENCOUNTER 2024-08-11 12:57 | Outpatient (AMB) | payer OTHER, SELFPAY ==
[2024-08-11 12:58] VITALS: BP 144/86; PULSE 76; BMI 43.1
--- NOTE | 2024-08-11 12:58 | A.OFFVIS_ITS ---
Vital Signs 08/11/24 12:58 Height 5 ft 7 in Weight 274 lb 14.663 oz BMI 43.1 BP 144/86 H Blood Pressure Location Lt brachial Position Sitting Pulse 76 Pulse Source Pulse Oximeter Intake Visit Reasons: DM/LVM Intake Note: Patient presents today for D2MT follow up visit. Last Diabetic Eye exam: 2021 Last Podiatry Visit: Doesn't have one Random Glucose: 85 mg/dl HgA1c: 7.2% Superintendent Compressor Stations Required: No Accompanied by: Self / Same As Patient Allergies Penicillins Allergy (Severe, Verified 08/11/24 13:05) swelling adhesive tape [ADHESIVE TAPE] Allergy (Intermediate, Verified 08/11/24 13:05) RASH amoxicillin [AMOXICILLIN] Allergy (Intermediate, Verified 08/11/24 13:05) RASH,SWELLING ibuprofen [From Motrin] Allergy (Intermediate, Verified 08/11/24 13:05) Hypertension latex Allergy (Intermediate, Verified 08/11/24 13:05) Rash Medication List - Last Reconciled 08/11/24 by Monet Plata PA-C acetaminophen ER 650 mg PO Q8H PRN 30 days albuterol sulfate 90 mcg/actuation (Ventolin HFA) 1 puff PO Q4H PRN 30 days albuterol sulfate 2.5 mg (3 mL) inhalation Q6H PRN 30 days atorvastatin 10 mg PO BEDTIME blood pressure monitor Use as needed blood pressure test kit-large As directed blood sugar diagnostic (FreeStyle Test strips) Use 1 test strip once a day [BP monitor As directed] bumetanide 1 mg PO BID bupropion HCl XL 150 mg PO DAILY cholecalciferol (vitamin D3) 50 mcg PO DAILY 90 days clonidine HCl 1 mg (10 x 0.1 mg) PO TID 30 days colchicine 0.6 mg PO BID CPAP (CPAP Machine/Device) As directed dicyclomine 20 mg (2 x 10 mg) PO QID PRN 30 days diphenoxylate-atropine 2.5-0.025 mg (Lomotil) 1 tab PO BID PRN dulaglutide (Trulicity) 1.5 mg (0.5 mL) subcut QWEEK ear thermometer As directed ferrous sulfate 325 mg PO DAILY 90 days fluticasone furoate-vilanterol 200-25 mcg/dose (Breo Ellipta) 1 inh inhalation DAILY 30 days gabapentin 300 mg PO TID glucose (Dex4 Glucose) 16 grams (4 x 4 gram) PO Q15M PRN hydrocortisone 2.5% 1 appl CA BID-QID PRN 2 weeks hydroxyzine HCl 25 mg PO BEDTIME PRN 30 days hydroxyzine HCl mg PO insulin glargine-yfgn units subcut insulin lispro 5 units (0.05 mL) subcut TID 30 days levothyroxine 112 mcg PO DAILY@0600 lorazepam 1 mg PO DAILY PRN meclizine 25 mg PO DAILY PRN 90 days methocarbamol 750 mg PO DAILY metoclopramide HCl 10 mg PO QID metoprolol succinate ER 50 mg PO DAILY 90 days nebulizers As directed pantoprazole 40 mg PO DAILY paroxetine HCl 20 mg PO DAILY paroxetine HCl 30 mg PO DAILY pregabalin 100 mg PO BID 30 days [recliner As directed] sertraline 50 mg PO DAILY sodium,potassium,mag sulfates 17.5-3.13-1.6 gram (Suprep Bowel Prep Kit) DILUTE; drink full amount early evening before AND next morning at least 2 hr before procedure; follow w 960 mL water PO sumatriptan succinate (Imitrex) 50 mg PO .QD PRN tizanidine 2 mg PO BID 14 days trazodone 150 mg PO BEDTIME PRN triamcinolone acetonide 0.5% 1 appl topical DAILY 2 weeks zolpidem 5 mg PO BEDTIME PRN HPI HPI DM/LVM: Details: Patient is a 59-year-old female with a significant past medical history of hypertension, hyperlipidemia, type 2 diabetes, gastroparesis, hypothyroidism and obstructive sleep apnea presenting today for her diabetes. Endo: Her A1c today is 7.2. She is currently on Lantus 15 units at bedtime, lispro 5 units with supper, and Trulicity 1.5 mg every week. Tolerates this well. CGM- 12% hypergylcemia, 88% in range, 0 hypoglycemic events. Her GMI my is 6.6%. States hypoglycemia is rare. CV: Blood pressure today is 144/86. She is on metoprolol 50 mg daily. Choles terol is managed with atorvastatin 10 mg. She does not believe the pains are related to when she start a cholesterol medication. She states that her blood pressure is higher today because she left her cell phone on the bus. When she got dropped off by the [employer] [facility] bus she states that she left it on the seat and she is very stressed and cannot think about anything besides this. She does have a history of fibromyalgia. [facility] Medical History Essential hypertension Left shoulder pain Type 2 diabetes mellitus Hyperparathyroidism Erosive esophagitis Hypertension Acute diarrhea Pre-op examination Cervical radiculopathy Rash of foot Kiera albicans infection Cervicalgia Environmental allergies Hospital discharge follow-up MARY on CPAP Elevated red blood cell count Screening for hyperlipidemia Chronic pain syndrome Lumbar pain Encounter for annual routine gynecological examination Multiple air fluid levels of small intestine determined by X-ray Abdominal bloating Hypothyroid Sleep apnea Abdominal cramping Edema Anxiety with depression Chronic pain (Unknown) Gastroparesis Left knee pain Hypothyroidism Bilateral shoulder pain Hyperlipidemia LDL goal <70 Degeneration, intervertebral disc, cervical Spondylosis of cervical spine at multiple levels without myelopathy Sleep apnea Renal calculi Incontinence Goiter Disc degeneration, lumbar Spondylosis of lumbar region without myelopathy or radiculopathy Arthropathy of facet joint Insomnia LUDY (generalized anxiety disorder) Moderately severe recurrent major depression Chronic pain syndrome Morbid (severe) obesity due to excess calories Fibromyalgia Small bowel motility disorder Chronic idiopathic constipation Asthma Surgical History History of knee replacement procedure of right knee History of hernia surgery Hx of colonoscopy History of esophagogastroduodenoscopy (EGD) History of cholecystectomy Delivery by section History of hysterectomy Family History Father Past heart attack Anxiety Mother MOF (multiple organ failure) Brother HIV (human immunodeficiency virus infection) Sister Ovarian cancer Lupus Bone cancer Uterine cancer Tumor Daughter Guillain-Mayflower Sister Lupus History of open heart surgery Family/Other Depression FH: mental illness Maternal Aunt Breast cancer Maternal Aunt Tumor Social History Household Members: None Household Members Other:: Housing: Apartment Are you a primary rn palliative care to a significant other at home: No Do you presently have visiting nurse or other home services: Yes Alcohol intake: never Patient Tobacco Use Status: Never used Tobacco Tobacco use type: Cigarette e-Cigarette/Vaping Use: Never Used Second Hand Smoke Exposure: Yes Advance Directives Date on File: 12/08/21 service: No Current occupational status: unemployed and disabled Cognitive needs: Yes Hearing needs: No Vision needs: No Physical Exam Vital Signs: Last Vital Signs Pulse 76 08/11/24 12:58 BP 144/86 H 08/11/24 12:58 BMI result Body Mass Index 43.1 Const Orientation/consciousness: patient oriented x3 Neck Neck: Yes no lymphadenopathy Thyroid: Thyroid normal Carotids: no bruits Resp Auscultation: clear to auscultation bilaterally Cardio Rate: regular rate Rhythm: regular rhythm Heart sounds: S1 normal heart sound present and S2 normal heart sound present Peripheral pulses: dorsalis pedis present Neuro General: patient oriented x3, gait normal and no focal motor deficits Extrem Other: Monofilament sensation intact bilaterally. Vibratory sensation intact bilaterally. Skin is white and flaky between the toes.. General: Yes normal to inspection Results AMB Hemoglobin A1c AMB Hemoglobin A1c 7.2 % Last Edit by KAN Arenas on 08/11/24 13:18 Results Reviewed Results Reviewed: Laboratory Last Values Glucose (Clinic) 85 mg/dL (60-115) 08/11/24 13:07 Laboratory Tests 02/17/24 06/23/24 06/27/24 11:35 13:01 13:45 Sodium 137 Potassium 4.2 Chloride 107 Carbon Dioxide 23 Anion Gap 11 L BUN 17 H Creatinine 0.75 Estim Creat Clear Calc 87.7 Estimated GFR > 60 Glucose (Clinic) B-Natriuretic Peptide < 10 Triglycerides 99 Cholesterol 141 LDL Cholesterol, Calc 74 HDL Cholesterol 48 Urine Microalbumin 44.0 Microalb/Creat Ratio 14.3 08/11/24 13:07 Sodium Potassium Chloride Carbon Dioxide Anion Gap BUN Creatinine Estim Creat Clear Calc Estimated GFR Glucose (Clinic) 85 B-Natriuretic Peptide Triglycerides Cholesterol LDL Cholesterol, Calc HDL Cholesterol Urine Microalbumin Microalb/Creat Ratio Assessment & Plan Assessment & Plan (1) Uncontrolled type 2 diabetes mellitus with hyperglycemia, with long-term current use of insulin: Code(s): E11.65 - Type 2 diabetes mellitus with hyperglycemia; Z79.4 - penitentiary (current) use of insulin Category: Medical Plan: Continue current regimen much better glycemic control. We will follow up in 3 months. Sooner if needed. (2) Tinea pedis: Code(s): B35.3 - Tinea pedis Category: Medical Plan: We will start on clotrimazole cream. 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 of insulin Medications: New clotrimazole 1% 1 appl topical BID 4 weeks 45 grams 3RF insulin glargine (Lantus Solostar U-100 Insulin) 15 units (0.15 mL) subcut QAM 15 mL 3RF pen needle, diabetic (BD Rosario 2nd Gen Pen Needle) use 2x daily As directed 100 ea 3RF insulin lispro (Humalog KwikPen (U-100) Insulin) with supper 5 units (0.05 mL) subcut DAILY 15 mL 3RF Refilled dulaglutide (Trulicity) 1.5 mg (0.5 mL) subcut QWEEK 2 mL 6RF Discontinued insulin lispro Discontinued Reason: Doctor's Order 5 units (0.05 mL) subcut TID 30 days 4.5 mL 3RF Coding Level of Care Code Est Pt Level 4 (30665) Diagnoses Uncontrolled type 2 diabetes mellitus with hyperglycemia, with long-term current use of insulin E11.65; Z79.4 Tinea pedis B35.3
[2024-08-11 13:12] LABS: Glucose, Whole Blood 85 mg/dL (60-115)
== END 2024-08-11 13:47 | disposition home or self-care (01) ==
PROVIDERS: PCP Internal Medicine; Visit Provider Physician Assistant
DX: E11.65 Type 2 diabetes mellitus with hyperglycemia (principal); Z79.4 Long term (current) use of insulin; B35.3 Tinea pedis; Z13.9 Encounter for screening, unspecified

== ENCOUNTER → 2024-08-11 12:57 | Outpatient (BNVA) | payer OTHER, SELFPAY | PROVIDERS: PCP Internal Medicine; Visit Provider Physician Assistant | DX: E11.65 Type 2 diabetes mellitus with hyperglycemia (principal); Z79.4 Long term (current) use of insulin; B35.3 Tinea pedis | CPT/HCPCS: 82947; 83036; 99212 ==

== ENCOUNTER 2024-08-17 15:48 | Emergency (ER) | payer OTHER, SELFPAY ==
--- NOTE | ~2024-08-17 | US_ITS ---
EXAMINATION: US RETROPERITONEAL LIMITED (RENAL ONLY) CLINICAL INFORMATION: Bilateral flank pain. COMPARISON: CT abdomen pelvis dated March 21, 2024. TECHNIQUE: Real-time ultrasound of both kidneys was performed. FINDINGS: RIGHT KIDNEY: 10.4 x 4.7 x 4.9 cm (SAG x AP x TRV). The kidney is normal in size, contour, and echogenicity. Renal cortical thickness is normal. No calculi or focal parenchymal lesions. No hydronephrosis. LEFT KIDNEY: 11 x 4.5 x 4.8 cm (SAG x AP x TRV). The kidney is normal in size, contour, and echogenicity. Renal cortical thickness is normal. No calculi or focal parenchymal lesions. No hydronephrosis. US/US renal BI IMPRESSION: Normal renal ultrasound. Electronically signed by: Hiram Coreas DO 08/17/2024 05:07 PM EST
--- NOTE | ~2024-08-17 | CT_ITS ---
EXAMINATION: CT ABDOMEN AND PELVIS WITH CONTRAST CLINICAL INFORMATION: Right lower quadrant pain COMPARISON: CT abdomen and pelvis 03/21/2024 TECHNIQUE: Multidetector volumetric imaging was performed from the superior aspect of the liver through the pubic symphysis with intravenous contrast. A total of 85 mL of 350 was utilized for the study. Sagittal and coronal reformatted images were obtained on the technologist's workstation. This CT examination was performed using dose optimization techniques as appropriate, variously including the following: *Automated exposure control *Adjustment of mA and/or kV according to patient size (this includes techniques or standardized protocols for targeted exams where dose is matched to indication/reason for exam; i.e. extremities or head) *Use of iterative reconstruction technique DLP: 1084 mGy-cm FINDINGS: LUNG BASES: There is marked elevation of the right hemidiaphragm, similar to prior. Right basilar atelectasis is present. The visualized lung bases are unremarkable. LIVER, GALLBLADDER, AND BILIARY TREE: The liver is normal in size, shape, and attenuation. No focal hepatic lesion or biliary ductal dilatation is present. The gallbladder is surgically absent PANCREAS: Unremarkable. SPLEEN: Unremarkable. ADRENAL GLANDS: Unremarkable. KIDNEYS AND URETERS: The kidneys are normal in size, shape, and attenuation. No hydronephrosis, hydroureter, or calculi seen. No perinephric stranding. BLADDER: Unremarkable. GASTROINTESTINAL TRACT: The small and large bowel are unremarkable. The appendix is unremarkable. ABDOMINAL WALL: No significant hernia is appreciated. There is mild diastases of the rectus muscles in the epigastrium. LYMPH NODES: No retroperitoneal lymphadenopathy. VASCULAR: Unremarkable. PELVIC VISCERA: Unremarkable. OSSEOUS STRUCTURES: Unremarkable. Mild degenerative changes are present. CT/CT abdomen pelvis w IV con IMPRESSION: 1. A cause for the patient's right lower quadrant pain has not been found. The appendix is normal. 2. Incidental note made of marked elevation of the right hemidiaphragm, cholecystectomy and mild degenerative changes in the spine. Fleischner guidelines were followed. Electronically signed by: Alex King MD 08/18/2024 12:14 AM [facility]
--- NOTE | ~2024-08-17 | XR_ITS ---
EXAMINATION: XR CHEST CLINICAL INFORMATION: Chest pain and congestion. COMPARISON: Chest radiograph dated 06/27/2024. TECHNIQUE: Frontal view of the chest was obtained. FINDINGS: The heart is normal in size. The lungs are clear. No pleural effusion or pneumothorax. The right hemidiaphragm is elevated. No acute osseous abnormality. XR/XR chest 1V IMPRESSION: Similar elevation of the right hemidiaphragm. No acute cardiopulmonary disease. Electronically signed by: Hiram Coreas DO 08/17/2024 05:05 PM [facility]
--- NOTE | 2024-08-17 15:50 | ECG_ITS ---
Test Reason : CHEST PAIN Blood Pressure : / mmHG Vent. Rate : 067 BPM Atrial Rate : 067 BPM P-R Int : 164 ms QRS Dur : 080 ms QT Int : 390 ms P-R-T Axes : 053 -03 013 degrees QTc Int : 412 ms Normal sinus rhythm Normal ECG When compared with ECG of 27-JUN-2024 12:03, No significant change was found Referred By: Chichi Sommers Electronically Signed By:Antonio Espinosa
[2024-08-17 16:03] VITALS: BP 121/76; PULSE 71; RESP 20; TEMP 37.2; O2SAT 97; BMI 41.8
--- NOTE | 2024-08-17 16:03 | ED_ITS ---
HPI - URI/Sore Throat General Chief Complaint: General Medical Stated Complaint: chest pain,lower back pain Time Seen by Provider: 08/17/24 22:48 Source: patient, RN notes reviewed and old records reviewed Mode of arrival: ambulatory Limitations: no limitations History of Present Illness ED Provider: Ayaz HPI Narrative: 59-year-old female with a past medical history significant for obesity, diabetes, internal hemorrhoids, hypertension, vertigo, GERD sleep apnea, pulmonary edema presents for evaluation of multiple complaints. Patient reports lower back pain, chest pain with coughing, congestion, headache and abdominal pain. She reports that her symptoms started 2 days ago. She reports that she 1st started with the chest pain and cough. Decongestant, abdominal pain and flank pain started the following day Her pain is 8/10 She has not had any documented fevers but does endorse chills. Reports previous section x2 as well as a hernia repair but no other abdominal surgeries No other complaints or concerns at this time Related Data Home Medications ?Medication ?Instructions ?Recorded ?Confirmed trazodone 150 mg tablet 150 mg PO BEDTIME PRN insomnia 08/25/23 08/11/24 lorazepam 1 mg tablet 1 mg PO DAILY PRN ANXIETY 09/11/23 08/11/24 zolpidem 5 mg tablet 5 mg PO BEDTIME PRN 02/14/24 08/11/24 CPAP (CPAP Machine/Device) 03/01/24 08/11/24 nebulizers 03/01/24 08/11/24 pantoprazole 40 mg tablet,delayed 40 mg PO DAILY 03/01/24 08/11/24 release bupropion HCl 150 mg 24 hr tablet, 150 mg PO DAILY 07/21/24 08/11/24 extended release gabapentin 300 mg capsule 300 mg PO TID 07/21/24 08/11/24 hydroxyzine HCl 50 mg tablet mg PO 07/21/24 08/11/24 methocarbamol 750 mg tablet 750 mg PO DAILY 07/21/24 08/11/24 paroxetine HCl 20 mg tablet 20 mg PO DAILY 07/21/24 08/11/24 paroxetine HCl 30 mg tablet 30 mg PO DAILY 07/21/24 08/11/24 sertraline 50 mg tablet 50 mg PO DAILY 07/21/24 08/11/24 Previous Rx's ?Medication ?Instructions ?Recorded dicyclomine 10 mg capsule 20 mg (2 x 10 mg) PO QID PRN 10/14/23 abdominal pain 30 days #120 caps albuterol sulfate 90 mcg/actuation 1 puff PO Q4H PRN for wheezing 30 12/04/23 aerosol inhaler (Ventolin HFA) days #54 ea acetaminophen 650 mg 650 mg PO Q8H PRN arthritis 30 01/31/24 tablet,extended release days #90 tabs bumetanide 1 mg tablet 1 mg PO BID #30 tabs 03/01/24 meclizine 25 mg tablet 25 mg PO DAILY PRN dizziness 90 03/15/24 days #90 tabs diphenoxylate-atropine 2.5 1 tab PO BID PRN diarrhea #14 tabs 05/05/24 mg-0.025 mg tablet (Lomotil) glucose 4 gram chewable tablet 16 g (4 x 4 gram) PO Q15M PRN 05/12/24 (Dex4 Glucose) hypoglycemia #100 tabs hydrocortisone 2.5 % topical cream 1 appl ND BID-QID PRN hemorrhoids 05/27/24 with perineal applicator 2 weeks #30 grams tizanidine 2 mg tablet 2 mg PO BID muscle spasticity 14 05/30/24 days #28 tabs clonidine HCl 0.1 mg tablet 1 mg (10 x 0.1 mg) PO TID 30 days 06/26/24 #90 tabs sumatriptan succinate 50 mg tablet 50 mg PO .QD PRN migraine headache 06/28/24 (Imitrex) #14 tabs colchicine 0.6 mg tablet 0.6 mg PO BID #20 tabs 06/30/24 ear thermometer #6 ea 06/30/24 metoclopramide HCl 10 mg tablet 10 mg PO QID #120 tabs 06/30/24 BP monitor #1 ea 07/12/24 metoprolol succinate 50 mg 50 mg PO DAILY 90 days #90 tabs 07/12/24 tablet,extended release 24 hr blood pressure monitor #1 ea 07/13/24 cholecalciferol (vitamin D3) 50 50 mcg PO DAILY 90 days #90 caps 07/15/24 mcg (2,000 unit) capsule albuterol sulfate 2.5 mg/3 mL 2.5 mg (3 mL) inhalation Q6H PRN 07/20/24 (0.083 %) solution for nebulization shortness of breath or wheezing 30 days #180 mL pregabalin 100 mg capsule 100 mg PO BID 30 days #60 caps 07/25/24 triamcinolone acetonide 0.5 % 1 appl topical DAILY 2 weeks #15 07/26/24 topical cream grams atorvastatin 10 mg tablet 10 mg PO BEDTIME #90 tabs 08/06/24 hydroxyzine HCl 25 mg tablet 25 mg PO BEDTIME PRN itching 30 08/06/24 days #30 tabs levothyroxine 112 mcg tablet 112 mcg PO DAILY@0600 #90 tabs 08/06/24 blood pressure test kit-large #1 ea 08/11/24 clotrimazole 1 % topical cream 1 appl topical BID 4 weeks #45 08/11/24 grams dulaglutide 1.5 mg/0.5 mL 1.5 mg (0.5 mL) subcut QWEEK #2 mL 08/11/24 subcutaneous pen injector (Trulicity) ferrous sulfate 325 mg (65 mg 325 mg PO DAILY 90 days #90 tabs 08/11/24 iron) tablet insulin glargine 100 unit/mL (3 15 unit (0.15 mL) subcut QAM #15 mL 08/11/24 mL) subcutaneous pen (Lantus Solostar U-100 Insulin) insulin lispro 100 unit/mL 5 unit (0.05 mL) subcut DAILY #15 08/11/24 subcutaneous pen (Humalog KwikPen mL (U-100) Insulin) pen needle, diabetic 32 gauge x #100 ea 08/11/2432 (BD Rosario 2nd Gen Pen Needle) recliner #1 ea 08/11/24 fluticasone furoate 200 1 inh inhalation DAILY 30 days #1 08/14/24 mcg-vilanterol 25 mcg/dose ea inhalation powder (Breo Ellipta) sodium,potassium,mag sulfates 17.5 See Rx Instructions PO .COMPLEX 08/14/24 gram-3.13 gram-1.6 gram oral soln #354 mL (Suprep Bowel Prep Kit) blood sugar diagnostic (FreeStyle #100 ea 08/16/24 Test strips) cefuroxime axetil 250 mg tablet 250 mg PO BID #10 tabs 08/18/24 Allergies Allergy/AdvReac Type Severity Reaction Status Date / Time Penicillins Allergy Severe swelling Verified 08/17/24 16:04 adhesive tape [ADHESIVE TAPE] Allergy Intermediate RASH Verified 08/17/24 16:04 amoxicillin [AMOXICILLIN] Allergy Intermediate RASH,SWELLI Verified 08/17/24 16:04 NG ibuprofen [From Motrin] Allergy Intermediate Hypertensio Verified 08/17/24 16:04 n latex Allergy Intermediate Rash Verified 08/17/24 16:04 Review of Systems 2 Constitutional: Constitutional: Denies body ache(s), Reports chills, Denies fever(s), Denies frequent falls and Reports headache(s) Eyes: Eyes: Denies blurry vision ENT: Denies vertigo, Denies dizziness and Reports headache(s) Cardiovascular: Cardiovascular: Reports chest pain and Denies dyspnea Respiratory: Respiratory: Reports cough and Denies dyspnea Gastrointestinal: Gastrointestinal: Reports abdominal pain, Reports nausea and Denies vomiting Musculoskeletal: Musculoskeletal: Reports back pain Integumentary/Breasts: Skin/Breast: Denies rash Neurologic: Denies vertigo, Denies dizziness, Denies frequent falls and Reports headache(s) Psychiatric: Psychiatric: Denies depression [facility] Past Medical History Medical History Essential hypertension Left shoulder pain Type 2 diabetes mellitus Hyperparathyroidism Erosive esophagitis Hypertension Acute diarrhea Pre-op examination Cervical radiculopathy Rash of foot [place]iera albicans infection Cervicalgia Environmental allergies Hospital discharge follow-up MARY on CPAP Elevated red blood cell count Screening for hyperlipidemia Chronic pain syndrome Lumbar pain Encounter for annual routine gynecological examination Multiple air fluid levels of small intestine determined by X-ray Abdominal bloating Hypothyroid Sleep apnea Abdominal cramping Edema Anxiety with depression Chronic pain (Unknown) Gastroparesis Left knee pain Hypothyroidism Bilateral shoulder pain Hyperlipidemia LDL goal <70 Degeneration, intervertebral disc, cervical Spondylosis of cervical spine at multiple levels without myelopathy Sleep apnea Renal calculi Incontinence Goiter Disc degeneration, lumbar Spondylosis of lumbar region without myelopathy or radiculopathy Arthropathy of facet joint Insomnia LUDY (generalized anxiety disorder) Moderately severe recurrent major depression Chronic pain syndrome Morbid (severe) obesity due to excess calories Fibromyalgia Small bowel motility disorder Chronic idiopathic constipation Asthma Surgical History History of knee replacement procedure of right knee History of hernia surgery Hx of colonoscopy History of esophagogastroduodenoscopy (EGD) History of cholecystectomy Delivery by section History of hysterectomy Family History Family History Father Past heart attack Anxiety Mother MOF (multiple organ failure) Brother HIV (human immunodeficiency virus infection) Sister Ovarian cancer Lupus Bone cancer Uterine cancer Tumor Daughter Guillain-[place] Sister Lupus History of open heart surgery Family/Other Depression FH: mental illness Maternal Aunt Breast cancer Maternal Aunt Tumor Social History Social History Household Members: None Household Members Other:: Housing: Apartment Are you a primary urgent care physician to a significant other at home: No Do you presently have visiting nurse or other home services: Yes Alcohol intake: never Patient Tobacco Use Status: Never used Tobacco Tobacco use type: Cigarette Smoked in Last 30 Days: No e-Cigarette/Vaping Use: Never Used Second Hand Smoke Exposure: Yes Use of substances other than those prescribed or required for medical reasons: No Advance Directives: Yes Advance Directives on File: Yes Advance Directives Date on File: 12/08/21 service: No Current occupational status: unemployed and disabled Cognitive needs: Yes Hearing needs: No Vision needs: No Physical Exam 2 Vital Signs: Vital Signs: Last Vital Signs Temp 98.4 F 08/18/24 00:34 Pulse 74 08/18/24 00:34 Resp 18 08/18/24 00:34 BP 123/58 L 08/18/24 00:34 Pulse Ox 95 08/18/24 00:34 O2 Del Method Room Air 08/18/24 00:34 BMI result Body Mass Index 41.8 Const: General: healthy appearing, comfortable, no acute distress, alert and awake Nutritional Appearance: well nourished Orientation/consciousness: p atient oriented x3 HEENT: Head: Yes normocephalic and Yes atraumatic Eyes: Eyelids: Yes eyelids normal Conjunctivae: conjunctivae normal S clerae: sclerae normal Corneas: corneas normal Pupils: Equal, round and reactive pupils present EOM: EOMs intact bilaterally Neck: Neck: Yes full ROM Resp: Effort & Inspection: normal respiratory effort, able to speak in complete sentences, no audible wheezes and not labored Auscultation: clear to auscultation bilaterally Cardio: Rate: regular rate Rhythm: regular rhythm GI: Inspection: No distended Palpation (GI): Soft to palpation, not firm, Tenderness to palpation present (GI) in the RLQ, Guarding due to palpation present (GI) and not rigid Skin: General skin exam: elasticity normal Neuro: General: patient oriented x3 Cranial nerves: Yes Equal, round and reactive pupils present and Yes Bilaterally intact EOM present Cognition (Neuro): normal cognition Course Course Course Narrative: This is a Rapid Medical Exam performed in triage by Chichi Sommers PA-C. Full HPI, ROS and PE to be performed by primary ED provider. 59 yo F w/PMHx DM, MARY, HTN, hypothyroid, HLD, LUDY, Asthma presenting to the ED c/o chest pain, cough, congestion, b/l flank pain & epigastric pain x3 days. +hematuria yesterday, resolved today. denies dysuria. PE: ambulating w/steady gait, talking in complete sentences, nontoxic appearing Plan: EKG, labs, UA Reevaluation(s) Reevaluation #1: Patient's urinalysis had trace bacteria with 6-10 white cells, no evidence of contamination. This was the only finding that could explain her pain, we will treat as a UTI. Time: 01:52 Medications Administered Discontinued Medications Generic Name Dose Route Start Last Admin Trade Name Presley PRN Reason Stop Dose Admin Iohexol 85 ml 08/17/24 23:32 08/17/24 23:33 Iohexol 350 Mg/Ml 100 Ml Infus..Btl IV 08/17/24 23:33 85 ml ONCE ONE Administration Ketorolac Tromethamine 30 mg 08/17/24 23:02 08/17/24 23:12 Ketorolac Tromethamine 30 Mg/Ml Vial IVPUSH 08/17/24 23:03 30 mg ONCE ONE Administration Morphine Sulfate 2 mg 08/18/24 00:25 08/18/24 00:38 Morphine Sulfate 2 Mg/Ml Cartridge IVPUSH 08/18/24 00:26 2 mg ONCE ONE Administration Protocol Ondansetron HCl 4 mg 08/17/24 23:02 08/17/24 23:12 Ondansetron Hcl 4 Mg/2 Ml Vial IVPUSH 08/17/24 23:03 4 mg ONCE ONE Administration Medical Decision Making Medical Decision Making MDM Narrative: 59-year-old female past medical history as documented above presents for evaluation of multiple complaints. She has chest pain that is worse with cough and movement. Her chest pain started 3 days ago, her troponin is negative, her EKG ischemic, she rules out for ACS. Her chest x-ray does not show any acute abnormalities. She does have a chronically elevated right hemidiaphragm. The patient complains of right flank pain and therefore had a right upper quadrant ultrasound ordered in triage which is unremarkable. On my exam she is quite tender in the right lower quadrant with guarding, there is concern for acute appendicitis, I ordered a CT scan of the abdomen pelvis. She has a mild leukocytosis, she is not septic. Urinalysis is currently pending to evaluate for UTI/pyelonephritis Differential Diagnosis Differential Diagnoses: The differential diagnosis associated with the presentation includes Chest pain Abdominal pain Pneumonia ACS Pyelonephritis Obstructive uropathy Acute appendicitis Lab Data MDM Lab Attestation statement: I reviewed the patient's lab results. See above 08/17/24 16:44 08/17/24 16:44 Labs: Lab Results 08/17/24 08/17/24 Range/Units 16:44 23:11 WBC 11.4 H (4.8-10.8) X10*3/uL RBC 5.49 (4.20-5.50) X10*6/uL Hgb 12.7 (12.0-16.0) g/dl Hct 41.9 (37.0-47.0) % MCV 76.3 L (80.0-98.0) fL MCH 23.1 L (27.0-33.0) pg MCHC 30.3 L (31.0-35.0) g/dl RDW 19.3 H (11.0-16.0) % Plt Count 237 (160-400) X10*3/uL MPV 10.7 (9.4-12.3) fL Immature Gran % (Auto) 0.4 (0.0-0.4) % Neut % (Auto) 76.5 H (45-73) % Lymph % (Auto) 15.4 L (20-40) % [place] % (Auto) 5.3 (2-11) % Eos % (Auto) 2.0 (0-4) % Baso % (Auto) 0.4 (0-2) % Lymph # (Auto) 1.8 (1.2-4.9) X10*3/uL [place] # (Auto) 0.6 (0.1-1.2) X10*3/uL Eos # (Auto) 0.2 (0.0-0.4) X10*3/uL Baso # (Auto) 0.0 (0.0-0.2) X10*3/uL Abs Immat Gran (auto) 0.05 H (0.00-0.03) X10*3/uL Absolute Neuts (auto) 8.7 H (2.0-8.3) x10*3/uL Absolute Nucleated RBC 0.000 (0.0-0.012) X10*3/uL Nucleated RBC % (auto) 0.0 (0.0-0.2) /100WBC Sodium 139 (135-145) mmol/L Potassium 5.0 (3.3-5.1) mmol/L Chloride 106 (96-108) mmol/L Carbon Dioxide 30 H (22-29) mmol/L Anion Gap 8 L (12-20) BUN 14 (9-16) mg/dL Creatinine 0.81 (0.5-1.4) mg/dL Estim Creat Clear Calc 102.0 Estimated GFR > 60 Random Glucose 87 (60-115) mg/dL Calcium 9.1 (8.4-10.2) mg/dL Magnesium 2.0 (1.6-2.6) mg/dL Total Bilirubin 0.6 (0.0-1.0) mg/dL Direct Bilirubin 0.3 (0.0-0.5) mg/dL AST 19 (5-31) U/L ALT 19 (0-31) U/L Alkaline Phosphatase 107 (39-117) U/L Troponin I High Sens < 2.7 (<3.5-17.0) ng/L Total Protein 7.7 (6.5-8.0) g/dL Albumin 4.0 (3.5-5.0) g/dL Lipase 26 (8-78) U/L Urine Color Yellow Urine Appearance Clear Urine pH 6.0 (5.0-9.0) Ur Specific [place] >= 1.030 H (1.005-1.025) Urine Protein Negative (Neg-Trace) mg/dL Urine Glucose (UA) Negative (Negative) mg/dL Urine Ketones Negative (Negative) mg/dL Urine Blood Negative (Negative) Urine Nitrite Negative (Negative) Ur Leukocyte Esterase Negative (Negative) Urine RBC 0-2 (0-2) /HPF Urine WBC 6-10 H (0-5) /HPF Ur Squamous Epith Cells 0-2 (0-2) /HPF Urine Bacteria Trace (None Seen) Hyaline Casts 0-2 (0-2) /LPF Influenza Type A (PCR) NEGATIVE (Negative) Influenza Type B (PCR) NEGATIVE (Negative) RSV RNA Qual (PCR) NEGATIVE (Negative) SARS-CoV-2 RNA (RT-PCR) NEGATIVE (Negative) Independent Interpretation I performed an independent interpretation of an: EKG (Sinus rhythm with a rate of [address] segment elevation or depression) Radiology Impression Discussion of test interpretation with radiology: I have reviewed the radiologist's reading. Radiologist Impression: FINDINGS: LUNG BASES: There is marked elevation of the right hemidiaphragm, similar to prior. Right basilar atelectasis is present. The visualized lung bases are unremarkable. LIVER, GALLBLADDER, AND BILIARY TREE: The liver is normal in size, shape, and attenuation. No focal hepatic lesion or biliary ductal dilatation is present. The gallbladder is surgically absent PANCREAS: Unremarkable. SPLEEN: Unremarkable. ADRENAL GLANDS: Unremarkable. KIDNEYS AND URETERS: The kidneys are normal in size, shape, and attenuation. No hydronephrosis, hydroureter, or calculi seen. No perinephric stranding. BLADDER: Unremarkable. GASTROINTESTINAL TRACT: The small and large bowel are unremarkable. The appendix is unremarkable. ABDOMINAL WALL: No significant hernia is appreciated. There is mild diastases of the rectus muscles in the epigastrium. LYMPH NODES: No retroperitoneal lymphadenopathy. VASCULAR: Unremarkable. PELVIC VISCERA: Unremarkable. OSSEOUS STRUCTURES: Unremarkable. Mild degenerative changes are present. CT/CT abdomen pelvis w IV con IMPRESSION: 1. A cause for the patient's right lower quadrant pain has not been found. The appendix is normal. 2. Incidental note made of marked elevation of the right hemidiaphragm, cholecystectomy and mild degenerative changes in the spine. Fleischner guidelines were followed. Electronically signed by: Alex King MD 08/18/2024 12:14 AM [facility] [place] Discharge Plan Discharge Clinical Impression: Abdominal pain, Chest pain Patient Disposition: Home, Self-Care Instructions: Chest Pain (ED), Abdominal Pain (ED) Additional Instructions: Your workup in the ER today was reassuring. This includes your blood work, chest x-ray, ultrasound, abdominal CT scan. There was a small amount of bacteria in your urine which could be causing your pain. Take the cefuroxime twice daily for 5 days. Return for new or worsening symptoms, follow up with your primary doctor Prescriptions: New cefuroxime axetil 250 mg tablet 250 mg PO BID Qty: 10 0RF No Action albuterol sulfate [Ventolin HFA] 90 mcg/actuation HFA aerosol inhaler 1 puff PO Q4H PRN (Reason: for wheezing) 30 Days Qty: 54 1RF acetaminophen 650 mg tablet extended release 650 mg PO Q8H PRN (Reason: arthritis) 30 Days Qty: 90 1RF meclizine 25 mg tablet 25 mg PO DAILY PRN (Reason: dizziness) 90 Days Qty: 90 0RF diphenoxylate-atropine [Lomotil] 2.5-0.025 mg tablet 1 tab PO BID PRN (Reason: diarrhea) Qty: 14 0RF hydrocortisone 2.5 % cream with perineal applicator 1 appl ND BID-QID PRN (Reason: hemorrhoids) 14 Days Qty: 30 1RF tizanidine 2 mg tablet 2 mg PO BID 14 Days Qty: 28 0RF clonidine HCl 0.1 mg tablet 1 mg PO TID 30 Days Qty: 90 0RF sumatriptan succinate [Imitrex] 50 mg tablet 50 mg PO .QD PRN (Reason: migraine headache) Qty: 14 0RF colchicine 0.6 mg tablet 0.6 mg PO BID Qty: 20 0RF (DME) ear thermometer Misc See Rx Instructions .Route Qty: 6 0RF Rx Instructions: As directed metoclopramide HCl 10 mg tablet 10 mg PO QID Qty: 120 1RF metoprolol succinate 50 mg tablet extended release 24 hr 50 mg PO DAILY 90 Days Qty: 90 1RF (DME) BP monitor large See Rx Instructions .Route .MEDSUPPLY Qty: 1 0RF Rx Instructions: As directed (DME) blood pressure monitor Kit See Rx Instructions .Route Qty: 1 0RF Rx Instructions: Use as needed cholecalciferol (vitamin D3) 50 mcg (2,000 unit) capsule 50 mcg PO DAILY 90 Days Qty: 90 1RF albuterol sulfate 2.5 mg /3 mL (0.083 %) solution for nebulization 2.5 mg inhalation Q6H PRN (Reason: shortness of breath or wheezing) 30 Days Qty: 180 11RF pregabalin 100 mg capsule 100 mg PO BID 30 Days Qty: 60 0RF triamcinolone acetonide 0.5 % cream 1 appl topical DAILY 14 Days Qty: 15 0RF atorvastatin 10 mg tablet 10 mg PO BEDTIME Qty: 90 1RF levothyroxine 112 mcg tablet 112 mcg PO DAILY@0600 Qty: 90 1RF hydroxyzine HCl 25 mg tablet 25 mg PO BEDTIME PRN (Reason: itching) 30 Days Qty: 30 0RF ferrous sulfate 325 mg (65 mg iron) tablet 325 mg PO DAILY 90 Days Qty: 90 1RF (DME) blood pressure test kit-large Kit See Rx Instructions .ROUTE .MEDSUPPLY Qty: 1 0RF Rx Instructions: As directed (DME) recliner See Rx Instructions .Route .MEDSUPPLY Qty: 1 0RF Rx Instructions: As directed fluticasone furoate-vilanterol [Breo Ellipta] 200-25 mcg/dose blister with device 1 inh inhalation DAILY 30 Days Qty: 1 0RF sodium,potassium,mag sulfates [Suprep Bowel Prep Kit] 17.5-3.13-1.6 gram recon soln See Rx Instructions PO .COMPLEX Qty: 354 0RF Rx Instructions: DILUTE; drink full amount early evening before AND next morning at least 2 hr before procedure; follow w 960 mL water PO (DME) FreeStyle Test Strip See Rx Instructions .Route Qty: 100 3RF Rx Instructions: Use 1 test strip once a day trazodone 150 mg tablet 150 mg PO BEDTIME PRN (Reason: insomnia) lorazepam 1 mg tablet 1 mg PO DAILY PRN (Reason: ANXIETY) dicyclomine 10 mg capsule 20 mg PO QID PRN (Reason: abdominal pain) 30 Days Qty: 120 0RF zolpidem 5 mg tablet 5 mg PO BEDTIME PRN clotrimazole 1 % cream 1 appl topical BID 28 Days Qty: 45 3RF insulin lispro [Humalog KwikPen Insulin] 100 unit/mL insulin pen 5 unit subcut DAILY Qty: 15 3RF Rx Instructions: with supper insulin glargine [Lantus Solostar U-100 Insulin] 100 unit/mL (3 mL) insulin pen 15 unit subcut QAM Qty: 15 3RF (DME) pen needle, diabetic [BD Rosario 2nd Gen Pen Needle] 32 gauge x 5/32 needle See Rx Instructions .Route Qty: 100 3RF Rx Instructions: use 2x daily As directed Trulicity 1.5 mg/0.5 mL pen injector 1.5 mg subcut QWEEK Qty: 2 6RF pantoprazole 40 mg tablet,delayed release (DR/EC) 40 mg PO DAILY (DME) nebulizers Kit See Rx Instructions .Route Rx Instructions: As directed (DME) CPAP Machine/Device Device See Rx Instructions .Route Rx Instructions: As directed bumetanide 1 mg tablet 1 mg PO BID Qty: 30 6RF glucose [Dex4 Glucose] 4 gram tablet,chewable 16 g PO Q15M PRN (Reason: hypoglycemia) Qty: 100 0RF Rx Instructions: until symptoms of low blood sugar are controlled hydroxyzine HCl 50 mg tablet PO methocarbamol 750 mg tablet 750 mg PO DAILY paroxetine HCl 30 mg tablet 30 mg PO DAILY paroxetine HCl 20 mg tablet 20 mg PO DAILY gabapentin 300 mg capsule 300 mg PO TID sertraline 50 mg tablet 50 mg PO DAILY bupropion HCl 150 mg tablet extended release 24 hr 150 mg PO DAILY Print Language: Spanish
[2024-08-17 16:50] LABS: MANUAL DIFF FLAG NO
[2024-08-17 16:57] LABS: Basophils Percent Auto 0.4 % (0-2); Eosinophils Absolute Auto 0.2 X10*3/uL (0.0-0.4); Hematocrit 41.9 % (37.0-47.0); Hemoglobin 12.7 g/dl (12.0-16.0); Imm Gran Abs Auto 0.05 X10*3/uL (0.00-0.03); Imm Gran Pct Auto 0.4 % (0.0-0.4); Lymphocytes Absolute Auto 1.8 X10*3/uL (1.2-4.9); Lymphocytes Percent Auto 15.4 % (20-40); Mean Corpuscular HGB Conc 30.3 g/dl (31.0-35.0); Mean Corpuscular Hemoglobin 23.1 pg (27.0-33.0); Mean Corpuscular Volume 76.3 fL (80.0-98.0); Mean Platelet Volume 10.7 fL (9.4-12.3); Monocytes Absolute Auto 0.6 X10*3/uL (0.1-1.2); Monocytes Percent Auto 5.3 % (2-11); Neutrophils Absolute Auto 8.7 x10*3/uL (2.0-8.3); Neutrophils Percent Auto 76.5 % (45-73); Platelet Count 237 X10*3/uL (160-400); Red Blood Count 5.49 X10*6/uL (4.20-5.50); Red Cell Distribution Width 19.3 % (11.0-16.0); White Blood Count 11.4 X10*3/uL (4.8-10.8)
[2024-08-17 17:08] LABS: Alanine Aminotransferase 19 U/L (0-31); Alkaline Phosphatase 107 U/L (39-117); Anion Gap 8 (12-20); Aspartate Amino Transferase 19 U/L (5-31); Bilirubin Direct 0.3 mg/dL (0.0-0.5); Bilirubin Total 0.6 mg/dL (0.0-1.0); Blood Urea Nitrogen 14 mg/dL (9-16); Calcium 9.1 mg/dL (8.4-10.2); Carbon Dioxide 30 mmol/L (22-29); Chloride 106 mmol/L (96-108); Estimated Glomerular Filt Rate > 60; Glucose Random 87 mg/dL (60-115); Lipase 26 U/L (8-78); Sodium 139 mmol/L (135-145); Total Protein 7.7 g/dL (6.5-8.0)
[2024-08-17 17:18] LABS: Troponin-I High Sensitivity < 2.7 ng/L (<3.5-17.0)
[2024-08-17 17:28] LABS: Influenza A PCR NEGATIVE (Negative); Influenza B PCR NEGATIVE (Negative); Resp Syncy Virus RNA Qual PCR NEGATIVE (Negative); SARS COV2 PCR INHOUSE NEGATIVE (Negative)
[2024-08-17 22:29] VITALS: BP 162/73; PULSE 71; RESP 16; TEMP 36.9; O2SAT 98
[2024-08-17] MEDS: Ketorolac Tromethamine 30 MG/ML VIAL IVPUSH (23:12)
[2024-08-17] MEDS: ondansetron HCL 4 MG/2 ML VIAL IVPUSH (23:12)
--- NOTE | 2024-08-17 23:14 | PC.NURSE ---
Iv placed in left AC, medicated per mar, pt taken to Ct Scan.
[2024-08-17 23:18] LABS: Appearance Urine Clear; Color Urine Yellow; Glucose Urine UA Negative (Negative); Leukocyte Esterase Urine Negative (Negative); Nitrite Urine Negative (Negative); Specific Gravity - Urine >= 1.030 (1.005-1.025); Urine Blood Negative (Negative); Urine Ketones Negative (Negative); Urine Protein Negative (Neg-Trace)
[2024-08-17 23:20] LABS: Bacteria Urine Trace (None Seen); Hyaline Casts Urine 0-2 /LPF (0-2); RBC Urine 0-2 /HPF (0-2); Squamous Epithelial Cell Urine 0-2 /HPF (0-2); UACC Culture Trigger YES
--- NOTE | 2024-08-17 23:23 | MHC.EDTECH ---
late entry: this tech assumed care of pt at 2300, rounded on pt she appeared to be in no apparent distress and inquired if pt was in need of anything at this time in which the pt stated that she was all set. Reassured pt to use call light if she is in need of anything while she is here.
[2024-08-17] MEDS: iohexoL 350 MG/ML 100 ML INFUS..BTL 85 ML IV (23:33)
[2024-08-18 00:34] VITALS: BP 123/58; PULSE 74; RESP 18; TEMP 36.9; O2SAT 95
[2024-08-18] MEDS: Morphine Sulfate 2 MG/ML CARTRIDGE IVPUSH (00:38)
--- NOTE | 2024-08-18 00:43 | PC.NURSE ---
Medicated per mar.
--- NOTE | 2024-08-18 02:04 | PC.NURSE ---
Iv removed, reviewed discharge instructions with pt, pt verbalized understanding, no sign of distress, upon discharge pt had a steady gait.
[2024-08-18 02:06] VITALS: BP 126/55; PULSE 67; RESP 18; TEMP 36.8; O2SAT 96
[2024-08-18 02:10] VITALS: BP 126/55; PULSE 67; RESP 18; TEMP 36.8; O2SAT 98
== END 2024-08-18 02:11 | disposition home or self-care (01) ==
PROVIDERS: Physician Assistant; Emergency Provider Emergency Medicine; PCP Internal Medicine
DX: R10.2 Pelvic and perineal pain (principal); R07.89 Other chest pain; J02.9 Acute pharyngitis, unspecified; M54.50 Low back pain, unspecified; R05.9 Cough, unspecified; R51.9 Headache, unspecified; Z79.899 Other long term (current) drug therapy; Z03.818 Encounter for observation for suspected exposure to other biological agents ruled out
CPT/HCPCS: 0241U; 36415; 71045; 74177; 76775; 80048; 80076; 81001; 83690; 83735; 84484; 85025; 87086; 93005; 96374; 96375; 99284; 99285; J1885; J2270; J2405; Q9967

== ENCOUNTER → 2024-08-17 15:50 | Outpatient (BNV) | payer OTHER, SELFPAY | PROVIDERS: Emergency Provider Emergency Medicine; PCP Internal Medicine; Visit Provider Internal Medicine Cardiovascular Disease | DX: R07.9 Chest pain, unspecified (principal) | CPT/HCPCS: 93010 ==

== ENCOUNTER 2024-08-21 07:52 | Outpatient (AMB) | payer OTHER, SELFPAY ==
--- NOTE | 2024-08-28 11:33 | A.OFFVIS_ITS ---
Intake Visit Reasons: CAPSULE ENDOSCOPY Allergies Penicillins Allergy (Severe, Verified 08/17/24 16:04) swelling adhesive tape [ADHESIVE TAPE] Allergy (Intermediate, Verified 08/17/24 16:04) RASH amoxicillin [AMOXICILLIN] Allergy (Intermediate, Verified 08/17/24 16:04) RASH,SWELLING ibuprofen [From Motrin] Allergy (Intermediate, Verified 08/17/24 16:04) Hypertension latex Allergy (Intermediate, Verified 08/17/24 16:04) Rash PFSH Medical History Essential hypertension Left shoulder pain Type 2 diabetes mellitus Hyperparathyroidism Erosive esophagitis Hypertension Acute diarrhea Pre-op examination Cervical radiculopathy Rash of foot Kiera albicans infection Cervicalgia Environmental allergies Hospital discharge follow-up MARY on CPAP Elevated red blood cell count Screening for hyperlipidemia Chronic pain syndrome Lumbar pain Encounter for annual routine gynecological examination Multiple air fluid levels of small intestine determined by X-ray Abdominal bloating Hypothyroid Sleep apnea Abdominal cramping Edema Anxiety with depression Chronic pain (Unknown) Gastroparesis Left knee pain Hypothyroidism Bilateral shoulder pain Hyperlipidemia LDL goal <70 Degeneration, intervertebral disc, cervical Spondylosis of cervical spine at multiple levels without myelopathy Sleep apnea Renal calculi Incontinence Goiter Disc degeneration, lumbar Spondylosis of lumbar region without myelopathy or radiculopathy Arthropathy of facet joint Insomnia LUDY (generalized anxiety disorder) Moderately severe recurrent major depression Chronic pain syndrome Morbid (severe) obesity due to excess calories Fibromyalgia Small bowel motility disorder Chronic idiopathic constipation Asthma Surgical History History of knee replacement procedure of right knee History of hernia surgery Hx of colonoscopy History of esophagogastroduodenoscopy (EGD) History of cholecystectomy Delivery by section History of hysterectomy Family History Father Past heart attack Anxiety Mother MOF (multiple organ failure) Brother HIV (human immunodeficiency virus infection) Sister Ovarian cancer Lupus Bone cancer Uterine cancer Tumor Daughter Guillain-Torrey Sister Lupus History of open heart surgery Family/Other Depression FH: mental illness Maternal Aunt Breast cancer Maternal Aunt Tumor Social History Household Members: None Household Members Other:: Housing: Apartment Are you a primary health care / medical job titles to a significant other at home: No Do you presently have visiting nurse or other home services: Yes Alcohol intake: never Patient Tobacco Use Status: Never used Tobacco Tobacco use type: Cigarette e-Cigarette/Vaping Use: Never Used Second Hand Smoke Exposure: Yes Advance Directives Date on File: 12/08/21 service: No Current occupational status: unemployed and disabled Cognitive needs: Yes Hearing needs: No Vision needs: No Office Procedures AMB Capsule Endoscopy Procedure Notes: Capsule Endoscopy: Date of Service:08/21/24 Indication: abdominal pain Findings: Esophagus looked normal, mild gastritis noted, duodenum entered at 22 mins, and small bowel looked normal cecum entered at 4 hr 48 min Conclusion: unremarkable study check lactoferrin-if high trial of budesonide Capsule Endoscopy CPT Code: 39913 - Capsule Endoscopy Assessment & Plan Assessment & Plan (1) Abdominal pain: Code(s): R10.9 - Unspecified abdominal pain Category: Medical Qualifiers: Abdominal location: right lower quadrant Qualified Code(s): R10.31 - Right lower quadrant pain Plan: see report Coding Level of Care Code Procedure Only Diagnoses Right lower quadrant abdominal pain R10.31 Abdominal location: right lower quadrant CPT Codes AMB Capsule Endoscopy - Capsule Endoscopy CPT Code: 82521 - Capsule Endoscopy ([id number])
== END 2024-08-21 08:16 | disposition home or self-care (01) ==
PROVIDERS: PCP Internal Medicine; Visit Provider Internal Medicine Gastroenterology
DX: R10.31 Right lower quadrant pain (principal); K29.70 Gastritis, unspecified, without bleeding
CPT/HCPCS: 91110

== ENCOUNTER → 2024-08-21 07:52 | Outpatient (BNVA) | payer OTHER, SELFPAY | PROVIDERS: PCP Internal Medicine; Visit Provider Internal Medicine Gastroenterology | DX: R10.31 Right lower quadrant pain (principal) | CPT/HCPCS: 91110 ==

== ENCOUNTER 2024-10-26 12:39 | Outpatient (AMB) | payer OTHER, SELFPAY ==
--- NOTE | 2024-10-26 12:55 | A.OFFPC_ITS ---
Vital Signs 10/26/24 12:56 Height 5 ft 7 in Weight 267 lb BMI 41.8 BP 130/82 Blood Pressure Location Lt brachial Position Sitting Intake Visit Reasons: sleep disorder Intake Note: Patient c/o hemorrhoids, body aches, headaches Adjuster Electrical Contacts Required: Yes Adjuster Electrical Contacts Language: Box Covering Machine Operator Name: Jenny Bell MD Information Interpreted: non-clinical & clinical Accompanied by: Self / Same As Patient Allergies Penicillins Allergy (Severe, Verified 10/26/24 13:16) swelling adhesive tape [ADHESIVE TAPE] Allergy (Intermediate, Verified 10/26/24 13:16) RASH amoxicillin [AMOXICILLIN] Allergy (Intermediate, Verified 10/26/24 13:16) RASH,SWELLING ibuprofen [From Motrin] Allergy (Intermediate, Verified 10/26/24 13:16) Hypertension latex Allergy (Intermediate, Verified 10/26/24 13:16) Rash Medication List - Last Reconciled 10/26/24 by Jenny Bell MD acetaminophen ER 650 mg PO Q8H PRN 30 days albuterol sulfate 90 mcg/actuation (Ventolin HFA) 1 puff PO Q4H PRN 30 days albuterol sulfate 2.5 mg (3 mL) inhalation Q6H PRN 30 days atorvastatin 10 mg PO BEDTIME blood pressure monitor Use as needed blood pressure test kit-large As directed blood sugar diagnostic (FreeStyle Test strips) Use 1 test strip once a day [BP monitor As directed] bumetanide 1 mg PO BID bupropion HCl XL 150 mg PO DAILY cholecalciferol (vitamin D3) 50 mcg PO DAILY 90 days clonazepam mg PO clotrimazole 1% 1 appl topical BID 4 weeks colchicine 0.6 mg PO BID CPAP (CPAP Machine/Device) As directed diphenoxylate-atropine 2.5-0.025 mg (Lomotil) 1 tab PO BID PRN dulaglutide (Trulicity) 1.5 mg (0.5 mL) subcut QWEEK ear thermometer As directed ferrous sulfate 325 mg PO DAILY 90 days fluticasone furoate-vilanterol 200-25 mcg/dose (Breo Ellipta) 1 inh inhalation DAILY 30 days gabapentin 300 mg PO TID glucose (Dex4 Glucose) 16 grams (4 x 4 gram) PO Q15M PRN hydrocortisone 2.5% 1 appl [place] BID-QID PRN 2 weeks hydroxyzine HCl 25 mg PO BEDTIME PRN 30 days hydroxyzine HCl mg PO insulin glargine (Lantus Solostar U-100 Insulin) 15 units (0.15 mL) subcut QAM insulin lispro (Humalog KwikPen (U-100) Insulin) 5 units (0.05 mL) subcut DAILY levothyroxine 112 mcg PO DAILY@0600 lorazepam 1 mg PO DAILY PRN meclizine 25 mg PO DAILY PRN 90 days methocarbamol 750 mg PO DAILY metoclopramide HCl 10 mg PO QID metoprolol succinate ER 50 mg PO DAILY 90 days nebulizers As directed pantoprazole 40 mg PO BID paroxetine HCl 30 mg PO DAILY pen needle, diabetic (BD Rosario 2nd Gen Pen Needle) use 2x daily As directed pregabalin 100 mg PO BID 30 days [recliner As directed] sertraline 50 mg PO DAILY sodium,potassium,mag sulfates 17.5-3.13-1.6 gram (Suprep Bowel Prep Kit) DILUTE; drink full amount early evening before AND next morning at least 2 hr before procedure; follow w 960 mL water PO sumatriptan succinate (Imitrex) 50 mg PO .QD PRN tizanidine 2 mg PO BID 14 days triamcinolone acetonide 0.5% 1 appl topical DAILY 2 weeks Tobacco use date assessed: 10/26/24 Dental Screening Dental Screen Date: 10/26/24 Did you have a dental visit in the last 12 months?: Yes Did you have a dental problem in the last 6 months where you did not have access to dental care?: No Was dental information given to patient?: Patient has dentist HPI HPI Comments History of Present Illness Details The patient is a 59-year-old female presenting with neuropathy. She reports a sensation of pins and needles, especially in her feet, occurring frequently and accompanied by an itching sensation. This has been problematic, affecting her daily functionality. She describes the sensation as persistent and sometimes affecting her hands and back, with episodes occurring despite previous interventions. The neuropathy appears to be worsening, and she has previously consulted neurology, expressing dissatisfaction with prior treatment without specifying the medications or treatments received. The patient's history includes type 2 diabetes mellitus, with the last recorded HbA1c level at 7.2% from a test done in August. This is slightly above the target range for glycemic control. She is also treated for hypertension and hyperlipidemia with Atorvastatin 10 mg. Additionally, she has a history of depression for which she is under medical care, though details of the specific treatment regimen for depression were not provided. There is also a report of sleep apnea, for which she uses a CPAP machine regularly. The patient experiences hemorrhoids, causing significant discomfort, especially at night. The patient has known allergies to Penicillin, Amoxicillin, Ibuprofen, and Latex, limiting treatment options for pain management. She is morbidly obese and was advised to diet and exercise to reach BMI goal less than 30. Also complains of migraines and said the sumatriptan is not working. Will be referred to Neurology and sumatriptan will be changed. [facility] Medical History (Updated 10/26/24 @ 13:27 by Jenny Bell MD) Essential hypertension Left shoulder pain Type 2 diabetes mellitus Hyperparathyroidism Erosive esophagitis Hypertension Acute diarrhea Pre-op examination Cervical radiculopathy Rash of foot Kiera albicans infection Cervicalgia Environmental allergies Hospital discharge follow-up MARY on CPAP Elevated red blood cell count Screening for hyperlipidemia Chronic pain syndrome Lumbar pain Encounter for annual routine gynecological examination Multiple air fluid levels of small intestine determined by X-ray Abdominal bloating Hypothyroid Sleep apnea Abdominal cramping Edema Anxiety with depression Chronic pain (Unknown) Gastroparesis Left knee pain Hypothyroidism Bilateral shoulder pain Hyperlipidemia LDL goal <70 Degeneration, intervertebral disc, cervical Spondylosis of cervical spine at multiple levels without myelopathy Sleep apnea Renal calculi Incontinence Goiter Disc degeneration, lumbar Spondylosis of lumbar region without myelopathy or radiculopathy Arthropathy of facet joint Insomnia LUDY (generalized anxiety disorder) Moderately severe recurrent major depression Chronic pain syndrome Morbid (severe) obesity due to excess calories Fibromyalgia Small bowel motility disorder Chronic idiopathic constipation Asthma Surgical History History of knee replacement procedure of right knee History of hernia surgery Hx of colonoscopy History of esophagogastroduodenoscopy (EGD) History of cholecystectomy Delivery by section History of hysterectomy Family History Father Past heart attack Anxiety Mother MOF (multiple organ failure) Brother HIV (human immunodeficiency virus infection) Sister Ovarian cancer Lupus Bone cancer Uterine cancer Tumor Daughter Guillain-[place] Sister Lupus History of open heart surgery Family/Other Depression FH: mental illness Maternal Aunt Breast cancer Maternal Aunt Tumor Social History Household Members: None Household Members Other:: Housing: Apartment Are you a primary health care legal assistant to a significant other at home: No Do you presently have visiting nurse or other home services: Yes Alcohol intake: never Patient Tobacco Use Status: Never used Tobacco e-Cigarette/Vaping Use: Never Used Second Hand Smoke Exposure: Yes Advance Directives Date on File: 12/08/21 service: No Current occupational status: unemployed and disabled Cognitive needs: Yes Hearing needs: No Vision needs: No Questionnaire PHQ-9 Over the last 2 weeks, how often have you been bothered by any of the following problems? 1. Little interest or pleasure in doing things: not at all 2. Feeling down, depressed, or hopeless: several days 3. Trouble falling or staying asleep, or sleeping too much: several days 4. Feeling tired or having little energy: not at all 5. Poor appetite or overeating: not at all 6. Feeling bad about yourself - or that you are a failure or have let yourself or your family down: not at all 7. Trouble concentrating on things, such as reading the newspaper or watching television: not at all 8. Moving or speaking so slowly that other people could have noticed. Or the opposite - being so fidgety or restless that you have been moving around a lot more than usual: not at all 9. Thoughts that you would be better off or of hurting yourself in some way: not at all Total score: 2 Depression Screening Interpretation: Positive Depression Screening Follow-up: Existing condition, In treatment and Follow-up Visit Requested Depression Screening Done: Yes 84887 - PHQ-9 Billing: Yes Source: Developed by Drs. Shaquille Hitchcock, Janae Devlin, Avery Cutler and colleagues, with an educational carlos from [employer]. Thrive Questionnaire Date Thrive assessed: 10/26/24 I am a: Patient What is your living situation today?: I have a steady place to live Within the past 12 months, did the food you bought not last and you didn't have the money to get more?: Never true Within the past 12 months, did you worry whether your food would run out before you got money to buy more?: Never true Do you have trouble paying for medicines?: No Do you have trouble getting transportation to medical appointments?: No Do you have trouble paying your heating and electricity bill?: No Do you have trouble taking care of your child, family member or friend?: No Do you have trouble with day-to-day activities such as bathing, preparing meals, shopping, managing finances, etc.?: No Are you currently unemployed and looking for a job?: No Are you interested in more education?: No Please select the resources that you would like help with: None Currently or been in a relationship where the following occur: No concerns reported THRIVE Score: 0 AUDIT C Alcohol Use Questionnaire (AUDIT-C) 1. How often do you have a drink containing alcohol?: Never Total Score: 0 LUDY-7 AMB Questionnaire LUDY-7 Date LUDY - 7 assessed: 10/26/24 Feeling nervous, anxious, or on edge: 1 = Several days Not being able to stop or control worryin = Not at all Worrying too much about different things: 1 = Several days Trouble relaxin = Not at all Being so restless that it is hard to sit still: 0 = Not at all Becoming easily annoyed or irritable: 0 = Not at all Feeling afraid as if something awful might happen: 0 = Not at all Total LUDY-7 score (0-4 normal; 5-9 mild; 10-14 moderate; 15-21 severe): 2 Source: Developed by Drs. Shaquille Hitchcock, Janae Devlin, Avery Cutler and colleagues, with an educational carlos from [employer]. LUDY-7 Assessment Billing LUDY-7 Assessment Tool: LUDY-7 Assessment 84874 Review of Systems Const All systems reviewed & are unremarkable except as noted in HPI and below Card Denies chest pain at rest, Denies chest pain with activity, Denies edema, Denies irregular heart rhythm, Denies claudication, Denies dyspnea, Denies dyspnea on exertion, Denies orthopnea, Denies paroxysmal nocturnal dyspnea and Denies slow heart rate Resp Denies cough, Denies dyspnea and Denies dyspnea on exertion GI Denies abdominal pain, Denies change in bowel habits, Denies excessive flatus, Denies nausea and Denies vomiting Physical exam (Primary Care) Vital Signs: Last Vital Signs BP 130/82 10/26/24 12:56 BMI result Body Mass Index 41.8 BMI Assessment/Plan discussion: High BMI High, discussed plan: lifestyle, weight reduction, dietary and physical activity Tobacco/Smoking Status: Tobacco use Status Tobacco use date assessed 10/26/24 10/26/24 13:06 Patient Tobacco Use Status Never used Tobacco 10/26/24 13:06 Tobacco use type 10/26/24 13:06 e-Cigarette/Vaping Use Never Used 10/26/24 13:06 PHQ-9: PHQ-9 Score PHQ-9: Total score 2 10/26/24 14:25 Depression Screening Interpretation: Positive Depression Screening Follow-up: Existing condition, In treatment and Follow-up Visit Requested Thrive Assessment: Date of Thrive Assessment Date Thrive assessed 10/26/24 10/26/24 13:08 Currently or been in a relationship where the following occur: No concerns reported Resp Effort & Inspection: normal respiratory effort Auscultation: clear to auscultation bilaterally Cardio Jugular venous distension: no JVD Rate: regular rate Rhythm: regular rhythm Heart sounds: S1 normal heart sound present and S2 normal heart sound present Neuro General: no focal motor deficits Extrem General: Yes full ROM Office Procedures Flu Questionnaire Does the patient have a severe egg allergy?: No Immunizations Fluarix Triv [id number] (PF) 45 mcg (15 mcg x 3)/0.5 mL IM syringe Performing Provider: Jenny Bell MD Performing Location: [facility] [place] [facility] Documented (not given) by: KAN De Jesus on 10/26/24 13:27 Reason Not Given: Patient Refused Coding Level of Care Code Est Pt Level 4 (03342) Complex EM visit Add On G2211 Diagnoses Migraines G43.909 Uncontrolled type 2 diabetes mellitus with hyperglycemia, with long-term current use of insulin E11.65; Z79.4 Internal hemorrhoids K64.8 Diabetic gastroparesis E11.43; K31.84 MARY (obstructive sleep apnea) G47.33 Hyperlipidemia LDL goal <70 E78.5 Morbid (severe) obesity due to excess calories E66.01 Moderately severe recurrent major depression F33.2 LUDY (generalized anxiety disorder) F41.1 Additional Codes LUDY-7 Assessment Billing - LUDY-7 Assessment Tool: LUDY-7 Assessment 00372 ([id number]) PHQ-9 - 88869 - PHQ-9 Billing: Yes ([id number]) Time Spent (min) 25 Assessment & Plan Assessment & Plan (1) Migraines: Code(s): G43.909 - Migraine, unspecified, not intractable, without status migrainosus Category: Medical (2) Uncontrolled type 2 diabetes mellitus with hyperglycemia, with long-term current use of insulin: Code(s): E11.65 - Type 2 diabetes mellitus with hyperglycemia; Z79.4 - alf (current) use of insulin Category: Medical (3) Internal hemorrhoids: Code(s): K64.8 - Other hemorrhoids Category: Medical (4) Diabetic gastroparesis: Comment: FINDINGS: There is good visualization of activity in the stomach immediately post ingestion. As the study progresses, there is delayed clearance of radiotracer from the stomach. Retention in the stomach at each time interval was: 1 hour 83% (normal 37%-90%) 2 hours 64% (normal 30%-60%) 3 hours 44% 4 hours 27% (normal 0%-10%) NM/NM gastric emptying study IMPRESSION: Delayed gastric emptying as described. Dictated By: Anatoly Montez MD Signed By: <Electronically signed by Anatoly Montez MD in OV> 05/08/22 Code(s): E11.43 - Type 2 diabetes mellitus with diabetic autonomic (poly)neuropathy; K31.84 - Gastroparesis Category: Medical (5) MARY (obstructive sleep apnea): Code(s): G47.33 - Obstructive sleep apnea (adult) (pediatric) Category: Medical (6) Hyperlipidemia LDL goal <70: Code(s): E78.5 - Hyperlipidemia, unspecified Category: Medical (7) Morbid (severe) obesity due to excess calories: Code(s): E66.01 - Morbid (severe) obesity due to excess calories Category: Medical (8) Moderately severe recurrent major depression: Code(s): F33.2 - Major depressive disorder, recurrent severe without psychotic features Category: Medical (9) LUDY (generalized anxiety disorder): Code(s): F41.1 - Generalized anxiety disorder Category: Medical Plan - Review current diabetic management and adjust medications to aim for optimal glycemic control. - Initiate a referral to neurology to reassess neuropathy care, exploring alternative treatment approaches. - Consider consulting a sole rougher for pruritus management. - Continue current lipid and hypertension management protocol as it appears stable. - Consider hemorrhoid treatment options based on the patient's discomfort and discuss further intervention if necessary. Patient was informed and verbally consented to the use of an ambient scribe for clinic note documentation during this visit. I discussed with the patient the importance of maintaining optimal diabetic control to potentially mitigate neuropathic symptoms. We also reviewed possible alternatives for neuropathy management, including the need for a follow-up neurology consultation. I emphasized the current limitation due to her multiple allergies and reassured her that our management plan would focus on safe and effective treatment options. The importance of adherence to prescribed medications for hyperlipidemia and hypertension was also highlighted. Given the discomfort caused by hemorrhoids, we agreed on reviewing current treatment options and exploring safe alternatives. Potential management of pruritus was briefly suggested, pending further dermatological consultation. Orders: Orders Influenza [id number] Immunization Today Z23 - Encounter for immunization Referrals Neurology Referral G43.909 - Migraine, unspecified, not intractable, without status migrainosus Medications: New rizatriptan do not exceed 3 doses per 24 hrs 10 mg PO Q2-4H PRN 7 tabs 2RF migraine headache 30 days magnesium oxide 400 mg PO BEDTIME 90 tabs 0RF 90 days Refilled hydrocortisone 2.5% 1 appl [place] BID-QID PRN 30 grams 1RF hemorrhoids 2 weeks K64.8 - Other hemorrhoids hydroxyzine HCl 25 mg PO BEDTIME PRN 30 tabs 0RF itching 30 days Discontinued sumatriptan succinate (Imitrex) Discontinued Reason: Patient Completed Course 50 mg PO .QD PRN 14 tabs 0RF migraine headache G43.009 - Migraine without aura, not intractable, without status migrainosus pregabalin Discontinued Reason: Order 100 mg PO BID 30 days 60 caps 0RF Patient Instructions: - Continue using the CPAP machine regularly as prescribed. - Monitor blood glucose levels and adhere to the prescribed diabetic diet and medications. - Avoid allergens: Penicillin, Amoxicillin, Ibuprofen, and Latex. - Follow-up for neurology consultation as scheduled. - Try [id number] hemorrhoid treatments and report back on effectiveness. - Keep a symptom diary to track episodes of neuropathy for further analysis.
[2024-10-26 12:56] VITALS: BP 130/82; BMI 41.8
== END 2024-10-26 13:30 | disposition home or self-care (01) ==
PROVIDERS: PCP Internal Medicine; Visit Provider Internal Medicine
DX: G43.909 Migraine, unspecified, not intractable, without status migrainosus (principal); E11.65 Type 2 diabetes mellitus with hyperglycemia; Z79.4 Long term (current) use of insulin; E11.43 Type 2 diabetes mellitus with diabetic autonomic (poly)neuropathy; E66.01 Morbid (severe) obesity due to excess calories; F33.2 Major depressive disorder, recurrent severe without psychotic features; K64.8 Other hemorrhoids; K31.84 Gastroparesis; G47.33 Obstructive sleep apnea (adult) (pediatric); E78.5 Hyperlipidemia, unspecified; F41.1 Generalized anxiety disorder

== ENCOUNTER → 2024-10-26 12:39 | Outpatient (BNVA) | payer OTHER, SELFPAY | PROVIDERS: PCP Internal Medicine; Visit Provider Internal Medicine | DX: G43.909 Migraine, unspecified, not intractable, without status migrainosus (principal); E11.65 Type 2 diabetes mellitus with hyperglycemia; E11.42 Type 2 diabetes mellitus with diabetic polyneuropathy; K64.8 Other hemorrhoids; K31.84 Gastroparesis; G47.33 Obstructive sleep apnea (adult) (pediatric); E78.5 Hyperlipidemia, unspecified; E66.01 Morbid (severe) obesity due to excess calories; F33.2 Major depressive disorder, recurrent severe without psychotic features; F41.1 Generalized anxiety disorder; Z79.4 Long term (current) use of insulin | CPT/HCPCS: 96127; 99212 ==

== ENCOUNTER 2024-11-17 10:14 | Outpatient (AMB) | payer OTHER, SELFPAY ==
--- NOTE | 2024-11-17 10:14 | MHC.OFFVIS ---
Intake Visit Reasons: 4 month follow up Intake Note: Bonnie presents as a telehealth, CC: she states seh she has bloody stools and incontinence. She wants to know if she can be sent something for the pains in her stomach. Lot Technician Required: No Allergies Penicillins Allergy (Severe, Verified 11/17/24 10:14) swelling adhesive tape [ADHESIVE TAPE] Allergy (Intermediate, Verified 11/17/24 10:14) RASH amoxicillin [AMOXICILLIN] Allergy (Intermediate, Verified 11/17/24 10:14) RASH,SWELLING ibuprofen [From Motrin] Allergy (Intermediate, Verified 11/17/24 10:14) Hypertension latex Allergy (Intermediate, Verified 11/17/24 10:14) Rash HPI HPI 4 month follow up: Details: 59-year-old female with pertinent history of essential hypertension, mixed hyperlipidemia, mood disorder, insulin-dependent diabetes mellitus, hypothyroidism, gastroesophageal reflux disease, congestive heart failure with preserved ejection fraction, MARY on CPAP, asthma not on home oxygen who I am calling for f/u for abdominal pain, intractable vomiting and diarrhea. RECAP: I saw the patient as an in patient 09/25 Patient had prolonged admission with abdominal pain. she had EGD and colonoscopy with colonic dysmotility, internal hemorrhoids and cecal polyp noted. she also had stool pos for c diff PCR but neg for toxin. she was d/c'ed on vancomycin and mesalamine. she had worsening nausea, non bloody emesis and diffuse abdominal pain, crampy and 10/10 in severity without any relieving factors, worse with food. labs with worsening WCC and lactate elevation. Her diet was gradually advanced with good tolerance and her pain improved. She completed PO vancomycin as recommended from prior admission, when she was found to have positive C.difficile gene but negative toxin ongoing abn labs with persistent raised CRP, From clinic note 07/27 she has ongoing issues with joint pains, numbness and burning in the feet with swelling and pinching sensation chronic right sided mid abdo pain and cramps abn stools, on and off constipation and diarrhea but more diarrhea she has joint pains, in hands, feet, shoulders, improves as day progresses she has morning stiffness she has itching on skin , bruises on her skkin v easily strong Fh of lupus also has headaches, blurred vision RF and CARLOS neg from 2019 I gave a trial of colchicine but she has no benefit after using for about 4 weeks CXR with raised gal dipahragm, but no hilar fullness Hand XR with osteoarthritic changes INTERIM: remains in status quo ongoing issues with abdominal pain seen some blood in stools as well also abn urination A/P: 1/ abdominal pain, polyarthropathy, strong Fh of Lupus she may have crohsn or other CTD--had C diff but f/u testing was negative --capsule negative as well PLAN: 1/ will get stool lactoferrin and if high then trial of budesonide, possibly leading to entyvio 2/ might need rept colonoscopy as well, 3/ check urine PFSH Medical History Essential hypertension Left shoulder pain Type 2 diabetes mellitus Hyperparathyroidism Erosive esophagitis Hypertension Acute diarrhea Pre-op examination Cervical radiculopathy Rash of foot Kiera albicans infection Cervicalgia Environmental allergies Hospital discharge follow-up MARY on CPAP Elevated red blood cell count Screening for hyperlipidemia Chronic pain syndrome Lumbar pain Encounter for annual routine gynecological examination Multiple air fluid levels of small intestine determined by X-ray Abdominal bloating Hypothyroid Sleep apnea Abdominal cramping Edema Anxiety with depression Chronic pain (Unknown) Gastroparesis Left knee pain Hypothyroidism Bilateral shoulder pain Hyperlipidemia LDL goal <70 Degeneration, intervertebral disc, cervical Spondylosis of cervical spine at multiple levels without myelopathy Sleep apnea Renal calculi Incontinence Goiter Disc degeneration, lumbar Spondylosis of lumbar region without myelopathy or radiculopathy Arthropathy of facet joint Insomnia LUDY (generalized anxiety disorder) Moderately severe recurrent major depression Chronic pain syndrome Morbid (severe) obesity due to excess calories Fibromyalgia Small bowel motility disorder Chronic idiopathic constipation Asthma Surgical History History of knee replacement procedure of right knee History of hernia surgery Hx of colonoscopy History of esophagogastroduodenoscopy (EGD) History of cholecystectomy Delivery by section History of hysterectomy Family History Father Past heart attack Anxiety Mother MOF (multiple organ failure) Brother HIV (human immunodeficiency virus infection) Sister Ovarian cancer Lupus Bone cancer Uterine cancer Tumor Daughter Guillain-[place] Sister Lupus History of open heart surgery Family/Other Depression FH: mental illness Maternal Aunt Breast cancer Maternal Aunt Tumor Social History Household Members: None Household Members Other:: Housing: Apartment Are you a primary home care liaison to a significant other at home: No Do you presently have visiting nurse or other home services: Yes Alcohol intake: never Patient Tobacco Use Status: Never used Tobacco e-Cigarette/Vaping Use: Never Used Second Hand Smoke Exposure: Yes Advance Directives Date on File: 12/08/21 service: No Current occupational status: unemployed and disabled Cognitive needs: Yes Hearing needs: No Vision needs: No Telehealth Telehealth Telehealth Platform: Telephone Location of provider rendering services: practice address Location of patient: address on file Patient Identification confirmed using: Name, : Yes Telehealth method: voice only Patient verbally consented to treatment: Yes Patient verbally consented to billing insurance company: Yes Patient informed of any privacy concerns related to visit: Yes Minutes spent on Phone/Video with Pt.: 6 Assessment & Plan Assessment & Plan (1) Abdominal pain: Code(s): R10.9 - Unspecified abdominal pain Category: Medical Qualifiers: Abdominal location: right lower quadrant Qualified Code(s): R10.31 - Right lower quadrant pain Plan: see above Orders: Orders Lactoferrin, Fecal, Quant. Today K51.50 - Left sided colitis without complications Medications: New hyoscyamine sulfate 0.125 mg PO BID-QID PRN 30 tabs 1RF dyspepsia Coding Level of Care Code Tele Est Pt Level 3 (68020) Diagnoses Right lower quadrant abdominal pain R10.31 Abdominal location: right lower quadrant
--- OUTSIDE RECORDS SUMMARY | 2024-11-17 11:05 | XMS_ITS | Patient Health Record ---
Author Organization [facility] Address [address] [place] [address] Care Team Providers Care Counselor Supervisor Name Role Phone Capo BOBBY, Vinod Primary Care Provider Shaquille Sofia [phone] REASON FOR REFERRAL No Information MEDICATIONS Medication [...] Insured Coverage Start Date Coverage End Date [facility] [address] [address] [place], [place] [id number] LUCIANO ALONDRA Self - patient is the insured
== END 2024-11-17 12:14 | disposition home or self-care (01) ==
LOC: HO.HGI 10:14
PROVIDERS: PCP Internal Medicine; Visit Provider Internal Medicine Gastroenterology
DX: K51.50 Left sided colitis without complications (principal); R10.31 Right lower quadrant pain
CPT/HCPCS: 99213

== ENCOUNTER 2024-11-29 20:58 | Emergency (ER) | payer OTHER, SELFPAY ==
--- NOTE | ~2024-11-29 | XR_ITS ---
CLINICAL HISTORY: URI sxs 1 view chest x-ray Comparison: CR/SR - XR CHEST 1V - 08/17/24 16:58 EST Findings: The lungs are clear. Heart size is normal. No acute fracture. IMPRESSION: 1. No acute findings. This document has been electronically signed by: Troy Ibrahim MD on 11/29/2024 22:50:19
--- NOTE | ~2024-11-29 | CT_ITS ---
CLINICAL HISTORY: n v CT abdomen and pelvis with contrast Comparison: CT - CT ABDOMEN PELVIS W IV CON - 11/30/24 00:15 EST Findings: No consolidation or effusion. Unremarkable gallbladder and solid organs. No urolithiasis. No bowel obstruction, pneumoperitoneum, or pneumatosis. Pelvic contents unremarkable. Normal appendix. The bones are intact. IMPRESSION: No acute findings. This document has been electronically signed by: Troy Ibrahim MD on 11/30/2024 01:08:58
[2024-11-29 21:05] VITALS: BP 210/104; PULSE 69; O2SAT 100
--- NOTE | 2024-11-29 22:09 | ECG_ITS ---
Test Reason : URI Blood Pressure : */* mmHG Vent. Rate : 60 BPM Atrial Rate : 61 BPM P-R Int : 132 ms QRS Dur : 78 ms QT Int : 442 ms P-R-T Axes : -13 17 27 degrees QTcB Int : 442 ms Sinus rhythm with marked sinus arrhythmia Otherwise normal ECG When compared with ECG of 17-Aug-2024 15:46, No significant change was found Referred By: Mario Ceron Electronically Signed By: Antonio Espinosa
[2024-11-29 22:12] VITALS: BP 178/75; PULSE 94; RESP 18; TEMP 37.5; O2SAT 99; BMI 41.5
[2024-11-29] MEDS: Ondansetron ODT 4 MG TAB.RAPDIS TRANSLINGU (22:43)
[2024-11-29 23:04] LABS: Basophils Absolute Auto 0.1 X10*3/uL (0.0-0.2); Basophils Percent Auto 0.3 % (0-2); Eosinophils Absolute Auto 0.1 X10*3/uL (0.0-0.4); Eosinophils Percent Auto 0.4 % (0-4); Hematocrit 42.4 % (37.0-47.0); Hemoglobin 13.3 g/dl (12.0-16.0); Imm Gran Abs Auto 0.14 X10*3/uL (0.00-0.03); Imm Gran Pct Auto 0.7 % (0.0-0.4); Lymphocytes Absolute Auto 1.3 X10*3/uL (1.2-4.9); Lymphocytes Percent Auto 6.5 % (20-40); MANUAL DIFF FLAG SCAN; Mean Corpuscular HGB Conc 31.4 g/dl (31.0-35.0); Mean Corpuscular Hemoglobin 23.8 pg (27.0-33.0); Mean Corpuscular Volume 75.8 fL (80.0-98.0); Mean Platelet Volume 10.3 fL (9.4-12.3); Monocytes Absolute Auto 0.4 X10*3/uL (0.1-1.2); Monocytes Percent Auto 1.9 % (2-11); Neutrophils Absolute Auto 17.9 x10*3/uL (2.0-8.3); Neutrophils Percent Auto 90.2 % (45-73); Platelet Count 274 X10*3/uL (160-400); Red Blood Count 5.59 X10*6/uL (4.20-5.50); SCAN SMEAR FLAG 1; White Blood Count 19.8 X10*3/uL (4.8-10.8)
[2024-11-29 23:05] LABS: Appearance Urine Cloudy; Color Urine Yellow; Glucose Urine UA Negative (Negative); Leukocyte Esterase Urine Small (1+) (Negative); Nitrite Urine Negative (Negative); Specific Gravity - Urine 1.025 (1.005-1.025); UMIC TRIGGER UACC YES; Urine Blood Negative (Negative); Urine Ketones 15 mg/dL (Negative); Urine Protein 30 (1+) mg/dL (Neg-Trace)
[2024-11-29 23:18] LABS: Influenza A PCR NEGATIVE (Negative); Influenza B PCR NEGATIVE (Negative); Resp Syncy Virus RNA Qual PCR NEGATIVE (Negative); SARS COV2 PCR INHOUSE NEGATIVE (Negative)
[2024-11-29 23:21] LABS: Alanine Aminotransferase 18 U/L (0-31); Alkaline Phosphatase 112 U/L (39-117); Anion Gap 13 (12-20); Aspartate Amino Transferase 19 U/L (5-31); Bilirubin Direct 0.3 mg/dL (0.0-0.5); Bilirubin Total 0.6 mg/dL (0.0-1.0); Blood Urea Nitrogen 16 mg/dL (9-16); Calcium 9.6 mg/dL (8.4-10.2); Carbon Dioxide 24 mmol/L (22-29); Chloride 106 mmol/L (96-108); Creatinine Clr Calc Pharmacy 112.7; Estimated Glomerular Filt Rate > 60; Glucose Random 182 mg/dL (60-115); Lipase 51 U/L (8-78); Potassium 4.3 mmol/L (3.3-5.1); Sodium 139 mmol/L (135-145); Total Protein 8.5 g/dL (6.5-8.0)
[2024-11-29 23:23] LABS: Lactic Acid 2.2 mmol/L (0.5-2.0)
[2024-11-29 23:26] LABS: SLIDE REVIEW VERIFIED
--- NOTE | 2024-11-29 23:26 | ED.GENADULT ---
HPI - General Adult General Chief complaint: Abdominal Pain Stated complaint: flu like symptoms x3 days, bp 204/104 Time Seen by Provider: 11/29/24 22:07 Source: patient Limitations: no limitations History of Present Illness ED Provider: Jie LEON narrative: A 59-year-old female presenting for nausea vomiting, lightheadedness and abdominal pain. Patient states that she has been experiencing proximally 3 days of nausea and nonbloody nonbilious vomiting. She also endorses few episodes of diarrhea, chills, abdominal pain and today began experiencing lightheadedness. She denies chest pain, shortness of breath. There are multiple sick contacts at home with similar symptoms. Related Data Home Medications ?Medication ?Instructions ?Recorded ?Confirmed lorazepam 1 mg tablet 1 mg PO DAILY PRN ANXIETY 09/11/23 10/26/24 CPAP (CPAP Machine/Device) 03/01/24 10/26/24 nebulizers 03/01/24 10/26/24 bupropion HCl 150 mg 24 hr tablet, 150 mg PO DAILY 07/21/24 10/26/24 extended release gabapentin 300 mg capsule 300 mg PO TID 07/21/24 10/26/24 hydroxyzine HCl 50 mg tablet mg PO 07/21/24 10/26/24 methocarbamol 750 mg tablet 750 mg PO DAILY 07/21/24 10/26/24 paroxetine HCl 30 mg tablet 30 mg PO DAILY 07/21/24 10/26/24 sertraline 50 mg tablet 50 mg PO DAILY 07/21/24 10/26/24 clonazepam 1 mg tablet mg PO 10/26/24 10/26/24 clonidine HCl 0.1 mg tablet mg PO 3XD 11/17/24 Previous Rx's ?Medication ?Instructions ?Recorded bumetanide 1 mg tablet 1 mg PO BID #30 tabs 03/01/24 meclizine 25 mg tablet 25 mg PO DAILY PRN dizziness 90 03/15/24 days #90 tabs glucose 4 gram chewable tablet 16 g (4 x 4 gram) PO Q15M PRN 05/12/24 (Dex4 Glucose) hypoglycemia #100 tabs tizanidine 2 mg tablet 2 mg PO BID muscle spasticity 14 05/30/24 days #28 tabs ear thermometer #6 ea 06/30/24 metoclopramide HCl 10 mg tablet 10 mg PO QID #120 tabs 06/30/24 BP monitor #1 ea 07/12/24 metoprolol succinate 50 mg 50 mg PO DAILY 90 days #90 tabs 07/12/24 tablet,extended release 24 hr blood pressure monitor #1 ea 07/13/24 cholecalciferol (vitamin D3) 50 50 mcg PO DAILY 90 days #90 caps 07/15/24 mcg (2,000 unit) capsule albuterol sulfate 2.5 mg/3 mL 2.5 mg (3 mL) inhalation Q6H PRN 07/20/24 (0.083 %) solution for nebulization shortness of breath or wheezing 30 days #180 mL atorvastatin 10 mg tablet 10 mg PO BEDTIME #90 tabs 08/06/24 levothyroxine 112 mcg tablet 112 mcg PO DAILY@0600 #90 tabs 08/06/24 blood pressure test kit-large #1 ea 08/11/24 clotrimazole 1 % topical cream 1 appl topical BID 4 weeks #45 08/11/24 grams dulaglutide 1.5 mg/0.5 mL 1.5 mg (0.5 mL) subcut QWEEK #2 mL 08/11/24 subcutaneous pen injector ([facility]) ferrous sulfate 325 mg (65 mg 325 mg PO DAILY 90 days #90 tabs 08/11/24 iron) tablet insulin glargine 100 unit/mL (3 15 unit (0.15 mL) subcut QAM #15 mL 08/11/24 mL) subcutaneous pen (Lantus Solostar U-100 Insulin) insulin lispro 100 unit/mL 5 unit (0.05 mL) subcut DAILY #15 08/11/24 subcutaneous pen (Humalog KwikPen mL (U-100) Insulin) pen needle, diabetic 32 gauge x #100 ea 08/11/24/32 (BD Rosario 2nd Gen Pen Needle) recliner #1 ea 08/11/24 fluticasone furoate 200 1 inh inhalation DAILY 30 days #1 08/14/24 mcg-vilanterol 25 mcg/dose ea inhalation powder (Breo Ellipta) sodium,potassium,mag sulfates 17.5 See Rx Instructions PO .COMPLEX 08/14/24 gram-3.13 gram-1.6 gram oral soln #354 mL (Suprep Bowel Prep Kit) blood sugar diagnostic (FreeStyle #100 ea 08/16/24 Test strips) diphenoxylate-atropine 2.5 1 tab PO BID PRN diarrhea #14 tabs 08/30/24 mg-0.025 mg tablet (Lomotil) pantoprazole 40 mg tablet,delayed 40 mg PO BID #180 tabs 09/18/24 release albuterol sulfate 90 mcg/actuation 1 puff PO Q4H PRN for wheezing 30 09/20/24 aerosol inhaler (Ventolin HFA) days #54 ea hydrocortisone 2.5 % topical cream 1 appl TN BID-QID PRN hemorrhoids 10/26/24 with perineal applicator 2 weeks #30 grams magnesium oxide 400 mg (241.3 mg 400 mg PO BEDTIME 90 days #90 tabs 10/26/24 magnesium) tablet triamcinolone acetonide 0.5 % 1 appl topical DAILY 2 weeks #15 10/30/24 topical cream grams docusate sodium 100 mg capsule 100 mg PO .bid #90 caps 11/03/24 (Colace) hydrocortisone 2.5 % topical cream 1 appl TN BID-QID PRN hemorrhoids 11/03/24 with perineal applicator #30 grams (Proctosol HC) hydroxyzine HCl 25 mg tablet 25 mg PO BEDTIME PRN itching 30 11/11/24 days #30 tabs sumatriptan succinate 25 mg tablet 25 mg PO Q2-4H PRN migraine 11/11/24 headache 30 days #9 tabs hyoscyamine sulfate 0.125 mg 0.125 mg PO BID-QID PRN dyspepsia 11/17/24 disintegrating tablet #30 tabs cetirizine 10 mg tablet (All Day 10 mg PO DAILY PRN allergy 11/18/24 Allergy (cetirizine)) symptoms 30 days #30 tabs acetaminophen 650 mg 650 mg PO Q8H PRN arthritis 30 11/27/24 tablet,extended release days #90 tabs rizatriptan 10 mg tablet 10 mg PO Q2-4H PRN migraine 11/27/24 headache 30 days #7 tabs cephalexin 500 mg capsule 500 mg PO TID 5 days #15 caps 11/30/24 ondansetron HCl 4 mg tablet 4 mg PO Q8H PRN nausea and 11/30/24 vomiting 3 days #10 tabs Allergies Allergy/AdvReac Type Severity Reaction Status Date / Time Penicillins Allergy Severe swelling Verified 11/29/24 22:13 adhesive tape [ADHESIVE TAPE] Allergy Intermediate RASH Verified 11/29/24 22:13 amoxicillin [AMOXICILLIN] Allergy Intermediate RASH,SWELLI Verified 11/29/24 22:13 NG ibuprofen [From Motrin] Allergy Intermediate Hypertensio Verified 11/29/24 22:13 n latex Allergy Intermediate Rash Verified 11/29/24 22:13 Review of Systems Review of Systems: Yes all other systems are reviewed and are negative [facility] Past Medical History Medical History Essential hypertension Left shoulder pain Type 2 diabetes mellitus Hyperparathyroidism Erosive esophagitis Hypertension Acute diarrhea Pre-op examination Cervical radiculopathy Rash of foot Kiera albicans infection Cervicalgia Environmental allergies Hospital discharge follow-up MARY on CPAP Elevated red blood cell count Screening for hyperlipidemia Chronic pain syndrome Lumbar pain Encounter for annual routine gynecological examination Multiple air fluid levels of small intestine determined by X-ray Abdominal bloating Hypothyroid Sleep apnea Abdominal cramping Edema Anxiety with depression Chronic pain (Unknown) Gastroparesis Left knee pain Hypothyroidism Bilateral shoulder pain Hyperlipidemia LDL goal <70 Degeneration, intervertebral disc, cervical Spondylosis of cervical spine at multiple levels without myelopathy Sleep apnea Renal calculi Incontinence Goiter Disc degeneration, lumbar Spondylosis of lumbar region without myelopathy or radiculopathy Arthropathy of facet joint Insomnia LUDY (generalized anxiety disorder) Moderately severe recurrent major depression Chronic pain syndrome Morbid (severe) obesity due to excess calories Fibromyalgia Small bowel motility disorder Chronic idiopathic constipation Asthma Surgical History History of knee replacement procedure of right knee History of hernia surgery Hx of colonoscopy History of esophagogastroduodenoscopy (EGD) History of cholecystectomy Delivery by section History of hysterectomy Family History Family History Father Past heart attack Anxiety Mother MOF (multiple organ failure) Brother HIV (human immunodeficiency virus infection) Sister Ovarian cancer Lupus Bone cancer Uterine cancer Tumor Daughter Guillain-Greenwood Sister Lupus History of open heart surgery Family/Other Depression FH: mental illness Maternal Aunt Breast cancer Maternal Aunt Tumor Social History Social History Household Members: None Household Members Other:: Housing: Apartment Are you a primary in home caregiver to a significant other at home: No Do you presently have visiting nurse or other home services: Yes Alcohol intake: never Patient Tobacco Use Status: Never used Tobacco e-Cigarette/Vaping Use: Never Used Second Hand Smoke Exposure: Yes Advance Directives: Yes Advance Directives on File: Yes Advance Directives Date on File: 12/08/21 service: No Current occupational status: unemployed and disabled Cognitive needs: Yes Hearing needs: No Vision needs: No Physical Exam ED Vital Signs: Vital Signs - 24 hr 11/29/24 22:12 Temperature 99.5 F Pulse Rate 94 Respiratory Rate 18 Blood Pressure 178/75 H Pulse Oximetry 99 Oxygen Delivery Method Room Air BMI result Body Mass Index 41.5 Well-appearing female in no acute distress Head normocephalic and atraumatic; no midline C-spine tenderness palpation Alert and oriented x4; normal speech and cognition; no focal neurologic deficits appreciated Lungs clear to auscultation bilaterally Normal S1-S2 regular rate rhythm Abdomen is soft, nondistended with diffuse tenderness to palpation Medications Administered Discontinued Medications Generic Name Dose Route Start Last Admin Trade Name Freq PRN Reason Stop Dose Admin Sodium Chloride 1,000 mls @ 999 mls/hr 11/29/24 23:30 11/30/24 01:49 Ns IV 11/30/24 00:30 Infused .Q1H1M RADHA Infusion Iohexol 85 ml 11/30/24 00:26 11/30/24 00:28 Iohexol 350 Mg/Ml 100 Ml Infus..Btl IV 11/30/24 00:27 85 ml ONCE ONE Administration Metoclopramide HCl 5 mg 11/30/24 01:11 11/30/24 01:47 Metoclopramide Hcl 10 Mg/2 Ml Vial IVPUSH 11/30/24 01:12 5 mg ONCE ONE Administration Morphine Sulfate 2 mg 11/29/24 23:57 11/30/24 00:14 Morphine Sulfate 2 Mg/Ml Cartridge IVPUSH 11/29/24 23:58 2 mg ONCE ONE Administration Protocol Ondansetron HCl 4 mg 11/29/24 22:36 11/29/24 22:43 Ondansetron Odt 4 Mg Tab.Rapdis TRANSLINGU 11/29/24 22:37 4 mg ONCE ONE Administration Ondansetron HCl 4 mg 11/29/24 23:46 11/29/24 23:52 Ondansetron Hcl 4 Mg/2 Ml Vial IVPUSH 11/29/24 23:47 4 mg ONCE ONE Administration Medical Decision Making Medical Decision Making [facility] Narrative: 59-year-old female presenting for nausea, vomiting abdominal pain - concerned for a gastroenteritis however I am also considering pancreatitis, biliary disease, obstruction, COVID, flu -labs and imaging studies ordered Lab and imaging interpretation: -negative viral swabs -no signs of ischemia appreciated patient's ECG -leukocytosis of 19, stable H&H, lactate of 2.2 -I reviewed patient's CT and did not appreciate signs of enteritis; the Radiology impression reads no acute findings -UA moderately suspicious for UTI. Given patient's systemic symptoms and elevated white count I will treat with ceftriaxone Ceftriaxone ordered a Keflex prescription sent to patient's pharmacy Patient is still pending optimization. She is nontoxic appearing. I would suspect that she will be able to be discharged home however fluids are running. Improvement in lactic acid Final troponin and po trial pending Patient signed out to overnight attending Lab Data 11/29/24 22:58 11/29/24 22:58 Labs: Lab Results 11/29/24 11/29/24 11/29/24 Range/Units 22:17 22:53 22:58 WBC 19.8 H (4.8-10.8) X10*3/uL RBC 5.59 H (4.20-5.50) X10*6/uL Hgb 13.3 (12.0-16.0) g/dl Hct 42.4 (37.0-47.0) % MCV 75.8 L (80.0-98.0) fL MCH 23.8 L (27.0-33.0) pg MCHC 31.4 (31.0-35.0) g/dl RDW 18.0 H (11.0-16.0) % Plt Count 274 (160-400) X10*3/uL MPV 10.3 (9.4-12.3) fL Immature Gran % (Auto) 0.7 H (0.0-0.4) % Neut % (Auto) 90.2 H (45-73) % Lymph % (Auto) 6.5 L (20-40) % Robertson % (Auto) 1.9 L (2-11) % Eos % (Auto) 0.4 (0-4) % Baso % (Auto) 0.3 (0-2) % Lymph # (Auto) 1.3 (1.2-4.9) X10*3/uL Robertson # (Auto) 0.4 (0.1-1.2) X10*3/uL Eos # (Auto) 0.1 (0.0-0.4) X10*3/uL Baso # (Auto) 0.1 (0.0-0.2) X10*3/uL Abs Immat Gran (auto) 0.14 H (0.00-0.03) X10*3/uL Absolute Neuts (auto) 17.9 H (2.0-8.3) x10*3/uL Absolute Nucleated RBC 0.000 (0.0-0.012) X10*3/uL Nucleated RBC % (auto) 0.0 (0.0-0.2) /100WBC Smear Tech's Comments VERIFIED Sodium 139 (135-145) mmol/L Potassium 4.3 (3.3-5.1) mmol/L Chloride 106 (96-108) mmol/L Carbon Dioxide 24 (22-29) mmol/L Anion Gap 13 (12-20) BUN 16 (9-16) mg/dL Creatinine 0.73 (0.5-1.4) mg/dL Estim Creat Clear Calc 112.7 Estimated GFR > 60 Random Glucose 182 H (60-115) mg/dL Lactic Acid 2.2 H* (0.5-2.0) mmol/L Lactic Acid F/U @ 2Hr (0.5-2.0) mmol/L Calcium 9.6 (8.4-10.2) mg/dL Phosphorus 2.2 L (2.7-4.5) mg/dL Magnesium 1.9 (1.6-2.6) mg/dL Total Bilirubin 0.6 (0.0-1.0) mg/dL Direct Bilirubin 0.3 (0.0-0.5) mg/dL AST 19 (5-31) U/L ALT 18 (0-31) U/L Alkaline Phosphatase 112 (39-117) U/L Troponin I High Sens (<3.5-17.0) ng/L Total Protein 8.5 H (6.5-8.0) g/dL Albumin 4.0 (3.5-5.0) g/dL Lipase 51 (8-78) U/L Urine Color Yellow Urine Appearance Cloudy Urine pH 7.0 (5.0-9.0) Ur Specific [place] 1.025 (1.005-1.025) Urine Protein 30 (1+) H (Neg-Trace) mg/dL Urine Glucose (UA) Negative (Negative) mg/dL Urine Ketones 15 (Negative) mg/dL Urine Blood Negative (Negative) Urine Nitrite Negative (Negative) Ur Leukocyte Esterase Small (1+) H (Negative) Urine RBC 0-2 (0-2) /HPF Urine WBC 21-50 H (0-5) /HPF Ur Squamous Epith Cells 6-10 (0-2) /HPF Urine Bacteria 1+ (None Seen) Hyaline Casts 0-2 (0-2) /LPF Influenza Type A (PCR) NEGATIVE (Negative) Influenza Type B (PCR) NEGATIVE (Negative) RSV RNA Qual (PCR) NEGATIVE (Negative) SARS-CoV-2 RNA (RT-PCR) NEGATIVE (Negative) 11/30/24 11/30/24 Range/Units 00:20 01:16 WBC (4.8-10.8) X10*3/uL RBC (4.20-5.50) X10*6/uL Hgb (12.0-16.0) g/dl Hct (37.0-47.0) % MCV (80.0-98.0) fL MCH (27.0-33.0) pg MCHC (31.0-35.0) g/dl RDW (11.0-16.0) % Plt Count (160-400) X10*3/uL MPV (9.4-12.3) fL Immature Gran % (Auto) (0.0-0.4) % Neut % (Auto) (45-73) % Lymph % (Auto) (20-40) % Robertson % (Auto) (2-11) % Eos % (Auto) (0-4) % Baso % (Auto) (0-2) % Lymph # (Auto) (1.2-4.9) X10*3/uL Robertson # (Auto) (0.1-1.2) X10*3/uL Eos # (Auto) (0.0-0.4) X10*3/uL Baso # (Auto) (0.0-0.2) X10*3/uL Abs Immat Gran (auto) (0.00-0.03) X10*3/uL Absolute Neuts (auto) (2.0-8.3) x10*3/uL Absolute Nucleated RBC (0.0-0.012) X10*3/uL Nucleated RBC % (auto) (0.0-0.2) /100WBC Smear Tech's Comments Sodium (135-145) mmol/L Potassium (3.3-5.1) mmol/L Chloride (96-108) mmol/L Carbon Dioxide (22-29) mmol/L Anion Gap (12-20) BUN (9-16) mg/dL Creatinine (0.5-1.4) mg/dL Estim Creat Clear Calc Estimated GFR Random Glucose (60-115) mg/dL Lactic Acid (0.5-2.0) mmol/L Lactic Acid F/U @ 2Hr 1.9 (0.5-2.0) mmol/L Calcium (8.4-10.2) mg/dL Phosphorus (2.7-4.5) mg/dL Magnesium (1.6-2.6) mg/dL Total Bilirubin (0.0-1.0) mg/dL Direct Bilirubin (0.0-0.5) mg/dL AST (5-31) U/L ALT (0-31) U/L Alkaline Phosphatase (39-117) U/L Troponin I High Sens < 2.7 (<3.5-17.0) ng/L Total Protein (6.5-8.0) g/dL Albumin (3.5-5.0) g/dL Lipase (8-78) U/L Urine Color Urine Appearance Urine pH (5.0-9.0) Ur Specific [place] (1.005-1.025) Urine Protein (Neg-Trace) mg/dL Urine Glucose (UA) (Negative) mg/dL Urine Ketones (Negative) mg/dL Urine Blood (Negative) Urine Nitrite (Negative) Ur Leukocyte Esterase (Negative) Urine RBC (0-2) /HPF Urine WBC (0-5) /HPF Ur Squamous Epith Cells (0-2) /HPF Urine Bacteria (None Seen) Hyaline Casts (0-2) /LPF Influenza Type A (PCR) (Negative) Influenza Type B (PCR) (Negative) RSV RNA Qual (PCR) (Negative) SARS-CoV-2 RNA (RT-PCR) (Negative) Discharge Plan Discharge Clinical Impression: Nausea, Abdominal pain Patient Disposition: Still a Patient Prescriptions: New cephalexin 500 mg capsule 500 mg PO TID 5 Days Qty: 15 0RF ondansetron HCl 4 mg tablet 4 mg PO Q8H PRN (Reason: nausea and vomiting) 3 Days Qty: 10 0RF No Action meclizine 25 mg tablet 25 mg PO DAILY PRN (Reason: dizziness) 90 Days Qty: 90 0RF tizanidine 2 mg tablet 2 mg PO BID 14 Days Qty: 28 0RF (DME) ear thermometer Misc See Rx Instructions .Route Qty: 6 0RF Rx Instructions: As directed metoclopramide HCl 10 mg tablet 10 mg PO QID Qty: 120 1RF metoprolol succinate 50 mg tablet extended release 24 hr 50 mg PO DAILY 90 Days Qty: 90 1RF (DME) BP monitor large See Rx Instructions .Route .MEDSUPPLY Qty: 1 0RF Rx Instructions: As directed (DME) blood pressure monitor Kit See Rx Instructions .Route Qty: 1 0RF Rx Instructions: Use as needed cholecalciferol (vitamin D3) 50 mcg (2,000 unit) capsule 50 mcg PO DAILY 90 Days Qty: 90 1RF albuterol sulfate 2.5 mg /3 mL (0.083 %) solution for nebulization 2.5 mg inhalation Q6H PRN (Reason: shortness of breath or wheezing) 30 Days Qty: 180 11RF atorvastatin 10 mg tablet 10 mg PO BEDTIME Qty: 90 1RF levothyroxine 112 mcg tablet 112 mcg PO DAILY@0600 Qty: 90 1RF ferrous sulfate 325 mg (65 mg iron) tablet 325 mg PO DAILY 90 Days Qty: 90 1RF (DME) blood pressure test kit-large Kit See Rx Instructions .ROUTE .MEDSUPPLY Qty: 1 0RF Rx Instructions: As directed (DME) recliner See Rx Instructions .Route .MEDSUPPLY Qty: 1 0RF Rx Instructions: As directed fluticasone furoate-vilanterol [Breo Ellipta] 200-25 mcg/dose blister with device 1 inh inhalation DAILY 30 Days Qty: 1 0RF sodium,potassium,mag sulfates [Suprep Bowel Prep Kit] 17.5-3.13-1.6 gram recon soln See Rx Instructions PO .COMPLEX Qty: 354 0RF Rx Instructions: DILUTE; drink full amount early evening before AND next morning at least 2 hr before procedure; follow w 960 mL water PO (DME) FreeStyle Test Strip See Rx Instructions .Route Qty: 100 3RF Rx Instructions: Use 1 test strip once a day diphenoxylate-atropine [Lomotil] 2.5-0.025 mg tablet 1 tab PO BID PRN (Reason: diarrhea) Qty: 14 0RF pantoprazole 40 mg tablet,delayed release (DR/EC) 40 mg PO BID Qty: 180 2RF albuterol sulfate [Ventolin HFA] 90 mcg/actuation HFA aerosol inhaler 1 puff PO Q4H PRN (Reason: for wheezing) 30 Days Qty: 54 1RF triamcinolone acetonide 0.5 % cream 1 appl topical DAILY 14 Days Qty: 15 0RF hydrocortisone [Proctosol HC] 2.5 % cream with perineal applicator 1 appl TN BID-QID PRN (Reason: hemorrhoids) Qty: 30 0RF docusate sodium [Colace] 100 mg capsule 100 mg PO .bid Qty: 90 1RF sumatriptan succinate 25 mg tablet 25 mg PO Q2-4H PRN (Reason: migraine headache) 30 Days Qty: 9 0RF Rx Instructions: do not exceed 8 doses per 24 hrs hydroxyzine HCl 25 mg tablet 25 mg PO BEDTIME PRN (Reason: itching) 30 Days Qty: 30 0RF cetirizine [All Day Allergy (cetirizine)] 10 mg tablet 10 mg PO DAILY PRN (Reason: allergy symptoms) 30 Days Qty: 30 0RF acetaminophen 650 mg tablet extended release 650 mg PO Q8H PRN (Reason: arthritis) 30 Days Qty: 90 1RF rizatriptan 10 mg tablet 10 mg PO Q2-4H PRN (Reason: migraine headache) 30 Days Qty: 7 2RF Rx Instructions: do not exceed 3 doses per 24 hrs lorazepam 1 mg tablet 1 mg PO DAILY PRN (Reason: ANXIETY) clotrimazole 1 % cream 1 appl topical BID 28 Days Qty: 45 3RF insulin lispro [Humalog KwikPen Insulin] 100 unit/mL insulin pen 5 unit subcut DAILY Qty: 15 3RF Rx Instructions: with supper insulin glargine [Lantus Solostar U-100 Insulin] 100 unit/mL (3 mL) insulin pen 15 unit subcut QAM Qty: 15 3RF (DME) pen needle, diabetic [BD Rosario 2nd Gen Pen Needle] 32 gauge x 5/32 needle See Rx Instructions .Route Qty: 100 3RF Rx Instructions: use 2x daily As directed Trulicity 1.5 mg/0.5 mL pen injector 1.5 mg subcut QWEEK Qty: 2 6RF (DME) nebulizers Kit See Rx Instructions .Route Rx Instructions: As directed (DME) CPAP Machine/Device Device See Rx Instructions .Route Rx Instructions: As directed bumetanide 1 mg tablet 1 mg PO BID Qty: 30 6RF glucose [Dex4 Glucose] 4 gram tablet,chewable 16 g PO Q15M PRN (Reason: hypoglycemia) Qty: 100 0RF Rx Instructions: until symptoms of low blood sugar are controlled hydroxyzine HCl 50 mg tablet PO methocarbamol 750 mg tablet 750 mg PO DAILY paroxetine HCl 30 mg tablet 30 mg PO DAILY gabapentin 300 mg capsule 300 mg PO TID sertraline 50 mg tablet 50 mg PO DAILY bupropion HCl 150 mg tablet extended release 24 hr 150 mg PO DAILY clonidine HCl 0.1 mg tablet PO 3XD hyoscyamine sulfate 0.125 mg tablet,disintegrating 0.125 mg PO BID-QID PRN (Reason: dyspepsia) Qty: 30 1RF clonazepam 1 mg tablet PO magnesium oxide 400 mg (241.3 mg magnesium) tablet 400 mg PO BEDTIME 90 Days Qty: 90 0RF hydrocortisone 2.5 % cream with perineal applicator 1 appl TN BID-QID PRN (Reason: hemorrhoids) 14 Days Qty: 30 1RF Print Language: Citizen [place]
[2024-11-29 23:32] LABS: Bacteria Urine 1+ (None Seen); Hyaline Casts Urine 0-2 /LPF (0-2); RBC Urine 0-2 /HPF (0-2); UACC Culture Trigger YES; WBC Urine 21-50 /HPF (0-5)
[2024-11-29] MEDS: 0.9 % Sodium Chloride 1,000 ML 999 ML IV (23:49)
[2024-11-29] MEDS: ondansetron HCL 4 MG/2 ML VIAL IVPUSH (23:52)
[2024-11-30] MEDS: Morphine Sulfate 2 MG/ML CARTRIDGE IVPUSH (00:14)
[2024-11-30] MEDS: iohexoL 350 MG/ML 100 ML INFUS..BTL 85 ML IV (00:28)
[2024-11-30 00:50] LABS: Troponin-I High Sensitivity < 2.7 ng/L (<3.5-17.0)
[2024-11-30 01:01] LABS: Reflex Lactate? Lactic Acid Added
[2024-11-30 01:38] LABS: ~Lactic Acid-LAB USE ONLY 1.9 mmol/L (0.5-2.0)
[2024-11-30 01:38] LABS: Magnesium 1.9 mg/dL (1.6-2.6); Phosphorus 2.2 mg/dL (2.7-4.5)
[2024-11-30] MEDS: Metoclopramide HCl 10 MG/2 ML VIAL 5 MG IVPUSH (01:47)
[2024-11-30 01:54] VITALS: BP 177/78; PULSE 88; RESP 16; TEMP 37.1; O2SAT 97
[2024-11-30] MEDS: 0.9 % Sodium Chloride 500 ML IV (02:10)
[2024-11-30 02:19] LABS: Troponin-I High Sensitivity < 2.7 ng/L (<3.5-17.0)
[2024-11-30] MEDS: cefTRIAXone sodium 1 GM VIAL IVPUSH (03:01)
[2024-11-30 03:16] VITALS: BP 177/78; PULSE 88; RESP 16; TEMP 37.1; O2SAT 97
== END 2024-11-30 03:18 | disposition home or self-care (01) ==
PROVIDERS: Student in an Organized Health Care Education/Training Program; Emergency Provider Emergency Medicine; PCP Internal Medicine
DX: R10.9 Unspecified abdominal pain (principal); R11.2 Nausea with vomiting, unspecified; I10 Essential (primary) hypertension; E11.9 Type 2 diabetes mellitus without complications; E78.5 Hyperlipidemia, unspecified; E03.9 Hypothyroidism, unspecified; J45.909 Unspecified asthma, uncomplicated; Z03.818 Encounter for observation for suspected exposure to other biological agents ruled out
CPT/HCPCS: 0241U; 36415; 71045; 74177; 80048; 80076; 81001; 83605; 83690; 83735; 84100; 84484; 85025; 87086; 93005; 96361; 96374; 96375; 99284; J0696; J2270; J2405; J2765; Q9967

== ENCOUNTER → 2024-11-29 22:08 | Outpatient (BNV) | payer OTHER, SELFPAY | PROVIDERS: Emergency Provider Student in an Organized Health Care Education/Training Program; PCP Internal Medicine; Visit Provider Radiology Diagnostic Radiology | DX: J06.9 Acute upper respiratory infection, unspecified (principal) | CPT/HCPCS: 71045 ==

== ENCOUNTER → 2024-11-29 22:09 | Outpatient (BNV) | payer OTHER, SELFPAY | PROVIDERS: Emergency Provider Emergency Medicine; PCP Internal Medicine; Visit Provider Internal Medicine Cardiovascular Disease | DX: I49.8 Other specified cardiac arrhythmias (principal); J06.9 Acute upper respiratory infection, unspecified | CPT/HCPCS: 93010 ==

== ENCOUNTER → 2024-11-30 | Outpatient (BNV) | payer OTHER, SELFPAY | PROVIDERS: Emergency Provider Emergency Medicine; PCP Internal Medicine; Visit Provider Radiology Diagnostic Radiology | DX: R11.2 Nausea with vomiting, unspecified (principal) | CPT/HCPCS: 74177 ==

== ENCOUNTER 2024-12-01 00:43 | Observation (INO) | payer OTHER, SELFPAY ==
[2024-12-01] VITALS (10 sets, daily range): BP systolic 76–179; BP diastolic 46–91; PULSE 63–98; RESP 16–20; TEMP 36–37.3; O2SAT 92–96; BMI 40.4
--- NOTE | ~2024-12-01 | XR_ITS ---
CLINICAL HISTORY: chest pain 1 view chest x-ray Comparison: CR - XR CHEST 1V - 11/29/24 22:27 EST Findings: Low lung volumes. No consolidation or effusion. Elevated right hemidiaphragm unchanged. Heart size is normal. No acute fracture. IMPRESSION: 1. No acute findings. This document has been electronically signed by: Pam Parham MD on 12/01/2024 02:29:54
--- NOTE | ~2024-12-01 | MR_ITS ---
EXAMINATION: MR BRAIN WITHOUT CONTRAST CLINICAL INFORMATION: Vertigo with blurring of the vision COMPARISON: No prior MRI. CT head dated 01/06/2023. TECHNIQUE: MRI of the brain was obtained using routine sequences without contrast. Examination performed on a high-field 1.5 Lyn Siemens magnet. Standard department protocol. FINDINGS: There is no diffusion restriction. There is no intracranial hemorrhage, acute infarction, mass effect, or edema. Ventricles, sulci, and cisterns are normal in size and configuration for patient age. No shift of midline. No abnormal hemosiderin deposition is identified. There are a few scattered punctate and minimally confluent foci of white matter T2 hyperintensity in the periventricular, subcortical, and hemispheric deep white matter, nonspecific. These statistically are most likely on the basis of mild small vessel ischemic changes. Midline structures appear normally formed. The pituitary gland appears normal. Posterior fossa structures appear normal. Cerebellar tonsils are appropriately located. Major flow voids are preserved within the skull base. The globes and orbital contents demonstrate no abnormalities. Paranasal sinuses are clear bilaterally The mastoids and tympanic cavities are normally aerated. Extracranial soft tissues demonstrate no abnormalities. No suspicious bone marrow changes are evident. Atlantoaxial joint is normal. MR/MR head/brain wo con IMPRESSION: 1. No evidence of intracranial hemorrhage, acute infarction, mass effect, or edema. 2. A few scattered nonspecific white matter foci, statistically most likely access services representative of microangiopathic changes. Electronically signed by: Sea Wilder MD 12/01/2024 01:25 PM [facility]
--- NOTE | 2024-12-01 00:45 | ECG_ITS ---
Test Reason : CHEST PAIN Blood Pressure : */* mmHG Vent. Rate : 70 BPM Atrial Rate : 70 BPM P-R Int : 126 ms QRS Dur : 82 ms QT Int : 410 ms P-R-T Axes : 6 8 31 degrees QTcB Int : 442 ms Normal sinus rhythm with sinus arrhythmia Minimal voltage criteria for LVH, may be normal variant ( Sam product ) Nonspecific ST abnormality Abnormal ECG When compared with ECG of 29-Nov-2024 22:18, Nonspecific T wave abnormality no longer evident in Anterior leads Referred By: Generic ED Physician Electronically Signed By: Antonio Espinosa
--- NOTE | 2024-12-01 00:55 | PC.NURSE ---
ekg done labs drawn and pt was taken by rad for chest xray.
[2024-12-01 01:40] LABS: Basophils Absolute Auto 0.1 X10*3/uL (0.0-0.2); Basophils Percent Auto 0.3 % (0-2); Hematocrit 46.2 % (37.0-47.0); Hemoglobin 14.3 g/dl (12.0-16.0); Imm Gran Abs Auto 0.19 X10*3/uL (0.00-0.03); Imm Gran Pct Auto 0.7 % (0.0-0.4); Lymphocytes Percent Auto 7.1 % (20-40); MANUAL DIFF FLAG SCAN; Mean Corpuscular Hemoglobin 23.3 pg (27.0-33.0); Mean Corpuscular Volume 75.2 fL (80.0-98.0); Mean Platelet Volume 10.4 fL (9.4-12.3); Monocytes Percent Auto 3.8 % (2-11); Neutrophils Absolute Auto 24.2 x10*3/uL (2.0-8.3); Neutrophils Percent Auto 88.1 % (45-73); Platelet Count 322 X10*3/uL (160-400); Red Blood Count 6.14 X10*6/uL (4.20-5.50); Red Cell Distribution Width 18.9 % (11.0-16.0); SCAN SMEAR FLAG 1; White Blood Count 27.4 X10*3/uL (4.8-10.8)
[2024-12-01 01:43] LABS: SLIDE REVIEW VERIFIED
[2024-12-01 01:45] LABS: Anion Gap 17 (12-20); Blood Urea Nitrogen 16 mg/dL (9-16); Calcium 10.1 mg/dL (8.4-10.2); Carbon Dioxide 26 mmol/L (22-29); Chloride 101 mmol/L (96-108); Creatinine Clr Calc Pharmacy 101.2; Estimated Glomerular Filt Rate > 60; Glucose Random 144 mg/dL (60-115); Potassium 3.7 mmol/L (3.3-5.1); Sodium 140 mmol/L (135-145)
[2024-12-01 01:52] LABS: Troponin-I High Sensitivity 8.8 ng/L (<3.5-17.0)
--- NOTE | 2024-12-01 02:52 | ED.CHESTPAIN ---
HPI - Chest Pain General Chief Complaint: Chest Pain Stated Complaint: Chest Pain Time Seen by Provider: 12/01/24 02:45 Source: patient and EMS Mode of arrival: EMS Limitations: no limitations History of Present Illness ED Provider: DR. Steward HPI narrative: 59-year-old female was pertinent history of essential hypertension, mixed hyperlipidemia, mood disorder, insulin-dependent DM, hypothyroidism, GERD, CHF with preserved ejection fracture, MARY on CPAP, history of asthma requiring no supplemental oxygen came to the emergency department for evaluation of nausea, vomiting, diarrhea feeling dizzy, and chest pain since yesterday. Patient is also complaining of lower abdominal pain, +exposure to family member sick contacts, +nausea +vomiting. Patient was seen yesterday for similar symptoms head CT abdomen and pelvis with no acute pathology. Related Data Home Medications ?Medication ?Instructions ?Recorded ?Confirmed lorazepam 1 mg tablet 1 mg PO DAILY PRN ANXIETY 09/11/23 10/26/24 CPAP (CPAP Machine/Device) 03/01/24 10/26/24 nebulizers 03/01/24 10/26/24 bupropion HCl 150 mg 24 hr tablet, 150 mg PO DAILY 07/21/24 10/26/24 extended release gabapentin 300 mg capsule 300 mg PO TID 07/21/24 10/26/24 hydroxyzine HCl 50 mg tablet mg PO 07/21/24 10/26/24 methocarbamol 750 mg tablet 750 mg PO DAILY 07/21/24 10/26/24 paroxetine HCl 30 mg tablet 30 mg PO DAILY 07/21/24 10/26/24 sertraline 50 mg tablet 50 mg PO DAILY 07/21/24 10/26/24 clonazepam 1 mg tablet mg PO 10/26/24 10/26/24 clonidine HCl 0.1 mg tablet mg PO 3XD 11/17/24 Previous Rx's ?Medication ?Instructions ?Recorded bumetanide 1 mg tablet 1 mg PO BID #30 tabs 03/01/24 meclizine 25 mg tablet 25 mg PO DAILY PRN dizziness 90 03/15/24 days #90 tabs glucose 4 gram chewable tablet 16 g (4 x 4 gram) PO Q15M PRN 05/12/24 (Dex4 Glucose) hypoglycemia #100 tabs tizanidine 2 mg tablet 2 mg PO BID muscle spasticity 14 05/30/24 days #28 tabs ear thermometer #6 ea 06/30/24 metoclopramide HCl 10 mg tablet 10 mg PO QID #120 tabs 06/30/24 BP monitor #1 ea 07/12/24 metoprolol succinate 50 mg 50 mg PO DAILY 90 days #90 tabs 07/12/24 tablet,extended release 24 hr blood pressure monitor #1 ea 07/13/24 cholecalciferol (vitamin D3) 50 50 mcg PO DAILY 90 days #90 caps 07/15/24 mcg (2,000 unit) capsule albuterol sulfate 2.5 mg/3 mL 2.5 mg (3 mL) inhalation Q6H PRN 07/20/24 (0.083 %) solution for nebulization shortness of breath or wheezing 30 days #180 mL atorvastatin 10 mg tablet 10 mg PO BEDTIME #90 tabs 08/06/24 levothyroxine 112 mcg tablet 112 mcg PO DAILY@0600 #90 tabs 08/06/24 blood pressure test kit-large #1 ea 08/11/24 clotrimazole 1 % topical cream 1 appl topical BID 4 weeks #45 08/11/24 grams dulaglutide 1.5 mg/0.5 mL 1.5 mg (0.5 mL) subcut QWEEK #2 mL 08/11/24 subcutaneous pen injector ([facility]) ferrous sulfate 325 mg (65 mg 325 mg PO DAILY 90 days #90 tabs 08/11/24 iron) tablet insulin glargine 100 unit/mL (3 15 unit (0.15 mL) subcut QAM #15 mL 08/11/24 mL) subcutaneous pen (Lantus Solostar U-100 Insulin) insulin lispro 100 unit/mL 5 unit (0.05 mL) subcut DAILY #15 08/11/24 subcutaneous pen (Humalog KwikPen mL (U-100) Insulin) pen needle, diabetic 32 gauge x #100 ea 08/11/24 (BD Rosario 2nd Gen Pen Needle) recliner #1 ea 08/11/24 fluticasone furoate 200 1 inh inhalation DAILY 30 days #1 08/14/24 mcg-vilanterol 25 mcg/dose ea inhalation powder (Breo Ellipta) sodium,potassium,mag sulfates 17.5 See Rx Instructions PO .COMPLEX 08/14/24 gram-3.13 gram-1.6 gram oral soln #354 mL (Suprep Bowel Prep Kit) blood sugar diagnostic (FreeStyle #100 ea 08/16/24 Test strips) diphenoxylate-atropine 2.5 1 tab PO BID PRN diarrhea #14 tabs 08/30/24 mg-0.025 mg tablet (Lomotil) pantoprazole 40 mg tablet,delayed 40 mg PO BID #180 tabs 09/18/24 release albuterol sulfate 90 mcg/actuation 1 puff PO Q4H PRN for wheezing 30 09/20/24 aerosol inhaler (Ventolin HFA) days #54 ea hydrocortisone 2.5 % topical cream 1 appl RI BID-QID PRN hemorrhoids 10/26/24 with perineal applicator 2 weeks #30 grams magnesium oxide 400 mg (241.3 mg 400 mg PO BEDTIME 90 days #90 tabs 10/26/24 magnesium) tablet triamcinolone acetonide 0.5 % 1 appl topical DAILY 2 weeks #15 10/30/24 topical cream grams docusate sodium 100 mg capsule 100 mg PO .bid #90 caps 11/03/24 (Colace) hydrocortisone 2.5 % topical cream 1 appl RI BID-QID PRN hemorrhoids 11/03/24 with perineal applicator #30 grams (Proctosol HC) hydroxyzine HCl 25 mg tablet 25 mg PO BEDTIME PRN itching 30 11/11/24 days #30 tabs sumatriptan succinate 25 mg tablet 25 mg PO Q2-4H PRN migraine 11/11/24 headache 30 days #9 tabs hyoscyamine sulfate 0.125 mg 0.125 mg PO BID-QID PRN dyspepsia 11/17/24 disintegrating tablet #30 tabs cetirizine 10 mg tablet (All Day 10 mg PO DAILY PRN allergy 11/18/24 Allergy (cetirizine)) symptoms 30 days #30 tabs acetaminophen 650 mg 650 mg PO Q8H PRN arthritis 30 11/27/24 tablet,extended release days #90 tabs rizatriptan 10 mg tablet 10 mg PO Q2-4H PRN migraine 11/27/24 headache 30 days #7 tabs acetaminophen 500 mg tablet 500 mg PO Q6H PRN fever or pain 11/30/24 #20 tabs cephalexin 500 mg capsule 500 mg PO TID 5 days #15 caps 11/30/24 ondansetron HCl 4 mg tablet 4 mg PO Q8H PRN nausea and 11/30/24 vomiting 3 days #10 tabs Allergies Allergy/AdvReac Type Severity Reaction Status Date / Time Penicillins Allergy Severe swelling Verified 12/01/24 01:05 adhesive tape [ADHESIVE TAPE] Allergy Intermediate RASH Verified 12/01/24 01:05 amoxicillin [AMOXICILLIN] Allergy Intermediate RASH,SWELLI Verified 12/01/24 01:05 NG ibuprofen [From Motrin] Allergy Intermediate Hypertensio Verified 12/01/24 01:05 n latex Allergy Intermediate Rash Verified 12/01/24 01:05 Review of Systems Review of Systems: All other systems are reviewed and are negative Constitutional: Reports as per HPI and Reports no additional constitutional complaints Eyes: Reports as per HPI and Reports no additional eye complaints Reports system reviewed and no additional complaints, except as documented Cardiovascular: Reports as per HPI and Reports no additional cardiovascular complaints Respiratory: Reports as per HPI and Reports no additional respiratory complaints Gastrointestinal: Reports as per HPI and Reports no additional gastrointestinal complaints Genitourinary: Reports no additional female genitourinary complaints Musculoskeletal: Reports no additional musculoskeletal complaints Skin/Breast: Reports system reviewed and no additional complaints, except as docu Psychiatric: Reports no additional psychiatric complaints Endocrine: Reports no additional endocrine complaints Hematologic/Lymphatic: Reports no additional hematologic/lymphatic complaints Allergic/Immunologic: Reports no additional allergic/immunologic complaints Reports system reviewed and no additional complaints, except as documented and Reports Abnormal speech present PMFSH Past Medical History Medical History Essential hypertension Left shoulder pain Type 2 diabetes mellitus Hyperparathyroidism Erosive esophagitis Hypertension Acute diarrhea Pre-op examination Cervical radiculopathy Rash of foot Kiera albicans infection Cervicalgia Environmental allergies Hospital discharge follow-up MARY on CPAP Elevated red blood cell count Screening for hyperlipidemia Chronic pain syndrome Lumbar pain Encounter for annual routine gynecological examination Multiple air fluid levels of small intestine determined by X-ray Abdominal bloating Hypothyroid Sleep apnea Abdominal cramping Edema Anxiety with depression Chronic pain (Unknown) Gastroparesis Left knee pain Hypothyroidism Bilateral shoulder pain Hyperlipidemia LDL goal <70 Degeneration, intervertebral disc, cervical Spondylosis of cervical spine at multiple levels without myelopathy Sleep apnea Renal calculi Incontinence Goiter Disc degeneration, lumbar Spondylosis of lumbar region without myelopathy or radiculopathy Arthropathy of facet joint Insomnia LUDY (generalized anxiety disorder) Moderately severe recurrent major depression Chronic pain syndrome Morbid (severe) obesity due to excess calories Fibromyalgia Small bowel motility disorder Chronic idiopathic constipation Asthma Surgical History History of knee replacement procedure of right knee History of hernia surgery Hx of colonoscopy History of esophagogastroduodenoscopy (EGD) History of cholecystectomy Delivery by section History of hysterectomy Family History Family History Father Past heart attack Anxiety Mother MOF (multiple organ failure) Brother HIV (human immunodeficiency virus infection) Sister Ovarian cancer Lupus Bone cancer Uterine cancer Tumor Daughter Guillain-[place] Sister Lupus History of open heart surgery Family/Other Depression FH: mental illness Maternal Aunt Breast cancer Maternal Aunt Tumor Social History Social History Household Members: None Household Members Other:: Housing: Apartment Are you a primary healthcare liaison to a significant other at home: No Do you presently have visiting nurse or other home services: Yes Alcohol intake: never Patient Tobacco Use Status: Never used Tobacco e-Cigarette/Vaping Use: Never Used Second Hand Smoke Exposure: Yes Advance Directives: Yes Advance Directives on File: Yes Advance Directives Date on File: 12/08/21 Do you have a plan to hurt others: No Plan service: No Current occupational status: unemployed and disabled Cognitive needs: Yes Hearing needs: No Vision needs: No Physical Exam Vital Signs: Vital Signs: Last Vital Signs Temp 99.2 F 12/01/24 01:03 Pulse 65 12/01/24 02:03 Resp 20 12/01/24 04:01 BP 171/67 H 12/01/24 02:03 Pulse Ox 96 12/01/24 02:03 O2 Del Method Room Air 12/01/24 02:03 BMI result Body Mass Index 40.4 Vital signs have been reviewed and appear to be correct. Blood pressure elevated. Heart rate normal. Respiratory rate normal. Temperature normal. Oxygen saturation normal. Appearance: Alert. Oriented X3. No acute distress. Head: Normal external exam. Normocephalic. Atraumatic. No Hanson signs noted. No raccoon eyes noted Eyes: PERRLA. EOMI. Conjunctiva and sclera normal. Eyelids normal. ENT: TM's Normal. Pharynx normal. Uvula midline. Moist mucous membranes. No trismus noted. No drooling noted. No muffled voice noted. Neck: Normal inspection. Neck supple. FROM. No adenopathy. Thyroid Normal. No meningeal signs. No neck mass noted. CVS: Normal heart rate and rhythm. Heart sound normal. No murmurs noted. Pulses normal throughout. Respiratory: No respiratory distress. Painless inspiration. Breath sounds normal. No wheezes/rales/rhonchi noted. Chest nontender. No accessory muscle usage noted or decreased air movement noted. Abdomen: Soft , obese, lower abdominal tenderness.Bowel sounds normal in all 4 quadrants. No distention noted. No organomegaly noted. No visible injury noted. Back: No CVA tenderness. Full range of motion noted. Skin: Skin warm and dry. Normal skin color. Normal skin turgor. No rashes/lesions/lacerations noted. Extremities: No lower extremity edema. Extremities exhibit normal range of motion. Extremities nontender. Neuro: Oriented X 3. Cranial nerve exam: II-XII are grossly intact No motor deficit. No sensory deficit. Reflexes normal. Course Reevaluation(s) Reevaluation #1: intractable vomiting/ abdominal pain of unclear etiology, leukocytosis, patient was seen in the emergency department yesterday had CT abdomen and pelvis with no acute intra-abdominal findings. Will admit the patient for observation and further management of her symptoms. Time: 04:20 Medications Administered Discontinued Medications Generic Name Dose Route Start Last Admin Trade Name Presley PRN Reason Stop Dose Admin Famotidine 20 mg 12/01/24 02:56 12/01/24 03:57 Famotidine/Pf 20 Mg/2 Ml Vial IVPUSH 12/01/24 02:57 20 mg ONCE ONE Administration Sodium Chloride 1,000 mls @ 999 mls/hr 12/01/24 02:56 12/01/24 04:02 Ns IV 12/01/24 03:56 999 mls/hr .Q1H1M ONE Administration Ketorolac Tromethamine 15 mg 12/01/24 03:49 12/01/24 04:00 Ketorolac Tromethamine 15 Mg/Ml Vial IVPUSH 12/01/24 03:50 15 mg ONCE ONE Administration Morphine Sulfate 2 mg 12/01/24 03:49 12/01/24 04:01 Morphine Sulfate 2 Mg/Ml Cartridge IVPUSH 12/01/24 03:50 2 mg ONCE ONE Administration Protocol Ondansetron HCl 4 mg 12/01/24 02:56 12/01/24 03:40 Ondansetron Hcl 4 Mg/2 Ml Vial IVPUSH 12/01/24 02:57 4 mg ONCE ONE Administration Medical Decision Making Differential Diagnosis Differential Diagnoses: The differential diagnosis associated with the presentation includes ( Acute gastritis, intractable vomiting, colitis, diverticulitis, UTI, pyelonephritis, electrolyte derangement, severe anemia.) Admission/Observation Consideration of admission/observation: Escalation of care including admission/observation considered Consult Healthcare Provider Management of the patient was discussed with: Hospitalist ( Dr. Boothe) Lab Data MDM Lab Attestation statement: I reviewed the patient's lab results. 12/01/24 01:25 12/01/24 01:25 Labs: Lab Results 12/01/24 12/01/24 Range/Units 01:25 02:10 WBC 27.4 H (4.8-10.8) X10*3/uL RBC 6.14 H (4.20-5.50) X10*6/uL Hgb 14.3 (12.0-16.0) g/dl Hct 46.2 (37.0-47.0) % MCV 75.2 L (80.0-98.0) fL MCH 23.3 L (27.0-33.0) pg MCHC 31.0 (31.0-35.0) g/dl RDW 18.9 H (11.0-16.0) % Plt Count 322 (160-400) X10*3/uL MPV 10.4 (9.4-12.3) fL Immature Gran % (Auto) 0.7 H (0.0-0.4) % Neut % (Auto) 88.1 H (45-73) % Lymph % (Auto) 7.1 L (20-40) % [place] % (Auto) 3.8 (2-11) % Eos % (Auto) 0.0 (0-4) % Baso % (Auto) 0.3 (0-2) % Lymph # (Auto) 2.0 (1.2-4.9) X10*3/uL [place] # (Auto) 1.0 (0.1-1.2) X10*3/uL Eos # (Auto) 0.0 (0.0-0.4) X10*3/uL Baso # (Auto) 0.1 (0.0-0.2) X10*3/uL Abs Immat Gran (auto) 0.19 H (0.00-0.03) X10*3/uL Absolute Neuts (auto) 24.2 H (2.0-8.3) x10*3/uL Absolute Nucleated RBC 0.000 (0.0-0.012) X10*3/uL Nucleated RBC % (auto) 0.0 (0.0-0.2) /100WBC Smear Tech's Comments VERIFIED Sodium 140 (135-145) mmol/L Potassium 3.7 (3.3-5.1) mmol/L Chloride 101 (96-108) mmol/L Carbon Dioxide 26 (22-29) mmol/L Anion Gap 17 (12-20) BUN 16 (9-16) mg/dL Creatinine 0.80 (0.5-1.4) mg/dL Estim Creat Clear Calc 101.2 Estimated GFR > 60 Random Glucose 144 H (60-115) mg/dL Calcium 10.1 (8.4-10.2) mg/dL Troponin I High Sens 8.8 D (<3.5-17.0) ng/L Influenza Type A (PCR) NEGATIVE (Negative) Influenza Type B (PCR) NEGATIVE (Negative) RSV RNA Qual (PCR) NEGATIVE (Negative) SARS-CoV-2 RNA (RT-PCR) NEGATIVE (Negative) Independent Interpretation I performed an independent interpretation of an: CT Scan ( abdomen and pelvis done yesterday:No consolidation or effusion. Unremarkable gallbladder and solid organs. No urolithiasis. No bowel obstruction, pneumoperitoneum, or pneumatosis. Pelvic contents unremarkable. Normal appendix. The bones are intact.) Radiology Impression Discussion of test interpretation with radiology: I have reviewed the radiologist's reading. Discharge Plan Discharge Clinical Impression: Intractable cyclical vomiting, Abdominal pain, Leukocytosis Patient Disposition: Admitted As Inpatient Print Language: Sudanese
[2024-12-01 02:53] LABS: Influenza A PCR NEGATIVE (Negative); Influenza B PCR NEGATIVE (Negative); Resp Syncy Virus RNA Qual PCR NEGATIVE (Negative); SARS COV2 PCR INHOUSE NEGATIVE (Negative)
[2024-12-01] MEDS: ondansetron HCL 4 MG/2 ML VIAL IVPUSH ×2 (03:40→09:12)
[2024-12-01] MEDS: Famotidine/PF 20 MG/2 ML VIAL IVPUSH (03:57)
[2024-12-01] MEDS: Ketorolac Tromethamine 15 MG/ML VIAL IVPUSH (04:00)
[2024-12-01] MEDS: Morphine Sulfate 2 MG/ML CARTRIDGE IVPUSH ×5 (04:01→22:20)
[2024-12-01] MEDS: 0.9 % Sodium Chloride 1,000 ML 999 ML IV (04:02)
[2024-12-01] MEDS: Lidocaine HCl Viscous 2 % 15 ML SOLUTION MUCOUS MEM (05:09)
[2024-12-01] MEDS: Meclizine HCl 25 MG TABLET PO (05:10)
--- NOTE | 2024-12-01 05:37 | P.HPHOSP_ITS ---
History of Present Illness Date of Service: 12/01/24 Chief Complaint: Nausea/vomiting and abdominal pain This is a 59-year-old female with pertinent history of hypertension, mixed hyperlipidemia, mood disorder, insulin-dependent diabetes mellitus, hypothyroidism, gastroesophageal reflux disease, congestive heart failure with preserved EF, MARY on CPAP, asthma not on home oxygen who presents to the emergency department for evaluation of abdominal pain, vomiting and nausea. Patient was seen in the ER 2 days prior to presentation for similar complaints but requested to go home. Patient states her symptoms started 2 days prior to presentation and she is unable to tolerate p.o. intake. He has been having persistent nausea and nonbloody emesis. Also has been having epigastric pain, nonradiating and without any relieving factors. No diarrhea, fever or chills. No chest discomfort, palpitation, shortness of breath, changes in urinary habits. Patient also complaining of persistent sensation of room spinning with dizziness and double vision. In the emergency department, CT abdomen/pelvis on 11/30 without any acute abnormalities. Resuscitated with IV crystalloids and given IV Protonix. Patient was admitted in September, with intractable nausea/vomiting and abdominal pain. Was seen by General surgery and GI during previous admission and no specific diagnosis was made. Review of Systems 2 Constitutional: Constitutional: Reports fatigue, Reports lethargy, Reports malaise, Reports poor appetite and Reports weakness ENT: Reports vertigo Cardiovascular: Cardiovascular: Reports no additional cardiovascular complaints Respiratory: Respiratory: Reports no additional respiratory complaints Gastrointestinal: Gastrointestinal: Reports abdominal pain, Reports nausea and Reports vomiting Genitourinary: Genitourinary: Reports no additional female genitourinary complaints Neurologic: Reports vertigo, Reports Other visual disturbances and Reports weakness Endocrine: Endocrine: Reports fatigue [facility] Medical History Essential hypertension Left shoulder pain Type 2 diabetes mellitus Hyperparathyroidism Erosive esophagitis Hypertension Acute diarrhea Pre-op examination Cervical radiculopathy Rash of foot Kiera albicans infection Cervicalgia Environmental allergies Hospital discharge follow-up MARY on CPAP Elevated red blood cell count Screening for hyperlipidemia Chronic pain syndrome Lumbar pain Encounter for annual routine gynecological examination Multiple air fluid levels of small intestine determined by X-ray Abdominal bloating Hypothyroid Sleep apnea Abdominal cramping Edema Anxiety with depression Chronic pain (Unknown) Gastroparesis Left knee pain Hypothyroidism Bilateral shoulder pain Hyperlipidemia LDL goal <70 Degeneration, intervertebral disc, cervical Spondylosis of cervical spine at multiple levels without myelopathy Sleep apnea Renal calculi Incontinence Goiter Disc degeneration, lumbar Spondylosis of lumbar region without myelopathy or radiculopathy Arthropathy of facet joint Insomnia LUDY (generalized anxiety disorder) Moderately severe recurrent major depression Chronic pain syndrome Morbid (severe) obesity due to excess calories Fibromyalgia Small bowel motility disorder Chronic idiopathic constipation Asthma Family History Father Past heart attack Anxiety Mother MOF (multiple organ failure) Brother HIV (human immunodeficiency virus infection) Sister Ovarian cancer Lupus Bone cancer Uterine cancer Tumor Daughter Guillain-[place] Sister Lupus History of open heart surgery Family/Other Depression FH: mental illness Maternal Aunt Breast cancer Maternal Aunt Tumor Surgical History History of knee replacement procedure of right knee History of hernia surgery Hx of colonoscopy History of esophagogastroduodenoscopy (EGD) History of cholecystectomy Delivery by section History of hysterectomy Social History Household Members: None Household Members Other:: Housing: Apartment Are you a primary day care director to a significant other at home: No Do you presently have visiting nurse or other home services: Yes Alcohol intake: never Patient Tobacco Use Status: Never used Tobacco e-Cigarette/Vaping Use: Never Used Second Hand Smoke Exposure: Yes Advance Directives: Yes Advance Directives on File: Yes Advance Directives Date on File: 12/08/21 Do you have a plan to hurt others: No Plan service: No Current occupational status: unemployed and disabled Cognitive needs: Yes Hearing needs: No Vision needs: No Meds Allergies Allergy/AdvReac Type Severity Reaction Status Date / Time Penicillins Allergy Severe swelling Verified 12/01/24 01:05 adhesive tape [ADHESIVE TAPE] Allergy Intermediate RASH Verified 12/01/24 01:05 amoxicillin [AMOXICILLIN] Allergy Intermediate RASH,SWELLI Verified 12/01/24 01:05 NG ibuprofen [From Motrin] Allergy Intermediate Hypertensio Verified 12/01/24 01:05 n latex Allergy Intermediate Rash Verified 12/01/24 01:05 Home Medications ?Medication ?Instructions ?Recorded ?Confirmed ?Last Taken ?Type lorazepam 1 mg tablet 1 mg PO DAILY PRN ANXIETY 09/11/23 10/26/24 Unknown History CPAP (CPAP Machine/Device) 03/01/24 10/26/24 Unknown History nebulizers 03/01/24 10/26/24 Unknown History bupropion HCl 150 mg 24 hr tablet, 150 mg PO DAILY 07/21/24 10/26/24 Unknown History extended release gabapentin 300 mg capsule 300 mg PO TID 07/21/24 10/26/24 Unknown History hydroxyzine HCl 50 mg tablet mg PO 07/21/24 10/26/24 Unknown History methocarbamol 750 mg tablet 750 mg PO DAILY 07/21/24 10/26/24 Unknown History paroxetine HCl 30 mg tablet 30 mg PO DAILY 07/21/24 10/26/24 Unknown History sertraline 50 mg tablet 50 mg PO DAILY 07/21/24 10/26/24 Unknown History clonazepam 1 mg tablet mg PO 10/26/24 10/26/24 Unknown History clonidine HCl 0.1 mg tablet mg PO 3XD 11/17/24 Unknown History Physical Exam 2 Vital Signs and Narrative: Vital Signs: Last Vital Signs Temp 99.2 F 12/01/24 01:03 Pulse 65 12/01/24 02:03 Resp 20 12/01/24 04:01 BP 171/67 H 12/01/24 02:03 Pulse Ox 96 12/01/24 02:03 O2 Del Method Room Air 12/01/24 02:03 BMI result Body Mass Index 40.4 Middle-aged female lying in bed in mild distress Neck supple, no JVD Regular rate and rhythm, S1-S2 heard Regular breath sounds bilaterally, no wheezing or crackles appreciated Abdomen with generalized tenderness, no guarding, no rigidity, no rebound tenderness Patient is awake, alert and oriented to self, place, time and person ; no focal motor deficit Psych: Normal mood No pedal edema Results Labs 12/01/24 01:25 12/01/24 01:25 Labs: Laboratory Results - last 24 hr 12/01/24 12/01/24 01:25 02:10 MCV 75.2 L MCH 23.3 L MCHC 31.0 RDW 18.9 H Plt Count 322 MPV 10.4 Immature Gran % (Auto) 0.7 H Neut % (Auto) 88.1 H Lymph % (Auto) 7.1 L [place] % (Auto) 3.8 Eos % (Auto) 0.0 Baso % (Auto) 0.3 Lymph # (Auto) 2.0 [place] # (Auto) 1.0 Eos # (Auto) 0.0 Baso # (Auto) 0.1 Abs Immat Gran (auto) 0.19 H Absolute Neuts (auto) 24.2 H Absolute Nucleated RBC 0.000 Nucleated RBC % (auto) 0.0 Smear Tech's Comments VERIFIED Anion Gap 17 Estim Creat Clear Calc 101.2 Estimated GFR > 60 Random Glucose 144 H Calcium 10.1 Influenza Type A (PCR) NEGATIVE Influenza Type B (PCR) NEGATIVE RSV RNA Qual (PCR) NEGATIVE SARS-CoV-2 RNA (RT-PCR) NEGATIVE Assessment and Plan (1) Abdominal pain: Status: Acute (2) Intractable vomiting: Status: Acute Plan This is a 59-year-old female with pertinent history of hypertension, mixed hyperlipidemia, mood disorder, insulin-dependent diabetes mellitus, hypothyroidism, gastroesophageal reflux disease, congestive heart failure with preserved EF, MARY on CPAP, asthma not on home oxygen who presents to the emergency department for evaluation of abdominal pain, vomiting and nausea. #. Intractable vomiting with abdominal pain: Resuscitated with IV crystalloids and given IV Protonix. Consulting Gastroenterology, appreciate assistance. Clear liquid diet and advanced as tolerated. CT abdomen/pelvis on 11/30 without any acute abnormality #. Leukocytosis, reactive: Defer antibiotics for now. Procalcitonin pending. No fever #. Insulin-dependent diabetes mellitus with hyperglycemia: Initiating Accu- Cheks with sliding scale insulin. Reduce home basal insulin #. Hypothyroidism: Continue home Synthroid #. Moderate persistent asthma without acute exacerbation: Continue home inhalers #. Mood disorder: Continue home mood stabilizers #. Congestive heart failure with preserved ejection fraction: ? On bumex #. Mixed hyperlipidemia: On statin #. Essential hypertension: On amlodipine #. MARY: Will order and continue CPAP at bedtime #. Obesity: Counseled regarding diet and exercise Med rec pending DVT prophylaxis: Lovenox Full code Quality Stroke Does the patient have a stroke diagnosis?: No VTE Prior VTE?: No VTE Risk Level:: Medical - moderate - high VTE Device Contraindication: Treatment Not Indicated VTE Drug Contraindication: N/A - Med Ordered
[2024-12-01] MEDS: Pantoprazole Sodium 40 MG/10 ML VIAL IVPUSH (05:57)
[2024-12-01] MEDS: Enoxaparin Sodium 40 MG/0.4 ML SYRINGE SUBCUT (05:57)
[2024-12-01 06:22] LABS: Procalcitonin 0.05 ng/mL
[2024-12-01 07:17] LABS: Glucose, Whole Blood 119 mg/dL (60-115)
[2024-12-01] MEDS: 0.9 % Sodium Chloride Flush 3 ML SYRINGE IVFLUSH (07:36)
--- NOTE | 2024-12-01 09:46 | PHA.MEDREC ---
Addendum entered by Scarlet Bean [facility] [place] 12/01/24 10:13: Reviewed by [facility] Original Note: Pharmacy Consult ? Medication Reconciliation Pharmacy has completed the medication reconciliation. Spoke with nory and she was able to confirm her medications with a little help from her daughter Nancy over the phone. She confirmed she has not started any of the medications prescribed to her yesterday (Cephalexin and Ondansetron) due to getting more sick since then. She also confirmed Trulicity once a week on Tuesdays and confirmed she took it this past Wednesday. She confirmed she is taking both the Hydroxyzine 25mg tab as needed for itching and still has Hydroxyzine 50mg tab at home as needed for extreme itching if the 25mg tab is ineffective. She confirmed she is taking an Insulin Glargine and Insulin Lispro but did not remember how many units she injects and called her daughter. The daughter was able to confirm her mom injects 15 units of the Insulin Glargine in the morning and 5 units of the Insulin Lispro in the evening before supper. The patient and her daughter confirmed she is taking the Sumatriptan 25mg tabs as needed for the patients migraine/headaches and did not know anything about the Rizatriptain at this time. The patient confirmed she has not been able to take any medications since Wednesday.
--- NOTE | 2024-12-01 10:53 | PC.NURSE ---
This RN resumed care at 0700, pharmacy at bedside to review medications, MRI screening form completed and faxed to MRI this AM, Pt did not tolerate clear liquid tray well this morning, has been stating increased pain and nausea since this AM, provider reached out for PRN pain medication for severe pain, IV morphine ordered and given with little effect, PRN zofran given with little effect. Provider aware of current complaints, this RN advised pt to hold off on eating or drinking at this time. No new orders placed.
[2024-12-01] MEDS: Lactated Ringers 1,000 ML 100 ML IVCONT ×3 (11:05→22:24)
--- NOTE | 2024-12-01 11:21 | PM.GICN ---
History of Present Illness Data of Consult Service Date: 12/01/24 Primary Care Provider: Jenny Bell MD HPI Reason for consult: abdominal pain 59-year-old female with hx of hypertension, mixed hyperlipidemia, mood disorder, insulin-dependent diabetes mellitus, hypothyroidism, gastroesophageal reflux disease, congestive heart failure with preserved EF, MARY on CPAP, asthma not on home oxygen who I am seeing for assessment for undifferentiated abdominal pain. she has had 2 d of upper abdominal pain in RUQ and epigastrium 07/13 with nausea and nonbloody emesis. She denies diarrhea, fever or chills. No changes in urinary habits. she admits to chest tightness, SOB, without sputum and pins and needles in feet with painful joints and swelling. Aslo noted dull headache and visula blurring. No recent steroids or nsaid use . has noted issues with occ rectal bleeding and bloody diarrhea The pain feels similar to prior attacks over the years. In the emergency department, CT abdomen/pelvis on 11/30 without any acute abnormalities. Given IV fluids and IV Protonix. Prior investigations: EGD and colonoscopy with colonic dysmotility, internal hemorrhoids and cecal polyp note 2022 C diff in the past treated successfully chronic leukocytosis BCR-ABL FISH test neg ANCA, JENNY, IG levels nml RF and CCP neg trial of colchicine was unsuccessful Review of Systems Review of Systems: Constitutional : No Weight loss, No Fever, No Chills ENT/Mouth : No sore throat, No Rhinorrhea Eyes: No Swelling, No Redness Cardiovascular : No Chest Pain, No SOB, No Edema Respiratory : No Cough, No Sputum, No Wheezing Gastrointestinal : see HPI Genitourinary : NO Dysuria, No Urinary Frequency, No Hematuria, No Urgency Musculoskeletal : + joint pain, No Myalgias, No Joint Swelling Skin : No Skin Lesions, No rash Neuro : No Weakness, No Numbness, No Dizziness, + Headache, numbness/tingling in feet Psych : No Anxiety/Panic, No Depression Heme/Lymph: No Bruising, No Lymphadenopathy Endocrine : No Polyuria, No Polydipsia All other systems reviewed and are negative. [facility] Past Medical History Medical History Essential hypertension Left shoulder pain Type 2 diabetes mellitus Hyperparathyroidism Erosive esophagitis Hypertension Acute diarrhea Pre-op examination Cervical radiculopathy Rash of foot Kiera albicans infection Cervicalgia Environmental allergies Hospital discharge follow-up MARY on CPAP Elevated red blood cell count Screening for hyperlipidemia Chronic pain syndrome Lumbar pain Encounter for annual routine gynecological examination Multiple air fluid levels of small intestine determined by X-ray Abdominal bloating Hypothyroid Sleep apnea Abdominal cramping Edema Anxiety with depression Chronic pain (Unknown) Gastroparesis Left knee pain Hypothyroidism Bilateral shoulder pain Hyperlipidemia LDL goal <70 Degeneration, intervertebral disc, cervical Spondylosis of cervical spine at multiple levels without myelopathy Sleep apnea Renal calculi Incontinence Goiter Disc degeneration, lumbar Spondylosis of lumbar region without myelopathy or radiculopathy Arthropathy of facet joint Insomnia LUDY (generalized anxiety disorder) Moderately severe recurrent major depression Chronic pain syndrome Morbid (severe) obesity due to excess calories Fibromyalgia Small bowel motility disorder Chronic idiopathic constipation Asthma Family History Family History Father Past heart attack Anxiety Mother MOF (multiple organ failure) Brother HIV (human immunodeficiency virus infection) Sister Ovarian cancer Lupus Bone cancer Uterine cancer Tumor Daughter Guillain-Ulysses Sister Lupus History of open heart surgery Family/Other Depression FH: mental illness Maternal Aunt Breast cancer Maternal Aunt Tumor Surgical History Surgical History History of knee replacement procedure of right knee History of hernia surgery Hx of colonoscopy History of esophagogastroduodenoscopy (EGD) History of cholecystectomy Delivery by section History of hysterectomy Social History Social History Household Members: None Household Members Other:: Housing: Apartment Are you a primary assurance services manager health care to a significant other at home: No Do you presently have visiting nurse or other home services: Yes Alcohol intake: never Patient Tobacco Use Status: Never used Tobacco e-Cigarette/Vaping Use: Never Used Second Hand Smoke Exposure: Yes Advance Directives Date on File: 12/08/21 service: No Current occupational status: unemployed and disabled Cognitive needs: Yes Hearing needs: No Vision needs: No Meds Allergies Allergy/AdvReac Type Severity Reaction Status Date / Time Penicillins Allergy Severe swelling Verified 12/01/24 01:05 adhesive tape [ADHESIVE TAPE] Allergy Intermediate RASH Verified 12/01/24 01:05 amoxicillin [AMOXICILLIN] Allergy Intermediate RASH,SWELLI Verified 12/01/24 01:05 NG ibuprofen [From Motrin] Allergy Intermediate Hypertensio Verified 12/01/24 01:05 n latex Allergy Intermediate Rash Verified 12/01/24 01:05 Active Medications: Current Medications Acetaminophen (Acetaminophen 325 Mg Tablet) 650 mg PO Q6H PRN PRN Reason: Pain, Mild 1-3,fever,headache Albuterol Sulfate (Albuterol Sulfate (0.083%) 2.5 Mg/3 Ml Vial.Neb) 2.5 mg INHALE Q6H PRN PRN Reason: shortness of breath or wheezing Calcium Carbonate (Calcium Carbonate 750 Mg Tab.Chew) 750 mg PO Q4H PRN PRN Reason: Heartburn Dextrose (Dextrose 50 % 25 Gm/50 Ml Syringe) 25 gm IVPUSH Q15M PRN; Protocol PRN Reason: per Hypoglycemia Standing Ord. Enoxaparin Sodium (Enoxaparin Sodium 40 Mg/0.4 Ml Syringe) 40 mg SUBCUT Q24H [facility] Last Admin: 12/01/24 05:57 Dose: 40 mg Fluticasone/Vilanterol (Fluticasone/Vilanterol 200/25 Blst.W.Dev) 1 puff INHALE RDAILY [facility] Glucose (Glucose Gel 15 Gm Gel..Gram.) 15 gm PO Q15M PRN; Protocol PRN Reason: per Hypoglycemia Standing Ord. Lactated Ringer's (Lr) 1,000 mls @ 100 mls/hr IVCONT .Q10H [facility] Last Admin: 12/01/24 11:05 Dose: 100 mls/hr Insulin Human Lispro (Insulin Lispro 100 Unit/Ml 3 Ml Vial) 0 unit SUBCUT QIDACHS [facility]; Protocol Last Admin: 12/01/24 07:27 Dose: Not Given Levothyroxine Sodium (Levothyroxine Sodium 112 Mcg Tablet) 112 mcg PO DAILY@0600 [facility] Lorazepam (Lorazepam 1 Mg Tablet) 1 mg PO DAILY PRN PRN Reason: Anxiety Magnesium Hydroxide (Milk Of Magnesia 30 Ml Oral.Susp) 30 ml PO DAILY PRN PRN Reason: Constipation Meclizine HCl (Meclizine Hcl 25 Mg Tablet) 25 mg PO DAILY PRN PRN Reason: dizziness Melatonin (Melatonin 3 Mg Tablet) 6 mg PO BEDTIME PRN PRN Reason: Insomnia Metoprolol Succinate (Metoprolol Succinate Er 50 Mg Tab.Er.24h) 50 mg PO DAILY RADHA; Protocol Morphine Sulfate (Morphine Sulfate 2 Mg/Ml Cartridge) 2 mg IVPUSH Q4H PRN; Protocol PRN Reason: Pain, Severe (Pain Scale 7-10) Last Admin: 12/01/24 09:45 Dose: 2 mg Ondansetron HCl (Ondansetron Hcl 4 Mg/2 Ml Vial) 4 mg IVPUSH Q8H PRN PRN Reason: Nausea and Vomiting Last Admin: 12/01/24 09:12 Dose: 4 mg Sodium Chloride (0.9 % Sodium Chloride Flush 3 Ml Syringe) 3 ml IVFLUSH QSHIFT RADHA Last Admin: 12/01/24 07:36 Dose: 3 ml Home Medications ?Medication ?Instructions ?Recorded ?Confirmed ?Last Taken ?Type lorazepam 1 mg tablet 1 mg PO DAILY PRN ANXIETY 09/11/23 12/01/24 Unknown History CPAP (CPAP Machine/Device) 03/01/24 10/26/24 Unknown History nebulizers 03/01/24 10/26/24 Unknown History hydroxyzine HCl 50 mg tablet 50 mg PO DAILY PRN Itching 07/21/24 12/01/24 Unknown History clonazepam 1 mg tablet 1 mg PO DAILY PRN Anxiety 10/26/24 12/01/24 Unknown History clonidine HCl 0.1 mg tablet 0.1 mg PO TID 11/17/24 12/01/24 11/28/24 History cholecalciferol (vitamin D3) 50 50 mcg PO BEDTIME 12/01/24 12/01/24 11/27/24 History mcg (2,000 unit) capsule docusate sodium 100 mg capsule 100 mg PO BID PRN Constipation 12/01/24 12/01/24 11/28/24 History (Colace) dulaglutide 1.5 mg/0.5 mL 1.5 mg subcut TU 12/01/24 12/01/24 11/28/24 History subcutaneous pen injector (Trulicity) insulin lispro 100 unit/mL 5 unit subcut DAILY@1700 12/01/24 12/01/24 11/27/24 History subcutaneous pen (Humalog KwikPen (U-100) Insulin) trazodone 150 mg tablet 75 - 150 mg PO NEEDED 12/01/24 12/01/24 Unknown History Insomnia/Headache zolpidem 5 mg tablet 5 mg PO BEDTIME PRN 12/01/24 12/01/24 Unknown History Insomnia/Migraine Physical Exam Vital Signs: Vital Signs: Last Vital Signs Temp 98 F 12/01/24 07:39 Pulse 96 12/01/24 07:39 Resp 16 12/01/24 09:45 BP 105/63 12/01/24 07:39 Pulse Ox 94 12/01/24 07:39 O2 Del Method Room Air 12/01/24 07:39 BMI result Body Mass Index 40.4 EXAM: GENERAL: The patient is obese VITAL SIGNS:see workflow HEENT: Nonicteric sclerae, PERRLA, EOMI. Oropharynx clear. Moist mucous membranes. Conjunctivae appear well perfused. No thyroid mass. CHEST: Chest wall is nontender. HEART: Regular rate and rhythm without murmurs. LUNGS: mild wheeze ABDOMEN: Soft, positive bowel sounds, tender epigastrium and RUQ, no organomegaly.no flank tenderness SKIN: No rash, no excessive bruising, petechiae, or purpura. NEUROLOGIC: Cranial nerves II-XII intact without motor/sensory deficit. pt was in chair going to MRI so full exam not possible Psych: normal affect Results Labs 12/01/24 01:25 12/01/24 01:25 Labs: Short CBC 12/01/24 Range/Units 01:25 WBC 27.4 H (4.8-10.8) X10*3/uL Hgb 14.3 (12.0-16.0) g/dl Hct 46.2 (37.0-47.0) % Plt Count 322 (160-400) X10*3/uL BMP 12/01/24 01:25 Sodium 140 Potassium 3.7 Chloride 101 Carbon Dioxide 26 BUN 16 Creatinine 0.80 Calcium 10.1 Assessment and Plan (1) Abdominal pain: Status: Acute Plan 1/ Acute on chronic abdominal pain, extensive work up in past with no obvious causes found on multiple testing. Has chronic elevated WCC, CRP, swollen joints, and neurological symptoms, ddx: CCP negative rheumatoid or lupus, porphyria, demyelinating neuropathy or other neurological disease, hematological origin? she does have asthma as well but ANCA neg makes wegners unlikely, churgg darby is possible PLAN: 1/ Await MRI abdomen 2/ she has wheeze on exam, consider CT chest 3/ consider hematology and neuro input 4/ cont with IV fluids, anti emetics, analgesia meantime, 5/ possible colonoscopy depending on clinical course --if has diarrhea then c diff and GI PCR panel 6/ porphyria screen 7/ if above neg then mesenteric duplex Procedures Date of Service Date of Service: 12/01/24
--- NOTE | 2024-12-01 12:20 | PC.NURSE ---
Pt going to MRI and will be brought to bed assignment after, all belongings sent, ivf stopped for MRI, all monitors and stickers removed at this time
[2024-12-01 13:25] LABS: Glucose, Whole Blood 126 mg/dL (60-115)
--- NOTE | 2024-12-01 13:45 | PM.EVENT ---
Event Note Date of Service: 12/01/24 Event Note: seen and examined this morning follow up for abdominal pain states she ate at [employer] and then began having pain with nausea, no diarrhea has had similar presentation in the past. has a multitude of complaints including leg tingling, headache - all which seem to be chronic in nature abdominal pain unclear cause, has had extensive workup in the past which is all but negative CT abdomen/pelvis negative, LFTs negative symptomatic support GI consult pending Dizziness appears chronic, MRI negative for acute stroke continue prn meclizine Leukocytosis, likely reactive: Defer antibiotics for now. Procalcitonin low. No fever Insulin-dependent diabetes mellitus with hyperglycemia: Initiating Accu-Cheks with sliding scale insulin. npo, hold off on lantus for now Hypothyroidism: Continue home Synthroid Moderate persistent asthma without acute exacerbation: Continue home inhalers Mood disorder: Continue home mood stabilizers Congestive heart failure with preserved ejection fraction: not on diuretics Mixed hyperlipidemia: hold statin Essential hypertension: continue clonidine, metoprolol MARY: Will order and continue CPAP at bedtime Obesity: BMI 40.4 Counseled regarding diet and exercise dvt ppx - lovenox Time Spent With Patient Time: Total time managing care of this patient today ____ minutes.
--- NOTE | 2024-12-01 14:07 | MHC.CM.PN ---
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
[2024-12-01] MEDS: cloNIDine HCL 0.1 MG TABLET PO ×2 (16:06→20:30)
[2024-12-01 16:34] LABS: Glucose, Whole Blood 133 mg/dL (60-115)
[2024-12-01 20:12] LABS: Glucose, Whole Blood 112 mg/dL (60-115)
[2024-12-01] MEDS: Hydrocortisone 2.5 % Rectal Cr 30 GM TUBE 1 APPL PR (20:30)
[2024-12-02] VITALS (10 sets, daily range): BP systolic 88–122; BP diastolic 50–64; PULSE 57–66; RESP 14–20; TEMP 36–36.2; O2SAT 93–96
--- NOTE | 2024-12-02 00:08 | PM.EVENT ---
Event Note Date of Service: 12/02/24 Event Note: Nurse reported hypotension. Likely due to poor p.o. intake in the setting of abdominal pain. No sepsis Time Spent With Patient Time: Total time managing care of this patient today ____ minutes.
[2024-12-02] MEDS: Lactated Ringers 1,000 ML 999 ML IV (00:28)
[2024-12-02 01:58] LABS: Glucose, Whole Blood 87 mg/dL (60-115)
[2024-12-02] MEDS: LACTATED RINGERS 3507 ML IV (02:05)
[2024-12-02] MEDS: cefTRIAXone sodium 1 GM VIAL IVPUSH (02:10)
[2024-12-02 02:46] LABS: Lactic Acid 1.7 mmol/L (0.5-2.0)
--- NOTE | 2024-12-02 02:59 | PC.NURSE ---
for midnight vitals patients BP was 76/46 manually and c/o of headache, dizziness and blurry vision. all her other vitals being normal. Dr. Boothe notifed and ordred a bolus of LR. repeat BP an hour later 96/54. Dr. Boothe then ordered LR 30ml/kg for total of 3507mL and 1x dose of rocephin. patient care ongoing.
[2024-12-02] MEDS: Levothyroxine Sodium 112 MCG TABLET PO (06:27)
[2024-12-02] MEDS: Enoxaparin Sodium 40 MG/0.4 ML SYRINGE SUBCUT (06:27)
[2024-12-02] MEDS: Meclizine HCl 25 MG TABLET PO (06:27)
[2024-12-02] MEDS: Pantoprazole Sodium 40 MG/10 ML VIAL IVPUSH (06:28)
[2024-12-02 06:54] LABS: MANUAL DIFF FLAG NO
[2024-12-02 07:28] LABS: Anion Gap 12 (12-20); Blood Urea Nitrogen 18 mg/dL (9-16); Calcium 8.2 mg/dL (8.4-10.2); Carbon Dioxide 24 mmol/L (22-29); Chloride 106 mmol/L (96-108); Creatinine Clr Calc Pharmacy 117.4; Estimated Glomerular Filt Rate > 60; Glucose Random 85 mg/dL (60-115); Potassium 3.5 mmol/L (3.3-5.1); Sodium 138 mmol/L (135-145)
[2024-12-02 07:46] LABS: Glucose, Whole Blood 92 mg/dL (60-115)
[2024-12-02 07:47] LABS: Basophils Percent Auto 0.3 % (0-2); Eosinophils Absolute Auto 0.2 X10*3/uL (0.0-0.4); Eosinophils Percent Auto 1.5 % (0-4); Hematocrit 32.9 % (37.0-47.0); Imm Gran Abs Auto 0.07 X10*3/uL (0.00-0.03); Imm Gran Pct Auto 0.6 % (0.0-0.4); Lymphocytes Absolute Auto 3.4 X10*3/uL (1.2-4.9); Lymphocytes Percent Auto 30.6 % (20-40); Mean Corpuscular HGB Conc 30.7 g/dl (31.0-35.0); Mean Corpuscular Hemoglobin 23.4 pg (27.0-33.0); Mean Corpuscular Volume 76.3 fL (80.0-98.0); Mean Platelet Volume 11.1 fL (9.4-12.3); Monocytes Absolute Auto 0.6 X10*3/uL (0.1-1.2); Monocytes Percent Auto 5.8 % (2-11); Neutrophils Absolute Auto 6.8 x10*3/uL (2.0-8.3); Neutrophils Percent Auto 61.2 % (45-73); Platelet Count 200 X10*3/uL (160-400); Red Blood Count 4.31 X10*6/uL (4.20-5.50); Red Cell Distribution Width 17.4 % (11.0-16.0); White Blood Count 11.1 X10*3/uL (4.8-10.8)
[2024-12-02 08:28] LABS: Hemoglobin 10.1 g/dl (12.0-16.0)
[2024-12-02] MEDS: Morphine Sulfate 2 MG/ML CARTRIDGE IVPUSH (09:06)
--- NOTE | 2024-12-02 09:10 | ECG_ITS ---
Test Reason : chest pain Blood Pressure : */* mmHG Vent. Rate : 61 BPM Atrial Rate : 61 BPM P-R Int : 122 ms QRS Dur : 76 ms QT Int : 480 ms P-R-T Axes : -21 1 20 degrees QTcB Int : 483 ms Normal sinus rhythm Prolonged QT Abnormal ECG When compared with ECG of 01-Dec-2024 00:50, ST no longer depressed in Lateral leads Nonspecific T wave abnormality now evident in Anterior leads Referred By: Josie Martin Electronically Signed By: Antonio Espinosa
[2024-12-02] MEDS: ondansetron HCL 4 MG/2 ML VIAL IVPUSH ×2 (09:17→15:42)
[2024-12-02] MEDS: LORazepam 2 MG/ML VIAL 1 MG IVPUSH (09:22)
--- NOTE | 2024-12-02 09:36 | P.PNIM_ITS ---
Subjective Subjective Date of Service: 12/02/24 Review of Systems Follow up abd pain, chest pain Physical Exam 2 Vital Signs: Vital Signs: Last Vital Signs Temp 97.1 F 12/02/24 08:00 Pulse 60 12/02/24 08:00 Resp 16 12/02/24 08:00 BP 114/62 12/02/24 08:00 Pulse Ox 96 12/02/24 08:00 O2 Del Method Room Air 12/02/24 08:00 BMI result Body Mass Index 40.4 Appearing in no acute distress lung sounds are clear to auscultation heart regular rate rhythm, clear S1, S2 positive bowel sounds, abdomen is soft, nontender neuro patient is alert x3, no focal deficits Objective Data Active Medications Acetaminophen (Acetaminophen 325 Mg Tablet) 650 mg PO Q6H PRN PRN Reason: Pain, Mild 1-3,fever,headache Albuterol Sulfate (Albuterol Sulfate (0.083%) 2.5 Mg/3 Ml Vial.Neb) 2.5 mg INHALE Q6H PRN PRN Reason: shortness of breath or wheezing Calcium Carbonate (Calcium Carbonate 750 Mg Tab.Chew) 750 mg PO Q4H PRN PRN Reason: Heartburn Clonidine HCl (Clonidine Hcl 0.1 Mg Tablet) 0.1 mg PO TID [facility]; Protocol Last Admin: 12/01/24 20:30 Dose: 0.1 mg Documented By: GRICEL Dextrose (Dextrose 50 % 25 Gm/50 Ml Syringe) 25 gm IVPUSH Q15M PRN; Protocol PRN Reason: per Hypoglycemia Standing Ord. Enoxaparin Sodium (Enoxaparin Sodium 40 Mg/0.4 Ml Syringe) 40 mg SUBCUT Q24H [facility] Last Admin: 12/02/24 06:27 Dose: 40 mg Documented By: GRICEL Fluticasone/Vilanterol (Fluticasone/Vilanterol 200/25 Blst.W.Dev) 1 puff INHALE RDAILY [facility] Last Admin: 12/02/24 08:12 Dose: Not Given Documented By: ZACH Non-Admin Reason: med not available, pharmacy notified. Glucose (Glucose Gel 15 Gm Gel..Gram.) 15 gm PO Q15M PRN; Protocol PRN Reason: per Hypoglycemia Standing Ord. Hydrocortisone (Hydrocortisone 2.5 % Rectal Cr 30 Gm Tube) 1 appl IN BID PRN PRN Reason: hemorrhoids Last Admin: 12/01/24 20:30 Dose: 1 appl Documented By: GRICEL Lactated Ringer's (Lr) 1,000 mls @ 100 mls/hr IVCONT .Q10H [facility] Last Admin: 12/02/24 07:58 Dose: Not Given Documented By: ABBI Non-Admin Reason: IV Running Insulin Human Lispro (Insulin Lispro 100 Unit/Ml 3 Ml Vial) 0 unit SUBCUT QIDACHS [facility]; Protocol Last Admin: 12/02/24 07:51 Dose: Not Given Documented By: ABBI Non-Admin Reason: No Insulin Coverage Levothyroxine Sodium (Levothyroxine Sodium 112 Mcg Tablet) 112 mcg PO DAILY@0600 [facility] Last Admin: 12/02/24 06:27 Dose: 112 mcg Documented By: GRICEL Lorazepam (Lorazepam 1 Mg Tablet) 1 mg PO DAILY PRN PRN Reason: Anxiety Magnesium Hydroxide (Milk Of Magnesia 30 Ml Oral.Susp) 30 ml PO DAILY PRN PRN Reason: Constipation Meclizine HCl (Meclizine Hcl 25 Mg Tablet) 25 mg PO DAILY PRN PRN Reason: dizziness Last Admin: 12/02/24 06:27 Dose: 25 mg Documented By: GRICEL Melatonin (Melatonin 3 Mg Tablet) 6 mg PO BEDTIME PRN PRN Reason: Insomnia Metoprolol Succinate (Metoprolol Succinate Er 50 Mg Tab.Er.24h) 50 mg PO DAILY [facility]; Protocol Morphine Sulfate (Morphine Sulfate 2 Mg/Ml Cartridge) 2 mg IVPUSH Q4H PRN; Protocol PRN Reason: Pain, Severe (Pain Scale 7-10) Last Admin: 12/02/24 09:06 Dose: 2 mg Documented By: MARILYN Ondansetron HCl (Ondansetron Hcl 4 Mg/2 Ml Vial) 4 mg IVPUSH Q8H PRN PRN Reason: Nausea and Vomiting Last Admin: 12/02/24 09:17 Dose: 4 mg Documented By: MARILYN Pantoprazole Sodium (Pantoprazole Sodium 40 Mg/10 Ml Vial) 40 mg IVPUSH DAILY@0630 [facility] Last Admin: 12/02/24 06:28 Dose: 40 mg Documented By: GRICEL Sodium Chloride (0.9 % Sodium Chloride Flush 3 Ml Syringe) 3 ml IVFLUSH QSHIFT RADHA Last Admin: 12/02/24 09:07 Dose: Not Given Documented By: MARILYN Non-Admin Reason: IV Running Labs 12/02/24 06:05 12/02/24 06:05 Labs: Laboratory Results - last 24 hr 12/01/24 12/01/24 12/01/24 13:17 16:30 20:04 MCV MCH MCHC RDW Plt Count MPV Immature Gran % (Auto) Neut % (Auto) Lymph % (Auto) [place] % (Auto) Eos % (Auto) Baso % (Auto) Lymph # (Auto) [place] # (Auto) Eos # (Auto) Baso # (Auto) Abs Immat Gran (auto) Absolute Neuts (auto) Absolute Nucleated RBC Nucleated RBC % (auto) Anion Gap Estim Creat Clear Calc Estimated GFR POC Glucose 126 H 133 H 112 Random Glucose Lactic Acid Calcium 12/02/24 12/02/24 12/02/24 01:51 02:24 06:05 MCV 76.3 L MCH 23.4 L MCHC 30.7 L RDW 17.4 H Plt Count 200 D MPV 11.1 Immature Gran % (Auto) 0.6 H Neut % (Auto) 61.2 Lymph % (Auto) 30.6 [place] % (Auto) 5.8 Eos % (Auto) 1.5 Baso % (Auto) 0.3 Lymph # (Auto) 3.4 [place] # (Auto) 0.6 Eos # (Auto) 0.2 Baso # (Auto) 0.0 Abs Immat Gran (auto) 0.07 H Absolute Neuts (auto) 6.8 Absolute Nucleated RBC 0.000 Nucleated RBC % (auto) 0.0 Anion Gap 12 Estim Creat Clear Calc 117.4 Estimated GFR > 60 POC Glucose 87 Random Glucose 85 Lactic Acid 1.7 Calcium 8.2 L D 12/02/24 07:33 MCV MCH MCHC RDW Plt Count MPV Immature Gran % (Auto) Neut % (Auto) Lymph % (Auto) [place] % (Auto) Eos % (Auto) Baso % (Auto) Lymph # (Auto) [place] # (Auto) Eos # (Auto) Baso # (Auto) Abs Immat Gran (auto) Absolute Neuts (auto) Absolute Nucleated RBC Nucleated RBC % (auto) Anion Gap Estim Creat Clear Calc Estimated GFR POC Glucose 92 Random Glucose Lactic Acid Calcium Assessment and Plan (1) Moderately severe recurrent major depression: Status: Acute Plan 59 year old women admitted with abdominal pain Chest pain reported cp with inspiration that radiated to neck and head and back of neck EKG without acute changes normal VS, o2 sat 97% on ra given one dose of IV lorazepam with good effect Abdominal pain unclear cause, has had extensive workup in the past which is all but negative CT abdomen/pelvis negative, LFTs negative symptomatic support GI consult pending Dizziness appears chronic, MRI negative for acute stroke continue prn meclizine Leukocytosis, likely reactive Defer antibiotics for now. Procalcitonin low. No fever Insulin-dependent diabetes mellitus with hyperglycemia Initiating Accu-Cheks with sliding scale insulin. npo, hold off on lantus for now Hypothyroidism Continue home Synthroid Moderate persistent asthma without acute exacerbation Continue home inhalers Mood disorder Continue home mood stabilizers Congestive heart failure with preserved ejection fraction not on diuretics Mixed hyperlipidemia hold statin Essential hypertension continue clonidine, metoprolol MARY CPAP at bedtime Obesity BMI 40.4 Counseled regarding diet and exercise dvt ppx - lovenox Full code Quality Stroke Does the patient have a stroke diagnosis?: No VTE Prior VTE?: No VTE Risk Level:: Medical - moderate - high VTE Device Contraindication: Treatment Not Indicated VTE Drug Contraindication: N/A - Med Ordered
--- NOTE | 2024-12-02 10:40 | PC.NURSE ---
Pt recently hypotensive and received replacement fluids over night for hypotension - burrent BP 102/57, pt c/o feeling dizzy. Held Metoprolol 50mg and Clonidine 0.1mg, notified provider.
[2024-12-02 11:29] LABS: Glucose, Whole Blood 93 mg/dL (60-115)
[2024-12-02] MEDS: Acetaminophen 325 MG TABLET 650 MG PO (11:33)
[2024-12-02] MEDS: Hydrocortisone 2.5 % Rectal Cr 30 GM TUBE 1 APPL PR ×2 (11:34→20:22)
[2024-12-02 12:21] LABS: Iron 56 mcg/dL (30-160); Percent Iron Saturation 28 % (15-50); Total Iron Binding Capacity 202 mcg/dL (228-428); Unsaturated Iron Binding 146 ug/dL
[2024-12-02] MEDS: Lactated Ringers 1,000 ML 100 ML IVCONT (13:03)
[2024-12-02] MEDS: Calcium Carbonate 750 MG TAB.CHEW PO (15:43)
[2024-12-02] MEDS: cloNIDine HCL 0.1 MG TABLET PO (15:43)
[2024-12-02 16:11] LABS: Glucose, Whole Blood 109 mg/dL (60-115)
[2024-12-02] MEDS: 0.9 % Sodium Chloride Flush 3 ML SYRINGE IVFLUSH (16:48)
[2024-12-02 21:17] LABS: Glucose, Whole Blood 101 mg/dL (60-115)
[2024-12-03 01:39] VITALS: RESP 16
[2024-12-03] MEDS: Morphine Sulfate 2 MG/ML CARTRIDGE IVPUSH (01:39)
[2024-12-03] MEDS: Melatonin 3 MG TABLET 6 MG PO (01:44)
[2024-12-03] MEDS: Enoxaparin Sodium 40 MG/0.4 ML SYRINGE SUBCUT (05:40)
[2024-12-03] MEDS: Pantoprazole Sodium 40 MG/10 ML VIAL IVPUSH (05:40)
[2024-12-03] MEDS: Levothyroxine Sodium 112 MCG TABLET PO (05:40)
[2024-12-03] MEDS: Lactated Ringers 1,000 ML 100 ML IVCONT (05:44)
[2024-12-03 07:24] LABS: Glucose, Whole Blood 107 mg/dL (60-115)
[2024-12-03 07:47] VITALS: BP 103/50; PULSE 54; RESP 18; TEMP 36.4; O2SAT 94
[2024-12-03] MEDS: Fluticasone/Vilanterol 200/25 BLST.W.DEV 1 PUFF INHALE (07:55)
[2024-12-03 07:58] VITALS: PULSE 71; RESP 18; O2SAT 95
[2024-12-03] MEDS: Acetaminophen 325 MG TABLET 650 MG PO (09:06)
[2024-12-03] MEDS: LORazepam 1 MG TABLET PO (09:07)
[2024-12-03] MEDS: cloNIDine HCL 0.1 MG TABLET PO (09:07)
[2024-12-03] MEDS: Calcium Carbonate 750 MG TAB.CHEW PO (09:07)
[2024-12-03] MEDS: Hydrocortisone 2.5 % Rectal Cr 30 GM TUBE 1 APPL PR (09:08)
[2024-12-03 10:08] LABS: C Reactive Protein 1.47 mg/dL (< or = 0.50)
[2024-12-03 10:51] LABS: Hematocrit 34.9 % (37.0-47.0); Hemoglobin 10.8 g/dl (12.0-16.0); Mean Corpuscular HGB Conc 30.9 g/dl (31.0-35.0); Mean Corpuscular Hemoglobin 24.1 pg (27.0-33.0); Mean Corpuscular Volume 77.7 fL (80.0-98.0); Mean Platelet Volume 11.2 fL (9.4-12.3); Platelet Count 226 X10*3/uL (160-400); Red Blood Count 4.49 X10*6/uL (4.20-5.50); Red Cell Distribution Width 17.4 % (11.0-16.0)
[2024-12-03 11:24] LABS: Glucose, Whole Blood 105 mg/dL (60-115)
--- NOTE | 2024-12-03 13:03 | PM.DS ---
DS: Providers Provider Date of Service: 12/03/24 Date of admission: 12/01/24 05:35 Date of discharge: 12/03/24 Primary care physician: Jenny Bell MD Consults: 12/01/24 05:34 Consult to Gastroenterology Routine Consulting Provider: Bunny Ballard Reason for consultation: intractable nausea/vomiting DS: Diagnosis Discharge Diagnosis (1) Moderately severe recurrent major depression: Status: Acute DS: Summary Hospital Course Hospital Course: History and physical as per admitting provider. This is a 59-year-old female with pertinent history of hypertension, mixed hyperlipidemia, mood disorder, insulin-dependent diabetes mellitus, hypothyroidism, gastroesophageal reflux disease, congestive heart failure with preserved EF, MARY on CPAP, asthma not on home oxygen who presents to the emergency department for evaluation of abdominal pain, vomiting and nausea. Patient was seen in the ER 2 days prior to presentation for similar complaints but requested to go home. Patient states her symptoms started 2 days prior to presentation and she is unable to tolerate p.o. intake. He has been having persistent nausea and nonbloody emesis. Also has been having epigastric pain, nonradiating and without any relieving factors. No diarrhea, fever or chills. No chest discomfort, palpitation, shortness of breath, changes in urinary habits. Patient also complaining of persistent sensation of room spinning with dizziness and double vision. In the emergency department, CT abdomen/pelvis on 11/30 without any acute abnormalities. Resuscitated with IV crystalloids and given IV Protonix. Patient was admitted in September, with intractable nausea/vomiting and abdominal pain. Was seen by General surgery and GI during previous admission and no specific diagnosis was made. Chest pain. reported cp with inspiration that radiated to neck and head and back of neck. EKG without acute changes . normal VS, o2 sat 97% on ra. given one dose of IV lorazepam with good effect o further chest pain noted Abdominal pain. unclear cause, has had extensive workup in the past which is all but negative. CT abdomen/pelvis negative, LFTs negative. Follow up with GI o/p for further workup of possible connective tissue disorder Dizziness. chronic, MRI negative for acute stroke. continue prn meclizine Leukocytosis, likely reactive Insulin-dependent diabetes mellitus with hyperglycemia. continue home medications Hypothyroidism. Continue home Synthroid Moderate persistent asthma without acute exacerbation. Continue home inhalers Mood disorder. Continue home mood stabilizers Congestive heart failure with preserved ejection fraction. not on diuretics Mixed hyperlipidemia.statin Essential hypertension. continue clonidine, metoprolol MARY. CPAP at bedtime Obesity. BMI 40.4 Counseled regarding diet and exercise Time Attestation Discharge Coordination Time (in mins): 40 Quality: Safe Use of Opioids Does Pt have an Active Cancer Diagnosis on the Problem List?: No Quality: Stroke Does the patient have a stroke diagnosis?: No Physical Exam Vital Signs: Vital Signs: Last Vital Signs Temp 97.5 F 12/03/24 07:47 Pulse 71 12/03/24 07:58 Resp 18 12/03/24 07:58 BP 103/50 L 12/03/24 07:47 Pulse Ox 94 12/03/24 07:47 O2 Del Method Room Air 12/03/24 07:47 BMI result Body Mass Index 40.4 Appearing in no acute distress head is normocephalic atraumatic eyes pupils are PERRLA sclera is anicteric mouth throat mucous membranes are intact and moist neck is supple no lymphadenopathy, no JVD noted lung sounds are clear to auscultation heart regular rate rhythm, clear S1, S2 positive bowel sounds, abdomen is soft, nontender neuro patient is alert x3, no focal deficits DS: Data Data Completed and Pending Completed studies during hospitalization [Text1]: Procedures Assistance with Respiratory Ventilation, Less than 24 Consecutive Hours, Continuous Positive Airway Pressure (06/30/23) Excision of Ascending Colon, Via Natural or Artificial Opening Endoscopic, Diagnostic (09/11/23) Excision of Cecum, Via Natural or Artificial Opening Endoscopic, Diagnostic (09/11/23) Excision of Ileum, Via Natural or Artificial Opening Endoscopic, Diagnostic (09/11/23) Inspection of Upper Intestinal Tract, Via Natural or Artificial Opening Endoscopic (09/11/23) Labs on day of discharge: Laboratory Results - last 24 hr 12/02/24 12/02/24 12/02/24 06:05 16:08 21:12 WBC RBC Hgb Hct MCV MCH MCHC RDW Plt Count MPV Absolute Nucleated RBC Nucleated RBC % (auto) POC Glucose 109 101 C-Reactive Protein 1.47 H 12/03/24 12/03/24 12/03/24 07:19 10:25 11:18 WBC 10.0 RBC 4.49 Hgb 10.8 L Hct 34.9 L MCV 77.7 L MCH 24.1 L MCHC 30.9 L RDW 17.4 H Plt Count 226 MPV 11.2 Absolute Nucleated RBC 0.000 Nucleated RBC % (auto) 0.0 POC Glucose 107 105 C-Reactive Protein Preliminary micro results at discharge 12/02/24 02:24 Blood Culture - Preliminary Blood - Venous No growth after 24 hours. 12/02/24 02:24 Blood Culture - Preliminary Blood - Venous No growth after 24 hours. Discharge Plan Discharge Anticipated Discharge Date/Time: 12/03/24 12:53 Patient Disposition: Home, Self-Care Discharge Diagnosis: Chest pain Abdominal pain Dizziness Leukocytosis Referrals: Jenny Mendosa MD [Primary Care Provider] - 1 Week Discharge Medications: New oxycodone 5 mg tablet 5 mg PO Q8H PRN (Reason: pain) Qty: 12 0RF Rx Instructions: Partial Fill upon patient request. Continued meclizine 25 mg tablet 25 mg PO DAILY PRN (Reason: dizziness) 90 Days Qty: 90 0RF (DME) ear thermometer Misc See Rx Instructions .Route Qty: 6 0RF Rx Instructions: As directed metoprolol succinate 50 mg tablet extended release 24 hr 50 mg PO DAILY 90 Days Qty: 90 1RF (DME) BP monitor large See Rx Instructions .Route .MEDSUPPLY Qty: 1 0RF Rx Instructions: As directed (DME) blood pressure monitor Kit See Rx Instructions .Route Qty: 1 0RF Rx Instructions: Use as needed albuterol sulfate 2.5 mg /3 mL (0.083 %) solution for nebulization 2.5 mg inhalation Q6H PRN (Reason: shortness of breath or wheezing) 30 Days Qty: 180 11RF atorvastatin 10 mg tablet 10 mg PO BEDTIME Qty: 90 1RF levothyroxine 112 mcg tablet 112 mcg PO DAILY@0600 Qty: 90 1RF ferrous sulfate 325 mg (65 mg iron) tablet 325 mg PO DAILY 90 Days Qty: 90 1RF (DME) blood pressure test kit-large Kit See Rx Instructions .ROUTE .MEDSUPPLY Qty: 1 0RF Rx Instructions: As directed (DME) recliner See Rx Instructions .Route .MEDSUPPLY Qty: 1 0RF Rx Instructions: As directed fluticasone furoate-vilanterol [Breo Ellipta] 200-25 mcg/dose blister with device 1 inh inhalation DAILY 30 Days Qty: 1 0RF (DME) FreeStyle Test Strip See Rx Instructions .Route Qty: 100 3RF Rx Instructions: Use 1 test strip once a day diphenoxylate-atropine [Lomotil] 2.5-0.025 mg tablet 1 tab PO BID PRN (Reason: diarrhea) Qty: 14 0RF albuterol sulfate [Ventolin HFA] 90 mcg/actuation HFA aerosol inhaler 1 puff PO Q4H PRN (Reason: for wheezing) 30 Days Qty: 54 1RF hydrocortisone [Proctosol HC] 2.5 % cream with perineal applicator 1 appl [place] BID-QID PRN (Reason: hemorrhoids) Qty: 30 0RF sumatriptan succinate 25 mg tablet 25 mg PO Q2-4H PRN (Reason: migraine headache) 30 Days Qty: 9 0RF Rx Instructions: do not exceed 8 doses per 24 hrs hydroxyzine HCl 25 mg tablet 25 mg PO BEDTIME PRN (Reason: itching) 30 Days Qty: 30 0RF acetaminophen 650 mg tablet extended release 650 mg PO Q8H PRN (Reason: arthritis) 30 Days Qty: 90 1RF lorazepam 1 mg tablet 1 mg PO DAILY PRN (Reason: ANXIETY) trazodone 150 mg tablet 75 - 150 mg PO NEEDED zolpidem 5 mg tablet 5 mg PO BEDTIME PRN (Reason: Insomnia/Migraine) docusate sodium [Colace] 100 mg capsule 100 mg PO BID PRN (Reason: Constipation) insulin lispro [Humalog KwikPen Insulin] 100 unit/mL insulin pen 5 unit subcut DAILY@1700 Rx Instructions: with supper cholecalciferol (vitamin D3) 50 mcg (2,000 unit) capsule 50 mcg PO BEDTIME Trulicity 1.5 mg/0.5 mL pen injector 1.5 mg subcut TU insulin glargine [Lantus Solostar U-100 Insulin] 100 unit/mL (3 mL) insulin pen 15 unit subcut QAM Qty: 15 3RF (DME) pen needle, diabetic [BD Rosario 2nd Gen Pen Needle] 32 gauge x 5/32 needle See Rx Instructions .Route Qty: 100 3RF Rx Instructions: use 2x daily As directed (DME) nebulizers Kit See Rx Instructions .Route Rx Instructions: As directed (DME) CPAP Machine/Device Device See Rx Instructions .Route Rx Instructions: As directed glucose [Dex4 Glucose] 4 gram tablet,chewable 16 g PO Q15M PRN (Reason: hypoglycemia) Qty: 100 0RF Rx Instructions: until symptoms of low blood sugar are controlled hydroxyzine HCl 50 mg tablet 50 mg PO DAILY PRN (Reason: Itching) Rx Instructions: If 25mg dose ineffective. clonidine HCl 0.1 mg tablet 0.1 mg PO TID hyoscyamine sulfate 0.125 mg tablet,disintegrating 0.125 mg PO BID-QID PRN (Reason: dyspepsia) Qty: 30 1RF clonazepam 1 mg tablet 1 mg PO DAILY PRN (Reason: Anxiety) magnesium oxide 400 mg (241.3 mg magnesium) tablet 400 mg PO BEDTIME 90 Days Qty: 90 0RF Discharge Orders: Discharge Order (Routine); Ordered 12/03/24 Ordered By: Josie Martin Diet: Advance to usual diet Activity on Discharge: As tolerated Stand Alone Forms: Patient Portal Discharge page Print Language: Tunisian Care Plan Goals: Follow up with Gastroenterology for further workup of undiagnosed abdominal pain Health Concerns: Chest pain Abdominal pain Dizziness Leukocytosis Plan of Treatment: Follow-up with primary care provider as needed Take all medications as prescribed Assessment: See discharge summary
--- NOTE | 2024-12-03 13:32 | MHC.CM.PN ---
PT TO DC HOME TODAY WITH NO NEW SERVICES VIA [facility]
[2024-12-07 23:59] LABS: Porphyrins, Total Plasma 0.8 mcg/L (1.0-5.6)
[2024-12-08 11:39] LABS: Porphobilinogen, Random Urine 0.087 mg/g creat (<0.22)
[2024-12-09 01:28] LABS: Coproporphyrin I, 24Hr 25.8 mcg/24 h (7.1-48.7); Coproporphyrin III, 24Hr 52.6 mcg/24 h (11.0-148.5); Heptacarboxylporphyrin, 24U 1.5 mcg/24 h (< OR = 3.3); Porphyrins, Total 24 Hr 103.5 mcg/24 h (35.0-210.7); Total Volume, Porphyrins 24Hr 1500 mL; Uroporphyrin I, 24 Hr 16.2 mcg/24 h (4.1-22.4); Uroporphyrin III, 24Hr 7.4 mcg/24 h (0.7-7.4)
== END 2024-12-03 14:00 | disposition home or self-care (01) ==
LOC: HO.ED 04:20 → HO.EDOVER 05:42 → HO.S3 11:39
PROVIDERS: Internal Medicine Gastroenterology; Physician Assistant Medical; Admitting Provider Student in an Organized Health Care Education/Training Program; Emergency Provider Emergency Medicine; PCP Internal Medicine; Visit Provider Nurse Practitioner Acute Care
DX: R07.9 Chest pain, unspecified (principal); R10.11 Right upper quadrant pain; D72.829 Elevated white blood cell count, unspecified; R42 Dizziness and giddiness; F33.2 Major depressive disorder, recurrent severe without psychotic features; R11.2 Nausea with vomiting, unspecified; E78.2 Mixed hyperlipidemia; R51.9 Headache, unspecified; M54.2 Cervicalgia; H53.8 Other visual disturbances; E03.9 Hypothyroidism, unspecified; K21.9 Gastro-esophageal reflux disease without esophagitis; I11.0 Hypertensive heart disease with heart failure; I50.30 Unspecified diastolic (congestive) heart failure; E11.65 Type 2 diabetes mellitus with hyperglycemia; J45.30 Mild persistent asthma, uncomplicated; F39 Unspecified mood [affective] disorder; E78.5 Hyperlipidemia, unspecified; E66.9 Obesity, unspecified; Z68.41 Body mass index [BMI] 40.0-44.9, adult; Z79.4 Long term (current) use of insulin; Z03.818 Encounter for observation for suspected exposure to other biological agents ruled out
CPT/HCPCS: 0241U; 36415; 70551; 71045; 80048; 82542; 82947; 83540; 83605; 84106; 84120; 84145; 84484; 85025; 85027; 86140; 87040; 87086; 93005; 94640; 94660; 96361; 96372; 96374; 96375; 96376; 99221; 99285; J0696; J1650; J1885; J2060; J2270; J2405; J2470; J7120

== ENCOUNTER → 2024-12-01 00:45 | Outpatient (BNV) | payer OTHER, SELFPAY | PROVIDERS: Admitting Provider Student in an Organized Health Care Education/Training Program; Emergency Provider Emergency Medicine; PCP Internal Medicine; Visit Provider Internal Medicine Cardiovascular Disease | DX: R07.9 Chest pain, unspecified (principal); R94.31 Abnormal electrocardiogram [ECG] [EKG] | CPT/HCPCS: 93010 ==

== ENCOUNTER → 2024-12-01 00:46 | Outpatient (BNV) | payer OTHER, SELFPAY | PROVIDERS: Emergency Provider Emergency Medicine; PCP Internal Medicine; Visit Provider Radiology Diagnostic Radiology | DX: R90.82 White matter disease, unspecified (principal); R07.9 Chest pain, unspecified | CPT/HCPCS: 70551; 71045 ==

== ENCOUNTER 2024-12-01 05:35 | Outpatient (BNV) | payer OTHER, SELFPAY | END 2024-12-02 09:10 | PROVIDERS: Admitting Provider Student in an Organized Health Care Education/Training Program; Emergency Provider Emergency Medicine; PCP Internal Medicine; Visit Provider Internal Medicine Cardiovascular Disease | DX: R07.9 Chest pain, unspecified (principal); R94.31 Abnormal electrocardiogram [ECG] [EKG] | CPT/HCPCS: 93010 ==

== ENCOUNTER → 2024-12-01 05:35 | Outpatient (BNV) | payer OTHER, SELFPAY | PROVIDERS: Admitting Provider Student in an Organized Health Care Education/Training Program; Emergency Provider Emergency Medicine; PCP Internal Medicine; Visit Provider Internal Medicine Gastroenterology | DX: R10.9 Unspecified abdominal pain (principal) | CPT/HCPCS: 99223 ==

== ENCOUNTER → 2024-12-01 05:35 | Outpatient (BNV) | payer OTHER, SELFPAY | PROVIDERS: Admitting Provider Student in an Organized Health Care Education/Training Program; Emergency Provider Emergency Medicine; PCP Internal Medicine; Visit Provider Student in an Organized Health Care Education/Training Program | DX: F33.2 Major depressive disorder, recurrent severe without psychotic features (principal); E11.65 Type 2 diabetes mellitus with hyperglycemia; R10.9 Unspecified abdominal pain | CPT/HCPCS: 99222; 99232; 99239; 99499 ==

== ENCOUNTER 2024-12-19 13:06 | Emergency (ER) | payer OTHER, SELFPAY ==
--- NOTE | ~2024-12-19 | XR_ITS ---
EXAMINATION: XR ABDOMEN 1 VIEW (KUB) HISTORY: pain COMPARISON: Comparison is made with the prior examination dated 02/17/2023. FINDINGS: Two upright views of the abdomen are submitted. The bowel gas pattern is unremarkable, without evidence of mechanical obstruction. There is no free intraperitoneal gas. There is a moderate to large amount of stool throughout the colon. There are surgical clips in the right upper quadrant. No abnormal calcifications are identified. There are no abnormal soft tissue masses. The bones are intact. XR/XR KUB IMPRESSION: Moderate to large amount of stool throughout the colon. Electronically signed by: Shaquille Sanchez MD 12/19/2024 02:02 PM EDT
[2024-12-19 13:17] VITALS: BP 139/97; PULSE 92; RESP 20; TEMP 36.3; O2SAT 97; BMI 41.5
--- NOTE | 2024-12-19 13:26 | ED.GENADULT ---
HPI - General Adult General Chief complaint: Abdominal Pain Stated complaint: Vomiting 5 days, dizziness Time Seen by Provider: 12/19/24 17:45 Source: patient, family and old records reviewed Mode of arrival: ambulatory Limitations: no limitations History of Present Illness ED Provider: RICHELLE LEON narrative: 59 yo female PMH of obesity, migraines, DM, chronic constipation, GERD, vertigo, MARY, diabetic gastroparesis, HLD, asthma, anxiety, mood disorder who has had extensive GI work up for this in past with admissions and visits in November and December. She denies known triggers or stress. She states she has not eaten in 5 days due to vomiting and ODT zofran does not help. She also cannot have a BM. She feels dizzy again. She states she wants to know why this keeps happening to her. She has the same symptoms as before. MD complaint: n/v constipation dizziness, abdominal pain Onset (ago): month(s) Location: abdomen Radiation: non-radiation Severity: moderate Quality: dull Pain Consistency: constant Relieving factors: none Exacerbating factors: eating Associated symptoms: headaches, loss of appetite, nausea/vomiting and weakness Treatments prior to arrival: other Related Data Home Medications ?Medication ?Instructions ?Recorded ?Confirmed lorazepam 1 mg tablet 1 mg PO DAILY PRN ANXIETY 09/11/23 12/01/24 CPAP (CPAP Machine/Device) 03/01/24 10/26/24 nebulizers 03/01/24 10/26/24 hydroxyzine HCl 50 mg tablet 50 mg PO DAILY PRN Itching 07/21/24 12/01/24 clonazepam 1 mg tablet 1 mg PO DAILY PRN Anxiety 10/26/24 12/01/24 clonidine HCl 0.1 mg tablet 0.1 mg PO TID 11/17/24 12/01/24 cholecalciferol (vitamin D3) 50 50 mcg PO BEDTIME 12/01/24 12/01/24 mcg (2,000 unit) capsule docusate sodium 100 mg capsule 100 mg PO BID PRN Constipation 12/01/24 12/01/24 (Colace) dulaglutide 1.5 mg/0.5 mL 1.5 mg subcut TU 12/01/24 12/01/24 subcutaneous pen injector (Trulicity) insulin lispro 100 unit/mL 5 unit subcut DAILY@1700 12/01/24 12/01/24 subcutaneous pen (Humalog KwikPen (U-100) Insulin) trazodone 150 mg tablet 75 - 150 mg PO NEEDED 12/01/24 12/01/24 Insomnia/Headache zolpidem 5 mg tablet 5 mg PO BEDTIME PRN 12/01/24 12/01/24 Insomnia/Migraine Previous Rx's ?Medication ?Instructions ?Recorded meclizine 25 mg tablet 25 mg PO DAILY PRN dizziness 90 03/15/24 days #90 tabs glucose 4 gram chewable tablet 16 g (4 x 4 gram) PO Q15M PRN 05/12/24 (Dex4 Glucose) hypoglycemia #100 tabs ear thermometer #6 ea 06/30/24 BP monitor #1 ea 07/12/24 metoprolol succinate 50 mg 50 mg PO DAILY 90 days #90 tabs 07/12/24 tablet,extended release 24 hr blood pressure monitor #1 ea 07/13/24 albuterol sulfate 2.5 mg/3 mL 2.5 mg (3 mL) inhalation Q6H PRN 07/20/24 (0.083 %) solution for nebulization shortness of breath or wheezing 30 days #180 mL atorvastatin 10 mg tablet 10 mg PO BEDTIME #90 tabs 08/06/24 levothyroxine 112 mcg tablet 112 mcg PO DAILY@0600 #90 tabs 08/06/24 blood pressure test kit-large #1 ea 08/11/24 ferrous sulfate 325 mg (65 mg 325 mg PO DAILY 90 days #90 tabs 08/11/24 iron) tablet insulin glargine 100 unit/mL (3 15 unit (0.15 mL) subcut QAM #15 mL 08/11/24 mL) subcutaneous pen (Lantus Solostar U-100 Insulin) recliner #1 ea 08/11/24 fluticasone furoate 200 1 inh inhalation DAILY 30 days #1 08/14/24 mcg-vilanterol 25 mcg/dose ea inhalation powder (Breo Ellipta) diphenoxylate-atropine 2.5 1 tab PO BID PRN diarrhea #14 tabs 08/30/24 mg-0.025 mg tablet (Lomotil) albuterol sulfate 90 mcg/actuation 1 puff PO Q4H PRN for wheezing 30 09/20/24 aerosol inhaler (Ventolin HFA) days #54 ea magnesium oxide 400 mg (241.3 mg 400 mg PO BEDTIME 90 days #90 tabs 10/26/24 magnesium) tablet hydroxyzine HCl 25 mg tablet 25 mg PO BEDTIME PRN itching 30 11/11/24 days #30 tabs hyoscyamine sulfate 0.125 mg 0.125 mg PO BID-QID PRN dyspepsia 11/17/24 disintegrating tablet #30 tabs acetaminophen 650 mg 650 mg PO Q8H PRN arthritis 30 11/27/24 tablet,extended release days #90 tabs hydrocortisone 1 %-pramoxine 1 % 1 appl NV QID PRN hemorrhoids #10 12/03/24 rectal foam (Proctofoam HC) grams loperamide 2 mg capsule 2 mg PO Q6H PRN loose stool #16 12/03/24 (Anti-Diarrheal (loperamide)) caps oxycodone 5 mg tablet 5 mg PO Q8H PRN pain #12 tabs 12/03/24 alcohol swabs (Alcohol Prep Pads) 1 pad topical BID-TID 30 days #100 12/07/24 ea blood sugar diagnostic (FreeStyle #100 ea 12/07/24 Test strips) pen needle, diabetic 32 gauge x #100 ea 12/07/2432 (BD Rosario 2nd Gen Pen Needle) sodium,potassium,mag sulfates 17.5 See Rx Instructions PO .COMPLEX 12/11/24 gram-3.13 gram-1.6 gram oral soln #354 mL (Suprep Bowel Prep Kit) sumatriptan succinate 25 mg tablet 25 mg PO Q2-4H PRN migraine 12/11/24 headache 30 days #9 tabs hydrocortisone 2.5 % topical cream 1 appl NV BID-QID PRN hemorrhoids 12/15/24 with perineal applicator #30 grams (Proctosol HC) prochlorperazine maleate 10 mg 10 mg PO BID PRN nausea and 12/19/24 tablet (Compazine) vomiting #20 tabs Allergies Allergy/AdvReac Type Severity Reaction Status Date / Time Penicillins Allergy Severe swelling Verified 12/19/24 13:21 adhesive tape [ADHESIVE TAPE] Allergy Intermediate RASH Verified 12/19/24 13:21 amoxicillin [AMOXICILLIN] Allergy Intermediate RASH,SWELLI Verified 12/19/24 13:21 NG ibuprofen [From Motrin] Allergy Intermediate Hypertensio Verified 12/19/24 13:21 n latex Allergy Intermediate Rash Verified 12/19/24 13:21 Review of Systems Review of Systems: Constitutional : No Weight loss, No Fever, No Chills ENT/Mouth : No sore throat, No Rhinorrhea Eyes: No Swelling, No Redness Cardiovascular : No Chest Pain, No SOB, NoEdema Respiratory : No Cough, No Sputum, No Wheezing Gastrointestinal : Positive Nausea, Positive Vomiting, no Diarrhea, positive abdominal Pain, No Hematochezia, No Melena, pos constipation Genitourinary : No Dysuria, No Urinary Frequency, No Hematuria, No Urgency Musculoskeletal : No joint pain, No Myalgias, No Joint Swelling Skin : No Skin Lesions, No rash Neuro : No Weakness, No Numbness, No Dizziness, No Headache Psych : No Anxiety/Panic, No Depression Heme/Lymph: No Bruising, No Lymphadenopathy Endocrine : No Polyuria, No Polydipsia All other systems reviewed and are negative. [facility] Past Medical History Attestation statement: The following information was validated with the patient. Source: old records reviewed Medical History Essential hypertension Left shoulder pain Type 2 diabetes mellitus Hyperparathyroidism Erosive esophagitis Hypertension Acute diarrhea Pre-op examination Cervical radiculopathy Rash of foot Kiera albicans infection Cervicalgia Environmental allergies Hospital discharge follow-up MARY on CPAP Elevated red blood cell count Screening for hyperlipidemia Chronic pain syndrome Lumbar pain Encounter for annual routine gynecological examination Multiple air fluid levels of small intestine determined by X-ray Abdominal bloating Hypothyroid Sleep apnea Abdominal cramping Edema Anxiety with depression Chronic pain (Unknown) Gastroparesis Left knee pain Hypothyroidism Bilateral shoulder pain Hyperlipidemia LDL goal <70 Degeneration, intervertebral disc, cervical Spondylosis of cervical spine at multiple levels without myelopathy Sleep apnea Renal calculi Incontinence Goiter Disc degeneration, lumbar Spondylosis of lumbar region without myelopathy or radiculopathy Arthropathy of facet joint Insomnia LUDY (generalized anxiety disorder) Moderately severe recurrent major depression Chronic pain syndrome Morbid (severe) obesity due to excess calories Fibromyalgia Small bowel motility disorder Chronic idiopathic constipation Asthma Surgical History History of knee replacement procedure of right knee History of hernia surgery Hx of colonoscopy History of esophagogastroduodenoscopy (EGD) History of cholecystectomy Delivery by section History of hysterectomy Family History Family History Father Past heart attack Anxiety Mother MOF (multiple organ failure) Brother HIV (human immunodeficiency virus infection) Sister Ovarian cancer Lupus Bone cancer Uterine cancer Tumor Daughter Guillain-[place] Sister Lupus History of open heart surgery Family/Other Depression FH: mental illness Maternal Aunt Breast cancer Maternal Aunt Tumor Social History Social History Household Members: None Household Members Other:: Housing: Apartment Are you a primary home care administrator to a significant other at home: No Do you presently have visiting nurse or other home services: Yes Alcohol intake: never Patient Tobacco Use Status: Never used Tobacco Smoked in Last 30 Days: No e-Cigarette/Vaping Use: Never Used Second Hand Smoke Exposure: Yes Use of substances other than those prescribed or required for medical reasons: No Advance Directives: Yes Advance Directives on File: Yes Advance Directives Date on File: 12/08/21 Do you have a plan to hurt others: No Plan service: No Current occupational status: unemployed and disabled Cognitive needs: Yes Hearing needs: No Vision needs: No Physical Exam ED Vital Signs: Vital Signs - 24 hr 12/19/24 13:17 12/19/24 17:57 12/19/24 19:36 Temperature 97.3 F 97.4 F 97.1 F Pulse Rate 92 80 77 Respiratory Rate 20 16 16 Blood Pressure 139/97 H 191/74 H 181/87 H Pulse Oximetry 97 99 94 Oxygen Delivery Method Room Air Room Air Room Air 12/19/24 20:25 12/19/24 20:25 12/19/24 21:26 Temperature 98.7 F Pulse Rate 77 89 Respiratory Rate 16 Blood Pressure 181/87 H 181/87 H 107/65 Pulse Oximetry 92 Oxygen Delivery Method Room Air BMI result Body Mass Index 41.5 Appearance: Alert. Oriented X3. No acute distress. She is asking for water while dry heaving Eyes: Pupils equal, round and reactive to light. ENT: Pharynx normal. Neck: Normal inspection. Neck supple. CVS: Normal heart rate and rhythm. Pulses normal. Respiratory: No respiratory distress. Breath sounds normal. Abdomen: Soft and not distended mild diffuse ttp no rebound or guarding. Skin: Skin warm and dry. Normal skin color. Normal skin turgor. Extremities: No lower extremity edema. No calf ttp Neuro: Oriented X 3. No motor deficit. No sensory deficit. CN2-12 intact Course Course Course Narrative: This is a rapid medical exam performed by Dorothea Moon PA-C. The patient is a 59-year-old female with a extensive past medical history including chronic pain, diabetes, obesity, GERD, with recent hospital admission December 01 through December 03, having had an extensive workup including brain MRI, CT abdomen and pelvis etcetera, returning with similar symptoms of abdominal pain nausea vomiting and constipation. On exam, patient has a obese abdomen, is not objectively distended, she is actively vomiting. We will be screening basic labs and a KUB. The patient was stable and can return to the waiting room pending her full medical assessment. We did premedicate with meclizine and Zofran Reevaluation(s) Reevaluation #1: signed out to Dr. Neal pending recheck of BP Medications Administered Discontinued Medications Generic Name Dose Route Start Last Admin Trade Name Freq PRN Reason Stop Dose Admin Clonidine HCl 0.1 mg 12/19/24 20:10 12/19/24 20:25 Clonidine Hcl 0.1 Mg Tablet PO 12/19/24 20:11 0.1 mg ONCE ONE Administration Protocol Lactated Ringer's 1,000 mls @ 999 mls/hr 12/19/24 18:04 12/19/24 22:00 Lr IV 12/19/24 19:04 Infused .Q1H1M ONE Infusion Acetaminophen 1,000 mg in 100 mls @ 400 mls/hr 12/19/24 20:10 12/19/24 20:40 Ofirmev IV 12/19/24 20:24 Infused ONCE ONE Infusion Lorazepam 1 mg 12/19/24 18:04 12/19/24 18:21 Lorazepam 2 Mg/Ml Vial IVPUSH 12/19/24 18:05 1 mg STAT STA Administration Meclizine HCl 50 mg 12/19/24 13:21 12/19/24 13:27 Meclizine Hcl 25 Mg Tablet PO 12/19/24 13:22 50 mg ONCE ONE Administration Metoprolol Succinate 50 mg 12/19/24 20:10 12/19/24 20:25 Metoprolol Succinate Er 50 Mg Tab.Er.24h PO 12/19/24 20:11 50 mg ONCE ONE Administration Protocol Ondansetron HCl 4 mg 12/19/24 13:21 12/19/24 13:27 Ondansetron Odt 4 Mg Tab.Rapdis TRANSLINGU 12/19/24 13:22 4 mg ONCE ONE Administration Prochlorperazine Edisylate 10 mg 12/19/24 18:04 12/19/24 18:21 Prochlorperazine Edisylate 10 Mg/2 Ml Vial IVPUSH 12/19/24 18:05 10 mg ONCE ONE Administration Medical Decision Making Medical Decision Making [facility] Narrative: 59 yo female PMH of obesity, migraines, DM, chronic constipation, GERD, vertigo, MARY, diabetic gastroparesis, HLD, asthma, anxiety, mood disorder here again with same symptoms of n/v and constipation. She also c/o headaches she states she has had this for a long time. At this time will start on IVF, provide compazine and ativan. She is already asking to drink water on arrival which is a good sign. Given the chronic headaches I doubt she has [employer] infection or SAH. Will monitor for improvement Differential Diagnosis Differential Diagnoses: The differential diagnosis associated with the presentation includes gastroparesis, migraines, chronic n/v Admission/Observation Consideration of admission/observation: Escalation of care including admission/observation considered she has tolerated PO and her BP medications at this time she has not vomited in 7 hours her labs are reassuring and no signs of dehydration she can be managed as an outpatient I will put in PRN nausea medications compazine seems to work well for her received sign-out from my colleague Dr. Robles patient has not had any episodes of vomiting patient requesting to drink water, Patient feeling better blood pressure 1/0 sober over 65, pulse 89, oxygen saturation 92% on room air. Lab Data [facility] Lab Attestation statement: I reviewed the patient's lab results. repeat lipase normal small bump in bili and AST but suspect due to fatty liver vs vomiting - chronic leukocytosis she has had prior cholecystectomy 12/19/24 13:35 12/19/24 13:36 Labs: Lab Results 12/19/24 12/19/24 12/19/24 Range/Units 13:35 13:36 20:47 WBC 16.1 H (4.8-10.8) X10*3/uL RBC 5.81 H D (4.20-5.50) X10*6/uL Hgb 13.8 D (12.0-16.0) g/dl Hct 43.9 D (37.0-47.0) % MCV 75.6 L (80.0-98.0) fL MCH 23.8 L (27.0-33.0) pg MCHC 31.4 (31.0-35.0) g/dl RDW 18.0 H (11.0-16.0) % Plt Count 243 (160-400) X10*3/uL MPV 9.9 (9.4-12.3) fL Immature Gran % (Auto) 0.6 H (0.0-0.4) % Neut % (Auto) 83.0 H (45-73) % Lymph % (Auto) 12.0 L (20-40) % Cassia % (Auto) 4.0 (2-11) % Eos % (Auto) 0.1 (0-4) % Baso % (Auto) 0.3 (0-2) % Lymph # (Auto) 1.9 (1.2-4.9) X10*3/uL Cassia # (Auto) 0.7 (0.1-1.2) X10*3/uL Eos # (Auto) 0.0 (0.0-0.4) X10*3/uL Baso # (Auto) 0.1 (0.0-0.2) X10*3/uL Abs Immat Gran (auto) 0.09 H (0.00-0.03) X10*3/uL Absolute Neuts (auto) 13.4 H (2.0-8.3) x10*3/uL Absolute Nucleated RBC 0.000 (0.0-0.012) X10*3/uL Nucleated RBC % (auto) 0.0 (0.0-0.2) /100WBC Sodium 139 (135-145) mmol/L Potassium 3.4 (3.3-5.1) mmol/L Chloride 103 (96-108) mmol/L Carbon Dioxide 27 (22-29) mmol/L Anion Gap 12 (12-20) BUN 26 H (9-16) mg/dL Creatinine 0.78 (0.5-1.4) mg/dL Estim Creat Clear Calc 105.5 Estimated GFR > 60 Random Glucose 164 H (60-115) mg/dL Calcium 9.1 D (8.4-10.2) mg/dL Magnesium 2.2 (1.6-2.6) mg/dL Total Bilirubin 1.3 H (0.0-1.0) mg/dL AST 30 (5-31) U/L ALT 34 H (0-31) U/L Alkaline Phosphatase 115 (39-117) U/L Total Protein 8.3 H (6.5-8.0) g/dL Albumin 4.1 (3.5-5.0) g/dL Lipase 154 H 37 (8-78) U/L Independent Interpretation I performed an independent interpretation of an: Plain X-Ray (constipation) Radiology Impression Discussion of test interpretation with radiology: I have reviewed the radiologist's reading. Independent Historian Clinical information obtained from an independent historian. History obtained from or confirmed by: Other (family) External Record Review External record reviewed: Inpatient record and Outpatient record Prescription Management I considered prescription management with: Other Discharge Plan Discharge Clinical Impression: Acute migraine Nausea & vomiting Qualifiers: Vomiting type: unspecified Qualified Code(s): R11.2 - Nausea with vomiting, unspecified Patient Disposition: Home, Self-Care Instructions: Migraine Headache (ED), Acute Nausea and Vomiting (ED) Additional Instructions: your repeat labs were reassuring you were able to keep down your medications you were given your night doses of clonidine and metoprolol please follow up with your primary care doctor and your GI doctor this week return for any worsening symptoms or concerns. Prescriptions: New prochlorperazine maleate [Compazine] 10 mg tablet 10 mg PO BID PRN (Reason: nausea and vomiting) Qty: 20 0RF No Action meclizine 25 mg tablet 25 mg PO DAILY PRN (Reason: dizziness) 90 Days Qty: 90 0RF (DME) ear thermometer Misc See Rx Instructions .Route Qty: 6 0RF Rx Instructions: As directed metoprolol succinate 50 mg tablet extended release 24 hr 50 mg PO DAILY 90 Days Qty: 90 1RF (DME) BP monitor large See Rx Instructions .Route .MEDSUPPLY Qty: 1 0RF Rx Instructions: As directed (DME) blood pressure monitor Kit See Rx Instructions .Route Qty: 1 0RF Rx Instructions: Use as needed albuterol sulfate 2.5 mg /3 mL (0.083 %) solution for nebulization 2.5 mg inhalation Q6H PRN (Reason: shortness of breath or wheezing) 30 Days Qty: 180 11RF atorvastatin 10 mg tablet 10 mg PO BEDTIME Qty: 90 1RF levothyroxine 112 mcg tablet 112 mcg PO DAILY@0600 Qty: 90 1RF ferrous sulfate 325 mg (65 mg iron) tablet 325 mg PO DAILY 90 Days Qty: 90 1RF (DME) blood pressure test kit-large Kit See Rx Instructions .ROUTE .MEDSUPPLY Qty: 1 0RF Rx Instructions: As directed (DME) recliner See Rx Instructions .Route .MEDSUPPLY Qty: 1 0RF Rx Instructions: As directed fluticasone furoate-vilanterol [Breo Ellipta] 200-25 mcg/dose blister with device 1 inh inhalation DAILY 30 Days Qty: 1 0RF diphenoxylate-atropine [Lomotil] 2.5-0.025 mg tablet 1 tab PO BID PRN (Reason: diarrhea) Qty: 14 0RF albuterol sulfate [Ventolin HFA] 90 mcg/actuation HFA aerosol inhaler 1 puff PO Q4H PRN (Reason: for wheezing) 30 Days Qty: 54 1RF hydroxyzine HCl 25 mg tablet 25 mg PO BEDTIME PRN (Reason: itching) 30 Days Qty: 30 0RF acetaminophen 650 mg tablet extended release 650 mg PO Q8H PRN (Reason: arthritis) 30 Days Qty: 90 1RF (DME) FreeStyle Test Strip See Rx Instructions .Route Qty: 100 3RF Rx Instructions: Use 1 test strip once a day alcohol swabs [Alcohol Prep Pads] Pads, Medicated 1 pad topical BID-TID 30 Days Qty: 100 2RF (DME) pen needle, diabetic [BD Rosario 2nd Gen Pen Needle] 32 gauge x 5/32 needle See Rx Instructions .Route Qty: 100 3RF Rx Instructions: use 2x daily As directed sumatriptan succinate 25 mg tablet 25 mg PO Q2-4H PRN (Reason: migraine headache) 30 Days Qty: 9 0RF Rx Instructions: do not exceed 8 doses per 24 hrs sodium,potassium,mag sulfates [Suprep Bowel Prep Kit] 17.5-3.13-1.6 gram recon soln See Rx Instructions PO .COMPLEX Qty: 354 0RF Rx Instructions: DILUTE; drink 1/2 at 6-8 pm and half at 11 PM- 1AM hydrocortisone [Proctosol HC] 2.5 % cream with perineal applicator 1 appl NV BID-QID PRN (Reason: hemorrhoids) Qty: 30 0RF lorazepam 1 mg tablet 1 mg PO DAILY PRN (Reason: ANXIETY) trazodone 150 mg tablet 75 - 150 mg PO NEEDED zolpidem 5 mg tablet 5 mg PO BEDTIME PRN (Reason: Insomnia/Migraine) docusate sodium [Colace] 100 mg capsule 100 mg PO BID PRN (Reason: Constipation) insulin lispro [Humalog KwikPen Insulin] 100 unit/mL insulin pen 5 unit subcut DAILY@1700 Rx Instructions: with supper cholecalciferol (vitamin D3) 50 mcg (2,000 unit) capsule 50 mcg PO BEDTIME Trulicity 1.5 mg/0.5 mL pen injector 1.5 mg subcut TU oxycodone 5 mg tablet 5 mg PO Q8H PRN (Reason: pain) Qty: 12 0RF Rx Instructions: Partial Fill upon patient request. Proctofoam HC 1-1 % foam 1 appl NV QID PRN (Reason: hemorrhoids) Qty: 10 0RF loperamide [Anti-Diarrheal (loperamide)] 2 mg capsule 2 mg PO Q6H PRN (Reason: loose stool) Qty: 16 0RF insulin glargine [Lantus Solostar U-100 Insulin] 100 unit/mL (3 mL) insulin pen 15 unit subcut QAM Qty: 15 3RF (DME) nebulizers Kit See Rx Instructions .Route Rx Instructions: As directed (DME) CPAP Machine/Device Device See Rx Instructions .Route Rx Instructions: As directed glucose [Dex4 Glucose] 4 gram tablet,chewable 16 g PO Q15M PRN (Reason: hypoglycemia) Qty: 100 0RF Rx Instructions: until symptoms of low blood sugar are controlled hydroxyzine HCl 50 mg tablet 50 mg PO DAILY PRN (Reason: Itching) Rx Instructions: If 25mg dose ineffective. clonidine HCl 0.1 mg tablet 0.1 mg PO TID hyoscyamine sulfate 0.125 mg tablet,disintegrating 0.125 mg PO BID-QID PRN (Reason: dyspepsia) Qty: 30 1RF clonazepam 1 mg tablet 1 mg PO DAILY PRN (Reason: Anxiety) magnesium oxide 400 mg (241.3 mg magnesium) tablet 400 mg PO BEDTIME 90 Days Qty: 90 0RF Print Language: Liberian
[2024-12-19] MEDS: Meclizine HCl 25 MG TABLET 50 MG PO (13:27)
[2024-12-19] MEDS: Ondansetron ODT 4 MG TAB.RAPDIS TRANSLINGU (13:27)
[2024-12-19 13:42] LABS: MANUAL DIFF FLAG NO
[2024-12-19 13:43] LABS: Basophils Absolute Auto 0.1 X10*3/uL (0.0-0.2); Basophils Percent Auto 0.3 % (0-2); Eosinophils Percent Auto 0.1 % (0-4); Hematocrit 43.9 % (37.0-47.0); Hemoglobin 13.8 g/dl (12.0-16.0); Imm Gran Abs Auto 0.09 X10*3/uL (0.00-0.03); Imm Gran Pct Auto 0.6 % (0.0-0.4); Lymphocytes Absolute Auto 1.9 X10*3/uL (1.2-4.9); Mean Corpuscular HGB Conc 31.4 g/dl (31.0-35.0); Mean Corpuscular Hemoglobin 23.8 pg (27.0-33.0); Mean Corpuscular Volume 75.6 fL (80.0-98.0); Mean Platelet Volume 9.9 fL (9.4-12.3); Monocytes Absolute Auto 0.7 X10*3/uL (0.1-1.2); Neutrophils Absolute Auto 13.4 x10*3/uL (2.0-8.3); Platelet Count 243 X10*3/uL (160-400); Red Blood Count 5.81 X10*6/uL (4.20-5.50); White Blood Count 16.1 X10*3/uL (4.8-10.8)
[2024-12-19 13:59] LABS: Alanine Aminotransferase 34 U/L (0-31); Albumin Level 4.1 g/dL (3.5-5.0); Alkaline Phosphatase 115 U/L (39-117); Anion Gap 12 (12-20); Aspartate Amino Transferase 30 U/L (5-31); Bilirubin Total 1.3 mg/dL (0.0-1.0); Blood Urea Nitrogen 26 mg/dL (9-16); Calcium 9.1 mg/dL (8.4-10.2); Carbon Dioxide 27 mmol/L (22-29); Chloride 103 mmol/L (96-108); Creatinine Clr Calc Pharmacy 105.5; Estimated Glomerular Filt Rate > 60; Glucose Random 164 mg/dL (60-115); Lipase 154 U/L (8-78); Magnesium 2.2 mg/dL (1.6-2.6); Potassium 3.4 mmol/L (3.3-5.1); Sodium 139 mmol/L (135-145); Total Protein 8.3 g/dL (6.5-8.0)
[2024-12-19 17:57] VITALS: BP 191/74; PULSE 80; RESP 16; TEMP 36.3; O2SAT 99
[2024-12-19] MEDS: LORazepam 2 MG/ML VIAL 1 MG IVPUSH (18:21)
[2024-12-19] MEDS: Prochlorperazine Edisylate 10 MG/2 ML VIAL IVPUSH (18:21)
[2024-12-19] MEDS: Lactated Ringers 1,000 ML 999 ML IV (18:26)
[2024-12-19 19:36] VITALS: BP 181/87; PULSE 77; RESP 16; TEMP 36.2; O2SAT 94
--- NOTE | 2024-12-19 20:12 | MHC.EDTECH ---
WARREN Fitzpatrick said not to draw Patient repeated lipace until fluids are finished .
[2024-12-19 20:25] VITALS: BP 181/87; PULSE 77
[2024-12-19] MEDS: Acetaminophen 1,000 MG/100 ML PIGGYBACK 400 MG IV (20:25)
[2024-12-19] MEDS: cloNIDine HCL 0.1 MG TABLET PO (20:25)
[2024-12-19] MEDS: Metoprolol Succinate ER 50 MG TAB.ER.24H PO (20:25)
[2024-12-19 21:04] LABS: Lipase 37 U/L (8-78)
[2024-12-19 21:26] VITALS: BP 107/65; PULSE 89; RESP 16; TEMP 37.1; O2SAT 92
[2024-12-20 00:26] VITALS: BP 112/86; PULSE 86; RESP 18; TEMP 36.9; O2SAT 94
== END 2024-12-19 23:40 | disposition home or self-care (01) ==
PROVIDERS: Physician Assistant Medical; Emergency Provider Emergency Medicine; PCP Internal Medicine
DX: G43.909 Migraine, unspecified, not intractable, without status migrainosus (principal); K59.00 Constipation, unspecified; R11.2 Nausea with vomiting, unspecified
CPT/HCPCS: 36415; 74018; 80053; 83690; 83735; 85025; 96361; 96374; 96375; 99284; 99285; J0131; J0737; J2060; J7120

== ENCOUNTER → 2024-12-19 13:22 | Outpatient (BNV) | payer OTHER, SELFPAY | PROVIDERS: PCP Internal Medicine; Visit Provider Radiology Diagnostic Radiology | DX: R19.5 Other fecal abnormalities (principal) | CPT/HCPCS: 74018 ==

== ENCOUNTER 2024-12-24 15:46 | Emergency (ER) | payer OTHER, SELFPAY ==
[2024-12-24] VITALS (10 sets, daily range): BP systolic 165–218; BP diastolic 75–88; PULSE 56–85; RESP 18–20; TEMP 36.6–36.9; O2SAT 95–97; BMI 41.6
--- NOTE | 2024-12-24 16:01 | ED.GENADULT ---
HPI - General Adult General Chief complaint: General Medical Stated complaint: non stop urinating / dizzy / nausea Time Seen by Provider: 12/24/24 16:34 Source: patient History of Present Illness ED Provider: Dr. Indio Smyth HPI narrative: 59-year-old female with pertinent history of hypertension, mixed hyperlipidemia, mood disorder, insulin-dependent diabetes mellitus, hypothyroidism, gastroesophageal reflux disease, congestive heart failure with preserved EF, MARY on CPAP, asthma not on home oxygen who presents to the emergency department for evaluation nausea, vomiting , chest pain and abdominal pain which started this afternoon prior to the patient coming to the emergency department. Patient states she has been here multiple times and she was also been admitted recently for similar pain. She states that no one has been able to tell her the cause of her symptoms. The patient complains of diffuse abdominal pain which is worse in her right upper quadrant and her epigastric area. She states that the pain is severe 10/10. She also complained of a pressure-like chest pain located in the sternal area, 10/10 at its worse. Patient states that she was vomited multiple times. She states she was had subjective fever, chills and rhinorrhea. She denied cough, shortness of breath Or Dyspnea on exertion. I reviewed the discharge note dated . Patient had a similar presentation over a 2 day period. She also complained of dizziness and room spinning with double vision. Patient had a CT scan of the abdomen pelvis which was normal. She also had an MRI of the brain which was unremarkable. She was seen by general surgery and GI without any specific recommendations or diagnosis made. Related Data Home Medications ?Medication ?Instructions ?Recorded ?Confirmed lorazepam 1 mg tablet 1 mg PO DAILY PRN ANXIETY 09/11/23 12/01/24 CPAP (CPAP Machine/Device) 03/01/24 10/26/24 nebulizers 03/01/24 10/26/24 hydroxyzine HCl 50 mg tablet 50 mg PO DAILY PRN Itching 07/21/24 12/01/24 clonazepam 1 mg tablet 1 mg PO DAILY PRN Anxiety 10/26/24 12/01/24 clonidine HCl 0.1 mg tablet 0.1 mg PO TID 11/17/24 12/01/24 cholecalciferol (vitamin D3) 50 50 mcg PO BEDTIME 02/28/25 02/28/25 mcg (2,000 unit) capsule docusate sodium 100 mg capsule 100 mg PO BID PRN Constipation 12/01/24 12/01/24 (Colace) dulaglutide 1.5 mg/0.5 mL 1.5 mg subcut TU 12/01/24 12/01/24 subcutaneous pen injector (Trulicity) insulin lispro 100 unit/mL 5 unit subcut DAILY@1700 12/01/24 12/01/24 subcutaneous pen (Humalog KwikPen (U-100) Insulin) trazodone 150 mg tablet 75 - 150 mg PO NEEDED 12/01/24 12/01/24 Insomnia/Headache zolpidem 5 mg tablet 5 mg PO BEDTIME PRN 12/01/24 12/01/24 Insomnia/Migraine Previous Rx's ?Medication ?Instructions ?Recorded meclizine 25 mg tablet 25 mg PO DAILY PRN dizziness 90 03/15/24 days #90 tabs glucose 4 gram chewable tablet 16 g (4 x 4 gram) PO Q15M PRN 05/12/24 (Dex4 Glucose) hypoglycemia #100 tabs ear thermometer #6 ea 06/30/24 BP monitor #1 ea 07/12/24 metoprolol succinate 50 mg 50 mg PO DAILY 90 days #90 tabs 07/12/24 tablet,extended release 24 hr blood pressure monitor #1 ea 07/13/24 albuterol sulfate 2.5 mg/3 mL 2.5 mg (3 mL) inhalation Q6H PRN 07/20/24 (0.083 %) solution for nebulization shortness of breath or wheezing 30 days #180 mL atorvastatin 10 mg tablet 10 mg PO BEDTIME #90 tabs 08/06/24 levothyroxine 112 mcg tablet 112 mcg PO DAILY@0600 #90 tabs 08/06/24 blood pressure test kit-large #1 ea 08/11/24 ferrous sulfate 325 mg (65 mg 325 mg PO DAILY 90 days #90 tabs 08/11/24 iron) tablet insulin glargine 100 unit/mL (3 15 unit (0.15 mL) subcut QAM #15 mL 08/11/24 mL) subcutaneous pen (Lantus Solostar U-100 Insulin) recliner #1 ea 08/11/24 fluticasone furoate 200 1 inh inhalation DAILY 30 days #1 08/14/24 mcg-vilanterol 25 mcg/dose ea inhalation powder (Breo Ellipta) diphenoxylate-atropine 2.5 1 tab PO BID PRN diarrhea #14 tabs 08/30/24 mg-0.025 mg tablet (Lomotil) albuterol sulfate 90 mcg/actuation 1 puff PO Q4H PRN for wheezing 30 09/20/24 aerosol inhaler (Ventolin HFA) days #54 ea magnesium oxide 400 mg (241.3 mg 400 mg PO BEDTIME 90 days #90 tabs 10/26/24 magnesium) tablet hydroxyzine HCl 25 mg tablet 25 mg PO BEDTIME PRN itching 30 11/11/24 days #30 tabs hyoscyamine sulfate 0.125 mg 0.125 mg PO BID-QID PRN dyspepsia 11/17/24 disintegrating tablet #30 tabs acetaminophen 650 mg 650 mg PO Q8H PRN arthritis 30 11/27/24 tablet,extended release days #90 tabs hydrocortisone 1 %-pramoxine 1 % 1 appl [place] QID PRN hemorrhoids #10 12/03/24 rectal foam (Proctofoam HC) grams loperamide 2 mg capsule 2 mg PO Q6H PRN loose stool #16 12/03/24 (Anti-Diarrheal (loperamide)) caps oxycodone 5 mg tablet 5 mg PO Q8H PRN pain #12 tabs 12/03/24 alcohol swabs (Alcohol Prep Pads) 1 pad topical BID-TID 30 days #100 12/07/24 ea blood sugar diagnostic (FreeStyle #100 ea 12/07/24 Test strips) pen needle, diabetic 32 gauge x #100 ea 12/07/24/32 (BD Rosario 2nd Gen Pen Needle) sodium,potassium,mag sulfates 17.5 See Rx Instructions PO .COMPLEX 12/11/24 gram-3.13 gram-1.6 gram oral soln #354 mL (Suprep Bowel Prep Kit) sumatriptan succinate 25 mg tablet 25 mg PO Q2-4H PRN migraine 12/11/24 headache 30 days #9 tabs hydrocortisone 2.5 % topical cream 1 appl [place] BID-QID PRN hemorrhoids 12/15/24 with perineal applicator #30 grams (Proctosol HC) prochlorperazine maleate 10 mg 10 mg PO BID PRN nausea and 12/19/24 tablet (Compazine) vomiting #20 tabs promethazine 25 mg rectal 25 mg OH Q6H PRN nausea and 12/24/24 suppository (Promethegan) vomiting #20 ea Allergies Allergy/AdvReac Type Severity Reaction Status Date / Time Penicillins Allergy Severe swelling Verified 12/24/24 16:02 adhesive tape [ADHESIVE TAPE] Allergy Intermediate RASH Verified 12/24/24 16:02 amoxicillin [AMOXICILLIN] Allergy Intermediate RASH,SWELLI Verified 12/24/24 16:02 NG ibuprofen [From Motrin] Allergy Intermediate Hypertensio Verified 12/24/24 16:02 n latex Allergy Intermediate Rash Verified 12/24/24 16:02 Review of Systems Review of Systems: Yes all other systems are reviewed and are negative [facility] Past Medical History [facility] Narrative: Social history: She denies tobacco, alcohol and drug use Medical History Essential hypertension Left shoulder pain Type 2 diabetes mellitus Hyperparathyroidism Erosive esophagitis Hypertension Acute diarrhea Pre-op examination Cervical radiculopathy Rash of foot Kiera albicans infection Cervicalgia Environmental allergies Hospital discharge follow-up MARY on CPAP Elevated red blood cell count Screening for hyperlipidemia Chronic pain syndrome Lumbar pain Encounter for annual routine gynecological examination Multiple air fluid levels of small intestine determined by X-ray Abdominal bloating Hypothyroid Sleep apnea Abdominal cramping Edema Anxiety with depression Chronic pain (Unknown) Gastroparesis Left knee pain Hypothyroidism Bilateral shoulder pain Hyperlipidemia LDL goal <70 Degeneration, intervertebral disc, cervical Spondylosis of cervical spine at multiple levels without myelopathy Sleep apnea Renal calculi Incontinence Goiter Disc degeneration, lumbar Spondylosis of lumbar region without myelopathy or radiculopathy Arthropathy of facet joint Insomnia LUDY (generalized anxiety disorder) Moderately severe recurrent major depression Chronic pain syndrome Morbid (severe) obesity due to excess calories Fibromyalgia Small bowel motility disorder Chronic idiopathic constipation Asthma Surgical History History of knee replacement procedure of right knee History of hernia surgery Hx of colonoscopy History of esophagogastroduodenoscopy (EGD) History of cholecystectomy Delivery by section History of hysterectomy Family History Family History Father Past heart attack Anxiety Mother MOF (multiple organ failure) Brother HIV (human immunodeficiency virus infection) Sister Ovarian cancer Lupus Bone cancer Uterine cancer Tumor Daughter Guillain-[place] Sister Lupus History of open heart surgery Family/Other Depression FH: mental illness Maternal Aunt Breast cancer Maternal Aunt Tumor Social History Social History Household Members: None Household Members Other:: Housing: Apartment Are you a primary primary care pediatrician to a significant other at home: No Do you presently have visiting nurse or other home services: Yes Alcohol intake: never Patient Tobacco Use Status: Never used Tobacco Smoked in Last 30 Days: No e-Cigarette/Vaping Use: Never Used Second Hand Smoke Exposure: Yes Use of substances other than those prescribed or required for medical reasons: No Advance Directives: Yes Advance Directives on File: Yes Advance Directives Date on File: 12/08/21 Patient : No service: No Current occupational status: unemployed and disabled Cognitive needs: Yes Hearing needs: No Vision needs: No Physical Exam ED Vital Signs: Vital Signs - 24 hr 12/24/24 15:57 12/24/24 16:40 12/24/24 17:41 Temperature 98 F Pulse Rate 60 56 Respiratory Rate 18 18 20 Blood Pressure 218/83 H 203/87 H Pulse Oximetry 96 97 Oxygen Delivery Method Room Air Room Air 12/24/24 18:00 12/24/24 18:55 12/24/24 19:52 Temperature Pulse Rate 80 63 Respiratory Rate 18 20 20 Blood Pressure 214/88 H 196/75 H Pulse Oximetry 95 95 Oxygen Delivery Method Room Air Room Air 12/24/24 20:00 Temperature Pulse Rate 63 Respiratory Rate 20 Blood Pressure 196/75 H Pulse Oximetry 95 Oxygen Delivery Method Room Air BMI result Body Mass Index 41.6 vital signs revealed an elevated blood pressure of 218/83 otherwise unremarkable Exam: General: Awake,In [id number] distress secondary to her abdominal pain. Weight 113.4 kg, elevated BMI 41.6 kilograms/meter squared Head: Normocephalic, atraumatic EENT: PERRL, Lids normal, sclera normal, conjunctiva normal, nose normal , ears normal, throat without erythema or exudates Neck: Supple, no adenopathy Lung: breath sounds symmetric, no wheezing, rales or rhonchi Chest: symmetric movement, moderate tenderness with palpation over the sternum and costochondral joints bilaterally Heart: regular rate and rhythm, normal S1, S2 no murmurs or rubs Abdomen: soft, mild diffuse abdominal tenderness with moderate right upper quadrant and epigastric tenderness, no rebound, no voluntary or involuntary guarding Back: no vertebral tenderness, no CVAT Extremities: no deformities, moves all extremities symmetrically Neuro: Awake, alert, oriented, normal speech, cranial nerves intact, moves all extremities symmetrically Psych: Pleasant, cooperative Course Course Course Narrative: This is a Rapid Medical Examination (RME) performed by Telma Sterling PA-C in triage. Full HPI, ROS, assessment and treatment plan per primary provider in the Main ED. Hx: 59 yo female w/ hx obesity, migraines, uncontrolled DM, chronic constipation, GERD, vertigo, MARY, diabetic gastroparesis, HLD, asthma, anxiety, mood disorder here for eval of dizziness and increased urination. also reports N/V. did not check her sugars today. PE/vitals: BP 218/83. very anxious appearing, she appeared to syncopize while in triage seated in the wheel chair. came to a few seconds later. did not fall to ground. POC glucose in 200s charge rn aware 1600 - patient brought back to room. Plan: labs, UA Medications Administered Discontinued Medications Generic Name Dose Route Start Last Admin Trade Name Presley PRN Reason Stop Dose Admin Diphenhydramine HCl 50 mg 12/24/24 19:00 12/24/24 19:10 Diphenhydramine Hcl 50 Mg/Ml Vial IVPUSH 12/24/24 19:01 50 mg ONCE STA Administration Sodium Chloride 1,000 mls @ 999 mls/hr 12/24/24 17:18 12/24/24 19:24 Ns IV 12/24/24 18:18 Infused .Q1H1M STA Infusion Metoclopramide HCl 10 mg 12/24/24 19:00 12/24/24 19:10 Metoclopramide Hcl 10 Mg/2 Ml Vial IVPUSH 12/24/24 19:01 10 mg ONCE STA Administration Morphine Sulfate 4 mg 12/24/24 17:18 12/24/24 17:41 Morphine Sulfate 4 Mg/Ml Cartridge IVPUSH 12/24/24 17:19 4 mg ONCE STA Administration Protocol Morphine Sulfate 4 mg 12/24/24 18:51 12/24/24 18:55 Morphine Sulfate 4 Mg/Ml Cartridge IVPUSH 12/24/24 18:52 4 mg ONCE STA Administration Protocol Ondansetron HCl 4 mg 12/24/24 16:50 12/24/24 17:11 Ondansetron Hcl 4 Mg/2 Ml Vial IVPUSH 12/24/24 16:51 4 mg ONCE ONE Administration Medical Decision Making Medical Decision Making MDM Narrative: 59-year-old female with pertinent history of hypertension, mixed hyperlipidemia, mood disorder, insulin-dependent diabetes mellitus, hypothyroidism, gastroesophageal reflux disease, congestive heart failure with preserved EF, MARY on CPAP, asthma not on home oxygen who presents to the emergency department for evaluation nausea, vomiting , chest pain and abdominal pain which started this afternoon prior to the patient coming to the emergency department. patient was had similar presentations in the past and has been seen multiple times in the emergency department and was recently hospitalized on 12/01/2024 with negative workup including negative CT scan of the abdomen pelvis and negative MRI of the brain. She also had a surgical consult and GI consult during that admission without clear etiology determined for her pain. Vital signs revealed an elevated blood pressure otherwise unremarkable. Examination did reveal sternal tenderness as well as mild diffuse abdominal tenderness with moderate epigastric and right upper quadrant tenderness. Differential diagnosis: Includes but is not limited to viral syndrome, gastritis, peptic ulcer disease, biliary disease, gastroparesis, chronic pain, anemia, electrolyte abnormalities Course: 17:35 My interpretation patient's laboratory evaluation is as follows: WBC elevated 17,900 patient was had elevated WBC in the past. CMP revealed an elevated glucose of 197, elevated ALT 39 otherwise unremarkable. Lipase was normal. Beta hydroxybutyrate was normal. Urinalysis was positive for protein and glucose. Microscopic was unremarkable. COVID-19, RSV and influenza were negative. The patient's 12 EKG was unremarkable with a normal QTC interval. Patient was ordered to get normal saline IV x1 L, Zofran 4 mg IV and morphine 4 mg IV. 20:49 The patient continued to have abdominal pain and was treated with 2 more doses of morphine 4 mg IV. She also received Reglan 10 mg and Benadryl 50 mg IV. The patient states she was had very minimal improvement of her abdominal pain. At this time I do not have a clear cause for her pain but I believe that it is a chronic pain in can be worked up as an outpatient. She states she was followed up with Dr. Ballard and he was plans several outpatient test for her. Patient was advised to continue taking your medications as prescribed by your providers. She was given a prescription for Phenergan (promethazine) 25 mg suppositories, 1 per rectum Q 6 hours as needed for nausea and vomiting. She was given printed and verbal instructions and discharged home. Admission/Observation Consideration of admission/observation: Escalation of care including admission/observation considered (Yes) Lab Data MDM Lab Attestation statement: I reviewed the patient's lab results. 12/24/24 16:32 12/24/24 16:32 Labs: Lab Results 12/24/24 12/24/24 12/24/24 Range/Units 16:01 16:29 16:32 WBC 17.9 H (4.8-10.8) X10*3/uL RBC 5.76 H (4.20-5.50) X10*6/uL Hgb 13.7 (12.0-16.0) g/dl Hct 43.3 (37.0-47.0) % MCV 75.2 L (80.0-98.0) fL MCH 23.8 L (27.0-33.0) pg MCHC 31.6 (31.0-35.0) g/dl RDW 18.3 H (11.0-16.0) % Plt Count 301 (160-400) X10*3/uL MPV 10.6 (9.4-12.3) fL Immature Gran % (Auto) 1.7 H (0.0-0.4) % Neut % (Auto) 87.5 H (45-73) % Lymph % (Auto) 7.4 L (20-40) % [place] % (Auto) 2.8 (2-11) % Eos % (Auto) 0.2 (0-4) % Baso % (Auto) 0.4 (0-2) % Lymph # (Auto) 1.3 (1.2-4.9) X10*3/uL [place] # (Auto) 0.5 (0.1-1.2) X10*3/uL Eos # (Auto) 0.0 (0.0-0.4) X10*3/uL Baso # (Auto) 0.1 (0.0-0.2) X10*3/uL Abs Immat Gran (auto) 0.31 H (0.00-0.03) X10*3/uL Absolute Neuts (auto) 15.7 H (2.0-8.3) x10*3/uL Absolute Nucleated RBC 0.000 (0.0-0.012) X10*3/uL Nucleated RBC % (auto) 0.0 (0.0-0.2) /100WBC Sodium 136 (135-145) mmol/L Potassium 4.2 D (3.3-5.1) mmol/L Chloride 102 (96-108) mmol/L Carbon Dioxide 25 (22-29) mmol/L Anion Gap 13 (12-20) BUN 11 (9-16) mg/dL Creatinine 0.69 (0.5-1.4) mg/dL Estim Creat Clear Calc 111.6 Estimated GFR > 60 POC Glucose 204 H (60-115) mg/dL Random Glucose 197 H (60-115) mg/dL Calcium 9.3 (8.4-10.2) mg/dL Magnesium 1.6 (1.6-2.6) mg/dL Total Bilirubin 0.6 (0.0-1.0) mg/dL AST 25 (5-31) U/L ALT 39 H (0-31) U/L Alkaline Phosphatase 105 (39-117) U/L Total Protein 8.5 H (6.5-8.0) g/dL Albumin 4.1 (3.5-5.0) g/dL Lipase 68 (8-78) U/L Beta-Hydroxybutyrate 0.17 (0.02-0.27) mmol/L Urine Color Yellow Urine Appearance Clear Urine pH 8.5 (5.0-9.0) Ur Specific [place] 1.010 (1.005-1.025) Urine Protein 30 (1+) H (Neg-Trace) mg/dL Urine Glucose (UA) 250 H (Negative) mg/dL Urine Ketones Negative (Negative) mg/dL Urine Blood Negative (Negative) Urine Nitrite Negative (Negative) Ur Leukocyte Esterase Negative (Negative) Urine RBC 0-2 (0-2) /HPF Urine WBC 0-5 (0-5) /HPF Ur Squamous Epith Cells 0-2 (0-2) /HPF Urine Bacteria None Seen (None Seen) Hyaline Casts 0-2 (0-2) /LPF Influenza Type A (PCR) NEGATIVE (Negative) Influenza Type B (PCR) NEGATIVE (Negative) RSV RNA Qual (PCR) NEGATIVE (Negative) SARS-CoV-2 RNA (RT-PCR) NEGATIVE (Negative) 12/24/24 Range/Units 16:57 WBC (4.8-10.8) X10*3/uL RBC (4.20-5.50) X10*6/uL Hgb (12.0-16.0) g/dl Hct (37.0-47.0) % MCV (80.0-98.0) fL MCH (27.0-33.0) pg MCHC (31.0-35.0) g/dl RDW (11.0-16.0) % Plt Count (160-400) X10*3/uL MPV (9.4-12.3) fL Immature Gran % (Auto) (0.0-0.4) % Neut % (Auto) (45-73) % Lymph % (Auto) (20-40) % [place] % (Auto) (2-11) % Eos % (Auto) (0-4) % Baso % (Auto) (0-2) % Lymph # (Auto) (1.2-4.9) X10*3/uL [place] # (Auto) (0.1-1.2) X10*3/uL Eos # (Auto) (0.0-0.4) X10*3/uL Baso # (Auto) (0.0-0.2) X10*3/uL Abs Immat Gran (auto) (0.00-0.03) X10*3/uL Absolute Neuts (auto) (2.0-8.3) x10*3/uL Absolute Nucleated RBC (0.0-0.012) X10*3/uL Nucleated RBC % (auto) (0.0-0.2) /100WBC Sodium (135-145) mmol/L Potassium (3.3-5.1) mmol/L Chloride (96-108) mmol/L Carbon Dioxide (22-29) mmol/L Anion Gap (12-20) BUN (9-16) mg/dL Creatinine (0.5-1.4) mg/dL Estim Creat Clear Calc Estimated GFR POC Glucose 201 H (60-115) mg/dL Random Glucose (60-115) mg/dL Calcium (8.4-10.2) mg/dL Magnesium (1.6-2.6) mg/dL Total Bilirubin (0.0-1.0) mg/dL AST (5-31) U/L ALT (0-31) U/L Alkaline Phosphatase (39-117) U/L Total Protein (6.5-8.0) g/dL Albumin (3.5-5.0) g/dL Lipase (8-78) U/L Beta-Hydroxybutyrate (0.02-0.27) mmol/L Urine Color Urine Appearance Urine pH (5.0-9.0) Ur Specific [place] (1.005-1.025) Urine Protein (Neg-Trace) mg/dL Urine Glucose (UA) (Negative) mg/dL Urine Ketones (Negative) mg/dL Urine Blood (Negative) Urine Nitrite (Negative) Ur Leukocyte Esterase (Negative) Urine RBC (0-2) /HPF Urine WBC (0-5) /HPF Ur Squamous Epith Cells (0-2) /HPF Urine Bacteria (None Seen) Hyaline Casts (0-2) /LPF Influenza Type A (PCR) (Negative) Influenza Type B (PCR) (Negative) RSV RNA Qual (PCR) (Negative) SARS-CoV-2 RNA (RT-PCR) (Negative) External Record Review External record reviewed: Inpatient record Chronic Conditions Patient?s care impacted by: Diabetes and Hypertension Critical Care Time Critical Care Time Critical Care Time: Yes Total Critical Care Time: 35 Attestation: Critical Care: The patient was critically ill with a high probability of imminent or life threatening deterioration. I spent greater than 30 minutes of discontinuous time evaluating the patient,delivering critical care at the bedside, discussing and evaluating pertinent data with consultants. Critical care time does not include time spent performing separately billable procedures or teaching. Total time spent performing critical care was 35 minutes. Discharge Plan Discharge Clinical Impression: Abdominal pain Nausea & vomiting Qualifiers: Vomiting type: unspecified Qualified Code(s): R11.2 - Nausea with vomiting, unspecified Patient Disposition: Home, Self-Care Instructions: Abdominal Pain (ED) Additional Instructions: Your white blood cell count was elevated, but she was had similar elevations in the past. Your liver tests were unremarkable. Patient was At this time I do not have a clear cause for your pain but I want you do call Dr. Ballard office tomorrow to discuss getting the MRI of your abdomen and he other testing that was planned. Continue taking your medications as prescribed by your providers. Stop taking the prochlorperazine (Compazine). Take Phenergan (promethazine) 25 mg suppositories, 1 suppository every 6 hours as needed for nausea and vomiting. Follow-up with your doctor in 2 days. Please return to the emergency department if your symptoms get worse or if you develop any symptoms that are concerning to you. Prescriptions: New promethazine [Promethegan] 25 mg suppository 25 mg OH Q6H PRN (Reason: nausea and vomiting) Qty: 20 0RF No Action meclizine 25 mg tablet 25 mg PO DAILY PRN (Reason: dizziness) 90 Days Qty: 90 0RF (DME) ear thermometer Misc See Rx Instructions .Route Qty: 6 0RF Rx Instructions: As directed metoprolol succinate 50 mg tablet extended release 24 hr 50 mg PO DAILY 90 Days Qty: 90 1RF (DME) BP monitor large See Rx Instructions .Route .MEDSUPPLY Qty: 1 0RF Rx Instructions: As directed (DME) blood pressure monitor Kit See Rx Instructions .Route Qty: 1 0RF Rx Instructions: Use as needed albuterol sulfate 2.5 mg /3 mL (0.083 %) solution for nebulization 2.5 mg inhalation Q6H PRN (Reason: shortness of breath or wheezing) 30 Days Qty: 180 11RF atorvastatin 10 mg tablet 10 mg PO BEDTIME Qty: 90 1RF levothyroxine 112 mcg tablet 112 mcg PO DAILY@0600 Qty: 90 1RF ferrous sulfate 325 mg (65 mg iron) tablet 325 mg PO DAILY 90 Days Qty: 90 1RF (DME) blood pressure test kit-large Kit See Rx Instructions .ROUTE .MEDSUPPLY Qty: 1 0RF Rx Instructions: As directed (DME) recliner See Rx Instructions .Route .MEDSUPPLY Qty: 1 0RF Rx Instructions: As directed fluticasone furoate-vilanterol [Breo Ellipta] 200-25 mcg/dose blister with device 1 inh inhalation DAILY 30 Days Qty: 1 0RF diphenoxylate-atropine [Lomotil] 2.5-0.025 mg tablet 1 tab PO BID PRN (Reason: diarrhea) Qty: 14 0RF albuterol sulfate [Ventolin HFA] 90 mcg/actuation HFA aerosol inhaler 1 puff PO Q4H PRN (Reason: for wheezing) 30 Days Qty: 54 1RF hydroxyzine HCl 25 mg tablet 25 mg PO BEDTIME PRN (Reason: itching) 30 Days Qty: 30 0RF acetaminophen 650 mg tablet extended release 650 mg PO Q8H PRN (Reason: arthritis) 30 Days Qty: 90 1RF (DME) FreeStyle Test Strip See Rx Instructions .Route Qty: 100 3RF Rx Instructions: Use 1 test strip once a day alcohol swabs [Alcohol Prep Pads] Pads, Medicated 1 pad topical BID-TID 30 Days Qty: 100 2RF (DME) pen needle, diabetic [BD Rosario 2nd Gen Pen Needle] 32 gauge x 5/32 needle See Rx Instructions .Route Qty: 100 3RF Rx Instructions: use 2x daily As directed sumatriptan succinate 25 mg tablet 25 mg PO Q2-4H PRN (Reason: migraine headache) 30 Days Qty: 9 0RF Rx Instructions: do not exceed 8 doses per 24 hrs sodium,potassium,mag sulfates [Suprep Bowel Prep Kit] 17.5-3.13-1.6 gram recon soln See Rx Instructions PO .COMPLEX Qty: 354 0RF Rx Instructions: DILUTE; drink 1/2 at 6-8 pm and half at 11 PM- 1AM hydrocortisone [Proctosol HC] 2.5 % cream with perineal applicator 1 appl [place] BID-QID PRN (Reason: hemorrhoids) Qty: 30 0RF lorazepam 1 mg tablet 1 mg PO DAILY PRN (Reason: ANXIETY) trazodone 150 mg tablet 75 - 150 mg PO NEEDED zolpidem 5 mg tablet 5 mg PO BEDTIME PRN (Reason: Insomnia/Migraine) docusate sodium [Colace] 100 mg capsule 100 mg PO BID PRN (Reason: Constipation) insulin lispro [Humalog KwikPen Insulin] 100 unit/mL insulin pen 5 unit subcut DAILY@1700 Rx Instructions: with supper cholecalciferol (vitamin D3) 50 mcg (2,000 unit) capsule 50 mcg PO BEDTIME Trulicity 1.5 mg/0.5 mL pen injector 1.5 mg subcut TU oxycodone 5 mg tablet 5 mg PO Q8H PRN (Reason: pain) Qty: 12 0RF Rx Instructions: Partial Fill upon patient request. Proctofoam HC 1-1 % foam 1 appl [place] QID PRN (Reason: hemorrhoids) Qty: 10 0RF loperamide [Anti-Diarrheal (loperamide)] 2 mg capsule 2 mg PO Q6H PRN (Reason: loose stool) Qty: 16 0RF prochlorperazine maleate [Compazine] 10 mg tablet 10 mg PO BID PRN (Reason: nausea and vomiting) Qty: 20 0RF insulin glargine [Lantus Solostar U-100 Insulin] 100 unit/mL (3 mL) insulin pen 15 unit subcut QAM Qty: 15 3RF (DME) nebulizers Kit See Rx Instructions .Route Rx Instructions: As directed (DME) CPAP Machine/Device Device See Rx Instructions .Route Rx Instructions: As directed glucose [Dex4 Glucose] 4 gram tablet,chewable 16 g PO Q15M PRN (Reason: hypoglycemia) Qty: 100 0RF Rx Instructions: until symptoms of low blood sugar are controlled hydroxyzine HCl 50 mg tablet 50 mg PO DAILY PRN (Reason: Itching) Rx Instructions: If 25mg dose ineffective. clonidine HCl 0.1 mg tablet 0.1 mg PO TID hyoscyamine sulfate 0.125 mg tablet,disintegrating 0.125 mg PO BID-QID PRN (Reason: dyspepsia) Qty: 30 1RF clonazepam 1 mg tablet 1 mg PO DAILY PRN (Reason: Anxiety) magnesium oxide 400 mg (241.3 mg magnesium) tablet 400 mg PO BEDTIME 90 Days Qty: 90 0RF Print Language: Azerbaijani
[2024-12-24 16:05] LABS: Glucose, Whole Blood 204 mg/dL (60-115)
[2024-12-24 16:41] LABS: MANUAL DIFF FLAG NO
[2024-12-24 16:43] LABS: Basophils Absolute Auto 0.1 X10*3/uL (0.0-0.2); Basophils Percent Auto 0.4 % (0-2); Eosinophils Percent Auto 0.2 % (0-4); Hematocrit 43.3 % (37.0-47.0); Hemoglobin 13.7 g/dl (12.0-16.0); Imm Gran Abs Auto 0.31 X10*3/uL (0.00-0.03); Imm Gran Pct Auto 1.7 % (0.0-0.4); Lymphocytes Absolute Auto 1.3 X10*3/uL (1.2-4.9); Lymphocytes Percent Auto 7.4 % (20-40); Mean Corpuscular HGB Conc 31.6 g/dl (31.0-35.0); Mean Corpuscular Hemoglobin 23.8 pg (27.0-33.0); Mean Corpuscular Volume 75.2 fL (80.0-98.0); Mean Platelet Volume 10.6 fL (9.4-12.3); Monocytes Absolute Auto 0.5 X10*3/uL (0.1-1.2); Monocytes Percent Auto 2.8 % (2-11); Neutrophils Absolute Auto 15.7 x10*3/uL (2.0-8.3); Neutrophils Percent Auto 87.5 % (45-73); Platelet Count 301 X10*3/uL (160-400); Red Blood Count 5.76 X10*6/uL (4.20-5.50); Red Cell Distribution Width 18.3 % (11.0-16.0); White Blood Count 17.9 X10*3/uL (4.8-10.8)
[2024-12-24 16:46] LABS: Appearance Urine Clear; Color Urine Yellow; Glucose Urine UA 250 mg/dL (Negative); Leukocyte Esterase Urine Negative (Negative); Nitrite Urine Negative (Negative); PH 8.5 (5.0-9.0); UMIC TRIGGER UACC YES; Urine Blood Negative (Negative); Urine Ketones Negative (Negative); Urine Protein 30 (1+) mg/dL (Neg-Trace)
[2024-12-24 16:51] LABS: Bacteria Urine None Seen (None Seen); Hyaline Casts Urine 0-2 /LPF (0-2); RBC Urine 0-2 /HPF (0-2); Squamous Epithelial Cell Urine 0-2 /HPF (0-2); WBC Urine 0-5 /HPF (0-5)
--- NOTE | 2024-12-24 16:59 | ECG_ITS ---
Test Reason : CHEST PAIN Blood Pressure : */* mmHG Vent. Rate : 55 BPM Atrial Rate : 55 BPM P-R Int : 138 ms QRS Dur : 80 ms QT Int : 452 ms P-R-T Axes : 8 9 21 degrees QTcB Int : 432 ms Sinus bradycardia Otherwise normal ECG When compared with ECG of 02-Dec-2024 09:30, QT has shortened Referred By: Indio Smyth Electronically Signed By: MARISA SCHAFER MD
[2024-12-24 17:02] LABS: Glucose, Whole Blood 201 mg/dL (60-115)
[2024-12-24 17:08] LABS: Alanine Aminotransferase 39 U/L (0-31); Albumin Level 4.1 g/dL (3.5-5.0); Alkaline Phosphatase 105 U/L (39-117); Anion Gap 13 (12-20); Aspartate Amino Transferase 25 U/L (5-31); Beta-Hydroxybutyrate 0.17 mmol/L (0.02-0.27); Bilirubin Total 0.6 mg/dL (0.0-1.0); Blood Urea Nitrogen 11 mg/dL (9-16); Calcium 9.3 mg/dL (8.4-10.2); Carbon Dioxide 25 mmol/L (22-29); Chloride 102 mmol/L (96-108); Creatinine Clr Calc Pharmacy 111.6; Estimated Glomerular Filt Rate > 60; Glucose Random 197 mg/dL (60-115); Lipase 68 U/L (8-78); Magnesium 1.6 mg/dL (1.6-2.6); Potassium 4.2 mmol/L (3.3-5.1); Sodium 136 mmol/L (135-145); Total Protein 8.5 g/dL (6.5-8.0)
--- NOTE | 2024-12-24 17:10 | PC.NURSE ---
MD fleming to give Izzy.
[2024-12-24] MEDS: ondansetron HCL 4 MG/2 ML VIAL IVPUSH (17:11)
[2024-12-24 17:33] LABS: Influenza A PCR NEGATIVE (Negative); Influenza B PCR NEGATIVE (Negative); Resp Syncy Virus RNA Qual PCR NEGATIVE (Negative); SARS COV2 PCR INHOUSE NEGATIVE (Negative)
[2024-12-24] MEDS: 0.9 % Sodium Chloride 1,000 ML 999 ML IV (17:40)
[2024-12-24] MEDS: Morphine Sulfate 4 MG/ML CARTRIDGE IVPUSH ×3 (17:41→20:37)
[2024-12-24] MEDS: Metoclopramide HCl 10 MG/2 ML VIAL IVPUSH (19:10)
[2024-12-24] MEDS: diphenhydrAMINE HCL 50 MG/ML VIAL IVPUSH (19:10)
--- NOTE | 2024-12-24 20:27 | PC.NURSE ---
Informed MD, that pt. is sleeping when primary RN goes and checks to see pt, pt. then wakes up and says shes in pain, although previously sleeping.
== END 2024-12-24 21:43 | disposition home or self-care (01) ==
PROVIDERS: Physician Assistant Medical; Emergency Provider Emergency Medicine Emergency Medical Services
DX: R10.11 Right upper quadrant pain (principal); R10.13 Epigastric pain; R11.2 Nausea with vomiting, unspecified; R07.9 Chest pain, unspecified; I10 Essential (primary) hypertension; E11.9 Type 2 diabetes mellitus without complications; Z79.4 Long term (current) use of insulin; Z79.899 Other long term (current) drug therapy; Z03.818 Encounter for observation for suspected exposure to other biological agents ruled out
CPT/HCPCS: 0241U; 80053; 81001; 82010; 82947; 83690; 83735; 85025; 93005; 96361; 96374; 96375; 96376; 99284; 99285; J1200; J2270; J2405; J2765

== ENCOUNTER → 2024-12-24 16:59 | Outpatient (BNV) | payer OTHER, SELFPAY | PROVIDERS: Emergency Provider Emergency Medicine Emergency Medical Services; Visit Provider Internal Medicine Cardiovascular Disease | DX: R07.9 Chest pain, unspecified (principal); R00.1 Bradycardia, unspecified | CPT/HCPCS: 93010 ==

== ENCOUNTER 2024-12-26 09:52 | Outpatient (AMB) | payer OTHER, SELFPAY ==
[2024-12-26 09:58] VITALS: BP 122/64; PULSE 73; TEMP 36.3; O2SAT 96; BMI 44.0
--- NOTE | 2024-12-26 09:58 | MHC.PC.OV ---
Vital Signs 12/26/24 09:58 Height 5 ft 5 in Weight 264 lb 6.4 oz BMI 44.0 BP 122/64 Blood Pressure Location Lt brachial Position Sitting Pulse 73 Pulse Source Pulse Oximeter Temp 97.4 F Temp Source Oral Pulse Oximetry (%) 96 Oxygen Delivery Method Room Air Int[place] [facility] [place] acute migraine, nausea and vomiting Intake Note: Patient is here to follow-up after a visit the emergency department at [facility] in [place], [place] on 12/19/2024 and 12/24/2024 Lpn Medical Assistant Required: No Accompanied by: Self / Same As Patient Allergies Penicillins Allergy (Severe, Verified 01/07/25 16:56) swelling adhesive tape [ADHESIVE TAPE] Allergy (Intermediate, Verified 01/07/25 16:56) RASH amoxicillin [AMOXICILLIN] Allergy (Intermediate, Verified 01/07/25 16:56) RASH,SWELLING ibuprofen [From Motrin] Allergy (Intermediate, Verified 01/07/25 16:56) Hypertension latex Allergy (Intermediate, Verified 01/07/25 16:56) Rash Medication List - Last Reconciled 12/26/24 by DAYNE Evans acetaminophen ER 650 mg PO Q8H PRN 30 days albuterol sulfate 90 mcg/actuation (Ventolin HFA) 1 puff PO Q4H PRN 30 days albuterol sulfate 2.5 mg (3 mL) inhalation Q6H PRN 30 days alcohol swabs (Alcohol Prep Pads) 1 pad topical BID-TID 30 days atorvastatin 10 mg PO BEDTIME blood pressure monitor Use as needed blood pressure test kit-large As directed blood sugar diagnostic (FreeStyle Test strips) Use 1 test strip once a day [BP monitor As directed] cholecalciferol (vitamin D3) 50 mcg PO BEDTIME clonazepam 1 mg PO DAILY PRN clonidine HCl 0.1 mg PO TID CPAP (CPAP Machine/Device) As directed diphenoxylate-atropine 2.5-0.025 mg (Lomotil) 1 tab PO BID PRN docusate sodium (Colace) 100 mg PO BID PRN dulaglutide (Trulicity) 1.5 mg subcut TU ear thermometer As directed ferrous sulfate 325 mg PO DAILY 90 days fluticasone furoate-vilanterol 200-25 mcg/dose (Breo Ellipta) 1 inh inhalation DAILY 30 days glucose (Dex4 Glucose) 16 grams (4 x 4 gram) PO Q15M PRN hydrocortisone 2.5% (Proctosol HC) 1 appl FL BID-QID PRN hydrocortisone-pramoxine 1-1 % (Proctofoam HC) 1 appl FL QID PRN hydroxyzine HCl 25 mg PO BEDTIME PRN 30 days hydroxyzine HCl 50 mg PO DAILY PRN hyoscyamine sulfate 0.125 mg PO BID-QID PRN insulin glargine (Lantus Solostar U-100 Insulin) 15 units (0.15 mL) subcut QAM insulin lispro (Humalog KwikPen (U-100) Insulin) 5 units subcut DAILY@1700 levothyroxine 112 mcg PO DAILY@0600 loperamide (Anti-Diarrheal (loperamide)) 2 mg PO Q6H PRN lorazepam 1 mg PO DAILY PRN magnesium oxide 400 mg PO BEDTIME 90 days meclizine 25 mg PO DAILY PRN 90 days metoprolol succinate ER 50 mg PO DAILY 90 days nebulizers As directed ondansetron 4 mg PO Q8H PRN oxycodone 5 mg PO Q8H PRN pantoprazole 40 mg PO BID pen needle, diabetic (BD Rosario 2nd Gen Pen Needle) use 2x daily As directed prochlorperazine maleate (Compazine) 10 mg PO BID PRN promethazine (Promethegan) 25 mg FL Q6H PRN [recliner As directed] rizatriptan mg PO sodium,potassium,mag sulfates 17.5-3.13-1.6 gram (Suprep Bowel Prep Kit) DILUTE; drink 1/2 at 6-8 pm and half at 11 PM- 1AM sumatriptan succinate 25 mg PO Q2-4H PRN 30 days trazodone 75 - 150 mg PO NEEDED zolpidem 5 mg PO BEDTIME PRN Tobacco use date assessed: 12/26/24 Dental Screening Dental Screen Date: 12/26/24 Did you have a dental visit in the last 12 months?: Yes Did you have a dental problem in the last 6 months where you did not have access to dental care?: No Was dental information given to patient?: Patient has dentist [facility] 12/19 acute migraine, nausea and vomiting HPI Details The patient is a 59-year-old female with past medical history of obesity, pancreas, DM, chronic constipation, GERD, vertigo, MARY, diabetic gastroparesis, HLD, asthma, anxiety, mood disorder The patient is presenting [place] [facility] [place] Patient reports that she has been to the hospital multiple times for same concerns Reports that they have not been able to figured out what is going on so far Reports they has been telling her to follow up outpatient with GI Reports that her last visit they discussed a possible MRI of the abdomen Reports that Dr. Ballard we will make the final decision Patient reports that she has been calling Dr. Ballard's office without any answer at this time Reports that she has not picked up her Phenergan suppository because she does not have a ride to the pharmacy The patient is also concerned about her elevated WBC 17.9 in the hospital Reports that there has been unable to find the source Reports that Dr. Ballard is planning a colonoscopy and possibly hemorrhoids removal Patient reports intermittent epigastric pain that is diffused across her abdomen Reports that this pain is severe Patient reports numbness and tingling and hands and feet She denies chest pain, shortness of breath, heart palpitation FOR[facility]LY [facility], [facility] Medical History Essential hypertension Left shoulder pain Type 2 diabetes mellitus Hyperparathyroidism Erosive esophagitis Hypertension Acute diarrhea Pre-op examination Cervical radiculopathy Rash of foot Kiera albicans infection Cervicalgia Environmental allergies Hospital discharge follow-up MARY on CPAP Elevated red blood cell count Screening for hyperlipidemia Chronic pain syndrome Lumbar pain Encounter for annual routine gynecological examination Multiple air fluid levels of small intestine determined by X-ray Abdominal bloating Hypothyroid Sleep apnea Abdominal cramping Edema Anxiety with depression Chronic pain (Unknown) Gastroparesis Left knee pain Hypothyroidism Bilateral shoulder pain Hyperlipidemia LDL goal <70 Degeneration, intervertebral disc, cervical Spondylosis of cervical spine at multiple levels without myelopathy Sleep apnea Renal calculi Incontinence Goiter Disc degeneration, lumbar Spondylosis of lumbar region without myelopathy or radiculopathy Arthropathy of facet joint Insomnia LUDY (generalized anxiety disorder) Moderately severe recurrent major depression Chronic pain syndrome Morbid (severe) obesity due to excess calories Fibromyalgia Small bowel motility disorder Chronic idiopathic constipation Asthma Surgical History History of knee replacement procedure of right knee History of hernia surgery Hx of colonoscopy History of esophagogastroduodenoscopy (EGD) History of cholecystectomy Delivery by section History of hysterectomy Family History Father Past heart attack Anxiety Mother MOF (multiple organ failure) Brother HIV (human immunodeficiency virus infection) Sister Ovarian cancer Lupus Bone cancer Uterine cancer Tumor Daughter Guillain-Doswell Sister Lupus History of open heart surgery Family/Other Depression FH: mental illness Maternal Aunt Breast cancer Maternal Aunt Tumor Social History Household Members: None Household Members Other:: Housing: Apartment Are you a primary daytime caregiver to a significant other at home: No Do you presently have visiting nurse or other home services: No Alcohol intake: never Patient Tobacco Use Status: Never used Tobacco e-Cigarette/Vaping Use: Never Used Second Hand Smoke Exposure: Yes Advance Directives Date on File: 12/08/21 service: No Current occupational status: unemployed and disabled Cognitive needs: Yes Hearing needs: No Vision needs: No Questionnaire PHQ-9 Over the last 2 weeks, how often have you been bothered by any of the following problems? 1. Little interest or pleasure in doing things: more than half the days 2. Feeling down, depressed, or hopeless: more than half the days 3. Trouble falling or staying asleep, or sleeping too much: more than half the days 4. Feeling tired or having little energy: more than half the days 5. Poor appetite or overeating: nearly every day 6. Feeling bad about yourself - or that you are a failure or have let yourself or your family down: not at all 7. Trouble concentrating on things, such as reading the newspaper or watching television: not at all 8. Moving or speaking so slowly that other people could have noticed. Or the opposite - being so fidgety or restless that you have been moving around a lot more than usual: not at all 9. Thoughts that you would be better off or of hurting yourself in some way: not at all Total score: 11 Depression Screening Interpretation: Positive Depression Screening Done: Yes Source: Developed by Drs. Shaquille Hitchcock, Janae Devlin, Avery Cutler and colleagues, with an educational carlos from [employer]. Thrive Questionnaire Date Thrive assessed: 12/26/24 I am a: Patient What is your living situation today?: I have a steady place to live Within the past 12 months, did the food you bought not last and you didn't have the money to get more?: Never true Within the past 12 months, did you worry whether your food would run out before you got money to buy more?: Never true Do you have trouble paying for medicines?: No Do you have trouble getting transportation to medical appointments?: No Do you have trouble paying your heating and electricity bill?: No Do you have trouble taking care of your child, family member or friend?: No Do you have trouble with day-to-day activities such as bathing, preparing meals, shopping, managing finances, etc.?: No Are you currently unemployed and looking for a job?: No Are you interested in more education?: No Please select the resources that you would like help with: None Currently or been in a relationship where the following occur: No concerns reported THRIVE Score: 0 AUDIT C Alcohol Use Questionnaire (AUDIT-C) 1. How often do you have a drink containing alcohol?: Never Total Score: 0 LUDY-7 AMB Questionnaire LUDY-7 Date LUDY - 7 assessed: 12/26/24 Feeling nervous, anxious, or on edge: 1 = Several days Not being able to stop or control worryin = Not at all Worrying too much about different things: 1 = Several days Trouble relaxin = Nearly every day Being so restless that it is hard to sit still: 0 = Not at all Becoming easily annoyed or irritable: 0 = Not at all Feeling afraid as if something awful might happen: 0 = Not at all Total LUDY-7 score (0-4 normal; 5-9 mild; 10-14 moderate; 15-21 severe): 5 Source: Developed by Drs. Shaquille Hitchcock, Janae Devlin, Avery Cutler and colleagues, with an educational carlos from [employer]. Review of Systems Const Denies chills and Denies fever(s) Eyes Denies loss of vision ENT Denies vertigo, Reports dizziness (Intermittent) and Denies sore throat Card Denies chest pain, Denies leg edema and Denies lightheadedness Resp Denies cough and Denies hemoptysis GI Reports abdominal pain, Denies melena, Reports constipation, Reports dyspepsia, Denies diarrhea, Reports nausea and Denies vomiting Denies urinary frequency, Denies dysuria and Denies urinary urgency Musc Denies arthralgias, Denies joint swelling, Reports numbness and Reports tingling Neuro Denies Abnormal speech present, Denies vertigo, Reports dizziness (Intermittent), Denies loss of vision, Reports numbness and Reports tingling Physical exam (Primary Care) Vital Signs: Last Vital Signs Temp 97.4 F 12/26/24 09:58 Pulse 73 12/26/24 09:58 BP 122/64 12/26/24 09:58 Pulse Ox 96 12/26/24 09:58 Oxygen Delivery Method Room Air 12/26/24 09:58 BMI result Body Mass Index 44.0 Tobacco/Smoking Status: Tobacco use Status Tobacco use date assessed 12/26/24 12/26/24 10:14 Patient Tobacco Use Status Never used Tobacco 12/26/24 10:14 Tobacco use type 12/22/24 08:27 e-Cigarette/Vaping Use Never Used 12/26/24 10:14 PHQ-9: PHQ-9 Score PHQ-9: Total score 11 12/26/24 10:28 Depression Screening Interpretation: Positive Thrive Assessment: Date of Thrive Assessment Date Thrive assessed 12/26/24 12/26/24 10:14 Currently or been in a relationship where the following occur: No concerns reported Const General: healthy appearing, no acute distress, alert and awake Nutritional Appearance: well nourished Orientation/consciousness: oriented to person, oriented to place and oriented to time HENMT Ears: external ears normal General nose exam: Normal external nose present Eyes Conjunctivae: conjunctivae normal Sclerae: sclerae normal Pupils: Equal, round and reactive pupils present Neck Neck: Yes no lymphadenopathy and Yes no JVD Thyroid: Thyroid normal Carotids: no bruits Resp Effort & Inspection: normal respiratory effort and not tachypneic Auscultation: no crackles, no rales, no rhonchi and no wheezes Cardio Rate: regular rate Rhythm: regular rhythm Heart sounds: no murmurs and normal S1 and S2 GI Palpation (GI): Soft to palpation, Tenderness to palpation present (GI) in the epigastrum (Diffuse), no hepatomegaly and no splenomegaly Auscultation: normal bowel sounds Skin General skin exam: no rashes or lesions noted and dry skin Neuro General: oriented to person, oriented to place and oriented to time Cranial nerves: Yes Equal, round and reactive pupils present Speech: No Abnormal speech present Gait exam (Neuro): Normal gait present Motor exam (neuro): no tremor noted Extrem Right upper extremity: full ROM Left upper extremity: full ROM Right lower extremity: full ROM; no edema Left lower extremity: full ROM; no edema Coding Level of Care Code Est Pt Level 4 (25770) Diagnoses Neuralgia M79.2 Migraine without aura and without status migrainosus, not intractable G43.009 Migraine type: without aura Status migrainosus presence: without status migrainosus Intractability: not intractable Gastroesophageal reflux disease, unspecified whether esophagitis present K21.9 Esophagitis presence: esophagitis presence not specified Chronic idiopathic constipation K59.04 Elevated WBC count D72.829 Leukocytosis type: unspecified Time Spent (min) 41 Assessment & Plan Assessment & Plan (1) Neuralgia: Code(s): M79.2 - Neuralgia and neuritis, unspecified Category: Medical Plan: Most likely diabetic neuropathy. Gabapentin 300 mg t.i.d. ordered (2) Migraine: Code(s): G43.909 - Migraine, unspecified, not intractable, without status migrainosus Category: Medical Qualifiers: Migraine type: without aura Status migrainosus presence: without status migrainosus Intractability: not intractable Qualified Code(s): G43.009 - Migraine without aura, not intractable, without status migrainosus Plan: Chronic, MRI of brain was unremarkable. Patient of periods of not being able to tolerate fluids or food due to nausea and vomiting. These symptoms seems to run together. The patient migraine and dizziness might be stemming from dehydration. Encourage patient to avoid triggers and to increase hydration. Patient reports that sometimes she is not able to drink due to her nausea. On the patient last hospital visit, she was ordered Phenergan suppository, she has not picked this medication as yet due to transportation issues. Continue magnesium oxide 400 mg at bedtime (3) GERD (gastroesophageal reflux disease): Code(s): K21.9 - Gastro-esophageal reflux disease without esophagitis Category: Medical Qualifiers: Esophagitis presence: esophagitis presence not specified Qualified Code(s): K21.9 - Gastro-esophageal reflux disease without esophagitis Plan: Reinforced dietary restrictions Continue pantoprazole 40 mg b.i.d. Follow up with GI as scheduled (4) Chronic idiopathic constipation: Code(s): K59.04 - Chronic idiopathic constipation Category: Medical Plan: Patient has a history of diabetic gastroparesis. Continue Colace 100 mg b.i.d. p.r.n. increase fluids and dietary fiber as tolerated. She has been worked up extensively in the hospital, CT of abdomen and pelvis with no acute findings on 11/30/2024. KUB on 12/19/2024 with moderate to large amount of stool throughout the colon Follow up with GI as scheduled (5) Elevated WBC count: Code(s): D72.829 - Elevated white blood cell count, unspecified Category: Medical Qualifiers: Leukocytosis type: unspecified Qualified Code(s): D72.829 - Elevated white blood cell count, unspecified Plan: Ongoing with no known source. Has been worked up in the hospital without any significant findings. Will continue to monitor Medications: New gabapentin 300 mg PO TID 90 caps 0RF 30 days M79.2 - Neuralgia and neuritis, unspecified
== END 2024-12-26 11:21 | disposition home or self-care (01) ==
LOC: HO.HMCH 09:53
PROVIDERS: PCP Internal Medicine
DX: M79.2 Neuralgia and neuritis, unspecified (principal); G43.009 Migraine without aura, not intractable, without status migrainosus; K21.9 Gastro-esophageal reflux disease without esophagitis; K59.04 Chronic idiopathic constipation; D72.829 Elevated white blood cell count, unspecified

== ENCOUNTER → 2024-12-26 09:52 | Outpatient (BNVA) | payer OTHER, SELFPAY | PROVIDERS: PCP Internal Medicine | DX: M79.2 Neuralgia and neuritis, unspecified (principal); G43.009 Migraine without aura, not intractable, without status migrainosus; K21.9 Gastro-esophageal reflux disease without esophagitis; K59.04 Chronic idiopathic constipation; D72.829 Elevated white blood cell count, unspecified | CPT/HCPCS: 99212 ==

== ENCOUNTER 2025-01-02 06:36 | Day surgery (SDC) | payer OTHER, SELFPAY ==
--- NOTE | 2025-01-01 09:13 | HO.ANESPROP2 ---
Documented by User: Gina Prince NP 01/01/25 09:14 HPI - Anesthesia Eval Consult details Narrative: 59yo F for Colonoscopy BMI 44 Anesthesia Pre-Procedure Meds Is the patient on any of the following meds?: GLP1/DPP4 PMFSH Active Problems Active Problems: All Active Problems Neuralgia (Acute) Migraines (Acute) Tinea pedis (Acute) Encounter for well woman exam with routine gynecological exam (Acute) Constipation by delayed colonic transit (Acute) Uncontrolled type 2 diabetes mellitus with hyperglycemia, with long-term current use of insulin (Acute) Internal hemorrhoids (Acute) Subacromial bursitis of left shoulder joint (Acute) Physical exam (Acute) Polyarthropathy (Acute) Right shoulder pain (Acute) Essential hypertension (Acute) Left shoulder pain (Acute) Hypokalemia (Acute) Abdominal pain (Acute) Abdominal wall bulge (Acute) Hypercalcemia (Acute) Urinary incontinence (Acute) Migraine (Acute) Seasonal allergies (Acute) Vertigo (Acute) GERD (gastroesophageal reflux disease) (Acute) Right sided abdominal pain (Acute) Physical deconditioning (Acute) Spondylosis of lumbar region without myelopathy or radiculopathy (Acute) Pelvic pain in female (Acute) Vulvar irritation (Acute) Microcytosis (Chronic) Pulmonary nodules (Acute) Bronchitis (Acute) Flank pain (Acute) Thoracic back pain (Acute) Nocturnal hypoxemia (Acute) Orthopnea (Acute) Leg edema (Acute) Arthritis of shoulder region, left (Acute) Diabetic gastroparesis (Acute) MARY (obstructive sleep apnea) (Acute) Cervical radiculopathy at C8 (Acute) Pulmonary edema (Acute) Chronic idiopathic constipation (Acute) Left knee pain (Acute) Hypothyroidism (Acute) Bilateral shoulder pain (Acute) Hyperlipidemia LDL goal <70 (Acute) Degeneration, intervertebral disc, cervical (Acute) Spondylosis of cervical spine at multiple levels without myelopathy (Acute) Spondylosis of cervical spine at multiple levels without myelopathy (Acute) Renal calculi (Acute) Incontinence (Acute) Goiter (Acute) Disc degeneration, lumbar (Acute) Spondylosis of lumbar region without myelopathy or radiculopathy (Acute) Arthropathy of facet joint (Acute) Insomnia (Acute) LUDY (generalized anxiety disorder) (Acute) Chronic pain syndrome (Acute) Morbid (severe) obesity due to excess calories (Acute) Fibromyalgia (Acute) Asthma (Acute) Past Medical History Medical History Essential hypertension Left shoulder pain Type 2 diabetes mellitus Hyperparathyroidism Erosive esophagitis Hypertension Acute diarrhea Pre-op examination Cervical radiculopathy Rash of foot Kiera albicans infection Cervicalgia Environmental allergies Hospital discharge follow-up MARY on CPAP Elevated red blood cell count Screening for hyperlipidemia Chronic pain syndrome Lumbar pain Encounter for annual routine gynecological examination Multiple air fluid levels of small intestine determined by X-ray Abdominal bloating Hypothyroid Sleep apnea Abdominal cramping Edema Anxiety with depression Chronic pain (Unknown) Gastroparesis Left knee pain Hypothyroidism Bilateral shoulder pain Hyperlipidemia LDL goal <70 Degeneration, intervertebral disc, cervical Spondylosis of cervical spine at multiple levels without myelopathy Sleep apnea Renal calculi Incontinence Goiter Disc degeneration, lumbar Spondylosis of lumbar region without myelopathy or radiculopathy Arthropathy of facet joint Insomnia LUDY (generalized anxiety disorder) Moderately severe recurrent major depression Chronic pain syndrome Morbid (severe) obesity due to excess calories Fibromyalgia Small bowel motility disorder Chronic idiopathic constipation Asthma Family History Family History Father Past heart attack Anxiety Mother MOF (multiple organ failure) Brother HIV (human immunodeficiency virus infection) Sister Ovarian cancer Lupus Bone cancer Uterine cancer Tumor Daughter Guillain-Monson Sister Lupus History of open heart surgery Family/Other Depression FH: mental illness Maternal Aunt Breast cancer Maternal Aunt Tumor Family history of problems with anesthesia: No Surgical History Surgical History History of knee replacement procedure of right knee History of hernia surgery Hx of colonoscopy History of esophagogastroduodenoscopy (EGD) History of cholecystectomy Delivery by section History of hysterectomy History of Problems with Anesthesia: No Social History Social History Household Members: None Household Members Other:: Housing: Apartment Are you a primary team primary care physician to a significant other at home: No Do you presently have visiting nurse or other home services: No Alcohol intake: never Patient Tobacco Use Status: Never used Tobacco e-Cigarette/Vaping Use: Never Used Second Hand Smoke Exposure: Yes Have you been hit, kicked, punched, or otherwise hurt by someone within the past year? If so, by whom?: No Are you DNR?: No Advance Directives: No Advance Directives Information Provided: Yes Advance Directives Date on File: 12/08/21 service: No Current occupational status: unemployed and disabled Cognitive needs: Yes Hearing needs: No Vision needs: No Meds Allergies Allergy/AdvReac Type Severity Reaction Status Date / Time Penicillins Allergy Severe swelling Verified 01/02/25 07:10 adhesive tape [ADHESIVE TAPE] Allergy Intermediate RASH Verified 01/02/25 07:10 amoxicillin [AMOXICILLIN] Allergy Intermediate RASH,SWELLI Verified 01/02/25 07:10 NG ibuprofen [From Motrin] Allergy Intermediate Hypertensio Verified 01/02/25 07:10 n latex Allergy Intermediate Rash Verified 01/02/25 07:10 Home Medications ?Medication ?Instructions ?Recorded ?Confirmed ?Last Taken ?Type CPAP (CPAP Machine/Device) 03/01/24 01/02/25 Unknown History nebulizers 03/01/24 01/02/25 Unknown History hydroxyzine HCl 50 mg tablet 50 mg PO DAILY PRN Itching 07/21/24 01/02/25 Unknown History clonazepam 1 mg tablet 1 mg PO DAILY PRN Anxiety 10/26/24 01/02/25 Unknown History cholecalciferol (vitamin D3) 50 50 mcg PO BEDTIME 12/01/24 01/02/25 11/27/24 History mcg (2,000 unit) capsule docusate sodium 100 mg capsule 100 mg PO BID PRN Constipation 12/01/24 01/02/25 11/28/24 History (Colace) dulaglutide 1.5 mg/0.5 mL 1.5 mg subcut TU 12/01/24 01/02/25 12/19/24 History subcutaneous pen injector (Trulicity) insulin lispro 100 unit/mL 5 unit subcut DAILY@1700 12/01/24 01/02/25 11/27/24 History subcutaneous pen (Humalog KwikPen (U-100) Insulin) trazodone 150 mg tablet 75 - 150 mg PO NEEDED 12/01/24 01/02/25 Unknown History Insomnia/Headache ondansetron 4 mg disintegrating 4 mg PO Q8H PRN Nausea 12/26/24 01/02/25 Unknown History tablet pantoprazole 40 mg tablet,delayed 40 mg PO BID 12/26/24 01/02/25 Unknown History release rizatriptan 10 mg tablet mg PO 12/26/24 12/26/24 Unknown History Exam Narrative Narrative: EKG 12/2024 Vent. Rate : 55 BPM Atrial Rate : 55 BPM P-R Int : 138 ms QRS Dur : 80 ms QT Int : 452 ms P-R-T Axes : 8 9 21 degrees QTcB Int : 432 ms Sinus bradycardia Otherwise normal ECG When compared with ECG of 02-Dec-2024 09:30, QT has shortened Assessment and Plan Assessment Anesthesia Assessment: Chart Reviewed Final Anesthetic Review Family History of Problems with Anesthesia: No History of Problems with Anesthesia: No Documented by User: Maria Fernanda Rose MD 01/02/25 07:48 PMFSH Past Medical History Medical History Essential hypertension Left shoulder pain Type 2 diabetes mellitus Hyperparathyroidism Erosive esophagitis Hypertension Acute diarrhea Pre-op examination Cervical radiculopathy Rash of foot Kiera albicans infection Cervicalgia Environmental allergies Hospital discharge follow-up MARY on CPAP Elevated red blood cell count Screening for hyperlipidemia Chronic pain syndrome Lumbar pain Encounter for annual routine gynecological examination Multiple air fluid levels of small intestine determined by X-ray Abdominal bloating Hypothyroid Sleep apnea Abdominal cramping Edema Anxiety with depression Chronic pain (Unknown) Gastroparesis Left knee pain Hypothyroidism Bilateral shoulder pain Hyperlipidemia LDL goal <70 Degeneration, intervertebral disc, cervical Spondylosis of cervical spine at multiple levels without myelopathy Sleep apnea Renal calculi Incontinence Goiter Disc degeneration, lumbar Spondylosis of lumbar region without myelopathy or radiculopathy Arthropathy of facet joint Insomnia LUDY (generalized anxiety disorder) Moderately severe recurrent major depression Chronic pain syndrome Morbid (severe) obesity due to excess calories Fibromyalgia Small bowel motility disorder Chronic idiopathic constipation Asthma Family History Family History Father Past heart attack Anxiety Mother MOF (multiple organ failure) Brother HIV (human immunodeficiency virus infection) Sister Ovarian cancer Lupus Bone cancer Uterine cancer Tumor Daughter Guillain-Monson Sister Lupus History of open heart surgery Family/Other Depression FH: mental illness Maternal Aunt Breast cancer Maternal Aunt Tumor Surgical History Surgical History History of knee replacement procedure of right knee History of hernia surgery Hx of colonoscopy History of esophagogastroduodenoscopy (EGD) History of cholecystectomy Delivery by section History of hysterectomy Social History Social History Household Members: None Household Members Other:: Housing: Apartment Are you a primary team primary care physician to a significant other at home: No Do you presently have visiting nurse or other home services: No Alcohol intake: never Patient Tobacco Use Status: Never used Tobacco e-Cigarette/Vaping Use: Never Used Second Hand Smoke Exposure: Yes Have you been hit, kicked, punched, or otherwise hurt by someone within the past year? If so, by whom?: No Are you DNR?: No Advance Directives: No Advance Directives Information Provided: Yes Advance Directives Date on File: 12/08/21 service: No Current occupational status: unemployed and disabled Cognitive needs: Yes Hearing needs: No Vision needs: No Meds Allergies Allergy/AdvReac Type Severity Reaction Status Date / Time Penicillins Allergy Severe swelling Verified 01/02/25 07:10 adhesive tape [ADHESIVE TAPE] Allergy Intermediate RASH Verified 01/02/25 07:10 amoxicillin [AMOXICILLIN] Allergy Intermediate RASH,SWELLI Verified 01/02/25 07:10 NG ibuprofen [From Motrin] Allergy Intermediate Hypertensio Verified 01/02/25 07:10 n latex Allergy Intermediate Rash Verified 01/02/25 07:10 Home Medications ?Medication ?Instructions ?Recorded ?Confirmed ?Last Taken ?Type CPAP (CPAP Machine/Device) 03/01/24 01/02/25 Unknown History nebulizers 03/01/24 01/02/25 Unknown History hydroxyzine HCl 50 mg tablet 50 mg PO DAILY PRN Itching 07/21/24 01/02/25 Unknown History clonazepam 1 mg tablet 1 mg PO DAILY PRN Anxiety 10/26/24 01/02/25 Unknown History cholecalciferol (vitamin D3) 50 50 mcg PO BEDTIME 12/01/24 01/02/25 11/27/24 History mcg (2,000 unit) capsule docusate sodium 100 mg capsule 100 mg PO BID PRN Constipation 12/01/24 01/02/25 11/28/24 History (Colace) dulaglutide 1.5 mg/0.5 mL 1.5 mg subcut TU 12/01/24 01/02/25 12/19/24 History subcutaneous pen injector (Trulicity) insulin lispro 100 unit/mL 5 unit subcut DAILY@1700 12/01/24 01/02/25 11/27/24 History subcutaneous pen (Humalog KwikPen (U-100) Insulin) trazodone 150 mg tablet 75 - 150 mg PO NEEDED 12/01/24 01/02/25 Unknown History Insomnia/Headache ondansetron 4 mg disintegrating 4 mg PO Q8H PRN Nausea 12/26/24 01/02/25 Unknown History tablet pantoprazole 40 mg tablet,delayed 40 mg PO BID 12/26/24 01/02/25 Unknown History release rizatriptan 10 mg tablet mg PO 12/26/24 12/26/24 Unknown History Exam Narrative Narrative: EKG 12/2024 Vent. Rate : 55 BPM Atrial Rate : 55 BPM P-R Int : 138 ms QRS Dur : 80 ms QT Int : 452 ms P-R-T Axes : 8 9 21 degrees QTcB Int : 432 ms Sinus bradycardia Otherwise normal ECG When compared with ECG of 02-Dec-2024 09:30, QT has shortened Airway Mallampati Class: III (full neck) TM Dist: >3cm Neck ROM: Full Loose/Missing/Broken Teeth: No Heart: RRR Lungs: CTA Assessment and Plan Assessment Anesthesia Assessment: Anesthesia Plan Discussed Final Anesthetic Review NPO: Yes ASA Class: III Final Preanesthetic Review: Meds/Allgs Chart Reviewed, Consent Obtained/Reviewed and Anes Risks/Benef Reviewed Patient Risk: Intermediate Procedure Risk: Intermediate Anesthetic Plan Anesthetic Plan: MAC: Disposition: Standard PACU
--- NOTE | 2025-01-02 06:45 | MHC.SHP ---
Pre-Procedural Eval Section A - 24 Hr Update-Section A only Date of Service: 01/02/25 Section B - Complete if H&P > 30 days Chief Complaint: Unspecified abdominal pain Relevant Family History (Specify if Yes): No Relevant Social History: None Present Medications: see Short Stay Collaborative assessment Medical History: Significant History (Essential hypertension Left shoulder pain Type 2 diabetes mellitus Hyperparathyroidism Erosive esophagitis Hypertension Acute diarrhea Pre-op examination Cervical radiculopathy Rash of foot Kiera albicans infection Cervicalgia Environmental allergies Hospital discharge follow-up MARY on CPAP Elevat) History of Previous Operations: Relevant previous surgery/procedure and date(s) (History of knee replacement procedure of right knee History of hernia surgery Hx of colonoscopy History of esophagogastroduodenoscopy (EGD) History of cholecystectomy Delivery by section History of hysterectomy) Allergies: Allergies Allergy/AdvReac Type Severity Reaction Status Date / Time Penicillins Allergy Severe swelling Verified 12/26/24 10:21 adhesive tape [ADHESIVE TAPE] Allergy Intermediate RASH Verified 12/26/24 10:21 amoxicillin [AMOXICILLIN] Allergy Intermediate RASH,SWELLI Verified 12/26/24 10:21 NG ibuprofen [From Motrin] Allergy Intermediate Hypertensio Verified 12/26/24 10:21 n latex Allergy Intermediate Rash Verified 12/26/24 10:21 Review of Systems Sugical H&P ROS: Negative: Constitution, Cardiovascular, Respiratory, Neurological, Psychiatric, Hem-Onc, Allergic/Immunologic, Gastrointestinal, Genitourinary, Musculoskeletal, Integumentary, Endocrine and Eyes/Ears/Nose/Throat Exam Surgical H&P Exam: Normal: HEENT, Normal: Heart, Normal: Lungs, Normal: Extremities, Normal: Abdomen, Normal: Skin and Normal: Neurological Plan Diagnosis/Plan: Unchanged I have reviewed the history and physical and performed a pertinent physical examination on my patient. No changes have occurred unless specified. EGD and colonsocopy for nausea, vomiting, and abdominal pain with rectal bleeding Time Spent With Patient Time: Total time managing care of this patient today ____ minutes.
[2025-01-02 07:08] VITALS: BMI 39.7
[2025-01-02] MEDS: Lactated Ringers 1,000 ML 100 ML IVCONT (07:19)
[2025-01-02 07:20] VITALS: BP 116/73; PULSE 95; RESP 18; TEMP 36.7; O2SAT 95
[2025-01-02 07:57] LABS: Glucose, Whole Blood 142 mg/dL (60-115)
--- NOTE | 2025-01-02 09:04 | HO.OPN-COLON ---
Colonoscopy Operative Note Operative Note Date of Service: 01/02/25 Narrative: Operative Information Procedure Description: EGD, Colonoscopy Indication: abdominal pain, rectal bleeding, nausea, vomiting Anesthesia: MAC FLEXIBLE TRANSORAL UPPER GASTROINTESTINAL ENDOSCOPY AND COLONOSCOPY PROCEDURE NOTE UPPER ENDOSCOPY Consent: Indications for the procedure and potential complications of bleeding, perforation, reaction to medications and missed diagnosis were discussed with the patient and informed consent was obtained. Instrument: Olympus GIF H 190 J mid size upper endoscope Monitoring: Vital signs and clinical assessment, continuous EKG monitoring, Pulse oximetry, Carbon Dioxide monitoring and blood pressure monitoring were done throughout the procedure. Procedure: The patient was placed in the left lateral decubitis position and pre-procedure medications were administered and a bite block was placed. The endoscope was inserted into the mouth and advanced under direct vision to the third part of duodenum. A careful inspection was made as the upper endoscope was withdrawn including a retroflexed examination of the proximal stomach; Findings and interventions are described below. Findings: Larynx:normal Esophagus: GE junction at 40 cm, diaphragm hiatus at 40 cm, mild-moderate esophagitis at GEJ noted - bx taken Stomach: streaky erythema. Grade 2 flap valve on retroflexed examination of the cardia. there appeared to be reduced gastric motility Duodenum: Normal bulb and descending duodenum, bx taken Intervention: Biopsies as noted above COLONOSCOPY Instrument: Olympus variable stiffness pediatric scope 190L then switched to adult scope Colonoscopy Monitoring: Vital signs and clinical assessment, continuous EKG monitoring, Pulse oximetry, Carbon Dioxide monitoring and blood pressure monitoring were done throughout the procedure. Colon withdrawal time was 10 minutes. Procedure: The patient was placed in the left lateral decubitis position and pre-procedure medications were administered. After a digital rectal examination of the ano-rectum, the video colonoscope was inserted into the rectum and advanced through the colon to the cecum/TI. The colonoscope was slowly withdrawn in a retrograde panoramic fashion and the colon mucosa was carefully examined including a retroflexed view of the rectum. Findings and interventions are described below. Procedure Difficulty:difficult due to looping Findings: Terminal Ileum-not intubated Reduced colonic motility bx taken from right, left and rectum in different jars Cecum:normal Ascending Colon: normal Transverse Colon -normal Descending Colon:normal Sigmoid Colon: normal Rectum: Retroflexion with moderate sized, irriated internal hemorrhoids, grade I Anorectum - normal Colon preparation: [place] Bowel Preparation Scale Right colon; 1-2 Transverse colon: 2- Left colon; 1-2 (0 = Unprepared colon segment with mucosa not seen due to solid stool that cannot be cleared. 1 = Portion of mucosa of the colon segment seen, but other areas of the colon segment not well seen due to staining, residual stool and/or opaque liquid. 2 = Minor amount of residual staining, small fragments of stool and/or opaque liquid, but mucosa of colon segment seen well. 3 = Entire mucosa of colon segment seen well with no residual staining, small fragments of stool or opaque liquid) Impression and Post Procedure Diagnosis: Endoscopy Findings: gastritis mild esophagitis dysmotility Colonoscopy Findings: internal hemorrhoids dysmotility Plan: Await Pathology results Repeat Colonoscopy in 1-2 years or earlier if clinically indicated High fiber diet leaflet avoid straining at stool, epsom salts and sitz bath, anusol supps or cream consider rept capsule or CTe Above findings were reviewed with the patient and relevant handouts were provided if indicated.
[2025-01-02 09:07] VITALS: BP 154/78; PULSE 92; RESP 18; TEMP 36.2; O2SAT 96
[2025-01-02 09:22] VITALS: BP 145/62; PULSE 77; RESP 20; O2SAT 96
[2025-01-02] MEDS: ondansetron HCL 4 MG/2 ML VIAL IVPUSH (09:24)
[2025-01-02 09:37] VITALS: BP 156/72; PULSE 69; RESP 20; O2SAT 95
[2025-01-02] MEDS: Haloperidol Lactate 5 MG/ML VIAL 1 MG IVPUSH (09:46)
[2025-01-02] MEDS: Scopolamine 1.5 MG PATCH.TD.3 EAR-BEHIND (09:46)
[2025-01-02 09:52] VITALS: BP 120/56; PULSE 83; RESP 20; O2SAT 95
[2025-01-02 10:06] VITALS: BP 121/59; PULSE 89; RESP 20; TEMP 36.3; O2SAT 94
== END 2025-01-02 10:59 | disposition home or self-care (01) ==
PROVIDERS: PCP Internal Medicine; Visit Provider Internal Medicine Gastroenterology
PROC: (CPT 45380; principal; 2025-01-02 08:20)
DX: Z12.11 Encounter for screening for malignant neoplasm of colon (principal); K52.9 Noninfective gastroenteritis and colitis, unspecified; K59.9 Functional intestinal disorder, unspecified; K56.2 Volvulus; K64.0 First degree hemorrhoids; K29.60 Other gastritis without bleeding; K22.4 Dyskinesia of esophagus; K21.00 Gastro-esophageal reflux disease with esophagitis, without bleeding; K31.84 Gastroparesis; E11.9 Type 2 diabetes mellitus without complications; I10 Essential (primary) hypertension; E78.5 Hyperlipidemia, unspecified; E03.9 Hypothyroidism, unspecified; J45.909 Unspecified asthma, uncomplicated; G89.4 Chronic pain syndrome; G47.33 Obstructive sleep apnea (adult) (pediatric); Z99.89 Dependence on other enabling machines and devices; F12.90 Cannabis use, unspecified, uncomplicated; Z90.49 Acquired absence of other specified parts of digestive tract; Z90.710 Acquired absence of both cervix and uterus; Z87.891 Personal history of nicotine dependence; Z79.85 Long-term (current) use of injectable non-insulin antidiabetic drugs; Z79.4 Long term (current) use of insulin; Z79.899 Other long term (current) drug therapy
CPT/HCPCS: 45380; 43239; 82947; 88305; 88313; 88342; J1630; J2405; J2704

== ENCOUNTER → 2025-01-02 06:36 | Outpatient (BNV) | payer OTHER, SELFPAY | PROVIDERS: PCP Internal Medicine; Visit Provider Internal Medicine Gastroenterology | DX: K20.90 Esophagitis, unspecified without bleeding (principal); K29.70 Gastritis, unspecified, without bleeding; K31.84 Gastroparesis; K62.5 Hemorrhage of anus and rectum; K64.0 First degree hemorrhoids; K59.9 Functional intestinal disorder, unspecified | CPT/HCPCS: 43239; 45380 ==

== ENCOUNTER 2025-01-18 11:03 | Observation (INO) | payer OTHER, SELFPAY ==
[2025-01-18] VITALS (12 sets, daily range): BP systolic 102–194; BP diastolic 53–93; PULSE 66–89; RESP 16–20; TEMP 36.1–37.1; O2SAT 93–97; BMI 40.0
--- NOTE | ~2025-01-18 | MR_ITS ---
CLINICAL HISTORY: r o biliry path, pain s p cholecystectomy --- Additional Notes or Special Instructi ons: RUQ pain with nausea and vomiting MRCP without gadolinium Comparison: None Findings: No biliary stones or dilatation. Common bile duct 4.1 mm diameter. The gallbladder is normal. The solid organs are within normal limits. IMPRESSION: No biliary pathology. This document has been electronically signed by: Anatoly Greenfield MD on 01/20/2025 09:34:09
--- NOTE | 2025-01-18 11:09 | ED.GENADULT ---
HPI - General Adult General Chief complaint: Nausea/Vomiting/Diarrhea Stated complaint: vomiting Time Seen by Provider: 01/18/25 13:13 Source: patient and family (Daughter) Mode of arrival: ambulatory Limitations: no limitations History of Present Illness ED Provider: DR. Steward HPI narrative: 59-year-old female history of HTN, HLD, depression, IDDM, hypothyroidism, GERD, CHF with preserved EF, MARY on CPAP presented with abdominal pain, nausea vomiting for the past 4 weeks, patient stated that can not keep any food down for the past month feeling weak and dizzy. Complaining of epigastric abdominal pain, patient was seen and evaluated by GI had gone under GI endoscopy on 01/[address] Ballard according to the preliminary report patient had gastritis, mild esophagitis, and internal hemorrhoids. Patient also had CT abdomen and pelvis on 11/30 knife which was unremarkable for intra-abdominal pathology. Had previous similar presentation was admitted for similar symptoms on 12/01/2024. Related Data Home Medications ?Medication ?Instructions ?Recorded ?Confirmed CPAP (CPAP Machine/Device) 03/01/24 01/02/25 nebulizers 03/01/24 01/02/25 hydroxyzine HCl 50 mg tablet 50 mg PO DAILY PRN Itching 07/21/24 01/02/25 clonazepam 1 mg tablet 1 mg PO DAILY PRN Anxiety 10/26/24 01/02/25 cholecalciferol (vitamin D3) 50 50 mcg PO BEDTIME 12/01/24 01/02/25 mcg (2,000 unit) capsule docusate sodium 100 mg capsule 100 mg PO BID PRN Constipation 12/01/24 01/02/25 (Colace) dulaglutide 1.5 mg/0.5 mL 1.5 mg subcut TU 12/01/24 01/02/25 subcutaneous pen injector (Trulicity) insulin lispro 100 unit/mL 5 unit subcut DAILY@1700 12/01/24 01/02/25 subcutaneous pen (Humalog KwikPen (U-100) Insulin) trazodone 150 mg tablet 75 - 150 mg PO NEEDED 12/01/24 01/02/25 Insomnia/Headache pantoprazole 40 mg tablet,delayed 40 mg PO BID 12/26/24 01/02/25 release Previous Rx's ?Medication ?Instructions ?Recorded meclizine 25 mg tablet 25 mg PO DAILY PRN dizziness 90 06/12/24 days #90 tabs glucose 4 gram chewable tablet 16 g (4 x 4 gram) PO Q15M PRN 05/12/24 (Dex4 Glucose) hypoglycemia #100 tabs ear thermometer #6 ea 06/30/24 BP monitor #1 ea 07/12/24 blood pressure monitor #1 ea 07/13/24 albuterol sulfate 2.5 mg/3 mL 2.5 mg (3 mL) inhalation Q6H PRN 07/20/24 (0.083 %) solution for nebulization shortness of breath or wheezing 30 days #180 mL atorvastatin 10 mg tablet 10 mg PO BEDTIME #90 tabs 08/06/24 levothyroxine 112 mcg tablet 112 mcg PO DAILY@0600 #90 tabs 08/06/24 blood pressure test kit-large #1 ea 08/11/24 ferrous sulfate 325 mg (65 mg 325 mg PO DAILY 90 days #90 tabs 08/11/24 iron) tablet insulin glargine 100 unit/mL (3 15 unit (0.15 mL) subcut QAM #15 mL 08/11/24 mL) subcutaneous pen (Lantus Solostar U-100 Insulin) recliner #1 ea 08/11/24 fluticasone furoate 200 1 inh inhalation DAILY 30 days #1 08/14/24 mcg-vilanterol 25 mcg/dose ea inhalation powder (Breo Ellipta) diphenoxylate-atropine 2.5 1 tab PO BID PRN diarrhea #14 tabs 08/30/24 mg-0.025 mg tablet (Lomotil) albuterol sulfate 90 mcg/actuation 1 puff PO Q4H PRN for wheezing 30 09/20/24 aerosol inhaler (Ventolin HFA) days #54 ea magnesium oxide 400 mg (241.3 mg 400 mg PO BEDTIME 90 days #90 tabs 10/26/24 magnesium) tablet hydroxyzine HCl 25 mg tablet 25 mg PO BEDTIME PRN itching 30 11/11/24 days #30 tabs acetaminophen 650 mg 650 mg PO Q8H PRN arthritis 30 11/27/24 tablet,extended release days #90 tabs hydrocortisone 1 %-pramoxine 1 % 1 appl PA QID PRN hemorrhoids #10 12/03/24 rectal foam (Proctofoam HC) grams loperamide 2 mg capsule 2 mg PO Q6H PRN loose stool #16 12/03/24 (Anti-Diarrheal (loperamide)) caps oxycodone 5 mg tablet 5 mg PO Q8H PRN pain #12 tabs 12/03/24 alcohol swabs (Alcohol Prep Pads) 1 pad topical BID-TID 30 days #100 12/07/24 ea blood sugar diagnostic (FreeStyle #100 ea 12/07/24 Test strips) pen needle, diabetic 32 gauge x #100 ea 12/07/24 (BD Rosario 2nd Gen Pen Needle) promethazine 25 mg rectal 25 mg PA Q6H PRN nausea and 12/24/24 suppository (Promethegan) vomiting #20 ea gabapentin 300 mg capsule 300 mg PO TID 30 days #90 caps 12/26/24 metoprolol succinate 50 mg 50 mg PO DAILY 90 days #90 tabs 01/08/25 tablet,extended release 24 hr hydrocortisone 2.5 % topical cream 1 appl PA BID-QID PRN hemorrhoids 01/15/25 with perineal applicator #30 grams (Proctosol HC) ondansetron 4 mg disintegrating 4 mg PO Q8H PRN Nausea 30 days #90 01/15/25 tablet tabs rizatriptan 10 mg tablet 10 mg PO ONCE PRN migraine 01/16/25 headache 30 days #5 tabs hyoscyamine sulfate 0.125 mg 0.125 mg sublingual Q2-4H PRN for 01/17/25 sublingual tablet indigestion #60 ea Allergies Allergy/AdvReac Type Severity Reaction Status Date / Time Penicillins Allergy Severe swelling Verified 01/18/25 11:09 adhesive tape [ADHESIVE TAPE] Allergy Intermediate RASH Verified 01/18/25 11:09 amoxicillin [AMOXICILLIN] Allergy Intermediate RASH,SWELLI Verified 01/18/25 11:09 NG ibuprofen [From Motrin] Allergy Intermediate Hypertensio Verified 01/18/25 11:09 n latex Allergy Intermediate Rash Verified 01/18/25 11:09 Review of Systems Review of Systems: All other systems are reviewed and are negative Constitutional: Reports as per HPI and Reports no additional constitutional complaints Eyes: Reports as per HPI and Reports no additional eye complaints Reports system reviewed and no additional complaints, except as documented Cardiovascular: Reports as per HPI and Reports no additional cardiovascular complaints Respiratory: Reports as per HPI and Reports no additional respiratory complaints Gastrointestinal: Reports as per HPI and Reports no additional gastrointestinal complaints Genitourinary: Reports no additional female genitourinary complaints Musculoskeletal: Reports no additional musculoskeletal complaints Skin/Breast: Reports system reviewed and no additional complaints, except as docu Psychiatric: Reports no additional psychiatric complaints Endocrine: Reports no additional endocrine complaints Hematologic/Lymphatic: Reports no additional hematologic/lymphatic complaints Allergic/Immunologic: Reports no additional allergic/immunologic complaints Reports system reviewed and no additional complaints, except as documented and Reports Abnormal speech present FOR[facility] Past Medical History Medical History Essential hypertension Left shoulder pain Type 2 diabetes mellitus Hyperparathyroidism Erosive esophagitis Hypertension Acute diarrhea Pre-op examination Cervical radiculopathy Rash of foot [place] albicans infection Cervicalgia Environmental allergies Hospital discharge follow-up MARY on CPAP Elevated red blood cell count Screening for hyperlipidemia Chronic pain syndrome Lumbar pain Encounter for annual routine gynecological examination Multiple air fluid levels of small intestine determined by X-ray Abdominal bloating Hypothyroid Sleep apnea Abdominal cramping Edema Anxiety with depression Chronic pain (Unknown) Gastroparesis Left knee pain Hypothyroidism Bilateral shoulder pain Hyperlipidemia LDL goal <70 Degeneration, intervertebral disc, cervical Spondylosis of cervical spine at multiple levels without myelopathy Sleep apnea Renal calculi Incontinence Goiter Disc degeneration, lumbar Spondylosis of lumbar region without myelopathy or radiculopathy Arthropathy of facet joint Insomnia LUDY (generalized anxiety disorder) Moderately severe recurrent major depression Chronic pain syndrome Morbid (severe) obesity due to excess calories Fibromyalgia Small bowel motility disorder Chronic idiopathic constipation Asthma Surgical History History of knee replacement procedure of right knee History of hernia surgery Hx of colonoscopy History of esophagogastroduodenoscopy (EGD) History of cholecystectomy Delivery by section History of hysterectomy Family History Family History Father Past heart attack Anxiety Mother MOF (multiple organ failure) Brother HIV (human immunodeficiency virus infection) Sister Ovarian cancer Lupus Bone cancer Uterine cancer Tumor Daughter Guillain-Lyle Sister Lupus History of open heart surgery Family/Other Depression FH: mental illness Maternal Aunt Breast cancer Maternal Aunt Tumor Social History Social History Household Members: None Household Members Other:: Housing: Apartment Are you a primary career development facilitator to a significant other at home: No Do you presently have visiting nurse or other home services: No Alcohol intake: never Patient Tobacco Use Status: Never used Tobacco e-Cigarette/Vaping Use: Never Used Second Hand Smoke Exposure: Yes Advance Directives: Yes Advance Directives on File: Yes Advance Directives Date on File: 12/08/21 service: No Current occupational status: unemployed and disabled Cognitive needs: Yes Hearing needs: No Vision needs: No Physical Exam ED Vital Signs: Vital Signs - 24 hr 01/18/25 11:09 01/18/25 13:04 01/18/25 13:55 Temperature 98.3 F 98.7 F Pulse Rate 89 86 Respiratory Rate 16 16 18 Blood Pressure 137/74 102/53 L Pulse Oximetry 96 95 Oxygen Delivery Method Room Air Room Air 01/18/25 14:39 01/18/25 15:05 Temperature 97.8 F 97.8 F Pulse Rate 84 84 Respiratory Rate 20 20 Blood Pressure 190/87 H 190/87 H Pulse Oximetry 97 97 Oxygen Delivery Method Room Air Room Air BMI result Body Mass Index 40.0 Vital signs have been reviewed and appear to be correct. Blood pressure elevated. Heart rate normal. Respiratory rate normal. Temperature normal. Oxygen saturation normal. Appearance: Alert. Oriented X3. No acute distress. Head: Normal external exam. Normocephalic. Atraumatic. No Hanson signs noted. No raccoon eyes noted Eyes: PERRLA. EOMI. Conjunctiva and sclera normal. Eyelids normal. ENT: TM's Normal. Pharynx normal. Uvula midline. Moist mucous membranes. No trismus noted. No drooling noted. No muffled voice noted. Neck: Normal inspection. Neck supple. FROM. No adenopathy. Thyroid Normal. No meningeal signs. No neck mass noted. CVS: Normal heart rate and rhythm. Heart sound normal. No murmurs noted. Pulses normal throughout. Respiratory: No respiratory distress. Painless inspiration. Breath sounds normal. No wheezes/rales/rhonchi noted. Chest nontender. No accessory muscle usage noted or decreased air movement noted. Abdomen: Soft, epigastric tenderness, no rebound tenderness. No distention noted. No organomegaly noted. No visible injury noted. Back: No CVA tenderness. Full range of motion noted. Skin: Skin warm and dry. Normal skin color. Normal skin turgor. No rashes/lesions/lacerations noted. Extremities: No lower extremity edema. Extremities exhibit normal range of motion. Extremities nontender. Neuro: Oriented X 3. Cranial nerve exam: II-XII are grossly intact No motor deficit. No sensory deficit. Reflexes normal. Course Course Course Narrative: This is a rapid medical exam performed by Rossana Clement NP: Additional HPI, ROS, PE not included below will be deferred to primary provider. 01/18/25 11:10 Patient is a 59-year-old female pmhx of hypertension, mixed hyperlipidemia, mood disorder, insulin-dependent diabetes mellitus, hypothyroidism, gastroesophageal reflux disease, congestive heart failure with preserved EF, MARY on CPAP, asthma not on home oxygen presenting with complaint of vomiting for the past month. Average 4 episodes of vomiting per day. Epigastric pain, RUQ pain. Recent colonoscopy on 01/02. Feel symptoms worse overnight. Plan: labs, UA Reevaluation(s) Reevaluation #1: 59-year-old female came in with abdominal pain and intractable vomiting, patient with known history of gastritis/esophagitis by recent endoscopy. Will admit for IV fluids, IV antiemetic. Time: 15:42 Medications Administered Discontinued Medications Generic Name Dose Route Start Last Admin Trade Name Freq PRN Reason Stop Dose Admin Sodium Chloride 1,000 mls @ 999 mls/hr 01/18/25 13:40 01/18/25 13:55 Ns IV 01/18/25 14:40 999 mls/hr .Q1H1M ONE Administration Morphine Sulfate 1 mg 01/18/25 13:40 01/18/25 13:55 Morphine Sulfate 2 Mg/Ml Cartridge IVPUSH 01/18/25 13:41 1 mg ONCE ONE Administration Protocol Ondansetron HCl 4 mg 01/18/25 13:40 01/18/25 13:55 Ondansetron Hcl 4 Mg/2 Ml Vial IVPUSH 01/18/25 13:41 4 mg ONCE ONE Administration Pantoprazole Sodium 40 mg 01/18/25 13:40 01/18/25 13:55 Pantoprazole Sodium 40 Mg/10 Ml Vial IVPUSH 01/18/25 13:41 40 mg ONCE ONE Administration Medical Decision Making Differential Diagnosis Differential Diagnoses: The differential diagnosis associated with the presentation includes (Intractable vomiting, severe dehydration, electrolyte derangement, UTI, severe anemia, colitis, diverticulitis, pancreatitis.) Admission/Observation Consideration of admission/observation: Escalation of care including admission/observation considered Consult Healthcare Provider Management of the patient was discussed with: Hospitalist (Dr. Batista) Lab Data MDM Lab Attestation statement: I reviewed the patient's lab results. 01/18/25 11:25 01/18/25 11:25 Labs: Lab Results 01/18/25 Range/Units 11:25 WBC 16.2 H (4.8-10.8) X10*3/uL RBC 5.67 H (4.20-5.50) X10*6/uL Hgb 13.7 (12.0-16.0) g/dl Hct 44.5 (37.0-47.0) % MCV 78.5 L (80.0-98.0) fL MCH 24.2 L (27.0-33.0) pg MCHC 30.8 L (31.0-35.0) g/dl RDW 17.4 H (11.0-16.0) % Plt Count 282 (160-400) X10*3/uL MPV 10.5 (9.4-12.3) fL Immature Gran % (Auto) 0.6 H (0.0-0.4) % Neut % (Auto) 74.4 H (45-73) % Lymph % (Auto) 18.1 L (20-40) % [place] % (Auto) 4.3 (2-11) % Eos % (Auto) 2.2 (0-4) % Baso % (Auto) 0.4 (0-2) % Lymph # (Auto) 2.9 (1.2-4.9) X10*3/uL [place] # (Auto) 0.7 (0.1-1.2) X10*3/uL Eos # (Auto) 0.4 (0.0-0.4) X10*3/uL Baso # (Auto) 0.1 (0.0-0.2) X10*3/uL Abs Immat Gran (auto) 0.09 H (0.00-0.03) X10*3/uL Absolute Neuts (auto) 12.0 H (2.0-8.3) x10*3/uL Absolute Nucleated RBC 0.000 (0.0-0.012) X10*3/uL Nucleated RBC % (auto) 0.0 (0.0-0.2) /100WBC Sodium 141 (135-145) mmol/L Potassium 3.9 (3.3-5.1) mmol/L Chloride 106 (96-108) mmol/L Carbon Dioxide 26 (22-29) mmol/L Anion Gap 13 (12-20) BUN 9 (9-16) mg/dL Creatinine 0.73 (0.5-1.4) mg/dL Estim Creat Clear Calc 110.5 Estimated GFR > 60 Random Glucose 127 H (60-115) mg/dL Calcium 9.6 (8.4-10.2) mg/dL Total Bilirubin 0.7 (0.0-1.0) mg/dL AST 18 (5-31) U/L ALT 15 (0-31) U/L Alkaline Phosphatase 109 (39-117) U/L Total Protein 7.4 (6.5-8.0) g/dL Albumin 3.7 (3.5-5.0) g/dL Lipase 33 (8-78) U/L Urine Color Yellow Urine Appearance Clear Urine pH 7.5 (5.0-9.0) Ur Specific [place] 1.020 (1.005-1.025) Urine Protein Trace (Neg-Trace) mg/dL Urine Glucose (UA) Negative (Negative) mg/dL Urine Ketones Trace (Negative) mg/dL Urine Blood Negative (Negative) Urine Nitrite Negative (Negative) Ur Leukocyte Esterase Trace H (Negative) Urine RBC 0-2 (0-2) /HPF Urine WBC 0-5 (0-5) /HPF Ur Squamous Epith Cells 3-5 (0-2) /HPF Urine Bacteria None Seen (None Seen) Hyaline Casts 0-2 (0-2) /LPF Discharge Plan Discharge Clinical Impression: Gastritis, Intractable vomiting Patient Disposition: Admitted As Inpatient Print Language: Sinhala
[2025-01-18 11:29] LABS: MANUAL DIFF FLAG NO
[2025-01-18 11:31] LABS: Basophils Absolute Auto 0.1 X10*3/uL (0.0-0.2); Basophils Percent Auto 0.4 % (0-2); Eosinophils Absolute Auto 0.4 X10*3/uL (0.0-0.4); Eosinophils Percent Auto 2.2 % (0-4); Hematocrit 44.5 % (37.0-47.0); Hemoglobin 13.7 g/dl (12.0-16.0); Imm Gran Abs Auto 0.09 X10*3/uL (0.00-0.03); Imm Gran Pct Auto 0.6 % (0.0-0.4); Lymphocytes Absolute Auto 2.9 X10*3/uL (1.2-4.9); Lymphocytes Percent Auto 18.1 % (20-40); Mean Corpuscular HGB Conc 30.8 g/dl (31.0-35.0); Mean Corpuscular Hemoglobin 24.2 pg (27.0-33.0); Mean Corpuscular Volume 78.5 fL (80.0-98.0); Mean Platelet Volume 10.5 fL (9.4-12.3); Monocytes Absolute Auto 0.7 X10*3/uL (0.1-1.2); Monocytes Percent Auto 4.3 % (2-11); Neutrophils Percent Auto 74.4 % (45-73); Platelet Count 282 X10*3/uL (160-400); Red Blood Count 5.67 X10*6/uL (4.20-5.50); Red Cell Distribution Width 17.4 % (11.0-16.0); White Blood Count 16.2 X10*3/uL (4.8-10.8)
[2025-01-18 11:32] LABS: Appearance Urine Clear; Color Urine Yellow; Glucose Urine UA Negative (Negative); Leukocyte Esterase Urine Trace (Negative); Nitrite Urine Negative (Negative); PH 7.5 (5.0-9.0); UMIC TRIGGER UACC YES; Urine Blood Negative (Negative); Urine Ketones Trace mg/dL (Negative); Urine Protein Trace mg/dL (Neg-Trace)
[2025-01-18 11:37] LABS: Bacteria Urine None Seen (None Seen); Hyaline Casts Urine 0-2 /LPF (0-2); RBC Urine 0-2 /HPF (0-2); WBC Urine 0-5 /HPF (0-5)
[2025-01-18 11:54] LABS: Alanine Aminotransferase 15 U/L (0-31); Albumin Level 3.7 g/dL (3.5-5.0); Alkaline Phosphatase 109 U/L (39-117); Anion Gap 13 (12-20); Aspartate Amino Transferase 18 U/L (5-31); Bilirubin Total 0.7 mg/dL (0.0-1.0); Blood Urea Nitrogen 9 mg/dL (9-16); Calcium 9.6 mg/dL (8.4-10.2); Carbon Dioxide 26 mmol/L (22-29); Chloride 106 mmol/L (96-108); Creatinine Clr Calc Pharmacy 110.5; Estimated Glomerular Filt Rate > 60; Glucose Random 127 mg/dL (60-115); Lipase 33 U/L (8-78); Potassium 3.9 mmol/L (3.3-5.1); Sodium 141 mmol/L (135-145); Total Protein 7.4 g/dL (6.5-8.0)
[2025-01-18] MEDS: ondansetron HCL 4 MG/2 ML VIAL IVPUSH ×2 (13:55→16:02)
[2025-01-18] MEDS: 0.9 % Sodium Chloride 1,000 ML 999 ML IV (13:55)
[2025-01-18] MEDS: Morphine Sulfate 2 MG/ML CARTRIDGE 1 MG IVPUSH (13:55)
[2025-01-18] MEDS: Pantoprazole Sodium 40 MG/10 ML VIAL IVPUSH (13:55)
--- NOTE | 2025-01-18 16:11 | P.HPHOSP_ITS ---
History of Present Illness Date of Service: 01/18/25 Attending physician on admission: Goran Page Chief Complaint: N/V and abd pain Pt is a 59-year-old female with a PMH significant for?HFpEF, insulin-dependent type 2 diabetes, HTN, HLD, hypothyroidism, GERD, esophagitis/gastritis, asthma, MARY on CPAP, and mood disorder who presents to the ED with?intractable nausea, nonbloody vomiting, and abdominal pain x4 days. N/V primarily postprandial occurring 20 minutes after pt eats or drinks. Describes abdominal pain as a burning sensation, located centrally and substernally, radiating to sites. Denies diarrhea. Chills but no fever. Also experiencing some SOB but no cough. Pt has been admitted to the hospital for similar symptoms in the past, including during 09/2023 and more recently from 12/01-12/02/2024. Has had extensive GI workup in the past without definitive diagnosis for patient's symptoms. After last discharge underwent outpatient endoscopy and colonoscopy on 01/02/[address] Ballard. EGD found gastritis, mild esophagitis, and dysmotility. Colonoscopy found internal hemorrhoids and dysmotility. In the ED pt was hypertensive as high as 194/93, vitals otherwise stable and WNL. Labs were grossly unremarkable and around baseline for pt. Chronic leukocytosis leukocytosis of 16.2. Stable H&H. No significant electrolyte abnormalities. Renal function WNL. Hepatic function WNL. Lipase WNL. UA negative for UTI. Pt was treated in the ED with IVF, Protonix, morphine, and ondansetron. Pt admitted to the hospital under observation for treatment and further evaluation of intractable nausea, vomiting, and abdominal pain. Review of Systems 2 Review of Systems: Negative except for that which is stated in the HPI. [facility] Medical History Essential hypertension Left shoulder pain Type 2 diabetes mellitus Hyperparathyroidism Erosive esophagitis Hypertension Acute diarrhea Pre-op examination Cervical radiculopathy Rash of foot Kiera albicans infection Cervicalgia Environmental allergies Hospital discharge follow-up MARY on CPAP Elevated red blood cell count Screening for hyperlipidemia Chronic pain syndrome Lumbar pain Encounter for annual routine gynecological examination Multiple air fluid levels of small intestine determined by X-ray Abdominal bloating Hypothyroid Sleep apnea Abdominal cramping Edema Anxiety with depression Chronic pain (Unknown) Gastroparesis Left knee pain Hypothyroidism Bilateral shoulder pain Hyperlipidemia LDL goal <70 Degeneration, intervertebral disc, cervical Spondylosis of cervical spine at multiple levels without myelopathy Sleep apnea Renal calculi Incontinence Goiter Disc degeneration, lumbar Spondylosis of lumbar region without myelopathy or radiculopathy Arthropathy of facet joint Insomnia LUDY (generalized anxiety disorder) Moderately severe recurrent major depression Chronic pain syndrome Morbid (severe) obesity due to excess calories Fibromyalgia Small bowel motility disorder Chronic idiopathic constipation Asthma Family History Father Past heart attack Anxiety Mother MOF (multiple organ failure) Brother HIV (human immunodeficiency virus infection) Sister Ovarian cancer Lupus Bone cancer Uterine cancer Tumor Daughter Guillain-Havana Sister Lupus History of open heart surgery Family/Other Depression FH: mental illness Maternal Aunt Breast cancer Maternal Aunt Tumor Surgical History History of knee replacement procedure of right knee History of hernia surgery Hx of colonoscopy History of esophagogastroduodenoscopy (EGD) History of cholecystectomy Delivery by section History of hysterectomy Social History Household Members: None Household Members Other:: Housing: Apartment Are you a primary career development engineer to a significant other at home: No Do you presently have visiting nurse or other home services: No Alcohol intake: never Patient Tobacco Use Status: Never used Tobacco Smoked in Last 30 Days: No e-Cigarette/Vaping Use: Never Used Second Hand Smoke Exposure: Yes Use of substances other than those prescribed or required for medical reasons: No Advance Directives: Yes Advance Directives on File: Yes Advance Directives Date on File: 12/08/21 Do you have a plan to hurt others: No Plan Nutrition Risks: No Nutritional Risk Patient : No service: No Current occupational status: unemployed and disabled Cognitive needs: Yes Hearing needs: No Vision needs: No Meds Allergies Allergy/AdvReac Type Severity Reaction Status Date / Time Penicillins Allergy Severe swelling Verified 01/18/25 11:09 adhesive tape [ADHESIVE TAPE] Allergy Intermediate RASH Verified 01/18/25 11:09 amoxicillin [AMOXICILLIN] Allergy Intermediate RASH,SWELLI Verified 01/18/25 11:09 NG ibuprofen [From Motrin] Allergy Intermediate Hypertensio Verified 01/18/25 11:09 n latex Allergy Intermediate Rash Verified 01/18/25 11:09 Home Medications ?Medication ?Instructions ?Recorded ?Confirmed ?Last Taken ?Type CPAP (CPAP Machine/Device) 03/01/24 01/02/25 Unknown History nebulizers 03/01/24 01/02/25 Unknown History cholecalciferol (vitamin D3) 50 50 mcg PO BEDTIME 12/01/24 01/18/25 11/27/24 History mcg (2,000 unit) capsule docusate sodium 100 mg capsule 100 mg PO BID PRN Constipation 12/01/24 01/18/25 11/28/24 History (Colace) insulin lispro 100 unit/mL 5 unit subcut DAILY@1700 12/01/24 01/02/25 11/27/24 History subcutaneous pen (Humalog KwikPen (U-100) Insulin) pantoprazole 40 mg tablet,delayed 40 mg PO BID 12/26/24 01/18/25 Unknown History release clonazepam 1 mg tablet 0.5 mg PO TID PRN anxiety 01/18/25 01/18/25 Unknown History hydroxyzine HCl 50 mg tablet 50 mg PO TID 01/18/25 01/18/25 Unknown History paroxetine HCl 40 mg tablet 40 mg PO DAILY 01/18/25 01/18/25 Unknown History trazodone 150 mg tablet 150 mg PO BEDTIME 01/18/25 01/18/25 Unknown History Physical Exam 2 Vital Signs and Narrative: Vital Signs: Last Vital Signs Temp 97.0 F 01/18/25 16:04 Pulse 81 01/18/25 16:04 Resp 16 01/18/25 16:04 BP 194/93 H 01/18/25 16:04 Pulse Ox 95 01/18/25 16:04 O2 Del Method Room Air 01/18/25 16:04 BMI result Body Mass Index 40.0 General: AOx3, no acute distress Resp: CTA bilaterally CVS: S1, S2, RRR GI: +BS, no distention. Epigastric and right-sided abd tenderness. Skin: Warm, dry Neuro: Cranial nerves II-XII grossly intact bilaterally. Motor grossly intact bilaterally Extremities: No edema Psych: Appropriate affect Results Labs 01/18/25 11:25 01/18/25 11:25 Labs: Laboratory Results - last 24 hr 01/18/25 11:25 MCV 78.5 L MCH 24.2 L MCHC 30.8 L RDW 17.4 H Plt Count 282 MPV 10.5 Immature Gran % (Auto) 0.6 H Neut % (Auto) 74.4 H Lymph % (Auto) 18.1 L Garvin % (Auto) 4.3 Eos % (Auto) 2.2 Baso % (Auto) 0.4 Lymph # (Auto) 2.9 Garvin # (Auto) 0.7 Eos # (Auto) 0.4 Baso # (Auto) 0.1 Abs Immat Gran (auto) 0.09 H Absolute Neuts (auto) 12.0 H Absolute Nucleated RBC 0.000 Nucleated RBC % (auto) 0.0 Anion Gap 13 Estim Creat Clear Calc 110.5 Estimated GFR > 60 Random Glucose 127 H Calcium 9.6 Total Bilirubin 0.7 AST 18 ALT 15 Alkaline Phosphatase 109 Total Protein 7.4 Albumin 3.7 Lipase 33 Urine Color Yellow Urine Appearance Clear Urine pH 7.5 Ur Specific Henderson 1.020 Urine Protein Trace Urine Glucose (UA) Negative Urine Ketones Trace Urine Blood Negative Urine Nitrite Negative Ur Leukocyte Esterase Trace H Urine RBC 0-2 Urine WBC 0-5 Ur Squamous Epith Cells 3-5 Urine Bacteria None Seen Hyaline Casts 0-2 Assessment and Plan (1) Intractable vomiting: Status: Acute (2) Abdominal pain: Qualifiers: Abdominal location: right lower quadrant Qualified Code(s): R10.31 - Right lower quadrant pain Status: Acute Plan Pt is a 59-year-old female with a PMH significant for?HFpEF, insulin-dependent type 2 diabetes, HTN, HLD, hypothyroidism, GERD, esophagitis/gastritis, asthma, MARY on CPAP, and mood disorder who presents to the ED with?intractable nausea, nonbloody vomiting, and abdominal pain x4 days. Pt admitted to the hospital under observation for treatment and further evaluation of intractable nausea, vomiting, and abdominal pain. Intractable nausea, vomiting, abdominal pain Ongoing x4 days; multiple prior presentation to the hospital with similar symptoms Recent EGD showing esophagitis and gastritis Will treat with antiemetics, IVF, and Protonix IV GI consult Clear liquid diet for now, advance as tolerated Leukocytosis WBCs 6 2.2, chronically elevated Likely reactionary No indication of active infection, no antibiotics indicated at this time HTN Pt with variable BP initially normotensive than hypertensive as high as 194/93 Currently normotensive again at 123/88 without intervention Continue metoprolol Monitor BP Insulin-dependent type 2 diabetes Sliding-scale insulin, Lantus at reduced rate until full diet Asthma Not in acute exacerbation Continue home inhalers Hypothyroidism Continue levothyroxine HLD Continue statin MARY CPAP Obesity class 3 Encourage weight loss Full Code Attending:?Dr. Page DVT Prophylaxis: Lovenox Pt will be admitted to the hospital under observation for treatment and further evaluation of intractable nausea, vomiting, and abdominal pain Likely in the setting of gastritis/esophagitis. Given patient's inability to tolerate p.o. intake, she will require hospital level care for administration of IVF, IV antiemetics, and Protonix IV, as well as GI consultation. Quality Stroke Does the patient have a stroke diagnosis?: No VTE Prior VTE?: No VTE Risk Level:: Medical - moderate - high VTE Device Contraindication: Treatment Not Indicated VTE Drug Contraindication: N/A - Med Ordered
--- NOTE | 2025-01-18 16:33 | PC.NURSE ---
This RN went to give Hydralazine however BP 123/88, admitting provider at bedside who verbally told this RN to hold it and that he would order a PRN if sys is above 170
[2025-01-18] MEDS: Enoxaparin Sodium 40 MG/0.4 ML SYRINGE SUBCUT (17:46)
--- NOTE | 2025-01-18 18:55 | PHA.MEDREC ---
Addendum entered by Anushka Cheng RPh 01/18/25 19:17: Reviewed by [facility] Original Note: Pharmacy Consult ? Medication Reconciliation Pharmacy has completed the medication reconciliation. Patient is a poor historian. Patient instructed me to call her daughter Nancy to confirm her medication. Called and spoke to patient daughter and she states she was not at her moms house to review her moms medications. Daughter instructed me he call Her daughter (*patient granddaughter*) Naty [phone]. Called and spoke to patients granddaughter to confirm med list. Goddaughter was able to read patient medication bottles. Grand daughter confirmed Insulin Glargine 15 units daily, however did not see humalog Silvapen in her frig.
[2025-01-18] MEDS: Morphine Sulfate 2 MG/ML CARTRIDGE IVPUSH (19:24)
--- NOTE | 2025-01-18 19:28 | PC.NURSE ---
Patient awake and alert. skin pale, warm, dry. resp even and non labored, speaking in full, clear sentences. c/o 07/13 abdominal pain and headache, medicated per DEC. awaiting admission
[2025-01-18] MEDS: Insulin Lispro 100 UNIT/ML 3 ML VIAL SUBCUT (21:03)
[2025-01-18] MEDS: oxyCODONE HCl Immed Release 15 MG TABLET PO (21:03)
[2025-01-18] MEDS: 0.9 % Sodium Chloride Flush 3 ML SYRINGE IVFLUSH (21:03)
[2025-01-18 21:08] LABS: Glucose, Whole Blood 177 mg/dL (60-115)
[2025-01-19] VITALS (7 sets, daily range): BP systolic 102–119; BP diastolic 55–65; PULSE 63–76; RESP 1–18; TEMP 35.9–36.5; O2SAT 91–97
[2025-01-19] MEDS: Morphine Sulfate 2 MG/ML CARTRIDGE IVPUSH ×4 (00:22→17:09)
[2025-01-19] MEDS: Pantoprazole Sodium 40 MG/10 ML VIAL IVPUSH ×2 (04:22→17:09)
[2025-01-19 07:02] LABS: Hematocrit 38.5 % (37.0-47.0); Hemoglobin 11.4 g/dl (12.0-16.0); Mean Corpuscular HGB Conc 29.6 g/dl (31.0-35.0); Mean Corpuscular Hemoglobin 23.8 pg (27.0-33.0); Mean Corpuscular Volume 80.4 fL (80.0-98.0); Mean Platelet Volume 11.4 fL (9.4-12.3); Platelet Count 171 X10*3/uL (160-400); Red Blood Count 4.79 X10*6/uL (4.20-5.50); Red Cell Distribution Width 17.2 % (11.0-16.0); White Blood Count 9.8 X10*3/uL (4.8-10.8)
[2025-01-19 07:08] LABS: Anion Gap 11 (12-20); Blood Urea Nitrogen 9 mg/dL (9-16); Calcium 8.6 mg/dL (8.4-10.2); Carbon Dioxide 24 mmol/L (22-29); Chloride 108 mmol/L (96-108); Creatinine Clr Calc Pharmacy 118.7; Estimated Glomerular Filt Rate > 60; Glucose Random 93 mg/dL (60-115); Sodium 139 mmol/L (135-145)
[2025-01-19 07:33] LABS: Glucose, Whole Blood 95 mg/dL (60-115)
[2025-01-19] MEDS: 0.9 % Sodium Chloride Flush 3 ML SYRINGE IVFLUSH ×2 (07:39→17:09)
--- NOTE | 2025-01-19 08:04 | PM.GICN ---
History of Present Illness Data of Consult Service Date: 01/19/25 Requesting physician: Khurram Richter Primary Care Provider: Jenny Bell MD HPI 59 YF with HFpEF, insulin-dependent type 2 diabetes, HTN, HLD, hypothyroidism, GERD, esophagitis/gastritis, asthma, MARY on CPAP, and mood disorder seen at [facility] on 01/18/25 with?4 day hx of intractable nausea, nonbloody vomiting, and abdominal pain. Pt states nausea and vomiting is usually post prandial - 15 to 20 minutes after she eats or drinks. Describes abdominal pain as a burning sensation, located centrally and substernally, radiating to sites. Pt complains of chills without fever, some SOB and denies diarrhea. Chills but no fever. Pt was hospitalized with similar symptoms in the past, including during 09/2023 and more recently from 12/01-12/02/2024. Has had extensive GI workup in the past without definitive diagnosis for patient's symptoms. After last discharge underwent outpatient endoscopy and colonoscopy on 01/02/[address] Viramontes. EGD found gastritis, mild esophagitis, and dysmotility. Colonoscopy found internal hemorrhoids and dysmotility. In the ED pt was hypertensive as high as 194/93, vitals otherwise stable and WNL. Labs were grossly unremarkable and around baseline for pt. Chronic leukocytosis leukocytosis of 16.2. Stable H&H. No significant electrolyte abnormalities. Renal function WNL. Hepatic function WNL. Lipase WNL. UA negative for UTI. Pt was treated in the ED with IVF, Protonix, morphine, and ondansetron and admitted for further management. IMAGING STUDIES: 12/19/24 KUB SHOWED: Moderate to large amount of stool throughout the colon. 05/08/22 GASTRIC EMPTYING STUDY SHOWED: 1 hour 83% (normal 37%-90%) 2 hours 64% (normal 30%-60%) 3 hours 44% 4 hours 27% (normal 0%-10%) IMPRESSION: Delayed gastric emptying as described. PAST GI HISTORY BY REVIEW OF MEDICAL RECORDS: 01/02/25 EGD AND COLONOSCOPY WERE PERFORMED BY DR. VIRAMONTES: Endoscopy Findings: gastritis mild esophagitis dysmotility Colonoscopy Findings: internal hemorrhoids dysmotility Plan: Await Pathology results Repeat Colonoscopy in 1-2 years due to suboptimal prep High fiber diet leaflet avoid straining at stool, epsom salts and sitz bath, anusol supps or cream consider rept capsule or CTe BIOPSIES SHOWED: A. Duodenum, biopsy: Duodenal mucosa within normal limits. B. Stomach, biopsy: Antral-type and oxyntic mucosa with mild chronic inactive inflammation and regenerative changes in the antrum; no Helicobacter organisms seen. C. GE junction, biopsy: - Cardiofundic-type mucosa with moderate chronic active inflammation; no intestinal metaplasia seen. - Active esophagitis (few neutrophils). D. Esophagus, distal, biopsy: Squamous epithelium within normal limits; no inflammation seen. E. Colon, right, biopsy: Focally active colitis. F. Colon, left, biopsy: Colonic mucosa within normal limits. G. Rectum, biopsy: Rectal mucosa within normal limits Review of Systems Review of Systems: Negative except for that which is stated in the HPI. [facility] Past Medical History Medical History Essential hypertension Left shoulder pain Type 2 diabetes mellitus Hyperparathyroidism Erosive esophagitis Hypertension Acute diarrhea Pre-op examination Cervical radiculopathy Rash of foot Kiera albicans infection Cervicalgia Environmental allergies Hospital discharge follow-up MARY on CPAP Elevated red blood cell count Screening for hyperlipidemia Chronic pain syndrome Lumbar pain Encounter for annual routine gynecological examination Multiple air fluid levels of small intestine determined by X-ray Abdominal bloating Hypothyroid Sleep apnea Abdominal cramping Edema Anxiety with depression Chronic pain (Unknown) Gastroparesis Left knee pain Hypothyroidism Bilateral shoulder pain Hyperlipidemia LDL goal <70 Degeneration, intervertebral disc, cervical Spondylosis of cervical spine at multiple levels without myelopathy Sleep apnea Renal calculi Incontinence Goiter Disc degeneration, lumbar Spondylosis of lumbar region without myelopathy or radiculopathy Arthropathy of facet joint Insomnia LUDY (generalized anxiety disorder) Moderately severe recurrent major depression Chronic pain syndrome Morbid (severe) obesity due to excess calories Fibromyalgia Small bowel motility disorder Chronic idiopathic constipation Asthma Family History Family History Father Past heart attack Anxiety Mother MOF (multiple organ failure) Brother HIV (human immunodeficiency virus infection) Sister Ovarian cancer Lupus Bone cancer Uterine cancer Tumor Daughter Guillain-[place] Sister Lupus History of open heart surgery Family/Other Depression FH: mental illness Maternal Aunt Breast cancer Maternal Aunt Tumor Surgical History Surgical History History of knee replacement procedure of right knee History of hernia surgery Hx of colonoscopy History of esophagogastroduodenoscopy (EGD) History of cholecystectomy Delivery by section History of hysterectomy Social History Social History Household Members: Children Household Members Other:: Daughter Housing: House Are you a primary assurance services manager health care to a significant other at home: No Do you presently have visiting nurse or other home services: Yes Alcohol intake: never Patient Tobacco Use Status: Never used Tobacco Smoked in Last 30 Days: No e-Cigarette/Vaping Use: Never Used Patient Interested in Nicotine Replacement: No Patient Given Instructions on How to Stop Smoking: No Second Hand Smoke Exposure: No Use of substances other than those prescribed or required for medical reasons: No Currently Displaying Signs/Symptoms of Drug Intoxication Withdrawal: No Any prior treatment program specific to substance use: No Have you been hit, kicked, punched, or otherwise hurt by someone within the past year? If so, by whom?: No Do you feel safe in your current relationship?: Yes Is there a partner from a previous relationship who is making you feel unsafe now?: No Are you made to feel afraid or neglected: No Advance Directives: Yes Advance Directives on File: Yes Advance Directives Date on File: 12/08/21 Do you have a plan to hurt others: No Plan Recently lost weight without trying: Yes How much weight loss: 2-13 pounds Eating poorly because of decreased appetite: No Nutrition screen score: 3 Nutrition Risks: Poor intake 0-25% >4 days Patient : No : No Poor oral hygiene: No service: No Current occupational status: unemployed and disabled Cognitive needs: Yes Hearing needs: No Vision needs: No Meds Allergies Allergy/AdvReac Type Severity Reaction Status Date / Time Penicillins Allergy Severe swelling Verified 01/18/25 11:09 adhesive tape [ADHESIVE TAPE] Allergy Intermediate RASH Verified 01/18/25 11:09 amoxicillin [AMOXICILLIN] Allergy Intermediate RASH,SWELLI Verified 01/18/25 11:09 NG ibuprofen [From Motrin] Allergy Intermediate Hypertensio Verified 01/18/25 11:09 n latex Allergy Intermediate Rash Verified 01/18/25 11:09 Active Medications: Current Medications Acetaminophen (Acetaminophen 325 Mg Tablet) 650 mg PO Q6H PRN PRN Reason: Pain, Mild 1-3,fever,headache Albuterol Sulfate (Albuterol Sulfate (0.083%) 2.5 Mg/3 Ml Vial.Neb) 2.5 mg INHALE Q6H PRN PRN Reason: shortness of breath or wheezing Atorvastatin Calcium (Atorvastatin Calcium 10 Mg Tablet) 10 mg PO BEDTIME RADHA Calcium Carbonate (Calcium Carbonate 750 Mg Tab.Chew) 750 mg PO Q4H PRN PRN Reason: Heartburn Clonazepam (Clonazepam 0.5 Mg Tablet) 0.5 mg PO TID PRN PRN Reason: anxiety Dextrose (Dextrose 50 % 25 Gm/50 Ml Syringe) 25 gm IVPUSH Q15M PRN; Protocol PRN Reason: per Hypoglycemia Standing Ord. Docusate Sodium (Docusate Sodium 100 Mg Capsule) 100 mg PO BID PRN PRN Reason: Constipation Enoxaparin Sodium (Enoxaparin Sodium 40 Mg/0.4 Ml Syringe) 40 mg SUBCUT Q24H [facility] Last Admin: 01/18/25 17:46 Dose: 40 mg Fluticasone/Vilanterol (Fluticasone/Vilanterol 200/25 Blst.W.Dev) 1 puff INHALE DAILY [facility] Gabapentin (Gabapentin 300 Mg Capsule) 300 mg PO TID [facility] Glucose (Glucose Gel 15 Gm Gel..Gram.) 15 gm PO Q15M PRN; Protocol PRN Reason: per Hypoglycemia Standing Ord. Hydrocortisone (Hydrocortisone 2.5 % Rectal Cr 30 Gm Tube) 1 appl NV BID-QID PRN PRN Reason: hemorrhoids Hydroxyzine HCl (Hydroxyzine Hcl 50 Mg Tablet) 50 mg PO TID [facility] Insulin Human Lispro (Insulin Lispro 100 Unit/Ml 3 Ml Vial) 0 unit SUBCUT QIDACHS [facility]; Protocol Last Admin: 01/19/25 07:40 Dose: Not Given Levothyroxine Sodium (Levothyroxine Sodium 112 Mcg Tablet) 112 mcg PO DAILY@0600 [facility] Loperamide HCl (Loperamide Hcl 2 Mg Capsule) 2 mg PO Q6H PRN PRN Reason: loose stool Magnesium Hydroxide (Milk Of Magnesia 30 Ml Oral.Susp) 30 ml PO DAILY PRN PRN Reason: Constipation Magnesium Oxide (Magnesium Oxide 400 Mg Tablet) 400 mg PO BEDTIME [facility] Meclizine HCl (Meclizine Hcl 25 Mg Tablet) 25 mg PO DAILY PRN PRN Reason: dizziness Melatonin (Melatonin 3 Mg Tablet) 6 mg PO BEDTIME PRN PRN Reason: Insomnia Metoprolol Succinate (Metoprolol Succinate Er 50 Mg Tab.Er.24h) 50 mg PO DAILY [facility]; Protocol Morphine Sulfate (Morphine Sulfate 2 Mg/Ml Cartridge) 2 mg IVPUSH Q4H PRN; Protocol PRN Reason: Pain, Severe (Pain Scale 7-10) Last Admin: 01/19/25 04:21 Dose: 2 mg Non-Formulary Medication (Ferrous Sulfate) 325 mg PO DAILY [facility] Ondansetron HCl (Ondansetron Hcl 4 Mg/2 Ml Vial) 4 mg IVPUSH Q8H PRN PRN Reason: Nausea and Vomiting Pantoprazole Sodium (Pantoprazole Sodium 40 Mg/10 Ml Vial) 40 mg IVPUSH BID@0630,1630 [facility] Last Admin: 01/19/25 04:22 Dose: 40 mg Paroxetine HCl (Paroxetine Hcl 40 Mg Tablet) 40 mg PO DAILY [facility] Sodium Chloride (0.9 % Sodium Chloride Flush 3 Ml Syringe) 3 ml IVFLUSH QSHIFT [facility] Last Admin: 01/19/25 07:39 Dose: 3 ml Trazodone HCl (Trazodone Hcl 50 Mg Tablet) 150 mg PO BEDTIME [facility] Vitamin D (Cholecalciferol (Vitamin D3) 25 Mcg Tablet) 50 mcg PO BEDTIME [facility] Home Medications ?Medication ?Instructions ?Recorded ?Confirmed ?Last Taken ?Type CPAP (CPAP Machine/Device) 03/01/24 01/02/25 Unknown History nebulizers 03/01/24 01/02/25 Unknown History cholecalciferol (vitamin D3) 50 50 mcg PO BEDTIME 12/01/24 01/18/25 11/27/24 History mcg (2,000 unit) capsule docusate sodium 100 mg capsule 100 mg PO BID PRN Constipation 12/01/24 01/18/25 11/28/24 History (Colace) insulin lispro 100 unit/mL 5 unit subcut DAILY@1700 12/01/24 01/02/25 11/27/24 History subcutaneous pen (Humalog KwikPen (U-100) Insulin) pantoprazole 40 mg tablet,delayed 40 mg PO BID@0630,1630 12/26/24 01/18/25 Unknown History release clonazepam 1 mg tablet 0.5 mg PO TID PRN anxiety 01/18/25 01/18/25 Unknown History hydroxyzine HCl 50 mg tablet 50 mg PO TID 01/18/25 01/18/25 Unknown History paroxetine HCl 40 mg tablet 40 mg PO DAILY 01/18/25 01/18/25 Unknown History trazodone 150 mg tablet 150 mg PO BEDTIME 01/18/25 01/18/25 Unknown History Physical Exam Vital Signs: Vital Signs: Last Vital Signs Temp 97.5 F 01/19/25 07:58 Pulse 66 01/19/25 07:58 Resp 18 01/19/25 07:58 BP 113/55 L 01/19/25 07:58 Pulse Ox 95 01/19/25 07:58 O2 Del Method Room Air 01/19/25 07:58 BMI result Body Mass Index 40.0 Const: General: healthy appearing and no acute distress Nutritional Appearance: obese Orientation/consciousness: patient oriented x3 Limitations: no limitations HEENT: Head: Yes normal to inspection Ears: hearing grossly normal bilaterally Mouth: Normal oral and palatal mucosa present Eyes: Sclerae: sclerae normal Pupils: Equal, round and reactive pupils present Neck: Neck: Yes normal visual inspection Chest: Chest palpation & inspection: normal inspection of the chest Resp: Effort & Inspection: normal respiratory effort Auscultation: clear to auscultation bilaterally Cardio: Palpation: normal PMI Rate: regular rate Rhythm: regular rhythm Heart sounds: S1 normal heart sound present, S2 normal heart sound present and no murmurs GI: Palpation (GI): Soft to palpation, Tenderness to palpation present (GI) (Epigastric and RUQ tenderness without rebound) and No hepatosplenomegaly present Auscultation: normal bowel sounds Rectal Exam - Female: deferred Skin: General skin exam: no rashes or lesions noted Neuro: General: patient oriented x3, gait normal and moves all extremities Cranial nerves: Yes Equal, round and reactive pupils present Psych: Appearance: grossly normal Mental Status: mental status grossly normal Results Labs 01/19/25 06:39 01/19/25 06:39 Labs: Short CBC 01/18/25 01/19/25 Range/Units 11:25 06:39 WBC 16.2 H 9.8 (4.8-10.8) X10*3/uL Hgb 13.7 11.4 L (12.0-16.0) g/dl Hct 44.5 38.5 (37.0-47.0) % Plt Count 282 171 D (160-400) X10*3/uL BMP 01/18/25 01/19/25 11:25 06:39 Sodium 141 139 Potassium 3.9 4.0 Chloride 106 108 Carbon Dioxide 26 24 BUN 9 9 Creatinine 0.73 0.68 Calcium 9.6 8.6 D Liver Function 01/18/25 Range/Units 11:25 Total Bilirubin 0.7 (0.0-1.0) mg/dL AST 18 (5-31) U/L ALT 15 (0-31) U/L Alkaline Phosphatase 109 (39-117) U/L Albumin 3.7 (3.5-5.0) g/dL Urine 01/18/25 Range/Units 11:25 Urine Color Yellow Urine Appearance Clear Urine pH 7.5 (5.0-9.0) Ur Specific [place] 1.020 (1.005-1.025) Urine Protein Trace (Neg-Trace) mg/dL Urine Glucose (UA) Negative (Negative) mg/dL Assessment and Plan (1) Intractable vomiting: Status: Acute (2) Constipation by delayed colonic transit: Status: Acute (3) Right sided abdominal pain: Status: Acute Plan 59 YF with HFpEF, insulin-dependent type 2 diabetes, HTN, HLD, hypothyroidism, GERD, esophagitis/gastritis, asthma, MARY on CPAP, and mood disorder seen at [facility] on 01/18/25 with?4 day hx of intractable nausea, nonbloody vomiting, and abdominal pain. Pt is status post Lap Genet in 07/2023 Pt was hospitalized with similar symptoms in the past, including during 09/2023 and more recently from 12/01-12/02/2024. Endoscopic evaluation failed to reveal an etiology for abdominal pain. Has had extensive GI workup in the past without definitive diagnosis for patient's symptoms. Abdominal pain can be due to constipation, biliary/pancreatic source or related to diabetic gastroparesis. RECOMMENDATIONS: 1. Agree with IV PPI, pain medications and antiemetics. 2. Miralax 17 grams twice daily (past KUB showed moderate to large amount of stool throughout the colon). 3. MRCP 4. If MRCP is negative, pt can be started on metoclopramide 10 mg 3 times daily before meals for gastroparesis. Procedures Date of Service Date of Service: 01/19/25
--- NOTE | 2025-01-19 08:32 | MHC.CM.PN ---
CM met with Patient at bedside and addressed CERVANTES with her, providing Patient with the original and a copy has been placed on the chart. Patient lives in an apartment with her 36 year old Daughter, uses a cane to assist with mobility and home CPAP,and has a [employer] 16 hours/week. Home/resume said services is Patient's goal and CM has initiated and will follow for dc planning. PCP is Dr. Jenny Salazar, Son/Mario is the HCP, and Patient will need assist with transport to home.
[2025-01-19] MEDS: Gabapentin 300 MG CAPSULE PO ×3 (09:00→22:42)
[2025-01-19] MEDS: Levothyroxine Sodium 112 MCG TABLET PO (09:00)
[2025-01-19] MEDS: PARoxetine HCL 40 MG TABLET PO (09:00)
[2025-01-19] MEDS: Ferrous Sulfate 324 MG TABLET.DR PO (09:00)
[2025-01-19] MEDS: hydrOXYzine HCL 50 MG TABLET PO ×3 (09:00→22:41)
[2025-01-19] MEDS: Metoprolol Succinate ER 50 MG TAB.ER.24H PO (09:00)
[2025-01-19] MEDS: polyethylene glycoL 3350 17 GM POWD.PACK PO ×2 (11:31→23:15)
[2025-01-19] MEDS: ondansetron HCL 4 MG/2 ML VIAL IVPUSH (12:25)
--- NOTE | 2025-01-19 12:28 | P.PNIM_ITS ---
Subjective Subjective Date of Service: 01/19/25 Interval History: ongoing postprandial abd pain Review of Systems Review of Systems: Yes all other systems are reviewed and are negative Physical Exam 2 Vital Signs: Vital Signs: Last Vital Signs Temp 97.5 F 01/19/25 07:58 Pulse 66 01/19/25 07:58 Resp 18 01/19/25 07:58 BP 113/55 L 01/19/25 07:58 Pulse Ox 95 01/19/25 07:58 O2 Del Method Room Air 01/19/25 07:58 BMI result Body Mass Index 40.0 Gen: in no acute distress HEENT: sclera anicteric, moist mucus membranes Neck: supple Lungs: clear to auscultation bilaterally Heart: regular rate and rhythm, no murmurs Abd: soft, epigastric tenderness without rebound, non-distended Ext: no edema Skin: warm/well-perfused Neuro: alert and oriented x3, no focal findings Psych: appropriate affect Objective Data Active Medications Acetaminophen (Acetaminophen 325 Mg Tablet) 650 mg PO Q6H PRN PRN Reason: Pain, Mild 1-3,fever,headache Albuterol Sulfate (Albuterol Sulfate (0.083%) 2.5 Mg/3 Ml Vial.Neb) 2.5 mg INHALE Q6H PRN PRN Reason: shortness of breath or wheezing Atorvastatin Calcium (Atorvastatin Calcium 10 Mg Tablet) 10 mg PO BEDTIME RADHA Calcium Carbonate (Calcium Carbonate 750 Mg Tab.Chew) 750 mg PO Q4H PRN PRN Reason: Heartburn Clonazepam (Clonazepam 0.5 Mg Tablet) 0.5 mg PO TID PRN PRN Reason: anxiety Dextrose (Dextrose 50 % 25 Gm/50 Ml Syringe) 25 gm IVPUSH Q15M PRN; Protocol PRN Reason: per Hypoglycemia Standing Ord. Docusate Sodium (Docusate Sodium 100 Mg Capsule) 100 mg PO BID PRN PRN Reason: Constipation Enoxaparin Sodium (Enoxaparin Sodium 40 Mg/0.4 Ml Syringe) 40 mg SUBCUT Q24H [facility] Last Admin: 01/18/25 17:46 Dose: 40 mg Documented By: MUSTAPHA Ferrous Sulfate (Ferrous Sulfate 324 Mg Tablet.Dr) 324 mg PO DAILY [facility] Last Admin: 01/19/25 09:00 Dose: 324 mg Documented By: RAJESH Fluticasone/Vilanterol (Fluticasone/Vilanterol 200/25 Blst.W.Dev) 1 puff INHALE DAILY [facility] Last Admin: 01/19/25 08:06 Dose: Not Given Documented By: IRLANDA Non-Admin Reason: pharmacy called for med Gabapentin (Gabapentin 300 Mg Capsule) 300 mg PO TID [facility] Last Admin: 01/19/25 09:00 Dose: 300 mg Documented By: RAJESH Glucose (Glucose Gel 15 Gm Gel..Gram.) 15 gm PO Q15M PRN; Protocol PRN Reason: per Hypoglycemia Standing Ord. Hydrocortisone (Hydrocortisone 2.5 % Rectal Cr 30 Gm Tube) 1 appl ME BID PRN PRN Reason: hemorrhoids Hydroxyzine HCl (Hydroxyzine Hcl 50 Mg Tablet) 50 mg PO TID [facility] Last Admin: 01/19/25 09:00 Dose: 50 mg Documented By: RAJESH Insulin Human Lispro (Insulin Lispro 100 Unit/Ml 3 Ml Vial) 0 unit SUBCUT QIDACHS [facility]; Protocol Last Admin: 01/19/25 07:40 Dose: Not Given Documented By: RAJESH Non-Admin Reason: No Insulin Coverage Levothyroxine Sodium (Levothyroxine Sodium 112 Mcg Tablet) 112 mcg PO DAILY@0600 [facility] Last Admin: 01/19/25 09:00 Dose: 112 mcg Documented By: RAJESH Loperamide HCl (Loperamide Hcl 2 Mg Capsule) 2 mg PO Q6H PRN PRN Reason: loose stool Magnesium Hydroxide (Milk Of Magnesia 30 Ml Oral.Susp) 30 ml PO DAILY PRN PRN Reason: Constipation Magnesium Oxide (Magnesium Oxide 400 Mg Tablet) 400 mg PO BEDTIME [facility] Meclizine HCl (Meclizine Hcl 25 Mg Tablet) 25 mg PO DAILY PRN PRN Reason: dizziness Melatonin (Melatonin 3 Mg Tablet) 6 mg PO BEDTIME PRN PRN Reason: Insomnia Metoprolol Succinate (Metoprolol Succinate Er 50 Mg Tab.Er.24h) 50 mg PO DAILY [facility]; Protocol Last Admin: 01/19/25 09:00 Dose: 50 mg Documented By: RAJESH Morphine Sulfate (Morphine Sulfate 2 Mg/Ml Cartridge) 2 mg IVPUSH Q4H PRN; Protocol PRN Reason: Pain, Severe (Pain Scale 7-10) Last Admin: 01/19/25 04:21 Dose: 2 mg Documented By: FE Nystatin (Nystatin Powder 15 Gm Bottle) 1 appl TOPICAL TID [facility]; Protocol Ondansetron HCl (Ondansetron Hcl 4 Mg/2 Ml Vial) 4 mg IVPUSH Q8H PRN PRN Reason: Nausea and Vomiting Pantoprazole Sodium (Pantoprazole Sodium 40 Mg/10 Ml Vial) 40 mg IVPUSH BID@0630,1630 [facility] Last Admin: 01/19/25 04:22 Dose: 40 mg Documented By: FE Paroxetine HCl (Paroxetine Hcl 40 Mg Tablet) 40 mg PO DAILY [facility] Last Admin: 01/19/25 09:00 Dose: 40 mg Documented By: RAJESH Polyethylene Glycol (Polyethylene Glycol 3350 17 Gm Powd.Pack) 17 gm PO BID [facility] Last Admin: 01/19/25 11:31 Dose: 17 gm Documented By: RAJESH Sodium Chloride (0.9 % Sodium Chloride Flush 3 Ml Syringe) 3 ml IVFLUSH QSHIFT [facility] Last Admin: 01/19/25 07:39 Dose: 3 ml Documented By: RAJESH Trazodone HCl (Trazodone Hcl 50 Mg Tablet) 150 mg PO BEDTIME [facility] Vitamin D (Cholecalciferol (Vitamin D3) 25 Mcg Tablet) 50 mcg PO BEDTIME [facility] Labs 01/19/25 06:39 01/19/25 06:39 Labs: Laboratory Results - last 24 hr 01/18/25 01/19/25 01/19/25 20:49 06:39 07:29 MCV 80.4 MCH 23.8 L MCHC 29.6 L RDW 17.2 H Plt Count 171 D MPV 11.4 Absolute Nucleated RBC 0.000 Nucleated RBC % (auto) 0.0 Anion Gap 11 L Estim Creat Clear Calc 118.7 Estimated GFR > 60 POC Glucose 177 H 95 Random Glucose 93 Calcium 8.6 D Assessment and Plan (1) Intractable vomiting: Status: Acute Plan d2 for 59yo F with HFpEF, DM2, HTN, HLD, hypothyroidism, GERD, esophagitis, gastritis, asthma, MARY on CPAP, and mood disorder presenting with nausea, vomiting, and postprandial abd pain x4d intractable N/V/abd pain - recent EGD with esophagitis + gastritis - continue prn ondansetron, IV fluids, IV PPI - GI consulted; plan MRCP; if negative consider standing metoclopramide as pt had positive GES in 2021 - clear liquid diet, advance as tolerated leukocytosis - reactive; resolved HTN chronic HFpEF - continue metoprolol succinate DM2 - basal-bolus insulin asthma not in acute exacerbation - continue Breo, prn albuterol hypothyroidism - continue LT4 HLD - statin MARY - CPAP at night morbid obesity - diet/exercise counseling mood disorder - trazodone, paroxetine VTE ppx - enoxaparin dispo - eventual home In my clinical judgment, the patient requires continued inpatient hospitalization for the following reasons: GI workup, intractable N/V/abd pain Total time managing care of this patient today: 35 minutes. Quality Stroke Does the patient have a stroke diagnosis?: No VTE Prior VTE?: No VTE Risk Level:: Medical - moderate - high VTE Device Contraindication: Treatment Not Indicated VTE Drug Contraindication: N/A - Med Ordered
[2025-01-19 12:37] LABS: Glucose, Whole Blood 105 mg/dL (60-115)
[2025-01-19] MEDS: Nystatin Powder 15 GM BOTTLE 1 APPL TOPICAL ×3 (13:50→23:15)
[2025-01-19 16:45] LABS: Glucose, Whole Blood 102 mg/dL (60-115)
[2025-01-19] MEDS: Enoxaparin Sodium 40 MG/0.4 ML SYRINGE SUBCUT (17:09)
[2025-01-19 20:33] LABS: Glucose, Whole Blood 91 mg/dL (60-115)
[2025-01-19] MEDS: Cholecalciferol (Vitamin D3) 25 MCG TABLET 50 MCG PO (22:41)
[2025-01-19] MEDS: traZODone HCL 50 MG TABLET 150 MG PO (22:41)
[2025-01-19] MEDS: Magnesium Oxide 400 MG TABLET PO (22:42)
[2025-01-19] MEDS: Atorvastatin Calcium 10 MG TABLET PO (22:42)
[2025-01-20] VITALS (9 sets, daily range): BP systolic 100–136; BP diastolic 53–69; PULSE 55–72; RESP 16–18; TEMP 36–36.4; O2SAT 91–96
[2025-01-20] MEDS: Morphine Sulfate 2 MG/ML CARTRIDGE IVPUSH ×4 (01:22→22:13)
[2025-01-20] MEDS: ondansetron HCL 4 MG/2 ML VIAL IVPUSH ×2 (01:24→08:26)
[2025-01-20] MEDS: 0.9 % Sodium Chloride Flush 3 ML SYRINGE IVFLUSH ×4 (01:25→22:17)
[2025-01-20] MEDS: Pantoprazole Sodium 40 MG/10 ML VIAL IVPUSH ×2 (05:52→16:42)
[2025-01-20] MEDS: Levothyroxine Sodium 112 MCG TABLET PO (05:53)
[2025-01-20 07:21] LABS: Glucose, Whole Blood 100 mg/dL (60-115)
[2025-01-20] MEDS: Fluticasone/Vilanterol 200/25 BLST.W.DEV 1 PUFF INHALE (07:41)
[2025-01-20] MEDS: Metoprolol Succinate ER 50 MG TAB.ER.24H PO (08:31)
[2025-01-20] MEDS: clonazePAM 0.5 MG TABLET PO (08:31)
[2025-01-20] MEDS: polyethylene glycoL 3350 17 GM POWD.PACK PO ×2 (08:31→22:10)
[2025-01-20] MEDS: Ferrous Sulfate 324 MG TABLET.DR PO (08:31)
[2025-01-20] MEDS: PARoxetine HCL 40 MG TABLET PO (08:31)
[2025-01-20] MEDS: Gabapentin 300 MG CAPSULE PO ×3 (08:31→22:13)
[2025-01-20] MEDS: Nystatin Powder 15 GM BOTTLE 1 APPL TOPICAL ×3 (08:31→22:16)
[2025-01-20] MEDS: hydrOXYzine HCL 50 MG TABLET PO ×3 (08:31→22:12)
--- NOTE | 2025-01-20 09:29 | P.PNIM_ITS ---
Subjective Subjective Date of Service: 01/20/25 Interval History: c/o nausea, epigastric/RUQ pain not vomiting tolerating liquids, wishes to try solids Review of Systems Review of Systems: Yes all other systems are reviewed and are negative Physical Exam 2 Vital Signs: Vital Signs: Last Vital Signs Temp 96.8 F 01/20/25 07:23 Pulse 59 01/20/25 07:43 Resp 18 01/20/25 07:43 BP 119/61 01/20/25 07:23 Pulse Ox 94 01/20/25 07:23 O2 Del Method Room Air 01/20/25 07:23 BMI result Body Mass Index 40.0 Gen: in no acute distress HEENT: sclera anicteric, moist mucus membranes Neck: supple Lungs: clear to auscultation bilaterally Heart: regular rate and rhythm, no murmurs Abd: soft, epigastric tenderness without rebound, non-distended, obese Ext: no edema Skin: warm/well-perfused Neuro: alert and oriented x3, no focal findings Psych: appropriate affect Objective Data Active Medications Acetaminophen (Acetaminophen 325 Mg Tablet) 650 mg PO Q6H PRN PRN Reason: Pain, Mild 1-3,fever,headache Albuterol Sulfate (Albuterol Sulfate (0.083%) 2.5 Mg/3 Ml Vial.Neb) 2.5 mg INHALE Q6H PRN PRN Reason: shortness of breath or wheezing Atorvastatin Calcium (Atorvastatin Calcium 10 Mg Tablet) 10 mg PO BEDTIME [facility] Last Admin: 01/19/25 22:42 Dose: 10 mg Documented By: ISHAN Calcium Carbonate (Calcium Carbonate 750 Mg Tab.Chew) 750 mg PO Q4H PRN PRN Reason: Heartburn Clonazepam (Clonazepam 0.5 Mg Tablet) 0.5 mg PO TID PRN PRN Reason: anxiety Last Admin: 01/20/25 08:31 Dose: 0.5 mg Documented By: CONNIE Dextrose (Dextrose 50 % 25 Gm/50 Ml Syringe) 25 gm IVPUSH Q15M PRN; Protocol PRN Reason: per Hypoglycemia Standing Ord. Docusate Sodium (Docusate Sodium 100 Mg Capsule) 100 mg PO BID PRN PRN Reason: Constipation Enoxaparin Sodium (Enoxaparin Sodium 40 Mg/0.4 Ml Syringe) 40 mg SUBCUT Q24H [facility] Last Admin: 01/19/25 17:09 Dose: 40 mg Documented By: RAJESH Ferrous Sulfate (Ferrous Sulfate 324 Mg Tablet.) 324 mg PO DAILY [facility] Last Admin: 01/20/25 08:31 Dose: 324 mg Documented By: CONNIE Fluticasone/Vilanterol (Fluticasone/Vilanterol 200/25 Blst.W.Dev) 1 puff INHALE DAILY [facility] Last Admin: 01/20/25 07:41 Dose: 1 puff Documented By: JESSICA Gabapentin (Gabapentin 300 Mg Capsule) 300 mg PO TID [facility] Last Admin: 01/20/25 08:31 Dose: 300 mg Documented By: CONNIE Glucose (Glucose Gel 15 Gm Gel..Gram.) 15 gm PO Q15M PRN; Protocol PRN Reason: per Hypoglycemia Standing Ord. Hydrocortisone (Hydrocortisone 2.5 % Rectal Cr 30 Gm Tube) [address] BID PRN PRN Reason: hemorrhoids Hydroxyzine HCl (Hydroxyzine Hcl 50 Mg Tablet) 50 mg PO TID [facility] Last Admin: 01/20/25 08:31 Dose: 50 mg Documented By: CONNIE Insulin Human Lispro (Insulin Lispro 100 Unit/Ml 3 Ml Vial) 0 unit SUBCUT QIDACHS [facility]; Protocol Last Admin: 01/20/25 07:44 Dose: Not Given Documented By: CONNIE Non-Admin Reason: No Insulin Coverage Levothyroxine Sodium (Levothyroxine Sodium 112 Mcg Tablet) 112 mcg PO DAILY@0600 [facility] Last Admin: 01/20/25 05:53 Dose: 112 mcg Documented By: ISHAN Loperamide HCl (Loperamide Hcl 2 Mg Capsule) 2 mg PO Q6H PRN PRN Reason: loose stool Magnesium Hydroxide (Milk Of Magnesia 30 Ml Oral.Susp) 30 ml PO DAILY PRN PRN Reason: Constipation Magnesium Oxide (Magnesium Oxide 400 Mg Tablet) 400 mg PO BEDTIME [facility] Last Admin: 01/19/25 22:42 Dose: 400 mg Documented By: ISHAN Meclizine HCl (Meclizine Hcl 25 Mg Tablet) 25 mg PO DAILY PRN PRN Reason: dizziness Melatonin (Melatonin 3 Mg Tablet) 6 mg PO BEDTIME PRN PRN Reason: Insomnia Metoprolol Succinate (Metoprolol Succinate Er 50 Mg Tab.Er.24h) 50 mg PO DAILY [facility]; Protocol Last Admin: 01/20/25 08:31 Dose: 50 mg Documented By: CONNIE Morphine Sulfate (Morphine Sulfate 2 Mg/Ml Cartridge) 2 mg IVPUSH Q4H PRN; Protocol PRN Reason: Pain, Severe (Pain Scale 7-10) Last Admin: 01/20/25 08:26 Dose: 2 mg Documented By: CONNIE Nystatin (Nystatin Powder 15 Gm Bottle) 1 appl TOPICAL TID [facility]; Protocol Last Admin: 01/20/25 08:31 Dose: 1 appl Documented By: CONNIE Ondansetron HCl (Ondansetron Hcl 4 Mg/2 Ml Vial) 4 mg IVPUSH Q8H PRN PRN Reason: Nausea and Vomiting Last Admin: 01/20/25 08:26 Dose: 4 mg Documented By: CONNIE Pantoprazole Sodium (Pantoprazole Sodium 40 Mg/10 Ml Vial) 40 mg IVPUSH BID@0630,1630 [facility] Last Admin: 01/20/25 05:52 Dose: 40 mg Documented By: ISHAN Paroxetine HCl (Paroxetine Hcl 40 Mg Tablet) 40 mg PO DAILY [facility] Last Admin: 01/20/25 08:31 Dose: 40 mg Documented By: CONNIE Polyethylene Glycol (Polyethylene Glycol 3350 17 Gm Powd.Pack) 17 gm PO BID [facility] Last Admin: 01/20/25 08:31 Dose: 17 gm Documented By: CONNIE Sodium Chloride (0.9 % Sodium Chloride Flush 3 Ml Syringe) [facility] Last Admin: 01/20/25 08:30 Dose: 3 ml Documented By: CONNIE Trazodone HCl (Trazodone Hcl 50 Mg Tablet) 150 mg PO BEDTIME [facility] Last Admin: 01/19/25 22:41 Dose: 150 mg Documented By: ISHAN Vitamin D (Cholecalciferol (Vitamin D3) 25 Mcg Tablet) 50 mcg PO BEDTIME [facility] Last Admin: 01/19/25 22:41 Dose: 50 mcg Documented By: ISHAN Labs 01/19/25 06:39 01/19/25 06:39 Labs: Laboratory Results - last 24 hr 01/19/25 01/19/25 01/19/25 12:33 16:34 20:29 POC Glucose 105 102 91 01/20/25 07:06 POC Glucose 100 Assessment and Plan (1) Intractable vomiting: Status: Acute Plan d3 for 59yo F with HFpEF, DM2, HTN, HLD, hypothyroidism, GERD, esophagitis, gastritis, asthma, MARY on CPAP, and mood disorder presenting with nausea, vomiting, and postprandial abd pain x4d intractable N/V/abd pain - recent EGD 09/16/23 with esophagitis - continue prn ondansetron, IV fluids, IV PPI - GI consulted; MRCP pending; if negative consider standing metoclopramide as pt had positive GES in 2021 - advance to solids as tolerated leukocytosis - reactive; resolved HTN chronic HFpEF - continue metoprolol succinate DM2 - basal-bolus insulin asthma not in acute exacerbation - continue Breo, prn albuterol hypothyroidism - continue LT4 HLD - statin MARY - CPAP at night morbid obesity - diet/exercise counseling mood disorder - trazodone, paroxetine VTE ppx - enoxaparin dispo - eventual home In my clinical judgment, the patient requires continued inpatient hospitalization for the following reasons: GI workup, intractable N/V/abd pain Total time managing care of this patient today: 35 minutes. Quality Stroke Does the patient have a stroke diagnosis?: No VTE Prior VTE?: No VTE Risk Level:: Medical - moderate - high VTE Device Contraindication: Treatment Not Indicated VTE Drug Contraindication: N/A - Med Ordered
[2025-01-20 11:31] LABS: Glucose, Whole Blood 161 mg/dL (60-115)
[2025-01-20] MEDS: Insulin Lispro 100 UNIT/ML 3 ML VIAL SUBCUT ×2 (11:47→22:12)
[2025-01-20] MEDS: Metoclopramide HCl 5 MG TABLET PO ×2 (11:52→16:42)
[2025-01-20 16:24] LABS: Glucose, Whole Blood 100 mg/dL (60-115)
[2025-01-20] MEDS: Enoxaparin Sodium 40 MG/0.4 ML SYRINGE SUBCUT (16:45)
[2025-01-20 20:08] LABS: Glucose, Whole Blood 187 mg/dL (60-115)
[2025-01-20] MEDS: Atorvastatin Calcium 10 MG TABLET PO (22:11)
[2025-01-20] MEDS: Cholecalciferol (Vitamin D3) 25 MCG TABLET 50 MCG PO (22:11)
[2025-01-20] MEDS: traZODone HCL 50 MG TABLET 150 MG PO (22:11)
[2025-01-20] MEDS: Magnesium Oxide 400 MG TABLET PO (22:12)
[2025-01-21] VITALS (8 sets, daily range): BP systolic 107–137; BP diastolic 56–63; PULSE 60–83; RESP 16–18; TEMP 36–36.9; O2SAT 93–96
[2025-01-21] MEDS: Levothyroxine Sodium 112 MCG TABLET PO (05:34)
[2025-01-21] MEDS: Pantoprazole Sodium 40 MG/10 ML VIAL IVPUSH ×2 (05:34→16:58)
[2025-01-21] MEDS: Morphine Sulfate 2 MG/ML CARTRIDGE IVPUSH ×4 (05:34→21:51)
[2025-01-21 07:25] LABS: Glucose, Whole Blood 142 mg/dL (60-115)
[2025-01-21] MEDS: Metoclopramide HCl 5 MG TABLET PO (07:46)
[2025-01-21] MEDS: hydrOXYzine HCL 50 MG TABLET PO ×3 (07:46→20:04)
[2025-01-21] MEDS: Ferrous Sulfate 324 MG TABLET.DR PO (07:47)
[2025-01-21] MEDS: Metoprolol Succinate ER 50 MG TAB.ER.24H PO (07:47)
[2025-01-21] MEDS: polyethylene glycoL 3350 17 GM POWD.PACK PO ×2 (07:47→19:59)
[2025-01-21] MEDS: Gabapentin 300 MG CAPSULE PO ×3 (07:47→20:00)
[2025-01-21] MEDS: PARoxetine HCL 40 MG TABLET PO (07:47)
[2025-01-21] MEDS: clonazePAM 0.5 MG TABLET PO ×2 (07:47→20:00)
[2025-01-21] MEDS: Nystatin Powder 15 GM BOTTLE 1 APPL TOPICAL ×3 (07:48→20:07)
[2025-01-21] MEDS: 0.9 % Sodium Chloride Flush 3 ML SYRINGE IVFLUSH ×2 (07:51→15:07)
[2025-01-21] MEDS: Fluticasone/Vilanterol 200/25 BLST.W.DEV 1 PUFF INHALE (08:25)
--- NOTE | 2025-01-21 10:18 | P.PNIM_ITS ---
Subjective Subjective Date of Service: 01/21/25 Interval History: still having abd pain and nausea; no vomiting Review of Systems Review of Systems: Yes all other systems are reviewed and are negative Physical Exam 2 Vital Signs: Vital Signs: Last Vital Signs Temp 97.0 F 01/21/25 07:17 Pulse 60 01/21/25 08:27 Resp 18 01/21/25 08:27 BP 125/61 01/21/25 07:17 Pulse Ox 94 01/21/25 07:17 O2 Del Method Room Air 01/21/25 07:17 BMI result Body Mass Index 40.0 Gen: in no acute distress HEENT: sclera anicteric, moist mucus membranes Neck: supple Lungs: clear to auscultation bilaterally Heart: regular rate and rhythm, no murmurs Abd: soft, epigastric tenderness without rebound, non-distended, obese Ext: no edema Skin: warm/well-perfused Neuro: alert and oriented x3, no focal findings Psych: appropriate affect Objective Data Active Medications Acetaminophen (Acetaminophen 325 Mg Tablet) 650 mg PO Q6H PRN PRN Reason: Pain, Mild 1-3,fever,headache Albuterol Sulfate (Albuterol Sulfate (0.083%) 2.5 Mg/3 Ml Vial.Neb) 2.5 mg INHALE Q6H PRN PRN Reason: shortness of breath or wheezing Atorvastatin Calcium (Atorvastatin Calcium 10 Mg Tablet) 10 mg PO BEDTIME [facility] Last Admin: 01/20/25 22:11 Dose: 10 mg Documented By: SLY Calcium Carbonate (Calcium Carbonate 750 Mg Tab.Chew) 750 mg PO Q4H PRN PRN Reason: Heartburn Clonazepam (Clonazepam 0.5 Mg Tablet) 0.5 mg PO TID PRN PRN Reason: anxiety Last Admin: 01/21/25 07:47 Dose: 0.5 mg Documented By: DANIEL Dextrose (Dextrose 50 % 25 Gm/50 Ml Syringe) 25 gm IVPUSH Q15M PRN; Protocol PRN Reason: per Hypoglycemia Standing Ord. Docusate Sodium (Docusate Sodium 100 Mg Capsule) 100 mg PO BID PRN PRN Reason: Constipation Enoxaparin Sodium (Enoxaparin Sodium 40 Mg/0.4 Ml Syringe) 40 mg SUBCUT Q24H [facility] Last Admin: 01/20/25 16:45 Dose: 40 mg Documented By: AKILA Ferrous Sulfate (Ferrous Sulfate 324 Mg Tablet.Dr) 324 mg PO DAILY [facility] Last Admin: 01/21/25 07:47 Dose: 324 mg Documented By: DANIEL Fluticasone/Vilanterol (Fluticasone/Vilanterol 200/25 Blst.W.Dev) 1 puff INHALE DAILY [facility] Last Admin: 01/21/25 08:25 Dose: 1 puff Documented By: FRANCINE Gabapentin (Gabapentin 300 Mg Capsule) 300 mg PO TID [facility] Last Admin: 01/21/25 07:47 Dose: 300 mg Documented By: DANIEL Glucose (Glucose Gel 15 Gm Gel..Gram.) 15 gm PO Q15M PRN; Protocol PRN Reason: per Hypoglycemia Standing Ord. Hydrocortisone (Hydrocortisone 2.5 % Rectal Cr 30 Gm Tube) 1 appl [place] BID PRN PRN Reason: hemorrhoids Hydroxyzine HCl (Hydroxyzine Hcl 50 Mg Tablet) 50 mg PO TID [facility] Last Admin: 01/21/25 07:46 Dose: 50 mg Documented By: DANIEL Insulin Human Lispro (Insulin Lispro 100 Unit/Ml 3 Ml Vial) 0 unit SUBCUT QIDACHS [facility]; Protocol Last Admin: 01/21/25 07:36 Dose: Not Given Documented By: DANIEL Non-Admin Reason: No Insulin Coverage Levothyroxine Sodium (Levothyroxine Sodium 112 Mcg Tablet) 112 mcg PO DAILY@0600 [facility] Last Admin: 01/21/25 05:34 Dose: 112 mcg Documented By: SLY Loperamide HCl (Loperamide Hcl 2 Mg Capsule) 2 mg PO Q6H PRN PRN Reason: loose stool Magnesium Hydroxide (Milk Of Magnesia 30 Ml Oral.Susp) 30 ml PO DAILY PRN PRN Reason: Constipation Magnesium Oxide (Magnesium Oxide 400 Mg Tablet) 400 mg PO BEDTIME [facility] Last Admin: 01/20/25 22:12 Dose: 400 mg Documented By: SLY Meclizine HCl (Meclizine Hcl 25 Mg Tablet) 25 mg PO DAILY PRN PRN Reason: dizziness Melatonin (Melatonin 3 Mg Tablet) 6 mg PO BEDTIME PRN PRN Reason: Insomnia Metoclopramide HCl (Metoclopramide Hcl 10 Mg Tablet) 10 mg PO TIDAC [facility] Metoprolol Succinate (Metoprolol Succinate Er 50 Mg Tab.Er.24h) 50 mg PO DAILY [facility]; Protocol Last Admin: 01/21/25 07:47 Dose: 50 mg Documented By: DANIEL Morphine Sulfate (Morphine Sulfate 2 Mg/Ml Cartridge) 2 mg IVPUSH Q4H PRN; Protocol PRN Reason: Pain, Severe (Pain Scale 7-10) Last Admin: 01/21/25 05:34 Dose: 2 mg Documented By: SLY Nystatin (Nystatin Powder 15 Gm Bottle) 1 appl TOPICAL TID [facility]; Protocol Last Admin: 01/21/25 07:48 Dose: 1 appl Documented By: DANIEL Ondansetron HCl (Ondansetron Hcl 4 Mg/2 Ml Vial) 4 mg IVPUSH Q8H PRN PRN Reason: Nausea and Vomiting Last Admin: 01/20/25 08:26 Dose: 4 mg Documented By: CONNIE Pantoprazole Sodium (Pantoprazole Sodium 40 Mg/10 Ml Vial) 40 mg IVPUSH BID@0630,1630 [facility] Last Admin: 01/21/25 05:34 Dose: 40 mg Documented By: SLY Paroxetine HCl (Paroxetine Hcl 40 Mg Tablet) 40 mg PO DAILY [facility] Last Admin: 01/21/25 07:47 Dose: 40 mg Documented By: DANIEL Polyethylene Glycol (Polyethylene Glycol 3350 17 Gm Powd.Pack) 17 gm PO BID [facility] Last Admin: 01/21/25 07:47 Dose: 17 gm Documented By: DANIEL Sodium Chloride (0.9 % Sodium Chloride Flush 3 Ml Syringe) 3 ml IVFLUSH QSHIFT [facility] Last Admin: 01/21/25 07:51 Dose: 3 ml Documented By: DANIEL Trazodone HCl (Trazodone Hcl 50 Mg Tablet) 150 mg PO BEDTIME [facility] Last Admin: 01/20/25 22:11 Dose: 150 mg Documented By: SLY Vitamin D (Cholecalciferol (Vitamin D3) 25 Mcg Tablet) 50 mcg PO BEDTIME [facility] Last Admin: 01/20/25 22:11 Dose: 50 mcg Documented By: SLY Labs 01/19/25 06:39 01/19/25 06:39 Labs: Laboratory Results - last 24 hr 01/20/25 01/20/25 01/20/25 11:20 16:21 20:03 POC Glucose 161 H 100 187 H 01/21/25 07:19 POC Glucose 142 H MRCP 01/19/25 Findings: No biliary stones or dilatation. Common bile duct 4.1 mm diameter. The gallbladder is normal. The solid organs are within normal limits. IMPRESSION: No biliary pathology. Assessment and Plan (1) Intractable vomiting: Status: Acute Plan d4 for 59yo F with HFpEF, DM2, HTN, HLD, hypothyroidism, GERD, esophagitis, gastritis, asthma, MARY on CPAP, and mood disorder presenting with nausea, vomiting, and postprandial abd pain x4d intractable N/V/abd pain - recent EGD 09/16/23 with esophagitis - continue prn ondansetron, IV PPI - GI consulted; MRCP negative; will increase metoclopramide to 10 mg tidac as she had delayed gastric emptying on [place] study in 2021 - advanced to solids leukocytosis - reactive; resolved HTN chronic HFpEF - continue metoprolol succinate DM2 - basal-bolus insulin asthma not in acute exacerbation - continue Breo, prn albuterol hypothyroidism - continue LT4 HLD - statin MARY - CPAP at night morbid obesity - diet/exercise counseling mood disorder - trazodone, paroxetine VTE ppx - enoxaparin dispo - eventual home In my clinical judgment, the patient requires continued inpatient hospitalization for the following reasons: GI workup, intractable N/V/abd pain Total time managing care of this patient today: 35 minutes. Quality Stroke Does the patient have a stroke diagnosis?: No VTE Prior VTE?: No VTE Risk Level:: Medical - moderate - high VTE Device Contraindication: Treatment Not Indicated VTE Drug Contraindication: N/A - Med Ordered
[2025-01-21 11:13] LABS: Glucose, Whole Blood 131 mg/dL (60-115)
[2025-01-21] MEDS: Metoclopramide HCl 10 MG TABLET PO ×2 (12:43→16:59)
[2025-01-21] MEDS: Acetaminophen 325 MG TABLET 650 MG PO ×2 (12:45→19:08)
[2025-01-21 16:09] LABS: Glucose, Whole Blood 129 mg/dL (60-115)
[2025-01-21] MEDS: Enoxaparin Sodium 40 MG/0.4 ML SYRINGE SUBCUT (16:58)
[2025-01-21] MEDS: Atorvastatin Calcium 10 MG TABLET PO (20:00)
[2025-01-21] MEDS: Cholecalciferol (Vitamin D3) 25 MCG TABLET 50 MCG PO (20:00)
[2025-01-21] MEDS: Magnesium Oxide 400 MG TABLET PO (20:00)
[2025-01-21] MEDS: traZODone HCL 50 MG TABLET 150 MG PO (20:00)
[2025-01-21 20:20] LABS: Glucose, Whole Blood 164 mg/dL (60-115)
[2025-01-21] MEDS: Insulin Lispro 100 UNIT/ML 3 ML VIAL SUBCUT (21:50)
[2025-01-22] VITALS: BP 111/62; PULSE 75; RESP 18; TEMP 36.3; O2SAT 95
[2025-01-22 03:40] VITALS: BP 113/63; PULSE 63; RESP 18; TEMP 36.1; O2SAT 95
[2025-01-22] MEDS: Morphine Sulfate 2 MG/ML CARTRIDGE IVPUSH ×2 (05:49→11:20)
[2025-01-22] MEDS: Pantoprazole Sodium 40 MG/10 ML VIAL IVPUSH (05:49)
[2025-01-22] MEDS: Levothyroxine Sodium 112 MCG TABLET PO (05:49)
[2025-01-22 06:59] VITALS: BP 134/60; PULSE 63; RESP 16; TEMP 36.9; O2SAT 93
[2025-01-22 07:13] LABS: Glucose, Whole Blood 96 mg/dL (60-115)
[2025-01-22] MEDS: 0.9 % Sodium Chloride Flush 3 ML SYRINGE IVFLUSH (07:29)
[2025-01-22] MEDS: Metoclopramide HCl 10 MG TABLET PO ×2 (07:29→11:21)
[2025-01-22] MEDS: polyethylene glycoL 3350 17 GM POWD.PACK PO (07:29)
[2025-01-22] MEDS: Ferrous Sulfate 324 MG TABLET.DR PO (07:29)
[2025-01-22] MEDS: hydrOXYzine HCL 50 MG TABLET PO (07:29)
[2025-01-22] MEDS: Metoprolol Succinate ER 50 MG TAB.ER.24H PO (07:29)
[2025-01-22] MEDS: PARoxetine HCL 40 MG TABLET PO (07:29)
[2025-01-22] MEDS: Gabapentin 300 MG CAPSULE PO (07:29)
[2025-01-22] MEDS: Nystatin Powder 15 GM BOTTLE 1 APPL TOPICAL (07:35)
[2025-01-22] MEDS: Fluticasone/Vilanterol 200/25 BLST.W.DEV 1 PUFF INHALE (07:54)
[2025-01-22 07:55] VITALS: PULSE 72; RESP 20; O2SAT 96
[2025-01-22] MEDS: Lactulose 20 GM/30 ML SOLUTION 40 GM PO (09:57)
[2025-01-22] MEDS: bisacodyL 5 MG TABLET.DR 10 MG PO (09:57)
[2025-01-22 11:02] LABS: Glucose, Whole Blood 157 mg/dL (60-115)
[2025-01-22] MEDS: Insulin Lispro 100 UNIT/ML 3 ML VIAL SUBCUT (11:20)
[2025-01-22 11:36] VITALS: BP 140/68; PULSE 65; RESP 16; TEMP 36.3; O2SAT 95
--- NOTE | 2025-01-22 12:47 | P.DS_ITS ---
DS: Providers Provider Date of Service: 01/22/25 Date of admission: 01/18/25 16:46 Date of discharge: 01/22/25 Primary care physician: Jenny Bell MD Consults: 01/18/25 16:51 Consult to Gastroenterology Routine Consulting Provider: Olimpia Soto Reason for consultation: Intractable N/V; extensive GI workup in past, has followed with Elio 01/20/25 20:43 Consult to Wound Care Routine Reason for consultation: redness/fungal under breasts DS: Diagnosis Discharge Diagnosis (1) Intractable vomiting: Status: Acute (2) Constipation by delayed colonic transit: Status: Acute (3) Esophagitis: Status: Acute (4) Abdominal pain: Status: Acute (5) Morbid obesity: Status: Acute DS: Summary Hospital Course Hospital Course: From the history and physical by the admitting hospitalist, KAYLA Agrawal, 01/18/25: Pt is a 59-year-old female with a PMH significant for?HFpEF, insulin- dependent type 2 diabetes, HTN, HLD, hypothyroidism, GERD, esophagitis/gastritis, asthma, MARY on CPAP, and mood disorder who presents to the ED with?intractable nausea, nonbloody vomiting, and abdominal pain x4 days. N/V primarily postprandial occurring 20 minutes after pt eats or drinks. Describes abdominal pain as a burning sensation, located centrally and substernally, radiating to sites. Denies diarrhea. Chills but no fever. Also experiencing some SOB but no cough. Pt has been admitted to the hospital for similar symptoms in the past, including during 09/2023 and more recently from 12/01-12/02/2024. Has had extensive GI workup in the past without definitive diagnosis for patient's symptoms. After last discharge underwent outpatient endoscopy and colonoscopy on 01/02/[address] Ballard. EGD found gastritis, mild esophagitis, and dysmotility. Colonoscopy found internal hemorrhoids and dysmotility. In the ED pt was hypertensive as high as 194/93, vitals otherwise stable and WNL. Labs were grossly unremarkable and around baseline for pt. Chronic leukocytosis leukocytosis of 16.2. Stable H&H. No significant electrolyte abnormalities. Renal function WNL. Hepatic function WNL. Lipase WNL. UA negative for UTI. Pt was treated in the ED with IVF, Protonix, morphine, and ondansetron. Pt admitted to the hospital under observation for treatment and further evaluation of intractable nausea, vomiting, and abdominal pain. 59yo F with HFpEF, DM2, HTN, HLD, hypothyroidism, GERD, esophagitis, gastritis, asthma, MARY on CPAP, and mood disorder presenting with nausea, vomiting, and postprandial abd pain x4d. She was admitted to the medical-surgical unit with Gastroenterology consultation. She was given IV PPI and prn ondansetron. An EGD 09/16/23 had shown esophagitis. An MRCP was negative for biliary pathology. Started metoclopramide as she had delayed gastric emptying on NM study in 2021. She continued to have abdominal pain but was able to tolerate a diet without vomiting. She was given laxatives for constipation. 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 Time Attestation Discharge Coordination Time (in mins): 35 Quality: Safe Use of Opioids Does Pt have an Active Cancer Diagnosis on the Problem List?: No Quality: Stroke Does the patient have a stroke diagnosis?: No Physical Exam Vital Signs: Vital Signs: Last Vital Signs Temp 97.4 F 01/22/25 11:36 Pulse 65 01/22/25 11:36 Resp 16 01/22/25 11:36 BP 140/68 H 01/22/25 11:36 Pulse Ox 95 01/22/25 11:36 O2 Del Method Room Air 01/22/25 11:36 BMI result Body Mass Index 40.0 Gen: in no acute distress HEENT: sclera anicteric, moist mucus membranes Neck: supple Lungs: clear to auscultation bilaterally Heart: regular rate and rhythm, no murmurs Abd: soft, epigastric tenderness without rebound, non-distended, obese Ext: no edema Skin: warm/well-perfused Neuro: alert and oriented x3, no focal findings Psych: appropriate affect DS: Data Data Completed and Pending Completed studies during hospitalization [Text1]: Laboratory Results WBC 9.8 X10*3/uL (4.8-10.8) 01/19/25 06:39 RBC 4.79 X10*6/uL (4.20-5.50) 01/19/25 06:39 Hgb 11.4 g/dl (12.0-16.0) L 01/19/25 06:39 Hct 38.5 % (37.0-47.0) 01/19/25 06:39 MCV 80.4 fL (80.0-98.0) 01/19/25 06:39 MCH 23.8 pg (27.0-33.0) L 01/19/25 06:39 MCHC 29.6 g/dl (31.0-35.0) L 01/19/25 06:39 RDW 17.2 % (11.0-16.0) H 01/19/25 06:39 Plt Count 171 X10*3/uL (160-400) D 01/19/25 06:39 MPV 11.4 fL (9.4-12.3) 01/19/25 06:39 Immature Gran % (Auto) 0.6 % (0.0-0.4) H 01/18/25 11:25 Neut % (Auto) 74.4 % (45-73) H 01/18/25 11:25 Lymph % (Auto) 18.1 % (20-40) L 01/18/25 11:25 Aurora % (Auto) 4.3 % (2-11) 01/18/25 11:25 Eos % (Auto) 2.2 % (0-4) 01/18/25 11:25 Baso % (Auto) 0.4 % (0-2) 01/18/25 11:25 Lymph # (Auto) 2.9 X10*3/uL (1.2-4.9) 01/18/25 11:25 Aurora # (Auto) 0.7 X10*3/uL (0.1-1.2) 01/18/25 11:25 Eos # (Auto) 0.4 X10*3/uL (0.0-0.4) 01/18/25 11:25 Baso # (Auto) 0.1 X10*3/uL (0.0-0.2) 01/18/25 11:25 Abs Immat Gran (auto) 0.09 X10*3/uL (0.00-0.03) H 01/18/25 11:25 Absolute Neuts (auto) 12.0 x10*3/uL (2.0-8.3) H 01/18/25 11:25 Absolute Nucleated RBC 0.000 X10*3/uL (0.0-0.012) 01/19/25 06:39 Nucleated RBC % (auto) 0.0 /100WBC (0.0-0.2) 01/19/25 06:39 Sodium 139 mmol/L (135-145) 01/19/25 06:39 Potassium 4.0 mmol/L (3.3-5.1) 01/19/25 06:39 Chloride 108 mmol/L (96-108) 01/19/25 06:39 Carbon Dioxide 24 mmol/L (22-29) 01/19/25 06:39 Anion Gap 11 (12-20) L 01/19/25 06:39 BUN 9 mg/dL (9-16) 01/19/25 06:39 Creatinine 0.68 mg/dL (0.5-1.4) 01/19/25 06:39 Estim Creat Clear Calc 118.7 01/19/25 06:39 Estimated GFR > 60 01/19/25 06:39 POC Glucose 157 mg/dL (60-115) H 01/22/25 10:58 Random Glucose 93 mg/dL (60-115) 01/19/25 06:39 Calcium 8.6 mg/dL (8.4-10.2) D 01/19/25 06:39 Total Bilirubin 0.7 mg/dL (0.0-1.0) 01/18/25 11:25 AST 18 U/L (5-31) 01/18/25 11:25 ALT 15 U/L (0-31) 01/18/25 11:25 Alkaline Phosphatase 109 U/L (39-117) 01/18/25 11:25 Total Protein 7.4 g/dL (6.5-8.0) 01/18/25 11:25 Albumin 3.7 g/dL (3.5-5.0) 01/18/25 11:25 Lipase 33 U/L (8-78) 01/18/25 11:25 Urine Color Yellow 01/18/25 11:25 Urine Appearance Clear 01/18/25 11:25 Urine pH 7.5 (5.0-9.0) 01/18/25 11:25 Ur Specific Victor 1.020 (1.005-1.025) 01/18/25 11:25 Urine Protein Trace mg/dL (Neg-Trace) 01/18/25 11:25 Urine Glucose (UA) Negative mg/dL (Negative) 01/18/25 11:25 Urine Ketones Trace mg/dL (Negative) 01/18/25 11:25 Urine Blood Negative (Negative) 01/18/25 11:25 Urine Nitrite Negative (Negative) 01/18/25 11:25 Ur Leukocyte Esterase Trace (Negative) H 01/18/25 11:25 Urine RBC 0-2 /HPF (0-2) 01/18/25 11:25 Urine WBC 0-5 /HPF (0-5) 01/18/25 11:25 Ur Squamous Epith Cells 3-5 /HPF (0-2) 01/18/25 11:25 Urine Bacteria None Seen (None Seen) 01/18/25 11:25 Hyaline Casts 0-2 /LPF (0-2) 01/18/25 11:25 Discharge Plan Discharge Patient Disposition: Home, Self-Care Discharge Diagnosis: esophagitis gastroparesis constipation chronic abdominal pain Referrals: Bunny Ballard MD [Physician] - 2 Weeks Jenny Mendosa MD [Primary Care Provider] - 1 Week Discharge Medications: New polyethylene glycol 3350 17 gram Powder In Packet 17 g PO BID Qty: 60 0RF metoclopramide HCl 10 mg Tablet 10 mg PO TIDAC Qty: 90 0RF oxycodone 5 mg tablet 5 mg PO Q8H PRN (Reason: pain, severe) Qty: 10 0RF Rx Instructions: Partial Fill upon patient request. Continued meclizine 25 mg tablet 25 mg PO DAILY PRN (Reason: dizziness) 90 Days Qty: 90 0RF (DME) ear thermometer Misc See Rx Instructions .Route Qty: 6 0RF Rx Instructions: As directed (DME) BP monitor large See Rx Instructions .Route .MEDSUPPLY Qty: 1 0RF Rx Instructions: As directed (DME) blood pressure monitor Kit See Rx Instructions .Route Qty: 1 0RF Rx Instructions: Use as needed albuterol sulfate 2.5 mg /3 mL (0.083 %) solution for nebulization 2.5 mg inhalation Q6H PRN (Reason: shortness of breath or wheezing) 30 Days Qty: 180 11RF atorvastatin 10 mg tablet 10 mg PO BEDTIME Qty: 90 1RF levothyroxine 112 mcg tablet 112 mcg PO DAILY@0600 Qty: 90 1RF ferrous sulfate 325 mg (65 mg iron) tablet 325 mg PO DAILY 90 Days Qty: 90 1RF (DME) blood pressure test kit-large Kit See Rx Instructions .ROUTE .MEDSUPPLY Qty: 1 0RF Rx Instructions: As directed (DME) recliner See Rx Instructions .Route .MEDSUPPLY Qty: 1 0RF Rx Instructions: As directed fluticasone furoate-vilanterol [Breo Ellipta] 200-25 mcg/dose blister with device 1 inh inhalation DAILY 30 Days Qty: 1 0RF albuterol sulfate [Ventolin HFA] 90 mcg/actuation HFA aerosol inhaler 1 puff PO Q4H PRN (Reason: for wheezing) 30 Days Qty: 54 1RF acetaminophen 650 mg tablet extended release 650 mg PO Q8H PRN (Reason: arthritis) 30 Days Qty: 90 1RF (DME) FreeStyle Test Strip See Rx Instructions .Route Qty: 100 3RF Rx Instructions: Use 1 test strip once a day (DME) pen needle, diabetic [BD Rosario 2nd Gen Pen Needle] 32 gauge x 5/32 needle See Rx Instructions .Route Qty: 100 3RF Rx Instructions: use 2x daily As directed metoprolol succinate 50 mg tablet extended release 24 hr 50 mg PO DAILY 90 Days Qty: 90 1RF ondansetron 4 mg tablet,disintegrating 4 mg PO Q8H PRN (Reason: Nausea) 30 Days Qty: 90 0RF hydrocortisone [Proctosol HC] 2.5 % cream with perineal applicator 1 appl LA BID-QID PRN (Reason: hemorrhoids) Qty: 30 0RF rizatriptan 10 mg tablet 10 mg PO ONCE PRN (Reason: migraine headache) 30 Days Qty: 5 3RF hyoscyamine sulfate 0.125 mg tablet, sublingual 0.125 mg sublingual Q2-4H PRN (Reason: for indigestion) Qty: 60 0RF magnesium oxide 400 mg (241.3 mg magnesium) tablet 400 mg PO BEDTIME 90 Days Qty: 90 1RF docusate sodium [Colace] 100 mg capsule 100 mg PO BID PRN (Reason: Constipation) insulin lispro [Humalog KwikPen Insulin] 100 unit/mL insulin pen 5 unit subcut DAILY@1700 Rx Instructions: with supper cholecalciferol (vitamin D3) 50 mcg (2,000 unit) capsule 50 mcg PO BEDTIME Proctofoam HC 1-1 % foam 1 appl LA QID PRN (Reason: hemorrhoids) Qty: 10 0RF loperamide [Anti-Diarrheal (loperamide)] 2 mg capsule 2 mg PO Q6H PRN (Reason: loose stool) Qty: 16 0RF promethazine [Promethegan] 25 mg suppository 25 mg LA Q6H PRN (Reason: nausea and vomiting) Qty: 20 0RF clonazepam 1 mg tablet 0.5 mg PO TID PRN (Reason: anxiety) Rx Instructions: TAKE 1/2 TABLET BY MOUTH THREE TIMES A DAY NEEDED ANXIETY (REPLACES LORAZEPAM) hydroxyzine HCl 50 mg tablet 50 mg PO TID trazodone 150 mg tablet 150 mg PO BEDTIME paroxetine HCl 40 mg tablet 40 mg PO DAILY insulin glargine [Lantus Solostar U-100 Insulin] 100 unit/mL (3 mL) insulin pen 15 unit subcut QAM Qty: 15 3RF pantoprazole 40 mg tablet,delayed release (DR/EC) 40 mg PO BID@0630,1630 gabapentin 300 mg capsule 300 mg PO TID 30 Days Qty: 90 0RF (DME) nebulizers Kit See Rx Instructions .Route Rx Instructions: As directed (DME) CPAP Machine/Device Device See Rx Instructions .Route Rx Instructions: As directed glucose [Dex4 Glucose] 4 gram tablet,chewable 16 g PO Q15M PRN (Reason: hypoglycemia) Qty: 100 0RF Rx Instructions: until symptoms of low blood sugar are controlled Discharge Orders: Discharge Order (Routine); Ordered 01/22/25 Ordered By: Goran Page Diet: Diabetic diet Activity on Discharge: As tolerated Stand Alone Forms: Patient Portal Discharge page Print Language: Trinidadian Care Plan Goals: relief of pain Health Concerns: esophagitis gastroparesis constipation chronic abdominal pain Plan of Treatment: esophagitis: take pantoprazole 40 mg twice daily gastroparesis: take metoclopramide 10 mg 3x a day with meals constipation: take Miralax 17g twice daily, eat plenty of fiber and drink lots of liquids chronic abdominal pain: follow up with Dr Ballard from [facility] Gastroenterology. use acetaminophen for mild-moderate pain. use oxycodone only for severe pain. Please follow up with your primary care doctor within 1 week. Return to the hospital if you experience recurrent or worsening symptoms. Assessment: See Discharge Summary.
--- NOTE | 2025-01-22 13:17 | MHC.CM.PN ---
Per MD patient medically cleared for dc home self care. Lyft transport.
== END 2025-01-22 13:21 | disposition home or self-care (01) ==
LOC: HO.ED 15:42 → HO.EDOVER 18:51 → HO.IMC 19:12 → HO.EDOVER 01-19 10:32 → HO.S3 01-20 08:24
PROVIDERS: Registered Nurse Emergency; Admitting Provider Student in an Organized Health Care Education/Training Program; Emergency Provider Emergency Medicine; PCP Internal Medicine; Visit Provider Family Medicine
DX: K20.90 Esophagitis, unspecified without bleeding (principal); K59.00 Constipation, unspecified; K31.9 Disease of stomach and duodenum, unspecified; R10.31 Right lower quadrant pain; R11.2 Nausea with vomiting, unspecified; R53.1 Weakness; R42 Dizziness and giddiness; I10 Essential (primary) hypertension; E11.9 Type 2 diabetes mellitus without complications; K29.70 Gastritis, unspecified, without bleeding; J45.909 Unspecified asthma, uncomplicated; E78.5 Hyperlipidemia, unspecified; E03.9 Hypothyroidism, unspecified; D72.829 Elevated white blood cell count, unspecified; F39 Unspecified mood [affective] disorder; Z79.899 Other long term (current) drug therapy; Z79.4 Long term (current) use of insulin
CPT/HCPCS: 36415; 74181; 80048; 80053; 81001; 82947; 83690; 85025; 85027; 94640; 94660; 96361; 96372; 96374; 96375; 96376; 99221; 99285; J1650; J2270; J2405; J2470

== ENCOUNTER 2025-01-18 16:46 | Outpatient (BNV) | payer OTHER, SELFPAY | END 2025-01-19 11:40 | PROVIDERS: Admitting Provider Student in an Organized Health Care Education/Training Program; Emergency Provider Emergency Medicine; PCP Internal Medicine; Visit Provider Specialist | DX: R10.11 Right upper quadrant pain (principal); R11.2 Nausea with vomiting, unspecified | CPT/HCPCS: 74181 ==

== ENCOUNTER → 2025-01-18 16:46 | Outpatient (BNV) | payer OTHER, SELFPAY | PROVIDERS: Admitting Provider Student in an Organized Health Care Education/Training Program; Emergency Provider Emergency Medicine; PCP Internal Medicine; Visit Provider Student in an Organized Health Care Education/Training Program | DX: R11.10 Vomiting, unspecified (principal); K59.01 Slow transit constipation; K20.90 Esophagitis, unspecified without bleeding; R10.31 Right lower quadrant pain; E66.01 Morbid (severe) obesity due to excess calories | CPT/HCPCS: 99222; 99232; 99239 ==

== ENCOUNTER → 2025-01-18 16:46 | Outpatient (BNV) | payer OTHER, SELFPAY | PROVIDERS: Admitting Provider Student in an Organized Health Care Education/Training Program; Emergency Provider Emergency Medicine; PCP Internal Medicine; Visit Provider Internal Medicine Gastroenterology | DX: R11.10 Vomiting, unspecified (principal); K59.01 Slow transit constipation; R10.9 Unspecified abdominal pain | CPT/HCPCS: 99222 ==

== ENCOUNTER 2025-04-05 09:27 | Outpatient (AMB) | payer OTHER, SELFPAY ==
--- NOTE | 2025-04-05 09:53 | MHC.OFFVIS ---
Vital Signs 04/05/25 10:02 Weight 272 lb BP 179/81 H Blood Pressure Location Rt brachial Position Sitting Pulse 101 H Intake Visit Reasons: assess for hemorrhoids Intake Note: Patient referred by Dr. Ballard for evaluation of hemorrhoids. No improvement with HC 2.5% cream. Patient c/o: external hemorrhoids are painful, bleeding. Stockroom Attendant Required: No Accompanied by: Self / Same As Patient Allergies Penicillins Allergy (Severe, Verified 04/05/25 09:59) swelling adhesive tape (ADHESIVE TAPE) Allergy (Intermediate, Verified 04/05/25 09:59) RASH amoxicillin (AMOXICILLIN) Allergy (Intermediate, Verified 04/05/25 09:59) RASH,SWELLING ibuprofen (From Motrin) Allergy (Intermediate, Verified 04/05/25 09:59) Hypertension latex Allergy (Intermediate, Verified 04/05/25 09:59) Rash HPI HPI assess for hemorrhoids: Details: [age] year old female referred for hemorrhoid issues. Speech She says she has had known hemorrhoids for 15 years. However, she says that her pain and swelling have been worsening over the years. She says that she is in almost constant pain now a days. She says there is her hemorrhoids are ?out? all the time. She also says she has bleeding periodically from her hemorrhoids She has other medical problems including back pain, diabetes, morbid obesity, and polyarthropathy. She says she used to be constipated but states that this has now well controlled. [facility] Medical History (Updated 04/05/25 @ 10:33 by Jason Lantigua MD) Hemorrhoids with complication Gastroparesis Essential hypertension Left shoulder pain Type 2 diabetes mellitus Hyperparathyroidism Erosive esophagitis Hypertension Acute diarrhea Pre-op examination Cervical radiculopathy Rash of foot Kiera albicans infection Cervicalgia Environmental allergies Hospital discharge follow-up MARY on CPAP Elevated red blood cell count Screening for hyperlipidemia Chronic pain syndrome Lumbar pain Encounter for annual routine gynecological examination Multiple air fluid levels of small intestine determined by X-ray Abdominal bloating Hypothyroid Sleep apnea Abdominal cramping Edema Anxiety with depression Chronic pain (Unknown) Left knee pain Hypothyroidism Bilateral shoulder pain Hyperlipidemia LDL goal <70 Degeneration, intervertebral disc, cervical Spondylosis of cervical spine at multiple levels without myelopathy Sleep apnea Renal calculi Incontinence Goiter Disc degeneration, lumbar Spondylosis of lumbar region without myelopathy or radiculopathy Arthropathy of facet joint Insomnia LUDY (generalized anxiety disorder) Moderately severe recurrent major depression Chronic pain syndrome Morbid (severe) obesity due to excess calories Fibromyalgia Small bowel motility disorder Chronic idiopathic constipation Asthma Surgical History History of knee replacement procedure of right knee History of hernia surgery Hx of colonoscopy History of esophagogastroduodenoscopy (EGD) History of cholecystectomy Delivery by section History of hysterectomy Family History Father Past heart attack Anxiety Mother MOF (multiple organ failure) Brother HIV (human immunodeficiency virus infection) Sister Ovarian cancer Lupus Bone cancer Uterine cancer Tumor Daughter Guillain-[place] Sister Lupus History of open heart surgery Family/Other Depression FH: mental illness Maternal Aunt Breast cancer Maternal Aunt Tumor Social History Household Members: Children Household Members Other:: Daughter Housing: House Are you a primary palliative care specialist to a significant other at home: No Do you presently have visiting nurse or other home services: Yes Alcohol intake: never Patient Tobacco Use Status: Never used Tobacco e-Cigarette/Vaping Use: Never Used Second Hand Smoke Exposure: No Advance Directives Date on File: 12/08/21 service: No Current occupational status: unemployed and disabled Cognitive needs: Yes Hearing needs: No Vision needs: No Review of Systems Const Denies chills and Denies fever(s) Card Denies chest pain, Denies dyspnea and Reports dyspnea on exertion Resp Denies cough, Denies dyspnea and Reports dyspnea on exertion GI Reports hematochezia, Denies change in bowel habits and Reports constipation Denies hematuria Musc Reports abnormal gait, Reports back pain, Reports arthralgias and Reports limited range of motion Neuro Reports abnormal gait, Denies focal weakness and Denies convulsions Psych Denies depression and Denies mood swings Physical Exam Vital Signs: Last Vital Signs Pulse 101 H 04/05/25 10:02 BP 179/81 H 04/05/25 10:02 Const Other: Morbidly obese General: comfortable and no acute distress Orientation/consciousness: patient oriented x3 Neck Neck: Yes no lymphadenopathy Resp Auscultation: clear to auscultation bilaterally Cardio Rhythm: regular rhythm GI Other: Rectal exam shows a large internal external hemorrhoidal column, prolapsing, appearing to be posterior Palpation (GI): Soft to palpation, nontender and no guarding Neuro General: patient oriented x3 Office Procedures Anoscopy She was in kneeling gabriella-knife position. The anoscope was gently inserted. A full examination of the anal canal was done. She was noted to have this prolapsing internal external hemorrhoidal column posteriorly. There were no other lesions. There was no fissure ulceration. She was tender throughout. There was no bleeding. There was no induration. [id number] Assessment & Plan Assessment & Plan (1) Hemorrhoids with complication: Code(s): K64.8 - Other hemorrhoids Category: Medical Plan: She has a long history of problems with the hemorrhoids with pain, discomfort and bleeding. She has a large hemorrhoidal column, mix of internal external, that appeared to be prolapsing. She wants to proceed with hemorrhoidectomy. I had a long discussion with the about the technique of exam under anesthesia and hemorrhoidectomy. I reviewed the risks including but not limited to bleeding, infections, postop pain, sphincter dysfunction, as well as the benefits and alternatives. She understands and wants to proceed. She understands what to expect postoperatively. Medications: New tramadol 50 mg PO BID PRN 20 tabs 0RF pain Coding Level of Care Code New Pt Level 3 (40069) Diagnoses Hemorrhoids with complication K64.8 CPT Codes Details - CPT: 95297-[id number] ([id number])
[2025-04-05 10:02] VITALS: BP 179/81; PULSE 101
== END 2025-04-05 10:36 | disposition home or self-care (01) ==
LOC: HO.HGS 09:28
PROVIDERS: PCP Internal Medicine; Visit Provider Surgery
DX: K64.8 Other hemorrhoids (principal)
CPT/HCPCS: 46600; 99203

== ENCOUNTER → 2025-04-05 09:27 | Outpatient (BNVA) | payer OTHER, SELFPAY | PROVIDERS: PCP Internal Medicine; Visit Provider Surgery | DX: K64.8 Other hemorrhoids (principal) | CPT/HCPCS: 46600; 99202 ==

== ENCOUNTER 2025-04-26 05:31 | Day surgery (SDC) | payer OTHER, SELFPAY ==
[2025-04-18 12:54] VITALS: BP 141/64; PULSE 62; RESP 16; O2SAT 96; BMI 44.8
--- NOTE | 2025-04-18 13:17 | HO.ANESPROP2 ---
Documented by User: Gina Prince NP 04/18/25 13:37 HPI - Anesthesia Eval Consult details Narrative: 60yo F for EUA,Hemorrhoidectomy, 04/26/25 BMI 45 No recent illness. Multiple nonspecific complaints. Reviewed anesthetic risk - pt verbalized understanding and declined further work up with PCP preop for the following: C/O sneezing and generalized pains, some tingling in both hands and feet No cardiac chest pain, some pain with palpation across bilateral chest No SOB Very limited acitivity IDDM: FBS ~ 100 MARY: CPAP QHS Asthma: Abuterol neb 1 x daily, albuterol inhaler 4 x daily GERD: ppi controls PMFSH Active Problems Active Problems: All Active Problems Rectal bleeding (Acute) Morbid obesity (Acute) Esophagitis (Acute) Gastritis (Acute) Neuralgia (Acute) Migraines (Acute) Tinea pedis (Acute) Encounter for well woman exam with routine gynecological exam (Acute) Constipation by delayed colonic transit (Acute) Uncontrolled type 2 diabetes mellitus with hyperglycemia, with long-term current use of insulin (Acute) Internal hemorrhoids (Acute) Subacromial bursitis of left shoulder joint (Acute) Physical exam (Acute) Polyarthropathy (Acute) Right shoulder pain (Acute) Hypokalemia (Acute) Abdominal pain (Acute) Abdominal wall bulge (Acute) Hypercalcemia (Acute) Urinary incontinence (Acute) Pulmonary edema (Acute) Cervical radiculopathy at C8 (Acute) MARY (obstructive sleep apnea) (Acute) Diabetic gastroparesis (Acute) Arthritis of shoulder region, left (Acute) Leg edema (Acute) Orthopnea (Acute) Nocturnal hypoxemia (Acute) Thoracic back pain (Acute) Flank pain (Acute) Bronchitis (Acute) Pulmonary nodules (Acute) Microcytosis (Chronic) Spondylosis of cervical spine at multiple levels without myelopathy (Acute) Vulvar irritation (Acute) Pelvic pain in female (Acute) Spondylosis of lumbar region without myelopathy or radiculopathy (Acute) Physical deconditioning (Acute) Right sided abdominal pain (Acute) GERD (gastroesophageal reflux disease) (Acute) Vertigo (Acute) Seasonal allergies (Acute) Migraine (Acute) Hemorrhoids with complication (Acute) Gastroparesis (Acute) Essential hypertension (Acute) Left shoulder pain (Acute) Chronic idiopathic constipation (Acute) Left knee pain (Acute) Hypothyroidism (Acute) Bilateral shoulder pain (Acute) Hyperlipidemia LDL goal <70 (Acute) Degeneration, intervertebral disc, cervical (Acute) Spondylosis of cervical spine at multiple levels without myelopathy (Acute) Renal calculi (Acute) Incontinence (Acute) Goiter (Acute) Disc degeneration, lumbar (Acute) Spondylosis of lumbar region without myelopathy or radiculopathy (Acute) Arthropathy of facet joint (Acute) Insomnia (Acute) LUDY (generalized anxiety disorder) (Acute) Chronic pain syndrome (Acute) Morbid (severe) obesity due to excess calories (Acute) Fibromyalgia (Acute) Asthma (Acute) Past Medical History Medical History Fatty liver Numbness Hemorrhoids with complication Gastroparesis Essential hypertension Left shoulder pain Type 2 diabetes mellitus Hyperparathyroidism Erosive esophagitis Hypertension Acute diarrhea Pre-op examination Cervical radiculopathy Rash of foot Kiera albicans infection Cervicalgia Environmental allergies Hospital discharge follow-up MARY on CPAP Elevated red blood cell count Screening for hyperlipidemia Chronic pain syndrome Lumbar pain Encounter for annual routine gynecological examination Multiple air fluid levels of small intestine determined by X-ray Abdominal bloating Hypothyroid Sleep apnea Abdominal cramping Edema Anxiety with depression Chronic pain (Unknown) Left knee pain Hypothyroidism Bilateral shoulder pain Hyperlipidemia LDL goal <70 Degeneration, intervertebral disc, cervical Spondylosis of cervical spine at multiple levels without myelopathy Sleep apnea Renal calculi Incontinence Goiter Disc degeneration, lumbar Spondylosis of lumbar region without myelopathy or radiculopathy Arthropathy of facet joint Insomnia LUDY (generalized anxiety disorder) Moderately severe recurrent major depression Chronic pain syndrome Morbid (severe) obesity due to excess calories Fibromyalgia Small bowel motility disorder Chronic idiopathic constipation Asthma Family History Family History Father Past heart attack Anxiety Mother MOF (multiple organ failure) Brother HIV (human immunodeficiency virus infection) Sister Ovarian cancer Lupus Bone cancer Uterine cancer Tumor Daughter Guillain-Carmine Sister Lupus History of open heart surgery Family/Other Depression FH: mental illness Maternal Aunt Breast cancer Maternal Aunt Tumor Family history of problems with anesthesia: No (reports mother had MT under anesthesia, vague historian) Surgical History Surgical History History of esophagogastroduodenoscopy (EGD) (01/02/25) History of knee replacement procedure of right knee History of hernia surgery Hx of colonoscopy History of esophagogastroduodenoscopy (EGD) History of cholecystectomy Delivery by section History of hysterectomy History of Problems with Anesthesia: No Social History Social History Household Members: None Housing: Apartment Are you a primary career transition specialist to a significant other at home: No Do you presently have visiting nurse or other home services: Yes Alcohol intake: never Patient Tobacco Use Status: Never used Tobacco e-Cigarette/Vaping Use: Never Used Second Hand Smoke Exposure: No Use of substances other than those prescribed or required for medical reasons: No Have you been hit, kicked, punched, or otherwise hurt by someone within the past year? If so, by whom?: No Are you DNR?: No Advance Directives: Yes Advance Directives Information Provided: No Advance Directives on File: Yes Advance Directives Date on File: 12/08/21 service: No Current occupational status: unemployed and disabled Cognitive needs: Yes Hearing needs: No Vision needs: No Meds Allergies Allergy/AdvReac Type Severity Reaction Status Date / Time adhesive tape (ADHESIVE TAPE) Allergy Intermediate RASH Verified 04/18/25 12:44 amoxicillin (AMOXICILLIN) Allergy Intermediate Hives Verified 04/26/25 06:28 ibuprofen (From Motrin) Allergy Intermediate Hypertensio Verified 04/18/25 12:44 n latex Allergy Intermediate Rash Verified 04/18/25 12:44 Penicillins Allergy Intermediate Hives Verified 04/26/25 06:28 Home Medications ?Medication ?Instructions ?Recorded ?Confirmed ?Last Taken ?Type CPAP (CPAP Machine/Device) 03/01/24 01/02/25 Unknown History nebulizers 03/01/24 01/02/25 Unknown History docusate sodium 100 mg capsule 100 mg PO BID PRN Constipation 12/01/24 04/18/25 11/28/24 History (Colace) insulin lispro 100 unit/mL 5 unit subcut DAILY@1700 12/01/24 04/18/25 11/27/24 History subcutaneous pen (Humalog KwikPen (U-100) Insulin) pantoprazole 40 mg tablet,delayed 40 mg PO BID@0630,1630 12/26/24 04/18/25 Unknown History release clonazepam 1 mg tablet 0.5 mg PO TID PRN anxiety 01/18/25 04/18/25 04/26/25 History hydroxyzine HCl 50 mg tablet 50 mg PO TID 01/18/25 04/18/25 Unknown History paroxetine HCl 40 mg tablet 40 mg PO DAILY 01/18/25 04/18/25 Unknown History trazodone 150 mg tablet 150 mg PO BEDTIME 01/18/25 04/18/25 Unknown History Exam Height,Weight and Vital Signs: Height 5 ft 5 in Weight 122.016 kg Last Vital Signs Pulse 62 04/18/25 12:54 Resp 16 04/18/25 12:54 BP 141/64 H 04/18/25 12:54 Pulse Ox 96 04/18/25 12:54 O2 Del Method Room Air 04/18/25 12:54 Pertinent Lab Results Pertinent Lab Results: Laboratory Tests 01/19/25 06:39 WBC 9.8 Hgb 11.4 L Hct 38.5 Plt Count 171 D Sodium 139 Potassium 4.0 Chloride 108 Carbon Dioxide 24 BUN 9 Creatinine 0.68 Narrative Narrative: EKG 12/2024 Vent. Rate : 55 BPM Atrial Rate : 55 BPM P-R Int : 138 ms QRS Dur : 80 ms QT Int : 452 ms P-R-T Axes : 8 9 21 degrees QTcB Int : 432 ms Sinus bradycardia Otherwise normal ECG When compared with ECG of 02-Dec-2024 09:30, QT has shortened Airway Mallampati Class: II TM Dist: >3cm Neck ROM: Full Loose/Missing/Broken Teeth: Yes (molars missing) Heart: RRR Lungs: CTAB Assessment and Plan Assessment Anesthesia Assessment: Anesthesia Plan Discussed and PAT Visit Final Anesthetic Review Family History of Problems with Anesthesia: No (reports mother had MT under anesthesia, vague historian) History of Problems with Anesthesia: No Documented by User: Dami Newton MD 04/26/25 07:27 HPI - Anesthesia Eval Anesthesia Pre-Procedure Meds If yes to any meds - educate patient: Pt education - possibility of cancelled proc at provider's discretion PMFSH Past Medical History Medical History Fatty liver Numbness Hemorrhoids with complication Gastroparesis Essential hypertension Left shoulder pain Type 2 diabetes mellitus Hyperparathyroidism Erosive esophagitis Hypertension Acute diarrhea Pre-op examination Cervical radiculopathy Rash of foot Kiera albicans infection Cervicalgia Environmental allergies Hospital discharge follow-up MARY on CPAP Elevated red blood cell count Screening for hyperlipidemia Chronic pain syndrome Lumbar pain Encounter for annual routine gynecological examination Multiple air fluid levels of small intestine determined by X-ray Abdominal bloating Hypothyroid Sleep apnea Abdominal cramping Edema Anxiety with depression Chronic pain (Unknown) Left knee pain Hypothyroidism Bilateral shoulder pain Hyperlipidemia LDL goal <70 Degeneration, intervertebral disc, cervical Spondylosis of cervical spine at multiple levels without myelopathy Sleep apnea Renal calculi Incontinence Goiter Disc degeneration, lumbar Spondylosis of lumbar region without myelopathy or radiculopathy Arthropathy of facet joint Insomnia LUDY (generalized anxiety disorder) Moderately severe recurrent major depression Chronic pain syndrome Morbid (severe) obesity due to excess calories Fibromyalgia Small bowel motility disorder Chronic idiopathic constipation Asthma Cognitive capacity: normal cognitive skills and Functional capacity: independent ambulation Family History Family History Father Past heart attack Anxiety Mother MOF (multiple organ failure) Brother HIV (human immunodeficiency virus infection) Sister Ovarian cancer Lupus Bone cancer Uterine cancer Tumor Daughter Guillain-Carmine Sister Lupus History of open heart surgery Family/Other Depression FH: mental illness Maternal Aunt Breast cancer Maternal Aunt Tumor Surgical History Surgical History History of esophagogastroduodenoscopy (EGD) (01/02/25) History of knee replacement procedure of right knee History of hernia surgery Hx of colonoscopy History of esophagogastroduodenoscopy (EGD) History of cholecystectomy Delivery by section History of hysterectomy Social History Social History Household Members: None Housing: Apartment Are you a primary career transition specialist to a significant other at home: No Do you presently have visiting nurse or other home services: Yes Alcohol intake: never Patient Tobacco Use Status: Never used Tobacco e-Cigarette/Vaping Use: Never Used Second Hand Smoke Exposure: No Use of substances other than those prescribed or required for medical reasons: No Have you been hit, kicked, punched, or otherwise hurt by someone within the past year? If so, by whom?: No Are you DNR?: No Advance Directives: Yes Advance Directives Information Provided: No Advance Directives on File: Yes Advance Directives Date on File: 12/08/21 service: No Current occupational status: unemployed and disabled Cognitive needs: Yes Hearing needs: No Vision needs: No Meds Allergies Allergy/AdvReac Type Severity Reaction Status Date / Time adhesive tape (ADHESIVE TAPE) Allergy Intermediate RASH Verified 04/18/25 12:44 amoxicillin (AMOXICILLIN) Allergy Intermediate Hives Verified 04/26/25 06:28 ibuprofen (From Motrin) Allergy Intermediate Hypertensio Verified 04/18/25 12:44 n latex Allergy Intermediate Rash Verified 04/18/25 12:44 Penicillins Allergy Intermediate Hives Verified 04/26/25 06:28 Home Medications ?Medication ?Instructions ?Recorded ?Confirmed ?Last Taken ?Type CPAP (CPAP Machine/Device) 03/01/24 01/02/25 Unknown History nebulizers 03/01/24 01/02/25 Unknown History docusate sodium 100 mg capsule 100 mg PO BID PRN Constipation 12/01/24 04/18/25 11/28/24 History (Colace) insulin lispro 100 unit/mL 5 unit subcut DAILY@1700 12/01/24 04/18/25 11/27/24 History subcutaneous pen (Humalog KwikPen (U-100) Insulin) pantoprazole 40 mg tablet,delayed 40 mg PO BID@0630,1630 12/26/24 04/18/25 Unknown History release clonazepam 1 mg tablet 0.5 mg PO TID PRN anxiety 01/18/25 04/18/25 04/26/25 History hydroxyzine HCl 50 mg tablet 50 mg PO TID 01/18/25 04/18/25 Unknown History paroxetine HCl 40 mg tablet 40 mg PO DAILY 01/18/25 04/18/25 Unknown History trazodone 150 mg tablet 150 mg PO BEDTIME 01/18/25 04/18/25 Unknown History Exam Exam Date and Time: 04/26/25 Airway Loose/Missing/Broken Teeth: No (there are missing teeth mainly in the mandible.the rest of the teeth appeared lissa to me, except for the wear and tear like anyone else) Other: i examimd her airway.i discussed about prone position Assessment and Plan Final Anesthetic Review NPO: Yes ASA Class: III Final Preanesthetic Review: No Changes in Pt Med Stat, Meds/Allgs Chart Reviewed, Consent Obtained/Reviewed and Anes Risks/Benef Reviewed Patient Risk: Intermediate Procedure Risk: Low Anesthetic Plan Anesthetic Plan: GA Disposition: Standard PACU
[2025-04-26] VITALS (11 sets, daily range): BP systolic 109–158; BP diastolic 50–94; PULSE 52–71; RESP 13–20; TEMP 36.1–36.7; O2SAT 87–100; BMI 44.2
[2025-04-26 06:27] LABS: Glucose, Whole Blood 151 mg/dL (60-115)
[2025-04-26] MEDS: Lactated Ringers 1,000 ML 100 ML IVCONT (06:39)
--- NOTE | 2025-04-26 07:13 | MHC.SHP ---
Pre-Procedural Eval Section A - 24 Hr Update-Section A only Date of Service: 04/26/25 Section B - Complete if H&P > 30 days Chief Complaint: Other hemorrhoids Details of Present Illness: Has had a long history of swelling and pain with her hemorrhoids Relevant Family History (Specify if Yes): No Relevant Social History: None Present Medications: see Short Stay Collaborative assessment Medical History: Significant History (Obesity, arthritis, apnea, gastroparesis, migraine, hypertension) Allergies: Allergies Allergy/AdvReac Type Severity Reaction Status Date / Time adhesive tape (ADHESIVE TAPE) Allergy Intermediate RASH Verified 04/18/25 12:44 amoxicillin (AMOXICILLIN) Allergy Intermediate Hives Verified 04/26/25 06:28 ibuprofen (From Motrin) Allergy Intermediate Hypertensio Verified 04/18/25 12:44 n latex Allergy Intermediate Rash Verified 04/18/25 12:44 Penicillins Allergy Intermediate Hives Verified 04/26/25 06:28 Review of Systems Sugical H&P ROS: Negative: Constitution, Cardiovascular and Respiratory Exam Surgical H&P Exam: Normal: Heart, Normal: Lungs and Normal: Abdomen Exam Comment: Has known internal external hemorrhoids Plan Diagnosis/Plan: Unchanged I have reviewed the history and physical and performed a pertinent physical examination on my patient. No changes have occurred unless specified. Time Spent With Patient Time: Total time managing care of this patient today ____ minutes.
--- NOTE | 2025-04-26 08:13 | W.PM.OPN ---
Operative Note Operative Note Date of Service: 04/26/25 Narrative: Preop diagnosis: Internal external hemorrhoids with pain and bleeding Postop diagnosis: The same Procedure: Exam under anesthesia, Hemorrhoidectomy x2 columns Surgeon: Jason Lantigua MD Stenographic Court Reporter: Keila Swartz, MS 3 The patient is a 60 year old morbidly obese female with a long history of pain and bleeding with the her hemorrhoids. She therefore wanted to proceed with hemorrhoidectomy. She understood the technique of the planned procedure as well as the risks, benefits, and alternatives. She was brought to the operating room. She was placed in prone gabriella-knife position under general anesthesia via endotracheal tube. The buttocks were retracted with wide tape laterally. The perianal area was prepped and draped in the usual sterile fashion. A surgical time-out was done. The patient received Cefotan 2 g IV preoperatively Examination of the anal orifice revealed a large external hemorrhoid on the posterior area. The perianal area was infiltrated with lidocaine 1%. I inserted the Ahsan Acosta retractor. I examined the anal canal circumferentially. Again this external hemorrhoidal column was seen posteriorly. There was note of a mixed internal external hemorrhoidal column on the right side as well which appeared to be moderate-sized There were no lesions seen. There was no fissure or ulceration I applied a Franco grasper on the external hemorrhoidal column on the posterior area. I made an elliptical incision around this with a blade 15. This carried down through the full-thickness of the skin and subcutaneous layer and I used the Metzenbaum scissors to excise this hemorrhoidal column above the plane of the sphincters. I closed the incision with a running chromic 3-0 stitch and additional hemostatic sutures were placed for oozing areas I then proceeded to apply a Franco grasper on the hemorrhoidal column on the right. I made a [id number] 8 stitch at the pedicle with a chromic 3-0. I made an incision elliptically around this hemorrhoidal column to the perianal skin with a blade 15. This was carried down through the full-thickness of the skin and I excised this hemorrhoidal column along this incision above the plane of the sphincters using scissors. I closed this incision with the running chromic 3-0 stitch with additional hemostatic sutures placed for oozing areas. Hemostasis was confirmed, I proceeded to then infiltrated the perianal area with Marcaine 0.5% generously for postop analgesia The procedure was then completed The patient tolerated the procedure well. There were no immediate complications. Initial and final counts of sponges and instruments were correct. Estimated blood loss was about 30 cc The patient is extubated without difficulty and transferred to the recovery room with stable vital signs.
[2025-04-26] MEDS: oxyCODONE HCl Immed Release 5 MG TABLET PO (09:12)
== END 2025-04-26 11:19 | disposition home or self-care (01) ==
PROVIDERS: PCP Internal Medicine; Visit Provider Surgery
PROC: (CPT 46260; principal; 2025-04-26 07:30)
DX: K64.8 Other hemorrhoids (principal); K64.4 Residual hemorrhoidal skin tags; K62.89 Other specified diseases of anus and rectum; I10 Essential (primary) hypertension; E78.5 Hyperlipidemia, unspecified; E11.9 Type 2 diabetes mellitus without complications; J45.909 Unspecified asthma, uncomplicated; E66.01 Morbid (severe) obesity due to excess calories; M79.7 Fibromyalgia; M47.816 Spondylosis without myelopathy or radiculopathy, lumbar region; M51.369 Other intervertebral disc degeneration, lumbar region without mention of lumbar back pain or lower extremity pain; G89.4 Chronic pain syndrome; F32.A Depression, unspecified; Z79.4 Long term (current) use of insulin; Z79.899 Other long term (current) drug therapy; Z99.89 Dependence on other enabling machines and devices; Z88.0 Allergy status to penicillin; Z88.6 Allergy status to analgesic agent; L23.1 Allergic contact dermatitis due to adhesives; Z91.040 Latex allergy status; Z98.890 Other specified postprocedural states
CPT/HCPCS: 46260; 82947; 88304; J0131; J1100; J1171; J1885; J2003; J2250; J2405; J2704; J2795; J3010

== ENCOUNTER → 2025-04-26 05:31 | Outpatient (BNV) | payer OTHER, SELFPAY | PROVIDERS: PCP Internal Medicine; Visit Provider Surgery | DX: K64.8 Other hemorrhoids (principal) | CPT/HCPCS: 46260 ==

== ENCOUNTER 2025-05-21 11:20 | Outpatient (AMB) | payer OTHER, SELFPAY ==
--- NOTE | 2025-05-21 11:21 | A.OFFVIS_ITS ---
Vital Signs 05/21/25 11:29 Weight 270 lb BP 141/74 H Blood Pressure Location Rt brachial Position Sitting Pulse 81 Intake Visit Reasons: s/p Hemorrhoidectomy Intake Note: Patient here s/p exam under anesthesia, Hemorrhoidectomy x2 columns. Patient c/o: diarrhea, stool is dark hernandez. Still taking rx pain med as needed. Surgery: 04-26-2025 Scientific Programmer Analyst Required: No Accompanied by: Self / Same As Patient Allergies adhesive tape (ADHESIVE TAPE) Allergy (Intermediate, Verified 05/21/25 11:28) RASH amoxicillin (AMOXICILLIN) Allergy (Intermediate, Verified 05/21/25 11:28) Hives ibuprofen (From Motrin) Allergy (Intermediate, Verified 05/21/25 11:28) Hypertension latex Allergy (Intermediate, Verified 05/21/25 11:28) Rash Penicillins Allergy (Intermediate, Verified 05/21/25 11:28) Hives HPI HPI s/p Hemorrhoidectomy: Details: She underwent hemorrhoidectomy x2 columns last 04/26/2025. She tolerated the procedure well She describes some residual pain. She denies any significant bleeding. She is able to sit down on a chair. [facility] Medical History Fatty liver Numbness Hemorrhoids with complication Gastroparesis Essential hypertension Left shoulder pain Type 2 diabetes mellitus Hyperparathyroidism Erosive esophagitis Hypertension Acute diarrhea Pre-op examination Cervical radiculopathy Rash of foot Kiera albicans infection Cervicalgia Environmental allergies Hospital discharge follow-up MARY on CPAP Elevated red blood cell count Screening for hyperlipidemia Chronic pain syndrome Lumbar pain Encounter for annual routine gynecological examination Multiple air fluid levels of small intestine determined by X-ray Abdominal bloating Hypothyroid Sleep apnea Abdominal cramping Edema Anxiety with depression Chronic pain (Unknown) Left knee pain Hypothyroidism Bilateral shoulder pain Hyperlipidemia LDL goal <70 Degeneration, intervertebral disc, cervical Spondylosis of cervical spine at multiple levels without myelopathy Sleep apnea Renal calculi Incontinence Goiter Disc degeneration, lumbar Spondylosis of lumbar region without myelopathy or radiculopathy Arthropathy of facet joint Insomnia LUDY (generalized anxiety disorder) Moderately severe recurrent major depression Chronic pain syndrome Morbid (severe) obesity due to excess calories Fibromyalgia Small bowel motility disorder Chronic idiopathic constipation Asthma Surgical History History of esophagogastroduodenoscopy (EGD) (01/02/25) History of knee replacement procedure of right knee History of hernia surgery Hx of colonoscopy History of esophagogastroduodenoscopy (EGD) History of cholecystectomy Delivery by section History of hysterectomy Family History Father Past heart attack Anxiety Mother MOF (multiple organ failure) Brother HIV (human immunodeficiency virus infection) Sister Ovarian cancer Lupus Bone cancer Uterine cancer Tumor Daughter Guillain-Anaheim Sister Lupus History of open heart surgery Family/Other Depression FH: mental illness Maternal Aunt Breast cancer Maternal Aunt Tumor Social History Household Members: None Household Members Other:: Daughter Housing: Apartment Are you a primary patient care assistant to a significant other at home: No Do you presently have visiting nurse or other home services: Yes 75 years or older and lives alone: No Alcohol intake: never Patient Tobacco Use Status: Never used Tobacco e-Cigarette/Vaping Use: Never Used Second Hand Smoke Exposure: No Use of substances other than those prescribed or required for medical reasons: No Advance Directives Date on File: 12/08/21 service: No Current occupational status: unemployed and disabled Cognitive needs: Yes Hearing needs: No Vision needs: No Review of Systems Const Denies chills and Denies fever(s) Card Denies chest pain at rest GI Denies hematochezia Physical Exam Vital Signs: Last Vital Signs Pulse 81 05/21/25 11:29 BP 141/74 H 05/21/25 11:29 Const Other: Morbidly obese General: comfortable and no acute distress Resp Effort & Inspection: normal respiratory effort GI Other: Rectal exam exam shows the hemorrhoidectomy sites to be healing well, not infected, no bleeding, no cellulitis or discharge Assessment & Plan Assessment & Plan (1) Hemorrhoids with complication: Code(s): K64.8 - Other hemorrhoids Category: Medical Plan: Status post hemorrhoidectomy x2 columns. The surgical sites are actually healing very well. He has no evidence of any infection Her path report shows hemorrhoids as well as an anal papillae. I advised her to avoid straining and constipation. She can otherwise follow up on a p.r.n. basis. She is to continue hot Sitz baths. Coding Level of Care Code Global (39945) Diagnoses Hemorrhoids with complication K64.8
[2025-05-21 11:29] VITALS: BP 141/74; PULSE 81
== END 2025-05-21 11:31 | disposition home or self-care (01) ==
LOC: HO.HGS 11:21
PROVIDERS: PCP Internal Medicine; Visit Provider Surgery
DX: K64.8 Other hemorrhoids (principal)
CPT/HCPCS: 99024

== ENCOUNTER → 2025-05-21 11:20 | Outpatient (BNVA) | payer OTHER, SELFPAY | PROVIDERS: PCP Internal Medicine; Visit Provider Surgery | DX: K64.8 Other hemorrhoids (principal) | CPT/HCPCS: 99212 ==

== ENCOUNTER 2025-06-15 08:29 | Outpatient (AMB) | payer OTHER, SELFPAY ==
--- NOTE | 2025-06-15 08:30 | MHC.OFFVIS ---
Vital Signs 06/15/25 08:31 Weight 268 lb 1.314 oz BP 124/76 Blood Pressure Location Lt brachial Position Sitting Pulse 92 Pulse Source Pulse Oximeter Pulse Oximetry (%) 96 Oxygen Delivery Method Room Air Intake Visit Reasons: DM Intake Note: Patient present today for Type 2 Diabetes Mellitus Last Diabetic eye exam: Last exam was 04/25/25 Last Podiatry Visit: Doesn't have one Random Glucose: 131 mg/dl HgA1C: 6.9% [employer] Required: No Accompanied by: Self / Same As Patient Allergies adhesive tape (ADHESIVE TAPE) Allergy (Intermediate, Verified 06/15/25 08:39) RASH amoxicillin (AMOXICILLIN) Allergy (Intermediate, Verified 06/15/25 08:39) Hives ibuprofen (From Motrin) Allergy (Intermediate, Verified 06/15/25 08:39) Hypertension latex Allergy (Intermediate, Verified 06/15/25 08:39) Rash Penicillins Allergy (Intermediate, Verified 06/15/25 08:39) Hives Medication List - Last Reconciled 06/15/25 by Monet Plata PA-C acetaminophen ER 650 mg PO Q8H PRN 30 days albuterol sulfate 2.5 mg (3 mL) inhalation Q6H PRN 30 days albuterol sulfate 90 mcg/actuation (Ventolin HFA) 1 puff PO Q4H PRN 30 days atorvastatin 10 mg PO BEDTIME baclofen 10 mg PO BID PRN 30 days blood pressure monitor Use as needed blood pressure test kit-large As directed blood sugar diagnostic (FreeStyle Test strips) Use 1 test strip once a day blood-glucose meter (FreeStyle Lite Meter kit) As directed [BP monitor As directed] cetirizine (All Day Allergy (cetirizine)) 10 mg PO DAILY PRN 10 days cholecalciferol (vitamin D3) 50 mcg PO BEDTIME clonazepam 0.5 mg PO TID PRN CPAP (CPAP Machine/Device) As directed docusate sodium (Colace) 100 mg PO BID docusate sodium (Colace) 100 mg PO BID PRN dulaglutide (Trulicity) 1.5 mg (0.5 mL) subcut QWEEK ear thermometer As directed ferrous sulfate 325 mg PO DAILY 90 days fluticasone furoate-vilanterol 200-25 mcg/dose (Breo Ellipta) 1 inh inhalation DAILY 30 days gabapentin 300 mg PO TID 30 days glucose (Dex4 Glucose) 16 grams (4 x 4 gram) PO Q15M PRN heating pads (Advocate Heating Pad) As directed hydrocortisone 2.5% (Proctosol HC) 1 appl AL BID-QID PRN hydroxyzine HCl 50 mg PO TID hyoscyamine sulfate 0.125 mg sublingual Q2-4H PRN insulin glargine (Lantus Solostar U-100 Insulin) 15 units (0.15 mL) subcut QAM insulin lispro (Humalog KwikPen (U-100) Insulin) 5 units (0.05 mL) subcut DAILY@1700 lancets (FreeStyle Lancets) As directed- daily levothyroxine 112 mcg PO DAILY@0600 loperamide (Anti-Diarrheal (loperamide)) 2 mg PO Q6H PRN magnesium oxide 400 mg PO BEDTIME 90 days meclizine 25 mg PO DAILY PRN 90 days metoclopramide HCl 10 mg PO TIDAC metoprolol succinate ER 50 mg PO DAILY 90 days nebulizers As directed nystatin 1 appl topical DAILY 2 weeks ondansetron 4 mg PO Q8H PRN 30 days oxycodone-acetaminophen 5-325 mg 1 tab PO Q6H PRN pantoprazole 40 mg PO BID paroxetine HCl 40 mg PO DAILY pen needle, diabetic (BD Rosario 2nd Gen Pen Needle) use 2x daily As directed polyethylene glycol 3350 17 grams PO BID promethazine (Promethegan) 25 mg AL Q6H PRN [recliner As directed] rizatriptan 10 mg PO ONCE PRN 30 days [shower chair As directed] [toilet safety frame As directed] trazodone 150 mg PO BEDTIME HPI HPI DM: Details: Patient is a 60-year-old female with a significant past medical history of hypertension, hyperlipidemia, type 2 diabetes, gastroparesis, hypothyroidism and obstructive sleep apnea presenting today for her diabetes. Endo: Her A1c today is 6.9. She is currently on Lantus 15 units at bedtime, lispro 5 units with supper, and Trulicity 1.5 mg every week. Tolerates this well. CGM- declines wearing CGM. States that she does not like how they feel. She tells me that she would rather prefer her fingers. She is here today because she needs testing supplies. States hypoglycemia is rare. She does report peripheral neuropathy and states that she gets tingling in a burning sensation in her feet at night but she also has shooting pains from her back and does have a follow up scheduled with her PCP next month. She is out of gabapentin. She felt a ineffective to take during the day but at night it did seem like it offered some mild relief. CV: Blood pressure today is 124/76. She is on metoprolol 50 mg daily. Cholesterol is managed with atorvastatin 10 mg. She does not believe the pains are related to when she start a cholesterol medication. She does have a history of fibromyalgia. [facility] Medical History Fatty liver Numbness Hemorrhoids with complication Gastroparesis Essential hypertension Left shoulder pain Type 2 diabetes mellitus Hyperparathyroidism Erosive esophagitis Hypertension Acute diarrhea Pre-op examination Cervical radiculopathy Rash of foot Kiera albicans infection Cervicalgia Environmental allergies Hospital discharge follow-up MARY on CPAP Elevated red blood cell count Screening for hyperlipidemia Chronic pain syndrome Lumbar pain Encounter for annual routine gynecological examination Multiple air fluid levels of small intestine determined by X-ray Abdominal bloating Hypothyroid Sleep apnea Abdominal cramping Edema Anxiety with depression Chronic pain (Unknown) Left knee pain Hypothyroidism Bilateral shoulder pain Hyperlipidemia LDL goal <70 Degeneration, intervertebral disc, cervical Spondylosis of cervical spine at multiple levels without myelopathy Sleep apnea Renal calculi Incontinence Goiter Disc degeneration, lumbar Spondylosis of lumbar region without myelopathy or radiculopathy Arthropathy of facet joint Insomnia LUDY (generalized anxiety disorder) Moderately severe recurrent major depression Chronic pain syndrome Morbid (severe) obesity due to excess calories Fibromyalgia Small bowel motility disorder Chronic idiopathic constipation Asthma Surgical History (Updated 05/21/25 @ 11:32 by KAN Sutherland) History of hemorrhoidectomy (04/26/25) History of esophagogastroduodenoscopy (EGD) (01/02/25) History of knee replacement procedure of right knee History of hernia surgery Hx of colonoscopy History of esophagogastroduodenoscopy (EGD) History of cholecystectomy Delivery by section History of hysterectomy Family History Father Past heart attack Anxiety Mother MOF (multiple organ failure) Brother HIV (human immunodeficiency virus infection) Sister Ovarian cancer Lupus Bone cancer Uterine cancer Tumor Daughter Guillain-[place] Sister Lupus History of open heart surgery Family/Other Depression FH: mental illness Maternal Aunt Breast cancer Maternal Aunt Tumor Social History Household Members: None Household Members Other:: Daughter Housing: Apartment Are you a primary palliative care nurse practitioner to a significant other at home: No Do you presently have visiting nurse or other home services: Yes 75 years or older and lives alone: No Alcohol intake: never Patient Tobacco Use Status: Never used Tobacco e-Cigarette/Vaping Use: Never Used Second Hand Smoke Exposure: No Advance Directives Date on File: 12/08/21 service: No Current occupational status: unemployed and disabled Cognitive needs: Yes Hearing needs: No Vision needs: No Physical Exam Vital Signs: Last Vital Signs Pulse 92 06/15/25 08:31 BP 124/76 06/15/25 08:31 Pulse Ox 96 06/15/25 08:31 Oxygen Delivery Method Room Air 06/15/25 08:31 Const Orientation/consciousness: patient oriented x3 Neck Neck: Yes no lymphadenopathy Thyroid: Thyroid normal Carotids: no bruits Resp Auscultation: clear to auscultation bilaterally Cardio Rate: regular rate Rhythm: regular rhythm Heart sounds: S1 normal heart sound present and S2 normal heart sound present Peripheral pulses: dorsalis pedis present Neuro General: patient oriented x3, gait normal and no focal motor deficits Extrem Other: Monofilament sensation intact bilaterally. Vibratory sensation intact bilaterally. Skin intact. General: Yes normal to inspection Results AMB Hemoglobin A1c AMB Hemoglobin A1c 6.9 % Last Edit by KAN Arenas on 06/15/25 08:53 Results Reviewed Results Reviewed: Laboratory Last Values Glucose (Clinic) 131 mg/dL (60-115) H 06/15/25 08:42 Laboratory Tests 01/18/25 01/19/25 04/26/25 11:25 06:39 06:21 Creatinine 0.68 Estimated GFR > 60 POC Glucose 151 H AST 18 ALT 15 Assessment & Plan Assessment & Plan (1) Uncontrolled type 2 diabetes mellitus with hyperglycemia, with long-term current use of insulin: Code(s): E11.65 - Type 2 diabetes mellitus with hyperglycemia; Z79.4 - [facility]iary (current) use of insulin Category: Medical Plan: Continue current regimen Testing supplies ordered Reviewed signs and symptoms of hyper and hypoglycemia that would require emergent medical treatment I tried to convince her to wear a CGM but she refuses I have reordered the gabapentin 300 mg to be taken at bedtime. She will follow up with her PCP. (2) Essential hypertension: Code(s): I10 - Essential (primary) hypertension Category: Medical Plan: WNL. Continue current regimen Orders: Orders AMB Hemoglobin A1c Today E11.65 - Type 2 diabetes mellitus with hyperglycemia, Z13.9 - Encounter for screening, unspecified, Z79.4 - penitentiary (current) use of insulin Medications: Changed From blood sugar diagnostic (FreeStyle Test strips) Use 1 test strip once a day 100 ea 3RF E11.9 - Type 2 diabetes mellitus without complications To blood sugar diagnostic (FreeStyle Test strips) Use 1 test strip 4x a day to monitor blood sugars 300 ea 3RF E11.9 - Type 2 diabetes mellitus without complications From lancets (FreeStyle Lancets) As directed- daily 100 ea 3RF E11.65 - Type 2 diabetes mellitus with hyperglycemia, Z79.4 - medical terminologist (current) use of insulin To lancets (FreeStyle Lancets) use to monitor blood sugars 4x a day 300 ea 3RF E11.65 - Type 2 diabetes mellitus with hyperglycemia, Z79.4 - medical terminologist (current) use of insulin From gabapentin 300 mg PO TID 30 days 90 caps 0RF M79.2 - Neuralgia and neuritis, unspecified To gabapentin 300 mg PO .nightly 90 caps 1RF 90 days M79.2 - Neuralgia and neuritis, unspecified From blood-glucose meter (FreeStyle Lite Meter kit) As directed 1 ea 0RF E11.65 - Type 2 diabetes mellitus with hyperglycemia, Z79.4 - penitentiary (current) use of insulin To blood-glucose meter (FreeStyle Lite Meter kit) As directed to monitor blood sugars 4x a day 1 ea 0RF E11.65 - Type 2 diabetes mellitus with hyperglycemia, Z79.4 - penitentiary (current) use of insulin Coding Level of Care Code Est Pt Level 4 (55737) Complex EM visit Add On G2211 Diagnoses Uncontrolled type 2 diabetes mellitus with hyperglycemia, with long-term current use of insulin E11.65; Z79.4 Essential hypertension I10
[2025-06-15 08:31] VITALS: BP 124/76; PULSE 92; O2SAT 96
[2025-06-15 08:47] LABS: Glucose, Whole Blood 131 mg/dL (60-115)
== END 2025-06-15 08:58 | disposition home or self-care (01) ==
LOC: HO.ENCR 08:29
PROVIDERS: PCP Internal Medicine; Visit Provider Physician Assistant
DX: Z13.9 Encounter for screening, unspecified (principal); E11.65 Type 2 diabetes mellitus with hyperglycemia; Z79.4 Long term (current) use of insulin; I10 Essential (primary) hypertension

== ENCOUNTER → 2025-06-15 08:29 | Outpatient (BNVA) | payer OTHER, SELFPAY | PROVIDERS: PCP Internal Medicine; Visit Provider Physician Assistant | DX: E11.65 Type 2 diabetes mellitus with hyperglycemia (principal); I10 Essential (primary) hypertension; Z79.4 Long term (current) use of insulin; Z79.899 Other long term (current) drug therapy | CPT/HCPCS: 82947; 83036; 99212 ==

== ENCOUNTER 2025-06-19 12:10 | Emergency (ER) | payer OTHER, SELFPAY ==
--- NOTE | ~2025-06-19 | CT_ITS ---
EXAMINATION: CT HEAD WITHOUT CONTRAST CLINICAL INFORMATION: headartemio blurred vision hypertensive COMPARISON: January 06, 2023 TECHNIQUE: Contiguous axial imaging was performed from the skull base to vertex without intravenous administration of contrast. This CT examination was performed using dose optimization techniques as appropriate, variously including the following: *Automated exposure control *Adjustment of mA and/or kV according to patient size (this includes techniques or standardized protocols for targeted exams where dose is matched to indication/reason for exam; i.e. extremities or head) *Use of iterative reconstruction technique DLP: 756 mGy-cm FINDINGS: No acute intracranial hemorrhage, mass effect, midline shift, hydrocephalus or herniation. Harris-white matter differentiation is normal. Posterior cranial fossa contents demonstrated no focal hemorrhage mass effect or midline shift. Normal position of the cerebellar tonsils. Prominence of the extra-axial CSF spaces mostly in the frontal lobes. Sellar/suprasellar region demonstrated no gross masses. No acute fracture in the bony calvarium. No air-fluid levels in the paranasal sinuses. For pneumatization right frontal sinus. Tympanic cavities and mastoid cells are aerated. CT/CT head/brain wo IV con IMPRESSION: No acute intracranial hemorrhage or acute brain abnormality by CT. Bifrontal lobe volume loss, mild to moderate. Electronically signed by: Anibal Rosales MD 06/19/2025 03:21 PM EDT
--- NOTE | ~2025-06-19 | CT_ITS ---
CLINICAL HISTORY: RLQ abdominal pain CT abdomen and pelvis with contrast Comparison: CT/SR - CT ABDOMEN PELVIS W IV CON - 11/30/24 00:23 EST Findings: Elevated right hemidiaphragm with adjacent bandlike foci of atelectasis or scarring, similar to the prior study. Unremarkable abdominal organs. Prior cholecystectomy. No bowel obstruction, pneumoperitoneum, or pneumatosis. Status post partial hysterectomy. Otherwise unremarkable pelvic contents. Normal appendix. No acute fracture. IMPRESSION: No acute abdominal disease. This document has been electronically signed by: Sachi Mccormick MD on 06/19/2025 17:44:16
[2025-06-19 12:19] VITALS: BP 216/95; PULSE 93; RESP 20; TEMP 36.2; O2SAT 95; BMI 41.8
--- NOTE | 2025-06-19 12:19 | ED.NAVMDI ---
HPI - Nausea/Vomiting/Diarrhea General Chief complaint: Nausea/Vomiting/Diarrhea Stated complaint: Vomiting Time Seen by Provider: 06/19/25 14:09 Source: patient Mode of arrival: ambulatory Limitations: no limitations History of Present Illness ED Provider: SALVADOR STEVENS PA-C HPI Narrative: 60-year-old female with pmhx significant for HTN, HLD, depression, IDDM, hypothyroidism, GERD, CHF with preserved EF, MARY on CPAP presents to the ED today with complaints of N/V/D and abdominal pain. Reports symptoms began as watery diarrhea 3 days ago. Denies new/ abnormal foods or sick contacts. Symptoms have progress to nausea and vomiting. Denies any blood in her stool or vomit. She is unable to tolerate PO. Admits to associated abdominal pain which began on left side and has now moved to her right lower quadrant. Pain is 10/10 in severity. Surgical history includes cholecystetomy. Reports headache and now feel weak and dizzy. She describes this a room spinning sensation. Admits to intermittent BRBPR since hemorrhoidectomy at our facility on 04/26/25. Had follow up appointment with general surgery on 05/21/25 and was told she was recovering well. She was unable to take her usual meds this morning, including her metoprolol for her blood pressure. Related Data Home Medications ?Medication ?Instructions ?Recorded ?Confirmed CPAP (CPAP Machine/Device) 03/01/24 06/15/25 nebulizers 03/01/24 06/15/25 docusate sodium 100 mg capsule 100 mg PO BID PRN Constipation 12/01/24 06/15/25 (Colace) clonazepam 1 mg tablet 0.5 mg PO TID PRN anxiety 01/18/25 06/15/25 hydroxyzine HCl 50 mg tablet 50 mg PO TID 01/18/25 06/15/25 paroxetine HCl 40 mg tablet 40 mg PO DAILY 01/18/25 06/15/25 trazodone 150 mg tablet 150 mg PO BEDTIME 01/18/25 06/15/25 Previous Rx's ?Medication ?Instructions ?Recorded glucose 4 gram chewable tablet 16 g (4 x 4 gram) PO Q15M PRN 05/12/24 (Dex4 Glucose) hypoglycemia #100 tabs ear thermometer #6 ea 06/30/24 BP monitor #1 ea 07/12/24 blood pressure monitor #1 ea 07/13/24 albuterol sulfate 2.5 mg/3 mL 2.5 mg (3 mL) inhalation Q6H PRN 07/20/24 (0.083 %) solution for nebulization shortness of breath or wheezing 30 days #180 mL blood pressure test kit-large #1 ea 08/11/24 recliner #1 ea 08/11/24 fluticasone furoate 200 1 inh inhalation DAILY 30 days #1 08/14/24 mcg-vilanterol 25 mcg/dose ea inhalation powder (Breo Ellipta) loperamide 2 mg capsule 2 mg PO Q6H PRN loose stool #16 12/03/24 (Anti-Diarrheal (loperamide)) caps pen needle, diabetic 32 gauge x #100 ea 12/07/24 (BD Rosario 2nd Gen Pen Needle) promethazine 25 mg rectal 25 mg OK Q6H PRN nausea and 12/24/24 suppository (Promethegan) vomiting #20 ea ondansetron 4 mg disintegrating 4 mg PO Q8H PRN Nausea 30 days #90 01/15/25 tablet tabs metoclopramide HCl 10 mg tablet 10 mg PO TIDAC #90 tabs 01/22/25 polyethylene glycol 3350 17 gram 17 g PO BID #60 ea 01/22/25 oral powder packet nystatin 100,000 unit/gram topical 1 appl topical DAILY 2 weeks #30 02/01/25 powder grams levothyroxine 112 mcg tablet 112 mcg PO DAILY@0600 #90 tabs 02/27/25 ferrous sulfate 325 mg (65 mg 325 mg PO DAILY 90 days #90 tabs 03/15/25 iron) tablet albuterol sulfate 90 mcg/actuation 1 puff PO Q4H PRN for wheezing 30 03/21/25 aerosol inhaler (Ventolin HFA) days #54 ea magnesium oxide 400 mg (241.3 mg 400 mg PO BEDTIME 90 days #90 tabs 03/29/25 magnesium) tablet docusate sodium 100 mg capsule 100 mg PO BID #60 caps 04/26/25 (Colace) oxycodone-acetaminophen 5 mg-325 1 tab PO Q6H PRN pain #25 tabs 04/26/25 mg tablet shower chair #1 ea 05/07/25 toilet safety frame #1 ea 05/07/25 baclofen 10 mg tablet 10 mg PO BID PRN muscle spasm 30 05/11/25 days #60 tabs insulin glargine 100 unit/mL (3 15 unit (0.15 mL) subcut QAM #15 mL 05/14/25 mL) subcutaneous pen (Lantus Solostar U-100 Insulin) insulin lispro 100 unit/mL 5 unit (0.05 mL) subcut DAILY@1700 05/14/25 subcutaneous pen (Humalog KwikPen #15 mL (U-100) Insulin) hyoscyamine sulfate 0.125 mg 0.125 mg sublingual Q2-4H PRN for 05/17/25 sublingual tablet indigestion #60 ea meclizine 25 mg tablet 25 mg PO DAILY PRN dizziness 90 05/17/25 days #90 tabs rizatriptan 10 mg tablet 10 mg PO ONCE PRN migraine 05/17/25 headache 30 days #5 tabs atorvastatin 10 mg tablet 10 mg PO BEDTIME #90 tabs 05/28/25 acetaminophen 650 mg 650 mg PO Q8H PRN arthritis 30 05/30/25 tablet,extended release days #90 tabs dulaglutide 1.5 mg/0.5 mL 1.5 mg (0.5 mL) subcut QWEEK #2 mL 06/08/25 subcutaneous pen injector ([employer]) heating pads (Advocate Heating Pad) #1 ea 06/12/25 cholecalciferol (vitamin D3) 50 50 mcg PO BEDTIME #90 caps 06/13/25 mcg (2,000 unit) capsule hydrocortisone 2.5 % topical cream 1 appl OK BID-QID PRN hemorrhoids 06/13/25 with perineal applicator #30 grams (Proctosol HC) pantoprazole 40 mg tablet,delayed 40 mg PO BID #60 tabs 06/13/25 release cetirizine 10 mg tablet (All Day 10 mg PO DAILY PRN allergy 06/14/25 Allergy (cetirizine)) symptoms 10 days #10 tabs gabapentin 300 mg capsule 300 mg PO .nightly 90 days #90 caps 06/15/25 metoprolol succinate 50 mg 50 mg PO DAILY 90 days #90 tabs 06/18/25 tablet,extended release 24 hr blood sugar diagnostic (FreeStyle #300 ea 06/20/25 Test strips) blood-glucose meter (FreeStyle #1 ea 06/20/25 Lite Meter kit) lancets 28 gauge (FreeStyle #300 ea 06/20/25 Lancets) Allergies Allergy/AdvReac Type Severity Reaction Status Date / Time adhesive tape (ADHESIVE TAPE) Allergy Intermediate RASH Verified 06/19/25 12:21 amoxicillin (AMOXICILLIN) Allergy Intermediate Hives Verified 06/19/25 12:21 ibuprofen (From Motrin) Allergy Intermediate Hypertensio Verified 06/19/25 12:21 n latex Allergy Intermediate Rash Verified 06/19/25 12:21 Penicillins Allergy Intermediate Hives Verified 06/19/25 12:21 Review of Systems Review of Systems: Yes all other systems are reviewed and are negative PMFSH Past Medical History Attestation statement: The following information was validated with the patient. Source: old records reviewed and nursing notes reviewed Medical History Fatty liver Numbness Hemorrhoids with complication Gastroparesis Essential hypertension Left shoulder pain Type 2 diabetes mellitus Hyperparathyroidism Erosive esophagitis Hypertension Acute diarrhea Pre-op examination Cervical radiculopathy Rash of foot Kiera albicans infection Cervicalgia Environmental allergies Hospital discharge follow-up MARY on CPAP Elevated red blood cell count Screening for hyperlipidemia Chronic pain syndrome Lumbar pain Encounter for annual routine gynecological examination Multiple air fluid levels of small intestine determined by X-ray Abdominal bloating Hypothyroid Sleep apnea Abdominal cramping Edema Anxiety with depression Chronic pain (Unknown) Left knee pain Hypothyroidism Bilateral shoulder pain Hyperlipidemia LDL goal <70 Degeneration, intervertebral disc, cervical Spondylosis of cervical spine at multiple levels without myelopathy Sleep apnea Renal calculi Incontinence Goiter Disc degeneration, lumbar Spondylosis of lumbar region without myelopathy or radiculopathy Arthropathy of facet joint Insomnia LUDY (generalized anxiety disorder) Moderately severe recurrent major depression Chronic pain syndrome Morbid (severe) obesity due to excess calories Fibromyalgia Small bowel motility disorder Chronic idiopathic constipation Asthma Surgical History History of hemorrhoidectomy (04/26/25) History of esophagogastroduodenoscopy (EGD) (01/02/25) History of knee replacement procedure of right knee History of hernia surgery Hx of colonoscopy History of esophagogastroduodenoscopy (EGD) History of cholecystectomy Delivery by section History of hysterectomy Family History Family History Father Past heart attack Anxiety Mother MOF (multiple organ failure) Brother HIV (human immunodeficiency virus infection) Sister Ovarian cancer Lupus Bone cancer Uterine cancer Tumor Daughter Guillain-[place] Sister Lupus History of open heart surgery Family/Other Depression FH: mental illness Maternal Aunt Breast cancer Maternal Aunt Tumor Social History Social History Household Members: None Household Members Other:: Daughter Housing: Apartment Are you a primary rn progressive care to a significant other at home: No Do you presently have visiting nurse or other home services: Yes 75 years or older and lives alone: No Alcohol intake: never Patient Tobacco Use Status: Never used Tobacco e-Cigarette/Vaping Use: Never Used Second Hand Smoke Exposure: No Advance Directives Date on File: 12/08/21 service: No Current occupational status: unemployed and disabled Cognitive needs: Yes Hearing needs: No Vision needs: No Physical Exam Vital Signs: Vital Signs: Last Vital Signs Temp 0 F L 06/19/25 18:52 Pulse 104 H 06/19/25 18:52 Resp 18 06/19/25 18:52 BP 132/73 06/19/25 18:52 Pulse Ox 96 06/19/25 18:52 O2 Del Method Room Air 06/19/25 18:52 BMI result Body Mass Index 41.8 hypertensive, vitals are otherwise wnl General: Well appearing, in no acute distress. Skin: Warm, dry, intact. No rashes or lesions. Head: Normocephalic, atraumatic. EENT: Hearing is intact b/l. Conjunctiva clear. Sclera is anicteric. PERRLA. EOM intact. Moist mucous membranes.? Neck: Supple without LAD Cardiac: Chest wall symmetric. RRR Lungs: Normal respiratory effort without accessory muscle use. CTA bilaterally Abdomen: Obese abdomen, soft, nondistended, tender to palpation of right lower quadrant without rebound or guarding Rectal exam performed, patient declined sole edge inker machine. No external masses or lesions. No obvious hemorrhoids. Sutures in place, healing well. No active signs of infection. internal exam defered. Back: No midline spinous or paraspinal tenderness. No step off deformity. Ext: Upper and lower extremities atraumatic, without tenderness, deformity, swelling or erythema Neuro: AOx3. Normal speech. normal finger to nose, heel to doss, no ataxia. NIH 0. no sensory or motor deficits. Psych: Appropriate mood and affect. Responds appropriately to questions. Course Course Course Narrative: This is an RME: Additional HPI, ROS, PE not included below will be deferred to primary provider. RME assessment and note performed by: Pamela Ratliff PA-C 60-year-old female history of HTN, HLD, depression, IDDM, hypothyroidism, GERD, CHF with preserved EF, MARY on CPAP who presents to the ER with complaints of dizziness, nausea, vomiting x 3 days. Unable to tolerate PO. No abdominal pain. Had hemorrhoid surgery on 05/27. Reports that she does not believe the site is healing well. Was instructed to come to the ER due to rectal bleeding from surgical site. No longer bleeding now. Already took zofran. Plan: Labs, UA, further ER eval needed Reevaluation(s) Reevaluation #1: Patient received in sign-out at change of shift pending CT scan of the abdomen pelvis due to abdominal pain and vomiting. She would have a recent hemorrhoidectomy in 04/26/2025. She had some bleeding from the hemorrhoids site yesterday but this is since resolved. The patient's CT scan does not show any acute intra-abdominal pelvic pathology to explain her pain. The patient continues to complain of a headache. She would have a head CT that was unremarkable. She was quite hypertensive on arrival this improved after analgesia. I discussed findings with the patient and she will follow up with her outpatient providers. Time: 18:38 Reevaluation #2: 1700 -- CBC with leukocytosis, likely reactive to vomiting. No anemia, h&h stable chemistry without acute electrolyte abnormality requiring intervention. No garcia. Liver function at baseline. Glucose 187, no gap. Troponin wnl at 15.5. age adjusted dimer 225 -? below threshold. Low suspicion for PE. Will defer CTA. Negative covid, flu. > ct a/p pending. Patient stable at this time. Sign out given to yanci russell pending results and disposition. Medications Administered Discontinued Medications Generic Name Dose Route Start Last Admin Trade Name Freq PRN Reason Stop Dose Admin Diphenhydramine HCl 25 mg 06/19/25 15:48 06/19/25 16:10 Diphenhydramine Hcl 50 Mg/Ml Vial IVPUSH 06/19/25 15:49 25 mg ONCE ONE Administration Sodium Chloride 1,000 mls @ 999 mls/hr 06/19/25 14:30 06/19/25 17:00 Ns IV 06/19/25 15:30 Infused .Q1H1M RADHA Infusion Iohexol 100 ml 06/19/25 16:52 06/19/25 16:53 Iohexol 350 Mg/Ml 100 Ml Infus..Btl IV 06/19/25 16:53 100 ml ONCE ONE Administration Ketorolac Tromethamine 30 mg 06/19/25 15:47 06/19/25 16:10 Ketorolac Tromethamine 30 Mg/Ml Vial IVPUSH 06/19/25 15:48 30 mg ONCE ONE Administration Metoclopramide HCl 10 mg 06/19/25 15:48 06/19/25 16:10 Metoclopramide Hcl 10 Mg/2 Ml Vial IVPUSH 06/19/25 15:49 10 mg ONCE ONE Administration Morphine Sulfate 4 mg 06/19/25 14:24 06/19/25 14:40 Morphine Sulfate 4 Mg/Ml Cartridge IVPUSH 06/19/25 14:25 4 mg ONCE ONE Administration Protocol Morphine Sulfate 4 mg 06/19/25 17:44 06/19/25 17:55 Morphine Sulfate 4 Mg/Ml Cartridge IVPUSH 06/19/25 17:45 4 mg ONCE ONE Administration Protocol Ondansetron HCl 4 mg 06/19/25 14:26 06/19/25 14:40 Ondansetron Hcl 4 Mg/2 Ml Vial IVPUSH 06/19/25 14:27 4 mg ONCE ONE Administration Medical Decision Making Medical Decision Making MDM Narrative: 60-year-old female with pmhx significant for HTN, HLD, depression, IDDM, hypothyroidism, GERD, CHF with preserved EF, MARY on CPAP presents to the ED today with complaints of N/V/D and abdominal pain. Differential diagnoses: appendicitis, diverticulitis, diverticulosis, UTI, constipation, migraine, viral syndrome Abdominal exam without peritoneal signs. No evidence of acute abdomen at this time. Well appearing. Low suspicion for acute hepatobiliary disease (including acute cholecystitis), acute infectious processes (pneumonia, hepatitis, pyelonephritis, PID, TOA), vascular catastrophe, bowel obstruction or viscus perforation, ovarian cyst/ rupture/ torsion. Presentation not consistent with other acute, emergent causes of abdominal pain at this time. Plan: labs, UA, CT AP, pain control, fluids, serial reassessment Differential Diagnosis Differential Diagnoses: The differential diagnosis associated with the presentation includes as above. Admission/Observation Consideration of admission/observation: Escalation of care including admission/observation considered Lab Data MDM Lab Attestation statement: I reviewed the patient's lab results. as above. 06/19/25 13:00 06/19/25 13:00 Labs: Lab Results 06/19/25 06/19/25 06/19/25 Range/Units 13:00 14:32 15:09 WBC 18.6 H (4.8-10.8) X10*3/uL RBC 6.01 H D (4.20-5.50) X10*6/uL Hgb 14.5 D (12.0-16.0) g/dl Hct 45.9 (37.0-47.0) % MCV 76.4 L (80.0-98.0) fL MCH 24.1 L (27.0-33.0) pg MCHC 31.6 (31.0-35.0) g/dl RDW 18.0 H (11.0-16.0) % Plt Count 288 D (160-400) X10*3/uL MPV 10.5 (9.4-12.3) fL Immature Gran % (Auto) 0.6 H (0.0-0.4) % Neut % (Auto) 89.6 H (45-73) % Lymph % (Auto) 6.9 L (20-40) % Cavalier % (Auto) 2.6 (2-11) % Eos % (Auto) 0.1 (0-4) % Baso % (Auto) 0.2 (0-2) % Lymph # (Auto) 1.3 (1.2-4.9) X10*3/uL Cavalier # (Auto) 0.5 (0.1-1.2) X10*3/uL Eos # (Auto) 0.0 (0.0-0.4) X10*3/uL Baso # (Auto) 0.0 (0.0-0.2) X10*3/uL Abs Immat Gran (auto) 0.12 H (0.00-0.03) X10*3/uL Absolute Neuts (auto) 16.7 H (2.0-8.3) x10*3/uL Absolute Nucleated RBC 0.000 (0.0-0.012) X10*3/uL Nucleated RBC % (auto) 0.0 (0.0-0.2) /100WBC D-Dimer High Sensitivty 225 NG/ML Sodium 142 (135-145) mmol/L Potassium 4.0 (3.3-5.1) mmol/L Chloride 105 (96-108) mmol/L Carbon Dioxide 27 (22-29) mmol/L Anion Gap 14 (12-20) BUN 11 (9-16) mg/dL Creatinine 0.70 (0.5-1.4) mg/dL Estim Creat Clear Calc 116.6 Estimated GFR > 60 Random Glucose 187 H (60-115) mg/dL Calcium 10.0 D (8.4-10.2) mg/dL Magnesium 2.0 (1.6-2.6) mg/dL Total Bilirubin 0.6 (0.0-1.0) mg/dL Direct Bilirubin 0.2 (0.0-0.5) mg/dL AST 22 (5-31) U/L ALT 16 (0-31) U/L Alkaline Phosphatase 127 H (39-117) U/L Troponin I High Sens 15.5 D (<3.5-17.0) ng/L Total Protein 8.7 H (6.5-8.0) g/dL Albumin 4.8 (3.5-5.0) g/dL COVID-19 (CORNELL) Negative (Negative) COVID-19 Clin Com See Note Influenza Type A (TAL) Negative (Negative) Influenza Type B (TAL) Negative (Negative) Influenza A & B Note See Note Independent Interpretation I performed an independent interpretation of an: CT Scan Radiology Impression Discussion of test interpretation with radiology: I have reviewed the radiologist's reading. External Record Review External record reviewed: Inpatient record Prescription Management I considered prescription management with: Pain Medication Social Determinants Patient?s care significantly limited by Social Determinants of Health including: Other Social Determinant of Health Critical Care Time Critical Care Time Critical Care Time: No Discharge Plan Discharge Clinical Impression: Hypertension, Chronic abdominal pain, Acute headache Patient Disposition: Home, Self-Care Instructions: Acute Headache (ED), Abdominal Pain (ED) Additional Instructions: Your workup in the emergency department today was reassuring. You may continue to take Tylenol for your headaches and abdominal pain. Follow up with your primary doctor as well as your general surgeon regarding your hemorrhoids Return for new or worsening symptoms Prescriptions: No Action (DME) ear thermometer Misc See Rx Instructions .Route Qty: 6 0RF Rx Instructions: As directed (DME) BP monitor large See Rx Instructions .Route .MEDSUPPLY Qty: 1 0RF Rx Instructions: As directed (DME) blood pressure monitor Kit See Rx Instructions .Route Qty: 1 0RF Rx Instructions: Use as needed albuterol sulfate 2.5 mg /3 mL (0.083 %) solution for nebulization 2.5 mg inhalation Q6H PRN (Reason: shortness of breath or wheezing) 30 Days Qty: 180 11RF (DME) blood pressure test kit-large Kit See Rx Instructions .ROUTE .MEDSUPPLY Qty: 1 0RF Rx Instructions: As directed (DME) recliner See Rx Instructions .Route .MEDSUPPLY Qty: 1 0RF Rx Instructions: As directed fluticasone furoate-vilanterol [Breo Ellipta] 200-25 mcg/dose blister with device 1 inh inhalation DAILY 30 Days Qty: 1 0RF (DME) pen needle, diabetic [BD Rosario 2nd Gen Pen Needle] 32 gauge x 5/32 needle See Rx Instructions .Route Qty: 100 3RF Rx Instructions: use 2x daily As directed ondansetron 4 mg tablet,disintegrating 4 mg PO Q8H PRN (Reason: Nausea) 30 Days Qty: 90 0RF nystatin 100,000 unit/gram powder 1 appl topical DAILY 14 Days Qty: 30 1RF levothyroxine 112 mcg tablet 112 mcg PO DAILY@0600 Qty: 90 1RF ferrous sulfate 325 mg (65 mg iron) tablet 325 mg PO DAILY 90 Days Qty: 90 1RF albuterol sulfate [Ventolin HFA] 90 mcg/actuation HFA aerosol inhaler 1 puff PO Q4H PRN (Reason: for wheezing) 30 Days Qty: 54 1RF magnesium oxide 400 mg (241.3 mg magnesium) tablet 400 mg PO BEDTIME 90 Days Qty: 90 1RF (DME) shower chair See Rx Instructions .Route .MEDSUPPLY Qty: 1 0RF Rx Instructions: As directed (DME) toilet safety frame See Rx Instructions .Route .MEDSUPPLY Qty: 1 0RF Rx Instructions: As directed baclofen 10 mg tablet 10 mg PO BID PRN (Reason: muscle spasm) 30 Days Qty: 60 1RF insulin glargine [Lantus Solostar U-100 Insulin] 100 unit/mL (3 mL) insulin pen 15 unit subcut QAM Qty: 15 3RF insulin lispro [Humalog KwikPen Insulin] 100 unit/mL insulin pen 5 unit subcut DAILY@1700 Qty: 15 3RF Rx Instructions: with supper hyoscyamine sulfate 0.125 mg tablet, sublingual 0.125 mg sublingual Q2-4H PRN (Reason: for indigestion) Qty: 60 0RF rizatriptan 10 mg tablet 10 mg PO ONCE PRN (Reason: migraine headache) 30 Days Qty: 5 3RF meclizine 25 mg tablet 25 mg PO DAILY PRN (Reason: dizziness) 90 Days Qty: 90 0RF atorvastatin 10 mg tablet 10 mg PO BEDTIME Qty: 90 1RF acetaminophen 650 mg tablet extended release 650 mg PO Q8H PRN (Reason: arthritis) 30 Days Qty: 90 1RF Trulicity 1.5 mg/0.5 mL pen injector 1.5 mg subcut QWEEK Qty: 2 0RF (DME) heating pads [Advocate Heating Pad] Pad See Rx Instructions .Route Qty: 1 0RF Rx Instructions: As directed pantoprazole 40 mg tablet,delayed release (DR/EC) 40 mg PO BID Qty: 60 0RF cholecalciferol (vitamin D3) 50 mcg (2,000 unit) capsule 50 mcg PO BEDTIME Qty: 90 0RF hydrocortisone [Proctosol HC] 2.5 % cream with perineal applicator 1 appl OK BID-QID PRN (Reason: hemorrhoids) Qty: 30 0RF cetirizine [All Day Allergy (cetirizine)] 10 mg tablet 10 mg PO DAILY PRN (Reason: allergy symptoms) 10 Days Qty: 10 0RF metoprolol succinate 50 mg tablet extended release 24 hr 50 mg PO DAILY 90 Days Qty: 90 1RF (DME) FreeStyle Test Strip See Rx Instructions .Route Qty: 300 3RF Rx Instructions: Use 1 test strip 4x a day to monitor blood sugars (DME) blood-glucose meter [FreeStyle Lite Meter] Kit See Rx Instructions .Route Qty: 1 0RF Rx Instructions: As directed to monitor blood sugars 4x a day (DME) lancets [FreeStyle Lancets] 28 gauge misc See Rx Instructions .Route Qty: 300 3RF Rx Instructions: use to monitor blood sugars 4x a day docusate sodium [Colace] 100 mg capsule 100 mg PO BID PRN (Reason: Constipation) loperamide [Anti-Diarrheal (loperamide)] 2 mg capsule 2 mg PO Q6H PRN (Reason: loose stool) Qty: 16 0RF promethazine [Promethegan] 25 mg suppository 25 mg OK Q6H PRN (Reason: nausea and vomiting) Qty: 20 0RF clonazepam 1 mg tablet 0.5 mg PO TID PRN (Reason: anxiety) Rx Instructions: TAKE 1/2 TABLET BY MOUTH THREE TIMES A DAY NEEDED ANXIETY (REPLACES LORAZEPAM) hydroxyzine HCl 50 mg tablet 50 mg PO TID trazodone 150 mg tablet 150 mg PO BEDTIME paroxetine HCl 40 mg tablet 40 mg PO DAILY polyethylene glycol 3350 17 gram Powder In Packet 17 g PO BID Qty: 60 0RF metoclopramide HCl 10 mg Tablet 10 mg PO TIDAC Qty: 90 0RF oxycodone-acetaminophen 5-325 mg tablet 1 tab PO Q6H PRN (Reason: pain) Qty: 25 0RF Rx Instructions: Partial Fill upon patient request. docusate sodium [Colace] 100 mg capsule 100 mg PO BID Qty: 60 2RF (DME) nebulizers Kit See Rx Instructions .Route Rx Instructions: As directed (DME) CPAP Machine/Device Device See Rx Instructions .Route Rx Instructions: As directed glucose [Dex4 Glucose] 4 gram tablet,chewable 16 g PO Q15M PRN (Reason: hypoglycemia) Qty: 100 0RF Rx Instructions: until symptoms of low blood sugar are controlled gabapentin 300 mg capsule 300 mg PO .nightly 90 Days Qty: 90 1RF Interventions: ED Discharge Assessment Last Done: 06/19/25 18:52 Discharge Date/Time: 06/19/25 18:57 Print Language: Chadian
[2025-06-19 12:22] VITALS: BP 184/90; PULSE 80; RESP 18; O2SAT 96
[2025-06-19 12:25] VITALS: BP 205/95; PULSE 98
[2025-06-19 13:06] LABS: Hematocrit 45.9 % (37.0-47.0); Hemoglobin 14.5 g/dl (12.0-16.0); Imm Gran Abs Auto 0.12 X10*3/uL (0.00-0.03); Imm Gran Pct Auto 0.6 % (0.0-0.4); Lymphocytes Absolute Auto 1.3 X10*3/uL (1.2-4.9); MANUAL DIFF FLAG NO; Mean Corpuscular HGB Conc 31.6 g/dl (31.0-35.0); Mean Corpuscular Hemoglobin 24.1 pg (27.0-33.0); Mean Corpuscular Volume 76.4 fL (80.0-98.0); NRBC Abs Auto 0.000 X10*3/uL (0.0-0.012); NRBC Pct Auto 0.0 /100WBC (0.0-0.2); Platelet Count 288 X10*3/uL (160-400); Red Blood Count 6.01 X10*6/uL (4.20-5.50); White Blood Count 18.6 X10*3/uL (4.8-10.8)
[2025-06-19 13:28] LABS: Troponin-I High Sensitivity 15.5 ng/L (<3.5-17.0)
[2025-06-19 13:32] LABS: Alanine Aminotransferase 16 U/L (0-31); Albumin Level 4.8 g/dL (3.5-5.0); Anion Gap 14 (12-20); Aspartate Amino Transferase 22 U/L (5-31); Blood Urea Nitrogen 11 mg/dL (9-16); Calcium 10.0 mg/dL (8.4-10.2); Carbon Dioxide 27 mmol/L (22-29); Chloride 105 mmol/L (96-108); Creatinine Clr Calc Pharmacy 116.6; Estimated Glomerular Filt Rate > 60; Magnesium 2.0 mg/dL (1.6-2.6); Potassium 4.0 mmol/L (3.3-5.1); Sodium 142 mmol/L (135-145); Total Protein 8.7 g/dL (6.5-8.0)
[2025-06-19 13:42] LABS: Alkaline Phosphatase 127 U/L (39-117)
--- NOTE | 2025-06-19 14:32 | PC.NURSE ---
60 F sts she got dizzy when she went to pee yesterday, had L sided abdominal pain and n/v. A+Ox4, anxious, cooperative. Vomitting ongoing. RR even and unlabored, denies CP or Sob. pt ambulates with a walker at baseline, a little unsteady on her feet.
[2025-06-19 14:42] VITALS: BP 184/90; PULSE 79; RESP 18; O2SAT 95
[2025-06-19 14:49] LABS: D Dimer High Sensitivity 225 NG/ML
[2025-06-19 15:45] LABS: COVID-19 Test Negative (Negative); IDNOW Serial# 55D5AD1C; IDNOW Serial# 58CA691E; Influenza B2 Negative (Negative)
[2025-06-19] MEDS: iohexoL 350 MG/ML 100 ML INFUS..BTL IV (16:53)
--- NOTE | 2025-06-19 17:04 | ECG_ITS ---
Test Reason : CHECK QCT Blood Pressure : */* mmHG Vent. Rate : 68 BPM Atrial Rate : 68 BPM P-R Int : 126 ms QRS Dur : 84 ms QT Int : 476 ms P-R-T Axes : -13 10 17 degrees QTcB Int : 506 ms Normal sinus rhythm Prolonged QT Abnormal ECG When compared with ECG of 24-Dec-2024 17:05, QT has lengthened Referred By: Alejandro Jacome Electronically Signed By: FEI RADER
--- NOTE | 2025-06-19 17:16 | PC.NURSE ---
Nancy Oden, daughter, on phone for update.
[2025-06-19 17:50] VITALS: BP 109/50; PULSE 75; RESP 18; O2SAT 92
[2025-06-19 18:52] VITALS: BP 132/73; PULSE 104; RESP 18; TEMP -17.7; TEMP 0; O2SAT 96
== END 2025-06-19 18:57 | disposition home or self-care (01) ==
PROVIDERS: Physician Assistant Medical; Emergency Provider Emergency Medicine; PCP Internal Medicine
DX: R11.2 Nausea with vomiting, unspecified (principal); R19.7 Diarrhea, unspecified; R51.9 Headache, unspecified; I10 Essential (primary) hypertension; R10.9 Unspecified abdominal pain; Z03.818 Encounter for observation for suspected exposure to other biological agents ruled out
CPT/HCPCS: 36415; 70450; 74177; 80048; 80076; 83735; 84484; 85025; 85379; 87502; 87635; 93005; 96361; 96374; 96375; 96376; 99285; J1200; J1885; J2270; J2405; J2765; Q9967

== ENCOUNTER → 2025-06-19 14:24 | Outpatient (BNV) | payer OTHER, SELFPAY | PROVIDERS: Emergency Provider Emergency Medicine; PCP Internal Medicine; Visit Provider Radiology Diagnostic Radiology | DX: R10.31 Right lower quadrant pain (principal); R51.9 Headache, unspecified | CPT/HCPCS: 70450; 74177 ==

== ENCOUNTER → 2025-06-19 17:04 | Outpatient (BNV) | payer OTHER, SELFPAY | PROVIDERS: Emergency Provider Emergency Medicine; PCP Internal Medicine; Visit Provider Internal Medicine | DX: I48.91 Unspecified atrial fibrillation (principal) | CPT/HCPCS: 93010 ==

== ENCOUNTER 2025-07-31 09:49 | Outpatient (AMB) | payer OTHER, SELFPAY ==
[2025-07-31 10:21] VITALS: BP 142/80; PULSE 79; O2SAT 96; BMI 42.0
--- NOTE | 2025-07-31 10:21 | MHC.OFFVIS ---
Vital Signs 07/31/25 10:21 Height 5 ft 7 in Weight 268 lb BMI 42.0 BP 142/80 H Blood Pressure Location Lt brachial Position Sitting Pulse 79 Pulse Source Pulse Oximeter Pulse Oximetry (%) 96 Oxygen Delivery Method Room Air Intake Visit Reasons: asthma Allergies adhesive tape (ADHESIVE TAPE) Allergy (Intermediate, Verified 07/31/25 10:27) RASH amoxicillin (AMOXICILLIN) Allergy (Intermediate, Verified 07/31/25 10:27) Hives ibuprofen (From Motrin) Allergy (Intermediate, Verified 07/31/25 10:27) Hypertension latex Allergy (Intermediate, Verified 07/31/25 10:27) Rash Penicillins Allergy (Intermediate, Verified 07/31/25 10:27) Hives HPI HPI asthma: Details: 59-year-old lady, nonsmoker but with exposure to secondhand smoke, with underlying history of elevated right-sided diaphragm, now followed for asthma, MARY, and dyspnea on exertion. She continues to use Advair 230 and albuterol MDI with reasonable control of her asthma symptoms, though she states that her dyspnea exertion is slowly getting worse. She denies recent exacerbations. She continues on CPAP with good control of her underlying sleep apnea, she wants to try nasal mask. [facility] Medical History Fatty liver Numbness Hemorrhoids with complication Gastroparesis Essential hypertension Left shoulder pain Type 2 diabetes mellitus Hyperparathyroidism Erosive esophagitis Hypertension Acute diarrhea Pre-op examination Cervical radiculopathy Rash of foot Kiera albicans infection Cervicalgia Environmental allergies Hospital discharge follow-up MARY on CPAP Elevated red blood cell count Screening for hyperlipidemia Chronic pain syndrome Lumbar pain Encounter for annual routine gynecological examination Multiple air fluid levels of small intestine determined by X-ray Abdominal bloating Hypothyroid Sleep apnea Abdominal cramping Edema Anxiety with depression Chronic pain (Unknown) Left knee pain Hypothyroidism Bilateral shoulder pain Hyperlipidemia LDL goal <70 Degeneration, intervertebral disc, cervical Spondylosis of cervical spine at multiple levels without myelopathy Sleep apnea Renal calculi Incontinence Goiter Disc degeneration, lumbar Spondylosis of lumbar region without myelopathy or radiculopathy Arthropathy of facet joint Insomnia LUDY (generalized anxiety disorder) Moderately severe recurrent major depression Chronic pain syndrome Morbid (severe) obesity due to excess calories Fibromyalgia Small bowel motility disorder Chronic idiopathic constipation Asthma Surgical History History of hemorrhoidectomy (04/26/25) History of esophagogastroduodenoscopy (EGD) (01/02/25) History of knee replacement procedure of right knee History of hernia surgery Hx of colonoscopy History of esophagogastroduodenoscopy (EGD) History of cholecystectomy Delivery by section History of hysterectomy Family History Father Past heart attack Anxiety Mother MOF (multiple organ failure) Brother HIV (human immunodeficiency virus infection) Sister Ovarian cancer Lupus Bone cancer Uterine cancer Tumor Daughter Guillain-[place] Sister Lupus History of open heart surgery Family/Other Depression FH: mental illness Maternal Aunt Breast cancer Maternal Aunt Tumor Social History Household Members: None Household Members Other:: Daughter Housing: Apartment Are you a primary home care administrator to a significant other at home: No Do you presently have visiting nurse or other home services: Yes 75 years or older and lives alone: No Alcohol intake: never Patient Tobacco Use Status: Never used Tobacco e-Cigarette/Vaping Use: Never Used Second Hand Smoke Exposure: No Advance Directives Date on File: 12/08/21 service: No Current occupational status: unemployed and disabled Cognitive needs: Yes Hearing needs: No Vision needs: No Review of Systems Const Denies daytime sleepiness, Denies excessive sweating, Denies fatigue, Denies fever(s), Denies lethargy, Denies malaise, Denies night sweats, Denies snoring and Denies weight loss Eyes Denies blurry vision and Denies itchy eyes ENT Denies nasal congestion, Denies post nasal drip, Denies sinus pain, Denies sinus pressure and Denies other ( Thrush) Card Denies chest pain, Denies pedal edema, Denies dyspnea, Reports dyspnea on exertion, Denies orthopnea and Denies paroxysmal nocturnal dyspnea Resp Denies cough, Denies hemoptysis, Denies excessive phlegm production, Denies dyspnea, Reports dyspnea on exertion, Denies snoring and Denies wheezing GI Denies abdominal pain and Denies heartburn Musc Denies myalgias, Denies arthralgias and Denies joint swelling Skin/Breast Denies rash Neuro Denies memory loss and Denies seizure-like activity Psych Denies abnormal sleep pattern, Denies anxiety and Denies memory loss Endo Denies excessive sweating, Denies fatigue and Denies heat intolerance Dalton/Lymph Denies easy bruising Aller/Immun Denies itchy eyes, Denies seasonal rhinorrhea and Denies wheezing Physical Exam Vital Signs: Last Vital Signs Pulse 79 07/31/25 10:21 BP 142/80 H 07/31/25 10:21 Pulse Ox 96 07/31/25 10:21 Oxygen Delivery Method Room Air 07/31/25 10:21 BMI result Body Mass Index 42.0 Const General: no acute distress and alert Nutritional Appearance: obese Orientation/consciousness: Other orientation findings ( oriented) HEENT Head: Yes atraumatic Eyes General: appearance normal, both eyes and all related structures Sclerae: sclerae normal EOM: EOMs intact bilaterally Neck Neck: Yes supple Lymphatic: no lymphadenopathy noted Resp Effort & Inspection: normal respiratory effort and no use of accessory muscles Auscultation: clear to auscultation bilaterally Cardio Rate: regular rate Rhythm: regular rhythm Heart sounds: no gallops, no murmurs and no rubs Skin General skin exam: other ( warm) Extrem General: No clubbing, No cyanosis and No edema Assessment & Plan Assessment & Plan (1) Exertional dyspnea: Code(s): R06.09 - Other forms of dyspnea Category: Medical Plan: Slowly worsening, appears to have mostly cardiac/deconditioning etiologies. Will obtain cardiopulmonary exercise test. (2) Asthma: Code(s): J45.909 - Unspecified asthma, uncomplicated Category: Medical Qualifiers: Asthma severity: moderate Asthma persistence: persistent Asthma complication type: uncomplicated Qualified Code(s): J45.40 - Moderate persistent asthma, uncomplicated Plan: Well controlled on current regimen Breo and albuterol MDI/nebs. Continue current regimen. (3) MARY (obstructive sleep apnea): Code(s): G47.33 - Obstructive sleep apnea (adult) (pediatric) Category: Medical Plan: Therapy and compliance report reviewed - patient is benefitting from and is compliant with noninvasive positive pressure ventilation treatment, using it greater than 70% of the time, more than 4 hours per night. Continue current CPAP therapy. Orders: Orders CA cardiopulmonary stress test Today R06.09 - Other forms of dyspnea Coding Level of Care Code Est Pt Level 4 (84299) Complex EM visit Add On G2211 Diagnoses Exertional dyspnea R06.09 Moderate persistent asthma without complication J45.40 Asthma severity: moderate Asthma persistence: persistent Asthma complication type: uncomplicated MARY (obstructive sleep apnea) G47.33
== END 2025-07-31 10:40 | disposition home or self-care (01) ==
LOC: HO.HPS 09:50
PROVIDERS: PCP Internal Medicine; Visit Provider Internal Medicine Pulmonary Disease
DX: R06.09 Other forms of dyspnea (principal); J45.40 Moderate persistent asthma, uncomplicated; G47.33 Obstructive sleep apnea (adult) (pediatric)
CPT/HCPCS: 99214

== ENCOUNTER → 2025-07-31 09:49 | Outpatient (BNVA) | payer OTHER, SELFPAY | PROVIDERS: PCP Internal Medicine; Visit Provider Internal Medicine Pulmonary Disease | DX: J45.40 Moderate persistent asthma, uncomplicated (principal); G47.33 Obstructive sleep apnea (adult) (pediatric); Z99.89 Dependence on other enabling machines and devices; R06.09 Other forms of dyspnea | CPT/HCPCS: 99212 ==

== ENCOUNTER 2025-08-01 12:44 | Outpatient (REF) | payer OTHER, SELFPAY ==
[2025-08-01 14:40] LABS: Blood Urea Nitrogen 14 mg/dL (9-16); Estimated Glomerular Filt Rate > 60
== END 2025-08-01 12:45 | disposition home or self-care (01) ==
LOC: HO.LAB 12:44
PROVIDERS: PCP Internal Medicine; Visit Provider Surgery
DX: R10.31 Right lower quadrant pain (principal)
CPT/HCPCS: 36415; 82565; 84520; 99212

== ENCOUNTER 2025-08-01 12:44 | Outpatient (AMB) | payer OTHER, SELFPAY ==
[2025-08-01 12:49] VITALS: BMI 42.0
--- NOTE | 2025-08-01 12:49 | MHC.OFFVIS ---
Vital Signs 08/01/25 12:49 Height 5 ft 7 in Weight 268 lb 0.008 oz BMI 42.0 Intake Visit Reasons: pain hemorrhoidectomy site Intake Note: This patient presents for an assessment for pain hemorrhoidectomy site. Pt c/o; rectal bleeding since hemorrhoidectomy 04/26/2025, reports dizziness, reports bloating, reports she gets the feeling to have a bowel movement and after she is done she feels alleviated and the bloating goes down. Sales Driver Required: No Accompanied by: Self / Same As Patient Allergies adhesive tape (ADHESIVE TAPE) Allergy (Intermediate, Verified 08/01/25 13:04) RASH amoxicillin (AMOXICILLIN) Allergy (Intermediate, Verified 08/01/25 13:04) Hives ibuprofen (From Motrin) Allergy (Intermediate, Verified 08/01/25 13:04) Hypertension latex Allergy (Intermediate, Verified 08/01/25 13:04) Rash Penicillins Allergy (Intermediate, Verified 08/01/25 13:04) Hives Medication List - Last Reconciled 08/01/25 by Jason Lantigua MD acetaminophen ER 650 mg PO Q8H PRN 30 days albuterol sulfate 2.5 mg (3 mL) inhalation Q6H PRN 30 days albuterol sulfate 90 mcg/actuation (Ventolin HFA) 1 puff PO Q4H PRN 30 days atorvastatin 10 mg PO BEDTIME baclofen 10 mg PO BID PRN 30 days blood pressure monitor Use as needed blood pressure test kit-large As directed blood sugar diagnostic (FreeStyle Test strips) Use 1 test strip 4x a day to monitor blood sugars blood-glucose meter (FreeStyle Lite Meter kit) As directed to monitor blood sugars 4x a day blood-glucose sensor (FreeStyle Julianne 3 Plus Sensor device) Use daily As directed to monitor glucose blood-glucose,senior graphic designer,cont (FreeStyle Julianne 3 [place]) Use daily As directed to monitor blood glucose [BP monitor As directed] cetirizine (All Day Allergy (cetirizine)) 10 mg PO DAILY PRN 10 days cholecalciferol (vitamin D3) 50 mcg PO BEDTIME clonazepam 0.5 mg PO TID PRN CPAP (CPAP Machine/Device) As directed docusate sodium (Colace) 100 mg PO BID docusate sodium (Colace) 100 mg PO BID PRN dulaglutide (Trulicity) 1.5 mg (0.5 mL) subcut QWEEK ear thermometer As directed ferrous sulfate 325 mg PO DAILY 90 days fluticasone furoate-vilanterol 200-25 mcg/dose (Breo Ellipta) 1 inh inhalation DAILY 30 days gabapentin 300 mg PO .nightly 90 days glucose (Dex4 Glucose) 16 grams (4 x 4 gram) PO Q15M PRN heating pads (Advocate Heating Pad) As directed hydrocortisone 2.5% (Proctosol HC) 1 appl RI BID-QID PRN hydroxyzine HCl 50 mg PO TID hyoscyamine sulfate 0.125 mg sublingual Q2-4H PRN insulin glargine (Lantus Solostar U-100 Insulin) 15 units (0.15 mL) subcut QAM insulin lispro (Humalog KwikPen (U-100) Insulin) 5 units (0.05 mL) subcut DAILY@1700 lancets (FreeStyle Lancets) use to monitor blood sugars 4x a day levothyroxine 112 mcg PO DAILY@0600 loperamide (Anti-Diarrheal (loperamide)) 2 mg PO Q6H PRN magnesium oxide 400 mg PO BEDTIME 90 days meclizine 25 mg PO DAILY PRN 90 days metoclopramide HCl 10 mg PO TIDAC metoprolol succinate ER 50 mg PO DAILY 90 days nebulizers As directed nystatin 1 appl topical DAILY 2 weeks ondansetron 4 mg PO Q8H PRN 30 days pantoprazole 40 mg PO BID paroxetine HCl 40 mg PO DAILY pen needle, diabetic (BD Rosario 2nd Gen Pen Needle) use 2x daily As directed polyethylene glycol 3350 17 grams PO BID promethazine (Promethegan) 25 mg RI Q6H PRN [recliner As directed] rizatriptan 10 mg PO ONCE PRN 30 days salicylic acid 2% (Acne Control (salicylic acid)) 1 appl topical Q OTHER DAY PRN 30 days [shower chair As directed] [toilet safety frame As directed] trazodone 150 mg PO BEDTIME HPI HPI pain hemorrhoidectomy site: Details: She had undergone hemorrhoidectomy for large hemorrhoids last April,. She says she has been passing bright blood per rectum an until now. Furthermore, she says she notice pelvic pain in whenever she has a bowel movement. She feels bloated periodically. She has good oral intake otherwise. She says she still has pain in the anus frequently. [facility] Medical History Fatty liver Numbness Hemorrhoids with complication Gastroparesis Essential hypertension Left shoulder pain Type 2 diabetes mellitus Hyperparathyroidism Erosive esophagitis Hypertension Acute diarrhea Pre-op examination Cervical radiculopathy Rash of foot Kiera albicans infection Cervicalgia Environmental allergies Hospital discharge follow-up MARY on CPAP Elevated red blood cell count Screening for hyperlipidemia Chronic pain syndrome Lumbar pain Encounter for annual routine gynecological examination Multiple air fluid levels of small intestine determined by X-ray Abdominal bloating Hypothyroid Sleep apnea Abdominal cramping Edema Anxiety with depression Chronic pain (Unknown) Left knee pain Hypothyroidism Bilateral shoulder pain Hyperlipidemia LDL goal <70 Degeneration, intervertebral disc, cervical Spondylosis of cervical spine at multiple levels without myelopathy Sleep apnea Renal calculi Incontinence Goiter Disc degeneration, lumbar Spondylosis of lumbar region without myelopathy or radiculopathy Arthropathy of facet joint Insomnia LUDY (generalized anxiety disorder) Moderately severe recurrent major depression Chronic pain syndrome Morbid (severe) obesity due to excess calories Fibromyalgia Small bowel motility disorder Chronic idiopathic constipation Asthma Surgical History History of hemorrhoidectomy (04/26/25) History of esophagogastroduodenoscopy (EGD) (01/02/25) History of knee replacement procedure of right knee History of hernia surgery Hx of colonoscopy History of esophagogastroduodenoscopy (EGD) History of cholecystectomy Delivery by section History of hysterectomy Family History Father Past heart attack Anxiety Mother MOF (multiple organ failure) Brother HIV (human immunodeficiency virus infection) Sister Ovarian cancer Lupus Bone cancer Uterine cancer Tumor Daughter Guillain-[place] Sister Lupus History of open heart surgery Family/Other Depression FH: mental illness Maternal Aunt Breast cancer Maternal Aunt Tumor Social History Household Members: None Household Members Other:: Daughter Housing: Apartment Are you a primary complex care nurse practitioner to a significant other at home: No Do you presently have visiting nurse or other home services: Yes 75 years or older and lives alone: No Alcohol intake: never Patient Tobacco Use Status: Never used Tobacco e-Cigarette/Vaping Use: Never Used Second Hand Smoke Exposure: No Advance Directives Date on File: 12/08/21 service: No Current occupational status: unemployed and disabled Cognitive needs: Yes Hearing needs: No Vision needs: No Review of Systems Const Denies chills and Denies fever(s) Card Denies chest pain at rest Resp Denies cough GI Reports hematochezia Physical Exam Vital Signs: BMI result Body Mass Index 42.0 Const General: comfortable and no acute distress Resp Effort & Inspection: normal respiratory effort Cardio Rate: regular rate GI Palpation (GI): Soft to palpation, not firm and no guarding Assessment & Plan Assessment & Plan (1) Abdominal pain: Code(s): R10.9 - Unspecified abdominal pain Category: Medical Qualifiers: Abdominal location: right lower quadrant Qualified Code(s): R10.31 - Right lower quadrant pain Plan: She describes continue lower abdominal pain as well as passage of blood per rectum even after her hemorrhoidectomy last April,. She is unable to tolerate a digital and anoscopic exam because of tenderness. Rectal exam otherwise does not reveal any perianal redness or swelling I am going to order for a CAT scan of the abdomen and pelvis. I will see her in the office after that to re-evaluate her. She is comfortable with the plan. I am also going to prescribe her tramadol for pain. Coding Level of Care Code Est Pt Level 3 (85890) Diagnoses Right lower quadrant abdominal pain R10.31 Abdominal location: right lower quadrant
== END 2025-08-01 13:28 | disposition home or self-care (01) ==
LOC: HO.HGS 12:45
PROVIDERS: PCP Internal Medicine; Visit Provider Surgery
DX: R10.31 Right lower quadrant pain (principal)
CPT/HCPCS: 99213

== ENCOUNTER 2025-08-02 17:27 | Emergency (ER) | payer OTHER, SELFPAY ==
--- NOTE | ~2025-08-02 | CT_ITS ---
CLINICAL HISTORY: rectal pain, pelvis pressure CT abdomen and pelvis with contrast Comparison: CT/SR - CT ABDOMEN PELVIS W IV CON - 06/19/25 16:48 EDT Findings: Stable significant elevation of the right hemidiaphragm with associated compressive atelectasis in the right lung base. No pleural effusion. The gallbladder is surgically absent. No biliary ductal dilatation. The liver, spleen, pancreas, adrenal glands and kidneys are unremarkable. No ureteral stones and no hydronephrosis or hydroureter. No perinephric stranding. No bowel obstruction, pneumoperitoneum, or pneumatosis. Normal appendix. No free fluid or loculated fluid collection. No rectal or perirectal abnormality. Previous hysterectomy. Urinary bladder within normal limits. Abdominal aorta normal in size No acute fracture. Degenerative disc disease at L5-S1. IMPRESSION: 1. No acute findings. No rectal or perirectal abnormality. 2. Stable nonacute findings as described. This document has been electronically signed by: Sophy Boudreaux MD on 08/03/2025 00:20:41
[2025-08-02 18:06] VITALS: BP 140/100; PULSE 78; RESP 18; TEMP 37; O2SAT 95; BMI 45.0
--- NOTE | 2025-08-02 18:14 | ED.GENADULT ---
HPI - General Adult General Chief complaint: GI Bleed Stated complaint: Blood on stool Time Seen by Provider: 08/02/25 21:05 Related Data Home Medications ?Medication ?Instructions ?Recorded ?Confirmed CPAP (CPAP Machine/Device) 03/01/24 08/01/25 nebulizers 03/01/24 08/01/25 docusate sodium 100 mg capsule 100 mg PO BID PRN Constipation 12/01/24 08/01/25 (Colace) clonazepam 1 mg tablet 0.5 mg PO TID PRN anxiety 01/18/25 08/01/25 hydroxyzine HCl 50 mg tablet 50 mg PO TID 01/18/25 08/01/25 paroxetine HCl 40 mg tablet 40 mg PO DAILY 01/18/25 08/01/25 trazodone 150 mg tablet 150 mg PO BEDTIME 01/18/25 08/01/25 Previous Rx's ?Medication ?Instructions ?Recorded glucose 4 gram chewable tablet 16 g (4 x 4 gram) PO Q15M PRN 05/12/24 (Dex4 Glucose) hypoglycemia #100 tabs ear thermometer #6 ea 06/30/24 BP monitor #1 ea 07/12/24 blood pressure monitor #1 ea 07/13/24 blood pressure test kit-large #1 ea 08/11/24 recliner #1 ea 08/11/24 loperamide 2 mg capsule 2 mg PO Q6H PRN loose stool #16 12/03/24 (Anti-Diarrheal (loperamide)) caps pen needle, diabetic 32 gauge x #100 ea 12/07/24 (BD Rosario 2nd Gen Pen Needle) promethazine 25 mg rectal 25 mg NE Q6H PRN nausea and 12/24/24 suppository (Promethegan) vomiting #20 ea ondansetron 4 mg disintegrating 4 mg PO Q8H PRN Nausea 30 days #90 01/15/25 tablet tabs polyethylene glycol 3350 17 gram 17 g PO BID #60 ea 01/22/25 oral powder packet nystatin 100,000 unit/gram topical 1 appl topical DAILY 2 weeks #30 02/01/25 powder grams ferrous sulfate 325 mg (65 mg 325 mg PO DAILY 90 days #90 tabs 03/15/25 iron) tablet magnesium oxide 400 mg (241.3 mg 400 mg PO BEDTIME 90 days #90 tabs 03/29/25 magnesium) tablet docusate sodium 100 mg capsule 100 mg PO BID #60 caps 04/26/25 (Colace) shower chair #1 ea 05/07/25 toilet safety frame #1 ea 05/07/25 insulin glargine 100 unit/mL (3 15 unit (0.15 mL) subcut QAM #15 mL 05/14/25 mL) subcutaneous pen (Lantus Solostar U-100 Insulin) insulin lispro 100 unit/mL 5 unit (0.05 mL) subcut DAILY@1700 05/14/25 subcutaneous pen (Humalog KwikPen #15 mL (U-100) Insulin) hyoscyamine sulfate 0.125 mg 0.125 mg sublingual Q2-4H PRN for 05/17/25 sublingual tablet indigestion #60 ea meclizine 25 mg tablet 25 mg PO DAILY PRN dizziness 90 05/17/25 days #90 tabs rizatriptan 10 mg tablet 10 mg PO ONCE PRN migraine 05/17/25 headache 30 days #5 tabs atorvastatin 10 mg tablet 10 mg PO BEDTIME #90 tabs 05/28/25 acetaminophen 650 mg 650 mg PO Q8H PRN arthritis 30 05/30/25 tablet,extended release days #90 tabs heating pads (Advocate Heating Pad) #1 ea 06/12/25 cholecalciferol (vitamin D3) 50 50 mcg PO BEDTIME #90 caps 06/13/25 mcg (2,000 unit) capsule metoprolol succinate 50 mg 50 mg PO DAILY 90 days #90 tabs 06/18/25 tablet,extended release 24 hr blood sugar diagnostic (FreeStyle #300 ea 06/20/25 Test strips) blood-glucose meter (FreeStyle #1 ea 06/20/25 Lite Meter kit) lancets 28 gauge (FreeStyle #300 ea 06/20/25 Lancets) blood-glucose sensor (FreeStyle #2 ea 06/27/25 Julianne 3 Plus Sensor device) blood-glucose,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 estate 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 manager,cont #1 ea 06/27/25 (FreeStyle Julianne 3 Dobson) metoclopramide HCl 10 mg tablet 10 mg PO TIDAC #90 tabs 06/27/25 baclofen 10 mg tablet 10 mg PO BID PRN muscle spasm 30 07/12/25 days #60 tabs gabapentin 300 mg capsule 300 mg PO .nightly 90 days #90 caps 07/12/25 hydrocortisone 2.5 % topical cream 1 appl NE BID-QID PRN hemorrhoids 07/12/25 with perineal applicator #30 grams (Proctosol HC) levothyroxine 112 mcg tablet 112 mcg PO DAILY@0600 #90 tabs 07/12/25 dulaglutide 1.5 mg/0.5 mL 1.5 mg (0.5 mL) subcut QWEEK #2 mL 07/13/25 subcutaneous pen injector (Trulicity) cetirizine 10 mg tablet (All Day 10 mg PO DAILY PRN allergy 07/16/25 Allergy (cetirizine)) symptoms 10 days #10 tabs pantoprazole 40 mg tablet,delayed 40 mg PO BID #60 tabs 07/18/25 release salicylic acid 2 % topical 1 appl topical Q OTHER DAY PRN 07/23/25 cleanser (Acne Control (salicylic acne 30 days #237 mL acid)) albuterol sulfate 2.5 mg/3 mL 2.5 mg (3 mL) inhalation Q6H PRN 07/31/25 (0.083 %) solution for nebulization shortness of breath or wheezing 30 days #180 mL albuterol sulfate 90 mcg/actuation 1 puff PO Q4H PRN for wheezing 30 07/31/25 aerosol inhaler (Ventolin HFA) days #54 ea fluticasone furoate 200 1 inh inhalation DAILY 30 days #1 07/31/25 mcg-vilanterol 25 mcg/dose ea inhalation powder (Breo Ellipta) tramadol 50 mg tablet 50 mg PO TID PRN pain #15 tabs 08/01/25 Allergies Allergy/AdvReac Type Severity Reaction Status Date / Time adhesive tape (ADHESIVE TAPE) Allergy Intermediate RASH Verified 08/02/25 18:06 amoxicillin (AMOXICILLIN) Allergy Intermediate Hives Verified 08/02/25 18:06 ibuprofen (From Motrin) Allergy Intermediate Hypertensio Verified 08/02/25 18:06 n latex Allergy Intermediate Rash Verified 08/02/25 18:06 Penicillins Allergy Intermediate Hives Verified 08/02/25 18:06 [facility] Past Medical History Medical History Lower abdominal pain Fatty liver Numbness Hemorrhoids with complication Gastroparesis Essential hypertension Left shoulder pain Type 2 diabetes mellitus Hyperparathyroidism Erosive esophagitis Hypertension Acute diarrhea Pre-op examination Cervical radiculopathy Rash of foot [place] albicans infection Cervicalgia Environmental allergies Hospital discharge follow-up MARY on CPAP Elevated red blood cell count Screening for hyperlipidemia Chronic pain syndrome Lumbar pain Encounter for annual routine gynecological examination Multiple air fluid levels of small intestine determined by X-ray Abdominal bloating Hypothyroid Sleep apnea Abdominal cramping Edema Anxiety with depression Chronic pain (Unknown) Left knee pain Hypothyroidism Bilateral shoulder pain Hyperlipidemia LDL goal <70 Degeneration, intervertebral disc, cervical Spondylosis of cervical spine at multiple levels without myelopathy Sleep apnea Renal calculi Incontinence Goiter Disc degeneration, lumbar Spondylosis of lumbar region without myelopathy or radiculopathy Arthropathy of facet joint Insomnia LUDY (generalized anxiety disorder) Moderately severe recurrent major depression Chronic pain syndrome Morbid (severe) obesity due to excess calories Fibromyalgia Small bowel motility disorder Chronic idiopathic constipation Asthma Surgical History History of hemorrhoidectomy (04/26/25) History of esophagogastroduodenoscopy (EGD) (01/02/25) History of knee replacement procedure of right knee History of hernia surgery Hx of colonoscopy History of esophagogastroduodenoscopy (EGD) History of cholecystectomy Delivery by section History of hysterectomy Family History Family History Father Past heart attack Anxiety Mother MOF (multiple organ failure) Brother HIV (human immunodeficiency virus infection) Sister Ovarian cancer Lupus Bone cancer Uterine cancer Tumor Daughter Guillain-[place] Sister Lupus History of open heart surgery Family/Other Depression FH: mental illness Maternal Aunt Breast cancer Maternal Aunt Tumor Social History Social History Household Members: None Household Members Other:: Daughter Housing: Apartment Are you a primary intensive care unit nurse to a significant other at home: No Do you presently have visiting nurse or other home services: Yes 75 years or older and lives alone: No Alcohol intake: never Patient Tobacco Use Status: Never used Tobacco e-Cigarette/Vaping Use: Never Used Second Hand Smoke Exposure: No Advance Directives Date on File: 12/08/21 service: No Current occupational status: unemployed and disabled Cognitive needs: Yes Hearing needs: No Vision needs: No Physical Exam ED Vital Signs: Vital Signs - 24 hr 08/02/25 18:06 08/02/25 21:16 08/03/25 00:39 Temperature 98.6 F 98.1 F Pulse Rate 78 68 83 Respiratory Rate 18 19 Blood Pressure 140/100 H 142/53 H 147/62 H Pulse Oximetry 95 95 Oxygen Delivery Method Room Air Room Air 08/03/25 00:40 08/03/25 00:42 08/03/25 00:44 Temperature 98.2 F Pulse Rate 85 99 85 Respiratory Rate 16 Blood Pressure 149/67 H 153/81 H 149/67 H Pulse Oximetry 96 Oxygen Delivery Method Room Air BMI result Body Mass Index 45.0 Course Course Course Narrative: RmE: Patient 10 year female history of hemorrhoids presents to ED for rectal bleeding. Patient was informed by her surgeon who performed rectally 3 months ago to come to the ED for evaluation. Patient denies any abdominal pain. Medications Administered Discontinued Medications Generic Name Dose Route Start Last Admin Trade Name Freq PRN Reason Stop Dose Admin Iohexol 100 ml 08/02/25 22:57 08/02/25 23:01 Iohexol 350 Mg/Ml 100 Ml Infus..Btl IV 08/02/25 22:58 100 ml ONCE ONE Administration Lidocaine 1 appl 08/02/25 21:52 08/02/25 23:13 Lidocaine 5 % Ointment 35 Gm TOPICAL 1 appl Q6H PRN Administration Perineal Discomfort Protocol Medical Decision Making Lab Data 08/02/25 18:23 08/02/25 18:23 Labs: Lab Results 08/02/25 08/02/25 08/02/25 Range/Units 18:23 21:50 22:01 WBC 12.2 H (4.8-10.8) X10*3/uL RBC 5.25 (4.20-5.50) X10*6/uL Hgb 12.6 (12.0-16.0) g/dl Hct 41.9 (37.0-47.0) % MCV 79.8 L (80.0-98.0) fL MCH 24.0 L (27.0-33.0) pg MCHC 30.1 L (31.0-35.0) g/dl RDW 17.2 H (11.0-16.0) % Plt Count 209 D (160-400) X10*3/uL MPV 10.9 (9.4-12.3) fL Immature Gran % (Auto) 1.3 H (0.0-0.4) % Neut % (Auto) 71.4 (45-73) % Lymph % (Auto) 19.1 L (20-40) % [place] % (Auto) 5.7 (2-11) % Eos % (Auto) 2.2 (0-4) % Baso % (Auto) 0.3 (0-2) % Lymph # (Auto) 2.3 (1.2-4.9) X10*3/uL [place] # (Auto) 0.7 (0.1-1.2) X10*3/uL Eos # (Auto) 0.3 (0.0-0.4) X10*3/uL Baso # (Auto) 0.0 (0.0-0.2) X10*3/uL Abs Immat Gran (auto) 0.16 H (0.00-0.03) X10*3/uL Absolute Neuts (auto) 8.7 H (2.0-8.3) x10*3/uL Absolute Nucleated RBC 0.000 (0.0-0.012) X10*3/uL Nucleated RBC % (auto) 0.0 (0.0-0.2) /100WBC Sodium 142 (135-145) mmol/L Potassium 4.6 (3.3-5.1) mmol/L Chloride 109 H (96-108) mmol/L Carbon Dioxide 27 (22-29) mmol/L Anion Gap 11 L (12-20) BUN 17 H (9-16) mg/dL Creatinine 0.80 (0.5-1.4) mg/dL Estim Creat Clear Calc 96.1 Estimated GFR > 60 Random Glucose 98 (60-115) mg/dL Calcium 9.4 (8.4-10.2) mg/dL Total Bilirubin 0.3 (0.0-1.0) mg/dL AST 14 (5-31) U/L ALT 14 (0-31) U/L Alkaline Phosphatase 105 (39-117) U/L Total Protein 7.5 (6.5-8.0) g/dL Albumin 4.0 (3.5-5.0) g/dL Urine Color Yellow Urine Appearance Clear Urine pH 5.0 (5.0-9.0) Ur Specific [place] >= 1.030 H (1.005-1.025) Urine Protein Negative (Neg-Trace) mg/dL Urine Glucose (UA) Negative (Negative) mg/dL Urine Ketones Negative (Negative) mg/dL Urine Blood Negative (Negative) Urine Nitrite Negative (Negative) Ur Leukocyte Esterase Negative (Negative) Stool Occult Blood Cancelled Discharge Plan Discharge Clinical Impression: Pain in rectum Patient Disposition: Home, Self-Care Instructions: Sitz Bath (DC), Rectal Pain (ED) Additional Instructions: Please follow-up with your primary care physician tomorrow. If you have any worsening or new symptoms, please return to the emergency room or call 911 Prescriptions: No Action (DME) ear thermometer Misc See Rx Instructions .Route Qty: 6 0RF Rx Instructions: As directed (DME) BP monitor large See Rx Instructions .Route .MEDSUPPLY Qty: 1 0RF Rx Instructions: As directed (DME) blood pressure monitor Kit See Rx Instructions .Route Qty: 1 0RF Rx Instructions: Use as needed (DME) blood pressure test kit-large Kit See Rx Instructions .ROUTE .MEDSUPPLY Qty: 1 0RF Rx Instructions: As directed (DME) recliner See Rx Instructions .Route .MEDSUPPLY Qty: 1 0RF Rx Instructions: As directed (DME) pen needle, diabetic [BD Rosario 2nd Gen Pen Needle] 32 gauge x 5/32 needle See Rx Instructions .Route Qty: 100 3RF Rx Instructions: use 2x daily As directed ondansetron 4 mg tablet,disintegrating 4 mg PO Q8H PRN (Reason: Nausea) 30 Days Qty: 90 0RF nystatin 100,000 unit/gram powder 1 appl topical DAILY 14 Days Qty: 30 1RF ferrous sulfate 325 mg (65 mg iron) tablet 325 mg PO DAILY 90 Days Qty: 90 1RF magnesium oxide 400 mg (241.3 mg magnesium) tablet 400 mg PO BEDTIME 90 Days Qty: 90 1RF (DME) shower chair See Rx Instructions .Route .MEDSUPPLY Qty: 1 0RF Rx Instructions: As directed (DME) toilet safety frame See Rx Instructions .Route .MEDSUPPLY Qty: 1 0RF Rx Instructions: As directed insulin glargine [Lantus Solostar U-100 Insulin] 100 unit/mL (3 mL) insulin pen 15 unit subcut QAM Qty: 15 3RF insulin lispro [Humalog KwikPen Insulin] 100 unit/mL insulin pen 5 unit subcut DAILY@1700 Qty: 15 3RF Rx Instructions: with supper hyoscyamine sulfate 0.125 mg tablet, sublingual 0.125 mg sublingual Q2-4H PRN (Reason: for indigestion) Qty: 60 0RF rizatriptan 10 mg tablet 10 mg PO ONCE PRN (Reason: migraine headache) 30 Days Qty: 5 3RF meclizine 25 mg tablet 25 mg PO DAILY PRN (Reason: dizziness) 90 Days Qty: 90 0RF atorvastatin 10 mg tablet 10 mg PO BEDTIME Qty: 90 1RF acetaminophen 650 mg tablet extended release 650 mg PO Q8H PRN (Reason: arthritis) 30 Days Qty: 90 1RF (DME) heating pads [Advocate Heating Pad] Pad See Rx Instructions .Route Qty: 1 0RF Rx Instructions: As directed cholecalciferol (vitamin D3) 50 mcg (2,000 unit) capsule 50 mcg PO BEDTIME Qty: 90 0RF metoprolol succinate 50 mg tablet extended release 24 hr 50 mg PO DAILY 90 Days Qty: 90 1RF (DME) FreeStyle Test Strip See Rx Instructions .Route Qty: 300 3RF Rx Instructions: Use 1 test strip 4x a day to monitor blood sugars (DME) blood-glucose meter [FreeStyle Lite Meter] Kit See Rx Instructions .Route Qty: 1 0RF Rx Instructions: As directed to monitor blood sugars 4x a day (DME) lancets [FreeStyle Lancets] 28 gauge misc See Rx Instructions .Route Qty: 300 3RF Rx Instructions: use to monitor blood sugars 4x a day metoclopramide HCl 10 mg tablet 10 mg PO TIDAC Qty: 90 0RF (DME) FreeStyle Julianne 3 Plus Sensor Device See Rx Instructions .MEDSUPPLY Qty: 2 5RF Rx Instructions: Use daily As directed to monitor glucose (DME) FreeStyle Julianne 3 Dobson Misc See Rx Instructions .MEDSUPPLY Qty: 1 0RF Rx Instructions: Use daily As directed to monitor blood glucose gabapentin 300 mg capsule 300 mg PO .nightly 90 Days Qty: 90 1RF levothyroxine 112 mcg tablet 112 mcg PO DAILY@0600 Qty: 90 1RF baclofen 10 mg tablet 10 mg PO BID PRN (Reason: muscle spasm) 30 Days Qty: 60 1RF hydrocortisone [Proctosol HC] 2.5 % cream with perineal applicator 1 appl NE BID-QID PRN (Reason: hemorrhoids) Qty: 30 0RF Trulicity 1.5 mg/0.5 mL pen injector 1.5 mg subcut QWEEK Qty: 2 0RF cetirizine [All Day Allergy (cetirizine)] 10 mg tablet 10 mg PO DAILY PRN (Reason: allergy symptoms) 10 Days Qty: 10 0RF pantoprazole 40 mg tablet,delayed release (DR/EC) 40 mg PO BID Qty: 60 3RF Acne Control (salicylic acid) 2 % cleanser 1 appl topical Q OTHER DAY PRN (Reason: acne) 30 Days Qty: 237 0RF albuterol sulfate 2.5 mg /3 mL (0.083 %) solution for nebulization 2.5 mg inhalation Q6H PRN (Reason: shortness of breath or wheezing) 30 Days Qty: 180 11RF albuterol sulfate [Ventolin HFA] 90 mcg/actuation HFA aerosol inhaler 1 puff PO Q4H PRN (Reason: for wheezing) 30 Days Qty: 54 1RF fluticasone furoate-vilanterol [Breo Ellipta] 200-25 mcg/dose blister with device 1 inh inhalation DAILY 30 Days Qty: 1 0RF docusate sodium [Colace] 100 mg capsule 100 mg PO BID PRN (Reason: Constipation) loperamide [Anti-Diarrheal (loperamide)] 2 mg capsule 2 mg PO Q6H PRN (Reason: loose stool) Qty: 16 0RF promethazine [Promethegan] 25 mg suppository 25 mg NE Q6H PRN (Reason: nausea and vomiting) Qty: 20 0RF clonazepam 1 mg tablet 0.5 mg PO TID PRN (Reason: anxiety) Rx Instructions: TAKE 1/2 TABLET BY MOUTH THREE TIMES A DAY NEEDED ANXIETY (REPLACES LORAZEPAM) hydroxyzine HCl 50 mg tablet 50 mg PO TID trazodone 150 mg tablet 150 mg PO BEDTIME paroxetine HCl 40 mg tablet 40 mg PO DAILY polyethylene glycol 3350 17 gram Powder In Packet 17 g PO BID Qty: 60 0RF docusate sodium [Colace] 100 mg capsule 100 mg PO BID Qty: 60 2RF tramadol 50 mg tablet 50 mg PO TID PRN (Reason: pain) Qty: 15 0RF (DME) nebulizers Kit See Rx Instructions .Route Rx Instructions: As directed (DME) CPAP Machine/Device Device See Rx Instructions .Route Rx Instructions: As directed glucose [Dex4 Glucose] 4 gram tablet,chewable 16 g PO Q15M PRN (Reason: hypoglycemia) Qty: 100 0RF Rx Instructions: until symptoms of low blood sugar are controlled Referrals: Jason Lantigua MD [Physician, General Surgery] Interventions: ED Discharge Assessment Last Done: 08/03/25 02:22 Discharge Date/Time: 08/03/25 02:22 Print Language: [place]ib[place]
[2025-08-02 18:28] LABS: MANUAL DIFF FLAG NO
[2025-08-02 18:47] LABS: Alanine Aminotransferase 14 U/L (0-31); Albumin Level 4.0 g/dL (3.5-5.0); Alkaline Phosphatase 105 U/L (39-117); Anion Gap 11 (12-20); Aspartate Amino Transferase 14 U/L (5-31); Blood Urea Nitrogen 17 mg/dL (9-16); Calcium 9.4 mg/dL (8.4-10.2); Carbon Dioxide 27 mmol/L (22-29); Chloride 109 mmol/L (96-108); Creatinine Clr Calc Pharmacy 96.1; Estimated Glomerular Filt Rate > 60; Potassium 4.6 mmol/L (3.3-5.1); Sodium 142 mmol/L (135-145); Total Protein 7.5 g/dL (6.5-8.0)
[2025-08-02 18:56] LABS: Hematocrit 41.9 % (37.0-47.0); Hemoglobin 12.6 g/dl (12.0-16.0); Imm Gran Abs Auto 0.16 X10*3/uL (0.00-0.03); Imm Gran Pct Auto 1.3 % (0.0-0.4); Lymphocytes Absolute Auto 2.3 X10*3/uL (1.2-4.9); Mean Corpuscular HGB Conc 30.1 g/dl (31.0-35.0); Mean Corpuscular Hemoglobin 24.0 pg (27.0-33.0); Mean Corpuscular Volume 79.8 fL (80.0-98.0); NRBC Abs Auto 0.000 X10*3/uL (0.0-0.012); NRBC Pct Auto 0.0 /100WBC (0.0-0.2); Platelet Count 209 X10*3/uL (160-400); Red Blood Count 5.25 X10*6/uL (4.20-5.50); White Blood Count 12.2 X10*3/uL (4.8-10.8)
[2025-08-02 21:16] VITALS: BP 142/53; PULSE 68; RESP 19; TEMP 36.7; O2SAT 95
--- NOTE | 2025-08-02 21:57 | ED_ITS ---
HPI - GI Bleed General Chief complaint: GI Bleed Stated complaint: Blood on stool Time Seen by Provider: 08/02/25 21:05 Source: patient Mode of arrival: ambulatory Limitations: no limitations History of Present Illness ED Provider: Dr. Clau Neal HPI Narrative: Patient comes to the emergency room complaining of rectal bleeding. According to the patient admitted months ago she had internal hemorrhoids surgery. Patient states she was expected to stopped bleeding within 2 months of his surgery. However, patient is under 10 month and continues having intermittent rectal bleeding. Patient states that today she has a lot of tenderness. Patient denies external hemorrhoids. Patient states that she went to see Dr. Lantigua from surgery yesterday. The plan was to get a CAT scan palpation and then has a follow-up with Dr. Lantigua. However, patient states that today she was feeling quite a bit and states that she was asked by surgery to come to the emergency room. Patient denies fever chills, denies weight loss. Related Data Home Medications ?Medication ?Instructions ?Recorded ?Confirmed CPAP (CPAP Machine/Device) 03/01/24 08/01/25 nebulizers 03/01/24 08/01/25 docusate sodium 100 mg capsule 100 mg PO BID PRN Const ipation 12/01/24 08/01/25 (Colace) clonazepam 1 mg tablet 0.5 mg PO TID PRN anxiety 08/01/25 hydroxyzine HCl 50 mg tablet 50 mg PO TID 01/18/25 paroxetine HCl 40 mg tablet 40 mg PO DAILY 01/18/25 trazodone 150 mg tablet 150 mg PO BEDTIME 01/18/25 1 Previous Rx's ?Medication ?Instructions ?Recorded glucose 4 gram chewable tablet 16 g (4 x 4 gram) PO Q1 5M PRN 05/12/24 (Dex4 Glucose) hypoglycemia #100 tabs ear thermometer #6 ea 06/30/24 BP monitor #1 ea 07/12/24 blood pressure monitor #1 ea 07/13/24 blood pressure test kit-large #1 ea 08/11/24 recliner #1 ea 08/11/24 loperamide 2 mg capsule 2 mg PO Q6H PRN loose stool #16 12/03/24 (Anti-Diarrheal (loperamide)) caps pen needle, diabetic 32 gauge x #100 ea 12/07/24 5/32 (BD Rosario 2nd Gen Pen Needle) promethazine 25 mg rectal 25 mg SD Q6H PRN nausea and 12/24/24 suppository (Promethegan) vomiting #20 ea ondansetron 4 mg disintegrating 4 mg PO Q8H PRN Nausea 30 days #90 01/15/25 tablet tabs polyethylene glycol 3350 17 gram 17 g PO BID #60 ea oral powder packet nystatin 100,000 unit/gram topical 1 appl topical RANDY Y 2 weeks #30 02/01/25 powder grams ferrous sulfate 325 mg (65 mg 325 mg PO DAILY 90 days #90 tabs 03/15/25 iron) tablet magnesium oxide 400 mg (241.3 mg 400 mg PO BEDTIME 90 days #90 tabs 03/29/25 magnesium) tablet docusate sodium 100 mg capsule 100 mg PO BID #60 caps 04/26/25 (Colace) shower chair #1 ea 05/07/25 toilet safety frame #1 ea 05/07/25 insulin glargine 100 unit/mL (3 15 unit (0.15 mL) subc ut QAM #15 mL 05/14/25 mL) subcutaneous pen (Lantus Solostar U-100 Insulin) insulin lispro 100 unit/mL 5 unit (0.05 mL) subcut LITZY LY@1700 05/14/25 subcutaneous pen (Humalog KwikPen #15 mL (U-100) Insulin) hyoscyamine sulfate 0.125 mg 0.125 mg sublingual Q2-4H PRN for 05/17/25 sublingual tablet indigestion #60 ea meclizine 25 mg tablet 25 mg PO DAILY PRN dizziness 90 05/17/25 days #90 tabs rizatriptan 10 mg tablet 10 mg PO ONCE PRN migraine 0 05/17/25 headache 30 days #5 tabs atorvastatin 10 mg tablet 10 mg PO BEDTIME #90 tabs acetaminophen 650 mg 650 mg PO Q8H PRN arthritis 30 05/30/25 tablet,extended release days #90 tabs heating pads (Advocate Heating Pad) #1 ea 06/12/25 cholecalciferol (vitamin D3) 50 50 mcg PO BEDTIME #90 caps 06/13/25 mcg (2,000 unit) capsule metoprolol succinate 50 mg 50 mg PO DAILY 90 days #90 tabs 06/18/25 tablet,extended release 24 hr blood sugar diagnostic (FreeStyle #300 ea 06/20/25 Test strips) blood-glucose meter (FreeStyle #1 ea 06/20/25 Lite Meter kit) lancets 28 gauge (FreeStyle #300 ea 06/20/25 Lancets) blood-glucose sensor (FreeStyle #2 ea 06/27/25 Julianne 3 Plus Sensor device) blood-glucose,drain cleaner,cont #1 ea 06/27/25 (FreeStyle Julianne 3 [place]) metoclopramide HCl 10 mg tablet 10 mg PO TIDAC #90 tab s 06/27/25 baclofen 10 mg tablet 10 mg PO BID PRN muscle spas m 30 07/12/25 days #60 tabs gabapentin 300 mg capsule 300 mg PO .nightly 90 days # 90 caps 07/12/25 hydrocortisone 2.5 % topical cream 1 appl SD BID-QID P RN hemorrhoids 07/12/25 with perineal applicator #30 grams (Proctosol HC) levothyroxine 112 mcg tablet 112 mcg PO DAILY@0600 #90 tabs 07/12/25 dulaglutide 1.5 mg/0.5 mL 1.5 mg (0.5 mL) subcut QWEEK #2 mL 07/13/25 subcutaneous pen injector ([facility]) cetirizine 10 mg tablet (All Day 10 mg PO DAILY PRN al lergy 07/16/25 Allergy (cetirizine)) symptoms 10 days #10 tabs pantoprazole 40 mg tablet,delayed 40 mg PO BID #60 tab s 07/18/25 release salicylic acid 2 % topical 1 appl topical Q OTHER DAY PRN 07/23/25 cleanser (Acne Control (salicylic acne 30 days #237 mL acid)) albuterol sulfate 2.5 mg/3 mL 2.5 mg (3 mL) inhalation Q6H PRN 07/31/25 (0.083 %) solution for nebulization shortness of breat h or wheezing 30 days #180 mL albuterol sulfate 90 mcg/actuation 1 puff PO Q4H PRN f or wheezing 30 07/31/25 aerosol inhaler (Ventolin HFA) days #54 ea fluticasone furoate 200 1 inh inhalation DAILY 30 da ys #1 07/31/25 mcg-vilanterol 25 mcg/dose ea inhalation powder (Breo Ellipta) tramadol 50 mg tablet 50 mg PO TID PRN pain #15 ta bs 08/01/25 Allergies Allergy/AdvReac Type Severity Reaction Status Date / Time adhesive tape (ADHESIVE TAPE) Allergy Intermediate RASH Verified 08/02/25 18:06 amoxicillin (AMOXICILLIN) Allergy Intermediate Hives Verified 08/02/25 18:06 ibuprofen (From Motrin) Allergy Intermediate Hypertensio Verified 08/02/25 18:06 n latex Allergy Intermediate Rash Verified 08/02/25 18:06 Penicillins Allergy Intermediate Hives Verified 08/02/25 18:06 Review of Systems 2 Review of Systems: Constitutional : No Weight loss, No Fever, No Chills, No Night Sweats, No Fatigue, No Malaise ENT/Mouth : No Hearing loss, No Ear Pain, No Nasal Congestion, No Sinus Pain, No Hoarseness, No sore throat, No Rhinorrhea, No Swallowing Difficulty Eyes: No Eye Pain, No Swelling, No Redness, No Foreign Body, No Discharge, No Vision Changes Cardiovascular : No Chest Pain, No SOB, No Dyspnea on Exertion, No Orthopnea, No Edema, No Palpitations Respiratory : No Cough, No Sputum, No Wheezing, No Smoke Exposure, No Dyspnea Gastrointestinal : No Nausea, No Vomiting, No Diarrhea, No Constipation, No abdominal Pain, complaining of lower abdominal pressure flank area, complaining of rectal bleeding, history of hemorrhoids recent Genitourinary : no irregular bleeding, No Dysuria, No Urinary Frequency, No Hematuria, No Urinary Incontinence, No Urgency, No Flank Pain, No Urinary Flow Changes, No Hesitancy Musculoskeletal : No joint pain, No Myalgias, No Joint Swelling Skin : No Skin Lesions, No rash Neuro : No Weakness, No Numbness, No Paresthesias, No Loss of Consciousness, No Dizziness, No Headache Psych : No Anxiety/Panic, No Depression, No SI/HI/AH/VH, No Social Issues, Heme/Lymph: No Bruising, No Bleeding,No Lymphadenopathy Endocrine : No Polyuria, No Polydipsia, No Temperature Intolerance PMFSH Past Medical History Medical History Lower abdominal pain Fatty liver Numbness Hemorrhoids with complication Gastroparesis Essential hypertension Left shoulder pain Type 2 diabetes mellitus Hyperparathyroidism Erosive esophagitis Hypertension Acute diarrhea Pre-op examination Cervical radiculopathy Rash of foot [place] albicans infection Cervicalgia Environmental allergies Hospital discharge follow-up MARY on CPAP Elevated red blood cell count Screening for hyperlipidemia Chronic pain syndrome Lumbar pain Encounter for annual routine gynecological examination Multiple air fluid levels of small intestine determined by X-ray Abdominal bloating Hypothyroid Sleep apnea Abdominal cramping Edema Anxiety with depression Chronic pain (Unknown) Left knee pain Hypothyroidism Bilateral shoulder pain Hyperlipidemia LDL goal <70 Degeneration, intervertebral disc, cervical Spondylosis of cervical spine at multiple levels without myelopathy Sleep apnea Renal calculi Incontinence Goiter Disc degeneration, lumbar Spondylosis of lumbar region without myelopathy or radiculopathy Arthropathy of facet joint Insomnia LUDY (generalized anxiety disorder) Moderately severe recurrent major depression Chronic pain syndrome Morbid (severe) obesity due to excess calories Fibromyalgia Small bowel motility disorder Chronic idiopathic constipation Asthma Surgical History History of hemorrhoidectomy (04/26/25) History of esophagogastroduodenoscopy (EGD) (01/02/25) History of knee replacement procedure of right knee History of hernia surgery Hx of colonoscopy History of esophagogastroduodenoscopy (EGD) History of cholecystectomy Delivery by section History of hysterectomy Family History Family History Father Past heart attack Anxiety Mother MOF (multiple organ failure) Brother HIV (human immunodeficiency virus infection) Sister Ovarian cancer Lupus Bone cancer Uterine cancer Tumor Daughter Guillain-Niland Sister Lupus History of open heart surgery Family/Other Depression FH: mental illness Maternal Aunt Breast cancer Maternal Aunt Tumor Social History Social History Household Members: None Household Members Other:: Daughter Housing: Apartment Are you a primary career consultant to a significant other at home: No Do you presently have visiting nurse or other home services: Yes Alcohol intake: never Patient Tobacco Use Status: Never used Tobacco Smoked in Last 30 Days: No e-Cigarette/Vaping Use: Never Used Second Hand Smoke Exposure: No Use of substances other than those prescribed or required for medical reasons: No Advance Directives: Yes Advance Directives on File: Yes Advance Directives Date on File: 12/08/21 service: No Current occupational status: unemployed and disabled Cognitive needs: Yes Hearing needs: No Vision needs: No Physical Exam 2 Exam: Exam: Appearance: Alert. Oriented X3. No acute distress. Eyes: Pupils equal, round and reactive to light. ENT: Pharynx normal. Neck: Normal inspection. Neck supple. No lymph nodes noted. No crepitus CVS: Normal heart rate and rhythm. Pulses normal. Normal S1 and S2 Respiratory: No respiratory distress. Breath sounds normal. No Wheezing. No rales Abdomen: Soft and nontender. No rigidity. No distention. No external hemorrhoids. Possible puff palpable internal hemorrhoids, no bleeding at this time. Brown stool. The digital rectal exam was limited due to patient's intolerance to palpation due to pain Skin: Skin warm and dry. Normal skin color. Normal skin turgor. Extremities: No lower extremity edema. No Lacerations. No Rash Neuro: Oriented X 3. No motor deficit. No sensory deficit. Moving all extremities. No slurred speech. CN 2 through 12 grossly intact Psych: calm, cooperative, normal affect Vital Signs: Vital Signs: Last Vital Signs Temp 98.2 F 08/03/25 00:44 Pulse 85 08/03/25 00:44 Resp 16 08/03/25 00:44 BP 149/67 H 08/03/25 00:44 Pulse Ox 96 08/03/25 00:44 O2 Del Method Room Air 08/03/25 00:44 BMI result Body Mass Index 45.0 Course Course Course Narrative: RmE: Patient 10 year female history of hemorrhoids presents to ED for rectal bleeding. Patient was informed by her surgeon who performed rectally 3 months ago to come to the ED for evaluation. Patient denies any abdominal pain. Patient complaining of chronic internal hemorrhoid bleed Labs and imaging pending Medications Administered Generic Name Dose Route Start Last Admin Trade Name Freq PRN Reason Stop Dose Admin Lidocaine 1 appl 08/02/25 21:52 08/02/25 23:13 Lidocaine 5 % Ointment 35 Gm TOPICAL 1 appl Q6H PRN Administration Perineal Discomfort Protocol Discontinued Medications Generic Name Dose Route Start Last Admin Trade Name Freq PRN Reason Stop Dose Admin Iohexol 100 ml 08/02/25 22:57 08/02/25 23:01 Iohexol 350 Mg/Ml 100 Ml Infus..Btl IV 08/02/25 22:58 100 ml ONCE ONE Administration Medical Decision Making Medical Decision Making [facility] Narrative: My interpretation of labs: Patient has chronic leukocytosis, normal/stable hemoglobin and hematocrit and platelets. No significant abnormality in patient's chemistry. LFTs within normal limits I reviewed patient's outpatient notes from surgery from yesterday. Plan: CT scan outpatient and follow-up with Dr. Lantigua. Since patient has a KI on chronic symptoms, we will proceed with a CT scan of the abdomen and pelvis with contrast. Patient agrees with plan. For pain control, patient was given lidocaine ointment On digital rectal exam, there was no blood in the perirectal area. As mentioned above, physical exam was difficult to do especially the digital rectal exam, as patient was complaining of perirectal pain. We attempted sending an occult blood to the lab. However, they said that there was not enough fecal material in the card. Overall, there was no blood on physical exam. My interpretation of labs: Patient's hematology and chemistry at baseline, patient is not anemic., normal LFTs, urinalysis negative for UTI CT scan of the abdomen does not show any acute abnormalities or rectal/perirectal abnormality Patient states that the lidocaine did not work well for pain. Patient requesting more pain medication. I discussed with the patient that I can give her stronger pain medication including narcotics. However, I discussed with the patient that if she is not careful and takes stool softeners, she may get constipated and when she has bowel movements, the pain may be quite significant. Patient decided not to use narcotics Follow-up with Dr. Lantigua Patient states that she felt a little bit lightheaded when she stood up. No chest pain or shortness of breath. Orthostatic vitals negative. Patient states that she feels better. Differential Diagnosis Differential Diagnoses: The differential diagnosis associated with the presentation includes (External hemorrhoids, internal hemorrhoids, colitis) Admission/Observation Consideration of admission/observation: Escalation of care including admission/observation considered (Given patient's level of discomfort, observation was considered) Lab Data [facility] Lab Attestation statement: I reviewed the patient's lab results. 08/02/25 18:23 08/02/25 18:23 Labs: Lab Results 08/02/25 08/02/25 Range/Units 18:23 22:01 WBC 12.2 H (4.8-10.8) X10*3/uL RBC 5.25 (4.20-5.50) X10*6/uL Hgb 12.6 (12.0-16.0) g/dl Hct 41.9 (37.0-47.0) % MCV 79.8 L (80.0-98.0) fL MCH 24.0 L (27.0-33.0) pg MCHC 30.1 L (31.0-35.0) g/dl RDW 17.2 H (11.0-16.0) % Plt Count 209 D (160-400) X10*3/uL MPV 10.9 (9.4-12.3) fL Immature Gran % (Auto) 1.3 H (0.0-0.4) % Neut % (Auto) 71.4 (45-73) % Lymph % (Auto) 19.1 L (20-40) % [place] % (Auto) 5.7 (2-11) % Eos % (Auto) 2.2 (0-4) % Baso % (Auto) 0.3 (0-2) % Lymph # (Auto) 2.3 (1.2-4.9) X10*3/uL [place] # (Auto) 0.7 (0.1-1.2) X10*3/uL Eos # (Auto) 0.3 (0.0-0.4) X10*3/uL Baso # (Auto) 0.0 (0.0-0.2) X10*3/uL Abs Immat Gran (auto) 0.16 H (0.00-0.03) X10*3/uL Absolute Neuts (auto) 8.7 H (2.0-8.3) x10*3/uL Absolute Nucleated RBC 0.000 (0.0-0.012) X10*3/uL Nucleated RBC % (auto) 0.0 (0.0-0.2) /100WBC Sodium 142 (135-145) mmol/L Potassium 4.6 (3.3-5.1) mmol/L Chloride 109 H (96-108) mmol/L Carbon Dioxide 27 (22-29) mmol/L Anion Gap 11 L (12-20) BUN 17 H (9-16) mg/dL Creatinine 0.80 (0.5-1.4) mg/dL Estim Creat Clear Calc 96.1 Estimated GFR > 60 Random Glucose 98 (60-115) mg/dL Calcium 9.4 (8.4-10.2) mg/dL Total Bilirubin 0.3 (0.0-1.0) mg/dL AST 14 (5-31) U/L ALT 14 (0-31) U/L Alkaline Phosphatase 105 (39-117) U/L Total Protein 7.5 (6.5-8.0) g/dL Albumin 4.0 (3.5-5.0) g/dL Urine Color Yellow Urine Appearance Clear Urine pH 5.0 (5.0-9.0) Ur Specific [place] >= 1.030 H (1.005-1.025) Urine Protein Negative (Neg-Trace) mg/dL Urine Glucose (UA) Negative (Negative) mg/dL Urine Ketones Negative (Negative) mg/dL Urine Blood Negative (Negative) Urine Nitrite Negative (Negative) Ur Leukocyte Esterase Negative (Negative) Independent Interpretation I performed an independent interpretation of an: CT Scan Radiology Impression Discussion of test interpretation with radiology: I have reviewed the radiologist's reading. Radiologist Impression: Stable significant elevation of the right hemidiaphragm with associated compressive atelectasis in the right lung base. No pleural effusion. The gallbladder is surgically absent. No biliary ductal dilatation. The liver, spleen, pancreas, adrenal glands and kidneys are unremarkable. No ureteral stones and no hydronephrosis or hydroureter. No perinephric stranding. No bowel obstruction, pneumoperitoneum, or pneumatosis. Normal appendix. No free fluid or loculated fluid collection. No rectal or perirectal abnormality. Previous hysterectomy. Urinary bladder within normal limits. Abdominal aorta normal in size No acute fracture. Degenerative disc disease at L5-S1. IMPRESSION: 1. No acute findings. No rectal or perirectal abnormality. Critical Care Time Critical Care Time Critical Care Time: Yes Total Critical Care Time: 35 Attestation: I have personally provided critical care time. Time includes review of lab data, radiology results, discussion with consultants, and monitoring for potential decompensation. Intervention performed as documented. Discharge Plan Discharge Clinical Impression: Pain in rectum Patient Disposition: Home, Self-Care Instructions: Rectal Pain (ED), Sitz Bath (DC) Additional Instructions: Please follow-up with your primary care physician tomorrow. If you have any worsening or new symptoms, please return to the emergency room or call 911 Prescriptions: No Action (DME) ear thermometer Misc See Rx Instructions .Route Qty: 6 0RF Rx Instructions: As directed (DME) BP monitor large See Rx Instructions .Route .MEDSUPPLY Qty: 1 0RF Rx Instructions: As directed (DME) blood pressure monitor Kit See Rx Instructions .Route Qty: 1 0RF Rx Instructions: Use as needed (DME) blood pressure test kit-large Kit See Rx Instructions .ROUTE .MEDSUPPLY Qty: 1 0RF Rx Instructions: As directed (DME) recliner See Rx Instructions .Route .MEDSUPPLY Qty: 1 0RF Rx Instructions: As directed (DME) pen needle, diabetic [BD Rosario 2nd Gen Pen Needle] 32 gauge x 5/32 needle See Rx Instructions .Route Qty: 100 3RF Rx Instructions: use 2x daily As directed ondansetron 4 mg tablet,disintegrating 4 mg PO Q8H PRN (Reason: Nausea) 30 Days Qty: 90 0RF nystatin 100,000 unit/gram powder 1 appl topical DAILY 14 Days Qty: 30 1RF ferrous sulfate 325 mg (65 mg iron) tablet 325 mg PO DAILY 90 Days Qty: 90 1RF magnesium oxide 400 mg (241.3 mg magnesium) tablet 400 mg PO BEDTIME 90 Days Qty: 90 1RF (DME) shower chair See Rx Instructions .Route .MEDSUPPLY Qty: 1 0RF Rx Instructions: As directed (DME) toilet safety frame See Rx Instructions .Route .MEDSUPPLY Qty: 1 0RF Rx Instructions: As directed insulin glargine [Lantus Solostar U-100 Insulin] 100 unit/mL (3 mL) insulin pen 15 unit subcut QAM Qty: 15 3RF insulin lispro [Humalog KwikPen Insulin] 100 unit/mL insulin pen 5 unit subcut DAILY@1700 Qty: 15 3RF Rx Instructions: with supper hyoscyamine sulfate 0.125 mg tablet, sublingual 0.125 mg sublingual Q2-4H PRN (Reason: for indigestion) Qty: 60 0RF rizatriptan 10 mg tablet 10 mg PO ONCE PRN (Reason: migraine headache) 30 Days Qty: 5 3RF meclizine 25 mg tablet 25 mg PO DAILY PRN (Reason: dizziness) 90 Days Qty: 90 0RF atorvastatin 10 mg tablet 10 mg PO BEDTIME Qty: 90 1RF acetaminophen 650 mg tablet extended release 650 mg PO Q8H PRN (Reason: arthritis) 30 Days Qty: 90 1RF (DME) heating pads [Advocate Heating Pad] Pad See Rx Instructions .Route Qty: 1 0RF Rx Instructions: As directed cholecalciferol (vitamin D3) 50 mcg (2,000 unit) capsule 50 mcg PO BEDTIME Qty: 90 0RF metoprolol succinate 50 mg tablet extended release 24 hr 50 mg PO DAILY 90 Days Qty: 90 1RF (DME) FreeStyle Test Strip See Rx Instructions .Route Qty: 300 3RF Rx Instructions: Use 1 test strip 4x a day to monitor blood sugars (DME) blood-glucose meter [FreeStyle Lite Meter] Kit See Rx Instructions .Route Qty: 1 0RF Rx Instructions: As directed to monitor blood sugars 4x a day (DME) lancets [FreeStyle Lancets] 28 gauge misc See Rx Instructions .Route Qty: 300 3RF Rx Instructions: use to monitor blood sugars 4x a day metoclopramide HCl 10 mg tablet 10 mg PO TIDAC Qty: 90 0RF (DME) FreeStyle Julianne 3 Plus Sensor Device See Rx Instructions .MEDSUPPLY Qty: 2 5RF Rx Instructions: Use daily As directed to monitor glucose (DME) FreeStyle Juilanne 3 [place] Misc See Rx Instructions .MEDSUPPLY Qty: 1 0RF Rx Instructions: Use daily As directed to monitor blood glucose gabapentin 300 mg capsule 300 mg PO .nightly 90 Days Qty: 90 1RF levothyroxine 112 mcg tablet 112 mcg PO DAILY@0600 Qty: 90 1RF baclofen 10 mg tablet 10 mg PO BID PRN (Reason: muscle spasm) 30 Days Qty: 60 1RF hydrocortisone [Proctosol HC] 2.5 % cream with perineal applicator 1 appl SD BID-QID PRN (Reason: hemorrhoids) Qty: 30 0RF Trulicity 1.5 mg/0.5 mL pen injector 1.5 mg subcut QWEEK Qty: 2 0RF cetirizine [All Day Allergy (cetirizine)] 10 mg tablet 10 mg PO DAILY PRN (Reason: allergy symptoms) 10 Days Qty: 10 0RF pantoprazole 40 mg tablet,delayed release (DR/EC) 40 mg PO BID Qty: 60 3RF Acne Control (salicylic acid) 2 % cleanser 1 appl topical Q OTHER DAY PRN (Reason: acne) 30 Days Qty: 237 0RF albuterol sulfate 2.5 mg /3 mL (0.083 %) solution for nebulization 2.5 mg inhalation Q6H PRN (Reason: shortness of breath or wheezing) 30 Days Qty: 180 11RF albuterol sulfate [Ventolin HFA] 90 mcg/actuation HFA aerosol inhaler 1 puff PO Q4H PRN (Reason: for wheezing) 30 Days Qty: 54 1RF fluticasone furoate-vilanterol [Breo Ellipta] 200-25 mcg/dose blister with device 1 inh inhalation DAILY 30 Days Qty: 1 0RF docusate sodium [Colace] 100 mg capsule 100 mg PO BID PRN (Reason: Constipation) loperamide [Anti-Diarrheal (loperamide)] 2 mg capsule 2 mg PO Q6H PRN (Reason: loose stool) Qty: 16 0RF promethazine [Promethegan] 25 mg suppository 25 mg SD Q6H PRN (Reason: nausea and vomiting) Qty: 20 0RF clonazepam 1 mg tablet 0.5 mg PO TID PRN (Reason: anxiety) Rx Instructions: TAKE 1/2 TABLET BY MOUTH THREE TIMES A DAY NEEDED ANXIETY (REPLACES LORAZEPAM) hydroxyzine HCl 50 mg tablet 50 mg PO TID trazodone 150 mg tablet 150 mg PO BEDTIME paroxetine HCl 40 mg tablet 40 mg PO DAILY polyethylene glycol 3350 17 gram Powder In Packet 17 g PO BID Qty: 60 0RF docusate sodium [Colace] 100 mg capsule 100 mg PO BID Qty: 60 2RF tramadol 50 mg tablet 50 mg PO TID PRN (Reason: pain) Qty: 15 0RF (DME) nebulizers Kit See Rx Instructions .Route Rx Instructions: As directed (DME) CPAP Machine/Device Device See Rx Instructions .Route Rx Instructions: As directed glucose [Dex4 Glucose] 4 gram tablet,chewable 16 g PO Q15M PRN (Reason: hypoglycemia) Qty: 100 0RF Rx Instructions: until symptoms of low blood sugar are controlled Referrals: Jason Lantigua MD [Physician, General Surgery] Print Language: Hebrew
[2025-08-02 22:22] LABS: Appearance Urine Clear; Glucose Urine UA Negative (Negative); PH 5.0 (5.0-9.0); Specific Gravity - Urine >= 1.030 (1.005-1.025)
--- NOTE | 2025-08-02 22:48 | PC.NURSE ---
delay in CT scan as pt is a hard stick. RN tried twice with no success. US guided #20 eventually placed in LFA.
[2025-08-02] MEDS: iohexoL 350 MG/ML 100 ML INFUS..BTL IV (23:01)
[2025-08-03 00:39] VITALS: BP 147/62; PULSE 83
[2025-08-03 00:40] VITALS: BP 149/67; PULSE 85
[2025-08-03 00:42] VITALS: BP 153/81; PULSE 99
[2025-08-03 00:44] VITALS: BP 149/67; PULSE 85; RESP 16; TEMP 36.8; O2SAT 96
[2025-08-03 02:22] VITALS: BP 149/67; PULSE 85; RESP 16; TEMP 36.8; O2SAT 96
== END 2025-08-03 02:22 | disposition home or self-care (01) ==
PROVIDERS: Physician Assistant; Emergency Provider Emergency Medicine; PCP Internal Medicine
DX: K62.89 Other specified diseases of anus and rectum (principal); I10 Essential (primary) hypertension; Z79.899 Other long term (current) drug therapy; Z98.890 Other specified postprocedural states
CPT/HCPCS: 36415; 74177; 80053; 81003; 85025; 99284; 99285; Q9967

== ENCOUNTER → 2025-08-02 21:56 | Outpatient (BNV) | payer OTHER, SELFPAY | PROVIDERS: Emergency Provider Emergency Medicine; PCP Internal Medicine; Visit Provider Specialist | DX: R10.20 Pelvic and perineal pain unspecified side (principal) | CPT/HCPCS: 74177 ==

== ENCOUNTER 2025-08-13 09:36 | Outpatient (AMB) | payer OTHER, SELFPAY ==
--- NOTE | 2025-08-13 09:38 | MHC.OFFVIS ---
Vital Signs 08/13/25 09:40 Height 5 ft 7 in Weight 271 lb 2.697 oz BMI 42.5 BP 127/67 Blood Pressure Location Lt brachial Position Sitting Pulse 93 Intake Visit Reasons: pain in abd, voimiting Intake Note: Bonnie presents in the office as a follow up for pains in the stomach and vomiting. CC: States her stomach is hurting a lot - she states she was 262 last week. She does not have any irregular bowel movements. IS having pains in the LRQ states when she has a BM she has a bright red lood when she wipes. 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 Allergies adhesive tape (ADHESIVE TAPE) Allergy (Intermediate, Verified 08/02/25 18:06) RASH amoxicillin (AMOXICILLIN) Allergy (Intermediate, Verified 08/02/25 18:06) Hives ibuprofen (From Motrin) Allergy (Intermediate, Verified 08/02/25 18:06) Hypertension latex Allergy (Intermediate, Verified 08/02/25 18:06) Rash Penicillins Allergy (Intermediate, Verified 08/02/25 18:06) Hives HPI HPI pain in abd, voimiting: Details: 60-year-old female with hx of hypertension, mixed hyperlipidemia, mood disorder, insulin-dependent diabetes mellitus, hypothyroidism, gastroesophageal reflux disease, congestive heart failure with preserved EF, MARY on CPAP, asthma not on home oxygen who I am seeing for f/u for undifferentiated abdominal pain. RECAP: Chronic abdominal pain, with no obvious cause from Ix multiple ED visits and scans Prior investigations: MRCP: 01/26- no gallstones EGD/[facility] 01/2025-- colonic dysmotility, gastritis, esophagitis EGD and colonoscopy with colonic dysmotility, internal hemorrhoids and cecal polyp note 2022 C diff in the past treated successfully chronic leukocytosis BCR-ABL FISH test neg ANCA, CARLOS, IG levels nml RF and CCP neg trial of colchicine was unsuccessful INTERIM: Having similar pains to past had hemorrhoid surgery and uncomfortable since then, 3 months ago has nausea and vomiting bouts on and off seeing blood in stool, feels stools are abn she has burning inside her rectum her CRP remains elevated EXAM: GENERAL: The patient is unwell VITAL SIGNS:see workflow HEENT: Nonicteric sclerae, PERRLA, EOMI. Oropharynx clear. Moist mucous membranes. Conjunctivae appear well perfused. No thyroid mass. CHEST: Chest wall is nontender. HEART: Regular rate and rhythm without murmurs. LUNGS: Clear to auscultation bilaterally. ABDOMEN: Soft, positive bowel sounds, diffusely tender, no organomegaly.no flank tenderness SKIN: No rash, no excessive bruising, petechiae, or purpura. NEUROLOGIC: Cranial nerves II-XII intact without motor/sensory deficit. Psych: normal affect MS: using walking stick, tender joints and swollen A/P: 1/ Undifferentiated abdo pain, with joint pains, and abn bowle habits, raised CRP, suspect subacute IBD at this point ddx: vasculitis, lupus, infiltrative disease liek sarcoid PLAN: 1/ repeat colo, capsule endo, otherwise push enteroscopy 2/ next time 2 d clears and colowrap 3/ will commence remicade possibly given her ongoing GI sx and elevated crp [facility] Medical History Lower abdominal pain Fatty liver Numbness Hemorrhoids with complication Gastroparesis Essential hypertension Left shoulder pain Type 2 diabetes mellitus Hyperparathyroidism Erosive esophagitis Hypertension Acute diarrhea Pre-op examination Cervical radiculopathy Rash of foot [place] albicans infection Cervicalgia Environmental allergies Hospital discharge follow-up MARY on CPAP Elevated red blood cell count Screening for hyperlipidemia Chronic pain syndrome Lumbar pain Encounter for annual routine gynecological examination Multiple air fluid levels of small intestine determined by X-ray Abdominal bloating Hypothyroid Sleep apnea Abdominal cramping Edema Anxiety with depression Chronic pain (Unknown) Left knee pain Hypothyroidism Bilateral shoulder pain Hyperlipidemia LDL goal <70 Degeneration, intervertebral disc, cervical Spondylosis of cervical spine at multiple levels without myelopathy Sleep apnea Renal calculi Incontinence Goiter Disc degeneration, lumbar Spondylosis of lumbar region without myelopathy or radiculopathy Arthropathy of facet joint Insomnia LUDY (generalized anxiety disorder) Moderately severe recurrent major depression Chronic pain syndrome Morbid (severe) obesity due to excess calories Fibromyalgia Small bowel motility disorder Chronic idiopathic constipation Asthma Surgical History History of hemorrhoidectomy (04/26/25) History of esophagogastroduodenoscopy (EGD) (01/02/25) History of knee replacement procedure of right knee History of hernia surgery Hx of colonoscopy History of esophagogastroduodenoscopy (EGD) History of cholecystectomy Delivery by section History of hysterectomy Family History Father Past heart attack Anxiety Mother MOF (multiple organ failure) Brother HIV (human immunodeficiency virus infection) Sister Ovarian cancer Lupus Bone cancer Uterine cancer Tumor Daughter Guillain-[place] Sister Lupus History of open heart surgery Family/Other Depression FH: mental illness Maternal Aunt Breast cancer Maternal Aunt Tumor Social History Household Members: None Household Members Other:: Daughter Housing: Apartment Are you a primary primary care nurse practitioner to a significant other at home: No Do you presently have visiting nurse or other home services: Yes 75 years or older and lives alone: No Alcohol intake: never Patient Tobacco Use Status: Never used Tobacco e-Cigarette/Vaping Use: Never Used Second Hand Smoke Exposure: No Advance Directives Date on File: 12/08/21 service: No Current occupational status: unemployed and disabled Cognitive needs: Yes Hearing needs: No Vision needs: No Physical Exam Vital Signs: Last Vital Signs Pulse 93 08/13/25 09:40 BP 127/67 08/13/25 09:40 BMI result Body Mass Index 42.5 Assessment & Plan Assessment & Plan (1) Abdominal pain: Code(s): R10.9 - Unspecified abdominal pain Category: Medical Qualifiers: Abdominal location: right lower quadrant Qualified Code(s): R10.31 - Right lower quadrant pain Plan: as above (2) Abnormal bowel habits: Code(s): R19.8 - Other specified symptoms and signs involving the digestive system and abdomen Category: Medical Plan: as above Orders: Orders C Reactive Protein Today R10.31 - Right lower quadrant pain, R19.8 - Other specified symptoms and signs involving the digestive system and abdomen Erythrocyte Sedimentation Rate Today R10.31 - Right lower quadrant pain, R19.8 - Other specified symptoms and signs involving the digestive system and abdomen Comprehensive Met. Panel Today K75.81 - Nonalcoholic steatohepatitis (CARROLL), R10.31 - Right lower quadrant pain, R19.8 - Other specified symptoms and signs involving the digestive system and abdomen Immunoglobulin G Subclasses Today R10.31 - Right lower quadrant pain, R19.8 - Other specified symptoms and signs involving the digestive system and abdomen T Spot TB Today R10.31 - Right lower quadrant pain, R19.8 - Other specified symptoms and signs involving the digestive system and abdomen Hepatitis A,B,C Profile Today R10.31 - Right lower quadrant pain, R19.8 - Other specified symptoms and signs involving the digestive system and abdomen, Z11.59 - Encounter for screening for other viral diseases Zinc Today R10.31 - Right lower quadrant pain, R19.8 - Other specified symptoms and signs involving the digestive system and abdomen Vitamin A Today R10.31 - Right lower quadrant pain, R19.8 - Other specified symptoms and signs involving the digestive system and abdomen Vitamin B12 and Folate Today R10.31 - Right lower quadrant pain, R19.8 - Other specified symptoms and signs involving the digestive system and abdomen Smooth Muscle Antibody Today R10.31 - Right lower quadrant pain, R19.8 - Other specified symptoms and signs involving the digestive system and abdomen C1 Esterase Inhibitor Today R10.31 - Right lower quadrant pain, R19.8 - Other specified symptoms and signs involving the digestive system and abdomen Immunoglobulins,IgG IgA IgM Today R10.31 - Right lower quadrant pain, R19.8 - Other specified symptoms and signs involving the digestive system and abdomen Complete Blood Count Auto Diff Today R10.31 - Right lower quadrant pain, R19.8 - Other specified symptoms and signs involving the digestive system and abdomen Creatine Kinase Total Today R10.31 - Right lower quadrant pain, R19.8 - Other specified symptoms and signs involving the digestive system and abdomen Ferritin Today R10.31 - Right lower quadrant pain, R19.8 - Other specified symptoms and signs involving the digestive system and abdomen Lactoferrin, Fecal, Quant. Today K51.50 - Left sided colitis without complications, R10.31 - Right lower quadrant pain, R19.8 - Other specified symptoms and signs involving the digestive system and abdomen ANCA Vasculitides Today R10.31 - Right lower quadrant pain, R19.8 - Other specified symptoms and signs involving the digestive system and abdomen Aldolase Today R10.31 - Right lower quadrant pain, R19.8 - Other specified symptoms and signs involving the digestive system and abdomen Vitamin B1 Today R10.31 - Right lower quadrant pain, R19.8 - Other specified symptoms and signs involving the digestive system and abdomen CARLOS Reflex Titer and Pattern Today R10.31 - Right lower quadrant pain, R19.8 - Other specified symptoms and signs involving the digestive system and abdomen, R79.82 - Elevated C-reactive protein (CRP) Histamine Plasma Today R10.31 - Right lower quadrant pain, R19.8 - Other specified symptoms and signs involving the digestive system and abdomen Immunoglobulin E Today R10.31 - Right lower quadrant pain, R19.8 - Other specified symptoms and signs involving the digestive system and abdomen C1 Inhibitor Protein Today R10.31 - Right lower quadrant pain, R19.8 - Other specified symptoms and signs involving the digestive system and abdomen Medications: New peg 3350-electrolytes [id number] -5.86 gram (Golytely) until fecal effluent is clear 240 mL PO Q10M 4,000 mL 0RF Coding Level of Care Code Est Pt Level 4 (28037) Diagnoses Right lower quadrant abdominal pain R10.31 Abdominal location: right lower quadrant Abnormal bowel habits R19.8
[2025-08-13 09:40] VITALS: BP 127/67; PULSE 93; BMI 42.5
== END 2025-08-13 11:05 | disposition home or self-care (01) ==
LOC: HO.HGI 09:37
PROVIDERS: PCP Internal Medicine; Visit Provider Internal Medicine Gastroenterology
DX: R10.31 Right lower quadrant pain (principal); R19.8 Other specified symptoms and signs involving the digestive system and abdomen
CPT/HCPCS: 99214

== ENCOUNTER → 2025-08-13 09:36 | Outpatient (BNVA) | payer OTHER, SELFPAY | PROVIDERS: PCP Internal Medicine; Visit Provider Internal Medicine Gastroenterology | DX: R10.31 Right lower quadrant pain (principal); R19.8 Other specified symptoms and signs involving the digestive system and abdomen; E11.9 Type 2 diabetes mellitus without complications; Z79.4 Long term (current) use of insulin; Z87.19 Personal history of other diseases of the digestive system; Z98.890 Other specified postprocedural states | CPT/HCPCS: 99212 ==